=== PATIENT | female | born 1945 | race Caucasian/White ===

== ENCOUNTER 2017-09-23 07:07 | Inpatient (IN) | payer OTHER ==
[2017-09-23 07:35] VITALS: BMI 28.3
--- NOTE | 2017-09-23 07:44 | PDOC ---
Attending Attestation - Resident Resident Name: Kip Manzanares - HPI HPI: 09/25/17 19:36 Pt presents to the ED complaining of a one day history of substernal chest pain that is made worse by movement of her arms or torso. Denies shortness of breath. Extensive cardiac history as described above. - Physicial Exam PE: 09/25/17 19:39 Agree with resident exam. Pain is reproduced with movement of the arms. Lungs are clear. - Medical Decision Making 09/25/17 19:39 Pt presents to the ED complaining of chest pain. Extensive cardiac history. EKG shows no evidence of ischemia. Pain may be muscular, but given her cardaic history, will admit to medicine for observation and serial enzymes.
[2017-09-23] MEDS ORDERED: SODIUM CHLORIDE 1,000 ML IV STA (08:27)
--- NOTE | 2017-09-23 08:32 | PDOC ---
History of Present Illness - General Chief Complaint: Chest Pain Stated Complaint: CHEST & BACK PAIN Time Seen by Provider: 09/23/17 07:44 - History of Present Illness Initial Comments: 09/23/17 08:24 72 yo F with h/o HTN, HLD, CVA, Cardiac pacemaker placement ( 2010), and A-fib ( on Eliquis and Plavix) who presents with chest and back pain. Patient reports onset of worsening, unremitting, retrosternal and left sided chest pressure/ tightness beginning 0900 yesterday AM ( 09/22) while sitting down watching television. Associated with SOB, lightheadedness, fatigue, and nausea w/out vomiting. Pain radiates to intrascapular region, neck, and jaw. Aggravated with deep inhalation. Attempted analgesia with Tylenol, with no relief. Recently recovering from GI type illness/diarrhea with multiple loose watery stools since Wednesday (09/17). Denies palpitation, diaphoresis, fevers/chills, cough, wheezing, LOC, lightheadedness, acute weakness, urinary complaints, blood per rectum, abdominal pain. Allergic to Diclofenac, Penicillin, ASA. No h/o cardiac stent or CABG. PCP Dr. Sony Johnson. Dehydrator Tender Nazario. EKG (08/14/14) Atrial paced rhythm with LBBB. Past History - Past Medical History Allergies/Adverse Reactions: Allergies Allergy/AdvReac Type Severity Reaction Status Date / Time aspirin Allergy Severe Verified 09/23/17 07:32 Penicillins Allergy Severe Verified 09/23/17 07:32 diclofenac Allergy Verified 09/23/17 07:32 shellfish derived Allergy Verified 09/23/17 07:32 iv contrast Allergy Uncoded 09/23/17 07:32 Home Medications: Ambulatory Orders Apixaban [Eliquis] 5 mg PO BID 09/23/17 Carvedilol 25 mg PO DAILY 09/23/17 Clopidogrel Bisulfate [Clopidogrel] 75 mg PO DAILY 09/23/17 Irbesartan [Avapro (Nf) -] 300 mg PO DAILY 09/23/17 Linagliptin/Metformin HCl [Jentadueto 2.5 mg-1000 mg Tab] 1 each PO DAILY Nifedipine [Adalat cc] 60 mg PO DAILY 09/23/17 Cardiac Disorders: Yes (PACEMAKER, AAA 5CM, AFIB) CVA: Yes (RIGHT ARM AND LEG WEAKNESS RESIDUAL) COPD: No Diabetes: Yes 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 No weakness. HEAD, EYES, EARS, NOSE AND THROAT: No change in vision. No ear pain or discharge. No sore throat.- CARDIOVASCULAR: + chest pain and shortness of breath RESPIRATORY: No cough, wheezing, or hemoptysis. GASTROINTESTINAL:+ nausea, and diarrhea. No vomiting, constipation. GENITOURINARY: No dysuria, frequency, or change in urination. MUSCULOSKELETAL: + Chest, neck, and back pain No joint or muscle swelling. SKIN: No rash NEUROLOGIC: + lightheadedness. No headache, vertigo, loss of consciousness, or change in strength/sensation. ENDOCRINE: No increased thirst. No abnormal weight change HEMATOLOGIC/LYMPHATIC: No anemia, easy bleeding, or history of blood clots. ALLERGIC/IMMUNOLOGIC: No hives or skin allergy. *Physical Exam - Vital Signs Last Vital Signs Temp Pulse Resp BP Pulse Ox 98.4 F 64 20 155/60 98 09/23/17 07:32 09/23/17 07:32 09/23/17 07:32 09/23/17 07:32 09/23/17 07:32 - Physical Exam Comments: 09/23/17 08:39 GENERAL: Awake, alert, and fully oriented, in no acute distress HEAD: No signs of trauma, normocephalic, atraumatic EYES: PERRLA, EOMI, sclera anicteric, conjunctiva clear ENT: hearing grossly normal, nares patent, oropharynx clear without exudates. Moist mucosa NECK: Normal ROM, supple, no lymphadenopathy, JVD, or masses LUNGS: No distress, speaks full sentences, clear to auscultation bilaterally HEART: Regular rate and rhythm, normal S1 and S2, no murmurs, rubs or gallops, peripheral pulses normal and equal bilaterally. ABDOMEN: Soft, nontender, normoactive bowel sounds. No guarding, no rebound. No masses EXTREMITIES : Slight 1 + pitting edema BL LE. L sided shoulder pain with active and passive ROM. Normal inspection, Normal range of motion, No clubbing or cyanosis. NEUROLOGICAL: Baseline L UE/LE gross motor weakness. (1/5). Cranial nerves II through XII grossly intact. Normal speech, normal gait. SKIN: Warm, Dry, normal turgor, no rashes or lesions noted. Heart Score/ECG Review - History History: Slightly suspicious - Electrocardiogram EKG: Non specific repolarization disturbance - Age Age: >/= 65 - Risk Factors Risk Factors Heart Score: Yes Hx Hypercholesterolemia, Yes Hx Hypertension, Yes Hx Diabetes, Yes Positive family hx of cardiac disease, Yes Hx Obesity Based on the list above the patient has:: >/=3 risk factors or Hx atherosclerotic disease - Troponin Troponin: </= normal limit - Score Heart Score - Total: 5 - ECG Impressions Normal ECG: No ED Treatment Course - LABORATORY CBC & Chemistry Diagram: 09/23/17 09:00 09/23/17 09:00 - RADIOLOGY Radiology Studies Ordered: Category Date Time Status CXRPORT [CHEST X-RAY PORTABLE*] [RAD] Stat Radiology 09/23/17 08:24 Ordered Medical Decision Making - Medical Decision Making 09/23/17 08:40 72 yo F with h/o HTN, HLD, CVA, Cardiac pacemaker placement ( 2010), and A-fib ( on Eliquis and Plavix) who acute onset of worsening, unremitting, retrosternal and left sided chest pressure/tightness beginning 0900 yesterday AM ( 09/22) while sitting down watching television. Associated with SOB, lightheadedness, fatigue, and nausea w/out vomiting. Pain radiates to intrascapular region, neck, and jaw. Aggravated with deep inhalation. No other asx. complaints. Denies palpitation, diaphoresis, fevers/chills. Physical exam reveals hemodynamic stability and left shoulder pain elicited with active and passive ROM. No h/o cardiac stent or CABG. Will obtain caridac eval to r/o ACS /AL. Pain reproducible with MSK component. ED Course: 09/23/17 08:55 CBC: Unremarkable. Trop Neg BNP: 842 UA: Neg EKG (08/14/14) Atrial paced rhythm with LBBB. CXR: No acute cardiopulmonary pathology. EKG: Atrial paced rhtyhm with no signs of RICARDO, STD, T wave inversion with LBBB. 09/23/17 09:[address] Lange. He believes pain is likely MSK, but will admit for Tele/Obs for 09/23/17 10:[address] Goddard ( admitting for Dr. Sony Johnson). We will admit to Tele/ Obs. 09/23/17 10:06 2 gm IV Morphine, 1 L NS, 4 mg Zofran Heart Score 5 with 13 % Risk MACE. *DC/Admit/Observation/Transfer Diagnosis at time of Disposition: Chest pain at rest - Discharge Dispostion Condition at time of disposition: Stable Admit: Yes - Referrals Referrals: Sony Johnson MD [Primary Care Provider] - - Patient Instructions - Post Discharge Activity
--- NOTE | 2017-09-23 09:10 | CON.CARD ---
Cardiology Consult (text) - Consultation Consultation Note: Cardiology Consult Dictated IMP: Chronic HTN DM Prior CVA PAF , PPM Moderate renal artery stenosis Probable musculoskeletal chest pain REC: Pain is primarily right scapula, worse with positional change and manipulation of the right arm. ?muscle strain vs tendonopathy? Doubt cardiac. -Will cycle cardiac enzymes and check echo -Continue home BP meds. -Work up of likely MSK arm/shoulder pain as per PMD
[2017-09-23] MEDS ORDERED: morphine CARPU-JECT 2 MG/1 ML DISP.SYRIN IVPUSH ONE ×2 (09:14→10:46)
[2017-09-23] MEDS ORDERED: morphine SULFATE 4 MG/ML VIAL ONE ×3 (09:34→22:10)
[2017-09-23 09:40] LABS: ALBUMIN 3.5 g/dl (3.4-5.0); ANION GAP 9 (8-16); CALCIUM 8.7 mg/dL (8.5-10.1); CO2 24 mmol/L (21-32); CREATININE 1.1 mg/dL (0.55-1.02); GLUCOSE,RANDOM 139 mg/dL (74-106)
[2017-09-23 09:43] LABS: BASOPHIL 0.6 % (0-2.0); EOSINOPHIL 0.3 % (0-4.5); MCH 30.3 pg (25.7-33.7); MCHC 33.2 g/dl (32.0-36.0); MEAN CELL VOLUME 91.2 fl (80-96); MEAN PLT VOLUME 8.4 fl (7.5-11.1); NEUTROPHILS 65.5 % (42.8-82.8); PLATELET COUNT 260 K/MM3 (134-434); RDW 13.2 % (11.6-15.6); WHITE BLOOD COUNT 9.8 K/mm3 (4.0-10.0)
[2017-09-23 09:44] LABS: CPK 87 IU/L (26-192); TROPONIN I < 0.02 ng/ml (0.00-0.05)
--- NOTE | 2017-09-23 09:49 | CONS ---
DATE OF CONSULTATION: 09/23/2017 REQUESTING PHYSICIAN: Adry Sosa MD, in the ER. HISTORY OF PRESENT ILLNESS: The patient is a 72-year-old female known to me from the office with a complicated past medical history, including hypertension, moderate renal artery stenosis, diabetes, prior CVA, paroxysmal atrial fibrillation, on Eliquis, with a permanent pacemaker. She comes to the emergency room with several hours of right-sided scapular pain worse with positional movement, lifting the arm, and with deep breathing. It began last night when she woke up feeling her right arm stuck underneath her while asleep. In the emergency department, blood pressure was 155/60, oxygen saturation 98 on room air. She denies nausea, vomiting, or diaphoresis. She denies any recent exertional anginal symptoms. She denies palpitations or syncope. PAST MEDICAL HISTORY: Is as above. ALLERGIES: She is allergic to PENICILLIN, ASPIRIN, and SHELLFISH. HOME MEDICATIONS: Include Prilosec, Procardia, metformin, Jentadueto, irbesartan, Plavix 75 mg daily, carvedilol and Eliquis, Lipitor. FAMILY HISTORY: Noncontributory. SOCIAL HISTORY: Nonsmoker. PHYSICAL EXAMINATION: General: No acute distress. Vital Signs: Afebrile, temperature 98.4, pulse 64, paced rhythm, no acute EKG changes, blood pressure 155/60, O2 saturation 98 on room air, pulses 2+ and symmetric bilaterally. Neck: No carotid bruits. Heart: S1, 2 regular. Chest: Clear. No rales or wheezing. Abdomen: Soft. Extremities: Edema 1+ bilaterally. IMAGING: Chest x-ray showed no infiltrates. LABORATORIES: Currently pending, including troponin. IMPRESSION: 1. Hypertension. 2. Moderate renal artery stenosis. 3. Chronic diabetes. 4. Prior cerebrovascular accident. 5. Paroxysmal atrial fibrillation, on Eliquis, history of pacemaker. 6. Atypical chest pain, shoulder pain - probably musculoskeletal. PLAN: 1. Serial cardiac enzymes and echocardiogram to rule out pericardial effusion. 2. Continue home blood pressure medications. 3. Workup of likely musculoskeletal pain as per PMD. The pain is certainly reproducible on exam with manipulation of the shoulder causing pain in the shoulder and behind the shoulder blade and also radiating anteriorly. This may be a muscle pull or some sort of tendinopathy; trial of NSAIDs and imaging as per PMD. Will follow. Sean DAWSON/[id number]
[2017-09-23 09:51] LABS: ALK PHOS 100 U/L (45-117); BILIRUBIN,TOTAL 0.6 mg/dL (0.2-1.0); SGPT/ALT 22 U/L (12-78); TOT PROT 7.1 g/dl (6.4-8.2)
[2017-09-23 09:52] LABS: SGOT/AST 18 U/L (15-37)
[2017-09-23 09:52] LABS: URINE APPEARANCE CLEAR; URINE BILIRUBIN NEGATIVE (NEGATIVE); URINE BLOOD NEGATIVE (NEGATIVE); URINE COLOR STRAW; URINE GLUCOSE (UA) NEGATIVE (NEGATIVE); URINE KETONE NEGATIVE (NEGATIVE); URINE NITRITE NEGATIVE (NEGATIVE); URINE PROTEIN NEGATIVE (NEGATIVE); URINE UROBILINOGEN NEGATIVE mg/dL (0.2-1.0)
[2017-09-23 10:09] LABS: INR 1.41 (0.82-1.09); PROTHROMBIN TIME (PATIENT) 15.9 SEC (9.98-11.88)
--- NOTE | 2017-09-23 11:05 | EKG ---
Test Reason : Blood Pressure : / mmHG Vent. Rate : 063 BPM Atrial Rate : 063 BPM P-R Int : 188 ms QRS Dur : 134 ms QT Int : 426 ms P-R-T Axes : 005 012 065 degrees QTc Int : 435 ms Atrial-paced rhythm LEFT BUNDLE BRANCH BLOCK ABNORMAL ECG WHEN COMPARED WITH ECG OF 14-AUG-2014 16:34, LEFT BUNDLE BRANCH BLOCK HAS REPLACED INCOMPLETE LEFT BUNDLE BRANCH BLOCK Confirmed by MONET EMERSON, KE ([id number]) on 09/23/2017 11:05:07 AM Referred By: Confirmed By:KE HEALY MD
[2017-09-23 16:37] LABS: URINE LEUK ESTERASE Negative (NEGATIVE)
[2017-09-23] MEDS ORDERED: morphine SULFATE 4 MG/ML VIAL IVPUSH ONE (22:00)
[2017-09-23] MEDS: APIXABAN 5 MG TABLET PO SCH (22:07)
[2017-09-23] MEDS ORDERED: dilTIAZem HCL 50 MG/10 ML - 10 ML VIAL IVPUSH ONE (22:13)
[2017-09-23] MEDS ORDERED: dilTIAZem HCL 60 MG TABLET (FP) PO SCH (22:15)
[2017-09-23] MEDS ORDERED: ACETAMINOPHEN 325 MG TABLET (FP) ONE (22:19)
--- NOTE | 2017-09-23 22:26 | HP ---
Admitting History and Physical - Admission History of Present Illness: Pt is a 72 y/o female w/ PMH significant for HTN, HLD, CVA, pacemaker placement , A-fib and diabetes. Pt presented to the ER with chest and back pain. Patient reports onset of worsening, unremitting, retrosternal and left sided chest pressure/tightness w/ an intensity of 7/10 while at rest. This was accompanied w/ weakness and SOB. Pt denies any fever/chills/cough. The pain is pleuritic and radiates to her rt shoulder. 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 Cardiovascular: Yes: AFIB, HTN, Hyperlipdemia Endocrine: Yes: Diabetes Mellitus - Past Surgical History Past Surgical History: Yes: None - Smoking History Smoking history: Never smoked - Alcohol/Substance Use Hx Alcohol Use: No Home Medications - Allergies Allergies/Adverse Reactions: Allergies Allergy/AdvReac Type Severity Reaction Status Date / Time aspirin Allergy Severe Verified 09/23/17 07:32 Penicillins Allergy Severe Verified 09/23/17 07:32 diclofenac Allergy Verified 09/23/17 07:32 shellfish derived Allergy Verified 09/23/17 07:32 lactose AdvReac Verified 09/24/17 08:53 iv contrast Allergy Uncoded 09/23/17 07:32 - Home Medications Home Medications: Ambulatory Orders Apixaban [Eliquis] 5 mg PO BID 09/23/17 Carvedilol 25 mg PO DAILY 09/23/17 Clopidogrel Bisulfate [Clopidogrel] 75 mg PO DAILY 09/23/17 Irbesartan [Avapro (Nf) -] 300 mg PO DAILY 09/23/17 Linagliptin/Metformin HCl [Jentadueto 2.5 mg-1000 mg Tab] 1 each PO DAILY Nifedipine [Adalat cc] 60 mg PO DAILY 09/23/17 Family Disease History - Family Disease History Family History: Unremarkable Review of Systems - Review of Systems Eyes: reports: No Symptoms HENT: reports: No Symptoms Neck: reports: No Symptoms Cardiovascular: reports: Chest Pain Respiratory: reports: SOB Gastrointestinal: reports: No Symptoms Genitourinary: reports: No Symptoms Physical Examination Vital Signs: Vital Signs Temperature 98.2 F 09/23/17 16:15 Pulse Rate 72 09/23/17 16:15 Respiratory Rate 18 09/23/17 19:35 Blood Pressure 144/68 09/23/17 16:15 O2 Sat by Pulse Oximetry (%) 95 09/23/17 20:16 Constitutional: Yes: No Distress Eyes: Yes: WNL HENT: Yes: WNL Neck: Yes: WNL, Supple Cardiovascular: Yes: WNL, Regular Rate and Rhythm Respiratory: Yes: WNL, Regular, CTA Bilaterally Gastrointestinal: Yes: WNL, Normal Bowel Sounds, Soft Breast(s): Yes: WNL Musculoskeletal: Yes: WNL Extremities: Yes: WNL Edema: No Neurological: Yes: WNL, Alert, Oriented ...Motor Strength: WNL Labs: CBC, BMP 09/23/17 09:00 09/23/17 09:00 Problem List - Problems (1) Chest pain Assessment/Plan: Admitted to tele Serial cpk/troponin to r/o ACS ASA/statin Check echo As per cardio consult Code(s): R07.9 - CHEST PAIN, UNSPECIFIED (2) Afib Assessment/Plan: Heart rate controlled Cont coreg/eliquis Plavix as per cardio Code(s): I48.91 - UNSPECIFIED ATRIAL FIBRILLATION (3) HTN (hypertension) Assessment/Plan: BP stable Cont losartan/coreg/ Code(s): I10 - ESSENTIAL (PRIMARY) HYPERTENSION (4) Diabetes Assessment/Plan: Cont metformin Cont sliding scale w/ coverge Code(s): E11.9 - TYPE 2 DIABETES MELLITUS WITHOUT COMPLICATIONS (5) HLD (hyperlipidemia) Code(s): E78.5 - HYPERLIPIDEMIA, UNSPECIFIED
--- NOTE | 2017-09-23 22:27 | HOSP ---
Subjective - Review of Symptoms Events since last encounter: Called to see 72 yo F with h/o HTN, HLD, CVA, Cardiac pacemaker placement ( 2010 ), and A-fib ( on Eliquis and Plavix) who presented with chest and back pain, now c/o of chest pain. Pt was seen by Product Development Carpenter and thought to have likely musculoskeletal pain. Patient now having non radiating retrosternal pain, with palpitations. While patient was being seen she was noted to have Tmax of 101 Vital Signs Temperature 98.2 F 09/23/17 16:15 Pulse Rate 72 09/23/17 16:15 Respiratory Rate 18 09/23/17 19:35 Blood Pressure 144/68 09/23/17 16:15 O2 Sat by Pulse Oximetry (%) 95 09/23/17 20:16 Gen: Awake, alert, oriented Neck: No JVP Heart: Reproducible chest pain. Tachycardic, S1, S2 Chest: Clear Abd: Soft non tender Extremities: No pedal edema Assessment and plan: EKG- stat-Ordered by Product Development Carpenter- shows afib with RVR in 142, in back ground of old changes Cardizem 60mg PO- ordered by cause analyst Iv cardizem 5mg-stat CXR- stat UA, Urine culture Blood culture, Lactic acid Cardiac enzymes-just drawn Monitor vitals tabs tyenol-given . Physical Examination Vital Signs: Vital Signs Temperature 98.2 F 09/23/17 16:15 Pulse Rate 72 09/23/17 16:15 Respiratory Rate 18 09/23/17 19:35 Blood Pressure 144/68 09/23/17 16:15 O2 Sat by Pulse Oximetry (%) 95 09/23/17 20:16 Labs: CBC, BMP 09/23/17 09:00 09/23/17 09:00 Visit type - Emergency Visit Emergency Visit: Yes ED Registration Date: 09/23/17 Care time: The patient presented to the Emergency Department on the above date and was hospitalized for further evaluation of their emergent condition. - New Patient This patient is new to me today: Yes Date on this admission: 09/23/17 - Critical Care Critical Care patient: No
[2017-09-23 22:29] LABS: CPK 68 IU/L (26-192); TROPONIN I < 0.02 ng/ml (0.00-0.05)
[2017-09-23] MEDS: ACETAMINOPHEN 325 MG TABLET (FP) PO PRN (22:30)
[2017-09-23] MEDS: INSULIN SLIDING SCALE (NOVOLOG) 1 VIAL SQ SCH (23:30)
[2017-09-24] MEDS: dilTIAZem HCL 60 MG TABLET (FP) PO SCH ×5 (00:01→18:31)
[2017-09-24 00:26] LABS: URINE APPEARANCE CLEAR; URINE BILIRUBIN NEGATIVE (NEGATIVE); URINE BLOOD 1+ (NEGATIVE); URINE COLOR STRAW; URINE GLUCOSE (UA) NEGATIVE (NEGATIVE); URINE KETONE NEGATIVE (NEGATIVE); URINE NITRITE NEGATIVE (NEGATIVE); URINE PROTEIN NEGATIVE (NEGATIVE); URINE UROBILINOGEN NEGATIVE mg/dL (0.2-1.0)
[2017-09-24 00:40] LABS: URINE RBC < 1; URINE WBC 3
[2017-09-24] MEDS: INSULIN SLIDING SCALE (NOVOLOG) 1 VIAL SQ SCH ×4 (06:14→21:46)
--- NOTE | 2017-09-24 08:59 | PN ---
Progress Note, Physician Chief Complaint: febrile to 102F last night w/ rapid AF and chest discomfort in that setting - Current Medication List Current Medications: Active Medications Acetaminophen (Tylenol -) 650 mg PO Q6H PRN PRN Reason: FEVER OR PAIN Last Admin: 09/23/17 22:30 Dose: 650 mg Apixaban (Eliquis -) 5 mg PO BID [facility] Last Admin: 09/23/17 22:07 Dose: 5 mg Carvedilol (Coreg -) 25 mg PO DAILY [facility] Diltiazem HCl (Cardizem -) 60 mg PO Q6HPO [facility] Last Admin: 09/24/17 06:14 Dose: Not Given Insulin Aspart (Novolog Vial Sliding Scale -) 1 vial SQ ACHS [facility] PRN Reason: Protocol Last Admin: 09/24/17 06:14 Dose: Not Given Losartan Potassium (Losartan Potassium) 100 mg PO DAILY [facility] Non-Formulary Medication (Linagliptin/Metformin Hcl [Jentadueto 2.5 Mg-1000 Mg Tab]) 1 each PO DAILY [facility] - Objective Vital Signs: Vital Signs Temperature 98.8 F 09/24/17 05:28 Pulse Rate 89 09/24/17 05:28 Respiratory Rate 20 09/24/17 05:28 Blood Pressure 126/62 09/24/17 05:28 O2 Sat by Pulse Oximetry (%) 95 09/24/17 05:28 Constitutional: Yes: Calm Eyes: Yes: Conjunctiva Clear Cardiovascular: Yes: Pulse Irregular Respiratory: Yes: CTA Bilaterally Gastrointestinal: Yes: Soft Edema: No Neurological: Yes: Alert, Oriented Labs: CBC, BMP 09/23/17 09:00 09/23/17 09:00 INR, PTT INR 1.41 (0.82-1.09) H 09/23/17 09:00 - ....Imaging Chest X-ray: Image Reviewed EKG: Image Reviewed (TELE: AF with short periods of RVR, paced) Assessment/Plan IMP: Fever Chronic HTN DM Prior CVA PAF , PPM Moderate renal artery stenosis Chest discomfort in setting of fever, AF w/ RVR REC: -cultures -ID consult -CT chest without contrast to r/o infiltrate not seen on CXR -Continue Eliquis and Cardizem for rate control
[2017-09-24 09:14] LABS: URINE LEUK ESTERASE Negative (NEGATIVE)
[2017-09-24] MEDS ORDERED: PT OWN MED DRAWER 7, Y5N ONE (09:31)
[2017-09-24] MEDS ORDERED: NIFEdipine E.R 60 MG TABLET (UD) PO SCH (10:00)
[2017-09-24] MEDS ORDERED: PATIENT'S OWN MEDICATION (NON-FORMULARY) (Linagliptin/Metformin Hcl [Jentadueto 2.5 Mg-100 PO SCH (10:00)
[2017-09-24] MEDS: CARVEDILOL 25 MG TABLET (FP) PO SCH (10:29)
[2017-09-24] MEDS: LOSARTAN POTASSIUM 100 MG TABLET PO SCH (10:29)
[2017-09-24] MEDS: APIXABAN 5 MG TABLET PO SCH ×2 (10:29→21:42)
[2017-09-24] MEDS ORDERED: CEFTRIAXONE 1 GM in DEXTROSE 5%-WATER - 50 ML IVPB SCH (11:15)
[2017-09-24] MEDS ORDERED: INSULIN (NOVOLOG) ASPART 100 UNITS/ML 10ML VIAL ONE (11:43)
[2017-09-24] MEDS: CLOPIDOGREL BISULFATE 75 MG TABLET (FP) PO SCH (11:46)
[2017-09-24] MEDS: LEVOFLOXACIN 500 MG IVPB 500 MG/100 ML BAG IVPB SCH (11:46)
[2017-09-24 12:10] LABS: BASOPHIL 0.5 % (0-2.0); EOSINOPHIL 1.2 % (0-4.5); MCHC 32.7 g/dl (32.0-36.0); MEAN CELL VOLUME 91.6 fl (80-96); MEAN PLT VOLUME 7.9 fl (7.5-11.1); PLATELET COUNT 221 K/MM3 (134-434); RDW 13.2 % (11.6-15.6); WHITE BLOOD COUNT 7.7 K/mm3 (4.0-10.0)
[2017-09-24 12:44] LABS: ALBUMIN 3.1 g/dl (3.4-5.0); ANION GAP 11 (8-16); BILIRUBIN,TOTAL 0.5 mg/dL (0.2-1.0); CALCIUM 8.7 mg/dL (8.5-10.1); CO2 22 mmol/L (21-32); CREATININE 1.1 mg/dL (0.55-1.02); GLUCOSE,RANDOM 115 mg/dL (74-106); SGOT/AST 12 U/L (15-37); SGPT/ALT 17 U/L (12-78); TOT PROT 6.9 g/dl (6.4-8.2)
[2017-09-24 12:45] LABS: ALK PHOS 90 U/L (45-117)
[2017-09-24] MEDS: PANTOPRAZOLE 40 MG TABLET (FP) PO SCH (13:30)
--- NOTE | 2017-09-24 15:52 | PN ---
Progress Note (short form) - Note Progress Note: ID Consult dictated Chest pain syndrome Fever ? viral syndrome ? Early PNA Major PCN allergy Await c/s Empiric levaquin
--- NOTE | 2017-09-24 18:37 | CONS ---
DATE OF CONSULTATION: HISTORY: The patient is a 72-year-old female evaluated for fever. She was admitted to the hospital on September 22, 2017 with chest pain syndrome. She was seen in consultation by Cardiology. The feeling is that her chest pain is most likely musculoskeletal and not cardiac in origin. Her hospital course has been complicated by high-grade fever and rapid atrial fibrillation. The patient continues to complain of chest discomfort described as retrosternal with radiation to the neck and scapular areas bilaterally. She denied any shortness of breath or cough. No recent febrile illness. No known ill contacts. She is up to date with regard to influenza and pneumococcal vaccines. She has had no recent hospitalizations. She is originally from the [facility] [place] living here for 13 years. She last travelled back to the [place] this past summer. She denies any purulent sputum production of hemoptysis. PAST MEDICAL HISTORY: Positive for stroke with right hemiparesis, hypertension, hypokalemia, paroxysmal atrial fibrillation, renal artery stenosis. PAST SURGICAL HISTORY: Status post permanent pacemaker. ALLERGIES: PENICILLIN. The patient reports developing throat swelling with PENICILLIN. She is also allergic to ASPIRIN and DICLOFENAC. SOCIAL HISTORY: As per HPI. She is a nonsmoker, nondrinker. SYSTEMS REVIEW: Neurologic: Positive for stroke, right hemiparesis. Cardiac: As per HPI. Respiratory: As per HPI. Gastrointestinal: Positive for recent diarrhea, which has resolved and a history of Helicobacter pylori. Genitourinary: Negative for urinary tract infection. LABORATORY DATA: White count 7.7 with 12% monocytes, hematocrit 35.1, platelet count 221, BUN 12, creatinine 1.1. Liver enzymes normal. Urinalysis: 3 white cells. CAT scan reviewed shows some increased markings at the bases bilaterally left greater than right, possible early infiltrate versus atelectasis. Cultures are pending. PHYSICAL EXAMINATION: General: She is awake and alert. She is in no acute distress. Her brought is nonlabored. She is not acutely toxic appearing. Vital Signs: Temperature 97.6, blood pressure 117/55, pulse 61 and regular, respirations 20 per minute, T-max 102 per chart. HEENT: Sclerae anicteric. Heart: Sounds irregular S1, S2. Lungs: Fine crepitations at the bases bilaterally. No rhonchi or wheezing. Abdomen: Soft. No tenderness elicited. No mass, rebound, or rigidity. Extremities: Have 1+ edema. Right hemiparesis. There is an area of hyperpigmentation along the lateral aspect of the left thigh of unclear etiology. IMPRESSION: 1. Chest pain syndrome. 2. Fever, possible viral syndrome versus early pneumonia. 3. History of major PENICILLIN allergy (throat swelling). PLAN: Await cultures. Obtain sputum culture, urine Legionella, and pneumococcal antigens. Empiric antibiotic coverage in this PENICILLIN allergic patient with Levaquin. Case discussed with family members present at the time of the examination. Thank you for the kind referral. INO MCNAMARA M.D. [id number]
[2017-09-24 22:21] LABS: TROPONIN I 1.44 ng/ml (0.00-0.05)
--- NOTE | 2017-09-24 22:55 | PN ---
Progress Note, Physician History of Present Illness: Pt was tachy and spiked a temp to 102 - Current Medication List Current Medications: Active Medications Acetaminophen (Tylenol -) 650 mg PO Q6H PRN PRN Reason: FEVER OR PAIN Last Admin: 09/23/17 22:30 Dose: 650 mg Apixaban (Eliquis -) 5 mg PO BID [facility] Last Admin: 09/24/17 21:42 Dose: 5 mg Carvedilol (Coreg -) 25 mg PO DAILY [facility] Last Admin: 09/24/17 10:29 Dose: 25 mg Clopidogrel Bisulfate (Plavix -) 75 mg PO DAILY [facility] Last Admin: 09/24/17 11:46 Dose: 75 mg Diltiazem HCl (Cardizem -) 60 mg PO Q6HPO [facility] Last Admin: 09/24/17 18:31 Dose: 60 mg Levofloxacin (Levaquin 500 Mg Premixed Ivpb -) 500 mg in 100 mls @ 100 mls/hr IVPB DAILY [facility] Last Admin: 09/24/17 11:46 Dose: 100 mls/hr Insulin Aspart (Novolog Vial Sliding Scale -) 1 vial SQ ACHS [facility] PRN Reason: Protocol Last Admin: 09/24/17 21:46 Dose: Not Given Losartan Potassium (Losartan Potassium) 100 mg PO DAILY [facility] Last Admin: 09/24/17 10:29 Dose: 100 mg Metformin HCl (Glucophage -) 1,000 mg PO DAILY@0700 [facility] Pantoprazole Sodium (Protonix -) 40 mg PO DAILY [facility] Last Admin: 09/24/17 13:30 Dose: 40 mg Sitagliptin Phosphate (Januvia -) 50 mg PO DAILY@0700 [facility] - Objective Vital Signs: Vital Signs Temperature 98.8 F 09/24/17 17:00 Pulse Rate 61 09/24/17 17:00 Respiratory Rate 18 09/24/17 17:00 Blood Pressure 121/72 09/24/17 17:00 O2 Sat by Pulse Oximetry (%) 95 09/24/17 10:00 Constitutional: Yes: No Distress Neck: Yes: WNL Cardiovascular: Yes: Pulse Irregular Respiratory: Yes: WNL, Regular, CTA Bilaterally Gastrointestinal: Yes: WNL, Normal Bowel Sounds, Soft Labs: CBC, BMP 09/24/17 12:06 09/24/17 12:06 INR, PTT INR 1.41 (0.82-1.09) H 09/23/17 09:00 Problem List - Problems (1) Chest pain Assessment/Plan: Troponin was elevated Cont to monitor troponin Cont eliquis As per cardio Code(s): R07.9 - CHEST PAIN, UNSPECIFIED (2) Fever Assessment/Plan: Blood cultures/urine cultures Started IV levaquin empirically WBC has been normal Code(s): R50.9 - FEVER, UNSPECIFIED (3) Afib Assessment/Plan: Heart rate elevated Cardizem was started Cont coreg/eliquis Code(s): I48.91 - UNSPECIFIED ATRIAL FIBRILLATION (4) Diabetes Assessment/Plan: Cont metformin Cont sliding scale w/ coverge Code(s): E11.9 - TYPE 2 DIABETES MELLITUS WITHOUT COMPLICATIONS (5) HTN (hypertension) Assessment/Plan: BP stable Cont losartan/coreg/ Code(s): I10 - ESSENTIAL (PRIMARY) HYPERTENSION (6) HLD (hyperlipidemia) Code(s): E78.5 - HYPERLIPIDEMIA, UNSPECIFIED
[2017-09-25] MEDS: dilTIAZem HCL 60 MG TABLET (FP) PO SCH ×4 (00:56→17:44)
[2017-09-25] MEDS: INSULIN SLIDING SCALE (NOVOLOG) 1 VIAL SQ SCH ×4 (06:05→21:54)
[2017-09-25] MEDS: metFORMIN HCL 500 MG TABLET (FP) PO SCH (06:09)
[2017-09-25] MEDS: sitaGLIPtin PHOSPHATE 25 MG TABLET (FP) PO SCH (06:09)
[2017-09-25 06:35] LABS: MCH 30.7 pg (25.7-33.7); MCHC 33.6 g/dl (32.0-36.0); MEAN CELL VOLUME 91.4 fl (80-96); MEAN PLT VOLUME 8.7 fl (7.5-11.1); PLATELET COUNT 224 K/MM3 (134-434); RDW 13.2 % (11.6-15.6); WHITE BLOOD COUNT 6.8 K/mm3 (4.0-10.0)
[2017-09-25 07:11] LABS: ALBUMIN 2.7 g/dl (3.4-5.0); ANION GAP 9 (8-16); CALCIUM 8.3 mg/dL (8.5-10.1); CO2 23 mmol/L (21-32); CREATININE 1.1 mg/dL (0.55-1.02); GLUCOSE,RANDOM 134 mg/dL (74-106); SGOT/AST 12 U/L (15-37); SGPT/ALT 13 U/L (12-78)
[2017-09-25 07:26] LABS: ALK PHOS 74 U/L (45-117); BILIRUBIN,TOTAL 0.5 mg/dL (0.2-1.0); CPK 125 IU/L (26-192); TOT PROT 5.9 g/dl (6.4-8.2)
[2017-09-25 07:30] LABS: TROPONIN I 1.01 ng/ml (0.00-0.05)
--- NOTE | 2017-09-25 08:53 | PN ---
Progress Note, Physician History of Present Illness: 72 yo F with h/o HTN, HLD, CVA, Cardiac pacemaker placement ( 2010), and A-fib ( on Eliquis and Plavix) who presents with chest and back pain. Patient reports onset of worsening, unremitting, retrosternal and left sided chest pressure/ tightness beginning 0900 yesterday AM ( 09/22) while sitting down watching television. Associated with SOB, lightheadedness, fatigue, and nausea w/out vomiting. Pain radiates to intrascapular region, neck, and jaw. Aggravated with deep inhalation. Attempted analgesia with Tylenol, with no relief. Recently recovering from GI type illness/diarrhea with multiple loose watery stools since Wednesday (09/17). Denies palpitation, diaphoresis, fevers/chills, cough, wheezing, LOC, lightheadedness, acute weakness, urinary complaints, blood per rectum, abdominal pain. Allergic to Diclofenac, Penicillin, ASA. No h/o cardiac stent or CABG. PCP Dr. Sony Johnson. Cosmetician Nazario. EKG (08/14/14) Atrial paced rhythm with LBBB. - Current Medication List Current Medications: Active Medications Acetaminophen (Tylenol -) 650 mg PO Q6H PRN PRN Reason: FEVER OR PAIN Last Admin: 09/23/17 22:30 Dose: 650 mg Apixaban (Eliquis -) 5 mg PO BID [facility] Last Admin: 09/24/17 21:42 Dose: 5 mg Carvedilol (Coreg -) 25 mg PO DAILY [facility] Last Admin: 09/24/17 10:29 Dose: 25 mg Clopidogrel Bisulfate (Plavix -) 75 mg PO DAILY [facility] Last Admin: 09/24/17 11:46 Dose: 75 mg Diltiazem HCl (Cardizem -) 60 mg PO Q6HPO [facility] Last Admin: 09/25/17 06:09 Dose: 60 mg Levofloxacin (Levaquin 500 Mg Premixed Ivpb -) 500 mg in 100 mls @ 100 mls/hr IVPB DAILY [facility] Last Admin: 09/24/17 11:46 Dose: 100 mls/hr Insulin Aspart (Novolog Vial Sliding Scale -) 1 vial SQ ACHS [facility] PRN Reason: Protocol Last Admin: 09/25/17 06:05 Dose: Not Given Losartan Potassium (Losartan Potassium) 100 mg PO DAILY [facility] Last Admin: 09/24/17 10:29 Dose: 100 mg Metformin HCl (Glucophage -) 1,000 mg PO DAILY@0700 [facility] Last Admin: 09/25/17 06:09 Dose: 1,000 mg Pantoprazole Sodium (Protonix -) 40 mg PO DAILY [facility] Last Admin: 09/24/17 13:30 Dose: 40 mg Sitagliptin Phosphate (Januvia -) 50 mg PO DAILY@0700 [facility] Last Admin: 09/25/17 06:09 Dose: 50 mg - Objective Vital Signs: Vital Signs Temperature 98.8 F 09/25/17 05:00 Pulse Rate 60 09/25/17 05:00 Respiratory Rate 20 09/25/17 05:00 Blood Pressure 132/52 09/25/17 05:00 O2 Sat by Pulse Oximetry (%) 95 09/25/17 02:00 Eyes: Yes: WNL, Conjunctiva Clear, EOM Intact HENT: Yes: WNL, Atraumatic, Normocephalic Neck: Yes: WNL, Supple, Trachea Midline Cardiovascular: Yes: WNL, Regular Rate and Rhythm Respiratory: Yes: WNL, Regular, CTA Bilaterally Gastrointestinal: Yes: WNL, Normal Bowel Sounds Genitourinary: Yes: WNL Musculoskeletal: Yes: WNL Extremities: Yes: WNL Edema: No Integumentary: Yes: WNL Neurological: Yes: WNL, Alert, Oriented ...Motor Strength: WNL Psychiatric: Yes: WNL Labs: CBC, BMP 09/25/17 05:00 09/25/17 05:00 INR, PTT INR 1.41 (0.82-1.09) H 09/23/17 09:00 Laboratory Tests 09/23/17 09/23/17 09/23/17 08:44 09:00 09:00 WBC 9.8 D RBC 4.04 Hgb 12.2 Hct 36.9 MCV 91.2 MCH 30.3 MCHC 33.2 RDW 13.2 Plt Count 260 D MPV 8.4 Neutrophils % 65.5 D Lymphocytes % 22.2 D Monocytes % 11.4 H Eosinophils % 0.3 Basophils % 0.6 PT with INR 15.90 H INR 1.41 H Sodium Potassium Chloride Carbon Dioxide Anion Gap BUN Creatinine Creat Clearance w eGFR POC Glucometer Random Glucose Lactic Acid Calcium Total Bilirubin AST ALT Alkaline Phosphatase Creatine Kinase 87 Troponin I < 0.02 B-Natriuretic Peptide 842.95 H Total Protein Albumin Urine Color Urine Appearance Urine pH Ur Specific [place] Urine Protein Urine Glucose (UA) Urine Ketones Urine Blood Urine Nitrite Urine Bilirubin Urine Urobilinogen Ur Leukocyte Esterase Urine WBC (Auto) Urine RBC (Auto) Ur Epithelial Cells 09/23/17 09/23/17 09/23/17 09:00 09:23 17:11 WBC RBC Hgb Hct MCV MCH MCHC RDW Plt Count MPV Neutrophils % Lymphocytes % Monocytes % Eosinophils % Basophils % PT with INR INR Sodium 139 Potassium 4.2 Chloride 106 Carbon Dioxide 24 Anion Gap 9 BUN 10 D Creatinine 1.1 H D Creat Clearance w eGFR 48.69 POC Glucometer Random Glucose 139 H Lactic Acid Calcium 8.7 Total Bilirubin 0.6 D AST 18 D ALT 22 Alkaline Phosphatase 100 Creatine Kinase Troponin I < 0.02 B-Natriuretic Peptide Total Protein 7.1 Albumin 3.5 Urine Color Straw Urine Appearance Clear Urine pH 5.0 D Ur Specific [place] 1.009 Urine Protein Negative Urine Glucose (UA) Negative Urine Ketones Negative Urine Blood Negative Urine Nitrite Negative Urine Bilirubin Negative Urine Urobilinogen Negative Ur Leukocyte Esterase Negative Urine WBC (Auto) Urine RBC (Auto) Ur Epithelial Cells 09/23/17 09/23/17 09/23/17 21:05 22:20 22:31 WBC RBC Hgb Hct MCV MCH MCHC RDW Plt Count MPV Neutrophils % Lymphocytes % Monocytes % Eosinophils % Basophils % PT with INR INR Sodium Potassium Chloride Carbon Dioxide Anion Gap BUN Creatinine Creat Clearance w eGFR POC Glucometer 119 Random Glucose Lactic Acid 1.2 Calcium Total Bilirubin AST ALT Alkaline Phosphatase Creatine Kinase 68 Troponin I < 0.02 B-Natriuretic Peptide Total Protein Albumin Urine Color Urine Appearance Urine pH Ur Specific [place] Urine Protein Urine Glucose (UA) Urine Ketones Urine Blood Urine Nitrite Urine Bilirubin Urine Urobilinogen Ur Leukocyte Esterase Urine WBC (Auto) Urine RBC (Auto) Ur Epithelial Cells 09/24/17 09/24/17 09/24/17 00:02 05:52 11:54 WBC RBC Hgb Hct MCV MCH MCHC RDW Plt Count MPV Neutrophils % Lymphocytes % Monocytes % Eosinophils % Basophils % PT with INR INR Sodium Potassium Chloride Carbon Dioxide Anion Gap BUN Creatinine Creat Clearance w eGFR POC Glucometer 139 103 Random Glucose Lactic Acid Calcium Total Bilirubin AST ALT Alkaline Phosphatase Creatine Kinase Troponin I B-Natriuretic Peptide Total Protein Albumin Urine Color Straw Urine Appearance Clear Urine pH 7.0 D Ur Specific [place] 1.004 Urine Protein Negative Urine Glucose (UA) Negative Urine Ketones Negative Urine Blood 1+ H Urine Nitrite Negative Urine Bilirubin Negative Urine Urobilinogen Negative Ur Leukocyte Esterase Negative Urine WBC (Auto) 3 Urine RBC (Auto) < 1 Ur Epithelial Cells Rare 09/24/17 09/24/17 09/24/17 12:06 12:06 16:54 WBC 7.7 RBC 3.83 Hgb 11.5 Hct 35.1 MCV 91.6 MCH 30.0 MCHC 32.7 RDW 13.2 Plt Count 221 MPV 7.9 Neutrophils % 56.0 Lymphocytes % 29.6 D Monocytes % 12.7 H Eosinophils % 1.2 D Basophils % 0.5 PT with INR INR Sodium 138 Potassium 3.9 Chloride 105 Carbon Dioxide 22 Anion Gap 11 BUN 12 Creatinine 1.1 H Creat Clearance w eGFR 48.69 POC Glucometer 144 Random Glucose 115 H Lactic Acid Calcium 8.7 Total Bilirubin 0.5 AST 12 L D ALT 17 D Alkaline Phosphatase 90 Creatine Kinase Troponin I B-Natriuretic Peptide Total Protein 6.9 Albumin 3.1 L Urine Color Urine Appearance Urine pH Ur Specific [place] Urine Protein Urine Glucose (UA) Urine Ketones Urine Blood Urine Nitrite Urine Bilirubin Urine Urobilinogen Ur Leukocyte Esterase Urine WBC (Auto) Urine RBC (Auto) Ur Epithelial Cells 09/24/17 09/24/17 09/25/17 20:35 21:38 05:00 WBC 6.8 RBC 3.46 L Hgb 10.6 L Hct 31.7 L MCV 91.4 MCH 30.7 MCHC 33.6 RDW 13.2 Plt Count 224 MPV 8.7 D Neutrophils % Lymphocytes % Monocytes % Eosinophils % Basophils % PT with INR INR Sodium Potassium Chloride Carbon Dioxide Anion Gap BUN Creatinine Creat Clearance w eGFR POC Glucometer 153 Random Glucose Lactic Acid Calcium Total Bilirubin AST ALT Alkaline Phosphatase Creatine Kinase 139 Troponin I 1.44 H* B-Natriuretic Peptide Total Protein Albumin Urine Color Urine Appearance Urine pH Ur Specific [place] Urine Protein Urine Glucose (UA) Urine Ketones Urine Blood Urine Nitrite Urine Bilirubin Urine Urobilinogen Ur Leukocyte Esterase Urine WBC (Auto) Urine RBC (Auto) Ur Epithelial Cells 09/25/17 09/25/17 05:00 05:48 WBC RBC Hgb Hct MCV MCH MCHC RDW Plt Count MPV Neutrophils % Lymphocytes % Monocytes % Eosinophils % Basophils % PT with INR INR Sodium 142 Potassium 4.1 Chloride 110 H Carbon Dioxide 23 Anion Gap 9 BUN 13 Creatinine 1.1 H Creat Clearance w eGFR 48.69 POC Glucometer 130 Random Glucose 134 H Lactic Acid Calcium 8.3 L Total Bilirubin 0.5 AST 12 L ALT 13 D Alkaline Phosphatase 74 Creatine Kinase 125 Troponin I 1.01 H* B-Natriuretic Peptide Total Protein 5.9 L Albumin 2.7 L Urine Color Urine Appearance Urine pH Ur Specific [place] Urine Protein Urine Glucose (UA) Urine Ketones Urine Blood Urine Nitrite Urine Bilirubin Urine Urobilinogen Ur Leukocyte Esterase Urine WBC (Auto) Urine RBC (Auto) Ur Epithelial Cells Problem List - Problems (1) Chest pain at rest Code(s): R07.9 - CHEST PAIN, UNSPECIFIED (2) Headache Code(s): R51 - HEADACHE (3) Weakness Code(s): R53.1 - WEAKNESS Assessment/Plan positive TNI's demand ischemia during af RVR ? underling CAD no CP Fever resolved Chronic HTN DM Prior CVA PAF , PPM Moderate renal artery stenosis Chest discomfort in setting of fever, AF w/ RVR - REC: -cont ac cont plavix /coreg abx rx as per ID cultures -ID consult -CT chest without contrast to r/o infiltrate not seen on CXR will jaron duplex to r/o dvt
[2017-09-25] MEDS: CARVEDILOL 25 MG TABLET (FP) PO SCH (11:14)
[2017-09-25] MEDS: APIXABAN 5 MG TABLET PO SCH ×2 (11:14→22:11)
[2017-09-25] MEDS: LEVOFLOXACIN 500 MG IVPB 500 MG/100 ML BAG IVPB SCH (11:14)
[2017-09-25] MEDS: LOSARTAN POTASSIUM 100 MG TABLET PO SCH (11:15)
[2017-09-25] MEDS: CLOPIDOGREL BISULFATE 75 MG TABLET (FP) PO SCH (11:15)
[2017-09-25] MEDS: PANTOPRAZOLE 40 MG TABLET (FP) PO SCH (11:15)
--- NOTE | 2017-09-25 23:46 | PN ---
Progress Note, Physician History of Present Illness: Pt remains afebrile - Current Medication List Current Medications: Active Medications Acetaminophen (Tylenol -) 650 mg PO Q6H PRN PRN Reason: FEVER OR PAIN Last Admin: 09/23/17 22:30 Dose: 650 mg Apixaban (Eliquis -) 5 mg PO BID [facility] Last Admin: 09/25/17 22:11 Dose: 5 mg Carvedilol (Coreg -) 25 mg PO DAILY [facility] Last Admin: 09/25/17 11:14 Dose: 25 mg Clopidogrel Bisulfate (Plavix -) 75 mg PO DAILY [facility] Last Admin: 09/25/17 11:15 Dose: 75 mg Diltiazem HCl (Cardizem -) 60 mg PO Q6HPO [facility] Last Admin: 09/25/17 17:44 Dose: 60 mg Levofloxacin (Levaquin 500 Mg Premixed Ivpb -) 500 mg in 100 mls @ 100 mls/hr IVPB DAILY [facility] Last Admin: 09/25/17 11:14 Dose: 100 mls/hr Insulin Aspart (Novolog Vial Sliding Scale -) 1 vial SQ ACHS [facility] PRN Reason: Protocol Last Admin: 09/25/17 21:54 Dose: Not Given Losartan Potassium (Losartan Potassium) 100 mg PO DAILY [facility] Last Admin: 09/25/17 11:15 Dose: 100 mg Metformin HCl (Glucophage -) 1,000 mg PO DAILY@0700 [facility] Last Admin: 09/25/17 06:09 Dose: 1,000 mg Pantoprazole Sodium (Protonix -) 40 mg PO DAILY [facility] Last Admin: 09/25/17 11:15 Dose: 40 mg Sitagliptin Phosphate (Januvia -) 50 mg PO DAILY@0700 [facility] Last Admin: 09/25/17 06:09 Dose: 50 mg - Objective Vital Signs: Vital Signs Temperature 98.4 F 09/25/17 20:00 Pulse Rate 60 09/25/17 20:00 Respiratory Rate 20 09/25/17 20:00 Blood Pressure 135/50 09/25/17 20:00 O2 Sat by Pulse Oximetry (%) 94 L 09/25/17 17:12 Constitutional: Yes: No Distress HENT: Yes: WNL Neck: Yes: WNL, Supple Cardiovascular: Yes: Pulse Irregular Respiratory: Yes: WNL, Regular, CTA Bilaterally Gastrointestinal: Yes: WNL, Normal Bowel Sounds, Soft Edema: No Labs: CBC, BMP 09/25/17 05:00 09/25/17 05:00 INR, PTT INR 1.41 (0.82-1.09) H 09/23/17 09:00 Problem List - Problems (1) Chest pain Assessment/Plan: Troponin remained elevated but trending down Cont to monitor troponin ?Demand ischemia Cont eliquis/plavix CT scan chest/Dopplers of lower extremities were done wc were negative for PE and no DVT's As per cardio Code(s): R07.9 - CHEST PAIN, UNSPECIFIED (2) Fever Assessment/Plan: Blood cultures/urine cultures remain negative Cont IV levaquin empirically WBC has been normal ID consult Code(s): R50.9 - FEVER, UNSPECIFIED (3) Afib Assessment/Plan: Heart rate controlled Cont coreg/eliquis/cardizem Code(s): I48.91 - UNSPECIFIED ATRIAL FIBRILLATION (4) Diabetes Assessment/Plan: Cont metformin Cont sliding scale w/ coverge Code(s): E11.9 - TYPE 2 DIABETES MELLITUS WITHOUT COMPLICATIONS (5) HLD (hyperlipidemia) Code(s): E78.5 - HYPERLIPIDEMIA, UNSPECIFIED (6) HTN (hypertension) Assessment/Plan: BP stable Cont losartan/coreg/ Code(s): I10 - ESSENTIAL (PRIMARY) HYPERTENSION
[2017-09-26] MEDS: metFORMIN HCL 500 MG TABLET (FP) PO SCH (06:22)
[2017-09-26] MEDS: dilTIAZem HCL 60 MG TABLET (FP) PO SCH ×4 (06:22→17:24)
[2017-09-26] MEDS: sitaGLIPtin PHOSPHATE 25 MG TABLET (FP) PO SCH (06:23)
[2017-09-26] MEDS: INSULIN SLIDING SCALE (NOVOLOG) 1 VIAL SQ SCH ×4 (06:23→22:36)
--- NOTE | 2017-09-26 09:24 | PN ---
Progress Note, Physician History of Present Illness: 72 yo F with h/o HTN, HLD, CVA, Cardiac pacemaker placement ( 2010), and A-fib ( on Eliquis and Plavix) who presents with chest and back pain. Patient reports onset of worsening, unremitting, retrosternal and left sided chest pressure/ tightness beginning 0900 yesterday AM ( 09/22) while sitting down watching television. Associated with SOB, lightheadedness, fatigue, and nausea w/out vomiting. Pain radiates to intrascapular region, neck, and jaw. Aggravated with deep inhalation. Attempted analgesia with Tylenol, with no relief. Recently recovering from GI type illness/diarrhea with multiple loose watery stools since Wednesday (09/17). Denies palpitation, diaphoresis, fevers/chills, cough, wheezing, LOC, lightheadedness, acute weakness, urinary complaints, blood per rectum, abdominal pain. Allergic to Diclofenac, Penicillin, ASA. No h/o cardiac stent or CABG. PCP Dr. Sony Johnson. Cash Management Officer Nazario. EKG (08/14/14) Atrial paced rhythm with LBBB. - Current Medication List Current Medications: Active Medications Acetaminophen (Tylenol -) 650 mg PO Q6H PRN PRN Reason: FEVER OR PAIN Last Admin: 09/23/17 22:30 Dose: 650 mg Apixaban (Eliquis -) 5 mg PO BID [facility] Last Admin: 09/25/17 22:11 Dose: 5 mg Carvedilol (Coreg -) 25 mg PO DAILY [facility] Last Admin: 09/25/17 11:14 Dose: 25 mg Clopidogrel Bisulfate (Plavix -) 75 mg PO DAILY [facility] Last Admin: 09/25/17 11:15 Dose: 75 mg Diltiazem HCl (Cardizem -) 60 mg PO Q6HPO [facility] Last Admin: 09/26/17 06:22 Dose: 60 mg Levofloxacin (Levaquin 500 Mg Premixed Ivpb -) 500 mg in 100 mls @ 100 mls/hr IVPB DAILY [facility] Last Admin: 09/25/17 11:14 Dose: 100 mls/hr Insulin Aspart (Novolog Vial Sliding Scale -) 1 vial SQ ACHS [facility] PRN Reason: Protocol Last Admin: 09/26/17 06:23 Dose: Not Given Losartan Potassium (Losartan Potassium) 100 mg PO DAILY [facility] Last Admin: 09/25/17 11:15 Dose: 100 mg Metformin HCl (Glucophage -) 1,000 mg PO DAILY@0700 [facility] Last Admin: 09/26/17 06:22 Dose: 1,000 mg Pantoprazole Sodium (Protonix -) 40 mg PO DAILY [facility] Last Admin: 09/25/17 11:15 Dose: 40 mg Sitagliptin Phosphate (Januvia -) 50 mg PO DAILY@0700 [facility] Last Admin: 09/26/17 06:23 Dose: 50 mg - Objective Vital Signs: Vital Signs Temperature 98.0 F 09/26/17 05:41 Pulse Rate 60 09/26/17 05:41 Respiratory Rate 20 09/26/17 05:41 Blood Pressure 117/48 09/26/17 05:41 O2 Sat by Pulse Oximetry (%) 95 09/25/17 21:00 Eyes: Yes: WNL, Conjunctiva Clear, EOM Intact HENT: Yes: WNL, Atraumatic, Normocephalic Neck: Yes: WNL, Supple, Trachea Midline Cardiovascular: Yes: WNL, Regular Rate and Rhythm Respiratory: Yes: WNL, Regular, CTA Bilaterally Gastrointestinal: Yes: WNL, Normal Bowel Sounds Genitourinary: Yes: WNL Musculoskeletal: Yes: WNL Extremities: Yes: WNL Edema: No Integumentary: Yes: WNL Neurological: Yes: WNL, Alert, Oriented ...Motor Strength: WNL Psychiatric: Yes: WNL Labs: CBC, BMP 09/25/17 05:00 09/25/17 05:00 INR, PTT INR 1.41 (0.82-1.09) H 09/23/17 09:00 Problem List - Problems (1) Chest pain at rest Code(s): R07.9 - CHEST PAIN, UNSPECIFIED (2) Headache Code(s): R51 - HEADACHE (3) Weakness Code(s): R53.1 - WEAKNESS Assessment/Plan positive TNI's (trending down) demand ischemia during af RVR ? underling CAD no CP Fever resolved Chronic HTN DM Prior CVA PAF , PPM Moderate renal artery stenosis Chest discomfort in setting of fever, AF w/ RVR - REC: -cont ac cont plavix /coreg abx rx as per ID cultures -ID consult -CT chest without contrast to r/o infiltrate not seen on CXR no dvt on jaron duplex to r/o dvt
[2017-09-26] MEDS ORDERED: PT OWN MED DRAWER 7, Y5N ONE (09:44)
[2017-09-26] MEDS: LEVOFLOXACIN 500 MG IVPB 500 MG/100 ML BAG IVPB SCH (09:45)
[2017-09-26] MEDS: APIXABAN 5 MG TABLET PO SCH ×2 (09:46→22:37)
[2017-09-26] MEDS: PANTOPRAZOLE 40 MG TABLET (FP) PO SCH (09:46)
[2017-09-26] MEDS: CARVEDILOL 25 MG TABLET (FP) PO SCH (09:46)
[2017-09-26] MEDS: LOSARTAN POTASSIUM 100 MG TABLET PO SCH (09:46)
[2017-09-26] MEDS: CLOPIDOGREL BISULFATE 75 MG TABLET (FP) PO SCH (09:46)
--- NOTE | 2017-09-26 20:43 | PN ---
Progress Note, Physician History of Present Illness: Pt denies any complaints - Current Medication List Current Medications: Active Medications Acetaminophen (Tylenol -) 650 mg PO Q6H PRN PRN Reason: FEVER OR PAIN Last Admin: 09/23/17 22:30 Dose: 650 mg Apixaban (Eliquis -) 5 mg PO BID [facility] Last Admin: 09/26/17 09:46 Dose: 5 mg Carvedilol (Coreg -) 25 mg PO DAILY [facility] Last Admin: 09/26/17 09:46 Dose: 25 mg Clopidogrel Bisulfate (Plavix -) 75 mg PO DAILY [facility] Last Admin: 09/26/17 09:46 Dose: 75 mg Diltiazem HCl (Cardizem -) 60 mg PO Q6HPO [facility] Last Admin: 09/26/17 17:24 Dose: 60 mg Levofloxacin (Levaquin 500 Mg Premixed Ivpb -) 500 mg in 100 mls @ 100 mls/hr IVPB DAILY [facility] Last Admin: 09/26/17 09:45 Dose: 100 mls/hr Insulin Aspart (Novolog Vial Sliding Scale -) 1 vial SQ ACHS [facility] PRN Reason: Protocol Last Admin: 09/26/17 17:21 Dose: Not Given Losartan Potassium (Losartan Potassium) 100 mg PO DAILY [facility] Last Admin: 09/26/17 09:46 Dose: 100 mg Metformin HCl (Glucophage -) 1,000 mg PO DAILY@0700 [facility] Last Admin: 09/26/17 06:22 Dose: 1,000 mg Pantoprazole Sodium (Protonix -) 40 mg PO DAILY [facility] Last Admin: 09/26/17 09:46 Dose: 40 mg Sitagliptin Phosphate (Januvia -) 50 mg PO DAILY@0700 [facility] Last Admin: 09/26/17 06:23 Dose: 50 mg - Objective Vital Signs: Vital Signs Temperature 98.1 F 09/26/17 18:00 Pulse Rate 5 L 09/26/17 18:00 Respiratory Rate 20 09/26/17 18:00 Blood Pressure 111/44 09/26/17 18:00 O2 Sat by Pulse Oximetry (%) 97 09/26/17 13:00 Constitutional: Yes: No Distress HENT: Yes: WNL Neck: Yes: WNL, Supple Cardiovascular: Yes: Pulse Irregular Respiratory: Yes: WNL, Regular, CTA Bilaterally Gastrointestinal: Yes: WNL, Normal Bowel Sounds, Soft Labs: CBC, BMP 09/25/17 05:00 09/25/17 05:00 INR, PTT INR 1.41 (0.82-1.09) H 09/23/17 09:00 Problem List - Problems (1) Chest pain Assessment/Plan: Troponin trended down ?Demand ischemia Cont eliquis/plavix CT scan chest/Dopplers of lower extremities were done wc were negative for PE and no DVT's As per cardio Code(s): R07.9 - CHEST PAIN, UNSPECIFIED (2) Fever Assessment/Plan: Blood cultures/urine cultures remain negative Cont IV levaquin empirically WBC has been normal ID consult noted Will change to po in am Code(s): R50.9 - FEVER, UNSPECIFIED (3) Afib Assessment/Plan: Heart rate controlled Cont coreg/eliquis/cardizem Code(s): I48.91 - UNSPECIFIED ATRIAL FIBRILLATION (4) Diabetes Assessment/Plan: Cont metformin Cont sliding scale w/ coverge Code(s): E11.9 - TYPE 2 DIABETES MELLITUS WITHOUT COMPLICATIONS (5) HTN (hypertension) Assessment/Plan: BP stable Cont losartan/coreg/ Code(s): I10 - ESSENTIAL (PRIMARY) HYPERTENSION (6) HLD (hyperlipidemia) Code(s): E78.5 - HYPERLIPIDEMIA, UNSPECIFIED
[2017-09-27] MEDS: dilTIAZem HCL 60 MG TABLET (FP) PO SCH ×4 (00:21→17:06)
[2017-09-27] MEDS: metFORMIN HCL 500 MG TABLET (FP) PO SCH (06:25)
[2017-09-27] MEDS: INSULIN SLIDING SCALE (NOVOLOG) 1 VIAL SQ SCH ×3 (06:26→22:11)
[2017-09-27] MEDS: sitaGLIPtin PHOSPHATE 25 MG TABLET (FP) PO SCH (06:26)
[2017-09-27 07:27] LABS: ALBUMIN 2.7 g/dl (3.4-5.0); ALK PHOS 71 U/L (45-117); ANION GAP 10 (8-16); BILIRUBIN,TOTAL 0.4 mg/dL (0.2-1.0); CALCIUM 8.9 mg/dL (8.5-10.1); CO2 23 mmol/L (21-32); CREATININE 1.4 mg/dL (0.55-1.02); GLUCOSE,RANDOM 111 mg/dL (74-106); SGOT/AST 11 U/L (15-37); SGPT/ALT 13 U/L (12-78)
[2017-09-27 07:40] LABS: BASOPHIL 0.3 % (0-2.0); EOSINOPHIL 1.3 % (0-4.5); MCH 30.2 pg (25.7-33.7); MCHC 33.1 g/dl (32.0-36.0); MEAN CELL VOLUME 91.1 fl (80-96); MEAN PLT VOLUME 8.1 fl (7.5-11.1); NEUTROPHILS 58.7 % (42.8-82.8); PLATELET COUNT 281 K/MM3 (134-434); RDW 13.1 % (11.6-15.6); WHITE BLOOD COUNT 6.3 K/mm3 (4.0-10.0)
[2017-09-27] MEDS: LEVOFLOXACIN 500 MG IVPB 500 MG/100 ML BAG IVPB SCH (09:04)
--- NOTE | 2017-09-27 09:55 | EKG ---
Test Reason : Blood Pressure : / mmHG Vent. Rate : 060 BPM Atrial Rate : 060 BPM P-R Int : 238 ms QRS Dur : 150 ms QT Int : 438 ms P-R-T Axes : 057 028 058 degrees QTc Int : 438 ms Atrial-paced rhythm with prolonged AV conduction LEFT BUNDLE BRANCH BLOCK ABNORMAL ECG WHEN COMPARED WITH ECG OF 23-SEP-2017 22:00, ELECTRONIC ATRIAL PACEMAKER HAS REPLACED ATRIAL FIBRILLATION VENT. RATE HAS DECREASED BY 82 BPM LEFT BUNDLE BRANCH BLOCK IS NOW PRESENT CRITERIA FOR ANTERIOR INFARCT ARE NO LONGER PRESENT CRITERIA FOR ANTEROLATERAL INFARCT ARE NO LONGER PRESENT Confirmed by TELLY EMERSON, GEORGINA ([id number]) on 09/27/2017 9:54:29 AM Referred By: Per GAMBINO Confirmed By:GEORGINA VARNER MD
[2017-09-27] MEDS ORDERED: PT OWN MED DRAWER 7, Y5N ONE (10:08)
[2017-09-27] MEDS: CLOPIDOGREL BISULFATE 75 MG TABLET (FP) PO SCH (10:11)
[2017-09-27] MEDS: CARVEDILOL 25 MG TABLET (FP) PO SCH ×2 (10:11→22:10)
[2017-09-27] MEDS: LOSARTAN POTASSIUM 100 MG TABLET PO SCH (10:11)
[2017-09-27] MEDS: APIXABAN 5 MG TABLET PO SCH ×2 (10:11→22:10)
[2017-09-27] MEDS: PANTOPRAZOLE 40 MG TABLET (FP) PO SCH (10:11)
--- NOTE | 2017-09-27 11:01 | PN ---
Progress Note, Physician History of Present Illness: Awake, alert No complaints Denies chest pain/ dyspnea/ cough No c/o dysuria No fever/ chills - Current Medication List Current Medications: Active Medications Acetaminophen (Tylenol -) 650 mg PO Q6H PRN PRN Reason: FEVER OR PAIN Last Admin: 09/23/17 22:30 Dose: 650 mg Apixaban (Eliquis -) 5 mg PO BID [facility] Last Admin: 09/27/17 10:11 Dose: 5 mg Carvedilol (Coreg -) 25 mg PO DAILY [facility] Last Admin: 09/27/17 10:11 Dose: 25 mg Clopidogrel Bisulfate (Plavix -) 75 mg PO DAILY [facility] Last Admin: 09/27/17 10:11 Dose: 75 mg Diltiazem HCl (Cardizem -) 60 mg PO Q6HPO [facility] Last Admin: 09/27/17 06:25 Dose: 60 mg Levofloxacin (Levaquin 500 Mg Premixed Ivpb -) 500 mg in 100 mls @ 100 mls/hr IVPB DAILY [facility] Last Admin: 09/26/17 09:45 Dose: 100 mls/hr Insulin Aspart (Novolog Vial Sliding Scale -) 1 vial SQ ACHS [facility] PRN Reason: Protocol Last Admin: 09/27/17 06:26 Dose: Not Given Losartan Potassium (Losartan Potassium) 100 mg PO DAILY [facility] Last Admin: 09/27/17 10:11 Dose: 100 mg Metformin HCl (Glucophage -) 1,000 mg PO DAILY@0700 [facility] Last Admin: 09/27/17 06:25 Dose: 1,000 mg Pantoprazole Sodium (Protonix -) 40 mg PO DAILY [facility] Last Admin: 09/27/17 10:11 Dose: 40 mg Sitagliptin Phosphate (Januvia -) 50 mg PO DAILY@0700 [facility] Last Admin: 09/27/17 06:26 Dose: 50 mg - Objective Vital Signs: Vital Signs Temperature 98.9 F 09/27/17 06:00 Pulse Rate 64 09/27/17 06:00 Respiratory Rate 20 09/27/17 06:00 Blood Pressure 133/57 09/27/17 06:00 O2 Sat by Pulse Oximetry (%) 95 09/27/17 05:00 Constitutional: Yes: No Distress Cardiovascular: Yes: Regular Rate and Rhythm, S1, S2 Respiratory: Yes: CTA Bilaterally Gastrointestinal: Yes: Normal Bowel Sounds, Soft, Abdomen, Obese. No: Tenderness Edema: No Labs: CBC, BMP 09/27/17 05:10 09/27/17 05:10 INR, PTT INR 1.41 (0.82-1.09) H 09/23/17 09:00 Assessment/Plan Fever- resolved Chest pain syndrome Viral syndrome v. early pneumonia- improved + Urine c/s (contaminant) PCN allergy Substitute po levaquin x 3d
--- NOTE | 2017-09-27 11:45 | EKG ---
Test Reason : Blood Pressure : / mmHG Vent. Rate : 142 BPM Atrial Rate : 156 BPM P-R Int : 000 ms QRS Dur : 116 ms QT Int : 304 ms P-R-T Axes : 000 014 193 degrees QTc Int : 467 ms ATRIAL FIBRILLATION WITH RAPID VENTRICULAR RESPONSE ANTEROLATERAL INFARCT , AGE UNDETERMINED ABNORMAL ECG WHEN COMPARED WITH ECG OF 23-SEP-2017 07:17, ATRIAL FIBRILLATION HAS REPLACED ELECTRONIC ATRIAL PACEMAKER VENT. RATE HAS INCREASED BY 79 BPM LEFT BUNDLE BRANCH BLOCK IS NO LONGER PRESENT ANTERIOR INFARCT IS NOW PRESENT ANTEROLATERAL INFARCT IS NOW PRESENT Confirmed by TELLY EMERSON, GEORGINA ([id number]) on 09/27/2017 11:44:37 AM Referred By: CHAPINCITO Confirmed By:GEORGINA VARNER MD
--- NOTE | 2017-09-27 11:49 | PN ---
Progress Note, Physician History of Present Illness: seen and examined today in [facility]. discussed with family at bedside and over the phone. pt feeling better. no overnight events. no new complaints. - Current Medication List Current Medications: Active Medications Acetaminophen (Tylenol -) 650 mg PO Q6H PRN PRN Reason: FEVER OR PAIN Last Admin: 09/23/17 22:30 Dose: 650 mg Apixaban (Eliquis -) 5 mg PO BID [facility] Last Admin: 09/27/17 10:11 Dose: 5 mg Carvedilol (Coreg -) 25 mg PO DAILY [facility] Last Admin: 09/27/17 10:11 Dose: 25 mg Clopidogrel Bisulfate (Plavix -) 75 mg PO DAILY [facility] Last Admin: 09/27/17 10:11 Dose: 75 mg Diltiazem HCl (Cardizem -) 60 mg PO Q6HPO [facility] Last Admin: 09/27/17 06:25 Dose: 60 mg Insulin Aspart (Novolog Vial Sliding Scale -) 1 vial SQ ACHS [facility] PRN Reason: Protocol Last Admin: 09/27/17 06:26 Dose: Not Given Levofloxacin (Levaquin -) 250 mg PO DAILY@0600 [facility] Losartan Potassium (Losartan Potassium) 100 mg PO DAILY [facility] Last Admin: 09/27/17 10:11 Dose: 100 mg Metformin HCl (Glucophage -) 1,000 mg PO DAILY@0700 [facility] Last Admin: 09/27/17 06:25 Dose: 1,000 mg Pantoprazole Sodium (Protonix -) 40 mg PO DAILY [facility] Last Admin: 09/27/17 10:11 Dose: 40 mg Sitagliptin Phosphate (Januvia -) 50 mg PO DAILY@0700 [facility] Last Admin: 09/27/17 06:26 Dose: 50 mg - Objective Vital Signs: Vital Signs Temperature 98.9 F 09/27/17 06:00 Pulse Rate 64 09/27/17 06:00 Respiratory Rate 20 09/27/17 06:00 Blood Pressure 133/57 09/27/17 06:00 O2 Sat by Pulse Oximetry (%) 95 09/27/17 05:00 Constitutional: Yes: Well Nourished, No Distress, Calm Eyes: Yes: WNL, Conjunctiva Clear, EOM Intact, PERRL HENT: Yes: WNL, Atraumatic, Normocephalic Neck: Yes: WNL, Supple, Trachea Midline Cardiovascular: Yes: Pulse Irregular, S1, S2. No: Bradycardia, Tachycardia, Bruit, JVD, Gallop, Murmur, Rub, S3, S4, Varicosities Respiratory: Yes: Regular, Diminished, Rhonchi. No: On Nasal O2, Rales, SOB, Wheezes Gastrointestinal: Yes: WNL, Normal Bowel Sounds, Soft. No: Distention, Tenderness Musculoskeletal: Yes: WNL Extremities: Yes: WNL Edema: No Peripheral Pulses WNL: Yes Peripheral Pulses: Left Doralis Pedis: 2+, Right Dorsalis Pedis: 2+ Integumentary: Yes: WNL Neurological: Yes: Alert, Oriented Psychiatric: Yes: Alert, Oriented Labs: CBC, BMP 09/27/17 05:10 09/27/17 05:10 INR, PTT INR 1.41 (0.82-1.09) H 09/23/17 09:00 - ....Imaging Chest X-ray: Report Reviewed, Image Reviewed EKG: Report Reviewed, Image Reviewed Other: Report Reviewed, Image Reviewed (tele-AV paced, PVCs) Assessment/Plan 72 year old woman h/o HTN, HLD, CVA, Afib, PPM, a/w chest and back discomfort, sob, lightheadedness, fatigue, nausea, recent GI illness. Elevated troponin -trended down -believed to be likely demand ischemia in the setting of episode of AFib with RVR in the setting of fever -echo showed normal LV/RV size and function -will review office records for recent ischemic work up -Abx as per ID AFib-with RVR in the setting of fever on admission,h/o PPM -HR is now well controlled -cont coreg and cardizem at current doses for now -cont eliquis HTN-adequately controlled -cont current meds for now
[2017-09-27] MEDS ORDERED: INSULIN (NOVOLOG) ASPART 100 UNITS/ML 10ML VIAL ONE (16:36)
--- NOTE | 2017-09-27 22:39 | PN ---
Progress Note, Physician - Current Medication List Current Medications: Active Medications Acetaminophen (Tylenol -) 650 mg PO Q6H PRN PRN Reason: FEVER OR PAIN Last Admin: 09/23/17 22:30 Dose: 650 mg Apixaban (Eliquis -) 5 mg PO BID [facility] Last Admin: 09/27/17 22:10 Dose: 5 mg Carvedilol (Coreg -) 25 mg PO BID [facility] Last Admin: 09/27/17 22:10 Dose: 25 mg Clopidogrel Bisulfate (Plavix -) 75 mg PO DAILY [facility] Last Admin: 09/27/17 10:11 Dose: 75 mg Diltiazem HCl (Cardizem -) 60 mg PO Q6HPO [facility] Last Admin: 09/27/17 17:06 Dose: 60 mg Insulin Aspart (Novolog Vial Sliding Scale -) 1 vial SQ ACHS [facility] PRN Reason: Protocol Last Admin: 09/27/17 22:11 Dose: Not Given Levofloxacin (Levaquin -) 250 mg PO DAILY@0600 [facility] Losartan Potassium (Losartan Potassium) 100 mg PO DAILY [facility] Last Admin: 09/27/17 10:11 Dose: 100 mg Metformin HCl (Glucophage -) 1,000 mg PO DAILY@0700 [facility] Last Admin: 09/27/17 06:25 Dose: 1,000 mg Pantoprazole Sodium (Protonix -) 40 mg PO DAILY [facility] Last Admin: 09/27/17 10:11 Dose: 40 mg Sitagliptin Phosphate (Januvia -) 50 mg PO DAILY@0700 [facility] Last Admin: 09/27/17 06:26 Dose: 50 mg - Objective Vital Signs: Vital Signs Temperature 97.7 F 09/27/17 17:00 Pulse Rate 62 09/27/17 17:00 Respiratory Rate 20 09/27/17 17:00 Blood Pressure 134/51 09/27/17 17:00 O2 Sat by Pulse Oximetry (%) 95 09/27/17 05:00 Labs: CBC, BMP 09/27/17 05:10 09/27/17 05:10 INR, PTT INR 1.41 (0.82-1.09) H 09/23/17 09:00 Problem List - Problems (1) Chest pain Code(s): R07.9 - CHEST PAIN, UNSPECIFIED (2) Fever Code(s): R50.9 - FEVER, UNSPECIFIED (3) Afib Code(s): I48.91 - UNSPECIFIED ATRIAL FIBRILLATION (4) Diabetes Code(s): E11.9 - TYPE 2 DIABETES MELLITUS WITHOUT COMPLICATIONS (5) HTN (hypertension) Code(s): I10 - ESSENTIAL (PRIMARY) HYPERTENSION (6) HLD (hyperlipidemia) Code(s): E78.5 - HYPERLIPIDEMIA, UNSPECIFIED
[2017-09-28] MEDS: dilTIAZem HCL 60 MG TABLET (FP) PO SCH ×4 (00:06→18:00)
[2017-09-28] MEDS: LEVOFLOXACIN 250 MG TABLET (FP) PO SCH (06:37)
[2017-09-28] MEDS: metFORMIN HCL 500 MG TABLET (FP) PO SCH (06:37)
[2017-09-28] MEDS: sitaGLIPtin PHOSPHATE 25 MG TABLET (FP) PO SCH (06:37)
[2017-09-28] MEDS: INSULIN SLIDING SCALE (NOVOLOG) 1 VIAL SQ SCH ×4 (06:37→22:39)
--- NOTE | 2017-09-28 09:23 | PN ---
Progress Note, Physician Chief Complaint: Feeling well, no further chest pain TELE: Paced, no rapid rates - Current Medication List Current Medications: Active Medications Acetaminophen (Tylenol -) 650 mg PO Q6H PRN PRN Reason: FEVER OR PAIN Last Admin: 09/23/17 22:30 Dose: 650 mg Apixaban (Eliquis -) 5 mg PO BID [facility] Last Admin: 09/27/17 22:10 Dose: 5 mg Carvedilol (Coreg -) 25 mg PO BID [facility] Last Admin: 09/27/17 22:10 Dose: 25 mg Clopidogrel Bisulfate (Plavix -) 75 mg PO DAILY [facility] Last Admin: 09/27/17 10:11 Dose: 75 mg Diltiazem HCl (Cardizem -) 60 mg PO Q6HPO [facility] Last Admin: 09/28/17 06:37 Dose: 60 mg Insulin Aspart (Novolog Vial Sliding Scale -) 1 vial SQ ACHS [facility] PRN Reason: Protocol Last Admin: 09/28/17 06:37 Dose: Not Given Levofloxacin (Levaquin -) 250 mg PO DAILY@0600 [facility] Last Admin: 09/28/17 06:37 Dose: 250 mg Losartan Potassium (Losartan Potassium) 100 mg PO DAILY [facility] Last Admin: 09/27/17 10:11 Dose: 100 mg Metformin HCl (Glucophage -) 1,000 mg PO DAILY@0700 [facility] Last Admin: 09/28/17 06:37 Dose: Not Given Pantoprazole Sodium (Protonix -) 40 mg PO DAILY [facility] Last Admin: 09/27/17 10:11 Dose: 40 mg Regadenoson (Lexiscan) 0.4 mg IVPUSH ONCE ONE Stop: 09/28/17 10:01 Sitagliptin Phosphate (Januvia -) 50 mg PO DAILY@0700 [facility] Last Admin: 09/28/17 06:37 Dose: Not Given - Objective Vital Signs: Vital Signs Temperature 99.1 F 09/28/17 07:30 Pulse Rate 60 09/28/17 07:30 Respiratory Rate 16 09/28/17 07:30 Blood Pressure 136/58 09/28/17 07:30 O2 Sat by Pulse Oximetry (%) 95 09/27/17 21:00 Constitutional: Yes: No Distress Cardiovascular: Yes: Pulse Irregular Respiratory: Yes: CTA Bilaterally Gastrointestinal: Yes: Soft Edema: No Neurological: Yes: Alert, Oriented Labs: CBC, BMP 09/27/17 05:10 09/27/17 05:10 INR, PTT INR 1.41 (0.82-1.09) H 09/23/17 09:00 Microbiology 09/24/17 00:02 Urine - Urine Clean Catch Urine Culture - Final Pseudomonas Aeruginosa 09/23/17 22:20 Blood - Peripheral Venous Blood Culture - Preliminary NO GROWTH OBTAINED AFTER 96 HOURS, INCUBATION TO CONTINUE FOR 1 DAYS. 09/23/17 22:20 Blood - Peripheral Venous Blood Culture - Preliminary NO GROWTH OBTAINED AFTER 96 HOURS, INCUBATION TO CONTINUE FOR 1 DAYS. Laboratory Tests 09/27/17 09/27/17 05:10 05:10 WBC 6.3 Hgb 10.4 L Plt Count 281 D Potassium 3.8 Creatinine 1.4 H D - ....Imaging EKG: Image Reviewed Assessment/Plan 72 year old woman h/o HTN, HLD, CVA, Afib, PPM, a/w chest and back discomfort, sob, lightheadedness, fatigue, nausea, recent GI illness. Elevated troponin -trended down -believed to be likely demand ischemia in the setting of episode of AFib with RVR in the setting of fever from UTI -echo showed normal LV/RV size and function -Nuclear stress test planned for today AFib-with RVR in the setting of fever on admission,h/o PPM -HR is now well controlled -cont coreg and cardizem at current doses for now -cont eliquis HTN-adequately controlled -cont current meds for now UTI-pseudomonas -abx per ID and medicine
[2017-09-28] MEDS ORDERED: REGADENOSON 0.4 MG/5 ML PRE-FILLED SYRINGE IVPUSH ONE ×2 (10:00→10:12)
[2017-09-28] MEDS: PANTOPRAZOLE 40 MG TABLET (FP) PO SCH (12:59)
[2017-09-28] MEDS: CLOPIDOGREL BISULFATE 75 MG TABLET (FP) PO SCH (12:59)
[2017-09-28] MEDS: CARVEDILOL 25 MG TABLET (FP) PO SCH ×2 (13:00→22:37)
[2017-09-28] MEDS: APIXABAN 5 MG TABLET PO SCH ×2 (13:00→22:37)
[2017-09-28] MEDS: LOSARTAN POTASSIUM 100 MG TABLET PO SCH (13:07)
--- NOTE | 2017-09-28 21:11 | PN ---
Progress Note, Physician History of Present Illness: No new complaints - Current Medication List Current Medications: Active Medications Acetaminophen (Tylenol -) 650 mg PO Q6H PRN PRN Reason: FEVER OR PAIN Last Admin: 09/23/17 22:30 Dose: 650 mg Apixaban (Eliquis -) 5 mg PO BID [facility] Last Admin: 09/28/17 13:00 Dose: 5 mg Carvedilol (Coreg -) 25 mg PO BID [facility] Last Admin: 09/28/17 13:00 Dose: 25 mg Clopidogrel Bisulfate (Plavix -) 75 mg PO DAILY [facility] Last Admin: 09/28/17 12:59 Dose: 75 mg Diltiazem HCl (Cardizem -) 60 mg PO Q6HPO [facility] Last Admin: 09/28/17 18:00 Dose: 60 mg Insulin Aspart (Novolog Vial Sliding Scale -) 1 vial SQ ACHS [facility] PRN Reason: Protocol Last Admin: 09/28/17 17:56 Dose: Not Given Levofloxacin (Levaquin -) 250 mg PO DAILY@0600 [facility] Last Admin: 09/28/17 06:37 Dose: 250 mg Losartan Potassium (Losartan Potassium) 100 mg PO DAILY [facility] Last Admin: 09/28/17 13:07 Dose: 100 mg Metformin HCl (Glucophage -) 1,000 mg PO DAILY@0700 [facility] Last Admin: 09/28/17 06:37 Dose: Not Given Pantoprazole Sodium (Protonix -) 40 mg PO DAILY [facility] Last Admin: 09/28/17 12:59 Dose: 40 mg Sitagliptin Phosphate (Januvia -) 50 mg PO DAILY@0700 [facility] Last Admin: 09/28/17 06:37 Dose: Not Given - Objective Vital Signs: Vital Signs Temperature 97.8 F 09/28/17 17:00 Pulse Rate 60 09/28/17 17:00 Respiratory Rate 20 09/28/17 17:00 Blood Pressure 134/59 09/28/17 17:00 O2 Sat by Pulse Oximetry (%) 94 L 09/28/17 08:00 Constitutional: Yes: No Distress HENT: Yes: WNL Neck: Yes: WNL, Supple Cardiovascular: Yes: WNL, Regular Rate and Rhythm Respiratory: Yes: WNL, Regular, CTA Bilaterally Gastrointestinal: Yes: WNL, Normal Bowel Sounds, Soft Labs: CBC, BMP 09/27/17 05:10 09/27/17 05:10 INR, PTT INR 1.41 (0.82-1.09) H 09/23/17 09:00 Problem List - Problems (1) Chest pain Assessment/Plan: Troponin trended down ?Demand ischemia Cont eliquis/plavix CT scan chest/Dopplers of lower extremities were done wc were negative for PE and no DVT's Nuclear stress test pending Possible dc planning as per cardio Code(s): R07.9 - CHEST PAIN, UNSPECIFIED (2) Fever Assessment/Plan: Blood cultures Urine culture showed pseudomonas Cont po levaquin Code(s): R50.9 - FEVER, UNSPECIFIED (3) Afib Assessment/Plan: Heart rate controlled Cont coreg/eliquis/cardizem Code(s): I48.91 - UNSPECIFIED ATRIAL FIBRILLATION (4) Diabetes Assessment/Plan: Cont metformin Cont sliding scale w/ coverge Code(s): E11.9 - TYPE 2 DIABETES MELLITUS WITHOUT COMPLICATIONS (5) HTN (hypertension) Code(s): I10 - ESSENTIAL (PRIMARY) HYPERTENSION (6) HLD (hyperlipidemia) Code(s): E78.5 - HYPERLIPIDEMIA, UNSPECIFIED
[2017-09-28] MEDS: ACETAMINOPHEN 325 MG TABLET (FP) PO PRN (22:40)
[2017-09-29] MEDS: dilTIAZem HCL 60 MG TABLET (FP) PO SCH ×3 (00:49→12:17)
[2017-09-29 02:24] VITALS: PULSE 60
[2017-09-29] MEDS: LEVOFLOXACIN 250 MG TABLET (FP) PO SCH (06:41)
[2017-09-29] MEDS: sitaGLIPtin PHOSPHATE 25 MG TABLET (FP) PO SCH (06:42)
[2017-09-29] MEDS: metFORMIN HCL 500 MG TABLET (FP) PO SCH (06:42)
[2017-09-29] MEDS: INSULIN SLIDING SCALE (NOVOLOG) 1 VIAL SQ SCH ×2 (06:42→11:47)
[2017-09-29 08:15] VITALS: TEMP 98.8
[2017-09-29] MEDS: PANTOPRAZOLE 40 MG TABLET (FP) PO SCH (09:09)
[2017-09-29] MEDS: APIXABAN 5 MG TABLET PO SCH (09:09)
[2017-09-29] MEDS: CARVEDILOL 25 MG TABLET (FP) PO SCH (09:09)
[2017-09-29] MEDS: CLOPIDOGREL BISULFATE 75 MG TABLET (FP) PO SCH (09:09)
--- NOTE | 2017-09-29 09:14 | PN ---
Progress Note, Physician Chief Complaint: stress test reviewed personally: Mild to moderate anterior, anteroseptal ischemia; mild apical ischemia: LAD territory - Current Medication List Current Medications: Active Medications Acetaminophen (Tylenol -) 650 mg PO Q6H PRN PRN Reason: FEVER OR PAIN Last Admin: 09/28/17 22:40 Dose: 650 mg Apixaban (Eliquis -) 5 mg PO BID [facility] Last Admin: 09/29/17 09:09 Dose: 5 mg Carvedilol (Coreg -) 25 mg PO BID [facility] Last Admin: 09/29/17 09:09 Dose: 25 mg Clopidogrel Bisulfate (Plavix -) 75 mg PO DAILY [facility] Last Admin: 09/29/17 09:09 Dose: 75 mg Diltiazem HCl (Cardizem -) 60 mg PO Q6HPO [facility] Last Admin: 09/29/17 06:41 Dose: 60 mg Insulin Aspart (Novolog Vial Sliding Scale -) 1 vial SQ ACHS [facility] PRN Reason: Protocol Last Admin: 09/29/17 06:42 Dose: Not Given Levofloxacin (Levaquin -) 250 mg PO DAILY@0600 [facility] Last Admin: 09/29/17 06:41 Dose: 250 mg Losartan Potassium (Losartan Potassium) 100 mg PO DAILY [facility] Last Admin: 09/28/17 13:07 Dose: 100 mg Metformin HCl (Glucophage -) 1,000 mg PO DAILY@0700 [facility] Last Admin: 09/29/17 06:42 Dose: 1,000 mg Pantoprazole Sodium (Protonix -) 40 mg PO DAILY [facility] Last Admin: 09/29/17 09:09 Dose: 40 mg Sitagliptin Phosphate (Januvia -) 50 mg PO DAILY@0700 [facility] Last Admin: 09/29/17 06:42 Dose: 50 mg - Objective Vital Signs: Vital Signs Temperature 98.8 F 09/29/17 08:13 Pulse Rate 60 09/29/17 08:13 Respiratory Rate 16 09/29/17 08:13 Blood Pressure 140/70 09/29/17 08:13 O2 Sat by Pulse Oximetry (%) 97 09/28/17 21:00 Constitutional: Yes: No Distress Cardiovascular: Yes: Regular Rate and Rhythm (paced) Respiratory: Yes: CTA Bilaterally Gastrointestinal: Yes: Soft Edema: No Neurological: Yes: Alert Labs: CBC, BMP 09/27/17 05:10 09/27/17 05:10 INR, PTT INR 1.41 (0.82-1.09) H 09/23/17 09:00 Laboratory Tests 09/27/17 09/27/17 05:10 05:10 WBC 6.3 Hgb 10.4 L Plt Count 281 D Creatinine 1.4 H D - ....Imaging EKG: Image Reviewed Assessment/Plan IMP: AF s/p PPM on AC H/o CVA 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 Explained to patient and daughter in detail. Benefits and risks- including the chance of progressive renal failure requiring HD were explained as was CVA, CT, tamponade rarely . They have agreed to transfer to [facility] for cath. Will need 48-72 hours of hydration and optimization of renal fxn prior to procedure. Transfer when bed is available. Can continue Eliquis until she is transferred.
[2017-09-29] MEDS: LOSARTAN POTASSIUM 100 MG TABLET PO SCH (09:15)
[2017-09-29 10:36] LABS: BASOPHIL 0.6 % (0-2.0); EOSINOPHIL 1.7 % (0-4.5); MCH 30.1 pg (25.7-33.7); MCHC 32.8 g/dl (32.0-36.0); MEAN PLT VOLUME 7.7 fl (7.5-11.1); NEUTROPHILS 68.6 % (42.8-82.8); PLATELET COUNT 330 K/MM3 (134-434); RDW 13.2 % (11.6-15.6); WHITE BLOOD COUNT 7.2 K/mm3 (4.0-10.0)
[2017-09-29 10:59] LABS: ANION GAP 7 (8-16); CO2 27 mmol/L (21-32); CREATININE 1.2 mg/dL (0.55-1.02); GLUCOSE,RANDOM 133 mg/dL (74-106)
[2017-09-29 12:10] VITALS: BP 140/65
== END 2017-09-29 12:59 | disposition short-term general hospital (02) | DRG 311 ==
LOC: JER 07:07 → JERBED 10:04 → J4W 16:15 → OBSVTOIN 09-26 15:59
PROVIDERS: ADMIT Internal Medicine; ATTEND Internal Medicine
DX: I20.9 Angina pectoris, unspecified (principal); N39.0 Urinary tract infection, site not specified; I69.351 Hemiplegia and hemiparesis following cerebral infarction affecting right dominant side; R07.89 Other chest pain; R50.9 Fever, unspecified; E11.9 Type 2 diabetes mellitus without complications; E78.5 Hyperlipidemia, unspecified; Z95.0 Presence of cardiac pacemaker; B96.5 Pseudomonas (aeruginosa) (mallei) (pseudomallei) as the cause of diseases classified elsewhere; R51 Headache; I48.0 Paroxysmal atrial fibrillation; I12.9 Hypertensive chronic kidney disease with stage 1 through stage 4 chronic kidney disease, or unspecified chronic kidney disease; E11.22 Type 2 diabetes mellitus with diabetic chronic kidney disease; N18.9 Chronic kidney disease, unspecified; Z88.0 Allergy status to penicillin
CPT/HCPCS: 36415; 71010-TC; 71250-TC; 73030-TC-RT; 78452-TC; 80048; 80053; 81003; 81015; 82550; 83605; 83880; 84484; 85025; 85027; 85610; 87040; 87086; 87186; 87899; 93005; 93010; 93017; 93306-TC; 93970-TC; 99284-25; A9502; G0378; J2785

== ENCOUNTER 2017-12-11 13:41 | Inpatient (IN) | payer OTHER ==
--- NOTE | 2017-12-11 14:21 | PDOC ---
History of Present Illness - General History Source: Patient Exam Limitations: No Limitations - History of Present Illness Initial Comments: 12/11/17 15:36 The patient is a 72-year-old female with a significant past medical history of HTN, HLD, cardiac pacemaker placement (2010), a-fib (on Eliquis and Plavix), cardiac catheterization (2016), CVA, and pericarditis, who presents to the emergency department with chest pain, congestion, and cough for 2 days. Daughter is the patients tapering machine operator (slovak-speaking). Patient has a history of pericardial effusion and was admitted on 09/23/17. She had a cardiac catheterization, pericardiocentesis, and thoracocentesis before being discharged on 10/23/17. As per daughter, the patient was given prednisone. When the prednisone was discontinued, her effusion began to return. The patient now complains of a productive cough with yellow sputum and mild wheezing that worsened last night. She also complains of midsternal chest discomfort that is different from her previous chest pain. Patient received the flu shot. The patient denies shortness of breath, headache and dizziness. The patient denies fever, chills, nausea, vomit, diarrhea and constipation. The patient denies dysuria, frequency, urgency and hematuria. Allergies: aspirin, penicillin, diclofenac, shellfish, lactose, IV contrast Past Surgical History: cardiac pacemaker Social History: No toxic habits reported PCP: Dr. Sony Johnson Civil Engineer Helper: Dr. 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) HTN: Yes Hypercholesterolemia: Yes - Surgical History Cardiac Surgery: Yes (PACEMAKER; cath 09/24) - Immunization History Immunization Up to Date: Yes - Suicide/Smoking/Psychosocial Hx Smoking History: Never smoked Have you smoked in the past 12 months: No Information on smoking cessation initiated: No Hx Alcohol Use: No Drug/Substance Use Hx: No Substance Use Type: None Hx Substance Use Treatment: No <Roseann Montes De Oca - Last Filed: 12/11/17 18:57> - Past Medical History Allergies/Adverse Reactions: Allergies Allergy/AdvReac Type Severity Reaction Status Date / Time aspirin Allergy Severe Verified 12/11/17 13:57 Penicillins Allergy Severe Verified 12/11/17 13:57 diclofenac Allergy Verified 12/11/17 13:57 shellfish derived Allergy Verified 12/11/17 13:57 lactose AdvReac Verified 12/11/17 13:57 iv contrast Allergy Uncoded 12/11/17 13:57 Home Medications: Ambulatory Orders Acetaminophen [Pain Relief] 650 mg PO PRN 10/09/17 Apixaban [Eliquis] 5 mg PO BID 10/09/17 Atorvastatin Ca [Lipitor] 80 mg PO HS 10/09/17 Carvedilol [Coreg -] 12.5 mg PO BID 10/09/17 Clopidogrel Bisulfate [Plavix -] 75 mg PO DAILY 10/09/17 Colchicine 0.6 mg PO DAILY 10/09/17 Diltiazem HCl [Diltiazem 24Hr Cd] 240 mg PO DAILY 10/09/17 Dorzolamide HCl/Timolol Maleat [Cosopt Eye Drops] 10 ml OU BID 10/09/17 Latanoprost 0.005% Eye Drops [Xalatan 0.005% Eye Drops -] 1 drop OU HS 10/09/17 Metoclopramide HCl [Reglan] 5 mg PO BID 10/09/17 Furosemide [Lasix -] 40 mg PO DAILY 12/11/17 Insulin Aspart [Novolog] 0 unit SQ PRN 12/11/17 Insulin Glargine,Hum.rec.anlog [Lantus] 20 unit SQ AM 12/11/17 Linagliptin/Metformin HCl [Jentadueto 2.5 mg-500 mg Tab] 1 each PO BID 12/11/17 Prednisone [Deltasone -] 20 mg PO DAILY 12/11/17 Warfarin Sodium [Coumadin] 5 mg PO DAILY 12/11/17 Review of Systems - Review of Systems Able to Perform ROS?: Yes Comments:: 12/11/17 15:36 GENERAL/CONSTITUTIONAL: No fever or chills. No weakness. HEAD, EYES, EARS, NOSE AND THROAT: No change in vision. No ear pain or discharge. No sore throat. (+) Congestion. CARDIOVASCULAR: (+) Chest pain. No shortness of breath. RESPIRATORY: (+) Cough. No hemoptysis. GASTROINTESTINAL: No nausea, vomiting, diarrhea or constipation. GENITOURINARY: No dysuria, frequency, or change in urination. MUSCULOSKELETAL: No joint or muscle swelling or pain. No neck or back pain. SKIN: No rash NEUROLOGIC: No headache, vertigo, loss of consciousness, or change in strength/ sensation. ENDOCRINE: No increased thirst. No abnormal weight change. HEMATOLOGIC/LYMPHATIC: No anemia, easy bleeding, or history of blood clots. ALLERGIC/IMMUNOLOGIC: No hives or skin allergy. <Andie Farris - Last Filed: 12/11/17 15:56> *Physical Exam - Vital Signs Last Vital Signs Temp Pulse Resp BP Pulse Ox 97.6 F 66 17 145/63 96 12/11/17 13:58 12/11/17 13:58 12/11/17 13:58 12/11/17 13:58 12/11/17 13:58 - Physical Exam Comments: 12/11/17 15:36 GENERAL: Awake, alert, and fully oriented, in no acute distress HEAD: No signs of trauma EYES: PERRLA, EOMI, sclera anicteric, conjunctiva clear ENT: Auricles normal inspection, hearing grossly normal, nares patent, oropharynx clear without exudates. Moist mucosa NECK: Normal ROM, supple, no lymphadenopathy, JVD, or masses LUNGS: (+) Coarse breath sounds bilaterally. (+) Sounds like rhonchi consistent with pneumonia. No wheezes, and no crackles HEART: Regular rate and rhythm, normal S1 and S2, no murmurs, rubs or gallops ABDOMEN: Soft, nontender, normoactive bowel sounds. No guarding, no rebound. No masses EXTREMITIES: Normal range of motion, no edema. No clubbing or cyanosis. No cords, erythema, or tenderness NEUROLOGICAL: Cranial nerves II through XII grossly intact. Normal speech. SKIN: Warm, Dry, normal turgor, no rashes or lesions noted. <Andie Farris - Last Filed: 12/11/17 15:56> - Vital Signs Last Vital Signs Temp Pulse Resp BP Pulse Ox 97.6 F 66 17 145/63 96 12/11/17 13:58 12/11/17 13:58 12/11/17 13:58 12/11/17 13:58 12/11/17 13:58 <Roseann Montes De Oca - Last Filed: 12/11/17 18:57> ED Treatment Course - LABORATORY CBC & Chemistry Diagram: 12/11/17 14:50 12/11/17 14:50 - ADDITIONAL ORDERS Additional order review: Laboratory Results 12/11/17 12/11/17 14:50 14:50 Sodium 138 Potassium 4.1 Chloride 99 Carbon Dioxide 31 Anion Gap 8 BUN 32 H Creatinine 1.2 H Creat Clearance w eGFR 44.04 Random Glucose 168 H Calcium 8.5 Magnesium 2.2 Total Bilirubin 0.3 D AST 19 ALT 44 B-Natriuretic Peptide 1208.48 H Total Protein 6.8 Albumin 3.2 L Lipase 174 12/11/17 14:50 RBC 4.62 D MCV 88.2 MCHC 32.0 RDW 15.5 MPV 9.0 Neutrophils % 85.6 H D Lymphocytes % 4.0 L D Monocytes % 10.2 Eosinophils % 0.1 D Basophils % 0.1 <Andie Farris - Last Filed: 12/11/17 15:56> - LABORATORY CBC & Chemistry Diagram: 12/11/17 14:50 12/11/17 14:50 <Roseann Montes De Oca - Last Filed: 12/11/17 18:57> Medical Decision Making - Medical Decision Making 12/11/17 15:41 a/p: 72yo female with cough, congestion, weakness and chest discomfort -recently dx with pericarditis, pericardial effusion and pleural effusion. s/p pericardiocentesis, thorocentesis in October cough x 2 days, sob and weak c/o cp when she coughs cough is productive yellow sputum will check labs, ekg, cxr, flu, blood cultures suspect pna - given coarse bs on exam 12/11/17 15:44 pt with influenza b + will start tamiflu given 2 day hx 12/11/17 16:01 family and patient updated on lab results. will admit case discussed with Dr. Goddard who accepts pt to service will place consult to Dr. Storey <Roseann Montes De Oca - Last Filed: 12/11/17 18:57> *DC/Admit/Observation/Transfer - Attestations Scribe Attestion: 12/11/17 15:37 Documentation prepared by Andie Farris, acting as medical claims assistant for Roseann Montes De Oca DO, MD/. <Andie Farris - Last Filed: 12/11/17 15:56> - Discharge Dispostion Admit: Yes - Attestations Physician Attestion: 12/11/17 15:44 I, Dr. Roseann Montes De Oca DO, attest that this document has been prepared under my direction and personally reviewed by me in its entirety. I further attest, that it accurately reflects all work, treatment, procedures and medical decision -making performed by me. <Rosaenn Montes De Oca - Last Filed: 12/11/17 18:57> Diagnosis at time of Disposition: Influenza B, Dehydration, Chest pain, Lactic acid acidosis - Discharge Dispostion Condition at time of disposition: Guarded
[2017-12-11 15:15] LABS: BASO % 0.1 % (0-2.0); EOS % 0.1 % (0-4.5); HEMATOCRIT 40.8 % (32.4-45.2); MCH 28.2 pg (25.7-33.7); MEAN CELL VOLUME 88.2 fl (80-96); MONO % 10.2 % (3.8-10.2); NEUT % 85.6 % (42.8-82.8); PLATELET COUNT 244 K/MM3 (134-434); RBC 4.62 M/mm3 (3.60-5.2); RDW 15.5 % (11.6-15.6); WHITE BLOOD COUNT 13.3 K/mm3 (4.0-10.0)
[2017-12-11 15:33] LABS: ALBUMIN 3.2 g/dl (3.4-5.0); ANION GAP 8 (8-16); BILIRUBIN,TOTAL 0.3 mg/dL (0.2-1.0); BLOOD UREA NITROGEN 32 mg/dL (7-18); CALCIUM 8.5 mg/dL (8.5-10.1); CHLORIDE 99 mmol/L (98-107); CO2 31 mmol/L (21-32); CREATININE 1.2 mg/dL (0.55-1.02); GLUCOSE,RANDOM 168 mg/dL (74-106); LIPASE 174 U/L (73-393); MAGNESIUM 2.2 mg/dL (1.8-2.4); POTASSIUM 4.1 mmol/L (3.5-5.1); SGOT/AST 19 U/L (15-37); SGPT/ALT 44 U/L (12-78); SODIUM 138 mmol/L (136-145); TOT PROT 6.8 g/dl (6.4-8.2)
[2017-12-11 15:36] LABS: ALK PHOS 114 U/L (45-117)
[2017-12-11] MEDS ORDERED: OSELTAMIVIR PHOSPHATE 75 MG CAPSULE PO ONE (15:39)
[2017-12-11] MEDS ORDERED: ACETAMINOPHEN 325 MG TABLET (FP) PO ONE (15:45)
[2017-12-11] MEDS ORDERED: ALBUTEROL SO4 2.5/IPRATROPIUM 0.5 INH SOL 3 ML VIAL.NEB. NEB ONE ×2 (15:45→16:12)
[2017-12-11] MEDS ORDERED: SODIUM CHLORIDE 0.9% 1000 ML INFUS.BAG IV ONE ×3 (15:45→18:56)
[2017-12-11 15:55] LABS: INR 1.33 (0.82-1.09)
[2017-12-11 15:58] LABS: ACTIVATED PTT 24.5 SECONDS (26.9-34.4)
[2017-12-11] MEDS ORDERED: ACETAMINOPHEN 325 MG TABLET (FP) ONE (16:11)
[2017-12-11] MEDS ORDERED: OSELTAMIVIR PHOSPHATE 75 MG CAPSULE ONE (16:12)
[2017-12-12 00:33] VITALS: BMI 31.0
[2017-12-12] MEDS ORDERED: SODIUM CHLORIDE 0.45% 1,000 ML IV SCH (01:15)
[2017-12-12] MEDS ORDERED: ACETAMINOPHEN 325 MG TABLET (FP) PO PRN (01:56)
[2017-12-12] MEDS ORDERED: ALPRAZolam 0.25 MG TABLET PO PRN (01:56)
[2017-12-12] MEDS ORDERED: ACETAMINOPHEN 325 MG TABLET (FP) ONE (01:59)
[2017-12-12] MEDS: OSELTAMIVIR PHOSPHATE 75 MG CAPSULE PO SCH ×3 (02:06→21:15)
[2017-12-12] MEDS: methylPREDNISolone NA SUCC 40 MG/1 ML VIAL IVPUSH SCH ×3 (02:06→17:33)
[2017-12-12] MEDS ORDERED: FUROSEMIDE 40 MG/4 ML INJECTABLE VIAL ONE (06:59)
[2017-12-12] MEDS ORDERED: CARVEDILOL 12.5 MG TABLET (FP) PO SCH ×3 (07:00→10:00)
[2017-12-12] MEDS ORDERED: guaiFENesin/D-M SUGAR-FREE/ACLHOL-FREE 118 ML BOTTLE PO PRN (07:02)
[2017-12-12] MEDS: sitaGLIPtin PHOSPHATE 100 MG TABLET (FP) PO SCH (07:06)
[2017-12-12] MEDS: metFORMIN HCL 500 MG TABLET (FP) PO SCH ×2 (07:06→17:30)
[2017-12-12] MEDS: INSULIN SLIDING SCALE (NOVOLOG) 1 VIAL SQ SCH ×4 (07:16→21:16)
[2017-12-12] MEDS: METOCLOPRAMIDE HCL 10 MG TABLET (FP) PO PRN ×2 (07:16→21:15)
[2017-12-12] MEDS: FUROSEMIDE 40 MG/4 ML INJECTABLE VIAL IVPUSH SCH (07:20)
[2017-12-12 08:07] LABS: INR 1.36 (0.82-1.09); PROTHROMBIN TIME (PATIENT) 15.4 SEC (9.98-11.88)
[2017-12-12 08:43] LABS: ALBUMIN 2.8 g/dl (3.4-5.0); ANION GAP 11 (8-16); BLOOD UREA NITROGEN 31 mg/dL (7-18); CALCIUM 8.2 mg/dL (8.5-10.1); CHLORIDE 105 mmol/L (98-107); CO2 25 mmol/L (21-32); GLUCOSE,RANDOM 199 mg/dL (74-106); POTASSIUM 4.2 mmol/L (3.5-5.1); SODIUM 141 mmol/L (136-145)
[2017-12-12 08:49] LABS: ALK PHOS 96 U/L (45-117); BILIRUBIN,TOTAL 0.3 mg/dL (0.2-1.0); SGOT/AST 22 U/L (15-37); SGPT/ALT 41 U/L (12-78); TOT PROT 5.9 g/dl (6.4-8.2)
--- NOTE | 2017-12-12 09:07 | PN ---
Progress Note, Physician Chief Complaint: Recently admitted here, now returns w/ + INFLUENZA 72F with PAF, PPM, prior CVA, HTN, renal artery stenosis, suspected connective tissue dz (SLE negative) recent acute pericarditis and pleuritis requiring pericardiocentesis. Has been on prednisone and colchicine. She now presents with fever and cough, found to be flu +. Of note, INR is subtherapeutic. She was formerly on NOAC, but as per rheum, switched to coumadin recently due to + Anti-cardiolipin Abs. NOACS not approved for this indication. - Current Medication List Current Medications: Active Medications Acetaminophen (Tylenol -) 650 mg PO Q6H PRN PRN Reason: PAIN Last Admin: 12/12/17 02:06 Dose: 650 mg Albuterol/Ipratropium (Duoneb -) 1 amp NEB Q4H PRN PRN Reason: SHORTNESS OF BREATH Alprazolam (Xanax -) 0.5 mg PO Q12H PRN PRN Reason: ANXIETY Atorvastatin Calcium (Lipitor -) 40 mg PO HS [facility] Carvedilol (Coreg -) 12.5 mg PO BID [facility] Last Admin: 12/12/17 07:20 Dose: 12.5 mg Clopidogrel Bisulfate (Plavix -) 75 mg PO DAILY [facility] Colchicine (Colcrys -) 0.6 mg PO DAILY [facility] Diltiazem HCl (Cardizem Cd -) 240 mg PO DAILY [facility] Last Admin: 12/12/17 07:19 Dose: 240 mg Dorzolamide HCl (Trusopt 2%) 1 drop OU BID [facility] Furosemide (Lasix Injection -) 40 mg IVPUSH DAILY [facility] Last Admin: 12/12/17 07:20 Dose: 40 mg Guaifenesin (Diabetic Tussin Dm -) 5 ml PO Q6H PRN PRN Reason: COUGH Levofloxacin (Levaquin 500 Mg Premixed Ivpb -) 500 mg in 100 mls @ 100 mls/hr IVPB DAILY [facility] Insulin Aspart (Novolog Vial Sliding Scale -) 1 vial SQ ACHS [facility] PRN Reason: Protocol Last Admin: 12/12/17 07:16 Dose: 2 units Latanoprost (Xalatan 0.005% Eye Drops -) 1 drop OU HS [facility] Metformin HCl (Glucophage -) 1,000 mg PO BIDAC [facility] Last Admin: 12/12/17 07:06 Dose: 1,000 mg Methylprednisolone Sodium Succinate (Solu-Medrol -) 40 mg IVPUSH Q8H-IV [facility] Last Admin: 12/12/17 02:06 Dose: 40 mg Metoclopramide HCl (Reglan -) 5 mg PO Q8H PRN PRN Reason: NAUSEA/GI UPSET Last Admin: 12/12/17 07:16 Dose: 5 mg Oseltamivir Phosphate (Tamiflu -) 75 mg PO BID [facility] Stop: 12/16/17 10:01 Last Admin: 12/12/17 02:06 Dose: 75 mg Sitagliptin Phosphate (Januvia -) 100 mg PO DAILY@0700 [facility] Last Admin: 12/12/17 07:06 Dose: 100 mg Timolol Maleate (Timoptic 0.5%) 1 drop OU BID [facility] Warfarin Sodium (Coumadin -) 1 mg PO DAILY@1800 [facility] - Objective Vital Signs: Vital Signs Temperature 97.6 F 12/12/17 06:01 Pulse Rate 60 12/12/17 06:01 Respiratory Rate 22 12/12/17 06:01 Blood Pressure 188/77 12/12/17 06:01 O2 Sat by Pulse Oximetry (%) 100 12/12/17 00:34 Constitutional: Yes: No Distress Eyes: Yes: Conjunctiva Clear Cardiovascular: Yes: Regular Rate and Rhythm (paced) Respiratory: Yes: Rhonchi (scattered wheeze), Other Gastrointestinal: Yes: Soft Edema: No Neurological: Yes: Alert, Oriented Labs: CBC, BMP 12/12/17 06:15 INR, PTT INR 1.36 (0.82-1.09) H 12/12/17 06:15 Laboratory Tests 12/11/17 12/11/17 12/11/17 14:50 18:07 20:44 WBC 13.3 H D Hgb 13.0 D Hct 40.8 D Plt Count 244 D INR Potassium BUN Creatinine Lactic Acid 4.1 H* 2.8 H* Troponin I 12/12/17 12/12/17 12/12/17 02:15 06:15 06:15 WBC Hgb Hct Plt Count INR 1.36 H Potassium 4.2 BUN 31 H Creatinine 1.0 Lactic Acid Troponin I 0.02 - ....Imaging Chest X-ray: Report Reviewed EKG: Report Reviewed, Image Reviewed (TELE: Apaced) Problem List - Problems (1) Hypertension Code(s): I10 - ESSENTIAL (PRIMARY) HYPERTENSION Qualifiers: Hypertension type: essential hypertension Qualified Code(s): I10 - Essential (primary) hypertension (2) Anticardiolipin antibody positive Code(s): R76.8 - OTHER SPECIFIED ABNORMAL IMMUNOLOGICAL FINDINGS IN SERUM (3) Pericarditis Code(s): I31.9 - DISEASE OF PERICARDIUM, UNSPECIFIED Qualifiers: Pericarditis type: idiopathic (4) Pleuritis Code(s): R09.1 - PLEURISY (5) Influenza B Code(s): J10.1 - FLU DUE TO OTH IDENT INFLUENZA VIRUS W OTH RESP MANIFEST (6) Lactic acid acidosis Code(s): E87.2 - ACIDOSIS (7) Afib Code(s): I48.91 - UNSPECIFIED ATRIAL FIBRILLATION Qualifiers: Atrial fibrillation type: paroxysmal Qualified Code(s): I48.0 - Paroxysmal atrial fibrillation (8) Diabetes Code(s): E11.9 - TYPE 2 DIABETES MELLITUS WITHOUT COMPLICATIONS Qualifiers: Diabetes mellitus type: type 2 Assessment/Plan IMP: Influenza B + PAF s/p PPM H/o CVA HTN Renal artery stenosis CAD Suspected connective tissue disease, + anticardiolipin AB (SLE negative, markedly positive MEGHANN) REC: Treatment of flu as per PMD. Adjust coumadin for INR 2-3 (AF, + anticardiolipin AB, prior CVA). BP is above goal, will increase Coreg. Thank you.
[2017-12-12] MEDS: CLOPIDOGREL BISULFATE 75 MG TABLET (FP) PO SCH (09:55)
[2017-12-12] MEDS: COLCHICINE 0.6 MG TABLET (FP) PO SCH (09:55)
[2017-12-12] MEDS: DORZOLAMIDE 2% HCL OPHTHALMIC SOLUTION 10 ML BOTTLE OU SCH ×2 (09:55→21:15)
[2017-12-12] MEDS: TIMOLOL 0.5% OPHTHALMIC SOL 5 ML BOTTLE OU SCH ×2 (09:56→21:15)
[2017-12-12] MEDS ORDERED: FUROSEMIDE 40 MG/4 ML INJECTABLE VIAL IVPUSH SCH (10:00)
[2017-12-12 10:07] LABS: BASO % 0.1 % (0-2.0); EOS % 0.1 % (0-4.5); HEMATOCRIT 38.5 % (32.4-45.2); HEMOGLOBIN 12.1 GM/dL (10.7-15.3); LYMPH % 6.9 % (8-40); MCHC 31.6 g/dl (32.0-36.0); MEAN CELL VOLUME 88.8 fl (80-96); MEAN PLT VOLUME 9.1 fl (7.5-11.1); NEUT % 89.9 % (42.8-82.8); PLATELET COUNT 197 K/MM3 (134-434); RBC 4.34 M/mm3 (3.60-5.2); RDW 15.5 % (11.6-15.6); WHITE BLOOD COUNT 10.9 K/mm3 (4.0-10.0)
[2017-12-12] MEDS ORDERED: CARVEDILOL 12.5 MG TABLET (FP) PO ONE (10:15)
[2017-12-12] MEDS: CARVEDILOL 25 MG TABLET (FP) PO SCH ×2 (10:26→21:15)
--- NOTE | 2017-12-12 10:31 | PN ---
Progress Note, Physician Chief Complaint: ID Appreciate kind referal Dx Influenza Appears comfortable - Current Medication List Current Medications: Active Medications Acetaminophen (Tylenol -) 650 mg PO Q6H PRN PRN Reason: PAIN Last Admin: 12/12/17 02:06 Dose: 650 mg Albuterol/Ipratropium (Duoneb -) 1 amp NEB Q4H PRN PRN Reason: SHORTNESS OF BREATH Alprazolam (Xanax -) 0.5 mg PO Q12H PRN PRN Reason: ANXIETY Atorvastatin Calcium (Lipitor -) 40 mg PO HS [facility] Carvedilol (Coreg -) 25 mg PO BID [facility] Last Admin: 12/12/17 10:26 Dose: Not Given Clopidogrel Bisulfate (Plavix -) 75 mg PO DAILY [facility] Last Admin: 12/12/17 09:55 Dose: 75 mg Colchicine (Colcrys -) 0.6 mg PO DAILY [facility] Last Admin: 12/12/17 09:55 Dose: 0.6 mg Diltiazem HCl (Cardizem Cd -) 240 mg PO DAILY [facility] Last Admin: 12/12/17 07:19 Dose: 240 mg Dorzolamide HCl (Trusopt 2%) 1 drop OU BID [facility] Last Admin: 12/12/17 09:55 Dose: 1 drop Furosemide (Lasix Injection -) 40 mg IVPUSH DAILY [facility] Last Admin: 12/12/17 07:20 Dose: 40 mg Guaifenesin (Diabetic Tussin Dm -) 5 ml PO Q6H PRN PRN Reason: COUGH Last Admin: 12/12/17 09:54 Dose: 5 ml Levofloxacin (Levaquin 500 Mg Premixed Ivpb -) 500 mg in 100 mls @ 100 mls/hr IVPB DAILY [facility] Last Admin: 12/12/17 10:00 Dose: 100 mls/hr Insulin Aspart (Novolog Vial Sliding Scale -) 1 vial SQ ACHS [facility] PRN Reason: Protocol Last Admin: 12/12/17 07:16 Dose: 2 units Latanoprost (Xalatan 0.005% Eye Drops -) 1 drop OU [facility] Metformin HCl (Glucophage -) 1,000 mg PO BIDAC [facility] Last Admin: 12/12/17 07:06 Dose: 1,000 mg Methylprednisolone Sodium Succinate (Solu-Medrol -) 40 mg IVPUSH Q8H-IV [facility] Last Admin: 12/12/17 09:55 Dose: 40 mg Metoclopramide HCl (Reglan -) 5 mg PO Q8H PRN PRN Reason: NAUSEA/GI UPSET Last Admin: 12/12/17 07:16 Dose: 5 mg Oseltamivir Phosphate (Tamiflu -) 75 mg PO BID [facility] Stop: 12/16/17 10:01 Last Admin: 12/12/17 09:55 Dose: 75 mg Sitagliptin Phosphate (Januvia -) 100 mg PO DAILY@0700 [facility] Last Admin: 12/12/17 07:06 Dose: 100 mg Timolol Maleate (Timoptic 0.5%) 1 drop OU BID [facility] Last Admin: 12/12/17 09:56 Dose: 1 drop Warfarin Sodium (Coumadin -) 3 mg PO DAILY@1800 [facility] - Objective Vital Signs: Vital Signs Temperature 97.6 F 12/12/17 06:01 Pulse Rate 60 12/12/17 06:01 Respiratory Rate 22 12/12/17 06:01 Blood Pressure 188/77 12/12/17 06:01 O2 Sat by Pulse Oximetry (%) 100 12/12/17 00:34 Labs: CBC, BMP 12/12/17 06:15 12/12/17 06:15 INR, PTT INR 1.36 (0.82-1.09) H 12/12/17 06:15 Problem List - Problems (1) Anticardiolipin antibody positive Code(s): R76.8 - OTHER SPECIFIED ABNORMAL IMMUNOLOGICAL FINDINGS IN SERUM (2) Influenza B Code(s): J10.1 - FLU DUE TO OTH IDENT INFLUENZA VIRUS W OTH RESP MANIFEST Assessment/Plan Microbiology 12/11/17 15:00 Nasopharyngeal Swab Influenza Types A,B Antigen (ROX) - Final 12/11/17 15:00 Nasopharyngeal Swab - Final Laboratory Tests 12/11/17 12/11/17 12/11/17 14:50 18:07 20:44 WBC 13.3 H D RBC Hct Plt Count Creat Clearance w eGFR Lactic Acid 4.1 H* 2.8 H* 12/12/17 12/12/17 12/12/17 06:15 06:15 06:15 WBC 10.9 H RBC 4.34 Hct 38.5 Plt Count 197 Creat Clearance w eGFR 54.35 Lactic Acid 2.4 H* Assessment History of connective tissue disease as reviewed in chart NOw with Influenza B Plan Tamilflu and isolation Do not see need for antibiotics Stop Levofloxacin Discharge planning Marce EMERSON
[2017-12-12] MEDS ORDERED: INSULIN (NOVOLOG) ASPART 100 UNITS/ML 10ML VIAL ONE (11:35)
--- NOTE | 2017-12-12 12:08 | HP ---
Admitting History and Physical - Admission History of Present Illness: Pt is a 72 y/o female w/ PMH significant for HTN, HLD, paroxysmal Afib, CHF, diabetes, CVA w/ residual rt sided weakness, sp/p pacemaker placement and renal artery stenosis. In 10/24 pt underwent cardiac cath/pericardiocentesis/ thoracentesis and was dx'ed w/ pericarditis/pericardial effusion. Pt now presented to the ER w/ cough wc is productive w/ yellowish sputum a 1 week wc worsened in the last 2 days w/ low grade temp. In the ER pt was found to have WBC of 13.3, lactic acid 4.1 and BNP of >1200. She was also positive for Influenza B. Pt does c/o chest tightness but denies any palpitations/wheezing/ SOB. 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 Cardiovascular: Yes: AFIB, HTN, Hyperlipdemia, Other (pericarditis Pericardial effusion) Renal/: Yes: Other (Renal artery stenosis) ...: No Endocrine: Yes: Diabetes Mellitus - Past Surgical History Past Surgical History: Yes: Permanent Pacemaker - Advance Directives Advance Directives: Yes: Health Care Proxy - Smoking History Smoking history: Former smoker Have you smoked in the past 12 months: No Aproximately how many cigarettes per day: 5 If you are a former smoker, when did you quit?: 1993 - Alcohol/Substance Use Hx Alcohol Use: No Home Medications - Allergies Allergies/Adverse Reactions: Allergies Allergy/AdvReac Type Severity Reaction Status Date / Time aspirin Allergy Severe Verified 12/11/17 13:57 Penicillins Allergy Severe Verified 12/11/17 13:57 diclofenac Allergy Verified 12/11/17 13:57 shellfish derived Allergy Verified 12/11/17 13:57 lactose AdvReac Verified 12/11/17 13:57 iv contrast Allergy Uncoded 12/11/17 13:57 - Home Medications Home Medications: Ambulatory Orders Acetaminophen [Pain Relief] 650 mg PO PRN PRN 10/09/17 Atorvastatin Ca [Lipitor] 40 mg PO HS 10/09/17 Carvedilol [Coreg -] 12.5 mg PO BID 10/09/17 Clopidogrel Bisulfate [Plavix -] 75 mg PO DAILY 10/09/17 Colchicine 0.6 mg PO BID 10/09/17 Diltiazem HCl [Diltiazem 24Hr Cd] 240 mg PO DAILY 10/09/17 Latanoprost 0.005% Eye Drops [Xalatan 0.005% Eye Drops -] 1 drop OU HS 10/09/17 Metoclopramide HCl [Reglan] 5 mg PO DAILY PRN 10/09/17 Furosemide [Lasix -] 40 mg PO DAILY 12/11/17 Insulin Aspart [Novolog] 0 unit SQ PRN 12/11/17 Insulin Glargine,Hum.rec.anlog [Lantus] 20 unit SQ AM 12/11/17 Linagliptin/Metformin HCl [Jentadueto 2.5 mg-500 mg Tab] 1 each PO BIDAC Prednisone [Deltasone -] 20 mg PO BID 12/11/17 Warfarin Sodium [Coumadin] 1 mg PO DAILY 12/11/17 Alprazolam [Xanax] 0.5 mg PO BID PRN 12/12/17 Dorzolamide HCl [Trusopt 2%] 1 drop OU BID 12/12/17 Timolol 0.5% [Timoptic 0.5%] 1 drop OU BID 12/12/17 Ubidecarenone [Coq-10] 200 mg PO DAILY 12/12/17 Family Disease History - Family Disease History Family History: Unremarkable Review of Systems - Review of Systems Constitutional: reports: Lethargy, Loss of Appetite, Weakness Eyes: reports: No Symptoms HENT: reports: No Symptoms Neck: reports: No Symptoms Cardiovascular: reports: Chest Pain Respiratory: reports: Cough Gastrointestinal: reports: No Symptoms Genitourinary: reports: No Symptoms Physical Examination Vital Signs: Vital Signs Temperature 97.6 F 12/12/17 10:00 Pulse Rate 65 12/12/17 10:00 Respiratory Rate 18 12/12/17 10:00 Blood Pressure 138/60 12/12/17 10:00 O2 Sat by Pulse Oximetry (%) 98 12/12/17 09:00 Constitutional: Yes: No Distress HENT: Yes: WNL Neck: Yes: WNL, Supple Cardiovascular: Yes: WNL, Regular Rate and Rhythm Respiratory: Yes: Diminished Gastrointestinal: Yes: WNL, Normal Bowel Sounds, Soft Musculoskeletal: Yes: WNL Extremities: Yes: WNL Edema: No Neurological: Yes: WNL, Alert, Oriented ...Motor Strength: WNL Labs: CBC, BMP 12/12/17 06:15 12/12/17 06:15 Problem List - Problems (1) Elevated lactic acid level Assessment/Plan: Pt unable to be given IVF due to CHF Cont to trend lactic acid Pt given IV levaquin due to leukocytosis and elevated lactic acid Cont to monitor cultures As per ID Code(s): R79.89 - OTHER SPECIFIED ABNORMAL FINDINGS OF BLOOD CHEMISTRY (2) Influenza B Assessment/Plan: Cont tamiflu Code(s): J10.1 - FLU DUE TO OTH IDENT INFLUENZA VIRUS W OTH RESP MANIFEST (3) Chest pain Assessment/Plan: Due to pericarditis Cont colcrys As per cardio Code(s): R07.9 - CHEST PAIN, UNSPECIFIED (4) Pericarditis Assessment/Plan: Cont colcrys Code(s): I31.9 - DISEASE OF PERICARDIUM, UNSPECIFIED Qualifiers: Pericarditis type: idiopathic (5) Afib Assessment/Plan: Heart rate controlled Cont coumadin Coumadin dose increased due to subtherapeutic pt/inr Monitor pt/inr daily Code(s): I48.91 - UNSPECIFIED ATRIAL FIBRILLATION Qualifiers: Atrial fibrillation type: paroxysmal Qualified Code(s): I48.0 - Paroxysmal atrial fibrillation (6) CHF (congestive heart failure) Assessment/Plan: Cont IV lasix Monitor electrolytes Code(s): I50.9 - HEART FAILURE, UNSPECIFIED (7) Diabetes Assessment/Plan: Cont metformin Cont sliding scale w/ covergae Code(s): E11.9 - TYPE 2 DIABETES MELLITUS WITHOUT COMPLICATIONS Qualifiers: Diabetes mellitus type: type 2 (8) HLD (hyperlipidemia) Assessment/Plan: Cont lipitor Code(s): E78.5 - HYPERLIPIDEMIA, UNSPECIFIED (9) HTN (hypertension) Assessment/Plan: BP stable Code(s): I10 - ESSENTIAL (PRIMARY) HYPERTENSION
--- NOTE | 2017-12-12 12:34 | EKG ---
Test Reason : Blood Pressure : / mmHG Vent. Rate : 066 BPM Atrial Rate : 066 BPM P-R Int : 180 ms QRS Dur : 122 ms QT Int : 422 ms P-R-T Axes : 032 004 185 degrees QTc Int : 442 ms Atrial-paced rhythm LEFT BUNDLE BRANCH BLOCK ABNORMAL ECG WHEN COMPARED WITH ECG OF 09-OCT-2017 09:07, ELECTRONIC ATRIAL PACEMAKER HAS REPLACED ATRIAL FIBRILLATION CLINICAL CORRELATION IS RECOMMENDED Confirmed by ABDIEL EMERSON, SANTOSH ([id number]) on 12/12/2017 12:34:33 PM Referred By: Confirmed By:SANTOSH MEADOWS MD
--- NOTE | 2017-12-12 12:39 | CON.PULM ---
Consult Consult Specialty:: PULMONARY Referred by:: Dr. Goddard Reason for Consultation:: cough - History of Present Illness Chief Complaint: cough History of Present Illness: 72yo female with h/o HTN, suspected connective tissue disease with recent pericardiocentesis, paroxysmal atrial fibrillation s/p PPM, h/o CVA, renal artery stenosis who presents with fevers and cough. Cough productive of white sputum. No chest pain or palpitations. Found to have Influenza B on swab. She is a remote smoker, denies any history of asthma or COPD. 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 Cardio/Vascular: Yes: AFIB, HTN, Hyperlipdemia, Other (pericarditis) ...: No Endocrine: Yes: Diabetes Mellitus - Past Surgical History Past Surgical History: Yes: Permanent Pacemaker - Alcohol/Substance Use Hx Alcohol Use: No - Smoking History Smoking history: Former smoker Have you smoked in the past 12 months: No Aproximately how many cigarettes per day: 5 If you are a former smoker, when did you quit?: 1993 Home Medications - Allergies Allergies/Adverse Reactions: Allergies Allergy/AdvReac Type Severity Reaction Status Date / Time aspirin Allergy Severe Verified 12/11/17 13:57 Penicillins Allergy Severe Verified 12/11/17 13:57 diclofenac Allergy Verified 12/11/17 13:57 shellfish derived Allergy Verified 12/11/17 13:57 lactose AdvReac Verified 12/11/17 13:57 iv contrast Allergy Uncoded 12/11/17 13:57 - Home Medications Home Medications: Ambulatory Orders Acetaminophen [Pain Relief] 650 mg PO PRN PRN 10/09/17 Atorvastatin Ca [Lipitor] 40 mg PO HS 10/09/17 Carvedilol [Coreg -] 12.5 mg PO BID 10/09/17 Clopidogrel Bisulfate [Plavix -] 75 mg PO DAILY 10/09/17 Colchicine 0.6 mg PO BID 10/09/17 Diltiazem HCl [Diltiazem 24Hr Cd] 240 mg PO DAILY 10/09/17 Latanoprost 0.005% Eye Drops [Xalatan 0.005% Eye Drops -] 1 drop OU HS 10/09/17 Metoclopramide HCl [Reglan] 5 mg PO DAILY PRN 10/09/17 Furosemide [Lasix -] 40 mg PO DAILY 12/11/17 Insulin Aspart [Novolog] 0 unit SQ PRN 12/11/17 Insulin Glargine,Hum.rec.anlog [Lantus] 20 unit SQ AM 12/11/17 Linagliptin/Metformin HCl [Jentadueto 2.5 mg-500 mg Tab] 1 each PO BIDAC Prednisone [Deltasone -] 20 mg PO BID 12/11/17 Warfarin Sodium [Coumadin] 1 mg PO DAILY 12/11/17 Alprazolam [Xanax] 0.5 mg PO BID PRN 12/12/17 Dorzolamide HCl [Trusopt 2%] 1 drop OU BID 12/12/17 Timolol 0.5% [Timoptic 0.5%] 1 drop OU BID 12/12/17 Ubidecarenone [Coq-10] 200 mg PO DAILY 12/12/17 Review of Systems - Review of Systems Constitutional: reports: Fever, Weakness Eyes: denies: Recent Change in Vision HENT: denies: Nasal Congestion, Throat Pain Neck: denies: Stiffness, Tenderness Cardiovascular: denies: Chest Pain, Palpitations, Shortness of Breath Respiratory: reports: Cough. denies: Hemoptysis, Wheezing Gastrointestinal: denies: Abdominal Pain, Diarrhea, Nausea Genitourinary: denies: Dysuria, Hematuria Neurological: denies: Dizziness, Headache Physical Exam Vital Sings: Vital Signs Temperature 97.6 F 12/12/17 10:00 Pulse Rate 65 12/12/17 10:00 Respiratory Rate 18 12/12/17 10:00 Blood Pressure 138/60 12/12/17 10:00 O2 Sat by Pulse Oximetry (%) 98 12/12/17 09:00 Constitutional: Yes: Calm Eyes: Yes: Conjunctiva Clear, EOM Intact HENT: Yes: Atraumatic, Normocephalic Neck: Yes: Supple, Trachea Midline Cardiovascular: Yes: Regular Rate and Rhythm Respiratory: Yes: Regular, Diminished (decreased breath sounds at the bases) ...Clubbing: No Gastrointestinal: Yes: Normal Bowel Sounds, Soft. No: Tenderness Edema: No Labs: CBC, BMP 12/12/17 06:15 12/12/17 06:15 Imaging - Results Chest X-ray: Report Reviewed, Image Reviewed (no infiltrates) Problem List - Problems (1) Influenza B Code(s): J10.1 - FLU DUE TO OTH IDENT INFLUENZA VIRUS W OTH RESP MANIFEST (2) Lactic acid acidosis Code(s): E87.2 - ACIDOSIS (3) Anticardiolipin antibody positive Code(s): R76.8 - OTHER SPECIFIED ABNORMAL IMMUNOLOGICAL FINDINGS IN SERUM (4) Hypertension Code(s): I10 - ESSENTIAL (PRIMARY) HYPERTENSION Qualifiers: Hypertension type: essential hypertension Qualified Code(s): I10 - Essential (primary) hypertension Assessment/Plan Influenza B Lactic Acidosis HTN +anti-cardiolipin Ab - continue tamiflu - IVF - trend lactate - continue cardiac meds - continue anticoagulation Thank you for this consult Giancarlo Rubio MD
--- NOTE | 2017-12-12 13:16 | CONS ---
DATE OF CONSULTATION: DATE OF DICTATION: 12/12/2017 This is a 72-year-old female, originally from the [place], who I am asked to see for evaluation of influenza B. She has a complicated past medical history including hypertension, hyperlipidemia, status post pacemaker, atrial fibrillation, cardiac catheterization, CVA, and pericarditis with an anticardiolipin syndrome, thought to have unspecified connective tissue disease. She has had, in the past, pericardiocentesis and thoracentesis before being discharged in mid-October 2017. Patient presents now with a productive cough with yellow sputum and some mild wheezing. In the emergency room, she had a rapid antigen test and was found to be influenza B positive. Currently, she appears alert, oriented, and in no acute respiratory distress. PAST MEDICAL HISTORY: As noted above. Medications include Eliquis, Lipitor, carvedilol, Plavix, colchicine, diltiazem, Lasix, insulin, Coumadin. ALLERGIES: To ASPIRIN, PENICILLIN, DICLOFENAC, and IV CONTRAST. SOCIAL HISTORY: [place] immigrant, living in the [place] many years. Lives with her daughter. No recent travel. Nonsmoker. No history of alcohol or substance abuse. FAMILY HISTORY: Reviewed and noncontributory. REVIEW OF SYSTEMS: Respiratory: Positive productive cough, sputum. No shortness of breath. Cardiac: No chest pain, palpitations, pleuritic chest pain. Gastrointestinal: No nausea, vomiting, diarrhea, abdominal pain. Genitourinary: No dysuria, hematuria, urinary frequency. PHYSICAL EXAMINATION: General: She was an alert female in no acute distress. Vital Signs: Temperature was 97.6, pulse 60, blood pressure 187/87, respirations 20. Neck: Supple with no adenopathy. Lungs: Coarse breath sounds bilaterally. Some rhonchi. No wheezing. Heart: S1, S2. Irregular rhythm. No audible murmur, rub, gallop. Abdomen: Soft, nontender. Normoactive bowel sounds. No guarding, no rebound. Extremities: No clubbing, cyanosis or edema. The white count is 13,000, hemoglobin 13, platelets of 244, INR 1.36. BUN 31, creatinine 1.0. Original lactic acid 4.1, today 2.4. Liver enzymes within normal limits. Chest x-ray was reviewed and shows no evidence of acute pulmonary infiltrate. A right pacemaker is seen along with some right shoulder calcifications. Two sets of blood cultures thus far no growth from yesterday. ASSESSMENT: Influenza B, clinically appears stable. PLAN: She is currently on Tamiflu along with droplet precautions. She will continue Tamiflu. I do not see a reason to continue to give the levofloxacin at this point, and hopefully she can be discharged soon, to complete Tamiflu at home. ARIE PEACOCK M.D. TRISTEN/[id number]
[2017-12-12] MEDS: WARFARIN NA 7.5 MG TABLET (FP) PO SCH (17:34)
[2017-12-12] MEDS ORDERED: WARFARIN NA 5 MG, WARFARIN NA 2.5 MG PO SCH (18:00)
[2017-12-12] MEDS ORDERED: WARFARIN NA 1 MG TABLET (FP) PO SCH (18:00)
[2017-12-12] MEDS ORDERED: WARFARIN NA 3 MG TABLET PO SCH ×2 (18:00)
[2017-12-12] MEDS ORDERED: PT OWN MED DRAWER 7, Y5N ONE (21:02)
[2017-12-12] MEDS ORDERED: LATANOPROST 0.005% OPHTH SOLN 2.5ML BOTTLE OU SCH (22:00)
[2017-12-12] MEDS ORDERED: ATORVASTATIN CA 40 MG TABLET (FP) PO SCH (22:00)
[2017-12-13] MEDS: methylPREDNISolone NA SUCC 40 MG/1 ML VIAL IVPUSH SCH ×3 (02:45→17:36)
[2017-12-13] MEDS: ALBUTEROL SO4 2.5/IPRATROPIUM 0.5 INH SOL 3 ML VIAL.NEB. NEB PRN ×2 (05:44→11:10)
[2017-12-13 06:42] LABS: BASO % 0.1 % (0-2.0); HEMATOCRIT 34.6 % (32.4-45.2); HEMOGLOBIN 11.2 GM/dL (10.7-15.3); LYMPH % 5.3 % (8-40); MCH 28.5 pg (25.7-33.7); MCHC 32.4 g/dl (32.0-36.0); MEAN PLT VOLUME 9.4 fl (7.5-11.1); MONO % 2.8 % (3.8-10.2); NEUT % 91.8 % (42.8-82.8); PLATELET COUNT 183 K/MM3 (134-434); RBC 3.93 M/mm3 (3.60-5.2); RDW 15.7 % (11.6-15.6); WHITE BLOOD COUNT 10.5 K/mm3 (4.0-10.0)
[2017-12-13] MEDS: INSULIN SLIDING SCALE (NOVOLOG) 1 VIAL SQ SCH ×3 (06:53→17:30)
[2017-12-13 06:54] LABS: INR 1.67 (0.82-1.09); PROTHROMBIN TIME (PATIENT) 18.9 SEC (9.98-11.88)
[2017-12-13] MEDS: metFORMIN HCL 500 MG TABLET (FP) PO SCH ×2 (06:54→17:30)
[2017-12-13] MEDS: sitaGLIPtin PHOSPHATE 100 MG TABLET (FP) PO SCH (06:54)
[2017-12-13 07:18] LABS: ALBUMIN 2.6 g/dl (3.4-5.0); ANION GAP 11 (8-16); BLOOD UREA NITROGEN 38 mg/dL (7-18); CALCIUM 8.6 mg/dL (8.5-10.1); CHLORIDE 101 mmol/L (98-107); CO2 26 mmol/L (21-32); CREATININE 1.1 mg/dL (0.55-1.02); GLUCOSE,RANDOM 253 mg/dL (74-106); SGOT/AST 20 U/L (15-37); SGPT/ALT 39 U/L (12-78); SODIUM 138 mmol/L (136-145)
[2017-12-13 07:19] LABS: ALK PHOS 85 U/L (45-117); BILIRUBIN,TOTAL 0.3 mg/dL (0.2-1.0); TOT PROT 5.5 g/dl (6.4-8.2)
[2017-12-13] MEDS: COLCHICINE 0.6 MG TABLET (FP) PO SCH (10:18)
[2017-12-13] MEDS: CLOPIDOGREL BISULFATE 75 MG TABLET (FP) PO SCH (10:18)
[2017-12-13] MEDS: CARVEDILOL 25 MG TABLET (FP) PO SCH (10:18)
[2017-12-13] MEDS: FUROSEMIDE 40 MG/4 ML INJECTABLE VIAL IVPUSH SCH (10:18)
[2017-12-13] MEDS: OSELTAMIVIR PHOSPHATE 75 MG CAPSULE PO SCH (10:19)
[2017-12-13] MEDS: TIMOLOL 0.5% OPHTHALMIC SOL 5 ML BOTTLE OU SCH (10:20)
[2017-12-13] MEDS: DORZOLAMIDE 2% HCL OPHTHALMIC SOLUTION 10 ML BOTTLE OU SCH (10:20)
--- NOTE | 2017-12-13 12:29 | PN ---
Progress Note, Physician History of Present Illness: PULMONARY ALERT,FEELING BETTER,-RESP DISTRESS - Current Medication List Current Medications: Active Medications Acetaminophen (Tylenol -) 650 mg PO Q6H PRN PRN Reason: PAIN Last Admin: 12/12/17 02:06 Dose: 650 mg Albuterol/Ipratropium (Duoneb -) 1 amp NEB Q4H PRN PRN Reason: SHORTNESS OF BREATH Last Admin: 12/13/17 11:10 Dose: 1 amp Alprazolam (Xanax -) 0.5 mg PO Q12H PRN PRN Reason: ANXIETY Last Admin: 12/12/17 23:15 Dose: 0.5 mg Atorvastatin Calcium (Lipitor -) 40 mg PO HS [facility] Last Admin: 12/12/17 21:15 Dose: 40 mg Carvedilol (Coreg -) 25 mg PO BID [facility] Last Admin: 12/13/17 10:18 Dose: 25 mg Clopidogrel Bisulfate (Plavix -) 75 mg PO DAILY [facility] Last Admin: 12/13/17 10:18 Dose: 75 mg Colchicine (Colcrys -) 0.6 mg PO DAILY [facility] Last Admin: 12/13/17 10:18 Dose: 0.6 mg Diltiazem HCl (Cardizem Cd -) 240 mg PO DAILY [facility] Last Admin: 12/13/17 10:18 Dose: 240 mg Dorzolamide HCl (Trusopt 2%) 1 drop OU BID [facility] Last Admin: 12/13/17 10:20 Dose: 1 drop Furosemide (Lasix Injection -) 40 mg IVPUSH DAILY [facility] Last Admin: 12/13/17 10:18 Dose: 40 mg Guaifenesin (Diabetic Tussin Dm -) 5 ml PO Q6H PRN PRN Reason: COUGH Last Admin: 12/12/17 09:54 Dose: 5 ml Insulin Aspart (Novolog Vial Sliding Scale -) 1 vial SQ ACHS [facility] PRN Reason: Protocol Last Admin: 12/13/17 11:41 Dose: 6 units Latanoprost (Xalatan 0.005% Eye Drops -) 1 drop OU HS [facility] Last Admin: 12/12/17 21:15 Dose: 1 drop Metformin HCl (Glucophage -) 1,000 mg PO BIDAC [facility] Last Admin: 12/13/17 06:54 Dose: 1,000 mg Methylprednisolone Sodium Succinate (Solu-Medrol -) 40 mg IVPUSH Q8H-IV [facility] Last Admin: 12/13/17 10:18 Dose: 40 mg Metoclopramide HCl (Reglan -) 5 mg PO Q8H PRN PRN Reason: NAUSEA/GI UPSET Last Admin: 12/12/17 21:15 Dose: 5 mg Oseltamivir Phosphate (Tamiflu -) 75 mg PO BID [facility] Stop: 12/16/17 10:01 Last Admin: 12/13/17 10:19 Dose: 75 mg Sitagliptin Phosphate (Januvia -) 100 mg PO DAILY@0700 [facility] Last Admin: 12/13/17 06:54 Dose: 100 mg Timolol Maleate (Timoptic 0.5%) 1 drop OU BID [facility] Last Admin: 12/13/17 10:20 Dose: 1 drop Warfarin Sodium (Coumadin -) 7.5 mg PO DAILY@1800 [facility] Last Admin: 12/12/17 17:34 Dose: 7.5 mg - Objective Vital Signs: Vital Signs Temperature 97.6 F 12/13/17 06:00 Pulse Rate 59 L 12/13/17 06:00 Respiratory Rate 20 12/13/17 06:00 Blood Pressure 162/82 12/13/17 06:00 O2 Sat by Pulse Oximetry (%) 96 12/12/17 21:00 Constitutional: Yes: Well Nourished, Calm Eyes: Yes: WNL HENT: Yes: WNL Neck: Yes: WNL Cardiovascular: Yes: Regular Rate and Rhythm, S1, S2 Respiratory: Yes: CTA Bilaterally Gastrointestinal: Yes: Normal Bowel Sounds, Soft Extremities: Yes: WNL Edema: No Labs: CBC, BMP 12/13/17 05:35 12/13/17 05:35 INR, PTT INR 1.67 (0.82-1.09) H 12/13/17 05:35 Assessment/Plan Problem List - Problems (1) Influenza B Code(s): J10.1 - FLU DUE TO OTH IDENT INFLUENZA VIRUS W OTH RESP MANIFEST (2) Lactic acid acidosis Code(s): E87.2 - ACIDOSIS (3) Anticardiolipin antibody positive Code(s): R76.8 - OTHER SPECIFIED ABNORMAL IMMUNOLOGICAL FINDINGS IN SERUM (4) Hypertension Code(s): I10 - ESSENTIAL (PRIMARY) HYPERTENSION Qualifiers: Hypertension type: essential hypertension Qualified Code(s): I10 - Essential (primary) hypertension Assessment/Plan Influenza B Lactic Acidosis HTN +anti-cardiolipin Ab - tamiflu - IVF - trend lactate - continue cardiac meds - anticoagulation DR BAE
--- NOTE | 2017-12-13 12:42 | PN ---
Progress Note, Physician History of Present Illness: seen and examined today in nad. still has cough, but feeling better. - Current Medication List Current Medications: Active Medications Acetaminophen (Tylenol -) 650 mg PO Q6H PRN PRN Reason: PAIN Last Admin: 12/12/17 02:06 Dose: 650 mg Albuterol/Ipratropium (Duoneb -) 1 amp NEB Q4H PRN PRN Reason: SHORTNESS OF BREATH Last Admin: 12/13/17 11:10 Dose: 1 amp Alprazolam (Xanax -) 0.5 mg PO Q12H PRN PRN Reason: ANXIETY Last Admin: 12/12/17 23:15 Dose: 0.5 mg Atorvastatin Calcium (Lipitor -) 40 mg PO HS [facility] Last Admin: 12/12/17 21:15 Dose: 40 mg Carvedilol (Coreg -) 25 mg PO BID [facility] Last Admin: 12/13/17 10:18 Dose: 25 mg Clopidogrel Bisulfate (Plavix -) 75 mg PO DAILY [facility] Last Admin: 12/13/17 10:18 Dose: 75 mg Colchicine (Colcrys -) 0.6 mg PO DAILY [facility] Last Admin: 12/13/17 10:18 Dose: 0.6 mg Diltiazem HCl (Cardizem Cd -) 240 mg PO DAILY [facility] Last Admin: 12/13/17 10:18 Dose: 240 mg Dorzolamide HCl (Trusopt 2%) 1 drop OU BID [facility] Last Admin: 12/13/17 10:20 Dose: 1 drop Furosemide (Lasix Injection -) 40 mg IVPUSH DAILY [facility] Last Admin: 12/13/17 10:18 Dose: 40 mg Guaifenesin (Diabetic Tussin Dm -) 5 ml PO Q6H PRN PRN Reason: COUGH Last Admin: 12/12/17 09:54 Dose: 5 ml Insulin Aspart (Novolog Vial Sliding Scale -) 1 vial SQ ACHS [facility] PRN Reason: Protocol Last Admin: 12/13/17 11:41 Dose: 6 units Latanoprost (Xalatan 0.005% Eye Drops -) 1 drop OU HS [facility] Last Admin: 12/12/17 21:15 Dose: 1 drop Metformin HCl (Glucophage -) 1,000 mg PO BIDAC [facility] Last Admin: 12/13/17 06:54 Dose: 1,000 mg Methylprednisolone Sodium Succinate (Solu-Medrol -) 40 mg IVPUSH Q8H-IV [facility] Last Admin: 12/13/17 10:18 Dose: 40 mg Metoclopramide HCl (Reglan -) 5 mg PO Q8H PRN PRN Reason: NAUSEA/GI UPSET Last Admin: 12/12/17 21:15 Dose: 5 mg Oseltamivir Phosphate (Tamiflu -) 75 mg PO BID [facility] Stop: 12/16/17 10:01 Last Admin: 12/13/17 10:19 Dose: 75 mg Sitagliptin Phosphate (Januvia -) 100 mg PO DAILY@0700 [facility] Last Admin: 12/13/17 06:54 Dose: 100 mg Timolol Maleate (Timoptic 0.5%) 1 drop OU BID [facility] Last Admin: 12/13/17 10:20 Dose: 1 drop Warfarin Sodium (Coumadin -) 7.5 mg PO DAILY@1800 [facility] Last Admin: 12/12/17 17:34 Dose: 7.5 mg - Objective Vital Signs: Vital Signs Temperature 97.6 F 12/13/17 06:00 Pulse Rate 59 L 12/13/17 06:00 Respiratory Rate 20 12/13/17 06:00 Blood Pressure 162/82 12/13/17 06:00 O2 Sat by Pulse Oximetry (%) 96 12/12/17 21:00 Constitutional: Yes: No Distress, Calm Eyes: Yes: Conjunctiva Clear, EOM Intact HENT: Yes: Atraumatic, Normocephalic Neck: Yes: Supple, Trachea Midline Cardiovascular: Yes: Regular Rate and Rhythm, S1, S2. No: Bradycardia, Tachycardia, Pulse Irregular, Bruit, JVD, Gallop, Murmur, Rub, S3, S4, Varicosities Respiratory: Yes: Regular, Diminished. No: Rales, Rhonchi, Wheezes Gastrointestinal: Yes: Normal Bowel Sounds, Soft. No: Distention, Tenderness Musculoskeletal: Yes: WNL Extremities: Yes: WNL Edema: No Peripheral Pulses WNL: Yes Integumentary: Yes: WNL Neurological: Yes: Alert, Oriented Psychiatric: Yes: Alert, Oriented Labs: CBC, BMP 12/13/17 05:35 12/13/17 05:35 INR, PTT INR 1.67 (0.82-1.09) H 12/13/17 05:35 - ....Imaging Chest X-ray: Report Reviewed, Image Reviewed EKG: Report Reviewed, Image Reviewed Other: Report Reviewed, Image Reviewed (tele-AV paced, PVCs, 4 beats NSVT) Assessment/Plan IMP: Influenza B + PAF s/p PPM H/o CVA HTN Renal artery stenosis CAD Suspected connective tissue disease, + anticardiolipin AB (SLE negative, markedly positive MEGHANN) REC: Treatment of flu as per PMD. Dose coumadin for INR 2-3 (AF, + anticardiolipin AB, prior CVA). Cont Coreg and cardizem Cont IV lasix today and re-evaluate to transition to po tomorrow Echo done today, briefly reviewed images at bedside, small residual pericardial effusion
--- NOTE | 2017-12-13 13:24 | PN ---
Progress Note, Physician Chief Complaint: ID Oseltamavir steroids - Current Medication List Current Medications: Active Medications Acetaminophen (Tylenol -) 650 mg PO Q6H PRN PRN Reason: PAIN Last Admin: 12/12/17 02:06 Dose: 650 mg Albuterol/Ipratropium (Duoneb -) 1 amp NEB Q4H PRN PRN Reason: SHORTNESS OF BREATH Last Admin: 12/13/17 11:10 Dose: 1 amp Alprazolam (Xanax -) 0.5 mg PO Q12H PRN PRN Reason: ANXIETY Last Admin: 12/12/17 23:15 Dose: 0.5 mg Atorvastatin Calcium (Lipitor -) 40 mg PO HS [facility] Last Admin: 12/12/17 21:15 Dose: 40 mg Carvedilol (Coreg -) 25 mg PO BID [facility] Last Admin: 12/13/17 10:18 Dose: 25 mg Clopidogrel Bisulfate (Plavix -) 75 mg PO DAILY [facility] Last Admin: 12/13/17 10:18 Dose: 75 mg Colchicine (Colcrys -) 0.6 mg PO DAILY [facility] Last Admin: 12/13/17 10:18 Dose: 0.6 mg Diltiazem HCl (Cardizem Cd -) 240 mg PO DAILY [facility] Last Admin: 12/13/17 10:18 Dose: 240 mg Dorzolamide HCl (Trusopt 2%) 1 drop OU BID [facility] Last Admin: 12/13/17 10:20 Dose: 1 drop Furosemide (Lasix Injection -) 40 mg IVPUSH DAILY [facility] Last Admin: 12/13/17 10:18 Dose: 40 mg Guaifenesin (Diabetic Tussin Dm -) 5 ml PO Q6H PRN PRN Reason: COUGH Last Admin: 12/12/17 09:54 Dose: 5 ml Insulin Aspart (Novolog Vial Sliding Scale -) 1 vial SQ ACHS [facility] PRN Reason: Protocol Last Admin: 12/13/17 11:41 Dose: 6 units Latanoprost (Xalatan 0.005% Eye Drops -) 1 drop OU HS [facility] Last Admin: 12/12/17 21:15 Dose: 1 drop Metformin HCl (Glucophage -) 1,000 mg PO BIDAC [facility] Last Admin: 12/13/17 06:54 Dose: 1,000 mg Methylprednisolone Sodium Succinate (Solu-Medrol -) 40 mg IVPUSH Q8H-IV [facility] Last Admin: 12/13/17 10:18 Dose: 40 mg Metoclopramide HCl (Reglan -) 5 mg PO Q8H PRN PRN Reason: NAUSEA/GI UPSET Last Admin: 12/12/17 21:15 Dose: 5 mg Oseltamivir Phosphate (Tamiflu -) 75 mg PO BID [facility] Stop: 12/16/17 10:01 Last Admin: 12/13/17 10:19 Dose: 75 mg Sitagliptin Phosphate (Januvia -) 100 mg PO DAILY@0700 [facility] Last Admin: 12/13/17 06:54 Dose: 100 mg Timolol Maleate (Timoptic 0.5%) 1 drop OU BID [facility] Last Admin: 12/13/17 10:20 Dose: 1 drop Warfarin Sodium (Coumadin -) 7.5 mg PO DAILY@1800 [facility] Last Admin: 12/12/17 17:34 Dose: 7.5 mg - Objective Vital Signs: Vital Signs Temperature 97.6 F 12/13/17 06:00 Pulse Rate 59 L 12/13/17 06:00 Respiratory Rate 20 12/13/17 06:00 Blood Pressure 162/82 12/13/17 06:00 O2 Sat by Pulse Oximetry (%) 96 12/12/17 21:00 Constitutional: Yes: Well Nourished, No Distress Cardiovascular: Yes: Pulse Irregular, S1, S2 Respiratory: Yes: WNL, Regular, CTA Bilaterally Gastrointestinal: Yes: WNL, Normal Bowel Sounds, Soft. No: Tenderness, Epigastrium Edema: No Labs: CBC, BMP 12/13/17 05:35 12/13/17 05:35 INR, PTT INR 1.67 (0.82-1.09) H 12/13/17 05:35 Problem List - Problems (1) Anticardiolipin antibody positive Code(s): R76.8 - OTHER SPECIFIED ABNORMAL IMMUNOLOGICAL FINDINGS IN SERUM (2) Influenza B Code(s): J10.1 - FLU DUE TO OT IDENT INFLUENZA VIRUS W OT RESP MANIFEST Assessment/Plan Microbiology 12/11/17 14:50 Blood - Peripheral Venous Blood Culture - Preliminary NO GROWTH OBTAINED AFTER 24 HOURS, INCUBATION TO CONTINUE FOR 4 DAYS. 12/11/17 14:50 Blood - Peripheral Venous Blood Culture - Preliminary NO GROWTH OBTAINED AFTER 24 HOURS, INCUBATION TO CONTINUE FOR 4 DAYS. Laboratory Tests 12/13/17 12/13/17 05:35 05:35 WBC 10.5 H Hgb 11.2 Plt Count 183 BUN 38 H Assessment Influenza B stable Plan As discussed with Dr Garland Discharge planning with anticoagulation Finish Tamiflu 5 days
[2017-12-13] MEDS: WARFARIN NA 7.5 MG TABLET (FP) PO SCH (17:30)
[2017-12-13] MEDS ORDERED: INSULIN (NOVOLOG) ASPART 100 UNITS/ML 10ML VIAL ONE (18:12)
[2017-12-13 20:02] VITALS: BP 150/64; PULSE 64; TEMP 97.9
--- NOTE | 2017-12-13 23:25 | DS ---
Physical Examination Vital Signs: Vital Signs Temperature 97.9 F 12/13/17 19:45 Pulse Rate 64 12/13/17 19:45 Respiratory Rate 18 12/13/17 19:45 Blood Pressure 150/64 12/13/17 19:45 O2 Sat by Pulse Oximetry (%) 96 12/13/17 10:00 Labs: CBC, BMP 12/13/17 05:35 12/13/17 05:35 Discharge Summary Reason For Visit: INFLUENZA TYPEB= B, DEHYDRATION, LACTIC ACIDOSIS Condition: Good - Instructions Diet, Activity, Other Instructions: 2 gram sodium and 2200 ca;lee diabetic diet See Dr Johnson on Wednesday to check bloods for coumadin Referrals: Sony Johnson MD [Primary Care Provider] - Disposition: HOME - Home Medications Comprehensive Discharge Medication List: Ambulatory Orders Acetaminophen [Pain Relief] 650 mg PO PRN PRN 10/09/17 Atorvastatin Ca [Lipitor] 40 mg PO HS 10/09/17 Clopidogrel Bisulfate [Plavix -] 75 mg PO DAILY 10/09/17 Colchicine 0.6 mg PO BID 10/09/17 Diltiazem HCl [Diltiazem 24Hr Cd] 240 mg PO DAILY 10/09/17 Latanoprost 0.005% Eye Drops [Xalatan 0.005% Eye Drops -] 1 drop OU HS 10/09/17 Metoclopramide HCl [Reglan] 5 mg PO DAILY PRN 10/09/17 Furosemide [Lasix -] 40 mg PO DAILY 12/11/17 Insulin Aspart [Novolog Flexpen] 0 unit SQ PRN 12/11/17 Insulin Glargine,Hum.rec.anlog [Lantus] 20 unit SQ AM 12/11/17 Linagliptin/Metformin HCl [Jentadueto 2.5 mg-500 mg Tab] 1 each PO BIDAC Prednisone [Deltasone -] 20 mg PO BID 12/11/17 Alprazolam [Xanax] 0.5 mg PO BID PRN 12/12/17 Dorzolamide HCl [Trusopt 2% -] 1 drop OU BID 12/12/17 Timolol 0.5% [Timoptic 0.5%] 1 drop OU BID 12/12/17 Ubidecarenone [Coq-10] 200 mg PO DAILY 12/12/17 Alprazolam [Xanax] 0.5 mg PO Q12H PRN #1 tablet MDD 2 12/13/17 Atorvastatin Ca [Lipitor] 40 mg PO HS tablet 12/13/17 Carvedilol [Coreg -] 25 mg PO BID tablet 12/13/17 Clopidogrel Bisulfate [Plavix -] 75 mg PO DAILY tablet 12/13/17 Colchicine [Colcrys -] 0.6 mg PO DAILY tablet 12/13/17 Diltiazem Cd [Cardizem Cd -] 240 mg PO DAILY cap.cd.24h 12/13/17 Dorzolamide HCl [Trusopt 2% -] 1 drop OU BID drops 12/13/17 Latanoprost 0.005% Eye Drops [Xalatan 0.005% Eye Drops -] 1 drop OU HS drops Metoclopramide HCl [Reglan -] 5 mg PO Q8H PRN tablet 12/13/17 Oseltamivir Phosphate [Tamiflu -] 75 mg PO BID #6 capsule 12/13/17 Timolol 0.5% [Timoptic 0.5%] 1 drop OU BID drops 12/13/17 Warfarin Na [Coumadin -] 7.5 mg PO DAILY@1800 tablet 12/13/17
== END 2017-12-13 20:18 | disposition home or self-care (01) | DRG 194 ==
LOC: JER 13:41 → JERBED 16:03 → J4S 12-12 01:08
PROVIDERS: ADMIT Internal Medicine; ATTEND Internal Medicine
DX: J10.1 Influenza due to other identified influenza virus with other respiratory manifestations (principal); I69.351 Hemiplegia and hemiparesis following cerebral infarction affecting right dominant side; E87.2 Acidosis; I31.9 Disease of pericardium, unspecified; I11.0 Hypertensive heart disease with heart failure; R07.89 Other chest pain; E11.9 Type 2 diabetes mellitus without complications; E78.00 Pure hypercholesterolemia, unspecified; I71.4 Abdominal aortic aneurysm, without rupture; E86.0 Dehydration; I70.1 Atherosclerosis of renal artery; R09.1 Pleurisy; I48.0 Paroxysmal atrial fibrillation; R76.8 Other specified abnormal immunological findings in serum; R79.89 Other specified abnormal findings of blood chemistry; Z88.0 Allergy status to penicillin; Z95.0 Presence of cardiac pacemaker; Z95.5 Presence of coronary angioplasty implant and graft; Z87.891 Personal history of nicotine dependence
CPT/HCPCS: 36415; 71045-TC; 80053; 82550; 82962; 83605; 83690; 83735; 83880; 84484; 85025; 85610; 85730; 87040; 87804; 93005; 93010; 93306-TC; 94640; 99285-25

== ENCOUNTER 2017-12-21 10:11 | Inpatient (IN) | payer OTHER ==
--- NOTE | 2017-12-21 10:42 | PDOC ---
Attending Attestation - Resident Resident Name: Ivan Bhandari - ED Attending Attestation I have performed the following: I have examined & evaluated the patient, The case was reviewed & discussed with the resident, I agree w/resident's findings & plan, Exceptions are as noted - HPI HPI: 12/21/17 13:42 72-year-old female with a history of HTN, HLD, afib, CHF, CVA with residual right sided weakness, s/p pacemaker placement, possible hypercoagulopathy here today complaining of left leg swelling and pain starting yesterday at 5:30 pm. Denies any trauma to leg. Patient is mostly bed bound. 12/21/17 13:45 - Physicial Exam PE: 12/21/17 10:42 GENERAL: The patient is in no acute distress. HEAD: Normal with no signs of trauma. EYES: PERRLA, EOMI, sclera anicteric, conjunctiva clear. ENT: Ears normal, nares patent, oropharynx clear without exudates. Moist mucous membranes. NECK: Normal range of motion, supple without lymphadenopathy, JVD, or masses. LUNGS: Breath sounds equal, clear to auscultation bilaterally. No wheezes, and no crackles. HEART:Regular rate and rhythm, normal S1 and S2 without murmur, rub or gallop. ABDOMEN: Soft, nontender, normoactive bowel sounds. No guarding, no rebound. No masses palpable. EXTREMITIES: Left lower extremity very swollen, very edematous, tense, tender to palpation NEUROLOGICAL: Cranial nerves II through XII grossly intact. Normal speech. No focal neurological deficits. MUSCULOSKELETAL: Back non-tender to palpation, no CVA tenderness SKIN: Warm, Dry, normal turgor, no rashes or lesions noted. 12/21/17 13:42 - Medical Decision Making 12/21/17 13:43 72-year-old female presented to the emergency department with severe left lower extremity pain which began yesterday at approximately 5:30 Laboratory Tests 12/21/17 12/21/17 12/21/17 11:20 11:20 11:20 WBC 11.0 H Hgb 10.8 Hct 33.6 Plt Count 144 D INR 5.42 H* D BUN 25 H Creatinine 1.0 Troponin I 0.07 H Ultrasound demonstrates left popliteal dvt Pt INR is 5 Will plan to : Admit for ? filter ? Surgical consult Clinical Impression: 12/21/17 13:[address] Goddard. Will admit to her service. 12/21/17 14:00 EKG: Atrial paced, rate of 60 bpm, I've had a long discussion with this patient's daughter. She states her mother has accompanied located history which includes abdominal aortic aneurysm. She requests a consult be placed for Dr. Storey Discharge Disposition - Diagnosis DVT (deep venous thrombosis) Qualifiers: DVT location: lower extremity Affected thrombotic vein of extremity: popliteal Chronicity: acute Laterality: left Qualified Code(s): I82.432 - Acute embolism and thrombosis of left popliteal vein - Discharge Dispostion Condition at time of disposition: Stable Last Admission D/C Date: 12/13/17 Admit: Yes - Referrals Referrals: Sony Johnson MD [Primary Care Provider] - - Patient Instructions - Post Discharge Activity
--- NOTE | 2017-12-21 10:57 | PDOC ---
History of Present Illness - General Chief Complaint: Edema Stated Complaint: LEG PAIN Time Seen by Provider: 12/21/17 10:14 History Source: Patient Exam Limitations: No Limitations - History of Present Illness Initial Comments: 12/21/17 10:47 Patient is a 72F with history of HTN, HLD, afib, CHF, CVA with residual right sided weakness, s/p pacemaker placement, possibly hypercoagulopathy here today complaining of left leg swelling and pain starting yesterday. Patient denies fevers, chills, shortness of breath, chest pain. On 10/24, was admitted for pericarditis and pleural effusion, had pericardiocentesis, thoracocentesis and cath done. Was influenza B+on 12/12. Family states that she has a history of AAA, but does not require surgery at this point. Denies any trauma to leg. Patient is mostly bed bound. Past History - Past Medical History Allergies/Adverse Reactions: Allergies Allergy/AdvReac Type Severity Reaction Status Date / Time aspirin Allergy Severe Verified 12/21/17 10:14 Penicillins Allergy Severe Verified 12/21/17 10:14 diclofenac Allergy Verified 12/21/17 10:14 shellfish derived Allergy Verified 12/21/17 10:14 lactose AdvReac Verified 12/21/17 10:14 iv contrast Allergy Uncoded 12/21/17 10:14 Home Medications: Ambulatory Orders Atorvastatin Ca [Lipitor] 40 mg PO HS 10/09/17 Clopidogrel Bisulfate [Plavix -] 75 mg PO DAILY 10/09/17 Colchicine 0.6 mg PO BID 10/09/17 Diltiazem HCl [Diltiazem 24Hr Cd] 240 mg PO DAILY 10/09/17 Metoclopramide HCl [Reglan] 5 mg PO DAILY PRN 10/09/17 Furosemide [Lasix -] 40 mg PO DAILY 12/11/17 Insulin Aspart [Novolog Flexpen] 0 unit SQ PRN 12/11/17 Insulin Glargine,Hum.rec.anlog [Lantus] 20 unit SQ AM 12/11/17 Linagliptin/Metformin HCl [Jentadueto 2.5 mg-500 mg Tab] 1 each PO BIDAC predniSONE [Deltasone -] 20 mg PO BID 12/11/17 Alprazolam [Xanax] 0.5 mg PO BID PRN 12/12/17 Ubidecarenone [Coq-10] 200 mg PO DAILY 12/12/17 Carvedilol [Coreg -] 25 mg PO BID tablet 12/13/17 Dorzolamide HCl [Trusopt 2% -] 1 drop OU BID drops 12/13/17 Latanoprost 0.005% Eye Drops [Xalatan 0.005% Eye Drops -] 1 drop OU HS drops Timolol 0.5% [Timoptic 0.5%] 1 drop OU BID drops 12/13/17 Warfarin Na [Coumadin -] 1 mg PO Q2D 12/21/17 Warfarin Sodium [Coumadin] 2 mg PO Q2D 12/21/17 Anemia: No Asthma: No Cardiac Disorders: Yes (PACEMAKER, AAA 5CM, AFIB, PERICARDITIS, PERICARDIAL EFFUSION) CVA: Yes (RIGHT ARM AND LEG WEAKNESS RESIDUAL) COPD: No CHF: Yes DVT: No Diabetes: Yes (IDDM) 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) GI Disorders: Yes (constipation, GERD) HTN: Yes Hypercholesterolemia: Yes Thyroid Disease: No - Surgical History Cardiac Surgery: Yes (PACEMAKER (2010) ; cath 09/24) - Immunization History Immunization Up to Date: Yes - Suicide/Smoking/Psychosocial Hx Smoking History: Never smoked Have you smoked in the past 12 months: No Number of Cigarettes Smoked Daily: 5 If you are a former smoker, when did you quit?: 1993 Information on smoking cessation initiated: No Hx Alcohol Use: No Drug/Substance Use Hx: No Substance Use Type: None Hx Substance Use Treatment: No Review of Systems - Review of Systems Comments:: 12/21/17 10:57 GENERAL/CONSTITUTIONAL: No fever or chills. No weakness. HEAD, EYES, EARS, NOSE AND THROAT: No change in vision. No sore throat. CARDIOVASCULAR: No chest pain or shortness of breath RESPIRATORY: No cough, wheezing, or hemoptysis. GASTROINTESTINAL: No nausea, vomiting, diarrhea or constipation. GENITOURINARY: No dysuria, frequency, or change in urination. MUSCULOSKELETAL: Positive for leg pain. No neck or back pain. SKIN: No rash NEUROLOGIC: No headache, vertigo, loss of consciousness, or change in strength/ sensation. ENDOCRINE: No increased thirst. No abnormal weight change HEMATOLOGIC/LYMPHATIC: No anemia, easy bleeding, or history of blood clots. ALLERGIC/IMMUNOLOGIC: No hives or skin allergy. *Physical Exam - Vital Signs Last Vital Signs Temp Pulse Resp BP Pulse Ox 97.9 F 73 18 171/73 100 12/21/17 10:15 12/21/17 10:15 12/21/17 10:15 12/21/17 10:15 12/21/17 10:15 - Physical Exam Comments: 12/21/17 10:59 GENERAL: Awake, alert, and fully oriented, in no acute distress HEAD: No signs of trauma, normocephalic, atraumatic EYES: PERRLA, EOMI, sclera anicteric, conjunctiva clear ENT: Auricles normal inspection, hearing grossly normal, nares patent, oropharynx clear without exudates. Moist mucosa LUNGS: No distress, speaks full sentences, clear to auscultation bilaterally HEART: Regular rate and rhythm, normal S1 and S2, no murmurs, rubs or gallops, peripheral pulses normal and equal bilaterally. LEFT LEG: Tender to palpation along calf. Pain with passive flexion of ankle. Non-pitting edema in knee. 2+ dorsalis pedis pulse, sensory intact, motor intact RIGHT LEG: No edema, non-tender, no erythema. SKIN: Warm, Dry, normal turgor, no rashes or lesions noted. 12/21/17 12:09 Neuro: Right sided motor deficit in face, arm and leg. Miotic pupil, unresponsive on right. Reactive and normal pupil on left. 5/5 strength in left arm and leg. ED Treatment Course - LABORATORY CBC & Chemistry Diagram: 12/21/17 11:20 12/21/17 11:20 - RADIOLOGY Radiology Studies Ordered: Category Date Time Status CHEST X-RAY PORTABLE* [RAD] Stat Radiology 12/21/17 10:45 Ordered DUPLEX VASCUL US-1 LEG [US] Stat Ultrasound 12/21/17 10:33 Ordered Medical Decision Making - Medical Decision Making 12/21/17 11:02 Patient is a 72F with history of HTN, HLD, afib, CHF, CVA with residual right sided weakness, s/p pacemaker placement, possibly hypercoagulopathy here today complaining of left leg swelling and pain. Vital signs stable and normal. Differential diagnosis heavily weighted towards DVT, immediately sent to US after initial evaluation. Will evaluate further with cxr, cbc, cmp, trop, pt/inr , ekg. 12/21/17 17:18 Laboratory Tests 12/21/17 12/21/17 12/21/17 11:20 11:20 11:20 WBC 11.0 H Hgb 10.8 Hct 33.6 Plt Count 144 D INR 5.42 H* D Troponin I 0.07 H CBC shows small leukocytosis. INR elevated supratherapeutically. Trop positive to .07. EKG shows atrial paced rhythm with inverted t waves in i, II, III, and aVF. Sgarbossa negative. Normal axis. Normal rate. US shows DVT. Will hold treatment for now given patient's anticoagulation status. Admitted to medicine. *DC/Admit/Observation/Transfer Diagnosis at time of Disposition: DVT (deep venous thrombosis) Qualifiers: DVT location: lower extremity Affected thrombotic vein of extremity: popliteal Chronicity: acute Laterality: left Qualified Code(s): I82.432 - Acute embolism and thrombosis of left popliteal vein - Discharge Dispostion Condition at time of disposition: Stable Admit: Yes - Referrals - Patient Instructions - Post Discharge Activity
[2017-12-21 11:23] LABS: BASO % 0.4 % (0-2.0); EOS % 0.1 % (0-4.5); HEMATOCRIT 33.6 % (32.4-45.2); HEMOGLOBIN 10.8 GM/dL (10.7-15.3); MCHC 32.1 g/dl (32.0-36.0); MEAN CELL VOLUME 87.2 fl (80-96); MEAN PLT VOLUME 9.1 fl (7.5-11.1); MONO % 5.3 % (3.8-10.2); NEUT % 85.2 % (42.8-82.8); PLATELET COUNT 144 K/MM3 (134-434); RBC 3.85 M/mm3 (3.60-5.2); RDW 16.5 % (11.6-15.6)
[2017-12-21 11:40] LABS: PROTHROMBIN TIME (PATIENT) 61.3 SEC (9.98-11.88)
[2017-12-21] MEDS ORDERED: morphine CARPU-JECT 2 MG/1 ML DISP.SYRIN IVPUSH ONE ×2 (11:45→18:43)
[2017-12-21] MEDS ORDERED: MORPHINE SULFATE 10 MG/1 ML *VIAL ONE ×2 (11:46→18:44)
[2017-12-21 11:51] LABS: INR 5.42 (0.82-1.09)
[2017-12-21 11:57] LABS: ALBUMIN 2.8 g/dl (3.4-5.0); ANION GAP 9 (8-16); BILIRUBIN,TOTAL 0.4 mg/dL (0.2-1.0); BLOOD UREA NITROGEN 25 mg/dL (7-18); CALCIUM 7.9 mg/dL (8.5-10.1); CHLORIDE 101 mmol/L (98-107); CO2 28 mmol/L (21-32); GLUCOSE,RANDOM 176 mg/dL (74-106); SGOT/AST 21 U/L (15-37); SGPT/ALT 61 U/L (12-78); SODIUM 138 mmol/L (136-145); TOT PROT 5.3 g/dl (6.4-8.2)
[2017-12-21 11:59] LABS: ALK PHOS 83 U/L (45-117)
--- NOTE | 2017-12-21 15:20 | PN ---
Progress Note, Physician History of Present Illness: 72 year old woman with h/o PAF on coumadin s/p PPM H/o CVA HTN Renal artery stenosis CAD Suspected connective tissue disease, + anticardiolipin AB (SLE negative, markedly positive MEGHANN), pericardial effusion, recently admitted for Influenza B + came to ER with LLE pain and swelling suspicious for DVT, DVT confirmed LLE popliteal vein. INR was 6.4 in the office yesterday but was Subtherapeutic the week prior thus plan was in place for adjustment but pt noted the pain and swelling in the LLE starting yesterday evening thus came to the ER for evaluation. Pt was seen and examined in the ER in [place]. Daughter notes pt now his mild sob but did not on presentation. No chest pain. c/o LLE mild pain and swelling, tenderness to palpation. - Objective Vital Signs: Vital Signs Temperature 97.9 F 12/21/17 10:15 Pulse Rate 60 12/21/17 13:00 Respiratory Rate 18 12/21/17 13:00 Blood Pressure 141/44 12/21/17 13:00 O2 Sat by Pulse Oximetry (%) 100 12/21/17 14:48 Constitutional: Yes: No Distress, Calm Eyes: Yes: Conjunctiva Clear, EOM Intact, PERRL HENT: Yes: Atraumatic, Normocephalic Neck: Yes: Supple, Trachea Midline Cardiovascular: Yes: Pulse Irregular, S1, S2. No: Regular Rate and Rhythm, Bradycardia, Tachycardia, Bruit, JVD, Gallop, Murmur, Rub, S3, S4, Varicosities Respiratory: Yes: Regular, Diminished, Rales, Rhonchi, SOB (very mildly sob). No: Wheezes Gastrointestinal: Yes: Normal Bowel Sounds, Soft. No: Distention, Tenderness Extremities: Yes: Other (LLE swollen, tender) Edema: LLE: 1+ Peripheral Pulses WNL: Yes Neurological: Yes: Alert, Oriented Psychiatric: Yes: Alert, Oriented Labs: CBC, BMP 12/21/17 11:20 12/21/17 11:20 INR, PTT INR 5.42 (0.82-1.09) H* D 12/21/17 11:20 - ....Imaging Chest X-ray: Report Reviewed, Image Reviewed EKG: Report Reviewed, Image Reviewed Other: Report Reviewed, Image Reviewed Assessment/Plan IMP Acute LLE DVT PAF s/p PPM H/o CVA HTN Renal artery stenosis CAD Suspected connective tissue disease, + anticardiolipin AB (SLE negative, markedly positive MEGHANN) Plan Unclear if coumadin failure as INR was subtherapeutic 1 week ago INR currently supratherapeutic Holding additional AC at this time due to INR [facility] hematology consult Mild sob-mild rales on exam, also recent Influenza and pneumonia Cxray was reported as clear lungs resume home meds including Lasix, can give 1 dose IV Lasix now and re-evaluate [facility] pulm evaluation given recent influenza and pneumonia
--- NOTE | 2017-12-21 16:35 | EKG ---
Test Reason : Blood Pressure : / mmHG Vent. Rate : 060 BPM Atrial Rate : 060 BPM P-R Int : 180 ms QRS Dur : 122 ms QT Int : 450 ms P-R-T Axes : 033 028 190 degrees QTc Int : 450 ms Atrial-paced rhythm LEFT BUNDLE BRANCH BLOCK ABNORMAL ECG Confirmed by MD Chiquis, Clint ([id number]) on 12/21/2017 4:34:58 PM Referred By: Confirmed By:Clint Sim MD
[2017-12-21] MEDS ORDERED: FUROSEMIDE 40 MG/4 ML INJECTABLE VIAL IVPUSH ONE (17:00)
[2017-12-21] MEDS ORDERED: FUROSEMIDE 40 MG/4 ML INJECTABLE VIAL ONE (17:08)
--- NOTE | 2017-12-21 19:21 | HP ---
Admitting History and Physical - Admission History of Present Illness: 72 year old woman with h/o PAF on coumadin s/p PPM H/o CVA HTN Renal artery stenosis CAD Suspected connective tissue disease, + anticardiolipin AB (SLE negative, markedly positive MEGHANN), pericardial effusion, recently admitted for Influenza B + came to ER with LLE pain and swelling suspicious for DVT, DVT confirmed LLE popliteal vein. INR was 6.4 in the office yesterday but was Subtherapeutic the week prior thus plan was in place for adjustment but pt noted the pain and swelling in the LLE starting yesterday evening thus came to the ER for evaluation. 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 Cardiovascular: Yes: AFIB, HTN, Hyperlipdemia, Other (pericarditis Pericardial effusion) Renal/: Yes: Other (Renal artery stenosis) Endocrine: Yes: Diabetes Mellitus - Past Surgical History Past Surgical History: Yes: Permanent Pacemaker - Smoking History Smoking history: Never smoked Have you smoked in the past 12 months: No Aproximately how many cigarettes per day: 5 If you are a former smoker, when did you quit?: 1993 - Alcohol/Substance Use Hx Alcohol Use: No Home Medications - Allergies Allergies/Adverse Reactions: Allergies Allergy/AdvReac Type Severity Reaction Status Date / Time aspirin Allergy Severe Verified 12/21/17 10:14 Penicillins Allergy Severe Verified 12/21/17 10:14 diclofenac Allergy Verified 12/21/17 10:14 shellfish derived Allergy Verified 12/21/17 10:14 lactose AdvReac Verified 12/21/17 10:14 iv contrast Allergy Uncoded 12/21/17 10:14 - Home Medications Home Medications: Ambulatory Orders Atorvastatin Ca [Lipitor] 40 mg PO HS 10/09/17 Clopidogrel Bisulfate [Plavix -] 75 mg PO DAILY 10/09/17 Colchicine 0.6 mg PO BID 10/09/17 Diltiazem HCl [Diltiazem 24Hr Cd] 240 mg PO DAILY 10/09/17 Metoclopramide HCl [Reglan] 5 mg PO DAILY PRN 10/09/17 Furosemide [Lasix -] 40 mg PO DAILY 12/11/17 Insulin Aspart [Novolog Flexpen] 0 unit SQ PRN 12/11/17 Insulin Glargine,Hum.rec.anlog [Lantus] 20 unit SQ AM 12/11/17 Linagliptin/Metformin HCl [Jentadueto 2.5 mg-500 mg Tab] 1 each PO BIDAC predniSONE [Deltasone -] 20 mg PO BID 12/11/17 Alprazolam [Xanax] 0.5 mg PO BID PRN 12/12/17 Ubidecarenone [Coq-10] 200 mg PO DAILY 12/12/17 Carvedilol [Coreg -] 25 mg PO BID tablet 12/13/17 Dorzolamide HCl [Trusopt 2% -] 1 drop OU BID drops 12/13/17 Latanoprost 0.005% Eye Drops [Xalatan 0.005% Eye Drops -] 1 drop OU HS drops Timolol 0.5% [Timoptic 0.5%] 1 drop OU BID drops 12/13/17 Warfarin Na [Coumadin -] 1 mg PO Q2D 12/21/17 Warfarin Sodium [Coumadin] 2 mg PO Q2D 12/21/17 Family Disease History - Family Disease History Family History: Unremarkable Review of Systems - Review of Systems Constitutional: reports: Malaise, Weakness HENT: reports: No Symptoms Neck: reports: No Symptoms Cardiovascular: reports: No Symptoms Respiratory: reports: No Symptoms Gastrointestinal: reports: No Symptoms Physical Examination Vital Signs: Vital Signs Temperature 97.9 F 12/21/17 10:15 Pulse Rate 60 12/21/17 17:11 Respiratory Rate 18 12/21/17 17:11 Blood Pressure 123/58 12/21/17 17:11 O2 Sat by Pulse Oximetry (%) 99 12/21/17 17:11 Eyes: Yes: WNL HENT: Yes: WNL Neck: Yes: WNL, Supple Cardiovascular: Yes: WNL, Regular Rate and Rhythm Respiratory: Yes: WNL, Regular, CTA Bilaterally Gastrointestinal: Yes: WNL, Normal Bowel Sounds, Soft Extremities: Yes: Other (LLE erythema/swelling) Edema: LLE: Trace Labs: CBC, BMP 12/21/17 11:20 12/21/17 11:20 Problem List - Problems (1) DVT (deep venous thrombosis) Assessment/Plan: Pt w/ DVT while on coumadin Heme consult PT/INR supratherapeutic Hold coumadin and monitor daioly pt/inr Code(s): I82.409 - ACUTE EMBOLISM AND THOMBOS UNSP DEEP VN UNSP LOWER EXTREMITY Qualifiers: DVT location: lower extremity Affected thrombotic vein of extremity: popliteal Chronicity: acute Laterality: left Qualified Code(s): I82.432 - Acute embolism and thrombosis of left popliteal vein (2) Diabetes Assessment/Plan: Cont sliding scale w/ coverage Code(s): E11.9 - TYPE 2 DIABETES MELLITUS WITHOUT COMPLICATIONS Qualifiers: Diabetes mellitus type: type 2 (3) HLD (hyperlipidemia) Code(s): E78.5 - HYPERLIPIDEMIA, UNSPECIFIED (4) Hypertension Code(s): I10 - ESSENTIAL (PRIMARY) HYPERTENSION Qualifiers: Hypertension type: essential hypertension Qualified Code(s): I10 - Essential (primary) hypertension
[2017-12-21] MEDS: CARVEDILOL 25 MG TABLET (FP) PO SCH (21:31)
[2017-12-21] MEDS: ATORVASTATIN CA 40 MG TABLET (FP) PO SCH (21:31)
[2017-12-21] MEDS: ALPRAZolam 0.25 MG TABLET PO PRN (21:31)
[2017-12-21] MEDS: LATANOPROST 0.005% OPHTH SOLN 2.5ML BOTTLE OU SCH (21:33)
[2017-12-21] MEDS: DORZOLAMIDE 2% HCL OPHTHALMIC SOLUTION 10 ML BOTTLE OU SCH (21:33)
[2017-12-21] MEDS: TIMOLOL 0.5% OPHTHALMIC SOL 5 ML BOTTLE OU SCH (21:34)
[2017-12-21] MEDS: INSULIN SLIDING SCALE (NOVOLOG) 1 VIAL SQ SCH (21:39)
[2017-12-21] MEDS ORDERED: predniSONE 20 MG TABLET (UD) PO SCH (22:00)
[2017-12-22 03:18] VITALS: BMI 31.7
[2017-12-22] MEDS: INSULIN SLIDING SCALE (NOVOLOG) 1 VIAL SQ SCH ×4 (06:45→21:14)
[2017-12-22] MEDS: metFORMIN HCL 500 MG TABLET (FP) PO SCH ×2 (06:46→16:59)
[2017-12-22] MEDS: sitaGLIPtin PHOSPHATE 50 MG TABLET PO SCH ×2 (06:46→16:59)
[2017-12-22] MEDS: INSULIN DETEMIR 100 UNITS/ML MDV SQ SCH (06:46)
[2017-12-22] MEDS ORDERED: PATIENT'S OWN MEDICATION (NON-FORMULARY) (Linagliptin/Metformin Hcl [Jentadueto 2.5 Mg-500 PO SCH (07:00)
[2017-12-22 07:48] LABS: BASO % 0.2 % (0-2.0); HEMATOCRIT 31.5 % (32.4-45.2); HEMOGLOBIN 10.1 GM/dL (10.7-15.3); LYMPH % 7.7 % (8-40); MCH 28.4 pg (25.7-33.7); MCHC 32.1 g/dl (32.0-36.0); MEAN CELL VOLUME 88.2 fl (80-96); MEAN PLT VOLUME 9.5 fl (7.5-11.1); MONO % 4.2 % (3.8-10.2); NEUT % 87.9 % (42.8-82.8); PLATELET COUNT 137 K/MM3 (134-434); RBC 3.57 M/mm3 (3.60-5.2); RDW 16.6 % (11.6-15.6); WHITE BLOOD COUNT 8.7 K/mm3 (4.0-10.0)
[2017-12-22 07:52] LABS: PROTHROMBIN TIME (PATIENT) 45.4 SEC (9.98-11.88)
[2017-12-22 08:07] LABS: CHLORIDE 101 mmol/L (98-107); POTASSIUM 4.2 mmol/L (3.5-5.1); SODIUM 141 mmol/L (136-145)
[2017-12-22 08:09] LABS: INR 4.02 (0.82-1.09)
[2017-12-22 08:13] LABS: ALBUMIN 2.7 g/dl (3.4-5.0); ALK PHOS 76 U/L (45-117); ANION GAP 7 (8-16); BILIRUBIN,TOTAL 0.6 mg/dL (0.2-1.0); BLOOD UREA NITROGEN 30 mg/dL (7-18); CALCIUM 8.1 mg/dL (8.5-10.1); CO2 33 mmol/L (21-32); CREATININE 1.1 mg/dL (0.55-1.02); GLUCOSE,RANDOM 138 mg/dL (74-106); SGOT/AST 21 U/L (15-37); SGPT/ALT 52 U/L (12-78); TOT PROT 5.1 g/dl (6.4-8.2)
--- NOTE | 2017-12-22 08:57 | PN ---
Progress Note, Physician Chief Complaint: Worsened edema LLE History of Present Illness: alert and oriented - Current Medication List Current Medications: Active Medications Alprazolam (Xanax -) 0.5 mg PO BID PRN PRN Reason: ANXIETY Last Admin: 12/21/17 21:31 Dose: 0.5 mg Atorvastatin Calcium (Lipitor -) 40 mg PO HS [facility] Last Admin: 12/21/17 21:31 Dose: 40 mg Carvedilol (Coreg -) 25 mg PO BID [facility] Last Admin: 12/21/17 21:31 Dose: 25 mg Clopidogrel Bisulfate (Plavix -) 75 mg PO DAILY [facility] Diltiazem HCl (Cardizem Cd -) 240 mg PO DAILY [facility] Dorzolamide HCl (Trusopt 2%) 1 drop OU BID [facility] Last Admin: 12/21/17 21:33 Dose: 1 drop Furosemide (Lasix -) 40 mg PO DAILY [facility] Insulin Aspart (Novolog Vial Sliding Scale -) 1 vial SQ ACHS [facility] PRN Reason: Protocol Last Admin: 12/22/17 06:45 Dose: 2 units Insulin Detemir (Levemir Vial) 20 units SQ AM [facility] Last Admin: 12/22/17 06:46 Dose: 20 units Latanoprost (Xalatan 0.005% Eye Drops -) 1 drop OU HS [facility] Last Admin: 12/21/17 21:33 Dose: 1 drop Metformin HCl (Glucophage -) 500 mg PO BID@0700,1630 [facility] Last Admin: 12/22/17 06:46 Dose: 500 mg Prednisone (Deltasone -) 20 mg PO DAILY [facility] Sitagliptin Phosphate (Januvia -) 50 mg PO BID@0700,1630 [facility] Last Admin: 12/22/17 06:46 Dose: 50 mg Timolol Maleate (Timoptic 0.5%) 1 drop OU BID [facility] Last Admin: 12/21/17 21:34 Dose: 1 drop - Objective Vital Signs: Vital Signs Temperature 98.1 F 12/22/17 06:00 Pulse Rate 60 12/22/17 06:00 Respiratory Rate 18 12/22/17 06:00 Blood Pressure 131/66 12/22/17 06:00 O2 Sat by Pulse Oximetry (%) 99 12/22/17 02:11 Constitutional: Yes: Calm Cardiovascular: Yes: Regular Rate and Rhythm (paced) Respiratory: Yes: CTA Bilaterally Gastrointestinal: Yes: Soft (nontender) Edema: Yes Edema: LLE: 2+, RLE: 1+ Neurological: Yes: Alert, Oriented ...Motor Strength: WNL Labs: CBC, BMP 12/22/17 06:52 12/22/17 06:52 INR, PTT INR 4.02 (0.82-1.09) H* 12/22/17 06:52 Laboratory Tests 12/22/17 12/22/17 12/22/17 06:52 06:52 06:52 WBC 8.7 Hgb 10.1 L Plt Count 137 INR 4.02 H* Sodium 141 Potassium 4.2 Creatinine 1.1 H MEGHANN Screen 12/22/17 06:52 WBC Hgb Plt Count INR Sodium Potassium Creatinine MEGHANN Screen Pending Assessment/Plan IMP: Acute LLE DVT PAF s/p PPM H/o CVA HTN Renal artery stenosis CAD Suspected connective tissue disease, + anticardiolipin AB (SLE negative, markedly positive MEGHANN) REC: I don't think this is a "coumadin failure" because she has recently been subtherapeutic and was recently hospitalized for 2-3 days with flu. She was basically laying in bed for these several days. Would continue coumadin to an INR 2-3. Discussed with Dr. Stroud, Vascular consult appreciated.
--- NOTE | 2017-12-22 09:12 | PN ---
Progress Note (short form) - Note Progress Note: Vascular Surgery Pt seen and examined with family at bedside. US shows left popliteal vein DVT with 2 day history of swelling. Pt has Afib, and recent dx of connective tissue disorder. Pt is on AC, and had a bout last week when she was admitted with the flu, INR was found to be subtherapeutic. Today INR is 4. Coumadin is on hold. Please resume AC once INR falls below two. Left leg wrapped with RADHA for compression. 12 hours on and 12 hours off. Leg elevation. Will need PT for ambulation. Chalo casey DO
[2017-12-22] MEDS ORDERED: PT OWN MED DRAWER 7, Y5N ONE (09:22)
[2017-12-22] MEDS: CARVEDILOL 25 MG TABLET (FP) PO SCH ×2 (09:29→21:09)
[2017-12-22] MEDS: predniSONE 20 MG TABLET (UD) PO SCH (09:29)
[2017-12-22] MEDS: CLOPIDOGREL BISULFATE 75 MG TABLET (FP) PO SCH (09:29)
[2017-12-22] MEDS: TIMOLOL 0.5% OPHTHALMIC SOL 5 ML BOTTLE OU SCH ×2 (09:31→21:08)
[2017-12-22] MEDS: DORZOLAMIDE 2% HCL OPHTHALMIC SOLUTION 10 ML BOTTLE OU SCH ×2 (09:31→21:07)
[2017-12-22] MEDS ORDERED: PATIENT'S OWN MEDICATION (NON-FORMULARY) (Ubidecarenone [Coq-10] 200 MG) PO SCH (10:00)
[2017-12-22] MEDS ORDERED: FUROSEMIDE 40 MG TABLET (FP) PO SCH (10:00)
[2017-12-22] MEDS ORDERED: ACETAMINOPHEN 325 MG TABLET (FP) ONE (10:39)
[2017-12-22] MEDS ORDERED: ACETAMINOPHEN 325 MG TABLET (FP) PO ONE (10:45)
--- NOTE | 2017-12-22 11:29 | CONSULT ---
Consult Consult Specialty:: Hematology - History of Present Illness History of Present Illness: 72 year old woman with h/o PAF on coumadin s/p PPM H/o CVA HTN Renal artery stenosis CAD Suspected connective tissue disease, + anticardiolipin AB (SLE negative, markedly positive MEGHANN), pericardial effusion, recently admitted for Influenza B + came to ER with LLE pain and swelling suspicious for DVT, DVT confirmed LLE popliteal vein. hematology consulted for new DVT , as pt was on coumadin. Pt seen and examined. Chart reviewed in detail. 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 Cardio/Vascular: Yes: AFIB, HTN, Hyperlipdemia, Other (pericarditis Pericardial effusion) Renal/: Yes: Other (Renal artery stenosis) ...: No Endocrine: Yes: Diabetes Mellitus - Past Surgical History Past Surgical History: Yes: Permanent Pacemaker - Alcohol/Substance Use Hx Alcohol Use: No - Smoking History Smoking history: Never smoked Have you smoked in the past 12 months: No Aproximately how many cigarettes per day: 5 If you are a former smoker, when did you quit?: 1993 Home Medications - Allergies Allergies/Adverse Reactions: Allergies Allergy/AdvReac Type Severity Reaction Status Date / Time aspirin Allergy Severe Verified 12/21/17 10:14 Penicillins Allergy Severe Verified 12/21/17 10:14 diclofenac Allergy Verified 12/21/17 10:14 shellfish derived Allergy Verified 12/21/17 10:14 lactose AdvReac Verified 12/21/17 10:14 iv contrast Allergy Uncoded 12/21/17 10:14 - Home Medications Home Medications: Ambulatory Orders Atorvastatin Ca [Lipitor] 40 mg PO HS 10/09/17 Clopidogrel Bisulfate [Plavix -] 75 mg PO DAILY 10/09/17 Colchicine 0.6 mg PO BID 10/09/17 Diltiazem HCl [Diltiazem 24Hr Cd] 240 mg PO DAILY 10/09/17 Metoclopramide HCl [Reglan] 5 mg PO DAILY PRN 10/09/17 Furosemide [Lasix -] 40 mg PO DAILY 12/11/17 Insulin Aspart [Novolog Flexpen] 0 unit SQ PRN 12/11/17 Insulin Glargine,Hum.rec.anlog [Lantus] 20 unit SQ AM 12/11/17 Linagliptin/Metformin HCl [Jentadueto 2.5 mg-500 mg Tab] 1 each PO BIDAC predniSONE [Deltasone -] 20 mg PO BID 12/11/17 Alprazolam [Xanax] 0.5 mg PO BID PRN 12/12/17 Ubidecarenone [Coq-10] 200 mg PO DAILY 12/12/17 Carvedilol [Coreg -] 25 mg PO BID tablet 12/13/17 Dorzolamide HCl [Trusopt 2% -] 1 drop OU BID drops 12/13/17 Latanoprost 0.005% Eye Drops [Xalatan 0.005% Eye Drops -] 1 drop OU HS drops Timolol 0.5% [Timoptic 0.5%] 1 drop OU BID drops 12/13/17 Warfarin Na [Coumadin -] 1 mg PO Q2D 12/21/17 Warfarin Sodium [Coumadin] 2 mg PO Q2D 12/21/17 Review of Systems - Review of Systems Constitutional: denies: Chills, Diaphoresis, Fever, Lethargy, Loss of Appetite, Unintentional Wgt. Loss Eyes: denies: Blind Spots HENT: denies: Difficult Swallowing Neck: denies: Decreased ROM, Lumps Cardiovascular: denies: Chest Pain, Edema, Palpitations, Shortness of Breath Respiratory: denies: Cough Musculoskeletal: reports: Extremity Pain Neurological: reports: No Symptoms Endocrine: reports: No Symptoms Hematology/Lymphatic: reports: No Symptoms Psychiatric: reports: No Symptoms Physical Exam Vital Signs: Vital Signs Temperature 98.2 F 12/22/17 09:55 Pulse Rate 62 12/22/17 09:55 Respiratory Rate 20 12/22/17 09:55 Blood Pressure 123/59 12/22/17 09:55 O2 Sat by Pulse Oximetry (%) 99 12/22/17 02:11 Constitutional: Yes: Well Nourished, No Distress, Calm Eyes: Yes: Conjunctiva Clear HENT: Yes: Atraumatic, Normocephalic Neck: Yes: Supple Cardiovascular: Yes: Regular Rate and Rhythm Respiratory: Yes: Regular, CTA Bilaterally Gastrointestinal: Yes: Normal Bowel Sounds, Soft Edema: Yes Edema: LLE: 2+ Peripheral Pulses WNL: Yes Labs: CBC, BMP 12/22/17 06:52 02/14/18 06:52 Imaging - Results Ultrasound: Report Reviewed Assessment/Plan New onset DVT in a patient with a possible Hypercoag state, agree with , rather than sub-therapeutic range of INR , her conditions like [place] her anti-cardiolipin ab,and others not limited to frequent hospitalizations , infections and a continued inflammatory state placed her at risk for a thrombotic state. reportedly she is uptodate with her age appropriate cancer screening. In her case, continuing coumadin would the ideal with INR aim of 2-3 , along with an anti-platelet agent (ASA allergy, on plavix ) and to be re-started when INR appropriate. NOACs not approved, though data awaited for "Lupus" patients. -monitor INR, dietery counselling they are aware -PT as tolerated -vascular c/s appreciated -monitor CBC. -for screening anemia labs -she has good OP f/u. She will be seen by her Supervisor Respiratory in the city once discharged
[2017-12-22] MEDS ORDERED: ACETAMINOPHEN 325 MG TABLET (FP) PO PRN (14:11)
[2017-12-22] MEDS ORDERED: INSULIN (NOVOLOG) ASPART 100 UNITS/ML 10ML VIAL ONE ×2 (16:56→20:57)
--- NOTE | 2017-12-22 17:03 | CON.PULM ---
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 Cardio/Vascular: Yes: AFIB, HTN, Hyperlipdemia, Other (pericarditis Pericardial effusion) Renal/: Yes: Other (Renal artery stenosis) ...: No Endocrine: Yes: Diabetes Mellitus - Past Surgical History Past Surgical History: Yes: Permanent Pacemaker - Alcohol/Substance Use Hx Alcohol Use: No - Smoking History Smoking history: Never smoked Have you smoked in the past 12 months: No Aproximately how many cigarettes per day: 5 If you are a former smoker, when did you quit?: 1993 - Social History ADL: Family Assistance Place of : Other History of Recent Travel: No Home Medications - Allergies Allergies/Adverse Reactions: Allergies Allergy/AdvReac Type Severity Reaction Status Date / Time aspirin Allergy Severe Verified 12/21/17 10:14 Penicillins Allergy Severe Verified 12/21/17 10:14 diclofenac Allergy Verified 12/21/17 10:14 shellfish derived Allergy Verified 12/21/17 10:14 lactose AdvReac Verified 12/21/17 10:14 iv contrast Allergy Uncoded 12/21/17 10:14 - Home Medications Home Medications: Ambulatory Orders Atorvastatin Ca [Lipitor] 40 mg PO HS 10/09/17 Clopidogrel Bisulfate [Plavix -] 75 mg PO DAILY 10/09/17 Colchicine 0.6 mg PO BID 10/09/17 Diltiazem HCl [Diltiazem 24Hr Cd] 240 mg PO DAILY 10/09/17 Metoclopramide HCl [Reglan] 5 mg PO DAILY PRN 10/09/17 Furosemide [Lasix -] 40 mg PO DAILY 12/11/17 Insulin Aspart [Novolog Flexpen] 0 unit SQ PRN 12/11/17 Insulin Glargine,Hum.rec.anlog [Lantus] 20 unit SQ AM 12/11/17 Linagliptin/Metformin HCl [Jentadueto 2.5 mg-500 mg Tab] 1 each PO BIDAC predniSONE [Deltasone -] 20 mg PO BID 12/11/17 Alprazolam [Xanax] 0.5 mg PO BID PRN 12/12/17 Ubidecarenone [Coq-10] 200 mg PO DAILY 12/12/17 Carvedilol [Coreg -] 25 mg PO BID tablet 12/13/17 Dorzolamide HCl [Trusopt 2% -] 1 drop OU BID drops 12/13/17 Latanoprost 0.005% Eye Drops [Xalatan 0.005% Eye Drops -] 1 drop OU HS drops Timolol 0.5% [Timoptic 0.5%] 1 drop OU BID drops 12/13/17 Warfarin Na [Coumadin -] 1 mg PO Q2D 12/21/17 Warfarin Sodium [Coumadin] 2 mg PO Q2D 12/21/17 Family Disease History - Family Disease History Family History: Unable to Obtain Review of Systems - Review of Systems Constitutional: denies: Fever Eyes: denies: Blurred Vision HENT: denies: Ear Discharge Neck: denies: Lumps Cardiovascular: denies: Chest Pain, Palpitations, Shortness of Breath Respiratory: denies: Cough, Hemoptysis, Orthopnea, Wheezing Gastrointestinal: denies: Abdominal Pain Musculoskeletal: reports: Extremity Pain Neurological: reports: No Symptoms Physical Exam Vital Sings: Vital Signs Temperature 98.7 F 12/22/17 14:27 Pulse Rate 60 12/22/17 14:27 Respiratory Rate 20 12/22/17 14:27 Blood Pressure 124/59 12/22/17 14:27 O2 Sat by Pulse Oximetry (%) 99 12/22/17 09:00 Constitutional: Yes: Calm Eyes: Yes: EOM Intact HENT: Yes: Normocephalic Neck: Yes: Trachea Midline Cardiovascular: Yes: Pulse Irregular, S1, S2 Respiratory: Yes: CTA Bilaterally Gastrointestinal: Yes: Soft, Abdomen, Obese Extremities: Yes: Calf Tenderness Edema: LLE: 3+ Integumentary: Yes: WNL Neurological: Yes: Alert Labs: CBC, BMP 12/22/17 06:52 12/22/17 06:52 REST REVIEWED Imaging - Results Chest X-ray: Report Reviewed, Image Reviewed Problem List - Problems (1) DVT (deep venous thrombosis) Code(s): I82.409 - ACUTE EMBOLISM AND THOMBOS UNSP DEEP VN UNSP LOWER EXTREMITY Qualifiers: DVT location: lower extremity Affected thrombotic vein of extremity: popliteal Chronicity: acute Laterality: left Qualified Code(s): I82.432 - Acute embolism and thrombosis of left popliteal vein (2) Afib Code(s): I48.91 - UNSPECIFIED ATRIAL FIBRILLATION Qualifiers: Atrial fibrillation type: paroxysmal Qualified Code(s): I48.0 - Paroxysmal atrial fibrillation (3) Anticardiolipin antibody positive Code(s): R76.8 - OTHER SPECIFIED ABNORMAL IMMUNOLOGICAL FINDINGS IN SERUM (4) CHF (congestive heart failure) Code(s): I50.9 - HEART FAILURE, UNSPECIFIED (5) Diabetes Code(s): E11.9 - TYPE 2 DIABETES MELLITUS WITHOUT COMPLICATIONS Qualifiers: Diabetes mellitus type: type 2 Assessment/Plan Acute LLE DVT PAF s/p PPM H/o CVA HTN Renal artery stenosis CAD + anticardiolipin AB (SLE negative, markedly positive MEGHANN) INR 4.02 Coumadin on hold until INR reaches 2.0 vivian wrap as per Vascular MD Low index of suspicion for PE at this time will follow thank you Bridgette VALENZUELA MD
--- NOTE | 2017-12-22 17:53 | PN ---
Progress Note, Physician History of Present Illness: Pt w/ pain of LLE - Current Medication List Current Medications: Active Medications Acetaminophen (Tylenol -) 325 mg PO Q6H PRN PRN Reason: PAIN LEVEL 6-10 Last Admin: 12/22/17 15:35 Dose: 325 mg Alprazolam (Xanax -) 0.5 mg PO BID PRN PRN Reason: ANXIETY Last Admin: 12/21/17 21:31 Dose: 0.5 mg Atorvastatin Calcium (Lipitor -) 40 mg PO HS [facility] Last Admin: 12/21/17 21:31 Dose: 40 mg Carvedilol (Coreg -) 25 mg PO BID [facility] Last Admin: 12/22/17 09:29 Dose: 25 mg Clopidogrel Bisulfate (Plavix -) 75 mg PO DAILY [facility] Last Admin: 12/22/17 09:29 Dose: 75 mg Diltiazem HCl (Cardizem Cd -) 240 mg PO DAILY [facility] Last Admin: 12/22/17 09:29 Dose: 240 mg Dorzolamide HCl (Trusopt 2%) 1 drop OU BID [facility] Last Admin: 12/22/17 09:31 Dose: 1 drop Furosemide (Lasix -) 40 mg PO DAILY [facility] Last Admin: 12/22/17 09:30 Dose: 40 mg Insulin Aspart (Novolog Vial Sliding Scale -) 1 vial SQ ACHS [facility] PRN Reason: Protocol Last Admin: 12/22/17 16:59 Dose: 8 units Insulin Detemir (Levemir Vial) 20 units SQ AM [facility] Last Admin: 12/22/17 06:46 Dose: 20 units Latanoprost (Xalatan 0.005% Eye Drops -) 1 drop OU HS [facility] Last Admin: 12/21/17 21:33 Dose: 1 drop Metformin HCl (Glucophage -) 500 mg PO BID@0700,1630 [facility] Last Admin: 12/22/17 16:59 Dose: 500 mg Prednisone (Deltasone -) 20 mg PO DAILY [facility] Last Admin: 12/22/17 09:29 Dose: 20 mg Sitagliptin Phosphate (Januvia -) 50 mg PO BID@0700,1630 [facility] Last Admin: 12/22/17 16:59 Dose: 50 mg Timolol Maleate (Timoptic 0.5%) 1 drop OU BID [facility] Last Admin: 12/22/17 09:31 Dose: 1 drop - Objective Vital Signs: Vital Signs Temperature 98.7 F 12/22/17 14:27 Pulse Rate 60 12/22/17 14:27 Respiratory Rate 20 12/22/17 14:27 Blood Pressure 124/59 12/22/17 14:27 O2 Sat by Pulse Oximetry (%) 99 12/22/17 09:00 Constitutional: Yes: Well Nourished Neck: Yes: WNL, Supple Cardiovascular: Yes: WNL, Regular Rate and Rhythm Respiratory: Yes: WNL, Regular, CTA Bilaterally Gastrointestinal: Yes: WNL, Normal Bowel Sounds, Soft Extremities: Yes: Other ((+) swelling) Labs: CBC, BMP 12/22/17 06:52 12/22/17 06:52 INR, PTT INR 4.02 (0.82-1.09) H* 12/22/17 06:52 Problem List - Problems (1) DVT (deep venous thrombosis) Assessment/Plan: PT/INR supratherapeutic Hold coumadin and monitor daily pt/inr and restart once at 2.5-3 Code(s): I82.409 - ACUTE EMBOLISM AND THOMBOS UNSP DEEP VN UNSP LOWER EXTREMITY Qualifiers: DVT location: lower extremity Affected thrombotic vein of extremity: popliteal Chronicity: acute Laterality: left Qualified Code(s): I82.432 - Acute embolism and thrombosis of left popliteal vein (2) Diabetes Assessment/Plan: Cont sliding scale w/ coverage/levemir/januvia/metformin Code(s): E11.9 - TYPE 2 DIABETES MELLITUS WITHOUT COMPLICATIONS Qualifiers: Diabetes mellitus type: type 2 (3) HLD (hyperlipidemia) Assessment/Plan: Cont lipitor Code(s): E78.5 - HYPERLIPIDEMIA, UNSPECIFIED (4) Hypertension Assessment/Plan: BP stable Cont antihypertensives Code(s): I10 - ESSENTIAL (PRIMARY) HYPERTENSION Qualifiers: Hypertension type: essential hypertension Qualified Code(s): I10 - Essential (primary) hypertension
[2017-12-22] MEDS: LATANOPROST 0.005% OPHTH SOLN 2.5ML BOTTLE OU SCH (21:08)
[2017-12-22] MEDS: ATORVASTATIN CA 40 MG TABLET (FP) PO SCH (21:08)
[2017-12-22] MEDS: ALPRAZolam 0.25 MG TABLET PO PRN (21:09)
[2017-12-23] MEDS: INSULIN SLIDING SCALE (NOVOLOG) 1 VIAL SQ SCH ×4 (06:11→21:40)
[2017-12-23] MEDS: sitaGLIPtin PHOSPHATE 50 MG TABLET PO SCH (06:29)
[2017-12-23] MEDS: metFORMIN HCL 500 MG TABLET (FP) PO SCH (06:29)
[2017-12-23] MEDS: INSULIN DETEMIR 100 UNITS/ML MDV SQ SCH ×2 (06:29→07:31)
[2017-12-23] MEDS ORDERED: INSULIN (NOVOLOG) ASPART 100 UNITS/ML 10ML VIAL ONE ×3 (06:49→17:46)
[2017-12-23] MEDS: ALPRAZolam 0.25 MG TABLET PO PRN (07:19)
[2017-12-23] MEDS ORDERED: ALBUTEROL SO4 0.083% IH SOL 2.5 MG/3 ML VIAL.NEB. NEB ONE (07:22)
[2017-12-23] MEDS ORDERED: ALBUTEROL SO4 0.5 % INH SOLN 2.5 MG/0.5 ML VIAL.NEB. NEB ONE (07:27)
[2017-12-23 07:44] LABS: BASO % 0.1 % (0-2.0); EOS % 0.6 % (0-4.5); HEMATOCRIT 30.5 % (32.4-45.2); HEMOGLOBIN 9.9 GM/dL (10.7-15.3); LYMPH % 21.1 % (8-40); MCH 28.4 pg (25.7-33.7); MCHC 32.3 g/dl (32.0-36.0); MEAN CELL VOLUME 87.9 fl (80-96); MEAN PLT VOLUME 9.2 fl (7.5-11.1); MONO % 7.1 % (3.8-10.2); NEUT % 71.1 % (42.8-82.8); PLATELET COUNT 123 K/MM3 (134-434); RBC 3.47 M/mm3 (3.60-5.2); WHITE BLOOD COUNT 7.7 K/mm3 (4.0-10.0)
[2017-12-23 07:53] LABS: INR 1.99 (0.82-1.09); PROTHROMBIN TIME (PATIENT) 22.5 SEC (9.98-11.88)
[2017-12-23 07:55] LABS: ACTIVATED PTT 24.9 SECONDS (26.9-34.4)
--- NOTE | 2017-12-23 08:13 | PN ---
Progress Note, Physician Chief Complaint: appears dypneic Slightly lethargic, but opens eyes and speaks. Significant clinical change from yesterday morning. She denies chest pain, but does feel short of breath O2 is 97% on 2LNC - Current Medication List Current Medications: Active Medications Acetaminophen (Tylenol -) 325 mg PO Q6H PRN PRN Reason: PAIN LEVEL 6-10 Last Admin: 12/22/17 15:35 Dose: 325 mg Alprazolam (Xanax -) 0.5 mg PO BID PRN PRN Reason: ANXIETY Last Admin: 12/23/17 07:19 Dose: 0.5 mg Atorvastatin Calcium (Lipitor -) 40 mg PO HS [facility] Last Admin: 12/22/17 21:08 Dose: 40 mg Carvedilol (Coreg -) 25 mg PO BID [facility] Last Admin: 12/22/17 21:09 Dose: 25 mg Clopidogrel Bisulfate (Plavix -) 75 mg PO DAILY [facility] Last Admin: 12/22/17 09:29 Dose: 75 mg Diltiazem HCl (Cardizem Cd -) 240 mg PO DAILY [facility] Last Admin: 12/22/17 09:29 Dose: 240 mg Dorzolamide HCl (Trusopt 2%) 1 drop OU BID [facility] Last Admin: 12/22/17 21:07 Dose: 1 drop Furosemide (Lasix -) 40 mg PO DAILY [facility] Last Admin: 12/22/17 09:30 Dose: 40 mg Insulin Aspart (Novolog Vial Sliding Scale -) 1 vial SQ ACHS [facility] PRN Reason: Protocol Last Admin: 12/23/17 06:11 Dose: Not Given Insulin Detemir (Levemir Vial) 20 units SQ AM [facility] Last Admin: 12/23/17 07:31 Dose: Not Given Latanoprost (Xalatan 0.005% Eye Drops -) 1 drop OU HS [facility] Last Admin: 12/22/17 21:08 Dose: 1 drop Metformin HCl (Glucophage -) 500 mg PO BID@0700,1630 [facility] Last Admin: 12/23/17 06:29 Dose: 500 mg Prednisone (Deltasone -) 20 mg PO DAILY [facility] Last Admin: 12/22/17 09:29 Dose: 20 mg Sitagliptin Phosphate (Januvia -) 50 mg PO BID@0700,1630 [facility] Last Admin: 02/15/18 06:29 Dose: 50 mg Timolol Maleate (Timoptic 0.5%) 1 drop OU BID [facility] Last Admin: 12/22/17 21:08 Dose: 1 drop - Objective Vital Signs: Vital Signs Temperature 97.3 F L 12/23/17 06:00 Pulse Rate 60 12/23/17 06:00 Respiratory Rate 18 12/23/17 06:00 Blood Pressure 133/55 12/23/17 06:00 O2 Sat by Pulse Oximetry (%) 99 12/22/17 09:00 Constitutional: Yes: Mild Distress Eyes: Yes: Conjunctiva Clear Neck: Yes: Supple Cardiovascular: Yes: Regular Rate and Rhythm Respiratory: Yes: Other (bilateral rales.) Gastrointestinal: Yes: Soft Edema: Yes Edema: LLE: 1+, RLE: 1+ Neurological: Yes: Alert, Oriented ...Motor Strength: WNL Labs: CBC, BMP 12/23/17 06:55 12/22/17 06:52 INR, PTT INR 4.02 (0.82-1.09) H* 12/22/17 06:52 Laboratory Tests 12/22/17 12/23/17 06:52 06:55 INR 4.02 H* Pending - ....Imaging X-ray: Pending EKG: Pending Assessment/Plan IMP: Acute LLE DVT PAF s/p PPM H/o CVA HTN Renal artery stenosis CAD Suspected connective tissue disease, + anticardiolipin AB (SLE negative, markedly positive MEGHANN) Now with dyspnea and bilateral rales: initial impression is acute on chronic diastolic CHF, PE is also considered as INR is 1.99 today REC: Supplimental O2 Lasix 40mg IV x 1 dose now Stat CXR and ECG Start Lovenox Echo Transfer to telemetry
[2017-12-23] MEDS ORDERED: FUROSEMIDE 40 MG/4 ML INJECTABLE VIAL IVPUSH ONE (08:23)
[2017-12-23] MEDS ORDERED: FUROSEMIDE 40 MG/4 ML INJECTABLE VIAL ONE (08:24)
--- NOTE | 2017-12-23 09:01 | PN ---
Progress Note (short form) - Note Progress Note: Medical coverage for Dr. Goddard Subjective: The patient was seen and examined at the bedside, she appears uncomfortable and short of breath. She denies any chest pain at this time. Current Medications Generic Name Dose Route Start Last Admin Trade Name Freq PRN Reason Stop Dose Admin Acetaminophen 325 mg 12/22/17 14:11 12/22/17 15:35 Tylenol - PO 325 mg Q6H PRN Administration PAIN LEVEL 6-10 Alprazolam 0.5 mg 12/21/17 19:22 12/23/17 07:19 Xanax - PO 0.5 mg BID PRN Administration ANXIETY Atorvastatin Calcium 40 mg 12/21/17 22:00 12/22/17 21:08 Lipitor - PO 40 mg HS [facility] Administration Carvedilol 25 mg 12/21/17 22:00 12/22/17 21:09 Coreg - PO 25 mg BID [facility] Administration Clopidogrel Bisulfate 75 mg 12/22/17 10:00 12/22/17 09:29 Plavix - PO 75 mg DAILY [facility] Administration Diltiazem HCl 240 mg 12/22/17 10:00 12/22/17 09:29 Cardizem Cd - PO 240 mg DAILY [facility] Administration Dorzolamide HCl 1 drop 12/21/17 22:00 12/22/17 21:07 Trusopt 2% OU 1 drop BID [facility] Administration Enoxaparin Sodium 70 mg 12/23/17 10:00 12/23/17 08:39 Lovenox - SQ 70 mg BID [facility] Administration Furosemide 40 mg 12/24/17 10:00 Lasix Injection - IVPUSH DAILY [facility] Insulin Aspart 1 vial 12/21/17 22:00 12/23/17 06:11 Novolog Vial Sliding Scale - SQ Not Given ACHS [facility] Protocol Insulin Detemir 20 units 12/22/17 07:00 12/23/17 07:31 Levemir Vial SQ Not Given AM [facility] Latanoprost 1 drop 12/21/17 22:00 12/22/17 21:08 Xalatan 0.005% Eye Drops - OU 1 drop HS [facility] Administration Metformin HCl 500 mg 12/22/17 07:00 12/23/17 06:29 Glucophage - PO 500 mg BID@0700,1630 [facility] Administration Prednisone 20 mg 12/22/17 10:00 12/22/17 09:29 Deltasone - PO 20 mg DAILY [facility] Administration Sitagliptin Phosphate 50 mg 12/22/17 07:00 12/23/17 06:29 Januvia - PO 50 mg BID@0700,1630 [facility] Administration Timolol Maleate 1 drop 12/21/17 22:00 12/22/17 21:08 Timoptic 0.5% OU 1 drop BID [facility] Administration Warfarin Sodium 3 mg 12/23/17 18:00 Coumadin - PO DAILY@1800 [facility] Objective: Vital Signs Period Temp Pulse Resp BP Sys/[place] Pulse Ox Last 24 Hr 97.3 F-98.9 F 60-62 18-24 123-162/55-85 Physical Exam: General: mild distress Lungs: B/l rales Heart: RRR, S1S2 Abd: Soft, non-tender, non-distended. Normoactive bowel sounds Ext: 1+ RLE, 2+ LLE pitting edema. 2+ DP/PT bilaterally CBCD WBC 7.7 K/mm3 (4.0-10.0) 12/23/17 06:55 RBC 3.47 M/mm3 (3.60-5.2) L 12/23/17 06:55 Hgb 9.9 GM/dL (10.7-15.3) L 12/23/17 06:55 Hct 30.5 % (32.4-45.2) L 12/23/17 06:55 MCV 87.9 fl (80-96) 12/23/17 06:55 MCHC 32.3 g/dl (32.0-36.0) 12/23/17 06:55 RDW 17.0 % (11.6-15.6) H 12/23/17 06:55 Plt Count 123 K/MM3 (134-434) L 12/23/17 06:55 MPV 9.2 fl (7.5-11.1) 12/23/17 06:55 CMP Sodium 141 mmol/L (136-145) 12/22/17 06:52 Potassium 4.2 mmol/L (3.5-5.1) 12/22/17 06:52 Chloride 101 mmol/L (98-107) 12/22/17 06:52 Carbon Dioxide 33 mmol/L (21-32) H 12/22/17 06:52 Anion Gap 7 (8-16) L 12/22/17 06:52 BUN 30 mg/dL (7-18) H 12/22/17 06:52 Creatinine 1.1 mg/dL (0.55-1.02) H 12/22/17 06:52 Creat Clearance w eGFR 48.69 (>60) 12/22/17 06:52 Random Glucose 138 mg/dL (74-106) H 12/22/17 06:52 Calcium 8.1 mg/dL (8.5-10.1) L 12/22/17 06:52 Total Bilirubin 0.6 mg/dL (0.2-1.0) D 12/22/17 06:52 AST 21 U/L (15-37) 12/22/17 06:52 ALT 52 U/L (12-78) 12/22/17 06:52 Alkaline Phosphatase 76 U/L (45-117) 12/22/17 06:52 Total Protein 5.1 g/dl (6.4-8.2) L 12/22/17 06:52 Albumin 2.7 g/dl (3.4-5.0) L 12/22/17 06:52 CARDIAC ENZYMES Creatine Kinase 110 IU/L (26-192) 12/21/17 11:20 Troponin I 0.07 ng/ml (0.00-0.05) H 12/21/17 11:20 Assessment: This is a 72 year old female with PMHx of paroxysmal a.fib (on home coumadin), s/p PPM, CVA, HTN, renal artery stenosis, CAD, +anticardiolipin AB, pericardial effusion, recent treatment for influenza, who presented to the ED with LLE pain and swelling and was found to have a DVT Plan: 1) Mild respiratory distress - PE vs. acute on chronic diastolic heart failure - Stat Lasix 40mg IV - Stat Chest x-ray - Stat ABG - EKG - F/u ECHO - Daily weights, strict I&O - INR 1.99 today, start Lovenox - Cardiac monitoring - Stat chest CTA to r/o PE given hx of subtherapeutic INR and DVT - Appreciate cardiology consult 2) DVT - Continue Lovenox 3) DM - BGM ACHS - Levemir 20u sq am - ISS ACHS - Hold Metformin (for CTA) - Hold Januvia 4) F/E/N: - Diabetic/sodium controlled diet - Monitor electrolytes 5) Prophylaxis: - On full dose Lovenox 6) Dispo: - Requires continued inpatient care CODE STATUS: FULL CODE Visit type - Emergency Visit Emergency Visit: Yes ED Registration Date: 12/21/17 Care time: The patient presented to the Emergency Department on the above date and was hospitalized for further evaluation of their emergent condition. - New Patient This patient is new to me today: Yes Date on this admission: 12/23/17 - Critical Care Critical Care patient: No
[2017-12-23 09:45] LABS: ANION GAP 7 (8-16); BLOOD UREA NITROGEN 31 mg/dL (7-18); CALCIUM 8.3 mg/dL (8.5-10.1); CHLORIDE 103 mmol/L (98-107); CO2 33 mmol/L (21-32); GLUCOSE,RANDOM 66 mg/dL (74-106); POTASSIUM 3.3 mmol/L (3.5-5.1); SODIUM 143 mmol/L (136-145)
[2017-12-23 09:47] LABS: N-TERMINAL BNP 821.92 pg/ml (5-125)
[2017-12-23] MEDS ORDERED: PT OWN MED DRAWER 7, Y5N ONE ×3 (09:55→18:15)
[2017-12-23] MEDS: predniSONE 20 MG TABLET (UD) PO SCH (09:56)
[2017-12-23] MEDS: CLOPIDOGREL BISULFATE 75 MG TABLET (FP) PO SCH (09:56)
[2017-12-23] MEDS: TIMOLOL 0.5% OPHTHALMIC SOL 5 ML BOTTLE OU SCH ×2 (09:57→21:39)
[2017-12-23] MEDS: CARVEDILOL 25 MG TABLET (FP) PO SCH ×2 (09:57→21:37)
[2017-12-23] MEDS: DORZOLAMIDE 2% HCL OPHTHALMIC SOLUTION 10 ML BOTTLE OU SCH ×2 (09:57→21:39)
[2017-12-23] MEDS ORDERED: WARFARIN NA 2.5 MG TABLET (FP) PO SCH (10:00)
[2017-12-23] MEDS ORDERED: ENOXAPARIN NA (PORCINE) 80 MG/0.8 ML DISP.SYRIN SQ SCH ×2 (10:00)
--- NOTE | 2017-12-23 11:47 | EKG ---
Test Reason : Blood Pressure : / mmHG Vent. Rate : 060 BPM Atrial Rate : 060 BPM P-R Int : 184 ms QRS Dur : 132 ms QT Int : 424 ms P-R-T Axes : 016 006 186 degrees QTc Int : 424 ms Atrial-paced rhythm NON-SPECIFIC INTRA-VENTRICULAR CONDUCTION BLOCK CANNOT RULE OUT ANTERIOR INFARCT (CITED ON OR BEFORE 23-DEC-2017) T WAVE ABNORMALITY, CONSIDER INFEROLATERAL ISCHEMIA ABNORMAL ECG WHEN COMPARED WITH ECG OF 21-DEC-2017 12:59, NO SIGNIFICANT CHANGE WAS FOUND Confirmed by KE HEALY MD ([id number]) on 12/23/2017 11:47:00 AM Referred By: Confirmed By:KE EHALY MD
[2017-12-23 12:13] LABS: ARTERIAL BLD GAS O2 SATURATION 97.5 % (90-98.9); ARTERIAL BLOOD GAS PCO2 44.1 mmHg (35-45); ARTERIAL BLOOD GAS PO2 92.3 mmHg (70-100); ARTERIAL BLOOD GAS pH 7.49 (7.35-7.45)
--- NOTE | 2017-12-23 12:21 | PN ---
Progress Note (short form) - Note Progress Note: pt seen and examined daughters at bedside events noted was better until the am but had dyspnea, was lethargic. O/E: General: alert, better than the am reportedly HEENT: NCAT Cor: RRR Lungs: decreased Breath sounds Abd: Soft LE: LLE +swelling, +calf tenderness present Last Vital Signs Temp Pulse Resp BP Pulse Ox 98.0 F 60 24 157/85 99 12/23/17 08:17 12/23/17 08:17 12/23/17 08:17 12/23/17 08:17 12/22/17 09:00 CBC, BMP 12/23/17 06:55 12/23/17 08:50 Current Medications Generic Name Dose Route Start Last Admin Trade Name Freq PRN Reason Stop Dose Admin Acetaminophen 325 mg 12/22/17 14:11 12/22/17 15:35 Tylenol - PO 325 mg Q6H PRN Administration PAIN LEVEL 6-10 Alprazolam 0.5 mg 12/21/17 19:22 12/23/17 07:19 Xanax - PO 0.5 mg BID PRN Administration ANXIETY Atorvastatin Calcium 40 mg 12/21/17 22:00 12/22/17 21:08 Lipitor - PO 40 mg HS [facility] Administration Carvedilol 25 mg 12/21/17 22:00 12/23/17 09:57 Coreg - PO 25 mg BID [facility] Administration Clopidogrel Bisulfate 75 mg 12/22/17 10:00 12/23/17 09:56 Plavix - PO 75 mg DAILY [facility] Administration Diltiazem HCl 240 mg 12/22/17 10:00 12/23/17 09:56 Cardizem Cd - PO 240 mg DAILY [facility] Administration Dorzolamide HCl 1 drop 12/21/17 22:00 12/23/17 09:57 Trusopt 2% OU 1 drop BID [facility] Administration Enoxaparin Sodium 70 mg 12/23/17 10:05 Lovenox - SQ BID [facility] Furosemide 40 mg 12/24/17 10:00 Lasix Injection - IVPUSH DAILY [facility] Insulin Aspart 1 vial 12/21/17 22:00 12/23/17 06:11 Novolog Vial Sliding Scale - SQ Not Given ACHS [facility] Protocol Insulin Detemir 20 units 12/22/17 07:00 12/23/17 07:31 Levemir Vial SQ Not Given AM [facility] Latanoprost 1 drop 12/21/17 22:00 12/22/17 21:08 Xalatan 0.005% Eye Drops - OU 1 drop HS [facility] Administration Prednisone 20 mg 12/22/17 10:00 12/23/17 09:56 Deltasone - PO 20 mg DAILY [facility] Administration Timolol Maleate 1 drop 12/21/17 22:00 12/23/17 09:57 Timoptic 0.5% OU 1 drop BID [facility] Administration Warfarin Sodium 3 mg 12/23/17 18:00 Coumadin - PO DAILY@1800 [facility] Acute Onset SOB/lethargy this am: ruling out PE With platelets on the down trend, and CXR suspicious for an infectious process ( [place] she is s/p Rx for Influenza ),low threshold to start abx. Ordered blood cultures. d/w hospitalist [facility] [employer] Lower extremity DVT Now on Lovenox. with coumadin bridge monitor closely. trell guerrier
[2017-12-23 12:40] LABS: ALLENS TEST POSITIVE
--- NOTE | 2017-12-23 14:42 | PN ---
Progress Note (short form) - Note Progress Note: Events noted. CTA reviewed. No PE but bilateral infiltrates consistent with PNA. ID has been contacted for ABX coverage. Intake & Output 12/20/17 12/21/17 12/22/17 12/23/17 23:59 23:59 23:59 23:59 Intake Total 1700 Balance 1700 Weight 165 lb 168 lb 167 lb 2 oz Last Vital Signs Temp Pulse Resp BP Pulse Ox 98.0 F 60 24 157/85 99 12/23/17 08:17 12/23/17 08:17 12/23/17 08:17 12/23/17 08:17 12/22/17 09:00 Active Medications Acetaminophen (Tylenol -) 325 mg PO Q6H PRN PRN Reason: PAIN LEVEL 6-10 Last Admin: 12/22/17 15:35 Dose: 325 mg Alprazolam (Xanax -) 0.5 mg PO BID PRN PRN Reason: ANXIETY Last Admin: 12/23/17 07:19 Dose: 0.5 mg Atorvastatin Calcium (Lipitor -) 40 mg PO HS [facility] Last Admin: 12/22/17 21:08 Dose: 40 mg Carvedilol (Coreg -) 25 mg PO BID [facility] Last Admin: 12/23/17 09:57 Dose: 25 mg Clopidogrel Bisulfate (Plavix -) 75 mg PO DAILY [facility] Last Admin: 12/23/17 09:56 Dose: 75 mg Diltiazem HCl (Cardizem Cd -) 240 mg PO DAILY [facility] Last Admin: 12/23/17 09:56 Dose: 240 mg Dorzolamide HCl (Trusopt 2%) 1 drop OU BID [facility] Last Admin: 12/23/17 09:57 Dose: 1 drop Enoxaparin Sodium (Lovenox -) 70 mg SQ BID [facility] Furosemide (Lasix Injection -) 40 mg IVPUSH DAILY [facility] Insulin Aspart (Novolog Vial Sliding Scale -) 1 vial SQ ACHS [facility] PRN Reason: Protocol Last Admin: 12/23/17 14:01 Dose: Not Given Insulin Detemir (Levemir Vial) 20 units SQ AM [facility] Last Admin: 12/23/17 07:31 Dose: Not Given Latanoprost (Xalatan 0.005% Eye Drops -) 1 drop OU HS [facility] Last Admin: 12/22/17 21:08 Dose: 1 drop Prednisone (Deltasone -) 20 mg PO DAILY [facility] Last Admin: 12/23/17 09:56 Dose: 20 mg Timolol Maleate (Timoptic 0.5%) 1 drop OU BID [facility] Last Admin: 12/23/17 09:57 Dose: 1 drop Warfarin Sodium (Coumadin -) 3 mg PO DAILY@1800 [facility] Constitutional: Yes: Mildly tachypeic at rest Eyes: Yes: EOM Intact HENT: Yes: Normocephalic Neck: Yes: Trachea Midline Cardiovascular: Yes: Pulse Irregular, S1, S2 Respiratory: Yes: Bilateral rhonchi, no wheezing Gastrointestinal: Yes: Soft, Abdomen, Obese Extremities: Yes: Calf Tenderness Edema: LLE: 3+ Integumentary: Yes: WNL Neurological: Yes: Alert Labs: Laboratory Results - last 24 hr 12/22/17 12/22/17 12/23/17 16:44 21:12 05:30 WBC RBC Hgb Hct MCV MCH MCHC RDW Plt Count MPV Neutrophils % Lymphocytes % Monocytes % Eosinophils % Basophils % PT with INR INR PTT (Actin FS) Anticoagulation Therapy Puncture Site ABG pH ABG pCO2 at Pt Temp ABG pO2 at Pt Temp ABG HCO3 ABG O2 Sat (Measured) ABG O2 Content ABG Base Excess Robert Test O2 Delivery Device Oxygen Flow Rate Vent Mode Vent Rate Mechanical Rate Pressure Support Vent Sodium Potassium Chloride Carbon Dioxide Anion Gap BUN Creatinine POC Glucometer 375 152 89 Random Glucose Calcium Ferritin LD Total Creatine Kinase Creatine Kinase Index CK-MB (CK-2) Troponin I B-Natriuretic Peptide 12/23/17 12/23/17 12/23/17 06:55 06:55 06:55 WBC 7.7 RBC 3.47 L Hgb 9.9 L Hct 30.5 L MCV 87.9 MCH 28.4 MCHC 32.3 RDW 17.0 H Plt Count 123 L MPV 9.2 Neutrophils % 71.1 Lymphocytes % 21.1 D Monocytes % 7.1 Eosinophils % 0.6 D Basophils % 0.1 PT with INR 22.50 H INR 1.99 H D PTT (Actin FS) 24.9 L Anticoagulation Therapy Puncture Site ABG pH ABG pCO2 at Pt Temp ABG pO2 at Pt Temp ABG HCO3 ABG O2 Sat (Measured) ABG O2 Content ABG Base Excess Robert Test O2 Delivery Device Oxygen Flow Rate Vent Mode Vent Rate Mechanical Rate Pressure Support Vent Sodium Potassium Chloride Carbon Dioxide Anion Gap BUN Creatinine POC Glucometer Random Glucose Calcium Ferritin 26.572 LD Total 216 Creatine Kinase Creatine Kinase Index CK-MB (CK-2) Troponin I B-Natriuretic Peptide 12/23/17 12/23/17 12/23/17 07:25 08:50 12:00 WBC RBC Hgb Hct MCV MCH MCHC RDW Plt Count MPV Neutrophils % Lymphocytes % Monocytes % Eosinophils % Basophils % PT with INR INR PTT (Actin FS) Anticoagulation Therapy No Result Required. Puncture Site Left radial ABG pH 7.49 H ABG pCO2 at Pt Temp 44.1 ABG pO2 at Pt Temp 92.3 ABG HCO3 33.1 H ABG O2 Sat (Measured) 97.5 ABG O2 Content 14.4 L ABG Base Excess 9.0 H Robert Test Positive O2 Delivery Device No Result Required. Oxygen Flow Rate Yes Vent Mode No Result Required. Vent Rate No Result Required. Mechanical Rate No Result Required. Pressure Support Vent No Result Required. Sodium 143 Potassium 3.3 L Chloride 103 Carbon Dioxide 33 H Anion Gap 7 L BUN 31 H Creatinine 1.0 POC Glucometer 77 Random Glucose 66 L Calcium 8.3 L Ferritin LD Total Creatine Kinase 204 H Creatine Kinase Index 1.2 CK-MB (CK-2) 2.503 Troponin I 0.06 H B-Natriuretic Peptide 821.92 H 12/23/17 13:02 WBC RBC Hgb Hct MCV MCH MCHC RDW Plt Count MPV Neutrophils % Lymphocytes % Monocytes % Eosinophils % Basophils % PT with INR INR PTT (Actin FS) Anticoagulation Therapy Puncture Site ABG pH ABG pCO2 at Pt Temp ABG pO2 at Pt Temp ABG HCO3 ABG O2 Sat (Measured) ABG O2 Content ABG Base Excess Robert Test O2 Delivery Device Oxygen Flow Rate Vent Mode Vent Rate Mechanical Rate Pressure Support Vent Sodium Potassium Chloride Carbon Dioxide Anion Gap BUN Creatinine POC Glucometer 58 Random Glucose Calcium Ferritin LD Total Creatine Kinase Creatine Kinase Index CK-MB (CK-2) Troponin I B-Natriuretic Peptide Problem List - Problems (1) DVT (deep venous thrombosis) Code(s): I82.409 - ACUTE EMBOLISM AND THOMBOS UNSP DEEP VN UNSP LOWER EXTREMITY Qualifiers: DVT location: lower extremity Affected thrombotic vein of extremity: popliteal Chronicity: acute Laterality: left Qualified Code(s): I82.432 - Acute embolism and thrombosis of left popliteal vein (2) Afib Code(s): I48.91 - UNSPECIFIED ATRIAL FIBRILLATION Qualifiers: Atrial fibrillation type: paroxysmal Qualified Code(s): I48.0 - Paroxysmal atrial fibrillation (3) Anticardiolipin antibody positive Code(s): R76.8 - OTHER SPECIFIED ABNORMAL IMMUNOLOGICAL FINDINGS IN SERUM (4) CHF (congestive heart failure) Code(s): I50.9 - HEART FAILURE, UNSPECIFIED (5) Diabetes Code(s): E11.9 - TYPE 2 DIABETES MELLITUS WITHOUT COMPLICATIONS Qualifiers: Diabetes mellitus type: type 2 (6) Community Acquired PNA Assessment/Plan Acute LLE DVT PAF s/p PPM H/o CVA HTN Renal artery stenosis CAD (+) anticardiolipin AB (SLE negative, markedly positive MEGHANN) ABX to be intiated by ID Yates culture AC for DVT Local wound care per Surgery O2 as needed to maintain saturation Aspiration precautions Dr Hart
--- NOTE | 2017-12-23 15:06 | PN ---
Progress Note, Physician Chief Complaint: ID I saw patient on Dec 11 with positive Influenza B no respiratory distress and a normal appearing chest xray I advised Tamiflu on discharge which she did not take. Day post discharge saw Dr Johnson for couph given 7 days of unknown antibiotics. Now diagnosis of left leg pain with DVT. earlier became diaphoretic after an insulin injection and did not feel well Was wheezing as well Couph persistant - Current Medication List Current Medications: Active Medications Acetaminophen (Tylenol -) 325 mg PO Q6H PRN PRN Reason: PAIN LEVEL 6-10 Last Admin: 12/22/17 15:35 Dose: 325 mg Alprazolam (Xanax -) 0.5 mg PO BID PRN PRN Reason: ANXIETY Last Admin: 12/23/17 07:19 Dose: 0.5 mg Atorvastatin Calcium (Lipitor -) 40 mg PO HS [facility] Last Admin: 12/22/17 21:08 Dose: 40 mg Carvedilol (Coreg -) 25 mg PO BID [facility] Last Admin: 12/23/17 09:57 Dose: 25 mg Clopidogrel Bisulfate (Plavix -) 75 mg PO DAILY [facility] Last Admin: 12/23/17 09:56 Dose: 75 mg Diltiazem HCl (Cardizem Cd -) 240 mg PO DAILY [facility] Last Admin: 12/23/17 09:56 Dose: 240 mg Dorzolamide HCl (Trusopt 2%) 1 drop OU BID [facility] Last Admin: 12/23/17 09:57 Dose: 1 drop Enoxaparin Sodium (Lovenox -) 70 mg SQ BID [facility] Furosemide (Lasix Injection -) 40 mg IVPUSH DAILY [facility] Levofloxacin (Levaquin 500 Mg Premixed Ivpb -) 500 mg in 100 mls @ 100 mls/hr IVPB DAILY [facility] Insulin Aspart (Novolog Vial Sliding Scale -) 1 vial SQ ACHS [facility] PRN Reason: Protocol Last Admin: 12/23/17 14:01 Dose: Not Given Insulin Detemir (Levemir Vial) 20 units SQ AM [facility] Last Admin: 12/23/17 07:31 Dose: Not Given Latanoprost (Xalatan 0.005% Eye Drops -) 1 drop OU HS [facility] Last Admin: 12/22/17 21:08 Dose: 1 drop Prednisone (Deltasone -) 20 mg PO DAILY [facility] Last Admin: 12/23/17 09:56 Dose: 20 mg Timolol Maleate (Timoptic 0.5%) 1 drop OU BID [facility] Last Admin: 12/23/17 09:57 Dose: 1 drop Warfarin Sodium (Coumadin -) 3 mg PO DAILY@1800 [facility] - Objective Vital Signs: Vital Signs Temperature 98.8 F 12/23/17 14:59 Pulse Rate 60 12/23/17 14:59 Respiratory Rate 22 12/23/17 14:59 Blood Pressure 119/59 12/23/17 14:59 O2 Sat by Pulse Oximetry (%) 99 12/22/17 09:00 Constitutional: Yes: Well Nourished, No Distress Eyes: Yes: WNL, Conjunctiva Clear Neck: Yes: WNL, Supple Cardiovascular: Yes: Regular Rate and Rhythm, S1, S2 Respiratory: Yes: WNL, Regular, CTA Bilaterally, Diminished Gastrointestinal: Yes: Soft. No: Tenderness Extremities: Yes: Other (swelling left leg) Labs: CBC, BMP 12/23/17 06:55 12/23/17 08:50 INR, PTT INR 1.99 (0.82-1.09) H D 12/23/17 06:55 Problem List - Problems (1) Bilateral pneumonia Code(s): J18.9 - PNEUMONIA, UNSPECIFIED ORGANISM (2) DVT (deep venous thrombosis) Code(s): I82.409 - ACUTE EMBOLISM AND THOMBOS UNSP DEEP VN UNSP LOWER EXTREMITY Qualifiers: DVT location: lower extremity Affected thrombotic vein of extremity: popliteal Chronicity: acute Laterality: left Qualified Code(s): I82.432 - Acute embolism and thrombosis of left popliteal vein (3) Diabetes Code(s): E11.9 - TYPE 2 DIABETES MELLITUS WITHOUT COMPLICATIONS Qualifiers: Diabetes mellitus type: type 2 Assessment/Plan Laboratory Tests 12/23/17 06:55 WBC 7.7 Hgb 9.9 L Hct 30.5 L Plt Count 123 L Assessment Post influenza pneumonia ? staph aureus Pneumococcus PCN anaphylaxis Recent Influenza B DVT LLE Anitcardiolipin syndrome Plan Blood cultures x 2 Sputum c/s Vancomycin and Aztreonam LGA
[2017-12-23] MEDS ORDERED: ALPRAZolam 0.25 MG TABLET PO PRN (15:56)
--- NOTE | 2017-12-23 16:02 | CONS ---
INFECTIOUS DISEASE CONSULTATION DATE OF CONSULTATION: DATE OF DICTATION: 12/23/2017 REASON FOR CONSULTATION: This is a 72-year-old female who I am asked to see for evaluation of bilateral pulmonary infiltrates seen on a CAT scan earlier today. HISTORY OF PRESENT ILLNESS: Patient is known to me as I had seen her in consultation on December 12. At which time, she presented with a productive cough and mild wheezing and was found to have influenza B. A chest x-ray at that time was completely normal, and I started her on Tamiflu and suggested that her levofloxacin could be discontinued. She spent approximately 2 days in the hospital with a recommendation to complete Tamiflu at home. According to the family, she did not take any further Tamiflu. She did, however, see her primary care doctor the next day, and according to her daughters, may have been still complaining of coughing. At which time, she was prescribed an oral antibiotic for 7 days. They did not know the name of what she took. This week, she developed pain in her left lower extremity. She had a duplex done which documented a DVT. Earlier this morning, she was noted to become diaphoretic with wheezing, congestion, and cough, and a CAT scan of the chest was obtained to rule out a pulmonary embolus. PE was ruled out, but she had bilateral lower lobe infiltrates with air bronchograms noted. The patient denied any hemoptysis. She has an anticardiolipin syndrome and has been anticoagulated recently with Coumadin. Her INR on admission here was 5.4 and today is 1.9. She denies any chills, has been afebrile. PAST MEDICAL HISTORY: Includes anticardiolipin syndrome, a permanent pacemaker, paroxysmal atrial fibrillation, stroke, hypertension, renal artery stenosis, coronary artery disease, and suspected connective tissue disease with markers for lupus with strongly positive MEGHANN. MEDICATIONS AT HOME: Include atorvastatin, Plavix, , Lasix, insulin, carvedilol, Coumadin. ALLERGIES: PENICILLIN with anaphylaxis and throat swelling. SOCIAL HISTORY: Former smoker, quit in 1993. No history of alcohol use. FAMILY HISTORY: Reviewed, noncontributory. REVIEW OF SYSTEMS: Respiratory: Cough, chest congestion, wheezing. No hemoptysis. Cardiac: No chest pain, palpitations, syncope. Gastrointestinal: No nausea, vomiting, abdominal pain. Genitourinary: No dysuria, hematuria, urinary frequency. PHYSICAL EXAMINATION: General: She was a pleasant, alert woman in no acute distress. Vital Signs: The temperature was 98.8, pulse 60, blood pressure 120/59, respirations 22, O2 saturation 99% on room air. Neck: Supple.Lungs: With diminished breath sounds bilaterally. Heart: S1, S2 without audible murmur. Abdomen: Soft, nontender, without hepatosplenomegaly. Extremities: With diffuse swelling of the left lower leg and foot. DIAGNOSTIC DATA: Her INR today 1.9. White count of 7.7, hemoglobin 9.9, platelets of 123. BUN 7, creatinine 1.0. ASSESSMENT: A 72-year-old female with multiple comorbidities status post recent discharge December 11 for documented influenza B, sent home on Tamiflu, returns now with new deep venous thrombosis in the left lower extremity, respiratory complaints of wheezing and cough, with finding on chest CAT scan of bilateral pulmonary infiltrates. Possibility of a post-influenza pneumonia is considered as well as possible hospital-acquired pneumonia. She has anaphylaxis to PENICILLIN. We will get blood cultures, legionella urinary antigen, and sputum and empirically treat her with vancomycin and aztreonam pending cultures. ARIE PEACOCK M.D. [id number]
[2017-12-23] MEDS: POTASSIUM CHLORIDE TABS 20 MEQ TABLET.ER (FP) PO SCH (17:38)
[2017-12-23] MEDS ORDERED: WARFARIN NA 3 MG TABLET PO SCH ×2 (18:00)
[2017-12-23] MEDS: AZTREONAM 2 GM in DEXTROSE 5%-WATER - 100 ML IV SCH (20:46)
[2017-12-23] MEDS: ATORVASTATIN CA 40 MG TABLET (FP) PO SCH (21:37)
[2017-12-23] MEDS: ENOXAPARIN NA (PORCINE) 80 MG/0.8 ML DISP.SYRIN SQ SCH (21:38)
[2017-12-23] MEDS: LATANOPROST 0.005% OPHTH SOLN 2.5ML BOTTLE OU SCH (21:39)
[2017-12-24] MEDS: AZTREONAM 2 GM in DEXTROSE 5%-WATER - 100 ML IV SCH ×3 (01:01→17:00)
[2017-12-24 03:21] LABS: URINE APPEARANCE CLEAR; URINE BILIRUBIN NEGATIVE (NEGATIVE); URINE BLOOD NEGATIVE (NEGATIVE); URINE COLOR STRAW; URINE GLUCOSE (UA) 2+ (NEGATIVE); URINE KETONE NEGATIVE (NEGATIVE); URINE LEUK ESTERASE TRACE (NEGATIVE); URINE NITRITE NEGATIVE (NEGATIVE); URINE PROTEIN NEGATIVE (NEGATIVE); URINE UROBILINOGEN NEGATIVE mg/dL (0.2-1.0)
[2017-12-24] MEDS: metFORMIN HCL 500 MG TABLET (FP) PO SCH (04:27)
[2017-12-24] MEDS: sitaGLIPtin PHOSPHATE 50 MG TABLET PO SCH (04:28)
[2017-12-24 06:07] LABS: SERUM IRON SATURATION 21 % (15-55); TOTAL IRON BINDING CAPACITY 237 ug/dL (250-450); UIBC 188 ug/dL (118-369)
[2017-12-24] MEDS: INSULIN SLIDING SCALE (NOVOLOG) 1 VIAL SQ SCH ×4 (06:37→21:59)
[2017-12-24 07:33] LABS: BASO % 0.1 % (0-2.0); EOS % 1.1 % (0-4.5); HEMATOCRIT 28.7 % (32.4-45.2); HEMOGLOBIN 9.3 GM/dL (10.7-15.3); LYMPH % 24.2 % (8-40); MCH 28.8 pg (25.7-33.7); MCHC 32.4 g/dl (32.0-36.0); MEAN CELL VOLUME 88.8 fl (80-96); MEAN PLT VOLUME 9.9 fl (7.5-11.1); MONO % 5.3 % (3.8-10.2); NEUT % 69.3 % (42.8-82.8); PLATELET COUNT 137 K/MM3 (134-434); RBC 3.24 M/mm3 (3.60-5.2); RDW 17.4 % (11.6-15.6); WHITE BLOOD COUNT 7.9 K/mm3 (4.0-10.0)
[2017-12-24 07:39] LABS: INR 1.71 (0.82-1.09); PROTHROMBIN TIME (PATIENT) 19.3 SEC (9.98-11.88)
[2017-12-24 07:53] LABS: CHLORIDE 102 mmol/L (98-107); POTASSIUM 4.1 mmol/L (3.5-5.1); SODIUM 141 mmol/L (136-145)
[2017-12-24 08:03] LABS: ALBUMIN 2.4 g/dl (3.4-5.0); ALK PHOS 65 U/L (45-117); ANION GAP 7 (8-16); BILIRUBIN,TOTAL 0.6 mg/dL (0.2-1.0); BLOOD UREA NITROGEN 32 mg/dL (7-18); CALCIUM 8.2 mg/dL (8.5-10.1); CO2 32 mmol/L (21-32); CREATININE 1.1 mg/dL (0.55-1.02); GLUCOSE,RANDOM 120 mg/dL (74-106); SGOT/AST 20 U/L (15-37); SGPT/ALT 36 U/L (12-78)
--- NOTE | 2017-12-24 08:31 | PN ---
Progress Note, Physician Chief Complaint: Markedly improved Less dyspnea Appears comfortable. Bilateral PNA noted on CT, seen by ID and started on Vanco and Aztreonam Cultures thus far - TELE: Reviewed. No significant arrhythmias - Current Medication List Current Medications: Active Medications Acetaminophen (Tylenol -) 325 mg PO Q6H PRN PRN Reason: PAIN LEVEL 6-10 Alprazolam (Xanax -) 0.5 mg PO BID PRN PRN Reason: ANXIETY Atorvastatin Calcium (Lipitor -) 40 mg PO HS [facility] Last Admin: 12/23/17 21:37 Dose: 40 mg Carvedilol (Coreg -) 25 mg PO BID JON[facility] Last Admin: 12/23/17 21:37 Dose: 25 mg Clopidogrel Bisulfate (Plavix -) 75 mg PO DAILY [facility] Diltiazem HCl (Cardizem Cd -) 240 mg PO DAILY [facility] Dorzolamide HCl (Trusopt 2%) 1 drop OU BID [facility] Last Admin: 12/23/17 21:39 Dose: 1 drop Enoxaparin Sodium (Lovenox -) 70 mg SQ BID [facility] Last Admin: 12/23/17 21:38 Dose: 70 mg Furosemide (Lasix Injection -) 40 mg IVPUSH DAILY [facility] Vancomycin HCl 1,250 mg/ (Dextrose) 250 mls @ 166.667 mls/hr IVPB DAILY JON[facility] PRN Reason: Protocol Aztreonam 2 gm/ Dextrose 100 mls @ 200 mls/hr IV Q8H-IV [facility]ONAS PRN Reason: Protocol Last Admin: 12/24/17 01:01 Dose: 200 mls/hr Insulin Aspart (Novolog Vial Sliding Scale -) 1 vial SQ ACHS [facility]ON[facility] PRN Reason: Protocol Last Admin: 12/24/17 06:37 Dose: Not Given Insulin Detemir (Levemir Vial) 20 units SQ AM [facility]ON[facility] Latanoprost (Xalatan 0.005% Eye Drops -) 1 drop OU HS [facility] Last Admin: 12/23/17 21:39 Dose: 1 drop Potassium Chloride (K-Dur -) 40 meq PO DAILY [facility] Last Admin: 12/23/17 17:38 Dose: 40 meq Prednisone (Deltasone -) 20 mg PO DAILY [facility] Timolol Maleate (Timoptic 0.5%) 1 drop OU BID [facility] Last Admin: 12/23/17 21:39 Dose: 1 drop Warfarin Sodium (Coumadin -) 3 mg PO DAILY@1800 [facility] Last Admin: 12/23/17 17:38 Dose: 3 mg - Objective Vital Signs: Vital Signs Temperature 98.4 F 12/24/17 05:12 Pulse Rate 60 12/24/17 05:12 Respiratory Rate 20 12/24/17 05:12 Blood Pressure 148/55 12/24/17 05:12 O2 Sat by Pulse Oximetry (%) 98 12/23/17 21:00 Constitutional: Yes: No Distress, Calm Eyes: Yes: EOM Intact Cardiovascular: Yes: Regular Rate and Rhythm Respiratory: Yes: CTA Bilaterally (clear today with no rales or wheezing) Gastrointestinal: Yes: Soft Edema: Yes Edema: LLE: 1+, RLE: 1+ Neurological: Yes: Alert, Oriented Labs: CBC, BMP 12/24/17 06:10 12/24/17 06:10 INR, PTT INR 1.71 (0.82-1.09) H 12/24/17 06:10 Microbiology Laboratory Tests 12/24/17 12/24/17 12/24/17 06:10 06:10 06:10 WBC 7.9 Hct 28.7 L Plt Count 137 INR 1.71 H Sodium 141 Potassium 4.1 BUN 32 H Creatinine 1.1 H - ....Imaging Cat Scan: Report Reviewed, Image Reviewed EKG: Image Reviewed Assessment/Plan IMP: Anticardiolipin Ab + Suspected connective tissue disorder Acute DVT Bilateral PNA (post-influenza) PAF s/p PPM, prior CVA REC: 1. Lovenox to coumadin for INR goal 2-3 2. Abx as per ID, follow blood cultures 3. Tele x 24 hours and if remains clinically stable with no rhythm issue, transfer to medical floor 4. Resume colchicine. (Recent pleuritis, pericarditis requiring pericardiocentesis)
[2017-12-24] MEDS ORDERED: PT OWN MED DRAWER 7, Y5N ONE ×3 (09:37→21:56)
[2017-12-24] MEDS: INSULIN DETEMIR 100 UNITS/ML MDV SQ SCH (09:42)
[2017-12-24] MEDS: POTASSIUM CHLORIDE TABS 20 MEQ TABLET.ER (FP) PO SCH (09:45)
[2017-12-24] MEDS: VANCOMYCIN 1,250 MG in DEXTROSE 5%-WATER - 250 ML IVPB SCH (09:45)
[2017-12-24] MEDS: ENOXAPARIN NA (PORCINE) 80 MG/0.8 ML DISP.SYRIN SQ SCH ×2 (09:45→21:58)
[2017-12-24] MEDS: COLCHICINE 0.6 MG TABLET (FP) PO SCH ×2 (09:45→21:58)
[2017-12-24] MEDS: FUROSEMIDE 40 MG TABLET (FP) PO SCH (09:46)
[2017-12-24] MEDS: CLOPIDOGREL BISULFATE 75 MG TABLET (FP) PO SCH (09:46)
[2017-12-24] MEDS: TIMOLOL 0.5% OPHTHALMIC SOL 5 ML BOTTLE OU SCH ×2 (09:46→21:59)
[2017-12-24] MEDS: CARVEDILOL 25 MG TABLET (FP) PO SCH ×2 (09:46→21:58)
[2017-12-24] MEDS: DORZOLAMIDE 2% HCL OPHTHALMIC SOLUTION 10 ML BOTTLE OU SCH ×2 (09:46→21:59)
[2017-12-24] MEDS: predniSONE 20 MG TABLET (UD) PO SCH (09:46)
[2017-12-24] MEDS ORDERED: FUROSEMIDE 40 MG/4 ML INJECTABLE VIAL IVPUSH SCH ×2 (10:00)
[2017-12-24] MEDS ORDERED: COLCHICINE 0.6 MG TABLET (FP) PO SCH (10:00)
[2017-12-24] MEDS: ACETAMINOPHEN 325 MG TABLET (FP) PO PRN (11:02)
[2017-12-24] MEDS ORDERED: INSULIN (NOVOLOG) ASPART 100 UNITS/ML 10ML VIAL ONE ×2 (11:28→16:53)
--- NOTE | 2017-12-24 12:06 | PN ---
Progress Note, Physician History of Present Illness: PULMONARY ALERT,STILL CONGESTED,+COUGH - Current Medication List Current Medications: Active Medications Acetaminophen (Tylenol -) 325 mg PO Q6H PRN PRN Reason: PAIN LEVEL 6-10 Last Admin: 12/24/17 11:02 Dose: 325 mg Alprazolam (Xanax -) 0.5 mg PO BID PRN PRN Reason: ANXIETY Atorvastatin Calcium (Lipitor -) 40 mg PO HS [facility] Last Admin: 12/23/17 21:37 Dose: 40 mg Carvedilol (Coreg -) 25 mg PO BID [facility] Last Admin: 12/24/17 09:46 Dose: 25 mg Clopidogrel Bisulfate (Plavix -) 75 mg PO DAILY [facility] Last Admin: 12/24/17 09:46 Dose: 75 mg Colchicine (Colcrys -) 0.6 mg PO BID [facility] Last Admin: 12/24/17 09:45 Dose: 0.6 mg Diltiazem HCl (Cardizem Cd -) 240 mg PO DAILY [facility] Last Admin: 12/24/17 09:46 Dose: 240 mg Dorzolamide HCl (Trusopt 2%) 1 drop OU BID [facility] Last Admin: 12/24/17 09:46 Dose: 1 drop Enoxaparin Sodium (Lovenox -) 70 mg SQ BID [facility] Last Admin: 12/24/17 09:45 Dose: 70 mg Furosemide (Lasix -) 40 mg PO DAILY [facility] Last Admin: 12/24/17 09:46 Dose: 40 mg Vancomycin HCl 1,250 mg/ (Dextrose) 250 mls @ 166.667 mls/hr IVPB DAILY [facility] PRN Reason: Protocol Last Admin: 12/24/17 09:45 Dose: 166.667 mls/hr Aztreonam 2 gm/ Dextrose 100 mls @ 200 mls/hr IV Q8H-IV [facility]ON[facility] PRN Reason: Protocol Last Admin: 12/24/17 09:45 Dose: 200 mls/hr Insulin Aspart (Novolog Vial Sliding Scale -) 1 vial SQ ACHS [facility] PRN Reason: Protocol Last Admin: 12/24/17 06:37 Dose: Not Given Insulin Detemir (Levemir Vial) 20 units SQ AM [facility] Last Admin: 12/24/17 09:42 Dose: Not Given Latanoprost (Xalatan 0.005% Eye Drops -) 1 drop OU HS [facility] Last Admin: 12/23/17 21:39 Dose: 1 drop Potassium Chloride (K-Dur -) 40 meq PO DAILY [facility] Last Admin: 12/24/17 09:45 Dose: 40 meq Prednisone (Deltasone -) 20 mg PO DAILY [facility] Last Admin: 12/24/17 09:46 Dose: 20 mg Timolol Maleate (Timoptic 0.5%) 1 drop OU BID [facility] Last Admin: 12/24/17 09:46 Dose: 1 drop Warfarin Sodium (Coumadin -) 3 mg PO DAILY@1800 [facility] Last Admin: 12/23/17 17:38 Dose: 3 mg - Objective Vital Signs: Vital Signs Temperature 98.1 F 12/24/17 10:00 Pulse Rate 62 12/24/17 10:00 Respiratory Rate 20 12/24/17 10:00 Blood Pressure 145/57 12/24/17 10:00 O2 Sat by Pulse Oximetry (%) 95 12/24/17 10:00 Constitutional: Yes: Well Nourished, Calm Eyes: Yes: WNL HENT: Yes: WNL Neck: Yes: WNL Cardiovascular: Yes: Regular Rate and Rhythm, S1, S2 Respiratory: Yes: Rhonchi (TEE RHONCHI) Gastrointestinal: Yes: Normal Bowel Sounds, Soft Extremities: Yes: WNL Edema: No Labs: CBC, BMP 12/24/17 06:10 12/24/17 06:10 INR, PTT INR 1.71 (0.82-1.09) H 12/24/17 06:10 Assessment/Plan Problem List - Problems (1) DVT (deep venous thrombosis) Code(s): I82.409 - ACUTE EMBOLISM AND THOMBOS UNSP DEEP VN UNSP LOWER EXTREMITY Qualifiers: DVT location: lower extremity Affected thrombotic vein of extremity: popliteal Chronicity: acute Laterality: left Qualified Code(s): I82.432 - Acute embolism and thrombosis of left popliteal vein (2) Afib Code(s): I48.91 - UNSPECIFIED ATRIAL FIBRILLATION Qualifiers: Atrial fibrillation type: paroxysmal Qualified Code(s): I48.0 - Paroxysmal atrial fibrillation (3) Anticardiolipin antibody positive Code(s): R76.8 - OTHER SPECIFIED ABNORMAL IMMUNOLOGICAL FINDINGS IN SERUM (4) CHF (congestive heart failure) Code(s): I50.9 - HEART FAILURE, UNSPECIFIED (5) Diabetes Code(s): E11.9 - TYPE 2 DIABETES MELLITUS WITHOUT COMPLICATIONS Qualifiers: Diabetes mellitus type: type 2 (6) Community Acquired PNA Assessment/Plan Acute LLE DVT PAF s/p PPM H/o CVA HTN Renal artery stenosis CAD (+) anticardiolipin AB (SLE negative, markedly positive MEGHANN) ABX as per ID AC for DVT Local wound care per Surgery O2 as needed to maintain saturation Aspiration precautions DR BAE
--- NOTE | 2017-12-24 13:07 | PN ---
Progress Note (short form) - Note Progress Note: pt seen and examined Now being treated for PNA Doing much better than yesterday Now eating lunch. LE pain much better, able to ambulate to the bathroom O/E: General: NAD HEENT: NCAT Cor: RRR Lungs: CTA b/; Abd: Soft LE: LLE in RADHA wrap, less tenderness Last Vital Signs Temp Pulse Resp BP Pulse Ox 98.1 F 62 20 145/57 95 12/24/17 10:00 12/24/17 10:00 12/24/17 10:00 12/24/17 10:00 12/24/17 10:00 CBC, BMP 12/24/17 06:10 12/24/17 06:10 Current Medications Generic Name Dose Route Start Last Admin Trade Name Freq PRN Reason Stop Dose Admin Acetaminophen 325 mg 12/23/17 15:56 12/24/17 11:02 Tylenol - PO 325 mg Q6H PRN Administration PAIN LEVEL 6-10 Alprazolam 0.5 mg 12/23/17 15:56 Xanax - PO BID PRN ANXIETY Atorvastatin Calcium 40 mg 12/23/17 22:00 12/23/17 21:37 Lipitor - PO 40 mg HS JONAS Administration Carvedilol 25 mg 12/23/17 22:00 12/24/17 09:46 Coreg - PO 25 mg BID JONAS Administration Clopidogrel Bisulfate 75 mg 12/24/17 10:00 12/24/17 09:46 Plavix - PO 75 mg DAILY JONAS Administration Colchicine 0.6 mg 12/24/17 10:00 12/24/17 09:45 Colcrys - PO 0.6 mg BID JONAS Administration Diltiazem HCl 240 mg 12/24/17 10:00 12/24/17 09:46 Cardizem Cd - PO 240 mg DAILY JONAS Administration Dorzolamide HCl 1 drop 12/23/17 22:00 12/24/17 09:46 Trusopt 2% OU 1 drop BID JONAS Administration Enoxaparin Sodium 70 mg 12/23/17 10:05 12/24/17 09:45 Lovenox - SQ 70 mg BID JONAS Administration Furosemide 40 mg 12/24/17 10:00 12/24/17 09:46 Lasix - PO 40 mg DAILY JONAS Administration Vancomycin HCl 1,250 mg/ 250 mls @ 166.667 mls/hr 12/24/17 10:00 12/24/17 09: 45 Dextrose IVPB 166.667 mls/hr DAILY JONAS Administration Protocol Aztreonam 2 gm/ Dextrose 100 mls @ 200 mls/hr 12/23/17 18:00 12/24/17 09:45 IV 200 mls/hr Q8H-IV JONAS Administration Protocol Insulin Aspart 1 vial 12/23/17 16:30 12/24/17 11:30 Novolog Vial Sliding Scale - SQ 6 units ACHS JONAS Administration Protocol Insulin Detemir 20 units 12/24/17 07:00 12/24/17 09:42 Levemir Vial SQ Not Given AM [facility] Latanoprost 1 drop 12/23/17 22:00 12/23/17 21:39 Xalatan 0.005% Eye Drops - OU 1 drop HS JONAS Administration Potassium Chloride 40 meq 12/23/17 16:00 12/24/17 09:45 K-Dur - PO 40 meq DAILY [facility] Administration Prednisone 20 mg 12/24/17 10:00 12/24/17 09:46 Deltasone - PO 20 mg DAILY [facility]ON[facility] Administration Timolol Maleate 1 drop 12/23/17 22:00 12/24/17 09:46 Timoptic 0.5% OU 1 drop BID JONAS Administration Warfarin Sodium 3 mg 12/23/17 18:00 12/23/17 17:38 Coumadin - PO 3 mg DAILY@1800 JONAS Administration new PNA ( Post Influenza) Acute LLE DVT PAF s/p PPM H/o CVA HTN Renal artery stenosis CAD (+) anticardiolipin AB ( markedly positive MEGHANN) Abx per ID Now on Lovenox. with coumadin bridge daily INR
[2017-12-24] MEDS: HYDROXYCHLOROQUINE SO4 200 MG TABLET (FP) PO SCH (17:53)
[2017-12-24] MEDS: ATORVASTATIN CA 40 MG TABLET (FP) PO SCH (21:58)
[2017-12-24] MEDS: LATANOPROST 0.005% OPHTH SOLN 2.5ML BOTTLE OU SCH (21:59)
--- NOTE | 2017-12-24 23:22 | PN ---
Progress Note, Physician History of Present Illness: Pt w/ pain of LLE - Current Medication List Current Medications: Active Medications Acetaminophen (Tylenol -) 325 mg PO Q6H PRN PRN Reason: PAIN LEVEL 6-10 Last Admin: 12/24/17 11:02 Dose: 325 mg Alprazolam (Xanax -) 0.5 mg PO BID PRN PRN Reason: ANXIETY Atorvastatin Calcium (Lipitor -) 40 mg PO HS [facility] Last Admin: 12/24/17 21:58 Dose: 40 mg Carvedilol (Coreg -) 25 mg PO BID [facility] Last Admin: 12/24/17 21:58 Dose: 25 mg Clopidogrel Bisulfate (Plavix -) 75 mg PO DAILY [facility] Last Admin: 12/24/17 09:46 Dose: 75 mg Colchicine (Colcrys -) 0.6 mg PO BID [facility] Last Admin: 12/24/17 21:58 Dose: 0.6 mg Diltiazem HCl (Cardizem Cd -) 240 mg PO DAILY [facility] Last Admin: 12/24/17 09:46 Dose: 240 mg Dorzolamide HCl (Trusopt 2%) 1 drop OU BID [facility] Last Admin: 12/24/17 21:59 Dose: 1 drop Enoxaparin Sodium (Lovenox -) 70 mg SQ BID [facility] Last Admin: 12/24/17 21:58 Dose: 70 mg Furosemide (Lasix -) 40 mg PO DAILY [facility] Last Admin: 12/24/17 09:46 Dose: 40 mg Hydroxychloroquine Sulfate (Plaquenil -) 200 mg PO DAILY [facility] Last Admin: 12/24/17 17:53 Dose: 200 mg Vancomycin HCl 1,250 mg/ (Dextrose) 250 mls @ 166.667 mls/hr IVPB DAILY [facility] PRN Reason: Protocol Last Admin: 12/24/17 09:45 Dose: 166.667 mls/hr Aztreonam 2 gm/ Dextrose 100 mls @ 200 mls/hr IV Q8H-IV JONAS PRN Reason: Protocol Last Admin: 12/24/17 17:00 Dose: 200 mls/hr Insulin Aspart (Novolog Vial Sliding Scale -) 1 vial SQ ACHS [facility] PRN Reason: Protocol Last Admin: 12/24/17 21:59 Dose: 8 units Insulin Detemir (Levemir Vial) 20 units SQ AM [facility] Last Admin: 12/24/17 09:42 Dose: Not Given Latanoprost (Xalatan 0.005% Eye Drops -) 1 drop OU HS [facility] Last Admin: 12/24/17 21:59 Dose: 1 drop Potassium Chloride (K-Dur -) 40 meq PO DAILY [facility] Last Admin: 12/24/17 09:45 Dose: 40 meq Prednisone (Deltasone -) 20 mg PO DAILY [facility] Last Admin: 12/24/17 09:46 Dose: 20 mg Timolol Maleate (Timoptic 0.5%) 1 drop OU BID [facility] Last Admin: 12/24/17 21:59 Dose: 1 drop - Objective Vital Signs: Vital Signs Temperature 98.2 F 12/24/17 20:00 Pulse Rate 62 12/24/17 20:00 Respiratory Rate 18 12/24/17 20:00 Blood Pressure 140/62 12/24/17 20:00 O2 Sat by Pulse Oximetry (%) 98 12/24/17 20:16 HENT: Yes: WNL Neck: Yes: WNL, Supple Cardiovascular: Yes: WNL, Regular Rate and Rhythm Respiratory: Yes: Diminished Gastrointestinal: Yes: WNL, Normal Bowel Sounds, Soft Extremities: Yes: Other ((+) swelling LLE) Labs: CBC, BMP 12/24/17 06:10 12/24/17 06:10 INR, PTT INR 1.71 (0.82-1.09) H 12/24/17 06:10 Problem List - Problems (1) DVT (deep venous thrombosis) Code(s): I82.409 - ACUTE EMBOLISM AND THOMBOS UNSP DEEP VN UNSP LOWER EXTREMITY Qualifiers: DVT location: lower extremity Affected thrombotic vein of extremity: popliteal Chronicity: acute Laterality: left Qualified Code(s): I82.432 - Acute embolism and thrombosis of left popliteal vein (2) Diabetes Code(s): E11.9 - TYPE 2 DIABETES MELLITUS WITHOUT COMPLICATIONS Qualifiers: Diabetes mellitus type: type 2 (3) HLD (hyperlipidemia) Code(s): E78.5 - HYPERLIPIDEMIA, UNSPECIFIED (4) Hypertension Code(s): I10 - ESSENTIAL (PRIMARY) HYPERTENSION Qualifiers: Hypertension type: essential hypertension Qualified Code(s): I10 - Essential (primary) hypertension
[2017-12-25] MEDS: AZTREONAM 2 GM in DEXTROSE 5%-WATER - 100 ML IV SCH ×3 (02:00→18:36)
[2017-12-25] MEDS: INSULIN DETEMIR 100 UNITS/ML MDV SQ SCH ×2 (06:27→08:59)
[2017-12-25] MEDS: INSULIN SLIDING SCALE (NOVOLOG) 1 VIAL SQ SCH ×4 (06:27→21:16)
[2017-12-25 07:13] LABS: BASO % 0.1 % (0-2.0); EOS % 1.5 % (0-4.5); HEMATOCRIT 26.4 % (32.4-45.2); HEMOGLOBIN 8.6 GM/dL (10.7-15.3); LYMPH % 28.4 % (8-40); MCH 28.7 pg (25.7-33.7); MCHC 32.6 g/dl (32.0-36.0); MEAN CELL VOLUME 88.2 fl (80-96); MEAN PLT VOLUME 9.1 fl (7.5-11.1); MONO % 6.5 % (3.8-10.2); NEUT % 63.5 % (42.8-82.8); PLATELET COUNT 118 K/MM3 (134-434); RBC 2.99 M/mm3 (3.60-5.2); RDW 17.2 % (11.6-15.6); WHITE BLOOD COUNT 6.5 K/mm3 (4.0-10.0)
[2017-12-25 07:33] LABS: INR 1.72 (0.82-1.09); PROTHROMBIN TIME (PATIENT) 19.4 SEC (9.98-11.88)
[2017-12-25 07:41] LABS: ANION GAP 7 (8-16); BLOOD UREA NITROGEN 26 mg/dL (7-18); CALCIUM 8.1 mg/dL (8.5-10.1); CHLORIDE 105 mmol/L (98-107); CO2 31 mmol/L (21-32); GLUCOSE,RANDOM 117 mg/dL (74-106); MAGNESIUM 2.3 mg/dL (1.8-2.4); POTASSIUM 4.2 mmol/L (3.5-5.1); SODIUM 143 mmol/L (136-145)
[2017-12-25] MEDS ORDERED: PT OWN MED DRAWER 7, Y5N ONE (08:49)
[2017-12-25] MEDS: COLCHICINE 0.6 MG TABLET (FP) PO SCH ×2 (09:00→21:13)
[2017-12-25] MEDS: CLOPIDOGREL BISULFATE 75 MG TABLET (FP) PO SCH (09:00)
[2017-12-25] MEDS: POTASSIUM CHLORIDE TABS 20 MEQ TABLET.ER (FP) PO SCH (09:00)
[2017-12-25] MEDS: CARVEDILOL 25 MG TABLET (FP) PO SCH ×2 (09:00→21:13)
[2017-12-25] MEDS: predniSONE 20 MG TABLET (UD) PO SCH (09:00)
[2017-12-25] MEDS: FUROSEMIDE 40 MG TABLET (FP) PO SCH (09:00)
[2017-12-25] MEDS: ENOXAPARIN NA (PORCINE) 80 MG/0.8 ML DISP.SYRIN SQ SCH ×2 (09:00→21:14)
[2017-12-25] MEDS: HYDROXYCHLOROQUINE SO4 200 MG TABLET (FP) PO SCH (09:00)
[2017-12-25] MEDS: TIMOLOL 0.5% OPHTHALMIC SOL 5 ML BOTTLE OU SCH ×2 (09:01→21:18)
[2017-12-25] MEDS: VANCOMYCIN 1,250 MG in DEXTROSE 5%-WATER - 250 ML IVPB SCH (09:01)
[2017-12-25] MEDS: DORZOLAMIDE 2% HCL OPHTHALMIC SOLUTION 10 ML BOTTLE OU SCH ×2 (09:01→21:19)
--- NOTE | 2017-12-25 10:02 | PN ---
Progress Note, Physician Chief Complaint: ID Vancomycin Aztreonam - Current Medication List Current Medications: Active Medications Acetaminophen (Tylenol -) 325 mg PO Q6H PRN PRN Reason: PAIN LEVEL 6-10 Last Admin: 12/24/17 11:02 Dose: 325 mg Alprazolam (Xanax -) 0.5 mg PO BID PRN PRN Reason: ANXIETY Atorvastatin Calcium (Lipitor -) 40 mg PO HS [facility] Last Admin: 12/24/17 21:58 Dose: 40 mg Carvedilol (Coreg -) 25 mg PO BID [facility] Last Admin: 12/25/17 09:00 Dose: 25 mg Clopidogrel Bisulfate (Plavix -) 75 mg PO DAILY [facility] Last Admin: 12/25/17 09:00 Dose: 75 mg Colchicine (Colcrys -) 0.6 mg PO BID [facility] Last Admin: 12/25/17 09:00 Dose: 0.6 mg Diltiazem HCl (Cardizem Cd -) 240 mg PO DAILY [facility] Last Admin: 12/25/17 09:00 Dose: 240 mg Dorzolamide HCl (Trusopt 2%) 1 drop OU BID [facility] Last Admin: 12/25/17 09:01 Dose: 1 drop Enoxaparin Sodium (Lovenox -) 70 mg SQ BID [facility] Last Admin: 12/25/17 09:00 Dose: 70 mg Furosemide (Lasix -) 40 mg PO DAILY [facility] Last Admin: 12/25/17 09:00 Dose: 40 mg Hydroxychloroquine Sulfate (Plaquenil -) 200 mg PO DAILY [facility] Last Admin: 12/25/17 09:00 Dose: 200 mg Vancomycin HCl 1,250 mg/ (Dextrose) 250 mls @ 166.667 mls/hr IVPB DAILY [facility] PRN Reason: Protocol Last Admin: 12/25/17 09:01 Dose: 166.667 mls/hr Aztreonam 2 gm/ Dextrose 100 mls @ 200 mls/hr IV Q8H-IV [facility] PRN Reason: Protocol Last Admin: 12/25/17 09:01 Dose: 200 mls/hr Insulin Aspart (Novolog Vial Sliding Scale -) 1 vial SQ ACHS [facility] PRN Reason: Protocol Last Admin: 12/25/17 06:27 Dose: Not Given Insulin Detemir (Levemir Vial) 20 units SQ AM [facility] Last Admin: 12/25/17 08:59 Dose: 10 unit Latanoprost (Xalatan 0.005% Eye Drops -) 1 drop OU HS [facility] Last Admin: 12/24/17 21:59 Dose: 1 drop Potassium Chloride (K-Dur -) 40 meq PO DAILY [facility] Last Admin: 12/25/17 09:00 Dose: 40 meq Prednisone (Deltasone -) 20 mg PO DAILY [facility] Last Admin: 12/25/17 09:00 Dose: 20 mg Timolol Maleate (Timoptic 0.5%) 1 drop OU BID [facility] Last Admin: 12/25/17 09:01 Dose: 1 drop - Objective Vital Signs: Vital Signs Temperature 98.8 F 12/25/17 02:44 Pulse Rate 59 L 12/25/17 06:00 Respiratory Rate 18 12/25/17 06:00 Blood Pressure 141/67 12/25/17 06:00 O2 Sat by Pulse Oximetry (%) 98 12/24/17 20:16 Constitutional: Yes: Well Nourished, No Distress HENT: Yes: WNL, Atraumatic Neck: Yes: WNL, Supple Cardiovascular: Yes: S1, S2 Respiratory: Yes: WNL, Regular, CTA Bilaterally, Rhonchi Gastrointestinal: Yes: WNL, Normal Bowel Sounds, Soft. No: Tenderness Edema: Yes (left leg) Labs: CBC, BMP 12/25/17 06:15 12/25/17 06:15 INR, PTT INR 1.72 (0.82-1.09) H 12/25/17 06:15 Problem List - Problems (1) Bilateral pneumonia Code(s): J18.9 - PNEUMONIA, UNSPECIFIED ORGANISM (2) DVT (deep venous thrombosis) Code(s): I82.409 - ACUTE EMBOLISM AND THOMBOS UNSP DEEP VN UNSP LOWER EXTREMITY Qualifiers: DVT location: lower extremity Affected thrombotic vein of extremity: popliteal Chronicity: acute Laterality: left Qualified Code(s): I82.432 - Acute embolism and thrombosis of left popliteal vein (3) Diabetes Code(s): E11.9 - TYPE 2 DIABETES MELLITUS WITHOUT COMPLICATIONS Qualifiers: Diabetes mellitus type: type 2 Assessment/Plan Microbiology 12/23/17 14:50 Blood - Peripheral Venous Blood Culture - Preliminary NO GROWTH OBTAINED AFTER 24 HOURS, INCUBATION TO CONTINUE FOR 4 DAYS. 12/23/17 14:50 Blood - Peripheral Venous Blood Culture - Preliminary NO GROWTH OBTAINED AFTER 24 HOURS, INCUBATION TO CONTINUE FOR 4 DAYS. Laboratory Tests 12/25/17 12/25/17 06:15 06:15 WBC 6.5 Hgb 8.6 L Hct 26.4 L Plt Count 118 L BUN 26 H Creatinine 1.0 Assessment Post influenza pneumonia DVT left leg Anticardiolipin syndrome Plan Continue current antibiotics as ordered but check trough level Marce EMERSON
[2017-12-25] MEDS: ACETAMINOPHEN 325 MG TABLET (FP) PO PRN ×2 (10:20→22:04)
--- NOTE | 2017-12-25 11:54 | PN ---
Progress Note (short form) - Note Progress Note: Hematology/Oncology Follow-up Note S:Patient says she continues to have pain in the left leg and her ankle feels swollen. Daughter is also on the phone and was speaking with me. I spoke with patient in Yoruba. Last Vital Signs Temp Pulse Resp BP Pulse Ox 98.3 F 60 18 125/68 98 12/25/17 10:00 12/25/17 10:00 12/25/17 10:00 12/25/17 10:00 12/25/17 10:00 PE : AOx3, pleasant s1s2 wnl, CTA (BL) Soft abdomen left leg with bandage and left swollen ankle right leg wnl, no swelling nonfocal neuro exam CBC, BMP 12/25/17 06:15 12/25/17 06:15 Current Medications Generic Name Dose Route Start Last Admin Trade Name Freq PRN Reason Stop Dose Admin Acetaminophen 325 mg 12/23/17 15:56 12/25/17 10:20 Tylenol - PO 325 mg Q6H PRN Administration PAIN LEVEL 6-10 Alprazolam 0.5 mg 12/23/17 15:56 Xanax - PO BID PRN ANXIETY Atorvastatin Calcium 40 mg 12/23/17 22:00 12/24/17 21:58 Lipitor - PO 40 mg HS JONAS Administration Carvedilol 25 mg 12/23/17 22:00 12/25/17 09:00 Coreg - PO 25 mg BID JONAS Administration Clopidogrel Bisulfate 75 mg 12/24/17 10:00 12/25/17 09:00 Plavix - PO 75 mg DAILY JONAS Administration Colchicine 0.6 mg 12/24/17 10:00 12/25/17 09:00 Colcrys - PO 0.6 mg BID JONAS Administration Diltiazem HCl 240 mg 12/24/17 10:00 12/25/17 09:00 Cardizem Cd - PO 240 mg DAILY JONAS Administration Dorzolamide HCl 1 drop 12/23/17 22:00 12/25/17 09:01 Trusopt 2% OU 1 drop BID JONAS Administration Enoxaparin Sodium 70 mg 12/23/17 10:05 12/25/17 09:00 Lovenox - SQ 70 mg BID JONAS Administration Furosemide 40 mg 12/24/17 10:00 12/25/17 09:00 Lasix - PO 40 mg DAILY OJNAS Administration Hydroxychloroquine Sulfate 200 mg 12/24/17 14:45 12/25/17 09:00 Plaquenil - PO 200 mg DAILY JONAS Administration Vancomycin HCl 1,250 mg/ 250 mls @ 166.667 mls/hr 12/24/17 10:00 12/25/17 09: 01 Dextrose IVPB 166.667 mls/hr DAILY JONAS Administration Protocol Aztreonam 2 gm/ Dextrose 100 mls @ 200 mls/hr 12/23/17 18:00 12/25/17 09:01 IV 200 mls/hr Q8H-IV JONAS Administration Protocol Insulin Aspart 1 vial 12/23/17 16:30 12/25/17 11:49 Novolog Vial Sliding Scale - SQ 12 units ACHS JONAS Administration Protocol Insulin Detemir 20 units 12/24/17 07:00 12/25/17 08:59 Levemir Vial SQ 10 unit AM JONAS Administration Latanoprost 1 drop 12/23/17 22:00 12/24/17 21:59 Xalatan 0.005% Eye Drops - OU 1 drop HS JONAS Administration Potassium Chloride 40 meq 12/23/17 16:00 12/25/17 09:00 K-Dur - PO 40 meq DAILY JONAS Administration Prednisone 20 mg 12/24/17 10:00 12/25/17 09:00 Deltasone - PO 20 mg DAILY JONAS Administration Timolol Maleate 1 drop 12/23/17 22:00 12/25/17 09:01 Timoptic 0.5% OU 1 drop BID JONAS Administration A/P : 72 y/o female with + anticardiolipin Ab, new PNA ( Post Influenza), Hx of CVA, renal artery stenosis, HTN and acute LLE DVT. -Check daily INR -continue with full dose Lovenox for now along with coumadin bridge -continue prednisone, plaquenil and colchicine per Rheum recs -Abx for pneumonia per ID recs -will continue to follow closely
--- NOTE | 2017-12-25 12:32 | PN ---
Progress Note, Physician History of Present Illness: seen and examined today in nad. still c/o LLE pain. no overnight events. - Current Medication List Current Medications: Active Medications Acetaminophen (Tylenol -) 325 mg PO Q6H PRN PRN Reason: PAIN LEVEL 6-10 Last Admin: 12/25/17 10:20 Dose: 325 mg Alprazolam (Xanax -) 0.5 mg PO BID PRN PRN Reason: ANXIETY Atorvastatin Calcium (Lipitor -) 40 mg PO HS [facility] Last Admin: 12/24/17 21:58 Dose: 40 mg Carvedilol (Coreg -) 25 mg PO BID [facility] Last Admin: 12/25/17 09:00 Dose: 25 mg Clopidogrel Bisulfate (Plavix -) 75 mg PO DAILY [facility] Last Admin: 12/25/17 09:00 Dose: 75 mg Colchicine (Colcrys -) 0.6 mg PO BID [facility] Last Admin: 12/25/17 09:00 Dose: 0.6 mg Diltiazem HCl (Cardizem Cd -) 240 mg PO DAILY [facility] Last Admin: 12/25/17 09:00 Dose: 240 mg Dorzolamide HCl (Trusopt 2%) 1 drop OU BID [facility] Last Admin: 12/25/17 09:01 Dose: 1 drop Enoxaparin Sodium (Lovenox -) 70 mg SQ BID [facility] Last Admin: 12/25/17 09:00 Dose: 70 mg Furosemide (Lasix -) 40 mg PO DAILY [facility] Last Admin: 12/25/17 09:00 Dose: 40 mg Hydroxychloroquine Sulfate (Plaquenil -) 200 mg PO DAILY [facility] Last Admin: 12/25/17 09:00 Dose: 200 mg Vancomycin HCl 1,250 mg/ (Dextrose) 250 mls @ 166.667 mls/hr IVPB DAILY [facility] PRN Reason: Protocol Last Admin: 12/25/17 09:01 Dose: 166.667 mls/hr Aztreonam 2 gm/ Dextrose 100 mls @ 200 mls/hr IV Q8H-IV JONAS PRN Reason: Protocol Last Admin: 12/25/17 09:01 Dose: 200 mls/hr Insulin Aspart (Novolog Vial Sliding Scale -) 1 vial SQ ACHS JONAS PRN Reason: Protocol Last Admin: 12/25/17 11:49 Dose: 12 units Insulin Detemir (Levemir Vial) 20 units SQ AM [facility] Last Admin: 12/25/17 08:59 Dose: 10 unit Latanoprost (Xalatan 0.005% Eye Drops -) 1 drop OU HS [facility] Last Admin: 12/24/17 21:59 Dose: 1 drop Potassium Chloride (K-Dur -) 40 meq PO DAILY [facility] Last Admin: 12/25/17 09:00 Dose: 40 meq Prednisone (Deltasone -) 20 mg PO DAILY [facility] Last Admin: 12/25/17 09:00 Dose: 20 mg Timolol Maleate (Timoptic 0.5%) 1 drop OU BID [facility] Last Admin: 12/25/17 09:01 Dose: 1 drop - Objective Vital Signs: Vital Signs Temperature 98.3 F 12/25/17 10:00 Pulse Rate 60 12/25/17 10:00 Respiratory Rate 18 12/25/17 10:00 Blood Pressure 125/68 12/25/17 10:00 O2 Sat by Pulse Oximetry (%) 98 12/25/17 10:00 Constitutional: Yes: No Distress, Calm Eyes: Yes: Conjunctiva Clear, EOM Intact, PERRL HENT: Yes: Atraumatic, Normocephalic Neck: Yes: Supple, Trachea Midline Cardiovascular: Yes: Regular Rate and Rhythm, S1, S2. No: Bradycardia, Tachycardia, Pulse Irregular, Bruit, JVD, Gallop, Murmur, Rub, S3, S4, Varicosities Respiratory: Yes: Regular. No: Rales, Rhonchi, Wheezes Gastrointestinal: Yes: Normal Bowel Sounds, Soft. No: Distention, Tenderness Edema: Yes Edema: LLE: Trace Peripheral Pulses WNL: Yes Neurological: Yes: Alert, Oriented Psychiatric: Yes: Alert, Oriented Labs: CBC, BMP 12/25/17 06:15 12/25/17 06:15 INR, PTT INR 1.72 (0.82-1.09) H 12/25/17 06:15 - ....Imaging Chest X-ray: Report Reviewed, Image Reviewed EKG: Report Reviewed, Image Reviewed Other: Report Reviewed, Image Reviewed Assessment/Plan IMP: Anticardiolipin Ab + Suspected connective tissue disorder Acute DVT Bilateral PNA (post-influenza) PAF s/p PPM, prior CVA REC: 1. Decision made to cont tx with Lovenox and to stop coumadin to avoid fluctuating INR 2. Abx as per ID, follow blood cultures 3. Ok to dc tele, no sig arrhythmias 4. Resumed colchicine. (Recent pleuritis, pericarditis requiring pericardiocentesis) 5. Cont po lasix
--- NOTE | 2017-12-25 14:44 | PN ---
Progress Note (short form) - Note Progress Note: Still with pain issues in the LLE. Breathing non-labored. Some cough. Intake & Output 12/22/17 12/23/17 12/24/17 12/25/17 23:59 23:59 23:59 23:59 Intake Total 2569 507 5967 550 Balance 8416 957 5193 550 Weight 168 lb 167 lb 2 oz 168 lb 6.4 oz 158 lb Last Vital Signs Temp Pulse Resp BP Pulse Ox 98.3 F 60 18 125/68 98 12/25/17 10:00 12/25/17 10:00 12/25/17 10:00 12/25/17 10:00 12/25/17 10:00 Active Medications Acetaminophen (Tylenol -) 325 mg PO Q6H PRN PRN Reason: PAIN LEVEL 6-10 Last Admin: 12/25/17 10:20 Dose: 325 mg Alprazolam (Xanax -) 0.5 mg PO BID PRN PRN Reason: ANXIETY Atorvastatin Calcium (Lipitor -) 40 mg PO [facility] Last Admin: 12/24/17 21:58 Dose: 40 mg Carvedilol (Coreg -) 25 mg PO BID [facility] Last Admin: 12/25/17 09:00 Dose: 25 mg Clopidogrel Bisulfate (Plavix -) 75 mg PO DAILY [facility] Last Admin: 12/25/17 09:00 Dose: 75 mg Colchicine (Colcrys -) 0.6 mg PO BID [facility] Last Admin: 12/25/17 09:00 Dose: 0.6 mg Diltiazem HCl (Cardizem Cd -) 240 mg PO DAILY [facility] Last Admin: 12/25/17 09:00 Dose: 240 mg Dorzolamide HCl (Trusopt 2%) 1 drop OU BID [facility] Last Admin: 12/25/17 09:01 Dose: 1 drop Enoxaparin Sodium (Lovenox -) 70 mg SQ BID [facility] Last Admin: 12/25/17 09:00 Dose: 70 mg Furosemide (Lasix -) 40 mg PO DAILY [facility] Last Admin: 12/25/17 09:00 Dose: 40 mg Hydroxychloroquine Sulfate (Plaquenil -) 200 mg PO DAILY [facility] Last Admin: 12/25/17 09:00 Dose: 200 mg Vancomycin HCl 1,250 mg/ (Dextrose) 250 mls @ 166.667 mls/hr IVPB DAILY [facility] PRN Reason: Protocol Last Admin: 12/25/17 09:01 Dose: 166.667 mls/hr Aztreonam 2 gm/ Dextrose 100 mls @ 200 mls/hr IV Q8H-IV JONAS PRN Reason: Protocol Last Admin: 12/25/17 09:01 Dose: 200 mls/hr Insulin Aspart (Novolog Vial Sliding Scale -) 1 vial SQ ACHS JONAS PRN Reason: Protocol Last Admin: 12/25/17 11:49 Dose: 12 units Insulin Detemir (Levemir Vial) 20 units SQ AM [facility] Last Admin: 12/25/17 08:59 Dose: 10 unit Latanoprost (Xalatan 0.005% Eye Drops -) 1 drop OU HS [facility] Last Admin: 12/24/17 21:59 Dose: 1 drop Potassium Chloride (K-Dur -) 40 meq PO DAILY [facility] Last Admin: 12/25/17 09:00 Dose: 40 meq Prednisone (Deltasone -) 20 mg PO DAILY [facility] Last Admin: 12/25/17 09:00 Dose: 20 mg Timolol Maleate (Timoptic 0.5%) 1 drop OU BID [facility] Last Admin: 12/25/17 09:01 Dose: 1 drop Constitutional: Yes: NAD Eyes: Yes: EOM Intact HENT: Yes: Normocephalic Neck: Yes: Trachea Midline Cardiovascular: Yes: Pulse Irregular, S1, S2 Respiratory: Yes: Bilateral rhonchi, no wheezing Gastrointestinal: Yes: Soft, Abdomen, Obese Extremities: Yes: Calf Tenderness Edema: LLE: 3+ Integumentary: Yes: WNL Neurological: Yes: Alert Labs: Laboratory Results - last 24 hr 12/23/17 12/24/17 12/24/17 06:55 16:47 20:56 WBC RBC Hgb Hct MCV MCH MCHC RDW Plt Count MPV Neutrophils % Lymphocytes % Monocytes % Eosinophils % Basophils % PT with INR INR Sodium Potassium Chloride Carbon Dioxide Anion Gap BUN Creatinine POC Glucometer 307 328 Random Glucose Calcium Magnesium Beta Globulins 0.8 TANNER & SPEP Interp Total Protein (TANNER) 4.8 L Albumin (TANNER) 2.4 L Albumin/Globulin (TANNER) 1.1 Zecbb-5-Ggjlbikaa TANNER 0.2 Fhfwg-0-Incediybf TNANER 0.7 Gamma Globulins (TANNER) 0.6 TANNER M-Ace Not observed TANNER Comments IEP IgG 517 L IEP IgA 132 IEP IgM 55 12/25/17 12/25/17 12/25/17 05:45 06:15 06:15 WBC 6.5 RBC 2.99 L Hgb 8.6 L Hct 26.4 L MCV 88.2 MCH 28.7 MCHC 32.6 RDW 17.2 H Plt Count 118 L MPV 9.1 Neutrophils % 63.5 Lymphocytes % 28.4 Monocytes % 6.5 Eosinophils % 1.5 Basophils % 0.1 PT with INR 19.40 H INR 1.72 H Sodium Potassium Chloride Carbon Dioxide Anion Gap BUN Creatinine POC Glucometer 127 Random Glucose Calcium Magnesium Beta Globulins TANNER & SPEP Interp Total Protein (TANNER) Albumin (TANNER) Albumin/Globulin (TANNER) Psjmh-0-Etipjpiii TANNER Rkdxa-3-Bdyzgmudo TANNER Gamma Globulins (TANNER) TANNER M-Ace TANNER Comments IEP IgG IEP IgA IEP IgM 12/25/17 06:15 WBC RBC Hgb Hct MCV MCH MCHC RDW Plt Count MPV Neutrophils % Lymphocytes % Monocytes % Eosinophils % Basophils % PT with INR INR Sodium 143 Potassium 4.2 Chloride 105 Carbon Dioxide 31 Anion Gap 7 L BUN 26 H Creatinine 1.0 POC Glucometer Random Glucose 117 H Calcium 8.1 L Magnesium 2.3 Beta Globulins TANNER & SPEP Interp Total Protein (TANNER) Albumin (TANNER) Albumin/Globulin (TANNER) Iuika-8-Yzsfbptvb TANNER Chfpf-7-Bpgnyzhsi TANNER Gamma Globulins (TANNER) TANNER M-Ace TANNER Comments IEP IgG IEP IgA IEP IgM Problem List - Problems (1) DVT (deep venous thrombosis) Code(s): I82.409 - ACUTE EMBOLISM AND THOMBOS UNSP DEEP VN UNSP LOWER EXTREMITY Qualifiers: DVT location: lower extremity Affected thrombotic vein of extremity: popliteal Chronicity: acute Laterality: left Qualified Code(s): I82.432 - Acute embolism and thrombosis of left popliteal vein (2) Afib Code(s): I48.91 - UNSPECIFIED ATRIAL FIBRILLATION Qualifiers: Atrial fibrillation type: paroxysmal Qualified Code(s): I48.0 - Paroxysmal atrial fibrillation (3) Anticardiolipin antibody positive Code(s): R76.8 - OTHER SPECIFIED ABNORMAL IMMUNOLOGICAL FINDINGS IN SERUM (4) CHF (congestive heart failure) Code(s): I50.9 - HEART FAILURE, UNSPECIFIED (5) Diabetes Code(s): E11.9 - TYPE 2 DIABETES MELLITUS WITHOUT COMPLICATIONS Qualifiers: Diabetes mellitus type: type 2 (6) Community Acquired PNA Assessment/Plan Acute LLE DVT PAF s/p PPM H/o CVA HTN Renal artery stenosis CAD (+) anticardiolipin AB (SLE negative, markedly positive MEGHANN) ABX per ID Follow cultures AC for DVT Local wound care per Surgery O2 as needed to maintain saturation Aspiration precautions Dr Hart
[2017-12-25] MEDS ORDERED: INSULIN (NOVOLOG) ASPART 100 UNITS/ML 10ML VIAL ONE (17:54)
[2017-12-25] MEDS ORDERED: WARFARIN NA 5 MG TABLET (UD) PO SCH (18:00)
[2017-12-25 19:09] LABS: HEMATOCRIT 26.1 % (32.4-45.2); HEMOGLOBIN 8.5 GM/dL (10.7-15.3); MCH 28.9 pg (25.7-33.7); MCHC 32.4 g/dl (32.0-36.0); MEAN PLT VOLUME 9.6 fl (7.5-11.1); PLATELET COUNT 121 K/MM3 (134-434); RBC 2.93 M/mm3 (3.60-5.2); WHITE BLOOD COUNT 5.2 K/mm3 (4.0-10.0)
[2017-12-25] MEDS: ATORVASTATIN CA 40 MG TABLET (FP) PO SCH (21:13)
[2017-12-25] MEDS: LATANOPROST 0.005% OPHTH SOLN 2.5ML BOTTLE OU SCH (21:19)
[2017-12-26] MEDS ORDERED: morphine CARPU-JECT 10 MG/1 ML DISP.SYRIN IVPUSH PRN (01:09)
[2017-12-26] MEDS ORDERED: PT OWN MED DRAWER 7, Y5N ONE ×2 (01:12→17:37)
[2017-12-26] MEDS: AZTREONAM 2 GM in DEXTROSE 5%-WATER - 100 ML IV SCH ×3 (01:13→17:50)
--- NOTE | 2017-12-26 02:40 | PN ---
Progress Note, Physician History of Present Illness: Pt w/ pain of LLE - Current Medication List Current Medications: Active Medications Acetaminophen (Tylenol -) 325 mg PO Q6H PRN PRN Reason: PAIN LEVEL 6-10 Last Admin: 12/25/17 22:04 Dose: 325 mg Alprazolam (Xanax -) 0.5 mg PO BID PRN PRN Reason: ANXIETY Last Admin: 12/25/17 21:47 Dose: 0.5 mg Atorvastatin Calcium (Lipitor -) 40 mg PO HS [facility] Last Admin: 12/25/17 21:13 Dose: 40 mg Carvedilol (Coreg -) 25 mg PO BID [facility] Last Admin: 12/25/17 21:13 Dose: 25 mg Clopidogrel Bisulfate (Plavix -) 75 mg PO DAILY [facility] Last Admin: 12/25/17 09:00 Dose: 75 mg Colchicine (Colcrys -) 0.6 mg PO BID [facility] Last Admin: 12/25/17 21:13 Dose: 0.6 mg Diltiazem HCl (Cardizem Cd -) 240 mg PO DAILY [facility] Last Admin: 12/25/17 09:00 Dose: 240 mg Dorzolamide HCl (Trusopt 2%) 1 drop OU BID [facility] Last Admin: 12/25/17 21:19 Dose: Not Given Enoxaparin Sodium (Lovenox -) 70 mg SQ BID [facility] Last Admin: 12/25/17 21:14 Dose: 70 mg Furosemide (Lasix -) 40 mg PO DAILY [facility] Last Admin: 12/25/17 09:00 Dose: 40 mg Hydroxychloroquine Sulfate (Plaquenil -) 200 mg PO DAILY [facility] Last Admin: 12/25/17 09:00 Dose: 200 mg Vancomycin HCl 1,250 mg/ (Dextrose) 250 mls @ 166.667 mls/hr IVPB DAILY [facility] PRN Reason: Protocol Last Admin: 12/25/17 09:01 Dose: 166.667 mls/hr Aztreonam 2 gm/ Dextrose 100 mls @ 200 mls/hr IV Q8H-IV JONAS PRN Reason: Protocol Last Admin: 12/26/17 01:13 Dose: 200 mls/hr Insulin Aspart (Novolog Vial Sliding Scale -) 1 vial SQ ACHS [facility] PRN Reason: Protocol Last Admin: 12/25/17 21:16 Dose: 10 units Insulin Detemir (Levemir Vial) 20 units SQ AM [facility] Last Admin: 12/25/17 08:59 Dose: 10 unit Latanoprost (Xalatan 0.005% Eye Drops -) 1 drop OU HS [facility] Last Admin: 12/25/17 21:19 Dose: Not Given Morphine Sulfate (Morphine Injection -) 4 mg IVPUSH Q6H PRN PRN Reason: PAIN LEVEL 6-10 Last Admin: 12/26/17 01:13 Dose: 4 mg Potassium Chloride (K-Dur -) 40 meq PO DAILY [facility] Last Admin: 12/25/17 09:00 Dose: 40 meq Prednisone (Deltasone -) 20 mg PO DAILY [facility] Last Admin: 12/25/17 09:00 Dose: 20 mg Timolol Maleate (Timoptic 0.5%) 1 drop OU BID [facility] Last Admin: 12/25/17 21:18 Dose: Not Given Warfarin Sodium (Coumadin -) 5 mg PO DAILY@1800 [facility] Last Admin: 12/25/17 18:20 Dose: Not Given - Objective Vital Signs: Vital Signs Temperature 98.1 F 12/25/17 22:00 Pulse Rate 60 12/25/17 22:00 Respiratory Rate 18 12/25/17 22:00 Blood Pressure 154/56 12/25/17 22:00 O2 Sat by Pulse Oximetry (%) 98 12/25/17 22:00 HENT: Yes: WNL Neck: Yes: WNL, Supple Cardiovascular: Yes: WNL, Regular Rate and Rhythm Respiratory: Yes: Diminished Gastrointestinal: Yes: WNL, Normal Bowel Sounds, Soft Extremities: Yes: Other ((+) swelling LLE) Labs: CBC, BMP 12/25/17 18:40 12/25/17 06:15 INR, PTT INR 1.72 (0.82-1.09) H 12/25/17 06:15 Problem List - Problems (1) DVT (deep venous thrombosis) Code(s): I82.409 - ACUTE EMBOLISM AND THOMBOS UNSP DEEP VN UNSP LOWER EXTREMITY Qualifiers: DVT location: lower extremity Affected thrombotic vein of extremity: popliteal Chronicity: acute Laterality: left Qualified Code(s): I82.432 - Acute embolism and thrombosis of left popliteal vein (2) Diabetes Code(s): E11.9 - TYPE 2 DIABETES MELLITUS WITHOUT COMPLICATIONS Qualifiers: Diabetes mellitus type: type 2 (3) HLD (hyperlipidemia) Code(s): E78.5 - HYPERLIPIDEMIA, UNSPECIFIED (4) Hypertension Code(s): I10 - ESSENTIAL (PRIMARY) HYPERTENSION Qualifiers: Hypertension type: essential hypertension Qualified Code(s): I10 - Essential (primary) hypertension
[2017-12-26] MEDS: INSULIN SLIDING SCALE (NOVOLOG) 1 VIAL SQ SCH ×4 (06:16→22:01)
[2017-12-26] MEDS: INSULIN DETEMIR 100 UNITS/ML MDV SQ SCH ×2 (06:16→10:34)
[2017-12-26 08:02] LABS: BASO % 0.1 % (0-2.0); EOS % 1.3 % (0-4.5); HEMATOCRIT 25.5 % (32.4-45.2); HEMOGLOBIN 8.1 GM/dL (10.7-15.3); LYMPH % 28.5 % (8-40); MCH 28.6 pg (25.7-33.7); MCHC 31.9 g/dl (32.0-36.0); MEAN CELL VOLUME 89.8 fl (80-96); MONO % 6.9 % (3.8-10.2); NEUT % 63.2 % (42.8-82.8); PLATELET COUNT 124 K/MM3 (134-434); RBC 2.85 M/mm3 (3.60-5.2); RDW 17.4 % (11.6-15.6); WHITE BLOOD COUNT 6.3 K/mm3 (4.0-10.0)
[2017-12-26 08:08] LABS: ALBUMIN 2.2 g/dl (3.4-5.0); ANION GAP 5 (8-16); BLOOD UREA NITROGEN 19 mg/dL (7-18); CALCIUM 7.8 mg/dL (8.5-10.1); CHLORIDE 105 mmol/L (98-107); CO2 31 mmol/L (21-32); GLUCOSE,RANDOM 85 mg/dL (74-106); POTASSIUM 4.2 mmol/L (3.5-5.1); SGOT/AST 33 U/L (15-37); SGPT/ALT 50 U/L (12-78); SODIUM 141 mmol/L (136-145)
[2017-12-26 08:10] LABS: ALK PHOS 61 U/L (45-117); BILIRUBIN,TOTAL 0.6 mg/dL (0.2-1.0); CREATININE 0.9 mg/dL (0.55-1.02); TOT PROT 4.8 g/dl (6.4-8.2)
[2017-12-26 08:30] LABS: INR 1.58 (0.82-1.09); PROTHROMBIN TIME (PATIENT) 17.8 SEC (9.98-11.88)
[2017-12-26] MEDS: CARVEDILOL 25 MG TABLET (FP) PO SCH ×2 (10:33→21:58)
[2017-12-26] MEDS: CLOPIDOGREL BISULFATE 75 MG TABLET (FP) PO SCH (10:33)
[2017-12-26] MEDS: COLCHICINE 0.6 MG TABLET (FP) PO SCH ×2 (10:33→21:58)
[2017-12-26] MEDS: FUROSEMIDE 40 MG TABLET (FP) PO SCH (10:33)
[2017-12-26] MEDS: POTASSIUM CHLORIDE TABS 20 MEQ TABLET.ER (FP) PO SCH (10:33)
[2017-12-26] MEDS: ENOXAPARIN NA (PORCINE) 80 MG/0.8 ML DISP.SYRIN SQ SCH ×2 (10:33→21:59)
[2017-12-26] MEDS: predniSONE 20 MG TABLET (UD) PO SCH (10:33)
[2017-12-26] MEDS: VANCOMYCIN 1,250 MG in DEXTROSE 5%-WATER - 250 ML IVPB SCH (10:34)
[2017-12-26] MEDS: HYDROXYCHLOROQUINE SO4 200 MG TABLET (FP) PO SCH (10:35)
[2017-12-26] MEDS: TIMOLOL 0.5% OPHTHALMIC SOL 5 ML BOTTLE OU SCH ×2 (10:36→22:02)
[2017-12-26] MEDS: DORZOLAMIDE 2% HCL OPHTHALMIC SOLUTION 10 ML BOTTLE OU SCH ×2 (10:37→22:03)
--- NOTE | 2017-12-26 11:07 | PN ---
Progress Note (short form) - Note Progress Note: Hematology/Oncology Follow-up Note S:Patient says she continues to have pain in the left leg and her ankle feels swollen. She is worried about when she will get her pills. Last Vital Signs Temp Pulse Resp BP Pulse Ox 97.7 F 60 20 147/65 98 12/26/17 10:27 12/26/17 10:27 12/26/17 10:27 12/26/17 10:27 12/25/17 22:00 PE : AOx3, pleasant s1s2 wnl, CTA (BL) Soft abdomen left leg with bandage and left swollen ankle right leg wnl, no swelling nonfocal neuro exam CBC, BMP 12/26/17 06:25 12/26/17 06:25 Current Medications Generic Name Dose Route Start Last Admin Trade Name Freq PRN Reason Stop Dose Admin Acetaminophen 325 mg 12/23/17 15:56 12/25/17 22:04 Tylenol - PO 325 mg Q6H PRN Administration PAIN LEVEL 6-10 Alprazolam 0.5 mg 12/23/17 15:56 12/25/17 21:47 Xanax - PO 0.5 mg BID PRN Administration ANXIETY Atorvastatin Calcium 40 mg 12/23/17 22:00 12/25/17 21:13 Lipitor - PO 40 mg HS JONAS Administration Carvedilol 25 mg 12/23/17 22:00 12/26/17 10:33 Coreg - PO 25 mg BID JONAS Administration Clopidogrel Bisulfate 75 mg 12/24/17 10:00 12/26/17 10:33 Plavix - PO 75 mg DAILY JONAS Administration Colchicine 0.6 mg 12/24/17 10:00 12/26/17 10:33 Colcrys - PO 0.6 mg BID JONAS Administration Diltiazem HCl 240 mg 12/24/17 10:00 12/26/17 10:33 Cardizem Cd - PO 240 mg DAILY JONAS Administration Dorzolamide HCl 1 drop 12/23/17 22:00 12/26/17 10:37 Trusopt 2% OU 1 drop BID JONAS Administration Enoxaparin Sodium 70 mg 12/23/17 10:05 12/26/17 10:33 Lovenox - SQ 70 mg BID JONAS Administration Furosemide 40 mg 12/24/17 10:00 12/26/17 10:33 Lasix - PO 40 mg DAILY [facility] Administration Hydroxychloroquine Sulfate 200 mg 12/24/17 14:45 12/26/17 10:35 Plaquenil - PO 200 mg DAILY [facility] Administration Vancomycin HCl 1,250 mg/ 250 mls @ 166.667 mls/hr 12/24/17 10:00 12/26/17 10: 34 Dextrose IVPB 166.667 mls/hr DAILY [facility] Administration Protocol Aztreonam 2 gm/ Dextrose 100 mls @ 200 mls/hr 12/23/17 18:00 12/26/17 10:28 IV 200 mls/hr Q8H-IV JONAS Administration Protocol Insulin Aspart 1 vial 12/23/17 16:30 12/26/17 06:16 Novolog Vial Sliding Scale - SQ Not Given ACHS [facility] Protocol Insulin Detemir 20 units 12/24/17 07:00 12/26/17 10:34 Levemir Vial SQ 20 unit AM [facility]ON[facility] Administration Latanoprost 1 drop 12/23/17 22:00 12/25/17 21:19 Xalatan 0.005% Eye Drops - OU Not Given HS [facility] Morphine Sulfate 4 mg 12/26/17 01:09 12/26/17 01:13 Morphine Injection - IVPUSH 4 mg Q6H PRN Administration PAIN LEVEL 6-10 Potassium Chloride 40 meq 12/23/17 16:00 12/26/17 10:33 K-Dur - PO 40 meq DAILY [facility] Administration Prednisone 20 mg 12/24/17 10:00 12/26/17 10:33 Deltasone - PO 20 mg DAILY [facility] Administration Timolol Maleate 1 drop 12/23/17 22:00 12/26/17 10:36 Timoptic 0.5% OU 1 drop BID [facility] Administration Warfarin Sodium 5 mg 12/25/17 18:00 12/25/17 18:20 Coumadin - PO Not Given DAILY@1800 JONAS A/P : 72 y/o female with + anticardiolipin Ab, new PNA ( Post Influenza), Hx of CVA, renal artery stenosis, HTN and acute LLE DVT. -Check daily INR -continue with full dose Lovenox for now along with coumadin bridge, INR is still 1.5 today, will increase dose of coumadin to 6 mg PO daily -continue prednisone, plaquenil and colchicine per Rheum recs -Abx for pneumonia per ID recs -will continue to follow closely
--- NOTE | 2017-12-26 11:30 | PN ---
Progress Note (short form) - Note Progress Note: Still with pain issues in the LLE. Breathing non-labored. Some cough. Intake & Output 12/23/17 12/24/17 12/25/17 12/26/17 23:59 23:59 23:59 23:59 Intake Total 625 1000 550 Balance 625 1000 550 Weight 167 lb 2 oz 168 lb 6.4 oz 158 lb 165 lb 9.6 oz Last Vital Signs Temp Pulse Resp BP Pulse Ox 97.7 F 60 20 147/65 98 12/26/17 10:27 12/26/17 10:27 12/26/17 10:27 12/26/17 10:27 12/25/17 22:00 Active Medications Acetaminophen (Tylenol -) 325 mg PO Q6H PRN PRN Reason: PAIN LEVEL 6-10 Last Admin: 12/25/17 22:04 Dose: 325 mg Alprazolam (Xanax -) 0.5 mg PO BID PRN PRN Reason: ANXIETY Last Admin: 12/25/17 21:47 Dose: 0.5 mg Atorvastatin Calcium (Lipitor -) 40 mg PO HS [facility] Last Admin: 12/25/17 21:13 Dose: 40 mg Carvedilol (Coreg -) 25 mg PO BID [facility] Last Admin: 12/26/17 10:33 Dose: 25 mg Clopidogrel Bisulfate (Plavix -) 75 mg PO DAILY [facility] Last Admin: 12/26/17 10:33 Dose: 75 mg Colchicine (Colcrys -) 0.6 mg PO BID [facility] Last Admin: 12/26/17 10:33 Dose: 0.6 mg Diltiazem HCl (Cardizem Cd -) 240 mg PO DAILY [facility] Last Admin: 12/26/17 10:33 Dose: 240 mg Dorzolamide HCl (Trusopt 2%) 1 drop OU BID [facility] Last Admin: 12/26/17 10:37 Dose: 1 drop Enoxaparin Sodium (Lovenox -) 70 mg SQ BID [facility] Last Admin: 12/26/17 10:33 Dose: 70 mg Furosemide (Lasix -) 40 mg PO DAILY [facility] Last Admin: 12/26/17 10:33 Dose: 40 mg Hydroxychloroquine Sulfate (Plaquenil -) 200 mg PO DAILY [facility] Last Admin: 12/26/17 10:35 Dose: 200 mg Vancomycin HCl 1,250 mg/ (Dextrose) 250 mls @ 166.667 mls/hr IVPB DAILY [facility] PRN Reason: Protocol Last Admin: 12/26/17 10:34 Dose: 166.667 mls/hr Aztreonam 2 gm/ Dextrose 100 mls @ 200 mls/hr IV Q8H-IV [facility] PRN Reason: Protocol Last Admin: 12/26/17 10:28 Dose: 200 mls/hr Insulin Aspart (Novolog Vial Sliding Scale -) 1 vial SQ ACHS [facility] PRN Reason: Protocol Last Admin: 12/26/17 06:16 Dose: Not Given Insulin Detemir (Levemir Vial) 20 units SQ AM [facility] Last Admin: 12/26/17 10:34 Dose: 20 unit Latanoprost (Xalatan 0.005% Eye Drops -) 1 drop OU HS [facility] Last Admin: 12/25/17 21:19 Dose: Not Given Morphine Sulfate (Morphine Injection -) 4 mg IVPUSH Q6H PRN PRN Reason: PAIN LEVEL 6-10 Last Admin: 12/26/17 01:13 Dose: 4 mg Potassium Chloride (K-Dur -) 40 meq PO DAILY [facility] Last Admin: 12/26/17 10:33 Dose: 40 meq Prednisone (Deltasone -) 20 mg PO DAILY [facility] Last Admin: 12/26/17 10:33 Dose: 20 mg Timolol Maleate (Timoptic 0.5%) 1 drop OU BID [facility] Last Admin: 12/26/17 10:36 Dose: 1 drop Warfarin Sodium (Coumadin -) 7.5 mg PO DAILY@1800 [facility] Constitutional: Yes: NAD Eyes: Yes: EOM Intact HENT: Yes: Normocephalic Neck: Yes: Trachea Midline Cardiovascular: Yes: Pulse Irregular, S1, S2 Respiratory: Yes: Bilateral rhonchi, no wheezing Gastrointestinal: Yes: Soft, Abdomen, Obese Extremities: Yes: Calf Tenderness Edema: LLE: 3+ Integumentary: Yes: WNL Neurological: Yes: Alert Labs: Laboratory Results - last 24 hr 12/25/17 12/25/17 12/25/17 14:28 17:12 18:13 WBC RBC Hgb Hct MCV MCH MCHC RDW Plt Count MPV Neutrophils % Lymphocytes % Monocytes % Eosinophils % Basophils % PT with INR INR Sodium Potassium Chloride Carbon Dioxide Anion Gap BUN Creatinine Creat Clearance w eGFR POC Glucometer 258 255 347 Random Glucose Calcium Total Bilirubin AST ALT Alkaline Phosphatase Total Protein Albumin Vancomycin Pre-Dose 12/25/17 12/25/17 12/25/17 18:40 21:12 21:30 WBC 5.2 RBC 2.93 L Hgb 8.5 L Hct 26.1 L MCV 89.0 MCH 28.9 MCHC 32.4 RDW 17.0 H Plt Count 121 L MPV 9.6 Neutrophils % Lymphocytes % Monocytes % Eosinophils % Basophils % PT with INR INR Sodium Potassium Chloride Carbon Dioxide Anion Gap BUN Creatinine Creat Clearance w eGFR POC Glucometer 395 Random Glucose Calcium Total Bilirubin AST ALT Alkaline Phosphatase Total Protein Albumin Vancomycin Pre-Dose 14.819 H 12/26/17 12/26/17 12/26/17 06:14 06:25 06:25 WBC 6.3 RBC 2.85 L Hgb 8.1 L Hct 25.5 L MCV 89.8 MCH 28.6 MCHC 31.9 L RDW 17.4 H Plt Count 124 L MPV 9.0 Neutrophils % 63.2 Lymphocytes % 28.5 Monocytes % 6.9 Eosinophils % 1.3 Basophils % 0.1 PT with INR 17.80 H INR 1.58 H Sodium Potassium Chloride Carbon Dioxide Anion Gap BUN Creatinine Creat Clearance w eGFR POC Glucometer 97 Random Glucose Calcium Total Bilirubin AST ALT Alkaline Phosphatase Total Protein Albumin Vancomycin Pre-Dose 12/26/17 06:25 WBC RBC Hgb Hct MCV MCH MCHC RDW Plt Count MPV Neutrophils % Lymphocytes % Monocytes % Eosinophils % Basophils % PT with INR INR Sodium 141 Potassium 4.2 Chloride 105 Carbon Dioxide 31 Anion Gap 5 L BUN 19 H Creatinine 0.9 Creat Clearance w eGFR > 60 POC Glucometer Random Glucose 85 Calcium 7.8 L Total Bilirubin 0.6 AST 33 ALT 50 Alkaline Phosphatase 61 Total Protein 4.8 L Albumin 2.2 L Vancomycin Pre-Dose Problem List - Problems (1) DVT (deep venous thrombosis) Code(s): I82.409 - ACUTE EMBOLISM AND THOMBOS UNSP DEEP VN UNSP LOWER EXTREMITY Qualifiers: DVT location: lower extremity Affected thrombotic vein of extremity: popliteal Chronicity: acute Laterality: left Qualified Code(s): I82.432 - Acute embolism and thrombosis of left popliteal vein (2) Afib Code(s): I48.91 - UNSPECIFIED ATRIAL FIBRILLATION Qualifiers: Atrial fibrillation type: paroxysmal Qualified Code(s): I48.0 - Paroxysmal atrial fibrillation (3) Anticardiolipin antibody positive Code(s): R76.8 - OTHER SPECIFIED ABNORMAL IMMUNOLOGICAL FINDINGS IN SERUM (4) CHF (congestive heart failure) Code(s): I50.9 - HEART FAILURE, UNSPECIFIED (5) Diabetes Code(s): E11.9 - TYPE 2 DIABETES MELLITUS WITHOUT COMPLICATIONS Qualifiers: Diabetes mellitus type: type 2 (6) Community Acquired PNA Assessment/Plan Acute LLE DVT PAF s/p PPM H/o CVA HTN Renal artery stenosis CAD (+) anticardiolipin AB (SLE negative, markedly positive MEGHANN) ABX per ID Pain control Follow cultures AC for DVT Local wound care per Surgery O2 as needed to maintain saturation Aspiration precautions Dr Hart
--- NOTE | 2017-12-26 13:28 | PN ---
Progress Note, Physician History of Present Illness: seen and examined today in nad. continued LLE pain overnight, improved with pain medication. currently mild LLE pain. - Current Medication List Current Medications: Active Medications Acetaminophen (Tylenol -) 325 mg PO Q6H PRN PRN Reason: PAIN LEVEL 6-10 Last Admin: 12/25/17 22:04 Dose: 325 mg Alprazolam (Xanax -) 0.5 mg PO BID PRN PRN Reason: ANXIETY Last Admin: 12/25/17 21:47 Dose: 0.5 mg Atorvastatin Calcium (Lipitor -) 40 mg PO HS [facility] Last Admin: 12/25/17 21:13 Dose: 40 mg Carvedilol (Coreg -) 25 mg PO BID [facility] Last Admin: 12/26/17 10:33 Dose: 25 mg Clopidogrel Bisulfate (Plavix -) 75 mg PO DAILY [facility] Last Admin: 12/26/17 10:33 Dose: 75 mg Colchicine (Colcrys -) 0.6 mg PO BID [facility] Last Admin: 12/26/17 10:33 Dose: 0.6 mg Diltiazem HCl (Cardizem Cd -) 240 mg PO DAILY [facility] Last Admin: 12/26/17 10:33 Dose: 240 mg Dorzolamide HCl (Trusopt 2%) 1 drop OU BID [facility] Last Admin: 12/26/17 10:37 Dose: 1 drop Enoxaparin Sodium (Lovenox -) 70 mg SQ BID [facility] Last Admin: 12/26/17 10:33 Dose: 70 mg Furosemide (Lasix -) 40 mg PO DAILY [facility] Last Admin: 12/26/17 10:33 Dose: 40 mg Hydroxychloroquine Sulfate (Plaquenil -) 200 mg PO DAILY [facility] Last Admin: 12/26/17 10:35 Dose: 200 mg Vancomycin HCl 1,250 mg/ (Dextrose) 250 mls @ 166.667 mls/hr IVPB DAILY [facility] PRN Reason: Protocol Last Admin: 12/26/17 10:34 Dose: 166.667 mls/hr Aztreonam 2 gm/ Dextrose 100 mls @ 200 mls/hr IV Q8H-IV [facility] PRN Reason: Protocol Last Admin: 12/26/17 10:28 Dose: 200 mls/hr Insulin Aspart (Novolog Vial Sliding Scale -) 1 vial SQ ACHS [facility] PRN Reason: Protocol Last Admin: 12/26/17 12:20 Dose: 6 units Insulin Detemir (Levemir Vial) 20 units SQ AM [facility] Last Admin: 12/26/17 10:34 Dose: 20 unit Latanoprost (Xalatan 0.005% Eye Drops -) 1 drop OU HS [facility] Last Admin: 12/25/17 21:19 Dose: Not Given Morphine Sulfate (Morphine Injection -) 4 mg IVPUSH Q6H PRN PRN Reason: PAIN LEVEL 6-10 Last Admin: 12/26/17 01:13 Dose: 4 mg Potassium Chloride (K-Dur -) 40 meq PO DAILY [facility] Last Admin: 12/26/17 10:33 Dose: 40 meq Prednisone (Deltasone -) 20 mg PO DAILY [facility] Last Admin: 12/26/17 10:33 Dose: 20 mg Timolol Maleate (Timoptic 0.5%) 1 drop OU BID [facility] Last Admin: 12/26/17 10:36 Dose: 1 drop Warfarin Sodium (Coumadin -) 7.5 mg PO DAILY@1800 [facility] - Objective Vital Signs: Vital Signs Temperature 97.7 F 12/26/17 10:27 Pulse Rate 60 12/26/17 10:27 Respiratory Rate 20 12/26/17 10:27 Blood Pressure 147/65 12/26/17 10:27 O2 Sat by Pulse Oximetry (%) 98 12/25/17 22:00 Constitutional: Yes: No Distress, Calm Eyes: Yes: Conjunctiva Clear, EOM Intact, PERRL HENT: Yes: Atraumatic, Normocephalic Neck: Yes: Supple, Trachea Midline Cardiovascular: Yes: Regular Rate and Rhythm, S1, S2. No: Bradycardia, Tachycardia, Pulse Irregular, Bruit, JVD, Gallop, Murmur, Rub, S3, S4, Varicosities Respiratory: Yes: Regular, CTA Bilaterally. No: Rales, Rhonchi, Wheezes Gastrointestinal: Yes: Normal Bowel Sounds, Soft. No: Distention, Tenderness Edema: Yes Edema: LLE: 1+ Neurological: Yes: Alert, Oriented Psychiatric: Yes: Alert, Oriented Labs: CBC, BMP 12/26/17 06:25 12/26/17 06:25 INR, PTT INR 1.58 (0.82-1.09) H 12/26/17 06:25 - ....Imaging Chest X-ray: Report Reviewed, Image Reviewed EKG: Report Reviewed, Image Reviewed Other: Report Reviewed, Image Reviewed Assessment/Plan IMP: Anticardiolipin Ab + Suspected connective tissue disorder Acute DVT Bilateral PNA (post-influenza) PAF s/p PPM, prior CVA REC: 1. Need to clarify plan with either Lovenox along or bridging to coumadin, currently on Lovenox bridge to coumadin 2. Abx as per ID, follow blood cultures 3. No longer on tele, no sig arrhythmias when on tele 4. Cont colchicine. (Recent pleuritis, pericarditis requiring pericardiocentesis ) 5. Cont po lasix
--- NOTE | 2017-12-26 17:26 | CONSULT ---
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 HPI. The patient was admitted on 09/23/17 with chest pain, she had a positive stress test with myoview and was transferred to [facility] for cardiac cath - apparently normal. Apparently during that admission she developed fever, pericarditis and pleuritis requiring pericardiocenthesis and pleurocenthesis. She was treated with Prednisone 20 mg/d that was tapered down and DC. After 2 weeks she had relapse of pericardtitis, she was seen by a emergency department clinician at [facility] (Dr. Gorman [phone]). Laboratory work-up apparently reported with positive MEGHANN and anticardiolipin antibody and negative lupus anticoagulant. I do not have information of other serology. She was started on Prednisone 20 mg BID, Colchicine 0.6 mg/d and Hydroxychloroquine. On 12/11/17 the patient was admitted with Influenza B and at the present time she was admitted with pain and swelling of the leg. Recently SOB with exertion. 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 On admission she was diagnosed with acute DVT in the left leg. CAT of the chest reported with patchy infiltrates in lower lobes R>L and RUL. NO PE. Echocardiogram: decreased LV systolic funtion, global hypokinesia of the LV, no pericardital effusion. During this admission she has not have fever, she has mild SOB and continues having pain and swelling in the left leg where she also had a hematoma localized to the right ankle. Labs: Creatinine 0.9, LFT normal, albumin 2.2, UA with glucose 2+ and no blood or protein. MEGHANN 1:640 with homogeneous pattern, No M spike. During this admission she has not have fever. Cultures negative. 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 Cardio/Vascular: Yes: AFIB, HTN, Hyperlipdemia, Other (pericarditis Pericardial effusion) Renal/: Yes: Other (Renal artery stenosis) ...: No Endocrine: Yes: Diabetes Mellitus - Past Surgical History Past Surgical History: Yes: Permanent Pacemaker - Alcohol/Substance Use Hx Alcohol Use: No - Smoking History Smoking history: Never smoked Have you smoked in the past 12 months: No Aproximately how many cigarettes per day: 5 If you are a former smoker, when did you quit?: 1993 - Social History ADL: Family Assistance History of Recent Travel: No Home Medications - Allergies Allergies/Adverse Reactions: Allergies Allergy/AdvReac Type Severity Reaction Status Date / Time aspirin Allergy Severe Verified 12/21/17 10:14 Penicillins Allergy Severe Verified 12/21/17 10:14 diclofenac Allergy Verified 12/21/17 10:14 shellfish derived Allergy Verified 12/21/17 10:14 lactose AdvReac Verified 12/21/17 10:14 iv contrast Allergy Uncoded 12/21/17 10:14 - Home Medications Home Medications: Ambulatory Orders Atorvastatin Ca [Lipitor] 40 mg PO HS 10/09/17 Clopidogrel Bisulfate [Plavix -] 75 mg PO DAILY 10/09/17 Colchicine 0.6 mg PO BID 10/09/17 Diltiazem HCl [Diltiazem 24Hr Cd] 240 mg PO DAILY 10/09/17 Metoclopramide HCl [Reglan] 5 mg PO DAILY PRN 10/09/17 Furosemide [Lasix -] 40 mg PO DAILY 12/11/17 Insulin Aspart [Novolog Flexpen] 0 unit SQ PRN 12/11/17 Insulin Glargine,Hum.rec.anlog [Lantus] 20 unit SQ AM 12/11/17 Linagliptin/Metformin HCl [Jentadueto 2.5 mg-500 mg Tab] 1 each PO BIDAC predniSONE [Deltasone -] 20 mg PO BID 12/11/17 Alprazolam [Xanax] 0.5 mg PO BID PRN 12/12/17 Ubidecarenone [Coq-10] 200 mg PO DAILY 12/12/17 Carvedilol [Coreg -] 25 mg PO BID tablet 12/13/17 Dorzolamide HCl [Trusopt 2% -] 1 drop OU BID drops 12/13/17 Latanoprost 0.005% Eye Drops [Xalatan 0.005% Eye Drops -] 1 drop OU HS drops Timolol 0.5% [Timoptic 0.5%] 1 drop OU BID drops 12/13/17 Warfarin Na [Coumadin -] 1 mg PO Q2D 12/21/17 Warfarin Sodium [Coumadin] 2 mg PO Q2D 12/21/17 Review of Systems - Review of Systems Respiratory: reports: SOB Musculoskeletal: reports: No Symptoms Integumentary: reports: No Symptoms Neurological: reports: Pre-Existing Deficit Physical Exam Vital Signs: Vital Signs Temperature 98.2 F 12/26/17 14:51 Pulse Rate 63 12/26/17 14:51 Respiratory Rate 20 12/26/17 14:51 Blood Pressure 125/57 12/26/17 14:51 O2 Sat by Pulse Oximetry (%) 98 12/25/17 22:00 Constitutional: Yes: Mild Distress Eyes: Yes: WNL HENT: Yes: WNL Neck: Yes: WNL Cardiovascular: Yes: WNL Respiratory: Yes: WNL Gastrointestinal: Yes: WNL Musculoskeletal: Yes: Other (No active joints. Tenderness and swelling of the left leg distal to the knee.) Integumentary: Yes: WNL Labs: CBC, BMP 12/26/17 06:25 12/26/17 06:25 Laboratory Tests 12/22/17 12/22/17 12/23/17 06:52 06:52 06:55 INR 4.02 H* AST Alkaline Phosphatase Total Protein Albumin Urine Color Urine Appearance Urine pH Ur Specific [place] Urine Protein Urine Glucose (UA) Urine Ketones Urine Blood Urine Nitrite Urine Bilirubin Urine Urobilinogen Ur Leukocyte Esterase Urine WBC (Auto) Urine RBC (Auto) TANNER M-Ace Not observed MEGHANN Homogeneous Pattern 1:640 H 12/24/17 12/26/17 12/26/17 02:46 06:25 06:25 INR 1.58 H AST 33 Alkaline Phosphatase 61 Total Protein 4.8 L Albumin 2.2 L Urine Color Straw Urine Appearance Clear Urine pH 6.0 Ur Specific [place] 1.033 Urine Protein Negative Urine Glucose (UA) 2+ H Urine Ketones Negative Urine Blood Negative Urine Nitrite Negative Urine Bilirubin Negative Urine Urobilinogen Negative Ur Leukocyte Esterase Trace Urine WBC (Auto) 3 Urine RBC (Auto) 2 TAN[place] M-Ace MEGHANN Homogeneous Pattern Problem List - Problems (1) Lupus (systemic lupus erythematosus) Assessment/Plan: Possible antiphospholipid syndrome with history of anticadiolipin antibody ( Lupus anticoagulant negative) and admitted with DVT. Two months ago she had an episode of fever, pleuritis and pericarditis, however the patient also has significant CHF and at the present time she does not have serositis. She has positive MEGHANN and I do not have results of other serology. Creatinine and urinary sediment are normal. No evidence of other organ involvement. In summary, It is possible that the patient has lupus with anti-phospholipid syndrome, however the diagnosis is not definitive. I need to obtain previous serology and complement. The patient is on Prednisone 20 mg/d, Colchicine 0.6 mg/d and Hydroxychloroquine 200 mg/d. For the present time continue with the same medications. I will contact her emergency department clinician. Code(s): M32.9 - SYSTEMIC LUPUS ERYTHEMATOSUS, UNSPECIFIED (2) Antiphospholipid antibody syndrome Code(s): D68.61 - ANTIPHOSPHOLIPID SYNDROME
[2017-12-26] MEDS ORDERED: INSULIN (NOVOLOG) ASPART 100 UNITS/ML 10ML VIAL SQ ONE (18:00)
[2017-12-26] MEDS ORDERED: WARFARIN NA 7.5 MG TABLET (FP) PO SCH (18:00)
[2017-12-26] MEDS: ATORVASTATIN CA 40 MG TABLET (FP) PO SCH (21:58)
[2017-12-26] MEDS: LATANOPROST 0.005% OPHTH SOLN 2.5ML BOTTLE OU SCH (22:02)
[2017-12-26] MEDS: ACETAMINOPHEN 325 MG TABLET (FP) PO PRN (22:07)
--- NOTE | 2017-12-26 22:59 | PN ---
Progress Note, Physician History of Present Illness: Pt w/ pain of LLE - Current Medication List Current Medications: Active Medications Acetaminophen (Tylenol -) 325 mg PO Q6H PRN PRN Reason: PAIN LEVEL 6-10 Last Admin: 12/26/17 22:07 Dose: 325 mg Atorvastatin Calcium (Lipitor -) 40 mg PO HS [facility] Last Admin: 12/26/17 21:58 Dose: 40 mg Carvedilol (Coreg -) 25 mg PO BID [facility] Last Admin: 12/26/17 21:58 Dose: 25 mg Clopidogrel Bisulfate (Plavix -) 75 mg PO DAILY [facility] Last Admin: 12/26/17 10:33 Dose: 75 mg Colchicine (Colcrys -) 0.6 mg PO BID [facility] Last Admin: 12/26/17 21:58 Dose: 0.6 mg Diltiazem HCl (Cardizem Cd -) 240 mg PO DAILY [facility] Last Admin: 12/26/17 10:33 Dose: 240 mg Dorzolamide HCl (Trusopt 2%) 1 drop OU BID [facility] Last Admin: 12/26/17 22:03 Dose: 1 drop Enoxaparin Sodium (Lovenox -) 70 mg SQ BID [facility] Last Admin: 12/26/17 21:59 Dose: 70 mg Furosemide (Lasix -) 40 mg PO DAILY [facility] Last Admin: 12/26/17 10:33 Dose: 40 mg Hydroxychloroquine Sulfate (Plaquenil -) 200 mg PO DAILY [facility] Last Admin: 12/26/17 10:35 Dose: 200 mg Vancomycin HCl 1,250 mg/ (Dextrose) 250 mls @ 166.667 mls/hr IVPB DAILY [facility] PRN Reason: Protocol Last Admin: 12/26/17 10:34 Dose: 166.667 mls/hr Aztreonam 2 gm/ Dextrose 100 mls @ 200 mls/hr IV Q8H-IV [facility] PRN Reason: Protocol Last Admin: 12/26/17 17:50 Dose: 200 mls/hr Insulin Aspart (Novolog Vial Sliding Scale -) 1 vial SQ ACHS [facility] PRN Reason: Protocol Last Admin: 12/26/17 22:01 Dose: 6 units Insulin Detemir (Levemir Vial) 20 units SQ AM [facility] Last Admin: 12/26/17 10:34 Dose: 20 unit Latanoprost (Xalatan 0.005% Eye Drops -) 1 drop OU HS [facility] Last Admin: 12/26/17 22:02 Dose: 1 drop Morphine Sulfate (Morphine Injection -) 4 mg IVPUSH Q6H PRN PRN Reason: PAIN LEVEL 6-10 Potassium Chloride (K-Dur -) 40 meq PO DAILY [facility] Last Admin: 12/26/17 10:33 Dose: 40 meq Prednisone (Deltasone -) 20 mg PO DAILY [facility] Last Admin: 12/26/17 10:33 Dose: 20 mg Timolol Maleate (Timoptic 0.5%) 1 drop OU BID [facility] Last Admin: 12/26/17 22:02 Dose: 1 drop Warfarin Sodium (Coumadin -) 7.5 mg PO DAILY@1800 [facility] Last Admin: 12/26/17 17:50 Dose: 7.5 mg - Objective Vital Signs: Vital Signs Temperature 98.2 F 12/26/17 14:51 Pulse Rate 63 12/26/17 14:51 Respiratory Rate 20 12/26/17 20:24 Blood Pressure 125/57 12/26/17 14:51 O2 Sat by Pulse Oximetry (%) 96 12/26/17 20:24 Cardiovascular: Yes: WNL, Regular Rate and Rhythm Respiratory: Yes: WNL, Regular, CTA Bilaterally Gastrointestinal: Yes: WNL, Normal Bowel Sounds, Soft Edema: LLE: 1+ Labs: CBC, BMP 12/26/17 06:25 12/26/17 06:25 INR, PTT INR 1.58 (0.82-1.09) H 12/26/17 06:25 Problem List - Problems (1) DVT (deep venous thrombosis) Assessment/Plan: Pt is on lovenox Code(s): I82.409 - ACUTE EMBOLISM AND THOMBOS UNSP DEEP VN UNSP LOWER EXTREMITY Qualifiers: DVT location: lower extremity Affected thrombotic vein of extremity: popliteal Chronicity: acute Laterality: left Qualified Code(s): I82.432 - Acute embolism and thrombosis of left popliteal vein (2) Pneumonia Assessment/Plan: Cont IV antibxs Code(s): J18.9 - PNEUMONIA, UNSPECIFIED ORGANISM (3) Diabetes Code(s): E11.9 - TYPE 2 DIABETES MELLITUS WITHOUT COMPLICATIONS Qualifiers: Diabetes mellitus type: type 2 (4) HLD (hyperlipidemia) Code(s): E78.5 - HYPERLIPIDEMIA, UNSPECIFIED (5) Hypertension Code(s): I10 - ESSENTIAL (PRIMARY) HYPERTENSION Qualifiers: Hypertension type: essential hypertension Qualified Code(s): I10 - Essential (primary) hypertension
[2017-12-27] MEDS: MORPHINE SULFATE 10 MG/1 ML *VIAL IVPUSH PRN ×3 (01:07→23:01)
[2017-12-27] MEDS: AZTREONAM 2 GM in DEXTROSE 5%-WATER - 100 ML IV SCH ×3 (01:10→19:04)
[2017-12-27] MEDS: INSULIN SLIDING SCALE (NOVOLOG) 1 VIAL SQ SCH ×4 (06:15→21:30)
[2017-12-27] MEDS: INSULIN DETEMIR 100 UNITS/ML MDV SQ SCH (07:07)
[2017-12-27] MEDS ORDERED: INSULIN (NOVOLOG) ASPART 100 UNITS/ML 10ML VIAL ONE (07:46)
[2017-12-27] MEDS ORDERED: INSULIN DETEMIR 100 UNITS/ML MDV SQ ONE (07:46)
[2017-12-27 10:01] LABS: BASO % 0.3 % (0-2.0); EOS % 1.6 % (0-4.5); HEMATOCRIT 23.9 % (32.4-45.2); HEMOGLOBIN 7.6 GM/dL (10.7-15.3); LYMPH % 32.3 % (8-40); MCH 28.8 pg (25.7-33.7); MCHC 31.9 g/dl (32.0-36.0); MEAN CELL VOLUME 90.5 fl (80-96); MEAN PLT VOLUME 8.3 fl (7.5-11.1); MONO % 6.9 % (3.8-10.2); NEUT % 58.9 % (42.8-82.8); PLATELET COUNT 120 K/MM3 (134-434); RBC 2.64 M/mm3 (3.60-5.2); RDW 17.2 % (11.6-15.6); WHITE BLOOD COUNT 5.9 K/mm3 (4.0-10.0)
[2017-12-27 10:31] LABS: ALBUMIN 2.1 g/dl (3.4-5.0); ALK PHOS 68 U/L (45-117); ANION GAP 5 (8-16); BILIRUBIN,TOTAL 0.4 mg/dL (0.2-1.0); BLOOD UREA NITROGEN 20 mg/dL (7-18); CALCIUM 7.7 mg/dL (8.5-10.1); CHLORIDE 109 mmol/L (98-107); CO2 29 mmol/L (21-32); GLUCOSE,RANDOM 60 mg/dL (74-106); POTASSIUM 4.1 mmol/L (3.5-5.1); SGOT/AST 85 U/L (15-37); SGPT/ALT 116 U/L (12-78); SODIUM 143 mmol/L (136-145); TOT PROT 4.8 g/dl (6.4-8.2)
[2017-12-27 10:33] LABS: INR 1.51 (0.82-1.09); PROTHROMBIN TIME (PATIENT) 17.1 SEC (9.98-11.88)
[2017-12-27] MEDS: COLCHICINE 0.6 MG TABLET (FP) PO SCH ×2 (10:52→21:27)
[2017-12-27] MEDS: FUROSEMIDE 40 MG TABLET (FP) PO SCH (10:52)
[2017-12-27] MEDS: CARVEDILOL 25 MG TABLET (FP) PO SCH ×2 (10:52→21:27)
[2017-12-27] MEDS: CLOPIDOGREL BISULFATE 75 MG TABLET (FP) PO SCH (10:52)
[2017-12-27] MEDS: predniSONE 20 MG TABLET (UD) PO SCH (10:52)
[2017-12-27] MEDS: POTASSIUM CHLORIDE TABS 20 MEQ TABLET.ER (FP) PO SCH (10:52)
[2017-12-27] MEDS: ENOXAPARIN NA (PORCINE) 80 MG/0.8 ML DISP.SYRIN SQ SCH ×2 (10:53→21:30)
[2017-12-27] MEDS: TIMOLOL 0.5% OPHTHALMIC SOL 5 ML BOTTLE OU SCH ×2 (10:54→21:26)
[2017-12-27] MEDS: DORZOLAMIDE 2% HCL OPHTHALMIC SOLUTION 10 ML BOTTLE OU SCH ×2 (10:54→21:26)
[2017-12-27] MEDS: HYDROXYCHLOROQUINE SO4 200 MG TABLET (FP) PO SCH (10:54)
[2017-12-27] MEDS: VANCOMYCIN 1,250 MG in DEXTROSE 5%-WATER - 250 ML IVPB SCH (10:56)
--- NOTE | 2017-12-27 14:49 | PN ---
Progress Note (short form) - Note Progress Note: pt seen and examined New events over the last 48hrs; drop in hematocrit Platelets stable Worsening pain and echymmoses in the LLE. Seen by Rheumatology Seen and examined Discussed in detail with the daughters O/E: General: NAD HEENT: NCAT Cor: RRR Lungs: CTA b/; Abd: Soft LE: +tenderness, +echymosses., +swelling Last Vital Signs Temp Pulse Resp BP Pulse Ox 98.2 F 60 18 151/65 96 12/27/17 10:51 12/27/17 10:51 12/27/17 10:51 12/27/17 10:51 12/26/17 20:24 CBC, BMP 12/27/17 09:52 12/27/17 09:52 Current Medications Generic Name Dose Route Start Last Admin Trade Name Freq PRN Reason Stop Dose Admin Acetaminophen 325 mg 12/23/17 15:56 12/26/17 22:07 Tylenol - PO 325 mg Q6H PRN Administration PAIN LEVEL 6-10 Atorvastatin Calcium 40 mg 12/23/17 22:00 12/26/17 21:58 Lipitor - PO 40 mg HS JONAS Administration Carvedilol 25 mg 12/23/17 22:00 12/27/17 10:52 Coreg - PO 25 mg BID JONAS Administration Clopidogrel Bisulfate 75 mg 12/24/17 10:00 12/27/17 10:52 Plavix - PO 75 mg DAILY JONAS Administration Colchicine 0.6 mg 12/24/17 10:00 12/27/17 10:52 Colcrys - PO 0.6 mg BID JONAS Administration Diltiazem HCl 240 mg 12/24/17 10:00 12/27/17 10:52 Cardizem Cd - PO 240 mg DAILY JONAS Administration Dorzolamide HCl 1 drop 12/23/17 22:00 12/27/17 10:54 Trusopt 2% OU 1 drop BID JONAS Administration Enoxaparin Sodium 70 mg 12/23/17 10:05 12/27/17 10:53 Lovenox - SQ 70 mg BID JONAS Administration Furosemide 40 mg 12/24/17 10:00 12/27/17 10:52 Lasix - PO 40 mg DAILY JONAS Administration Hydroxychloroquine Sulfate 200 mg 12/24/17 14:45 12/27/17 10:54 Plaquenil - PO 200 mg DAILY JONAS Administration Vancomycin HCl 1,250 mg/ 250 mls @ 166.667 mls/hr 12/24/17 10:00 12/27/17 10: 56 Dextrose IVPB 166.667 mls/hr DAILY JONAS Administration Protocol Aztreonam 2 gm/ Dextrose 100 mls @ 200 mls/hr 12/23/17 18:00 12/27/17 10:51 IV 200 mls/hr Q8H-IV JONAS Administration Protocol Insulin Aspart 1 vial 12/23/17 16:30 12/27/17 06:15 Novolog Vial Sliding Scale - SQ Not Given ACHS JONAS Protocol Insulin Detemir 20 units 12/24/17 07:00 12/27/17 07:07 Levemir Vial SQ 20 unit AM JONAS Administration Latanoprost 1 drop 12/23/17 22:00 12/26/17 22:02 Xalatan 0.005% Eye Drops - OU 1 drop HS JONAS Administration Morphine Sulfate 4 mg 12/26/17 21:08 12/27/17 08:23 Morphine Injection - IVPUSH 4 mg Q6H PRN Administration PAIN LEVEL 6-10 Potassium Chloride 40 meq 12/23/17 16:00 12/27/17 10:52 K-Dur - PO 40 meq DAILY JONAS Administration Prednisone 20 mg 12/24/17 10:00 12/27/17 10:52 Deltasone - PO 20 mg DAILY JONAS Administration Timolol Maleate 1 drop 12/23/17 22:00 12/27/17 10:54 Timoptic 0.5% OU 1 drop BID JONAS Administration NEW hematoma with worsening LLE pain PNA ( Post Influenza) Acute LLE DVT Mild thrombocytopenia PAF s/p PPM H/o CVA HTN Renal artery stenosis CAD APLS ( as per outside verbal report) A challenging clinical situation in the setting of a very hypercoagulable state and now a new onset hematoma , discussed with both the daughters over the phone , risks and benefits of continuing systemic anti-coagulation was discussed. Given her h/o prior arterial thrombosis and now a venous thrombosis, she remains at risk for a new VTE/PE/CVA.An informed decision was made that with close monitoring of her Hct, LLE will continue systemic ac. Daughters in agreement with the plan. Stopped coumadin will continue LMWH with present doses Give One unit of PRBC for transfusion slowly (over 4-5hrs) repeat US LE to r/o progression of the DVT. ( she is adequately Anti-coagulated but due to her physical exam findings) will order. Vascular follow-up. The mild thrpmbocytopenia , I attribute it to consumption from hematoma, ( infection, abx) could play a role, less convincing for hemolysis and HIT. Will continue to monitor. Also, will send off PTT Mixing studies. Appreciate Rheumatology consult. continues to be on Plaquenil/Prednsione. Will follow closely Close monitoring. Plan was also discussed with ALFREDO
--- NOTE | 2017-12-27 15:40 | PN ---
Progress Note, Physician History of Present Illness: seen and examined today with daughter at bedside. Complaining of continued severe left lower extremity pain and swelling and bruising - Current Medication List Current Medications: Active Medications Acetaminophen (Tylenol -) 325 mg PO Q6H PRN PRN Reason: PAIN LEVEL 6-10 Last Admin: 12/26/17 22:07 Dose: 325 mg Atorvastatin Calcium (Lipitor -) 40 mg PO HS [facility] Last Admin: 12/26/17 21:58 Dose: 40 mg Carvedilol (Coreg -) 25 mg PO BID [facility] Last Admin: 12/27/17 10:52 Dose: 25 mg Clopidogrel Bisulfate (Plavix -) 75 mg PO DAILY [facility] Last Admin: 12/27/17 10:52 Dose: 75 mg Colchicine (Colcrys -) 0.6 mg PO BID [facility] Last Admin: 12/27/17 10:52 Dose: 0.6 mg Diltiazem HCl (Cardizem Cd -) 240 mg PO DAILY [facility] Last Admin: 12/27/17 10:52 Dose: 240 mg Dorzolamide HCl (Trusopt 2%) 1 drop OU BID [facility] Last Admin: 12/27/17 10:54 Dose: 1 drop Enoxaparin Sodium (Lovenox -) 70 mg SQ BID [facility] Last Admin: 12/27/17 10:53 Dose: 70 mg Furosemide (Lasix -) 40 mg PO DAILY [facility] Last Admin: 12/27/17 10:52 Dose: 40 mg Hydroxychloroquine Sulfate (Plaquenil -) 200 mg PO DAILY [facility] Last Admin: 12/27/17 10:54 Dose: 200 mg Vancomycin HCl 1,250 mg/ (Dextrose) 250 mls @ 166.667 mls/hr IVPB DAILY [facility] PRN Reason: Protocol Last Admin: 12/27/17 10:56 Dose: 166.667 mls/hr Aztreonam 2 gm/ Dextrose 100 mls @ 200 mls/hr IV Q8H-IV [facility]ON[facility] PRN Reason: Protocol Last Admin: 12/27/17 10:51 Dose: 200 mls/hr Insulin Aspart (Novolog Vial Sliding Scale -) 1 vial SQ ACHS [facility] PRN Reason: Protocol Last Admin: 12/27/17 15:13 Dose: Not Given Insulin Detemir (Levemir Vial) 20 units SQ AM [facility] Last Admin: 12/27/17 07:07 Dose: 20 unit Latanoprost (Xalatan 0.005% Eye Drops -) 1 drop OU HS [facility] Last Admin: 12/26/17 22:02 Dose: 1 drop Morphine Sulfate (Morphine Injection -) 4 mg IVPUSH Q6H PRN PRN Reason: PAIN LEVEL 6-10 Last Admin: 12/27/17 08:23 Dose: 4 mg Potassium Chloride (K-Dur -) 40 meq PO DAILY [facility] Last Admin: 12/27/17 10:52 Dose: 40 meq Prednisone (Deltasone -) 20 mg PO DAILY [facility] Last Admin: 12/27/17 10:52 Dose: 20 mg Timolol Maleate (Timoptic 0.5%) 1 drop OU BID [facility] Last Admin: 12/27/17 10:54 Dose: 1 drop - Objective Vital Signs: Vital Signs Temperature 97.6 F 12/27/17 15:10 Pulse Rate 63 12/27/17 15:10 Respiratory Rate 20 12/27/17 15:10 Blood Pressure 108/55 12/27/17 15:10 O2 Sat by Pulse Oximetry (%) 96 12/26/17 20:24 Constitutional: Yes: Well Nourished, Calm Eyes: Yes: Conjunctiva Clear, EOM Intact HENT: Yes: Atraumatic, Normocephalic Neck: Yes: Supple, Trachea Midline Cardiovascular: Yes: Murmur, S1, S2. No: Bradycardia, Tachycardia, Pulse Irregular, Bruit, JVD, Gallop, Rub, S3, S4, Varicosities Respiratory: Yes: Regular, Diminished. No: Rales, Rhonchi, SOB, Wheezes Gastrointestinal: Yes: Normal Bowel Sounds, Soft. No: Distention, Tenderness Musculoskeletal: Yes: Muscle Pain Extremities: Yes: Other (eecchymoses) Edema: Yes Edema: LLE: 1+ Peripheral Pulses WNL: Yes Peripheral Pulses: Left Doralis Pedis: 2+, Right Dorsalis Pedis: 2+ Integumentary: Yes: Bruising Neurological: Yes: Alert, Oriented Psychiatric: Yes: Alert, Oriented Labs: CBC, BMP 12/27/17 09:52 12/27/17 09:52 INR, PTT INR 1.51 (0.82-1.09) H 12/27/17 09:52 - ....Imaging Chest X-ray: Report Reviewed, Image Reviewed EKG: Report Reviewed, Image Reviewed Other: Report Reviewed, Image Reviewed Assessment/Plan IMP: Anticardiolipin Ab + Suspected connective tissue disorder Acute DVT Bilateral PNA (post-influenza) PAF s/p PPM, prior CVA hematoma left lower extremity REC: difficult case in light of significant hypercoagulable state including recent DVT and currently with a large hematoma CT of the lower extremities was done today and confirmed a large hematoma Distal LLE pulses 2+ palpable, good cap refill Monitor closely for development of compartment syndrome, will obtain vascular surgery evaluation risk versus benefits favors to continue anticoagulation at this time PRBC transfusions as needed Monitor H/H, Platelets Leg elevation Cont colchicine. (Recent pleuritis, pericarditis requiring pericardiocentesis) Cont po lasix
--- NOTE | 2017-12-27 17:42 | PN ---
Progress Note (short form) - Note Progress Note: Vascular Surgery Pt seen and examined. Recent DVT LLE Now has hematoma in left gastroc muscle. Pt is on lovenox. On exam -- leg is warm. Pt has palpable pulses. Pt has good motor and sensory intact. Has pain in calf on movement. No signs of compartment syndrome. Pt with connective tissue disorder and is hypercoaguble. Would not place IVC filter in pt as there is a risk of vena cava thrombosis from underlying disorder. Cont lovenox. Will need to do PT for ambulation. Will follow.
[2017-12-27] MEDS: LATANOPROST 0.005% OPHTH SOLN 2.5ML BOTTLE OU SCH (21:26)
[2017-12-27] MEDS: ATORVASTATIN CA 40 MG TABLET (FP) PO SCH (21:27)
--- NOTE | 2017-12-27 22:43 | PN ---
Progress Note, Physician History of Present Illness: Pt w/ pain of LLE ?Jaundice of skin - Current Medication List Current Medications: Active Medications Acetaminophen (Tylenol -) 325 mg PO Q6H PRN PRN Reason: PAIN LEVEL 6-10 Last Admin: 12/26/17 22:07 Dose: 325 mg Atorvastatin Calcium (Lipitor -) 40 mg PO HS [facility] Last Admin: 12/27/17 21:27 Dose: 40 mg Carvedilol (Coreg -) 25 mg PO BID [facility] Last Admin: 12/27/17 21:27 Dose: 25 mg Clopidogrel Bisulfate (Plavix -) 75 mg PO DAILY [facility] Last Admin: 12/27/17 10:52 Dose: 75 mg Colchicine (Colcrys -) 0.6 mg PO BID [facility] Last Admin: 12/27/17 21:27 Dose: 0.6 mg Diltiazem HCl (Cardizem Cd -) 240 mg PO DAILY [facility] Last Admin: 12/27/17 10:52 Dose: 240 mg Dorzolamide HCl (Trusopt 2%) 1 drop OU BID [facility] Last Admin: 12/27/17 21:26 Dose: 1 drop Enoxaparin Sodium (Lovenox -) 70 mg SQ BID [facility] Last Admin: 12/27/17 21:30 Dose: 70 mg Furosemide (Lasix -) 40 mg PO DAILY [facility] Last Admin: 12/27/17 10:52 Dose: 40 mg Hydroxychloroquine Sulfate (Plaquenil -) 200 mg PO DAILY [facility] Last Admin: 12/27/17 10:54 Dose: 200 mg Vancomycin HCl 1,250 mg/ (Dextrose) 250 mls @ 166.667 mls/hr IVPB DAILY [facility] PRN Reason: Protocol Last Admin: 12/27/17 10:56 Dose: 166.667 mls/hr Aztreonam 2 gm/ Dextrose 100 mls @ 200 mls/hr IV Q8H-IV [facility] PRN Reason: Protocol Last Admin: 12/27/17 19:04 Dose: Not Given Insulin Aspart (Novolog Vial Sliding Scale -) 1 vial SQ ACHS [facility] PRN Reason: Protocol Last Admin: 12/27/17 21:30 Dose: 10 units Insulin Detemir (Levemir Vial) 20 units SQ AM [facility] Last Admin: 12/27/17 07:07 Dose: 20 unit Latanoprost (Xalatan 0.005% Eye Drops -) 1 drop OU HS [facility] Last Admin: 12/27/17 21:26 Dose: 1 drop Morphine Sulfate (Morphine Injection -) 4 mg IVPUSH Q6H PRN PRN Reason: PAIN LEVEL 6-10 Last Admin: 12/27/17 08:23 Dose: 4 mg Potassium Chloride (K-Dur -) 40 meq PO DAILY [facility] Last Admin: 12/27/17 10:52 Dose: 40 meq Prednisone (Deltasone -) 20 mg PO DAILY [facility] Last Admin: 12/27/17 10:52 Dose: 20 mg Timolol Maleate (Timoptic 0.5%) 1 drop OU BID [facility] Last Admin: 12/27/17 21:26 Dose: 1 drop - Objective Vital Signs: Vital Signs Temperature 98.4 F 12/27/17 18:47 Pulse Rate 60 12/27/17 18:47 Respiratory Rate 20 12/27/17 21:00 Blood Pressure 136/64 12/27/17 18:47 O2 Sat by Pulse Oximetry (%) 96 12/27/17 21:00 Constitutional: Yes: Well Nourished HENT: Yes: WNL Neck: Yes: WNL, Supple Cardiovascular: Yes: WNL, Regular Rate and Rhythm Respiratory: Yes: WNL, Regular, CTA Bilaterally Gastrointestinal: Yes: WNL, Normal Bowel Sounds, Soft Extremities: Yes: Other ((+) eccyhmosis LT ankle) Edema: LLE: Trace Integumentary: Yes: Jaundice, Other ((+) multiple ecchymosis) Labs: CBC, BMP 12/27/17 09:52 12/27/17 09:52 INR, PTT INR 1.51 (0.82-1.09) H 12/27/17 09:52 Problem List - Problems (1) Jaundice Assessment/Plan: Elevated LFT's ?Drug induced Cont to monitor labs Check abdominal US GI consult Code(s): R17 - UNSPECIFIED JAUNDICE (2) DVT (deep venous thrombosis) Assessment/Plan: Pt is on lovenox US of LLE showed improvement of DVT CT scan of extremity showed large hematoma in calf Code(s): I82.409 - ACUTE EMBOLISM AND THOMBOS UNSP DEEP VN UNSP LOWER EXTREMITY Qualifiers: DVT location: lower extremity Affected thrombotic vein of extremity: popliteal Chronicity: acute Laterality: left Qualified Code(s): I82.432 - Acute embolism and thrombosis of left popliteal vein (3) Pneumonia Assessment/Plan: Post influenza penumonia Cont IV antibxs Check vanco trough Reconsult ID Code(s): J18.9 - PNEUMONIA, UNSPECIFIED ORGANISM (4) Diabetes Assessment/Plan: Cont sliding scale w/ coverage/levemir Code(s): E11.9 - TYPE 2 DIABETES MELLITUS WITHOUT COMPLICATIONS Qualifiers: Diabetes mellitus type: type 2 (5) Hypertension Code(s): I10 - ESSENTIAL (PRIMARY) HYPERTENSION Qualifiers: Hypertension type: essential hypertension Qualified Code(s): I10 - Essential (primary) hypertension (6) Afib Assessment/Plan: Parosyxmal AFIB Cont cardizem/coreg Heart rate controlled Code(s): I48.91 - UNSPECIFIED ATRIAL FIBRILLATION Qualifiers: Atrial fibrillation type: paroxysmal Qualified Code(s): I48.0 - Paroxysmal atrial fibrillation (7) Anticardiolipin antibody positive Assessment/Plan: As per rheum Code(s): R76.8 - OTHER SPECIFIED ABNORMAL IMMUNOLOGICAL FINDINGS IN SERUM (8) Pericarditis Assessment/Plan: As per rheum Cont plaquenil/colcyrs Code(s): I31.9 - DISEASE OF PERICARDIUM, UNSPECIFIED (9) HLD (hyperlipidemia) Code(s): E78.5 - HYPERLIPIDEMIA, UNSPECIFIED
[2017-12-28] MEDS: AZTREONAM 2 GM in DEXTROSE 5%-WATER - 100 ML IV SCH ×2 (01:36→11:52)
[2017-12-28] MEDS: INSULIN DETEMIR 100 UNITS/ML MDV SQ SCH (06:21)
[2017-12-28] MEDS: INSULIN SLIDING SCALE (NOVOLOG) 1 VIAL SQ SCH ×4 (06:21→21:50)
[2017-12-28] MEDS ORDERED: INSULIN (NOVOLOG) ASPART 100 UNITS/ML 10ML VIAL ONE ×2 (06:55→21:32)
[2017-12-28 07:30] LABS: BASO % 0.4 % (0-2.0); EOS % 1.5 % (0-4.5); HEMOGLOBIN 8.8 GM/dL (10.7-15.3); LYMPH % 30.9 % (8-40); MCH 28.5 pg (25.7-33.7); MCHC 32.7 g/dl (32.0-36.0); MEAN CELL VOLUME 87.2 fl (80-96); MEAN PLT VOLUME 8.8 fl (7.5-11.1); NEUT % 59.2 % (42.8-82.8); PLATELET COUNT 130 K/MM3 (134-434); RDW 17.3 % (11.6-15.6); WHITE BLOOD COUNT 6.6 K/mm3 (4.0-10.0)
[2017-12-28 07:44] LABS: INR 2.99 (0.82-1.09); PROTHROMBIN TIME (PATIENT) 33.8 SEC (9.98-11.88)
[2017-12-28 07:45] LABS: ACTIVATED PTT 42.3 SECONDS (26.9-34.4)
[2017-12-28 08:32] LABS: ALBUMIN 2.1 g/dl (3.4-5.0); ANION GAP 8 (8-16); BILIRUBIN,TOTAL 0.7 mg/dL (0.2-1.0); BLOOD UREA NITROGEN 19 mg/dL (7-18); CALCIUM 7.7 mg/dL (8.5-10.1); CHLORIDE 105 mmol/L (98-107); CO2 27 mmol/L (21-32); CREATININE 0.9 mg/dL (0.55-1.02); GLUCOSE,RANDOM 138 mg/dL (74-106); LDH 265 U/L (84-246); SGOT/AST 92 U/L (15-37); SGPT/ALT 163 U/L (12-78); SODIUM 140 mmol/L (136-145)
[2017-12-28 08:33] LABS: ALK PHOS 75 U/L (45-117)
--- NOTE | 2017-12-28 09:18 | PN ---
Progress Note, Physician Chief Complaint: alert and oriented No distress - Current Medication List Current Medications: Active Medications Acetaminophen (Tylenol -) 325 mg PO Q6H PRN PRN Reason: PAIN LEVEL 6-10 Last Admin: 12/26/17 22:07 Dose: 325 mg Atorvastatin Calcium (Lipitor -) 40 mg PO HS [facility] Last Admin: 12/27/17 21:27 Dose: 40 mg Carvedilol (Coreg -) 25 mg PO BID [facility] Last Admin: 12/27/17 21:27 Dose: 25 mg Clopidogrel Bisulfate (Plavix -) 75 mg PO DAILY [facility] Last Admin: 12/27/17 10:52 Dose: 75 mg Colchicine (Colcrys -) 0.6 mg PO BID [facility] Last Admin: 12/27/17 21:27 Dose: 0.6 mg Diltiazem HCl (Cardizem Cd -) 240 mg PO DAILY [facility] Last Admin: 12/27/17 10:52 Dose: 240 mg Dorzolamide HCl (Trusopt 2%) 1 drop OU BID [facility] Last Admin: 12/27/17 21:26 Dose: 1 drop Enoxaparin Sodium (Lovenox -) 70 mg SQ BID [facility] Last Admin: 12/27/17 21:30 Dose: 70 mg Furosemide (Lasix -) 40 mg PO DAILY [facility] Last Admin: 12/27/17 10:52 Dose: 40 mg Hydroxychloroquine Sulfate (Plaquenil -) 200 mg PO DAILY [facility] Last Admin: 12/27/17 10:54 Dose: 200 mg Vancomycin HCl 1,250 mg/ (Dextrose) 250 mls @ 166.667 mls/hr IVPB DAILY [facility] PRN Reason: Protocol Last Admin: 12/27/17 10:56 Dose: 166.667 mls/hr Aztreonam 2 gm/ Dextrose 100 mls @ 200 mls/hr IV Q8H-IV [facility] PRN Reason: Protocol Last Admin: 12/28/17 01:36 Dose: 200 mls/hr Insulin Aspart (Novolog Vial Sliding Scale -) 1 vial SQ ACHS [facility] PRN Reason: Protocol Last Admin: 12/28/17 06:21 Dose: Not Given Insulin Detemir (Levemir Vial) 20 units SQ AM [facility] Last Admin: 12/28/17 06:21 Dose: Not Given Latanoprost (Xalatan 0.005% Eye Drops -) 1 drop OU HS [facility] Last Admin: 12/27/17 21:26 Dose: 1 drop Morphine Sulfate (Morphine Injection -) 4 mg IVPUSH Q6H PRN PRN Reason: PAIN LEVEL 6-10 Last Admin: 12/27/17 23:01 Dose: 4 mg Potassium Chloride (K-Dur -) 40 meq PO DAILY [facility] Last Admin: 12/27/17 10:52 Dose: 40 meq Prednisone (Deltasone -) 20 mg PO DAILY [facility] Last Admin: 12/27/17 10:52 Dose: 20 mg Timolol Maleate (Timoptic 0.5%) 1 drop OU BID [facility] Last Admin: 12/27/17 21:26 Dose: 1 drop - Objective Vital Signs: Vital Signs Temperature 98 F 12/28/17 06:00 Pulse Rate 60 12/28/17 06:00 Respiratory Rate 20 12/28/17 06:00 Blood Pressure 166/64 12/28/17 06:00 O2 Sat by Pulse Oximetry (%) 96 12/27/17 21:00 Constitutional: Yes: No Distress, Calm Cardiovascular: Yes: Regular Rate and Rhythm Respiratory: Yes: CTA Bilaterally Gastrointestinal: Yes: Soft Edema: Yes Edema: LLE: 2+, RLE: 2+ Neurological: Yes: Alert, Oriented ...Motor Strength: WNL Labs: CBC, BMP 12/28/17 06:00 12/28/17 06:00 INR, PTT INR 2.99 (0.82-1.09) H D 12/28/17 06:00 Microbiology 12/23/17 14:50 Blood - Peripheral Venous Blood Culture - Preliminary NO GROWTH OBTAINED AFTER 96 HOURS, INCUBATION TO CONTINUE FOR 1 DAYS. 12/23/17 14:50 Blood - Peripheral Venous Blood Culture - Preliminary NO GROWTH OBTAINED AFTER 96 HOURS, INCUBATION TO CONTINUE FOR 1 DAYS. Laboratory Tests 12/27/17 12/28/17 12/28/17 09:52 06:00 06:00 WBC 6.6 Hgb 7.6 L 8.8 L D Plt Count 130 L INR 2.99 H D Sodium Potassium BUN Creatinine 12/28/17 06:00 WBC Hgb Plt Count INR Sodium 140 Potassium 4.0 BUN 19 H Creatinine 0.9 Assessment/Plan IMP: Anticardiolipin Ab + Suspected connective tissue disorder Acute DVT Bilateral PNA (post-influenza) PAF s/p PPM, prior CVA hematoma left lower extremity REC: Given high risk of thrombosis due to underlying hypercoag state, agree with continued AC with careful observation of lower extremity, H/H with transfusion as needed.
[2017-12-28] MEDS: MORPHINE SULFATE 10 MG/1 ML *VIAL IVPUSH PRN ×2 (09:57→14:45)
--- NOTE | 2017-12-28 11:36 | PN ---
Progress Note, Physician History of Present Illness: Occasional cough reported Breathing non-labored Afebrile WBC WNL BC no growth - Current Medication List Current Medications: Active Medications Acetaminophen (Tylenol -) 325 mg PO Q6H PRN PRN Reason: PAIN LEVEL 6-10 Last Admin: 12/26/17 22:07 Dose: 325 mg Atorvastatin Calcium (Lipitor -) 40 mg PO HS [facility] Last Admin: 12/27/17 21:27 Dose: 40 mg Carvedilol (Coreg -) 25 mg PO BID [facility] Last Admin: 12/27/17 21:27 Dose: 25 mg Clopidogrel Bisulfate (Plavix -) 75 mg PO DAILY [facility] Last Admin: 12/27/17 10:52 Dose: 75 mg Colchicine (Colcrys -) 0.6 mg PO BID [facility] Last Admin: 12/27/17 21:27 Dose: 0.6 mg Diltiazem HCl (Cardizem Cd -) 240 mg PO DAILY [facility] Last Admin: 12/27/17 10:52 Dose: 240 mg Dorzolamide HCl (Trusopt 2%) 1 drop OU BID [facility] Last Admin: 12/27/17 21:26 Dose: 1 drop Enoxaparin Sodium (Lovenox -) 70 mg SQ BID [facility] Last Admin: 12/27/17 21:30 Dose: 70 mg Furosemide (Lasix -) 40 mg PO DAILY [facility] Last Admin: 12/27/17 10:52 Dose: 40 mg Hydroxychloroquine Sulfate (Plaquenil -) 200 mg PO DAILY [facility] Last Admin: 12/27/17 10:54 Dose: 200 mg Insulin Aspart (Novolog Vial Sliding Scale -) 1 vial SQ ACHS [facility] PRN Reason: Protocol Last Admin: 12/28/17 06:21 Dose: Not Given Insulin Detemir (Levemir Vial) 20 units SQ AM [facility] Last Admin: 12/28/17 06:21 Dose: Not Given Latanoprost (Xalatan 0.005% Eye Drops -) 1 drop OU HS [facility] Last Admin: 12/27/17 21:26 Dose: 1 drop Morphine Sulfate (Morphine Injection -) 4 mg IVPUSH Q6H PRN PRN Reason: PAIN LEVEL 6-10 Last Admin: 12/28/17 09:57 Dose: 4 mg Potassium Chloride (K-Dur -) 40 meq PO DAILY [facility] Last Admin: 12/27/17 10:52 Dose: 40 meq Prednisone (Deltasone -) 20 mg PO DAILY [facility] Last Admin: 12/27/17 10:52 Dose: 20 mg Timolol Maleate (Timoptic 0.5%) 1 drop OU BID [facility] Last Admin: 12/27/17 21:26 Dose: 1 drop - Objective Vital Signs: Vital Signs Temperature 98 F 12/28/17 06:00 Pulse Rate 60 12/28/17 06:00 Respiratory Rate 20 12/28/17 06:00 Blood Pressure 166/64 12/28/17 06:00 O2 Sat by Pulse Oximetry (%) 96 12/27/17 21:00 Constitutional: Yes: No Distress Eyes: Yes: Conjunctiva Clear Cardiovascular: Yes: Regular Rate and Rhythm, S1, S2 Respiratory: Yes: Diminished Gastrointestinal: Yes: Normal Bowel Sounds, Soft. No: Tenderness Edema: Yes Labs: CBC, BMP 12/28/17 06:00 12/28/17 06:00 INR, PTT INR 2.99 (0.82-1.09) H D 12/28/17 06:00 Fibrinogen 460.0 mg/dL (238-498) 12/28/17 06:00 Assessment/Plan Bibasilar pneumonia L LE DVT/ hematoma S/P influenza CVA PCN allergy Continue empiric vancomycin/ aztreonam
[2017-12-28] MEDS: predniSONE 20 MG TABLET (UD) PO SCH (11:50)
[2017-12-28] MEDS: CARVEDILOL 25 MG TABLET (FP) PO SCH ×2 (11:50→21:49)
[2017-12-28] MEDS: POTASSIUM CHLORIDE TABS 20 MEQ TABLET.ER (FP) PO SCH (11:50)
[2017-12-28] MEDS: COLCHICINE 0.6 MG TABLET (FP) PO SCH ×2 (11:50→21:49)
[2017-12-28] MEDS: ENOXAPARIN NA (PORCINE) 80 MG/0.8 ML DISP.SYRIN SQ SCH ×2 (11:50→21:50)
[2017-12-28] MEDS: CLOPIDOGREL BISULFATE 75 MG TABLET (FP) PO SCH (11:51)
[2017-12-28] MEDS: FUROSEMIDE 40 MG TABLET (FP) PO SCH (11:51)
[2017-12-28] MEDS: HYDROXYCHLOROQUINE SO4 200 MG TABLET (FP) PO SCH (11:52)
[2017-12-28] MEDS: VANCOMYCIN 1,250 MG in DEXTROSE 5%-WATER - 250 ML IVPB SCH ×2 (11:56→12:07)
[2017-12-28] MEDS: DORZOLAMIDE 2% HCL OPHTHALMIC SOLUTION 10 ML BOTTLE OU SCH ×2 (12:06→21:53)
[2017-12-28] MEDS: TIMOLOL 0.5% OPHTHALMIC SOL 5 ML BOTTLE OU SCH ×2 (12:06→21:53)
--- NOTE | 2017-12-28 14:28 | PN ---
Progress Note (short form) - Note Progress Note: PULMONARY Still with LLE pain. Breathing better. Minimal cough. No fevers or chills. Last Vital Signs Temp Pulse Resp BP Pulse Ox 97.9 F 60 18 129/51 96 12/28/17 13:41 12/28/17 13:41 12/28/17 13:41 12/28/17 13:41 12/27/17 21:00 Gen: NAD at rest Heart: RRR Lung: decreased breath sounds at the bases Abd: soft, nontender Ext: no edema CBC, BMP 12/28/17 06:00 12/28/17 06:00 Active Medications Acetaminophen (Tylenol -) 325 mg PO Q6H PRN PRN Reason: PAIN LEVEL 6-10 Last Admin: 12/26/17 22:07 Dose: 325 mg Atorvastatin Calcium (Lipitor -) 40 mg PO HS [facility] Last Admin: 12/27/17 21:27 Dose: 40 mg Carvedilol (Coreg -) 25 mg PO BID [facility] Last Admin: 12/28/17 11:50 Dose: 25 mg Clopidogrel Bisulfate (Plavix -) 75 mg PO DAILY [facility] Last Admin: 12/28/17 11:51 Dose: 75 mg Colchicine (Colcrys -) 0.6 mg PO BID [facility] Last Admin: 12/28/17 11:50 Dose: 0.6 mg Diltiazem HCl (Cardizem Cd -) 240 mg PO DAILY [facility] Last Admin: 12/28/17 11:50 Dose: 240 mg Dorzolamide HCl (Trusopt 2%) 1 drop OU BID [facility] Last Admin: 12/28/17 12:06 Dose: 1 drop Enoxaparin Sodium (Lovenox -) 70 mg SQ BID [facility] Last Admin: 12/28/17 11:50 Dose: 70 mg Furosemide (Lasix -) 40 mg PO DAILY [facility] Last Admin: 12/28/17 11:51 Dose: 40 mg Hydroxychloroquine Sulfate (Plaquenil -) 200 mg PO DAILY [facility] Last Admin: 12/28/17 11:52 Dose: 200 mg Aztreonam 2 gm/ Dextrose 100 mls @ 100 mls/hr IVPB Q8H-IV [facility] PRN Reason: Protocol Vancomycin HCl 1,250 mg/ (Dextrose) 250 mls @ 250 mls/2 hr IVPB Q24H [facility] Last Admin: 12/28/17 12:07 Dose: Not Given Insulin Aspart (Novolog Vial Sliding Scale -) 1 vial SQ ACHS [facility] PRN Reason: Protocol Last Admin: 12/28/17 11:52 Dose: Not Given Insulin Detemir (Levemir Vial) 20 units SQ AM [facility] Last Admin: 12/28/17 06:21 Dose: Not Given Latanoprost (Xalatan 0.005% Eye Drops -) 1 drop OU HS [facility] Last Admin: 12/27/17 21:26 Dose: 1 drop Morphine Sulfate (Morphine Injection -) 4 mg IVPUSH Q6H PRN PRN Reason: PAIN LEVEL 6-10 Last Admin: 12/28/17 09:57 Dose: 4 mg Potassium Chloride (K-Dur -) 40 meq PO DAILY [facility] Last Admin: 12/28/17 11:50 Dose: 40 meq Prednisone (Deltasone -) 20 mg PO DAILY [facility] Last Admin: 12/28/17 11:50 Dose: 20 mg Timolol Maleate (Timoptic 0.5%) 1 drop OU BID [facility] Last Admin: 12/28/17 12:06 Dose: 1 drop A/P Acute LLE DVT Pneumonia Paroxysmal Atrial Fibrillation s/p PPM h/o CVA HTN CAD (+) anticardiolipin AB (SLE negative, markedly positive MEGHANN) - continue antibiotics per ID - continue anticoagulation - O2 to keep SpO2 >90% - incentive spirometry - leg elevation
[2017-12-28] MEDS ORDERED: PHYTONADIONE 10 MG/1 ML AMP SQ ONE ×2 (15:15→18:00)
--- NOTE | 2017-12-28 15:35 | PN ---
Progress Note (short form) - Note Progress Note: pt seen and examined Slightly better in terms of swelling. but continues to have pain. O/E: General: NAD HEENT: NCAT Cor: RRR Lungs: CTA b/l Abd: Soft LE: +in RADHA bandage, LLE slightly better than yesterday. Last Vital Signs Temp Pulse Resp BP Pulse Ox 97.9 F 60 18 129/51 96 12/28/17 13:41 12/28/17 13:41 12/28/17 13:41 12/28/17 13:41 12/27/17 21:00 CBC, BMP 12/28/17 06:00 12/28/17 06:00 Current Medications Generic Name Dose Route Start Last Admin Trade Name Freq PRN Reason Stop Dose Admin Acetaminophen 325 mg 12/23/17 15:56 12/26/17 22:07 Tylenol - PO 325 mg Q6H PRN Administration PAIN LEVEL 6-10 Atorvastatin Calcium 40 mg 12/23/17 22:00 12/27/17 21:27 Lipitor - PO 40 mg HS JONAS Administration Carvedilol 25 mg 12/23/17 22:00 12/28/17 11:50 Coreg - PO 25 mg BID JONAS Administration Clopidogrel Bisulfate 75 mg 12/24/17 10:00 12/28/17 11:51 Plavix - PO 75 mg DAILY JONAS Administration Colchicine 0.6 mg 12/24/17 10:00 12/28/17 11:50 Colcrys - PO 0.6 mg BID JONAS Administration Diltiazem HCl 240 mg 12/24/17 10:00 12/28/17 11:50 Cardizem Cd - PO 240 mg DAILY JONAS Administration Dorzolamide HCl 1 drop 12/23/17 22:00 12/28/17 12:06 Trusopt 2% OU 1 drop BID JONAS Administration Enoxaparin Sodium 70 mg 12/23/17 10:05 12/28/17 11:50 Lovenox - SQ 70 mg BID JONAS Administration Furosemide 40 mg 12/24/17 10:00 12/28/17 11:51 Lasix - PO 40 mg DAILY JONAS Administration Hydroxychloroquine Sulfate 200 mg 12/24/17 14:45 12/28/17 11:52 Plaquenil - PO 200 mg DAILY JONAS Administration Aztreonam 2 gm/ Dextrose 100 mls @ 100 mls/hr 12/28/17 18:00 IVPB Q8H-IV JONAS Protocol Vancomycin HCl 1,250 mg/ 250 mls @ 250 mls/2 hr 12/28/17 12:00 12/28/17 12:07 Dextrose IVPB Not Given Q24H JONAS Insulin Aspart 1 vial 12/23/17 16:30 12/28/17 11:52 Novolog Vial Sliding Scale - SQ Not Given ACHS JONAS Protocol Insulin Detemir 20 units 12/24/17 07:00 12/28/17 06:21 Levemir Vial SQ Not Given AM JONAS Latanoprost 1 drop 12/23/17 22:00 12/27/17 21:26 Xalatan 0.005% Eye Drops - OU 1 drop HS JONAS Administration Morphine Sulfate 4 mg 12/26/17 21:08 12/28/17 14:45 Morphine Injection - IVPUSH 4 mg Q6H PRN Administration PAIN LEVEL 6-10 Potassium Chloride 40 meq 12/23/17 16:00 12/28/17 11:50 K-Dur - PO 40 meq DAILY JONAS Administration Prednisone 20 mg 12/24/17 10:00 12/28/17 11:50 Deltasone - PO 20 mg DAILY JONAS Administration Timolol Maleate 1 drop 12/23/17 22:00 12/28/17 12:06 Timoptic 0.5% OU 1 drop BID JONAS Administration Hematoma PNA ( Post Influenza) Acute LLE DVT Mild thrombocytopenia PAF s/p PPM H/o CVA HTN Renal artery stenosis CAD APLS ( as per outside verbal report) -c/w lovenox -monitor crit -monitor coags -f/u mixing studies -abn LFTs, ?meds ?plaq ?lovenox, bili normal, US reviewed, hold statin? for now -
[2017-12-28] MEDS ORDERED: PT OWN MED DRAWER 7, Y5N ONE (17:59)
[2017-12-28] MEDS: AZTREONAM 2 GM in DEXTROSE 5%-WATER - 100 ML IVPB SCH (18:38)
--- NOTE | 2017-12-28 19:51 | CON.GI ---
Consult Consult Specialty:: GI Referred by:: Dr Goddard - History of Present Illness History of Present Illness: 72 y/o female with PMH of afib was admitted with acute DVT, positive anticardiolipin antibody. She was receiving Lovenox. On routine labs she was noted to have elevated liver enzymes. - Past Medical History [employer]: Yes: CVA Cardio/Vascular: Yes: AFIB, HTN, Hyperlipdemia, Other (pericarditis Pericardial effusion) Renal/: Yes: Other (Renal artery stenosis) ...: No Endocrine: Yes: Diabetes Mellitus - Past Surgical History Past Surgical History: Yes: Permanent Pacemaker - Alcohol/Substance Use Hx Alcohol Use: No - Smoking History Smoking history: Never smoked Have you smoked in the past 12 months: No Aproximately how many cigarettes per day: 5 If you are a former smoker, when did you quit?: 1993 - Social History ADL: Family Assistance History of Recent Travel: No Home Medications - Allergies Allergies/Adverse Reactions: Allergies Allergy/AdvReac Type Severity Reaction Status Date / Time aspirin Allergy Severe Verified 12/21/17 10:14 Penicillins Allergy Severe Verified 12/21/17 10:14 diclofenac Allergy Verified 12/21/17 10:14 shellfish derived Allergy Verified 12/21/17 10:14 lactose AdvReac Verified 12/21/17 10:14 iv contrast Allergy Uncoded 12/21/17 10:14 - Home Medications Home Medications: Ambulatory Orders Atorvastatin Ca [Lipitor] 40 mg PO HS 10/09/17 Clopidogrel Bisulfate [Plavix -] 75 mg PO DAILY 10/09/17 Colchicine 0.6 mg PO BID 10/09/17 Diltiazem HCl [Diltiazem 24Hr Cd] 240 mg PO DAILY 10/09/17 Metoclopramide HCl [Reglan] 5 mg PO DAILY PRN 10/09/17 Furosemide [Lasix -] 40 mg PO DAILY 12/11/17 Insulin Aspart [Novolog Flexpen] 0 unit SQ PRN 12/11/17 Insulin Glargine,Hum.rec.anlog [Lantus] 20 unit SQ AM 12/11/17 Linagliptin/Metformin HCl [Jentadueto 2.5 mg-500 mg Tab] 1 each PO BIDAC predniSONE [Deltasone -] 20 mg PO BID 12/11/17 Alprazolam [Xanax] 0.5 mg PO BID PRN 12/12/17 Ubidecarenone [Coq-10] 200 mg PO DAILY 12/12/17 Carvedilol [Coreg -] 25 mg PO BID tablet 12/13/17 Dorzolamide HCl [Trusopt 2% -] 1 drop OU BID drops 12/13/17 Latanoprost 0.005% Eye Drops [Xalatan 0.005% Eye Drops -] 1 drop OU HS drops Timolol 0.5% [Timoptic 0.5%] 1 drop OU BID drops 12/13/17 Warfarin Na [Coumadin -] 1 mg PO Q2D 12/21/17 Warfarin Sodium [Coumadin] 2 mg PO Q2D 12/21/17 Physical Exam-GI Vital Signs: Vital Signs Temperature 98.5 F 12/28/17 18:00 Pulse Rate 60 12/28/17 18:00 Respiratory Rate 18 12/28/17 18:00 Blood Pressure 140/58 12/28/17 18:00 O2 Sat by Pulse Oximetry (%) 96 12/27/17 21:00 Constitutional: Yes: Well Nourished, Poor Hygeine HENT: Yes: Atraumatic Neck: Yes: Supple, Thyromegaly Respiratory: Yes: CTA Bilaterally ...Palpate: Yes: Soft. No: Firm/Rigid, Guarding, Hepatomegaly, Mass, Pulsatile Mass, Splenomegaly Edema: LLE: 2+, RLE: 2+ Labs: CBC, BMP 12/28/17 06:00 12/28/17 06:00 INR, PTT INR 2.99 (0.82-1.09) H D 12/28/17 06:00 Fibrinogen 460.0 mg/dL (238-498) 12/28/17 06:00 Problem List - Problems (1) Elevated liver enzymes Assessment/Plan: rule out secondary to drug toxicity from Lovenox? and atrovastatin which on hold since 12/23 R> continue to monitor LFTS consider to switch to Coumadin Code(s): R74.8 - ABNORMAL LEVELS OF OTHER SERUM ENZYMES
--- NOTE | 2017-12-28 19:53 | PN ---
Progress Note, Physician History of Present Illness: Pt w/ pain of LLE despite being on morphine - Current Medication List Current Medications: Active Medications Acetaminophen (Tylenol -) 325 mg PO Q6H PRN PRN Reason: PAIN LEVEL 6-10 Last Admin: 12/26/17 22:07 Dose: 325 mg Atorvastatin Calcium (Lipitor -) 40 mg PO HS [facility] Last Admin: 12/27/17 21:27 Dose: 40 mg Carvedilol (Coreg -) 25 mg PO BID [facility] Last Admin: 12/28/17 11:50 Dose: 25 mg Clopidogrel Bisulfate (Plavix -) 75 mg PO DAILY [facility] Last Admin: 12/28/17 11:51 Dose: 75 mg Colchicine (Colcrys -) 0.6 mg PO BID [facility] Last Admin: 12/28/17 11:50 Dose: 0.6 mg Diltiazem HCl (Cardizem Cd -) 240 mg PO DAILY [facility] Last Admin: 12/28/17 11:50 Dose: 240 mg Dorzolamide HCl (Trusopt 2%) 1 drop OU BID [facility] Last Admin: 12/28/17 12:06 Dose: 1 drop Enoxaparin Sodium (Lovenox -) 70 mg SQ BID [facility] Last Admin: 12/28/17 11:50 Dose: 70 mg Furosemide (Lasix -) 40 mg PO DAILY [facility] Last Admin: 12/28/17 11:51 Dose: 40 mg Hydroxychloroquine Sulfate (Plaquenil -) 200 mg PO DAILY [facility] Last Admin: 12/28/17 11:52 Dose: 200 mg Aztreonam 2 gm/ Dextrose 100 mls @ 100 mls/hr IVPB Q8H-IV [facility] PRN Reason: Protocol Last Admin: 12/28/17 18:38 Dose: 100 mls/hr Vancomycin HCl 1,250 mg/ (Dextrose) 250 mls @ 250 mls/2 hr IVPB Q24H [facility] Last Admin: 12/28/17 12:07 Dose: Not Given Insulin Aspart (Novolog Vial Sliding Scale -) 1 vial SQ ACHS [facility] PRN Reason: Protocol Last Admin: 12/28/17 18:34 Dose: 8 units Insulin Detemir (Levemir Vial) 20 units SQ AM [facility] Last Admin: 12/28/17 06:21 Dose: Not Given Latanoprost (Xalatan 0.005% Eye Drops -) 1 drop OU HS [facility] Last Admin: 12/27/17 21:26 Dose: 1 drop Morphine Sulfate (Morphine Injection -) 4 mg IVPUSH Q6H PRN PRN Reason: PAIN LEVEL 6-10 Last Admin: 12/28/17 14:45 Dose: 4 mg Potassium Chloride (K-Dur -) 40 meq PO DAILY [facility] Last Admin: 12/28/17 11:50 Dose: 40 meq Prednisone (Deltasone -) 20 mg PO DAILY [facility] Last Admin: 12/28/17 11:50 Dose: 20 mg Timolol Maleate (Timoptic 0.5%) 1 drop OU BID [facility] Last Admin: 12/28/17 12:06 Dose: 1 drop - Objective Vital Signs: Vital Signs Temperature 98.5 F 12/28/17 18:00 Pulse Rate 60 12/28/17 18:00 Respiratory Rate 18 12/28/17 18:00 Blood Pressure 140/58 12/28/17 18:00 O2 Sat by Pulse Oximetry (%) 96 12/27/17 21:00 HENT: Yes: WNL Neck: Yes: WNL, Supple Cardiovascular: Yes: WNL, Regular Rate and Rhythm Respiratory: Yes: WNL, Regular, CTA Bilaterally Gastrointestinal: Yes: WNL, Normal Bowel Sounds, Soft Extremities: Yes: Other ((+) ecchymosis of extremities [place] LLE) Edema: LLE: Trace Labs: CBC, BMP 12/28/17 06:00 12/28/17 06:00 INR, PTT INR 2.99 (0.82-1.09) H D 12/28/17 06:00 Fibrinogen 460.0 mg/dL (238-498) 12/28/17 06:00 Problem List - Problems (1) Jaundice Assessment/Plan: Elevated LFT's ?Drug induced Cont to monitor labs US abd showed fatty liver and AAA Code(s): R17 - UNSPECIFIED JAUNDICE (2) DVT (deep venous thrombosis) Assessment/Plan: Cont lovenox US of LLE showed improvement of DVT CT scan of extremity showed large hematoma in calf Code(s): I82.409 - ACUTE EMBOLISM AND THOMBOS UNSP DEEP VN UNSP LOWER EXTREMITY Qualifiers: Qualified Code(s): I82.432 - Acute embolism and thrombosis of left popliteal vein (3) Pneumonia Assessment/Plan: Post influenza penumonia/bilateral pneumonia Cont IV antibxs Code(s): J18.9 - PNEUMONIA, UNSPECIFIED ORGANISM (4) Diabetes Assessment/Plan: Cont sliding scale w/ coverage/levemir Code(s): E11.9 - TYPE 2 DIABETES MELLITUS WITHOUT COMPLICATIONS (5) Hypertension Assessment/Plan: BP stable Cont antihypertensives Code(s): I10 - ESSENTIAL (PRIMARY) HYPERTENSION Qualifiers: Qualified Code(s): I10 - Essential (primary) hypertension (6) Afib Assessment/Plan: Parosyxmal AFIB Cont cardizem/coreg Heart rate controlled Code(s): I48.91 - UNSPECIFIED ATRIAL FIBRILLATION Qualifiers: Qualified Code(s): I48.0 - Paroxysmal atrial fibrillation (7) Anticardiolipin antibody positive Code(s): R76.8 - OTHER SPECIFIED ABNORMAL IMMUNOLOGICAL FINDINGS IN SERUM (8) Pericarditis Code(s): I31.9 - DISEASE OF PERICARDIUM, UNSPECIFIED (9) HLD (hyperlipidemia) Code(s): E78.5 - HYPERLIPIDEMIA, UNSPECIFIED
[2017-12-28] MEDS: LATANOPROST 0.005% OPHTH SOLN 2.5ML BOTTLE OU SCH (21:53)
[2017-12-29 00:09] LABS: COMPLEMENT TOTAL(CH50) 59 U/mL (42-60)
[2017-12-29] MEDS: AZTREONAM 2 GM in DEXTROSE 5%-WATER - 100 ML IVPB SCH ×3 (01:09→17:31)
[2017-12-29] MEDS: INSULIN SLIDING SCALE (NOVOLOG) 1 VIAL SQ SCH ×5 (06:04→22:03)
[2017-12-29] MEDS: INSULIN DETEMIR 100 UNITS/ML MDV SQ SCH ×3 (06:05→10:37)
[2017-12-29] MEDS ORDERED: INSULIN DETEMIR 100 UNITS/ML MDV SQ ONE ×2 (06:48→10:18)
[2017-12-29] MEDS ORDERED: INSULIN (NOVOLOG) ASPART 100 UNITS/ML 10ML VIAL ONE ×2 (06:48→21:39)
[2017-12-29 07:41] LABS: BASO % 0.2 % (0-2.0); EOS % 0.8 % (0-4.5); HEMATOCRIT 27.6 % (32.4-45.2); HEMOGLOBIN 8.9 GM/dL (10.7-15.3); LYMPH % 24.3 % (8-40); MCH 28.4 pg (25.7-33.7); MCHC 32.3 g/dl (32.0-36.0); MEAN CELL VOLUME 88.2 fl (80-96); MEAN PLT VOLUME 8.4 fl (7.5-11.1); MONO % 7.3 % (3.8-10.2); NEUT % 67.4 % (42.8-82.8); PLATELET COUNT 137 K/MM3 (134-434); RBC 3.14 M/mm3 (3.60-5.2); RDW 17.3 % (11.6-15.6); WHITE BLOOD COUNT 6.4 K/mm3 (4.0-10.0)
[2017-12-29 08:37] LABS: ANION GAP 11 (8-16); BLOOD UREA NITROGEN 24 mg/dL (7-18); CALCIUM 8.5 mg/dL (8.5-10.1); CHLORIDE 104 mmol/L (98-107); CO2 25 mmol/L (21-32); GLUCOSE,RANDOM 155 mg/dL (74-106); POTASSIUM 4.4 mmol/L (3.5-5.1); SGOT/AST 80 U/L (15-37); SGPT/ALT 167 U/L (12-78); SODIUM 140 mmol/L (136-145)
[2017-12-29 08:40] LABS: ALK PHOS 73 U/L (45-117); BILIRUBIN,TOTAL 0.4 mg/dL (0.2-1.0); TOT PROT 5.1 g/dl (6.4-8.2)
[2017-12-29] MEDS ORDERED: PT OWN MED DRAWER 7, Y5N ONE ×2 (10:20→21:42)
[2017-12-29] MEDS: HYDROXYCHLOROQUINE SO4 200 MG TABLET (FP) PO SCH (10:31)
[2017-12-29] MEDS: ENOXAPARIN NA (PORCINE) 80 MG/0.8 ML DISP.SYRIN SQ SCH ×2 (10:31→22:02)
[2017-12-29] MEDS: predniSONE 20 MG TABLET (UD) PO SCH (10:32)
[2017-12-29] MEDS: COLCHICINE 0.6 MG TABLET (FP) PO SCH ×2 (10:32→22:02)
[2017-12-29] MEDS: FUROSEMIDE 40 MG TABLET (FP) PO SCH (10:32)
[2017-12-29] MEDS: CARVEDILOL 25 MG TABLET (FP) PO SCH ×2 (10:32→22:02)
[2017-12-29] MEDS: POTASSIUM CHLORIDE TABS 20 MEQ TABLET.ER (FP) PO SCH (10:32)
[2017-12-29] MEDS: CLOPIDOGREL BISULFATE 75 MG TABLET (FP) PO SCH (10:33)
[2017-12-29] MEDS: TIMOLOL 0.5% OPHTHALMIC SOL 5 ML BOTTLE OU SCH ×2 (10:35→22:03)
[2017-12-29] MEDS: DORZOLAMIDE 2% HCL OPHTHALMIC SOLUTION 10 ML BOTTLE OU SCH ×2 (10:35→22:03)
--- NOTE | 2017-12-29 10:36 | PN ---
Progress Note, Physician Chief Complaint: no acute distress History of Present Illness: LFTs trending up - Current Medication List Current Medications: Active Medications Acetaminophen (Tylenol -) 325 mg PO Q6H PRN PRN Reason: PAIN LEVEL 6-10 Last Admin: 12/26/17 22:07 Dose: 325 mg Atorvastatin Calcium (Lipitor -) 40 mg PO HS [facility] Last Admin: 12/27/17 21:27 Dose: 40 mg Carvedilol (Coreg -) 25 mg PO BID [facility] Last Admin: 12/28/17 21:49 Dose: 25 mg Clopidogrel Bisulfate (Plavix -) 75 mg PO DAILY [facility] Last Admin: 12/28/17 11:51 Dose: 75 mg Colchicine (Colcrys -) 0.6 mg PO BID [facility] Last Admin: 12/28/17 21:49 Dose: 0.6 mg Diltiazem HCl (Cardizem Cd -) 240 mg PO DAILY [facility] Last Admin: 12/28/17 11:50 Dose: 240 mg Dorzolamide HCl (Trusopt 2%) 1 drop OU BID [facility] Last Admin: 12/28/17 21:53 Dose: 1 drop Enoxaparin Sodium (Lovenox -) 70 mg SQ BID [facility] Last Admin: 12/28/17 21:50 Dose: 70 mg Furosemide (Lasix -) 40 mg PO DAILY [facility] Last Admin: 12/28/17 11:51 Dose: 40 mg Hydroxychloroquine Sulfate (Plaquenil -) 200 mg PO DAILY [facility] Last Admin: 12/28/17 11:52 Dose: 200 mg Aztreonam 2 gm/ Dextrose 100 mls @ 100 mls/hr IVPB Q8H-IV [facility] PRN Reason: Protocol Last Admin: 12/29/17 01:09 Dose: 100 mls/hr Vancomycin HCl 1,250 mg/ (Dextrose) 250 mls @ 250 mls/2 hr IVPB Q24H [facility] Last Admin: 12/28/17 12:07 Dose: Not Given Insulin Aspart (Novolog Vial Sliding Scale -) 1 vial SQ ACHS [facility] PRN Reason: Protocol Last Admin: 12/28/17 21:50 Dose: 6 units Insulin Detemir (Levemir Vial) 20 units SQ AM [facility] Last Admin: 12/29/17 06:08 Dose: Not Given Latanoprost (Xalatan 0.005% Eye Drops -) 1 drop OU HS [facility] Last Admin: 12/28/17 21:53 Dose: 1 drop Morphine Sulfate (Morphine Injection -) 4 mg IVPUSH Q6H PRN PRN Reason: PAIN LEVEL 6-10 Last Admin: 12/28/17 14:45 Dose: 4 mg Potassium Chloride (K-Dur -) 40 meq PO DAILY [facility] Last Admin: 12/28/17 11:50 Dose: 40 meq Prednisone (Deltasone -) 20 mg PO DAILY [facility] Last Admin: 12/28/17 11:50 Dose: 20 mg Timolol Maleate (Timoptic 0.5%) 1 drop OU BID [facility] Last Admin: 12/28/17 21:53 Dose: 1 drop - Objective Vital Signs: Vital Signs Temperature 98.2 F 12/29/17 01:27 Pulse Rate 60 12/29/17 01:27 Respiratory Rate 18 12/29/17 01:27 Blood Pressure 153/64 12/29/17 01:27 O2 Sat by Pulse Oximetry (%) 97 12/28/17 20:32 Constitutional: Yes: No Distress Cardiovascular: Yes: Regular Rate and Rhythm Respiratory: Yes: CTA Bilaterally Gastrointestinal: Yes: Soft Edema: No Neurological: Yes: Alert, Oriented ...Motor Strength: WNL Labs: CBC, BMP 12/29/17 06:00 12/29/17 06:00 INR, PTT INR 2.99 (0.82-1.09) H D 12/28/17 06:00 Fibrinogen 460.0 mg/dL (238-498) 12/28/17 06:00 Laboratory Tests 12/28/17 12/29/17 12/29/17 06:00 06:00 06:00 WBC 6.4 Hgb 8.9 L Plt Count 137 INR 2.99 H D Sodium 140 Potassium 4.4 BUN 24 H Creatinine 1.0 Random Glucose 155 H Assessment/Plan MP: Anticardiolipin Ab + Suspected connective tissue disorder Acute DVT Bilateral PNA (post-influenza) PAF s/p PPM, prior CVA hematoma left lower extremity REC: Given high risk of thrombosis due to underlying hypercoag state, agree with continued AC with careful observation of lower extremity, H/H with transfusion as needed. Hold statin as LFTs are rising.
[2017-12-29] MEDS: ACETAMINOPHEN 325 MG TABLET (FP) PO PRN (11:32)
[2017-12-29] MEDS: VANCOMYCIN 1,250 MG in DEXTROSE 5%-WATER - 250 ML IVPB SCH (11:32)
[2017-12-29 12:27] LABS: INR 1.93 (0.82-1.09); PROTHROMBIN TIME (PATIENT) 21.8 SEC (9.98-11.88)
[2017-12-29 12:30] LABS: ACTIVATED PTT 42.9 SECONDS (26.9-34.4)
--- NOTE | 2017-12-29 14:12 | PN ---
Progress Note, Physician History of Present Illness: pulmonary alert,nad,-cp,-sob,mild cough,+LLE pain - Current Medication List Current Medications: Active Medications Acetaminophen (Tylenol -) 325 mg PO Q6H PRN PRN Reason: PAIN LEVEL 6-10 Last Admin: 12/29/17 11:32 Dose: 325 mg Carvedilol (Coreg -) 25 mg PO BID [facility] Last Admin: 12/29/17 10:32 Dose: 25 mg Clopidogrel Bisulfate (Plavix -) 75 mg PO DAILY [facility] Last Admin: 12/29/17 10:33 Dose: 75 mg Colchicine (Colcrys -) 0.6 mg PO BID [facility] Last Admin: 12/29/17 10:32 Dose: 0.6 mg Diltiazem HCl (Cardizem Cd -) 240 mg PO DAILY [facility] Last Admin: 12/29/17 10:32 Dose: 240 mg Dorzolamide HCl (Trusopt 2%) 1 drop OU BID [facility] Last Admin: 12/29/17 10:35 Dose: 1 drop Enoxaparin Sodium (Lovenox -) 70 mg SQ BID [facility] Last Admin: 12/29/17 10:31 Dose: 70 mg Furosemide (Lasix -) 40 mg PO DAILY [facility] Last Admin: 12/29/17 10:32 Dose: 40 mg Hydroxychloroquine Sulfate (Plaquenil -) 200 mg PO DAILY [facility] Last Admin: 12/29/17 10:31 Dose: 200 mg Aztreonam 2 gm/ Dextrose 100 mls @ 100 mls/hr IVPB Q8H-IV [facility] PRN Reason: Protocol Last Admin: 12/29/17 10:33 Dose: 100 mls/hr Vancomycin HCl 1,250 mg/ (Dextrose) 250 mls @ 250 mls/2 hr IVPB Q24H [facility] Last Admin: 12/29/17 11:32 Dose: 250 mls/2 hr Insulin Aspart (Novolog Vial Sliding Scale -) 1 vial SQ ACHS [facility] PRN Reason: Protocol Last Admin: 12/29/17 11:25 Dose: 6 units Insulin Detemir (Levemir Vial) 20 units SQ AM [facility] Last Admin: 12/29/17 10:37 Dose: 20 unit Latanoprost (Xalatan 0.005% Eye Drops -) 1 drop OU HS [facility] Last Admin: 12/28/17 21:53 Dose: 1 drop Morphine Sulfate (Morphine Injection -) 4 mg IVPUSH Q6H PRN PRN Reason: PAIN LEVEL 6-10 Last Admin: 12/28/17 14:45 Dose: 4 mg Potassium Chloride (K-Dur -) 40 meq PO DAILY [facility] Last Admin: 12/29/17 10:32 Dose: 40 meq Prednisone (Deltasone -) 20 mg PO DAILY [facility] Last Admin: 12/29/17 10:32 Dose: 20 mg Timolol Maleate (Timoptic 0.5%) 1 drop OU BID [facility] Last Admin: 12/29/17 10:35 Dose: 1 drop - Objective Vital Signs: Vital Signs Temperature 97.7 F 12/29/17 13:50 Pulse Rate 60 12/29/17 13:50 Respiratory Rate 20 12/29/17 13:50 Blood Pressure 145/60 12/29/17 13:50 O2 Sat by Pulse Oximetry (%) 97 12/28/17 20:32 Constitutional: Yes: Well Nourished, Calm Eyes: Yes: WNL HENT: Yes: WNL Neck: Yes: WNL Cardiovascular: Yes: Regular Rate and Rhythm, S1, S2 Respiratory: Yes: CTA Bilaterally Gastrointestinal: Yes: Normal Bowel Sounds, Soft Extremities: Yes: Other (LLE SWELLING) Labs: CBC, BMP 12/29/17 06:00 12/29/17 06:00 INR, PTT INR 1.93 (0.82-1.09) H D 12/29/17 11:53 Fibrinogen 460.0 mg/dL (238-498) 12/28/17 06:00 Assessment/Plan Problem List - Problems (1) DVT (deep venous thrombosis) Code(s): I82.409 - ACUTE EMBOLISM AND THOMBOS UNSP DEEP VN UNSP LOWER EXTREMITY Qualifiers: DVT location: lower extremity Affected thrombotic vein of extremity: popliteal Chronicity: acute Laterality: left Qualified Code(s): I82.432 - Acute embolism and thrombosis of left popliteal vein (2) Afib Code(s): I48.91 - UNSPECIFIED ATRIAL FIBRILLATION Qualifiers: Atrial fibrillation type: paroxysmal Qualified Code(s): I48.0 - Paroxysmal atrial fibrillation (3) Anticardiolipin antibody positive Code(s): R76.8 - OTHER SPECIFIED ABNORMAL IMMUNOLOGICAL FINDINGS IN SERUM (4) CHF (congestive heart failure) Code(s): I50.9 - HEART FAILURE, UNSPECIFIED (5) Diabetes Code(s): E11.9 - TYPE 2 DIABETES MELLITUS WITHOUT COMPLICATIONS Qualifiers: Diabetes mellitus type: type 2 (6) Community Acquired PNA Assessment/Plan Acute LLE DVT PAF s/p PPM H/o CVA Pneumonia HTN Renal artery stenosis CAD (+) anticardiolipin AB (SLE negative, markedly positive MEGHANN) ABX as per ID AC for DVT Local wound care per Surgery O2 as needed to maintain saturation Aspiration precautions DR BAE
--- NOTE | 2017-12-29 16:58 | PN ---
Progress Note (short form) - Note Progress Note: pt seen and examined LLE stable, pain controlled. O/E: General: NAD HEENT: NCAT Cor: RRR Lungs: CTA b/l Abd: Soft LE: +in RADHA bandage, LLE stable when compared to yesterday. Last Vital Signs Temp Pulse Resp BP Pulse Ox 97.7 F 60 20 145/60 97 12/29/17 13:50 12/29/17 13:50 12/29/17 13:50 12/29/17 13:50 12/29/17 09:00 CBC, BMP 12/29/17 06:00 12/29/17 06:00 Current Medications Generic Name Dose Route Start Last Admin Trade Name Freq PRN Reason Stop Dose Admin Acetaminophen 325 mg 12/23/17 15:56 12/29/17 11:32 Tylenol - PO 325 mg Q6H PRN Administration PAIN LEVEL 6-10 Carvedilol 25 mg 12/23/17 22:00 12/29/17 10:32 Coreg - PO 25 mg BID [facility] Administration Clopidogrel Bisulfate 75 mg 12/24/17 10:00 12/29/17 10:33 Plavix - PO 75 mg DAILY [facility] Administration Colchicine 0.6 mg 12/24/17 10:00 12/29/17 10:32 Colcrys - PO 0.6 mg BID [facility] Administration Diltiazem HCl 240 mg 12/24/17 10:00 12/29/17 10:32 Cardizem Cd - PO 240 mg DAILY [facility] Administration Dorzolamide HCl 1 drop 12/23/17 22:00 12/29/17 10:35 Trusopt 2% OU 1 drop BID [facility] Administration Enoxaparin Sodium 70 mg 12/23/17 10:05 12/29/17 10:31 Lovenox - SQ 70 mg BID [facility] Administration Furosemide 40 mg 12/24/17 10:00 12/29/17 10:32 Lasix - PO 40 mg DAILY [facility] Administration Hydroxychloroquine Sulfate 200 mg 12/24/17 14:45 12/29/17 10:31 Plaquenil - PO 200 mg DAILY [facility] Administration Aztreonam 2 gm/ Dextrose 100 mls @ 100 mls/hr 12/28/17 18:00 12/29/17 10:33 IVPB 100 mls/hr Q8H-IV [facility] Administration Protocol Vancomycin HCl 1,250 mg/ 250 mls @ 250 mls/2 hr 12/28/17 12:00 12/29/17 11:32 Dextrose IVPB 250 mls/2 hr Q24H [facility] Administration Insulin Aspart 1 vial 12/23/17 16:30 12/29/17 11:25 Novolog Vial Sliding Scale - SQ 6 units ACHS [facility] Administration Protocol Insulin Detemir 20 units 12/24/17 07:00 12/29/17 10:37 Levemir Vial SQ 20 unit AM [facility] Administration Latanoprost 1 drop 12/23/17 22:00 12/28/17 21:53 Xalatan 0.005% Eye Drops - OU 1 drop HS [facility] Administration Morphine Sulfate 4 mg 12/26/17 21:08 12/28/17 14:45 Morphine Injection - IVPUSH 4 mg Q6H PRN Administration PAIN LEVEL 6-10 Potassium Chloride 40 meq 12/23/17 16:00 12/29/17 10:32 K-Dur - PO 40 meq DAILY [facility] Administration Prednisone 20 mg 12/24/17 10:00 12/29/17 10:32 Deltasone - PO 20 mg DAILY [facility] Administration Timolol Maleate 1 drop 12/23/17 22:00 12/29/17 10:35 Timoptic 0.5% OU 1 drop BID [facility] Administration Hematoma PNA ( Post Influenza) Acute LLE DVT PAF s/p PPM H/o CVA HTN Renal artery stenosis CAD APLS ( as per outside verbal report) Prolonged PTT in the setting of APLS -c/w lovenox -monitor crit -monitor coags -f/u mixing studies -abn LFTs, will monitor, off of statin -Mild thrombocytopenia, improved -leg elevation
--- NOTE | 2017-12-29 21:16 | PN ---
Progress Note, Physician History of Present Illness: No new complaints - Current Medication List Current Medications: Active Medications Acetaminophen (Tylenol -) 325 mg PO Q6H PRN PRN Reason: PAIN LEVEL 6-10 Last Admin: 12/29/17 11:32 Dose: 325 mg Carvedilol (Coreg -) 25 mg PO BID [facility] Last Admin: 12/29/17 10:32 Dose: 25 mg Clopidogrel Bisulfate (Plavix -) 75 mg PO DAILY [facility] Last Admin: 12/29/17 10:33 Dose: 75 mg Colchicine (Colcrys -) 0.6 mg PO BID [facility] Last Admin: 12/29/17 10:32 Dose: 0.6 mg Diltiazem HCl (Cardizem Cd -) 240 mg PO DAILY [facility] Last Admin: 12/29/17 10:32 Dose: 240 mg Dorzolamide HCl (Trusopt 2%) 1 drop OU BID [facility] Last Admin: 12/29/17 10:35 Dose: 1 drop Enoxaparin Sodium (Lovenox -) 70 mg SQ BID [facility] Last Admin: 12/29/17 10:31 Dose: 70 mg Furosemide (Lasix -) 40 mg PO DAILY [facility] Last Admin: 12/29/17 10:32 Dose: 40 mg Hydroxychloroquine Sulfate (Plaquenil -) 200 mg PO DAILY [facility] Last Admin: 12/29/17 10:31 Dose: 200 mg Aztreonam 2 gm/ Dextrose 100 mls @ 100 mls/hr IVPB Q8H-IV JONAS PRN Reason: Protocol Last Admin: 12/29/17 17:31 Dose: 100 mls/hr Vancomycin HCl 1,250 mg/ (Dextrose) 250 mls @ 250 mls/2 hr IVPB Q24H [facility] Last Admin: 12/29/17 11:32 Dose: 250 mls/2 hr Insulin Aspart (Novolog Vial Sliding Scale -) 1 vial SQ ACHS JONAS PRN Reason: Protocol Last Admin: 12/29/17 17:32 Dose: 10 units Insulin Detemir (Levemir Vial) 20 units SQ AM [facility] Last Admin: 12/29/17 10:37 Dose: 20 unit Latanoprost (Xalatan 0.005% Eye Drops -) 1 drop OU HS [facility] Last Admin: 12/28/17 21:53 Dose: 1 drop Potassium Chloride (K-Dur -) 40 meq PO DAILY [facility] Last Admin: 12/29/17 10:32 Dose: 40 meq Prednisone (Deltasone -) 20 mg PO DAILY [facility] Last Admin: 12/29/17 10:32 Dose: 20 mg Timolol Maleate (Timoptic 0.5%) 1 drop OU BID [facility] Last Admin: 12/29/17 10:35 Dose: 1 drop - Objective Vital Signs: Vital Signs Temperature 97.2 F L 12/29/17 18:00 Pulse Rate 65 12/29/17 18:00 Respiratory Rate 20 12/29/17 18:00 Blood Pressure 138/78 12/29/17 18:00 O2 Sat by Pulse Oximetry (%) 97 12/29/17 09:00 Neck: Yes: WNL, Supple Cardiovascular: Yes: WNL, Regular Rate and Rhythm Respiratory: Yes: WNL, Regular, CTA Bilaterally Gastrointestinal: Yes: WNL, Normal Bowel Sounds, Soft Labs: CBC, BMP 12/29/17 06:00 12/29/17 06:00 INR, PTT INR 1.93 (0.82-1.09) H D 12/29/17 11:53 Fibrinogen 460.0 mg/dL (238-498) 12/28/17 06:00 Problem List - Problems (1) DVT (deep venous thrombosis) Assessment/Plan: Cont lovenox US of LLE showed improvement of DVT CT scan of extremity showed large hematoma in calf Code(s): I82.409 - ACUTE EMBOLISM AND THOMBOS UNSP DEEP VN UNSP LOWER EXTREMITY Qualifiers: DVT location: lower extremity Affected thrombotic vein of extremity: popliteal Chronicity: acute Laterality: left Qualified Code(s): I82.432 - Acute embolism and thrombosis of left popliteal vein (2) Elevated liver enzymes Assessment/Plan: Cont to monitor LFT's Statin were stopped Code(s): R74.8 - ABNORMAL LEVELS OF OTHER SERUM ENZYMES (3) Diabetes Assessment/Plan: Cont sliding scale w/ coverage/levemir Code(s): E11.9 - TYPE 2 DIABETES MELLITUS WITHOUT COMPLICATIONS Qualifiers: Diabetes mellitus type: type 2 (4) HLD (hyperlipidemia) Code(s): E78.5 - HYPERLIPIDEMIA, UNSPECIFIED (5) Hypertension Code(s): I10 - ESSENTIAL (PRIMARY) HYPERTENSION Qualifiers: Hypertension type: essential hypertension Qualified Code(s): I10 - Essential (primary) hypertension (6) Pneumonia Assessment/Plan: Post influenza penumonia/bilateral pneumonia Cont IV antibxs Code(s): J18.9 - PNEUMONIA, UNSPECIFIED ORGANISM (7) Pericarditis Assessment/Plan: Cont plaquenil/prednisone/colcyrs Code(s): I31.9 - DISEASE OF PERICARDIUM, UNSPECIFIED Qualifiers: Pericarditis type: idiopathic
[2017-12-29] MEDS: LATANOPROST 0.005% OPHTH SOLN 2.5ML BOTTLE OU SCH (22:03)
[2017-12-30] MEDS ORDERED: PT OWN MED DRAWER 7, Y5N ONE ×3 (01:01→17:09)
[2017-12-30] MEDS: AZTREONAM 2 GM in DEXTROSE 5%-WATER - 100 ML IVPB SCH ×3 (01:49→17:12)
[2017-12-30] MEDS: INSULIN DETEMIR 100 UNITS/ML MDV SQ SCH (06:21)
[2017-12-30] MEDS: INSULIN SLIDING SCALE (NOVOLOG) 1 VIAL SQ SCH ×4 (06:21→21:00)
[2017-12-30] MEDS: COLCHICINE 0.6 MG TABLET (FP) PO SCH ×2 (09:30→21:01)
[2017-12-30] MEDS: ENOXAPARIN NA (PORCINE) 80 MG/0.8 ML DISP.SYRIN SQ SCH (09:30)
[2017-12-30] MEDS: CLOPIDOGREL BISULFATE 75 MG TABLET (FP) PO SCH (09:30)
[2017-12-30] MEDS: FUROSEMIDE 40 MG TABLET (FP) PO SCH (09:30)
[2017-12-30] MEDS: HYDROXYCHLOROQUINE SO4 200 MG TABLET (FP) PO SCH (09:30)
[2017-12-30] MEDS: CARVEDILOL 25 MG TABLET (FP) PO SCH ×2 (09:30→21:01)
[2017-12-30] MEDS: predniSONE 20 MG TABLET (UD) PO SCH (09:30)
[2017-12-30] MEDS: POTASSIUM CHLORIDE TABS 20 MEQ TABLET.ER (FP) PO SCH (09:30)
[2017-12-30] MEDS: TIMOLOL 0.5% OPHTHALMIC SOL 5 ML BOTTLE OU SCH ×2 (09:31→21:01)
[2017-12-30] MEDS: DORZOLAMIDE 2% HCL OPHTHALMIC SOLUTION 10 ML BOTTLE OU SCH ×2 (09:31→21:01)
[2017-12-30 09:39] LABS: BASO % 0.3 % (0-2.0); EOS % 2.1 % (0-4.5); HEMATOCRIT 27.3 % (32.4-45.2); HEMOGLOBIN 8.7 GM/dL (10.7-15.3); LYMPH % 33.3 % (8-40); MCH 28.6 pg (25.7-33.7); MEAN CELL VOLUME 89.3 fl (80-96); MEAN PLT VOLUME 7.8 fl (7.5-11.1); MONO % 6.8 % (3.8-10.2); NEUT % 57.5 % (42.8-82.8); PLATELET COUNT 151 K/MM3 (134-434); RBC 3.05 M/mm3 (3.60-5.2); RDW 17.8 % (11.6-15.6); WHITE BLOOD COUNT 5.1 K/mm3 (4.0-10.0)
[2017-12-30 10:12] LABS: INR 1.43 (0.82-1.09); PROTHROMBIN TIME (PATIENT) 16.2 SEC (9.98-11.88)
[2017-12-30 10:14] LABS: ACTIVATED PTT 35.2 SECONDS (26.9-34.4)
[2017-12-30] MEDS ORDERED: INSULIN (NOVOLOG) ASPART 100 UNITS/ML 10ML VIAL ONE ×2 (11:08→19:35)
[2017-12-30] MEDS: VANCOMYCIN 1,250 MG in DEXTROSE 5%-WATER - 250 ML IVPB SCH (12:31)
--- NOTE | 2017-12-30 12:43 | PN ---
Progress Note (short form) - Note Progress Note: pt seen and examined LLE stable , walked to the bathroom with help. O/E: General: NAD HEENT: NCAT Cor: RRR Lungs: CTA b/l Abd: Soft LE: left:stable Last Vital Signs Temp Pulse Resp BP Pulse Ox 97.5 F L 60 18 145/73 97 12/30/17 09:00 12/30/17 09:00 12/30/17 09:00 12/30/17 09:00 12/30/17 09:00 CBC, BMP 12/30/17 09:26 Current Medications Generic Name Dose Route Start Last Admin Trade Name Freq PRN Reason Stop Dose Admin Acetaminophen 325 mg 12/23/17 15:56 12/29/17 11:32 Tylenol - PO 325 mg Q6H PRN Administration PAIN LEVEL 6-10 Carvedilol 25 mg 12/23/17 22:00 12/30/17 09:30 Coreg - PO 25 mg BID JONAS Administration Clopidogrel Bisulfate 75 mg 12/24/17 10:00 12/30/17 09:30 Plavix - PO 75 mg DAILY JONAS Administration Colchicine 0.6 mg 12/24/17 10:00 12/30/17 09:30 Colcrys - PO 0.6 mg BID JONAS Administration Diltiazem HCl 240 mg 12/24/17 10:00 12/30/17 09:30 Cardizem Cd - PO 240 mg DAILY JONAS Administration Dorzolamide HCl 1 drop 12/23/17 22:00 12/30/17 09:31 Trusopt 2% OU 1 drop BID JONAS Administration Furosemide 40 mg 12/24/17 10:00 12/30/17 09:30 Lasix - PO 40 mg DAILY JONAS Administration Hydroxychloroquine Sulfate 200 mg 12/24/17 14:45 12/30/17 09:30 Plaquenil - PO 200 mg DAILY JONAS Administration Aztreonam 2 gm/ Dextrose 100 mls @ 100 mls/hr 12/28/17 18:00 12/30/17 09:29 IVPB 100 mls/hr Q8H-IV JONAS Administration Protocol Vancomycin HCl 1,250 mg/ 250 mls @ 250 mls/2 hr 12/28/17 12:00 12/30/17 12:31 Dextrose IVPB 250 mls/2 hr Q24H JONAS Administration Insulin Aspart 1 vial 12/23/17 16:30 12/30/17 11:54 Novolog Vial Sliding Scale - SQ 2 units ACHS JONAS Administration Protocol Insulin Detemir 20 units 12/24/17 07:00 12/30/17 06:21 Levemir Vial SQ 20 unit AM JONAS Administration Latanoprost 1 drop 12/23/17 22:00 12/29/17 22:03 Xalatan 0.005% Eye Drops - OU 1 drop HS JONAS Administration Potassium Chloride 40 meq 12/23/17 16:00 12/30/17 09:30 K-Dur - PO 40 meq DAILY JONAS Administration Prednisone 20 mg 12/24/17 10:00 12/30/17 09:30 Deltasone - PO 20 mg DAILY JONAS Administration Timolol Maleate 1 drop 12/23/17 22:00 12/30/17 09:31 Timoptic 0.5% OU 1 drop BID JONAS Administration Hematoma, stable,leg improving PNA ( Post Influenza) Acute LLE DVT PAF s/p PPM H/o CVA HTN Renal artery stenosis CAD APLS ( as per outside verbal report) Prolonged PTT in the setting of APLS -c/w lovenox -monitor crit -normal mixing studies -f/u todays comp. -leg elevation -abx per ID -pain control -pt eval.
[2017-12-30 12:51] LABS: BLOOD UREA NITROGEN 23 mg/dL (7-18); CREATININE 0.9 mg/dL (0.55-1.02); GLUCOSE,RANDOM 137 mg/dL (74-106); POTASSIUM 4.4 mmol/L (3.5-5.1); SODIUM 142 mmol/L (136-145)
[2017-12-30 12:52] LABS: ANION GAP 6 (8-16); CALCIUM 7.8 mg/dL (8.5-10.1); CHLORIDE 109 mmol/L (98-107); CO2 27 mmol/L (21-32)
[2017-12-30 12:53] LABS: ALBUMIN 2.1 g/dl (3.4-5.0); ALK PHOS 70 U/L (45-117); BILIRUBIN,TOTAL 0.4 mg/dL (0.2-1.0); SGOT/AST 54 U/L (15-37); SGPT/ALT 152 U/L (12-78)
--- NOTE | 2017-12-30 13:03 | PN ---
Progress Note, Physician History of Present Illness: seen and examined today in nad. states she is feeling better. pain is better, swelling improved. - Current Medication List Current Medications: Active Medications Acetaminophen (Tylenol -) 325 mg PO Q6H PRN PRN Reason: PAIN LEVEL 6-10 Last Admin: 12/29/17 11:32 Dose: 325 mg Carvedilol (Coreg -) 25 mg PO BID [facility] Last Admin: 12/30/17 09:30 Dose: 25 mg Clopidogrel Bisulfate (Plavix -) 75 mg PO DAILY [facility] Last Admin: 12/30/17 09:30 Dose: 75 mg Colchicine (Colcrys -) 0.6 mg PO BID [facility] Last Admin: 12/30/17 09:30 Dose: 0.6 mg Diltiazem HCl (Cardizem Cd -) 240 mg PO DAILY [facility] Last Admin: 12/30/17 09:30 Dose: 240 mg Dorzolamide HCl (Trusopt 2%) 1 drop OU BID [facility] Last Admin: 12/30/17 09:31 Dose: 1 drop Furosemide (Lasix -) 40 mg PO DAILY [facility] Last Admin: 12/30/17 09:30 Dose: 40 mg Hydroxychloroquine Sulfate (Plaquenil -) 200 mg PO DAILY [facility] Last Admin: 12/30/17 09:30 Dose: 200 mg Aztreonam 2 gm/ Dextrose 100 mls @ 100 mls/hr IVPB Q8H-IV JONAS PRN Reason: Protocol Last Admin: 12/30/17 09:29 Dose: 100 mls/hr Vancomycin HCl 1,250 mg/ (Dextrose) 250 mls @ 250 mls/2 hr IVPB Q24H [facility] Last Admin: 12/30/17 12:31 Dose: 250 mls/2 hr Insulin Aspart (Novolog Vial Sliding Scale -) 1 vial SQ ACHS JONAS PRN Reason: Protocol Last Admin: 12/30/17 11:54 Dose: 2 units Insulin Detemir (Levemir Vial) 20 units SQ AM [facility] Last Admin: 12/30/17 06:21 Dose: 20 unit Latanoprost (Xalatan 0.005% Eye Drops -) 1 drop OU HS [facility] Last Admin: 12/29/17 22:03 Dose: 1 drop Potassium Chloride (K-Dur -) 40 meq PO DAILY [facility] Last Admin: 12/30/17 09:30 Dose: 40 meq Prednisone (Deltasone -) 20 mg PO DAILY [facility] Last Admin: 12/30/17 09:30 Dose: 20 mg Timolol Maleate (Timoptic 0.5%) 1 drop OU BID [facility] Last Admin: 12/30/17 09:31 Dose: 1 drop - Objective Vital Signs: Vital Signs Temperature 97.5 F L 12/30/17 09:00 Pulse Rate 60 12/30/17 09:00 Respiratory Rate 18 12/30/17 09:00 Blood Pressure 145/73 12/30/17 09:00 O2 Sat by Pulse Oximetry (%) 97 12/30/17 09:00 Constitutional: Yes: No Distress, Calm Eyes: Yes: Conjunctiva Clear, EOM Intact, PERRL HENT: Yes: Atraumatic, Normocephalic Neck: Yes: Supple, Trachea Midline Cardiovascular: Yes: Regular Rate and Rhythm, S1, S2. No: Bradycardia, Tachycardia, Pulse Irregular, Bruit, JVD, Gallop, Murmur, Rub, S3, S4, Varicosities Respiratory: Yes: Regular, Diminished. No: Rales, Rhonchi, SOB, Wheezes Gastrointestinal: Yes: Normal Bowel Sounds, Soft ...Rectal Exam: Yes: WNL Genitourinary: Yes: WNL Edema: LLE: 1+ Peripheral Pulses WNL: Yes Neurological: Yes: Alert, Oriented Psychiatric: Yes: Alert, Oriented Labs: CBC, BMP 12/30/17 09:26 12/30/17 06:00 INR, PTT INR 1.43 (0.82-1.09) H 12/30/17 09:26 Fibrinogen 460.0 mg/dL (238-498) 12/28/17 06:00 - ....Imaging Chest X-ray: Report Reviewed, Image Reviewed EKG: Report Reviewed, Image Reviewed Other: Report Reviewed, Image Reviewed Assessment/Plan MP: Anticardiolipin Ab + Suspected connective tissue disorder Acute DVT Bilateral PNA (post-influenza) PAF s/p PPM, prior CVA hematoma left lower extremity REC: LLE hematoma seems to be improving H/H stable Given high risk of thrombosis due to underlying hypercoag state, agree with continued AC with careful observation of lower extremity, H/H with transfusion as needed. PT evaluation Holding statin as LFTs are rising.
--- NOTE | 2017-12-30 13:10 | PN ---
Progress Note (short form) - Note Progress Note: PULMONARY Still with LLE pain but denies shortness of breath, cough or chest pain. Last Vital Signs Temp Pulse Resp BP Pulse Ox 97.5 F L 60 18 145/73 97 12/30/17 09:00 12/30/17 09:00 12/30/17 09:00 12/30/17 09:00 12/30/17 09:00 Gen: NAD at rest Heart: RRR Lung: decreased breath sounds at the bases Abd: soft, nontender Ext: no edema CBC, BMP 12/30/17 09:26 12/30/17 06:00 Active Medications Acetaminophen (Tylenol -) 325 mg PO Q6H PRN PRN Reason: PAIN LEVEL 6-10 Last Admin: 12/29/17 11:32 Dose: 325 mg Carvedilol (Coreg -) 25 mg PO BID [facility] Last Admin: 12/30/17 09:30 Dose: 25 mg Clopidogrel Bisulfate (Plavix -) 75 mg PO DAILY [facility] Last Admin: 12/30/17 09:30 Dose: 75 mg Colchicine (Colcrys -) 0.6 mg PO BID [facility] Last Admin: 12/30/17 09:30 Dose: 0.6 mg Diltiazem HCl (Cardizem Cd -) 240 mg PO DAILY [facility] Last Admin: 12/30/17 09:30 Dose: 240 mg Dorzolamide HCl (Trusopt 2%) 1 drop OU BID [facility] Last Admin: 12/30/17 09:31 Dose: 1 drop Furosemide (Lasix -) 40 mg PO DAILY [facility] Last Admin: 12/30/17 09:30 Dose: 40 mg Hydroxychloroquine Sulfate (Plaquenil -) 200 mg PO DAILY [facility] Last Admin: 12/30/17 09:30 Dose: 200 mg Aztreonam 2 gm/ Dextrose 100 mls @ 100 mls/hr IVPB Q8H-IV JONAS PRN Reason: Protocol Last Admin: 12/30/17 09:29 Dose: 100 mls/hr Vancomycin HCl 1,250 mg/ (Dextrose) 250 mls @ 250 mls/2 hr IVPB Q24H [facility] Last Admin: 12/30/17 12:31 Dose: 250 mls/2 hr Insulin Aspart (Novolog Vial Sliding Scale -) 1 vial SQ ACHS [facility] PRN Reason: Protocol Last Admin: 12/30/17 11:54 Dose: 2 units Insulin Detemir (Levemir Vial) 20 units SQ AM [facility] Last Admin: 12/30/17 06:21 Dose: 20 unit Latanoprost (Xalatan 0.005% Eye Drops -) 1 drop OU HS [facility] Last Admin: 12/29/17 22:03 Dose: 1 drop Potassium Chloride (K-Dur -) 40 meq PO DAILY [facility] Last Admin: 12/30/17 09:30 Dose: 40 meq Prednisone (Deltasone -) 20 mg PO DAILY [facility] Last Admin: 12/30/17 09:30 Dose: 20 mg Timolol Maleate (Timoptic 0.5%) 1 drop OU BID [facility] Last Admin: 12/30/17 09:31 Dose: 1 drop A/P Acute LLE DVT Pneumonia Paroxysmal Atrial Fibrillation s/p PPM h/o CVA HTN CAD (+) anticardiolipin AB (SLE negative, markedly positive MEGHANN) - continue antibiotics per ID - continue anticoagulation - O2 to keep SpO2 >90% - incentive spirometry - leg elevation
[2017-12-30] MEDS: LATANOPROST 0.005% OPHTH SOLN 2.5ML BOTTLE OU SCH (21:01)
--- NOTE | 2017-12-30 22:02 | PN ---
Progress Note, Physician History of Present Illness: Pt's glucose has been fluctuating - Current Medication List Current Medications: Active Medications Acetaminophen (Tylenol -) 325 mg PO Q6H PRN PRN Reason: PAIN LEVEL 6-10 Last Admin: 12/29/17 11:32 Dose: 325 mg Carvedilol (Coreg -) 25 mg PO BID [facility] Last Admin: 12/30/17 21:01 Dose: 25 mg Clopidogrel Bisulfate (Plavix -) 75 mg PO DAILY [facility] Last Admin: 12/30/17 09:30 Dose: 75 mg Colchicine (Colcrys -) 0.6 mg PO BID [facility] Last Admin: 12/30/17 21:01 Dose: 0.6 mg Diltiazem HCl (Cardizem Cd -) 240 mg PO DAILY [facility] Last Admin: 12/30/17 09:30 Dose: 240 mg Dorzolamide HCl (Trusopt 2%) 1 drop OU BID [facility] Last Admin: 12/30/17 21:01 Dose: 1 drop Furosemide (Lasix -) 40 mg PO DAILY [facility] Last Admin: 12/30/17 09:30 Dose: 40 mg Hydroxychloroquine Sulfate (Plaquenil -) 200 mg PO DAILY [facility] Last Admin: 12/30/17 09:30 Dose: 200 mg Aztreonam 2 gm/ Dextrose 100 mls @ 100 mls/hr IVPB Q8H-IV JONAS PRN Reason: Protocol Last Admin: 12/30/17 17:12 Dose: 100 mls/hr Vancomycin HCl 1,250 mg/ (Dextrose) 250 mls @ 250 mls/2 hr IVPB Q24H [facility] Last Admin: 12/30/17 12:31 Dose: 250 mls/2 hr Insulin Aspart (Novolog Vial Sliding Scale -) 1 vial SQ ACHS [facility] PRN Reason: Protocol Last Admin: 12/30/17 21:00 Dose: 6 units Insulin Detemir (Levemir Vial) 20 units SQ AM [facility] Last Admin: 12/30/17 06:21 Dose: 20 unit Latanoprost (Xalatan 0.005% Eye Drops -) 1 drop OU HS [facility] Last Admin: 12/30/17 21:01 Dose: 1 drop Potassium Chloride (K-Dur -) 40 meq PO DAILY [facility] Last Admin: 12/30/17 09:30 Dose: 40 meq Prednisone (Deltasone -) 20 mg PO DAILY [facility] Last Admin: 12/30/17 09:30 Dose: 20 mg Timolol Maleate (Timoptic 0.5%) 1 drop OU BID [facility] Last Admin: 12/30/17 21:01 Dose: 1 drop - Objective Vital Signs: Vital Signs Temperature 97.9 F 12/30/17 18:21 Pulse Rate 60 12/30/17 18:21 Respiratory Rate 20 12/30/17 20:46 Blood Pressure 145/60 12/30/17 18:21 O2 Sat by Pulse Oximetry (%) 97 12/30/17 20:46 Constitutional: Yes: Well Nourished Neck: Yes: WNL, Supple Cardiovascular: Yes: WNL, Regular Rate and Rhythm Respiratory: Yes: WNL, Regular, CTA Bilaterally Gastrointestinal: Yes: WNL, Normal Bowel Sounds, Soft Extremities: Yes: Other ((+) ecchymosis LLE) Edema: LLE: Trace Labs: CBC, BMP 12/30/17 09:26 12/30/17 06:00 INR, PTT INR 1.43 (0.82-1.09) H 12/30/17 09:26 Fibrinogen 460.0 mg/dL (238-498) 12/28/17 06:00 Problem List - Problems (1) DVT (deep venous thrombosis) Assessment/Plan: Cont lovenox US of LLE showed improvement of DVT CT scan of extremity showed large hematoma in calf Code(s): I82.409 - ACUTE EMBOLISM AND THOMBOS UNSP DEEP VN UNSP LOWER EXTREMITY Qualifiers: DVT location: lower extremity Affected thrombotic vein of extremity: popliteal Chronicity: acute Laterality: left Qualified Code(s): I82.432 - Acute embolism and thrombosis of left popliteal vein (2) Elevated liver enzymes Assessment/Plan: Cont to monitor LFT's US showed fatty liver Statin were stopped LFT's are trending down Code(s): R74.8 - ABNORMAL LEVELS OF OTHER SERUM ENZYMES (3) Diabetes Assessment/Plan: Cont sliding scale w/ coverage/levemir Will get endo consult Code(s): E11.9 - TYPE 2 DIABETES MELLITUS WITHOUT COMPLICATIONS Qualifiers: Diabetes mellitus type: type 2 (4) HLD (hyperlipidemia) Code(s): E78.5 - HYPERLIPIDEMIA, UNSPECIFIED (5) Hypertension Code(s): I10 - ESSENTIAL (PRIMARY) HYPERTENSION Qualifiers: Hypertension type: essential hypertension Qualified Code(s): I10 - Essential (primary) hypertension (6) Pneumonia Code(s): J18.9 - PNEUMONIA, UNSPECIFIED ORGANISM (7) Pericarditis Code(s): I31.9 - DISEASE OF PERICARDIUM, UNSPECIFIED Qualifiers: Pericarditis type: idiopathic
--- NOTE | 2017-12-30 23:13 | CONSULT ---
Consult Consult Specialty:: ENDOCRINE Referred by:: DR.ELIZABETH PENNINGTON Reason for Consultation:: DIABETES MELLITUS - History of Present Illness Chief Complaint: WEAKNESS AND DYSPNEA History of Present Illness: 72 y femal pmh dm,htn,ashd,afib,admitted with acute dvt left leg.with bilateral lung infiltrates dyspnea cough,recently dx with pericarditis pleuritis,sp pericaridiocenthesis,then treated with prednisone 20mg.d with stapering doses as well as colchicine and hydroxy chloroquine for lupus therapy. has had elevated blood sugars she denies hypoglycemia,nausea or vomiting - History Source History Provided By: Patient - Past Medical History [employer]: Yes: CVA Cardio/Vascular: Yes: AFIB, HTN, Hyperlipdemia, Other (pericarditis Pericardial effusion) Renal/: Yes: Other (Renal artery stenosis) ...: No Endocrine: Yes: Diabetes Mellitus - Past Surgical History Past Surgical History: Yes: Permanent Pacemaker - Alcohol/Substance Use Hx Alcohol Use: No - Smoking History Smoking history: Never smoked Have you smoked in the past 12 months: No Aproximately how many cigarettes per day: 5 If you are a former smoker, when did you quit?: 1993 - Social History ADL: Family Assistance History of Recent Travel: No Home Medications - Allergies Allergies/Adverse Reactions: Allergies Allergy/AdvReac Type Severity Reaction Status Date / Time aspirin Allergy Severe Verified 12/21/17 10:14 Penicillins Allergy Severe Verified 12/21/17 10:14 diclofenac Allergy Verified 12/21/17 10:14 shellfish derived Allergy Verified 12/21/17 10:14 lactose AdvReac Verified 12/21/17 10:14 iv contrast Allergy Uncoded 12/21/17 10:14 - Home Medications Home Medications: Ambulatory Orders Atorvastatin Ca [Lipitor] 40 mg PO HS 10/09/17 Clopidogrel Bisulfate [Plavix -] 75 mg PO DAILY 10/09/17 Colchicine 0.6 mg PO BID 10/09/17 Diltiazem HCl [Diltiazem 24Hr Cd] 240 mg PO DAILY 10/09/17 Metoclopramide HCl [Reglan] 5 mg PO DAILY PRN 10/09/17 Furosemide [Lasix -] 40 mg PO DAILY 12/11/17 Insulin Aspart [Novolog Flexpen] 0 unit SQ PRN 12/11/17 Insulin Glargine,Hum.rec.anlog [Lantus] 20 unit SQ AM 12/11/17 Linagliptin/Metformin HCl [Jentadueto 2.5 mg-500 mg Tab] 1 each PO BIDAC predniSONE [Deltasone -] 20 mg PO BID 12/11/17 Alprazolam [Xanax] 0.5 mg PO BID PRN 12/12/17 Ubidecarenone [Coq-10] 200 mg PO DAILY 12/12/17 Carvedilol [Coreg -] 25 mg PO BID tablet 12/13/17 Dorzolamide HCl [Trusopt 2% -] 1 drop OU BID drops 12/13/17 Latanoprost 0.005% Eye Drops [Xalatan 0.005% Eye Drops -] 1 drop OU HS drops Timolol 0.5% [Timoptic 0.5%] 1 drop OU BID drops 12/13/17 Warfarin Na [Coumadin -] 1 mg PO Q2D 12/21/17 Warfarin Sodium [Coumadin] 2 mg PO Q2D 12/21/17 Review of Systems - Review of Systems Constitutional: reports: Lethargy, Weakness Eyes: reports: No Symptoms HENT: reports: No Symptoms Neck: reports: No Symptoms Cardiovascular: reports: Palpitations, Shortness of Breath Respiratory: reports: Cough, Exercise Intolerance, SOB, SOB on Exertion Gastrointestinal: reports: Bloating Genitourinary: reports: No Symptoms Breasts: reports: No Symptoms Reported Musculoskeletal: reports: No Symptoms, Muscle Cramps Integumentary: reports: No Symptoms Neurological: reports: Numbness, Unsteady Gait, Weakness Endocrine: reports: Unexplained Weight Gain Physical Exam Vital Signs: Vital Signs Temperature 97.9 F 12/30/17 18:21 Pulse Rate 60 12/30/17 18:21 Respiratory Rate 20 12/30/17 20:46 Blood Pressure 145/60 12/30/17 18:21 O2 Sat by Pulse Oximetry (%) 97 12/30/17 20:46 Constitutional: Yes: Anxious Eyes: Yes: EOM Intact HENT: Yes: Normocephalic Neck: Yes: Trachea Midline Cardiovascular: Yes: Regular Rate and Rhythm Respiratory: Yes: Cough, SOB, Tachypnea Gastrointestinal: Yes: Soft ...Rectal Exam: Yes: Deferred Renal/: Yes: WNL Musculoskeletal: Yes: WNL Extremities: Yes: WNL Edema: No Neurological: Yes: Alert, Oriented Psychiatric: Yes: Alert, Oriented Labs: CBC, BMP 12/30/17 09:26 12/30/17 06:00 Problem List - Problems (1) Diabetes 1.5, managed as type 2 Code(s): E10.9 - TYPE 1 DIABETES MELLITUS WITHOUT COMPLICATIONS (2) Antiphospholipid antibody syndrome Code(s): D68.61 - ANTIPHOSPHOLIPID SYNDROME (3) Bilateral pneumonia Code(s): J18.9 - PNEUMONIA, UNSPECIFIED ORGANISM (4) DVT (deep venous thrombosis) Code(s): I82.409 - ACUTE EMBOLISM AND THOMBOS UNSP DEEP VN UNSP LOWER EXTREMITY Qualifiers: DVT location: lower extremity Affected thrombotic vein of extremity: popliteal Chronicity: acute Laterality: left Qualified Code(s): I82.432 - Acute embolism and thrombosis of left popliteal vein (5) Elevated liver enzymes Code(s): R74.8 - ABNORMAL LEVELS OF OTHER SERUM ENZYMES (6) Lupus (systemic lupus erythematosus) Code(s): M32.9 - SYSTEMIC LUPUS ERYTHEMATOSUS, UNSPECIFIED Assessment/Plan Current Active Problems diabetes mellitus hyperglycemia; diabetic neuropathy Antiphospholipid antibody syndrome (Acute) Bilateral pneumonia (Acute) DVT (deep venous thrombosis) (Acute) Elevated liver enzymes (Acute) Jaundice (Acute) Lupus (systemic lupus erythematosus) (Acute) Pneumonia (Acute) Abnormal Lab Results 12/27/17 12/27/17 12/30/17 11:40 15:30 06:00 RBC Hgb Hct RDW PT with INR INR PTT (Actin FS) PTT Patient/Cntrl Mix 30.4 H Chloride 109 H Anion Gap 6 L BUN 23 H Random Glucose 137 H Calcium 7.8 L AST 54 H ALT 152 H Total Protein 5.0 L Albumin 2.1 L Vancomycin Pre-Dose Crossmatch See Detail 12/30/17 12/30/17 12/30/17 09:26 09:26 10:58 RBC 3.05 L Hgb 8.7 L Hct 27.3 L RDW 17.8 H PT with INR 16.20 H INR 1.43 H PTT (Actin FS) 35.2 H PTT Patient/Cntrl Mix Chloride Anion Gap BUN Random Glucose Calcium AST ALT Total Protein Albumin Vancomycin Pre-Dose 12.985 H Crossmatch plan: bgm qid novolog insulin doses levemir 35 units am levemir 20 units hs Laboratory Tests 12/30/17 12/30/17 12/30/17 06:00 06:18 11:06 Sodium 142 Potassium 4.4 Chloride 109 H Carbon Dioxide 27 Anion Gap 6 L BUN 23 H Creatinine 0.9 Creat Clearance w eGFR > 60 POC Glucometer 156 168 12/30/17 12/30/17 16:18 20:56 Sodium Potassium Chloride Carbon Dioxide Anion Gap BUN Creatinine Creat Clearance w eGFR POC Glucometer 417 283 [id number]
[2017-12-31] MEDS: AZTREONAM 2 GM in DEXTROSE 5%-WATER - 100 ML IVPB SCH ×3 (01:01→17:08)
[2017-12-31] MEDS: INSULIN SLIDING SCALE (NOVOLOG) 1 VIAL SQ SCH ×4 (06:04→21:02)
[2017-12-31] MEDS: INSULIN DETEMIR 100 UNITS/ML MDV SQ SCH ×3 (06:53→21:03)
[2017-12-31] MEDS ORDERED: INSULIN DETEMIR 100 UNITS/ML MDV SQ ONE ×2 (06:56→19:23)
[2017-12-31 07:51] LABS: HEMATOCRIT 26.3 % (32.4-45.2); HEMOGLOBIN 8.6 GM/dL (10.7-15.3); MCHC 32.6 g/dl (32.0-36.0); MEAN PLT VOLUME 8.4 fl (7.5-11.1); PLATELET COUNT 166 K/MM3 (134-434); RBC 2.95 M/mm3 (3.60-5.2); RDW 17.4 % (11.6-15.6); WHITE BLOOD COUNT 5.4 K/mm3 (4.0-10.0)
[2017-12-31 08:06] LABS: INR 1.22 (0.82-1.09); PROTHROMBIN TIME (PATIENT) 13.8 SEC (9.98-11.88)
[2017-12-31 08:09] LABS: ACTIVATED PTT 28.4 SECONDS (26.9-34.4)
--- NOTE | 2017-12-31 09:00 | PN ---
Progress Note, Physician Chief Complaint: denies chest pain or SOB - Current Medication List Current Medications: Active Medications Acetaminophen (Tylenol -) 325 mg PO Q6H PRN PRN Reason: PAIN LEVEL 6-10 Last Admin: 12/29/17 11:32 Dose: 325 mg Carvedilol (Coreg -) 25 mg PO BID [facility] Last Admin: 12/30/17 21:01 Dose: 25 mg Clopidogrel Bisulfate (Plavix -) 75 mg PO DAILY [facility] Last Admin: 12/30/17 09:30 Dose: 75 mg Colchicine (Colcrys -) 0.6 mg PO BID [facility] Last Admin: 12/30/17 21:01 Dose: 0.6 mg Diltiazem HCl (Cardizem Cd -) 240 mg PO DAILY [facility] Last Admin: 12/30/17 09:30 Dose: 240 mg Dorzolamide HCl (Trusopt 2%) 1 drop OU BID [facility] Last Admin: 12/30/17 21:01 Dose: 1 drop Furosemide (Lasix -) 40 mg PO DAILY [facility] Last Admin: 12/30/17 09:30 Dose: 40 mg Hydroxychloroquine Sulfate (Plaquenil -) 200 mg PO DAILY [facility] Last Admin: 12/30/17 09:30 Dose: 200 mg Aztreonam 2 gm/ Dextrose 100 mls @ 100 mls/hr IVPB Q8H-IV [facility] PRN Reason: Protocol Last Admin: 12/31/17 01:01 Dose: 100 mls/hr Vancomycin HCl 1,250 mg/ (Dextrose) 250 mls @ 250 mls/2 hr IVPB Q24H [facility] Last Admin: 12/30/17 12:31 Dose: 250 mls/2 hr Insulin Aspart (Novolog Vial Sliding Scale -) 1 vial SQ ACHS [facility] PRN Reason: Protocol Last Admin: 12/31/17 06:04 Dose: Not Given Insulin Detemir (Levemir Vial) 35 units SQ AM [facility] Last Admin: 12/31/17 06:56 Dose: Not Given Insulin Detemir (Levemir Vial) 20 units SQ HS [facility] Latanoprost (Xalatan 0.005% Eye Drops -) 1 drop OU HS [facility] Last Admin: 12/30/17 21:01 Dose: 1 drop Potassium Chloride (K-Dur -) 40 meq PO DAILY [facility] Last Admin: 12/30/17 09:30 Dose: 40 meq Prednisone (Deltasone -) 20 mg PO DAILY [facility] Last Admin: 12/30/17 09:30 Dose: 20 mg Timolol Maleate (Timoptic 0.5%) 1 drop OU BID [facility] Last Admin: 12/30/17 21:01 Dose: 1 drop - Objective Vital Signs: Vital Signs Temperature 97.5 F L 12/31/17 05:25 Pulse Rate 63 12/31/17 05:25 Respiratory Rate 20 12/31/17 05:25 Blood Pressure 165/72 12/31/17 05:25 O2 Sat by Pulse Oximetry (%) 97 12/30/17 20:46 Constitutional: Yes: Calm Cardiovascular: Yes: Regular Rate and Rhythm Respiratory: Yes: CTA Bilaterally Gastrointestinal: Yes: Soft Edema: No Neurological: Yes: Alert Labs: CBC, BMP 12/31/17 06:10 12/30/17 06:00 INR, PTT INR 1.22 (0.82-1.09) H 12/31/17 06:10 Fibrinogen 460.0 mg/dL (238-498) 12/28/17 06:00 Laboratory Tests 12/30/17 12/31/17 12/31/17 06:00 06:10 06:10 WBC 5.4 Hgb 8.6 L Plt Count 166 INR 1.22 H Creatinine 0.9 Assessment/Plan Assessment/Plan IMP: Anticardiolipin Ab + Suspected connective tissue disorder Acute DVT Bilateral PNA (post-influenza) PAF s/p PPM, prior CVA hematoma left lower extremity REC: LLE hematoma improving H/H stable Given high risk of thrombosis due to underlying hypercoag state, agree with continued AC with careful observation of lower extremity, H/H with transfusion as needed. PT evaluation Holding statin as LFTs are rising.
[2017-12-31] MEDS ORDERED: PT OWN MED DRAWER 7, Y5N ONE ×2 (09:46→17:06)
[2017-12-31] MEDS: CLOPIDOGREL BISULFATE 75 MG TABLET (FP) PO SCH (09:47)
[2017-12-31] MEDS: COLCHICINE 0.6 MG TABLET (FP) PO SCH ×2 (09:47→21:02)
[2017-12-31] MEDS: TIMOLOL 0.5% OPHTHALMIC SOL 5 ML BOTTLE OU SCH ×2 (09:48→21:01)
[2017-12-31] MEDS: DORZOLAMIDE 2% HCL OPHTHALMIC SOLUTION 10 ML BOTTLE OU SCH ×2 (09:48→21:01)
[2017-12-31] MEDS: CARVEDILOL 25 MG TABLET (FP) PO SCH ×2 (09:48→21:02)
[2017-12-31] MEDS: HYDROXYCHLOROQUINE SO4 200 MG TABLET (FP) PO SCH (09:48)
[2017-12-31] MEDS: FUROSEMIDE 40 MG TABLET (FP) PO SCH (09:48)
[2017-12-31] MEDS: POTASSIUM CHLORIDE TABS 20 MEQ TABLET.ER (FP) PO SCH (09:48)
[2017-12-31] MEDS: predniSONE 20 MG TABLET (UD) PO SCH (09:48)
--- NOTE | 2017-12-31 10:31 | PN ---
Progress Note (short form) - Note Progress Note: pt seen and examined able to do some bed side exercises taught by PT. Walked to the bathroom. She feels better by the day. O/E: General: NAD HEENT: NCAT Cor: RRR Lungs: CTA b/l Abd: Soft LE: left:stable, mild swelling present Last Vital Signs Temp Pulse Resp BP Pulse Ox 97.5 F L 63 20 165/72 97 12/31/17 05:25 12/31/17 05:25 12/31/17 05:25 12/31/17 05:25 12/30/17 20:46 CBC, BMP 12/31/17 06:10 12/30/17 06:00 Current Medications Generic Name Dose Route Start Last Admin Trade Name Freq PRN Reason Stop Dose Admin Acetaminophen 325 mg 12/23/17 15:56 12/29/17 11:32 Tylenol - PO 325 mg Q6H PRN Administration PAIN LEVEL 6-10 Carvedilol 25 mg 12/23/17 22:00 12/31/17 09:48 Coreg - PO 25 mg BID [facility]ON[facility] Administration Clopidogrel Bisulfate 75 mg 12/24/17 10:00 12/31/17 09:47 Plavix - PO 75 mg DAILY [facility] Administration Colchicine 0.6 mg 12/24/17 10:00 12/31/17 09:47 Colcrys - PO 0.6 mg BID [facility] Administration Diltiazem HCl 240 mg 12/24/17 10:00 12/31/17 09:48 Cardizem Cd - PO 240 mg DAILY [facility] Administration Dorzolamide HCl 1 drop 12/23/17 22:00 12/31/17 09:48 Trusopt 2% OU 1 drop BID [facility] Administration Enoxaparin Sodium 70 mg 12/31/17 11:00 Lovenox - SQ BID [facility] Furosemide 40 mg 12/24/17 10:00 12/31/17 09:48 Lasix - PO 40 mg DAILY [facility] Administration Hydroxychloroquine Sulfate 200 mg 12/24/17 14:45 12/31/17 09:48 Plaquenil - PO 200 mg DAILY [facility] Administration Aztreonam 2 gm/ Dextrose 100 mls @ 100 mls/hr 12/28/17 18:00 12/31/17 09:47 IVPB 100 mls/hr Q8H-IV [facility] Administration Protocol Vancomycin HCl 1,250 mg/ 250 mls @ 250 mls/2 hr 12/28/17 12:00 12/30/17 12:31 Dextrose IVPB 250 mls/2 hr Q24H [facility] Administration Insulin Aspart 1 vial 12/23/17 16:30 12/31/17 06:04 Novolog Vial Sliding Scale - SQ Not Given ACHS [facility] Protocol Insulin Detemir 35 units 12/30/17 23:17 12/31/17 06:56 Levemir Vial SQ Not Given AM [facility]ON[facility] Insulin Detemir 20 units 12/31/17 22:00 Levemir Vial SQ HS [facility] Latanoprost 1 drop 12/23/17 22:00 12/30/17 21:01 Xalatan 0.005% Eye Drops - OU 1 drop HS [facility] Administration Potassium Chloride 40 meq 12/23/17 16:00 12/31/17 09:48 K-Dur - PO 40 meq DAILY [facility] Administration Prednisone 20 mg 12/24/17 10:00 12/31/17 09:48 Deltasone - PO 20 mg DAILY [facility] Administration Timolol Maleate 1 drop 12/23/17 22:00 12/31/17 09:48 Timoptic 0.5% OU 1 drop BID [facility] Administration Hematoma, stable,leg improving PNA ( Post Influenza) Acute LLE DVT PAF s/p PPM H/o CVA HTN Renal artery stenosis CAD APLS (as per outside verbal report) Prolonged PTT in the setting of APLS -c/w lovenox -monitor crit -normal mixing studies -leg elevation -abx per ID -pain control -LFT monitoring, will f/u, stable now -pt eval/leg elevation. doing bed side exercises.
[2017-12-31] MEDS: ENOXAPARIN NA (PORCINE) 80 MG/0.8 ML DISP.SYRIN SQ SCH ×2 (11:04→21:02)
[2017-12-31] MEDS: VANCOMYCIN 1,250 MG in DEXTROSE 5%-WATER - 250 ML IVPB SCH (11:05)
[2017-12-31 12:31] LABS: ANISOCYTOSIS 1+; MACROCYTOSIS 1+; OVALOCYTE 1+; PLATELET ESTIMATE NORMAL
--- NOTE | 2017-12-31 17:19 | PN ---
Progress Note (short form) - Note Progress Note: PULMONARY OOB TO CHAIR NOT ON O2 APPEARS COMFORTABLE VSS/AFEBRILE ANICTERIC CLEAR LUNGS S1S2 BS+ SOFT LEFT LOWER EXT WITH RADHA WRAP LABS/MEDS/NOTES/IMAGES REVIEWED Acute LLE DVT Pneumonia resolved Paroxysmal Atrial Fibrillation s/p PPM h/o CVA HTN CAD (+) anticardiolipin AB (SLE negative, markedly positive MEGHANN) - continue antibiotics per ID - continue anticoagulation - O2 to keep SpO2 >90% - incentive spirometry - leg elevation Bridgette VALENZUELA MD Problem List - Problems (1) DVT (deep venous thrombosis) Code(s): I82.409 - ACUTE EMBOLISM AND THOMBOS UNSP DEEP VN UNSP LOWER EXTREMITY Qualifiers: DVT location: lower extremity Affected thrombotic vein of extremity: popliteal Chronicity: acute Laterality: left Qualified Code(s): I82.432 - Acute embolism and thrombosis of left popliteal vein (2) Afib Code(s): I48.91 - UNSPECIFIED ATRIAL FIBRILLATION Qualifiers: Atrial fibrillation type: paroxysmal Qualified Code(s): I48.0 - Paroxysmal atrial fibrillation (3) Anticardiolipin antibody positive Code(s): R76.8 - OTHER SPECIFIED ABNORMAL IMMUNOLOGICAL FINDINGS IN SERUM (4) CHF (congestive heart failure) Code(s): I50.9 - HEART FAILURE, UNSPECIFIED (5) Diabetes Code(s): E11.9 - TYPE 2 DIABETES MELLITUS WITHOUT COMPLICATIONS Qualifiers: Diabetes mellitus type: type 2
[2017-12-31] MEDS ORDERED: INSULIN (NOVOLOG) ASPART 100 UNITS/ML 10ML VIAL ONE (19:23)
--- NOTE | 2017-12-31 20:08 | PN ---
Progress Note, Physician Chief Complaint: less dyspneac,yet sugars elevated likely steroids History of Present Illness: dm, insulin requiring,with insulin resistant comorbid risk,htn,afib,pneumonia improving clinically - Current Medication List Current Medications: Active Medications Acetaminophen (Tylenol -) 325 mg PO Q6H PRN PRN Reason: PAIN LEVEL 6-10 Last Admin: 12/29/17 11:32 Dose: 325 mg Carvedilol (Coreg -) 25 mg PO BID [facility] Last Admin: 12/31/17 09:48 Dose: 25 mg Clopidogrel Bisulfate (Plavix -) 75 mg PO DAILY [facility] Last Admin: 12/31/17 09:47 Dose: 75 mg Colchicine (Colcrys -) 0.6 mg PO BID [facility] Last Admin: 12/31/17 09:47 Dose: 0.6 mg Diltiazem HCl (Cardizem Cd -) 240 mg PO DAILY [facility] Last Admin: 12/31/17 09:48 Dose: 240 mg Dorzolamide HCl (Trusopt 2%) 1 drop OU BID [facility] Last Admin: 12/31/17 09:48 Dose: 1 drop Enoxaparin Sodium (Lovenox -) 70 mg SQ BID [facility] Last Admin: 12/31/17 11:04 Dose: 70 mg Furosemide (Lasix -) 40 mg PO DAILY [facility] Last Admin: 12/31/17 09:48 Dose: 40 mg Hydroxychloroquine Sulfate (Plaquenil -) 200 mg PO DAILY [facility] Last Admin: 12/31/17 09:48 Dose: 200 mg Aztreonam 2 gm/ Dextrose 100 mls @ 100 mls/hr IVPB Q8H-IV [facility] PRN Reason: Protocol Last Admin: 12/31/17 17:08 Dose: 100 mls/hr Vancomycin HCl 1,250 mg/ (Dextrose) 250 mls @ 250 mls/2 hr IVPB Q24H [facility] Last Admin: 12/31/17 11:05 Dose: 250 mls/2 hr Insulin Aspart (Novolog Vial Sliding Scale -) 1 vial SQ ACHS [facility] PRN Reason: Protocol Last Admin: 12/31/17 17:05 Dose: 12 units Insulin Detemir (Levemir Vial) 45 units SQ AM [facility] Insulin Detemir (Levemir Vial) 15 units SQ HS [facility] Latanoprost (Xalatan 0.005% Eye Drops -) 1 drop OU HS [facility] Last Admin: 12/30/17 21:01 Dose: 1 drop Potassium Chloride (K-Dur -) 40 meq PO DAILY [facility] Last Admin: 12/31/17 09:48 Dose: 40 meq Prednisone (Deltasone -) 20 mg PO DAILY [facility] Last Admin: 12/31/17 09:48 Dose: 20 mg Timolol Maleate (Timoptic 0.5%) 1 drop OU BID [facility] Last Admin: 12/31/17 09:48 Dose: 1 drop - Objective Vital Signs: Vital Signs Temperature 97.7 F 12/31/17 15:02 Pulse Rate 60 12/31/17 15:02 Respiratory Rate 20 12/31/17 19:43 Blood Pressure 133/59 12/31/17 15:02 O2 Sat by Pulse Oximetry (%) 97 12/31/17 19:43 Constitutional: Yes: Well Nourished Eyes: Yes: EOM Intact HENT: Yes: Normocephalic Neck: Yes: Trachea Midline Cardiovascular: Yes: Regular Rate and Rhythm Respiratory: Yes: CTA Bilaterally Gastrointestinal: Yes: Normal Bowel Sounds ...Rectal Exam: Yes: Deferred Genitourinary: Yes: WNL Breast(s): Yes: WNL Musculoskeletal: Yes: WNL Edema: No Neurological: Yes: Alert, Oriented Labs: CBC, BMP 12/31/17 06:10 12/30/17 06:00 INR, PTT INR 1.22 (0.82-1.09) H 12/31/17 06:10 Fibrinogen 460.0 mg/dL (238-498) 12/28/17 06:00 Problem List - Problems (1) Diabetes 1.5, managed as type 2 Code(s): E10.9 - TYPE 1 DIABETES MELLITUS WITHOUT COMPLICATIONS (2) Antiphospholipid antibody syndrome Code(s): D68.61 - ANTIPHOSPHOLIPID SYNDROME (3) Bilateral pneumonia Code(s): J18.9 - PNEUMONIA, UNSPECIFIED ORGANISM (4) DVT (deep venous thrombosis) Code(s): I82.409 - ACUTE EMBOLISM AND THOMBOS UNSP DEEP VN UNSP LOWER EXTREMITY Qualifiers: DVT location: lower extremity Affected thrombotic vein of extremity: popliteal Chronicity: acute Laterality: left Qualified Code(s): I82.432 - Acute embolism and thrombosis of left popliteal vein (5) Elevated liver enzymes Code(s): R74.8 - ABNORMAL LEVELS OF OTHER SERUM ENZYMES (6) Lupus (systemic lupus erythematosus) Code(s): M32.9 - SYSTEMIC LUPUS ERYTHEMATOSUS, UNSPECIFIED Assessment/Plan Current Active Problems Antiphospholipid antibody syndrome (Acute) Bilateral pneumonia (Acute) DVT (deep venous thrombosis) (Acute) Diabetes 1.5, managed as type 2 (Acute) Elevated liver enzymes (Acute) Jaundice (Acute) Lupus (systemic lupus erythematosus) (Acute) Pneumonia (Acute) Abnormal Lab Results 12/31/17 12/31/17 12/31/17 06:10 06:10 06:10 RBC 2.95 L Hgb 8.6 L Hct 26.3 L RDW 17.4 H Monocytes % (Manual) 3 L Nucleated RBC % 1 H PT with INR 13.80 H INR 1.22 H Hemoglobin A1c % 7.0 H Abnormal Lab Results 12/31/17 12/31/17 12/31/17 06:10 06:10 06:10 RBC 2.95 L Hgb 8.6 L Hct 26.3 L RDW 17.4 H Monocytes % (Manual) 3 L Nucleated RBC % 1 H PT with INR 13.80 H INR 1.22 H Hemoglobin A1c % 7.0 H plan: levemir 45 units am as titration needed when resistance highest continue with bgm achs novolog doses
[2017-12-31] MEDS: LATANOPROST 0.005% OPHTH SOLN 2.5ML BOTTLE OU SCH (21:01)
--- NOTE | 2017-12-31 21:52 | PN ---
Progress Note, Physician History of Present Illness: No new complaints - Current Medication List Current Medications: Active Medications Acetaminophen (Tylenol -) 325 mg PO Q6H PRN PRN Reason: PAIN LEVEL 6-10 Last Admin: 12/29/17 11:32 Dose: 325 mg Carvedilol (Coreg -) 25 mg PO BID [facility] Last Admin: 12/31/17 21:02 Dose: 25 mg Clopidogrel Bisulfate (Plavix -) 75 mg PO DAILY [facility] Last Admin: 12/31/17 09:47 Dose: 75 mg Colchicine (Colcrys -) 0.6 mg PO BID [facility] Last Admin: 12/31/17 21:02 Dose: 0.6 mg Diltiazem HCl (Cardizem Cd -) 240 mg PO DAILY [facility] Last Admin: 12/31/17 09:48 Dose: 240 mg Dorzolamide HCl (Trusopt 2%) 1 drop OU BID [facility] Last Admin: 12/31/17 21:01 Dose: 1 drop Enoxaparin Sodium (Lovenox -) 70 mg SQ BID [facility] Last Admin: 12/31/17 21:02 Dose: 70 mg Furosemide (Lasix -) 40 mg PO DAILY [facility] Last Admin: 12/31/17 09:48 Dose: 40 mg Hydroxychloroquine Sulfate (Plaquenil -) 200 mg PO DAILY [facility] Last Admin: 12/31/17 09:48 Dose: 200 mg Aztreonam 2 gm/ Dextrose 100 mls @ 100 mls/hr IVPB Q8H-IV [facility] PRN Reason: Protocol Last Admin: 12/31/17 17:08 Dose: 100 mls/hr Vancomycin HCl 1,250 mg/ (Dextrose) 250 mls @ 250 mls/2 hr IVPB Q24H [facility] Last Admin: 12/31/17 11:05 Dose: 250 mls/2 hr Insulin Aspart (Novolog Vial Sliding Scale -) 1 vial SQ ACHS [facility] PRN Reason: Protocol Last Admin: 12/31/17 21:02 Dose: 8 units Insulin Detemir (Levemir Vial) 45 units SQ AM [facility] Insulin Detemir (Levemir Vial) 15 units SQ HS [facility] Last Admin: 12/31/17 21:03 Dose: 15 unit Latanoprost (Xalatan 0.005% Eye Drops -) 1 drop OU HS [facility] Last Admin: 12/31/17 21:01 Dose: 1 drop Potassium Chloride (K-Dur -) 40 meq PO DAILY [facility] Last Admin: 12/31/17 09:48 Dose: 40 meq Prednisone (Deltasone -) 20 mg PO DAILY [facility] Last Admin: 12/31/17 09:48 Dose: 20 mg Timolol Maleate (Timoptic 0.5%) 1 drop OU BID [facility] Last Admin: 12/31/17 21:01 Dose: 1 drop - Objective Vital Signs: Vital Signs Temperature 97.9 F 12/31/17 18:00 Pulse Rate 60 12/31/17 18:00 Respiratory Rate 20 12/31/17 19:43 Blood Pressure 132/58 12/31/17 18:00 O2 Sat by Pulse Oximetry (%) 97 12/31/17 19:43 Constitutional: Yes: Well Nourished HENT: Yes: WNL Neck: Yes: WNL, Supple Cardiovascular: Yes: WNL, Regular Rate and Rhythm Respiratory: Yes: WNL, Regular, CTA Bilaterally Gastrointestinal: Yes: WNL, Normal Bowel Sounds, Soft Extremities: Yes: Other ((+) ecchymosis LLE) Edema: LLE: 1+ Labs: CBC, BMP 12/31/17 06:10 12/30/17 06:00 INR, PTT INR 1.22 (0.82-1.09) H 12/31/17 06:10 Fibrinogen 460.0 mg/dL (238-498) 12/28/17 06:00 Problem List - Problems (1) DVT (deep venous thrombosis) Code(s): I82.409 - ACUTE EMBOLISM AND THOMBOS UNSP DEEP VN UNSP LOWER EXTREMITY Qualifiers: DVT location: lower extremity Affected thrombotic vein of extremity: popliteal Chronicity: acute Laterality: left Qualified Code(s): I82.432 - Acute embolism and thrombosis of left popliteal vein (2) Elevated liver enzymes Code(s): R74.8 - ABNORMAL LEVELS OF OTHER SERUM ENZYMES (3) Diabetes Code(s): E11.9 - TYPE 2 DIABETES MELLITUS WITHOUT COMPLICATIONS Qualifiers: Diabetes mellitus type: type 2 (4) HLD (hyperlipidemia) Code(s): E78.5 - HYPERLIPIDEMIA, UNSPECIFIED (5) Hypertension Code(s): I10 - ESSENTIAL (PRIMARY) HYPERTENSION Qualifiers: Hypertension type: essential hypertension Qualified Code(s): I10 - Essential (primary) hypertension (6) Pneumonia Code(s): J18.9 - PNEUMONIA, UNSPECIFIED ORGANISM (7) Pericarditis Code(s): I31.9 - DISEASE OF PERICARDIUM, UNSPECIFIED Qualifiers: Pericarditis type: idiopathic
[2017-12-31] MEDS ORDERED: INSULIN DETEMIR 100 UNITS/ML MDV SQ SCH ×2 (22:00)
[2018-01-01] MEDS: AZTREONAM 2 GM in DEXTROSE 5%-WATER - 100 ML IVPB SCH ×3 (01:02→17:11)
[2018-01-01] MEDS: INSULIN DETEMIR 100 UNITS/ML MDV SQ SCH ×2 (06:06→21:33)
[2018-01-01] MEDS: INSULIN SLIDING SCALE (NOVOLOG) 1 VIAL SQ SCH ×4 (06:07→21:34)
[2018-01-01] MEDS ORDERED: INSULIN DETEMIR 100 UNITS/ML MDV SQ ONE (06:12)
[2018-01-01] MEDS ORDERED: INSULIN (NOVOLOG) ASPART 100 UNITS/ML 10ML VIAL ONE ×2 (06:12→20:20)
[2018-01-01 07:52] LABS: BASO % 0.2 % (0-2.0); EOS % 1.8 % (0-4.5); HEMATOCRIT 27.7 % (32.4-45.2); HEMOGLOBIN 8.8 GM/dL (10.7-15.3); LYMPH % 32.2 % (8-40); MCH 28.4 pg (25.7-33.7); MCHC 31.8 g/dl (32.0-36.0); MEAN CELL VOLUME 89.2 fl (80-96); MEAN PLT VOLUME 8.2 fl (7.5-11.1); MONO % 7.3 % (3.8-10.2); NEUT % 58.5 % (42.8-82.8); PLATELET COUNT 209 K/MM3 (134-434); RBC 3.11 M/mm3 (3.60-5.2); RDW 17.7 % (11.6-15.6); WHITE BLOOD COUNT 5.8 K/mm3 (4.0-10.0)
[2018-01-01 08:10] LABS: INR 1.27 (0.82-1.09); PROTHROMBIN TIME (PATIENT) 14.3 SEC (9.98-11.88)
[2018-01-01 08:21] LABS: ALBUMIN 2.1 g/dl (3.4-5.0); ANION GAP 12 (8-16); BLOOD UREA NITROGEN 19 mg/dL (7-18); CALCIUM 8.8 mg/dL (8.5-10.1); CHLORIDE 108 mmol/L (98-107); CO2 23 mmol/L (21-32); CREATININE 0.8 mg/dL (0.55-1.02); GLUCOSE,RANDOM 85 mg/dL (74-106); SGOT/AST 34 U/L (15-37); SGPT/ALT 112 U/L (12-78); SODIUM 143 mmol/L (136-145)
[2018-01-01 08:23] LABS: ALK PHOS 68 U/L (45-117); BILIRUBIN,TOTAL 0.5 mg/dL (0.2-1.0); TOT PROT 5.4 g/dl (6.4-8.2)
[2018-01-01] MEDS ORDERED: PT OWN MED DRAWER 7, Y5N ONE ×2 (09:45→16:55)
[2018-01-01] MEDS: ENOXAPARIN NA (PORCINE) 80 MG/0.8 ML DISP.SYRIN SQ SCH ×2 (10:04→21:26)
[2018-01-01] MEDS: POTASSIUM CHLORIDE TABS 20 MEQ TABLET.ER (FP) PO SCH (10:04)
[2018-01-01] MEDS: COLCHICINE 0.6 MG TABLET (FP) PO SCH ×2 (10:04→21:25)
[2018-01-01] MEDS: CARVEDILOL 25 MG TABLET (FP) PO SCH ×2 (10:05→21:25)
[2018-01-01] MEDS: predniSONE 20 MG TABLET (UD) PO SCH (10:05)
[2018-01-01] MEDS: FUROSEMIDE 40 MG TABLET (FP) PO SCH (10:05)
[2018-01-01] MEDS: HYDROXYCHLOROQUINE SO4 200 MG TABLET (FP) PO SCH (10:05)
[2018-01-01] MEDS: CLOPIDOGREL BISULFATE 75 MG TABLET (FP) PO SCH (10:05)
[2018-01-01] MEDS: TIMOLOL 0.5% OPHTHALMIC SOL 5 ML BOTTLE OU SCH ×2 (10:19→21:26)
[2018-01-01] MEDS: DORZOLAMIDE 2% HCL OPHTHALMIC SOLUTION 10 ML BOTTLE OU SCH ×2 (10:20→21:27)
--- NOTE | 2018-01-01 11:07 | PN ---
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, markedly positive MEGHANN) - continue antibiotics per ID - continue anticoagulation - O2 to keep SpO2 >90% - incentive spirometry - leg elevation Bridgette VALENZUELA MD Problem List - Problems (1) DVT (deep venous thrombosis) Code(s): I82.409 - ACUTE EMBOLISM AND THOMBOS UNSP DEEP VN UNSP LOWER EXTREMITY Qualifiers: DVT location: lower extremity Affected thrombotic vein of extremity: popliteal Chronicity: acute Laterality: left Qualified Code(s): I82.432 - Acute embolism and thrombosis of left popliteal vein (2) Afib Code(s): I48.91 - UNSPECIFIED ATRIAL FIBRILLATION Qualifiers: Atrial fibrillation type: paroxysmal Qualified Code(s): I48.0 - Paroxysmal atrial fibrillation (3) Anticardiolipin antibody positive Code(s): R76.8 - OTHER SPECIFIED ABNORMAL IMMUNOLOGICAL FINDINGS IN SERUM (4) CHF (congestive heart failure) Code(s): I50.9 - HEART FAILURE, UNSPECIFIED (5) Diabetes Code(s): E11.9 - TYPE 2 DIABETES MELLITUS WITHOUT COMPLICATIONS Qualifiers: Diabetes mellitus type: type 2
--- NOTE | 2018-01-01 13:14 | PN ---
Progress Note (short form) - Note Progress Note: pt seen and examined OOB to chair having lunch O/E: General: NAD HEENT: NCAT Cor: RRR Lungs: CTA b/l Abd: Soft LE: left:stable, mild swelling present at the calf, + echymosses at the ankle, Pulses felt , skin better at the toes Last Vital Signs Temp Pulse Resp BP Pulse Ox 97.9 F 60 20 141/67 97 01/01/18 06:19 01/01/18 06:19 01/01/18 06:19 01/01/18 06:19 12/31/17 19:43 CBC, BMP 01/01/18 07:00 01/01/18 07:00 Current Medications Generic Name Dose Route Start Last Admin Trade Name Freq PRN Reason Stop Dose Admin Acetaminophen 325 mg 12/23/17 15:56 12/29/17 11:32 Tylenol - PO 325 mg Q6H PRN Administration PAIN LEVEL 6-10 Carvedilol 25 mg 12/23/17 22:00 01/01/18 10:05 Coreg - PO 25 mg BID [facility]ONAS Administration Clopidogrel Bisulfate 75 mg 12/24/17 10:00 01/01/18 10:05 Plavix - PO 75 mg DAILY [facility] Administration Colchicine 0.6 mg 12/24/17 10:00 01/01/18 10:04 Colcrys - PO 0.6 mg BID JONAS Administration Diltiazem HCl 240 mg 12/24/17 10:00 01/01/18 10:05 Cardizem Cd - PO 240 mg DAILY [facility] Administration Dorzolamide HCl 1 drop 12/23/17 22:00 01/01/18 10:20 Trusopt 2% OU 1 drop BID [facility] Administration Enoxaparin Sodium 70 mg 12/31/17 11:00 01/01/18 10:04 Lovenox - SQ 70 mg BID [facility] Administration Furosemide 40 mg 12/24/17 10:00 01/01/18 10:05 Lasix - PO 40 mg DAILY [facility] Administration Hydroxychloroquine Sulfate 200 mg 12/24/17 14:45 01/01/18 10:05 Plaquenil - PO 200 mg DAILY [facility] Administration Aztreonam 2 gm/ Dextrose 100 mls @ 100 mls/hr 12/28/17 18:00 01/01/18 10:02 IVPB 100 mls/hr Q8H-IV [facility] Administration Protocol Vancomycin HCl 1,250 mg/ 250 mls @ 250 mls/2 hr 12/28/17 12:00 12/31/17 11:05 Dextrose IVPB 250 mls/2 hr Q24H [facility] Administration Insulin Aspart 1 vial 12/23/17 16:30 01/01/18 12:42 Novolog Vial Sliding Scale - SQ Not Given ACHS [facility] Protocol Insulin Detemir 45 units 01/01/18 07:00 01/01/18 06:06 Levemir Vial SQ Not Given AM [facility]ONAS Insulin Detemir 15 units 12/31/17 22:00 12/31/17 21:03 Levemir Vial SQ 15 unit HS [facility] Administration Latanoprost 1 drop 12/23/17 22:00 12/31/17 21:01 Xalatan 0.005% Eye Drops - OU 1 drop HS [facility] Administration Potassium Chloride 40 meq 12/23/17 16:00 01/01/18 10:04 K-Dur - PO 40 meq DAILY [facility] Administration Prednisone 20 mg 12/24/17 10:00 01/01/18 10:05 Deltasone - PO 20 mg DAILY [facility] Administration Timolol Maleate 1 drop 12/23/17 22:00 01/01/18 10:19 Timoptic 0.5% OU 1 drop BID [facility] Administration Hematoma, stable,leg improving PNA ( Post Influenza) Acute LLE DVT PAF s/p PPM H/o CVA HTN Renal artery stenosis CAD APLS (as per outside verbal report) on prednisone and plaquenil per rheum steroid induced hyperglycemia Prolonged PTT in the setting of APLS -c/w lovenox -crit stable -normal mixing studies -leg elevation -abx per ID -pain control -LFT normalized -pt eval/leg elevation. doing bed side exercises.
[2018-01-01] MEDS: VANCOMYCIN 1,250 MG in DEXTROSE 5%-WATER - 250 ML IVPB SCH (17:11)
--- NOTE | 2018-01-01 19:18 | PN ---
Progress Note, Physician Chief Complaint: PT A&Ox3; no chest pain, dyspnea, or palpitations. + Body aches. History of Present Illness: 72-year-old female (b. [place]) with a history of HTN, HLD, PAF, CHF , CVA with residual right sided weakness, s/p pacemaker placement, s/p left renal artery stent; possible hypercoagulopathy, SLE, who came to ER complaining of left leg swelling and pain starting 12/20/17 at 5:30 pm. Denies any trauma to leg. Patient is mostly bed bound. She was found to have an acute DVT. Pt reports having had coronary angiogram at [facility] within the past two years that showed "25% blockage of one artery"; no PCIs performed. - Current Medication List Current Medications: Active Medications Acetaminophen (Tylenol -) 325 mg PO Q6H PRN PRN Reason: PAIN LEVEL 6-10 Last Admin: 12/29/17 11:32 Dose: 325 mg Carvedilol (Coreg -) 25 mg PO BID [facility] Last Admin: 01/01/18 10:05 Dose: 25 mg Clopidogrel Bisulfate (Plavix -) 75 mg PO DAILY [facility] Last Admin: 01/01/18 10:05 Dose: 75 mg Colchicine (Colcrys -) 0.6 mg PO BID [facility] Last Admin: 01/01/18 10:04 Dose: 0.6 mg Diltiazem HCl (Cardizem Cd -) 240 mg PO DAILY [facility] Last Admin: 01/01/18 10:05 Dose: 240 mg Dorzolamide HCl (Trusopt 2%) 1 drop OU BID [facility] Last Admin: 01/01/18 10:20 Dose: 1 drop Enoxaparin Sodium (Lovenox -) 70 mg SQ BID [facility] Last Admin: 01/01/18 10:04 Dose: 70 mg Furosemide (Lasix -) 40 mg PO DAILY [facility] Last Admin: 01/01/18 10:05 Dose: 40 mg Hydroxychloroquine Sulfate (Plaquenil -) 200 mg PO DAILY [facility] Last Admin: 01/01/18 10:05 Dose: 200 mg Insulin Aspart (Novolog Vial Sliding Scale -) 1 vial SQ ACHS [facility] PRN Reason: Protocol Last Admin: 01/01/18 18:07 Dose: 8 units Insulin Detemir (Levemir Vial) 45 units SQ AM [facility] Last Admin: 01/01/18 06:06 Dose: Not Given Insulin Detemir (Levemir Vial) 15 units SQ HS [facility] Last Admin: 12/31/17 21:03 Dose: 15 unit Latanoprost (Xalatan 0.005% Eye Drops -) 1 drop OU HS [facility] Last Admin: 12/31/17 21:01 Dose: 1 drop Potassium Chloride (K-Dur -) 40 meq PO DAILY [facility] Last Admin: 01/01/18 10:04 Dose: 40 meq Prednisone (Deltasone -) 20 mg PO DAILY [facility] Last Admin: 01/01/18 10:05 Dose: 20 mg Timolol Maleate (Timoptic 0.5%) 1 drop OU BID [facility] Last Admin: 01/01/18 10:19 Dose: 1 drop - Objective Vital Signs: Vital Signs Temperature 97.9 F 01/01/18 18:50 Pulse Rate 60 01/01/18 18:50 Respiratory Rate 18 01/01/18 18:50 Blood Pressure 131/55 01/01/18 18:50 O2 Sat by Pulse Oximetry (%) 97 12/31/17 19:43 Constitutional: Yes: Calm Eyes: Yes: WNL HENT: Yes: WNL Neck: Yes: WNL Cardiovascular: Yes: S2 (split) Respiratory: Yes: Regular Gastrointestinal: Yes: Soft ...Rectal Exam: Yes: Deferred Genitourinary: No: Anuria Breast(s): Yes: WNL Musculoskeletal: Yes: Muscle Weakness Extremities: Yes: Cool Edema: No Peripheral Pulses WNL: No Peripheral Pulses: Left Doralis Pedis: 1+, Right Dorsalis Pedis: 1+ Integumentary: Yes: WNL Neurological: Yes: WNL Psychiatric: Yes: WNL Labs: CBC, BMP 01/01/18 07:00 01/01/18 07:00 INR, PTT INR 1.27 (0.82-1.09) H 01/01/18 07:00 Fibrinogen 460.0 mg/dL (238-498) 12/28/17 06:00 Abnormal Lab Results 01/01/18 01/01/18 01/01/18 07:00 07:00 07:00 RBC 3.11 L Hgb 8.8 L Hct 27.7 L MCHC 31.8 L RDW 17.7 H PT with INR 14.30 H INR 1.27 H Chloride 108 H BUN 19 H ALT 112 H Total Protein 5.4 L Albumin 2.1 L Problem List - Problems (1) Acute on chronic systolic (congestive) heart failure Assessment/Plan: ?Nonischemic dilated cardiomyopathy; severe LV dysfunction, with normal LV size and mild AR on recent ECHO. On carvedilol, diltiazem (the latter may be necessary for AF HR control, though problematic, given severely reduced LVEF). Will consider ACEI or ARB (systolic CHF, DM, HTN), unless contraindications exist. BNP 821.9. F/u BUN/Cr, electrolytes, Is and Os, daily weight. Code(s): I50.23 - ACUTE ON CHRONIC SYSTOLIC (CONGESTIVE) HEART FAILURE (2) Antiphospholipid antibody syndrome Code(s): D68.61 - ANTIPHOSPHOLIPID SYNDROME (3) DVT (deep venous thrombosis) Assessment/Plan: admitted with subtherapeutic INR while on warfarin; new DVT. Code(s): I82.409 - ACUTE EMBOLISM AND THOMBOS UNSP DEEP VN UNSP LOWER EXTREMITY Qualifiers: DVT location: lower extremity Affected thrombotic vein of extremity: popliteal Chronicity: acute Laterality: left Qualified Code(s): I82.432 - Acute embolism and thrombosis of left popliteal vein (4) Lupus (systemic lupus erythematosus) Code(s): M32.9 - SYSTEMIC LUPUS ERYTHEMATOSUS, UNSPECIFIED (5) Afib Code(s): I48.91 - UNSPECIFIED ATRIAL FIBRILLATION Qualifiers: Atrial fibrillation type: paroxysmal Qualified Code(s): I48.0 - Paroxysmal atrial fibrillation (6) Diabetes Assessment/Plan: On Levemir and Novolog. Code(s): E11.9 - TYPE 2 DIABETES MELLITUS WITHOUT COMPLICATIONS Qualifiers: Diabetes mellitus type: type 2 (7) Fever Code(s): R50.9 - FEVER, UNSPECIFIED (8) HLD (hyperlipidemia) Code(s): E78.5 - HYPERLIPIDEMIA, UNSPECIFIED (9) HTN (hypertension) Code(s): I10 - ESSENTIAL (PRIMARY) HYPERTENSION (10) History of stent insertion of renal artery Code(s): Z98.890 - OTHER SPECIFIED POSTPROCEDURAL STATES
--- NOTE | 2018-01-01 21:05 | PN ---
Progress Note, Physician History of Present Illness: No new complaints - Current Medication List Current Medications: Active Medications Acetaminophen (Tylenol -) 325 mg PO Q6H PRN PRN Reason: PAIN LEVEL 6-10 Last Admin: 12/29/17 11:32 Dose: 325 mg Carvedilol (Coreg -) 25 mg PO BID [facility] Last Admin: 01/01/18 10:05 Dose: 25 mg Clopidogrel Bisulfate (Plavix -) 75 mg PO DAILY [facility] Last Admin: 01/01/18 10:05 Dose: 75 mg Colchicine (Colcrys -) 0.6 mg PO BID [facility] Last Admin: 01/01/18 10:04 Dose: 0.6 mg Diltiazem HCl (Cardizem Cd -) 240 mg PO DAILY [facility] Last Admin: 01/01/18 10:05 Dose: 240 mg Dorzolamide HCl (Trusopt 2%) 1 drop OU BID [facility] Last Admin: 01/01/18 10:20 Dose: 1 drop Enoxaparin Sodium (Lovenox -) 70 mg SQ BID [facility] Last Admin: 01/01/18 10:04 Dose: 70 mg Furosemide (Lasix -) 40 mg PO DAILY [facility] Last Admin: 01/01/18 10:05 Dose: 40 mg Hydroxychloroquine Sulfate (Plaquenil -) 200 mg PO DAILY [facility] Last Admin: 01/01/18 10:05 Dose: 200 mg Insulin Aspart (Novolog Vial Sliding Scale -) 1 vial SQ ACHS [facility] PRN Reason: Protocol Last Admin: 01/01/18 18:07 Dose: 8 units Insulin Detemir (Levemir Vial) 45 units SQ AM [facility] Last Admin: 01/01/18 06:06 Dose: Not Given Insulin Detemir (Levemir Vial) 15 units SQ HS [facility] Last Admin: 12/31/17 21:03 Dose: 15 unit Latanoprost (Xalatan 0.005% Eye Drops -) 1 drop OU HS [facility] Last Admin: 12/31/17 21:01 Dose: 1 drop Potassium Chloride (K-Dur -) 40 meq PO DAILY [facility] Last Admin: 01/01/18 10:04 Dose: 40 meq Prednisone (Deltasone -) 20 mg PO DAILY [facility] Last Admin: 01/01/18 10:05 Dose: 20 mg Timolol Maleate (Timoptic 0.5%) 1 drop OU BID [facility] Last Admin: 01/01/18 10:19 Dose: 1 drop - Objective Vital Signs: Vital Signs Temperature 97.9 F 01/01/18 18:50 Pulse Rate 60 01/01/18 18:50 Respiratory Rate 18 01/01/18 18:50 Blood Pressure 131/55 01/01/18 18:50 O2 Sat by Pulse Oximetry (%) 97 12/31/17 19:43 Constitutional: Yes: Well Nourished HENT: Yes: WNL Neck: Yes: WNL, Supple Cardiovascular: Yes: WNL, Regular Rate and Rhythm Respiratory: Yes: WNL, Regular, CTA Bilaterally Gastrointestinal: Yes: WNL, Normal Bowel Sounds, Soft Extremities: Yes: Other ((+) ecchymosis) Edema: LLE: 1+ Labs: CBC, BMP 01/01/18 07:00 01/01/18 07:00 INR, PTT INR 1.27 (0.82-1.09) H 01/01/18 07:00 Fibrinogen 460.0 mg/dL (238-498) 12/28/17 06:00 Problem List - Problems (1) DVT (deep venous thrombosis) Assessment/Plan: Cont lovenox US of LLE showed improvement of DVT CT scan of extremity showed large hematoma in calf Code(s): I82.409 - ACUTE EMBOLISM AND THOMBOS UNSP DEEP VN UNSP LOWER EXTREMITY Qualifiers: DVT location: lower extremity Affected thrombotic vein of extremity: popliteal Chronicity: acute Laterality: left Qualified Code(s): I82.432 - Acute embolism and thrombosis of left popliteal vein (2) Diabetes Assessment/Plan: Cont sliding scale w/ coverage/levemir Code(s): E11.9 - TYPE 2 DIABETES MELLITUS WITHOUT COMPLICATIONS Qualifiers: Diabetes mellitus type: type 2 (3) HLD (hyperlipidemia) Assessment/Plan: Cont lipitor Code(s): E78.5 - HYPERLIPIDEMIA, UNSPECIFIED (4) Hypertension Assessment/Plan: BP stable Cont antihypertensives Code(s): I10 - ESSENTIAL (PRIMARY) HYPERTENSION Qualifiers: Hypertension type: essential hypertension Qualified Code(s): I10 - Essential (primary) hypertension (5) Pneumonia Code(s): J18.9 - PNEUMONIA, UNSPECIFIED ORGANISM (6) Pericarditis Code(s): I31.9 - DISEASE OF PERICARDIUM, UNSPECIFIED Qualifiers: Pericarditis type: idiopathic
[2018-01-01] MEDS: LATANOPROST 0.005% OPHTH SOLN 2.5ML BOTTLE OU SCH (21:27)
[2018-01-02] MEDS: INSULIN DETEMIR 100 UNITS/ML MDV SQ SCH ×2 (08:16→21:00)
[2018-01-02] MEDS: INSULIN SLIDING SCALE (NOVOLOG) 1 VIAL SQ SCH ×4 (08:17→21:01)
[2018-01-02] MEDS ORDERED: PT OWN MED DRAWER 7, Y5N ONE (11:20)
[2018-01-02] MEDS: FUROSEMIDE 40 MG TABLET (FP) PO SCH (11:22)
[2018-01-02] MEDS: POTASSIUM CHLORIDE TABS 20 MEQ TABLET.ER (FP) PO SCH (11:22)
[2018-01-02] MEDS: CLOPIDOGREL BISULFATE 75 MG TABLET (FP) PO SCH (11:22)
[2018-01-02] MEDS: COLCHICINE 0.6 MG TABLET (FP) PO SCH ×2 (11:22→21:00)
[2018-01-02] MEDS: predniSONE 20 MG TABLET (UD) PO SCH (11:23)
[2018-01-02] MEDS: HYDROXYCHLOROQUINE SO4 200 MG TABLET (FP) PO SCH (11:23)
[2018-01-02] MEDS: CARVEDILOL 25 MG TABLET (FP) PO SCH ×2 (11:23→21:00)
[2018-01-02] MEDS: TIMOLOL 0.5% OPHTHALMIC SOL 5 ML BOTTLE OU SCH ×2 (11:23→21:03)
[2018-01-02] MEDS: DORZOLAMIDE 2% HCL OPHTHALMIC SOLUTION 10 ML BOTTLE OU SCH ×2 (11:24→21:03)
[2018-01-02] MEDS: ENOXAPARIN NA (PORCINE) 80 MG/0.8 ML DISP.SYRIN SQ SCH ×2 (11:24→21:01)
--- NOTE | 2018-01-02 11:27 | PN ---
Progress Note (short form) - Note Progress Note: PULMONARY OOB TO CHAIR NOT ON O2 APPEARS COMFORTABLE VSS/AFEBRILE ANICTERIC CLEAR LUNGS S1S2 BS+ SOFT LEFT LOWER EXT WITH RADHA WRAP LABS/MEDS/NOTES/IMAGES REVIEWED Acute LLE DVT Pneumonia resolved Paroxysmal Atrial Fibrillation s/p PPM h/o CVA HTN CAD (+) anticardiolipin AB (SLE negative, markedly positive MEGHANN) - continue anticoagulation - O2 to keep SpO2 >90% - incentive spirometry - leg elevation Bridgette VALENZUELA MD Problem List - Problems (1) DVT (deep venous thrombosis) Code(s): I82.409 - ACUTE EMBOLISM AND THOMBOS UNSP DEEP VN UNSP LOWER EXTREMITY Qualifiers: DVT location: lower extremity Affected thrombotic vein of extremity: popliteal Chronicity: acute Laterality: left Qualified Code(s): I82.432 - Acute embolism and thrombosis of left popliteal vein (2) Afib Code(s): I48.91 - UNSPECIFIED ATRIAL FIBRILLATION Qualifiers: Atrial fibrillation type: paroxysmal Qualified Code(s): I48.0 - Paroxysmal atrial fibrillation (3) Anticardiolipin antibody positive Code(s): R76.8 - OTHER SPECIFIED ABNORMAL IMMUNOLOGICAL FINDINGS IN SERUM (4) CHF (congestive heart failure) Code(s): I50.9 - HEART FAILURE, UNSPECIFIED (5) Diabetes Code(s): E11.9 - TYPE 2 DIABETES MELLITUS WITHOUT COMPLICATIONS Qualifiers: Diabetes mellitus type: type 2
--- NOTE | 2018-01-02 14:51 | PN ---
Progress Note, Physician History of Present Illness: No new complaints - Current Medication List Current Medications: Active Medications Acetaminophen (Tylenol -) 325 mg PO Q6H PRN PRN Reason: PAIN LEVEL 6-10 Last Admin: 12/29/17 11:32 Dose: 325 mg Carvedilol (Coreg -) 25 mg PO BID [facility] Last Admin: 01/02/18 11:23 Dose: 25 mg Clopidogrel Bisulfate (Plavix -) 75 mg PO DAILY [facility] Last Admin: 01/02/18 11:22 Dose: 75 mg Colchicine (Colcrys -) 0.6 mg PO BID [facility] Last Admin: 01/02/18 11:22 Dose: 0.6 mg Diltiazem HCl (Cardizem Cd -) 240 mg PO DAILY [facility] Last Admin: 01/02/18 11:22 Dose: 240 mg Dorzolamide HCl (Trusopt 2%) 1 drop OU BID [facility] Last Admin: 01/02/18 11:24 Dose: 1 drop Enoxaparin Sodium (Lovenox -) 70 mg SQ BID [facility] Last Admin: 01/02/18 11:24 Dose: 70 mg Furosemide (Lasix -) 40 mg PO DAILY [facility] Last Admin: 01/02/18 11:22 Dose: 40 mg Hydroxychloroquine Sulfate (Plaquenil -) 200 mg PO DAILY [facility] Last Admin: 01/02/18 11:23 Dose: 200 mg Insulin Aspart (Novolog Vial Sliding Scale -) 1 vial SQ ACHS [facility] PRN Reason: Protocol Last Admin: 01/02/18 11:38 Dose: Not Given Insulin Detemir (Levemir Vial) 45 units SQ AM [facility] Last Admin: 01/02/18 08:16 Dose: Not Given Insulin Detemir (Levemir Vial) 15 units SQ HS [facility] Last Admin: 01/01/18 21:33 Dose: 15 unit Latanoprost (Xalatan 0.005% Eye Drops -) 1 drop OU HS [facility] Last Admin: 01/01/18 21:27 Dose: 1 drop Potassium Chloride (K-Dur -) 40 meq PO DAILY [facility] Last Admin: 01/02/18 11:22 Dose: 40 meq Prednisone (Deltasone -) 20 mg PO DAILY [facility] Last Admin: 01/02/18 11:23 Dose: 20 mg Timolol Maleate (Timoptic 0.5%) 1 drop OU BID [facility] Last Admin: 01/02/18 11:23 Dose: 1 drop - Objective Vital Signs: Vital Signs Temperature 98 F 01/02/18 13:55 Pulse Rate 60 01/02/18 13:55 Respiratory Rate 20 01/02/18 13:55 Blood Pressure 143/65 01/02/18 13:55 O2 Sat by Pulse Oximetry (%) 97 01/01/18 21:00 Constitutional: Yes: Well Nourished Neck: Yes: WNL, Supple Cardiovascular: Yes: WNL, Regular Rate and Rhythm Respiratory: Yes: WNL, Regular, CTA Bilaterally Gastrointestinal: Yes: WNL, Normal Bowel Sounds, Soft Extremities: Yes: Other ((+) ecchymosis LLE) Edema: LLE: Trace Labs: CBC, BMP 01/01/18 07:00 01/01/18 07:00 INR, PTT INR 1.27 (0.82-1.09) H 01/01/18 07:00 Fibrinogen 460.0 mg/dL (238-498) 12/28/17 06:00 Problem List - Problems (1) DVT (deep venous thrombosis) Assessment/Plan: DC planning in am to STR Cont lovenox US of LLE showed improvement of DVT CT scan of extremity showed large hematoma in calf Code(s): I82.409 - ACUTE EMBOLISM AND THOMBOS UNSP DEEP VN UNSP LOWER EXTREMITY Qualifiers: DVT location: lower extremity Affected thrombotic vein of extremity: popliteal Chronicity: acute Laterality: left Qualified Code(s): I82.432 - Acute embolism and thrombosis of left popliteal vein (2) Diabetes Assessment/Plan: Cont sliding scale w/ coverage/levemir Code(s): E11.9 - TYPE 2 DIABETES MELLITUS WITHOUT COMPLICATIONS Qualifiers: Diabetes mellitus type: type 2 (3) HLD (hyperlipidemia) Assessment/Plan: Cont lipitor Code(s): E78.5 - HYPERLIPIDEMIA, UNSPECIFIED (4) Hypertension Assessment/Plan: BP stable Cont antihypertensives Code(s): I10 - ESSENTIAL (PRIMARY) HYPERTENSION Qualifiers: Hypertension type: essential hypertension Qualified Code(s): I10 - Essential (primary) hypertension (5) Pneumonia Assessment/Plan: Post influenza penumonia/bilateral pneumonia Cont meds Code(s): J18.9 - PNEUMONIA, UNSPECIFIED ORGANISM (6) Pericarditis Code(s): I31.9 - DISEASE OF PERICARDIUM, UNSPECIFIED Qualifiers: Pericarditis type: idiopathic
--- NOTE | 2018-01-02 15:43 | PN ---
Progress Note (short form) - Note Progress Note: pt seen and examined OOB to chair feeling better. O/E: General: NAD HEENT: NCAT Cor: RRR Lungs: CTA b/l Abd: Soft LE: left:stable,improved Last Vital Signs Temp Pulse Resp BP Pulse Ox 98 F 60 20 143/65 97 01/02/18 13:55 01/02/18 13:55 01/02/18 13:55 01/02/18 13:55 01/01/18 21:00 CBC, BMP 01/01/18 07:00 01/01/18 07:00 Current Medications Generic Name Dose Route Start Last Admin Trade Name Freq PRN Reason Stop Dose Admin Acetaminophen 325 mg 12/23/17 15:56 12/29/17 11:32 Tylenol - PO 325 mg Q6H PRN Administration PAIN LEVEL 6-10 Carvedilol 25 mg 12/23/17 22:00 01/02/18 11:23 Coreg - PO 25 mg BID [facility] Administration Clopidogrel Bisulfate 75 mg 12/24/17 10:00 01/02/18 11:22 Plavix - PO 75 mg DAILY [facility] Administration Colchicine 0.6 mg 12/24/17 10:00 01/02/18 11:22 Colcrys - PO 0.6 mg BID [facility] Administration Diltiazem HCl 240 mg 12/24/17 10:00 01/02/18 11:22 Cardizem Cd - PO 240 mg DAILY [facility] Administration Dorzolamide HCl 1 drop 12/23/17 22:00 01/02/18 11:24 Trusopt 2% OU 1 drop BID [facility] Administration Enoxaparin Sodium 70 mg 12/31/17 11:00 01/02/18 11:24 Lovenox - SQ 70 mg BID [facility] Administration Furosemide 40 mg 12/24/17 10:00 01/02/18 11:22 Lasix - PO 40 mg DAILY [facility] Administration Hydroxychloroquine Sulfate 200 mg 12/24/17 14:45 01/02/18 11:23 Plaquenil - PO 200 mg DAILY [facility] Administration Insulin Aspart 1 vial 12/23/17 16:30 01/02/18 11:38 Novolog Vial Sliding Scale - SQ Not Given ACHS [facility] Protocol Insulin Detemir 45 units 01/01/18 07:00 01/02/18 08:16 Levemir Vial SQ Not Given AM [facility] Insulin Detemir 15 units 12/31/17 22:00 01/01/18 21:33 Levemir Vial SQ 15 unit HS [facility] Administration Latanoprost 1 drop 12/23/17 22:00 01/01/18 21:27 Xalatan 0.005% Eye Drops - OU 1 drop HS [facility] Administration Potassium Chloride 40 meq 12/23/17 16:00 01/02/18 11:22 K-Dur - PO 40 meq DAILY [facility] Administration Prednisone 20 mg 12/24/17 10:00 01/02/18 11:23 Deltasone - PO 20 mg DAILY [facility] Administration Timolol Maleate 1 drop 12/23/17 22:00 01/02/18 11:23 Timoptic 0.5% OU 1 drop BID [facility] Administration Hematoma, stable,leg improving PNA ( Post Influenza) Acute LLE DVT PAF s/p PPM H/o CVA HTN Renal artery stenosis CAD APLS (as per outside verbal report) on prednisone and plaquenil per rheum steroid induced hyperglycemia Prolonged PTT in the setting of APLS -c/w lovenox -crit stable -normal mixing studies -leg elevation -abx per ID -pain control -LFT normalized -pt eval/leg elevation. doing bed side exercises. 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 Would be D/c on Lovenox 70mg bid. Family aware. Also recommend CBC check at SNF in 2-3d post discharge
--- NOTE | 2018-01-02 16:52 | PN ---
Progress Note, Physician Chief Complaint: PT A&Ox3; sitting up at bedside; no chest pain or dyspnea; left LE painful if moved quickly or palpated. Daughter and son are at bedside. History of Present Illness: 72-year-old female (b. [place]) with a history of HTN, HLD, PAF, CHF (reportedly diastolic, though severe systolic LV dysfunction on ECHO this admission), CVA with residual right sided weakness, s/p pacemaker placement, s/ p left renal artery stent; possible hypercoagulopathy, SLE, who came to ER complaining of left leg swelling and pain starting 12/20/17 at 5:30 pm. Denies any trauma to leg. Patient is mostly bed bound. She was found to have an acute DVT. Pt reports having had coronary angiogram at [facility] within the past two years that showed "25% blockage of one artery"; no PCIs performed. - Current Medication List Current Medications: Active Medications Acetaminophen (Tylenol -) 325 mg PO Q6H PRN PRN Reason: PAIN LEVEL 6-10 Last Admin: 12/29/17 11:32 Dose: 325 mg Carvedilol (Coreg -) 25 mg PO BID [facility] Last Admin: 01/02/18 11:23 Dose: 25 mg Clopidogrel Bisulfate (Plavix -) 75 mg PO DAILY [facility] Last Admin: 01/02/18 11:22 Dose: 75 mg Colchicine (Colcrys -) 0.6 mg PO BID [facility] Last Admin: 01/02/18 11:22 Dose: 0.6 mg Diltiazem HCl (Cardizem Cd -) 240 mg PO DAILY [facility] Last Admin: 01/02/18 11:22 Dose: 240 mg Dorzolamide HCl (Trusopt 2%) 1 drop OU BID [facility] Last Admin: 01/02/18 11:24 Dose: 1 drop Enoxaparin Sodium (Lovenox -) 70 mg SQ BID [facility] Last Admin: 01/02/18 11:24 Dose: 70 mg Furosemide (Lasix -) 40 mg PO DAILY [facility] Last Admin: 01/02/18 11:22 Dose: 40 mg Hydroxychloroquine Sulfate (Plaquenil -) 200 mg PO DAILY [facility] Last Admin: 01/02/18 11:23 Dose: 200 mg Insulin Aspart (Novolog Vial Sliding Scale -) 1 vial SQ ACHS [facility] PRN Reason: Protocol Last Admin: 01/02/18 11:38 Dose: Not Given Insulin Detemir (Levemir Vial) 45 units SQ AM [facility] Last Admin: 01/02/18 08:16 Dose: Not Given Insulin Detemir (Levemir Vial) 15 units SQ HS [facility] Last Admin: 01/01/18 21:33 Dose: 15 unit Latanoprost (Xalatan 0.005% Eye Drops -) 1 drop OU HS [facility] Last Admin: 01/01/18 21:27 Dose: 1 drop Potassium Chloride (K-Dur -) 40 meq PO DAILY [facility] Last Admin: 01/02/18 11:22 Dose: 40 meq Prednisone (Deltasone -) 20 mg PO DAILY [facility] Last Admin: 01/02/18 11:23 Dose: 20 mg Timolol Maleate (Timoptic 0.5%) 1 drop OU BID [facility] Last Admin: 01/02/18 11:23 Dose: 1 drop - Objective Vital Signs: Vital Signs Temperature 98 F 01/02/18 13:55 Pulse Rate 60 01/02/18 13:55 Respiratory Rate 20 01/02/18 13:55 Blood Pressure 143/65 01/02/18 13:55 O2 Sat by Pulse Oximetry (%) 97 01/01/18 21:00 Constitutional: Yes: Calm Eyes: Yes: WNL HENT: Yes: WNL Neck: Yes: WNL Cardiovascular: Yes: S1 (varies in intensity), S2 (split) Respiratory: Yes: Diminished Gastrointestinal: Yes: Soft ...Rectal Exam: Yes: Deferred Genitourinary: No: Anuria Breast(s): Yes: WNL Musculoskeletal: Yes: Muscle Weakness Extremities: Yes: Cool Edema: Yes Edema: LLE: 1+ Peripheral Pulses WNL: No Peripheral Pulses: Left Doralis Pedis: 1+, Right Dorsalis Pedis: 1+ Integumentary: Yes: Other (purpuric inner left ankle) Neurological: Yes: Alert, Oriented, Weakness Psychiatric: Yes: WNL Labs: CBC, BMP 01/01/18 07:00 01/01/18 07:00 INR, PTT INR 1.27 (0.82-1.09) H 01/01/18 07:00 Fibrinogen 460.0 mg/dL (238-498) 12/28/17 06:00 Problem List - Problems (1) Acute on chronic systolic (congestive) heart failure Assessment/Plan: ?Nonischemic dilated cardiomyopathy; severe LV dysfunction, with normal LV size and mild AR on recent ECHO. On carvedilol, diltiazem (the latter may be necessary for AF HR control, though problematic, given severely reduced LVEF). Renal dysfunction, s/p nephrectomy precludes use of ACEI, ARB, or RAAS presently. BNP 821.9. F/u BUN/Cr, electrolytes, Is and Os, daily weight. Code(s): I50.23 - ACUTE ON CHRONIC SYSTOLIC (CONGESTIVE) HEART FAILURE (2) Antiphospholipid antibody syndrome Code(s): D68.61 - ANTIPHOSPHOLIPID SYNDROME (3) DVT (deep venous thrombosis) Assessment/Plan: admitted with subtherapeutic INR while on warfarin; new DVT. Code(s): I82.409 - ACUTE EMBOLISM AND THOMBOS UNSP DEEP VN UNSP LOWER EXTREMITY Qualifiers: DVT location: lower extremity Affected thrombotic vein of extremity: popliteal Chronicity: acute Laterality: left Qualified Code(s): I82.432 - Acute embolism and thrombosis of left popliteal vein (4) Lupus (systemic lupus erythematosus) Code(s): M32.9 - SYSTEMIC LUPUS ERYTHEMATOSUS, UNSPECIFIED (5) Afib Code(s): I48.91 - UNSPECIFIED ATRIAL FIBRILLATION Qualifiers: Atrial fibrillation type: paroxysmal Qualified Code(s): I48.0 - Paroxysmal atrial fibrillation (6) Diabetes Assessment/Plan: On Levemir and Novolog. Code(s): E11.9 - TYPE 2 DIABETES MELLITUS WITHOUT COMPLICATIONS Qualifiers: Diabetes mellitus type: type 2 (7) Fever Code(s): R50.9 - FEVER, UNSPECIFIED (8) HLD (hyperlipidemia) Code(s): E78.5 - HYPERLIPIDEMIA, UNSPECIFIED (9) HTN (hypertension) Code(s): I10 - ESSENTIAL (PRIMARY) HYPERTENSION (10) History of stent insertion of renal artery Code(s): Z98.890 - OTHER SPECIFIED POSTPROCEDURAL STATES
[2018-01-02] MEDS: LATANOPROST 0.005% OPHTH SOLN 2.5ML BOTTLE OU SCH (21:03)
[2018-01-03] MEDS: INSULIN SLIDING SCALE (NOVOLOG) 1 VIAL SQ SCH ×4 (06:20→21:16)
[2018-01-03] MEDS ORDERED: PT OWN MED DRAWER 7, Y5N ONE ×2 (07:00→10:25)
[2018-01-03] MEDS ORDERED: INSULIN (NOVOLOG) ASPART 100 UNITS/ML 10ML VIAL ONE (08:07)
[2018-01-03] MEDS: INSULIN DETEMIR 100 UNITS/ML MDV SQ SCH (08:17)
[2018-01-03] MEDS: POTASSIUM CHLORIDE TABS 20 MEQ TABLET.ER (FP) PO SCH (10:12)
[2018-01-03] MEDS: CARVEDILOL 25 MG TABLET (FP) PO SCH ×2 (10:12→21:12)
[2018-01-03] MEDS: CLOPIDOGREL BISULFATE 75 MG TABLET (FP) PO SCH (10:12)
[2018-01-03] MEDS: COLCHICINE 0.6 MG TABLET (FP) PO SCH ×2 (10:13→21:12)
[2018-01-03] MEDS: ENOXAPARIN NA (PORCINE) 80 MG/0.8 ML DISP.SYRIN SQ SCH ×2 (10:13→21:12)
[2018-01-03] MEDS: predniSONE 20 MG TABLET (UD) PO SCH (10:13)
[2018-01-03] MEDS: FUROSEMIDE 40 MG TABLET (FP) PO SCH (10:13)
[2018-01-03] MEDS: HYDROXYCHLOROQUINE SO4 200 MG TABLET (FP) PO SCH (10:14)
[2018-01-03] MEDS: TIMOLOL 0.5% OPHTHALMIC SOL 5 ML BOTTLE OU SCH ×2 (10:16→21:10)
[2018-01-03] MEDS: DORZOLAMIDE 2% HCL OPHTHALMIC SOLUTION 10 ML BOTTLE OU SCH ×2 (10:16→21:12)
--- NOTE | 2018-01-03 11:00 | PN ---
Progress Note, Physician History of Present Illness: seen and examined today in nad. son and daughter at bedside. pt overall feeling better, has been out of bed standing with assistance. still having difficulty bearing weight. - Current Medication List Current Medications: Active Medications Acetaminophen (Tylenol -) 325 mg PO Q6H PRN PRN Reason: PAIN LEVEL 6-10 Last Admin: 12/29/17 11:32 Dose: 325 mg Carvedilol (Coreg -) 25 mg PO BID [facility] Last Admin: 01/03/18 10:12 Dose: 25 mg Clopidogrel Bisulfate (Plavix -) 75 mg PO DAILY [facility] Last Admin: 01/03/18 10:12 Dose: 75 mg Colchicine (Colcrys -) 0.6 mg PO BID [facility] Last Admin: 01/03/18 10:13 Dose: 0.6 mg Diltiazem HCl (Cardizem Cd -) 240 mg PO DAILY [facility] Last Admin: 01/03/18 10:13 Dose: 240 mg Dorzolamide HCl (Trusopt 2%) 1 drop OU BID [facility] Last Admin: 01/03/18 10:16 Dose: 1 drop Enoxaparin Sodium (Lovenox -) 70 mg SQ BID [facility] Last Admin: 01/03/18 10:13 Dose: 70 mg Furosemide (Lasix -) 40 mg PO DAILY [facility] Last Admin: 01/03/18 10:13 Dose: 40 mg Hydroxychloroquine Sulfate (Plaquenil -) 200 mg PO DAILY [facility] Last Admin: 01/03/18 10:14 Dose: 200 mg Insulin Aspart (Novolog Vial Sliding Scale -) 1 vial SQ ACHS [facility] PRN Reason: Protocol Last Admin: 01/03/18 06:20 Dose: Not Given Insulin Detemir (Levemir Vial) 45 units SQ AM [facility] Last Admin: 01/03/18 08:17 Dose: 45 units Insulin Detemir (Levemir Vial) 15 units SQ HS [facility] Last Admin: 01/02/18 21:00 Dose: 15 unit Latanoprost (Xalatan 0.005% Eye Drops -) 1 drop OU HS [facility] Last Admin: 01/02/18 21:03 Dose: 1 drop Potassium Chloride (K-Dur -) 40 meq PO DAILY [facility] Last Admin: 01/03/18 10:12 Dose: 40 meq Prednisone (Deltasone -) 20 mg PO DAILY [facility] Last Admin: 01/03/18 10:13 Dose: 20 mg Timolol Maleate (Timoptic 0.5%) 1 drop OU BID [facility] Last Admin: 01/03/18 10:16 Dose: 1 drop - Objective Vital Signs: Vital Signs Temperature 97.2 F L 01/03/18 09:41 Pulse Rate 60 01/03/18 09:41 Respiratory Rate 20 01/03/18 09:41 Blood Pressure 150/58 01/03/18 09:41 O2 Sat by Pulse Oximetry (%) 97 01/02/18 21:00 Constitutional: Yes: No Distress, Calm Eyes: Yes: Conjunctiva Clear, EOM Intact, PERRL HENT: Yes: Atraumatic, Normocephalic Neck: Yes: Supple, Trachea Midline Cardiovascular: Yes: Regular Rate and Rhythm, S1, S2. No: Bradycardia, Tachycardia, Pulse Irregular, Bruit, JVD, Gallop, Murmur, Rub, S3, S4, Varicosities Respiratory: Yes: Regular. No: Rales, Rhonchi, SOB, Wheezes Gastrointestinal: Yes: Normal Bowel Sounds, Soft. No: Distention, Tenderness Musculoskeletal: Yes: Muscle Weakness Extremities: Yes: Other (ecchymosis) Edema: Yes Peripheral Pulses WNL: Yes Integumentary: Yes: Bruising Neurological: Yes: Alert, Oriented Psychiatric: Yes: Alert, Oriented Labs: CBC, BMP 01/01/18 07:00 01/01/18 07:00 INR, PTT INR 1.27 (0.82-1.09) H 01/01/18 07:00 Fibrinogen 460.0 mg/dL (238-498) 12/28/17 06:00 - ....Imaging Chest X-ray: Report Reviewed, Image Reviewed EKG: Report Reviewed, Image Reviewed Other: Report Reviewed, Image Reviewed Assessment/Plan IMP: Anticardiolipin Ab + Suspected connective tissue disorder Acute DVT Bilateral PNA (post-influenza) PAF s/p PPM, prior CVA hematoma left lower extremity REC: LLE hematoma and other ecchymoses improving H/H stable Plan is for continued Lovenox on discharge given high risk of thrombosis due to underlying hypercoag state, with careful observation of lower extremity and H/H PT evaluation and planning for rehab statin held as LFTs were elevated, safety of statin can be re-evaluated as outpatient
[2018-01-03 13:10] LABS: HEMATOCRIT 29.7 % (32.4-45.2); HEMOGLOBIN 9.3 GM/dL (10.7-15.3); MCH 28.3 pg (25.7-33.7); MCHC 31.4 g/dl (32.0-36.0); MEAN CELL VOLUME 90.2 fl (80-96); PLATELET COUNT 270 K/MM3 (134-434); RBC 3.29 M/mm3 (3.60-5.2); RDW 17.6 % (11.6-15.6); WHITE BLOOD COUNT 5.9 K/mm3 (4.0-10.0)
[2018-01-03 14:00] LABS: ALBUMIN 2.4 g/dl (3.4-5.0); ALK PHOS 72 U/L (45-117); ANION GAP 11 (8-16); BILIRUBIN,TOTAL 0.5 mg/dL (0.2-1.0); BLOOD UREA NITROGEN 19 mg/dL (7-18); CALCIUM 8.5 mg/dL (8.5-10.1); CHLORIDE 106 mmol/L (98-107); CO2 23 mmol/L (21-32); GLUCOSE,RANDOM 153 mg/dL (74-106); POTASSIUM 4.2 mmol/L (3.5-5.1); SGOT/AST 30 U/L (15-37); SGPT/ALT 96 U/L (12-78); SODIUM 140 mmol/L (136-145); TOT PROT 5.7 g/dl (6.4-8.2)
[2018-01-03] MEDS ORDERED: INSULIN DETEMIR 100 UNITS/ML MDV SQ SCH ×2 (17:48)
[2018-01-03] MEDS: LATANOPROST 0.005% OPHTH SOLN 2.5ML BOTTLE OU SCH (21:11)
--- NOTE | 2018-01-04 01:18 | PN ---
Progress Note, Physician History of Present Illness: Pt seen and examined on 01/03/18 - Current Medication List Current Medications: Active Medications Acetaminophen (Tylenol -) 325 mg PO Q6H PRN PRN Reason: PAIN LEVEL 6-10 Last Admin: 12/29/17 11:32 Dose: 325 mg Carvedilol (Coreg -) 25 mg PO BID [facility] Last Admin: 01/03/18 21:12 Dose: 25 mg Clopidogrel Bisulfate (Plavix -) 75 mg PO DAILY [facility] Last Admin: 01/03/18 10:12 Dose: 75 mg Colchicine (Colcrys -) 0.6 mg PO BID [facility] Last Admin: 01/03/18 21:12 Dose: 0.6 mg Diltiazem HCl (Cardizem Cd -) 240 mg PO DAILY [facility] Last Admin: 01/03/18 10:13 Dose: 240 mg Dorzolamide HCl (Trusopt 2%) 1 drop OU BID [facility] Last Admin: 01/03/18 21:12 Dose: 1 drop Enoxaparin Sodium (Lovenox -) 70 mg SQ BID [facility] Last Admin: 01/03/18 21:12 Dose: 70 mg Furosemide (Lasix -) 40 mg PO DAILY [facility] Last Admin: 01/03/18 10:13 Dose: 40 mg Hydroxychloroquine Sulfate (Plaquenil -) 200 mg PO DAILY [facility] Last Admin: 01/03/18 10:14 Dose: 200 mg Insulin Aspart (Novolog Vial Sliding Scale -) 1 vial SQ ACHS [facility] PRN Reason: Protocol Last Admin: 01/03/18 21:16 Dose: 8 units Insulin Detemir (Levemir Vial) 20 units SQ AM [facility] Latanoprost (Xalatan 0.005% Eye Drops -) 1 drop OU HS [facility] Last Admin: 01/03/18 21:11 Dose: 1 drop Potassium Chloride (K-Dur -) 40 meq PO DAILY [facility] Last Admin: 01/03/18 10:12 Dose: 40 meq Prednisone (Deltasone -) 20 mg PO DAILY [facility] Last Admin: 01/03/18 10:13 Dose: 20 mg Timolol Maleate (Timoptic 0.5%) 1 drop OU BID [facility] Last Admin: 01/03/18 21:10 Dose: 1 drop - Objective Vital Signs: Vital Signs Temperature 98 F 01/03/18 23:28 Pulse Rate 60 01/03/18 23:28 Respiratory Rate 20 01/03/18 23:28 Blood Pressure 142/61 01/03/18 23:28 O2 Sat by Pulse Oximetry (%) 97 01/03/18 20:21 Constitutional: Yes: No Distress Neck: Yes: WNL, Supple Cardiovascular: Yes: WNL, Regular Rate and Rhythm Respiratory: Yes: WNL, Regular, CTA Bilaterally Gastrointestinal: Yes: WNL, Normal Bowel Sounds, Soft Labs: CBC, BMP 01/03/18 12:52 01/03/18 12:52 INR, PTT INR 1.27 (0.82-1.09) H 01/01/18 07:00 Fibrinogen 460.0 mg/dL (238-498) 12/28/17 06:00 Problem List - Problems (1) DVT (deep venous thrombosis) Assessment/Plan: DC planning to STR Cont lovenox US of LLE showed improvement of DVT CT scan of extremity showed large hematoma in calf Code(s): I82.409 - ACUTE EMBOLISM AND THOMBOS UNSP DEEP VN UNSP LOWER EXTREMITY Qualifiers: DVT location: lower extremity Affected thrombotic vein of extremity: popliteal Chronicity: acute Laterality: left Qualified Code(s): I82.432 - Acute embolism and thrombosis of left popliteal vein (2) Elevated liver enzymes Assessment/Plan: Cont to monitor LFT's US showed fatty liver LFT's improved Code(s): R74.8 - ABNORMAL LEVELS OF OTHER SERUM ENZYMES (3) Diabetes Assessment/Plan: Cont sliding scale w/ coverage/levemir Code(s): E11.9 - TYPE 2 DIABETES MELLITUS WITHOUT COMPLICATIONS Qualifiers: Diabetes mellitus type: type 2 (4) HLD (hyperlipidemia) Code(s): E78.5 - HYPERLIPIDEMIA, UNSPECIFIED (5) Hypertension Code(s): I10 - ESSENTIAL (PRIMARY) HYPERTENSION Qualifiers: Hypertension type: essential hypertension Qualified Code(s): I10 - Essential (primary) hypertension (6) Pneumonia Code(s): J18.9 - PNEUMONIA, UNSPECIFIED ORGANISM (7) Pericarditis Code(s): I31.9 - DISEASE OF PERICARDIUM, UNSPECIFIED Qualifiers: Pericarditis type: idiopathic
[2018-01-04] MEDS: INSULIN SLIDING SCALE (NOVOLOG) 1 VIAL SQ SCH ×4 (06:00→21:33)
[2018-01-04] MEDS ORDERED: INSULIN (NOVOLOG) ASPART 100 UNITS/ML 10ML VIAL ONE (06:14)
[2018-01-04] MEDS ORDERED: INSULIN DETEMIR 100 UNITS/ML MDV SQ ONE (06:14)
[2018-01-04] MEDS: INSULIN DETEMIR 100 UNITS/ML MDV SQ SCH (08:59)
--- NOTE | 2018-01-04 09:14 | PN ---
Progress Note, Physician Chief Complaint: Repeat echo NORMAL LV FXN History of Present Illness: seen and examined, no acute distress - Current Medication List Current Medications: Active Medications Acetaminophen (Tylenol -) 325 mg PO Q6H PRN PRN Reason: PAIN LEVEL 6-10 Last Admin: 12/29/17 11:32 Dose: 325 mg Carvedilol (Coreg -) 25 mg PO BID [facility] Last Admin: 01/03/18 21:12 Dose: 25 mg Clopidogrel Bisulfate (Plavix -) 75 mg PO DAILY [facility] Last Admin: 01/03/18 10:12 Dose: 75 mg Colchicine (Colcrys -) 0.6 mg PO BID [facility] Last Admin: 01/03/18 21:12 Dose: 0.6 mg Diltiazem HCl (Cardizem Cd -) 240 mg PO DAILY [facility] Last Admin: 01/03/18 10:13 Dose: 240 mg Dorzolamide HCl (Trusopt 2%) 1 drop OU BID [facility] Last Admin: 01/03/18 21:12 Dose: 1 drop Enoxaparin Sodium (Lovenox -) 70 mg SQ BID [facility] Last Admin: 01/03/18 21:12 Dose: 70 mg Furosemide (Lasix -) 40 mg PO DAILY [facility] Last Admin: 01/03/18 10:13 Dose: 40 mg Hydroxychloroquine Sulfate (Plaquenil -) 200 mg PO DAILY [facility] Last Admin: 01/03/18 10:14 Dose: 200 mg Insulin Aspart (Novolog Vial Sliding Scale -) 1 vial SQ ACHS [facility] PRN Reason: Protocol Last Admin: 01/04/18 06:00 Dose: Not Given Insulin Detemir (Levemir Vial) 20 units SQ DAILY@0800 [facility] Last Admin: 01/04/18 08:59 Dose: 20 units Latanoprost (Xalatan 0.005% Eye Drops -) 1 drop OU HS [facility] Last Admin: 01/03/18 21:11 Dose: 1 drop Potassium Chloride (K-Dur -) 40 meq PO DAILY [facility] Last Admin: 01/03/18 10:12 Dose: 40 meq Prednisone (Deltasone -) 20 mg PO DAILY [facility] Last Admin: 01/03/18 10:13 Dose: 20 mg Timolol Maleate (Timoptic 0.5%) 1 drop OU BID [facility] Last Admin: 01/03/18 21:10 Dose: 1 drop - Objective Vital Signs: Vital Signs Temperature 97.3 F L 01/04/18 05:34 Pulse Rate 60 01/04/18 05:34 Respiratory Rate 20 01/04/18 05:34 Blood Pressure 147/67 01/04/18 05:34 O2 Sat by Pulse Oximetry (%) 97 01/03/18 20:21 Constitutional: Yes: No Distress, Calm Eyes: Yes: Conjunctiva Clear Cardiovascular: Yes: Regular Rate and Rhythm (paced) Respiratory: Yes: CTA Bilaterally Gastrointestinal: Yes: Soft Edema: No Neurological: Yes: Alert, Oriented ...Motor Strength: WNL Labs: CBC, BMP 01/03/18 12:52 01/03/18 12:52 INR, PTT INR 1.27 (0.82-1.09) H 01/01/18 07:00 Fibrinogen 460.0 mg/dL (238-498) 12/28/17 06:00 Assessment/Plan Assessment/Plan IMP: Anticardiolipin Ab + Suspected connective tissue disorder Acute DVT Bilateral PNA (post-influenza) PAF s/p PPM, prior CVA hematoma left lower extremity REC: LLE hematoma and other ecchymoses improved H/H stable Plan is for continued Lovenox on discharge given high risk of thrombosis due to underlying hypercoag state, with careful observation of lower extremity and H/H PT evaluation and planning for rehab statin held as LFTs were elevated, safety of statin can be re-evaluated as outpatient Echo repeated yesterday, LV fxn NORMAL. Echo earlier in admission with depressed LVEF likely due to acute infection/sepsis/SIRS picture. recent cath done within last 2 months non-obstructive disease with patent stents.
--- NOTE | 2018-01-04 09:53 | PN ---
Progress Note (short form) - Note Progress Note: Feels OK. No CP or SOB. Minimal dry cough. No acute events overnight. Intake & Output 01/01/18 01/02/18 01/03/18 01/04/18 23:59 23:59 23:59 23:59 Intake Total 850 500 240 Balance 850 500 240 Weight 157 lb 156 lb 3 oz 154 lb Last Vital Signs Temp Pulse Resp BP Pulse Ox 97.3 F L 60 20 147/67 97 01/04/18 05:34 01/04/18 05:34 01/04/18 05:34 01/04/18 05:34 01/03/18 20:21 Active Medications Acetaminophen (Tylenol -) 325 mg PO Q6H PRN PRN Reason: PAIN LEVEL 6-10 Last Admin: 12/29/17 11:32 Dose: 325 mg Carvedilol (Coreg -) 25 mg PO BID [facility] Last Admin: 01/03/18 21:12 Dose: 25 mg Clopidogrel Bisulfate (Plavix -) 75 mg PO DAILY [facility] Last Admin: 01/03/18 10:12 Dose: 75 mg Colchicine (Colcrys -) 0.6 mg PO BID [facility] Last Admin: 01/03/18 21:12 Dose: 0.6 mg Diltiazem HCl (Cardizem Cd -) 240 mg PO DAILY [facility] Last Admin: 01/03/18 10:13 Dose: 240 mg Dorzolamide HCl (Trusopt 2%) 1 drop OU BID [facility] Last Admin: 01/03/18 21:12 Dose: 1 drop Enoxaparin Sodium (Lovenox -) 70 mg SQ BID [facility] Last Admin: 01/03/18 21:12 Dose: 70 mg Furosemide (Lasix -) 40 mg PO DAILY [facility] Last Admin: 01/03/18 10:13 Dose: 40 mg Hydroxychloroquine Sulfate (Plaquenil -) 200 mg PO DAILY [facility] Last Admin: 01/03/18 10:14 Dose: 200 mg Insulin Aspart (Novolog Vial Sliding Scale -) 1 vial SQ ACHS [facility] PRN Reason: Protocol Last Admin: 01/04/18 06:00 Dose: Not Given Insulin Detemir (Levemir Vial) 20 units SQ DAILY@0800 [facility] Last Admin: 01/04/18 08:59 Dose: 20 units Latanoprost (Xalatan 0.005% Eye Drops -) 1 drop OU HS [facility] Last Admin: 01/03/18 21:11 Dose: 1 drop Potassium Chloride (K-Dur -) 40 meq PO DAILY [facility] Last Admin: 01/03/18 10:12 Dose: 40 meq Prednisone (Deltasone -) 20 mg PO DAILY [facility] Last Admin: 01/03/18 10:13 Dose: 20 mg Timolol Maleate (Timoptic 0.5%) 1 drop OU BID [facility] Last Admin: 01/03/18 21:10 Dose: 1 drop Constitutional: Yes: NAD Eyes: Yes: EOM Intact HENT: Yes: Normocephalic Neck: Yes: Trachea Midline Cardiovascular: Yes: Pulse Irregular, S1, S2 Respiratory: Yes: Bilateral rhonchi, no wheezing Gastrointestinal: Yes: Soft, Abdomen, Obese Extremities: Yes: Less calf Tenderness Edema: LLE: 3+ Integumentary: Yes: WNL Neurological: Yes: Alert Labs: Laboratory Results - last 24 hr 01/03/18 01/03/18 01/03/18 11:44 12:52 12:52 WBC 5.9 RBC 3.29 L Hgb 9.3 L Hct 29.7 L MCV 90.2 MCH 28.3 MCHC 31.4 L RDW 17.6 H Plt Count 270 D MPV 8.0 Sodium 140 Potassium 4.2 Chloride 106 Carbon Dioxide 23 Anion Gap 11 BUN 19 H Creatinine 1.0 Creat Clearance w eGFR 54.35 POC Glucometer 123 Random Glucose 153 H Calcium 8.5 Total Bilirubin 0.5 AST 30 ALT 96 H Alkaline Phosphatase 72 Total Protein 5.7 L Albumin 2.4 L 01/03/18 01/03/18 01/04/18 16:21 21:15 05:47 WBC RBC Hgb Hct MCV MCH MCHC RDW Plt Count MPV Sodium Potassium Chloride Carbon Dioxide Anion Gap BUN Creatinine Creat Clearance w eGFR POC Glucometer 227 331 66 Random Glucose Calcium Total Bilirubin AST ALT Alkaline Phosphatase Total Protein Albumin 01/04/18 08:57 WBC RBC Hgb Hct MCV MCH MCHC RDW Plt Count MPV Sodium Potassium Chloride Carbon Dioxide Anion Gap BUN Creatinine Creat Clearance w eGFR POC Glucometer 199 Random Glucose Calcium Total Bilirubin AST ALT Alkaline Phosphatase Total Protein Albumin Problem List - Problems (1) DVT (deep venous thrombosis) Code(s): I82.409 - ACUTE EMBOLISM AND THOMBOS UNSP DEEP VN UNSP LOWER EXTREMITY Qualifiers: DVT location: lower extremity Affected thrombotic vein of extremity: popliteal Chronicity: acute Laterality: left Qualified Code(s): I82.432 - Acute embolism and thrombosis of left popliteal vein (2) Afib Code(s): I48.91 - UNSPECIFIED ATRIAL FIBRILLATION Qualifiers: Atrial fibrillation type: paroxysmal Qualified Code(s): I48.0 - Paroxysmal atrial fibrillation (3) Anticardiolipin antibody positive Code(s): R76.8 - OTHER SPECIFIED ABNORMAL IMMUNOLOGICAL FINDINGS IN SERUM (4) CHF (congestive heart failure) Code(s): I50.9 - HEART FAILURE, UNSPECIFIED (5) Diabetes Code(s): E11.9 - TYPE 2 DIABETES MELLITUS WITHOUT COMPLICATIONS Qualifiers: Diabetes mellitus type: type 2 (6) Community Acquired PNA Assessment/Plan Acute LLE DVT PAF s/p PPM H/o CVA HTN Renal artery stenosis CAD (+) anticardiolipin AB (SLE negative, markedly positive MEGHANN) Prednisone Lovenox Off ABX Pain control Local wound care O2 as needed to maintain saturation Aspiration precautions Dr Hart
[2018-01-04] MEDS ORDERED: PT OWN MED DRAWER 7, Y5N ONE (10:15)
[2018-01-04] MEDS: POTASSIUM CHLORIDE TABS 20 MEQ TABLET.ER (FP) PO SCH (10:17)
[2018-01-04] MEDS: CARVEDILOL 25 MG TABLET (FP) PO SCH ×2 (10:17→21:32)
[2018-01-04] MEDS: ENOXAPARIN NA (PORCINE) 80 MG/0.8 ML DISP.SYRIN SQ SCH ×2 (10:17→21:32)
[2018-01-04] MEDS: FUROSEMIDE 40 MG TABLET (FP) PO SCH (10:18)
[2018-01-04] MEDS: predniSONE 20 MG TABLET (UD) PO SCH (10:18)
[2018-01-04] MEDS: CLOPIDOGREL BISULFATE 75 MG TABLET (FP) PO SCH (10:18)
[2018-01-04] MEDS: COLCHICINE 0.6 MG TABLET (FP) PO SCH ×2 (10:18→21:31)
[2018-01-04] MEDS: HYDROXYCHLOROQUINE SO4 200 MG TABLET (FP) PO SCH (10:18)
[2018-01-04] MEDS: TIMOLOL 0.5% OPHTHALMIC SOL 5 ML BOTTLE OU SCH ×2 (10:18→21:27)
[2018-01-04] MEDS: DORZOLAMIDE 2% HCL OPHTHALMIC SOLUTION 10 ML BOTTLE OU SCH ×2 (10:19→21:27)
--- NOTE | 2018-01-04 16:28 | PN ---
Progress Note (short form) - Note Progress Note: pt seen and examined family at bedside. feels much better repeat TTE is noted. O/E: General: NAD HEENT: NCAT Cor: RRR Lungs: CTA b/l Abd: Soft LE: left:stable,improved Last Vital Signs Temp Pulse Resp BP Pulse Ox 97.5 F L 60 20 112/60 97 01/04/18 14:02 01/04/18 14:02 01/04/18 14:02 01/04/18 14:02 01/03/18 20:21 CBC, BMP 01/03/18 12:52 01/03/18 12:52 Current Medications Generic Name Dose Route Start Last Admin Trade Name Freq PRN Reason Stop Dose Admin Acetaminophen 325 mg 12/23/17 15:56 12/29/17 11:32 Tylenol - PO 325 mg Q6H PRN Administration PAIN LEVEL 6-10 Carvedilol 25 mg 12/23/17 22:00 01/04/18 10:17 Coreg - PO 25 mg BID [facility] Administration Clopidogrel Bisulfate 75 mg 12/24/17 10:00 01/04/18 10:18 Plavix - PO 75 mg DAILY [facility] Administration Colchicine 0.6 mg 12/24/17 10:00 01/04/18 10:18 Colcrys - PO 0.6 mg BID [facility] Administration Diltiazem HCl 240 mg 12/24/17 10:00 01/04/18 10:17 Cardizem Cd - PO 240 mg DAILY [facility] Administration Dorzolamide HCl 1 drop 12/23/17 22:00 01/04/18 10:19 Trusopt 2% OU 1 drop BID [facility] Administration Enoxaparin Sodium 70 mg 12/31/17 11:00 01/04/18 10:17 Lovenox - SQ 70 mg BID [facility] Administration Furosemide 40 mg 12/24/17 10:00 01/04/18 10:18 Lasix - PO 40 mg DAILY [facility] Administration Hydroxychloroquine Sulfate 200 mg 12/24/17 14:45 01/04/18 10:18 Plaquenil - PO 200 mg DAILY [facility] Administration Insulin Aspart 1 vial 12/23/17 16:30 01/04/18 12:16 Novolog Vial Sliding Scale - SQ Not Given ACHS [facility] Protocol Insulin Detemir 20 units 01/04/18 08:00 01/04/18 08:59 Levemir Vial SQ 20 units DAILY@0800 [facility] Administration Latanoprost 1 drop 12/23/17 22:00 01/03/18 21:11 Xalatan 0.005% Eye Drops - OU 1 drop HS [facility] Administration Potassium Chloride 40 meq 12/23/17 16:00 01/04/18 10:17 K-Dur - PO 40 meq DAILY [facility] Administration Prednisone 20 mg 12/24/17 10:00 01/04/18 10:18 Deltasone - PO 20 mg DAILY [facility] Administration Timolol Maleate 1 drop 12/23/17 22:00 01/04/18 10:18 Timoptic 0.5% OU 1 drop BID [facility] Administration Hematoma, stable,leg improving PNA ( Post Influenza) Acute LLE DVT PAF s/p PPM H/o CVA HTN Renal artery stenosis CAD APLS (as per outside verbal report) on prednisone and plaquenil per rheum steroid induced hyperglycemia Prolonged PTT in the setting of APLS -c/w lovenox -echymosses to resolve within a period of time -NEEDs follow-up with her Control Electrician ( at [facility] ) upon d/c . Would be D/c on Lovenox 70mg bid. Family aware. Also recommend CBC check at SNF in 2-3d post discharge, again discussed with the pt.
--- NOTE | 2018-01-04 19:42 | PN ---
Progress Note, Physician History of Present Illness: No new complaints - Current Medication List Current Medications: Active Medications Acetaminophen (Tylenol -) 325 mg PO Q6H PRN PRN Reason: PAIN LEVEL 6-10 Last Admin: 12/29/17 11:32 Dose: 325 mg Carvedilol (Coreg -) 25 mg PO BID [facility] Last Admin: 01/04/18 10:17 Dose: 25 mg Clopidogrel Bisulfate (Plavix -) 75 mg PO DAILY [facility] Last Admin: 01/04/18 10:18 Dose: 75 mg Colchicine (Colcrys -) 0.6 mg PO BID [facility] Last Admin: 01/04/18 10:18 Dose: 0.6 mg Diltiazem HCl (Cardizem Cd -) 240 mg PO DAILY [facility] Last Admin: 01/04/18 10:17 Dose: 240 mg Dorzolamide HCl (Trusopt 2%) 1 drop OU BID [facility] Last Admin: 01/04/18 10:19 Dose: 1 drop Enoxaparin Sodium (Lovenox -) 70 mg SQ BID [facility] Last Admin: 01/04/18 10:17 Dose: 70 mg Furosemide (Lasix -) 40 mg PO DAILY [facility] Last Admin: 01/04/18 10:18 Dose: 40 mg Hydroxychloroquine Sulfate (Plaquenil -) 200 mg PO DAILY [facility] Last Admin: 01/04/18 10:18 Dose: 200 mg Insulin Aspart (Novolog Vial Sliding Scale -) 1 vial SQ ACHS [facility] PRN Reason: Protocol Last Admin: 01/04/18 17:24 Dose: 8 units Insulin Detemir (Levemir Vial) 20 units SQ DAILY@0800 [facility] Last Admin: 01/04/18 08:59 Dose: 20 units Latanoprost (Xalatan 0.005% Eye Drops -) 1 drop OU HS [facility] Last Admin: 01/03/18 21:11 Dose: 1 drop Potassium Chloride (K-Dur -) 40 meq PO DAILY [facility] Last Admin: 01/04/18 10:17 Dose: 40 meq Prednisone (Deltasone -) 20 mg PO DAILY [facility] Last Admin: 01/04/18 10:18 Dose: 20 mg Timolol Maleate (Timoptic 0.5%) 1 drop OU BID [facility] Last Admin: 01/04/18 10:18 Dose: 1 drop - Objective Vital Signs: Vital Signs Temperature 98.1 F 01/04/18 18:00 Pulse Rate 61 01/04/18 18:00 Respiratory Rate 20 01/04/18 18:00 Blood Pressure 134/65 01/04/18 18:00 O2 Sat by Pulse Oximetry (%) 97 01/04/18 09:00 HENT: Yes: WNL Neck: Yes: WNL, Supple Cardiovascular: Yes: WNL, Regular Rate and Rhythm Respiratory: Yes: WNL, Regular, CTA Bilaterally Gastrointestinal: Yes: WNL, Normal Bowel Sounds, Soft Labs: CBC, BMP 01/03/18 12:52 01/03/18 12:52 INR, PTT INR 1.27 (0.82-1.09) H 01/01/18 07:00 Fibrinogen 460.0 mg/dL (238-498) 12/28/17 06:00 Problem List - Problems (1) DVT (deep venous thrombosis) Assessment/Plan: DC planning to STR Cont lovenox US of LLE showed improvement of DVT CT scan of extremity showed large hematoma in calf Code(s): I82.409 - ACUTE EMBOLISM AND THOMBOS UNSP DEEP VN UNSP LOWER EXTREMITY Qualifiers: DVT location: lower extremity Affected thrombotic vein of extremity: popliteal Chronicity: acute Laterality: left Qualified Code(s): I82.432 - Acute embolism and thrombosis of left popliteal vein (2) Elevated liver enzymes Assessment/Plan: Cont to monitor LFT's US showed fatty liver LFT's improved Code(s): R74.8 - ABNORMAL LEVELS OF OTHER SERUM ENZYMES (3) Diabetes Assessment/Plan: Cont sliding scale w/ coverage/levemir Code(s): E11.9 - TYPE 2 DIABETES MELLITUS WITHOUT COMPLICATIONS Qualifiers: Diabetes mellitus type: type 2 (4) HLD (hyperlipidemia) Assessment/Plan: Cont lipitor Code(s): E78.5 - HYPERLIPIDEMIA, UNSPECIFIED (5) Hypertension Assessment/Plan: BP stable Cont antihypertensives Code(s): I10 - ESSENTIAL (PRIMARY) HYPERTENSION Qualifiers: Hypertension type: essential hypertension Qualified Code(s): I10 - Essential (primary) hypertension (6) Pneumonia Assessment/Plan: Post influenza penumonia/bilateral pneumonia Code(s): J18.9 - PNEUMONIA, UNSPECIFIED ORGANISM (7) Pericarditis Code(s): I31.9 - DISEASE OF PERICARDIUM, UNSPECIFIED Qualifiers: Pericarditis type: idiopathic
[2018-01-04] MEDS: LATANOPROST 0.005% OPHTH SOLN 2.5ML BOTTLE OU SCH (21:27)
[2018-01-05] MEDS: INSULIN SLIDING SCALE (NOVOLOG) 1 VIAL SQ SCH ×2 (06:11→11:59)
[2018-01-05] MEDS: INSULIN DETEMIR 100 UNITS/ML MDV SQ SCH (08:30)
--- NOTE | 2018-01-05 09:05 | PN ---
Progress Note, Physician Chief Complaint: feels well, no acute distress - Current Medication List Current Medications: Active Medications Acetaminophen (Tylenol -) 325 mg PO Q6H PRN PRN Reason: PAIN LEVEL 6-10 Last Admin: 12/29/17 11:32 Dose: 325 mg Carvedilol (Coreg -) 25 mg PO BID [facility] Last Admin: 01/04/18 21:32 Dose: 25 mg Clopidogrel Bisulfate (Plavix -) 75 mg PO DAILY [facility] Last Admin: 01/04/18 10:18 Dose: 75 mg Colchicine (Colcrys -) 0.6 mg PO BID [facility] Last Admin: 01/04/18 21:31 Dose: 0.6 mg Diltiazem HCl (Cardizem Cd -) 240 mg PO DAILY [facility] Last Admin: 01/04/18 10:17 Dose: 240 mg Dorzolamide HCl (Trusopt 2%) 1 drop OU BID [facility] Last Admin: 01/04/18 21:27 Dose: 1 drop Enoxaparin Sodium (Lovenox -) 70 mg SQ BID [facility] Last Admin: 01/04/18 21:32 Dose: 70 mg Furosemide (Lasix -) 40 mg PO DAILY [facility] Last Admin: 01/04/18 10:18 Dose: 40 mg Hydroxychloroquine Sulfate (Plaquenil -) 200 mg PO DAILY [facility] Last Admin: 01/04/18 10:18 Dose: 200 mg Insulin Aspart (Novolog Vial Sliding Scale -) 1 vial SQ ACHS [facility] PRN Reason: Protocol Last Admin: 01/05/18 06:11 Dose: Not Given Insulin Detemir (Levemir Vial) 20 units SQ DAILY@0800 [facility] Last Admin: 01/04/18 08:59 Dose: 20 units Latanoprost (Xalatan 0.005% Eye Drops -) 1 drop OU HS [facility] Last Admin: 01/04/18 21:27 Dose: 1 drop Potassium Chloride (K-Dur -) 40 meq PO DAILY [facility] Last Admin: 01/04/18 10:17 Dose: 40 meq Prednisone (Deltasone -) 20 mg PO DAILY [facility] Last Admin: 01/04/18 10:18 Dose: 20 mg Timolol Maleate (Timoptic 0.5%) 1 drop OU BID [facility] Last Admin: 01/04/18 21:27 Dose: 1 drop - Objective Vital Signs: Vital Signs Temperature 98.1 F 01/05/18 06:00 Pulse Rate 63 01/05/18 06:00 Respiratory Rate 20 01/05/18 06:00 Blood Pressure 143/56 01/05/18 06:00 O2 Sat by Pulse Oximetry (%) 97 01/04/18 20:08 Constitutional: Yes: No Distress, Calm Eyes: Yes: Conjunctiva Clear Cardiovascular: Yes: Regular Rate and Rhythm (PACED RHYTHM) Respiratory: Yes: CTA Bilaterally Gastrointestinal: Yes: Soft (Non-tender) Edema: Yes Edema: LLE: 1+, RLE: 1+ Neurological: Yes: Alert, Oriented Labs: CBC, BMP 01/03/18 12:52 01/03/18 12:52 INR, PTT INR 1.27 (0.82-1.09) H 01/01/18 07:00 Fibrinogen 460.0 mg/dL (238-498) 12/28/17 06:00 Laboratory Tests 12/22/17 01/01/18 01/03/18 06:52 07:00 12:52 WBC 5.9 Hgb 9.3 L Hct 29.7 L Plt Count 270 D INR 1.27 H Potassium Creatinine MEGHANN Homogeneous Pattern 1:640 H 01/03/18 12:52 WBC Hgb Hct Plt Count INR Potassium 4.2 Creatinine 1.0 MEGHANN Homogeneous Pattern Assessment/Plan IMP: Anticardiolipin Ab + Suspected connective tissue disorder with markedly + MEGHANN Acute DVT while on Coumadin with fluctuating INRs Bilateral PNA (post-influenza), resolved PAF s/p PPM, prior CVA hematoma left lower extremity, resolved REC: LLE hematoma and other ecchymoses resolved H/H stable Plan is for continued Lovenox on discharge given high risk of thrombosis due to underlying hypercoag state, with careful observation of lower extremity and H/H statin held as LFTs were elevated, safety of statin can be re-evaluated as outpatient She awaits placement in SNF for rehab.
[2018-01-05] MEDS: FUROSEMIDE 40 MG TABLET (FP) PO SCH (09:51)
[2018-01-05] MEDS: POTASSIUM CHLORIDE TABS 20 MEQ TABLET.ER (FP) PO SCH (09:51)
[2018-01-05] MEDS: CLOPIDOGREL BISULFATE 75 MG TABLET (FP) PO SCH (09:51)
[2018-01-05] MEDS: predniSONE 20 MG TABLET (UD) PO SCH (09:51)
[2018-01-05] MEDS: ENOXAPARIN NA (PORCINE) 80 MG/0.8 ML DISP.SYRIN SQ SCH (09:51)
[2018-01-05] MEDS: COLCHICINE 0.6 MG TABLET (FP) PO SCH (09:51)
[2018-01-05] MEDS: CARVEDILOL 25 MG TABLET (FP) PO SCH (09:51)
[2018-01-05] MEDS: DORZOLAMIDE 2% HCL OPHTHALMIC SOLUTION 10 ML BOTTLE OU SCH (09:54)
[2018-01-05] MEDS: TIMOLOL 0.5% OPHTHALMIC SOL 5 ML BOTTLE OU SCH (09:54)
[2018-01-05] MEDS: HYDROXYCHLOROQUINE SO4 200 MG TABLET (FP) PO SCH (10:05)
[2018-01-05 13:37] VITALS: BP 144/63; PULSE 60; TEMP 97.8
--- NOTE | 2018-01-05 19:53 | DS ---
Physical Examination Vital Signs: Vital Signs Temperature 97.8 F 01/05/18 13:36 Pulse Rate 60 01/05/18 13:36 Respiratory Rate 20 01/05/18 13:36 Blood Pressure 144/63 01/05/18 13:36 O2 Sat by Pulse Oximetry (%) 97 01/05/18 09:00 Labs: CBC, BMP 01/03/18 12:52 01/03/18 12:52 Discharge Summary Reason For Visit: DVT Condition: Good - Instructions Diet, Activity, Other Instructions: 2 gram sodium and 2200 calorie diabetic diet Referrals: Sony Johnson MD [Primary Care Provider] - Disposition: CARE HOME FACILITY - Home Medications Comprehensive Discharge Medication List: Ambulatory Orders Clopidogrel Bisulfate [Plavix -] 75 mg PO DAILY 10/09/17 Colchicine 0.6 mg PO BID 10/09/17 Diltiazem HCl [Diltiazem 24Hr Cd] 240 mg PO DAILY 10/09/17 Metoclopramide HCl [Reglan] 5 mg PO DAILY PRN 10/09/17 Furosemide [Lasix -] 40 mg PO DAILY 12/11/17 Carvedilol [Coreg -] 25 mg PO BID tablet 12/13/17 Dorzolamide HCl [Trusopt 2% -] 1 drop OU BID drops 12/13/17 Latanoprost 0.005% Eye Drops [Xalatan 0.005% Eye Drops -] 1 drop OU HS drops Timolol 0.5% [Timoptic 0.5%] 1 drop OU BID drops 12/13/17 Warfarin Na [Coumadin -] 1 mg PO Q2D 12/21/17 Acetaminophen [Tylenol .Regular Strength -] 325 mg PO Q6H PRN tablet 01/05/18 Colchicine [Colcrys -] 0.6 mg PO BID tablet 01/05/18 Enoxaparin [Lovenox -] 70 mg SQ BID disp.syrin 01/05/18 Furosemide [Lasix -] 40 mg PO DAILY tablet 01/05/18 Hydroxychloroquine So4 [Plaquenil -] 200 mg PO DAILY tablet 01/05/18 Insulin (Levemir) [Levemir Vial] 20 units SQ AM ml 01/05/18 Insulin (Levemir) [Levemir Vial] 20 units SQ DAILY@0800 ml 01/05/18 Insulin Sliding Scale [Novolog Vial Sliding Scale -] 1 vial SQ ACHS units 01/05 Potassium Chloride [K-Dur -] 40 meq PO DAILY tablet.er 01/05/18 predniSONE [Deltasone -] 20 mg PO DAILY tablet 01/05/18
== END 2018-01-05 18:56 | DRG 299 ==
LOC: JER 10:11 → JERBED 13:55 → J5S 19:07 → OBSVTOIN 19:22 → J4W 12-23 15:24 → J7W 12-25 16:01
PROVIDERS: ADMIT Internal Medicine; ATTEND Internal Medicine
PROC: 30233N1 Transfusion of Nonautologous Red Blood Cells into Peripheral Vein, Percutaneous Approach (ICD-10-PCS; principal; 2017-12-27)
DX: I82.432 Acute embolism and thrombosis of left popliteal vein (principal); J18.9 Pneumonia, unspecified organism; I50.32 Chronic diastolic (congestive) heart failure; D68.61 Antiphospholipid syndrome; D68.69 Other thrombophilia; R71.0 Precipitous drop in hematocrit; I69.351 Hemiplegia and hemiparesis following cerebral infarction affecting right dominant side; I31.9 Disease of pericardium, unspecified; M79.81 Nontraumatic hematoma of soft tissue; E11.9 Type 2 diabetes mellitus without complications; E78.5 Hyperlipidemia, unspecified; I48.0 Paroxysmal atrial fibrillation; I25.10 Atherosclerotic heart disease of native coronary artery without angina pectoris; R74.8 Abnormal levels of other serum enzymes; I11.0 Hypertensive heart disease with heart failure; M32.9 Systemic lupus erythematosus, unspecified; Z95.0 Presence of cardiac pacemaker; Z88.0 Allergy status to penicillin
CPT/HCPCS: 36415; 36430; 36600; 71045-TC-FY; 71275-TC; 73700-TC-RT; 76700-TC; 80048; 80053; 81003; 81015; 82550; 82553; 82728; 82784; 82803; 82962; 83036; 83540; 83550; 83615; 83735; 83880; 84155; 84165; 84484; 85025; 85027; 85044; 85384; 85610; 85730; 86022; 86038; 86162; 86225; 86334; 86850; 86900; 86901; 86922; 87040; 93005; 93010; 93306-TC; 93971-TC; 94640; 97116-GP; 97161-GP; 99285-25; G0378; G0480; P9058

== ENCOUNTER 2018-01-11 04:16 | Inpatient (IN) | payer OTHER ==
--- NOTE | 2018-01-11 04:38 | PDOC ---
History of Present Illness - General Chief Complaint: Pain, Acute Stated Complaint: L LEG PAIN Time Seen by Provider: 01/11/18 04:20 History Source: Patient - History of Present Illness Initial Comments: 01/11/18 0 72-year-old with left lower extremity DVT complaining and hematoma complaining of worsening swelling and pain to the left lower extremity. Patient with extensive admission in the hospital at [facility] and has been inpatient at [facility]. Patient was discharged to home on 01/10/2018. As per daughter patient did extensive walking with the walker at home and seemed thing this is has worsened hematoma to the left lower extremity. Patient has a past medical history of PAF on Coumadin CVA, hypertension, renal artery stenosis, coronary artery disease, anticardiolipin AB+, pericardial effusion, diabetes 01/11/18 06:31 Occurred: reports: this evening Lower Ext. Injury Location - Specific Injury Location Ankle: left ecchymosis (extensive hematona swelling and warmth. + ), left limited range of motion, left pain (lower extremity from hip to left ankle), left swelling Past History - Travel Traveled outside of the country in the last 30 days: Yes Close contact w/someone who was outside of country & ill: No - Past Medical History Allergies/Adverse Reactions: Allergies Allergy/AdvReac Type Severity Reaction Status Date / Time aspirin Allergy Severe Verified 01/11/18 04:26 Penicillins Allergy Severe Verified 01/11/18 04:26 diclofenac Allergy Verified 01/11/18 04:26 shellfish derived Allergy Verified 01/11/18 04:26 lactose AdvReac Verified 01/11/18 04:26 iv contrast Allergy Uncoded 01/11/18 04:26 Home Medications: Ambulatory Orders Clopidogrel Bisulfate [Plavix -] 75 mg PO DAILY 10/09/17 Diltiazem HCl [Diltiazem 24Hr Cd] 240 mg PO DAILY 10/09/17 Carvedilol [Coreg -] 25 mg PO BID tablet 12/13/17 Dorzolamide HCl [Trusopt 2% -] 1 drop OU BID drops 12/13/17 Latanoprost 0.005% Eye Drops [Xalatan 0.005% Eye Drops -] 1 drop OU HS drops Timolol 0.5% [Timoptic 0.5%] 1 drop OU BID drops 12/13/17 Acetaminophen [Tylenol .Regular Strength -] 325 mg PO Q6H PRN tablet 01/05/18 Colchicine [Colcrys -] 0.6 mg PO BID tablet 01/05/18 Enoxaparin [Lovenox -] 70 mg SQ BID disp.syrin 01/05/18 Furosemide [Lasix -] 40 mg PO DAILY tablet 01/05/18 Hydroxychloroquine So4 [Plaquenil -] 200 mg PO DAILY tablet 01/05/18 Insulin (Levemir) [Levemir Vial] 20 units SQ AM ml 01/05/18 Potassium Chloride [K-Dur -] 40 meq PO DAILY tablet.er 01/05/18 predniSONE [Deltasone -] 20 mg PO DAILY tablet 01/05/18 Alprazolam [Xanax] 0.5 mg PO HS PRN MDD 2 TABS 01/11/18 Insulin Sliding Scale [Novolog Vial Sliding Scale -] 0 units SQ ACHS PRN Anemia: No Asthma: No Cardiac Disorders: Yes (PACEMAKER, AAA 5CM, AFIB, PERICARDITIS, PERICARDIAL EFFUSION) CVA: Yes (RIGHT ARM AND LEG WEAKNESS RESIDUAL) COPD: No CHF: Yes DVT: No Diabetes: Yes (IDDM) 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) GI Disorders: Yes (constipation, GERD) HTN: Yes Hypercholesterolemia: Yes Thyroid Disease: No - Surgical History Cardiac Surgery: Yes (PACEMAKER (2010) ; cath 09/24) - Immunization History Immunization Up to Date: Yes - Suicide/Smoking/Psychosocial Hx Smoking History: Unknown if ever smoked Have you smoked in the past 12 months: No Number of Cigarettes Smoked Daily: 5 If you are a former smoker, when did you quit?: 1993 Information on smoking cessation initiated: No Hx Alcohol Use: No Drug/Substance Use Hx: No Substance Use Type: None Hx Substance Use Treatment: No Review of Systems - Review of Systems Able to Perform ROS?: Yes Is the patient limited Niuean proficient: No Constitutional: No: Symptoms Reported, See HPI, Chills, Diaphoresis, Fever, Loss of Appetite, Malaise, Night Sweats, Weakness, Weight Stable, Unintentional Wgt. Loss, Unexplained wgt Loss, Other Respiratory: No: Symptoms reported, See HPI, Cough, Orthopnea, Shortness of Breath, SOB with Exertion, SOB at Rest, Stridor, Wheezing, Productive cough, Hemoptysis, Other Integumentary: Yes: Other (hematoma with left lower extremity swelling and pain) *Physical Exam - Vital Signs Last Vital Signs Temp Pulse Resp BP Pulse Ox 98.7 F 68 14 186/77 100 01/11/18 04:26 01/11/18 04:26 01/11/18 04:26 01/11/18 04:26 01/11/18 04:26 - Physical Exam General Appearance: Yes: Appropriately Dressed Respiratory/Chest: positive: Lungs Clear, Normal Breath Sounds Musculoskeletal: positive: Normal Inspection Extremity: positive: Normal Capillary Refill, Pedal Edema, Calf Tenderness ( left lower extremity) Integumentary: positive: Ecchymosis (left lower extremity proximal to left ankle ) Neurologic: positive: Fully Oriented, Alert ED Treatment Course - LABORATORY CBC & Chemistry Diagram: 01/12/18 06:55 01/12/18 06:55 Progress Note - Progress Note Progress Note: A:Left lower extremity edema and pain; History of anticoagulation P: CBC CMP INR CT scan lower extremity: There is no fracture. A 12 x 7.5 x 6.2 cm complex mass or fluid collection within the soleus muscle may represent hematoma abscess or neoplasm and is suboptimally evaluated without contrast. No collections identified no joint effusion with significant arthritic changes. Medical Decision Making - Medical Decision Making 01/11/18 Patient signed out to Ying ESPINO/. pending disposition. patient to be admitted under Dr. boyd service. PMD Dr. Johnson/ Pending call back from Dr. Goddard *DC/Admit/Observation/Transfer Diagnosis at time of Disposition: HX: anticoagulation Hematoma of leg Qualifiers: Encounter type: initial encounter Laterality: left Qualified Code(s): S80.12XA - Contusion of left lower leg, initial encounter - Discharge Dispostion Admit: Yes - Referrals - Patient Instructions - Post Discharge Activity
[2018-01-11] MEDS ORDERED: morphine CARPU-JECT 4 MG/1 ML DISP.SYRIN IVPUSH ONE (04:49)
[2018-01-11 04:51] LABS: BASO % 0.6 % (0-2.0); EOS % 0.5 % (0-4.5); HEMATOCRIT 28.8 % (32.4-45.2); HEMOGLOBIN 9.5 GM/dL (10.7-15.3); LYMPH % 19.2 % (8-40); MCH 29.9 pg (25.7-33.7); MEAN CELL VOLUME 90.4 fl (80-96); MEAN PLT VOLUME 8.2 fl (7.5-11.1); MONO % 10.8 % (3.8-10.2); NEUT % 68.9 % (42.8-82.8); PLATELET COUNT 410 K/MM3 (134-434); RBC 3.18 M/mm3 (3.60-5.2); RDW 18.2 % (11.6-15.6); WHITE BLOOD COUNT 8.2 K/mm3 (4.0-10.0)
[2018-01-11] MEDS ORDERED: MORPHINE SULFATE 10 MG/1 ML *VIAL ONE ×2 (04:58→06:17)
[2018-01-11 05:05] LABS: INR 1.19 (0.82-1.09); PROTHROMBIN TIME (PATIENT) 13.5 SEC (9.98-11.88)
[2018-01-11 05:13] LABS: ALBUMIN 3.1 g/dl (3.4-5.0); ANION GAP 9 (8-16); BILIRUBIN,TOTAL 0.7 mg/dL (0.2-1.0); BLOOD UREA NITROGEN 19 mg/dL (7-18); CALCIUM 8.9 mg/dL (8.5-10.1); CHLORIDE 105 mmol/L (98-107); CO2 25 mmol/L (21-32); CREATININE 1.1 mg/dL (0.55-1.02); GLUCOSE,RANDOM 115 mg/dL (74-106); SGPT/ALT 51 U/L (12-78); SODIUM 139 mmol/L (136-145); TOT PROT 6.4 g/dl (6.4-8.2)
[2018-01-11 05:14] LABS: ALK PHOS 77 U/L (45-117)
[2018-01-11 05:17] LABS: POTASSIUM 4.7 mmol/L (3.5-5.1); SGOT/AST 43 U/L (15-37)
[2018-01-11] MEDS ORDERED: morphine SULFATE 4 MG/ML VIAL IVPUSH ONE (05:40)
--- NOTE | 2018-01-11 07:48 | PDOC ---
*Physical Exam - Vital Signs Last Vital Signs Temp Pulse Resp BP Pulse Ox 98.6 F 63 15 144/92 99 01/11/18 07:36 01/11/18 07:36 01/11/18 07:36 01/11/18 07:36 01/11/18 07:36 <Nathalia Joseph - Last Filed: 01/11/18 08:05> - Vital Signs Last Vital Signs Temp Pulse Resp BP Pulse Ox 98.6 F 63 15 144/92 99 01/11/18 07:36 01/11/18 07:36 01/11/18 07:36 01/11/18 07:36 01/11/18 07:36 <Cande Castaneda - Last Filed: 01/13/18 07:29> Heart Score/ECG Review - ECG Intrepretation Rhythm: Regular Rhythm (atrial paced rhythm with PACs with a rate of 63. Left bundle branch block noted. Unchanged from previous noted December 2017.) <Cande Castaneda - Last Filed: 01/13/18 07:29> ED Treatment Course - LABORATORY CBC & Chemistry Diagram: 01/11/18 04:45 01/11/18 04:45 - ADDITIONAL ORDERS Additional order review: Laboratory Results 01/11/18 01/11/18 04:45 04:45 PT with INR 13.50 H INR 1.19 H PTT (Actin FS) 35.0 H Sodium 139 Potassium 4.7 Chloride 105 Carbon Dioxide 25 Anion Gap 9 BUN 19 H Creatinine 1.1 H Creat Clearance w eGFR 48.69 Random Glucose 115 H Calcium 8.9 Total Bilirubin 0.7 D AST 43 H ALT 51 Alkaline Phosphatase 77 Total Protein 6.4 Albumin 3.1 L 01/11/18 04:45 RBC 3.18 L MCV 90.4 MCHC 33.0 RDW 18.2 H MPV 8.2 Neutrophils % 68.9 Lymphocytes % 19.2 D Monocytes % 10.8 H Eosinophils % 0.5 Basophils % 0.6 - Medications Given in the ED: ED Medications Discontinued Medications Generic Name Dose Route Start Last Admin Trade Name Freq PRN Reason Stop Dose Admin Morphine Sulfate 4 mg 01/11/18 04:49 01/11/18 05:03 Morphine Injection - IVPUSH 01/11/18 04:50 4 mg ONCE ONE Administration Morphine Sulfate 4 mg 01/11/18 05:40 01/11/18 06:33 Morphine Sulfate IVPUSH 01/11/18 05:41 4 mg ONCE ONE Administration <Nathalia Joseph - Last Filed: 01/11/18 08:05> - LABORATORY CBC & Chemistry Diagram: 01/12/18 06:55 01/12/18 06:55 - ADDITIONAL ORDERS Additional order review: Laboratory Results 01/11/18 01/11/18 04:45 04:45 PT with INR 13.50 H INR 1.19 H PTT (Actin FS) 35.0 H Sodium 139 Potassium 4.7 Chloride 105 Carbon Dioxide 25 Anion Gap 9 BUN 19 H Creatinine 1.1 H Creat Clearance w eGFR 48.69 Random Glucose 115 H Calcium 8.9 Total Bilirubin 0.7 D AST 43 H ALT 51 Alkaline Phosphatase 77 Total Protein 6.4 Albumin 3.1 L 01/11/18 04:45 RBC 3.18 L MCV 90.4 MCHC 33.0 RDW 18.2 H MPV 8.2 Neutrophils % 68.9 Lymphocytes % 19.2 D Monocytes % 10.8 H Eosinophils % 0.5 Basophils % 0.6 - Medications Given in the ED: ED Medications Discontinued Medications Generic Name Dose Route Start Last Admin Trade Name Freq PRN Reason Stop Dose Admin Morphine Sulfate 4 mg 01/11/18 04:49 01/11/18 05:03 Morphine Injection - IVPUSH 01/11/18 04:50 4 mg ONCE ONE Administration Morphine Sulfate 4 mg 01/11/18 05:40 01/11/18 06:33 Morphine Sulfate IVPUSH 01/11/18 05:41 4 mg ONCE ONE Administration <Cande Castaneda - Last Filed: 01/13/18 07:29> Medical Decision Making - Medical Decision Making 01/11/18 08:05 Dr. Goddard was paged and notified via phone service. <Nathalia Joseph - Last Filed: 01/11/18 08:05> - Medical Decision Making 01/11/18 07:47 Patient received in sign out from SRINIVAS Loev. Patient with large hematoma to the left lower extremity concerning for compartment syndrome secondary to increase in size and location. Patient will be admitted to Dr. Goddard. Call has been placed. Awaiting callback. Patient otherwise comfortable daughter at bedside. 01/11/18 09:[address] Goddard and stated to admit pt to hospitalist. Patient remains with 2+ pedal pulses bilateral and no change in temperature when compared bilaterally. 01/11/18 10:04 Vascular duplex shows a large complex collection in the left calf that may represent hematoma. The measurement is 8 x 5 x 25 cm starting from the lower aspect of the popliteal fossa . There is no evidence of DVT in the left common femoral superficial as well as the proximal and mid popliteal vein. No flow was seen in the distal left popliteal vein and in the posterior tibial vein. It is unclear whether this is due to persistent residual thrombosis versus extrinsic mass effect. Case discussed with hospitalist and will admit to [facility]. Ortho consult also placed for Dr. Horn. <Cande Castaneda - Last Filed: 01/13/18 07:29> *DC/Admit/Observation/Transfer <Nathalia Joseph - Last Filed: 01/11/18 08:05> - Discharge Dispostion Admit: Yes <Cande Castaneda - Last Filed: 01/13/18 07:29> Diagnosis at time of Disposition: HX: anticoagulation Hematoma of leg Qualifiers: Encounter type: initial encounter Laterality: left Qualified Code(s): S80.12XA - Contusion of left lower leg, initial encounter
[2018-01-11 11:18] VITALS: BMI 30.9
--- NOTE | 2018-01-11 11:54 | HP ---
Admitting History and Physical - Primary Care Physician PCP: Sugar Goddard - Admission Chief Complaint: LLE pain, swelling History of Present Illness: HPI This 72 year old female with pmhx of PAF failed coumadin, now on lovenox, s/p PPM H/o CVA HTN Renal artery stenosis, CAD, suspected connective tissue disease , + anticardiolipin AB (SLE negative, markedly positive MEGHANN), pericardial effusion s/p meron cardiocenthesis, recently discharged from [facility] for bilateral pna treatment and acute DVT on coumadin, now on lovenox has presented to the ED after one day discharge from rehab ([facility]) with increased pain and swelling to her LLE. Patient states at the retirement she would have 45mins of PT/day and most sit. When she was home yesterday she got up on and off throughout the day put pressure on her leg and walked with her walker. By the end of the night her leg was very painful and she could no longer place pressure on it. Of note she was started on colchicine and hydroxy chloroquine for lupus therapy. She reports taking her lovenox injections regularly every day, she denies trauma or falling. 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 Cardiovascular: Yes: AFIB, HTN, Hyperlipdemia, Other (pericarditis Pericardial effusion) Renal/: Yes: Other (Renal artery stenosis) Endocrine: Yes: Diabetes Mellitus - Past Surgical History Past Surgical History: Yes: Permanent Pacemaker - Smoking History Smoking history: Unknown if ever smoked Have you smoked in the past 12 months: No Aproximately how many cigarettes per day: 5 If you are a former smoker, when did you quit?: 1993 - Alcohol/Substance Use Hx Alcohol Use: No - Social History ADL: Family Assistance History of Recent Travel: No Home Medications - Allergies Allergies/Adverse Reactions: Allergies Allergy/AdvReac Type Severity Reaction Status Date / Time aspirin Allergy Severe Verified 01/11/18 04:26 Penicillins Allergy Severe Verified 01/11/18 04:26 diclofenac Allergy Verified 01/11/18 04:26 shellfish derived Allergy Verified 01/11/18 04:26 lactose AdvReac Verified 01/11/18 04:26 iv contrast Allergy Uncoded 01/11/18 04:26 - Home Medications Home Medications: Ambulatory Orders Clopidogrel Bisulfate [Plavix -] 75 mg PO DAILY 10/09/17 Diltiazem HCl [Diltiazem 24Hr Cd] 240 mg PO DAILY 10/09/17 Carvedilol [Coreg -] 25 mg PO BID tablet 12/13/17 Dorzolamide HCl [Trusopt 2% -] 1 drop OU BID drops 12/13/17 Latanoprost 0.005% Eye Drops [Xalatan 0.005% Eye Drops -] 1 drop OU HS drops Timolol 0.5% [Timoptic 0.5%] 1 drop OU BID drops 12/13/17 Acetaminophen [Tylenol .Regular Strength -] 325 mg PO Q6H PRN tablet 01/05/18 Colchicine [Colcrys -] 0.6 mg PO BID tablet 01/05/18 Enoxaparin [Lovenox -] 70 mg SQ BID disp.syrin 01/05/18 Furosemide [Lasix -] 40 mg PO DAILY tablet 01/05/18 Hydroxychloroquine So4 [Plaquenil -] 200 mg PO DAILY tablet 01/05/18 Insulin (Levemir) [Levemir Vial] 20 units SQ AM ml 01/05/18 Potassium Chloride [K-Dur -] 40 meq PO DAILY tablet.er 01/05/18 predniSONE [Deltasone -] 20 mg PO DAILY tablet 01/05/18 Alprazolam [Xanax] 0.5 mg PO HS PRN MDD 2 TABS 01/11/18 Insulin Sliding Scale [Novolog Vial Sliding Scale -] 0 units SQ ACHS PRN Review of Systems - Review of Systems Constitutional: reports: No Symptoms Eyes: reports: No Symptoms HENT: reports: No Symptoms Neck: reports: No Symptoms Cardiovascular: reports: No Symptoms Respiratory: reports: No Symptoms Gastrointestinal: reports: No Symptoms Genitourinary: reports: No Symptoms Musculoskeletal: reports: Extremity Pain (left lower) Integumentary: reports: Other (hemtoma LLE ankle to chua, behind knee) Neurological: reports: No Symptoms Endocrine: reports: No Symptoms Hematology/Lymphatic: reports: No Symptoms Psychiatric: reports: No Symptoms Physical Examination Vital Signs: Vital Signs Temperature 98.6 F 01/11/18 07:36 Pulse Rate 61 01/11/18 10:55 Respiratory Rate 18 01/11/18 10:55 Blood Pressure 149/78 01/11/18 10:55 O2 Sat by Pulse Oximetry (%) 100 01/11/18 10:55 Constitutional: Yes: Well Nourished Eyes: Yes: Conjunctiva Clear HENT: Yes: Atraumatic Neck: Yes: Supple Cardiovascular: Yes: Regular Rate and Rhythm, S1, S2 Respiratory: Yes: Regular, CTA Bilaterally Gastrointestinal: Yes: Normal Bowel Sounds, Soft Extremities: Yes: Other (LLE swelling, ecchymosis around ankle, posterior knee, + tenderness) Edema: Yes Edema: LLE: 2+ Peripheral Pulses WNL: Yes Neurological: Yes: Alert, Oriented, Cran Nerves II-XII Intact Labs: CBC, BMP 01/11/18 04:45 01/11/18 04:45 Imaging - Results X-ray: Report Reviewed Cat Scan: Report Reviewed Problem List - Problems (1) HX: anticoagulation Code(s): Z92.29 - PERSONAL HISTORY OF OTHER DRUG THERAPY (2) Hematoma of leg Code(s): S80.10XA - CONTUSION OF UNSPECIFIED LOWER LEG, INITIAL ENCOUNTER (3) Anticardiolipin antibody positive Code(s): R76.8 - OTHER SPECIFIED ABNORMAL IMMUNOLOGICAL FINDINGS IN SERUM (4) Diabetes Code(s): E11.9 - TYPE 2 DIABETES MELLITUS WITHOUT COMPLICATIONS Qualifiers: Diabetes mellitus type: type 2 (5) HLD (hyperlipidemia) Code(s): E78.5 - HYPERLIPIDEMIA, UNSPECIFIED (6) Hypertension Code(s): I10 - ESSENTIAL (PRIMARY) HYPERTENSION Qualifiers: Hypertension type: essential hypertension Qualified Code(s): I10 - Essential (primary) hypertension (7) Lupus (systemic lupus erythematosus) Code(s): M32.9 - SYSTEMIC LUPUS ERYTHEMATOSUS, UNSPECIFIED (8) Weakness Code(s): R53.1 - WEAKNESS Assessment/Plan Assessment: 72 year old female admitted with increased LLE pain and swelling Plan: 1. LLE DVT with increase LLE pain/swelling, connective tissue disorder - Lovenox 70mg BID - + anticardiolipin AB, + MEGHANN, has been started on lupus meds - Plavix 75mg daily - Heme onc/cardiology/vascular/ortho/rhuem consulted 2. CAD - Coreg 25mg BID - Cardizem 240mg daily 3. HTN - Lasix 40mg daily 4. Lupus - Colchicine 0.6mg BID - Prednisone 20mg daily - Plaquenil 200mg daily 5. DM II - ISS, BGM ACHS - Levemir 20units AM Visit type - Emergency Visit Emergency Visit: Yes ED Registration Date: 01/11/18 Care time: The patient presented to the Emergency Department on the above date and was hospitalized for further evaluation of their emergent condition. - New Patient This patient is new to me today: Yes Date on this admission: 01/11/18 - Critical Care Critical Care patient: No Hospitalist Screening - Colonoscopy Questionnaire Colonoscopy Questionnaire: Colonoscopy Questionnaire - Patient: 50 - 75 years old and never had a screening colonoscopy: Unknown History of colon or rectal polyps, or CA: Unknown History of IBD, Crohn's disease or UC: Unknown History of abdominal radiation therapy as a child: Unknown - Relative: 1 with colon or rectal CA, or polyps at age 60 or younger: Unknown Colon or rectal CA diagnosed at age 45 or younger: Unknown Multiple relatives with colon or rectal CA: Unknown - Outcome: Screening Result: Negative Screen
[2018-01-11] MEDS: oxyCODONE HCL 5 MG TABLET PO PRN (14:44)
[2018-01-11] MEDS: ACETAMINOPHEN 325 MG TABLET (FP) PO PRN (14:45)
--- NOTE | 2018-01-11 15:20 | PN ---
Progress Note, Physician History of Present Illness: seen and examined today. readmitted with c/o LLE pain, swelling. - Current Medication List Current Medications: Active Medications Acetaminophen (Tylenol -) 325 mg PO Q6H PRN PRN Reason: PAIN LEVEL 4 - 6 Last Admin: 01/11/18 14:45 Dose: 325 mg Carvedilol (Coreg -) 25 mg PO BID [facility] Clopidogrel Bisulfate (Plavix -) 75 mg PO DAILY JONAS Colchicine (Colcrys -) 0.6 mg PO BID JONAS Diltiazem HCl (Cardizem Cd -) 240 mg PO DAILY JONAS Enoxaparin Sodium (Lovenox -) 70 mg SQ BID JONAS Furosemide (Lasix -) 40 mg PO DAILY JONAS Hydroxychloroquine Sulfate (Plaquenil -) 200 mg PO DAILY JONAS Insulin Aspart (Novolog Vial Sliding Scale -) 1 vial SQ ACHS JONAS PRN Reason: Protocol Insulin Detemir (Levemir Vial) 20 units SQ AM JONAS Oxycodone HCl (Roxicodone -) 5 mg PO Q6H PRN PRN Reason: PAIN LEVEL 4 - 6 Last Admin: 01/11/18 14:44 Dose: 5 mg Potassium Chloride (K-Dur -) 40 meq PO DAILY JONAS Prednisone (Deltasone -) 20 mg PO DAILY JONAS - Objective Vital Signs: Vital Signs Temperature 98.6 F 01/11/18 07:36 Pulse Rate 61 01/11/18 10:55 Respiratory Rate 18 01/11/18 10:55 Blood Pressure 149/78 01/11/18 10:55 O2 Sat by Pulse Oximetry (%) 100 01/11/18 10:55 Constitutional: Yes: No Distress, Calm Eyes: Yes: Conjunctiva Clear, EOM Intact, PERRL HENT: Yes: Atraumatic, Normocephalic Neck: Yes: Supple, Trachea Midline Cardiovascular: Yes: Regular Rate and Rhythm, S1, S2. No: Bradycardia, Tachycardia, Pulse Irregular, Bruit, JVD, Gallop, Murmur, Rub, S3, S4, Varicosities Respiratory: Yes: Regular, CTA Bilaterally. No: Rales, Rhonchi, Wheezes Gastrointestinal: Yes: Normal Bowel Sounds, Soft, Distention, Tenderness Musculoskeletal: Yes: Muscle Pain, Muscle Weakness Extremities: Yes: Other (ecchymoses) Edema: Yes Peripheral Pulses: Left Doralis Pedis: 2+, Right Dorsalis Pedis: 2+ Integumentary: Yes: Bruising, Petechiae Wound/Incision: Yes: Unapproximated Neurological: Yes: Alert, Oriented Psychiatric: Yes: Alert, Oriented Labs: CBC, BMP 01/11/18 04:45 01/11/18 04:45 INR, PTT INR 1.19 (0.82-1.09) H 01/11/18 04:45 - ....Imaging Chest X-ray: Report Reviewed, Image Reviewed EKG: Report Reviewed, Image Reviewed Other: Report Reviewed, Image Reviewed Assessment/Plan IMP: Anticardiolipin Ab + Suspected connective tissue disorder with markedly + MEGHANN Acute DVT while on Coumadin with fluctuating INRs Bilateral PNA (post-influenza), resolved PAF s/p PPM, prior CVA hematoma left lower extremity, resolved now worsened REC: Recent LLE DVT with hospital course complicated by LLE hematoma, anemia Was doing well until got home from rehab yesterday, spent more time walking developed LLE swelling and pain LLE edema concerning for recurrent hematoma monitor H/H and transfuse as needed DP/PT pulses 2+ and cap refill intake, would still monitor closely for compartment syndrome Leg elevation Cont Lovenox for now
--- NOTE | 2018-01-11 16:56 | PN ---
Progress Note (short form) - Note Progress Note: Pt seen and examined. Her multiple medical problems noted. As per her daughter she was doing well, ambulating, weight bearing, at home after a recent discharge. She reports no known trauma. Her left calf area experienced spontaneous swelling, and now ecchymosis, and pain. She is on Lovenox. She had a recent DVT in the LLE. She c/o pain and swelling in the left calf and ankle area. PE LLE - calf is acutely swollen and ecchymotic - + tender over the entire calf, non specific - no signs of compartment syndrome - intact PF, DF, inversion, eversion at the left foot and ankle, but with pain - achilles tendon not ruptured - grossly NVI - knee and ankle look fine A recent ultrasound confirms no recurrent DVT. Current H/H 9.5/28.8 CT scan LLE - shows only a left calf muscle hematoma Imp Likely a spontaneous hematoma from the Lovenox. Rec No surgery needed Warm soaks to the left calf TID ROM, stretching exercises P.T. for ambulation if cleared by PMD
[2018-01-11] MEDS: INSULIN SLIDING SCALE (NOVOLOG) 1 VIAL SQ SCH ×2 (17:43→21:09)
[2018-01-11] MEDS ORDERED: INSULIN (NOVOLOG) ASPART 100 UNITS/ML 10ML VIAL ONE (21:02)
[2018-01-11] MEDS: CARVEDILOL 25 MG TABLET (FP) PO SCH (21:08)
[2018-01-11] MEDS: ENOXAPARIN NA (PORCINE) 80 MG/0.8 ML DISP.SYRIN SQ SCH (21:08)
[2018-01-11] MEDS: COLCHICINE 0.6 MG TABLET (FP) PO SCH (21:08)
--- NOTE | 2018-01-11 22:24 | PN ---
Progress Note (short form) - Note Progress Note: Known from the previous admission. daughter at bedside. was doing well until a day ago, when she saw her mom's leg with more bruise, pain and swelling. Labs/Imaging/Notes reviewed in detail. d/w daughter O/E: General: NAD HEENT: NCAT Cor: RRR Lungs: CTA b/l Abd: Soft LE: left: worsened than last week, echymosses+, Hard to palpate. DP+ Last Vital Signs Temp Pulse Resp BP Pulse Ox 98.0 F 62 20 156/67 100 01/11/18 17:15 01/11/18 17:15 01/11/18 17:15 01/11/18 17:15 01/11/18 10:55 CBC, BMP 01/11/18 04:45 01/11/18 04:45 Current Medications Generic Name Dose Route Start Last Admin Trade Name Freq PRN Reason Stop Dose Admin Acetaminophen 325 mg 01/11/18 14:11 01/11/18 14:45 Tylenol - PO 325 mg Q6H PRN Administration PAIN LEVEL 4 - 6 Carvedilol 25 mg 01/11/18 22:00 01/11/18 21:08 Coreg - PO 25 mg BID JONAS Administration Clopidogrel Bisulfate 75 mg 01/12/18 10:00 Plavix - PO DAILY [facility] Colchicine 0.6 mg 01/11/18 22:00 01/11/18 21:08 Colcrys - PO 0.6 mg BID JONAS Administration Diltiazem HCl 240 mg 01/12/18 10:00 Cardizem Cd - PO DAILY JONAS Enoxaparin Sodium 70 mg 01/11/18 22:00 01/11/18 21:08 Lovenox - SQ 70 mg BID JONAS Administration Furosemide 40 mg 01/12/18 10:00 Lasix - PO DAILY JONAS Hydroxychloroquine Sulfate 200 mg 01/12/18 10:00 Plaquenil - PO DAILY JONAS Insulin Aspart 1 vial 01/11/18 16:30 01/11/18 21:09 Novolog Vial Sliding Scale - SQ 4 units ACHS JONAS Administration Protocol Insulin Detemir 20 units 01/12/18 07:00 Levemir Vial SQ AM JONAS Oxycodone HCl 5 mg 01/11/18 14:11 01/11/18 14:44 Roxicodone - PO 5 mg Q6H PRN Administration PAIN LEVEL 4 - 6 Potassium Chloride 40 meq 01/12/18 10:00 K-Dur - PO DAILY JONAS Prednisone 10 mg 01/12/18 10:00 Deltasone - PO DAILY JONAS H/o Recent DVT ( d/c on Lovenox ) with an underlying hypercoag disorder ( Anticardiolipin Ab +, APLS) hematoma left lower extremity in the past admission, was better but now with acute worsening. ?recurrent bleed ?etiology vascular c/s CK monitoring frequent DP check (presently palpable) Close hct monitoring c.w lovenox careful monitroing of CBC. d/w daughter in detail
[2018-01-12] MEDS: ACETAMINOPHEN 325 MG TABLET (FP) PO PRN ×3 (01:05→22:07)
[2018-01-12] MEDS: oxyCODONE HCL 5 MG TABLET PO PRN ×3 (01:06→22:07)
[2018-01-12] MEDS: INSULIN SLIDING SCALE (NOVOLOG) 1 VIAL SQ SCH ×4 (06:38→22:09)
[2018-01-12] MEDS: INSULIN DETEMIR 100 UNITS/ML MDV SQ SCH (06:39)
[2018-01-12 08:07] LABS: BASO % 0.5 % (0-2.0); EOS % 0.7 % (0-4.5); HEMATOCRIT 26.9 % (32.4-45.2); HEMOGLOBIN 8.9 GM/dL (10.7-15.3); LYMPH % 18.5 % (8-40); MCH 29.9 pg (25.7-33.7); MCHC 33.1 g/dl (32.0-36.0); MEAN CELL VOLUME 90.4 fl (80-96); MEAN PLT VOLUME 7.5 fl (7.5-11.1); MONO % 9.6 % (3.8-10.2); NEUT % 70.7 % (42.8-82.8); PLATELET COUNT 332 K/MM3 (134-434); RBC 2.97 M/mm3 (3.60-5.2); RDW 18.5 % (11.6-15.6)
[2018-01-12 08:20] LABS: INR 1.21 (0.82-1.09); PROTHROMBIN TIME (PATIENT) 13.7 SEC (9.98-11.88)
[2018-01-12 08:38] LABS: CHLORIDE 104 mmol/L (98-107); POTASSIUM 4.3 mmol/L (3.5-5.1); SODIUM 140 mmol/L (136-145)
[2018-01-12 08:49] LABS: ALBUMIN 2.5 g/dl (3.4-5.0); ALK PHOS 80 U/L (45-117); ANION GAP 11 (8-16); BILIRUBIN,TOTAL 0.6 mg/dL (0.2-1.0); BLOOD UREA NITROGEN 14 mg/dL (7-18); CALCIUM 9.3 mg/dL (8.5-10.1); CO2 25 mmol/L (21-32); GLUCOSE,RANDOM 128 mg/dL (74-106); SGOT/AST 62 U/L (15-37); SGPT/ALT 40 U/L (12-78); TOT PROT 5.9 g/dl (6.4-8.2)
[2018-01-12] MEDS ORDERED: PT OWN MED DRAWER 7, Y5N ONE (09:52)
[2018-01-12] MEDS: CARVEDILOL 25 MG TABLET (FP) PO SCH ×2 (09:59→22:08)
[2018-01-12] MEDS: predniSONE 10 MG TABLET (UD) PO SCH (09:59)
[2018-01-12] MEDS: ENOXAPARIN NA (PORCINE) 80 MG/0.8 ML DISP.SYRIN SQ SCH ×2 (09:59→22:08)
[2018-01-12] MEDS: HYDROXYCHLOROQUINE SO4 200 MG TABLET (FP) PO SCH (09:59)
[2018-01-12] MEDS: FUROSEMIDE 40 MG TABLET (FP) PO SCH (09:59)
[2018-01-12] MEDS: CLOPIDOGREL BISULFATE 75 MG TABLET (FP) PO SCH (09:59)
[2018-01-12] MEDS: POTASSIUM CHLORIDE TABS 20 MEQ TABLET.ER (FP) PO SCH (09:59)
[2018-01-12] MEDS: COLCHICINE 0.6 MG TABLET (FP) PO SCH ×2 (09:59→22:09)
[2018-01-12] MEDS ORDERED: predniSONE 20 MG TABLET (UD) PO SCH (10:00)
--- NOTE | 2018-01-12 10:50 | EKG ---
Test Reason : Blood Pressure : / mmHG Vent. Rate : 063 BPM Atrial Rate : 063 BPM P-R Int : 188 ms QRS Dur : 124 ms QT Int : 430 ms P-R-T Axes : 015 009 150 degrees QTc Int : 440 ms Atrial-paced rhythm WITH PREMATURE ATRIAL COMPLEXES LEFT BUNDLE BRANCH BLOCK ABNORMAL ECG WHEN COMPARED WITH ECG OF 23-DEC-2017 08:44, PREMATURE ATRIAL COMPLEXES ARE NOW PRESENT Confirmed by TELLY EMERSON, GEORGINA ([id number]) on 01/12/2018 10:49:36 AM Referred By: Confirmed By:GEORGINA VARNER MD
[2018-01-12] MEDS ORDERED: INSULIN (NOVOLOG) ASPART 100 UNITS/ML 10ML VIAL ONE (12:43)
--- NOTE | 2018-01-12 15:27 | PN ---
Physical Exam: SUBJECTIVE: Patient seen and examined. Pain decreased, swelling less. OBJECTIVE: Vital Signs Period Temp Pulse Resp BP Sys/[place] Pulse Ox Last 24 Hr 97.9 F-98.8 F 62-90 18-20 137-156/58-74 100 PE Neuro: alert, awake, cn 2-12intact Pulm: CTAB CV: S1 s2 rrr Abd: s nt nd +bs Ext: LLE swelling +2 edema, tenderness, ecchymosis improved Laboratory Results - last 24 hr 01/11/18 01/11/18 01/11/18 14:45 17:35 20:50 WBC RBC Hgb Hct MCV MCH MCHC RDW Plt Count MPV Neutrophils % Lymphocytes % Monocytes % Eosinophils % Basophils % PT with INR INR Sodium Potassium Chloride Carbon Dioxide Anion Gap BUN Creatinine Creat Clearance w eGFR POC Glucometer 124 207 Random Glucose Calcium Total Bilirubin AST ALT Alkaline Phosphatase Creatine Kinase 373 H Creatine Kinase Index 1.6 CK-MB (CK-2) 6.077 H Total Protein Albumin 01/12/18 01/12/18 01/12/18 05:53 06:55 06:55 WBC 6.0 RBC 2.97 L Hgb 8.9 L Hct 26.9 L MCV 90.4 MCH 29.9 MCHC 33.1 RDW 18.5 H Plt Count 332 MPV 7.5 Neutrophils % 70.7 Lymphocytes % 18.5 Monocytes % 9.6 Eosinophils % 0.7 Basophils % 0.5 PT with INR 13.70 H INR 1.21 H Sodium Potassium Chloride Carbon Dioxide Anion Gap BUN Creatinine Creat Clearance w eGFR POC Glucometer 156 Random Glucose Calcium Total Bilirubin AST ALT Alkaline Phosphatase Creatine Kinase Creatine Kinase Index CK-MB (CK-2) Total Protein Albumin 01/12/18 01/12/18 01/12/18 06:55 06:55 12:41 WBC RBC Hgb Hct MCV MCH MCHC RDW Plt Count MPV Neutrophils % Lymphocytes % Monocytes % Eosinophils % Basophils % PT with INR INR Sodium 140 Potassium 4.3 Chloride 104 Carbon Dioxide 25 Anion Gap 11 BUN 14 Creatinine 1.0 Creat Clearance w eGFR 54.35 POC Glucometer 223 Random Glucose 128 H Calcium 9.3 Total Bilirubin 0.6 AST 62 H ALT 40 Alkaline Phosphatase 80 Creatine Kinase 1316 H Creatine Kinase Index 0.5 CK-MB (CK-2) 6.890 H Total Protein 5.9 L Albumin 2.5 L Active Medications Generic Name Dose Route Start Last Admin Trade Name Freq PRN Reason Stop Dose Admin Acetaminophen 325 mg 01/11/18 14:11 01/12/18 08:36 Tylenol - PO 325 mg Q6H PRN Administration PAIN LEVEL 4 - 6 Carvedilol 25 mg 01/11/18 22:00 01/12/18 09:59 Coreg - PO 25 mg BID JONAS Administration Clopidogrel Bisulfate 75 mg 01/12/18 10:00 01/12/18 09:59 Plavix - PO 75 mg DAILY JONAS Administration Colchicine 0.6 mg 01/11/18 22:00 01/12/18 09:59 Colcrys - PO 0.6 mg BID JONAS Administration Diltiazem HCl 240 mg 01/12/18 10:00 01/12/18 09:59 Cardizem Cd - PO 240 mg DAILY JONAS Administration Enoxaparin Sodium 70 mg 01/11/18 22:00 01/12/18 09:59 Lovenox - SQ 70 mg BID JONAS Administration Furosemide 40 mg 01/12/18 10:00 01/12/18 09:59 Lasix - PO 40 mg DAILY JONAS Administration Hydroxychloroquine Sulfate 200 mg 01/12/18 10:00 01/12/18 09:59 Plaquenil - PO 200 mg DAILY JONAS Administration Insulin Aspart 1 vial 01/11/18 16:30 01/12/18 12:49 Novolog Vial Sliding Scale - SQ 4 units ACHS JONAS Administration Protocol Insulin Detemir 20 units 01/12/18 07:00 01/12/18 06:39 Levemir Vial SQ 20 units AM JONAS Administration Oxycodone HCl 5 mg 01/11/18 14:11 01/12/18 08:36 Roxicodone - PO 5 mg Q6H PRN Administration PAIN LEVEL 4 - 6 Potassium Chloride 40 meq 01/12/18 10:00 01/12/18 09:59 K-Dur - PO 40 meq DAILY JONAS Administration Prednisone 10 mg 01/12/18 10:00 01/12/18 09:59 Deltasone - PO 10 mg DAILY JONAS Administration Assessment: 72 year old female admitted with increased LLE pain and swelling Plan: 1. LLE DVT with increase LLE pain/swelling, connective tissue disorder - Lovenox 70mg BID - + anticardiolipin AB, + MEGHANN, has been started on lupus meds - Plavix 75mg daily - No compartment syndrome per ortho - Pt can ambulate with PT - Warm soaks TID 2. CAD - Coreg 25mg BID - Cardizem 240mg daily 3. HTN - Lasix 40mg daily 4. Lupus - Colchicine 0.6mg BID - Decreased Prednisone 10mg daily - Plaquenil 200mg daily 5. DM II - ISS, BGM ACHS - Levemir 20units AM 6. Rhabdomylosis - Start gentle hydration ns 50cc/hr x1 L - Trend CPK Problem List - Problems (1) HX: anticoagulation Code(s): Z92.29 - PERSONAL HISTORY OF OTHER DRUG THERAPY (2) Hematoma of leg Code(s): S80.10XA - CONTUSION OF UNSPECIFIED LOWER LEG, INITIAL ENCOUNTER (3) Anticardiolipin antibody positive Code(s): R76.8 - OTHER SPECIFIED ABNORMAL IMMUNOLOGICAL FINDINGS IN SERUM (4) Diabetes Code(s): E11.9 - TYPE 2 DIABETES MELLITUS WITHOUT COMPLICATIONS Qualifiers: Diabetes mellitus type: type 2 (5) HLD (hyperlipidemia) Code(s): E78.5 - HYPERLIPIDEMIA, UNSPECIFIED (6) Hypertension Code(s): I10 - ESSENTIAL (PRIMARY) HYPERTENSION Qualifiers: Hypertension type: essential hypertension Qualified Code(s): I10 - Essential (primary) hypertension (7) Lupus (systemic lupus erythematosus) Code(s): M32.9 - SYSTEMIC LUPUS ERYTHEMATOSUS, UNSPECIFIED (8) Weakness Code(s): R53.1 - WEAKNESS Visit type - Emergency Visit Emergency Visit: Yes ED Registration Date: 01/11/18 Care time: The patient presented to the Emergency Department on the above date and was hospitalized for further evaluation of their emergent condition. - New Patient This patient is new to me today: No - Critical Care Critical Care patient: No
[2018-01-12] MEDS ORDERED: SODIUM CHLORIDE 1,000 ML IV SCH (16:45)
--- NOTE | 2018-01-12 20:59 | PN ---
Progress Note, Physician Chief Complaint: Pt A&Ox3; left leg pain is still present, but more tolerable. No chest pain or dyspnea. History of Present Illness: 72-year-old woman with left lower extremity DVT complaining and hematoma complaining of worsening swelling and pain to the left lower extremity. Patient with extensive admission in the hospital at [facility] and has been inpatient at [facility]. Patient was discharged to home on 01/10/2018. As per daughter patient did extensive walking with the walker at home and seemed has worsened hematoma to the left lower extremity. Patient has a past medical history of PAF on Coumadin; CVA, hypertension, renal artery stenosis, coronary artery disease, anticardiolipin AB+, pericardial effusion, diabetes - Current Medication List Current Medications: Active Medications Acetaminophen (Tylenol -) 325 mg PO Q6H PRN PRN Reason: PAIN LEVEL 4 - 6 Last Admin: 01/12/18 08:36 Dose: 325 mg Carvedilol (Coreg -) 25 mg PO BID [facility] Last Admin: 01/12/18 09:59 Dose: 25 mg Clopidogrel Bisulfate (Plavix -) 75 mg PO DAILY [facility] Last Admin: 01/12/18 09:59 Dose: 75 mg Colchicine (Colcrys -) 0.6 mg PO BID [facility] Last Admin: 01/12/18 09:59 Dose: 0.6 mg Diltiazem HCl (Cardizem Cd -) 240 mg PO DAILY [facility] Last Admin: 01/12/18 09:59 Dose: 240 mg Enoxaparin Sodium (Lovenox -) 70 mg SQ BID [facility] Last Admin: 01/12/18 09:59 Dose: 70 mg Furosemide (Lasix -) 40 mg PO DAILY [facility] Last Admin: 01/12/18 09:59 Dose: 40 mg Hydroxychloroquine Sulfate (Plaquenil -) 200 mg PO DAILY [facility] Last Admin: 01/12/18 09:59 Dose: 200 mg Sodium Chloride (Normal Saline -) 1,000 mls @ 50 mls/hr IV ASDIR [facility] Stop: 01/13/18 16:39 Last Admin: 01/12/18 16:48 Dose: 50 mls/hr Insulin Aspart (Novolog Vial Sliding Scale -) 1 vial SQ ACHS [facility] PRN Reason: Protocol Last Admin: 01/12/18 16:57 Dose: 6 units Insulin Detemir (Levemir Vial) 20 units SQ AM [facility] Last Admin: 01/12/18 06:39 Dose: 20 units Oxycodone HCl (Roxicodone -) 5 mg PO Q6H PRN PRN Reason: PAIN LEVEL 4 - 6 Last Admin: 01/12/18 08:36 Dose: 5 mg Potassium Chloride (K-Dur -) 40 meq PO DAILY [facility] Last Admin: 01/12/18 09:59 Dose: 40 meq Prednisone (Deltasone -) 10 mg PO DAILY [facility] Last Admin: 01/12/18 09:59 Dose: 10 mg - Objective Vital Signs: Vital Signs Temperature 97.9 F 01/12/18 14:32 Pulse Rate 65 01/12/18 14:32 Respiratory Rate 20 01/12/18 14:32 Blood Pressure 137/58 01/12/18 14:32 O2 Sat by Pulse Oximetry (%) 100 01/12/18 10:00 Constitutional: Yes: Calm Eyes: Yes: WNL HENT: Yes: WNL Neck: Yes: WNL Cardiovascular: Yes: Pulse Irregular, Murmur (2/4 diastolic murmur, RSB-->base) , S2 (split). No: JVD Respiratory: Yes: Regular. No: Rales, Wheezes Gastrointestinal: Yes: Soft ...Rectal Exam: Yes: Deferred Genitourinary: No: Anuria Breast(s): Yes: WNL Musculoskeletal: Yes: Muscle Pain Extremities: Yes: Cool Edema: Yes Edema: LLE: 2+ Peripheral Pulses WNL: Yes Integumentary: Yes: Bruising (LLE poplteal region) Neurological: Yes: WNL Psychiatric: Yes: WNL Labs: CBC, BMP 01/12/18 06:55 01/12/18 06:55 INR, PTT INR 1.21 (0.82-1.09) H 01/12/18 06:55 Abnormal Lab Results 01/12/18 01/12/18 01/12/18 06:55 06:55 06:55 RBC 2.97 L Hgb 8.9 L Hct 26.9 L RDW 18.5 H PT with INR 13.70 H INR 1.21 H Random Glucose 128 H AST 62 H Creatine Kinase CK-MB (CK-2) Total Protein 5.9 L Albumin 2.5 L 01/12/18 06:55 RBC Hgb Hct RDW PT with INR INR Random Glucose AST Creatine Kinase 1316 H CK-MB (CK-2) 6.890 H Total Protein Albumin Problem List - Problems (1) Hematoma of leg Code(s): S80.10XA - CONTUSION OF UNSPECIFIED LOWER LEG, INITIAL ENCOUNTER Qualifiers: Encounter type: initial encounter Laterality: left Qualified Code(s): S80.12XA - Contusion of left lower leg, initial encounter (2) Afib Assessment/Plan: On carvedilol and diltiazem. On Lovenox (DVT; AF). Code(s): I48.91 - UNSPECIFIED ATRIAL FIBRILLATION Qualifiers: Atrial fibrillation type: paroxysmal Qualified Code(s): I48.0 - Paroxysmal atrial fibrillation (3) Anticardiolipin antibody positive Code(s): R76.8 - OTHER SPECIFIED ABNORMAL IMMUNOLOGICAL FINDINGS IN SERUM (4) Diabetes Code(s): E11.9 - TYPE 2 DIABETES MELLITUS WITHOUT COMPLICATIONS Qualifiers: Diabetes mellitus type: type 2 (5) HLD (hyperlipidemia) Code(s): E78.5 - HYPERLIPIDEMIA, UNSPECIFIED (6) HTN (hypertension) Code(s): I10 - ESSENTIAL (PRIMARY) HYPERTENSION (7) Antiphospholipid antibody syndrome Code(s): D68.61 - ANTIPHOSPHOLIPID SYNDROME (8) DVT (deep venous thrombosis) Assessment/Plan: Recent DVT; now with LLE hematoma after felt her leg "twist" while using walker at home. On Lovenox 1 mg/Kg BW bid pending decision on PO agent. Code(s): I82.409 - ACUTE EMBOLISM AND THOMBOS UNSP DEEP VN UNSP LOWER EXTREMITY Qualifiers: DVT location: lower extremity Affected thrombotic vein of extremity: popliteal Chronicity: acute Laterality: left Qualified Code(s): I82.432 - Acute embolism and thrombosis of left popliteal vein
[2018-01-13] MEDS: INSULIN DETEMIR 100 UNITS/ML MDV SQ SCH (06:46)
[2018-01-13] MEDS: INSULIN SLIDING SCALE (NOVOLOG) 1 VIAL SQ SCH ×4 (06:47→22:07)
[2018-01-13 07:42] LABS: BASO % 0.3 % (0-2.0); EOS % 0.7 % (0-4.5); HEMATOCRIT 22.1 % (32.4-45.2); HEMOGLOBIN 7.4 GM/dL (10.7-15.3); LYMPH % 22.8 % (8-40); MCH 30.1 pg (25.7-33.7); MCHC 33.3 g/dl (32.0-36.0); MEAN CELL VOLUME 90.4 fl (80-96); MONO % 10.3 % (3.8-10.2); NEUT % 65.9 % (42.8-82.8); PLATELET COUNT 265 K/MM3 (134-434); RBC 2.44 M/mm3 (3.60-5.2); RDW 18.4 % (11.6-15.6); WHITE BLOOD COUNT 7.1 K/mm3 (4.0-10.0)
--- NOTE | 2018-01-13 09:22 | PN ---
Progress Note (short form) - Note Progress Note: Ortho Pt seen and examined feeling slightly better today PE- + ttp, + ecchymosis, + swelling, able to DF and PF nvi a/p PT eval wbat elevation warm soaks tid will follow d/w Dr. Horn
[2018-01-13] MEDS ORDERED: PT OWN MED DRAWER 7, Y5N ONE ×3 (09:48→21:41)
[2018-01-13] MEDS ORDERED: HEPARIN NA (PORCINE) 5,000 UNITS/ML 1ML VIAL IVPUSH PRN ×2 (09:53)
[2018-01-13] MEDS: CLOPIDOGREL BISULFATE 75 MG TABLET (FP) PO SCH ×2 (09:58→10:32)
[2018-01-13] MEDS ORDERED: HEPARIN - 25,000 UNIT in SODIUM CHLORIDE 495 ML IV SCH (10:00)
[2018-01-13] MEDS ORDERED: SODIUM CHLORIDE 1,000 ML IV SCH (10:00)
[2018-01-13] MEDS: CARVEDILOL 25 MG TABLET (FP) PO SCH ×2 (10:32→22:03)
[2018-01-13] MEDS: POTASSIUM CHLORIDE TABS 20 MEQ TABLET.ER (FP) PO SCH (10:32)
[2018-01-13] MEDS: predniSONE 10 MG TABLET (UD) PO SCH (10:33)
[2018-01-13] MEDS: oxyCODONE HCL 5 MG TABLET PO PRN (10:33)
[2018-01-13] MEDS: FUROSEMIDE 40 MG TABLET (FP) PO SCH (10:33)
[2018-01-13] MEDS: COLCHICINE 0.6 MG TABLET (FP) PO SCH ×2 (10:33→22:02)
[2018-01-13] MEDS: HYDROXYCHLOROQUINE SO4 200 MG TABLET (FP) PO SCH (10:33)
[2018-01-13] MEDS: ENOXAPARIN NA (PORCINE) 80 MG/0.8 ML DISP.SYRIN SQ SCH ×2 (11:01→22:04)
--- NOTE | 2018-01-13 11:26 | PN ---
Progress Note (short form) - Note Progress Note: VAscular surgery Pt with DVT in left leg in a couple of weeks ago. Then was converted to coumadin and went to rehab. There after DC, pt reported left lower ext swelling. On admission to the hospital , Left lower ext CT shows hematoma in left calf, intramuscular. On exam -- Left leg - left calf swelling. Palpable DP pulse. Motor and sensory are intact. According to the medical team , pt's leg is getting better. Will watch closely. Ortho evalauted the pt, no signs of compartment syndrome. Cont AC with lovenox. Ambulate with PT Chalo casey DO
--- NOTE | 2018-01-13 11:35 | PN ---
Progress Note, Physician History of Present Illness: seen and examined today. continued LLE pain, swelling slightly improved. difficulty bearing weight due to pain. - Current Medication List Current Medications: Active Medications Acetaminophen (Tylenol -) 325 mg PO Q6H PRN PRN Reason: PAIN LEVEL 4 - 6 Last Admin: 01/12/18 22:07 Dose: 325 mg Carvedilol (Coreg -) 25 mg PO BID [facility] Last Admin: 01/13/18 10:32 Dose: 25 mg Clopidogrel Bisulfate (Plavix -) 75 mg PO DAILY [facility] Last Admin: 01/13/18 10:32 Dose: 75 mg Colchicine (Colcrys -) 0.6 mg PO BID [facility] Last Admin: 01/13/18 10:33 Dose: 0.6 mg Diltiazem HCl (Cardizem Cd -) 240 mg PO DAILY [facility] Last Admin: 01/13/18 10:33 Dose: 240 mg Dorzolamide HCl (Trusopt 2%) 1 drop OU BID [facility] Enoxaparin Sodium (Lovenox -) 70 mg SQ BID [facility] Last Admin: 01/13/18 11:01 Dose: 70 mg Furosemide (Lasix -) 40 mg PO DAILY [facility] Last Admin: 01/13/18 10:33 Dose: 40 mg Hydroxychloroquine Sulfate (Plaquenil -) 200 mg PO DAILY [facility] Last Admin: 01/13/18 10:33 Dose: 200 mg Sodium Chloride (Normal Saline -) 1,000 mls @ 50 mls/hr IV ASDIR [facility] Stop: 01/13/18 16:39 Last Admin: 01/12/18 16:48 Dose: 50 mls/hr Sodium Chloride (Normal Saline -) 1,000 mls @ 125 mls/hr IV ASDIR [facility] Stop: 01/13/18 17:59 Last Admin: 01/13/18 11:01 Dose: 125 mls/hr Insulin Aspart (Novolog Vial Sliding Scale -) 1 vial SQ ACHS [facility] PRN Reason: Protocol Last Admin: 01/13/18 06:47 Dose: Not Given Insulin Detemir (Levemir Vial) 20 units SQ AM [facility] Last Admin: 01/13/18 06:46 Dose: 20 units Latanoprost (Xalatan 0.005% Eye Drops -) 1 drop OU HS [facility] Oxycodone HCl (Roxicodone -) 5 mg PO Q6H PRN PRN Reason: PAIN LEVEL 4 - 6 Last Admin: 01/13/18 10:33 Dose: 5 mg Potassium Chloride (K-Dur -) 40 meq PO DAILY [facility] Last Admin: 01/13/18 10:32 Dose: 40 meq Prednisone (Deltasone -) 10 mg PO DAILY [facility] Last Admin: 01/13/18 10:33 Dose: 10 mg Timolol Maleate (Timoptic 0.5%) 1 drop OU BID [facility] - Objective Vital Signs: Vital Signs Temperature 98.6 F 01/13/18 06:00 Pulse Rate 60 01/13/18 06:00 Respiratory Rate 20 01/13/18 06:00 Blood Pressure 132/53 01/13/18 06:00 O2 Sat by Pulse Oximetry (%) 100 01/12/18 22:00 Constitutional: Yes: No Distress, Calm Eyes: Yes: Conjunctiva Clear, EOM Intact, PERRL HENT: Yes: Atraumatic, Normocephalic Neck: Yes: Supple, Trachea Midline Cardiovascular: Yes: Regular Rate and Rhythm, S1, S2. No: Bradycardia, Tachycardia, Pulse Irregular, Bruit, JVD, Gallop, Murmur, Rub, S3, S4, Varicosities Respiratory: Yes: Regular, CTA Bilaterally. No: Rales, Rhonchi, Wheezes Gastrointestinal: Yes: Normal Bowel Sounds, Soft. No: Distention, Tenderness Musculoskeletal: Yes: Muscle Pain Extremities: Yes: Calf Tenderness Edema: Yes Edema: LLE: 1+ Peripheral Pulses WNL: Yes Peripheral Pulses: Left Doralis Pedis: 2+, Right Dorsalis Pedis: 2+ Integumentary: Yes: Bruising Neurological: Yes: Alert, Oriented Psychiatric: Yes: Alert, Oriented Labs: CBC, BMP 01/13/18 06:00 01/12/18 06:55 INR, PTT INR 1.21 (0.82-1.09) H 01/12/18 06:55 - ....Imaging Chest X-ray: Report Reviewed, Image Reviewed EKG: Report Reviewed, Image Reviewed Other: Report Reviewed, Image Reviewed Assessment/Plan IMP: Anticardiolipin Ab + Suspected connective tissue disorder with markedly + MEGHANN Acute DVT while on Coumadin with fluctuating INRs Bilateral PNA (post-influenza), resolved PAF s/p PPM, prior CVA hematoma left lower extremity, resolved now worsened REC: Recent LLE DVT Recurrent hematoma LLE Hypercoagulable thus high risk to stop AC monitor H/H and transfuse as needed DP/PT pulses 2+ able to flex/extend foot except limited by pain, sensation intact, CK level noted some evidence of muscle breakdown Monitor closely for development of compartment syndrome Leg elevation Cont Lovenox for now
--- NOTE | 2018-01-13 11:36 | PN ---
Progress Note (short form) - Note Progress Note: Events noted Patients seen and examined. +pain in the LLE. mildly improved echymosses. O/E: General: NAD HEENT: NCAT Cor: RRR Lungs: CTA b/l Abd: Soft LE: left: +tense, movement possible at the ankle, improvement in echymosses seen. Last Vital Signs Temp Pulse Resp BP Pulse Ox 98.6 F 60 20 132/53 100 01/13/18 06:00 01/13/18 06:00 01/13/18 06:00 01/13/18 06:00 01/12/18 22:00 CBC, BMP 01/13/18 06:00 01/12/18 06:55 Current Medications Generic Name Dose Route Start Last Admin Trade Name Freq PRN Reason Stop Dose Admin Acetaminophen 325 mg 01/11/18 14:11 01/12/18 22:07 Tylenol - PO 325 mg Q6H PRN Administration PAIN LEVEL 4 - 6 Carvedilol 25 mg 01/11/18 22:00 01/13/18 10:32 Coreg - PO 25 mg BID JONAS Administration Clopidogrel Bisulfate 75 mg 01/12/18 10:00 01/13/18 10:32 Plavix - PO 75 mg DAILY JONAS Administration Colchicine 0.6 mg 01/11/18 22:00 01/13/18 10:33 Colcrys - PO 0.6 mg BID JONAS Administration Diltiazem HCl 240 mg 01/12/18 10:00 01/13/18 10:33 Cardizem Cd - PO 240 mg DAILY JONAS Administration Dorzolamide HCl 1 drop 01/13/18 10:00 Trusopt 2% OU BID JONAS Enoxaparin Sodium 70 mg 01/13/18 10:30 01/13/18 11:01 Lovenox - SQ 70 mg BID JONAS Administration Furosemide 40 mg 01/12/18 10:00 01/13/18 10:33 Lasix - PO 40 mg DAILY JONAS Administration Hydroxychloroquine Sulfate 200 mg 01/12/18 10:00 01/13/18 10:33 Plaquenil - PO 200 mg DAILY JONAS Administration Sodium Chloride 1,000 mls @ 50 mls/hr 01/12/18 16:45 01/12/18 16:48 Normal Saline - IV 01/13/18 16:39 50 mls/hr ASDIR JONAS Administration Sodium Chloride 1,000 mls @ 125 mls/hr 01/13/18 10:00 01/13/18 11:01 Normal Saline - IV 01/13/18 17:59 125 mls/hr ASDIR JONAS Administration Insulin Aspart 1 vial 01/11/18 16:30 01/13/18 06:47 Novolog Vial Sliding Scale - SQ Not Given ACHS [facility] Protocol Insulin Detemir 20 units 01/12/18 07:00 01/13/18 06:46 Levemir Vial SQ 20 units AM JONAS Administration Latanoprost 1 drop 01/13/18 22:00 Xalatan 0.005% Eye Drops - OU HS JONAS Oxycodone HCl 5 mg 01/11/18 14:11 01/13/18 10:33 Roxicodone - PO 5 mg Q6H PRN Administration PAIN LEVEL 4 - 6 Potassium Chloride 40 meq 01/12/18 10:00 01/13/18 10:32 K-Dur - PO 40 meq DAILY JONAS Administration Prednisone 10 mg 01/12/18 10:00 01/13/18 10:33 Deltasone - PO 10 mg DAILY JONAS Administration Timolol Maleate 1 drop 01/13/18 10:00 Timoptic 0.5% OU BID JONAS H/o Recent DVT ( d/c on Lovenox ) with an underlying hypercoag disorder ( Anticardiolipin Ab +, APLS) hematoma left lower extremity in the past admission, was better but now with acute worsening. drop in Hct. +pain in the LLE increase CPK. appreciate vascular c/s close monitoring for compartment syndrome. DP + one unit of PRBC now c/w systemic AC, Lovenox vs UFH. close monitoring. d/wHospitalist JUNIOR PROGRAMMER, daughter over the phone
[2018-01-13] MEDS: DORZOLAMIDE 2% HCL OPHTHALMIC SOLUTION 10 ML BOTTLE OU SCH ×2 (11:52→22:09)
[2018-01-13] MEDS: TIMOLOL 0.5% OPHTHALMIC SOL 5 ML BOTTLE OU SCH ×2 (11:52→22:09)
--- NOTE | 2018-01-13 12:15 | PN ---
Physical Exam: SUBJECTIVE: Patient seen and examined. She has pain with left ankle flexing, however attempting to ambulate. Overall LLE clinically improved OBJECTIVE: Vital Signs Period Temp Pulse Resp BP Sys/Nowak Pulse Ox Last 24 Hr 97.9 F-98.6 F 60-68 18-20 132-150/53-60 100 PE Neuro: alert, awake, cn 2-12intact Pulm: CTAB CV: S1 s2 rrr Abd: s nt nd +bs Ext: LLE calf swelling, tenderness, edema - improved, ecchymosis improved , + DP pulses, + sensory, able to flex ankle with assistance, flex ankle alone 20- 30degrees Laboratory Results - last 24 hr 01/13/18 01/13/18 01/13/18 05:58 06:00 06:00 WBC 7.1 RBC 2.44 L Hgb 7.4 L D Hct 22.1 L D MCV 90.4 MCH 30.1 MCHC 33.3 RDW 18.4 H Plt Count 265 D MPV 8.0 Neutrophils % 65.9 Lymphocytes % 22.8 D Monocytes % 10.3 H Eosinophils % 0.7 Basophils % 0.3 POC Glucometer 105 Creatine Kinase 1569 H Creatine Kinase Index 0.2 CK-MB (CK-2) 3.603 H Blood Type Antibody Screen Crossmatch 01/13/18 01/13/18 10:45 11:51 WBC RBC Hgb Hct MCV MCH MCHC RDW Plt Count MPV Neutrophils % Lymphocytes % Monocytes % Eosinophils % Basophils % POC Glucometer 189 Creatine Kinase Creatine Kinase Index CK-MB (CK-2) Blood Type O POSITIVE Antibody Screen Negative Crossmatch See Detail Active Medications Generic Name Dose Route Start Last Admin Trade Name Freq PRN Reason Stop Dose Admin Acetaminophen 325 mg 01/11/18 14:11 01/12/18 22:07 Tylenol - PO 325 mg Q6H PRN Administration PAIN LEVEL 4 - 6 Carvedilol 25 mg 01/11/18 22:00 01/13/18 10:32 Coreg - PO 25 mg BID JONAS Administration Clopidogrel Bisulfate 75 mg 01/12/18 10:00 01/13/18 10:32 Plavix - PO 75 mg DAILY JONAS Administration Colchicine 0.6 mg 01/11/18 22:00 01/13/18 10:33 Colcrys - PO 0.6 mg BID JONAS Administration Diltiazem HCl 240 mg 01/12/18 10:00 01/13/18 10:33 Cardizem Cd - PO 240 mg DAILY JONAS Administration Dorzolamide HCl 1 drop 01/13/18 10:00 01/13/18 11:52 Trusopt 2% OU 1 drop BID JONAS Administration Enoxaparin Sodium 70 mg 01/13/18 10:30 01/13/18 11:01 Lovenox - SQ 70 mg BID JONAS Administration Furosemide 40 mg 01/12/18 10:00 01/13/18 10:33 Lasix - PO 40 mg DAILY JONAS Administration Hydroxychloroquine Sulfate 200 mg 01/12/18 10:00 01/13/18 10:33 Plaquenil - PO 200 mg DAILY JONAS Administration Sodium Chloride 1,000 mls @ 50 mls/hr 01/12/18 16:45 01/12/18 16:48 Normal Saline - IV 01/13/18 16:39 50 mls/hr ASDIR JONAS Administration Sodium Chloride 1,000 mls @ 125 mls/hr 01/13/18 10:00 01/13/18 11:01 Normal Saline - IV 01/13/18 17:59 125 mls/hr ASDIR JONAS Administration Insulin Aspart 1 vial 01/11/18 16:30 01/13/18 11:52 Novolog Vial Sliding Scale - SQ 2 units ACHS JONAS Administration Protocol Insulin Detemir 20 units 01/12/18 07:00 01/13/18 06:46 Levemir Vial SQ 20 units AM JONAS Administration Latanoprost 1 drop 01/13/18 22:00 Xalatan 0.005% Eye Drops - OU HS [facility] Oxycodone HCl 5 mg 01/11/18 14:11 01/13/18 10:33 Roxicodone - PO 5 mg Q6H PRN Administration PAIN LEVEL 4 - 6 Potassium Chloride 40 meq 01/12/18 10:00 01/13/18 10:32 K-Dur - PO 40 meq DAILY JONAS Administration Prednisone 10 mg 01/12/18 10:00 01/13/18 10:33 Deltasone - PO 10 mg DAILY JONAS Administration Timolol Maleate 1 drop 01/13/18 10:00 01/13/18 11:52 Timoptic 0.5% OU 1 drop BID JONAS Administration Assessment: 72 year old female admitted with increased LLE pain and swelling Plan: 1. 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 Acute blood loss anemia - Transfuse 1 units pack cells now - Trend CBC 3. LLE hematoma vs Rhabdomylosis - CPK rising, likely due to hematoma - Give 1L NS @125cc/hr, then resume NS 50cc/hr - Trend CPK 4. CAD - Coreg 25mg BID - Cardizem 240mg daily 5. HTN - Lasix 40mg daily 6. Lupus - Colchicine 0.6mg BID - Decreased Prednisone 10mg daily - Plaquenil 200mg daily 7. DM II - ISS, BGM ACHS - Levemir 20units AM Problem List - Problems (1) HX: anticoagulation Code(s): Z92.29 - PERSONAL HISTORY OF OTHER DRUG THERAPY (2) Hematoma of leg Code(s): S80.10XA - CONTUSION OF UNSPECIFIED LOWER LEG, INITIAL ENCOUNTER Qualifiers: Encounter type: initial encounter Laterality: left Qualified Code(s): S80.12XA - Contusion of left lower leg, initial encounter (3) Anticardiolipin antibody positive Code(s): R76.8 - OTHER SPECIFIED ABNORMAL IMMUNOLOGICAL FINDINGS IN SERUM (4) Diabetes Code(s): E11.9 - TYPE 2 DIABETES MELLITUS WITHOUT COMPLICATIONS Qualifiers: Diabetes mellitus type: type 2 (5) HLD (hyperlipidemia) Code(s): E78.5 - HYPERLIPIDEMIA, UNSPECIFIED (6) Hypertension Code(s): I10 - ESSENTIAL (PRIMARY) HYPERTENSION Qualifiers: Hypertension type: essential hypertension Qualified Code(s): I10 - Essential (primary) hypertension (7) Lupus (systemic lupus erythematosus) Code(s): M32.9 - SYSTEMIC LUPUS ERYTHEMATOSUS, UNSPECIFIED (8) Weakness Code(s): R53.1 - WEAKNESS Visit type - Emergency Visit Emergency Visit: Yes ED Registration Date: 01/11/18 Care time: The patient presented to the Emergency Department on the above date and was hospitalized for further evaluation of their emergent condition. - New Patient This patient is new to me today: No - Critical Care Critical Care patient: No
[2018-01-13] MEDS ORDERED: INSULIN (NOVOLOG) ASPART 100 UNITS/ML 10ML VIAL ONE (17:10)
[2018-01-13] MEDS: LATANOPROST 0.005% OPHTH SOLN 2.5ML BOTTLE OU SCH (22:10)
--- NOTE | 2018-01-13 22:31 | PN ---
Progress Note, Physician History of Present Illness: Pt states that the swelling has improved - Current Medication List Current Medications: Active Medications Acetaminophen (Tylenol -) 325 mg PO Q6H PRN PRN Reason: PAIN LEVEL 4 - 6 Last Admin: 01/12/18 22:07 Dose: 325 mg Carvedilol (Coreg -) 25 mg PO BID [facility] Last Admin: 01/13/18 22:03 Dose: 25 mg Clopidogrel Bisulfate (Plavix -) 75 mg PO DAILY [facility] Last Admin: 01/13/18 10:32 Dose: 75 mg Colchicine (Colcrys -) 0.6 mg PO BID [facility] Last Admin: 01/13/18 22:02 Dose: 0.6 mg Diltiazem HCl (Cardizem Cd -) 240 mg PO DAILY [facility] Last Admin: 01/13/18 10:33 Dose: 240 mg Dorzolamide HCl (Trusopt 2%) 1 drop OU BID [facility] Last Admin: 01/13/18 22:09 Dose: 1 drop Enoxaparin Sodium (Lovenox -) 70 mg SQ BID [facility] Last Admin: 01/13/18 22:04 Dose: 70 mg Furosemide (Lasix -) 40 mg PO DAILY [facility] Last Admin: 01/13/18 10:33 Dose: 40 mg Hydroxychloroquine Sulfate (Plaquenil -) 200 mg PO DAILY [facility] Last Admin: 01/13/18 10:33 Dose: 200 mg Insulin Aspart (Novolog Vial Sliding Scale -) 1 vial SQ ACHS [facility] PRN Reason: Protocol Last Admin: 01/13/18 22:07 Dose: 2 units Insulin Detemir (Levemir Vial) 20 units SQ AM [facility] Last Admin: 01/13/18 06:46 Dose: 20 units Latanoprost (Xalatan 0.005% Eye Drops -) 1 drop OU HS [facility] Last Admin: 01/13/18 22:10 Dose: 1 drop Oxycodone HCl (Roxicodone -) 5 mg PO Q6H PRN PRN Reason: PAIN LEVEL 4 - 6 Last Admin: 01/13/18 10:33 Dose: 5 mg Potassium Chloride (K-Dur -) 40 meq PO DAILY [facility] Last Admin: 01/13/18 10:32 Dose: 40 meq Prednisone (Deltasone -) 10 mg PO DAILY [facility] Last Admin: 01/13/18 10:33 Dose: 10 mg Timolol Maleate (Timoptic 0.5%) 1 drop OU BID JONAS Last Admin: 01/13/18 22:09 Dose: 1 drop - Objective Vital Signs: Vital Signs Temperature 98.9 F 01/13/18 14:23 Pulse Rate 58 L 01/13/18 14:23 Respiratory Rate 20 01/13/18 14:23 Blood Pressure 128/49 01/13/18 14:23 O2 Sat by Pulse Oximetry (%) 96 01/13/18 10:00 Neck: Yes: WNL, Supple Cardiovascular: Yes: WNL, Regular Rate and Rhythm Respiratory: Yes: WNL, Regular, CTA Bilaterally Gastrointestinal: Yes: WNL, Normal Bowel Sounds, Soft Extremities: Yes: Other ((+) swelling/ecchymosis LLE) Labs: CBC, BMP 01/13/18 06:00 01/12/18 06:55 INR, PTT INR 1.21 (0.82-1.09) H 01/12/18 06:55
[2018-01-14] MEDS: INSULIN SLIDING SCALE (NOVOLOG) 1 VIAL SQ SCH ×4 (06:20→21:12)
[2018-01-14] MEDS: INSULIN DETEMIR 100 UNITS/ML MDV SQ SCH (06:55)
[2018-01-14 08:19] LABS: BASO % 0.4 % (0-2.0); EOS % 0.6 % (0-4.5); HEMOGLOBIN 8.2 GM/dL (10.7-15.3); LYMPH % 23.4 % (8-40); MCH 30.1 pg (25.7-33.7); MCHC 34.1 g/dl (32.0-36.0); MEAN CELL VOLUME 88.3 fl (80-96); MONO % 9.9 % (3.8-10.2); NEUT % 65.7 % (42.8-82.8); PLATELET COUNT 244 K/MM3 (134-434); RBC 2.71 M/mm3 (3.60-5.2); RDW 18.2 % (11.6-15.6); WHITE BLOOD COUNT 6.7 K/mm3 (4.0-10.0)
[2018-01-14 08:43] LABS: ALBUMIN 2.1 g/dl (3.4-5.0); ANION GAP 9 (8-16); BLOOD UREA NITROGEN 10 mg/dL (7-18); CALCIUM 8.2 mg/dL (8.5-10.1); CHLORIDE 106 mmol/L (98-107); CO2 25 mmol/L (21-32); CREATININE 0.8 mg/dL (0.55-1.02); GLUCOSE,RANDOM 67 mg/dL (74-106); POTASSIUM 4.2 mmol/L (3.5-5.1); SGOT/AST 76 U/L (15-37); SGPT/ALT 39 U/L (12-78); SODIUM 140 mmol/L (136-145)
[2018-01-14 08:57] LABS: ALK PHOS 73 U/L (45-117); BILIRUBIN,TOTAL 0.7 mg/dL (0.2-1.0); TOT PROT 5.2 g/dl (6.4-8.2)
[2018-01-14] MEDS ORDERED: PT OWN MED DRAWER 7, Y5N ONE (09:06)
[2018-01-14] MEDS: DORZOLAMIDE 2% HCL OPHTHALMIC SOLUTION 10 ML BOTTLE OU SCH ×2 (09:13→21:13)
[2018-01-14] MEDS: COLCHICINE 0.6 MG TABLET (FP) PO SCH ×2 (09:13→21:10)
[2018-01-14] MEDS: HYDROXYCHLOROQUINE SO4 200 MG TABLET (FP) PO SCH (09:13)
[2018-01-14] MEDS: ACETAMINOPHEN 325 MG TABLET (FP) PO PRN (09:14)
[2018-01-14] MEDS: POTASSIUM CHLORIDE TABS 20 MEQ TABLET.ER (FP) PO SCH (09:14)
[2018-01-14] MEDS: TIMOLOL 0.5% OPHTHALMIC SOL 5 ML BOTTLE OU SCH ×2 (09:14→21:13)
[2018-01-14] MEDS: CLOPIDOGREL BISULFATE 75 MG TABLET (FP) PO SCH (09:14)
[2018-01-14] MEDS: ENOXAPARIN NA (PORCINE) 80 MG/0.8 ML DISP.SYRIN SQ SCH ×2 (09:14→21:10)
[2018-01-14] MEDS: CARVEDILOL 25 MG TABLET (FP) PO SCH ×2 (09:15→21:10)
[2018-01-14] MEDS: oxyCODONE HCL 5 MG TABLET PO PRN (09:15)
[2018-01-14] MEDS: predniSONE 10 MG TABLET (UD) PO SCH (09:15)
[2018-01-14] MEDS: FUROSEMIDE 40 MG TABLET (FP) PO SCH (09:16)
--- NOTE | 2018-01-14 10:32 | PN ---
Progress Note (short form) - Note Progress Note: Ortho Pt seen and examined- improving decr pain, decr swelling, incr rom, nvi no evidence of compartment syndrome a/p PT eval wbat elevation warm soaks tid will follow d/w Dr. Horn
--- NOTE | 2018-01-14 10:34 | PN ---
Progress Note, Physician History of Present Illness: seen and examined today with daughter at bedside. notes slight numbness on lateral aspect of L foot. pain slightly better. - Current Medication List Current Medications: Active Medications Acetaminophen (Tylenol -) 325 mg PO Q6H PRN PRN Reason: PAIN LEVEL 4 - 6 Last Admin: 01/14/18 09:14 Dose: 325 mg Carvedilol (Coreg -) 25 mg PO BID [facility] Last Admin: 01/14/18 09:15 Dose: 25 mg Clopidogrel Bisulfate (Plavix -) 75 mg PO DAILY [facility] Last Admin: 01/14/18 09:14 Dose: 75 mg Colchicine (Colcrys -) 0.6 mg PO BID [facility] Last Admin: 01/14/18 09:13 Dose: 0.6 mg Diltiazem HCl (Cardizem Cd -) 240 mg PO DAILY [facility] Last Admin: 01/14/18 09:14 Dose: 240 mg Dorzolamide HCl (Trusopt 2%) 1 drop OU BID [facility] Last Admin: 01/14/18 09:13 Dose: 1 drop Enoxaparin Sodium (Lovenox -) 70 mg SQ BID [facility] Last Admin: 01/14/18 09:14 Dose: 70 mg Furosemide (Lasix -) 40 mg PO DAILY [facility] Last Admin: 01/14/18 09:16 Dose: 40 mg Hydroxychloroquine Sulfate (Plaquenil -) 200 mg PO DAILY [facility] Last Admin: 01/14/18 09:13 Dose: 200 mg Insulin Aspart (Novolog Vial Sliding Scale -) 1 vial SQ ACHS [facility] PRN Reason: Protocol Last Admin: 01/14/18 06:20 Dose: Not Given Insulin Detemir (Levemir Vial) 20 units SQ AM [facility] Last Admin: 01/14/18 06:55 Dose: 20 units Latanoprost (Xalatan 0.005% Eye Drops -) 1 drop OU HS [facility] Last Admin: 01/13/18 22:10 Dose: 1 drop Oxycodone HCl (Roxicodone -) 5 mg PO Q6H PRN PRN Reason: PAIN LEVEL 4 - 6 Last Admin: 01/14/18 09:15 Dose: 5 mg Potassium Chloride (K-Dur -) 40 meq PO DAILY [facility] Last Admin: 01/14/18 09:14 Dose: 40 meq Prednisone (Deltasone -) 10 mg PO DAILY [facility] Last Admin: 01/14/18 09:15 Dose: 10 mg Timolol Maleate (Timoptic 0.5%) 1 drop OU BID [facility] Last Admin: 01/14/18 09:14 Dose: 1 drop - Objective Vital Signs: Vital Signs Temperature 98.9 F 01/14/18 07:10 Pulse Rate 61 01/14/18 07:10 Respiratory Rate 18 01/14/18 07:10 Blood Pressure 153/68 01/14/18 07:10 O2 Sat by Pulse Oximetry (%) 97 01/13/18 22:00 Constitutional: Yes: No Distress, Calm Eyes: Yes: Conjunctiva Clear, EOM Intact HENT: Yes: Atraumatic, Normocephalic Neck: Yes: Supple, Trachea Midline Cardiovascular: Yes: Regular Rate and Rhythm, Murmur, S1, S2. No: Bradycardia, Tachycardia, Pulse Irregular, Bruit, JVD, Gallop, Rub, S3, S4, Varicosities Respiratory: Yes: Regular, CTA Bilaterally. No: Rales, Rhonchi, Wheezes Gastrointestinal: Yes: Normal Bowel Sounds, Soft. No: Distention, Tenderness Extremities: Yes: Calf Tenderness, Other (ecchymosis) Edema: Yes Edema: LLE: 1+ Peripheral Pulses WNL: Yes Peripheral Pulses: Left Doralis Pedis: 2+, Right Dorsalis Pedis: 2+ Integumentary: Yes: Bruising Neurological: Yes: Alert, Oriented Psychiatric: Yes: Alert, Oriented Labs: CBC, BMP 01/14/18 07:00 01/14/18 07:00 INR, PTT INR 1.21 (0.82-1.09) H 01/12/18 06:55 - ....Imaging Chest X-ray: Report Reviewed, Image Reviewed EKG: Report Reviewed, Image Reviewed Other: Report Reviewed, Image Reviewed Assessment/Plan IMP: Anticardiolipin Ab + Suspected connective tissue disorder with markedly + MEGHANN Acute DVT while on Coumadin with fluctuating INRs Bilateral PNA (post-influenza), resolved PAF s/p PPM, prior CVA hematoma left lower extremity, resolved now worsened REC: Recent LLE DVT Recurrent hematoma LLE Hypercoagulable thus high risk to stop AC monitor H/H and transfuse as needed DP/PT pulses intact able to flex/extend foot except limited by pain, sensation intact, CK level noted some evidence of muscle breakdown, did not trend up today Now reporting mild numbness lateral aspect of L foot, unclear if new Monitor closely for development of compartment syndrome, ortho consult appreciated felt no evidence of compartment syndrome Vascular f/up Leg elevation Cont Lovenox for now
[2018-01-14] MEDS ORDERED: SODIUM CHLORIDE 1,000 ML IV SCH (11:45)
--- NOTE | 2018-01-14 14:21 | PN ---
Progress Note (short form) - Note Progress Note: Pt seen and examined. Feels better in terms of pain in the LLE ?new numbness in the LLE Otherwise denies any complains O/E: General: NAD HEENT: NCAT Cor: RRR Lungs: CTA b/l Abd: Soft LE: left: slight improvement in the LLE. Last Vital Signs Temp Pulse Resp BP Pulse Ox 98.1 F 62 18 120/45 99 01/14/18 14:18 01/14/18 14:18 01/14/18 14:18 01/14/18 14:18 01/14/18 10:00 CBC, BMP 01/14/18 07:00 01/14/18 07:00 Current Medications Generic Name Dose Route Start Last Admin Trade Name Freq PRN Reason Stop Dose Admin Acetaminophen 325 mg 01/11/18 14:11 01/14/18 09:14 Tylenol - PO 325 mg Q6H PRN Administration PAIN LEVEL 4 - 6 Carvedilol 25 mg 01/11/18 22:00 01/14/18 09:15 Coreg - PO 25 mg BID JONAS Administration Clopidogrel Bisulfate 75 mg 01/12/18 10:00 01/14/18 09:14 Plavix - PO 75 mg DAILY JONAS Administration Colchicine 0.6 mg 01/11/18 22:00 01/14/18 09:13 Colcrys - PO 0.6 mg BID JONAS Administration Diltiazem HCl 240 mg 01/12/18 10:00 01/14/18 09:14 Cardizem Cd - PO 240 mg DAILY JONAS Administration Dorzolamide HCl 1 drop 01/13/18 10:00 01/14/18 09:13 Trusopt 2% OU 1 drop BID JONAS Administration Enoxaparin Sodium 70 mg 01/13/18 10:30 01/14/18 09:14 Lovenox - SQ 70 mg BID JONAS Administration Furosemide 40 mg 01/12/18 10:00 01/14/18 09:16 Lasix - PO 40 mg DAILY JON[facility] Administration Hydroxychloroquine Sulfate 200 mg 01/12/18 10:00 01/14/18 09:13 Plaquenil - PO 200 mg DAILY [facility] Administration Sodium Chloride 1,000 mls @ 125 mls/hr 01/14/18 11:45 01/14/18 11:51 Normal Saline - IV 01/14/18 19:44 125 mls/hr ASDIR JONAS Administration Insulin Aspart 1 vial 01/11/18 16:30 01/14/18 11:25 Novolog Vial Sliding Scale - SQ 2 units ACHS JONAS Administration Protocol Insulin Detemir 20 units 01/12/18 07:00 01/14/18 06:55 Levemir Vial SQ 20 units AM [facility] Administration Latanoprost 1 drop 01/13/18 22:00 01/13/18 22:10 Xalatan 0.005% Eye Drops - OU 1 drop HS JONAS Administration Potassium Chloride 40 meq 01/12/18 10:00 01/14/18 09:14 K-Dur - PO 40 meq DAILY [facility]ON[facility] Administration Prednisone 10 mg 01/12/18 10:00 01/14/18 09:15 Deltasone - PO 10 mg DAILY [facility]ONAS Administration Timolol Maleate 1 drop 01/13/18 10:00 01/14/18 09:14 Timoptic 0.5% OU 1 drop BID JONAS Administration H/o Recent DVT ( d/c on Lovenox ) with an underlying hypercoag disorder ( Anticardiolipin Ab +, APLS) hematoma left lower extremity in the past admission, was better but now with acute worsening. close monitoring for compartment syndrome continues. CK slight improvement. ? numbness only in the small toe ?new seen by Ortho s/p one unit PRBC c/w systemic AC, Lovenox. On plaquenil and prednisone for Lupus. supportive measures for the LLE as mentioned by Surgeons. close monitoring.
--- NOTE | 2018-01-14 14:41 | PN ---
Physical Exam: Medicine coverage for Dr. Goddard SUBJECTIVE: Patient seen and examined. She states her pain is less. PT states numbness to left 4 and 5th toe, unclear if new or not. Daughter at bedside OBJECTIVE: Vital Signs Period Temp Pulse Resp BP Sys/[place]ak Pulse Ox Last 24 Hr 98.1 F-98.9 F 61-64 18-18 120-153/45-68 97-99 PE Neuro: alert, awake, cn 2-12intact Pulm: CTAB CV: S1 s2 rrr Abd: s nt nd +bs Ext: LLE calf swelling and tenderness, applied flexion ROM improved, less tender ecchymosis improved , + DP pulses, L foot digit 4, 5 new numbness Laboratory Results - last 24 hr 01/14/18 01/14/18 01/14/18 07:00 07:00 11:24 WBC 6.7 RBC 2.71 L Hgb 8.2 L D Hct 24.0 L MCV 88.3 MCH 30.1 MCHC 34.1 RDW 18.2 H Plt Count 244 MPV 8.0 Neutrophils % 65.7 Lymphocytes % 23.4 Monocytes % 9.9 Eosinophils % 0.6 Basophils % 0.4 Sodium 140 Potassium 4.2 Chloride 106 Carbon Dioxide 25 Anion Gap 9 BUN 10 Creatinine 0.8 Creat Clearance w eGFR > 60 POC Glucometer 159 Random Glucose 67 L Calcium 8.2 L Total Bilirubin 0.7 AST 76 H ALT 39 Alkaline Phosphatase 73 Creatine Kinase 1312 H Creatine Kinase Index 0.1 CK-MB (CK-2) 2.114 Total Protein 5.2 L Albumin 2.1 L Active Medications Generic Name Dose Route Start Last Admin Trade Name Barbara PRN Reason Stop Dose Admin Acetaminophen 325 mg 01/11/18 14:11 01/14/18 09:14 Tylenol - PO 325 mg Q6H PRN Administration PAIN LEVEL 4 - 6 Carvedilol 25 mg 01/11/18 22:00 01/14/18 09:15 Coreg - PO 25 mg BID JONAS Administration Clopidogrel Bisulfate 75 mg 01/12/18 10:00 01/14/18 09:14 Plavix - PO 75 mg DAILY [facility]ON[facility] Administration Colchicine 0.6 mg 01/11/18 22:00 01/14/18 09:13 Colcrys - PO 0.6 mg BID JONAS Administration Diltiazem HCl 240 mg 01/12/18 10:00 01/14/18 09:14 Cardizem Cd - PO 240 mg DAILY [facility]ON[facility] Administration Dorzolamide HCl 1 drop 01/13/18 10:00 01/14/18 09:13 Trusopt 2% OU 1 drop BID JONAS Administration Enoxaparin Sodium 70 mg 01/13/18 10:30 01/14/18 09:14 Lovenox - SQ 70 mg BID JONAS Administration Furosemide 40 mg 01/12/18 10:00 01/14/18 09:16 Lasix - PO 40 mg DAILY [facility] Administration Hydroxychloroquine Sulfate 200 mg 01/12/18 10:00 01/14/18 09:13 Plaquenil - PO 200 mg DAILY [facility] Administration Sodium Chloride 1,000 mls @ 125 mls/hr 01/14/18 11:45 01/14/18 11:51 Normal Saline - IV 01/14/18 19:44 125 mls/hr ASDIR JONAS Administration Insulin Aspart 1 vial 01/11/18 16:30 01/14/18 11:25 Novolog Vial Sliding Scale - SQ 2 units ACHS JONAS Administration Protocol Insulin Detemir 20 units 01/12/18 07:00 01/14/18 06:55 Levemir Vial SQ 20 units AM [facility] Administration Latanoprost 1 drop 01/13/18 22:00 01/13/18 22:10 Xalatan 0.005% Eye Drops - OU 1 drop HS [facility]ON[facility] Administration Potassium Chloride 40 meq 01/12/18 10:00 01/14/18 09:14 K-Dur - PO 40 meq DAILY [facility] Administration Prednisone 10 mg 01/12/18 10:00 01/14/18 09:15 Deltasone - PO 10 mg DAILY [facility] Administration Timolol Maleate 1 drop 01/13/18 10:00 01/14/18 09:14 Timoptic 0.5% OU 1 drop BID [facility]ON[facility] Administration Assessment: 72 year old female admitted with increased LLE pain and swelling Plan: 1. 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 Acute blood loss anemia - Transfused 1uprbc 01/14 appropriate rise 3. LLE hematoma vs Rhabdomylosis - CPK down, likely due to hematoma - Give additional 1L NS @125cc/hr, then resume NS 50cc/hr - Trend CPK 4. CAD - Coreg 25mg BID - Cardizem 240mg daily 5. HTN - Lasix 40mg daily 6. Lupus - Colchicine 0.6mg BID - Decreased Prednisone 10mg daily - Plaquenil 200mg daily 7. DM II - ISS, BGM ACHS - Levemir 20units AM Problem List - Problems (1) HX: anticoagulation Code(s): Z92.29 - PERSONAL HISTORY OF OTHER DRUG THERAPY (2) Hematoma of leg Code(s): S80.10XA - CONTUSION OF UNSPECIFIED LOWER LEG, INITIAL ENCOUNTER Qualifiers: Encounter type: initial encounter Laterality: left Qualified Code(s): S80.12XA - Contusion of left lower leg, initial encounter (3) Anticardiolipin antibody positive Code(s): R76.8 - OTHER SPECIFIED ABNORMAL IMMUNOLOGICAL FINDINGS IN SERUM (4) Diabetes Code(s): E11.9 - TYPE 2 DIABETES MELLITUS WITHOUT COMPLICATIONS Qualifiers: Diabetes mellitus type: type 2 (5) HLD (hyperlipidemia) Code(s): E78.5 - HYPERLIPIDEMIA, UNSPECIFIED (6) Hypertension Code(s): I10 - ESSENTIAL (PRIMARY) HYPERTENSION Qualifiers: Hypertension type: essential hypertension Qualified Code(s): I10 - Essential (primary) hypertension (7) Lupus (systemic lupus erythematosus) Code(s): M32.9 - SYSTEMIC LUPUS ERYTHEMATOSUS, UNSPECIFIED (8) Weakness Code(s): R53.1 - WEAKNESS Visit type - Emergency Visit Emergency Visit: Yes ED Registration Date: 01/11/18 Care time: The patient presented to the Emergency Department on the above date and was hospitalized for further evaluation of their emergent condition. - New Patient This patient is new to me today: No - Critical Care Critical Care patient: No
[2018-01-14] MEDS ORDERED: INSULIN (NOVOLOG) ASPART 100 UNITS/ML 10ML VIAL ONE (17:07)
[2018-01-14] MEDS: LATANOPROST 0.005% OPHTH SOLN 2.5ML BOTTLE OU SCH (21:13)
[2018-01-15] MEDS: INSULIN SLIDING SCALE (NOVOLOG) 1 VIAL SQ SCH ×4 (06:15→22:30)
[2018-01-15] MEDS: INSULIN DETEMIR 100 UNITS/ML MDV SQ SCH (06:25)
[2018-01-15 08:02] LABS: HEMATOCRIT 22.6 % (32.4-45.2); HEMOGLOBIN 7.6 GM/dL (10.7-15.3); MCH 30.2 pg (25.7-33.7); MCHC 33.7 g/dl (32.0-36.0); MEAN CELL VOLUME 89.5 fl (80-96); PLATELET COUNT 234 K/MM3 (134-434); RBC 2.53 M/mm3 (3.60-5.2); RDW 17.8 % (11.6-15.6); WHITE BLOOD COUNT 5.2 K/mm3 (4.0-10.0)
--- NOTE | 2018-01-15 10:09 | PN ---
Progress Note, Physician - Current Medication List Current Medications: Active Medications Acetaminophen (Tylenol -) 325 mg PO Q6H PRN PRN Reason: PAIN LEVEL 4 - 6 Last Admin: 01/14/18 09:14 Dose: 325 mg Carvedilol (Coreg -) 25 mg PO BID [facility] Last Admin: 01/14/18 21:10 Dose: 25 mg Clopidogrel Bisulfate (Plavix -) 75 mg PO DAILY [facility] Last Admin: 01/14/18 09:14 Dose: 75 mg Colchicine (Colcrys -) 0.6 mg PO BID [facility] Last Admin: 01/14/18 21:10 Dose: 0.6 mg Diltiazem HCl (Cardizem Cd -) 240 mg PO DAILY [facility] Last Admin: 01/14/18 09:14 Dose: 240 mg Dorzolamide HCl (Trusopt 2%) 1 drop OU BID [facility] Last Admin: 01/14/18 21:13 Dose: 1 drop Enoxaparin Sodium (Lovenox -) 70 mg SQ BID [facility] Last Admin: 01/14/18 21:10 Dose: 70 mg Furosemide (Lasix -) 40 mg PO DAILY [facility] Last Admin: 01/14/18 09:16 Dose: 40 mg Hydroxychloroquine Sulfate (Plaquenil -) 200 mg PO DAILY [facility] Last Admin: 01/14/18 09:13 Dose: 200 mg Insulin Aspart (Novolog Vial Sliding Scale -) 1 vial SQ ACHS [facility] PRN Reason: Protocol Last Admin: 01/15/18 06:15 Dose: Not Given Insulin Detemir (Levemir Vial) 20 units SQ AM [facility] Last Admin: 01/15/18 06:25 Dose: 20 units Latanoprost (Xalatan 0.005% Eye Drops -) 1 drop OU HS [facility] Last Admin: 01/14/18 21:13 Dose: 1 drop Potassium Chloride (K-Dur -) 40 meq PO DAILY [facility] Last Admin: 01/14/18 09:14 Dose: 40 meq Prednisone (Deltasone -) 10 mg PO DAILY [facility] Last Admin: 01/14/18 09:15 Dose: 10 mg Timolol Maleate (Timoptic 0.5%) 1 drop OU BID [facility] Last Admin: 01/14/18 21:13 Dose: 1 drop - Objective Vital Signs: Vital Signs Temperature 98.6 F 01/15/18 06:00 Pulse Rate 60 01/15/18 06:00 Respiratory Rate 18 01/15/18 06:00 Blood Pressure 151/60 01/15/18 06:00 O2 Sat by Pulse Oximetry (%) 99 01/14/18 10:00 Eyes: Yes: WNL, Conjunctiva Clear, EOM Intact HENT: Yes: WNL, Atraumatic, Normocephalic Neck: Yes: WNL, Supple, Trachea Midline Cardiovascular: Yes: WNL, Regular Rate and Rhythm Respiratory: Yes: WNL, Regular, CTA Bilaterally Gastrointestinal: Yes: WNL, Normal Bowel Sounds Genitourinary: Yes: WNL Musculoskeletal: Yes: WNL Extremities: Yes: WNL Edema: Yes Integumentary: Yes: WNL Neurological: Yes: WNL, Alert, Oriented ...Motor Strength: WNL Psychiatric: Yes: WNL Labs: CBC, BMP 01/15/18 06:00 01/14/18 07:00 INR, PTT INR 1.21 (0.82-1.09) H 01/12/18 06:55 Assessment/Plan IMP: Anticardiolipin Ab + Suspected connective tissue disorder with markedly + MEGHANN Acute DVT while on Coumadin with fluctuating INRs Bilateral PNA (post-influenza), resolved PAF s/p PPM, prior CVA hematoma left lower extremity, resolved now worsened REC: Recent LLE DVT Recurrent hematoma LLE Hypercoagulable thus high risk to stop AC monitor H/H and transfuse as needed DP/PT pulses intact able to flex/extend foot except limited by pain, sensation intact, CK level noted some evidence of muscle breakdown, did not trend up today Now reporting mild numbness lateral aspect of L foot, unclear if new Monitor closely for development of compartment syndrome, ortho consult appreciated felt no evidence of compartment syndrome Vascular f/up Leg elevation Cont Lovenox for now
[2018-01-15] MEDS ORDERED: PT OWN MED DRAWER 7, Y5N ONE (10:10)
[2018-01-15] MEDS: ENOXAPARIN NA (PORCINE) 80 MG/0.8 ML DISP.SYRIN SQ SCH ×2 (10:12→22:34)
[2018-01-15] MEDS: COLCHICINE 0.6 MG TABLET (FP) PO SCH ×2 (10:13→22:33)
[2018-01-15] MEDS: POTASSIUM CHLORIDE TABS 20 MEQ TABLET.ER (FP) PO SCH (10:13)
[2018-01-15] MEDS: FUROSEMIDE 40 MG TABLET (FP) PO SCH (10:13)
[2018-01-15] MEDS: HYDROXYCHLOROQUINE SO4 200 MG TABLET (FP) PO SCH (10:14)
[2018-01-15] MEDS: CLOPIDOGREL BISULFATE 75 MG TABLET (FP) PO SCH (10:14)
[2018-01-15] MEDS: DORZOLAMIDE 2% HCL OPHTHALMIC SOLUTION 10 ML BOTTLE OU SCH ×2 (10:14→22:35)
[2018-01-15] MEDS: CARVEDILOL 25 MG TABLET (FP) PO SCH ×2 (10:14→22:33)
[2018-01-15] MEDS: predniSONE 10 MG TABLET (UD) PO SCH (10:14)
[2018-01-15] MEDS: TIMOLOL 0.5% OPHTHALMIC SOL 5 ML BOTTLE OU SCH ×2 (10:15→22:35)
[2018-01-15] MEDS ORDERED: INSULIN (NOVOLOG) ASPART 100 UNITS/ML 10ML VIAL ONE (11:18)
[2018-01-15] MEDS: ACETAMINOPHEN 325 MG TABLET (FP) PO PRN (12:09)
--- NOTE | 2018-01-15 12:47 | PN ---
Progress Note (short form) - Note Progress Note: Progress Note (short form) - Note Progress Note: Pt seen and examined. Still has pain in LLE but has not worsened Otherwise denies any complains O/E: General: NAD HEENT: NCAT Cor: RRR Lungs: CTA b/l Abd: Soft LE: left: unable to comment on the size in the LLE. Vital Signs Period Temp Pulse Resp BP Sys/[place] Pulse Ox Last 24 Hr 98.1 F-98.9 F 60-66 18-20 120-153/45-60 99 CBC, BMP 01/15/18 06:00 01/14/18 07:00 Active Medications Generic Name Dose Route Start Last Admin Trade Name Freq PRN Reason Stop Dose Admin Acetaminophen 325 mg 01/11/18 14:11 01/15/18 12:09 Tylenol - PO 325 mg Q6H PRN Administration PAIN LEVEL 4 - 6 Carvedilol 25 mg 01/11/18 22:00 01/15/18 10:14 Coreg - PO 25 mg BID JONAS Administration Clopidogrel Bisulfate 75 mg 01/12/18 10:00 01/15/18 10:14 Plavix - PO 75 mg DAILY JONAS Administration Colchicine 0.6 mg 01/11/18 22:00 01/15/18 10:13 Colcrys - PO 0.6 mg BID JONAS Administration Diltiazem HCl 240 mg 01/12/18 10:00 01/15/18 10:14 Cardizem Cd - PO 240 mg DAILY JONAS Administration Dorzolamide HCl 1 drop 01/13/18 10:00 01/15/18 10:14 Trusopt 2% OU 1 drop BID JONAS Administration Enoxaparin Sodium 70 mg 01/13/18 10:30 01/15/18 10:12 Lovenox - SQ 70 mg BID JONAS Administration Furosemide 40 mg 01/12/18 10:00 01/15/18 10:13 Lasix - PO 40 mg DAILY JONAS Administration Hydroxychloroquine Sulfate 200 mg 01/12/18 10:00 01/15/18 10:14 Plaquenil - PO 200 mg DAILY JONAS Administration Insulin Aspart 1 vial 01/11/18 16:30 01/15/18 11:54 Novolog Vial Sliding Scale - SQ 2 units ACHS JONAS Administration Protocol Insulin Detemir 20 units 01/12/18 07:00 01/15/18 06:25 Levemir Vial SQ 20 units AM JONAS Administration Latanoprost 1 drop 01/13/18 22:00 01/14/18 21:13 Xalatan 0.005% Eye Drops - OU 1 drop HS JONAS Administration Potassium Chloride 40 meq 01/12/18 10:00 01/15/18 10:13 K-Dur - PO 40 meq DAILY JONAS Administration Prednisone 10 mg 01/12/18 10:00 01/15/18 10:14 Deltasone - PO 10 mg DAILY JONAS Administration Timolol Maleate 1 drop 01/13/18 10:00 01/15/18 10:15 Timoptic 0.5% OU 1 drop BID JONAS Administration H/o Recent DVT ( d/c on Lovenox ) with an underlying hypercoag disorder ( Anticardiolipin Ab +, APLS) hematoma left lower extremity in the past admission, was better but now with acute worsening. close monitoring for compartment syndrome continues. CK slight improvement. seen by Ortho s/p one unit PRBC c/w systemic AC, Lovenox. On plaquenil and prednisone for Lupus. supportive measures for the LLE as mentioned by Surgeons. close monitoring.
[2018-01-15] MEDS ORDERED: oxyCODONE HCL 5 MG TABLET PO PRN (13:26)
[2018-01-15 18:54] LABS: URINE APPEARANCE CLEAR; URINE BILIRUBIN NEGATIVE (NEGATIVE); URINE BLOOD NEGATIVE (NEGATIVE); URINE COLOR STRAW; URINE GLUCOSE (UA) 2+ (NEGATIVE); URINE KETONE NEGATIVE (NEGATIVE); URINE NITRITE NEGATIVE (NEGATIVE); URINE PROTEIN NEGATIVE (NEGATIVE); URINE UROBILINOGEN NEGATIVE mg/dL (0.2-1.0)
[2018-01-15 19:00] LABS: URINE LEUK ESTERASE 3+ (NEGATIVE)
[2018-01-15 19:01] LABS: EPI CELLS RARE /HPF (FEW); URINE BACTERIA FEW /hpf (NONE SEEN)
--- NOTE | 2018-01-15 20:16 | PN ---
Progress Note, Physician History of Present Illness: No new complaints - Current Medication List Current Medications: Active Medications Acetaminophen (Tylenol -) 325 mg PO Q6H PRN PRN Reason: PAIN LEVEL 4 - 6 Last Admin: 01/15/18 12:09 Dose: 325 mg Carvedilol (Coreg -) 25 mg PO BID [facility] Last Admin: 01/15/18 10:14 Dose: 25 mg Clopidogrel Bisulfate (Plavix -) 75 mg PO DAILY [facility] Last Admin: 01/15/18 10:14 Dose: 75 mg Colchicine (Colcrys -) 0.6 mg PO BID [facility] Last Admin: 01/15/18 10:13 Dose: 0.6 mg Diltiazem HCl (Cardizem Cd -) 240 mg PO DAILY [facility] Last Admin: 01/15/18 10:14 Dose: 240 mg Dorzolamide HCl (Trusopt 2%) 1 drop OU BID [facility] Last Admin: 01/15/18 10:14 Dose: 1 drop Enoxaparin Sodium (Lovenox -) 70 mg SQ BID [facility] Last Admin: 01/15/18 10:12 Dose: 70 mg Furosemide (Lasix -) 40 mg PO DAILY [facility] Last Admin: 01/15/18 10:13 Dose: 40 mg Hydroxychloroquine Sulfate (Plaquenil -) 200 mg PO DAILY [facility] Last Admin: 01/15/18 10:14 Dose: 200 mg Insulin Aspart (Novolog Vial Sliding Scale -) 1 vial SQ ACHS [facility] PRN Reason: Protocol Last Admin: 01/15/18 16:41 Dose: 8 units Insulin Detemir (Levemir Vial) 20 units SQ AM [facility] Last Admin: 01/15/18 06:25 Dose: 20 units Latanoprost (Xalatan 0.005% Eye Drops -) 1 drop OU HS [facility] Last Admin: 01/14/18 21:13 Dose: 1 drop Oxycodone HCl (Roxicodone -) 5 mg PO Q6H PRN PRN Reason: PAIN LEVEL 4-6 Potassium Chloride (K-Dur -) 40 meq PO DAILY [facility] Last Admin: 01/15/18 10:13 Dose: 40 meq Prednisone (Deltasone -) 10 mg PO DAILY [facility] Last Admin: 01/15/18 10:14 Dose: 10 mg Timolol Maleate (Timoptic 0.5%) 1 drop OU BID [facility] Last Admin: 01/15/18 10:15 Dose: 1 drop - Objective Vital Signs: Vital Signs Temperature 98 F 01/15/18 16:10 Pulse Rate 60 01/15/18 16:10 Respiratory Rate 20 01/15/18 16:10 Blood Pressure 143/64 01/15/18 16:10 O2 Sat by Pulse Oximetry (%) 99 01/15/18 10:00 Neck: Yes: WNL, Supple Cardiovascular: Yes: WNL, Regular Rate and Rhythm Respiratory: Yes: WNL, Regular, CTA Bilaterally Gastrointestinal: Yes: WNL, Normal Bowel Sounds, Soft Extremities: Yes: Other ((+) swelling LLE w/ ecchymosis) Labs: CBC, BMP 01/15/18 06:00 01/14/18 07:00 INR, PTT INR 1.21 (0.82-1.09) H 01/12/18 06:55 Problem List - Problems (1) Anemia Assessment/Plan: Decreased H/H probably dilutional Check H/H in am Code(s): D64.9 - ANEMIA, UNSPECIFIED (2) DVT (deep venous thrombosis) Assessment/Plan: Cont lovenox Code(s): I82.409 - ACUTE EMBOLISM AND THOMBOS UNSP DEEP VN UNSP LOWER EXTREMITY Qualifiers: DVT location: lower extremity Affected thrombotic vein of extremity: popliteal Chronicity: acute Laterality: left Qualified Code(s): I82.432 - Acute embolism and thrombosis of left popliteal vein (3) Hematoma of leg Assessment/Plan: Cont to monitor Pt was ruled out for compartment syndrome by vasc/surgeon Leg elevation Code(s): S80.10XA - CONTUSION OF UNSPECIFIED LOWER LEG, INITIAL ENCOUNTER Qualifiers: Encounter type: initial encounter Laterality: left Qualified Code(s): S80.12XA - Contusion of left lower leg, initial encounter (4) Anticardiolipin antibody positive Assessment/Plan: Cont plavix Code(s): R76.8 - OTHER SPECIFIED ABNORMAL IMMUNOLOGICAL FINDINGS IN SERUM (5) CHF (congestive heart failure) Assessment/Plan: Cont lasix Code(s): I50.9 - HEART FAILURE, UNSPECIFIED (6) Diabetes Assessment/Plan: Cont levemir and sliding scale w/ novolog Code(s): E11.9 - TYPE 2 DIABETES MELLITUS WITHOUT COMPLICATIONS Qualifiers: Diabetes mellitus type: type 2 (7) HLD (hyperlipidemia) Code(s): E78.5 - HYPERLIPIDEMIA, UNSPECIFIED (8) HTN (hypertension) Code(s): I10 - ESSENTIAL (PRIMARY) HYPERTENSION
[2018-01-15] MEDS: LATANOPROST 0.005% OPHTH SOLN 2.5ML BOTTLE OU SCH (22:35)
[2018-01-16] MEDS: INSULIN SLIDING SCALE (NOVOLOG) 1 VIAL SQ SCH ×4 (06:21→21:55)
[2018-01-16] MEDS: INSULIN DETEMIR 100 UNITS/ML MDV SQ SCH (06:22)
[2018-01-16 08:26] LABS: BASO % 0.4 % (0-2.0); HEMATOCRIT 24.4 % (32.4-45.2); HEMOGLOBIN 8.1 GM/dL (10.7-15.3); LYMPH % 23.2 % (8-40); MCHC 33.3 g/dl (32.0-36.0); MEAN CELL VOLUME 90.2 fl (80-96); MEAN PLT VOLUME 8.2 fl (7.5-11.1); MONO % 12.2 % (3.8-10.2); NEUT % 63.2 % (42.8-82.8); PLATELET COUNT 252 K/MM3 (134-434); RBC 2.71 M/mm3 (3.60-5.2); RDW 18.3 % (11.6-15.6); WHITE BLOOD COUNT 5.5 K/mm3 (4.0-10.0)
[2018-01-16 08:29] LABS: ALBUMIN 2.2 g/dl (3.4-5.0); ALK PHOS 74 U/L (45-117); ANION GAP 11 (8-16); BILIRUBIN,TOTAL 0.7 mg/dL (0.2-1.0); BLOOD UREA NITROGEN 12 mg/dL (7-18); CALCIUM 8.4 mg/dL (8.5-10.1); CHLORIDE 108 mmol/L (98-107); CO2 25 mmol/L (21-32); CREATININE 0.9 mg/dL (0.55-1.02); GLUCOSE,RANDOM 99 mg/dL (74-106); SGOT/AST 42 U/L (15-37); SGPT/ALT 37 U/L (12-78); SODIUM 144 mmol/L (136-145); TOT PROT 5.3 g/dl (6.4-8.2)
--- NOTE | 2018-01-16 09:29 | PN ---
Progress Note, Physician - Current Medication List Current Medications: Active Medications Acetaminophen (Tylenol -) 325 mg PO Q6H PRN PRN Reason: PAIN LEVEL 4 - 6 Last Admin: 01/15/18 12:09 Dose: 325 mg Carvedilol (Coreg -) 25 mg PO BID [facility] Last Admin: 01/15/18 22:33 Dose: 25 mg Clopidogrel Bisulfate (Plavix -) 75 mg PO DAILY [facility] Last Admin: 01/15/18 10:14 Dose: 75 mg Colchicine (Colcrys -) 0.6 mg PO BID [facility] Last Admin: 01/15/18 22:33 Dose: 0.6 mg Diltiazem HCl (Cardizem Cd -) 240 mg PO DAILY [facility] Last Admin: 01/15/18 10:14 Dose: 240 mg Dorzolamide HCl (Trusopt 2%) 1 drop OU BID [facility] Last Admin: 01/15/18 22:35 Dose: 1 drop Enoxaparin Sodium (Lovenox -) 70 mg SQ BID [facility] Last Admin: 01/15/18 22:34 Dose: 70 mg Furosemide (Lasix -) 40 mg PO DAILY [facility] Last Admin: 01/15/18 10:13 Dose: 40 mg Hydroxychloroquine Sulfate (Plaquenil -) 200 mg PO DAILY [facility] Last Admin: 01/15/18 10:14 Dose: 200 mg Insulin Aspart (Novolog Vial Sliding Scale -) 1 vial SQ ACHS [facility] PRN Reason: Protocol Last Admin: 01/16/18 06:21 Dose: Not Given Insulin Detemir (Levemir Vial) 20 units SQ AM [facility] Last Admin: 01/16/18 06:22 Dose: 20 units Latanoprost (Xalatan 0.005% Eye Drops -) 1 drop OU HS [facility] Last Admin: 01/15/18 22:35 Dose: 1 drop Oxycodone HCl (Roxicodone -) 5 mg PO Q6H PRN PRN Reason: PAIN LEVEL 4-6 Potassium Chloride (K-Dur -) 40 meq PO DAILY [facility] Last Admin: 01/15/18 10:13 Dose: 40 meq Prednisone (Deltasone -) 10 mg PO DAILY [facility] Last Admin: 01/15/18 10:14 Dose: 10 mg Timolol Maleate (Timoptic 0.5%) 1 drop OU BID [facility] Last Admin: 01/15/18 22:35 Dose: 1 drop - Objective Vital Signs: Vital Signs Temperature 98.8 F 01/16/18 06:00 Pulse Rate 60 01/16/18 06:00 Respiratory Rate 20 01/16/18 06:00 Blood Pressure 172/65 01/16/18 06:00 O2 Sat by Pulse Oximetry (%) 99 01/15/18 22:00 Eyes: Yes: WNL, Conjunctiva Clear, EOM Intact HENT: Yes: WNL, Atraumatic, Normocephalic Neck: Yes: WNL, Supple, Trachea Midline Cardiovascular: Yes: WNL, Regular Rate and Rhythm Respiratory: Yes: WNL, Regular, CTA Bilaterally Gastrointestinal: Yes: WNL, Normal Bowel Sounds Genitourinary: Yes: WNL Musculoskeletal: Yes: WNL Extremities: Yes: WNL Edema: No Integumentary: Yes: WNL Neurological: Yes: WNL, Alert, Oriented ...Motor Strength: WNL Psychiatric: Yes: WNL Labs: CBC, BMP 01/16/18 06:48 01/16/18 06:48 INR, PTT INR 1.21 (0.82-1.09) H 01/12/18 06:55 Assessment/Plan IMP: Anticardiolipin Ab + Suspected connective tissue disorder with markedly + MEGHANN Acute DVT while on Coumadin with fluctuating INRs Bilateral PNA (post-influenza), resolved PAF s/p PPM, prior CVA hematoma left lower extremity, resolved now worsened REC: Recent LLE DVT Recurrent hematoma LLE Hypercoagulable thus high risk to stop AC monitor H/H and transfuse as needed DP/PT pulses intact able to flex/extend foot except limited by pain, sensation intact, CK level noted some evidence of muscle breakdown, did not trend up today Now reporting mild numbness lateral aspect of L foot, unclear if new Monitor closely for development of compartment syndrome, ortho consult appreciated felt no evidence of compartment syndrome Vascular f/up Leg elevation Cont Lovenox for now
[2018-01-16] MEDS ORDERED: PT OWN MED DRAWER 7, Y5N ONE (09:30)
[2018-01-16] MEDS: ENOXAPARIN NA (PORCINE) 80 MG/0.8 ML DISP.SYRIN SQ SCH ×2 (09:33→21:55)
[2018-01-16] MEDS: TIMOLOL 0.5% OPHTHALMIC SOL 5 ML BOTTLE OU SCH ×2 (09:34→21:57)
[2018-01-16] MEDS: POTASSIUM CHLORIDE TABS 20 MEQ TABLET.ER (FP) PO SCH (09:34)
[2018-01-16] MEDS: DORZOLAMIDE 2% HCL OPHTHALMIC SOLUTION 10 ML BOTTLE OU SCH ×2 (09:34→21:57)
[2018-01-16] MEDS: FUROSEMIDE 40 MG TABLET (FP) PO SCH (09:34)
[2018-01-16] MEDS: CARVEDILOL 25 MG TABLET (FP) PO SCH ×2 (09:34→21:56)
[2018-01-16] MEDS: predniSONE 10 MG TABLET (UD) PO SCH (09:34)
[2018-01-16] MEDS: CLOPIDOGREL BISULFATE 75 MG TABLET (FP) PO SCH (09:34)
[2018-01-16] MEDS: COLCHICINE 0.6 MG TABLET (FP) PO SCH ×2 (09:34→21:56)
[2018-01-16] MEDS: HYDROXYCHLOROQUINE SO4 200 MG TABLET (FP) PO SCH (09:34)
[2018-01-16] MEDS ORDERED: INSULIN (NOVOLOG) ASPART 100 UNITS/ML 10ML VIAL ONE (12:10)
[2018-01-16] MEDS: ACETAMINOPHEN 325 MG TABLET (FP) PO PRN (12:16)
--- NOTE | 2018-01-16 13:12 | PN ---
Progress Note (short form) - Note Progress Note: Progress Note (short form) - Note Progress Note: Pt seen and examined. Still has pain in LLE but has not worsened Otherwise denies any complains O/E: General: NAD HEENT: NCAT Cor: RRR Lungs: CTA b/l Abd: Soft LE: left: unable to comment on the size in the LLE. Vital Signs Period Temp Pulse Resp BP Sys/[place] Pulse Ox Last 24 Hr 96.4 F-98.8 F 60-63 18-20 113-172/46-88 99 CBC, BMP 01/16/18 06:48 01/16/18 06:48 Current Medications Generic Name Dose Route Start Last Admin Trade Name Freq PRN Reason Stop Dose Admin Acetaminophen 325 mg 01/11/18 14:11 01/16/18 12:16 Tylenol - PO 325 mg Q6H PRN Administration PAIN LEVEL 4 - 6 Carvedilol 25 mg 01/11/18 22:00 01/16/18 09:34 Coreg - PO 25 mg BID JONAS Administration Clopidogrel Bisulfate 75 mg 01/12/18 10:00 01/16/18 09:34 Plavix - PO 75 mg DAILY JONAS Administration Colchicine 0.6 mg 01/11/18 22:00 01/16/18 09:34 Colcrys - PO 0.6 mg BID JONAS Administration Diltiazem HCl 240 mg 01/12/18 10:00 01/16/18 09:34 Cardizem Cd - PO 240 mg DAILY JONAS Administration Dorzolamide HCl 1 drop 01/13/18 10:00 01/16/18 09:34 Trusopt 2% OU 1 drop BID JONAS Administration Enoxaparin Sodium 70 mg 01/13/18 10:30 01/16/18 09:33 Lovenox - SQ 70 mg BID JONAS Administration Furosemide 40 mg 01/12/18 10:00 01/16/18 09:34 Lasix - PO 40 mg DAILY JONAS Administration Hydroxychloroquine Sulfate 200 mg 01/12/18 10:00 01/16/18 09:34 Plaquenil - PO 200 mg DAILY JONAS Administration Insulin Aspart 1 vial 01/11/18 16:30 01/16/18 12:16 Novolog Vial Sliding Scale - SQ 2 units ACHS JONAS Administration Protocol Insulin Detemir 20 units 01/12/18 07:00 01/16/18 06:22 Levemir Vial SQ 20 units AM JONAS Administration Latanoprost 1 drop 01/13/18 22:00 01/15/18 22:35 Xalatan 0.005% Eye Drops - OU 1 drop HS JONAS Administration Oxycodone HCl 5 mg 01/15/18 13:26 Roxicodone - PO Q6H PRN PAIN LEVEL 4-6 Potassium Chloride 40 meq 01/12/18 10:00 01/16/18 09:34 K-Dur - PO 40 meq DAILY JONAS Administration Prednisone 10 mg 01/12/18 10:00 01/16/18 09:34 Deltasone - PO 10 mg DAILY JONAS Administration Timolol Maleate 1 drop 01/13/18 10:00 01/16/18 09:34 Timoptic 0.5% OU 1 drop BID JONAS Administration H/o Recent DVT ( d/c on Lovenox ) with an underlying hypercoag disorder ( Anticardiolipin Ab +, APLS) hematoma left lower extremity in the past admission, was better but now with acute worsening. close monitoring for compartment syndrome continues. CK slight improvement. seen by Ortho c/w systemic AC, Lovenox. On plaquenil and prednisone for Lupus. supportive measures for the LLE as mentioned by Surgeons. close monitoring.
[2018-01-16] MEDS: LATANOPROST 0.005% OPHTH SOLN 2.5ML BOTTLE OU SCH (21:57)
--- NOTE | 2018-01-16 23:08 | PN ---
Progress Note, Physician - Current Medication List Current Medications: Active Medications Acetaminophen (Tylenol -) 325 mg PO Q6H PRN PRN Reason: PAIN LEVEL 4 - 6 Last Admin: 01/16/18 12:16 Dose: 325 mg Acetaminophen (Tylenol -) 650 mg PO Q6H PRN PRN Reason: PAIN LEVEL 6-10 Carvedilol (Coreg -) 25 mg PO BID [facility] Last Admin: 01/16/18 21:56 Dose: 25 mg Clopidogrel Bisulfate (Plavix -) 75 mg PO DAILY [facility] Last Admin: 01/16/18 09:34 Dose: 75 mg Colchicine (Colcrys -) 0.6 mg PO BID [facility] Last Admin: 01/16/18 21:56 Dose: 0.6 mg Diltiazem HCl (Cardizem Cd -) 240 mg PO DAILY [facility] Last Admin: 01/16/18 09:34 Dose: 240 mg Dorzolamide HCl (Trusopt 2%) 1 drop OU BID [facility] Last Admin: 01/16/18 21:57 Dose: 1 drop Enoxaparin Sodium (Lovenox -) 70 mg SQ BID [facility] Last Admin: 01/16/18 21:55 Dose: 70 mg Furosemide (Lasix -) 40 mg PO DAILY [facility] Last Admin: 01/16/18 09:34 Dose: 40 mg Hydroxychloroquine Sulfate (Plaquenil -) 200 mg PO DAILY [facility] Last Admin: 01/16/18 09:34 Dose: 200 mg Levofloxacin (Levaquin 500 Mg Premixed Ivpb -) 500 mg in 100 mls @ 100 mls/hr IVPB DAILY [facility] Last Admin: 01/16/18 18:29 Dose: 100 mls/hr Insulin Aspart (Novolog Vial Sliding Scale -) 1 vial SQ ACHS [facility] PRN Reason: Protocol Last Admin: 01/16/18 21:55 Dose: 2 units Insulin Detemir (Levemir Vial) 20 units SQ AM [facility] Last Admin: 01/16/18 06:22 Dose: 20 units Latanoprost (Xalatan 0.005% Eye Drops -) 1 drop OU HS [facility] Last Admin: 01/16/18 21:57 Dose: 1 drop Oxycodone HCl (Roxicodone -) 5 mg PO Q6H PRN PRN Reason: PAIN LEVEL 4-6 Potassium Chloride (K-Dur -) 40 meq PO DAILY [facility] Last Admin: 01/16/18 09:34 Dose: 40 meq Prednisone (Deltasone -) 10 mg PO DAILY [facility] Last Admin: 01/16/18 09:34 Dose: 10 mg Timolol Maleate (Timoptic 0.5%) 1 drop OU BID [facility] Last Admin: 01/16/18 21:57 Dose: 1 drop - Objective Vital Signs: Vital Signs Temperature 98.6 F 01/16/18 16:15 Pulse Rate 60 01/16/18 16:15 Respiratory Rate 18 01/16/18 16:15 Blood Pressure 152/61 01/16/18 16:15 O2 Sat by Pulse Oximetry (%) 99 01/16/18 10:00 Labs: CBC, BMP 01/16/18 06:48 01/16/18 06:48 INR, PTT INR 1.21 (0.82-1.09) H 01/12/18 06:55 Problem List - Problems (1) Anemia Code(s): D64.9 - ANEMIA, UNSPECIFIED (2) DVT (deep venous thrombosis) Code(s): I82.409 - ACUTE EMBOLISM AND THOMBOS UNSP DEEP VN UNSP LOWER EXTREMITY Qualifiers: DVT location: lower extremity Affected thrombotic vein of extremity: popliteal Chronicity: acute Laterality: left Qualified Code(s): I82.432 - Acute embolism and thrombosis of left popliteal vein (3) Hematoma of leg Code(s): S80.10XA - CONTUSION OF UNSPECIFIED LOWER LEG, INITIAL ENCOUNTER Qualifiers: Encounter type: initial encounter Laterality: left Qualified Code(s): S80.12XA - Contusion of left lower leg, initial encounter (4) Anticardiolipin antibody positive Code(s): R76.8 - OTHER SPECIFIED ABNORMAL IMMUNOLOGICAL FINDINGS IN SERUM (5) CHF (congestive heart failure) Code(s): I50.9 - HEART FAILURE, UNSPECIFIED (6) Diabetes Code(s): E11.9 - TYPE 2 DIABETES MELLITUS WITHOUT COMPLICATIONS Qualifiers: Diabetes mellitus type: type 2 (7) HLD (hyperlipidemia) Code(s): E78.5 - HYPERLIPIDEMIA, UNSPECIFIED (8) HTN (hypertension) Code(s): I10 - ESSENTIAL (PRIMARY) HYPERTENSION
[2018-01-17] MEDS: INSULIN DETEMIR 100 UNITS/ML MDV SQ SCH (06:16)
[2018-01-17] MEDS: INSULIN SLIDING SCALE (NOVOLOG) 1 VIAL SQ SCH ×4 (06:17→21:44)
[2018-01-17 08:23] LABS: HEMATOCRIT 24.9 % (32.4-45.2); HEMOGLOBIN 8.2 GM/dL (10.7-15.3); MCH 29.9 pg (25.7-33.7); MCHC 32.9 g/dl (32.0-36.0); MEAN CELL VOLUME 91.1 fl (80-96); MEAN PLT VOLUME 8.2 fl (7.5-11.1); PLATELET COUNT 247 K/MM3 (134-434); RBC 2.73 M/mm3 (3.60-5.2); RDW 17.7 % (11.6-15.6); WHITE BLOOD COUNT 5.4 K/mm3 (4.0-10.0)
[2018-01-17] MEDS ORDERED: PT OWN MED DRAWER 7, Y5N ONE ×2 (11:14→11:40)
[2018-01-17] MEDS: CLOPIDOGREL BISULFATE 75 MG TABLET (FP) PO SCH (11:16)
[2018-01-17] MEDS: predniSONE 10 MG TABLET (UD) PO SCH ×2 (11:16→17:47)
[2018-01-17] MEDS: FUROSEMIDE 40 MG TABLET (FP) PO SCH (11:16)
[2018-01-17] MEDS: CARVEDILOL 25 MG TABLET (FP) PO SCH ×2 (11:16→22:00)
[2018-01-17] MEDS: COLCHICINE 0.6 MG TABLET (FP) PO SCH ×2 (11:16→22:00)
[2018-01-17] MEDS: POTASSIUM CHLORIDE TABS 20 MEQ TABLET.ER (FP) PO SCH (11:16)
[2018-01-17] MEDS: DORZOLAMIDE 2% HCL OPHTHALMIC SOLUTION 10 ML BOTTLE OU SCH ×2 (11:17→21:46)
[2018-01-17] MEDS: TIMOLOL 0.5% OPHTHALMIC SOL 5 ML BOTTLE OU SCH ×2 (11:17→21:46)
[2018-01-17] MEDS: ENOXAPARIN NA (PORCINE) 80 MG/0.8 ML DISP.SYRIN SQ SCH ×2 (11:17→22:00)
[2018-01-17] MEDS: HYDROXYCHLOROQUINE SO4 200 MG TABLET (FP) PO SCH (11:27)
[2018-01-17] MEDS ORDERED: INSULIN (NOVOLOG) ASPART 100 UNITS/ML 10ML VIAL ONE (12:38)
--- NOTE | 2018-01-17 13:23 | PN ---
Progress Note, Physician History of Present Illness: seen and examined today in nad. continued pain LLE, better able to move toes of l foot and dorsiflex foot today. - Current Medication List Current Medications: Active Medications Acetaminophen (Tylenol -) 325 mg PO Q6H PRN PRN Reason: PAIN LEVEL 4 - 6 Last Admin: 01/16/18 12:16 Dose: 325 mg Acetaminophen (Tylenol -) 650 mg PO Q6H PRN PRN Reason: PAIN LEVEL 6-10 Carvedilol (Coreg -) 25 mg PO BID [facility] Last Admin: 01/17/18 11:16 Dose: 25 mg Clopidogrel Bisulfate (Plavix -) 75 mg PO DAILY [facility] Last Admin: 01/17/18 11:16 Dose: 75 mg Colchicine (Colcrys -) 0.6 mg PO BID [facility] Last Admin: 01/17/18 11:16 Dose: 0.6 mg Diltiazem HCl (Cardizem Cd -) 240 mg PO DAILY [facility] Last Admin: 01/17/18 11:16 Dose: 240 mg Dorzolamide HCl (Trusopt 2%) 1 drop OU BID [facility] Last Admin: 01/17/18 11:17 Dose: 1 drop Enoxaparin Sodium (Lovenox -) 70 mg SQ BID [facility] Last Admin: 01/17/18 11:17 Dose: 70 mg Furosemide (Lasix -) 40 mg PO DAILY [facility] Last Admin: 01/17/18 11:16 Dose: 40 mg Hydroxychloroquine Sulfate (Plaquenil -) 200 mg PO DAILY [facility] Last Admin: 01/17/18 11:27 Dose: 200 mg Levofloxacin (Levaquin 500 Mg Premixed Ivpb -) 500 mg in 100 mls @ 100 mls/hr IVPB DAILY [facility] Last Admin: 01/17/18 11:15 Dose: 100 mls/hr Insulin Aspart (Novolog Vial Sliding Scale -) 1 vial SQ ACHS [facility] PRN Reason: Protocol Last Admin: 01/17/18 06:17 Dose: Not Given Insulin Detemir (Levemir Vial) 20 units SQ AM [facility] Last Admin: 01/17/18 06:16 Dose: 20 units Latanoprost (Xalatan 0.005% Eye Drops -) 1 drop OU HS [facility] Last Admin: 01/16/18 21:57 Dose: 1 drop Oxycodone HCl (Roxicodone -) 5 mg PO Q6H PRN PRN Reason: PAIN LEVEL 4-6 Potassium Chloride (K-Dur -) 40 meq PO DAILY [facility] Last Admin: 01/17/18 11:16 Dose: 40 meq Prednisone (Deltasone -) 10 mg PO DAILY [facility] Last Admin: 01/17/18 11:16 Dose: 10 mg Timolol Maleate (Timoptic 0.5%) 1 drop OU BID [facility] Last Admin: 01/17/18 11:17 Dose: 1 drop - Objective Vital Signs: Vital Signs Temperature 97.7 F 01/17/18 06:50 Pulse Rate 62 01/17/18 06:50 Respiratory Rate 20 01/17/18 06:50 Blood Pressure 152/58 01/17/18 06:50 O2 Sat by Pulse Oximetry (%) 99 01/16/18 22:00 Constitutional: Yes: No Distress, Calm Eyes: Yes: Conjunctiva Clear, EOM Intact HENT: Yes: Atraumatic, Normocephalic Neck: Yes: Supple, Trachea Midline Cardiovascular: Yes: Regular Rate and Rhythm, S1, S2. No: Bradycardia, Tachycardia, Pulse Irregular, Bruit, JVD, Gallop, Murmur, Rub, S3, S4, Varicosities Respiratory: Yes: Regular, CTA Bilaterally. No: Rales, Rhonchi, Wheezes Gastrointestinal: Yes: Normal Bowel Sounds, Soft. No: Distention, Tenderness Extremities: Yes: Other (brusing) Edema: Yes Edema: LLE: 1+ Peripheral Pulses WNL: Yes Neurological: Yes: Alert, Oriented Psychiatric: Yes: Alert, Oriented Labs: CBC, BMP 01/17/18 07:35 01/16/18 06:48 INR, PTT INR 1.21 (0.82-1.09) H 01/12/18 06:55 - ....Imaging Chest X-ray: Report Reviewed, Image Reviewed EKG: Report Reviewed, Image Reviewed Other: Report Reviewed, Image Reviewed Assessment/Plan IMP: Anticardiolipin Ab + Suspected connective tissue disorder with markedly + MEGHANN Acute DVT while on Coumadin with fluctuating INRs Bilateral PNA (post-influenza), resolved PAF s/p PPM, prior CVA hematoma left lower extremity, resolved now worsened REC: Recent LLE DVT Recurrent hematoma LLE Hypercoagulable thus high risk to stop AC monitor H/H and transfuse as needed, H/H stable today Monitor closely for development of compartment syndrome, ortho consult appreciated felt no evidence of compartment syndrome Vascular f/up Leg elevation Cont Lovenox for now
--- NOTE | 2018-01-17 17:05 | CONSULT ---
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 Patient was discharged to home on 01/10/2018. After the patient walked extensively at home with the walker, she developed pain and swelling in the left leg. She denies shortness of breath or chest pain. On 09/23/17 developed chest paiun, she was transferred to [facility] where she had a cardiac cath - apparently normal. Apparently during that admission she developed fever, pericarditis and pleuritis requiring pericardiocenthesis and pleurocenthesis. She was treated with Prednisone 20 mg/d that was tapered down and DC. After 2 weeks she had relapse of pericardtitis, she was seen by a professor of communication and writing at [facility] (Dr. Gorman [phone]). Laboratory work-up apparently reported with positive MEGHANN and anticardiolipin antibody and negative lupus anticoagulant. She was started on Prednisone 20 mg BID, Colchicine 0.6 mg/d and Hydroxychloroquine. Work-up from 11/30/17 revealed a normal urinalysis and [id number] negative. On her last admission (12/21/17) CAT of the chest reported with patchy infiltrates in lower lobes R>L and RUL. NO PE. Echocardiogram: decreased LV systolic function, global hypokinesia of the LV, no pericardial effusion The patient has a [place] [facility] history of dry eyes and she denies skin rash, oral ulcers, dry mouth or Raynaud's phenomenon. Laboratory work-up on 12/22/17 revealed MEGHANN 1:640, anti-DNAds negative and CH50 normal. On this admission I started tapering down Prednisone. 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 Cardio/Vascular: Yes: AFIB, HTN, Hyperlipdemia, Other (pericarditis Pericardial effusion) Renal/: Yes: Other (Renal artery stenosis) Endocrine: Yes: Diabetes Mellitus - Past Surgical History Past Surgical History: Yes: Permanent Pacemaker - Alcohol/Substance Use Hx Alcohol Use: No - Smoking History Smoking history: Unknown if ever smoked Have you smoked in the past 12 months: No Aproximately how many cigarettes per day: 5 If you are a former smoker, when did you quit?: 1993 - Social History ADL: Family Assistance History of Recent Travel: No Home Medications - Allergies Allergies/Adverse Reactions: Allergies Allergy/AdvReac Type Severity Reaction Status Date / Time aspirin Allergy Severe Verified 01/11/18 04:26 Penicillins Allergy Severe Verified 01/11/18 04:26 diclofenac Allergy Verified 01/11/18 04:26 shellfish derived Allergy Verified 01/11/18 04:26 lactose AdvReac Verified 01/11/18 04:26 iv contrast Allergy Uncoded 01/11/18 04:26 - Home Medications Home Medications: Ambulatory Orders Clopidogrel Bisulfate [Plavix -] 75 mg PO DAILY 10/09/17 Diltiazem HCl [Diltiazem 24Hr Cd] 240 mg PO DAILY 10/09/17 Carvedilol [Coreg -] 25 mg PO BID tablet 12/13/17 Dorzolamide HCl [Trusopt 2% -] 1 drop OU BID drops 12/13/17 Latanoprost 0.005% Eye Drops [Xalatan 0.005% Eye Drops -] 1 drop OU HS drops Timolol 0.5% [Timoptic 0.5%] 1 drop OU BID drops 12/13/17 Acetaminophen [Tylenol .Regular Strength -] 325 mg PO Q6H PRN tablet 01/05/18 Colchicine [Colcrys -] 0.6 mg PO BID tablet 01/05/18 Enoxaparin [Lovenox -] 70 mg SQ BID disp.syrin 01/05/18 Furosemide [Lasix -] 40 mg PO DAILY tablet 01/05/18 Hydroxychloroquine So4 [Plaquenil -] 200 mg PO DAILY tablet 01/05/18 Insulin (Levemir) [Levemir Vial] 20 units SQ AM ml 01/05/18 Potassium Chloride [K-Dur -] 40 meq PO DAILY tablet.er 01/05/18 predniSONE [Deltasone -] 20 mg PO DAILY tablet 01/05/18 Alprazolam [Xanax] 0.5 mg PO HS PRN MDD 2 TABS 01/11/18 Insulin Sliding Scale [Novolog Vial Sliding Scale -] 0 units SQ ACHS PRN Review of Systems - Review of Systems Constitutional: reports: Malaise Eyes: reports: No Symptoms HENT: reports: No Symptoms Neck: reports: No Symptoms Cardiovascular: reports: No Symptoms Respiratory: reports: No Symptoms Gastrointestinal: reports: No Symptoms Genitourinary: reports: No Symptoms Musculoskeletal: reports: Other (Pain and swelling of the left leg (calf)) Integumentary: reports: No Symptoms Neurological: reports: No Symptoms Physical Exam Vital Signs: Vital Signs Temperature 98.0 F 01/17/18 15:16 Pulse Rate 66 01/17/18 15:16 Respiratory Rate 18 01/17/18 15:16 Blood Pressure 139/52 01/17/18 15:16 O2 Sat by Pulse Oximetry (%) 99 01/16/18 22:00 Constitutional: Yes: Mild Distress Eyes: Yes: WNL HENT: Yes: WNL Neck: Yes: WNL Cardiovascular: Yes: WNL Respiratory: Yes: WNL Gastrointestinal: Yes: WNL Musculoskeletal: Yes: Other (No active joints) Extremities: Yes: Other (Tenderness and swelling of the left calf.) Labs: CBC, BMP 01/17/18 07:35 01/16/18 06:48 Laboratory Tests 01/15/18 17:54 Urine Color Straw Urine Appearance Clear Urine pH 7.0 Ur Specific [place] 1.010 Urine Protein Negative Urine Glucose (UA) 2+ H Urine Ketones Negative Urine Blood Negative Urine Nitrite Negative Urine Bilirubin Negative Ur Leukocyte Esterase 3+ H Urine WBC (Auto) 18 Urine RBC (Auto) None Ur Epithelial Cells Rare Urine Bacteria Few Problem List - Problems (1) Lupus (systemic lupus erythematosus) Assessment/Plan: The patient has a positive MEGHANN and anti-cardiolipin antibodies with negative anti-DNAds, beta2 glycoprotein-I and lupus anticoagulant. CH50 was normal. Based on this changes I cannot conclude that she has lupus or anti-phospholipid syndrome. She had pericardial and pleural effusions, however she has CHF. There is no kidney involvement or evidence of other organ involvement. Plan: I started tapering down steroids, I will decrease to 5 mg/d and should be DC> She should have further work-up as outpatient. Code(s): M32.9 - SYSTEMIC LUPUS ERYTHEMATOSUS, UNSPECIFIED
--- NOTE | 2018-01-17 21:19 | PN ---
Progress Note, Physician - Current Medication List Current Medications: Active Medications Acetaminophen (Tylenol -) 325 mg PO Q6H PRN PRN Reason: PAIN LEVEL 4 - 6 Last Admin: 01/16/18 12:16 Dose: 325 mg Acetaminophen (Tylenol -) 650 mg PO Q6H PRN PRN Reason: PAIN LEVEL 6-10 Carvedilol (Coreg -) 25 mg PO BID [facility] Last Admin: 01/17/18 11:16 Dose: 25 mg Clopidogrel Bisulfate (Plavix -) 75 mg PO DAILY [facility] Last Admin: 01/17/18 11:16 Dose: 75 mg Colchicine (Colcrys -) 0.6 mg PO BID [facility] Last Admin: 01/17/18 11:16 Dose: 0.6 mg Diltiazem HCl (Cardizem Cd -) 240 mg PO DAILY [facility] Last Admin: 01/17/18 11:16 Dose: 240 mg Dorzolamide HCl (Trusopt 2%) 1 drop OU BID [facility] Last Admin: 01/17/18 11:17 Dose: 1 drop Enoxaparin Sodium (Lovenox -) 70 mg SQ BID [facility] Last Admin: 01/17/18 11:17 Dose: 70 mg Furosemide (Lasix -) 40 mg PO DAILY [facility] Last Admin: 01/17/18 11:16 Dose: 40 mg Hydroxychloroquine Sulfate (Plaquenil -) 200 mg PO DAILY [facility] Last Admin: 01/17/18 11:27 Dose: 200 mg Levofloxacin (Levaquin 500 Mg Premixed Ivpb -) 500 mg in 100 mls @ 100 mls/hr IVPB DAILY [facility] Last Admin: 01/17/18 11:15 Dose: 100 mls/hr Insulin Aspart (Novolog Vial Sliding Scale -) 1 vial SQ ACHS [facility] PRN Reason: Protocol Last Admin: 01/17/18 17:47 Dose: 4 units Insulin Detemir (Levemir Vial) 20 units SQ AM [facility] Last Admin: 01/17/18 06:16 Dose: 20 units Latanoprost (Xalatan 0.005% Eye Drops -) 1 drop OU HS [facility] Last Admin: 01/16/18 21:57 Dose: 1 drop Oxycodone HCl (Roxicodone -) 5 mg PO Q6H PRN PRN Reason: PAIN LEVEL 4-6 Potassium Chloride (K-Dur -) 40 meq PO DAILY [facility] Last Admin: 01/17/18 11:16 Dose: 40 meq Prednisone (Deltasone -) 5 mg PO DAILY [facility] Last Admin: 01/17/18 17:47 Dose: Not Given Timolol Maleate (Timoptic 0.5%) 1 drop OU BID [facility] Last Admin: 01/17/18 11:17 Dose: 1 drop - Objective Vital Signs: Vital Signs Temperature 98.2 F 01/17/18 17:08 Pulse Rate 60 01/17/18 17:08 Respiratory Rate 20 01/17/18 17:08 Blood Pressure 133/63 01/17/18 17:08 O2 Sat by Pulse Oximetry (%) 98 01/17/18 10:00 Labs: CBC, BMP 01/17/18 07:35 01/16/18 06:48 INR, PTT INR 1.21 (0.82-1.09) H 01/12/18 06:55 Problem List - Problems (1) Anemia Code(s): D64.9 - ANEMIA, UNSPECIFIED (2) DVT (deep venous thrombosis) Code(s): I82.409 - ACUTE EMBOLISM AND THOMBOS UNSP DEEP VN UNSP LOWER EXTREMITY Qualifiers: DVT location: lower extremity Affected thrombotic vein of extremity: popliteal Chronicity: acute Laterality: left Qualified Code(s): I82.432 - Acute embolism and thrombosis of left popliteal vein (3) Hematoma of leg Code(s): S80.10XA - CONTUSION OF UNSPECIFIED LOWER LEG, INITIAL ENCOUNTER Qualifiers: Encounter type: initial encounter Laterality: left Qualified Code(s): S80.12XA - Contusion of left lower leg, initial encounter (4) Anticardiolipin antibody positive Code(s): R76.8 - OTHER SPECIFIED ABNORMAL IMMUNOLOGICAL FINDINGS IN SERUM (5) CHF (congestive heart failure) Code(s): I50.9 - HEART FAILURE, UNSPECIFIED (6) Diabetes Code(s): E11.9 - TYPE 2 DIABETES MELLITUS WITHOUT COMPLICATIONS Qualifiers: Diabetes mellitus type: type 2 (7) HLD (hyperlipidemia) Code(s): E78.5 - HYPERLIPIDEMIA, UNSPECIFIED (8) HTN (hypertension) Code(s): I10 - ESSENTIAL (PRIMARY) HYPERTENSION
[2018-01-17] MEDS: ACETAMINOPHEN 325 MG TABLET (FP) PO PRN (21:45)
[2018-01-17] MEDS: LATANOPROST 0.005% OPHTH SOLN 2.5ML BOTTLE OU SCH (21:46)
--- NOTE | 2018-01-17 22:52 | PN ---
Progress Note (short form) - Note Progress Note: Patient seen and examined LLE swelling/pain improved Last Vital Signs Temp Pulse Resp BP Pulse Ox 98.2 F 60 20 133/63 98 01/17/18 17:08 01/17/18 17:08 01/17/18 22:00 01/17/18 17:08 01/17/18 22:00 Cor: RSR, No murmurs, No gallops Lungs: Clear to P&A Abd: Soft, Normal bowel sounds, No organomegaly Ext:No significant edema// LLE ecchymosis, good pulses Abnormal Lab Results 01/17/18 07:35 RBC 2.73 L Hgb 8.2 L Hct 24.9 L RDW 17.7 H Active Medications Generic Name Dose Route Start Last Admin Trade Name Freq PRN Reason Stop Dose Admin Acetaminophen 325 mg 01/11/18 14:11 01/16/18 12:16 Tylenol - PO 325 mg Q6H PRN Administration PAIN LEVEL 4 - 6 Acetaminophen 650 mg 01/16/18 13:46 01/17/18 21:45 Tylenol - PO 650 mg Q6H PRN Administration PAIN LEVEL 6-10 Carvedilol 25 mg 01/11/18 22:00 01/17/18 11:16 Coreg - PO 25 mg BID JONAS Administration Clopidogrel Bisulfate 75 mg 01/12/18 10:00 01/17/18 11:16 Plavix - PO 75 mg DAILY JONAS Administration Colchicine 0.6 mg 01/11/18 22:00 01/17/18 11:16 Colcrys - PO 0.6 mg BID JONAS Administration Diltiazem HCl 240 mg 01/12/18 10:00 01/17/18 11:16 Cardizem Cd - PO 240 mg DAILY JONAS Administration Dorzolamide HCl 1 drop 01/13/18 10:00 01/17/18 21:46 Trusopt 2% OU 1 drop BID JONAS Administration Enoxaparin Sodium 70 mg 01/13/18 10:30 01/17/18 11:17 Lovenox - SQ 70 mg BID JONAS Administration Furosemide 40 mg 01/12/18 10:00 01/17/18 11:16 Lasix - PO 40 mg DAILY JONAS Administration Hydroxychloroquine Sulfate 200 mg 01/12/18 10:00 01/17/18 11:27 Plaquenil - PO 200 mg DAILY JONAS Administration Levofloxacin 500 mg in 100 mls @ 100 mls/hr 01/16/18 18:30 01/17/18 11:15 Levaquin 500 Mg Premixed Ivpb - IVPB 100 mls/hr DAILY JONAS Administration Insulin Aspart 1 vial 01/11/18 16:30 01/17/18 21:44 Novolog Vial Sliding Scale - SQ 4 units ACHS JONAS Administration Protocol Insulin Detemir 20 units 01/12/18 07:00 01/17/18 06:16 Levemir Vial SQ 20 units AM JONAS Administration Latanoprost 1 drop 01/13/18 22:00 01/17/18 21:46 Xalatan 0.005% Eye Drops - OU 1 drop HS JONAS Administration Oxycodone HCl 5 mg 01/15/18 13:26 Roxicodone - PO Q6H PRN PAIN LEVEL 4-6 Potassium Chloride 40 meq 01/12/18 10:00 01/17/18 11:16 K-Dur - PO 40 meq DAILY JONAS Administration Prednisone 5 mg 01/17/18 17:30 01/17/18 17:47 Deltasone - PO Not Given DAILY JONAS Timolol Maleate 1 drop 01/13/18 10:00 01/17/18 21:46 Timoptic 0.5% OU 1 drop BID JONAS Administration A/P 72 y/o patient with H/o Recent DVT ( d/c on Lovenox ) with an underlying hypercoag disorder (Anticardiolipin Ab +, APLS) hematoma left lower extremity in the past admission, was better but now with worsening. close monitoring for compartment syndrome continues. . seen by Ortho c/w systemic AC, Oma. On plaquenil rheum note noted--on prdenisone taper
[2018-01-18] MEDS: INSULIN DETEMIR 100 UNITS/ML MDV SQ SCH (06:56)
[2018-01-18 08:27] LABS: HEMATOCRIT 26.7 % (32.4-45.2); HEMOGLOBIN 8.7 GM/dL (10.7-15.3); MCH 29.7 pg (25.7-33.7); MCHC 32.7 g/dl (32.0-36.0); MEAN CELL VOLUME 90.8 fl (80-96); MEAN PLT VOLUME 8.3 fl (7.5-11.1); PLATELET COUNT 286 K/MM3 (134-434); RBC 2.94 M/mm3 (3.60-5.2); RDW 18.2 % (11.6-15.6); WHITE BLOOD COUNT 5.5 K/mm3 (4.0-10.0)
--- NOTE | 2018-01-18 09:17 | PN ---
Progress Note, Physician Chief Complaint: no acute distress Feels well. - Current Medication List Current Medications: Active Medications Acetaminophen (Tylenol -) 325 mg PO Q6H PRN PRN Reason: PAIN LEVEL 4 - 6 Last Admin: 01/16/18 12:16 Dose: 325 mg Acetaminophen (Tylenol -) 650 mg PO Q6H PRN PRN Reason: PAIN LEVEL 6-10 Last Admin: 01/17/18 21:45 Dose: 650 mg Carvedilol (Coreg -) 25 mg PO BID [facility] Last Admin: 01/17/18 22:00 Dose: 25 mg Clopidogrel Bisulfate (Plavix -) 75 mg PO DAILY [facility] Last Admin: 01/17/18 11:16 Dose: 75 mg Colchicine (Colcrys -) 0.6 mg PO BID [facility] Last Admin: 01/17/18 22:00 Dose: 0.6 mg Diltiazem HCl (Cardizem Cd -) 240 mg PO DAILY [facility] Last Admin: 01/17/18 11:16 Dose: 240 mg Dorzolamide HCl (Trusopt 2%) 1 drop OU BID [facility] Last Admin: 01/17/18 21:46 Dose: 1 drop Enoxaparin Sodium (Lovenox -) 70 mg SQ BID [facility] Last Admin: 01/17/18 22:00 Dose: 70 mg Furosemide (Lasix -) 40 mg PO DAILY [facility] Last Admin: 01/17/18 11:16 Dose: 40 mg Hydroxychloroquine Sulfate (Plaquenil -) 200 mg PO DAILY [facility] Last Admin: 01/17/18 11:27 Dose: 200 mg Levofloxacin (Levaquin 500 Mg Premixed Ivpb -) 500 mg in 100 mls @ 100 mls/hr IVPB DAILY [facility] Last Admin: 01/17/18 11:15 Dose: 100 mls/hr Insulin Aspart (Novolog Vial Sliding Scale -) 1 vial SQ ACHS [facility] PRN Reason: Protocol Last Admin: 01/17/18 21:44 Dose: 4 units Insulin Detemir (Levemir Vial) 20 units SQ AM [facility] Last Admin: 01/18/18 06:56 Dose: 20 units Latanoprost (Xalatan 0.005% Eye Drops -) 1 drop OU HS [facility] Last Admin: 01/17/18 21:46 Dose: 1 drop Oxycodone HCl (Roxicodone -) 5 mg PO Q6H PRN PRN Reason: PAIN LEVEL 4-6 Potassium Chloride (K-Dur -) 40 meq PO DAILY [facility] Last Admin: 01/17/18 11:16 Dose: 40 meq Prednisone (Deltasone -) 5 mg PO DAILY [facility] Last Admin: 01/17/18 17:47 Dose: Not Given Timolol Maleate (Timoptic 0.5%) 1 drop OU BID [facility] Last Admin: 01/17/18 21:46 Dose: 1 drop - Objective Vital Signs: Vital Signs Temperature 98.1 F 01/18/18 06:51 Pulse Rate 62 01/18/18 06:51 Respiratory Rate 20 01/18/18 06:51 Blood Pressure 144/58 01/18/18 06:51 O2 Sat by Pulse Oximetry (%) 98 01/17/18 22:00 Constitutional: Yes: No Distress Eyes: Yes: Conjunctiva Clear Cardiovascular: Yes: Regular Rate and Rhythm Respiratory: Yes: CTA Bilaterally Gastrointestinal: Yes: Soft (non-tender) Edema: Yes Edema: LLE: 1+, RLE: 2+ Neurological: Yes: Alert ...Motor Strength: WNL Labs: CBC, BMP 01/18/18 06:30 01/16/18 06:48 INR, PTT INR 1.21 (0.82-1.09) H 01/12/18 06:55 Laboratory Tests 01/16/18 01/18/18 15:19 06:30 WBC 5.5 Hct 26.7 L Plt Count 286 Stool Occult Blood Negative Assessment/Plan IMP: Anticardiolipin Ab + Suspected connective tissue disorder with markedly + MEGHANN Acute DVT while on Coumadin with fluctuating INRs Bilateral PNA (post-influenza), resolved PAF s/p PPM, prior CVA hematoma left lower extremity, resolved now worsened REC: Recent LLE DVT Recurrent hematoma LLE Hypercoagulable thus high risk to stop AC monitor H/H and transfuse as needed, H/H stable today Monitor closely for development of compartment syndrome, ortho consult appreciated felt no evidence of compartment syndrome Vascular f/up Leg elevation Cont Lovenox for now Physical therapy, mobilization.
[2018-01-18] MEDS ORDERED: PT OWN MED DRAWER 7, Y5N ONE ×3 (10:11→11:23)
[2018-01-18] MEDS: predniSONE 10 MG TABLET (UD) PO SCH (10:33)
[2018-01-18] MEDS: FUROSEMIDE 40 MG TABLET (FP) PO SCH (10:33)
[2018-01-18] MEDS: CARVEDILOL 25 MG TABLET (FP) PO SCH ×2 (10:34→22:06)
[2018-01-18] MEDS: CLOPIDOGREL BISULFATE 75 MG TABLET (FP) PO SCH (10:34)
[2018-01-18] MEDS: COLCHICINE 0.6 MG TABLET (FP) PO SCH ×2 (10:34→22:06)
[2018-01-18] MEDS: POTASSIUM CHLORIDE TABS 20 MEQ TABLET.ER (FP) PO SCH (10:35)
[2018-01-18] MEDS: HYDROXYCHLOROQUINE SO4 200 MG TABLET (FP) PO SCH (10:36)
[2018-01-18] MEDS: ENOXAPARIN NA (PORCINE) 80 MG/0.8 ML DISP.SYRIN SQ SCH ×2 (10:36→22:06)
[2018-01-18] MEDS: DORZOLAMIDE 2% HCL OPHTHALMIC SOLUTION 10 ML BOTTLE OU SCH ×2 (10:39→22:07)
[2018-01-18] MEDS: TIMOLOL 0.5% OPHTHALMIC SOL 5 ML BOTTLE OU SCH ×2 (10:39→22:07)
[2018-01-18] MEDS: INSULIN SLIDING SCALE (NOVOLOG) 1 VIAL SQ SCH ×4 (11:00→21:28)
--- NOTE | 2018-01-18 11:53 | PN ---
Progress Note (short form) - Note Progress Note: Pt seen and examined. Leg is improved O/E: General: NAD HEENT: NCAT Cor: RRR Lungs: CTA b/l Abd: Soft LE: left: good improvement in the LLE.+DP. Last Vital Signs Temp Pulse Resp BP Pulse Ox 98.1 F 62 20 144/58 98 01/18/18 06:51 01/18/18 06:51 01/18/18 06:51 01/18/18 06:51 01/17/18 22:00 CBC, BMP 01/18/18 06:30 01/16/18 06:48 Current Medications Generic Name Dose Route Start Last Admin Trade Name Freq PRN Reason Stop Dose Admin Acetaminophen 325 mg 01/11/18 14:11 01/16/18 12:16 Tylenol - PO 325 mg Q6H PRN Administration PAIN LEVEL 4 - 6 Acetaminophen 650 mg 01/16/18 13:46 01/17/18 21:45 Tylenol - PO 650 mg Q6H PRN Administration PAIN LEVEL 6-10 Carvedilol 25 mg 01/11/18 22:00 01/18/18 10:34 Coreg - PO 25 mg BID JONAS Administration Clopidogrel Bisulfate 75 mg 01/12/18 10:00 01/18/18 10:34 Plavix - PO 75 mg DAILY JONAS Administration Colchicine 0.6 mg 01/11/18 22:00 01/18/18 10:34 Colcrys - PO 0.6 mg BID JONAS Administration Diltiazem HCl 240 mg 01/12/18 10:00 01/18/18 10:33 Cardizem Cd - PO 240 mg DAILY JONAS Administration Dorzolamide HCl 1 drop 01/13/18 10:00 01/18/18 10:39 Trusopt 2% OU 1 drop BID JONAS Administration Enoxaparin Sodium 70 mg 01/13/18 10:30 01/18/18 10:36 Lovenox - SQ 70 mg BID JONAS Administration Furosemide 40 mg 01/12/18 10:00 01/18/18 10:33 Lasix - PO 40 mg DAILY JONAS Administration Hydroxychloroquine Sulfate 200 mg 01/12/18 10:00 01/18/18 10:36 Plaquenil - PO 200 mg DAILY JONAS Administration Levofloxacin 500 mg in 100 mls @ 100 mls/hr 01/16/18 18:30 01/18/18 10:39 Levaquin 500 Mg Premixed Ivpb - IVPB 100 mls/hr DAILY JONAS Administration Insulin Aspart 1 vial 01/11/18 16:30 01/17/18 21:44 Novolog Vial Sliding Scale - SQ 4 units ACHS JONAS Administration Protocol Insulin Detemir 20 units 01/12/18 07:00 01/18/18 06:56 Levemir Vial SQ 20 units AM JONAS Administration Latanoprost 1 drop 01/13/18 22:00 01/17/18 21:46 Xalatan 0.005% Eye Drops - OU 1 drop HS JONAS Administration Oxycodone HCl 5 mg 01/15/18 13:26 Roxicodone - PO Q6H PRN PAIN LEVEL 4-6 Potassium Chloride 40 meq 01/12/18 10:00 01/18/18 10:35 K-Dur - PO 40 meq DAILY JONAS Administration Prednisone 5 mg 01/17/18 17:30 01/18/18 10:33 Deltasone - PO 5 mg DAILY JONAS Administration Timolol Maleate 1 drop 01/13/18 10:00 01/18/18 10:39 Timoptic 0.5% OU 1 drop BID JONAS Administration H/o Recent DVT ( d/c on Lovenox ) with an underlying hypercoag disorder ( Anticardiolipin Ab +, APLS) hematoma left lower extremity in the past admission, was better but now with acute worsening. c/w systemic AC, Lovenox. Hct stable , leg improving On plaquenil and prednisone for Lupus. Seen by , recs noted. supportive measures for the LLE continued, participating in PT well. PT eval. continued daughters to f.u in re: to SNF/Rehab Problem List - Problems (1) Anemia Code(s): D64.9 - ANEMIA, UNSPECIFIED (2) Hematoma of leg Code(s): S80.10XA - CONTUSION OF UNSPECIFIED LOWER LEG, INITIAL ENCOUNTER Qualifiers: Encounter type: initial encounter Laterality: left Qualified Code(s): S80.12XA - Contusion of left lower leg, initial encounter (3) Anticardiolipin antibody positive Code(s): R76.8 - OTHER SPECIFIED ABNORMAL IMMUNOLOGICAL FINDINGS IN SERUM (4) DVT (deep venous thrombosis) Code(s): I82.409 - ACUTE EMBOLISM AND THOMBOS UNSP DEEP VN UNSP LOWER EXTREMITY Qualifiers: DVT location: lower extremity Affected thrombotic vein of extremity: popliteal Chronicity: acute Laterality: left Qualified Code(s): I82.432 - Acute embolism and thrombosis of left popliteal vein (5) HX: anticoagulation Code(s): Z92.29 - PERSONAL HISTORY OF OTHER DRUG THERAPY
[2018-01-18] MEDS ORDERED: INSULIN (NOVOLOG) ASPART 100 UNITS/ML 10ML VIAL ONE ×2 (13:07→18:14)
--- NOTE | 2018-01-18 16:23 | PN ---
Progress Note (short form) - Note Progress Note: ID Consult dictated ESBL UTI Hx YAQUELIN Ertapenem Contact precautions
[2018-01-18] MEDS: ERTAPENEM SODIUM 0.5 GM in SODIUM CHLORIDE 100 ML IVPB SCH (17:42)
--- NOTE | 2018-01-18 21:29 | PN ---
Progress Note, Physician - Current Medication List Current Medications: Active Medications Acetaminophen (Tylenol -) 325 mg PO Q6H PRN PRN Reason: PAIN LEVEL 4 - 6 Last Admin: 01/16/18 12:16 Dose: 325 mg Acetaminophen (Tylenol -) 650 mg PO Q6H PRN PRN Reason: PAIN LEVEL 6-10 Last Admin: 01/17/18 21:45 Dose: 650 mg Carvedilol (Coreg -) 25 mg PO BID [facility] Last Admin: 01/18/18 10:34 Dose: 25 mg Clopidogrel Bisulfate (Plavix -) 75 mg PO DAILY [facility] Last Admin: 01/18/18 10:34 Dose: 75 mg Colchicine (Colcrys -) 0.6 mg PO BID [facility] Last Admin: 01/18/18 10:34 Dose: 0.6 mg Diltiazem HCl (Cardizem Cd -) 240 mg PO DAILY [facility] Last Admin: 01/18/18 10:33 Dose: 240 mg Dorzolamide HCl (Trusopt 2%) 1 drop OU BID [facility] Last Admin: 01/18/18 10:39 Dose: 1 drop Enoxaparin Sodium (Lovenox -) 70 mg SQ BID [facility] Last Admin: 01/18/18 10:36 Dose: 70 mg Furosemide (Lasix -) 40 mg PO DAILY [facility] Last Admin: 01/18/18 10:33 Dose: 40 mg Hydroxychloroquine Sulfate (Plaquenil -) 200 mg PO DAILY [facility] Last Admin: 01/18/18 10:36 Dose: 200 mg Ertapenem 0.5 gm/ Sodium (Chloride) 100 mls @ 200 mls/hr IVPB DAILY [facility] PRN Reason: Protocol Last Admin: 01/18/18 17:42 Dose: 200 mls/hr Insulin Aspart (Novolog Vial Sliding Scale -) 1 vial SQ ACHS [facility] PRN Reason: Protocol Last Admin: 01/18/18 21:28 Dose: Not Given Insulin Detemir (Levemir Vial) 20 units SQ AM [facility] Last Admin: 01/18/18 06:56 Dose: 20 units Latanoprost (Xalatan 0.005% Eye Drops -) 1 drop OU HS [facility] Last Admin: 01/17/18 21:46 Dose: 1 drop Potassium Chloride (K-Dur -) 40 meq PO DAILY [facility] Last Admin: 01/18/18 10:35 Dose: 40 meq Prednisone (Deltasone -) 5 mg PO DAILY [facility] Last Admin: 01/18/18 10:33 Dose: 5 mg Timolol Maleate (Timoptic 0.5%) 1 drop OU BID [facility] Last Admin: 01/18/18 10:39 Dose: 1 drop - Objective Vital Signs: Vital Signs Temperature 97.5 F L 01/18/18 16:30 Pulse Rate 60 01/18/18 16:30 Respiratory Rate 20 01/18/18 16:30 Blood Pressure 134/58 01/18/18 16:30 O2 Sat by Pulse Oximetry (%) 98 01/18/18 10:00 Labs: CBC, BMP 01/18/18 06:30 01/16/18 06:48 INR, PTT INR 1.21 (0.82-1.09) H 01/12/18 06:55 Problem List - Problems (1) Anemia Code(s): D64.9 - ANEMIA, UNSPECIFIED (2) DVT (deep venous thrombosis) Code(s): I82.409 - ACUTE EMBOLISM AND THOMBOS UNSP DEEP VN UNSP LOWER EXTREMITY Qualifiers: DVT location: lower extremity Affected thrombotic vein of extremity: popliteal Chronicity: acute Laterality: left Qualified Code(s): I82.432 - Acute embolism and thrombosis of left popliteal vein (3) Hematoma of leg Code(s): S80.10XA - CONTUSION OF UNSPECIFIED LOWER LEG, INITIAL ENCOUNTER Qualifiers: Encounter type: initial encounter Laterality: left Qualified Code(s): S80.12XA - Contusion of left lower leg, initial encounter (4) Anticardiolipin antibody positive Code(s): R76.8 - OTHER SPECIFIED ABNORMAL IMMUNOLOGICAL FINDINGS IN SERUM (5) CHF (congestive heart failure) Code(s): I50.9 - HEART FAILURE, UNSPECIFIED (6) Diabetes Code(s): E11.9 - TYPE 2 DIABETES MELLITUS WITHOUT COMPLICATIONS Qualifiers: Diabetes mellitus type: type 2 (7) HLD (hyperlipidemia) Code(s): E78.5 - HYPERLIPIDEMIA, UNSPECIFIED (8) HTN (hypertension) Code(s): I10 - ESSENTIAL (PRIMARY) HYPERTENSION
[2018-01-18] MEDS: LATANOPROST 0.005% OPHTH SOLN 2.5ML BOTTLE OU SCH (22:07)
[2018-01-19] MEDS: INSULIN SLIDING SCALE (NOVOLOG) 1 VIAL SQ SCH ×4 (06:01→21:56)
[2018-01-19] MEDS: INSULIN DETEMIR 100 UNITS/ML MDV SQ SCH (06:31)
[2018-01-19 08:52] LABS: HEMATOCRIT 27.1 % (32.4-45.2); HEMOGLOBIN 8.8 GM/dL (10.7-15.3); MCH 29.7 pg (25.7-33.7); MCHC 32.3 g/dl (32.0-36.0); MEAN CELL VOLUME 91.8 fl (80-96); MEAN PLT VOLUME 8.3 fl (7.5-11.1); PLATELET COUNT 302 K/MM3 (134-434); RBC 2.95 M/mm3 (3.60-5.2); RDW 18.5 % (11.6-15.6); WHITE BLOOD COUNT 4.5 K/mm3 (4.0-10.0)
--- NOTE | 2018-01-19 09:00 | PN ---
Progress Note, Physician Chief Complaint: now on isolation for ESBL urine No chest pain or SOB - Current Medication List Current Medications: Active Medications Acetaminophen (Tylenol -) 325 mg PO Q6H PRN PRN Reason: PAIN LEVEL 4 - 6 Last Admin: 01/16/18 12:16 Dose: 325 mg Acetaminophen (Tylenol -) 650 mg PO Q6H PRN PRN Reason: PAIN LEVEL 6-10 Last Admin: 01/17/18 21:45 Dose: 650 mg Carvedilol (Coreg -) 25 mg PO BID [facility] Last Admin: 01/18/18 22:06 Dose: 25 mg Clopidogrel Bisulfate (Plavix -) 75 mg PO DAILY [facility] Last Admin: 01/18/18 10:34 Dose: 75 mg Colchicine (Colcrys -) 0.6 mg PO BID [facility] Last Admin: 01/18/18 22:06 Dose: 0.6 mg Diltiazem HCl (Cardizem Cd -) 240 mg PO DAILY [facility] Last Admin: 01/18/18 10:33 Dose: 240 mg Dorzolamide HCl (Trusopt 2%) 1 drop OU BID [facility] Last Admin: 01/18/18 22:07 Dose: 1 drop Enoxaparin Sodium (Lovenox -) 70 mg SQ BID [facility] Last Admin: 01/18/18 22:06 Dose: 70 mg Furosemide (Lasix -) 40 mg PO DAILY [facility] Last Admin: 01/18/18 10:33 Dose: 40 mg Hydroxychloroquine Sulfate (Plaquenil -) 200 mg PO DAILY [facility] Last Admin: 01/18/18 10:36 Dose: 200 mg Ertapenem 0.5 gm/ Sodium (Chloride) 100 mls @ 200 mls/hr IVPB DAILY [facility] PRN Reason: Protocol Last Admin: 01/18/18 17:42 Dose: 200 mls/hr Insulin Aspart (Novolog Vial Sliding Scale -) 1 vial SQ ACHS [facility] PRN Reason: Protocol Last Admin: 01/19/18 06:01 Dose: Not Given Insulin Detemir (Levemir Vial) 20 units SQ AM [facility] Last Admin: 01/19/18 06:31 Dose: 20 units Latanoprost (Xalatan 0.005% Eye Drops -) 1 drop OU HS [facility] Last Admin: 01/18/18 22:07 Dose: 1 drop Potassium Chloride (K-Dur -) 40 meq PO DAILY [facility] Last Admin: 01/18/18 10:35 Dose: 40 meq Prednisone (Deltasone -) 5 mg PO DAILY [facility] Last Admin: 01/18/18 10:33 Dose: 5 mg Timolol Maleate (Timoptic 0.5%) 1 drop OU BID [facility] Last Admin: 01/18/18 22:07 Dose: 1 drop - Objective Vital Signs: Vital Signs Temperature 98.3 F 01/19/18 06:13 Pulse Rate 66 01/19/18 06:13 Respiratory Rate 20 01/19/18 06:13 Blood Pressure 160/70 01/19/18 06:13 O2 Sat by Pulse Oximetry (%) 97 01/18/18 22:00 Constitutional: Yes: No Distress Cardiovascular: Yes: Regular Rate and Rhythm Respiratory: Yes: CTA Bilaterally Gastrointestinal: Yes: Soft (non-tender) Edema: No Neurological: Yes: Alert, Oriented ...Motor Strength: WNL Labs: CBC, BMP 01/19/18 06:20 01/16/18 06:48 INR, PTT INR 1.21 (0.82-1.09) H 01/12/18 06:55 Microbiology 01/15/18 17:52 Urine - Urine Clean Catch Urine Culture - Final Escherichia Coli Esbl 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[employer] Laboratory Tests 01/16/18 01/19/18 15:19 06:20 WBC 4.5 Hgb 8.8 L Plt Count 302 Stool Occult Blood Negative Assessment/Plan IMP: Anticardiolipin Ab + Suspected connective tissue disorder with markedly + MEGHANN Acute DVT while on Coumadin with fluctuating INRs Bilateral PNA (post-influenza), resolved PAF s/p PPM, prior CVA hematoma left lower extremity, resolved now worsened REC: Recent LLE DVT Recurrent hematoma LLE Hypercoagulable thus high risk to stop AC monitor H/H and transfuse as needed, H/H has been stable Monitor closely for development of compartment syndrome, ortho consult appreciated felt no evidence of compartment syndrome Vascular f/up Leg elevation Cont Lovenox for now Physical therapy, mobilization. ID/PMD input for UTI
[2018-01-19] MEDS ORDERED: PT OWN MED DRAWER 7, Y5N ONE ×2 (09:55→10:22)
[2018-01-19] MEDS: COLCHICINE 0.6 MG TABLET (FP) PO SCH ×2 (10:00→21:59)
[2018-01-19] MEDS: POTASSIUM CHLORIDE TABS 20 MEQ TABLET.ER (FP) PO SCH (10:00)
[2018-01-19] MEDS: predniSONE 10 MG TABLET (UD) PO SCH (10:00)
[2018-01-19] MEDS: CARVEDILOL 25 MG TABLET (FP) PO SCH ×2 (10:01→21:59)
[2018-01-19] MEDS: CLOPIDOGREL BISULFATE 75 MG TABLET (FP) PO SCH (10:01)
[2018-01-19] MEDS: FUROSEMIDE 40 MG TABLET (FP) PO SCH (10:01)
[2018-01-19] MEDS: HYDROXYCHLOROQUINE SO4 200 MG TABLET (FP) PO SCH (10:02)
[2018-01-19] MEDS: ENOXAPARIN NA (PORCINE) 80 MG/0.8 ML DISP.SYRIN SQ SCH ×2 (10:02→21:59)
[2018-01-19] MEDS: ERTAPENEM SODIUM 0.5 GM in SODIUM CHLORIDE 100 ML IVPB SCH (10:02)
[2018-01-19] MEDS: DORZOLAMIDE 2% HCL OPHTHALMIC SOLUTION 10 ML BOTTLE OU SCH ×2 (10:03→22:00)
[2018-01-19] MEDS: TIMOLOL 0.5% OPHTHALMIC SOL 5 ML BOTTLE OU SCH ×2 (10:03→22:00)
--- NOTE | 2018-01-19 12:14 | PN ---
Progress Note, Physician History of Present Illness: C/O dysuria/ frequency No c/o suprapubic or flank pain No fever/ chills - Current Medication List Current Medications: Active Medications Acetaminophen (Tylenol -) 325 mg PO Q6H PRN PRN Reason: PAIN LEVEL 4 - 6 Last Admin: 01/16/18 12:16 Dose: 325 mg Acetaminophen (Tylenol -) 650 mg PO Q6H PRN PRN Reason: PAIN LEVEL 6-10 Last Admin: 01/17/18 21:45 Dose: 650 mg Carvedilol (Coreg -) 25 mg PO BID [facility] Last Admin: 01/19/18 10:01 Dose: 25 mg Clopidogrel Bisulfate (Plavix -) 75 mg PO DAILY [facility] Last Admin: 01/19/18 10:01 Dose: 75 mg Colchicine (Colcrys -) 0.6 mg PO BID [facility] Last Admin: 01/19/18 10:00 Dose: 0.6 mg Diltiazem HCl (Cardizem Cd -) 240 mg PO DAILY [facility] Last Admin: 01/19/18 10:01 Dose: 240 mg Dorzolamide HCl (Trusopt 2%) 1 drop OU BID [facility] Last Admin: 01/19/18 10:03 Dose: 1 drop Enoxaparin Sodium (Lovenox -) 70 mg SQ BID [facility] Last Admin: 01/19/18 10:02 Dose: 70 mg Furosemide (Lasix -) 40 mg PO DAILY [facility] Last Admin: 01/19/18 10:01 Dose: 40 mg Hydroxychloroquine Sulfate (Plaquenil -) 200 mg PO DAILY [facility] Last Admin: 01/19/18 10:02 Dose: 200 mg Ertapenem 0.5 gm/ Sodium (Chloride) 100 mls @ 200 mls/hr IVPB DAILY [facility] PRN Reason: Protocol Last Admin: 01/19/18 10:02 Dose: 200 mls/hr Insulin Aspart (Novolog Vial Sliding Scale -) 1 vial SQ ACHS [facility] PRN Reason: Protocol Last Admin: 01/19/18 06:01 Dose: Not Given Insulin Detemir (Levemir Vial) 20 units SQ AM [facility] Last Admin: 01/19/18 06:31 Dose: 20 units Latanoprost (Xalatan 0.005% Eye Drops -) 1 drop OU HS [facility] Last Admin: 01/18/18 22:07 Dose: 1 drop Potassium Chloride (K-Dur -) 40 meq PO DAILY [facility] Last Admin: 01/19/18 10:00 Dose: 40 meq Prednisone (Deltasone -) 5 mg PO DAILY [facility] Last Admin: 01/19/18 10:00 Dose: 5 mg Timolol Maleate (Timoptic 0.5%) 1 drop OU BID [facility] Last Admin: 01/19/18 10:03 Dose: 1 drop - Objective Vital Signs: Vital Signs Temperature 98.3 F 01/19/18 06:13 Pulse Rate 66 01/19/18 06:13 Respiratory Rate 20 01/19/18 10:00 Blood Pressure 160/70 01/19/18 06:13 O2 Sat by Pulse Oximetry (%) 97 01/19/18 10:00 Constitutional: Yes: No Distress Eyes: Yes: Conjunctiva Clear Cardiovascular: Yes: Regular Rate and Rhythm, S1, S2 Respiratory: Yes: CTA Bilaterally Gastrointestinal: Yes: Normal Bowel Sounds, Soft. No: Tenderness Extremities: Yes: Other (+ L LE swelling, ecchymosis) Edema: Yes Labs: CBC, BMP 01/19/18 06:20 01/16/18 06:48 INR, PTT INR 1.21 (0.82-1.09) H 01/12/18 06:55 Assessment/Plan UTI ESL HX YAQUELIN Hx PCN allergy Continue ertapenem Contact precautions
[2018-01-19] MEDS ORDERED: INSULIN (NOVOLOG) ASPART 100 UNITS/ML 10ML VIAL ONE (21:34)
[2018-01-19] MEDS: LATANOPROST 0.005% OPHTH SOLN 2.5ML BOTTLE OU SCH (22:00)
--- NOTE | 2018-01-19 22:25 | PN ---
Progress Note, Physician - Current Medication List Current Medications: Active Medications Acetaminophen (Tylenol -) 325 mg PO Q6H PRN PRN Reason: PAIN LEVEL 4 - 6 Last Admin: 01/16/18 12:16 Dose: 325 mg Acetaminophen (Tylenol -) 650 mg PO Q6H PRN PRN Reason: PAIN LEVEL 6-10 Last Admin: 01/17/18 21:45 Dose: 650 mg Carvedilol (Coreg -) 25 mg PO BID [facility] Last Admin: 01/19/18 21:59 Dose: 25 mg Clopidogrel Bisulfate (Plavix -) 75 mg PO DAILY [facility] Last Admin: 01/19/18 10:01 Dose: 75 mg Colchicine (Colcrys -) 0.6 mg PO BID [facility] Last Admin: 01/19/18 21:59 Dose: 0.6 mg Diltiazem HCl (Cardizem Cd -) 240 mg PO DAILY [facility] Last Admin: 01/19/18 10:01 Dose: 240 mg Dorzolamide HCl (Trusopt 2%) 1 drop OU BID [facility] Last Admin: 01/19/18 22:00 Dose: 1 drop Enoxaparin Sodium (Lovenox -) 70 mg SQ BID [facility] Last Admin: 01/19/18 21:59 Dose: 70 mg Furosemide (Lasix -) 40 mg PO DAILY [facility] Last Admin: 01/19/18 10:01 Dose: 40 mg Hydroxychloroquine Sulfate (Plaquenil -) 200 mg PO DAILY [facility] Last Admin: 01/19/18 10:02 Dose: 200 mg Ertapenem 0.5 gm/ Sodium (Chloride) 100 mls @ 200 mls/hr IVPB DAILY [facility] PRN Reason: Protocol Last Admin: 01/19/18 10:02 Dose: 200 mls/hr Insulin Aspart (Novolog Vial Sliding Scale -) 1 vial SQ ACHS [facility] PRN Reason: Protocol Last Admin: 01/19/18 21:56 Dose: Not Given Insulin Detemir (Levemir Vial) 20 units SQ AM [facility] Last Admin: 01/19/18 06:31 Dose: 20 units Latanoprost (Xalatan 0.005% Eye Drops -) 1 drop OU HS [facility] Last Admin: 01/19/18 22:00 Dose: 1 drop Potassium Chloride (K-Dur -) 40 meq PO DAILY [facility] Last Admin: 01/19/18 10:00 Dose: 40 meq Prednisone (Deltasone -) 5 mg PO DAILY [facility] Last Admin: 01/19/18 10:00 Dose: 5 mg Timolol Maleate (Timoptic 0.5%) 1 drop OU BID [facility] Last Admin: 01/19/18 22:00 Dose: 1 drop - Objective Vital Signs: Vital Signs Temperature 97.2 F L 01/19/18 17:37 Pulse Rate 60 01/19/18 17:37 Respiratory Rate 20 01/19/18 17:37 Blood Pressure 136/63 01/19/18 17:37 O2 Sat by Pulse Oximetry (%) 97 01/19/18 10:00 Labs: CBC, BMP 01/19/18 06:20 01/16/18 06:48 INR, PTT INR 1.21 (0.82-1.09) H 01/12/18 06:55 Problem List - Problems (1) Anemia Code(s): D64.9 - ANEMIA, UNSPECIFIED (2) DVT (deep venous thrombosis) Code(s): I82.409 - ACUTE EMBOLISM AND THOMBOS UNSP DEEP VN UNSP LOWER EXTREMITY Qualifiers: DVT location: lower extremity Affected thrombotic vein of extremity: popliteal Chronicity: acute Laterality: left Qualified Code(s): I82.432 - Acute embolism and thrombosis of left popliteal vein (3) Hematoma of leg Code(s): S80.10XA - CONTUSION OF UNSPECIFIED LOWER LEG, INITIAL ENCOUNTER Qualifiers: Encounter type: initial encounter Laterality: left Qualified Code(s): S80.12XA - Contusion of left lower leg, initial encounter (4) Anticardiolipin antibody positive Code(s): R76.8 - OTHER SPECIFIED ABNORMAL IMMUNOLOGICAL FINDINGS IN SERUM (5) CHF (congestive heart failure) Code(s): I50.9 - HEART FAILURE, UNSPECIFIED (6) Diabetes Code(s): E11.9 - TYPE 2 DIABETES MELLITUS WITHOUT COMPLICATIONS Qualifiers: Diabetes mellitus type: type 2 (7) HLD (hyperlipidemia) Code(s): E78.5 - HYPERLIPIDEMIA, UNSPECIFIED (8) HTN (hypertension) Code(s): I10 - ESSENTIAL (PRIMARY) HYPERTENSION
[2018-01-20] MEDS: INSULIN SLIDING SCALE (NOVOLOG) 1 VIAL SQ SCH ×4 (06:33→22:07)
[2018-01-20] MEDS: INSULIN DETEMIR 100 UNITS/ML MDV SQ SCH (06:33)
[2018-01-20] MEDS ORDERED: PT OWN MED DRAWER 7, Y5N ONE (10:15)
[2018-01-20] MEDS: POTASSIUM CHLORIDE TABS 20 MEQ TABLET.ER (FP) PO SCH (10:23)
[2018-01-20] MEDS: FUROSEMIDE 40 MG TABLET (FP) PO SCH (10:23)
[2018-01-20] MEDS: HYDROXYCHLOROQUINE SO4 200 MG TABLET (FP) PO SCH (10:23)
[2018-01-20] MEDS: ENOXAPARIN NA (PORCINE) 80 MG/0.8 ML DISP.SYRIN SQ SCH ×2 (10:23→23:33)
[2018-01-20] MEDS: predniSONE 10 MG TABLET (UD) PO SCH (10:23)
[2018-01-20] MEDS: COLCHICINE 0.6 MG TABLET (FP) PO SCH ×2 (10:24→22:06)
[2018-01-20] MEDS: CARVEDILOL 25 MG TABLET (FP) PO SCH ×2 (10:24→22:06)
[2018-01-20] MEDS: TIMOLOL 0.5% OPHTHALMIC SOL 5 ML BOTTLE OU SCH ×2 (10:24→22:06)
[2018-01-20] MEDS: ERTAPENEM SODIUM 0.5 GM in SODIUM CHLORIDE 100 ML IVPB SCH (10:24)
[2018-01-20] MEDS: DORZOLAMIDE 2% HCL OPHTHALMIC SOLUTION 10 ML BOTTLE OU SCH ×2 (10:24→22:06)
[2018-01-20] MEDS: CLOPIDOGREL BISULFATE 75 MG TABLET (FP) PO SCH (10:24)
--- NOTE | 2018-01-20 13:31 | PN ---
Progress Note, Physician History of Present Illness: seen and examined today in nad. sitting in chair. pts daughter at bedside. pt feeling much better still has some pain LLE but significantly improved. LLE edema improving. walked with PT yesterday. no new complaints. - Current Medication List Current Medications: Active Medications Acetaminophen (Tylenol -) 325 mg PO Q6H PRN PRN Reason: PAIN LEVEL 4 - 6 Last Admin: 01/16/18 12:16 Dose: 325 mg Acetaminophen (Tylenol -) 650 mg PO Q6H PRN PRN Reason: PAIN LEVEL 6-10 Last Admin: 01/17/18 21:45 Dose: 650 mg Carvedilol (Coreg -) 25 mg PO BID [facility] Last Admin: 01/20/18 10:24 Dose: 25 mg Clopidogrel Bisulfate (Plavix -) 75 mg PO DAILY [facility] Last Admin: 01/20/18 10:24 Dose: 75 mg Colchicine (Colcrys -) 0.6 mg PO BID [facility] Last Admin: 01/20/18 10:24 Dose: 0.6 mg Diltiazem HCl (Cardizem Cd -) 240 mg PO DAILY [facility] Last Admin: 01/20/18 10:24 Dose: 240 mg Dorzolamide HCl (Trusopt 2%) 1 drop OU BID [facility] Last Admin: 01/20/18 10:24 Dose: 1 drop Furosemide (Lasix -) 40 mg PO DAILY [facility] Last Admin: 01/20/18 10:23 Dose: 40 mg Hydroxychloroquine Sulfate (Plaquenil -) 200 mg PO DAILY [facility] Last Admin: 01/20/18 10:23 Dose: 200 mg Ertapenem 0.5 gm/ Sodium (Chloride) 100 mls @ 200 mls/hr IVPB DAILY [facility] PRN Reason: Protocol Last Admin: 01/20/18 10:24 Dose: 200 mls/hr Insulin Aspart (Novolog Vial Sliding Scale -) 1 vial SQ ACHS [facility] PRN Reason: Protocol Last Admin: 01/20/18 11:54 Dose: 2 units Insulin Detemir (Levemir Vial) 20 units SQ AM [facility] Last Admin: 01/20/18 06:33 Dose: 20 units Latanoprost (Xalatan 0.005% Eye Drops -) 1 drop OU HS [facility] Last Admin: 01/19/18 22:00 Dose: 1 drop Potassium Chloride (K-Dur -) 40 meq PO DAILY [facility] Last Admin: 01/20/18 10:23 Dose: 40 meq Prednisone (Deltasone -) 5 mg PO DAILY [facility] Last Admin: 01/20/18 10:23 Dose: 5 mg Timolol Maleate (Timoptic 0.5%) 1 drop OU BID [facility] Last Admin: 01/20/18 10:24 Dose: 1 drop - Objective Vital Signs: Vital Signs Temperature 98.2 F 01/20/18 10:00 Pulse Rate 72 01/20/18 10:00 Respiratory Rate 18 01/20/18 10:00 Blood Pressure 122/73 01/20/18 10:00 O2 Sat by Pulse Oximetry (%) 97 01/19/18 22:00 Constitutional: Yes: No Distress, Calm Eyes: Yes: Conjunctiva Clear, EOM Intact, PERRL HENT: Yes: Atraumatic, Normocephalic Neck: Yes: Supple, Trachea Midline Cardiovascular: Yes: Regular Rate and Rhythm, S1, S2. No: Bradycardia, Tachycardia, Pulse Irregular, Bruit, JVD, Gallop, Murmur, Rub, S3, S4, Varicosities Respiratory: Yes: Regular. No: Rales, Rhonchi, Wheezes Gastrointestinal: Yes: Normal Bowel Sounds, Soft. No: Distention, Tenderness Musculoskeletal: Yes: Muscle Pain Extremities: Yes: Other (bruising) Edema: Yes Edema: LLE: Trace Peripheral Pulses WNL: Yes Peripheral Pulses: Left Doralis Pedis: 2+, Right Dorsalis Pedis: 2+ Neurological: Yes: Alert, Oriented Psychiatric: Yes: Alert, Oriented Labs: CBC, BMP 01/19/18 06:20 01/16/18 06:48 INR, PTT INR 1.21 (0.82-1.09) H 01/12/18 06:55 - ....Imaging Chest X-ray: Report Reviewed, Image Reviewed EKG: Report Reviewed, Image Reviewed Other: Report Reviewed, Image Reviewed Assessment/Plan IMP: Anticardiolipin Ab + Suspected connective tissue disorder with markedly + MEGHANN Acute DVT while on Coumadin with fluctuating INRs Bilateral PNA (post-influenza), resolved PAF s/p PPM, prior CVA hematoma left lower extremity, resolved now worsened REC: Recent LLE DVT Recurrent hematoma LLE Hypercoagulable thus high risk to stop AC monitor H/H and transfuse as needed, H/H has been stable LLE edema and pain significantly improved yesterday and today cont eg elevation Cont Lovenox Physical therapy, mobilization. On ABx for UTI Discharge planning to rehab in progress
--- NOTE | 2018-01-20 21:25 | PN ---
Progress Note, Physician - Current Medication List Current Medications: Active Medications Acetaminophen (Tylenol -) 325 mg PO Q6H PRN PRN Reason: PAIN LEVEL 4 - 6 Last Admin: 01/16/18 12:16 Dose: 325 mg Acetaminophen (Tylenol -) 650 mg PO Q6H PRN PRN Reason: PAIN LEVEL 6-10 Last Admin: 01/17/18 21:45 Dose: 650 mg Carvedilol (Coreg -) 25 mg PO BID [facility] Last Admin: 01/20/18 10:24 Dose: 25 mg Clopidogrel Bisulfate (Plavix -) 75 mg PO DAILY [facility] Last Admin: 01/20/18 10:24 Dose: 75 mg Colchicine (Colcrys -) 0.6 mg PO BID [facility] Last Admin: 01/20/18 10:24 Dose: 0.6 mg Diltiazem HCl (Cardizem Cd -) 240 mg PO DAILY [facility] Last Admin: 01/20/18 10:24 Dose: 240 mg Dorzolamide HCl (Trusopt 2%) 1 drop OU BID [facility] Last Admin: 01/20/18 10:24 Dose: 1 drop Furosemide (Lasix -) 40 mg PO DAILY [facility] Last Admin: 01/20/18 10:23 Dose: 40 mg Hydroxychloroquine Sulfate (Plaquenil -) 200 mg PO DAILY [facility] Last Admin: 01/20/18 10:23 Dose: 200 mg Ertapenem 0.5 gm/ Sodium (Chloride) 100 mls @ 200 mls/hr IVPB DAILY [facility] PRN Reason: Protocol Last Admin: 01/20/18 10:24 Dose: 200 mls/hr Insulin Aspart (Novolog Vial Sliding Scale -) 1 vial SQ ACHS [facility] PRN Reason: Protocol Last Admin: 01/20/18 17:11 Dose: 6 units Insulin Detemir (Levemir Vial) 20 units SQ AM [facility] Last Admin: 01/20/18 06:33 Dose: 20 units Latanoprost (Xalatan 0.005% Eye Drops -) 1 drop OU HS [facility] Last Admin: 01/19/18 22:00 Dose: 1 drop Potassium Chloride (K-Dur -) 40 meq PO DAILY [facility] Last Admin: 01/20/18 10:23 Dose: 40 meq Prednisone (Deltasone -) 5 mg PO DAILY [facility] Last Admin: 01/20/18 10:23 Dose: 5 mg Timolol Maleate (Timoptic 0.5%) 1 drop OU BID [facility] Last Admin: 01/20/18 10:24 Dose: 1 drop - Objective Vital Signs: Vital Signs Temperature 98.4 F 01/20/18 18:59 Pulse Rate 61 01/20/18 18:59 Respiratory Rate 18 01/20/18 18:59 Blood Pressure 144/71 01/20/18 18:59 O2 Sat by Pulse Oximetry (%) 97 01/20/18 10:00 Labs: CBC, BMP 01/19/18 06:20 01/16/18 06:48 INR, PTT INR 1.21 (0.82-1.09) H 01/12/18 06:55 Problem List - Problems (1) Anemia Code(s): D64.9 - ANEMIA, UNSPECIFIED (2) DVT (deep venous thrombosis) Code(s): I82.409 - ACUTE EMBOLISM AND THOMBOS UNSP DEEP VN UNSP LOWER EXTREMITY Qualifiers: DVT location: lower extremity Affected thrombotic vein of extremity: popliteal Chronicity: acute Laterality: left Qualified Code(s): I82.432 - Acute embolism and thrombosis of left popliteal vein (3) Hematoma of leg Code(s): S80.10XA - CONTUSION OF UNSPECIFIED LOWER LEG, INITIAL ENCOUNTER Qualifiers: Encounter type: initial encounter Laterality: left Qualified Code(s): S80.12XA - Contusion of left lower leg, initial encounter (4) Anticardiolipin antibody positive Code(s): R76.8 - OTHER SPECIFIED ABNORMAL IMMUNOLOGICAL FINDINGS IN SERUM (5) CHF (congestive heart failure) Code(s): I50.9 - HEART FAILURE, UNSPECIFIED (6) Diabetes Code(s): E11.9 - TYPE 2 DIABETES MELLITUS WITHOUT COMPLICATIONS Qualifiers: Diabetes mellitus type: type 2 (7) HLD (hyperlipidemia) Code(s): E78.5 - HYPERLIPIDEMIA, UNSPECIFIED (8) HTN (hypertension) Code(s): I10 - ESSENTIAL (PRIMARY) HYPERTENSION
[2018-01-20] MEDS: LATANOPROST 0.005% OPHTH SOLN 2.5ML BOTTLE OU SCH (22:06)
[2018-01-21] MEDS: INSULIN SLIDING SCALE (NOVOLOG) 1 VIAL SQ SCH ×4 (06:15→23:58)
[2018-01-21] MEDS: INSULIN DETEMIR 100 UNITS/ML MDV SQ SCH (06:16)
--- NOTE | 2018-01-21 10:06 | PN ---
Progress Note, Physician Chief Complaint: no distress Discussed with daughters over the phone-- they are in process exploring rehab places History of Present Illness: patient denies CP, SOB, palps - Current Medication List Current Medications: Active Medications Acetaminophen (Tylenol -) 325 mg PO Q6H PRN PRN Reason: PAIN LEVEL 4 - 6 Last Admin: 01/16/18 12:16 Dose: 325 mg Acetaminophen (Tylenol -) 650 mg PO Q6H PRN PRN Reason: PAIN LEVEL 6-10 Last Admin: 01/17/18 21:45 Dose: 650 mg Carvedilol (Coreg -) 25 mg PO BID [facility] Last Admin: 01/20/18 22:06 Dose: 25 mg Clopidogrel Bisulfate (Plavix -) 75 mg PO DAILY [facility] Last Admin: 01/20/18 10:24 Dose: 75 mg Colchicine (Colcrys -) 0.6 mg PO BID [facility] Last Admin: 01/20/18 22:06 Dose: 0.6 mg Diltiazem HCl (Cardizem Cd -) 240 mg PO DAILY [facility] Last Admin: 01/20/18 10:24 Dose: 240 mg Dorzolamide HCl (Trusopt 2%) 1 drop OU BID [facility] Last Admin: 01/20/18 22:06 Dose: 1 drop Enoxaparin Sodium (Lovenox -) 70 mg SQ BID [facility] Last Admin: 01/20/18 23:33 Dose: 70 mg Furosemide (Lasix -) 40 mg PO DAILY [facility] Last Admin: 01/20/18 10:23 Dose: 40 mg Hydroxychloroquine Sulfate (Plaquenil -) 200 mg PO DAILY [facility] Last Admin: 01/20/18 10:23 Dose: 200 mg Ertapenem 0.5 gm/ Sodium (Chloride) 100 mls @ 200 mls/hr IVPB DAILY [facility] PRN Reason: Protocol Last Admin: 01/20/18 10:24 Dose: 200 mls/hr Insulin Aspart (Novolog Vial Sliding Scale -) 1 vial SQ ACHS [facility] PRN Reason: Protocol Last Admin: 01/21/18 06:15 Dose: Not Given Insulin Detemir (Levemir Vial) 20 units SQ AM [facility] Last Admin: 01/21/18 06:16 Dose: 20 units Latanoprost (Xalatan 0.005% Eye Drops -) 1 drop OU HS [facility] Last Admin: 01/20/18 22:06 Dose: 1 drop Potassium Chloride (K-Dur -) 40 meq PO DAILY [facility] Last Admin: 01/20/18 10:23 Dose: 40 meq Prednisone (Deltasone -) 5 mg PO DAILY [facility] Last Admin: 01/20/18 10:23 Dose: 5 mg Timolol Maleate (Timoptic 0.5%) 1 drop OU BID [facility] Last Admin: 01/20/18 22:06 Dose: 1 drop - Objective Vital Signs: Vital Signs Temperature 98.1 F 01/21/18 06:00 Pulse Rate 63 01/21/18 06:00 Respiratory Rate 20 01/21/18 06:00 Blood Pressure 141/62 01/21/18 06:00 O2 Sat by Pulse Oximetry (%) 96 01/20/18 22:00 Constitutional: Yes: Calm Cardiovascular: Yes: Regular Rate and Rhythm Respiratory: Yes: CTA Bilaterally Gastrointestinal: Yes: Soft (nontender) Edema: Yes Edema: LLE: 1+, RLE: 1+ Neurological: Yes: Alert Labs: CBC, BMP 01/19/18 06:20 01/16/18 06:48 INR, PTT INR 1.21 (0.82-1.09) H 01/12/18 06:55 Assessment/Plan Assessment/Plan IMP: Anticardiolipin Ab + Suspected connective tissue disorder with markedly + MEGHANN Acute DVT while on Coumadin with fluctuating INRs Bilateral PNA (post-influenza), resolved PAF s/p PPM, prior CVA hematoma left lower extremity, overall improved from admission REC: Recent LLE DVT Recurrent hematoma LLE Hypercoagulable thus high risk to stop AC monitor H/H and transfuse as needed, H/H has been stable LLE edema and pain significantly improved since admission Cont Lovenox Physical therapy, mobilization. On ABx for UTI Discharge planning to rehab in progress
[2018-01-21] MEDS: POTASSIUM CHLORIDE TABS 20 MEQ TABLET.ER (FP) PO SCH (10:44)
[2018-01-21] MEDS: COLCHICINE 0.6 MG TABLET (FP) PO SCH ×2 (10:44→23:57)
[2018-01-21] MEDS: predniSONE 10 MG TABLET (UD) PO SCH (10:44)
[2018-01-21] MEDS: CARVEDILOL 25 MG TABLET (FP) PO SCH ×2 (10:45→23:57)
[2018-01-21] MEDS: FUROSEMIDE 40 MG TABLET (FP) PO SCH (10:45)
[2018-01-21] MEDS: DORZOLAMIDE 2% HCL OPHTHALMIC SOLUTION 10 ML BOTTLE OU SCH ×2 (10:45→23:58)
[2018-01-21] MEDS: ERTAPENEM SODIUM 0.5 GM in SODIUM CHLORIDE 100 ML IVPB SCH (10:45)
[2018-01-21] MEDS: CLOPIDOGREL BISULFATE 75 MG TABLET (FP) PO SCH (10:45)
[2018-01-21] MEDS: ENOXAPARIN NA (PORCINE) 80 MG/0.8 ML DISP.SYRIN SQ SCH ×2 (10:45→23:58)
[2018-01-21] MEDS: TIMOLOL 0.5% OPHTHALMIC SOL 5 ML BOTTLE OU SCH ×2 (10:45→23:58)
[2018-01-21] MEDS ORDERED: PT OWN MED DRAWER 7, Y5N ONE (10:59)
[2018-01-21] MEDS: HYDROXYCHLOROQUINE SO4 200 MG TABLET (FP) PO SCH (11:01)
--- NOTE | 2018-01-21 11:51 | PN ---
Progress Note (short form) - Note Progress Note: Pt seen and examined. spoke to daughters over the phome Pt feeling well. On ertepenam for ESBL Leg much improved. Tolerating PT Last Vital Signs Temp Pulse Resp BP Pulse Ox 98.1 F 63 20 141/62 96 01/21/18 06:00 01/21/18 06:00 01/21/18 06:00 01/21/18 06:00 01/20/18 22:00 CBC, BMP 01/19/18 06:20 01/16/18 06:48 Current Medications Generic Name Dose Route Start Last Admin Trade Name Freq PRN Reason Stop Dose Admin Acetaminophen 325 mg 01/11/18 14:11 01/16/18 12:16 Tylenol - PO 325 mg Q6H PRN Administration PAIN LEVEL 4 - 6 Acetaminophen 650 mg 01/16/18 13:46 01/17/18 21:45 Tylenol - PO 650 mg Q6H PRN Administration PAIN LEVEL 6-10 Carvedilol 25 mg 01/11/18 22:00 01/21/18 10:45 Coreg - PO 25 mg BID JONAS Administration Clopidogrel Bisulfate 75 mg 01/12/18 10:00 01/21/18 10:45 Plavix - PO 75 mg DAILY JONAS Administration Colchicine 0.6 mg 01/11/18 22:00 01/21/18 10:44 Colcrys - PO 0.6 mg BID JONAS Administration Diltiazem HCl 240 mg 01/12/18 10:00 01/21/18 10:44 Cardizem Cd - PO 240 mg DAILY JONAS Administration Dorzolamide HCl 1 drop 01/13/18 10:00 01/21/18 10:45 Trusopt 2% OU 1 drop BID JONAS Administration Enoxaparin Sodium 70 mg 01/20/18 23:15 01/21/18 10:45 Lovenox - SQ 70 mg BID JONAS Administration Furosemide 40 mg 01/12/18 10:00 01/21/18 10:45 Lasix - PO 40 mg DAILY JONAS Administration Hydroxychloroquine Sulfate 200 mg 01/12/18 10:00 01/21/18 11:01 Plaquenil - PO 200 mg DAILY JONAS Administration Ertapenem 0.5 gm/ Sodium 100 mls @ 200 mls/hr 01/18/18 17:00 01/21/18 10:45 Chloride IVPB 200 mls/hr DAILY JONAS Administration Protocol Insulin Aspart 1 vial 01/11/18 16:30 01/21/18 11:21 Novolog Vial Sliding Scale - SQ 2 units ACHS JONAS Administration Protocol Insulin Detemir 20 units 01/12/18 07:00 01/21/18 06:16 Levemir Vial SQ 20 units AM JONAS Administration Latanoprost 1 drop 01/13/18 22:00 01/20/18 22:06 Xalatan 0.005% Eye Drops - OU 1 drop HS JONAS Administration Potassium Chloride 40 meq 01/12/18 10:00 01/21/18 10:44 K-Dur - PO 40 meq DAILY JONAS Administration Prednisone 5 mg 01/17/18 17:30 01/21/18 10:44 Deltasone - PO 5 mg DAILY JONAS Administration Timolol Maleate 1 drop 01/13/18 10:00 01/21/18 10:45 Timoptic 0.5% OU 1 drop BID JONAS Administration O/E: General: NAD HEENT: NCAT Cor: RRR Lungs: CTA b/l Abd: Soft LE: left: much improvement in the LLE.+DP. A/P: H/o Recent DVT ( d/c on Lovenox ) with an underlying hypercoag disorder ( Anticardiolipin Ab +, APLS) hematoma left lower extremity in the past admission, was better but now with acute worsening. ESBL on abx c/w systemic AC, Lovenox. Hct stable , leg improving overall well. On plaquenil and prednisone for Lupus. On prednisone taper. supportive measures for the LLE continued, participating in PT well. ESBL : On Ertapenam PT eval. continued daughters to f.u in re: to SNF/Rehab. f.u closely with all her physicians upon d/c, daughters aware Problem List - Problems (1) Anemia Code(s): D64.9 - ANEMIA, UNSPECIFIED (2) Hematoma of leg Code(s): S80.10XA - CONTUSION OF UNSPECIFIED LOWER LEG, INITIAL ENCOUNTER Qualifiers: Encounter type: initial encounter Laterality: left Qualified Code(s): S80.12XA - Contusion of left lower leg, initial encounter (3) Anticardiolipin antibody positive Code(s): R76.8 - OTHER SPECIFIED ABNORMAL IMMUNOLOGICAL FINDINGS IN SERUM (4) DVT (deep venous thrombosis) Code(s): I82.409 - ACUTE EMBOLISM AND THOMBOS UNSP DEEP VN UNSP LOWER EXTREMITY Qualifiers: DVT location: lower extremity Affected thrombotic vein of extremity: popliteal Chronicity: acute Laterality: left Qualified Code(s): I82.432 - Acute embolism and thrombosis of left popliteal vein (5) HX: anticoagulation Code(s): Z92.29 - PERSONAL HISTORY OF OTHER DRUG THERAPY
--- NOTE | 2018-01-21 12:03 | PN ---
Progress Note, Physician History of Present Illness: Awake, alert OOB in chair Denies dysuria/ frequency No c/o suprapubic or flank pain No fever/ chills Tolerating antibiotic - Current Medication List Current Medications: Active Medications Acetaminophen (Tylenol -) 325 mg PO Q6H PRN PRN Reason: PAIN LEVEL 4 - 6 Last Admin: 01/16/18 12:16 Dose: 325 mg Acetaminophen (Tylenol -) 650 mg PO Q6H PRN PRN Reason: PAIN LEVEL 6-10 Last Admin: 01/17/18 21:45 Dose: 650 mg Carvedilol (Coreg -) 25 mg PO BID [facility] Last Admin: 01/21/18 10:45 Dose: 25 mg Clopidogrel Bisulfate (Plavix -) 75 mg PO DAILY [facility] Last Admin: 01/21/18 10:45 Dose: 75 mg Colchicine (Colcrys -) 0.6 mg PO BID [facility] Last Admin: 01/21/18 10:44 Dose: 0.6 mg Diltiazem HCl (Cardizem Cd -) 240 mg PO DAILY [facility] Last Admin: 01/21/18 10:44 Dose: 240 mg Dorzolamide HCl (Trusopt 2%) 1 drop OU BID [facility] Last Admin: 01/21/18 10:45 Dose: 1 drop Enoxaparin Sodium (Lovenox -) 70 mg SQ BID [facility] Last Admin: 01/21/18 10:45 Dose: 70 mg Furosemide (Lasix -) 40 mg PO DAILY [facility] Last Admin: 01/21/18 10:45 Dose: 40 mg Hydroxychloroquine Sulfate (Plaquenil -) 200 mg PO DAILY [facility] Last Admin: 01/21/18 11:01 Dose: 200 mg Ertapenem 0.5 gm/ Sodium (Chloride) 100 mls @ 200 mls/hr IVPB DAILY [facility] PRN Reason: Protocol Last Admin: 01/21/18 10:45 Dose: 200 mls/hr Insulin Aspart (Novolog Vial Sliding Scale -) 1 vial SQ ACHS [facility] PRN Reason: Protocol Last Admin: 01/21/18 11:21 Dose: 2 units Insulin Detemir (Levemir Vial) 20 units SQ AM [facility] Last Admin: 01/21/18 06:16 Dose: 20 units Latanoprost (Xalatan 0.005% Eye Drops -) 1 drop OU HS [facility] Last Admin: 01/20/18 22:06 Dose: 1 drop Potassium Chloride (K-Dur -) 40 meq PO DAILY [facility] Last Admin: 01/21/18 10:44 Dose: 40 meq Prednisone (Deltasone -) 5 mg PO DAILY [facility] Last Admin: 01/21/18 10:44 Dose: 5 mg Timolol Maleate (Timoptic 0.5%) 1 drop OU BID [facility] Last Admin: 01/21/18 10:45 Dose: 1 drop - Objective Vital Signs: Vital Signs Temperature 98.1 F 01/21/18 06:00 Pulse Rate 63 01/21/18 06:00 Respiratory Rate 20 01/21/18 06:00 Blood Pressure 141/62 01/21/18 06:00 O2 Sat by Pulse Oximetry (%) 96 01/20/18 22:00 Constitutional: Yes: No Distress Eyes: Yes: Conjunctiva Clear Cardiovascular: Yes: Regular Rate and Rhythm, S1, S2 Respiratory: Yes: CTA Bilaterally Gastrointestinal: Yes: Normal Bowel Sounds, Soft, Other (no suprapubic tenderness). No: Tenderness Genitourinary: No: CVA Tenderness - Left, CVA Tenderness - Right Edema: Yes Edema: LLE: 1+, RLE: 1+ Labs: CBC, BMP 01/19/18 06:20 01/16/18 06:48 INR, PTT INR 1.21 (0.82-1.09) H 01/12/18 06:55 Assessment/Plan UTI ESBL HX YAQUELIN Hx PCN allergy Continue ertapenem additional 24hr, then D/C Contact precautions
--- NOTE | 2018-01-21 21:33 | PN ---
Progress Note, Physician History of Present Illness: No new complaints - Current Medication List Current Medications: Active Medications Acetaminophen (Tylenol -) 325 mg PO Q6H PRN PRN Reason: PAIN LEVEL 4 - 6 Last Admin: 01/16/18 12:16 Dose: 325 mg Acetaminophen (Tylenol -) 650 mg PO Q6H PRN PRN Reason: PAIN LEVEL 6-10 Last Admin: 01/17/18 21:45 Dose: 650 mg Carvedilol (Coreg -) 25 mg PO BID [facility] Last Admin: 01/21/18 10:45 Dose: 25 mg Clopidogrel Bisulfate (Plavix -) 75 mg PO DAILY [facility] Last Admin: 01/21/18 10:45 Dose: 75 mg Colchicine (Colcrys -) 0.6 mg PO BID [facility] Last Admin: 01/21/18 10:44 Dose: 0.6 mg Diltiazem HCl (Cardizem Cd -) 240 mg PO DAILY [facility] Last Admin: 01/21/18 10:44 Dose: 240 mg Dorzolamide HCl (Trusopt 2%) 1 drop OU BID [facility] Last Admin: 01/21/18 10:45 Dose: 1 drop Enoxaparin Sodium (Lovenox -) 70 mg SQ BID [facility] Last Admin: 01/21/18 10:45 Dose: 70 mg Furosemide (Lasix -) 40 mg PO DAILY [facility] Last Admin: 01/21/18 10:45 Dose: 40 mg Hydroxychloroquine Sulfate (Plaquenil -) 200 mg PO DAILY [facility] Last Admin: 01/21/18 11:01 Dose: 200 mg Ertapenem 0.5 gm/ Sodium (Chloride) 100 mls @ 200 mls/hr IVPB DAILY [facility] PRN Reason: Protocol Last Admin: 01/21/18 10:45 Dose: 200 mls/hr Insulin Aspart (Novolog Vial Sliding Scale -) 1 vial SQ ACHS [facility] PRN Reason: Protocol Last Admin: 01/21/18 17:14 Dose: 8 units Insulin Detemir (Levemir Vial) 20 units SQ AM [facility] Last Admin: 01/21/18 06:16 Dose: 20 units Latanoprost (Xalatan 0.005% Eye Drops -) 1 drop OU HS [facility] Last Admin: 01/20/18 22:06 Dose: 1 drop Potassium Chloride (K-Dur -) 40 meq PO DAILY [facility] Last Admin: 01/21/18 10:44 Dose: 40 meq Prednisone (Deltasone -) 5 mg PO DAILY [facility] Last Admin: 01/21/18 10:44 Dose: 5 mg Timolol Maleate (Timoptic 0.5%) 1 drop OU BID [facility] Last Admin: 01/21/18 10:45 Dose: 1 drop - Objective Vital Signs: Vital Signs Temperature 98.3 F 01/21/18 16:55 Pulse Rate 63 01/21/18 16:55 Respiratory Rate 20 01/21/18 16:55 Blood Pressure 143/63 01/21/18 16:55 O2 Sat by Pulse Oximetry (%) 98 01/21/18 10:00 Constitutional: Yes: Well Nourished Neck: Yes: WNL, Supple Cardiovascular: Yes: WNL, Regular Rate and Rhythm, Murmur Respiratory: Yes: WNL, Regular, CTA Bilaterally Gastrointestinal: Yes: WNL, Normal Bowel Sounds, Soft Extremities: Yes: Other ((+) LLE eccyhmosis) Labs: CBC, BMP 01/19/18 06:20 01/16/18 06:48 INR, PTT INR 1.21 (0.82-1.09) H 01/12/18 06:55 Problem List - Problems (1) Anemia Code(s): D64.9 - ANEMIA, UNSPECIFIED (2) DVT (deep venous thrombosis) Assessment/Plan: Cont lovenox Code(s): I82.409 - ACUTE EMBOLISM AND THOMBOS UNSP DEEP VN UNSP LOWER EXTREMITY Qualifiers: DVT location: lower extremity Affected thrombotic vein of extremity: popliteal Chronicity: acute Laterality: left Qualified Code(s): I82.432 - Acute embolism and thrombosis of left popliteal vein (3) Hematoma of leg Assessment/Plan: Cont to monitor Pt was ruled out for compartment syndrome by vasc/surgeon Leg elevation Code(s): S80.10XA - CONTUSION OF UNSPECIFIED LOWER LEG, INITIAL ENCOUNTER Qualifiers: Encounter type: initial encounter Laterality: left Qualified Code(s): S80.12XA - Contusion of left lower leg, initial encounter (4) Anticardiolipin antibody positive Assessment/Plan: Cont plavix Code(s): R76.8 - OTHER SPECIFIED ABNORMAL IMMUNOLOGICAL FINDINGS IN SERUM (5) CHF (congestive heart failure) Assessment/Plan: Cont lasix Code(s): I50.9 - HEART FAILURE, UNSPECIFIED (6) Diabetes Assessment/Plan: Cont levemir and sliding scale w/ novolog Code(s): E11.9 - TYPE 2 DIABETES MELLITUS WITHOUT COMPLICATIONS Qualifiers: Diabetes mellitus type: type 2 (7) HLD (hyperlipidemia) Code(s): E78.5 - HYPERLIPIDEMIA, UNSPECIFIED (8) HTN (hypertension) Code(s): I10 - ESSENTIAL (PRIMARY) HYPERTENSION
[2018-01-21] MEDS: LATANOPROST 0.005% OPHTH SOLN 2.5ML BOTTLE OU SCH (23:58)
[2018-01-22] MEDS: INSULIN SLIDING SCALE (NOVOLOG) 1 VIAL SQ SCH ×4 (06:56→21:40)
[2018-01-22] MEDS: INSULIN DETEMIR 100 UNITS/ML MDV SQ SCH (06:56)
[2018-01-22] MEDS ORDERED: INSULIN (NOVOLOG) ASPART 100 UNITS/ML 10ML VIAL ONE ×2 (07:03→12:08)
[2018-01-22 08:19] LABS: BASO % 0.7 % (0-2.0); EOS % 3.1 % (0-4.5); HEMATOCRIT 28.4 % (32.4-45.2); HEMOGLOBIN 9.2 GM/dL (10.7-15.3); LYMPH % 27.5 % (8-40); MCH 29.4 pg (25.7-33.7); MCHC 32.4 g/dl (32.0-36.0); MEAN CELL VOLUME 90.9 fl (80-96); MEAN PLT VOLUME 8.1 fl (7.5-11.1); MONO % 10.5 % (3.8-10.2); NEUT % 58.2 % (42.8-82.8); PLATELET COUNT 304 K/MM3 (134-434); RBC 3.12 M/mm3 (3.60-5.2); RDW 18.2 % (11.6-15.6); WHITE BLOOD COUNT 5.1 K/mm3 (4.0-10.0)
[2018-01-22] MEDS ORDERED: PT OWN MED DRAWER 7, Y5N ONE ×2 (09:08→13:46)
[2018-01-22] MEDS: ENOXAPARIN NA (PORCINE) 80 MG/0.8 ML DISP.SYRIN SQ SCH ×2 (09:12→21:39)
[2018-01-22] MEDS: CARVEDILOL 25 MG TABLET (FP) PO SCH ×2 (09:13→21:38)
[2018-01-22] MEDS: predniSONE 10 MG TABLET (UD) PO SCH (09:13)
[2018-01-22] MEDS: TIMOLOL 0.5% OPHTHALMIC SOL 5 ML BOTTLE OU SCH ×2 (09:13→21:44)
[2018-01-22] MEDS: ACETAMINOPHEN 325 MG TABLET (FP) PO PRN ×2 (09:14→17:09)
[2018-01-22] MEDS: CLOPIDOGREL BISULFATE 75 MG TABLET (FP) PO SCH (09:14)
[2018-01-22] MEDS: POTASSIUM CHLORIDE TABS 20 MEQ TABLET.ER (FP) PO SCH (09:17)
[2018-01-22] MEDS: DORZOLAMIDE 2% HCL OPHTHALMIC SOLUTION 10 ML BOTTLE OU SCH ×2 (09:18→21:44)
[2018-01-22] MEDS: FUROSEMIDE 40 MG TABLET (FP) PO SCH (09:18)
[2018-01-22] MEDS: COLCHICINE 0.6 MG TABLET (FP) PO SCH ×2 (09:18→21:39)
[2018-01-22] MEDS: HYDROXYCHLOROQUINE SO4 200 MG TABLET (FP) PO SCH (09:19)
[2018-01-22] MEDS: ERTAPENEM SODIUM 0.5 GM in SODIUM CHLORIDE 100 ML IVPB SCH (14:38)
--- NOTE | 2018-01-22 20:44 | PN ---
Progress Note, Physician Chief Complaint: Pt A&Ox3; "everything is fine except my left foot" (tender, purpuric foot, ankle , and posterior Achilles-->calf, though improving. History of Present Illness: 72-year-old woman with left lower extremity DVT complaining and hematoma complaining of worsening swelling and pain to the left lower extremity. Patient with extensive admission in the hospital at [facility] and has been inpatient at [facility]. Patient was discharged to home on 01/10/2018. As per daughter patient did extensive walking with the walker at home and seemed has worsened hematoma to the left lower extremity. Patient has a past medical history of PAF on Coumadin; CVA, hypertension, renal artery stenosis-->left renal artery stent; coronary artery disease, anticardiolipin AB+, pericardial effusion, diabetes - Current Medication List Current Medications: Active Medications Acetaminophen (Tylenol -) 325 mg PO Q6H PRN PRN Reason: PAIN LEVEL 4 - 6 Last Admin: 01/16/18 12:16 Dose: 325 mg Acetaminophen (Tylenol -) 650 mg PO Q6H PRN PRN Reason: PAIN LEVEL 6-10 Last Admin: 01/22/18 17:09 Dose: 650 mg Carvedilol (Coreg -) 25 mg PO BID [facility] Last Admin: 01/22/18 09:13 Dose: 25 mg Clopidogrel Bisulfate (Plavix -) 75 mg PO DAILY [facility] Last Admin: 01/22/18 09:14 Dose: 75 mg Colchicine (Colcrys -) 0.6 mg PO BID [facility] Last Admin: 01/22/18 09:18 Dose: 0.6 mg Diltiazem HCl (Cardizem Cd -) 240 mg PO DAILY [facility] Last Admin: 01/22/18 09:17 Dose: 240 mg Dorzolamide HCl (Trusopt 2%) 1 drop OU BID [facility] Last Admin: 01/22/18 09:18 Dose: 1 drop Enoxaparin Sodium (Lovenox -) 70 mg SQ BID [facility] Last Admin: 01/22/18 09:12 Dose: 70 mg Furosemide (Lasix -) 40 mg PO DAILY [facility] Last Admin: 01/22/18 09:18 Dose: 40 mg Hydroxychloroquine Sulfate (Plaquenil -) 200 mg PO DAILY [facility] Last Admin: 01/22/18 09:19 Dose: 200 mg Ertapenem 0.5 gm/ Sodium (Chloride) 100 mls @ 200 mls/hr IVPB DAILY [facility] PRN Reason: Protocol Last Admin: 01/22/18 14:38 Dose: 200 mls/hr Insulin Aspart (Novolog Vial Sliding Scale -) 1 vial SQ ACHS [facility] PRN Reason: Protocol Last Admin: 01/22/18 16:44 Dose: 4 units Insulin Detemir (Levemir Vial) 20 units SQ AM [facility] Last Admin: 01/22/18 06:56 Dose: 20 units Latanoprost (Xalatan 0.005% Eye Drops -) 1 drop OU HS [facility] Last Admin: 01/21/18 23:58 Dose: 1 drop Potassium Chloride (K-Dur -) 40 meq PO DAILY [facility] Last Admin: 01/22/18 09:17 Dose: 40 meq Prednisone (Deltasone -) 5 mg PO DAILY [facility] Last Admin: 01/22/18 09:13 Dose: 5 mg Timolol Maleate (Timoptic 0.5%) 1 drop OU BID [facility] Last Admin: 01/22/18 09:13 Dose: 1 drop - Objective Vital Signs: Vital Signs Temperature 98 F 01/22/18 16:30 Pulse Rate 96 H 01/22/18 16:30 Respiratory Rate 18 01/22/18 16:30 Blood Pressure 134/61 01/22/18 16:30 O2 Sat by Pulse Oximetry (%) 100 01/22/18 10:00 Constitutional: Yes: No Distress Eyes: Yes: WNL HENT: Yes: WNL Neck: Yes: WNL Labs: CBC, BMP 01/22/18 07:00 01/16/18 06:48 INR, PTT INR 1.21 (0.82-1.09) H 01/12/18 06:55 Problem List - Problems (1) Hematoma of leg Code(s): S80.10XA - CONTUSION OF UNSPECIFIED LOWER LEG, INITIAL ENCOUNTER Qualifiers: Encounter type: initial encounter Laterality: left Qualified Code(s): S80.12XA - Contusion of left lower leg, initial encounter (2) Afib Assessment/Plan: On carvedilol and diltiazem. On Lovenox (DVT; AF). Code(s): I48.91 - UNSPECIFIED ATRIAL FIBRILLATION Qualifiers: Atrial fibrillation type: paroxysmal Qualified Code(s): I48.0 - Paroxysmal atrial fibrillation (3) Anticardiolipin antibody positive Code(s): R76.8 - OTHER SPECIFIED ABNORMAL IMMUNOLOGICAL FINDINGS IN SERUM (4) Diabetes Code(s): E11.9 - TYPE 2 DIABETES MELLITUS WITHOUT COMPLICATIONS Qualifiers: Diabetes mellitus type: type 2 (5) HLD (hyperlipidemia) Assessment/Plan: LDL 106 mg/dL in 2011; repeat lipid panel (given risk factors, would start statin). Code(s): E78.5 - HYPERLIPIDEMIA, UNSPECIFIED (6) HTN (hypertension) Code(s): I10 - ESSENTIAL (PRIMARY) HYPERTENSION (7) Antiphospholipid antibody syndrome Code(s): D68.61 - ANTIPHOSPHOLIPID SYNDROME (8) DVT (deep venous thrombosis) Assessment/Plan: Recent DVT; now with LLE hematoma after felt her leg "twist" while using walker at home. On Lovenox 1 mg/Kg BW bid pending decision on PO agent. Code(s): I82.409 - ACUTE EMBOLISM AND THOMBOS UNSP DEEP VN UNSP LOWER EXTREMITY Qualifiers: DVT location: lower extremity Affected thrombotic vein of extremity: popliteal Chronicity: acute Laterality: left Qualified Code(s): I82.432 - Acute embolism and thrombosis of left popliteal vein (9) Pericardial effusion Assessment/Plan: by hx; none noted in late December ECHO. Code(s): I31.3 - PERICARDIAL EFFUSION (NONINFLAMMATORY)
[2018-01-22] MEDS: LATANOPROST 0.005% OPHTH SOLN 2.5ML BOTTLE OU SCH (21:44)
--- NOTE | 2018-01-22 21:55 | PN ---
Progress Note, Physician - Current Medication List Current Medications: Active Medications Acetaminophen (Tylenol -) 325 mg PO Q6H PRN PRN Reason: PAIN LEVEL 4 - 6 Last Admin: 01/16/18 12:16 Dose: 325 mg Acetaminophen (Tylenol -) 650 mg PO Q6H PRN PRN Reason: PAIN LEVEL 6-10 Last Admin: 01/22/18 17:09 Dose: 650 mg Carvedilol (Coreg -) 25 mg PO BID [facility] Last Admin: 01/22/18 21:38 Dose: 25 mg Clopidogrel Bisulfate (Plavix -) 75 mg PO DAILY [facility] Last Admin: 01/22/18 09:14 Dose: 75 mg Colchicine (Colcrys -) 0.6 mg PO BID [facility] Last Admin: 01/22/18 21:39 Dose: 0.6 mg Diltiazem HCl (Cardizem Cd -) 240 mg PO DAILY [facility] Last Admin: 01/22/18 09:17 Dose: 240 mg Dorzolamide HCl (Trusopt 2%) 1 drop OU BID [facility] Last Admin: 01/22/18 21:44 Dose: 1 drop Enoxaparin Sodium (Lovenox -) 70 mg SQ BID [facility] Last Admin: 01/22/18 21:39 Dose: 70 mg Furosemide (Lasix -) 40 mg PO DAILY [facility] Last Admin: 01/22/18 09:18 Dose: 40 mg Hydroxychloroquine Sulfate (Plaquenil -) 200 mg PO DAILY [facility] Last Admin: 01/22/18 09:19 Dose: 200 mg Ertapenem 0.5 gm/ Sodium (Chloride) 100 mls @ 200 mls/hr IVPB DAILY [facility] PRN Reason: Protocol Last Admin: 01/22/18 14:38 Dose: 200 mls/hr Insulin Aspart (Novolog Vial Sliding Scale -) 1 vial SQ ACHS [facility] PRN Reason: Protocol Last Admin: 01/22/18 21:40 Dose: Not Given Insulin Detemir (Levemir Vial) 20 units SQ AM [facility] Last Admin: 01/22/18 06:56 Dose: 20 units Latanoprost (Xalatan 0.005% Eye Drops -) 1 drop OU HS [facility] Last Admin: 01/22/18 21:44 Dose: 1 drop Potassium Chloride (K-Dur -) 40 meq PO DAILY [facility] Last Admin: 01/22/18 09:17 Dose: 40 meq Prednisone (Deltasone -) 5 mg PO DAILY [facility] Last Admin: 01/22/18 09:13 Dose: 5 mg Timolol Maleate (Timoptic 0.5%) 1 drop OU BID [facility] Last Admin: 01/22/18 21:44 Dose: 1 drop - Objective Vital Signs: Vital Signs Temperature 98 F 01/22/18 16:30 Pulse Rate 96 H 01/22/18 16:30 Respiratory Rate 18 01/22/18 16:30 Blood Pressure 134/61 01/22/18 16:30 O2 Sat by Pulse Oximetry (%) 100 01/22/18 10:00 Labs: CBC, BMP 01/22/18 07:00 01/16/18 06:48 INR, PTT INR 1.21 (0.82-1.09) H 01/12/18 06:55 Problem List - Problems (1) Anemia Code(s): D64.9 - ANEMIA, UNSPECIFIED (2) DVT (deep venous thrombosis) Code(s): I82.409 - ACUTE EMBOLISM AND THOMBOS UNSP DEEP VN UNSP LOWER EXTREMITY Qualifiers: DVT location: lower extremity Affected thrombotic vein of extremity: popliteal Chronicity: acute Laterality: left Qualified Code(s): I82.432 - Acute embolism and thrombosis of left popliteal vein (3) Hematoma of leg Code(s): S80.10XA - CONTUSION OF UNSPECIFIED LOWER LEG, INITIAL ENCOUNTER Qualifiers: Encounter type: initial encounter Laterality: left Qualified Code(s): S80.12XA - Contusion of left lower leg, initial encounter (4) Anticardiolipin antibody positive Code(s): R76.8 - OTHER SPECIFIED ABNORMAL IMMUNOLOGICAL FINDINGS IN SERUM (5) CHF (congestive heart failure) Code(s): I50.9 - HEART FAILURE, UNSPECIFIED (6) Diabetes Code(s): E11.9 - TYPE 2 DIABETES MELLITUS WITHOUT COMPLICATIONS Qualifiers: Diabetes mellitus type: type 2 (7) HLD (hyperlipidemia) Code(s): E78.5 - HYPERLIPIDEMIA, UNSPECIFIED (8) HTN (hypertension) Code(s): I10 - ESSENTIAL (PRIMARY) HYPERTENSION
[2018-01-23] MEDS: INSULIN SLIDING SCALE (NOVOLOG) 1 VIAL SQ SCH ×4 (06:35→22:43)
[2018-01-23 07:29] LABS: BASO % 0.8 % (0-2.0); EOS % 4.2 % (0-4.5); HEMATOCRIT 28.9 % (32.4-45.2); HEMOGLOBIN 9.4 GM/dL (10.7-15.3); LYMPH % 28.5 % (8-40); MCH 29.7 pg (25.7-33.7); MCHC 32.6 g/dl (32.0-36.0); MEAN CELL VOLUME 90.9 fl (80-96); MEAN PLT VOLUME 7.8 fl (7.5-11.1); MONO % 10.1 % (3.8-10.2); NEUT % 56.4 % (42.8-82.8); PLATELET COUNT 314 K/MM3 (134-434); RBC 3.18 M/mm3 (3.60-5.2); RDW 17.9 % (11.6-15.6); WHITE BLOOD COUNT 5.1 K/mm3 (4.0-10.0)
[2018-01-23] MEDS: INSULIN DETEMIR 100 UNITS/ML MDV SQ SCH (07:35)
[2018-01-23 08:03] LABS: CHLORIDE 106 mmol/L (98-107); POTASSIUM 4.5 mmol/L (3.5-5.1); SODIUM 143 mmol/L (136-145)
[2018-01-23 08:22] LABS: ALBUMIN 2.5 g/dl (3.4-5.0); ALK PHOS 85 U/L (45-117); ANION GAP 11 (8-16); BILIRUBIN,TOTAL 0.4 mg/dL (0.2-1.0); BLOOD UREA NITROGEN 14 mg/dL (7-18); CALCIUM 9.3 mg/dL (8.5-10.1); CO2 26 mmol/L (21-32); GLUCOSE,RANDOM 104 mg/dL (74-106); SGOT/AST 22 U/L (15-37); SGPT/ALT 23 U/L (12-78)
[2018-01-23] MEDS ORDERED: PT OWN MED DRAWER 7, Y5N ONE (10:01)
[2018-01-23] MEDS: CARVEDILOL 25 MG TABLET (FP) PO SCH ×2 (10:05→22:38)
[2018-01-23] MEDS: predniSONE 10 MG TABLET (UD) PO SCH (10:05)
[2018-01-23] MEDS: COLCHICINE 0.6 MG TABLET (FP) PO SCH ×2 (10:05→22:40)
[2018-01-23] MEDS: POTASSIUM CHLORIDE TABS 20 MEQ TABLET.ER (FP) PO SCH (10:06)
[2018-01-23] MEDS: FUROSEMIDE 40 MG TABLET (FP) PO SCH (10:06)
[2018-01-23] MEDS: HYDROXYCHLOROQUINE SO4 200 MG TABLET (FP) PO SCH (10:07)
[2018-01-23] MEDS: ERTAPENEM SODIUM 0.5 GM in SODIUM CHLORIDE 100 ML IVPB SCH (10:07)
[2018-01-23] MEDS: CLOPIDOGREL BISULFATE 75 MG TABLET (FP) PO SCH (10:07)
[2018-01-23] MEDS: DORZOLAMIDE 2% HCL OPHTHALMIC SOLUTION 10 ML BOTTLE OU SCH ×2 (10:08→22:42)
[2018-01-23] MEDS: TIMOLOL 0.5% OPHTHALMIC SOL 5 ML BOTTLE OU SCH ×2 (10:08→22:42)
[2018-01-23] MEDS: ENOXAPARIN NA (PORCINE) 80 MG/0.8 ML DISP.SYRIN SQ SCH ×2 (10:09→22:40)
[2018-01-23] MEDS: LATANOPROST 0.005% OPHTH SOLN 2.5ML BOTTLE OU SCH (22:42)
--- NOTE | 2018-01-23 23:40 | PN ---
Progress Note, Physician History of Present Illness: No new complaints - Current Medication List Current Medications: Active Medications Acetaminophen (Tylenol -) 325 mg PO Q6H PRN PRN Reason: PAIN LEVEL 4 - 6 Last Admin: 01/16/18 12:16 Dose: 325 mg Acetaminophen (Tylenol -) 650 mg PO Q6H PRN PRN Reason: PAIN LEVEL 6-10 Last Admin: 01/22/18 17:09 Dose: 650 mg Carvedilol (Coreg -) 25 mg PO BID [facility] Last Admin: 01/23/18 22:38 Dose: 25 mg Clopidogrel Bisulfate (Plavix -) 75 mg PO DAILY [facility] Last Admin: 01/23/18 10:07 Dose: 75 mg Colchicine (Colcrys -) 0.6 mg PO BID [facility] Last Admin: 01/23/18 22:40 Dose: 0.6 mg Diltiazem HCl (Cardizem Cd -) 240 mg PO DAILY [facility] Last Admin: 01/23/18 10:05 Dose: 240 mg Dorzolamide HCl (Trusopt 2%) 1 drop OU BID [facility] Last Admin: 01/23/18 22:42 Dose: 1 drop Enoxaparin Sodium (Lovenox -) 70 mg SQ BID [facility] Last Admin: 01/23/18 22:40 Dose: 70 mg Furosemide (Lasix -) 40 mg PO DAILY [facility] Last Admin: 01/23/18 10:06 Dose: 40 mg Hydroxychloroquine Sulfate (Plaquenil -) 200 mg PO DAILY [facility] Last Admin: 01/23/18 10:07 Dose: 200 mg Ertapenem 0.5 gm/ Sodium (Chloride) 100 mls @ 200 mls/hr IVPB DAILY [facility] PRN Reason: Protocol Last Admin: 01/23/18 10:07 Dose: 200 mls/hr Insulin Aspart (Novolog Vial Sliding Scale -) 1 vial SQ ACHS [facility] PRN Reason: Protocol Last Admin: 01/23/18 22:43 Dose: Not Given Insulin Detemir (Levemir Vial) 20 units SQ AM [facility] Last Admin: 01/23/18 07:35 Dose: 20 units Latanoprost (Xalatan 0.005% Eye Drops -) 1 drop OU HS [facility] Last Admin: 01/23/18 22:42 Dose: 1 drop Potassium Chloride (K-Dur -) 40 meq PO DAILY [facility] Last Admin: 01/23/18 10:06 Dose: 40 meq Prednisone (Deltasone -) 5 mg PO DAILY [facility] Last Admin: 01/23/18 10:05 Dose: 5 mg Timolol Maleate (Timoptic 0.5%) 1 drop OU BID [facility] Last Admin: 01/23/18 22:42 Dose: 1 drop - Objective Vital Signs: Vital Signs Temperature 98.3 F 01/23/18 16:30 Pulse Rate 60 01/23/18 16:30 Respiratory Rate 20 01/23/18 16:30 Blood Pressure 151/61 01/23/18 16:30 O2 Sat by Pulse Oximetry (%) 100 01/22/18 22:00 Cardiovascular: Yes: WNL Respiratory: Yes: WNL, Regular, CTA Bilaterally Gastrointestinal: Yes: WNL, Normal Bowel Sounds, Soft Labs: CBC, BMP 01/23/18 06:08 01/23/18 06:08 INR, PTT INR 1.21 (0.82-1.09) H 01/12/18 06:55 Problem List - Problems (1) UTI (urinary tract infection) Assessment/Plan: Cont IV antibx Urine culture (+) ESBL Code(s): N39.0 - URINARY TRACT INFECTION, SITE NOT SPECIFIED (2) Hematoma of leg Assessment/Plan: Cont to monitor Improving Pt was ruled out for compartment syndrome by vasc/surgeon Leg elevation Code(s): S80.10XA - CONTUSION OF UNSPECIFIED LOWER LEG, INITIAL ENCOUNTER Qualifiers: Encounter type: initial encounter Laterality: left Qualified Code(s): S80.12XA - Contusion of left lower leg, initial encounter (3) Anemia Assessment/Plan: H/H stable Code(s): D64.9 - ANEMIA, UNSPECIFIED (4) DVT (deep venous thrombosis) Code(s): I82.409 - ACUTE EMBOLISM AND THOMBOS UNSP DEEP VN UNSP LOWER EXTREMITY Qualifiers: DVT location: lower extremity Affected thrombotic vein of extremity: popliteal Chronicity: acute Laterality: left Qualified Code(s): I82.432 - Acute embolism and thrombosis of left popliteal vein (5) Anticardiolipin antibody positive Code(s): R76.8 - OTHER SPECIFIED ABNORMAL IMMUNOLOGICAL FINDINGS IN SERUM (6) CHF (congestive heart failure) Code(s): I50.9 - HEART FAILURE, UNSPECIFIED (7) Diabetes Code(s): E11.9 - TYPE 2 DIABETES MELLITUS WITHOUT COMPLICATIONS Qualifiers: Diabetes mellitus type: type 2 (8) HLD (hyperlipidemia) Code(s): E78.5 - HYPERLIPIDEMIA, UNSPECIFIED (9) HTN (hypertension) Code(s): I10 - ESSENTIAL (PRIMARY) HYPERTENSION
--- NOTE | 2018-01-24 04:30 | PN ---
Progress Note, Physician Chief Complaint: Pt A&Ox3; lying in bed; no pain or numbness of left LE; no chest pain or dyspnea. History of Present Illness: 72-year-old woman with left lower extremity DVT complaining and hematoma complaining of worsening swelling and pain to the left lower extremity. Patient with extensive admission in the hospital at [facility] and has been inpatient at [facility]. Patient was discharged to home on 01/10/2018. As per daughter patient did extensive walking with the walker at home and seemed has worsened hematoma to the left lower extremity. Patient has a past medical history of PAF on Coumadin; CVA, hypertension, renal artery stenosis-->left renal artery stent; coronary artery disease, anticardiolipin AB+, pericardial effusion, diabetes - Current Medication List Current Medications: Active Medications Acetaminophen (Tylenol -) 325 mg PO Q6H PRN PRN Reason: PAIN LEVEL 4 - 6 Last Admin: 01/16/18 12:16 Dose: 325 mg Acetaminophen (Tylenol -) 650 mg PO Q6H PRN PRN Reason: PAIN LEVEL 6-10 Last Admin: 01/22/18 17:09 Dose: 650 mg Carvedilol (Coreg -) 25 mg PO BID [facility] Last Admin: 01/23/18 22:38 Dose: 25 mg Clopidogrel Bisulfate (Plavix -) 75 mg PO DAILY [facility] Last Admin: 01/23/18 10:07 Dose: 75 mg Colchicine (Colcrys -) 0.6 mg PO BID [facility] Last Admin: 01/23/18 22:40 Dose: 0.6 mg Diltiazem HCl (Cardizem Cd -) 240 mg PO DAILY [facility] Last Admin: 01/23/18 10:05 Dose: 240 mg Dorzolamide HCl (Trusopt 2%) 1 drop OU BID [facility] Last Admin: 01/23/18 22:42 Dose: 1 drop Enoxaparin Sodium (Lovenox -) 70 mg SQ BID [facility] Last Admin: 01/23/18 22:40 Dose: 70 mg Furosemide (Lasix -) 40 mg PO DAILY [facility] Last Admin: 01/23/18 10:06 Dose: 40 mg Hydroxychloroquine Sulfate (Plaquenil -) 200 mg PO DAILY [facility] Last Admin: 01/23/18 10:07 Dose: 200 mg Ertapenem 0.5 gm/ Sodium (Chloride) 100 mls @ 200 mls/hr IVPB DAILY [facility] PRN Reason: Protocol Last Admin: 01/23/18 10:07 Dose: 200 mls/hr Insulin Aspart (Novolog Vial Sliding Scale -) 1 vial SQ ACHS [facility] PRN Reason: Protocol Last Admin: 01/23/18 22:43 Dose: Not Given Insulin Detemir (Levemir Vial) 20 units SQ AM [facility] Last Admin: 01/23/18 07:35 Dose: 20 units Latanoprost (Xalatan 0.005% Eye Drops -) 1 drop OU HS [facility] Last Admin: 01/23/18 22:42 Dose: 1 drop Potassium Chloride (K-Dur -) 40 meq PO DAILY [facility] Last Admin: 01/23/18 10:06 Dose: 40 meq Prednisone (Deltasone -) 5 mg PO DAILY [facility] Last Admin: 01/23/18 10:05 Dose: 5 mg Timolol Maleate (Timoptic 0.5%) 1 drop OU BID [facility] Last Admin: 01/23/18 22:42 Dose: 1 drop - Objective Vital Signs: Vital Signs Temperature 98.3 F 01/23/18 22:00 Pulse Rate 64 01/23/18 22:00 Respiratory Rate 20 01/23/18 22:00 Blood Pressure 148/62 01/23/18 22:00 O2 Sat by Pulse Oximetry (%) 100 01/23/18 22:00 Constitutional: Yes: Calm Eyes: Yes: WNL HENT: Yes: WNL Neck: Yes: WNL Cardiovascular: Yes: WNL Respiratory: Yes: WNL Gastrointestinal: Yes: Soft ...Rectal Exam: Yes: Deferred Genitourinary: No: Anuria Breast(s): Yes: WNL Musculoskeletal: Yes: Muscle Weakness Extremities: Yes: Cool Edema: No Peripheral Pulses WNL: No Peripheral Pulses: Left Doralis Pedis: 1+ Integumentary: Yes: Other Neurological: Yes: Alert, Oriented, Weakness Psychiatric: Yes: WNL Labs: CBC, BMP 01/23/18 06:08 01/23/18 06:08 INR, PTT INR 1.21 (0.82-1.09) H 01/12/18 06:55 Problem List - Problems (1) Hematoma of leg Code(s): S80.10XA - CONTUSION OF UNSPECIFIED LOWER LEG, INITIAL ENCOUNTER Qualifiers: Encounter type: initial encounter Laterality: left Qualified Code(s): S80.12XA - Contusion of left lower leg, initial encounter (2) Afib Assessment/Plan: On carvedilol and diltiazem. On Lovenox (DVT; AF). Code(s): I48.91 - UNSPECIFIED ATRIAL FIBRILLATION Qualifiers: Atrial fibrillation type: paroxysmal Qualified Code(s): I48.0 - Paroxysmal atrial fibrillation (3) Anticardiolipin antibody positive Code(s): R76.8 - OTHER SPECIFIED ABNORMAL IMMUNOLOGICAL FINDINGS IN SERUM (4) Diabetes Code(s): E11.9 - TYPE 2 DIABETES MELLITUS WITHOUT COMPLICATIONS Qualifiers: Diabetes mellitus type: type 2 (5) HLD (hyperlipidemia) Assessment/Plan: LDL 106 mg/dL in 2010; repeat lipid panel (given risk factors, would start statin). Code(s): E78.5 - HYPERLIPIDEMIA, UNSPECIFIED (6) HTN (hypertension) Assessment/Plan: on carvedilol and diltiazem. Start ACEI (HTN; DM). Code(s): I10 - ESSENTIAL (PRIMARY) HYPERTENSION (7) Antiphospholipid antibody syndrome Code(s): D68.61 - ANTIPHOSPHOLIPID SYNDROME (8) DVT (deep venous thrombosis) Assessment/Plan: Recent DVT; now with LLE hematoma after felt her leg "twist" while using walker at home. On Lovenox 1 mg/Kg BW bid pending decision on PO agent. Code(s): I82.409 - ACUTE EMBOLISM AND THOMBOS UNSP DEEP VN UNSP LOWER EXTREMITY Qualifiers: DVT location: lower extremity Affected thrombotic vein of extremity: popliteal Chronicity: acute Laterality: left Qualified Code(s): I82.432 - Acute embolism and thrombosis of left popliteal vein (9) Pericardial effusion Assessment/Plan: by hx; none noted in late December ECHO. Code(s): I31.3 - PERICARDIAL EFFUSION (NONINFLAMMATORY)
[2018-01-24] MEDS: INSULIN SLIDING SCALE (NOVOLOG) 1 VIAL SQ SCH ×3 (06:06→18:37)
[2018-01-24] MEDS: INSULIN DETEMIR 100 UNITS/ML MDV SQ SCH (06:22)
[2018-01-24] MEDS: CLOPIDOGREL BISULFATE 75 MG TABLET (FP) PO SCH (10:38)
[2018-01-24] MEDS: FUROSEMIDE 40 MG TABLET (FP) PO SCH (10:38)
[2018-01-24] MEDS: ENOXAPARIN NA (PORCINE) 80 MG/0.8 ML DISP.SYRIN SQ SCH (10:38)
[2018-01-24] MEDS: ACETAMINOPHEN 325 MG TABLET (FP) PO PRN (10:38)
[2018-01-24] MEDS: COLCHICINE 0.6 MG TABLET (FP) PO SCH (10:39)
[2018-01-24] MEDS: CARVEDILOL 25 MG TABLET (FP) PO SCH (10:39)
[2018-01-24] MEDS: predniSONE 10 MG TABLET (UD) PO SCH (10:40)
[2018-01-24] MEDS: POTASSIUM CHLORIDE TABS 20 MEQ TABLET.ER (FP) PO SCH (10:40)
[2018-01-24] MEDS: HYDROXYCHLOROQUINE SO4 200 MG TABLET (FP) PO SCH (10:45)
[2018-01-24] MEDS: DORZOLAMIDE 2% HCL OPHTHALMIC SOLUTION 10 ML BOTTLE OU SCH (10:46)
[2018-01-24] MEDS: TIMOLOL 0.5% OPHTHALMIC SOL 5 ML BOTTLE OU SCH (10:47)
[2018-01-24] MEDS: ERTAPENEM SODIUM 0.5 GM in SODIUM CHLORIDE 100 ML IVPB SCH (10:55)
[2018-01-24 13:21] VITALS: TEMP 97.8
--- NOTE | 2018-01-24 15:40 | PN ---
Progress Note, Physician History of Present Illness: seen and examined. ambulating with PT in the room, able to bear weight on LLE. feeling better. no new complaints. - Current Medication List Current Medications: Active Medications Acetaminophen (Tylenol -) 325 mg PO Q6H PRN PRN Reason: PAIN LEVEL 4 - 6 Last Admin: 01/24/18 10:38 Dose: 325 mg Acetaminophen (Tylenol -) 650 mg PO Q6H PRN PRN Reason: PAIN LEVEL 6-10 Last Admin: 01/22/18 17:09 Dose: 650 mg Carvedilol (Coreg -) 25 mg PO BID [facility] Last Admin: 01/24/18 10:39 Dose: 25 mg Clopidogrel Bisulfate (Plavix -) 75 mg PO DAILY [facility] Last Admin: 01/24/18 10:38 Dose: 75 mg Colchicine (Colcrys -) 0.6 mg PO BID [facility] Last Admin: 01/24/18 10:39 Dose: 0.6 mg Diltiazem HCl (Cardizem Cd -) 240 mg PO DAILY [facility] Last Admin: 01/24/18 10:38 Dose: 240 mg Dorzolamide HCl (Trusopt 2%) 1 drop OU BID [facility] Last Admin: 01/24/18 10:46 Dose: 1 drop Enoxaparin Sodium (Lovenox -) 70 mg SQ BID [facility] Last Admin: 01/24/18 10:38 Dose: 70 mg Furosemide (Lasix -) 40 mg PO DAILY [facility] Last Admin: 01/24/18 10:38 Dose: 40 mg Hydroxychloroquine Sulfate (Plaquenil -) 200 mg PO DAILY [facility] Last Admin: 01/24/18 10:45 Dose: 200 mg Insulin Aspart (Novolog Vial Sliding Scale -) 1 vial SQ ACHS [facility] PRN Reason: Protocol Last Admin: 01/24/18 12:32 Dose: 2 units Insulin Detemir (Levemir Vial) 20 units SQ AM [facility] Last Admin: 01/24/18 06:22 Dose: 20 units Latanoprost (Xalatan 0.005% Eye Drops -) 1 drop OU HS [facility] Last Admin: 01/23/18 22:42 Dose: 1 drop Potassium Chloride (K-Dur -) 40 meq PO DAILY [facility] Last Admin: 01/24/18 10:40 Dose: 40 meq Prednisone (Deltasone -) 5 mg PO DAILY [facility] Last Admin: 01/24/18 10:40 Dose: 5 mg Timolol Maleate (Timoptic 0.5%) 1 drop OU BID [facility] Last Admin: 01/24/18 10:47 Dose: 1 drop - Objective Vital Signs: Vital Signs Temperature 97.8 F 01/24/18 14:53 Pulse Rate 66 01/24/18 14:53 Respiratory Rate 20 01/24/18 14:53 Blood Pressure 135/58 01/24/18 14:53 O2 Sat by Pulse Oximetry (%) 100 01/23/18 22:00 Constitutional: Yes: No Distress, Calm Eyes: Yes: Conjunctiva Clear, EOM Intact HENT: Yes: Atraumatic, Normocephalic Neck: Yes: Supple, Trachea Midline Cardiovascular: Yes: Regular Rate and Rhythm, Murmur, S1, S2. No: Bradycardia, Tachycardia, Pulse Irregular, Bruit, JVD, Gallop, Rub, S3, S4, Varicosities Respiratory: Yes: Regular, CTA Bilaterally. No: Rales, Rhonchi, Wheezes Gastrointestinal: Yes: Normal Bowel Sounds, Soft. No: Distention, Tenderness Musculoskeletal: Yes: WNL Edema: LLE: Trace Peripheral Pulses WNL: Yes Integumentary: Yes: Bruising Neurological: Yes: Alert, Oriented Psychiatric: Yes: Alert, Oriented Labs: CBC, BMP 01/23/18 06:08 01/23/18 06:08 INR, PTT INR 1.21 (0.82-1.09) H 01/12/18 06:55 - ....Imaging Chest X-ray: Report Reviewed, Image Reviewed EKG: Report Reviewed, Image Reviewed Other: Report Reviewed, Image Reviewed Assessment/Plan IMP: Anticardiolipin Ab + Suspected connective tissue disorder with markedly + MEGHANN Acute DVT while on Coumadin with fluctuating INRs Bilateral PNA (post-influenza), resolved PAF s/p PPM, prior CVA hematoma left lower extremity, overall improved from admission REC: Recent LLE DVT Recurrent hematoma LLE Hypercoagulable thus high risk to stop AC H/H has been stable LLE edema and pain significantly improved since admission Cont Lovenox Physical therapy, mobilization. tx with ABx for UTI Discharge planning to rehab in progress
[2018-01-24 18:08] VITALS: BP 120/61; PULSE 60
--- NOTE | 2018-01-27 12:14 | DS ---
Physical Examination Vital Signs: Vital Signs Temperature 97.8 F 01/24/18 16:30 Pulse Rate 60 01/24/18 16:30 Respiratory Rate 20 01/24/18 16:30 Blood Pressure 120/61 01/24/18 16:30 O2 Sat by Pulse Oximetry (%) 100 01/24/18 10:00 Labs: CBC, BMP 01/23/18 06:08 01/23/18 06:08 Discharge Summary Reason For Visit: HEMATOMA OF LOWER EXTREMETIES Condition: Good - Instructions Diet, Activity, Other Instructions: 2 gram sodium and 2200 calorie ADA diet Activity as tolerated May take shower Keep the legs elevated Lovenox as prescribed Isolation precautions ECOLI/ESBL Referrals: Demar Storey MD [Staff Physician] - Amy Nuñez MD [Staff Physician] - Sony Johnson MD [Primary Care Provider] - Disposition: SNF FACILITY - Home Medications Comprehensive Discharge Medication List: Ambulatory Orders Clopidogrel Bisulfate [Plavix -] 75 mg PO DAILY 10/09/17 Diltiazem HCl [Diltiazem 24Hr Cd] 240 mg PO DAILY 10/09/17 Carvedilol [Coreg -] 25 mg PO BID tablet 12/13/17 Dorzolamide HCl [Trusopt 2% -] 1 drop OU BID drops 12/13/17 Latanoprost 0.005% Eye Drops [Xalatan 0.005% Eye Drops -] 1 drop OU HS drops Timolol 0.5% [Timoptic 0.5%] 1 drop OU BID drops 12/13/17 Colchicine [Colcrys -] 0.6 mg PO BID tablet 01/05/18 Enoxaparin [Lovenox -] 70 mg SQ BID disp.syrin 01/05/18 Furosemide [Lasix -] 40 mg PO DAILY tablet 01/05/18 Hydroxychloroquine So4 [Plaquenil -] 200 mg PO DAILY tablet 01/05/18 Insulin (Levemir) [Levemir Vial] 20 units SQ AM ml 01/05/18 Potassium Chloride [K-Dur -] 40 meq PO DAILY tablet.er 01/05/18 predniSONE [Deltasone -] 20 mg PO DAILY tablet 01/05/18 Alprazolam [Xanax] 0.5 mg PO HS PRN MDD 2 TABS 01/11/18 Insulin Sliding Scale [Novolog Vial Sliding Scale -] 0 units SQ ACHS PRN Enoxaparin [Lovenox -] 70 mg SQ BID disp.syrin 01/24/18 Insulin Sliding Scale [Novolog Vial Sliding Scale -] 1 vial SQ ACHS units 01/24
== END 2018-01-24 18:49 | DRG 546 ==
LOC: JER 04:16 → JERBED 10:05 → J8W 11:39
PROVIDERS: ADMIT Internal Medicine; ATTEND Internal Medicine
PROC: 30233N1 Transfusion of Nonautologous Red Blood Cells into Peripheral Vein, Percutaneous Approach (ICD-10-PCS; principal; 2018-01-13)
DX: M32.9 Systemic lupus erythematosus, unspecified (principal); D68.61 Antiphospholipid syndrome; M62.82 Rhabdomyolysis; I69.351 Hemiplegia and hemiparesis following cerebral infarction affecting right dominant side; N39.0 Urinary tract infection, site not specified; R71.0 Precipitous drop in hematocrit; D68.9 Coagulation defect, unspecified; D62 Acute posthemorrhagic anemia; I82.532 Chronic embolism and thrombosis of left popliteal vein; L94.9 Localized connective tissue disorder, unspecified; R53.1 Weakness; E78.5 Hyperlipidemia, unspecified; E11.9 Type 2 diabetes mellitus without complications; R76.8 Other specified abnormal immunological findings in serum; I48.91 Unspecified atrial fibrillation; I25.10 Atherosclerotic heart disease of native coronary artery without angina pectoris; I44.7 Left bundle-branch block, unspecified; S80.12XA Contusion of left lower leg, initial encounter; I70.1 Atherosclerosis of renal artery; I11.0 Hypertensive heart disease with heart failure; B96.20 Unspecified Escherichia coli [E. coli] as the cause of diseases classified elsewhere; Z92.89 Personal history of other medical treatment; Z86.73 Personal history of transient ischemic attack (TIA), and cerebral infarction without residual deficits; Z86.718 Personal history of other venous thrombosis and embolism; Z95.0 Presence of cardiac pacemaker; Z88.0 Allergy status to penicillin; X58.XXXA Exposure to other specified factors, initial encounter; Y93.89 Activity, other specified; Y92.89 Other specified places as the place of occurrence of the external cause
CPT/HCPCS: 36415; 36430; 73700-TC-RT; 80053; 81003; 81015; 82180; 82272; 82550; 82553; 82962; 85025; 85027; 85610; 85730; 86850; 86900; 86901; 86922; 87086; 87186; 93005; 93010; 93971-TC; 97116-GP; 97162-GP; 99285-25; J7030; P9038; P9058

== ENCOUNTER 2018-01-29 09:11 | Inpatient (IN) | payer OTHER ==
--- NOTE | 2018-01-29 09:20 | PDOC ---
History of Present Illness <Camila Daley - Last Filed: 01/29/18 12:18> - General History Source: Patient, EMS, Family - History of Present Illness Initial Comments: 01/29/18 10:24 72 y/o female who is currently in a group home around 7:20am she needed to go to the bathroom. PT was worried about urinating on her self and went to the bathroom unassisted. Pt says she turned and fell. She used her left hand to try and brace her fall, and now has left hand and wrist pain. She twisted fell backwards and hit the rt side of her head. PT denies chest pain, palpitations or dizziness, no lOC, staff at group home responded immediately as per patient. Pt now c/o left wrist and hand pain, lower abdominal discomfort and lower back pain. Timing/Duration: 1 hour, 1-3 hours Severity: moderate Associated Symptoms: denies: chest pain, nausea/vomiting, shortness of breath Asa Contraindications(Core Measure): Yes: Plavix (pt on lovenox and plaxvix as per family) <Summer Rosales - Last Filed: 01/29/18 15:43> - General Chief Complaint: Injury Stated Complaint: FALL Time Seen by Provider: 01/29/18 09:19 Past History <Camila Daley - Last Filed: 01/29/18 12:18> - Past Medical History Anemia: No Cardiac Disorders: Yes (PACEMAKER, AAA 5CM, AFIB, PERICARDITIS, PERICARDIAL EFFUSION) CVA: Yes (RIGHT ARM AND LEG WEAKNESS RESIDUAL) CHF: Yes DVT: No Diabetes: Yes (IDDM) 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) GI Disorders: Yes (constipation, GERD) HTN: Yes Hypercholesterolemia: Yes - Surgical History Cardiac Surgery: Yes (PACEMAKER (2010) ; cath 09/24) - Immunization History Immunization Up to Date: Yes - Suicide/Smoking/Psychosocial Hx Smoking History: Unknown if ever smoked Have you smoked in the past 12 months: No Number of Cigarettes Smoked Daily: 5 If you are a former smoker, when did you quit?: 1993 Hx Alcohol Use: No Drug/Substance Use Hx: No Substance Use Type: None Hx Substance Use Treatment: No <Summer Rosales - Last Filed: 01/29/18 15:43> - Past Medical History Allergies/Adverse Reactions: Allergies Allergy/AdvReac Type Severity Reaction Status Date / Time aspirin Allergy Severe Verified 01/11/18 04:26 Penicillins Allergy Severe Verified 01/11/18 04:26 peanut Allergy Unknown Verified 01/19/18 12:17 diclofenac Allergy Verified 01/11/18 04:26 shellfish derived Allergy Verified 01/11/18 04:26 lactose AdvReac Verified 01/11/18 04:26 peanut Allergy Unknown Rash Uncoded 01/19/18 12:57 iv contrast Allergy Uncoded 01/11/18 04:26 Home Medications: Ambulatory Orders Clopidogrel Bisulfate [Plavix -] 75 mg PO DAILY 10/09/17 Diltiazem HCl [Diltiazem 24Hr Cd] 240 mg PO DAILY 10/09/17 Carvedilol [Coreg -] 25 mg PO BID tablet 12/13/17 Dorzolamide HCl [Trusopt 2% -] 1 drop OU BID drops 12/13/17 Latanoprost 0.005% Eye Drops [Xalatan 0.005% Eye Drops -] 1 drop OU HS drops Timolol 0.5% [Timoptic 0.5%] 1 drop OU BID drops 12/13/17 Colchicine [Colcrys -] 0.6 mg PO BID tablet 01/05/18 Furosemide [Lasix -] 40 mg PO DAILY tablet 01/05/18 Hydroxychloroquine So4 [Plaquenil -] 200 mg PO DAILY tablet 01/05/18 Insulin (Levemir) [Levemir Vial] 20 units SQ AM ml 01/05/18 Potassium Chloride [K-Dur -] 40 meq PO DAILY tablet.er 01/05/18 predniSONE [Deltasone -] 20 mg PO DAILY tablet 01/05/18 Alprazolam [Xanax] 0.5 mg PO HS PRN MDD 2 TABS 01/11/18 Insulin Sliding Scale [Novolog Vial Sliding Scale -] 0 units SQ ACHS PRN Enoxaparin [Lovenox -] 70 mg SQ BID disp.syrin 01/24/18 Insulin Sliding Scale [Novolog Vial Sliding Scale -] 1 vial SQ ACHS units 01/24 *Physical Exam - Vital Signs Last Vital Signs Temp Pulse Resp BP Pulse Ox 97.8 F 63 16 171/58 97 01/29/18 09:34 01/29/18 09:34 01/29/18 09:34 01/29/18 09:34 01/29/18 09:34 <Camila Daley - Last Filed: 01/29/18 12:18> - Vital Signs 01/29/18 10:32 Pt is non toxic appearing received lying in bed, pt c/o cervical discomfort upon palpitation of cervical spine so cervical collar placed - Physical Exam General Appearance: Yes: Nourished, Mild Distress HEENT: positive: JACKELYN, Normal Voice, TMs Normal, Pharynx Normal Neck: positive: Tender (cervical collar placed) Respiratory/Chest: positive: Lungs Clear, Normal Breath Sounds. negative: Respiratory Distress Cardiovascular: positive: Regular Rhythm, Regular Rate Vascular Pulses: Dorsalis-Pedis (R): 2+, Doralis-Pedis (L): 2+ Gastrointestinal/Abdominal: positive: Normal Bowel Sounds, Soft, Tenderness. negative: Guarding, Rebound Musculoskeletal: positive: Normal Inspection Extremity: positive: Normal Capillary Refill, Normal Range of Motion (left wrist discomfort, nl pulses no deformity but has pain with rom), Other (left wrist deformity but with nl pulses) Neurologic: positive: Fully Oriented, Alert, Normal Mood/Affect, Normal Response , Motor Strength 5/5. negative: Numbness <Summer Rosales - Last Filed: 01/29/18 15:43> Heart Score/ECG Review - History History: Slightly suspicious - Electrocardiogram EKG: Non specific repolarization disturbance - Age Age: >/= 65 - Risk Factors Risk Factors Heart Score: Yes Hx Hypercholesterolemia, Yes Hx Hypertension, Yes Hx Diabetes Based on the list above the patient has:: >/=3 risk factors or Hx atherosclerotic disease - ECG Intrepretation Rhythm: Regular Rhythm (nsr at 63 poor r wave progression no significant change from -04-25) <Summer Rosales - Last Filed: 01/29/18 15:43> ED Treatment Course - LABORATORY CBC & Chemistry Diagram: 01/29/18 09:50 01/29/18 09:50 - ADDITIONAL ORDERS Additional order review: Laboratory Results 01/29/18 01/29/18 01/29/18 09:50 09:50 09:50 PT with INR 12.80 H INR 1.13 Sodium 143 Potassium 5.1 Chloride 108 H Carbon Dioxide 24 Anion Gap 11 BUN 19 H Creatinine 1.1 H Creat Clearance w eGFR 48.69 Random Glucose 107 H Calcium 9.2 Total Bilirubin 0.7 D AST 81 H ALT 60 Alkaline Phosphatase 86 Troponin I < 0.02 Total Protein 6.5 Albumin 2.7 L Urine Color Ltyellow Urine Appearance Cloudy Urine pH 6.0 Ur Specific [place] 1.010 Urine Protein 1+ H Urine Glucose (UA) Negative Urine Ketones Negative Urine Blood 2+ H Urine Nitrite Negative Urine Bilirubin Negative Urine Urobilinogen Negative Ur Leukocyte Esterase 3+ H Urine WBC (Auto) 319 Urine RBC (Auto) 39 Ur Epithelial Cells Rare Urine Bacteria Rare Urine Mucus Rare 01/29/18 09:50 RBC 3.41 L MCV 90.1 MCHC 32.5 RDW 17.5 H MPV 7.9 Neutrophils % 68.7 D Lymphocytes % 20.1 D Monocytes % 7.9 Eosinophils % 2.8 Basophils % 0.5 - Medications Given in the ED: ED Medications Discontinued Medications Generic Name Dose Route Start Last Admin Trade Name Freq PRN Reason Stop Dose Admin Acetaminophen 1,000 mg 01/29/18 10:38 01/29/18 10:57 Ofirmev Injection - IVPB 01/29/18 10:39 1,000 mg ONCE ONE Administration Levofloxacin 500 mg in 100 mls @ 100 mls/hr 01/29/18 10:47 01/29/18 11:17 Levaquin 500 Mg Premixed Ivpb - IVPB 01/29/18 11:46 100 mls/hr ONCE ONE Administration <Camila Daley - Last Filed: 01/29/18 12:18> - LABORATORY CBC & Chemistry Diagram: 01/29/18 09:50 01/29/18 09:50 <Summer Rosales - Last Filed: 01/29/18 15:43> Medical Decision Making - Medical Decision Making 01/29/18 11:[address] Goddard via phone answering service. 01/29/18 12:[address] Goddard via phone answering service. Discussed patient's case. Will admit 01/29/18 12:[address] Trent via phone answering service. <Camila Daley - Last Filed: 01/29/18 12:18> - Medical Decision Making 01/29/18 10:35 72 y/o female s/p fall no loc, no nausea and vomiting, no headache but has slight rt parietal occipital hematoma on physical exam will obtain ct of head and cervical spine, cxr, left wrist deformity will obtain xray of hand and wrist , l/s spine xray, and reevaluate. Will order IV tylenol for pain at present Pt's labs and xray noted, pt with distal radial fracture wrist splint applied, pt with uti ,previous ua cx noted and ecoli esbl resistant to many antibiotics sensitive tp eropenem, will start, case diascussed with Dr. Oglesby will admit and obtain ID consult with Dr Trent, case discussed with Dr Moon will come and evaluate pt, pt feeling better after mso4 given for pain, PT agrees to admisison , pt stable at this time. 01/29/18 10:38 01/29/18 15:37 <Summer Rosales - Last Filed: 01/29/18 15:43> *DC/Admit/Observation/Transfer <Camila Daley - Last Filed: 01/29/18 12:18> - Discharge Dispostion Admit: Yes <Summer Rosales - Last Filed: 01/29/18 15:43> Diagnosis at time of Disposition: UTI (urinary tract infection), Distal radial fracture, Head injury - Discharge Dispostion Condition at time of disposition: Stable
[2018-01-29 10:12] LABS: BASO % 0.5 % (0-2.0); EOS % 2.8 % (0-4.5); HEMATOCRIT 30.7 % (32.4-45.2); LYMPH % 20.1 % (8-40); MCH 29.3 pg (25.7-33.7); MCHC 32.5 g/dl (32.0-36.0); MEAN CELL VOLUME 90.1 fl (80-96); MEAN PLT VOLUME 7.9 fl (7.5-11.1); MONO % 7.9 % (3.8-10.2); NEUT % 68.7 % (42.8-82.8); PLATELET COUNT 325 K/MM3 (134-434); RBC 3.41 M/mm3 (3.60-5.2); RDW 17.5 % (11.6-15.6); WHITE BLOOD COUNT 5.7 K/mm3 (4.0-10.0)
[2018-01-29 10:14] LABS: URINE APPEARANCE CLOUDY; URINE BILIRUBIN NEGATIVE (<2.0 mg/dL); URINE BLOOD 2+ (NEGATIVE); URINE COLOR LTYELLOW; URINE GLUCOSE (UA) NEGATIVE (NEGATIVE); URINE KETONE NEGATIVE (NEGATIVE); URINE NITRITE NEGATIVE (NEGATIVE); URINE UROBILINOGEN NEGATIVE mg/dL (0.2-1.0)
[2018-01-29 10:15] LABS: URINE LEUK ESTERASE 3+ (NEGATIVE); URINE PROTEIN 1+ (NEGATIVE)
[2018-01-29 10:19] LABS: EPI CELLS RARE /HPF (FEW); URINE BACTERIA RARE /hpf (NONE SEEN); URINE MUCUS RARE
[2018-01-29 10:29] LABS: INR 1.13 (0.82-1.09); PROTHROMBIN TIME (PATIENT) 12.8 SEC (9.98-11.88)
[2018-01-29] MEDS ORDERED: ACETAMINOPHEN 1000 MG/100 ML VIAL (NON FORMULARY) IVPB ONE (10:38)
[2018-01-29 10:44] LABS: ALBUMIN 2.7 g/dl (3.4-5.0); ANION GAP 11 (8-16); BILIRUBIN,TOTAL 0.7 mg/dL (0.2-1.0); BLOOD UREA NITROGEN 19 mg/dL (7-18); CALCIUM 9.2 mg/dL (8.5-10.1); CHLORIDE 108 mmol/L (98-107); CO2 24 mmol/L (21-32); CREATININE 1.1 mg/dL (0.55-1.02); GLUCOSE,RANDOM 107 mg/dL (74-106); SGPT/ALT 60 U/L (12-78); SODIUM 143 mmol/L (136-145); TOT PROT 6.5 g/dl (6.4-8.2)
[2018-01-29 10:46] LABS: ALK PHOS 86 U/L (45-117)
[2018-01-29 10:48] LABS: POTASSIUM 5.1 mmol/L (3.5-5.1)
[2018-01-29 10:49] LABS: SGOT/AST 81 U/L (15-37)
[2018-01-29] MEDS ORDERED: ACETAMINOPHEN INJECTION 100 ML IVPB ONE (11:05)
[2018-01-29] MEDS ORDERED: ERTAPENEM SODIUM 1 GM in SODIUM CHLORIDE 50 ML IVPB ONE (12:25)
[2018-01-29] MEDS ORDERED: morphine CARPU-JECT 4 MG/1 ML DISP.SYRIN IVPUSH ONE (12:27)
[2018-01-29] MEDS ORDERED: LORazepam 0.5 MG TABLET PO ONE (12:30)
[2018-01-29] MEDS ORDERED: LORazepam 0.5 MG TABLET ONE (12:37)
[2018-01-29] MEDS ORDERED: morphine SULFATE 4 MG/ML VIAL ONE (12:37)
--- NOTE | 2018-01-29 13:42 | CON.ID ---
Consult Consult Specialty:: infectious diseases Referred by:: Reason for Consultation:: fall,uti complicated - History of Present Illness Chief Complaint: fall weakness History of Present Illness: 72 y/o female w/ PMH significant for HTN, paroxsymal afib, CHF, pericardial effusion/pericarditis, diabetes, CVA, YAQUELIN, DVT(s/p hematoma LLE). Pt also was recently treated for ESBL w/ IV antibxs and was dc'ed to a SNF. Pt now sent from SNF due to a fall after trying to go to the bathroom. Pt says she turned and fell. She used her left hand to try and brace her fall and now has left hand and wrist pain. She twisted fell backwards and hit the rt side of her head. P. XRAY of her lt upper extremity showed lt distal radial fx. 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: CVA Cardio/Vascular: Yes: AFIB, HTN, Hyperlipdemia, Other (pericarditis Pericardial effusion) Renal/: Yes: Other (Renal artery stenosis) Endocrine: Yes: Diabetes Mellitus - Past Surgical History Past Surgical History: Yes: Permanent Pacemaker - Alcohol/Substance Use Hx Alcohol Use: No - Smoking History Smoking history: Unknown if ever smoked Have you smoked in the past 12 months: No Aproximately how many cigarettes per day: 5 If you are a former smoker, when did you quit?: 1993 - Social History ADL: Family Assistance History of Recent Travel: No Home Medications - Allergies Allergies/Adverse Reactions: Allergies Allergy/AdvReac Type Severity Reaction Status Date / Time aspirin Allergy Severe Verified 01/11/18 04:26 Penicillins Allergy Severe Verified 01/11/18 04:26 peanut Allergy Unknown Verified 01/19/18 12:17 diclofenac Allergy Verified 01/11/18 04:26 shellfish derived Allergy Verified 01/11/18 04:26 lactose AdvReac Verified 01/11/18 04:26 peanut Allergy Unknown Rash Uncoded 01/19/18 12:57 iv contrast Allergy Uncoded 01/11/18 04:26 - Home Medications Home Medications: Ambulatory Orders Clopidogrel Bisulfate [Plavix -] 75 mg PO DAILY 10/09/17 Diltiazem HCl [Diltiazem 24Hr Cd] 240 mg PO DAILY 10/09/17 Carvedilol [Coreg -] 25 mg PO BID tablet 12/13/17 Dorzolamide HCl [Trusopt 2% -] 1 drop OU BID drops 12/13/17 Latanoprost 0.005% Eye Drops [Xalatan 0.005% Eye Drops -] 1 drop OU HS drops Timolol 0.5% [Timoptic 0.5%] 1 drop OU BID drops 12/13/17 Colchicine [Colcrys -] 0.6 mg PO BID tablet 01/05/18 Furosemide [Lasix -] 40 mg PO DAILY tablet 01/05/18 Hydroxychloroquine So4 [Plaquenil -] 200 mg PO DAILY tablet 01/05/18 Insulin (Levemir) [Levemir Vial] 20 units SQ AM ml 01/05/18 Potassium Chloride [K-Dur -] 40 meq PO DAILY tablet.er 01/05/18 Alprazolam [Xanax] 0.5 mg PO HS PRN MDD 2 TABS 01/11/18 Insulin Sliding Scale [Novolog Vial Sliding Scale -] 0 units SQ ACHS PRN Enoxaparin [Lovenox -] 70 mg SQ BID disp.syrin 01/24/18 Insulin Sliding Scale [Novolog Vial Sliding Scale -] 1 vial SQ ACHS units 01/24 predniSONE [Deltasone -] 1 mg PO DAILY 01/29/18 Review of Systems - Review of Systems Constitutional: reports: Weakness Eyes: reports: No Symptoms HENT: reports: No Symptoms Neck: reports: No Symptoms Cardiovascular: reports: No Symptoms Respiratory: reports: No Symptoms Gastrointestinal: reports: No Symptoms Genitourinary: reports: Burning, Dysuria, Frequency. denies: Flank Pain Musculoskeletal: reports: No Symptoms Integumentary: reports: No Symptoms Neurological: reports: No Symptoms Endocrine: reports: No Symptoms Hematology/Lymphatic: reports: No Symptoms Psychiatric: reports: No Symptoms Physical Exam Vital Signs: Vital Signs Temperature 98.1 F 01/29/18 12:47 Pulse Rate 78 01/29/18 12:47 Respiratory Rate 16 01/29/18 12:47 Blood Pressure 153/73 01/29/18 12:47 O2 Sat by Pulse Oximetry (%) 98 01/29/18 12:47 Constitutional: Yes: No Distress, Calm HENT: Yes: Other (bump on the head due to fall) Cardiovascular: Yes: Pulse Irregular, S1, S2 Respiratory: Yes: Regular, CTA Bilaterally Gastrointestinal: Yes: Normal Bowel Sounds, Soft Musculoskeletal: Yes: WNL Extremities: Yes: WNL Neurological: Yes: Alert, Oriented Psychiatric: Yes: Alert, Oriented Labs: CBC, BMP 01/29/18 09:50 01/29/18 09:50 Imaging - Results Chest X-ray: Report Reviewed, Image Reviewed Cat Scan: Report Reviewed, Image Reviewed Assessment/Plan Problem List - Problems (1) Distal radial fracture Code(s): S52.509A - UNSP FRACTURE OF THE LOWER END OF UNSP RADIUS, INIT Qualifiers: Encounter type: initial encounter (2) UTI (urinary tract infection) Code(s): N39.0 - URINARY TRACT INFECTION, SITE NOT SPECIFIED Qualifiers: Urinary tract infection type: acute cystitis (3) DVT (deep venous thrombosis) Code(s): I82.409 - ACUTE EMBOLISM AND THOMBOS UNSP DEEP VN UNSP LOWER EXTREMITY Qualifiers: DVT location: lower extremity Affected thrombotic vein of extremity: popliteal Chronicity: acute Laterality: left Qualified Code(s): I82.432 - Acute embolism and thrombosis of left popliteal vein (4) Pericarditis Code(s): I31.9 - DISEASE OF PERICARDIUM, UNSPECIFIED Qualifiers: Pericarditis type: unspecified type (5) Afib Code(s): I48.91 - UNSPECIFIED ATRIAL FIBRILLATION Qualifiers: Atrial fibrillation type: paroxysmal Qualified Code(s): I48.0 - Paroxysmal atrial fibrillation (6) Anemia Code(s): D64.9 - ANEMIA, UNSPECIFIED (7) Diabetes Code(s): E11.9 - TYPE 2 DIABETES MELLITUS WITHOUT COMPLICATIONS Qualifiers: Diabetes mellitus type: type 2 (8) HLD (hyperlipidemia) Code(s): E78.5 - HYPERLIPIDEMIA, UNSPECIFIED (9) HTN (hypertension) Code(s): I10 - ESSENTIAL (PRIMARY) HYPERTENSION Qualifiers: Hypertension type: essential hypertension Qualified Code(s): I10 - Essential (primary) hypertension (10) CHF (congestive heart failure) Code(s): I50.9 - HEART FAILURE, UNSPECIFIED i am suspecting patient has uti symptoms again.past history of esbl plan will start patient on ertapenam will await for cx results cardio on case rest as per primary team
[2018-01-29 16:32] VITALS: BMI 26.4
[2018-01-29] MEDS ORDERED: ACETAMINOPHEN 325 MG TABLET (FP) PO ONE (18:30)
--- NOTE | 2018-01-29 22:12 | HP ---
Admitting History and Physical - Admission History of Present Illness: Pt is a 72 y/o female w/ PMH significant for HTN, paroxsymal afib, CHF, pericardial effusion/pericarditis, diabetes, CVA, YAQUELIN, DVT(s/p hematoma LLE). Pt also was recently treated for ESBL w/ IV antibxs and was dc'ed to a SNF. Pt now sent from SNF due to a fall after trying to go to the bathroom. Pt says she turned and fell. She used her left hand to try and brace her fall and now has left hand and wrist pain. She twisted fell backwards and hit the rt side of her head. Pt had ct scan head in the ER wc did not show any acute pathology. XRAY of her lt upper extremity showed lt distal radial fx. 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: CVA Cardiovascular: Yes: AFIB, CHF, HTN, Hyperlipdemia, Other (pericarditis Pericardial effusion) Gastrointestinal: Yes: GERD Renal/: Yes: Other (Renal artery stenosis) ...: No Heme/Onc: Yes: Other (DVT) Endocrine: Yes: Diabetes Mellitus - Past Surgical History Past Surgical History: Yes: Permanent Pacemaker - Advance Directives Advance Directives: Yes: Health Care Proxy - Smoking History Smoking history: Former smoker Have you smoked in the past 12 months: No Aproximately how many cigarettes per day: 5 If you are a former smoker, when did you quit?: 1993 - Alcohol/Substance Use Hx Alcohol Use: No - Social History ADL: Family Assistance History of Recent Travel: No Home Medications - Allergies Allergies/Adverse Reactions: Allergies Allergy/AdvReac Type Severity Reaction Status Date / Time aspirin Allergy Severe Verified 01/11/18 04:26 Penicillins Allergy Severe Verified 01/11/18 04:26 peanut Allergy Unknown Verified 01/19/18 12:17 diclofenac Allergy Verified 01/11/18 04:26 shellfish derived Allergy Verified 01/11/18 04:26 lactose AdvReac Verified 01/11/18 04:26 peanut Allergy Unknown Rash Uncoded 01/19/18 12:57 iv contrast Allergy Uncoded 01/11/18 04:26 - Home Medications Home Medications: Ambulatory Orders Clopidogrel Bisulfate [Plavix -] 75 mg PO DAILY 10/09/17 Diltiazem HCl [Diltiazem 24Hr Cd] 240 mg PO DAILY 10/09/17 Carvedilol [Coreg -] 25 mg PO BID tablet 12/13/17 Dorzolamide HCl [Trusopt 2% -] 1 drop OU BID drops 12/13/17 Latanoprost 0.005% Eye Drops [Xalatan 0.005% Eye Drops -] 1 drop OU HS drops Timolol 0.5% [Timoptic 0.5%] 1 drop OU BID drops 12/13/17 Colchicine [Colcrys -] 0.6 mg PO BID tablet 01/05/18 Furosemide [Lasix -] 40 mg PO DAILY tablet 01/05/18 Hydroxychloroquine So4 [Plaquenil -] 200 mg PO DAILY tablet 01/05/18 Insulin (Levemir) [Levemir Vial] 20 units SQ AM ml 01/05/18 Potassium Chloride [K-Dur -] 40 meq PO DAILY tablet.er 01/05/18 Alprazolam [Xanax] 0.5 mg PO HS PRN MDD 2 TABS 01/11/18 Insulin Sliding Scale [Novolog Vial Sliding Scale -] 0 units SQ ACHS PRN Enoxaparin [Lovenox -] 70 mg SQ BID disp.syrin 01/24/18 Insulin Sliding Scale [Novolog Vial Sliding Scale -] 1 vial SQ ACHS units 01/24 predniSONE [Deltasone -] 1 mg PO DAILY 01/29/18 Family Disease History - Family Disease History Family History: Unremarkable Review of Systems - Review of Systems Constitutional: reports: No Symptoms Eyes: reports: No Symptoms HENT: reports: No Symptoms Neck: reports: No Symptoms Cardiovascular: reports: No Symptoms Respiratory: reports: No Symptoms Gastrointestinal: reports: No Symptoms Physical Examination Vital Signs: Vital Signs Temperature 98.2 F 01/29/18 18:30 Pulse Rate 68 01/29/18 18:30 Respiratory Rate 18 01/29/18 18:30 Blood Pressure 176/67 01/29/18 18:30 O2 Sat by Pulse Oximetry (%) 95 01/29/18 16:15 Constitutional: Yes: No Distress HENT: Yes: WNL Neck: Yes: WNL, Supple Cardiovascular: Yes: WNL, Regular Rate and Rhythm Respiratory: Yes: WNL, Regular, CTA Bilaterally Gastrointestinal: Yes: WNL, Normal Bowel Sounds, Soft Extremities: Yes: Other (LUE in a brace) Labs: CBC, BMP 01/29/18 09:50 01/29/18 09:50 Problem List - Problems (1) Distal radial fracture Assessment/Plan: Fx lt distal radius As per ortho Code(s): S52.509A - UNSP FRACTURE OF THE LOWER END OF UNSP RADIUS, INIT Qualifiers: Encounter type: initial encounter (2) UTI (urinary tract infection) Assessment/Plan: Cont IV antibxs ID consult Follow urine cultures Code(s): N39.0 - URINARY TRACT INFECTION, SITE NOT SPECIFIED Qualifiers: Urinary tract infection type: acute cystitis (3) DVT (deep venous thrombosis) Assessment/Plan: Cont lovenox Code(s): I82.409 - ACUTE EMBOLISM AND THOMBOS UNSP DEEP VN UNSP LOWER EXTREMITY Qualifiers: DVT location: lower extremity Affected thrombotic vein of extremity: popliteal Chronicity: acute Laterality: left Qualified Code(s): I82.432 - Acute embolism and thrombosis of left popliteal vein (4) Pericarditis Assessment/Plan: Cont prednisone Code(s): I31.9 - DISEASE OF PERICARDIUM, UNSPECIFIED Qualifiers: Pericarditis type: unspecified type (5) Afib Assessment/Plan: Heart rate controlled Code(s): I48.91 - UNSPECIFIED ATRIAL FIBRILLATION Qualifiers: Atrial fibrillation type: paroxysmal Qualified Code(s): I48.0 - Paroxysmal atrial fibrillation (6) Anemia Assessment/Plan: Multifactorial Monitor H/H Code(s): D64.9 - ANEMIA, UNSPECIFIED (7) Diabetes Code(s): E11.9 - TYPE 2 DIABETES MELLITUS WITHOUT COMPLICATIONS Qualifiers: Diabetes mellitus type: type 2 (8) HLD (hyperlipidemia) Code(s): E78.5 - HYPERLIPIDEMIA, UNSPECIFIED (9) HTN (hypertension) Code(s): I10 - ESSENTIAL (PRIMARY) HYPERTENSION Qualifiers: Hypertension type: essential hypertension Qualified Code(s): I10 - Essential (primary) hypertension (10) CHF (congestive heart failure) Code(s): I50.9 - HEART FAILURE, UNSPECIFIED
[2018-01-29] MEDS: COLCHICINE 0.6 MG TABLET (FP) PO SCH (23:36)
[2018-01-29] MEDS: LATANOPROST 0.005% OPHTH SOLN 2.5ML BOTTLE OU SCH (23:36)
[2018-01-29] MEDS: CARVEDILOL 25 MG TABLET (FP) PO SCH (23:36)
[2018-01-29] MEDS: ENOXAPARIN NA (PORCINE) 80 MG/0.8 ML DISP.SYRIN SQ SCH (23:36)
[2018-01-29] MEDS: TIMOLOL 0.5% OPHTHALMIC SOL 5 ML BOTTLE OU SCH (23:36)
[2018-01-29] MEDS: DORZOLAMIDE 2% HCL OPHTHALMIC SOLUTION 10 ML BOTTLE OU SCH (23:37)
[2018-01-30] MEDS ORDERED: ACETAMINOPHEN 325 MG TABLET (FP) PO ONE (00:18)
[2018-01-30] MEDS: morphine SULFATE 4 MG/ML VIAL IVPUSH PRN ×3 (04:34→21:21)
[2018-01-30] MEDS ORDERED: INSULIN (LEVEMIR) 100 UNITS/ML UNITS SQ ONE (04:57)
[2018-01-30] MEDS: INSULIN SLIDING SCALE (NOVOLOG) 1 VIAL SQ SCH ×4 (06:04→21:31)
[2018-01-30] MEDS: INSULIN (LEVEMIR) 100 UNITS/ML UNITS SQ SCH (06:12)
[2018-01-30 08:34] LABS: BASO % 0.6 % (0-2.0); EOS % 2.8 % (0-4.5); HEMATOCRIT 31.7 % (32.4-45.2); HEMOGLOBIN 10.4 GM/dL (10.7-15.3); LYMPH % 25.8 % (8-40); MCH 28.9 pg (25.7-33.7); MCHC 32.7 g/dl (32.0-36.0); MEAN CELL VOLUME 88.4 fl (80-96); MEAN PLT VOLUME 7.9 fl (7.5-11.1); MONO % 9.6 % (3.8-10.2); NEUT % 61.2 % (42.8-82.8); PLATELET COUNT 305 K/MM3 (134-434); RBC 3.58 M/mm3 (3.60-5.2); WHITE BLOOD COUNT 5.5 K/mm3 (4.0-10.0)
--- NOTE | 2018-01-30 09:57 | PN ---
Progress Note, Physician Chief Complaint: Fall distal radial fracture Well known to me from office and multiple previous hospitalizations. History of Present Illness: 72F with: Anticardiolipin Ab + Suspected connective tissue disorder with markedly + MEGHANN Acute DVT while on Coumadin with fluctuating INRs now on chronic BID Lovenox Bilateral PNA (post-influenza), resolved PAF s/p PPM, prior CVA History of pericarditis hematoma left lower extremity hematoma and DVT, overall improved from admission HTN Moderate unilateral renal artery stenosis Now admitted again with ER H & P as follows: " 72 y/o female who is currently in a halfway around 7:20am she needed to go to the bathroom. PT was worried about urinating on her self and went to the bathroom unassisted. Pt says she turned and fell. She used her left hand to try and brace her fall, and now has left hand and wrist pain. She twisted fell backwards and hit the rt side of her head. PT denies chest pain, palpitations or dizziness, no lOC, staff at halfway responded immediately as per patient. Pt now c/o left wrist and hand pain, lower abdominal discomfort and lower back pain. " She was found to have a distal radial fracture. Awaits ortho eval. She denies chest pain, palps, SOB, LOC. - Current Medication List Current Medications: Active Medications Carvedilol (Coreg -) 25 mg PO BID [facility] Last Admin: 01/29/18 23:36 Dose: 25 mg Clopidogrel Bisulfate (Plavix -) 75 mg PO DAILY [facility] Colchicine (Colcrys -) 0.6 mg PO BID [facility] Last Admin: 01/29/18 23:36 Dose: 0.6 mg Diltiazem HCl (Cardizem Cd -) 240 mg PO DAILY [facility] Dorzolamide HCl (Trusopt 2%) 1 drop OU BID [facility] Last Admin: 01/29/18 23:37 Dose: 1 drop Enoxaparin Sodium (Lovenox -) 70 mg SQ BID [facility] Last Admin: 01/29/18 23:36 Dose: 70 mg Furosemide (Lasix -) 40 mg PO DAILY [facility] Hydroxychloroquine Sulfate (Plaquenil -) 200 mg PO DAILY [facility] Ertapenem 1 gm/ Sodium (Chloride) 100 mls @ 200 mls/hr IVPB DAILY [facility] PRN Reason: Protocol Insulin Aspart (Novolog Vial Sliding Scale -) 1 vial SQ ACHS [facility] PRN Reason: Protocol Last Admin: 01/30/18 06:04 Dose: Not Given Insulin Detemir (Levemir Vial) 20 units SQ AM [facility] Last Admin: 01/30/18 06:12 Dose: 20 units Latanoprost (Xalatan 0.005% Eye Drops -) 1 drop OU HS [facility] Last Admin: 01/29/18 23:36 Dose: 1 drop Morphine Sulfate (Morphine Sulfate) 2 mg IVPUSH Q6H PRN PRN Reason: PAIN LEVEL 1-5 Last Admin: 01/30/18 04:34 Dose: 2 mg Prednisone (Deltasone -) 1 mg PO DAILY [facility] Timolol Maleate (Timoptic 0.5%) 1 drop OU BID [facility] Last Admin: 01/29/18 23:36 Dose: 1 drop - Objective Vital Signs: Vital Signs Temperature 98.7 F 01/30/18 06:00 Pulse Rate 75 01/30/18 06:00 Respiratory Rate 20 01/30/18 06:00 Blood Pressure 157/76 01/30/18 06:00 O2 Sat by Pulse Oximetry (%) 95 01/29/18 21:00 Constitutional: Yes: No Distress, Calm Eyes: Yes: Conjunctiva Clear Cardiovascular: Yes: Regular Rate and Rhythm Respiratory: Yes: CTA Bilaterally (no rales or wheezing) Gastrointestinal: Yes: Soft (mild suprapubic tenderness) Edema: Yes Edema: LLE: 1+ (hematoma resolving), RLE: 1+ Labs: CBC, BMP 01/30/18 06:30 INR, PTT INR 1.13 (0.82-1.09) 01/29/18 09:50 Laboratory Tests 01/29/18 01/29/18 01/30/18 09:50 09:50 06:30 WBC 5.5 Hgb 10.4 L Plt Count 305 Sodium 143 Potassium 5.1 BUN 19 H Creatinine 1.1 H AST 81 H ALT 60 Creatine Kinase 82 Troponin I < 0.02 Urine Protein 1+ H Urine Blood 2+ H Ur Leukocyte Esterase 3+ H Urine WBC (Auto) 319 01/30/18 06:30 WBC Hgb Plt Count Sodium Pending Potassium Pending BUN Pending Creatinine Pending AST Pending ALT Pending Creatine Kinase Troponin I Urine Protein Urine Blood Ur Leukocyte Esterase Urine WBC (Auto) - ....Imaging Chest X-ray: Report Reviewed X-ray: Report Reviewed EKG: Image Reviewed (NSR with intermittent A pacing. IVCD. Poor R wave progression) Problem List - Problems (1) Distal radial fracture Code(s): S52.509A - UNSP FRACTURE OF THE LOWER END OF UNSP RADIUS, INIT Qualifiers: Encounter type: initial encounter (2) UTI (urinary tract infection) Code(s): N39.0 - URINARY TRACT INFECTION, SITE NOT SPECIFIED Qualifiers: Urinary tract infection type: acute cystitis (3) Afib Code(s): I48.91 - UNSPECIFIED ATRIAL FIBRILLATION Qualifiers: Atrial fibrillation type: paroxysmal Qualified Code(s): I48.0 - Paroxysmal atrial fibrillation (4) Anticardiolipin antibody positive Code(s): R76.8 - OTHER SPECIFIED ABNORMAL IMMUNOLOGICAL FINDINGS IN SERUM (5) DVT (deep venous thrombosis) Code(s): I82.409 - ACUTE EMBOLISM AND THOMBOS UNSP DEEP VN UNSP LOWER EXTREMITY Qualifiers: DVT location: lower extremity Affected thrombotic vein of extremity: popliteal Chronicity: acute Laterality: left Qualified Code(s): I82.432 - Acute embolism and thrombosis of left popliteal vein (6) Diabetes 1.5, managed as type 2 Code(s): E10.9 - TYPE 1 DIABETES MELLITUS WITHOUT COMPLICATIONS (7) HLD (hyperlipidemia) Code(s): E78.5 - HYPERLIPIDEMIA, UNSPECIFIED (8) HTN (hypertension) Code(s): I10 - ESSENTIAL (PRIMARY) HYPERTENSION Qualifiers: Hypertension type: essential hypertension Qualified Code(s): I10 - Essential (primary) hypertension (9) Hematoma of leg Code(s): S80.10XA - CONTUSION OF UNSPECIFIED LOWER LEG, INITIAL ENCOUNTER Qualifiers: Encounter type: initial encounter Laterality: left Qualified Code(s): S80.12XA - Contusion of left lower leg, initial encounter (10) History of stent insertion of renal artery Code(s): Z98.890 - OTHER SPECIFIED POSTPROCEDURAL STATES (11) Pericardial effusion Code(s): I31.3 - PERICARDIAL EFFUSION (NONINFLAMMATORY) (12) Pericarditis Code(s): I31.9 - DISEASE OF PERICARDIUM, UNSPECIFIED Qualifiers: Pericarditis type: unspecified type Assessment/Plan IMP: 1. Mechanical fall with distal radial fracture 2. Anticardiolipin Ab + 3. Suspected connective tissue disorder with markedly + MEGHANN 4. Acute DVT while on Coumadin with fluctuating INRs now on chronic BID Lovenox 5. Bilateral PNA (post-influenza), resolved 6. PAF s/p PPM, prior CVA, Pacemaker ([employer]) 7. History of pericarditis due to suspected underying connective tissue disease 8. Hematoma left lower extremityoverall improved from pior admission 9. HTN 10. Moderate unilateral renal artery stenosis REC: If surgery is required, the following cardiac recommendations are provided- Periop cardiac assessment: 1. Would repeat head CT as patient fell on AC and has scalp hematoma 2. Recent cardiac cath at [facility] several months ago showed non-obstructive CAD, patent stent (placed > 1 year ago). There is no history of aortic stenosis. No further diagnostic testing is planned. 3. Anesthesia should be aware she has a [employer] PPM and PAF. She does not appear to be PPM dependant on ECG. 4. Given her hx of anticardiolipin Ab +, prior DVT while on coumadin, AFib with CVA, she is considered high risk for recurrent VTE if AC is suspended for a significant period of time. However, if surgery is required can hold Lovenox evening prior and resume post op as soon as feasible. 5. Blood pressure is overall fairly well controlled, would give usual BP meds morning of surgery with a sip of water. Pain control to minimize periodic mild elevations from baseline. 6. She is on Plavix for PAD, CAD. It may be held for surgery temporarily (if needed) 3-5 days with overall low cardiac risk. Please call again as/ if needed ([phone] cell) I will plan to check in on her progress Wednesday if she remains hospitalized.
[2018-01-30] MEDS ORDERED: POTASSIUM CHLORIDE TABS 20 MEQ TABLET.ER (FP) PO SCH (10:00)
[2018-01-30] MEDS ORDERED: PT OWN MED DRAWER 7, Y5N ONE ×2 (10:29→12:38)
[2018-01-30] MEDS: CARVEDILOL 25 MG TABLET (FP) PO SCH ×2 (10:39→21:34)
[2018-01-30] MEDS: COLCHICINE 0.6 MG TABLET (FP) PO SCH ×2 (10:39→21:34)
[2018-01-30] MEDS: ENOXAPARIN NA (PORCINE) 80 MG/0.8 ML DISP.SYRIN SQ SCH ×2 (10:39→21:32)
[2018-01-30] MEDS: HYDROXYCHLOROQUINE SO4 200 MG TABLET (FP) PO SCH (10:39)
[2018-01-30] MEDS: predniSONE 1 MG TABLET (FP) PO SCH (10:39)
[2018-01-30] MEDS: CLOPIDOGREL BISULFATE 75 MG TABLET (FP) PO SCH (10:39)
[2018-01-30] MEDS: FUROSEMIDE 40 MG TABLET (FP) PO SCH (10:39)
[2018-01-30] MEDS: TIMOLOL 0.5% OPHTHALMIC SOL 5 ML BOTTLE OU SCH ×2 (10:40→21:34)
[2018-01-30] MEDS: DORZOLAMIDE 2% HCL OPHTHALMIC SOLUTION 10 ML BOTTLE OU SCH ×2 (10:43→21:34)
[2018-01-30 11:02] LABS: CHLORIDE 104 mmol/L (98-107); POTASSIUM 3.9 mmol/L (3.5-5.1); SODIUM 140 mmol/L (136-145)
[2018-01-30 11:13] LABS: ALBUMIN 2.8 g/dl (3.4-5.0); ALK PHOS 91 U/L (45-117); ANION GAP 9 (8-16); BILIRUBIN,TOTAL 0.3 mg/dL (0.2-1.0); BLOOD UREA NITROGEN 12 mg/dL (7-18); CALCIUM 9.2 mg/dL (8.5-10.1); CO2 27 mmol/L (21-32); CREATININE 0.9 mg/dL (0.55-1.02); GLUCOSE,RANDOM 115 mg/dL (74-106); SGOT/AST 37 U/L (15-37); SGPT/ALT 43 U/L (12-78); TOT PROT 6.2 g/dl (6.4-8.2)
[2018-01-30] MEDS ORDERED: INSULIN (NOVOLOG) ASPART 100 UNITS/ML 10ML VIAL ONE (11:42)
[2018-01-30] MEDS: ERTAPENEM SODIUM 1 GM in SODIUM CHLORIDE 100 ML IVPB SCH (11:52)
--- NOTE | 2018-01-30 12:17 | PN ---
Progress Note, Physician History of Present Illness: stable no issues cx result noted - Current Medication List Current Medications: Active Medications Carvedilol (Coreg -) 25 mg PO BID [facility] Last Admin: 01/30/18 10:39 Dose: 25 mg Clopidogrel Bisulfate (Plavix -) 75 mg PO DAILY [facility] Last Admin: 01/30/18 10:39 Dose: 75 mg Colchicine (Colcrys -) 0.6 mg PO BID [facility] Last Admin: 01/30/18 10:39 Dose: 0.6 mg Diltiazem HCl (Cardizem Cd -) 240 mg PO DAILY [facility] Last Admin: 01/30/18 10:39 Dose: 240 mg Dorzolamide HCl (Trusopt 2%) 1 drop OU BID [facility] Last Admin: 01/30/18 10:43 Dose: 1 drop Enoxaparin Sodium (Lovenox -) 70 mg SQ BID [facility] Last Admin: 01/30/18 10:39 Dose: 70 mg Furosemide (Lasix -) 40 mg PO DAILY [facility] Last Admin: 01/30/18 10:39 Dose: 40 mg Hydroxychloroquine Sulfate (Plaquenil -) 200 mg PO DAILY [facility] Last Admin: 01/30/18 10:39 Dose: 200 mg Ertapenem 1 gm/ Sodium (Chloride) 100 mls @ 200 mls/hr IVPB DAILY [facility] PRN Reason: Protocol Last Admin: 01/30/18 11:52 Dose: 200 mls/hr Insulin Aspart (Novolog Vial Sliding Scale -) 1 vial SQ ACHS [facility] PRN Reason: Protocol Last Admin: 01/30/18 11:53 Dose: Not Given Insulin Detemir (Levemir Vial) 20 units SQ AM [facility] Last Admin: 01/30/18 06:12 Dose: 20 units Latanoprost (Xalatan 0.005% Eye Drops -) 1 drop OU HS [facility] Last Admin: 01/29/18 23:36 Dose: 1 drop Morphine Sulfate (Morphine Sulfate) 2 mg IVPUSH Q6H PRN PRN Reason: PAIN LEVEL 1-5 Last Admin: 01/30/18 10:39 Dose: 2 mg Prednisone (Deltasone -) 1 mg PO DAILY [facility] Last Admin: 01/30/18 10:39 Dose: 1 mg Timolol Maleate (Timoptic 0.5%) 1 drop OU BID [facility] Last Admin: 01/30/18 10:40 Dose: 1 drop - Objective Vital Signs: Vital Signs Temperature 98.7 F 01/30/18 06:00 Pulse Rate 75 01/30/18 06:00 Respiratory Rate 20 01/30/18 06:00 Blood Pressure 157/76 01/30/18 06:00 O2 Sat by Pulse Oximetry (%) 95 01/29/18 21:00 Constitutional: Yes: No Distress, Calm Cardiovascular: Yes: Pulse Irregular, S1, S2 Respiratory: Yes: Regular, CTA Bilaterally Gastrointestinal: Yes: Normal Bowel Sounds, Soft Musculoskeletal: Yes: WNL Extremities: Yes: WNL Neurological: Yes: Alert, Oriented Psychiatric: Yes: Alert, Oriented Labs: CBC, BMP 01/30/18 06:30 01/30/18 06:30 INR, PTT INR 1.13 (0.82-1.09) 01/29/18 09:50 - ....Imaging X-ray: Report Reviewed, Image Reviewed Cat Scan: Report Reviewed, Image Reviewed Assessment/Plan Problem List - Problems (1) Distal radial fracture Code(s): S52.509A - UNSP FRACTURE OF THE LOWER END OF UNSP RADIUS, INIT Qualifiers: Encounter type: initial encounter (2) UTI (urinary tract infection) Code(s): N39.0 - URINARY TRACT INFECTION, SITE NOT SPECIFIED Qualifiers: Urinary tract infection type: acute cystitis (3) DVT (deep venous thrombosis) Code(s): I82.409 - ACUTE EMBOLISM AND THOMBOS UNSP DEEP VN UNSP LOWER EXTREMITY Qualifiers: DVT location: lower extremity Affected thrombotic vein of extremity: popliteal Chronicity: acute Laterality: left Qualified Code(s): I82.432 - Acute embolism and thrombosis of left popliteal vein (4) Pericarditis Code(s): I31.9 - DISEASE OF PERICARDIUM, UNSPECIFIED Qualifiers: Pericarditis type: unspecified type (5) Afib Code(s): I48.91 - UNSPECIFIED ATRIAL FIBRILLATION Qualifiers: Atrial fibrillation type: paroxysmal Qualified Code(s): I48.0 - Paroxysmal atrial fibrillation (6) Anemia Code(s): D64.9 - ANEMIA, UNSPECIFIED (7) Diabetes Code(s): E11.9 - TYPE 2 DIABETES MELLITUS WITHOUT COMPLICATIONS Qualifiers: Diabetes mellitus type: type 2 (8) HLD (hyperlipidemia) Code(s): E78.5 - HYPERLIPIDEMIA, UNSPECIFIED (9) HTN (hypertension) Code(s): I10 - ESSENTIAL (PRIMARY) HYPERTENSION Qualifiers: Hypertension type: essential hypertension Qualified Code(s): I10 - Essential (primary) hypertension (10) CHF (congestive heart failure) Code(s): I50.9 - HEART FAILURE, UNSPECIFIED i am suspecting patient has uti symptoms again.past history of esbl plan continue abx await for identification of the bacteria rest as per ortho cardio on case
--- NOTE | 2018-01-30 14:08 | CON.ORTH ---
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: Yes: CVA Cardio/Vascular: Yes: AFIB, HTN, Hyperlipdemia, Other (pericarditis Pericardial effusion) Renal/: Yes: Other (Renal artery stenosis) ...: No Endocrine: Yes: Diabetes Mellitus - Past Surgical History Past Surgical History: Yes: Permanent Pacemaker - Alcohol/Substance Use Hx Alcohol Use: No - Smoking History Smoking history: Former smoker Have you smoked in the past 12 months: No Aproximately how many cigarettes per day: 5 If you are a former smoker, when did you quit?: 1993 - Social History ADL: Family Assistance History of Recent Travel: No Home Medications - Allergies Allergies/Adverse Reactions: Allergies Allergy/AdvReac Type Severity Reaction Status Date / Time aspirin Allergy Severe Verified 01/11/18 04:26 Penicillins Allergy Severe Verified 01/11/18 04:26 peanut Allergy Unknown Verified 01/19/18 12:17 diclofenac Allergy Verified 01/11/18 04:26 shellfish derived Allergy Verified 01/11/18 04:26 lactose AdvReac Verified 01/11/18 04:26 peanut Allergy Unknown Rash Uncoded 01/19/18 12:57 iv contrast Allergy Uncoded 01/11/18 04:26 - Home Medications Home Medications: Ambulatory Orders Clopidogrel Bisulfate [Plavix -] 75 mg PO DAILY 10/09/17 Diltiazem HCl [Diltiazem 24Hr Cd] 240 mg PO DAILY 10/09/17 Carvedilol [Coreg -] 25 mg PO BID tablet 12/13/17 Dorzolamide HCl [Trusopt 2% -] 1 drop OU BID drops 12/13/17 Latanoprost 0.005% Eye Drops [Xalatan 0.005% Eye Drops -] 1 drop OU HS drops Timolol 0.5% [Timoptic 0.5%] 1 drop OU BID drops 12/13/17 Colchicine [Colcrys -] 0.6 mg PO BID tablet 01/05/18 Furosemide [Lasix -] 40 mg PO DAILY tablet 01/05/18 Hydroxychloroquine So4 [Plaquenil -] 200 mg PO DAILY tablet 01/05/18 Insulin (Levemir) [Levemir Vial] 20 units SQ AM ml 01/05/18 Potassium Chloride [K-Dur -] 40 meq PO DAILY tablet.er 01/05/18 Alprazolam [Xanax] 0.5 mg PO HS PRN MDD 2 TABS 01/11/18 Insulin Sliding Scale [Novolog Vial Sliding Scale -] 0 units SQ ACHS PRN Enoxaparin [Lovenox -] 70 mg SQ BID disp.syrin 01/24/18 Insulin Sliding Scale [Novolog Vial Sliding Scale -] 1 vial SQ ACHS units 01/24 predniSONE [Deltasone -] 1 mg PO DAILY 01/29/18 Physical Exam for Ortho Vital Signs: Vital Signs Temperature 98.7 F 01/30/18 06:00 Pulse Rate 75 01/30/18 06:00 Respiratory Rate 20 01/30/18 09:00 Blood Pressure 157/76 01/30/18 06:00 O2 Sat by Pulse Oximetry (%) 97 01/30/18 09:00 Labs: CBC, BMP 01/30/18 06:30 01/30/18 06:30 INR, PTT INR 1.13 (0.82-1.09) 01/29/18 09:50 - Upper Extremity Wrist: Yes: Left, Limited ROM, Pain, Swelling, Tenderness, Other (nvi) Imaging - Results X-ray: Report Reviewed, Image Reviewed Assessment/Plan 72 y/o female who is currently in a detention around 7:20am she needed to go to the bathroom. PT was worried about urinating on her self and went to the bathroom unassisted. Pt says she turned and fell. She used her left hand to try and brace her fall, and now has left hand and wrist pain. She twisted fell backwards and hit the rt side of her head. PT denies chest pain, palpitations or dizziness, no lOC, staff at detention responded immediately as per patient. Pt now c/o left wrist and hand pain, lower abdominal discomfort and lower back pain. a/p left distal radius fx, nondisplaced, Lumbar DDD, chronic partial compression fx No surgical intervention for left wrist wrist will place cast tomorrow am strict elevation PT eval for LS spine pain control will follow d/w Dr. Horn
[2018-01-30] MEDS: LATANOPROST 0.005% OPHTH SOLN 2.5ML BOTTLE OU SCH (21:33)
--- NOTE | 2018-01-30 21:42 | EKG ---
Test Reason : Blood Pressure : / mmHG Vent. Rate : 063 BPM Atrial Rate : 063 BPM P-R Int : 146 ms QRS Dur : 128 ms QT Int : 422 ms P-R-T Axes : 028 030 182 degrees QTc Int : 431 ms NORMAL SINUS RHYTHM LEFT BUNDLE BRANCH BLOCK ABNORMAL ECG WHEN COMPARED WITH ECG OF 11-JAN-2018 07:37, SINUS RHYTHM HAS REPLACED ELECTRONIC ATRIAL PACEMAKER Confirmed by NY GARZON MD ([id number]) on 01/30/2018 9:42:16 PM Referred By: Confirmed By:NY GARZON MD
--- NOTE | 2018-01-30 21:57 | PN ---
Progress Note, Physician History of Present Illness: Pt complains of LUE pain and JEREZ - Current Medication List Current Medications: Active Medications Carvedilol (Coreg -) 25 mg PO BID [facility] Last Admin: 01/30/18 21:34 Dose: 25 mg Clopidogrel Bisulfate (Plavix -) 75 mg PO DAILY [facility] Last Admin: 01/30/18 10:39 Dose: 75 mg Colchicine (Colcrys -) 0.6 mg PO BID [facility] Last Admin: 01/30/18 21:34 Dose: 0.6 mg Diltiazem HCl (Cardizem Cd -) 240 mg PO DAILY [facility] Last Admin: 01/30/18 10:39 Dose: 240 mg Dorzolamide HCl (Trusopt 2%) 1 drop OU BID [facility] Last Admin: 01/30/18 21:34 Dose: 1 drop Enoxaparin Sodium (Lovenox -) 70 mg SQ BID [facility] Last Admin: 01/30/18 21:32 Dose: 70 mg Furosemide (Lasix -) 40 mg PO DAILY [facility] Last Admin: 01/30/18 10:39 Dose: 40 mg Hydroxychloroquine Sulfate (Plaquenil -) 200 mg PO DAILY [facility] Last Admin: 01/30/18 10:39 Dose: 200 mg Ertapenem 1 gm/ Sodium (Chloride) 100 mls @ 200 mls/hr IVPB DAILY [facility] PRN Reason: Protocol Last Admin: 01/30/18 11:52 Dose: 200 mls/hr Insulin Aspart (Novolog Vial Sliding Scale -) 1 vial SQ ACHS [facility] PRN Reason: Protocol Last Admin: 01/30/18 21:31 Dose: Not Given Insulin Detemir (Levemir Vial) 20 units SQ AM [facility] Last Admin: 01/30/18 06:12 Dose: 20 units Latanoprost (Xalatan 0.005% Eye Drops -) 1 drop OU HS [facility] Last Admin: 01/30/18 21:33 Dose: 1 drop Morphine Sulfate (Morphine Sulfate) 2 mg IVPUSH Q6H PRN PRN Reason: PAIN LEVEL 1-5 Last Admin: 01/30/18 21:21 Dose: 2 mg Prednisone (Deltasone -) 1 mg PO DAILY [facility] Last Admin: 01/30/18 10:39 Dose: 1 mg Timolol Maleate (Timoptic 0.5%) 1 drop OU BID [facility] Last Admin: 01/30/18 21:34 Dose: 1 drop - Objective Vital Signs: Vital Signs Temperature 99.3 F 01/30/18 16:30 Pulse Rate 63 01/30/18 16:30 Respiratory Rate 18 01/30/18 16:30 Blood Pressure 144/63 01/30/18 16:30 O2 Sat by Pulse Oximetry (%) 97 01/30/18 09:00 Constitutional: Yes: Well Nourished HENT: Yes: WNL Neck: Yes: WNL, Supple Cardiovascular: Yes: WNL, Regular Rate and Rhythm Respiratory: Yes: WNL, Regular, CTA Bilaterally Gastrointestinal: Yes: WNL, Normal Bowel Sounds, Soft, Abdomen, Obese Extremities: Yes: Other (LUE in a brace) Labs: CBC, BMP 01/30/18 06:30 01/30/18 06:30 INR, PTT INR 1.13 (0.82-1.09) 01/29/18 09:50 Problem List - Problems (1) Distal radial fracture Assessment/Plan: Fx lt distal radius No surgical intervention at this time as per ortho Cont brace Code(s): S52.509A - UNSP FRACTURE OF THE LOWER END OF UNSP RADIUS, INIT Qualifiers: Encounter type: initial encounter (2) UTI (urinary tract infection) Assessment/Plan: Cont IV antibxs Urine culture (+) for lactose fermenting bacilli Follow final urine culture Code(s): N39.0 - URINARY TRACT INFECTION, SITE NOT SPECIFIED Qualifiers: Urinary tract infection type: acute cystitis (3) DVT (deep venous thrombosis) Assessment/Plan: Cont lovenox Code(s): I82.409 - ACUTE EMBOLISM AND THOMBOS UNSP DEEP VN UNSP LOWER EXTREMITY Qualifiers: DVT location: lower extremity Affected thrombotic vein of extremity: popliteal Chronicity: acute Laterality: left Qualified Code(s): I82.432 - Acute embolism and thrombosis of left popliteal vein (4) Afib Assessment/Plan: Heart rate controlled Code(s): I48.91 - UNSPECIFIED ATRIAL FIBRILLATION Qualifiers: Atrial fibrillation type: paroxysmal Qualified Code(s): I48.0 - Paroxysmal atrial fibrillation (5) Anemia Assessment/Plan: Multifactorial Monitor H/H Code(s): D64.9 - ANEMIA, UNSPECIFIED (6) CHF (congestive heart failure) Code(s): I50.9 - HEART FAILURE, UNSPECIFIED (7) Diabetes Code(s): E11.9 - TYPE 2 DIABETES MELLITUS WITHOUT COMPLICATIONS Qualifiers: Diabetes mellitus type: type 2 (8) HLD (hyperlipidemia) Code(s): E78.5 - HYPERLIPIDEMIA, UNSPECIFIED (9) HTN (hypertension) Code(s): I10 - ESSENTIAL (PRIMARY) HYPERTENSION Qualifiers: Hypertension type: essential hypertension Qualified Code(s): I10 - Essential (primary) hypertension (10) Pericarditis Code(s): I31.9 - DISEASE OF PERICARDIUM, UNSPECIFIED Qualifiers: Pericarditis type: unspecified type
[2018-01-31] MEDS ORDERED: PT OWN MED DRAWER 7, Y5N ONE ×2 (05:59→10:16)
[2018-01-31] MEDS: INSULIN SLIDING SCALE (NOVOLOG) 1 VIAL SQ SCH ×4 (06:48→22:37)
[2018-01-31] MEDS: INSULIN (LEVEMIR) 100 UNITS/ML UNITS SQ SCH (06:48)
[2018-01-31] MEDS: morphine SULFATE 4 MG/ML VIAL IVPUSH PRN ×2 (06:53→19:04)
--- NOTE | 2018-01-31 09:51 | PN ---
Progress Note (short form) - Note Progress Note: Ortho Pt seen and examined Left wrist- + swelling, + ttp, dcr rom, nvi a/p Cast applied today May move and use fingers as tolerated elevation pain control will follow d/w Dr. Horn
[2018-01-31] MEDS: ERTAPENEM SODIUM 1 GM in SODIUM CHLORIDE 100 ML IVPB SCH (10:23)
[2018-01-31] MEDS: TIMOLOL 0.5% OPHTHALMIC SOL 5 ML BOTTLE OU SCH ×2 (10:23→22:34)
[2018-01-31] MEDS: COLCHICINE 0.6 MG TABLET (FP) PO SCH ×2 (10:23→22:36)
[2018-01-31] MEDS: DORZOLAMIDE 2% HCL OPHTHALMIC SOLUTION 10 ML BOTTLE OU SCH ×2 (10:23→22:34)
[2018-01-31] MEDS: predniSONE 1 MG TABLET (FP) PO SCH (10:23)
[2018-01-31] MEDS: CLOPIDOGREL BISULFATE 75 MG TABLET (FP) PO SCH (10:23)
[2018-01-31] MEDS: CARVEDILOL 25 MG TABLET (FP) PO SCH ×2 (10:23→22:36)
[2018-01-31] MEDS: FUROSEMIDE 40 MG TABLET (FP) PO SCH (10:23)
[2018-01-31] MEDS: HYDROXYCHLOROQUINE SO4 200 MG TABLET (FP) PO SCH (10:23)
[2018-01-31] MEDS: ENOXAPARIN NA (PORCINE) 80 MG/0.8 ML DISP.SYRIN SQ SCH ×2 (10:32→22:35)
--- NOTE | 2018-01-31 11:09 | PN ---
Progress Note, Physician History of Present Illness: patient stable daughter in the room cast on the left hand - Current Medication List Current Medications: Active Medications Carvedilol (Coreg -) 25 mg PO BID [facility] Last Admin: 01/31/18 10:23 Dose: 25 mg Clopidogrel Bisulfate (Plavix -) 75 mg PO DAILY [facility] Last Admin: 01/31/18 10:23 Dose: 75 mg Colchicine (Colcrys -) 0.6 mg PO BID [facility] Last Admin: 01/31/18 10:23 Dose: 0.6 mg Diltiazem HCl (Cardizem Cd -) 240 mg PO DAILY [facility] Last Admin: 01/31/18 10:23 Dose: 240 mg Dorzolamide HCl (Trusopt 2%) 1 drop OU BID [facility] Last Admin: 01/31/18 10:23 Dose: 1 drop Enoxaparin Sodium (Lovenox -) 70 mg SQ BID [facility] Last Admin: 01/31/18 10:32 Dose: 70 mg Furosemide (Lasix -) 40 mg PO DAILY [facility] Last Admin: 01/31/18 10:23 Dose: 40 mg Hydroxychloroquine Sulfate (Plaquenil -) 200 mg PO DAILY [facility] Last Admin: 01/31/18 10:23 Dose: 200 mg Ertapenem 1 gm/ Sodium (Chloride) 100 mls @ 200 mls/hr IVPB DAILY [facility] PRN Reason: Protocol Last Admin: 01/31/18 10:23 Dose: 200 mls/hr Insulin Aspart (Novolog Vial Sliding Scale -) 1 vial SQ ACHS [facility] PRN Reason: Protocol Last Admin: 01/31/18 06:48 Dose: Not Given Insulin Detemir (Levemir Vial) 20 units SQ AM [facility] Last Admin: 01/31/18 06:48 Dose: 20 units Latanoprost (Xalatan 0.005% Eye Drops -) 1 drop OU HS [facility] Last Admin: 01/30/18 21:33 Dose: 1 drop Morphine Sulfate (Morphine Sulfate) 2 mg IVPUSH Q6H PRN PRN Reason: PAIN LEVEL 1-5 Last Admin: 01/31/18 06:53 Dose: 2 mg Prednisone (Deltasone -) 1 mg PO DAILY [facility] Last Admin: 01/31/18 10:23 Dose: 1 mg Timolol Maleate (Timoptic 0.5%) 1 drop OU BID [facility] Last Admin: 01/31/18 10:23 Dose: 1 drop - Objective Vital Signs: Vital Signs Temperature 99.3 F 01/30/18 16:30 Pulse Rate 63 01/30/18 16:30 Respiratory Rate 18 01/30/18 21:00 Blood Pressure 144/63 01/30/18 16:30 O2 Sat by Pulse Oximetry (%) 97 01/30/18 21:00 Constitutional: Yes: No Distress, Calm Cardiovascular: Yes: S1, S2 Respiratory: Yes: Regular, CTA Bilaterally Gastrointestinal: Yes: Normal Bowel Sounds, Soft Musculoskeletal: Yes: WNL Extremities: Yes: Other (cast on left hand) Neurological: Yes: Alert, Oriented Psychiatric: Yes: Alert, Oriented Labs: CBC, BMP 01/30/18 06:30 01/30/18 06:30 INR, PTT INR 1.13 (0.82-1.09) 01/29/18 09:50 Assessment/Plan Problem List - Problems (1) Distal radial fracture Code(s): S52.509A - UNSP FRACTURE OF THE LOWER END OF UNSP RADIUS, INIT Qualifiers: Encounter type: initial encounter (2) UTI (urinary tract infection) Code(s): N39.0 - URINARY TRACT INFECTION, SITE NOT SPECIFIED Qualifiers: Urinary tract infection type: acute cystitis (3) DVT (deep venous thrombosis) Code(s): I82.409 - ACUTE EMBOLISM AND THOMBOS UNSP DEEP VN UNSP LOWER EXTREMITY Qualifiers: DVT location: lower extremity Affected thrombotic vein of extremity: popliteal Chronicity: acute Laterality: left Qualified Code(s): I82.432 - Acute embolism and thrombosis of left popliteal vein (4) Pericarditis Code(s): I31.9 - DISEASE OF PERICARDIUM, UNSPECIFIED Qualifiers: Pericarditis type: unspecified type (5) Afib Code(s): I48.91 - UNSPECIFIED ATRIAL FIBRILLATION Qualifiers: Atrial fibrillation type: paroxysmal Qualified Code(s): I48.0 - Paroxysmal atrial fibrillation (6) Anemia Code(s): D64.9 - ANEMIA, UNSPECIFIED (7) Diabetes Code(s): E11.9 - TYPE 2 DIABETES MELLITUS WITHOUT COMPLICATIONS Qualifiers: Diabetes mellitus type: type 2 (8) HLD (hyperlipidemia) Code(s): E78.5 - HYPERLIPIDEMIA, UNSPECIFIED (9) HTN (hypertension) Code(s): I10 - ESSENTIAL (PRIMARY) HYPERTENSION Qualifiers: Hypertension type: essential hypertension Qualified Code(s): I10 - Essential (primary) hypertension (10) CHF (congestive heart failure) Code(s): I50.9 - HEART FAILURE, UNSPECIFIED i am suspecting patient has uti symptoms again.past history of esbl plan continue abx await for identification of the bacteria rest as per ortho cardio on case rest as per primary team
[2018-01-31] MEDS ORDERED: INSULIN (NOVOLOG) ASPART 100 UNITS/ML 10ML VIAL ONE (11:37)
[2018-01-31] MEDS: ACETAMINOPHEN 325 MG TABLET (FP) PO PRN ×2 (15:13→22:36)
--- NOTE | 2018-01-31 19:41 | PN ---
Progress Note, Physician History of Present Illness: No new complaints - Current Medication List Current Medications: Active Medications Acetaminophen (Tylenol -) 650 mg PO Q6H PRN PRN Reason: PAIN LEVEL 1-7 Last Admin: 01/31/18 15:13 Dose: 650 mg Carvedilol (Coreg -) 25 mg PO BID [facility] Last Admin: 01/31/18 10:23 Dose: 25 mg Clopidogrel Bisulfate (Plavix -) 75 mg PO DAILY [facility] Last Admin: 01/31/18 10:23 Dose: 75 mg Colchicine (Colcrys -) 0.6 mg PO BID [facility] Last Admin: 01/31/18 10:23 Dose: 0.6 mg Diltiazem HCl (Cardizem Cd -) 240 mg PO DAILY [facility] Last Admin: 01/31/18 10:23 Dose: 240 mg Docusate Sodium (Colace -) 100 mg PO TID [facility] Dorzolamide HCl (Trusopt 2%) 1 drop OU BID [facility] Last Admin: 01/31/18 10:23 Dose: 1 drop Enoxaparin Sodium (Lovenox -) 70 mg SQ BID [facility] Last Admin: 01/31/18 10:32 Dose: 70 mg Furosemide (Lasix -) 40 mg PO DAILY [facility] Last Admin: 01/31/18 10:23 Dose: 40 mg Hydroxychloroquine Sulfate (Plaquenil -) 200 mg PO DAILY [facility] Last Admin: 01/31/18 10:23 Dose: 200 mg Ertapenem 1 gm/ Sodium (Chloride) 100 mls @ 200 mls/hr IVPB DAILY [facility] PRN Reason: Protocol Last Admin: 01/31/18 10:23 Dose: 200 mls/hr Insulin Aspart (Novolog Vial Sliding Scale -) 1 vial SQ ACHS [facility] PRN Reason: Protocol Last Admin: 01/31/18 18:10 Dose: 2 units Insulin Detemir (Levemir Vial) 20 units SQ AM [facility] Last Admin: 01/31/18 06:48 Dose: 20 units Latanoprost (Xalatan 0.005% Eye Drops -) 1 drop OU HS [facility] Last Admin: 01/30/18 21:33 Dose: 1 drop Morphine Sulfate (Morphine Sulfate) 2 mg IVPUSH Q6H PRN PRN Reason: PAIN LEVEL 1-5 Last Admin: 01/31/18 19:04 Dose: 2 mg Prednisone (Deltasone -) 1 mg PO DAILY [facility] Last Admin: 01/31/18 10:23 Dose: 1 mg Timolol Maleate (Timoptic 0.5%) 1 drop OU BID [facility] Last Admin: 01/31/18 10:23 Dose: 1 drop - Objective Vital Signs: Vital Signs Temperature 98.5 F 01/31/18 15:54 Pulse Rate 62 01/31/18 15:54 Respiratory Rate 20 01/31/18 15:54 Blood Pressure 132/60 01/31/18 15:54 O2 Sat by Pulse Oximetry (%) 93 L 01/31/18 09:00 Constitutional: Yes: Well Nourished Neck: Yes: WNL, Supple Cardiovascular: Yes: WNL, Regular Rate and Rhythm Respiratory: Yes: WNL, Regular, CTA Bilaterally Gastrointestinal: Yes: WNL, Normal Bowel Sounds, Soft Extremities: Yes: Other (LUE in a brace) Labs: CBC, BMP 01/30/18 06:30 01/30/18 06:30 INR, PTT INR 1.13 (0.82-1.09) 01/29/18 09:50 Problem List - Problems (1) Distal radial fracture Assessment/Plan: Fx lt distal radius No surgical intervention at this time as per ortho Cast applied to LUE PT eval Code(s): S52.509A - UNSP FRACTURE OF THE LOWER END OF UNSP RADIUS, INIT Qualifiers: Encounter type: initial encounter (2) UTI (urinary tract infection) Assessment/Plan: Cont IV antibxs Urine culture (+) for lactose fermenting bacilli Follow final urine culture Code(s): N39.0 - URINARY TRACT INFECTION, SITE NOT SPECIFIED Qualifiers: Urinary tract infection type: acute cystitis (3) DVT (deep venous thrombosis) Assessment/Plan: Cont lovenox Code(s): I82.409 - ACUTE EMBOLISM AND THOMBOS UNSP DEEP VN UNSP LOWER EXTREMITY Qualifiers: DVT location: lower extremity Affected thrombotic vein of extremity: popliteal Chronicity: acute Laterality: left Qualified Code(s): I82.432 - Acute embolism and thrombosis of left popliteal vein (4) Afib Assessment/Plan: Heart rate controlled Code(s): I48.91 - UNSPECIFIED ATRIAL FIBRILLATION Qualifiers: Atrial fibrillation type: paroxysmal Qualified Code(s): I48.0 - Paroxysmal atrial fibrillation (5) Anemia Code(s): D64.9 - ANEMIA, UNSPECIFIED (6) CHF (congestive heart failure) Code(s): I50.9 - HEART FAILURE, UNSPECIFIED (7) Diabetes Code(s): E11.9 - TYPE 2 DIABETES MELLITUS WITHOUT COMPLICATIONS Qualifiers: Diabetes mellitus type: type 2 (8) HLD (hyperlipidemia) Code(s): E78.5 - HYPERLIPIDEMIA, UNSPECIFIED (9) HTN (hypertension) Code(s): I10 - ESSENTIAL (PRIMARY) HYPERTENSION Qualifiers: Hypertension type: essential hypertension Qualified Code(s): I10 - Essential (primary) hypertension (10) Pericarditis Assessment/Plan: Cont prednisone for another 4 days Code(s): I31.9 - DISEASE OF PERICARDIUM, UNSPECIFIED Qualifiers: Pericarditis type: unspecified type
[2018-01-31] MEDS: LATANOPROST 0.005% OPHTH SOLN 2.5ML BOTTLE OU SCH (22:35)
[2018-01-31] MEDS: DOCUSATE SODIUM 100 MG CAPSULE (FP) PO SCH (22:36)
[2018-01-31] MEDS ORDERED: ACETAMINOPHEN 325 MG TABLET (FP) PO PRN (23:07)
[2018-02-01] MEDS: INSULIN SLIDING SCALE (NOVOLOG) 1 VIAL SQ SCH ×3 (06:57→18:11)
[2018-02-01] MEDS: INSULIN (LEVEMIR) 100 UNITS/ML UNITS SQ SCH (06:59)
[2018-02-01] MEDS: DOCUSATE SODIUM 100 MG CAPSULE (FP) PO SCH ×3 (07:01→21:42)
[2018-02-01 08:28] LABS: HEMATOCRIT 31.9 % (32.4-45.2); HEMOGLOBIN 10.3 GM/dL (10.7-15.3); MCH 28.8 pg (25.7-33.7); MCHC 32.3 g/dl (32.0-36.0); MEAN CELL VOLUME 89.3 fl (80-96); PLATELET COUNT 287 K/MM3 (134-434); RBC 3.58 M/mm3 (3.60-5.2); RDW 17.9 % (11.6-15.6); WHITE BLOOD COUNT 5.3 K/mm3 (4.0-10.0)
[2018-02-01 08:55] LABS: ALBUMIN 2.7 g/dl (3.4-5.0); ANION GAP 12 (8-16); BLOOD UREA NITROGEN 29 mg/dL (7-18); CALCIUM 9.1 mg/dL (8.5-10.1); CHLORIDE 102 mmol/L (98-107); CO2 28 mmol/L (21-32); GLUCOSE,RANDOM 99 mg/dL (74-106); POTASSIUM 3.7 mmol/L (3.5-5.1); SGOT/AST 41 U/L (15-37); SGPT/ALT 44 U/L (12-78); SODIUM 142 mmol/L (136-145)
[2018-02-01 08:56] LABS: ALK PHOS 93 U/L (45-117); BILIRUBIN,TOTAL 0.5 mg/dL (0.2-1.0); CREATININE 1.3 mg/dL (0.55-1.02); TOT PROT 6.2 g/dl (6.4-8.2)
[2018-02-01] MEDS ORDERED: PT OWN MED DRAWER 7, Y5N ONE ×2 (09:54→21:34)
[2018-02-01] MEDS: ERTAPENEM SODIUM 1 GM in SODIUM CHLORIDE 100 ML IVPB SCH (09:57)
[2018-02-01] MEDS: COLCHICINE 0.6 MG TABLET (FP) PO SCH ×2 (09:58→21:42)
[2018-02-01] MEDS: CARVEDILOL 25 MG TABLET (FP) PO SCH ×2 (09:58→21:42)
[2018-02-01] MEDS: CLOPIDOGREL BISULFATE 75 MG TABLET (FP) PO SCH (09:58)
[2018-02-01] MEDS: FUROSEMIDE 40 MG TABLET (FP) PO SCH (09:58)
[2018-02-01] MEDS: HYDROXYCHLOROQUINE SO4 200 MG TABLET (FP) PO SCH (09:59)
[2018-02-01] MEDS: ENOXAPARIN NA (PORCINE) 80 MG/0.8 ML DISP.SYRIN SQ SCH ×2 (09:59→22:00)
[2018-02-01] MEDS: TIMOLOL 0.5% OPHTHALMIC SOL 5 ML BOTTLE OU SCH ×2 (10:00→21:56)
[2018-02-01] MEDS: DORZOLAMIDE 2% HCL OPHTHALMIC SOLUTION 10 ML BOTTLE OU SCH ×2 (10:00→21:54)
[2018-02-01] MEDS: predniSONE 1 MG TABLET (FP) PO SCH (10:01)
[2018-02-01] MEDS: ACETAMINOPHEN 325 MG TABLET (FP) PO PRN ×3 (10:54→21:41)
--- NOTE | 2018-02-01 12:14 | PN ---
Progress Note, Physician History of Present Illness: patient stable no new issues cx result noted comfortable - Current Medication List Current Medications: Active Medications Acetaminophen (Tylenol -) 650 mg PO Q6H PRN PRN Reason: PAIN LEVEL 1-7 Last Admin: 02/01/18 10:54 Dose: 650 mg Carvedilol (Coreg -) 25 mg PO BID [facility] Last Admin: 02/01/18 09:58 Dose: 25 mg Clopidogrel Bisulfate (Plavix -) 75 mg PO DAILY [facility] Last Admin: 02/01/18 09:58 Dose: 75 mg Colchicine (Colcrys -) 0.6 mg PO BID [facility] Last Admin: 02/01/18 09:58 Dose: 0.6 mg Diltiazem HCl (Cardizem Cd -) 240 mg PO DAILY [facility] Last Admin: 02/01/18 09:58 Dose: 240 mg Docusate Sodium (Colace -) 100 mg PO TID [facility] Last Admin: 02/01/18 07:01 Dose: 100 mg Dorzolamide HCl (Trusopt 2%) 1 drop OU BID [facility] Last Admin: 02/01/18 10:00 Dose: 1 drop Enoxaparin Sodium (Lovenox -) 70 mg SQ BID [facility] Last Admin: 02/01/18 09:59 Dose: 70 mg Furosemide (Lasix -) 40 mg PO DAILY [facility] Last Admin: 02/01/18 09:58 Dose: 40 mg Hydroxychloroquine Sulfate (Plaquenil -) 200 mg PO DAILY [facility] Last Admin: 02/01/18 09:59 Dose: 200 mg Ertapenem 1 gm/ Sodium (Chloride) 100 mls @ 200 mls/hr IVPB DAILY [facility] PRN Reason: Protocol Last Admin: 02/01/18 09:57 Dose: 200 mls/hr Insulin Aspart (Novolog Vial Sliding Scale -) 1 vial SQ ACHS [facility] PRN Reason: Protocol Last Admin: 02/01/18 06:57 Dose: Not Given Insulin Detemir (Levemir Vial) 20 units SQ AM [facility] Last Admin: 02/01/18 06:59 Dose: 20 units Latanoprost (Xalatan 0.005% Eye Drops -) 1 drop OU HS [facility] Last Admin: 01/31/18 22:35 Dose: 1 drop Prednisone (Deltasone -) 1 mg PO DAILY [facility] Last Admin: 03/27/18 10:01 Dose: 1 mg Timolol Maleate (Timoptic 0.5%) 1 drop OU BID [facility] Last Admin: 02/01/18 10:00 Dose: 1 drop - Objective Vital Signs: Vital Signs Temperature 98.8 F 02/01/18 12:05 Pulse Rate 68 02/01/18 12:05 Respiratory Rate 17 02/01/18 12:05 Blood Pressure 138/70 02/01/18 12:05 O2 Sat by Pulse Oximetry (%) 93 L 01/31/18 21:00 Constitutional: Yes: No Distress, Calm Neck: Yes: Supple Cardiovascular: Yes: S1, S2 Respiratory: Yes: CTA Bilaterally Gastrointestinal: Yes: Normal Bowel Sounds, Soft Musculoskeletal: Yes: WNL Extremities: Yes: WNL Neurological: Yes: Alert, Oriented Psychiatric: Yes: Alert, Oriented Labs: CBC, BMP 02/01/18 07:00 02/01/18 07:00 INR, PTT INR 1.13 (0.82-1.09) 01/29/18 09:50 Assessment/Plan Problem List - Problems (1) Distal radial fracture Code(s): S52.509A - UNSP FRACTURE OF THE LOWER END OF UNSP RADIUS, INIT Qualifiers: Encounter type: initial encounter (2) UTI (urinary tract infection) Code(s): N39.0 - URINARY TRACT INFECTION, SITE NOT SPECIFIED Qualifiers: Urinary tract infection type: acute cystitis (3) DVT (deep venous thrombosis) Code(s): I82.409 - ACUTE EMBOLISM AND THOMBOS UNSP DEEP VN UNSP LOWER EXTREMITY Qualifiers: DVT location: lower extremity Affected thrombotic vein of extremity: popliteal Chronicity: acute Laterality: left Qualified Code(s): I82.432 - Acute embolism and thrombosis of left popliteal vein (4) Pericarditis Code(s): I31.9 - DISEASE OF PERICARDIUM, UNSPECIFIED Qualifiers: Pericarditis type: unspecified type (5) Afib Code(s): I48.91 - UNSPECIFIED ATRIAL FIBRILLATION Qualifiers: Atrial fibrillation type: paroxysmal Qualified Code(s): I48.0 - Paroxysmal atrial fibrillation (6) Anemia Code(s): D64.9 - ANEMIA, UNSPECIFIED (7) Diabetes Code(s): E11.9 - TYPE 2 DIABETES MELLITUS WITHOUT COMPLICATIONS Qualifiers: Diabetes mellitus type: type 2 (8) HLD (hyperlipidemia) Code(s): E78.5 - HYPERLIPIDEMIA, UNSPECIFIED (9) HTN (hypertension) Code(s): I10 - ESSENTIAL (PRIMARY) HYPERTENSION Qualifiers: Hypertension type: essential hypertension Qualified Code(s): I10 - Essential (primary) hypertension (10) CHF (congestive heart failure) Code(s): I50.9 - HEART FAILURE, UNSPECIFIED i am suspecting patient has uti symptoms again.past history of esbl patient has esbl will need 2 weeks of total abx rest continue current mgmt patient stable
[2018-02-01] MEDS ORDERED: INSULIN (NOVOLOG) ASPART 100 UNITS/ML 10ML VIAL ONE (13:13)
--- NOTE | 2018-02-01 18:31 | CONSULT ---
Consult - text type - Consultation Consultation Note: NEUROLOGY CONSULTATION is greatly appreciated: Events and CT scans reviewed. Patient examined with her daughter at the bedside. 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 Seen by me 10/10/17 with SOB, increasing weakness and failure to thrive. 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 Coumadin caused readmission with left calf DVT. Now on Plavix, lovonox and prednisone. Recently in [place] developed urinary incontinence, dizziness and fell ambulating to the bathroom with left wrist fracture and right occipital trauma without LOC Now on antibiotics for UTI. CT of head x 2 (reviewed): Old left Internal capsule lacunar infarct, moderate atrophy. No traumatic changes. ANGELES: Right occipital swelling. Full neck ROM. No bruits. Cor Irreg. s/p PPM. Left calf sl swelling and discoloration. - Yolanda's NEURO: MS normal according to her daughter. - frontal release speech sl hesitant. Full franz. Min right facial droop. Decreased tongue BRANDI's. Gag OK Right drift. Decreased grasp and BRANDI's on right. Left finger movt's are normal. Leg strength normal. brisk reflexes. Right Babinski. Normal touch in feet. IMP: Stable left cerebral dysfunction due to old left internal capsule CVA...unchanged from 10/10/17. Toxic-metabolic encephalopathy due to UTI. SUGGEST: Cont. plavix and lovonox. Hematology consultation. Begin bedside PT and ambulate as soon as possible. Continue antibiotics and hydration. Thank you very much, Kurtis Stanley MD
[2018-02-01] MEDS: LATANOPROST 0.005% OPHTH SOLN 2.5ML BOTTLE OU SCH (21:55)
[2018-02-01] MEDS ORDERED: morphine SULFATE 4 MG/ML VIAL IVPUSH ONE (22:15)
[2018-02-02] MEDS: INSULIN SLIDING SCALE (NOVOLOG) 1 VIAL SQ SCH ×5 (00:44→22:55)
--- NOTE | 2018-02-02 01:05 | PN ---
Progress Note, Physician History of Present Illness: no new complaints - Current Medication List Current Medications: Active Medications Acetaminophen (Tylenol -) 650 mg PO Q6H PRN PRN Reason: PAIN LEVEL 1-7 Last Admin: 02/01/18 21:41 Dose: 650 mg Carvedilol (Coreg -) 25 mg PO BID [facility] Last Admin: 02/01/18 21:42 Dose: 25 mg Clopidogrel Bisulfate (Plavix -) 75 mg PO DAILY [facility] Last Admin: 02/01/18 09:58 Dose: 75 mg Colchicine (Colcrys -) 0.6 mg PO BID [facility] Last Admin: 02/01/18 21:42 Dose: 0.6 mg Diltiazem HCl (Cardizem Cd -) 240 mg PO DAILY [facility] Last Admin: 02/01/18 09:58 Dose: 240 mg Docusate Sodium (Colace -) 100 mg PO TID [facility] Last Admin: 02/01/18 21:42 Dose: 100 mg Dorzolamide HCl (Trusopt 2%) 1 drop OU BID [facility] Last Admin: 02/01/18 21:54 Dose: 1 drop Enoxaparin Sodium (Lovenox -) 70 mg SQ BID [facility] Last Admin: 02/01/18 22:00 Dose: 70 mg Furosemide (Lasix -) 40 mg PO DAILY [facility] Last Admin: 02/01/18 09:58 Dose: 40 mg Hydroxychloroquine Sulfate (Plaquenil -) 200 mg PO DAILY [facility] Last Admin: 02/01/18 09:59 Dose: 200 mg Ertapenem 1 gm/ Sodium (Chloride) 100 mls @ 200 mls/hr IVPB DAILY [facility] PRN Reason: Protocol Last Admin: 02/01/18 09:57 Dose: 200 mls/hr Insulin Aspart (Novolog Vial Sliding Scale -) 1 vial SQ ACHS [facility] PRN Reason: Protocol Last Admin: 02/02/18 00:44 Dose: Not Given Insulin Detemir (Levemir Vial) 20 units SQ AM [facility] Last Admin: 02/01/18 06:59 Dose: 20 units Latanoprost (Xalatan 0.005% Eye Drops -) 1 drop OU HS [facility] Last Admin: 02/01/18 21:55 Dose: 1 drop Prednisone (Deltasone -) 1 mg PO DAILY [facility] Last Admin: 02/01/18 10:01 Dose: 1 mg Timolol Maleate (Timoptic 0.5%) 1 drop OU BID [facility] Last Admin: 02/01/18 21:56 Dose: 1 drop - Objective Vital Signs: Vital Signs Temperature 97.8 F 02/01/18 20:45 Pulse Rate 62 02/01/18 20:45 Respiratory Rate 18 02/01/18 20:45 Blood Pressure 130/60 02/01/18 20:45 O2 Sat by Pulse Oximetry (%) 93 L 02/01/18 12:00 Labs: CBC, BMP 02/01/18 07:00 02/01/18 07:00 INR, PTT INR 1.13 (0.82-1.09) 01/29/18 09:50 Problem List - Problems (1) Distal radial fracture Code(s): S52.509A - UNSP FRACTURE OF THE LOWER END OF UNSP RADIUS, INIT Qualifiers: Encounter type: initial encounter (2) UTI (urinary tract infection) Code(s): N39.0 - URINARY TRACT INFECTION, SITE NOT SPECIFIED Qualifiers: Urinary tract infection type: acute cystitis (3) DVT (deep venous thrombosis) Code(s): I82.409 - ACUTE EMBOLISM AND THOMBOS UNSP DEEP VN UNSP LOWER EXTREMITY Qualifiers: DVT location: lower extremity Affected thrombotic vein of extremity: popliteal Chronicity: acute Laterality: left Qualified Code(s): I82.432 - Acute embolism and thrombosis of left popliteal vein (4) Afib Code(s): I48.91 - UNSPECIFIED ATRIAL FIBRILLATION Qualifiers: Atrial fibrillation type: paroxysmal Qualified Code(s): I48.0 - Paroxysmal atrial fibrillation (5) Anemia Code(s): D64.9 - ANEMIA, UNSPECIFIED (6) CHF (congestive heart failure) Code(s): I50.9 - HEART FAILURE, UNSPECIFIED (7) Diabetes Code(s): E11.9 - TYPE 2 DIABETES MELLITUS WITHOUT COMPLICATIONS Qualifiers: Diabetes mellitus type: type 2 (8) HLD (hyperlipidemia) Code(s): E78.5 - HYPERLIPIDEMIA, UNSPECIFIED (9) HTN (hypertension) Code(s): I10 - ESSENTIAL (PRIMARY) HYPERTENSION Qualifiers: Hypertension type: essential hypertension Qualified Code(s): I10 - Essential (primary) hypertension (10) Pericarditis Code(s): I31.9 - DISEASE OF PERICARDIUM, UNSPECIFIED Qualifiers: Pericarditis type: unspecified type Assessment/Plan (1) Distal radial fracture Assessment/Plan: Fx lt distal radius No surgical intervention at this time as per ortho Cast applied to LUE PT eval Code(s): S52.509A - UNSP FRACTURE OF THE LOWER END OF UNSP RADIUS, INIT Qualifiers: Encounter type: initial encounter (2) UTI (urinary tract infection) Assessment/Plan: Cont IV antibxs Urine culture (+) for lactose fermenting bacilli Follow final urine culture Code(s): N39.0 - URINARY TRACT INFECTION, SITE NOT SPECIFIED Qualifiers: Urinary tract infection type: acute cystitis (3) DVT (deep venous thrombosis) Assessment/Plan: Cont lovenox Code(s): I82.409 - ACUTE EMBOLISM AND THOMBOS UNSP DEEP VN UNSP LOWER EXTREMITY Qualifiers: DVT location: lower extremity Affected thrombotic vein of extremity: popliteal Chronicity: acute Laterality: left Qualified Code(s): I82.432 - Acute embolism and thrombosis of left popliteal vein (4) Afib Assessment/Plan: Heart rate controlled Code(s): I48.91 - UNSPECIFIED ATRIAL FIBRILLATION Qualifiers: Atrial fibrillation type: paroxysmal Qualified Code(s): I48.0 - Paroxysmal atrial fibrillation (5) Anemia Code(s): D64.9 - ANEMIA, UNSPECIFIED (6) CHF (congestive heart failure) Code(s): I50.9 - HEART FAILURE, UNSPECIFIED (7) Diabetes Code(s): E11.9 - TYPE 2 DIABETES MELLITUS WITHOUT COMPLICATIONS Qualifiers: Diabetes mellitus type: type 2 (8) HLD (hyperlipidemia) Code(s): E78.5 - HYPERLIPIDEMIA, UNSPECIFIED (9) HTN (hypertension) Code(s): I10 - ESSENTIAL (PRIMARY) HYPERTENSION Qualifiers: Hypertension type: essential hypertension Qualified Code(s): I10 - Essential (primary) hypertension (10) Pericarditis Assessment/Plan: Cont prednisone for another 4 days Code(s): I31.9 - DISEASE OF PERICARDIUM, UNSPECIFIED Qualifiers: Pericarditis type: unspecified type
[2018-02-02] MEDS: DOCUSATE SODIUM 100 MG CAPSULE (FP) PO SCH ×3 (05:48→21:50)
[2018-02-02] MEDS: INSULIN (LEVEMIR) 100 UNITS/ML UNITS SQ SCH (05:59)
[2018-02-02] MEDS: ACETAMINOPHEN 325 MG TABLET (FP) PO PRN ×3 (06:43→20:46)
[2018-02-02] MEDS ORDERED: PT OWN MED DRAWER 7, Y5N ONE ×2 (10:27→21:44)
[2018-02-02] MEDS: FUROSEMIDE 40 MG TABLET (FP) PO SCH (10:39)
[2018-02-02] MEDS: CARVEDILOL 25 MG TABLET (FP) PO SCH ×2 (10:39→21:50)
[2018-02-02] MEDS: predniSONE 1 MG TABLET (FP) PO SCH (10:39)
[2018-02-02] MEDS: COLCHICINE 0.6 MG TABLET (FP) PO SCH ×2 (10:40→21:50)
[2018-02-02] MEDS: CLOPIDOGREL BISULFATE 75 MG TABLET (FP) PO SCH (10:40)
[2018-02-02] MEDS: ENOXAPARIN NA (PORCINE) 80 MG/0.8 ML DISP.SYRIN SQ SCH ×2 (10:40→21:49)
[2018-02-02] MEDS: HYDROXYCHLOROQUINE SO4 200 MG TABLET (FP) PO SCH (10:43)
[2018-02-02] MEDS: TIMOLOL 0.5% OPHTHALMIC SOL 5 ML BOTTLE OU SCH ×2 (10:43→21:51)
[2018-02-02] MEDS: DORZOLAMIDE 2% HCL OPHTHALMIC SOLUTION 10 ML BOTTLE OU SCH ×2 (10:44→21:51)
[2018-02-02] MEDS ORDERED: PICC LINE 8 ML FLUSH PROTOCOL IVPUSH PRN (10:50)
--- NOTE | 2018-02-02 11:05 | PN ---
Progress Note, Physician History of Present Illness: doing well no issues daughter in room again discussed with daughter in detail the plan - Current Medication List Current Medications: Active Medications Acetaminophen (Tylenol -) 650 mg PO Q6H PRN PRN Reason: PAIN LEVEL 1-7 Last Admin: 02/02/18 06:43 Dose: 650 mg Carvedilol (Coreg -) 25 mg PO BID [facility] Last Admin: 02/01/18 21:42 Dose: 25 mg Clopidogrel Bisulfate (Plavix -) 75 mg PO DAILY [facility] Last Admin: 02/01/18 09:58 Dose: 75 mg Colchicine (Colcrys -) 0.6 mg PO BID [facility] Last Admin: 02/01/18 21:42 Dose: 0.6 mg Diltiazem HCl (Cardizem Cd -) 240 mg PO DAILY [facility] Last Admin: 02/01/18 09:58 Dose: 240 mg Docusate Sodium (Colace -) 100 mg PO TID [facility] Last Admin: 02/02/18 05:48 Dose: 100 mg Dorzolamide HCl (Trusopt 2%) 1 drop OU BID [facility] Last Admin: 02/01/18 21:54 Dose: 1 drop Enoxaparin Sodium (Lovenox -) 70 mg SQ BID [facility] Last Admin: 02/01/18 22:00 Dose: 70 mg Furosemide (Lasix -) 40 mg PO DAILY [facility] Last Admin: 02/01/18 09:58 Dose: 40 mg Hydroxychloroquine Sulfate (Plaquenil -) 200 mg PO DAILY [facility] Last Admin: 02/01/18 09:59 Dose: 200 mg IV Flush (Picc Line Flush) 8 ml IVPUSH PRN PRN PRN Reason: Protocol Ertapenem 1 gm/ Sodium (Chloride) 100 mls @ 200 mls/hr IVPB DAILY [facility] PRN Reason: Protocol Last Admin: 02/01/18 09:57 Dose: 200 mls/hr Insulin Aspart (Novolog Vial Sliding Scale -) 1 vial SQ ACHS [facility] PRN Reason: Protocol Last Admin: 02/02/18 05:59 Dose: Not Given Insulin Detemir (Levemir Vial) 20 units SQ AM [facility] Last Admin: 02/02/18 05:59 Dose: 20 units Latanoprost (Xalatan 0.005% Eye Drops -) 1 drop OU HS [facility] Last Admin: 02/01/18 21:55 Dose: 1 drop Prednisone (Deltasone -) 1 mg PO DAILY [facility] Last Admin: 02/01/18 10:01 Dose: 1 mg Timolol Maleate (Timoptic 0.5%) 1 drop OU BID [facility] Last Admin: 02/01/18 21:56 Dose: 1 drop - Objective Vital Signs: Vital Signs Temperature 98.4 F 02/02/18 06:00 Pulse Rate 61 02/02/18 06:00 Respiratory Rate 20 02/02/18 06:00 Blood Pressure 142/70 02/02/18 06:00 O2 Sat by Pulse Oximetry (%) 93 L 02/01/18 21:00 Constitutional: Yes: No Distress, Calm Cardiovascular: Yes: Regular Rate and Rhythm Respiratory: Yes: Regular, CTA Bilaterally Gastrointestinal: Yes: Normal Bowel Sounds, Soft Musculoskeletal: Yes: WNL Extremities: Yes: WNL Neurological: Yes: Alert, Oriented Psychiatric: Yes: Alert, Oriented Labs: CBC, BMP 02/01/18 07:00 02/01/18 07:00 INR, PTT INR 1.13 (0.82-1.09) 01/29/18 09:50 Assessment/Plan Problem List - Problems (1) Distal radial fracture Code(s): S52.509A - UNSP FRACTURE OF THE LOWER END OF UNSP RADIUS, INIT Qualifiers: Encounter type: initial encounter (2) UTI (urinary tract infection) Code(s): N39.0 - URINARY TRACT INFECTION, SITE NOT SPECIFIED Qualifiers: Urinary tract infection type: acute cystitis (3) DVT (deep venous thrombosis) Code(s): I82.409 - ACUTE EMBOLISM AND THOMBOS UNSP DEEP VN UNSP LOWER EXTREMITY Qualifiers: DVT location: lower extremity Affected thrombotic vein of extremity: popliteal Chronicity: acute Laterality: left Qualified Code(s): I82.432 - Acute embolism and thrombosis of left popliteal vein (4) Pericarditis Code(s): I31.9 - DISEASE OF PERICARDIUM, UNSPECIFIED Qualifiers: Pericarditis type: unspecified type (5) Afib Code(s): I48.91 - UNSPECIFIED ATRIAL FIBRILLATION Qualifiers: Atrial fibrillation type: paroxysmal Qualified Code(s): I48.0 - Paroxysmal atrial fibrillation (6) Anemia Code(s): D64.9 - ANEMIA, UNSPECIFIED (7) Diabetes Code(s): E11.9 - TYPE 2 DIABETES MELLITUS WITHOUT COMPLICATIONS Qualifiers: Diabetes mellitus type: type 2 (8) HLD (hyperlipidemia) Code(s): E78.5 - HYPERLIPIDEMIA, UNSPECIFIED (9) HTN (hypertension) Code(s): I10 - ESSENTIAL (PRIMARY) HYPERTENSION Qualifiers: Hypertension type: essential hypertension Qualified Code(s): I10 - Essential (primary) hypertension (10) CHF (congestive heart failure) Code(s): I50.9 - HEART FAILURE, UNSPECIFIED continue abx as planned 2 weeks of abx total rest as per the team
[2018-02-02] MEDS: ERTAPENEM SODIUM 1 GM in SODIUM CHLORIDE 100 ML IVPB SCH (11:09)
[2018-02-02] MEDS ORDERED: INSULIN (NOVOLOG) ASPART 100 UNITS/ML 10ML VIAL ONE (12:27)
[2018-02-02] MEDS: LATANOPROST 0.005% OPHTH SOLN 2.5ML BOTTLE OU SCH (21:51)
--- NOTE | 2018-02-02 22:38 | PN ---
Progress Note, Physician History of Present Illness: Pt had PIC line placement today - Current Medication List Current Medications: Active Medications Acetaminophen (Tylenol -) 650 mg PO Q6H PRN PRN Reason: PAIN LEVEL 1-7 Last Admin: 02/02/18 20:46 Dose: 650 mg Carvedilol (Coreg -) 25 mg PO BID [facility] Last Admin: 02/02/18 21:50 Dose: 25 mg Clopidogrel Bisulfate (Plavix -) 75 mg PO DAILY [facility] Last Admin: 02/02/18 10:40 Dose: 75 mg Colchicine (Colcrys -) 0.6 mg PO BID [facility] Last Admin: 02/02/18 21:50 Dose: 0.6 mg Diltiazem HCl (Cardizem Cd -) 240 mg PO DAILY [facility] Last Admin: 02/02/18 10:39 Dose: 240 mg Docusate Sodium (Colace -) 100 mg PO TID [facility] Last Admin: 02/02/18 21:50 Dose: 100 mg Dorzolamide HCl (Trusopt 2%) 1 drop OU BID [facility] Last Admin: 02/02/18 21:51 Dose: 1 drop Enoxaparin Sodium (Lovenox -) 70 mg SQ BID [facility] Last Admin: 02/02/18 21:49 Dose: 70 mg Furosemide (Lasix -) 40 mg PO DAILY [facility] Last Admin: 02/02/18 10:39 Dose: 40 mg Hydroxychloroquine Sulfate (Plaquenil -) 200 mg PO DAILY [facility] Last Admin: 02/02/18 10:43 Dose: 200 mg IV Flush (Picc Line Flush) 8 ml IVPUSH PRN PRN PRN Reason: Protocol Ertapenem 1 gm/ Sodium (Chloride) 100 mls @ 200 mls/hr IVPB DAILY [facility] PRN Reason: Protocol Last Admin: 02/02/18 11:09 Dose: 200 mls/hr Insulin Aspart (Novolog Vial Sliding Scale -) 1 vial SQ ACHS [facility] PRN Reason: Protocol Last Admin: 02/02/18 18:27 Dose: Not Given Insulin Detemir (Levemir Vial) 20 units SQ AM [facility] Last Admin: 02/02/18 05:59 Dose: 20 units Latanoprost (Xalatan 0.005% Eye Drops -) 1 drop OU HS [facility] Last Admin: 02/02/18 21:51 Dose: 1 drop Prednisone (Deltasone -) 1 mg PO DAILY [facility] Last Admin: 02/02/18 10:39 Dose: 1 mg Timolol Maleate (Timoptic 0.5%) 1 drop OU BID [facility] Last Admin: 02/02/18 21:51 Dose: 1 drop - Objective Vital Signs: Vital Signs Temperature 98.6 F 02/02/18 21:57 Pulse Rate 62 02/02/18 21:57 Respiratory Rate 18 02/02/18 21:57 Blood Pressure 130/62 02/02/18 21:57 O2 Sat by Pulse Oximetry (%) 93 L 02/02/18 12:39 Neck: Yes: WNL, Supple Cardiovascular: Yes: WNL, Regular Rate and Rhythm Respiratory: Yes: WNL, Regular, CTA Bilaterally Gastrointestinal: Yes: WNL, Normal Bowel Sounds, Soft Extremities: Yes: Other (LUE in a cast) Labs: CBC, BMP 02/01/18 07:00 02/01/18 07:00 INR, PTT INR 1.13 (0.82-1.09) 01/29/18 09:50 Problem List - Problems (1) Distal radial fracture Assessment/Plan: Fx lt distal radius No surgical intervention at this time as per ortho Cast applied to LUE Cont PT Code(s): S52.509A - UNSP FRACTURE OF THE LOWER END OF UNSP RADIUS, INIT Qualifiers: Encounter type: initial encounter (2) UTI (urinary tract infection) Assessment/Plan: Cont IV antibx for another 14 days Urine culture (+) for lactose fermenting bacilli Code(s): N39.0 - URINARY TRACT INFECTION, SITE NOT SPECIFIED Qualifiers: Urinary tract infection type: acute cystitis (3) DVT (deep venous thrombosis) Assessment/Plan: Cont lovenox Code(s): I82.409 - ACUTE EMBOLISM AND THOMBOS UNSP DEEP VN UNSP LOWER EXTREMITY Qualifiers: DVT location: lower extremity Affected thrombotic vein of extremity: popliteal Chronicity: acute Laterality: left Qualified Code(s): I82.432 - Acute embolism and thrombosis of left popliteal vein (4) Afib Assessment/Plan: Heart rate controlled Code(s): I48.91 - UNSPECIFIED ATRIAL FIBRILLATION Qualifiers: Atrial fibrillation type: paroxysmal Qualified Code(s): I48.0 - Paroxysmal atrial fibrillation (5) Anemia Code(s): D64.9 - ANEMIA, UNSPECIFIED (6) CHF (congestive heart failure) Code(s): I50.9 - HEART FAILURE, UNSPECIFIED (7) Diabetes Code(s): E11.9 - TYPE 2 DIABETES MELLITUS WITHOUT COMPLICATIONS Qualifiers: Diabetes mellitus type: type 2 (8) HLD (hyperlipidemia) Code(s): E78.5 - HYPERLIPIDEMIA, UNSPECIFIED (9) HTN (hypertension) Code(s): I10 - ESSENTIAL (PRIMARY) HYPERTENSION Qualifiers: Hypertension type: essential hypertension Qualified Code(s): I10 - Essential (primary) hypertension (10) Pericarditis Code(s): I31.9 - DISEASE OF PERICARDIUM, UNSPECIFIED Qualifiers: Pericarditis type: unspecified type
[2018-02-03] MEDS: ACETAMINOPHEN 325 MG TABLET (FP) PO PRN (06:38)
[2018-02-03] MEDS: DOCUSATE SODIUM 100 MG CAPSULE (FP) PO SCH (06:40)
[2018-02-03] MEDS: INSULIN (LEVEMIR) 100 UNITS/ML UNITS SQ SCH (06:40)
[2018-02-03] MEDS: INSULIN SLIDING SCALE (NOVOLOG) 1 VIAL SQ SCH ×2 (06:41→12:39)
[2018-02-03 10:04] VITALS: BP 182/84; PULSE 62; TEMP 97.8
[2018-02-03] MEDS: CARVEDILOL 25 MG TABLET (FP) PO SCH (10:11)
[2018-02-03] MEDS: COLCHICINE 0.6 MG TABLET (FP) PO SCH (10:11)
[2018-02-03] MEDS: ERTAPENEM SODIUM 1 GM in SODIUM CHLORIDE 100 ML IVPB SCH (10:12)
[2018-02-03] MEDS: ENOXAPARIN NA (PORCINE) 80 MG/0.8 ML DISP.SYRIN SQ SCH (10:12)
[2018-02-03] MEDS: FUROSEMIDE 40 MG TABLET (FP) PO SCH (10:12)
[2018-02-03] MEDS: predniSONE 1 MG TABLET (FP) PO SCH (10:12)
[2018-02-03] MEDS: HYDROXYCHLOROQUINE SO4 200 MG TABLET (FP) PO SCH (10:13)
[2018-02-03] MEDS: CLOPIDOGREL BISULFATE 75 MG TABLET (FP) PO SCH (10:13)
[2018-02-03] MEDS: TIMOLOL 0.5% OPHTHALMIC SOL 5 ML BOTTLE OU SCH (10:14)
[2018-02-03] MEDS: DORZOLAMIDE 2% HCL OPHTHALMIC SOLUTION 10 ML BOTTLE OU SCH (10:14)
--- NOTE | 2018-02-04 14:49 | DS ---
Physical Examination Vital Signs: Vital Signs Temperature 97.8 F 02/03/18 10:00 Pulse Rate 62 02/03/18 10:00 Respiratory Rate 18 02/03/18 10:00 Blood Pressure 182/84 02/03/18 10:00 O2 Sat by Pulse Oximetry (%) 93 L 02/02/18 21:00 Constitutional: Yes: No Distress Cardiovascular: Yes: Regular Rate and Rhythm Respiratory: Yes: Regular, CTA Bilaterally Gastrointestinal: Yes: Normal Bowel Sounds Labs: CBC, BMP 02/01/18 07:00 02/01/18 07:00 Discharge Summary Reason For Visit: UTI,FX OF DISTAL END OF RADIOUS, INJURY (1) Distal radial fracture (2) UTI (urinary tract infection) (3) DVT (deep venous thrombosis) (4) Afib (5) Anemia (6) CHF (congestive heart failure) (7) Diabetes (8) HLD (hyperlipidemia) (9) HTN (hypertension) (10) Pericarditis Hospital Course: Pt is a 72 y/o female w/ PMH significant for HTN, paroxsymal afib, CHF, pericardial effusion/pericarditis, diabetes, CVA, YAQUELIN, DVT(s/p hematoma LLE). Pt also was recently treated for ESBL w/ IV antibxs and was dc'ed to a SNF. Pt now sent from SNF due to a fall after trying to go to the bathroom. Pt says she turned and fell. She used her left hand to try and brace her fall and now has left hand and wrist pain. She twisted fell backwards and hit the rt side of her head. Pt had ct scan head in the ER wc did not show any acute pathology. XRAY of her lt upper extremity showed lt distal radial fx. Over the course of stay she improved significantly and was d/c'd to nursing facility. Condition: Stable - Instructions Diet, Activity, Other Instructions: 2 gram sodium and 2200 calorie ADA diet IV antibiotics to be stopped on 02/14/18 should be the last dose Prednisone should be stopped on 02/05/18 Patient should see orthopedist Dr Horn in 1 week Referrals: Sony Johnson MD [Staff Physician] - Disposition: [facility] - Home Medications Comprehensive Discharge Medication List: Ambulatory Orders Clopidogrel Bisulfate [Plavix -] 75 mg PO DAILY 10/09/17 Diltiazem HCl [Diltiazem 24Hr Cd] 240 mg PO DAILY 10/09/17 Carvedilol [Coreg -] 25 mg PO BID tablet 12/13/17 Dorzolamide HCl [Trusopt 2% -] 1 drop OU BID drops 12/13/17 Latanoprost 0.005% Eye Drops [Xalatan 0.005% Eye Drops -] 1 drop OU HS drops Timolol 0.5% [Timoptic 0.5%] 1 drop OU BID drops 12/13/17 Colchicine [Colcrys -] 0.6 mg PO BID tablet 01/05/18 Furosemide [Lasix -] 40 mg PO DAILY tablet 01/05/18 Hydroxychloroquine So4 [Plaquenil -] 200 mg PO DAILY tablet 01/05/18 Insulin (Levemir) [Levemir Vial] 20 units SQ AM ml 01/05/18 Potassium Chloride [K-Dur -] 40 meq PO DAILY tablet.er 01/05/18 Alprazolam [Xanax] 0.5 mg PO HS PRN MDD 2 TABS 01/11/18 Insulin Sliding Scale [Novolog Vial Sliding Scale -] 0 units SQ ACHS PRN Enoxaparin [Lovenox -] 70 mg SQ BID disp.syrin 01/24/18 Insulin Sliding Scale [Novolog Vial Sliding Scale -] 1 vial SQ ACHS units 01/24 predniSONE [Deltasone -] 1 mg PO DAILY 01/29/18 Acetaminophen [Tylenol .Regular Strength -] 650 mg PO Q4H PRN tablet 02/02/18 Docusate Sodium [Colace -] 100 mg PO TID capsule 02/02/18 Ertapenem Sodium [Invanz -] 1 gm IVPB DAILY vial 02/02/18 Insulin Sliding Scale [Novolog Vial Sliding Scale -] 1 vial SQ ACHS units 02/02 Picc Line Flush [Picc Line Flush -] 8 ml IVPUSH PRN PRN ml 02/02/18
== END 2018-02-03 12:39 | DRG 562 ==
LOC: JER 09:11 → JERBED 12:33 → J8W 17:25
PROVIDERS: ADMIT Internal Medicine; ATTEND Internal Medicine
PROC: 02HV33Z Insertion of Infusion Device into Superior Vena Cava, Percutaneous Approach (ICD-10-PCS; principal; 2018-02-02)
PROC: B548ZZA Ultrasonography of Superior Vena Cava, Guidance (ICD-10-PCS; 2018-02-02)
DX: S52.502A Unspecified fracture of the lower end of left radius, initial encounter for closed fracture (principal); G92 Toxic encephalopathy; N39.0 Urinary tract infection, site not specified; I31.3 Pericardial effusion (noninflammatory); I31.9 Disease of pericardium, unspecified; I69.351 Hemiplegia and hemiparesis following cerebral infarction affecting right dominant side; Z79.4 Long term (current) use of insulin; I48.0 Paroxysmal atrial fibrillation; E11.9 Type 2 diabetes mellitus without complications; Z86.718 Personal history of other venous thrombosis and embolism; Z91.010 Allergy to peanuts; Z88.0 Allergy status to penicillin; Z91.013 Allergy to seafood; D64.9 Anemia, unspecified; I11.0 Hypertensive heart disease with heart failure; I50.9 Heart failure, unspecified; I25.10 Atherosclerotic heart disease of native coronary artery without angina pectoris; M10.9 Gout, unspecified; W19.XXXA Unspecified fall, initial encounter; Y93.89 Activity, other specified; Y92.128 Other place in nursing home as the place of occurrence of the external cause; Y99.8 Other external cause status; Z95.0 Presence of cardiac pacemaker; Z87.891 Personal history of nicotine dependence
CPT/HCPCS: 36415; 36569; 70450-TC; 71045-TC-FY; 72100-TC-FY; 72125-TC; 72170-TC-FY; 73110-TC-LR-FY; 73130-TC-LR-FY; 77001-TC-FY; 80053; 81003; 81015; 82550; 82962; 84484; 85025; 85027; 85610; 87086; 87186; 93005; 93010; 94010; 97116-GP; 97161-GP; 99284-25; C1751; J0131

== ENCOUNTER 2018-04-27 10:37 | Inpatient (IN) | payer OTHER ==
[2018-04-27] MEDS ORDERED: SODIUM CHLORIDE 0.9% 1000 ML INFUS.BAG IV ONE ×2 (11:03→16:39)
[2018-04-27] MEDS ORDERED: ONDANSETRON 4 MG/2 ML VIAL IVPUSH ONE (11:04)
[2018-04-27] MEDS ORDERED: FAMOTIDINE 20 MG/50 ML IVPB 20 MG/50 ML MG IVPB ONE ×2 (11:04→11:51)
--- NOTE | 2018-04-27 11:29 | PDOC ---
History of Present Illness - General History Source: Patient, Family Exam Limitations: No Limitations - History of Present Illness Initial Comments: 04/27/18 11:30 The patient is a 72 year old female, with a significant past medical history of hypertension, hyperlipidemia, diabetes, IBS, GERD, CHF, AFib, pericarditis, pericardial effusion, AAA(5 cm), s/p pacemaker, and CVA( residual right arm/leg weakness), who presents to the emergency department from [facility] with abdominal pain and diarrhea for 3 days. Per daughter, patient has had episodes of watery diarrhea (nonbloody) for the past 3 days. Since last night, daughter reports the patient has had 9 episodes of diarrhea. Patient endorses episodes of nausea and nonbloody/nonbilious vomiting yesterday. Daughter reports patient was febrile today, with TMax of 102F. Patient was given Tylenol with minimal relief of fever. Per daughter patient has reported LUQ/epigastric abdominal pain and decreased appetite. Patient reports intermittent diarrhea with her IBS , but states todays symptoms are different from those episodes. Patient denies any chills, headache, or dizziness. She denies any dysuria, hematuria, frequency , or urgency. She denies any chest pain, shortness of breath, diaphoresis, or palpitations. She denies any recent travel or sick contacts. Allergies: Aspirin, Penicillins, Diclofenac, iv contrast Past Surgical History: AAA repair, pacemaker Social History: Non smoker. No ETOH or recreational drug use. 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) GI Disorders: Yes (constipation, GERD,IBS) HTN: Yes Hypercholesterolemia: Yes - Surgical History Cardiac Surgery: Yes (PACEMAKER (2010) ; cath 09/24) - Immunization History Immunization Up to Date: Yes - Suicide/Smoking/Psychosocial Hx Smoking History: Former smoker Have you smoked in the past 12 months: No Number of Cigarettes Smoked Daily: 5 If you are a former smoker, when did you quit?: 1993 Information on smoking cessation initiated: No Hx Alcohol Use: No Drug/Substance Use Hx: No Substance Use Type: None Hx Substance Use Treatment: No <Renee Whyte - Last Filed: 04/27/18 17:41> - Past Medical History Allergies/Adverse Reactions: Allergies Allergy/AdvReac Type Severity Reaction Status Date / Time aspirin Allergy Severe Verified 04/27/18 10:40 Penicillins Allergy Severe Verified 04/27/18 10:40 peanut Allergy Unknown Verified 04/27/18 10:40 diclofenac Allergy Verified 04/27/18 10:40 shellfish derived Allergy Verified 04/27/18 10:40 lactose AdvReac Verified 04/27/18 10:40 peanut Allergy Unknown Rash Uncoded 04/27/18 10:40 iv contrast Allergy Uncoded 04/27/18 10:40 Home Medications: Ambulatory Orders Clopidogrel Bisulfate [Plavix -] 75 mg PO DAILY 10/09/17 Diltiazem HCl [Diltiazem 24Hr Cd] 240 mg PO DAILY 10/09/17 Carvedilol [Coreg -] 25 mg PO BID tablet 12/13/17 Dorzolamide HCl [Trusopt 2% -] 1 drop OU BID drops 12/13/17 Latanoprost 0.005% Eye Drops [Xalatan 0.005% Eye Drops -] 1 drop OU HS drops Timolol 0.5% [Timoptic 0.5%] 1 drop OU BID drops 12/13/17 Colchicine [Colcrys -] 0.6 mg PO BID tablet 01/05/18 Furosemide [Lasix -] 40 mg PO DAILY tablet 01/05/18 Hydroxychloroquine So4 [Plaquenil -] 200 mg PO DAILY tablet 01/05/18 Insulin (Levemir) [Levemir Vial] 20 units SQ AM ml 01/05/18 Potassium Chloride [K-Dur -] 40 meq PO DAILY tablet.er 01/05/18 Acetaminophen [Extra Strength Non-Aspirin] 500 mg PO Q12H 04/27/18 Acetaminophen [Tylenol .Regular Strength -] 325 mg PO Q8H PRN 04/27/18 Albuterol 2.5/Ipratropium 0.5 [Duoneb -] 1 amp NEB QID 04/27/18 Ascorbic Acid [Vitamin C] 500 mg PO DAILY 04/27/18 Enoxaparin Sodium [Lovenox] 120 mg SQ DAILY 04/27/18 Enoxaparin [Lovenox -] 70 mg SQ DAILY 04/27/18 Ferrous Sulfate 325 mg PO DAILY 04/27/18 Insulin Detemir [Levemir Flextouch] 10 unit SQ DAILY 04/27/18 Insulin Sliding Scale [Novolog Vial Sliding Scale -] 0 ml SQ ACHS 04/27/18 Lactobacillus Acidophilus [Bacid -] 1 each PO BID 04/27/18 Loperamide HCl [Imodium A-D] 1 tab PO ASDIR 04/27/18 Meclizine HCl 25 mg PO TID 04/27/18 Metoclopramide HCl [Reglan] 5 mg PO TID 04/27/18 Polyethylene Glycol 3350 [Miralax (For Daily Use) -] 17 gm PO DAILY PRN Simethicone 80 mg PO TID 04/27/18 Tramadol HCl 50 mg PO Q8H PRN 04/27/18 Review of Systems - Review of Systems Able to Perform ROS?: Yes Comments:: 04/27/18 11:30 GENERAL/CONSTITUTIONAL: +Fever, decreased appetite. No chills. No weakness. HEAD, EYES, EARS, NOSE AND THROAT: No change in vision. No ear pain or discharge. No sore throat. CARDIOVASCULAR: No chest pain or shortness of breath. RESPIRATORY: No cough, wheezing, or hemoptysis. GASTROINTESTINAL: +LUQ/Epigastric abdominal pain, nausea, vomiting, diarrhea. No constipation, melena, or hematochezia GENITOURINARY: No dysuria, frequency, or change in urination. MUSCULOSKELETAL: No joint or muscle swelling or pain. No neck or back pain. SKIN: No rash NEUROLOGIC: No headache, vertigo, loss of consciousness, or change in strength/ sensation. ENDOCRINE: No increased thirst. No abnormal weight change. HEMATOLOGIC/LYMPHATIC: No anemia, easy bleeding, or history of blood clots. ALLERGIC/IMMUNOLOGIC: No hives or skin allergy. <Mary Keller - Last Filed: 04/27/18 17:39> *Physical Exam - Vital Signs Last Vital Signs Temp Pulse Resp BP Pulse Ox 99.2 F 70 20 157/63 100 04/27/18 10:41 04/27/18 10:41 04/27/18 10:41 04/27/18 10:41 04/27/18 10:41 - Physical Exam Comments: 04/27/18 11:30 GENERAL: Awake, alert, and fully oriented, in no acute distress HEAD: No signs of trauma EYES: PERRLA, EOMI, sclera anicteric, conjunctiva clear ENT: Auricles normal inspection, hearing grossly normal, nares patent. Moist mucosa NECK: Normal ROM, supple, no lymphadenopathy, JVD, or masses LUNGS: Breath sounds equal, clear to auscultation bilaterally. No wheezes, and no crackles HEART: Regular rate and rhythm, normal S1 and S2, no murmurs, rubs or gallops ABDOMEN: +LUQ/Epigastric tenderness to palpation. Soft, normoactive bowel sounds. No guarding, no rebound. No masses EXTREMITIES: Normal range of motion, no edema. No clubbing or cyanosis. No cords, erythema, or tenderness. DP/PT pulses 2+ and symmetric. Warm and well perfused. NEUROLOGICAL: Moves all extremities. Normal speech. SKIN: Warm, Dry, normal turgor, no rashes or lesions noted. <Mary Keller - Last Filed: 04/27/18 17:39> - Vital Signs Last Vital Signs Temp Pulse Resp BP Pulse Ox 99.2 F 70 20 157/63 100 04/27/18 10:41 04/27/18 10:41 04/27/18 10:41 04/27/18 10:41 04/27/18 10:41 <Renee Whyte - Last Filed: 04/27/18 17:41> Heart Score/ECG Review #1 General ECG Interpretation: Sinus Rhythm, Normal Rate, Normal Intervals, No acute ischemic changes (TWI I, AvL A) Compared to previous ECG there are: No significant change (compare 01/29/18) <Renee Whyte - Last Filed: 04/27/18 17:41> ED Treatment Course - LABORATORY CBC & Chemistry Diagram: 04/27/18 11:50 04/27/18 11:50 - RADIOLOGY Radiograph Interpretation: 04/27/18 16:14 EXAM: CT Abdomen and Pelvis INTERPRETED BY: Dr. Khanna REVIEWED BY: Dr. Whyte IMPRESSION: Diffuse and moderately severe pancolitis without evidence of perforation or obstruction seen. 4.6 cm distal abdominal aortic aneurysm without evidence of dissection, collateral leak. Markedly small globally atrophic right kidney. Rule out renal artery stenosis. Pericardial effusion. Other findings as above. Clinical correlation advised. <Mary Keller - Last Filed: 04/27/18 17:39> - LABORATORY CBC & Chemistry Diagram: 04/27/18 11:50 04/27/18 11:50 - RADIOLOGY Radiology Studies Ordered: Category Date Time Status ABDOMEN & PELVIS CT WITH CONTR [CT] Stat CT Scan 04/27/18 11:03 Ordered <Renee Whyte - Last Filed: 04/27/18 17:41> Medical Decision Making - Medical Decision Making 04/27/18 17:01 First call placed to Dr. Goddard at 17:00. Awaiting call back. Second call placed to Dr. Goddard at 17:39. Case discussed at this time. <Mary Keller - Last Filed: 04/27/18 17:39> - Medical Decision Making 04/27/18 11:27 72-year-old female history of hypertension, diabetes, hyperlipidemia, A. fib, CHF, irritable bowel syndrome currently in a nursing facility here today complaining of 3 days of loose watery stool greater than 10 times per day all nonbloody. She is also complaining of some upper abdominal pain. Patient did have a fever of 102 on the day prior describes nausea and small emesis in the day previous. Does have a history of positional vertigo denies recent vertigo as a cause of her symptoms. No urinary complaints no previous abdominal surgeries On exam patient is awake alert cardiac and lung exam is unremarkable abdomen is soft there is left upper quadrant and epigastric tenderness no rebound no guarding. Differential diagnosis includes infectious colitis, electrolyte abnormality, dehydration, pancreatitis diverticulitis. Plan CT abdomen and pelvis labs cleaning CBC, CMP, lipase, IV hydration antiemetics and an acid and reassess we will send C. difficile due to the fact the patient is institutionalized <Renee Whyte - Last Filed: 04/27/18 17:41> *DC/Admit/Observation/Transfer - Attestations Scribe Attestion: 04/27/18 11:31 Documentation prepared by Mary Keller, acting as medical associate for Renee Whyte MD. <Mary Keller - Last Filed: 04/27/18 17:39> - Discharge Dispostion Decision to Admit order: Yes <Renee Whyte - Last Filed: 04/27/18 17:41> Diagnosis at time of Disposition: Colitis - Referrals Referrals: Espinoza Clark MD [Primary Care Provider] - - Patient Instructions - Post Discharge Activity
[2018-04-27] MEDS ORDERED: ONDANSETRON 4 MG/2 ML VIAL ONE (11:50)
[2018-04-27 12:06] LABS: BASO % 0.7 % (0-2.0); EOS % 1.2 % (0-4.5); HEMATOCRIT 34.7 % (32.4-45.2); HEMOGLOBIN 11.7 GM/dL (10.7-15.3); LYMPH % 20.4 % (8-40); MCH 30.5 pg (25.7-33.7); MCHC 33.7 g/dl (32.0-36.0); MEAN CELL VOLUME 90.5 fl (80-96); MEAN PLT VOLUME 8.9 fl (7.5-11.1); MONO % 12.2 % (3.8-10.2); NEUT % 65.5 % (42.8-82.8); PLATELET COUNT 230 K/MM3 (134-434); RBC 3.84 M/mm3 (3.60-5.2); WHITE BLOOD COUNT 10.8 K/mm3 (4.0-10.0)
[2018-04-27 13:40] LABS: ALBUMIN 2.8 g/dl (3.4-5.0); ALK PHOS 111 U/L (45-117); ANION GAP 9 (8-16); BILIRUBIN,TOTAL 0.6 mg/dL (0.2-1.0); BLOOD UREA NITROGEN 14 mg/dL (7-18); CALCIUM 9.5 mg/dL (8.5-10.1); CHLORIDE 101 mmol/L (98-107); CO2 28 mmol/L (21-32); CREATININE 1.2 mg/dL (0.55-1.02); GLUCOSE,RANDOM 146 mg/dL (74-106); LIPASE 77 U/L (73-393); SGPT/ALT 34 U/L (12-78); SODIUM 138 mmol/L (136-145); TOT PROT 6.5 g/dl (6.4-8.2)
[2018-04-27 13:42] LABS: POTASSIUM 3.4 mmol/L (3.5-5.1); SGOT/AST 35 U/L (15-37)
--- NOTE | 2018-04-27 16:32 | HP ---
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 Cardiovascular: Yes: AFIB, HTN, Hyperlipdemia, Other (pericarditis Pericardial effusion) Gastrointestinal: Yes: GERD Renal/: Yes: Other (Renal artery stenosis) Heme/Onc: Yes: Other (DVT) Endocrine: Yes: Diabetes Mellitus - Past Surgical History Past Surgical History: Yes: Permanent Pacemaker - Smoking History Smoking history: Former smoker Have you smoked in the past 12 months: No Aproximately how many cigarettes per day: 5 If you are a former smoker, when did you quit?: 1993 - Alcohol/Substance Use Hx Alcohol Use: No - Social History Usual Living Arrangement: Yes: Senior Living ADL: Family Assistance History of Recent Travel: No Home Medications - Allergies Allergies/Adverse Reactions: Allergies Allergy/AdvReac Type Severity Reaction Status Date / Time aspirin Allergy Severe Verified 04/27/18 10:40 Penicillins Allergy Severe Verified 04/27/18 10:40 peanut Allergy Unknown Verified 04/27/18 10:40 diclofenac Allergy Verified 04/27/18 10:40 shellfish derived Allergy Verified 04/27/18 10:40 lactose AdvReac Verified 04/27/18 10:40 peanut Allergy Unknown Rash Uncoded 04/27/18 10:40 iv contrast Allergy Uncoded 04/27/18 10:40 - Home Medications Home Medications: Ambulatory Orders Clopidogrel Bisulfate [Plavix -] 75 mg PO DAILY 10/09/17 Diltiazem HCl [Diltiazem 24Hr Cd] 240 mg PO DAILY 10/09/17 Carvedilol [Coreg -] 25 mg PO BID tablet 12/13/17 Dorzolamide HCl [Trusopt 2% -] 1 drop OU BID drops 12/13/17 Latanoprost 0.005% Eye Drops [Xalatan 0.005% Eye Drops -] 1 drop OU HS drops Timolol 0.5% [Timoptic 0.5%] 1 drop OU BID drops 12/13/17 Colchicine [Colcrys -] 0.6 mg PO BID tablet 01/05/18 Furosemide [Lasix -] 40 mg PO DAILY tablet 01/05/18 Hydroxychloroquine So4 [Plaquenil -] 200 mg PO DAILY tablet 01/05/18 Insulin (Levemir) [Levemir Vial] 20 units SQ AM ml 01/05/18 Potassium Chloride [K-Dur -] 40 meq PO DAILY tablet.er 01/05/18 Acetaminophen [Extra Strength Non-Aspirin] 500 mg PO Q12H 04/27/18 Acetaminophen [Tylenol .Regular Strength -] 325 mg PO Q8H PRN 04/27/18 Albuterol 2.5/Ipratropium 0.5 [Duoneb -] 1 amp NEB QID 04/27/18 Ascorbic Acid [Vitamin C] 500 mg PO DAILY 04/27/18 Enoxaparin Sodium [Lovenox] 120 mg SQ DAILY 04/27/18 Enoxaparin [Lovenox -] 70 mg SQ DAILY 04/27/18 Ferrous Sulfate 325 mg PO DAILY 04/27/18 Insulin Detemir [Levemir Flextouch] 10 unit SQ DAILY 04/27/18 Insulin Sliding Scale [Novolog Vial Sliding Scale -] 0 ml SQ ACHS 04/27/18 Lactobacillus Acidophilus [Bacid -] 1 each PO BID 04/27/18 Loperamide HCl [Imodium A-D] 1 tab PO ASDIR 04/27/18 Meclizine HCl 25 mg PO TID 04/27/18 Metoclopramide HCl [Reglan] 5 mg PO TID 04/27/18 Polyethylene Glycol 3350 [Miralax (For Daily Use) -] 17 gm PO DAILY PRN Simethicone 80 mg PO TID 04/27/18 Tramadol HCl 50 mg PO Q8H PRN 04/27/18 Physical Examination Vital Signs: Vital Signs Temperature 99.2 F 04/27/18 10:41 Pulse Rate 60 04/27/18 13:44 Respiratory Rate 18 04/27/18 13:44 Blood Pressure 139/57 04/27/18 13:44 O2 Sat by Pulse Oximetry (%) 96 04/27/18 13:44 Labs: CBC, BMP 04/27/18 11:50 04/27/18 11:50 Imaging - Results Cat Scan: Report Reviewed (Diffuse and moderately severe pancolitis without evidence of perforation or obstruction seen. 4.6 cm distal abdominal aortic aneurysm without evidence of dissection, collateral leak. Markedly small globally atrophic right kidney. Rule out renal artery stenosis. Pericardial effusion. Other findings as above. Clinical correlation advised.) Problem List - Problems (1) Pancolitis Code(s): K51.00 - ULCERATIVE (CHRONIC) PANCOLITIS WITHOUT COMPLICATIONS (2) Hypertension Code(s): I10 - ESSENTIAL (PRIMARY) HYPERTENSION Qualifiers: Hypertension type: essential hypertension Qualified Code(s): I10 - Essential (primary) hypertension
[2018-04-27] MEDS ORDERED: CIPROFLOXACIN 400 MG/D5W 400 MG/200 ML IVPB IVPB ONE (16:38)
[2018-04-27 16:58] LABS: URINE APPEARANCE CLEAR; URINE BILIRUBIN NEGATIVE (<2.0 mg/dL); URINE COLOR STRAW; URINE GLUCOSE (UA) NEGATIVE (NEGATIVE); URINE KETONE NEGATIVE (NEGATIVE); URINE NITRITE NEGATIVE (NEGATIVE); URINE PROTEIN NEGATIVE (NEGATIVE); URINE UROBILINOGEN NEGATIVE mg/dL (0.2-1.0)
[2018-04-27 17:01] LABS: URINE LEUK ESTERASE 2+ (NEGATIVE)
[2018-04-27 17:03] LABS: EPI CELLS RARE /HPF (FEW); URINE BACTERIA RARE /hpf (NONE SEEN)
[2018-04-28] MEDS ORDERED: POLYETHYLENE GLYCOL 3350 119 GM BTL PO PRN (10:48)
[2018-04-28] MEDS ORDERED: ENOXAPARIN NA (PORCINE) 80 MG/0.8 ML DISP.SYRIN SQ SCH (11:00)
[2018-04-28] MEDS: CLOPIDOGREL BISULFATE 75 MG TABLET (FP) PO SCH (11:43)
[2018-04-28] MEDS: FERROUS SO4 325 MG TABLET (FP) PO SCH (11:43)
[2018-04-28] MEDS: CARVEDILOL 25 MG TABLET (FP) PO SCH ×2 (11:43→21:44)
[2018-04-28] MEDS: ASCORBIC ACID 500 MG TABLET (FP) PO SCH (11:43)
[2018-04-28] MEDS: FUROSEMIDE 40 MG TABLET (FP) PO SCH (11:43)
[2018-04-28] MEDS: POTASSIUM CHLORIDE TABS 20 MEQ TABLET.ER (FP) PO SCH (11:43)
[2018-04-28] MEDS: LACTOBACILLUS ACIDOPHILUS 1 TABLET PO SCH ×2 (11:43→21:44)
--- NOTE | 2018-04-28 11:53 | EKG ---
Test Reason : Blood Pressure : / mmHG Vent. Rate : 060 BPM Atrial Rate : 060 BPM P-R Int : 232 ms QRS Dur : 150 ms QT Int : 454 ms P-R-T Axes : 020 -03 168 degrees QTc Int : 454 ms Atrial-paced rhythm with prolonged AV conduction LEFT BUNDLE BRANCH BLOCK ABNORMAL ECG WHEN COMPARED WITH ECG OF 27-APR-2018 10:54, NONSPECIFIC T WAVE ABNORMALITY HAS REPLACED INVERTED T WAVES IN LATERAL LEADS Confirmed by MONET EMERSON, KE ([id number]) on 04/28/2018 11:52:39 AM Referred By: Confirmed By:KE HEALY MD
[2018-04-28] MEDS: DEXTROSE 5%-0.45% SALINE 1,000 ML IV SCH (11:54)
--- NOTE | 2018-04-28 12:24 | CON.ID ---
Consult Consult Specialty:: infectious diseases Referred by:: Reason for Consultation:: colitis - History of Present Illness Chief Complaint: dirrhoea,fever History of Present Illness: 72 year old female, with a significant past medical history of hypertension, hyperlipidemia, diabetes, IBS, GERD, CHF, AFib, pericarditis, pericardial effusion, AAA(5 cm), s/p pacemaker, and CVA( residual right arm/leg weakness), [facility] was having dirrhoea which has been ongoing for last 4 days with abd cramps Since last night, daughter reports the patient has had 9 episodes of diarrhea. Patient endorses episodes of nausea and nonbloody/nonbilious vomiting yesterday. Daughter reports patient was febrile today, with TMax of 102F. also she continues to c/o of llq pain she currently feels a little better and has not had any bowel moment since she has been admitted according to the daughter she had 2 in the emergency room. 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 Cardio/Vascular: Yes: AFIB, HTN, Hyperlipdemia, Other (pericarditis Pericardial effusion) Gastrointestinal: Yes: GERD Renal/: Yes: Other (Renal artery stenosis) ...: No Endocrine: Yes: Diabetes Mellitus - Past Surgical History Past Surgical History: Yes: Permanent Pacemaker - Alcohol/Substance Use Hx Alcohol Use: No - Smoking History Smoking history: Former smoker Have you smoked in the past 12 months: No Aproximately how many cigarettes per day: 5 If you are a former smoker, when did you quit?: 1993 - Social History ADL: Family Assistance History of Recent Travel: No Home Medications - Allergies Allergies/Adverse Reactions: Allergies Allergy/AdvReac Type Severity Reaction Status Date / Time aspirin Allergy Severe Verified 04/27/18 10:40 Penicillins Allergy Severe Verified 04/27/18 10:40 peanut Allergy Unknown Verified 04/27/18 10:40 diclofenac Allergy Verified 04/27/18 10:40 shellfish derived Allergy Verified 04/27/18 10:40 lactose AdvReac Verified 04/27/18 10:40 peanut Allergy Unknown Rash Uncoded 04/27/18 10:40 iv contrast Allergy Uncoded 04/27/18 10:40 - Home Medications Home Medications: Ambulatory Orders Clopidogrel Bisulfate [Plavix -] 75 mg PO DAILY 10/09/17 Diltiazem HCl [Diltiazem 24Hr Cd] 240 mg PO DAILY 10/09/17 Carvedilol [Coreg -] 25 mg PO BID tablet 12/13/17 Dorzolamide HCl [Trusopt 2% -] 1 drop OU BID drops 12/13/17 Latanoprost 0.005% Eye Drops [Xalatan 0.005% Eye Drops -] 1 drop OU HS drops Timolol 0.5% [Timoptic 0.5%] 1 drop OU BID drops 12/13/17 Colchicine [Colcrys -] 0.6 mg PO BID tablet 01/05/18 Furosemide [Lasix -] 40 mg PO DAILY tablet 01/05/18 Hydroxychloroquine So4 [Plaquenil -] 200 mg PO DAILY tablet 01/05/18 Insulin (Levemir) [Levemir Vial] 20 units SQ AM ml 01/05/18 Potassium Chloride [K-Dur -] 40 meq PO DAILY tablet.er 01/05/18 Acetaminophen [Extra Strength Non-Aspirin] 500 mg PO Q12H 04/27/18 Acetaminophen [Tylenol .Regular Strength -] 325 mg PO Q8H PRN 04/27/18 Albuterol 2.5/Ipratropium 0.5 [Duoneb -] 1 amp NEB QID 04/27/18 Ascorbic Acid [Vitamin C] 500 mg PO DAILY 04/27/18 Enoxaparin Sodium [Lovenox] 120 mg SQ DAILY 04/27/18 Enoxaparin [Lovenox -] 70 mg SQ DAILY 04/27/18 Ferrous Sulfate 325 mg PO DAILY 04/27/18 Insulin Detemir [Levemir Flextouch] 10 unit SQ DAILY 04/27/18 Insulin Sliding Scale [Novolog Vial Sliding Scale -] 0 ml SQ ACHS 04/27/18 Lactobacillus Acidophilus [Bacid -] 1 each PO BID 04/27/18 Loperamide HCl [Imodium A-D] 1 tab PO ASDIR 04/27/18 Meclizine HCl 25 mg PO TID 04/27/18 Metoclopramide HCl [Reglan] 5 mg PO TID 04/27/18 Polyethylene Glycol 3350 [Miralax (For Daily Use) -] 17 gm PO DAILY PRN Simethicone 80 mg PO TID 04/27/18 Tramadol HCl 50 mg PO Q8H PRN 04/27/18 Review of Systems - Review of Systems Constitutional: reports: Fever Eyes: reports: No Symptoms HENT: reports: No Symptoms Neck: reports: No Symptoms Cardiovascular: reports: No Symptoms Respiratory: reports: No Symptoms Gastrointestinal: reports: Abdominal Pain, Diarrhea, Nausea Genitourinary: reports: No Symptoms Musculoskeletal: reports: No Symptoms Integumentary: reports: No Symptoms Neurological: reports: No Symptoms Endocrine: reports: No Symptoms Hematology/Lymphatic: reports: No Symptoms Psychiatric: reports: No Symptoms Physical Exam Vital Signs: Vital Signs Temperature 98.7 F 04/28/18 06:00 Pulse Rate 72 04/28/18 06:00 Respiratory Rate 20 04/28/18 06:00 Blood Pressure 161/69 04/28/18 06:00 O2 Sat by Pulse Oximetry (%) 95 04/28/18 05:00 Constitutional: Yes: Well Nourished, No Distress, Calm Eyes: Yes: Conjunctiva Clear HENT: Yes: Atraumatic, Normocephalic Neck: Yes: Supple, Trachea Midline Cardiovascular: Yes: Regular Rate and Rhythm Respiratory: Yes: Regular, CTA Bilaterally Gastrointestinal: Yes: Soft, Hypoactive Bowel Sounds, Tenderness. No: Tenderness, Rebound Musculoskeletal: Yes: WNL Extremities: Yes: WNL Neurological: Yes: Alert, Oriented Psychiatric: Yes: Alert, Oriented Labs: CBC, BMP 04/27/18 11:50 04/27/18 11:50 Imaging - Results Cat Scan: Report Reviewed, Image Reviewed Assessment/Plan this lady coming in with dirrhoea and fever and ct scan done shows colitis dirrhoea colitis fever abd pain plan will continue flagyl and levaquin hydration close watch on the patient stool for cdiff and ova and parasite once we have the results will decide the final plan
--- NOTE | 2018-04-28 13:04 | CON.GI ---
Consult Consult Specialty:: GI: Covering for Dr. De Los Santos Referred by:: Dr. Goddard Reason for Consultation:: Diarrhea and colitis - History of Present Illness Chief Complaint: Diarrhea History of Present Illness: 72F [place] with diarrhea for 2-3 days. Was on Abx 5 weeks ago for UTI. Is followed by Dr. Delacruz and has outpatient follow-up with him 05/06. he performed EGD and colonoscopy on her 09/03/15 that were both unrevealing. She is on lovenox for hypercoagulable state. CT scan reveals a diffuse colitis. - History Source History Provided By: Patient, Family Member (daughter at bedside), Medical Record - Past Medical History [employer]: Yes: CVA Cardio/Vascular: Yes: AFIB, HTN, Hyperlipdemia, Other (pericarditis Pericardial effusion) Gastrointestinal: Yes: GERD Renal/: Yes: Other (Renal artery stenosis) ...: No Endocrine: Yes: Diabetes Mellitus - Past Surgical History Past Surgical History: Yes: , Permanent Pacemaker - Alcohol/Substance Use Hx Alcohol Use: No - Smoking History Smoking history: Former smoker Have you smoked in the past 12 months: No Aproximately how many cigarettes per day: 5 If you are a former smoker, when did you quit?: 1993 - Social History Usual Living Arrangement: [facility] ADL: Family Assistance Place of : Other History of Recent Travel: No Home Medications - Allergies Allergies/Adverse Reactions: Allergies Allergy/AdvReac Type Severity Reaction Status Date / Time aspirin Allergy Severe Verified 04/27/18 10:40 Penicillins Allergy Severe Verified 04/27/18 10:40 peanut Allergy Unknown Verified 04/27/18 10:40 diclofenac Allergy Verified 04/27/18 10:40 shellfish derived Allergy Verified 04/27/18 10:40 lactose AdvReac Verified 04/27/18 10:40 peanut Allergy Unknown Rash Uncoded 04/27/18 10:40 iv contrast Allergy Uncoded 04/27/18 10:40 - Home Medications Home Medications: Ambulatory Orders Clopidogrel Bisulfate [Plavix -] 75 mg PO DAILY 10/09/17 Diltiazem HCl [Diltiazem 24Hr Cd] 240 mg PO DAILY 10/09/17 Carvedilol [Coreg -] 25 mg PO BID tablet 12/13/17 Dorzolamide HCl [Trusopt 2% -] 1 drop OU BID drops 12/13/17 Latanoprost 0.005% Eye Drops [Xalatan 0.005% Eye Drops -] 1 drop OU HS drops Timolol 0.5% [Timoptic 0.5%] 1 drop OU BID drops 12/13/17 Colchicine [Colcrys -] 0.6 mg PO BID tablet 01/05/18 Furosemide [Lasix -] 40 mg PO DAILY tablet 01/05/18 Hydroxychloroquine So4 [Plaquenil -] 200 mg PO DAILY tablet 01/05/18 Insulin (Levemir) [Levemir Vial] 20 units SQ AM ml 01/05/18 Potassium Chloride [K-Dur -] 40 meq PO DAILY tablet.er 01/05/18 Acetaminophen [Extra Strength Non-Aspirin] 500 mg PO Q12H 04/27/18 Acetaminophen [Tylenol .Regular Strength -] 325 mg PO Q8H PRN 04/27/18 Albuterol 2.5/Ipratropium 0.5 [Duoneb -] 1 amp NEB QID 04/27/18 Ascorbic Acid [Vitamin C] 500 mg PO DAILY 04/27/18 Enoxaparin Sodium [Lovenox] 120 mg SQ DAILY 04/27/18 Enoxaparin [Lovenox -] 70 mg SQ DAILY 04/27/18 Ferrous Sulfate 325 mg PO DAILY 04/27/18 Insulin Detemir [Levemir Flextouch] 10 unit SQ DAILY 04/27/18 Insulin Sliding Scale [Novolog Vial Sliding Scale -] 0 ml SQ ACHS 04/27/18 Lactobacillus Acidophilus [Bacid -] 1 each PO BID 04/27/18 Loperamide HCl [Imodium A-D] 1 tab PO ASDIR 04/27/18 Meclizine HCl 25 mg PO TID 04/27/18 Metoclopramide HCl [Reglan] 5 mg PO TID 04/27/18 Polyethylene Glycol 3350 [Miralax (For Daily Use) -] 17 gm PO DAILY PRN Simethicone 80 mg PO TID 04/27/18 Tramadol HCl 50 mg PO Q8H PRN 04/27/18 Family Disease History - Family Disease History Other Family History: No family h/o colorectal cancer Review of Systems - Review of Systems Constitutional: denies: Fever Cardiovascular: denies: Chest Pain Respiratory: denies: Cough Gastrointestinal: reports: Abdominal Pain, Diarrhea. denies: Melena, Rectal Bleeding, Vomiting Physical Exam-GI Vital Signs: Vital Signs Temperature 98.7 F 04/28/18 06:00 Pulse Rate 72 04/28/18 06:00 Respiratory Rate 20 04/28/18 06:00 Blood Pressure 161/69 04/28/18 06:00 O2 Sat by Pulse Oximetry (%) 95 04/28/18 05:00 Constitutional: Yes: Calm Eyes: No: Sclera Icterus Cardiovascular: Yes: Regular Rate and Rhythm. No: Murmur Respiratory: Yes: CTA Bilaterally Gastrointestinal Inspection: Yes: Scars (pelvic) ...Auscultate: Yes: Normoactive Bowel Sounds ...Palpate: Yes: Tenderness (TTP throughout abdomen) ...Percussion: No: Tympanitic Edema: No (No LE edema) Neurological: Yes: Alert Labs: CBC, BMP 04/27/18 11:50 04/27/18 11:50 Hepatic Panel Total Bilirubin 0.6 mg/dL (0.2-1.0) 04/27/18 11:50 AST 35 U/L (15-37) 04/27/18 11:50 ALT 34 U/L (12-78) 04/27/18 11:50 Alkaline Phosphatase 111 U/L (45-117) 04/27/18 11:50 Albumin 2.8 g/dl (3.4-5.0) L 04/27/18 11:50 Imaging - Results Cat Scan: Report Reviewed, Image Reviewed Problem List - Problems (1) Colitis Assessment/Plan: Given that Ms. Burnette resides at a [place] and had recent Abx exposure, along with acuity of symptoms, CDAD higher in differential and needs to be excluded Would start empiric PO Vanco 125mg PO q 6 hrs Stool for C. Diff toxin / Antigen Stool for culture / O&P Management of electrolyte abnormalities per PMD Avoid Acid suppression Code(s): K52.9 - NONINFECTIVE GASTROENTERITIS AND COLITIS, UNSPECIFIED
[2018-04-28] MEDS: INSULIN SLIDING SCALE (NOVOLOG) 1 VIAL SQ SCH ×3 (13:36→23:05)
[2018-04-28] MEDS: ENOXAPARIN NA (PORCINE) 120 MG/0.8 ML DISP.SYRIN SQ SCH (13:41)
[2018-04-28] MEDS: TIMOLOL 0.5% OPHTHALMIC SOL 5 ML BOTTLE OU SCH ×2 (13:44→21:45)
[2018-04-28] MEDS: DORZOLAMIDE 2% HCL OPHTHALMIC SOLUTION 10 ML BOTTLE OU SCH ×2 (13:46→21:45)
[2018-04-28] MEDS: SIMETHICONE 80 MG TAB.CHEW (FP) PO SCH ×2 (15:13→21:44)
[2018-04-28] MEDS: MECLIZINE HCL 25 MG TABLET (FP) PO SCH ×2 (15:20→21:44)
--- NOTE | 2018-04-28 15:37 | HP ---
Admitting History and Physical - Admission History of Present Illness: Pt is a 72 y/o female, with PMH significant for HTN, HLD, diabetes, IBS, GERD, CHF, AFib, pericarditis, pericardial effusion, AAA(5 cm), YAQUELIN, PPM, and CVA( residual right arm/leg weakness). Pt was sent from [facility] due to multiple episodes of foul smelling diarrhea for the past 4 days. This has been accompanied w/ abdominal pain wc is intermittent. Patient also complains of nausea and nonbloody/nonbilious vomiting yesterday. Daughter reports patient was febrile with temp of 102F. Pt has not had any further diarrhea at this point. CT scan abd/pelvis showed collitis - Past Medical History OVERCASTER: Yes: CVA Cardiovascular: Yes: AFIB, HTN, Hyperlipdemia, Other (pericarditis Pericardial effusion) Gastrointestinal: Yes: GERD Renal/: Yes: Other (Renal artery stenosis) ...: No Heme/Onc: Yes: Other (DVT) Endocrine: Yes: Diabetes Mellitus - Past Surgical History Past Surgical History: Yes: , Permanent Pacemaker - Smoking History Smoking history: Former smoker Have you smoked in the past 12 months: No Aproximately how many cigarettes per day: 5 If you are a former smoker, when did you quit?: 1993 - Alcohol/Substance Use Hx Alcohol Use: No - Social History ADL: Family Assistance History of Recent Travel: No Home Medications - Allergies Allergies/Adverse Reactions: Allergies Allergy/AdvReac Type Severity Reaction Status Date / Time aspirin Allergy Severe Verified 04/27/18 10:40 Penicillins Allergy Severe Verified 04/27/18 10:40 peanut Allergy Unknown Verified 04/27/18 10:40 diclofenac Allergy Verified 04/27/18 10:40 shellfish derived Allergy Verified 04/27/18 10:40 lactose AdvReac Verified 04/27/18 10:40 peanut Allergy Unknown Rash Uncoded 04/27/18 10:40 iv contrast Allergy Uncoded 04/27/18 10:40 - Home Medications Home Medications: Ambulatory Orders Clopidogrel Bisulfate [Plavix -] 75 mg PO DAILY 10/09/17 Diltiazem HCl [Diltiazem 24Hr Cd] 240 mg PO DAILY 10/09/17 Carvedilol [Coreg -] 25 mg PO BID tablet 12/13/17 Dorzolamide HCl [Trusopt 2% -] 1 drop OU BID drops 12/13/17 Latanoprost 0.005% Eye Drops [Xalatan 0.005% Eye Drops -] 1 drop OU HS drops Timolol 0.5% [Timoptic 0.5%] 1 drop OU BID drops 12/13/17 Colchicine [Colcrys -] 0.6 mg PO BID tablet 01/05/18 Furosemide [Lasix -] 40 mg PO DAILY tablet 01/05/18 Hydroxychloroquine So4 [Plaquenil -] 200 mg PO DAILY tablet 01/05/18 Insulin (Levemir) [Levemir Vial] 20 units SQ AM ml 01/05/18 Potassium Chloride [K-Dur -] 40 meq PO DAILY tablet.er 01/05/18 Acetaminophen [Extra Strength Non-Aspirin] 500 mg PO Q12H 04/27/18 Acetaminophen [Tylenol .Regular Strength -] 325 mg PO Q8H PRN 04/27/18 Albuterol 2.5/Ipratropium 0.5 [Duoneb -] 1 amp NEB QID 04/27/18 Ascorbic Acid [Vitamin C] 500 mg PO DAILY 04/27/18 Enoxaparin Sodium [Lovenox] 120 mg SQ DAILY 04/27/18 Enoxaparin [Lovenox -] 70 mg SQ DAILY 04/27/18 Ferrous Sulfate 325 mg PO DAILY 04/27/18 Insulin Detemir [Levemir Flextouch] 10 unit SQ DAILY 04/27/18 Insulin Sliding Scale [Novolog Vial Sliding Scale -] 0 ml SQ ACHS 04/27/18 Lactobacillus Acidophilus [Bacid -] 1 each PO BID 04/27/18 Loperamide HCl [Imodium A-D] 1 tab PO ASDIR 04/27/18 Meclizine HCl 25 mg PO TID 04/27/18 Metoclopramide HCl [Reglan] 5 mg PO TID 04/27/18 Polyethylene Glycol 3350 [Miralax (For Daily Use) -] 17 gm PO DAILY PRN Simethicone 80 mg PO TID 04/27/18 Tramadol HCl 50 mg PO Q8H PRN 04/27/18 Family Disease History - Family Disease History Other Family History: No family h/o colorectal cancer Physical Examination Vital Signs: Vital Signs Temperature 98.7 F 04/28/18 06:00 Pulse Rate 72 04/28/18 06:00 Respiratory Rate 20 04/28/18 06:00 Blood Pressure 161/69 04/28/18 06:00 O2 Sat by Pulse Oximetry (%) 95 04/28/18 05:00 Labs: CBC, BMP 04/27/18 11:50 04/27/18 11:50
[2018-04-28] MEDS: ALBUTEROL SO4 2.5/IPRATROPIUM 0.5 INH SOL 3 ML VIAL.NEB. NEB SCH ×3 (15:44→21:42)
[2018-04-28] MEDS: VANCOMYCIN 250 MG/5 ML ORAL SOLUTION PO SCH (17:35)
[2018-04-28] MEDS ORDERED: PT OWN MED DRAWER 7, Y5N ONE (21:23)
[2018-04-28] MEDS: LATANOPROST 0.005% OPHTH SOLN 2.5ML BOTTLE OU SCH (21:44)
[2018-04-29] MEDS: VANCOMYCIN 250 MG/5 ML ORAL SOLUTION PO SCH ×4 (00:07→17:22)
[2018-04-29] MEDS: DEXTROSE 5%-0.45% SALINE 1,000 ML IV SCH ×2 (03:18→17:41)
[2018-04-29] MEDS: SIMETHICONE 80 MG TAB.CHEW (FP) PO SCH ×3 (06:45→22:40)
[2018-04-29] MEDS: INSULIN SLIDING SCALE (NOVOLOG) 1 VIAL SQ SCH ×4 (06:45→22:41)
[2018-04-29] MEDS: MECLIZINE HCL 25 MG TABLET (FP) PO SCH ×3 (06:45→22:40)
[2018-04-29] MEDS: ALBUTEROL SO4 2.5/IPRATROPIUM 0.5 INH SOL 3 ML VIAL.NEB. NEB SCH ×5 (07:34→21:19)
[2018-04-29] MEDS ORDERED: PT OWN MED DRAWER 7, Y5N ONE ×2 (09:15→14:31)
[2018-04-29] MEDS: FERROUS SO4 325 MG TABLET (FP) PO SCH (09:28)
[2018-04-29] MEDS: CARVEDILOL 25 MG TABLET (FP) PO SCH ×2 (09:28→22:40)
[2018-04-29] MEDS: LACTOBACILLUS ACIDOPHILUS 1 TABLET PO SCH ×2 (09:28→22:40)
[2018-04-29] MEDS: POTASSIUM CHLORIDE TABS 20 MEQ TABLET.ER (FP) PO SCH (09:29)
[2018-04-29] MEDS: ASCORBIC ACID 500 MG TABLET (FP) PO SCH (09:29)
[2018-04-29] MEDS: FUROSEMIDE 40 MG TABLET (FP) PO SCH (09:29)
[2018-04-29] MEDS: ENOXAPARIN NA (PORCINE) 120 MG/0.8 ML DISP.SYRIN SQ SCH (09:29)
[2018-04-29] MEDS: CLOPIDOGREL BISULFATE 75 MG TABLET (FP) PO SCH (09:29)
[2018-04-29] MEDS: TIMOLOL 0.5% OPHTHALMIC SOL 5 ML BOTTLE OU SCH ×2 (09:30→22:40)
[2018-04-29] MEDS: DORZOLAMIDE 2% HCL OPHTHALMIC SOLUTION 10 ML BOTTLE OU SCH ×2 (09:31→22:40)
[2018-04-29 10:55] LABS: BASO % 0.1 % (0-2.0); EOS % 2.6 % (0-4.5); HEMATOCRIT 34.6 % (32.4-45.2); HEMOGLOBIN 11.5 GM/dL (10.7-15.3); MCH 30.5 pg (25.7-33.7); MCHC 33.2 g/dl (32.0-36.0); MEAN CELL VOLUME 91.8 fl (80-96); MEAN PLT VOLUME 8.5 fl (7.5-11.1); MONO % 12.5 % (3.8-10.2); NEUT % 61.8 % (42.8-82.8); PLATELET COUNT 248 K/MM3 (134-434); RBC 3.77 M/mm3 (3.60-5.2); RDW 14.8 % (11.6-15.6); WHITE BLOOD COUNT 6.3 K/mm3 (4.0-10.0)
[2018-04-29 11:34] LABS: ANION GAP 8 (8-16); BLOOD UREA NITROGEN 6 mg/dL (7-18); CALCIUM 8.9 mg/dL (8.5-10.1); CHLORIDE 108 mmol/L (98-107); CO2 25 mmol/L (21-32); GLUCOSE,RANDOM 140 mg/dL (74-106); POTASSIUM 3.5 mmol/L (3.5-5.1); SODIUM 141 mmol/L (136-145)
--- NOTE | 2018-04-29 12:50 | PN ---
GI Progress Note Subjective: No acute events Her daughters at bedside state that she is complaining of more abdominal pain. They also state that their mother is complaining that she is hungry No stool collected as of yet. Had a BM overnight however unable to be collected for evaluation No rectal bleeding and no fevers reportes - Objective Vital Signs: Vital Signs Temperature 98.6 F 04/29/18 09:00 Pulse Rate 64 04/29/18 09:00 Respiratory Rate 20 04/29/18 09:00 Blood Pressure 157/77 04/29/18 09:00 O2 Sat by Pulse Oximetry (%) 95 04/29/18 09:00 Constitutional: Calm Eyes: No: Sclera Icterus Cardiovascular: Yes: Regular Rate and Rhythm. No: Murmur Respiratory: Yes: CTA Bilaterally Gastrointestinal Inspection: No: Distention ...Auscultate: Yes: Hyperactive Bowel Sounds ...Palpate: Yes: Soft, Tenderness (TTP diffusely L>R). No: Firm/Rigid, Guarding , Tenderness, Rebound ...Percussion: No: Tympanitic ...Rectal Exam: Yes: Other (No stool in rectal vault, rectal exam taken as she felt warm: T: 98.6) Edema: No (No LE edema) Neurological: Yes: Alert Labs: CBC, BMP 04/29/18 10:17 04/29/18 10:17 - ....Imaging Cat Scan: Report Reviewed, Image Reviewed Problem List - Problems (1) Colitis Assessment/Plan: Appears to be a pancolitis on CT scan L>R Leukocytosis improved however with worsened abdominal pain Continuing PO Vancocin emperically for now On IV Abx per ID Continue clears until abdominal pain improved IV hydration Ordered CBC/BMP and CRP for AM Awaiting stool studies when able to collect Code(s): K52.9 - NONINFECTIVE GASTROENTERITIS AND COLITIS, UNSPECIFIED
--- NOTE | 2018-04-29 13:07 | PN ---
Progress Note, Physician History of Present Illness: still with abd pain no other issues no bowel moment yet today wbc trending down - Current Medication List Current Medications: Active Medications Albuterol/Ipratropium (Duoneb -) 1 amp NEB RQID [facility] Last Admin: 04/29/18 11:44 Dose: 1 amp Ascorbic Acid (Vitamin C -) 500 mg PO DAILY [facility] Last Admin: 04/29/18 09:29 Dose: 500 mg Carvedilol (Coreg -) 25 mg PO BID [facility] Last Admin: 04/29/18 09:28 Dose: 25 mg Clopidogrel Bisulfate (Plavix -) 75 mg PO DAILY [facility] Last Admin: 04/29/18 09:29 Dose: 75 mg Diltiazem HCl (Cardizem Cd -) 240 mg PO DAILY [facility] Last Admin: 04/29/18 09:29 Dose: 240 mg Dorzolamide HCl (Trusopt 2%) 1 drop OU BID [facility] Last Admin: 04/29/18 09:31 Dose: 1 drop Enoxaparin Sodium (Lovenox -) 105 mg SQ DAILY [facility] Last Admin: 04/29/18 09:29 Dose: 105 mg Ferrous Sulfate (Feosol -) 325 mg PO DAILY [facility] Last Admin: 04/29/18 09:28 Dose: 325 mg Furosemide (Lasix -) 40 mg PO DAILY [facility] Last Admin: 04/29/18 09:29 Dose: 40 mg Dextrose/Sodium Chloride (D5-1/2ns -) 1,000 mls @ 75 mls/hr IV ASDIR [facility] Last Admin: 04/29/18 03:18 Dose: 75 mls/hr Levofloxacin (Levaquin 250 Mg Premixed Ivpb -) 250 mg in 50 mls @ 50 mls/hr IVPB DAILY [facility] Last Admin: 04/29/18 09:29 Dose: 50 mls/hr Insulin Aspart (Novolog Vial Sliding Scale -) 1 vial SQ ACHS [facility]; Protocol Last Admin: 04/29/18 06:45 Dose: Not Given Lactobacillus Acidophilus (Bacid -) 1 tab PO BID [facility] Last Admin: 04/29/18 09:28 Dose: 1 tab Latanoprost (Xalatan 0.005% Eye Drops -) 1 drop OU HS [facility] Last Admin: 04/28/18 21:44 Dose: 1 drop Meclizine HCl (Antivert -) 25 mg PO TID [facility] Last Admin: 04/29/18 06:45 Dose: 25 mg Potassium Chloride (K-Dur -) 40 meq PO DAILY [facility] Last Admin: 04/29/18 09:29 Dose: 40 meq Simethicone (Mylicon -) 80 mg PO TID [facility] Last Admin: 04/29/18 06:45 Dose: 80 mg Timolol Maleate (Timoptic 0.5%) 1 drop OU BID [facility] Last Admin: 04/29/18 09:30 Dose: 1 drop Vancomycin HCl (Vancomycin Oral Solution) 125 mg PO Q6HPO [facility] Last Admin: 04/29/18 06:45 Dose: 125 mg - Objective Vital Signs: Vital Signs Temperature 98.6 F 04/29/18 09:00 Pulse Rate 64 04/29/18 09:00 Respiratory Rate 20 04/29/18 09:00 Blood Pressure 157/77 04/29/18 09:00 O2 Sat by Pulse Oximetry (%) 95 04/29/18 09:00 Constitutional: Yes: No Distress, Calm Cardiovascular: Yes: Regular Rate and Rhythm Respiratory: Yes: Regular, CTA Bilaterally Gastrointestinal: Yes: Normal Bowel Sounds, Soft Musculoskeletal: Yes: WNL Extremities: Yes: WNL Neurological: Yes: Alert, Oriented Psychiatric: Yes: Alert, Oriented Labs: CBC, BMP 04/29/18 10:17 04/29/18 10:17 Assessment/Plan this lady coming in with dirrhoea and fever and ct scan done shows colitis dirrhoea colitis fever abd pain plan continue current mgmt hydration close watch on the patient await for all stool results
[2018-04-29] MEDS ORDERED: MORPHINE SULFATE 2 MG/ML VIAL IVPUSH PRN (14:45)
[2018-04-29] MEDS: HYDROXYCHLOROQUINE SO4 200 MG TABLET (FP) PO SCH (18:36)
--- NOTE | 2018-04-29 19:54 | PN ---
Progress Note, Physician - Current Medication List Current Medications: Active Medications Albuterol/Ipratropium (Duoneb -) 1 amp NEB RQID [facility] Last Admin: 04/29/18 16:17 Dose: 1 amp Ascorbic Acid (Vitamin C -) 500 mg PO DAILY [facility] Last Admin: 04/29/18 09:29 Dose: 500 mg Carvedilol (Coreg -) 25 mg PO BID [facility] Last Admin: 04/29/18 09:28 Dose: 25 mg Clopidogrel Bisulfate (Plavix -) 75 mg PO DAILY [facility] Last Admin: 04/29/18 09:29 Dose: 75 mg Diltiazem HCl (Cardizem Cd -) 240 mg PO DAILY [facility] Last Admin: 04/29/18 09:29 Dose: 240 mg Dorzolamide HCl (Trusopt 2%) 1 drop OU BID [facility] Last Admin: 04/29/18 09:31 Dose: 1 drop Enoxaparin Sodium (Lovenox -) 105 mg SQ DAILY [facility] Last Admin: 04/29/18 09:29 Dose: 105 mg Ferrous Sulfate (Feosol -) 325 mg PO DAILY [facility] Last Admin: 04/29/18 09:28 Dose: 325 mg Furosemide (Lasix -) 40 mg PO DAILY [facility] Last Admin: 04/29/18 09:29 Dose: 40 mg Hydroxychloroquine Sulfate (Plaquenil -) 200 mg PO DAILY [facility] Last Admin: 04/29/18 18:36 Dose: 200 mg Dextrose/Sodium Chloride (D5-1/2ns -) 1,000 mls @ 75 mls/hr IV ASDIR [facility] Last Admin: 04/29/18 17:41 Dose: 75 mls/hr Levofloxacin (Levaquin 250 Mg Premixed Ivpb -) 250 mg in 50 mls @ 50 mls/hr IVPB DAILY [facility] Last Admin: 04/29/18 09:29 Dose: 50 mls/hr Insulin Aspart (Novolog Vial Sliding Scale -) 1 vial SQ ACHS [facility]; Protocol Last Admin: 04/29/18 17:19 Dose: Not Given Lactobacillus Acidophilus (Bacid -) 1 tab PO BID [facility] Last Admin: 04/29/18 09:28 Dose: 1 tab Latanoprost (Xalatan 0.005% Eye Drops -) 1 drop OU HS [facility] Last Admin: 04/28/18 21:44 Dose: 1 drop Meclizine HCl (Antivert -) 25 mg PO TID [facility] Last Admin: 04/29/18 14:33 Dose: Not Given Morphine Sulfate (Morphine Sulfate) 2 mg IVPUSH Q6H PRN PRN Reason: pain Potassium Chloride (K-Dur -) 40 meq PO DAILY [facility] Last Admin: 04/29/18 09:29 Dose: 40 meq Simethicone (Mylicon -) 80 mg PO TID [facility] Last Admin: 04/29/18 14:33 Dose: 80 mg Timolol Maleate (Timoptic 0.5%) 1 drop OU BID [facility] Last Admin: 04/29/18 09:30 Dose: 1 drop Vancomycin HCl (Vancomycin Oral Solution) 125 mg PO Q6HPO [facility] Last Admin: 04/29/18 17:22 Dose: 125 mg - Objective Vital Signs: Vital Signs Temperature 97.9 F 04/29/18 18:54 Pulse Rate 96 H 04/29/18 18:54 Respiratory Rate 18 04/29/18 18:54 Blood Pressure 139/58 04/29/18 18:54 O2 Sat by Pulse Oximetry (%) 95 04/29/18 09:00 Labs: CBC, BMP 04/29/18 10:17 04/29/18 10:17
[2018-04-29] MEDS: LATANOPROST 0.005% OPHTH SOLN 2.5ML BOTTLE OU SCH (22:39)
[2018-04-30] MEDS: VANCOMYCIN 250 MG/5 ML ORAL SOLUTION PO SCH ×4 (01:00→17:38)
[2018-04-30] MEDS: MECLIZINE HCL 25 MG TABLET (FP) PO SCH ×3 (06:13→21:28)
[2018-04-30] MEDS: SIMETHICONE 80 MG TAB.CHEW (FP) PO SCH ×3 (06:13→21:27)
[2018-04-30] MEDS: DEXTROSE 5%-0.45% SALINE 1,000 ML IV SCH ×2 (06:14→11:37)
[2018-04-30] MEDS: INSULIN SLIDING SCALE (NOVOLOG) 1 VIAL SQ SCH ×4 (06:54→21:26)
[2018-04-30] MEDS: ALBUTEROL SO4 2.5/IPRATROPIUM 0.5 INH SOL 3 ML VIAL.NEB. NEB SCH ×4 (07:43→20:50)
[2018-04-30 08:25] LABS: BASO % 0.2 % (0-2.0); EOS % 2.1 % (0-4.5); HEMATOCRIT 33.6 % (32.4-45.2); HEMOGLOBIN 11.2 GM/dL (10.7-15.3); LYMPH % 31.2 % (8-40); MCH 30.6 pg (25.7-33.7); MCHC 33.4 g/dl (32.0-36.0); MEAN CELL VOLUME 91.5 fl (80-96); MEAN PLT VOLUME 8.3 fl (7.5-11.1); MONO % 14.7 % (3.8-10.2); NEUT % 51.8 % (42.8-82.8); PLATELET COUNT 255 K/MM3 (134-434); RBC 3.67 M/mm3 (3.60-5.2); RDW 14.9 % (11.6-15.6); WHITE BLOOD COUNT 6.9 K/mm3 (4.0-10.0)
[2018-04-30 09:08] LABS: ANION GAP 9 (8-16); BLOOD UREA NITROGEN 5 mg/dL (7-18); CHLORIDE 106 mmol/L (98-107); CO2 25 mmol/L (21-32); GLUCOSE,RANDOM 106 mg/dL (74-106); POTASSIUM 3.5 mmol/L (3.5-5.1); SODIUM 140 mmol/L (136-145)
--- NOTE | 2018-04-30 09:37 | PN ---
Physical Exam: SUBJECTIVE: Patient seen and examined. Abdominal pain and diarrhea are improving. OBJECTIVE: Vital Signs Period Temp Pulse Resp BP Sys/[place] Pulse Ox Last 24 Hr 97.6 F-98.9 F 60-96 18-20 139-149/58-73 95-95 GENERAL: The patient is awake, alert, and fully oriented, in no acute distress. LUNGS: Breath sounds equal, clear to auscultation bilaterally, no wheezes, no crackles, no accessory muscle use. HEART: Regular rate and rhythm, S1, S2 without murmur, rub or gallop. ABDOMEN: Soft, nondistended, mild epigastric tenderness, normoactive bowel sounds, no guarding, no rebound, no hepatosplenomegaly, no masses. EXTREMITIES: 2+ pulses, warm, well-perfused, no edema. Laboratory Results - last 24 hr 04/29/18 04/29/18 04/29/18 10:17 10:17 12:21 WBC 6.3 D RBC 3.77 Hgb 11.5 Hct 34.6 MCV 91.8 MCH 30.5 MCHC 33.2 RDW 14.8 Plt Count 248 MPV 8.5 Absolute Neuts (auto) 3.9 Neutrophils % 61.8 Lymphocytes % 23.0 Monocytes % 12.5 H Eosinophils % 2.6 D Basophils % 0.1 Nucleated RBC % 0 Sodium 141 Potassium 3.5 Chloride 108 H Carbon Dioxide 25 Anion Gap 8 BUN 6 L Creatinine 1.0 Creat Clearance w eGFR 54.35 POC Glucometer 173 Random Glucose 140 H Calcium 8.9 04/29/18 04/29/18 04/29/18 17:17 18:25 21:04 WBC RBC Hgb Hct MCV MCH MCHC RDW Plt Count MPV Absolute Neuts (auto) Neutrophils % Lymphocytes % Monocytes % Eosinophils % Basophils % Nucleated RBC % Sodium Potassium Chloride Carbon Dioxide Anion Gap BUN Creatinine Creat Clearance w eGFR POC Glucometer 53 97 134 Random Glucose Calcium 04/30/18 04/30/18 05:50 06:30 WBC 6.9 RBC 3.67 Hgb 11.2 Hct 33.6 MCV 91.5 MCH 30.6 MCHC 33.4 RDW 14.9 Plt Count 255 MPV 8.3 Absolute Neuts (auto) 3.6 Neutrophils % 51.8 Lymphocytes % 31.2 D Monocytes % 14.7 H Eosinophils % 2.1 Basophils % 0.2 Nucleated RBC % 0 Sodium Potassium Chloride Carbon Dioxide Anion Gap BUN Creatinine Creat Clearance w eGFR POC Glucometer 117 Random Glucose Calcium Active Medications Generic Name Dose Route Start Last Admin Trade Name Barbara PRN Reason Stop Dose Admin Albuterol/Ipratropium 1 amp 04/28/18 12:00 04/30/18 07:43 Duoneb - NEB 1 amp RQID JONAS Administration Ascorbic Acid 500 mg 04/28/18 11:00 04/29/18 09:29 Vitamin C - PO 500 mg DAILY JONAS Administration Carvedilol 25 mg 04/28/18 11:00 04/29/18 22:40 Coreg - PO 25 mg BID [facility]ONAS Administration Clopidogrel Bisulfate 75 mg 04/28/18 11:00 04/29/18 09:29 Plavix - PO 75 mg DAILY [facility]ONAS Administration Diltiazem HCl 240 mg 04/28/18 11:00 04/29/18 09:29 Cardizem Cd - PO 240 mg DAILY JONAS Administration Dorzolamide HCl 1 drop 04/28/18 11:00 04/29/18 22:40 Trusopt 2% OU 1 drop BID [facility]ONAS Administration Enoxaparin Sodium 105 mg 04/28/18 13:00 04/29/18 09:29 Lovenox - SQ 105 mg DAILY [facility]ON[facility] Administration Ferrous Sulfate 325 mg 04/28/18 11:00 04/29/18 09:28 Feosol - PO 325 mg DAILY [facility] Administration Furosemide 40 mg 04/28/18 11:00 04/29/18 09:29 Lasix - PO 40 mg DAILY [facility] Administration Hydroxychloroquine Sulfate 200 mg 04/29/18 14:45 04/29/18 18:36 Plaquenil - PO 200 mg DAILY [facility] Administration Dextrose/Sodium Chloride 1,000 mls @ 75 mls/hr 04/28/18 11:00 04/30/18 06:14 D5-1/2ns - IV 75 mls/hr ASDIR JONAS Administration Levofloxacin 250 mg in 50 mls @ 50 mls/hr 04/29/18 10:00 04/29/18 09:29 Levaquin 250 Mg Premixed Ivpb - IVPB 50 mls/hr DAILY [facility] Administration Insulin Aspart 1 vial 04/28/18 11:00 04/30/18 06:54 Novolog Vial Sliding Scale - SQ Not Given ACHS [facility] Protocol Lactobacillus Acidophilus 1 tab 04/28/18 11:00 04/29/18 22:40 Bacid - PO 1 tab BID [facility] Administration Latanoprost 1 drop 04/28/18 22:00 04/29/18 22:39 Xalatan 0.005% Eye Drops - OU 1 drop HS [facility] Administration Meclizine HCl 25 mg 04/28/18 14:00 04/30/18 06:13 Antivert - PO 25 mg TID [facility] Administration Morphine Sulfate 2 mg 04/29/18 14:45 Morphine Sulfate IVPUSH Q6H PRN pain Potassium Chloride 40 meq 04/28/18 11:00 04/29/18 09:29 K-Dur - PO 40 meq DAILY [facility] Administration Simethicone 80 mg 04/28/18 14:00 04/30/18 06:13 Mylicon - PO 80 mg TID [facility] Administration Timolol Maleate 1 drop 04/28/18 11:00 04/29/18 22:40 Timoptic 0.5% OU 1 drop BID [facility] Administration Vancomycin HCl 125 mg 04/28/18 18:00 04/30/18 06:13 Vancomycin Oral Solution PO 125 mg Q6HPO [facility] Administration ASSESSMENT/PLAN: 1. Acute colitis, presumed infectious - Afebrile, WBC improved - On empiric Levaquin IV and Vancomycin PO - Continue IV fluid - Stool culture pending 2. Hypokalemia - Improved 3. HTN - Continue Coreg, Cardizem, Lasix 4. Hyperlipidemia 5. Paroxysmal atrial fibrillation - Continue Coreg, Cardizem, Lovenox 6. Type 2 diabetes mellitus - Continue Novolog sliding scale 7. History of DVT, hypercoagulable state - Patient is on Lovenox because she developed DVT while on Coumadin 8. Renal artery stenosis 9. History of CVA - Continue Plavix, Lovenox 10. History of pacemaker 11. Possible connective tissue disorder - Continue Plaquenil Visit type - Emergency Visit Emergency Visit: Yes ED Registration Date: 04/27/18 Care time: The patient presented to the Emergency Department on the above date and was hospitalized for further evaluation of their emergent condition. - New Patient This patient is new to me today: Yes Date on this admission: 04/30/18 - Critical Care Critical Care patient: No - Discharge Referral Referred to [facility] Med P.C.: No
[2018-04-30] MEDS ORDERED: PT OWN MED DRAWER 7, Y5N ONE ×2 (11:02→15:13)
[2018-04-30] MEDS: ASCORBIC ACID 500 MG TABLET (FP) PO SCH (11:27)
[2018-04-30] MEDS: CLOPIDOGREL BISULFATE 75 MG TABLET (FP) PO SCH (11:27)
[2018-04-30] MEDS: ENOXAPARIN NA (PORCINE) 120 MG/0.8 ML DISP.SYRIN SQ SCH (11:27)
[2018-04-30] MEDS: CARVEDILOL 25 MG TABLET (FP) PO SCH ×2 (11:27→21:27)
[2018-04-30] MEDS: POTASSIUM CHLORIDE TABS 20 MEQ TABLET.ER (FP) PO SCH (11:27)
[2018-04-30] MEDS: LACTOBACILLUS ACIDOPHILUS 1 TABLET PO SCH ×2 (11:28→21:27)
[2018-04-30] MEDS: FUROSEMIDE 40 MG TABLET (FP) PO SCH (11:29)
[2018-04-30] MEDS: FERROUS SO4 325 MG TABLET (FP) PO SCH (11:30)
[2018-04-30] MEDS: HYDROXYCHLOROQUINE SO4 200 MG TABLET (FP) PO SCH (11:30)
[2018-04-30] MEDS: DORZOLAMIDE 2% HCL OPHTHALMIC SOLUTION 10 ML BOTTLE OU SCH ×2 (11:31→21:31)
[2018-04-30] MEDS: TIMOLOL 0.5% OPHTHALMIC SOL 5 ML BOTTLE OU SCH ×2 (11:33→21:31)
--- NOTE | 2018-04-30 12:41 | PN ---
GI Progress Note Subjective: No acute events Abdominal pain improved. now complains of some abdominal bloating C. Diff not collected as of yet. Was cancelled prior to collection Daughter present at bedside - Objective Vital Signs: Vital Signs Temperature 98.6 F 04/30/18 09:02 Pulse Rate 82 04/30/18 09:02 Respiratory Rate 18 04/30/18 09:02 Blood Pressure 144/72 04/30/18 09:02 O2 Sat by Pulse Oximetry (%) 95 04/30/18 05:00 Constitutional: Calm Eyes: No: Sclera Icterus Cardiovascular: Yes: Regular Rate and Rhythm. No: Murmur Respiratory: Yes: CTA Bilaterally Gastrointestinal Inspection: No: Distention ...Auscultate: Yes: Normoactive Bowel Sounds ...Palpate: Yes: Soft. No: Tenderness ...Percussion: No: Tympanitic Edema: No (No LE edema) Labs: CBC, BMP 04/30/18 06:30 04/30/18 06:30 Hepatic Panel Total Bilirubin 0.6 mg/dL (0.2-1.0) 04/27/18 11:50 AST 35 U/L (15-37) 04/27/18 11:50 ALT 34 U/L (12-78) 04/27/18 11:50 Alkaline Phosphatase 111 U/L (45-117) 04/27/18 11:50 Albumin 2.8 g/dl (3.4-5.0) L 04/27/18 11:50 Problem List - Problems (1) Colitis Assessment/Plan: Clinically improved Continue PO vanco for now Reordered stool for c. diff as it was cancelled prior to collection Lactose free diabetic diet Code(s): K52.9 - NONINFECTIVE GASTROENTERITIS AND COLITIS, UNSPECIFIED
[2018-04-30] MEDS ORDERED: INSULIN (NOVOLOG) ASPART 100 UNITS/ML 10ML VIAL ONE (12:48)
--- NOTE | 2018-04-30 14:03 | PN ---
Progress Note, Physician History of Present Illness: Pt seen and examined. Events noted, chart reviewed. Daughter at bedside. Pt without abd pain today. Reports 1 soft BM today. Yesterday had chills. Currently feels weak. - Current Medication List Current Medications: Active Medications Albuterol/Ipratropium (Duoneb -) 1 amp NEB RQID [facility] Last Admin: 04/30/18 07:43 Dose: 1 amp Ascorbic Acid (Vitamin C -) 500 mg PO DAILY [facility] Last Admin: 04/30/18 11:27 Dose: 500 mg Carvedilol (Coreg -) 25 mg PO BID [facility] Last Admin: 04/30/18 11:27 Dose: 25 mg Clopidogrel Bisulfate (Plavix -) 75 mg PO DAILY [facility] Last Admin: 04/30/18 11:27 Dose: 75 mg Diltiazem HCl (Cardizem Cd -) 240 mg PO DAILY [facility] Last Admin: 04/30/18 11:26 Dose: 240 mg Dorzolamide HCl (Trusopt 2%) 1 drop OU BID [facility] Last Admin: 04/30/18 11:31 Dose: 1 drop Enoxaparin Sodium (Lovenox -) 105 mg SQ DAILY [facility] Last Admin: 04/30/18 11:27 Dose: 105 mg Ferrous Sulfate (Feosol -) 325 mg PO DAILY [facility] Last Admin: 04/30/18 11:30 Dose: 325 mg Furosemide (Lasix -) 40 mg PO DAILY [facility] Last Admin: 04/30/18 11:29 Dose: 40 mg Hydroxychloroquine Sulfate (Plaquenil -) 200 mg PO DAILY [facility] Last Admin: 04/30/18 11:30 Dose: 200 mg Levofloxacin (Levaquin 250 Mg Premixed Ivpb -) 250 mg in 50 mls @ 50 mls/hr IVPB DAILY [facility] Last Admin: 04/30/18 11:28 Dose: 50 mls/hr Insulin Aspart (Novolog Vial Sliding Scale -) 1 vial SQ ACHS [facility]; Protocol Last Admin: 04/30/18 11:37 Dose: 6 units Lactobacillus Acidophilus (Bacid -) 1 tab PO BID [facility] Last Admin: 04/30/18 11:28 Dose: 1 tab Latanoprost (Xalatan 0.005% Eye Drops -) 1 drop OU HS [facility] Last Admin: 04/29/18 22:39 Dose: 1 drop Meclizine HCl (Antivert -) 25 mg PO TID [facility] Last Admin: 04/30/18 06:13 Dose: 25 mg Morphine Sulfate (Morphine Sulfate) 2 mg IVPUSH Q6H PRN PRN Reason: pain Potassium Chloride (K-Dur -) 40 meq PO DAILY [facility] Last Admin: 04/30/18 11:27 Dose: 40 meq Simethicone (Mylicon -) 80 mg PO TID [facility] Last Admin: 04/30/18 06:13 Dose: 80 mg Timolol Maleate (Timoptic 0.5%) 1 drop OU BID [facility] Last Admin: 04/30/18 11:33 Dose: 1 drop Vancomycin HCl (Vancomycin Oral Solution) 125 mg PO Q6HPO [facility] Last Admin: 04/30/18 13:15 Dose: 125 mg - Objective Vital Signs: Vital Signs Temperature 98.6 F 04/30/18 09:02 Pulse Rate 82 04/30/18 09:02 Respiratory Rate 18 04/30/18 09:02 Blood Pressure 144/72 04/30/18 09:02 O2 Sat by Pulse Oximetry (%) 95 04/30/18 05:00 Constitutional: Yes: No Distress, Other (weak) Cardiovascular: Yes: Regular Rate and Rhythm Respiratory: Yes: Regular Gastrointestinal: Yes: Normal Bowel Sounds, Soft, Tenderness (mild Lt sided abd pain with palpation) Genitourinary: Yes: WNL Extremities: Yes: WNL Neurological: Yes: Alert Labs: CBC, BMP 04/30/18 06:30 04/30/18 06:30 Microbiology 04/29/18 07:23 Urine - Urine Clean Catch Urine Culture - Preliminary Presumptive Mrsa (Pbp2a Pos) Microbiology Problem List - Problems (1) Colitis Code(s): K52.9 - NONINFECTIVE GASTROENTERITIS AND COLITIS, UNSPECIFIED (2) Afib Code(s): I48.91 - UNSPECIFIED ATRIAL FIBRILLATION Qualifiers: Atrial fibrillation type: paroxysmal Qualified Code(s): I48.0 - Paroxysmal atrial fibrillation (3) Antiphospholipid antibody syndrome Code(s): D68.61 - ANTIPHOSPHOLIPID SYNDROME (4) UTI (urinary tract infection) Code(s): N39.0 - URINARY TRACT INFECTION, SITE NOT SPECIFIED Qualifiers: Urinary tract infection type: acute cystitis Assessment/Plan Pt treated with antibiotics 2 months ago for UTI in the retirement presenting with diarrhea, abd pain. Symptoms appear to be improving. Colitis, possibly C. difficile MRSA UTI -- continue current antibiotics -- f/u stool studies, Stool for CDT re-ordered -- will add Vancomycin IV -- maintain precautions -- monitor vitals, currently afebrile
[2018-04-30] MEDS: VANCOMYCIN 750 MG in DEXTROSE 5%-WATER - 250 ML IVPB SCH (15:16)
[2018-04-30] MEDS: LATANOPROST 0.005% OPHTH SOLN 2.5ML BOTTLE OU SCH (21:31)
[2018-05-01] MEDS: VANCOMYCIN 250 MG/5 ML ORAL SOLUTION PO SCH ×4 (00:55→17:25)
[2018-05-01] MEDS ORDERED: PT OWN MED DRAWER 7, Y5N ONE ×2 (01:02→14:46)
[2018-05-01] MEDS: VANCOMYCIN 750 MG in DEXTROSE 5%-WATER - 250 ML IVPB SCH ×2 (01:29→14:53)
[2018-05-01] MEDS: SIMETHICONE 80 MG TAB.CHEW (FP) PO SCH ×3 (06:12→21:37)
[2018-05-01] MEDS: MECLIZINE HCL 25 MG TABLET (FP) PO SCH ×3 (06:13→21:37)
[2018-05-01] MEDS: ALBUTEROL SO4 2.5/IPRATROPIUM 0.5 INH SOL 3 ML VIAL.NEB. NEB SCH ×2 (07:44→11:30)
[2018-05-01] MEDS: INSULIN SLIDING SCALE (NOVOLOG) 1 VIAL SQ SCH ×4 (09:32→21:37)
[2018-05-01] MEDS: ENOXAPARIN NA (PORCINE) 120 MG/0.8 ML DISP.SYRIN SQ SCH (09:41)
[2018-05-01] MEDS: DORZOLAMIDE 2% HCL OPHTHALMIC SOLUTION 10 ML BOTTLE OU SCH ×2 (09:42→21:47)
[2018-05-01] MEDS: TIMOLOL 0.5% OPHTHALMIC SOL 5 ML BOTTLE OU SCH ×2 (09:43→21:46)
[2018-05-01] MEDS: LACTOBACILLUS ACIDOPHILUS 1 TABLET PO SCH ×2 (09:43→21:36)
[2018-05-01] MEDS: POTASSIUM CHLORIDE TABS 20 MEQ TABLET.ER (FP) PO SCH (09:44)
[2018-05-01] MEDS: FERROUS SO4 325 MG TABLET (FP) PO SCH (09:44)
[2018-05-01] MEDS: CARVEDILOL 25 MG TABLET (FP) PO SCH ×2 (09:44→21:37)
[2018-05-01] MEDS: FUROSEMIDE 40 MG TABLET (FP) PO SCH (09:45)
[2018-05-01] MEDS: ASCORBIC ACID 500 MG TABLET (FP) PO SCH (09:45)
[2018-05-01] MEDS: CLOPIDOGREL BISULFATE 75 MG TABLET (FP) PO SCH (09:45)
[2018-05-01] MEDS: HYDROXYCHLOROQUINE SO4 200 MG TABLET (FP) PO SCH (09:46)
--- NOTE | 2018-05-01 14:28 | PN ---
Physical Exam: SUBJECTIVE: Patient seen and examined. Diarrhea is improving. She is tolerating diet. OBJECTIVE: Vital Signs Period Temp Pulse Resp BP Sys/[place]ak Pulse Ox Last 24 Hr 97.8 F-98.0 F 60-62 20-20 144-165/57-64 95 GENERAL: The patient is awake, alert, and fully oriented, in no acute distress. LUNGS: Breath sounds equal, clear to auscultation bilaterally, no wheezes, no crackles, no accessory muscle use. HEART: Regular rate and rhythm, S1, S2 without murmur, rub or gallop. ABDOMEN: Soft, nondistended, mild epigastric tenderness, normoactive bowel sounds, no guarding, no rebound, no hepatosplenomegaly, no masses. EXTREMITIES: 2+ pulses, warm, well-perfused, no edema. Laboratory Results - last 24 hr 04/30/18 04/30/18 05/01/18 17:36 21:19 06:09 POC Glucometer 158 191 103 05/01/18 12:14 POC Glucometer 120 Active Medications Generic Name Dose Route Start Last Admin Trade Name Barbara PRN Reason Stop Dose Admin Albuterol/Ipratropium 1 amp 04/28/18 12:00 05/01/18 11:30 Duoneb - NEB 1 amp RQID JONAS Administration Ascorbic Acid 500 mg 04/28/18 11:00 05/01/18 09:45 Vitamin C - PO 500 mg DAILY [facility] Administration Carvedilol 25 mg 04/28/18 11:00 05/01/18 09:44 Coreg - PO 25 mg BID JONAS Administration Clopidogrel Bisulfate 75 mg 04/28/18 11:00 05/01/18 09:45 Plavix - PO 75 mg DAILY [facility] Administration Diltiazem HCl 240 mg 04/28/18 11:00 05/01/18 09:44 Cardizem Cd - PO 240 mg DAILY [facility] Administration Dorzolamide HCl 1 drop 04/28/18 11:00 05/01/18 09:42 Trusopt 2% OU 1 drop BID [facility] Administration Enoxaparin Sodium 105 mg 04/28/18 13:00 05/01/18 09:41 Lovenox - SQ 105 mg DAILY [facility] Administration Ferrous Sulfate 325 mg 04/28/18 11:00 05/01/18 09:44 Feosol - PO 325 mg DAILY [facility] Administration Furosemide 40 mg 04/28/18 11:00 05/01/18 09:45 Lasix - PO 40 mg DAILY [facility] Administration Hydroxychloroquine Sulfate 200 mg 04/29/18 14:45 05/01/18 09:46 Plaquenil - PO 200 mg DAILY [facility] Administration Levofloxacin 250 mg in 50 mls @ 50 mls/hr 04/29/18 10:00 05/01/18 09:40 Levaquin 250 Mg Premixed Ivpb - IVPB 50 mls/hr DAILY [facility] Administration Vancomycin HCl 750 mg/ 250 mls @ 166.667 mls/hr 04/30/18 14:15 05/01/18 01:29 Dextrose IVPB 166.667 mls/hr Q12H [facility] Administration Protocol Insulin Aspart 1 vial 04/28/18 11:00 05/01/18 12:16 Novolog Vial Sliding Scale - SQ Not Given ACHS [facility] Protocol Lactobacillus Acidophilus 1 tab 04/28/18 11:00 05/01/18 09:43 Bacid - PO 1 tab BID [facility] Administration Latanoprost 1 drop 04/28/18 22:00 04/30/18 21:31 Xalatan 0.005% Eye Drops - OU 1 drop HS [facility] Administration Meclizine HCl 25 mg 04/28/18 14:00 05/01/18 06:13 Antivert - PO 25 mg TID [facility] Administration Morphine Sulfate 2 mg 04/29/18 14:45 Morphine Sulfate IVPUSH Q6H PRN pain Potassium Chloride 40 meq 04/28/18 11:00 05/01/18 09:44 K-Dur - PO 40 meq DAILY [facility] Administration Simethicone 80 mg 04/28/18 14:00 05/01/18 06:12 Mylicon - PO 80 mg TID [facility] Administration Timolol Maleate 1 drop 04/28/18 11:00 05/01/18 09:43 Timoptic 0.5% OU 1 drop BID [facility] Administration Vancomycin HCl 125 mg 04/28/18 18:00 05/01/18 12:15 Vancomycin Oral Solution PO 125 mg Q6HPO [facility] Administration ASSESSMENT/PLAN: 1. Acute colitis, presumed infectious - Afebrile, WBC improved - Stool culture negative - C. difficile pending - On empiric Levaquin IV and Vancomycin PO 2. MRSA UTI - Vancomycin IV started 3. Hypokalemia - Improved - Continue potassium supplementation 4. HTN - Continue Coreg, Cardizem, Lasix 5. Hyperlipidemia 6. Paroxysmal atrial fibrillation - Continue Coreg, Cardizem, Lovenox 7. Type 2 diabetes mellitus - Continue Novolog sliding scale 8. History of DVT, hypercoagulable state - Patient is on Lovenox because she developed DVT while on Coumadin 9. Renal artery stenosis 10. History of CVA - Continue Plavix, Lovenox 11. History of pacemaker 12. Possible connective tissue disorder - Continue Plaquenil Visit type - Emergency Visit Emergency Visit: Yes ED Registration Date: 04/27/18 Care time: The patient presented to the Emergency Department on the above date and was hospitalized for further evaluation of their emergent condition. - New Patient This patient is new to me today: No - Critical Care Critical Care patient: No - Discharge Referral Referred to [facility] No
[2018-05-01] MEDS ORDERED: ALBUTEROL SO4 2.5/IPRATROPIUM 0.5 INH SOL 3 ML VIAL.NEB. NEB PRN (14:30)
--- NOTE | 2018-05-01 17:23 | PN ---
Progress Note, Physician History of Present Illness: Pt with family at bedside. She feels weak but has been able to sit in chair today. Had 1 soft BM without abd pain. Remains afebrile. Denies dysuria/ suprapubic pain or chills. - Current Medication List Current Medications: Active Medications Albuterol/Ipratropium (Duoneb -) 1 amp NEB Q4H PRN PRN Reason: SHORT OF BREATH/WHEEZING Ascorbic Acid (Vitamin C -) 500 mg PO DAILY [facility] Last Admin: 05/01/18 09:45 Dose: 500 mg Carvedilol (Coreg -) 25 mg PO BID [facility] Last Admin: 05/01/18 09:44 Dose: 25 mg Clopidogrel Bisulfate (Plavix -) 75 mg PO DAILY [facility] Last Admin: 05/01/18 09:45 Dose: 75 mg Diltiazem HCl (Cardizem Cd -) 240 mg PO DAILY [facility] Last Admin: 05/01/18 09:44 Dose: 240 mg Dorzolamide HCl (Trusopt 2%) 1 drop OU BID [facility] Last Admin: 05/01/18 09:42 Dose: 1 drop Enoxaparin Sodium (Lovenox -) 105 mg SQ DAILY [facility] Last Admin: 05/01/18 09:41 Dose: 105 mg Ferrous Sulfate (Feosol -) 325 mg PO DAILY [facility] Last Admin: 05/01/18 09:44 Dose: 325 mg Furosemide (Lasix -) 40 mg PO DAILY [facility] Last Admin: 05/01/18 09:45 Dose: 40 mg Hydroxychloroquine Sulfate (Plaquenil -) 200 mg PO DAILY [facility] Last Admin: 05/01/18 09:46 Dose: 200 mg Levofloxacin (Levaquin 250 Mg Premixed Ivpb -) 250 mg in 50 mls @ 50 mls/hr IVPB DAILY [facility] Last Admin: 05/01/18 09:40 Dose: 50 mls/hr Vancomycin HCl 750 mg/ (Dextrose) 250 mls @ 166.667 mls/hr IVPB Q12H [facility]; Protocol Last Admin: 05/01/18 14:53 Dose: 166.667 mls/hr Insulin Aspart (Novolog Vial Sliding Scale -) 1 vial SQ ACHS [facility]; Protocol Last Admin: 05/01/18 12:16 Dose: Not Given Lactobacillus Acidophilus (Bacid -) 1 tab PO BID [facility] Last Admin: 05/01/18 09:43 Dose: 1 tab Latanoprost (Xalatan 0.005% Eye Drops -) 1 drop OU HS [facility] Last Admin: 04/30/18 21:31 Dose: 1 drop Meclizine HCl (Antivert -) 25 mg PO TID [facility] Last Admin: 05/01/18 14:56 Dose: Not Given Morphine Sulfate (Morphine Sulfate) 2 mg IVPUSH Q6H PRN PRN Reason: pain Potassium Chloride (K-Dur -) 40 meq PO DAILY [facility] Last Admin: 05/01/18 09:44 Dose: 40 meq Simethicone (Mylicon -) 80 mg PO TID [facility] Last Admin: 05/01/18 14:55 Dose: 80 mg Timolol Maleate (Timoptic 0.5%) 1 drop OU BID [facility] Last Admin: 05/01/18 09:43 Dose: 1 drop Vancomycin HCl (Vancomycin Oral Solution) 125 mg PO Q6HPO [facility] Last Admin: 05/01/18 12:15 Dose: 125 mg - Objective Vital Signs: Vital Signs Temperature 98.0 F 04/30/18 17:30 Pulse Rate 60 04/30/18 17:30 Respiratory Rate 20 04/30/18 21:00 Blood Pressure 165/64 04/30/18 17:30 O2 Sat by Pulse Oximetry (%) 95 04/30/18 21:00 Constitutional: Yes: No Distress, Calm Cardiovascular: Yes: Regular Rate and Rhythm Respiratory: Yes: Regular Gastrointestinal: Yes: Normal Bowel Sounds, Soft Genitourinary: Yes: WNL Musculoskeletal: Yes: WNL Extremities: Yes: WNL Integumentary: Yes: WNL Neurological: Yes: Alert Psychiatric: Yes: Alert Labs: CBC, BMP 04/30/18 06:30 04/30/18 06:30 Microbiology 04/30/18 16:30 Stool Clostridium difficile Antigen (ROX) - Final 04/30/18 16:30 Stool Clostridium difficile Toxin Assay - Final 04/29/18 07:23 Urine - Urine Clean Catch Urine Culture - Final S Aureus 04/29/18 17:00 Stool Salmonella/Shigella Culture - Preliminary NO ENTERIC PATHOGENS, 24 HOURS, ON PRIMARY PLATES 04/29/18 17:00 Stool Yersinia Culture - Preliminary NO ENTERIC PATHOGENS, 24 HOURS, ON PRIMARY PLATES 04/29/18 17:00 Stool Vibrio Culture - Final NO GROWTH OF VIBRIO SPECIES OBTAINED 04/29/18 17:00 Stool Escherichia coli 0157 Culture - Final NO GROWTH OF E COLI 0157 OBTAINED Problem List - Problems (1) Colitis Code(s): K52.9 - NONINFECTIVE GASTROENTERITIS AND COLITIS, UNSPECIFIED (2) Afib Code(s): I48.91 - UNSPECIFIED ATRIAL FIBRILLATION Qualifiers: Atrial fibrillation type: paroxysmal Qualified Code(s): I48.0 - Paroxysmal atrial fibrillation (3) Antiphospholipid antibody syndrome Code(s): D68.61 - ANTIPHOSPHOLIPID SYNDROME (4) UTI (urinary tract infection) Code(s): N39.0 - URINARY TRACT INFECTION, SITE NOT SPECIFIED Qualifiers: Urinary tract infection type: acute cystitis Assessment/Plan Pt treated with antibiotics 2 months ago for UTI in the long term presenting with diarrhea, abd pain, mildly elevated wbc. Colitis - symptoms improving MRSA UTI -- stool CDT neg but collected after started on vancomycin po -- stool studies neg for other enteric pathogens -- continue Vancomycin IV, Vancomycin trough ordered for tomorrow -- monitor renal function -- maintain precautions -- monitor vitals, currently afebrile
[2018-05-01] MEDS: LATANOPROST 0.005% OPHTH SOLN 2.5ML BOTTLE OU SCH (21:47)
[2018-05-02] MEDS: VANCOMYCIN 250 MG/5 ML ORAL SOLUTION PO SCH ×4 (00:51→18:07)
[2018-05-02] MEDS: VANCOMYCIN 750 MG in DEXTROSE 5%-WATER - 250 ML IVPB SCH (01:50)
[2018-05-02] MEDS: MECLIZINE HCL 25 MG TABLET (FP) PO SCH ×3 (06:02→23:14)
[2018-05-02] MEDS: SIMETHICONE 80 MG TAB.CHEW (FP) PO SCH ×3 (06:03→23:15)
[2018-05-02] MEDS: INSULIN SLIDING SCALE (NOVOLOG) 1 VIAL SQ SCH ×4 (06:03→23:18)
[2018-05-02 08:14] LABS: HEMATOCRIT 33.4 % (32.4-45.2); HEMOGLOBIN 11.4 GM/dL (10.7-15.3); MCH 30.9 pg (25.7-33.7); MCHC 34.1 g/dl (32.0-36.0); MEAN CELL VOLUME 90.7 fl (80-96); MEAN PLT VOLUME 7.9 fl (7.5-11.1); PLATELET COUNT 278 K/MM3 (134-434); RBC 3.69 M/mm3 (3.60-5.2); RDW 14.6 % (11.6-15.6); WHITE BLOOD COUNT 7.5 K/mm3 (4.0-10.0)
[2018-05-02 08:43] LABS: CHLORIDE 105 mmol/L (98-107); POTASSIUM 3.8 mmol/L (3.5-5.1); SODIUM 138 mmol/L (136-145)
[2018-05-02 08:48] LABS: ANION GAP 8 (8-16); BLOOD UREA NITROGEN 8 mg/dL (7-18); CALCIUM 9.1 mg/dL (8.5-10.1); CO2 25 mmol/L (21-32); GLUCOSE,RANDOM 114 mg/dL (74-106)
--- NOTE | 2018-05-02 10:02 | PN ---
Progress Note, Physician History of Present Illness: still c/o of pain in the left lower quadrant all results noted patient clinically looks stable - Current Medication List Current Medications: Active Medications Albuterol/Ipratropium (Duoneb -) 1 amp NEB Q4H PRN PRN Reason: SHORT OF BREATH/WHEEZING Ascorbic Acid (Vitamin C -) 500 mg PO DAILY [facility] Last Admin: 05/01/18 09:45 Dose: 500 mg Carvedilol (Coreg -) 25 mg PO BID [facility] Last Admin: 05/01/18 21:37 Dose: 25 mg Clopidogrel Bisulfate (Plavix -) 75 mg PO DAILY [facility] Last Admin: 05/01/18 09:45 Dose: 75 mg Diltiazem HCl (Cardizem Cd -) 240 mg PO DAILY [facility] Last Admin: 05/01/18 09:44 Dose: 240 mg Dorzolamide HCl (Trusopt 2%) 1 drop OU BID [facility] Last Admin: 05/01/18 21:47 Dose: 1 drop Doxycycline Hyclate (Vibramycin -) 100 mg PO BID@1000,1800 [facility] Enoxaparin Sodium (Lovenox -) 105 mg SQ DAILY [facility] Last Admin: 05/01/18 09:41 Dose: 105 mg Ferrous Sulfate (Feosol -) 325 mg PO DAILY [facility] Last Admin: 05/01/18 09:44 Dose: 325 mg Furosemide (Lasix -) 40 mg PO DAILY [facility] Last Admin: 05/01/18 09:45 Dose: 40 mg Hydroxychloroquine Sulfate (Plaquenil -) 200 mg PO DAILY [facility] Last Admin: 05/01/18 09:46 Dose: 200 mg Levofloxacin (Levaquin 250 Mg Premixed Ivpb -) 250 mg in 50 mls @ 50 mls/hr IVPB DAILY [facility] Last Admin: 05/01/18 09:40 Dose: 50 mls/hr Insulin Aspart (Novolog Vial Sliding Scale -) 1 vial SQ ACHS [facility]; Protocol Last Admin: 05/02/18 06:03 Dose: Not Given Lactobacillus Acidophilus (Bacid -) 1 tab PO BID [facility] Last Admin: 05/01/18 21:36 Dose: 1 tab Latanoprost (Xalatan 0.005% Eye Drops -) 1 drop OU HS [facility] Last Admin: 05/01/18 21:47 Dose: 1 drop Meclizine HCl (Antivert -) 25 mg PO TID [facility] Last Admin: 05/02/18 06:02 Dose: 25 mg Morphine Sulfate (Morphine Sulfate) 2 mg IVPUSH Q6H PRN PRN Reason: pain Potassium Chloride (K-Dur -) 40 meq PO DAILY [facility] Last Admin: 05/01/18 09:44 Dose: 40 meq Simethicone (Mylicon -) 80 mg PO TID [facility] Last Admin: 05/02/18 06:03 Dose: 80 mg Timolol Maleate (Timoptic 0.5%) 1 drop OU BID [facility] Last Admin: 05/01/18 21:46 Dose: 1 drop Vancomycin HCl (Vancomycin Oral Solution) 125 mg PO Q6HPO [facility] Last Admin: 05/02/18 06:02 Dose: 125 mg - Objective Vital Signs: Vital Signs Temperature 99.6 F 05/02/18 06:00 Pulse Rate 60 05/02/18 06:00 Respiratory Rate 20 05/02/18 06:00 Blood Pressure 153/64 05/02/18 06:00 O2 Sat by Pulse Oximetry (%) 100 05/01/18 21:00 Constitutional: Yes: Calm, Mild Distress Cardiovascular: Yes: Regular Rate and Rhythm Respiratory: Yes: Regular, CTA Bilaterally Gastrointestinal: Yes: Soft, Other (left lower quadrant pain) Musculoskeletal: Yes: WNL Extremities: Yes: WNL Neurological: Yes: Alert, Oriented Psychiatric: Yes: Alert, Oriented Labs: CBC, BMP 05/02/18 07:01 05/02/18 07:01 Assessment/Plan dirrhoea colitis fever abd pain uti plan will stop iv vanco will switch to doxy continue po vanco and levaquin for now rest as per the team
[2018-05-02] MEDS ORDERED: PT OWN MED DRAWER 7, Y5N ONE ×2 (10:54→15:02)
[2018-05-02] MEDS: CARVEDILOL 25 MG TABLET (FP) PO SCH ×2 (11:12→23:15)
[2018-05-02] MEDS: ENOXAPARIN NA (PORCINE) 120 MG/0.8 ML DISP.SYRIN SQ SCH (11:12)
[2018-05-02] MEDS: DOXYCYCLINE HYCLATE 100 MG CAPSULE PO SCH ×2 (11:12→18:07)
[2018-05-02] MEDS: LACTOBACILLUS ACIDOPHILUS 1 TABLET PO SCH ×2 (11:12→23:15)
[2018-05-02] MEDS: FUROSEMIDE 40 MG TABLET (FP) PO SCH (11:12)
[2018-05-02] MEDS: POTASSIUM CHLORIDE TABS 20 MEQ TABLET.ER (FP) PO SCH (11:12)
[2018-05-02] MEDS: CLOPIDOGREL BISULFATE 75 MG TABLET (FP) PO SCH (11:13)
[2018-05-02] MEDS: HYDROXYCHLOROQUINE SO4 200 MG TABLET (FP) PO SCH (11:13)
[2018-05-02] MEDS: DORZOLAMIDE 2% HCL OPHTHALMIC SOLUTION 10 ML BOTTLE OU SCH ×2 (11:15→23:15)
[2018-05-02] MEDS: TIMOLOL 0.5% OPHTHALMIC SOL 5 ML BOTTLE OU SCH ×2 (11:15→23:15)
[2018-05-02] MEDS: ASCORBIC ACID 500 MG TABLET (FP) PO SCH (11:17)
[2018-05-02] MEDS: FERROUS SO4 325 MG TABLET (FP) PO SCH (11:51)
--- NOTE | 2018-05-02 12:27 | PN ---
Physical Exam: SUBJECTIVE: Patient seen and examined. She is to oob to chair, eating a home cooked meal with daughter. Has nausea, however fever, chills. OBJECTIVE: Vital Signs Period Temp Pulse Resp BP Sys/[place]ak Pulse Ox Last 24 Hr 98.2 F-99.6 F 60-60 20-20 142-153/57-64 100 PE Neuro: alert, awake, cn 2-12intact Pulm: CTAB CV: s1 s2 rrr Abd: LUE tenderness and soft, +bs Ext: warm, no le edema Laboratory Results - last 24 hr 05/01/18 05/02/18 05/02/18 21:33 05:56 07:01 WBC 7.5 RBC 3.69 Hgb 11.4 Hct 33.4 MCV 90.7 MCH 30.9 MCHC 34.1 RDW 14.6 Plt Count 278 MPV 7.9 Sodium Potassium Chloride Carbon Dioxide Anion Gap BUN Creatinine Creat Clearance w eGFR POC Glucometer 176 101 Random Glucose Calcium Stool O & P Wet [place] Permanent Slide 05/02/18 07:01 WBC RBC Hgb Hct MCV MCH MCHC RDW Plt Count MPV Sodium 138 Potassium 3.8 Chloride 105 Carbon Dioxide 25 Anion Gap 8 BUN 8 Creatinine 1.0 Creat Clearance w eGFR 54.35 POC Glucometer Random Glucose 114 H Calcium 9.1 Stool O & P Wet [place] Permanent Slide Active Medications Generic Name Dose Route Start Last Admin Trade Name Freq PRN Reason Stop Dose Admin Albuterol/Ipratropium 1 amp 05/01/18 14:30 Duoneb - NEB Q4H PRN SHORT OF BREATH/WHEEZING Ascorbic Acid 500 mg 04/28/18 11:00 05/02/18 11:17 Vitamin C - PO 500 mg DAILY [facility]ON[facility] Administration Carvedilol 25 mg 04/28/18 11:00 05/02/18 11:12 Coreg - PO 25 mg BID [facility]ONAS Administration Clopidogrel Bisulfate 75 mg 04/28/18 11:00 05/02/18 11:13 Plavix - PO 75 mg DAILY [facility]ON[facility] Administration Diltiazem HCl 240 mg 04/28/18 11:00 05/02/18 11:12 Cardizem Cd - PO 240 mg DAILY [facility]ON[facility] Administration Dorzolamide HCl 1 drop 04/28/18 11:00 05/02/18 11:15 Trusopt 2% OU 1 drop BID JONAS Administration Doxycycline Hyclate 100 mg 05/02/18 10:00 05/02/18 11:12 Vibramycin - PO 100 mg BID@1000,1800 [facility]ON[facility] Administration Enoxaparin Sodium 105 mg 04/28/18 13:00 05/02/18 11:12 Lovenox - SQ 105 mg DAILY [facility] Administration Ferrous Sulfate 325 mg 05/02/18 10:48 Feosol - PO DAILY@0800 JONAS Furosemide 40 mg 04/28/18 11:00 05/02/18 11:12 Lasix - PO 40 mg DAILY [facility] Administration Hydroxychloroquine Sulfate 200 mg 04/29/18 14:45 05/02/18 11:13 Plaquenil - PO 200 mg DAILY [facility] Administration Levofloxacin 250 mg in 50 mls @ 50 mls/hr 04/29/18 10:00 05/02/18 11:13 Levaquin 250 Mg Premixed Ivpb - IVPB 50 mls/hr DAILY [facility] Administration Insulin Aspart 1 vial 04/28/18 11:00 05/02/18 06:03 Novolog Vial Sliding Scale - SQ Not Given ACHS [facility] Protocol Lactobacillus Acidophilus 1 tab 04/28/18 11:00 05/02/18 11:12 Bacid - PO 1 tab BID [facility]ON[facility] Administration Latanoprost 1 drop 04/28/18 22:00 05/01/18 21:47 Xalatan 0.005% Eye Drops - OU 1 drop HS [facility]ONAS Administration Meclizine HCl 25 mg 04/28/18 14:00 05/02/18 06:02 Antivert - PO 25 mg TID [facility]ONAS Administration Morphine Sulfate 2 mg 04/29/18 14:45 Morphine Sulfate IVPUSH Q6H PRN pain Potassium Chloride 40 meq 04/28/18 11:00 05/02/18 11:12 K-Dur - PO 40 meq DAILY [facility] Administration Simethicone 80 mg 04/28/18 14:00 05/02/18 06:03 Mylicon - PO 80 mg TID JONAS Administration Timolol Maleate 1 drop 04/28/18 11:00 05/02/18 11:15 Timoptic 0.5% OU 1 drop BID JONAS Administration Vancomycin HCl 125 mg 04/28/18 18:00 05/02/18 06:02 Vancomycin Oral Solution PO 125 mg Q6HPO JONAS Administration Assessment: 72 year old female, with PMH significant for HTN, HLD, diabetes, IBS , GERD, CHF, AFib, pericarditis, pericardial effusion, AAA(5 cm), YAQUELIN, PPM, and CVA( residual right arm/leg weakness). Pt was sent from SN[facility] due to multiple episodes of foul smelling diarrhea for the past 4 days. 1. Acute colitis, presumed infectious - Started Po Doxy - Continue Levaquin IV (day 4) and Vancomycin PO (day 4) - C diff negative 2. MRSA UTI - On levaquin - IV vanco stopped yesterday 05/01 3. Hypokalemia - Resolved 4. HTN - Continue Coreg, Cardizem, Lasix 5. Hyperlipidemia 6. Paroxysmal atrial fibrillation - Continue Coreg, Cardizem, Lovenox 7. Type 2 diabetes mellitus - Continue Novolog sliding scale 8. History of DVT, hypercoagulable state - Patient is on Lovenox because she developed DVT while on Coumadin 9. Renal artery stenosis 10. History of CVA - Continue Plavix, Lovenox 11. History of pacemaker 12. Possible connective tissue disorder - Continue Plaquenil Visit type - Emergency Visit Emergency Visit: Yes ED Registration Date: 04/27/18 Care time: The patient presented to the Emergency Department on the above date and was hospitalized for further evaluation of their emergent condition. - New Patient This patient is new to me today: Yes Date on this admission: 05/02/18 - Critical Care Critical Care patient: No
[2018-05-02] MEDS ORDERED: ONDANSETRON 4 MG TABLET PO ONE (12:33)
[2018-05-02] MEDS ORDERED: INSULIN (NOVOLOG) ASPART 100 UNITS/ML 10ML VIAL ONE (17:59)
[2018-05-02] MEDS: LATANOPROST 0.005% OPHTH SOLN 2.5ML BOTTLE OU SCH (23:16)
[2018-05-03] MEDS: VANCOMYCIN 250 MG/5 ML ORAL SOLUTION PO SCH ×4 (00:13→18:19)
[2018-05-03] MEDS: MECLIZINE HCL 25 MG TABLET (FP) PO SCH ×3 (06:55→21:40)
[2018-05-03] MEDS: SIMETHICONE 80 MG TAB.CHEW (FP) PO SCH ×3 (06:55→21:41)
[2018-05-03] MEDS: INSULIN SLIDING SCALE (NOVOLOG) 1 VIAL SQ SCH ×4 (08:04→21:46)
[2018-05-03] MEDS: CARVEDILOL 25 MG TABLET (FP) PO SCH ×2 (10:40→21:41)
[2018-05-03] MEDS: CLOPIDOGREL BISULFATE 75 MG TABLET (FP) PO SCH (10:40)
[2018-05-03] MEDS: FUROSEMIDE 40 MG TABLET (FP) PO SCH (10:40)
[2018-05-03] MEDS: FERROUS SO4 325 MG TABLET (FP) PO SCH (10:40)
[2018-05-03] MEDS: POTASSIUM CHLORIDE TABS 20 MEQ TABLET.ER (FP) PO SCH (10:41)
[2018-05-03] MEDS: DOXYCYCLINE HYCLATE 100 MG CAPSULE PO SCH ×2 (10:41→18:18)
[2018-05-03] MEDS: LACTOBACILLUS ACIDOPHILUS 1 TABLET PO SCH ×2 (10:41→21:41)
[2018-05-03] MEDS: ENOXAPARIN NA (PORCINE) 120 MG/0.8 ML DISP.SYRIN SQ SCH (10:41)
[2018-05-03] MEDS ORDERED: PT OWN MED DRAWER 7, Y5N ONE ×2 (10:43→21:05)
[2018-05-03] MEDS: HYDROXYCHLOROQUINE SO4 200 MG TABLET (FP) PO SCH (10:44)
[2018-05-03] MEDS: TIMOLOL 0.5% OPHTHALMIC SOL 5 ML BOTTLE OU SCH ×2 (10:46→21:40)
[2018-05-03] MEDS: DORZOLAMIDE 2% HCL OPHTHALMIC SOLUTION 10 ML BOTTLE OU SCH ×2 (10:46→21:47)
[2018-05-03] MEDS: ASCORBIC ACID 500 MG TABLET (FP) PO SCH (12:51)
--- NOTE | 2018-05-03 14:25 | PN ---
Progress Note, Physician History of Present Illness: patient doing well no issues - Current Medication List Current Medications: Active Medications Albuterol/Ipratropium (Duoneb -) 1 amp NEB Q4H PRN PRN Reason: SHORT OF BREATH/WHEEZING Ascorbic Acid (Vitamin C -) 500 mg PO DAILY [facility] Last Admin: 05/03/18 12:51 Dose: 500 mg Carvedilol (Coreg -) 25 mg PO BID [facility] Last Admin: 05/03/18 10:40 Dose: 25 mg Clopidogrel Bisulfate (Plavix -) 75 mg PO DAILY [facility] Last Admin: 05/03/18 10:40 Dose: 75 mg Diltiazem HCl (Cardizem Cd -) 240 mg PO DAILY [facility] Last Admin: 05/03/18 10:41 Dose: 240 mg Dorzolamide HCl (Trusopt 2%) 1 drop OU BID [facility] Last Admin: 05/03/18 10:46 Dose: 1 drop Doxycycline Hyclate (Vibramycin -) 100 mg PO BID@1000,1800 [facility] Last Admin: 05/03/18 10:41 Dose: 100 mg Enoxaparin Sodium (Lovenox -) 105 mg SQ DAILY [facility] Last Admin: 05/03/18 10:41 Dose: 105 mg Ferrous Sulfate (Feosol -) 325 mg PO DAILY@0800 [facility] Last Admin: 05/03/18 10:40 Dose: 325 mg Furosemide (Lasix -) 40 mg PO DAILY [facility] Last Admin: 05/03/18 10:40 Dose: 40 mg Hydroxychloroquine Sulfate (Plaquenil -) 200 mg PO DAILY [facility] Last Admin: 05/03/18 10:44 Dose: 200 mg Insulin Aspart (Novolog Vial Sliding Scale -) 1 vial SQ [facility]; Protocol Last Admin: 05/03/18 13:07 Dose: 2 units Lactobacillus Acidophilus (Bacid -) 1 tab PO BID [facility] Last Admin: 05/03/18 10:41 Dose: 1 tab Latanoprost (Xalatan 0.005% Eye Drops -) 1 drop OU HS [facility] Last Admin: 05/02/18 23:16 Dose: 1 drop Levofloxacin (Levaquin -) 250 mg PO DAILY [facility] Last Admin: 05/03/18 10:40 Dose: 250 mg Meclizine HCl (Antivert -) 25 mg PO TID [facility] Last Admin: 06/26/18 06:55 Dose: 25 mg Morphine Sulfate (Morphine Sulfate) 2 mg IVPUSH Q6H PRN PRN Reason: pain Potassium Chloride (K-Dur -) 40 meq PO DAILY [facility] Last Admin: 05/03/18 10:41 Dose: 40 meq Simethicone (Mylicon -) 80 mg PO TID [facility] Last Admin: 05/03/18 06:55 Dose: 80 mg Timolol Maleate (Timoptic 0.5%) 1 drop OU BID [facility] Last Admin: 05/03/18 10:46 Dose: 1 drop Vancomycin HCl (Vancomycin Oral Solution) 125 mg PO Q6HPO [facility] Last Admin: 05/03/18 12:52 Dose: 125 mg - Objective Vital Signs: Vital Signs Temperature 99 F 05/03/18 06:57 Pulse Rate 61 05/03/18 06:57 Respiratory Rate 20 05/03/18 06:57 Blood Pressure 143/56 05/03/18 06:57 O2 Sat by Pulse Oximetry (%) 100 05/02/18 21:00 Constitutional: Yes: No Distress, Calm Cardiovascular: Yes: Regular Rate and Rhythm Respiratory: Yes: Regular, CTA Bilaterally Gastrointestinal: Yes: Normal Bowel Sounds, Soft Musculoskeletal: Yes: WNL Extremities: Yes: WNL Neurological: Yes: Alert, Oriented Psychiatric: Yes: Alert, Oriented Labs: CBC, BMP 05/02/18 07:01 05/02/18 07:01 Assessment/Plan dirrhoea colitis fever abd pain uti plan continue doxy stop all other abx doxy for 7 more days
[2018-05-03] MEDS: LATANOPROST 0.005% OPHTH SOLN 2.5ML BOTTLE OU SCH (21:47)
[2018-05-04] MEDS: VANCOMYCIN 250 MG/5 ML ORAL SOLUTION PO SCH ×4 (01:38→17:25)
[2018-05-04] MEDS: MECLIZINE HCL 25 MG TABLET (FP) PO SCH ×3 (07:21→21:45)
[2018-05-04] MEDS: SIMETHICONE 80 MG TAB.CHEW (FP) PO SCH ×3 (07:22→21:53)
[2018-05-04] MEDS: INSULIN SLIDING SCALE (NOVOLOG) 1 VIAL SQ SCH ×4 (07:22→21:54)
[2018-05-04] MEDS: FERROUS SO4 325 MG TABLET (FP) PO SCH (08:29)
[2018-05-04 10:35] VITALS: BMI 28.9
[2018-05-04] MEDS: LACTOBACILLUS ACIDOPHILUS 1 TABLET PO SCH ×2 (10:48→21:45)
[2018-05-04] MEDS: POTASSIUM CHLORIDE TABS 20 MEQ TABLET.ER (FP) PO SCH (10:48)
[2018-05-04] MEDS: CARVEDILOL 25 MG TABLET (FP) PO SCH ×2 (10:48→21:45)
[2018-05-04] MEDS: FUROSEMIDE 40 MG TABLET (FP) PO SCH (10:49)
[2018-05-04] MEDS: CLOPIDOGREL BISULFATE 75 MG TABLET (FP) PO SCH (10:49)
[2018-05-04] MEDS: HYDROXYCHLOROQUINE SO4 200 MG TABLET (FP) PO SCH (10:49)
[2018-05-04] MEDS: ASCORBIC ACID 500 MG TABLET (FP) PO SCH (10:51)
[2018-05-04] MEDS: DOXYCYCLINE HYCLATE 100 MG CAPSULE PO SCH ×2 (10:51→17:25)
[2018-05-04] MEDS: DORZOLAMIDE 2% HCL OPHTHALMIC SOLUTION 10 ML BOTTLE OU SCH ×2 (10:51→21:43)
[2018-05-04] MEDS: TIMOLOL 0.5% OPHTHALMIC SOL 5 ML BOTTLE OU SCH ×2 (10:51→21:43)
[2018-05-04] MEDS: ENOXAPARIN NA (PORCINE) 120 MG/0.8 ML DISP.SYRIN SQ SCH (10:52)
--- NOTE | 2018-05-04 13:07 | EKG ---
Test Reason : Blood Pressure : / mmHG Vent. Rate : 061 BPM Atrial Rate : 061 BPM P-R Int : 212 ms QRS Dur : 144 ms QT Int : 464 ms P-R-T Axes : 019 006 152 degrees QTc Int : 467 ms Atrial-paced rhythm with prolonged AV conduction LEFT BUNDLE BRANCH BLOCK ABNORMAL ECG WHEN COMPARED WITH ECG OF 29-JAN-2018 09:30, ELECTRONIC ATRIAL PACEMAKER HAS REPLACED SINUS RHYTHM NONSPECIFIC T WAVE ABNORMALITY HAS REPLACED INVERTED T WAVES IN INFERIOR LEADS T WAVE INVERSION LESS EVIDENT IN LATERAL LEADS Confirmed by TELLY EMERSON, GEORGINA ([id number]) on 05/04/2018 1:07:38 PM Referred By: Confirmed By:GEORGINA VARNER MD
--- NOTE | 2018-05-04 13:25 | PN ---
Progress Note, Physician History of Present Illness: stable doing well no issues - Current Medication List Current Medications: Active Medications Albuterol/Ipratropium (Duoneb -) 1 amp NEB Q4H PRN PRN Reason: SHORT OF BREATH/WHEEZING Ascorbic Acid (Vitamin C -) 500 mg PO DAILY [facility] Last Admin: 05/04/18 10:51 Dose: 500 mg Carvedilol (Coreg -) 25 mg PO BID [facility] Last Admin: 05/04/18 10:48 Dose: 25 mg Clopidogrel Bisulfate (Plavix -) 75 mg PO DAILY [facility] Last Admin: 05/04/18 10:49 Dose: 75 mg Diltiazem HCl (Cardizem Cd -) 240 mg PO DAILY [facility] Last Admin: 05/04/18 10:48 Dose: 240 mg Dorzolamide HCl (Trusopt 2%) 1 drop OU BID [facility] Last Admin: 05/04/18 10:51 Dose: 1 drop Doxycycline Hyclate (Vibramycin -) 100 mg PO BID@1000,1800 [facility] Last Admin: 05/04/18 10:51 Dose: 100 mg Enoxaparin Sodium (Lovenox -) 105 mg SQ DAILY [facility] Last Admin: 05/04/18 10:52 Dose: 105 mg Ferrous Sulfate (Feosol -) 325 mg PO DAILY@0800 [facility] Last Admin: 05/04/18 08:29 Dose: 325 mg Furosemide (Lasix -) 40 mg PO DAILY [facility] Last Admin: 05/04/18 10:49 Dose: 40 mg Hydroxychloroquine Sulfate (Plaquenil -) 200 mg PO DAILY [facility] Last Admin: 05/04/18 10:49 Dose: 200 mg Insulin Aspart (Novolog Vial Sliding Scale -) 1 vial SQ [facility]; Protocol Last Admin: 05/04/18 12:13 Dose: Not Given Lactobacillus Acidophilus (Bacid -) 1 tab PO BID [facility] Last Admin: 05/04/18 10:48 Dose: 1 tab Latanoprost (Xalatan 0.005% Eye Drops -) 1 drop OU HS [facility] Last Admin: 05/03/18 21:47 Dose: 1 drop Levofloxacin (Levaquin -) 250 mg PO DAILY [facility] Last Admin: 05/04/18 10:49 Dose: 250 mg Meclizine HCl (Antivert -) 25 mg PO TID [facility] Last Admin: 06/27/18 07:21 Dose: 25 mg Morphine Sulfate (Morphine Sulfate) 2 mg IVPUSH Q6H PRN PRN Reason: pain Potassium Chloride (K-Dur -) 40 meq PO DAILY [facility] Last Admin: 05/04/18 10:48 Dose: 40 meq Simethicone (Mylicon -) 80 mg PO TID [facility] Last Admin: 05/04/18 07:22 Dose: 80 mg Timolol Maleate (Timoptic 0.5%) 1 drop OU BID [facility] Last Admin: 05/04/18 10:51 Dose: 1 drop Vancomycin HCl (Vancomycin Oral Solution) 125 mg PO Q6HPO [facility] Last Admin: 05/04/18 12:22 Dose: 125 mg - Objective Vital Signs: Vital Signs Temperature 99.5 F 05/04/18 06:00 Pulse Rate 109 H 05/04/18 06:00 Respiratory Rate 20 05/04/18 06:00 Blood Pressure 151/68 05/04/18 06:00 O2 Sat by Pulse Oximetry (%) 100 05/02/18 21:00 Constitutional: Yes: No Distress, Calm Cardiovascular: Yes: Regular Rate and Rhythm Respiratory: Yes: Regular, CTA Bilaterally Gastrointestinal: Yes: Normal Bowel Sounds, Soft Musculoskeletal: Yes: WNL Extremities: Yes: WNL Neurological: Yes: Alert, Oriented Psychiatric: Yes: Alert, Oriented Labs: CBC, BMP 05/02/18 07:01 05/02/18 07:01 Assessment/Plan dirrhoea colitis fever abd pain uti plan continue doxy for another 6 days
[2018-05-04] MEDS ORDERED: PT OWN MED DRAWER 7, Y5N ONE ×2 (13:52→17:19)
[2018-05-04] MEDS: LATANOPROST 0.005% OPHTH SOLN 2.5ML BOTTLE OU SCH (21:44)
[2018-05-05] MEDS: VANCOMYCIN 250 MG/5 ML ORAL SOLUTION PO SCH ×3 (01:34→11:35)
[2018-05-05] MEDS: SIMETHICONE 80 MG TAB.CHEW (FP) PO SCH ×2 (06:36→13:58)
[2018-05-05] MEDS: MECLIZINE HCL 25 MG TABLET (FP) PO SCH ×2 (06:37→13:58)
[2018-05-05] MEDS: INSULIN SLIDING SCALE (NOVOLOG) 1 VIAL SQ SCH ×3 (06:40→16:29)
[2018-05-05] MEDS: FERROUS SO4 325 MG TABLET (FP) PO SCH (08:51)
[2018-05-05] MEDS ORDERED: PT OWN MED DRAWER 7, Y5N ONE ×2 (10:17→13:53)
[2018-05-05] MEDS: LACTOBACILLUS ACIDOPHILUS 1 TABLET PO SCH (10:20)
[2018-05-05] MEDS: POTASSIUM CHLORIDE TABS 20 MEQ TABLET.ER (FP) PO SCH (10:21)
[2018-05-05] MEDS: CARVEDILOL 25 MG TABLET (FP) PO SCH (10:21)
[2018-05-05] MEDS: FUROSEMIDE 40 MG TABLET (FP) PO SCH (10:21)
[2018-05-05] MEDS: HYDROXYCHLOROQUINE SO4 200 MG TABLET (FP) PO SCH (10:21)
[2018-05-05] MEDS: ASCORBIC ACID 500 MG TABLET (FP) PO SCH (10:22)
[2018-05-05] MEDS: DORZOLAMIDE 2% HCL OPHTHALMIC SOLUTION 10 ML BOTTLE OU SCH (10:22)
[2018-05-05] MEDS: DOXYCYCLINE HYCLATE 100 MG CAPSULE PO SCH (10:22)
[2018-05-05] MEDS: ENOXAPARIN NA (PORCINE) 120 MG/0.8 ML DISP.SYRIN SQ SCH (10:22)
[2018-05-05] MEDS: CLOPIDOGREL BISULFATE 75 MG TABLET (FP) PO SCH (10:22)
[2018-05-05] MEDS: TIMOLOL 0.5% OPHTHALMIC SOL 5 ML BOTTLE OU SCH (10:22)
--- NOTE | 2018-05-05 12:37 | PN ---
Progress Note, Physician History of Present Illness: Pt seen and examined on 05/04/18 however note is being entered now due to computer issues - Current Medication List Current Medications: Active Medications Albuterol/Ipratropium (Duoneb -) 1 amp NEB Q4H PRN PRN Reason: SHORT OF BREATH/WHEEZING Ascorbic Acid (Vitamin C -) 500 mg PO DAILY [facility] Last Admin: 05/05/18 10:22 Dose: 500 mg Carvedilol (Coreg -) 25 mg PO BID [facility] Last Admin: 05/05/18 10:21 Dose: 25 mg Clopidogrel Bisulfate (Plavix -) 75 mg PO DAILY [facility] Last Admin: 05/05/18 10:22 Dose: 75 mg Diltiazem HCl (Cardizem Cd -) 240 mg PO DAILY [facility] Last Admin: 05/05/18 10:20 Dose: 240 mg Dorzolamide HCl (Trusopt 2%) 1 drop OU BID [facility] Last Admin: 05/05/18 10:22 Dose: 1 drop Doxycycline Hyclate (Vibramycin -) 100 mg PO BID@1000,1800 [facility] Last Admin: 05/05/18 10:22 Dose: 100 mg Enoxaparin Sodium (Lovenox -) 105 mg SQ DAILY [facility] Last Admin: 05/05/18 10:22 Dose: 105 mg Ferrous Sulfate (Feosol -) 325 mg PO DAILY@0800 [facility] Last Admin: 05/05/18 08:51 Dose: 325 mg Furosemide (Lasix -) 40 mg PO DAILY [facility] Last Admin: 05/05/18 10:21 Dose: 40 mg Hydroxychloroquine Sulfate (Plaquenil -) 200 mg PO DAILY [facility] Last Admin: 05/05/18 10:21 Dose: 200 mg Insulin Aspart (Novolog Vial Sliding Scale -) 1 vial SQ [facility]; Protocol Last Admin: 05/05/18 11:35 Dose: 2 units Lactobacillus Acidophilus (Bacid -) 1 tab PO BID [facility] Last Admin: 05/05/18 10:20 Dose: 1 tab Latanoprost (Xalatan 0.005% Eye Drops -) 1 drop OU HS [facility] Last Admin: 05/04/18 21:44 Dose: 1 drop Levofloxacin (Levaquin -) 250 mg PO DAILY [facility] Last Admin: 05/05/18 10:21 Dose: 250 mg Meclizine HCl (Antivert -) 25 mg PO TID [facility] Last Admin: 05/05/18 06:37 Dose: 25 mg Potassium Chloride (K-Dur -) 40 meq PO DAILY [facility] Last Admin: 05/05/18 10:21 Dose: 40 meq Simethicone (Mylicon -) 80 mg PO TID [facility] Last Admin: 05/05/18 06:36 Dose: 80 mg Timolol Maleate (Timoptic 0.5%) 1 drop OU BID [facility] Last Admin: 05/05/18 10:22 Dose: 1 drop Vancomycin HCl (Vancomycin Oral Solution) 125 mg PO Q6HPO [facility] Last Admin: 05/05/18 11:35 Dose: 125 mg - Objective Vital Signs: Vital Signs Temperature 99.5 F 05/05/18 06:00 Pulse Rate 61 05/05/18 06:00 Respiratory Rate 20 05/05/18 06:00 Blood Pressure 127/52 05/05/18 06:00 O2 Sat by Pulse Oximetry (%) 100 05/02/18 21:00 Labs: CBC, BMP 05/02/18 07:01 05/02/18 07:01
--- NOTE | 2018-05-05 15:12 | PN ---
Progress Note, Physician History of Present Illness: patient stable no new issues abd pain normalized - Current Medication List Current Medications: Active Medications Albuterol/Ipratropium (Duoneb -) 1 amp NEB Q4H PRN PRN Reason: SHORT OF BREATH/WHEEZING Ascorbic Acid (Vitamin C -) 500 mg PO DAILY [facility] Last Admin: 05/05/18 10:22 Dose: 500 mg Carvedilol (Coreg -) 25 mg PO BID [facility] Last Admin: 05/05/18 10:21 Dose: 25 mg Clopidogrel Bisulfate (Plavix -) 75 mg PO DAILY [facility] Last Admin: 05/05/18 10:22 Dose: 75 mg Diltiazem HCl (Cardizem Cd -) 240 mg PO DAILY [facility] Last Admin: 05/05/18 10:20 Dose: 240 mg Dorzolamide HCl (Trusopt 2%) 1 drop OU BID [facility] Last Admin: 05/05/18 10:22 Dose: 1 drop Doxycycline Hyclate (Vibramycin -) 100 mg PO BID@1000,1800 [facility] Last Admin: 05/05/18 10:22 Dose: 100 mg Enoxaparin Sodium (Lovenox -) 105 mg SQ DAILY [facility] Last Admin: 05/05/18 10:22 Dose: 105 mg Ferrous Sulfate (Feosol -) 325 mg PO DAILY@0800 [facility] Last Admin: 05/05/18 08:51 Dose: 325 mg Furosemide (Lasix -) 40 mg PO DAILY [facility] Last Admin: 05/05/18 10:21 Dose: 40 mg Hydroxychloroquine Sulfate (Plaquenil -) 200 mg PO DAILY [facility] Last Admin: 05/05/18 10:21 Dose: 200 mg Insulin Aspart (Novolog Vial Sliding Scale -) 1 vial SQ [facility]; Protocol Last Admin: 05/05/18 11:35 Dose: 2 units Lactobacillus Acidophilus (Bacid -) 1 tab PO BID [facility] Last Admin: 05/05/18 10:20 Dose: 1 tab Latanoprost (Xalatan 0.005% Eye Drops -) 1 drop OU HS [facility] Last Admin: 05/04/18 21:44 Dose: 1 drop Levofloxacin (Levaquin -) 250 mg PO DAILY [facility] Last Admin: 05/05/18 10:21 Dose: 250 mg Meclizine HCl (Antivert -) 25 mg PO TID [facility] Last Admin: 05/05/18 13:58 Dose: 25 mg Potassium Chloride (K-Dur -) 40 meq PO DAILY [facility] Last Admin: 05/05/18 10:21 Dose: 40 meq Simethicone (Mylicon -) 80 mg PO TID [facility] Last Admin: 05/05/18 13:58 Dose: 80 mg Timolol Maleate (Timoptic 0.5%) 1 drop OU BID [facility] Last Admin: 05/05/18 10:22 Dose: 1 drop Vancomycin HCl (Vancomycin Oral Solution) 125 mg PO Q6HPO [facility] Last Admin: 05/05/18 11:35 Dose: 125 mg - Objective Vital Signs: Vital Signs Temperature 98.5 F 05/05/18 15:00 Pulse Rate 61 05/05/18 15:00 Respiratory Rate 18 05/05/18 15:00 Blood Pressure 132/59 05/05/18 15:00 O2 Sat by Pulse Oximetry (%) 100 05/02/18 21:00 Constitutional: Yes: No Distress, Calm Cardiovascular: Yes: Regular Rate and Rhythm Respiratory: Yes: Regular, CTA Bilaterally Gastrointestinal: Yes: Normal Bowel Sounds, Soft Musculoskeletal: Yes: WNL Extremities: Yes: WNL Neurological: Yes: Alert, Oriented Psychiatric: Yes: Alert, Oriented Labs: CBC, BMP 05/02/18 07:01 05/02/18 07:01 Assessment/Plan dirrhoea colitis fever abd pain uti plan continue doxy for another 5 days
[2018-05-05 17:07] VITALS: BP 127/50; PULSE 60; TEMP 98
--- NOTE | 2018-05-08 15:29 | DS ---
Physical Examination Vital Signs: Vital Signs Temperature 98 F 05/05/18 17:06 Pulse Rate 60 05/05/18 17:06 Respiratory Rate 20 05/05/18 17:06 Blood Pressure 127/50 05/05/18 17:06 O2 Sat by Pulse Oximetry (%) 100 05/02/18 21:00 Labs: CBC, BMP 05/02/18 07:01 05/02/18 07:01 Discharge Summary Reason For Visit: COLITIS Condition: Good - Instructions Diet, Activity, Other Instructions: 2 gram sodium and 2200 calorie diabetic diet Referrals: Espinoza Clark MD [Primary Care Provider] - Vinod Delacruz MD [Staff Physician] - Disposition: LONGTERM FACILITY - Home Medications Comprehensive Discharge Medication List: Ambulatory Orders Clopidogrel Bisulfate [Plavix -] 75 mg PO DAILY 10/09/17 Diltiazem HCl [Diltiazem 24Hr Cd] 240 mg PO DAILY 10/09/17 Carvedilol [Coreg -] 25 mg PO BID tablet 12/13/17 Dorzolamide HCl [Trusopt 2% -] 1 drop OU BID drops 12/13/17 Latanoprost 0.005% Eye Drops [Xalatan 0.005% Eye Drops -] 1 drop OU HS drops Timolol 0.5% [Timoptic 0.5%] 1 drop OU BID drops 12/13/17 Colchicine [Colcrys -] 0.6 mg PO BID tablet 01/05/18 Furosemide [Lasix -] 40 mg PO DAILY tablet 01/05/18 Hydroxychloroquine So4 [Plaquenil -] 200 mg PO DAILY tablet 01/05/18 Insulin (Levemir) [Levemir Vial] 20 units SQ AM ml 01/05/18 Potassium Chloride [K-Dur -] 40 meq PO DAILY tablet.er 01/05/18 Acetaminophen [Extra Strength Non-Aspirin] 500 mg PO Q12H 04/27/18 Acetaminophen [Tylenol .Regular Strength -] 325 mg PO Q8H PRN 04/27/18 Albuterol 2.5/Ipratropium 0.5 [Duoneb -] 1 amp NEB QID 04/27/18 Ascorbic Acid [Vitamin C] 500 mg PO DAILY 04/27/18 Enoxaparin Sodium [Lovenox] 120 mg SQ DAILY 04/27/18 Enoxaparin [Lovenox -] 70 mg SQ DAILY 04/27/18 Ferrous Sulfate 325 mg PO DAILY 04/27/18 Insulin Detemir [Levemir Flextouch] 10 unit SQ DAILY 04/27/18 Insulin Sliding Scale [Novolog Vial Sliding Scale -] 0 ml SQ ACHS 04/27/18 Lactobacillus Acidophilus [Bacid -] 1 each PO BID 04/27/18 Loperamide HCl [Imodium A-D] 1 tab PO ASDIR 04/27/18 Meclizine HCl 25 mg PO TID 04/27/18 Metoclopramide HCl [Reglan] 5 mg PO TID 04/27/18 Polyethylene Glycol 3350 [Miralax 119 gm Btl -] 17 gm PO DAILY PRN 04/27/18 Simethicone 80 mg PO TID 04/27/18 Tramadol HCl 50 mg PO Q8H PRN 04/27/18 Doxycycline Hyclate [Vibramycin -] 100 mg PO BID@1000,1800 #14 capsule 05/03/18
== END 2018-05-05 17:42 | DRG 392 ==
LOC: JER 10:37 → JERBED 16:40 → J8W 21:44
PROVIDERS: ADMIT Internal Medicine; ATTEND Internal Medicine
DX: A09 Infectious gastroenteritis and colitis, unspecified (principal); I69.351 Hemiplegia and hemiparesis following cerebral infarction affecting right dominant side; D68.61 Antiphospholipid syndrome; N39.0 Urinary tract infection, site not specified; D68.59 Other primary thrombophilia; B95.62 Methicillin resistant Staphylococcus aureus infection as the cause of diseases classified elsewhere; E78.5 Hyperlipidemia, unspecified; E11.9 Type 2 diabetes mellitus without complications; K21.9 Gastro-esophageal reflux disease without esophagitis; K58.9 Irritable bowel syndrome, unspecified; I71.4 Abdominal aortic aneurysm, without rupture; E86.0 Dehydration; I70.1 Atherosclerosis of renal artery; E87.6 Hypokalemia; I48.0 Paroxysmal atrial fibrillation; L94.9 Localized connective tissue disorder, unspecified; Z86.718 Personal history of other venous thrombosis and embolism; Z87.891 Personal history of nicotine dependence; Z88.0 Allergy status to penicillin; Z95.0 Presence of cardiac pacemaker
CPT/HCPCS: 36415; 74176-TC; 76775-TC; 80048; 80053; 81003; 81015; 82962; 83690; 85025; 85027; 86140; 87045; 87046; 87086; 87177; 87186; 87209; 87324; 87449; 93005; 93010; 94640; 97116-GP; 97162-GP; 99283-25; G0480; J7030; J7620

== ENCOUNTER 2018-09-23 16:36 | Emergency (ER) | payer OTHER ==
--- NOTE | 2018-09-23 17:11 | PDOC ---
Rapid Medical Evaluation Chief Complaint: Weakness Time Seen by Provider: 09/23/18 17:10 Medical Evaluation: Allergies Allergy/AdvReac Type Severity Reaction Status Date / Time aspirin Allergy Severe Verified 04/27/18 10:40 Penicillins Allergy Severe Verified 04/27/18 10:40 peanut Allergy Unknown Verified 04/27/18 10:40 diclofenac Allergy Verified 04/27/18 10:40 shellfish derived Allergy Verified 04/27/18 10:40 lactose AdvReac Verified 04/27/18 10:40 peanut Allergy Unknown Rash Uncoded 04/27/18 10:40 iv contrast Allergy Uncoded 04/27/18 10:40 09/23/18 17:12 73 year old with multiple medical problems with most recent AAA repair one month ago in [facility], bib daughter for weakness more than usual and left arm hematoma. denies trauma/ injury/ patient is currently lovenox. Pe: patient alert ox3 left upper lasrge hematoma A: hematoma; weakness P: labs patient to the ER for further management of care. Discharge Disposition - Diagnosis Hematoma and contusion, Weakness - Referrals Referrals: Sony Johnson MD [Primary Care Provider] - - Patient Instructions - Post Discharge Activity
[2018-09-23 17:17] VITALS: BP 153/60; PULSE 80; TEMP 97.9; BMI 28.9
[2018-09-23 17:40] LABS: BASO % 0.6 % (0-2.0); EOS % 1.4 % (0-4.5); HEMATOCRIT 37.9 % (32.4-45.2); HEMOGLOBIN 12.5 GM/dL (10.7-15.3); LYMPH % 38.4 % (8-40); MCH 30.7 pg (25.7-33.7); MEAN CELL VOLUME 92.8 fl (80-96); MEAN PLT VOLUME 8.7 fl (7.5-11.1); MONO % 10.8 % (3.8-10.2); NEUT % 48.8 % (42.8-82.8); PLATELET COUNT 219 K/MM3 (134-434); RBC 4.08 M/mm3 (3.60-5.2); RDW 13.9 % (11.6-15.6); WHITE BLOOD COUNT 4.6 K/mm3 (4.0-10.0)
[2018-09-23 18:11] LABS: INR 1.04 (0.83-1.09); PROTHROMBIN TIME (PATIENT) 12.3 SEC (9.7-13.0)
[2018-09-23 18:14] LABS: ACTIVATED PTT 42.7 SECONDS (25.2-36.5)
[2018-09-23 18:25] LABS: ALBUMIN 3.5 g/dl (3.4-5.0); ALK PHOS 109 U/L (45-117); ANION GAP 11 MMOL/L (8-16); BILIRUBIN,TOTAL 0.4 mg/dL (0.2-1); BLOOD UREA NITROGEN 23 mg/dL (7-18); CALCIUM 8.9 mg/dL (8.5-10.1); CHLORIDE 102 mmol/L (98-107); CO2 26 mmol/L (21-32); CREATININE 1.7 mg/dL (0.55-1.3); GLUCOSE,RANDOM 168 mg/dL (74-106); POTASSIUM 3.8 mmol/L (3.5-5.1); SGOT/AST 27 U/L (15-37); SGPT/ALT 39 U/L (13-61); SODIUM 140 mmol/L (136-145); TOT PROT 7.1 g/dl (6.4-8.2)
[2018-09-23] MEDS ORDERED: SODIUM CHLORIDE 500 ML IV STA (21:08)
[2018-09-23] MEDS ORDERED: SODIUM CHLORIDE 250 ML IV STA (21:13)
--- NOTE | 2018-09-23 21:42 | PDOC ---
History of Present Illness - General Chief Complaint: Redness To Affected Area Stated Complaint: LEFT ARM BRUSING Time Seen by Provider: 09/23/18 17:10 History Source: Patient Exam Limitations: Language Barrier ([employer] used) - History of Present Illness Initial Comments: 73 y/o F hx of PAF (on Lovenox) s/p PPM, LLE DVT, CVA with residual R sided weakness, HTN, HLD, IBS, GERD, DM, renal artery stenosis, AAA s/p repair 1 month ago at [facility], pericarditis, pericardial effusion s/p pericardiocentesis, +anticardiolipin AB presents with noted bruising of LUE from today. Denies fall or other possible injury. States she has never injected the Lovenox in the arm either. Denies any pain, numbness, weakness, fever, sob, cp, abd pain, n/v. States she otherwise feels completely fine other than this bruise to LUE. 09/23/18 21:35 Past History - Past Medical History Allergies/Adverse Reactions: Allergies Allergy/AdvReac Type Severity Reaction Status Date / Time aspirin Allergy Severe Verified 09/23/18 20:49 Penicillins Allergy Severe Verified 09/23/18 20:49 diclofenac Allergy Verified 09/23/18 20:49 shellfish derived Allergy Verified 09/23/18 20:49 lactose AdvReac Verified 09/23/18 20:49 peanut Allergy Unknown Rash Uncoded 09/23/18 20:49 iv contrast Allergy Uncoded 09/23/18 20:49 Home Medications: Ambulatory Orders Clopidogrel Bisulfate [Plavix -] 75 mg PO DAILY 10/09/17 Diltiazem HCl [Diltiazem 24Hr Cd] 240 mg PO DAILY 10/09/17 Carvedilol [Coreg -] 25 mg PO BID tablet 12/13/17 Dorzolamide HCl [Trusopt 2% -] 1 drop OU BID drops 12/13/17 Latanoprost 0.005% Eye Drops [Xalatan 0.005% Eye Drops -] 1 drop OU HS drops Timolol 0.5% [Timoptic 0.5%] 1 drop OU BID drops 12/13/17 Colchicine [Colcrys -] 0.6 mg PO BID tablet 01/05/18 Furosemide [Lasix -] 40 mg PO DAILY tablet 01/05/18 Hydroxychloroquine So4 [Plaquenil -] 200 mg PO DAILY tablet 01/05/18 Insulin (Levemir) [Levemir Vial] 20 units SQ AM ml 01/05/18 Potassium Chloride [K-Dur -] 40 meq PO DAILY tablet.er 01/05/18 Acetaminophen [Extra Strength Non-Aspirin] 500 mg PO Q12H 04/27/18 Acetaminophen [Tylenol .Regular Strength -] 325 mg PO Q8H PRN 04/27/18 Albuterol 2.5/Ipratropium 0.5 [Duoneb -] 1 amp NEB QID 04/27/18 Ascorbic Acid [Vitamin C] 500 mg PO DAILY 04/27/18 Enoxaparin Sodium [Lovenox] 120 mg SQ DAILY 04/27/18 Enoxaparin [Lovenox -] 70 mg SQ DAILY 04/27/18 Ferrous Sulfate 325 mg PO DAILY 04/27/18 Insulin Detemir [Levemir Flextouch] 10 unit SQ DAILY 04/27/18 Insulin Sliding Scale [Novolog Vial Sliding Scale -] 0 ml SQ ACHS 04/27/18 Lactobacillus Acidophilus [Bacid -] 1 each PO BID 04/27/18 Loperamide HCl [Imodium A-D] 1 tab PO ASDIR 04/27/18 Meclizine HCl 25 mg PO TID 04/27/18 Metoclopramide HCl [Reglan] 5 mg PO TID 04/27/18 Polyethylene Glycol 3350 [Miralax 119 gm Btl -] 17 gm PO DAILY PRN 04/27/18 Simethicone 80 mg PO TID 04/27/18 Tramadol HCl 50 mg PO Q8H PRN 04/27/18 Doxycycline Hyclate [Vibramycin -] 100 mg PO BID@1000,1800 #14 capsule 05/03/18 Anemia: No Cardiac Disorders: Yes (PACEMAKER, AAA 5CM, AFIB, PERICARDITIS, PERICARDIAL EFFUSION) CVA: Yes (RIGHT ARM AND LEG WEAKNESS RESIDUAL) COPD: No CHF: Yes DVT: No Diabetes: Yes 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) GI Disorders: Yes (constipation, GERD,IBS) HTN: Yes Hypercholesterolemia: Yes - Surgical History Cardiac Surgery: Yes (PACEMAKER (2010) ; cath 09/24) - Immunization History Immunization Up to Date: Yes - Suicide/Smoking/Psychosocial Hx Smoking History: Former smoker Have you smoked in the past 12 months: No Number of Cigarettes Smoked Daily: 5 If you are a former smoker, when did you quit?: 1993 Information on smoking cessation initiated: No Hx Alcohol Use: No Drug/Substance Use Hx: No Substance Use Type: None Hx Substance Use Treatment: No Review of Systems - Review of Systems Comments:: See HPI 09/23/18 21:42 *Physical Exam - Vital Signs Last Vital Signs Temp Pulse Resp BP Pulse Ox 97.9 F 80 17 153/60 96 09/23/18 17:13 09/23/18 17:13 09/23/18 17:13 09/23/18 17:13 09/23/18 17:13 - Physical Exam General Appearance: No: Apparent Distress Respiratory/Chest: positive: Lungs Clear, Normal Breath Sounds. negative: Respiratory Distress Cardiovascular: positive: Regular Rhythm, Regular Rate, S1, S2. negative: Murmur Gastrointestinal/Abdominal: positive: Normal Bowel Sounds, Soft. negative: Tender, Distended, Guarding, Rebound Extremity: positive: Pedal Edema, Calf Tenderness, Other (+Bruise to LUE, no TTP , bruise is not circumferential, pulses intact of LUE) Integumentary: positive: Other (No other changes to skin color noted of LUE) Neurologic: positive: Fully Oriented, Alert, Normal Mood/Affect, Other ( sensation intact along LUE) ED Treatment Course - LABORATORY CBC & Chemistry Diagram: 09/23/18 17:31 09/23/18 17:31 - ADDITIONAL ORDERS Additional order review: Laboratory Results 09/23/18 09/23/18 09/23/18 17:31 17:31 17:31 PT with INR INR PTT (Actin FS) Sodium 140 Potassium 3.8 Chloride 102 Carbon Dioxide 26 Anion Gap 11 BUN 23 H Creatinine 1.7 H Creat Clearance w eGFR 29.38 Random Glucose 168 H Calcium 8.9 Total Bilirubin 0.4 AST 27 ALT 39 Alkaline Phosphatase 109 Troponin I < 0.02 Total Protein 7.1 Albumin 3.5 Blood Type O POSITIVE Antibody Screen Negative 09/23/18 17:31 PT with INR 12.30 INR 1.04 PTT (Actin FS) 42.7 H Sodium Potassium Chloride Carbon Dioxide Anion Gap BUN Creatinine Creat Clearance w eGFR Random Glucose Calcium Total Bilirubin AST ALT Alkaline Phosphatase Troponin I Total Protein Albumin Blood Type Antibody Screen 09/23/18 17:31 RBC 4.08 MCV 92.8 MCHC 33.0 RDW 13.9 MPV 8.7 D Neutrophils % 48.8 Lymphocytes % 38.4 D Monocytes % 10.8 H Eosinophils % 1.4 Basophils % 0.6 Medical Decision Making - Medical Decision Making 73 y/o F with multiple medical problems, currently on Lovenox for pAF presents with atraumatic bruise to LUE. Site is not tender to palpation and no concern for compartment syndrome given she does not have pain out of proportion to exam , pulses are intact, no parasthesia noted. Per patient, the bruise has also not changed in size since it first appeared. Coags show PTT of 42.7. Labs also concerning for mild VILLA; was planned to give small bolus of IVF, but patient's family not comfortable given patient's hx of pericardial effusion and CHF; stated they will give her fluids at home and will follow-up with PCP on 09/26. Return precautions discussed with patient. Stable for discharge Abnormal Lab Results 09/23/18 09/23/18 09/23/18 17:31 17:31 17:31 Monocytes % 10.8 H PTT (Actin FS) 42.7 H BUN 23 H Creatinine 1.7 H Random Glucose 168 H 09/23/18 21:44 *DC/Admit/Observation/Transfer Diagnosis at time of Disposition: Hematoma and contusion - Discharge Dispostion Disposition: HOME Condition at time of disposition: Good Decision to Admit order: No - Referrals Referrals: Sony Johnson MD [Primary Care Provider] - 3 days - Patient Instructions Printed Discharge Instructions: DI for Hematoma (Bruise) Additional Instructions: Thank you for choosing [facility]. It was a pleasure taking care of you. You were seen here for bruise to left arm. Recommend cool compresses for the first 24-48 hours and afterward, you may use warm compresses. Please be sure to follow-up with primary care doctor in 3 days Encourage hydration given results of kidney function from today's labs. Return to the Emergency Department if your symptoms worsen or persist, you have fever, shortness of breath, chest pain, severe pain of extremity, unable to feel extremity, change in color of arm, bruise starts getting larger or have other concerning symptoms. - Post Discharge Activity
== END 2018-09-23 22:06 | disposition home or self-care (01) ==
LOC: JER 16:36
DX: S40.022A Contusion of left upper arm, initial encounter (principal); Z79.01 Long term (current) use of anticoagulants; Z86.73 Personal history of transient ischemic attack (TIA), and cerebral infarction without residual deficits; I10 Essential (primary) hypertension; K58.9 Irritable bowel syndrome, unspecified; E11.9 Type 2 diabetes mellitus without complications; I71.4 Abdominal aortic aneurysm, without rupture; K21.9 Gastro-esophageal reflux disease without esophagitis; I70.1 Atherosclerosis of renal artery; Z87.891 Personal history of nicotine dependence; E78.00 Pure hypercholesterolemia, unspecified
CPT/HCPCS: 36415; 80053; 84484; 85025; 85610; 85730; 86850; 86900; 86901; 99283-25

== ENCOUNTER 2018-11-09 11:36 | Inpatient (IN) | payer OTHER ==
--- NOTE | 2018-11-09 12:03 | PDOC ---
History of Present Illness - General Chief Complaint: Vomiting/Diarrhea Stated Complaint: DIARRHEA, VOMITING Time Seen by Provider: 11/09/18 12:03 Past History - Past Medical History Allergies/Adverse Reactions: Allergies Allergy/AdvReac Type Severity Reaction Status Date / Time aspirin Allergy Severe Verified 11/09/18 11:56 Penicillins Allergy Severe Verified 11/09/18 11:56 diclofenac Allergy Verified 11/09/18 11:56 shellfish derived Allergy Verified 11/09/18 11:56 lactose AdvReac Verified 11/09/18 11:56 peanut Allergy Unknown Rash Uncoded 11/09/18 11:56 iv contrast Allergy Uncoded 11/09/18 11:56 Home Medications: Ambulatory Orders Clopidogrel Bisulfate [Plavix -] 75 mg PO DAILY 10/09/17 Diltiazem HCl [Diltiazem 24Hr Cd] 240 mg PO DAILY 10/09/17 Carvedilol [Coreg -] 25 mg PO BID tablet 12/13/17 Dorzolamide HCl [Trusopt 2% -] 1 drop OU BID drops 12/13/17 Latanoprost 0.005% Eye Drops [Xalatan 0.005% Eye Drops -] 1 drop OU HS drops Timolol 0.5% [Timoptic 0.5%] 1 drop OU BID drops 12/13/17 Colchicine [Colcrys -] 0.6 mg PO BID tablet 01/05/18 Furosemide [Lasix -] 40 mg PO DAILY tablet 01/05/18 Hydroxychloroquine So4 [Plaquenil -] 200 mg PO DAILY tablet 01/05/18 Insulin (Levemir) [Levemir Vial] 20 units SQ AM ml 01/05/18 Albuterol 2.5/Ipratropium 0.5 [Duoneb -] 1 amp NEB QID 04/27/18 Ascorbic Acid [Vitamin C] 500 mg PO DAILY 04/27/18 Ferrous Sulfate 325 mg PO DAILY 04/27/18 Insulin Detemir [Levemir Flextouch] 10 unit SQ DAILY 04/27/18 Insulin Sliding Scale [Novolog Vial Sliding Scale -] 0 ml SQ ACHS 04/27/18 Alprazolam [Xanax] 0.5 mg PO BID 09/24/18 Cyanocobalamin (Vitamin B-12) [Vitamin B-12] 500 mcg PO DAILY 09/24/18 Enoxaparin Sodium [Lovenox] 105 mg SQ DAILY 09/24/18 Linagliptin/Metformin HCl [Jentadueto 2.5 mg-500 mg Tab] 1 each PO DAILY Metoclopramide HCl [Reglan] 5 mg PO TID 09/24/18 Anemia: No Cardiac Disorders: Yes (PACEMAKER, AAA 5CM, AFIB, PERICARDITIS, PERICARDIAL EFFUSION) CVA: Yes (RIGHT ARM AND LEG WEAKNESS RESIDUAL) COPD: No CHF: Yes DVT: No Diabetes: Yes 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) GI Disorders: Yes (constipation, GERD,IBS) HTN: Yes Hypercholesterolemia: Yes - Surgical History Cardiac Surgery: Yes (PACEMAKER (2010) ; cath 09/24) - Immunization History Immunization Up to Date: Yes - Suicide/Smoking/Psychosocial Hx Smoking History: Never smoked Have you smoked in the past 12 months: No Number of Cigarettes Smoked Daily: 5 If you are a former smoker, when did you quit?: 1993 Hx Alcohol Use: No Drug/Substance Use Hx: No Substance Use Type: None Hx Substance Use Treatment: No *Physical Exam - Vital Signs Last Vital Signs Temp Pulse Resp BP Pulse Ox 97.9 F 73 16 121/67 93 L 11/09/18 11:56 11/09/18 11:56 11/09/18 11:56 11/09/18 11:56 11/09/18 11:56 Moderate Sedation - Procedure Monitoring Vital Signs: Procedure Monitoring Vital Signs Temperature 97.9 F 11/09/18 11:56 Pulse Rate 73 11/09/18 11:56 Respiratory Rate 16 11/09/18 11:56 Blood Pressure 121/67 11/09/18 11:56 O2 Sat by Pulse Oximetry (%) 93 L 11/09/18 11:56
--- NOTE | 2018-11-09 12:35 | PDOC ---
History of Present Illness - General Chief Complaint: Vomiting/Diarrhea Stated Complaint: DIARRHEA, VOMITING Time Seen by Provider: 11/09/18 12:03 History Source: Patient, Family - History of Present Illness Timing/Duration: reports: constant Quality: reports: moderate Past History - Past Medical History Allergies/Adverse Reactions: Allergies Allergy/AdvReac Type Severity Reaction Status Date / Time aspirin Allergy Severe Verified 11/09/18 11:56 Penicillins Allergy Severe Verified 11/09/18 11:56 diclofenac Allergy Verified 11/09/18 11:56 shellfish derived Allergy Verified 11/09/18 11:56 lactose AdvReac Verified 11/09/18 11:56 peanut Allergy Unknown Rash Uncoded 11/09/18 11:56 iv contrast Allergy Uncoded 11/09/18 11:56 Home Medications: Ambulatory Orders Alprazolam 1.5 mg PO HS 11/09/18 Apixaban [Eliquis] 2.5 mg PO BID 11/09/18 Carvedilol [Coreg -] 25 mg PO BID 11/09/18 Clopidogrel Bisulfate [Plavix] 75 mg PO DAILY 11/09/18 Colchicine [Colcrys -] 0.6 mg PO BID 11/09/18 Diltiazem HCl [Diltiazem 24Hr Cd] 240 mg PO DAILY 11/09/18 Donepezil HCl [Aricept] 5 mg PO DAILY 11/09/18 Dorzolamide HCl [Trusopt 2%] 1 drop OU BID 11/09/18 Ferrous Sulfate 325 mg PO DAILY 11/09/18 Furosemide [Lasix -] 40 mg PO DAILY 11/09/18 Hydroxychloroquine Sulfate [Plaquenil] 200 mg PO DAILY 11/09/18 Latanoprost 1 drop OU HS 11/09/18 Linagliptin/Metformin HCl [Jentadueto 2.5 mg-500 mg Tab] 1 each PO BID 11/09/18 Multivitamin [Multiple Vitamins] 1 each PO DAILY 11/09/18 Ondansetron [Zofran -] 4 mg PO DAILY 11/09/18 Pantoprazole Sodium 40 mg PO DAILY 11/09/18 Rosuvastatin [Crestor -] 5 mg PO HS 11/09/18 Timolol [Betimol] 1 drop OU BID 11/09/18 Ubidecarenone [Co Q-10] 0 mg PO DAILY 11/09/18 Anemia: No Cardiac Disorders: Yes (PACEMAKER, AAA 5CM, AFIB, PERICARDITIS, PERICARDIAL EFFUSION) CVA: Yes (RIGHT ARM AND LEG WEAKNESS RESIDUAL) COPD: No CHF: Yes DVT: No Diabetes: Yes 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) GI Disorders: Yes (constipation, GERD,IBS) HTN: Yes Hypercholesterolemia: Yes - Surgical History Cardiac Surgery: Yes (PACEMAKER (2010) ; cath 09/24) - Immunization History Immunization Up to Date: Yes - Suicide/Smoking/Psychosocial Hx Smoking History: Never smoked Have you smoked in the past 12 months: No Number of Cigarettes Smoked Daily: 5 If you are a former smoker, when did you quit?: 1993 Hx Alcohol Use: No Drug/Substance Use Hx: No Substance Use Type: None Hx Substance Use Treatment: No Review of Systems - Review of Systems Constitutional: No: Fever, Weakness Respiratory: No: Shortness of Breath Cardiac (ROS): No: Chest Pain ABD/GI: Yes: Diarrhea, Nausea, Vomiting, Abdominal cramping. No: Blood Streaked Bowels, Constipated, Rectal Bleeding, Tarry Stools : No: Dysuria *Physical Exam - Vital Signs Last Vital Signs Temp Pulse Resp BP Pulse Ox 97.9 F 73 16 121/67 93 L 11/09/18 11:56 11/09/18 11:56 11/09/18 11:56 11/09/18 11:56 11/09/18 11:56 - Physical Exam General Appearance: Yes: Appropriately Dressed. No: Apparent Distress HEENT: positive: Normal Voice Neck: positive: Supple Respiratory/Chest: positive: Chest Tender, Lungs Clear. negative: Normal Breath Sounds Cardiovascular: positive: Regular Rate, S1, S2 Gastrointestinal/Abdominal: positive: Normal Bowel Sounds, Tender (to epigastrium and LLQ), Soft. negative: Distended, Guarding, Rebound Musculoskeletal: negative: CVA Tenderness Integumentary: positive: Dry, Warm Neurologic: positive: Fully Oriented, Alert, Normal Mood/Affect Moderate Sedation - Procedure Monitoring Vital Signs: Procedure Monitoring Vital Signs Temperature 97.9 F 11/09/18 11:56 Pulse Rate 73 11/09/18 11:56 Respiratory Rate 16 11/09/18 11:56 Blood Pressure 121/67 11/09/18 11:56 O2 Sat by Pulse Oximetry (%) 93 L 11/09/18 11:56 ED Treatment Course - LABORATORY CBC & Chemistry Diagram: 11/09/18 12:55 11/09/18 12:55 Medical Decision Making - Medical Decision Making 11/09/18 13:00 73 yo F, h/o HTN, HLD, CHF, afib on eliquis, pericarditis, AAA, PPM, CVA w/ R sided deficits, uti, colitis, here w/ NB, watery diarrhea w/ n/v and abd pain that started several days ago. No BRBPR, melena, f/c. Of note, pt s/p admission for similar sxs > 6 months ago w/ pancolitis on CT. Cdif and other stool studies neg per records. Was tx w/ vanco/levaquin inhouse and dc to [place] w/ doxy. Was also tx for MRSA UTI while admitted. Pt ahs since returned home, not currently on abx. See exam R/o recurrent colitis Pancolitis on CT 04/25, neg cdif and stool studies Last abx was in 04/25 Stable w/ +ttp to L lower abd -pain control -zofran -IVF -labs -CT (allergic to IV dye) -anticipate admission 11/09/18 15:[address] Labs unremarkable. Will start on vanco/levaquin (similar regimen during prior admission for colitis). Will admit at this time. Case d/w Dr Goddard who rec c/w Dr Beckford who saw pt last time. *DC/Admit/Observation/Transfer Diagnosis at time of Disposition: Colitis - Discharge Dispostion Condition at time of disposition: Fair Decision to Admit order: Yes - Referrals - Patient Instructions - Post Discharge Activity
[2018-11-09] MEDS ORDERED: SODIUM CHLORIDE 500 ML IV STA ×2 (12:36→15:16)
[2018-11-09] MEDS ORDERED: ONDANSETRON 4 MG/2 ML VIAL IVPUSH ONE (12:46)
[2018-11-09] MEDS ORDERED: ACETAMINOPHEN 1000 MG/100 ML VIAL (NON FORMULARY) IVPB ONE (12:47)
--- NOTE | 2018-11-09 12:51 | PDOC ---
*Physical Exam - Vital Signs Last Vital Signs Temp Pulse Resp BP Pulse Ox 97.9 F 73 16 121/67 93 L 11/09/18 11:56 11/09/18 11:56 11/09/18 11:56 11/09/18 11:56 11/09/18 11:56 ED Treatment Course - LABORATORY CBC & Chemistry Diagram: 11/10/18 06:30 11/11/18 06:30 Medical Decision Making - Medical Decision Making 11/09/18 12:51 Pt seen by Midlevel Provider under my direct supervision Pt interviewed and examined Ancillary studies reviewed I agree with plan as outlined by Midlevel Provider *DC/Admit/Observation/Transfer Diagnosis at time of Disposition: Colitis - Discharge Dispostion Condition at time of disposition: Fair - Referrals - Patient Instructions - Post Discharge Activity
[2018-11-09] MEDS ORDERED: ACETAMINOPHEN INJECTION 100 ML IVPB ONE (12:59)
[2018-11-09] MEDS ORDERED: ONDANSETRON 4 MG/2 ML VIAL ONE (12:59)
[2018-11-09 13:26] LABS: BASO % 0.7 % (0-2.0); EOS % 1.1 % (0-4.5); HEMATOCRIT 44.8 % (32.4-45.2); HEMOGLOBIN 14.8 GM/dL (10.7-15.3); LYMPH % 34.6 % (8-40); MCH 30.3 pg (25.7-33.7); MCHC 33.1 g/dl (32.0-36.0); MEAN CELL VOLUME 91.8 fl (80-96); MONO % 10.3 % (3.8-10.2); NEUT % 53.3 % (42.8-82.8); PLATELET COUNT 255 K/MM3 (134-434); RBC 4.89 M/mm3 (3.60-5.2); RDW 13.9 % (11.6-15.6); WHITE BLOOD COUNT 6.8 K/mm3 (4.0-10.0)
[2018-11-09 13:28] LABS: URINE APPEARANCE CLEAR; URINE BILIRUBIN NEGATIVE (<2.0 mg/dL); URINE COLOR LTYELLOW; URINE GLUCOSE (UA) NEGATIVE (NEGATIVE); URINE KETONE NEGATIVE (NEGATIVE); URINE LEUK ESTERASE 3+ (NEGATIVE); URINE NITRITE NEGATIVE (NEGATIVE); URINE PROTEIN NEGATIVE (NEGATIVE); URINE UROBILINOGEN NEGATIVE mg/dL (0.2-1.0)
[2018-11-09 13:31] LABS: EPI CELLS RARE /HPF (FEW); URINE BACTERIA MANY /hpf (NONE SEEN); URINE HYALINE CAST 3 /lpf; URINE MUCUS RARE; YEAST RARE
[2018-11-09 14:49] LABS: ALBUMIN 3.7 g/dl (3.4-5.0); ALK PHOS 192 U/L (45-117); ANION GAP 8 MMOL/L (8-16); BILIRUBIN,TOTAL 0.4 mg/dL (0.2-1); BLOOD UREA NITROGEN 14 mg/dL (7-18); CALCIUM 9.5 mg/dL (8.5-10.1); CHLORIDE 102 mmol/L (98-107); CO2 27 mmol/L (21-32); CREATININE 1.7 mg/dL (0.55-1.3); GLUCOSE,RANDOM 137 mg/dL (74-106); LIPASE 145 U/L (73-393); POTASSIUM 4.2 mmol/L (3.5-5.1); SGOT/AST 48 U/L (15-37); SGPT/ALT 29 U/L (13-61); SODIUM 136 mmol/L (136-145); TOT PROT 7.5 g/dl (6.4-8.2)
[2018-11-09] MEDS ORDERED: VANCOMYCIN 1,000 MG in DEXTROSE 5%-WATER - 250 ML IVPB ONE (15:12)
[2018-11-09] MEDS ORDERED: VANCOMYCIN 1 GRAM (PRE-DOCKED) 1,000 MG/250 ML BAG IVPB ONE (16:12)
--- NOTE | 2018-11-09 18:00 | EKG ---
Test Reason : Blood Pressure : / mmHG Vent. Rate : 060 BPM Atrial Rate : 060 BPM P-R Int : 236 ms QRS Dur : 140 ms QT Int : 482 ms P-R-T Axes : 033 -04 182 degrees QTc Int : 482 ms Atrial-paced rhythm with prolonged AV conduction LEFT BUNDLE BRANCH BLOCK ABNORMAL ECG WHEN COMPARED WITH ECG OF 27-APR-2018 20:47, INVERTED T WAVES HAVE REPLACED NONSPECIFIC T WAVE ABNORMALITY IN LATERAL LEADS Confirmed by KENAN HURD MD ([id number]) on 11/09/2018 6:00:07 PM Referred By: Confirmed By:KENAN HURD MD
--- NOTE | 2018-11-09 18:09 | PN ---
Progress Note (short form) - Note Progress Note: called for consult. Spoke with NAIF Pinedo. Patient is patient of Dr. Delacruz. Asked they call Dr. Delacruz for further evaluation
--- NOTE | 2018-11-09 19:43 | HP ---
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 Cardiovascular: Yes: AFIB, HTN, Hyperlipdemia, Other (pericarditis Pericardial effusion) Gastrointestinal: Yes: GERD Renal/: Yes: Other (Renal artery stenosis) Heme/Onc: Yes: Other (DVT) Endocrine: Yes: Diabetes Mellitus - Past Surgical History Past Surgical History: Yes: , Permanent Pacemaker - Smoking History Smoking history: Never smoked Have you smoked in the past 12 months: No Aproximately how many cigarettes per day: 5 If you are a former smoker, when did you quit?: 1993 - Alcohol/Substance Use Hx Alcohol Use: No - Social History ADL: Family Assistance History of Recent Travel: No Home Medications - Allergies Allergies/Adverse Reactions: Allergies Allergy/AdvReac Type Severity Reaction Status Date / Time aspirin Allergy Severe Verified 11/09/18 11:56 Penicillins Allergy Severe Verified 11/09/18 11:56 diclofenac Allergy Verified 11/09/18 11:56 shellfish derived Allergy Verified 11/09/18 11:56 lactose AdvReac Verified 11/09/18 11:56 peanut Allergy Unknown Rash Uncoded 11/09/18 11:56 iv contrast Allergy Uncoded 11/09/18 11:56 - Home Medications Home Medications: Ambulatory Orders Alprazolam 1.5 mg PO HS 11/09/18 Apixaban [Eliquis] 2.5 mg PO BID 11/09/18 Carvedilol [Coreg -] 25 mg PO BID 11/09/18 Clopidogrel Bisulfate [Plavix] 75 mg PO DAILY 11/09/18 Colchicine [Colcrys -] 0.6 mg PO BID 11/09/18 Diltiazem HCl [Diltiazem 24Hr Cd] 240 mg PO DAILY 11/09/18 Donepezil HCl [Aricept] 5 mg PO DAILY 11/09/18 Dorzolamide HCl [Trusopt 2%] 1 drop OU BID 11/09/18 Ferrous Sulfate 325 mg PO DAILY 11/09/18 Furosemide [Lasix -] 40 mg PO DAILY 11/09/18 Hydroxychloroquine Sulfate [Plaquenil] 200 mg PO DAILY 11/09/18 Latanoprost 1 drop OU HS 11/09/18 Linagliptin/Metformin HCl [Jentadueto 2.5 mg-500 mg Tab] 1 each PO BID 11/09/18 Multivitamin [Multiple Vitamins] 1 each PO DAILY 11/09/18 Ondansetron [Zofran -] 4 mg PO DAILY 11/09/18 Pantoprazole Sodium 40 mg PO DAILY 11/09/18 Rosuvastatin [Crestor -] 5 mg PO HS 11/09/18 Timolol [Betimol] 1 drop OU BID 11/09/18 Ubidecarenone [Co Q-10] 0 mg PO DAILY 11/09/18 Physical Examination Vital Signs: Vital Signs Temperature 97.9 F 11/09/18 11:56 Pulse Rate 73 11/09/18 11:56 Respiratory Rate 16 11/09/18 11:56 Blood Pressure 121/67 11/09/18 11:56 O2 Sat by Pulse Oximetry (%) 93 L 11/09/18 11:56 Labs: CBC, BMP 11/09/18 12:55 11/09/18 12:55
[2018-11-09] MEDS: CARVEDILOL 25 MG TABLET (FP) PO SCH (21:38)
[2018-11-09] MEDS: metFORMIN HCL 500 MG TABLET (FP) PO SCH (21:38)
[2018-11-09] MEDS: COLCHICINE 0.6 MG TABLET (FP) PO SCH (21:39)
[2018-11-09] MEDS: ROSUVASTATIN CA 5 MG TABLET (FP) PO SCH (21:39)
[2018-11-09] MEDS: ALPRAZolam 0.25 MG TABLET PO SCH (21:39)
[2018-11-09] MEDS: APIXABAN 2.5 MG TABLET PO SCH (21:39)
[2018-11-09] MEDS: INSULIN SLIDING SCALE (NOVOLOG) 1 VIAL SQ SCH (21:39)
[2018-11-09] MEDS ORDERED: PATIENT'S OWN MEDICATION (NON-FORMULARY) (Linagliptin/Metformin Hcl [Jentadueto 2.5 Mg-500 PO SCH (22:00)
[2018-11-09] MEDS ORDERED: PT OWN MED DRAWER 7, Y5N ONE (22:19)
[2018-11-09] MEDS: TIMOLOL 0.5% OPHTHALMIC SOL 5 ML BOTTLE OU SCH (23:14)
[2018-11-09] MEDS: DORZOLAMIDE 2% HCL OPHTHALMIC SOLUTION 10 ML BOTTLE OU SCH (23:14)
[2018-11-09] MEDS: LATANOPROST 0.005% OPHTH SOLN 2.5ML BOTTLE OU SCH (23:15)
[2018-11-10] MEDS ORDERED: PT OWN MED DRAWER 7, Y5N ONE ×4 (04:14→21:55)
[2018-11-10] MEDS: INSULIN SLIDING SCALE (NOVOLOG) 1 VIAL SQ SCH ×4 (06:19→21:46)
[2018-11-10 07:28] LABS: BASO % 0.6 % (0-2.0); EOS % 1.3 % (0-4.5); HEMATOCRIT 38.3 % (32.4-45.2); HEMOGLOBIN 13.5 GM/dL (10.7-15.3); LYMPH % 38.2 % (8-40); MCH 32.1 pg (25.7-33.7); MCHC 35.1 g/dl (32.0-36.0); MEAN CELL VOLUME 91.5 fl (80-96); MEAN PLT VOLUME 9.3 fl (7.5-11.1); MONO % 11.2 % (3.8-10.2); NEUT % 48.7 % (42.8-82.8); PLATELET COUNT 217 K/MM3 (134-434); RBC 4.19 M/mm3 (3.60-5.2); RDW 13.2 % (11.6-15.6); WHITE BLOOD COUNT 4.9 K/mm3 (4.0-10.0)
[2018-11-10 08:27] LABS: ALBUMIN 3.2 g/dl (3.4-5.0); ALK PHOS 160 U/L (45-117); ANION GAP 8 MMOL/L (8-16); BILIRUBIN,TOTAL 0.4 mg/dL (0.2-1); BLOOD UREA NITROGEN 13 mg/dL (7-18); CALCIUM 9.4 mg/dL (8.5-10.1); CHLORIDE 105 mmol/L (98-107); CO2 27 mmol/L (21-32); CREATININE 1.6 mg/dL (0.55-1.3); GLUCOSE,RANDOM 88 mg/dL (74-106); POTASSIUM 3.8 mmol/L (3.5-5.1); SGOT/AST 33 U/L (15-37); SGPT/ALT 24 U/L (13-61); SODIUM 140 mmol/L (136-145); TOT PROT 6.4 g/dl (6.4-8.2)
[2018-11-10] MEDS: CARVEDILOL 25 MG TABLET (FP) PO SCH ×2 (09:18→21:44)
[2018-11-10] MEDS: COLCHICINE 0.6 MG TABLET (FP) PO SCH ×2 (09:18→21:44)
[2018-11-10] MEDS: sitaGLIPtin PHOSPHATE 25 MG TABLET (FP) PO SCH (09:18)
[2018-11-10] MEDS: APIXABAN 2.5 MG TABLET PO SCH ×2 (09:18→21:44)
[2018-11-10] MEDS: FERROUS SO4 325 MG TABLET (FP) PO SCH (09:18)
[2018-11-10] MEDS: CLOPIDOGREL BISULFATE 75 MG TABLET (FP) PO SCH (09:18)
[2018-11-10] MEDS: FUROSEMIDE 40 MG TABLET (FP) PO SCH (09:18)
[2018-11-10] MEDS: PANTOPRAZOLE 40 MG TABLET (FP) PO SCH (09:18)
[2018-11-10] MEDS: ONDANSETRON 4 MG TABLET PO SCH (09:18)
[2018-11-10] MEDS: metFORMIN HCL 500 MG TABLET (FP) PO SCH ×3 (09:19→18:24)
[2018-11-10] MEDS: DORZOLAMIDE 2% HCL OPHTHALMIC SOLUTION 10 ML BOTTLE OU SCH ×2 (09:28→21:45)
[2018-11-10] MEDS: TIMOLOL 0.5% OPHTHALMIC SOL 5 ML BOTTLE OU SCH ×2 (09:29→21:35)
[2018-11-10] MEDS: HYDROXYCHLOROQUINE SO4 200 MG TABLET (FP) PO SCH (11:34)
--- NOTE | 2018-11-10 11:56 | CON.GI ---
Consult Consult Specialty:: Gastroenterology Referred by:: Dr. Sugar Goddard Reason for Consultation:: Recurrent Colitis - History of Present Illness Chief Complaint: Abdominal pain and diarrhea History of Present Illness: Patient is a 73 year old female patient with past medical history of DM, antiphospholipid syndrome, s/p colonoscopy on 08/2016 (redundant sigmoid colon, rectal polyp),HTN, HLD, CHF, Afib (on eliquis), Pericarditis, AAA 4.6 cm s/p repair. Patient was admitted on 11/09/18 for abdominal pain and non-bloody diarrhea. Patient presented to ED with complaints of non-bloody diarrhea since 11/07/18 with vomiting x 2 episodes at home. Patient states diarrhea is worse at night and awakens her from sleep. Denies recent travel, denies sick contacts , denies fever or recent ABT. Patient states experiencing paint to LLQ and epigastric area. States having episode black colored stool this morning. CT scan showed diffuse colitis, most marked involving the transverse colon. 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 Cardio/Vascular: Yes: AFIB, HTN, Hyperlipdemia, Other (pericarditis Pericardial effusion) Gastrointestinal: Yes: GERD Renal/: Yes: Other (Renal artery stenosis) ...: No Endocrine: Yes: Diabetes Mellitus - Past Surgical History Past Surgical History: Yes: , Permanent Pacemaker - Alcohol/Substance Use Hx Alcohol Use: No - Smoking History Smoking history: Former smoker Have you smoked in the past 12 months: No Aproximately how many cigarettes per day: 5 If you are a former smoker, when did you quit?: 1993 - Social History Usual Living Arrangement: Custodial ADL: Family Assistance History of Recent Travel: No Home Medications - Allergies Allergies/Adverse Reactions: Allergies Allergy/AdvReac Type Severity Reaction Status Date / Time aspirin Allergy Severe Verified 11/09/18 11:56 Penicillins Allergy Severe Verified 11/09/18 11:56 diclofenac Allergy Verified 11/09/18 11:56 shellfish derived Allergy Verified 11/09/18 11:56 lactose AdvReac Verified 11/09/18 11:56 peanut Allergy Unknown Rash Uncoded 11/09/18 11:56 iv contrast Allergy Uncoded 11/09/18 11:56 - Home Medications Home Medications: Ambulatory Orders Alprazolam 1.5 mg PO HS 11/09/18 Apixaban [Eliquis] 2.5 mg PO BID 11/09/18 Carvedilol [Coreg -] 25 mg PO BID 11/09/18 Clopidogrel Bisulfate [Plavix] 75 mg PO DAILY 11/09/18 Colchicine [Colcrys -] 0.6 mg PO BID 11/09/18 Diltiazem HCl [Diltiazem 24Hr Cd] 240 mg PO DAILY 11/09/18 Donepezil HCl [Aricept] 5 mg PO DAILY 11/09/18 Dorzolamide HCl [Trusopt 2%] 1 drop OU BID 11/09/18 Ferrous Sulfate 325 mg PO DAILY 11/09/18 Furosemide [Lasix -] 40 mg PO DAILY 11/09/18 Hydroxychloroquine Sulfate [Plaquenil] 200 mg PO DAILY 11/09/18 Latanoprost 1 drop OU HS 11/09/18 Linagliptin/Metformin HCl [Jentadueto 2.5 mg-500 mg Tab] 1 each PO BID 11/09/18 Multivitamin [Multiple Vitamins] 1 each PO DAILY 11/09/18 Ondansetron [Zofran -] 4 mg PO DAILY 11/09/18 Pantoprazole Sodium 40 mg PO DAILY 11/09/18 Rosuvastatin [Crestor -] 5 mg PO HS 11/09/18 Timolol [Betimol] 1 drop OU BID 11/09/18 Ubidecarenone [Co Q-10] 0 mg PO DAILY 11/09/18 Review of Systems - Review of Systems Constitutional: reports: No Symptoms Eyes: reports: Floaters HENT: reports: No Symptoms Neck: reports: No Symptoms Gastrointestinal: reports: Abdominal Pain (LLQ and epigastric), Diarrhea, Melena Genitourinary: reports: Incontinence Musculoskeletal: reports: Muscle Weakness Integumentary: reports: No Symptoms Neurological: reports: No Symptoms Endocrine: reports: No Symptoms Hematology/Lymphatic: reports: No Symptoms Psychiatric: reports: No Symptoms Physical Exam-GI Vital Signs: Vital Signs Temperature 97.9 F 11/10/18 09:28 Pulse Rate 62 11/10/18 09:28 Respiratory Rate 18 11/10/18 09:28 Blood Pressure 168/65 11/10/18 09:28 O2 Sat by Pulse Oximetry (%) 98 11/10/18 10:00 Constitutional: Yes: Mild Distress, Obese Eyes: Yes: Conjunctiva Clear Cardiovascular: Yes: Regular Rate and Rhythm Respiratory: Yes: Regular, CTA Bilaterally Gastrointestinal Inspection: Yes: WNL ...Auscultate: Yes: Normoactive Bowel Sounds ...Palpate: Yes: Soft, Tenderness (generalized tenderness). No: Firm/Rigid, Guarding, Hepatomegaly, Mass, Splenomegaly ...Percussion: Yes: Tympanitic Musculoskeletal: Yes: Muscle Weakness Extremities: Yes: WNL Edema: No Integumentary: Yes: WNL Neurological: Yes: Alert, Oriented Psychiatric: Yes: Alert, Oriented Labs: CBC, BMP 11/10/18 06:30 11/10/18 06:30 Hepatic Panel Total Bilirubin 0.4 mg/dL (0.2-1) 11/10/18 06:30 AST 33 U/L (15-37) 11/10/18 06:30 ALT 24 U/L (13-61) 11/10/18 06:30 Alkaline Phosphatase 160 U/L (45-117) H 11/10/18 06:30 Albumin 3.2 g/dl (3.4-5.0) L 11/10/18 06:30 Home Medications Medication Instructions Recorded Alprazolam 1.5 mg PO HS 11/09/18 Apixaban [Eliquis] 2.5 mg PO BID 11/09/18 Carvedilol [Coreg -] 25 mg PO BID 11/09/18 Clopidogrel Bisulfate [Plavix] 75 mg PO DAILY 11/09/18 Colchicine [Colcrys -] 0.6 mg PO BID 11/09/18 Diltiazem HCl [Diltiazem 24Hr Cd] 240 mg PO DAILY 11/09/18 Donepezil HCl [Aricept] 5 mg PO DAILY 11/09/18 Dorzolamide HCl [Trusopt 2%] 1 drop OU BID 11/09/18 Ferrous Sulfate 325 mg PO DAILY 11/09/18 Furosemide [Lasix -] 40 mg PO DAILY 11/09/18 Hydroxychloroquine Sulfate 200 mg PO DAILY 11/09/18 [Plaquenil] Latanoprost 1 drop OU HS 11/09/18 Linagliptin/Metformin HCl 1 each PO BID 11/09/18 [Jentadueto 2.5 mg-500 mg Tab] Multivitamin [Multiple Vitamins] 1 each PO DAILY 11/09/18 Ondansetron [Zofran -] 4 mg PO DAILY 11/09/18 Pantoprazole Sodium 40 mg PO DAILY 11/09/18 Rosuvastatin [Crestor -] 5 mg PO HS 11/09/18 Timolol [Betimol] 1 drop OU BID 11/09/18 Ubidecarenone [Co Q-10] 0 mg PO DAILY 11/09/18 Imaging - Results Cat Scan: Report Reviewed Problem List - Problems (1) Colitis Assessment/Plan: R>start on Levaquin 500mg IVPB daily and Flagyl 500mg IVPB q8h daily IV hydration with NS 100cc/hr order stool caloprectin, stool culture, stool WBC abdominal pain secondary to ischemic colitis with underlying intestinal angina Vascular consult Code(s): K52.9 - NONINFECTIVE GASTROENTERITIS AND COLITIS, UNSPECIFIED (2) Ischemic colitis Code(s): K55.9 - VASCULAR DISORDER OF INTESTINE, UNSPECIFIED (3) Intestinal angina Assessment/Plan: vs chronic mesenteric ischemia R> CTA once creatinine is normal keep well hydrated Dr Beckford covering Code(s): K55.1 - CHRONIC VASCULAR DISORDERS OF INTESTINE
[2018-11-10] MEDS: SODIUM CHLORIDE 1,000 ML IV SCH (14:31)
[2018-11-10] MEDS ORDERED: oxyCODONE HCL 5 MG TABLET PO PRN (15:28)
--- NOTE | 2018-11-10 15:33 | PN ---
Physical Exam: SUBJECTIVE: Patient seen and examined. She is having lower abdominal cramping and diarrhea. OBJECTIVE: Vital Signs Period Temp Pulse Resp BP Sys/[place] Pulse Ox Last 24 Hr 97.3 F-98.4 F 60-70 16-18 144-168/62-72 98-99 GENERAL: The patient is awake, alert, and fully oriented, in no acute distress. LUNGS: Breath sounds equal, clear to auscultation bilaterally, no wheezes, no crackles, no accessory muscle use. HEART: Regular rate and rhythm, S1, S2 without murmur, rub or gallop. ABDOMEN: Soft, (+) LLQ/RLQ tenderness, nondistended, normoactive bowel sounds, no guarding, no rebound, no hepatosplenomegaly, no masses. EXTREMITIES: 2+ pulses, warm, well-perfused, no edema. Laboratory Results - last 24 hr 11/09/18 11/10/18 11/10/18 21:35 05:49 06:30 WBC 4.9 RBC 4.19 Hgb 13.5 Hct 38.3 MCV 91.5 MCH 32.1 MCHC 35.1 RDW 13.2 Plt Count 217 MPV 9.3 Absolute Neuts (auto) 2.4 Neutrophils % 48.7 Lymphocytes % 38.2 Monocytes % 11.2 H Eosinophils % 1.3 Basophils % 0.6 Nucleated RBC % 0 Sodium Potassium Chloride Carbon Dioxide Anion Gap BUN Creatinine Creat Clearance w eGFR POC Glucometer 108 109 Random Glucose Calcium Total Bilirubin AST ALT Alkaline Phosphatase Total Protein Albumin 11/10/18 11/10/18 06:30 11:32 WBC RBC Hgb Hct MCV MCH MCHC RDW Plt Count MPV Absolute Neuts (auto) Neutrophils % Lymphocytes % Monocytes % Eosinophils % Basophils % Nucleated RBC % Sodium 140 Potassium 3.8 Chloride 105 Carbon Dioxide 27 Anion Gap 8 BUN 13 Creatinine 1.6 H Creat Clearance w eGFR 31.51 POC Glucometer 112 Random Glucose 88 Calcium 9.4 Total Bilirubin 0.4 AST 33 ALT 24 Alkaline Phosphatase 160 H Total Protein 6.4 Albumin 3.2 L Active Medications Generic Name Dose Route Start Last Admin Trade Name Freq PRN Reason Stop Dose Admin Acetaminophen 650 mg 11/10/18 15:29 Tylenol - PO Q4H PRN PAIN LEVEL 1 - 3 Alprazolam 1.5 mg 11/09/18 22:00 11/09/18 21:39 Xanax - PO 1.5 mg HS JONAS Administration Apixaban 2.5 mg 11/09/18 22:00 11/10/18 09:18 Eliquis - PO 2.5 mg BID JONAS Administration Carvedilol 25 mg 11/09/18 22:00 11/10/18 09:18 Coreg - PO 25 mg BID JONAS Administration Clopidogrel Bisulfate 75 mg 11/10/18 10:00 11/10/18 09:18 Plavix - PO 75 mg DAILY JONAS Administration Colchicine 0.6 mg 11/09/18 22:00 11/10/18 09:18 Colcrys - PO 0.6 mg BID OJNAS Administration Diltiazem HCl 240 mg 11/10/18 10:00 11/10/18 09:18 Cardizem Cd - PO 240 mg DAILY JONAS Administration Donepezil HCl 5 mg 11/10/18 22:00 Aricept - PO HS JONAS Dorzolamide HCl 1 drop 11/09/18 22:00 11/10/18 09:28 Trusopt 2% OU 1 drop BID JONAS Administration Ferrous Sulfate 325 mg 11/10/18 10:00 11/10/18 09:18 Feosol - PO 325 mg DAILY JONAS Administration Furosemide 40 mg 11/10/18 10:00 11/10/18 09:18 Lasix - PO 40 mg DAILY JONAS Administration Hydroxychloroquine Sulfate 200 mg 11/10/18 10:00 11/10/18 11:34 Plaquenil - PO 200 mg DAILY JONAS Administration Levofloxacin 500 mg in 100 mls @ 100 mls/hr 11/11/18 10:00 Levaquin 500 Mg Premixed Ivpb - IVPB 11/17/18 09:59 DAILY JONAS Metronidazole 500 mg in 100 mls @ 100 mls/hr 11/10/18 12:30 11/10/18 14:31 Flagyl 500mg Premixed Ivpb - IVPB 100 mls/hr Q8H-IV JONAS Administration Sodium Chloride 1,000 mls @ 100 mls/hr 11/10/18 12:30 11/10/18 14:31 Normal Saline - IV 11/12/18 22:29 100 mls/hr ASDIR JONAS Administration Insulin Aspart 1 vial 11/09/18 22:00 11/10/18 11:34 Novolog Vial Sliding Scale - SQ Not Given ACHS JONAS Protocol Latanoprost 1 drop 11/09/18 22:00 11/09/18 23:15 Xalatan 0.005% Eye Drops - OU Not Given HS JONAS Metformin HCl 500 mg 11/09/18 20:00 11/10/18 09:19 Glucophage - PO Not Given BIDAC JONAS Morphine Sulfate 1 mg 11/10/18 15:29 Morphine Injection - IVPUSH Q4H PRN PAIN LEVEL 7 - 10 Ondansetron HCl 4 mg 11/10/18 10:00 11/10/18 09:18 Zofran - PO 4 mg DAILY JONAS Administration Oxycodone HCl 5 mg 11/10/18 15:28 Roxicodone - PO Q6H PRN PAIN LEVEL 4 - 6 Pantoprazole Sodium 40 mg 11/10/18 10:00 11/10/18 09:18 Protonix - PO 40 mg DAILY JONAS Administration Rosuvastatin Calcium 5 mg 11/09/18 22:00 11/09/18 21:39 Crestor - PO 5 mg HS JONAS Administration Sitagliptin Phosphate 25 mg 11/10/18 07:00 11/10/18 09:18 Januvia - PO Not Given DAILY@0700 JONAS Timolol Maleate 1 drop 11/09/18 22:00 11/10/18 09:29 Timoptic 0.5% OU 1 drop BID JONAS Administration ASSESSMENT/PLAN: This is a 73 year old woman with a history of CVA with right hemiparesis, PAF, HTN, hyperlipdemia, CAD, GERD, colitis, PAD, renal artery stenosis, DVT, type 2 DM, AAA, pacemaker 1. Acute colitis, recurrent - Afebrile, normal WBC - Continue Levaquin, Flagyl, IV fluid - Stool (+) C. diff Ag, (-) C. diff toxin - ID consult - Vascular evaluation for possible ischemic colitis 2. Acute kidney injury on stage 3 CKD - Secondary to dehydration from diarrhea, diuretics - Hold metformin - Continue IV fluid - Monitor creatinine 3. CAD, history of stent - Continue Coreg, Plavix, Crestor 4. HTN - Continue Coreg, Cardizem CD, Lasix 5. Hyperlipidemia - Continue Crestor 6. Paroxysmal atrial fibrillation - Continue Coreg, Cardizem CD, Eliquis 7. Type 2 diabetes mellitus - Continue Januvia, Novolog sliding scale - Hold metformin - has creatinine 1.[address] with IV contrast 8. History of DVT, hypercoagulable state - Developed DVT while on Coumadin, so was changed to Lovenox which caused hematomas, now on Eliquis 9. PAD - Continue Plavix 10. Renal artery stenosis 11. AAA, history of repair 12. Right hemiparesis secondary to old CVA - Continue Plavix, Crestor 13 History of pacemaker 14. Possible connective tissue disorder - Continue Plaquenil Visit type - Emergency Visit Emergency Visit: Yes ED Registration Date: 11/09/18 Care time: The patient presented to the Emergency Department on the above date and was hospitalized for further evaluation of their emergent condition. - New Patient This patient is new to me today: Yes Date on this admission: 11/10/18 - Critical Care Critical Care patient: No - Discharge Referral Referred to [facility] No
--- NOTE | 2018-11-10 15:50 | CON.ID ---
Consult Consult Specialty:: infectious diseases Referred by:: Reason for Consultation:: colitis,cdiff - History of Present Illness Chief Complaint: abd pain,dirrhoea,constipation History of Present Illness: 73 yo F, h/o HTN, HLD, CHF, afib on eliquis, pericarditis, AAA, PPM, CVA w/ R sided deficits, uti, colitis, here w/ NB, watery diarrhea w/ n/v and abd pain that started several days ago. No BRBPR, melena, f/c. Of note, pt s/p admission for similar sxs > 6 months ago w/ pancolitis on CT. Cdif and other stool studies neg per records. Was tx w/ vanco/levaquin inhouse and dc to [place] w/ doxy. Was also tx for MRSA UTI while admitted. Pt ahs since returned home, not currently on abx. 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 Cardio/Vascular: Yes: AFIB, HTN, Hyperlipdemia, Other (pericarditis Pericardial effusion) Gastrointestinal: Yes: GERD Renal/: Yes: Other (Renal artery stenosis) ...: No Endocrine: Yes: Diabetes Mellitus - Past Surgical History Past Surgical History: Yes: , Permanent Pacemaker - Alcohol/Substance Use Hx Alcohol Use: No - Smoking History Smoking history: Former smoker Have you smoked in the past 12 months: No Aproximately how many cigarettes per day: 5 If you are a former smoker, when did you quit?: 1993 - Social History Usual Living Arrangement: Senior Living ADL: Family Assistance History of Recent Travel: No Home Medications - Allergies Allergies/Adverse Reactions: Allergies Allergy/AdvReac Type Severity Reaction Status Date / Time aspirin Allergy Severe Verified 11/09/18 11:56 Penicillins Allergy Severe Verified 11/09/18 11:56 diclofenac Allergy Verified 11/09/18 11:56 shellfish derived Allergy Verified 11/09/18 11:56 lactose AdvReac Verified 11/09/18 11:56 peanut Allergy Unknown Rash Uncoded 11/09/18 11:56 iv contrast Allergy Uncoded 11/09/18 11:56 - Home Medications Home Medications: Ambulatory Orders Apixaban [Eliquis] 2.5 mg PO BID 11/09/18 Carvedilol [Coreg -] 25 mg PO BID 11/09/18 Clopidogrel Bisulfate [Plavix] 75 mg PO DAILY 11/09/18 Colchicine [Colcrys -] 0.6 mg PO BID 11/09/18 Diltiazem HCl [Diltiazem 24Hr Cd] 240 mg PO DAILY 11/09/18 Donepezil HCl [Aricept] 5 mg PO DAILY 11/09/18 Dorzolamide HCl [Trusopt 2%] 1 drop OU BID 11/09/18 Furosemide [Lasix -] 40 mg PO DAILY 11/09/18 Hydroxychloroquine Sulfate [Plaquenil] 200 mg PO DAILY 11/09/18 Linagliptin/Metformin HCl [Jentadueto 2.5 mg-500 mg Tab] 1 each PO BID 11/09/18 Multivitamin [Multiple Vitamins] 1 each PO DAILY 11/09/18 Ondansetron [Zofran -] 4 mg PO DAILY 11/09/18 RX: Alprazolam 1.5 mg PO HS 11/09/18 RX: Ferrous Sulfate 325 mg PO DAILY 11/09/18 RX: Latanoprost 1 drop OU HS 11/09/18 RX: Pantoprazole Sodium 40 mg PO DAILY 11/09/18 Rosuvastatin [Crestor -] 5 mg PO HS 11/09/18 Timolol [Betimol] 1 drop OU BID 11/09/18 Ubidecarenone [Co Q-10] 0 mg PO DAILY 11/09/18 Review of Systems - Review of Systems Constitutional: reports: Loss of Appetite Eyes: reports: No Symptoms HENT: reports: No Symptoms Neck: reports: No Symptoms Cardiovascular: reports: No Symptoms Gastrointestinal: reports: Abdominal Pain, Diarrhea Genitourinary: reports: No Symptoms Musculoskeletal: reports: No Symptoms Integumentary: reports: No Symptoms Neurological: reports: No Symptoms Endocrine: reports: No Symptoms Hematology/Lymphatic: reports: No Symptoms Psychiatric: reports: No Symptoms Physical Exam Vital Signs: Vital Signs Temperature 97.6 F 11/10/18 14:35 Pulse Rate 60 11/10/18 14:35 Respiratory Rate 18 11/10/18 14:35 Blood Pressure 157/68 11/10/18 14:35 O2 Sat by Pulse Oximetry (%) 98 11/10/18 10:00 Constitutional: Yes: Well Nourished, Calm, Mild Distress Eyes: Yes: Conjunctiva Clear HENT: Yes: Atraumatic, Normocephalic Neck: Yes: Supple, Trachea Midline Cardiovascular: Yes: Pulse Irregular Respiratory: Yes: Regular, CTA Bilaterally Gastrointestinal: Yes: Normal Bowel Sounds, Soft, Tenderness Integumentary: Yes: WNL Neurological: Yes: Alert, Oriented Psychiatric: Yes: Alert, Oriented Labs: CBC, BMP 11/10/18 06:30 11/10/18 06:30 Imaging - Results Chest X-ray: Report Reviewed, Image Reviewed Cat Scan: Report Reviewed, Image Reviewed Assessment/Plan This is a 73 year old woman with a history of CVA with right hemiparesis, PAF, HTN, hyperlipdemia, CAD, GERD, colitis, PAD, renal artery stenosis, DVT, type 2 DM, AAA, pacemaker 1. Acute colitis, recurrent 2. Acute kidney injury on stage 3 CKD 3. CAD, history of stent 4. HTN 5. Hyperlipidemia 6. Paroxysmal atrial fibrillation 7. Type 2 diabetes mellitus 8. History of DVT, hypercoagulable state 9. PAD 10. Renal artery stenosis 11. AAA, history of repair 12. Right hemiparesis secondary to old CVA plan will start patient on aztreonam continue oral vanco and iv flagyl rest as per the team gi to see the patient
--- NOTE | 2018-11-10 16:23 | CONSULT ---
Consult Reason for Consultation:: Abdominal pain, rule out ischemic colits. 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 Cardio/Vascular: Yes: AFIB, HTN, Hyperlipdemia, Other (pericarditis Pericardial effusion) Gastrointestinal: Yes: GERD Renal/: Yes: Other (Renal artery stenosis) ...: No Endocrine: Yes: Diabetes Mellitus - Past Surgical History Past Surgical History: Yes: , Permanent Pacemaker - Alcohol/Substance Use Hx Alcohol Use: No - Smoking History Smoking history: Former smoker Have you smoked in the past 12 months: No Aproximately how many cigarettes per day: 5 If you are a former smoker, when did you quit?: 1993 - Social History Usual Living Arrangement: Senior Care ADL: Family Assistance History of Recent Travel: No Home Medications - Allergies Allergies/Adverse Reactions: Allergies Allergy/AdvReac Type Severity Reaction Status Date / Time aspirin Allergy Severe Verified 11/09/18 11:56 Penicillins Allergy Severe Verified 11/09/18 11:56 diclofenac Allergy Verified 11/09/18 11:56 shellfish derived Allergy Verified 11/09/18 11:56 lactose AdvReac Verified 11/09/18 11:56 peanut Allergy Unknown Rash Uncoded 11/09/18 11:56 iv contrast Allergy Uncoded 11/09/18 11:56 - Home Medications Home Medications: Ambulatory Orders Alprazolam 1.5 mg PO HS 11/09/18 Apixaban [Eliquis] 2.5 mg PO BID 11/09/18 Carvedilol [Coreg -] 25 mg PO BID 11/09/18 Clopidogrel Bisulfate [Plavix] 75 mg PO DAILY 11/09/18 Colchicine [Colcrys -] 0.6 mg PO BID 11/09/18 Diltiazem HCl [Diltiazem 24Hr Cd] 240 mg PO DAILY 11/09/18 Donepezil HCl [Aricept] 5 mg PO DAILY 11/09/18 Dorzolamide HCl [Trusopt 2%] 1 drop OU BID 11/09/18 Ferrous Sulfate 325 mg PO DAILY 11/09/18 Furosemide [Lasix -] 40 mg PO DAILY 11/09/18 Hydroxychloroquine Sulfate [Plaquenil] 200 mg PO DAILY 11/09/18 Latanoprost 1 drop OU HS 11/09/18 Linagliptin/Metformin HCl [Jentadueto 2.5 mg-500 mg Tab] 1 each PO BID 11/09/18 Multivitamin [Multiple Vitamins] 1 each PO DAILY 11/09/18 Ondansetron [Zofran -] 4 mg PO DAILY 11/09/18 Pantoprazole Sodium 40 mg PO DAILY 11/09/18 Rosuvastatin [Crestor -] 5 mg PO HS 11/09/18 Timolol [Betimol] 1 drop OU BID 11/09/18 Ubidecarenone [Co Q-10] 0 mg PO DAILY 11/09/18 Review of Systems - Review of Systems Constitutional: reports: No Symptoms Eyes: reports: No Symptoms HENT: reports: No Symptoms Neck: reports: No Symptoms Cardiovascular: reports: No Symptoms Respiratory: reports: No Symptoms Gastrointestinal: reports: Abdominal Pain, Diarrhea, Nausea, Vomiting Genitourinary: reports: No Symptoms Musculoskeletal: reports: No Symptoms Integumentary: reports: No Symptoms Neurological: reports: No Symptoms Endocrine: reports: No Symptoms Hematology/Lymphatic: reports: No Symptoms Psychiatric: reports: No Symptoms Physical Exam Vital Signs: Vital Signs Temperature 97.6 F 11/10/18 14:35 Pulse Rate 60 11/10/18 14:35 Respiratory Rate 18 11/10/18 14:35 Blood Pressure 157/68 11/10/18 14:35 O2 Sat by Pulse Oximetry (%) 98 11/10/18 10:00 Constitutional: Yes: Well Nourished, No Distress, Calm Eyes: Yes: WNL, Conjunctiva Clear, EOM Intact HENT: Yes: WNL, Atraumatic, Normocephalic Neck: Yes: WNL, Supple, Trachea Midline Cardiovascular: Yes: WNL, Regular Rate and Rhythm Respiratory: Yes: WNL, Regular, CTA Bilaterally Gastrointestinal: Yes: WNL, Normal Bowel Sounds ...Rectal Exam: Yes: WNL Renal/: Yes: WNL Breast(s): Yes: WNL Musculoskeletal: Yes: WNL Extremities: Yes: WNL Peripheral Pulses WNL: Yes Integumentary: Yes: WNL Neurological: Yes: WNL, Alert, Oriented ...Motor Strength: WNL Psychiatric: Yes: WNL Labs: CBC, BMP 11/10/18 06:30 11/10/18 06:30 Problem List - Problems (1) Colitis Assessment/Plan: Pt seen and examined with associate agent insurance sales. Pt has been having abdominal pain for the last 4 days with chip. Pt has had past episodes of abdominal pain that were treated in [facility]. Pt recently had AAA repair performed at [facility] in sep 2018. Up until 4 days ago, pt was doing fine. Pt was eating well. Pt does not report any food fear, or any weight loss. On exam - pt has diffuse abdominal pain. Mainly in LLQ. CT abdomen -- shows diffuse colitis. Mainly in transverse colon. The CT was not done with contrast. So we can not see the mesenteric vessels. Very unlikely this is mesenteric ischemia. She does not have any food fear or weight loss. She was eating a healthy diet prior to this episode. Pt would need a mesenteric CTA to look at the mesenteric vessels once Creatinine comes down. Continue IV antibiotics Chalo Stroud DO Code(s): K52.9 - NONINFECTIVE GASTROENTERITIS AND COLITIS, UNSPECIFIED
[2018-11-10] MEDS: AZTREONAM 1 GM in DEXTROSE 5%-WATER - 50 ML IVPB SCH ×2 (16:30→21:54)
[2018-11-10] MEDS: MORPHINE SULFATE 2 MG/ML VIAL IVPUSH PRN (16:30)
[2018-11-10] MEDS: VANCOMYCIN 250 MG/5 ML ORAL SOLUTION PO SCH ×2 (17:43→23:55)
[2018-11-10] MEDS: ALPRAZolam 0.25 MG TABLET PO SCH (21:44)
[2018-11-10] MEDS: DONEPEZIL HCL 5 MG TABLET (FP) PO SCH (21:45)
[2018-11-10] MEDS: ROSUVASTATIN CA 5 MG TABLET (FP) PO SCH (21:45)
[2018-11-10] MEDS: LATANOPROST 0.005% OPHTH SOLN 2.5ML BOTTLE OU SCH (21:46)
[2018-11-11] MEDS ORDERED: PT OWN MED DRAWER 7, Y5N ONE ×2 (01:15→17:30)
[2018-11-11] MEDS: AZTREONAM 1 GM in DEXTROSE 5%-WATER - 50 ML IVPB SCH ×3 (02:27→17:33)
[2018-11-11] MEDS: SODIUM CHLORIDE 1,000 ML IV SCH ×2 (04:30→11:48)
[2018-11-11] MEDS: sitaGLIPtin PHOSPHATE 25 MG TABLET (FP) PO SCH (06:25)
[2018-11-11] MEDS: INSULIN SLIDING SCALE (NOVOLOG) 1 VIAL SQ SCH ×4 (06:25→22:27)
[2018-11-11] MEDS: VANCOMYCIN 250 MG/5 ML ORAL SOLUTION PO SCH ×3 (06:25→18:08)
[2018-11-11] MEDS: metFORMIN HCL 500 MG TABLET (FP) PO SCH (06:25)
[2018-11-11 07:33] LABS: BASO % 0.5 % (0-2.0); EOS % 2.1 % (0-4.5); HEMATOCRIT 38.5 % (32.4-45.2); HEMOGLOBIN 12.6 GM/dL (10.7-15.3); LYMPH % 43.1 % (8-40); MCH 30.1 pg (25.7-33.7); MCHC 32.8 g/dl (32.0-36.0); MEAN CELL VOLUME 91.6 fl (80-96); MEAN PLT VOLUME 9.1 fl (7.5-11.1); MONO % 12.9 % (3.8-10.2); NEUT % 41.4 % (42.8-82.8); PLATELET COUNT 194 K/MM3 (134-434); RDW 13.8 % (11.6-15.6); WHITE BLOOD COUNT 4.1 K/mm3 (4.0-10.0)
[2018-11-11 07:35] LABS: ANION GAP 6 MMOL/L (8-16); BLOOD UREA NITROGEN 10 mg/dL (7-18); CALCIUM 8.5 mg/dL (8.5-10.1); CHLORIDE 109 mmol/L (98-107); CO2 27 mmol/L (21-32); CREATININE 1.4 mg/dL (0.55-1.3); GLUCOSE,RANDOM 105 mg/dL (74-106); MAGNESIUM 1.9 mg/dL (1.8-2.4); POTASSIUM 3.1 mmol/L (3.5-5.1); SODIUM 142 mmol/L (136-145)
[2018-11-11] MEDS: TIMOLOL 0.5% OPHTHALMIC SOL 5 ML BOTTLE OU SCH ×2 (09:15→22:27)
[2018-11-11] MEDS: HYDROXYCHLOROQUINE SO4 200 MG TABLET (FP) PO SCH (09:27)
[2018-11-11] MEDS: APIXABAN 2.5 MG TABLET PO SCH ×2 (09:27→21:00)
[2018-11-11] MEDS: CLOPIDOGREL BISULFATE 75 MG TABLET (FP) PO SCH (09:27)
[2018-11-11] MEDS: COLCHICINE 0.6 MG TABLET (FP) PO SCH ×2 (09:27→21:00)
[2018-11-11] MEDS: PANTOPRAZOLE 40 MG TABLET (FP) PO SCH (09:27)
[2018-11-11] MEDS: DORZOLAMIDE 2% HCL OPHTHALMIC SOLUTION 10 ML BOTTLE OU SCH ×2 (09:27→22:26)
[2018-11-11] MEDS: FUROSEMIDE 40 MG TABLET (FP) PO SCH (09:27)
[2018-11-11] MEDS: FERROUS SO4 325 MG TABLET (FP) PO SCH (09:27)
[2018-11-11] MEDS: CARVEDILOL 25 MG TABLET (FP) PO SCH ×2 (09:27→21:00)
[2018-11-11] MEDS: ONDANSETRON 4 MG TABLET PO SCH (09:29)
[2018-11-11] MEDS ORDERED: POTASSIUM CHLORIDE 10 MEQ PREMIX IVPB (POTASSIUM RIDER) IVPB SCH ×2 (10:21→11:30)
[2018-11-11] MEDS: KCL 10 MEQ IVPB 10 MEQ/100 ML INFUS.BAG IVPB SCH ×2 (11:47→15:31)
[2018-11-11] MEDS: ACETAMINOPHEN 325 MG TABLET (FP) PO PRN (12:10)
--- NOTE | 2018-11-11 12:46 | PN ---
Progress Note, Physician History of Present Illness: c/o of pain in the hand where k was given still with dirrhoea vascular note noted - Current Medication List Current Medications: Active Medications Acetaminophen (Tylenol -) 650 mg PO Q4H PRN PRN Reason: PAIN LEVEL 1 - 3 Last Admin: 11/11/18 12:10 Dose: 650 mg Alprazolam (Xanax -) 1.5 mg PO HS [facility] Last Admin: 11/10/18 21:44 Dose: 1.5 mg Apixaban (Eliquis -) 2.5 mg PO BID [facility] Last Admin: 11/11/18 09:27 Dose: 2.5 mg Carvedilol (Coreg -) 25 mg PO BID [facility] Last Admin: 11/11/18 09:27 Dose: 25 mg Clopidogrel Bisulfate (Plavix -) 75 mg PO DAILY [facility] Last Admin: 11/11/18 09:27 Dose: 75 mg Colchicine (Colcrys -) 0.6 mg PO BID [facility] Last Admin: 11/11/18 09:27 Dose: 0.6 mg Diltiazem HCl (Cardizem Cd -) 240 mg PO DAILY [facility] Last Admin: 11/11/18 09:27 Dose: 240 mg Donepezil HCl (Aricept -) 5 mg PO HS [facility] Last Admin: 11/10/18 21:45 Dose: 5 mg Dorzolamide HCl (Trusopt 2%) 1 drop OU BID [facility] Last Admin: 11/11/18 09:27 Dose: 1 drop Ferrous Sulfate (Feosol -) 325 mg PO DAILY [facility] Last Admin: 11/11/18 09:27 Dose: 325 mg Furosemide (Lasix -) 40 mg PO DAILY [facility] Last Admin: 11/11/18 09:27 Dose: 40 mg Hydroxychloroquine Sulfate (Plaquenil -) 200 mg PO DAILY [facility] Last Admin: 11/11/18 09:27 Dose: 200 mg Metronidazole (Flagyl 500mg Premixed Ivpb -) 500 mg in 100 mls @ 100 mls/hr IVPB Q8H-IV [facility] Last Admin: 11/11/18 10:14 Dose: 100 mls/hr Sodium Chloride (Normal Saline -) 1,000 mls @ 100 mls/hr IV ASDIR [facility] Stop: 11/12/18 22:29 Last Admin: 11/11/18 11:48 Dose: 100 mls/hr Aztreonam 1 gm/ Dextrose 50 mls @ 100 mls/hr IVPB Q8H-IV [facility]; Protocol Last Admin: 11/11/18 09:27 Dose: 100 mls/hr Potassium Chloride (Potassium Chloride 10 Meq Premix Ivpb -) 10 meq in 100 mls @ 100 mls/hr IVPB Q1H [facility] Stop: 11/11/18 13:44 Last Admin: 11/11/18 11:47 Dose: 100 mls/hr Insulin Aspart (Novolog Vial Sliding Scale -) 1 vial SQ ACHS [facility]; Protocol Last Admin: 11/11/18 11:33 Dose: Not Given Latanoprost (Xalatan 0.005% Eye Drops -) 1 drop OU [facility] Last Admin: 11/10/18 21:46 Dose: Not Given Morphine Sulfate (Morphine Sulfate) 1 mg IVPUSH Q4H PRN PRN Reason: PAIN LEVEL 7 - 10 Last Admin: 11/10/18 16:30 Dose: 1 mg Ondansetron HCl (Zofran -) 4 mg PO DAILY [facility] Last Admin: 11/11/18 09:29 Dose: 4 mg Oxycodone HCl (Roxicodone -) 5 mg PO Q6H PRN PRN Reason: PAIN LEVEL 4 - 6 Pantoprazole Sodium (Protonix -) 40 mg PO DAILY [facility] Last Admin: 11/11/18 09:27 Dose: 40 mg Rosuvastatin Calcium (Crestor -) 5 mg PO HS [facility] Last Admin: 11/10/18 21:45 Dose: 5 mg Sitagliptin Phosphate (Januvia -) 25 mg PO DAILY@0700 [facility] Last Admin: 11/11/18 06:25 Dose: Not Given Timolol Maleate (Timoptic 0.5%) 1 drop OU BID [facility] Last Admin: 11/11/18 09:15 Dose: 1 drop Vancomycin HCl (Vancomycin Oral Solution) 125 mg PO Q6HPO [facility] Last Admin: 11/11/18 11:49 Dose: 125 mg - Objective Vital Signs: Vital Signs Temperature 97.6 F 11/11/18 06:29 Pulse Rate 60 11/11/18 06:29 Respiratory Rate 18 11/11/18 06:29 Blood Pressure 141/76 11/11/18 06:29 O2 Sat by Pulse Oximetry (%) 94 L 11/10/18 21:00 Constitutional: Yes: Calm, Mild Distress Cardiovascular: Yes: Regular Rate and Rhythm Respiratory: Yes: Regular, CTA Bilaterally Gastrointestinal: Yes: Normal Bowel Sounds, Soft, Other (dirrhoea) Musculoskeletal: Yes: WNL Extremities: Yes: Other Neurological: Yes: Alert, Oriented Psychiatric: Yes: Alert, Oriented Labs: CBC, BMP 11/11/18 06:30 11/11/18 06:30 Assessment/Plan This is a 73 year old woman with a history of CVA with right hemiparesis, PAF, HTN, hyperlipdemia, CAD, GERD, colitis, PAD, renal artery stenosis, DVT, type 2 DM, AAA, pacemaker 1. Acute colitis, recurrent 2. Acute kidney injury on stage 3 CKD 3. CAD, history of stent 4. HTN 5. Hyperlipidemia 6. Paroxysmal atrial fibrillation 7. Type 2 diabetes mellitus 8. History of DVT, hypercoagulable state 9. PAD 10. Renal artery stenosis 11. AAA, history of repair 12. Right hemiparesis secondary to old CVA plan continue current abx vascular on case rest as per the team replace electrolytes
--- NOTE | 2018-11-11 13:17 | PN ---
Physical Exam: SUBJECTIVE: Patient seen and examined, she had on BM last night and one in the morning. She still has abdominal pain which has also improved, and she states that it gets better with having BM. she denies any fever, chills. States that [pain medication helps OBJECTIVE: Vital Signs Period Temp Pulse Resp BP Sys/[place] Pulse Ox Last 24 Hr 97.5 F-98.4 F 59-61 18-20 139-157/66-76 94 In mild distress at this time, she moves in bed with no distress MMM No ocular discharge No nasal discharge CVS:S1S2, Regular CTAB Abd: BS+, soft, has mild tenderness over the LLq , No peritoneal signs. no rebound. Daughter concern about the color of the skin on the hand with IV line for DVT but it has no edema, not tender and no sign of VT. EXT; no edema, has 2+ DP pulses B/L Laboratory Results - last 24 hr CBCD WBC 4.1 K/mm3 (4.0-10.0) 11/11/18 06:30 RBC 4.20 M/mm3 (3.60-5.2) 11/11/18 06:30 Hgb 12.6 GM/dL (10.7-15.3) 11/11/18 06:30 Hct 38.5 % (32.4-45.2) 11/11/18 06:30 MCV 91.6 fl (80-96) 11/11/18 06:30 MCHC 32.8 g/dl (32.0-36.0) 11/11/18 06:30 RDW 13.8 % (11.6-15.6) 11/11/18 06:30 Plt Count 194 K/MM3 (134-434) 11/11/18 06:30 MPV 9.1 fl (7.5-11.1) 11/11/18 06:30 CMP Sodium 142 mmol/L (136-145) 11/11/18 06:30 Potassium 3.1 mmol/L (3.5-5.1) L 11/11/18 06:30 Chloride 109 mmol/L (98-107) H 11/11/18 06:30 Carbon Dioxide 27 mmol/L (21-32) 11/11/18 06:30 Anion Gap 6 MMOL/L (8-16) L 11/11/18 06:30 BUN 10 mg/dL (7-18) 11/11/18 06:30 Creatinine 1.4 mg/dL (0.55-1.3) H 11/11/18 06:30 Creat Clearance w eGFR 36.76 (>60) 11/11/18 06:30 Calcium 8.5 mg/dL (8.5-10.1) 11/11/18 06:30 Total Bilirubin 0.4 mg/dL (0.2-1) 11/10/18 06:30 AST 33 U/L (15-37) 11/10/18 06:30 ALT 24 U/L (13-61) 11/10/18 06:30 Alkaline Phosphatase 160 U/L (45-117) H 11/10/18 06:30 Total Protein 6.4 g/dl (6.4-8.2) 11/10/18 06:30 Albumin 3.2 g/dl (3.4-5.0) L 11/10/18 06:30 Active Medications Generic Name Dose Route Start Last Admin Trade Name Freq PRN Reason Stop Dose Admin Acetaminophen 650 mg 11/10/18 15:29 11/11/18 12:10 Tylenol - PO 650 mg Q4H PRN Administration PAIN LEVEL 1 - 3 Alprazolam 1.5 mg 11/09/18 22:00 11/10/18 21:44 Xanax - PO 1.5 mg HS [facility] Administration Apixaban 2.5 mg 11/09/18 22:00 11/11/18 09:27 Eliquis - PO 2.5 mg BID [facility] Administration Carvedilol 25 mg 11/09/18 22:00 11/11/18 09:27 Coreg - PO 25 mg BID [facility] Administration Clopidogrel Bisulfate 75 mg 11/10/18 10:00 11/11/18 09:27 Plavix - PO 75 mg DAILY [facility] Administration Colchicine 0.6 mg 11/09/18 22:00 11/11/18 09:27 Colcrys - PO 0.6 mg BID [facility] Administration Diltiazem HCl 240 mg 11/10/18 10:00 11/11/18 09:27 Cardizem Cd - PO 240 mg DAILY [facility] Administration Donepezil HCl 5 mg 11/10/18 22:00 11/10/18 21:45 Aricept - PO 5 mg HS [facility] Administration Dorzolamide HCl 1 drop 11/09/18 22:00 11/11/18 09:27 Trusopt 2% OU 1 drop BID [facility] Administration Ferrous Sulfate 325 mg 11/10/18 10:00 11/11/18 09:27 Feosol - PO 325 mg DAILY [facility] Administration Furosemide 40 mg 11/10/18 10:00 11/11/18 09:27 Lasix - PO 40 mg DAILY [facility] Administration Hydroxychloroquine Sulfate 200 mg 11/10/18 10:00 11/11/18 09:27 Plaquenil - PO 200 mg DAILY [facility] Administration Metronidazole 500 mg in 100 mls @ 100 mls/hr 11/10/18 12:30 11/11/18 10:14 Flagyl 500mg Premixed Ivpb - IVPB 100 mls/hr Q8H-IV [facility] Administration Sodium Chloride 1,000 mls @ 100 mls/hr 11/10/18 12:30 11/11/18 11:48 Normal Saline - IV 11/12/18 22:29 100 mls/hr ASDIR [facility] Administration Aztreonam 1 gm/ Dextrose 50 mls @ 100 mls/hr 11/10/18 16:00 11/11/18 09:27 IVPB 100 mls/hr Q8H-IV [facility] Administration Protocol Potassium Chloride 10 meq in 100 mls @ 100 mls/hr 11/11/18 11:45 11/11/18 11: 47 Potassium Chloride 10 Meq Premix Ivpb - IVPB 11/11/18 13:44 100 mls/hr Q1H [facility] Administration Insulin Aspart 1 vial 11/09/18 22:00 11/11/18 11:33 Novolog Vial Sliding Scale - SQ Not Given ACHS [facility] Protocol Latanoprost 1 drop 11/09/18 22:00 11/10/18 21:46 Xalatan 0.005% Eye Drops - OU Not Given HS [facility] Morphine Sulfate 1 mg 11/10/18 15:29 11/10/18 16:30 Morphine Sulfate IVPUSH 1 mg Q4H PRN Administration PAIN LEVEL 7 - 10 Ondansetron HCl 4 mg 11/10/18 10:00 11/11/18 09:29 Zofran - PO 4 mg DAILY [facility] Administration Oxycodone HCl 5 mg 11/10/18 15:28 Roxicodone - PO Q6H PRN PAIN LEVEL 4 - 6 Pantoprazole Sodium 40 mg 11/10/18 10:00 11/11/18 09:27 Protonix - PO 40 mg DAILY [facility] Administration Rosuvastatin Calcium 5 mg 11/09/18 22:00 11/10/18 21:45 Crestor - PO 5 mg HS [facility] Administration Sitagliptin Phosphate 25 mg 11/10/18 07:00 11/11/18 06:25 Januvia - PO Not Given DAILY@0700 [facility] Timolol Maleate 1 drop 11/09/18 22:00 11/11/18 09:15 Timoptic 0.5% OU 1 drop BID [facility] Administration Vancomycin HCl 125 mg 11/10/18 18:00 11/11/18 11:49 Vancomycin Oral Solution PO 125 mg Q6HPO [facility] Administration ASSESSMENT/PLAN: 73 Y/O F W history of CVA with right hemiparesis, PAF, HTN, hyperlipdemia, CAD , GERD, colitis, PAD, renal artery stenosis, DVT, type 2 DM, AAA, pacemaker, p/ W abdominal pain, diarrhea and was found to have colitis on the imaging and there was minimal concern for ischemic colitis and plan for CTA which has been withheld as for VILLA over CKD and today her daughter refused CTA despite of Cr improvement and hydration. 1. Acute colitis, recurrent: is improving, she has been afebrile, normal WBC. has been on Levaquin, Flagyl and being started on vanc by ID from today. - Stool (+) C. diff Ag, (-) C. diff toxin - ID consult - Vascular evaluation for possible ischemic colitis 2. Acute kidney injury on stage 3 CKD - Secondary to dehydration from diarrhea, diuretics, is improving and is Cr 1.4 at this time. - Hold metformin - Continue IV fluid for today and will likely DC the fluid tomorrow if she is not willing to get CTA. pending improvement of her appetite, as she is only drinking and eating clear fluid at this time and is not willing to eat at this time. 3. CAD, history of stent - Continue Coreg, Plavix, Crestor 4. HTN - Continue Coreg, Cardizem CD, Lasix 5. Hyperlipidemia - Continue Crestor 6. Paroxysmal atrial fibrillation - Continue Coreg, Cardizem CD, Eliquis 7. Type 2 diabetes mellitus - Continue Januvia, Novolog sliding scale - Hold metformin - has creatinine 1.[address] with IV contrast 8. History of DVT, hypercoagulable state - Developed DVT while on Coumadin, so was changed to Lovenox which caused hematomas, now on Eliquis 9. PAD - Continue Plavix 10. Renal artery stenosis 11. AAA, history of repair 12. Right hemiparesis secondary to old CVA - Continue Plavix, Crestor 13 History of pacemaker 14. Possible connective tissue disorder - Continue Plaquenil Visit type - Emergency Visit Emergency Visit: No - New Patient This patient is new to me today: Yes Date on this admission: 11/11/18 - Critical Care Critical Care patient: No - Discharge Referral Referred to [facility] Med P.C.: No
[2018-11-11] MEDS ORDERED: POTASSIUM CHLORIDE ORAL LIQUID 20 MEQ/15 ML PO ONE (15:25)
--- NOTE | 2018-11-11 17:26 | PN ---
GI Progress Note Subjective: GI: For Dr. Delacruz Continue watery diarrhea per nurse Still with abdominal pain per patient and her daughter Diffuse colitis, particularly in transverse colon, noted on limited non- contrast CT scan C. Diff Antigen + toxin neg and treated for C. Diff previously. - Objective Vital Signs: Vital Signs Temperature 97.4 F L 11/11/18 14:39 Pulse Rate 60 11/11/18 14:39 Respiratory Rate 18 11/11/18 14:39 Blood Pressure 170/62 11/11/18 14:39 O2 Sat by Pulse Oximetry (%) 94 L 11/10/18 21:00 Constitutional: Calm Eyes: No: Sclera Icterus Cardiovascular: Yes: Regular Rate and Rhythm Gastrointestinal Inspection: No: Distention ...Auscultate: Yes: Normoactive Bowel Sounds ...Palpate: Yes: Tenderness (TTP prediminantly mid/upper abdomen) ...Percussion: No: Tympanitic Neurological: Yes: Alert Labs: CBC, BMP 11/11/18 06:30 11/11/18 06:30 Problem List - Problems (1) Colitis Assessment/Plan: Reviewed CT scan. the thickneing and stranding about the colon seems ot oinclude the transverse, ascending and left colon. This would be an atypical distribution for ischemic colitis, with a large portion of the colon being involved all at once. Ischemic colitis is also usually more of a pain and bleeding event as oppoed to watery diarrhea. Ms. Burnette was treated for C. Diff previously and is antigen + now. I have ordered a C. Diff toxin PCR and hshe is currently on treatment with PO vancomycin and IV flagyl per ID. She is on both plavix and eliquis at this time. If symptoms persist despite c. diff therapy and C. diff study unrevealing, then colonoscopy or flex sig off at least eliquis (bridging if necessary, per primary team/heme given prior h/o hypercoagulable state ) could be considered. Continue clear liquids for now Surgical consultation if worsening abdominal pain F/U C. Diff PCR Evaluation of the need for ? continued plavix therapy Dr. Guajardo covering through the weekend Dr. Delacruz returns 11/16 Code(s): K52.9 - NONINFECTIVE GASTROENTERITIS AND COLITIS, UNSPECIFIED
[2018-11-11 18:33] LABS: ANION GAP 7 MMOL/L (8-16); BLOOD UREA NITROGEN 9 mg/dL (7-18); CALCIUM 8.7 mg/dL (8.5-10.1); CHLORIDE 110 mmol/L (98-107); CO2 26 mmol/L (21-32); CREATININE 1.4 mg/dL (0.55-1.3); GLUCOSE,RANDOM 108 mg/dL (74-106); SODIUM 143 mmol/L (136-145)
[2018-11-11 18:35] LABS: POTASSIUM 2.8 mmol/L (3.5-5.1)
[2018-11-11] MEDS: POTASSIUM CHLORIDE TABS 20 MEQ TABLET.ER (FP) PO ONE ×2 (19:03→20:41)
[2018-11-11] MEDS: ROSUVASTATIN CA 5 MG TABLET (FP) PO SCH (21:00)
[2018-11-11] MEDS: DONEPEZIL HCL 5 MG TABLET (FP) PO SCH (21:01)
[2018-11-11 21:57] LABS: ANION GAP 7 MMOL/L (8-16); BLOOD UREA NITROGEN 8 mg/dL (7-18); CALCIUM 8.5 mg/dL (8.5-10.1); CHLORIDE 111 mmol/L (98-107); CO2 25 mmol/L (21-32); CREATININE 1.5 mg/dL (0.55-1.3); GLUCOSE,RANDOM 149 mg/dL (74-106); POTASSIUM 3.5 mmol/L (3.5-5.1); SODIUM 143 mmol/L (136-145)
[2018-11-11] MEDS: ALPRAZolam 0.25 MG TABLET PO SCH (22:27)
[2018-11-11] MEDS: LATANOPROST 0.005% OPHTH SOLN 2.5ML BOTTLE OU SCH (22:27)
[2018-11-12] MEDS ORDERED: PT OWN MED DRAWER 7, Y5N ONE ×5 (01:18→21:52)
[2018-11-12] MEDS: AZTREONAM 1 GM in DEXTROSE 5%-WATER - 50 ML IVPB SCH ×3 (01:19→17:36)
[2018-11-12] MEDS: ACETAMINOPHEN 325 MG TABLET (FP) PO PRN ×3 (01:24→22:13)
[2018-11-12] MEDS: sitaGLIPtin PHOSPHATE 25 MG TABLET (FP) PO SCH (06:09)
[2018-11-12] MEDS: VANCOMYCIN 250 MG/5 ML ORAL SOLUTION PO SCH ×5 (06:09→23:46)
[2018-11-12] MEDS: INSULIN SLIDING SCALE (NOVOLOG) 1 VIAL SQ SCH ×4 (06:09→21:59)
--- NOTE | 2018-11-12 08:29 | PN ---
Progress Note, Physician History of Present Illness: patient had several episodes of diarrhea, she is complaining of abdominal pain, and nausea but besides that she is doing ok. - Current Medication List Current Medications: Active Medications Acetaminophen (Tylenol -) 650 mg PO Q4H PRN PRN Reason: PAIN LEVEL 1 - 3 Last Admin: 11/12/18 01:24 Dose: 650 mg Alprazolam (Xanax -) 1.5 mg PO HS [facility] Last Admin: 11/11/18 22:27 Dose: 1.5 mg Apixaban (Eliquis -) 2.5 mg PO BID [facility] Last Admin: 11/11/18 21:00 Dose: 2.5 mg Carvedilol (Coreg -) 25 mg PO BID [facility] Last Admin: 11/11/18 21:00 Dose: 25 mg Clopidogrel Bisulfate (Plavix -) 75 mg PO DAILY [facility] Last Admin: 11/11/18 09:27 Dose: 75 mg Colchicine (Colcrys -) 0.6 mg PO BID [facility] Last Admin: 11/11/18 21:00 Dose: 0.6 mg Diltiazem HCl (Cardizem Cd -) 240 mg PO DAILY [facility] Last Admin: 11/11/18 09:27 Dose: 240 mg Donepezil HCl (Aricept -) 5 mg PO HS [facility] Last Admin: 11/11/18 21:01 Dose: 5 mg Dorzolamide HCl (Trusopt 2%) 1 drop OU BID [facility] Last Admin: 11/11/18 22:26 Dose: 1 drop Ferrous Sulfate (Feosol -) 325 mg PO DAILY [facility] Last Admin: 11/11/18 09:27 Dose: 325 mg Furosemide (Lasix -) 40 mg PO DAILY [facility] Last Admin: 11/11/18 09:27 Dose: 40 mg Hydroxychloroquine Sulfate (Plaquenil -) 200 mg PO DAILY [facility] Last Admin: 11/11/18 09:27 Dose: 200 mg Metronidazole (Flagyl 500mg Premixed Ivpb -) 500 mg in 100 mls @ 100 mls/hr IVPB Q8H-IV [facility] Last Admin: 11/12/18 02:07 Dose: 100 mls/hr Sodium Chloride (Normal Saline -) 1,000 mls @ 100 mls/hr IV ASDIR [facility] Stop: 11/12/18 22:29 Last Admin: 11/11/18 11:48 Dose: 100 mls/hr Aztreonam 1 gm/ Dextrose 50 mls @ 100 mls/hr IVPB Q8H-IV [facility]; Protocol Last Admin: 11/12/18 01:19 Dose: 100 mls/hr Insulin Aspart (Novolog Vial Sliding Scale -) 1 vial SQ ACHS [facility]; Protocol Last Admin: 11/12/18 06:09 Dose: Not Given Latanoprost (Xalatan 0.005% Eye Drops -) 1 drop OU HS [facility] Last Admin: 11/11/18 22:27 Dose: Not Given Morphine Sulfate (Morphine Sulfate) 1 mg IVPUSH Q4H PRN PRN Reason: PAIN LEVEL 7 - 10 Last Admin: 11/10/18 16:30 Dose: 1 mg Ondansetron HCl (Zofran -) 4 mg PO DAILY [facility] Last Admin: 11/11/18 09:29 Dose: 4 mg Oxycodone HCl (Roxicodone -) 5 mg PO Q6H PRN PRN Reason: PAIN LEVEL 4 - 6 Pantoprazole Sodium (Protonix -) 40 mg PO DAILY [facility] Last Admin: 11/11/18 09:27 Dose: 40 mg Rosuvastatin Calcium (Crestor -) 5 mg PO HS [facility] Last Admin: 11/11/18 21:00 Dose: 5 mg Sitagliptin Phosphate (Januvia -) 25 mg PO DAILY@0700 [facility] Last Admin: 11/12/18 06:09 Dose: Not Given Timolol Maleate (Timoptic 0.5%) 1 drop OU BID [facility] Last Admin: 11/11/18 22:27 Dose: 1 drop Vancomycin HCl (Vancomycin Oral Solution) 125 mg PO Q6HPO [facility] Last Admin: 11/12/18 06:09 Dose: 125 mg - Objective Vital Signs: Vital Signs Temperature 97.9 F 11/12/18 06:11 Pulse Rate 62 11/12/18 06:11 Respiratory Rate 20 11/12/18 06:11 Blood Pressure 182/75 H 11/12/18 06:11 O2 Sat by Pulse Oximetry (%) 93 L 11/11/18 21:00 Constitutional: Yes: Well Nourished, No Distress, Calm Eyes: Yes: WNL, Conjunctiva Clear, EOM Intact HENT: Yes: WNL, Atraumatic, Normocephalic Neck: Yes: WNL, Supple, Trachea Midline Cardiovascular: Yes: WNL, Regular Rate and Rhythm Respiratory: Yes: WNL, Regular, CTA Bilaterally Gastrointestinal: Yes: WNL, Normal Bowel Sounds, Soft, Abdomen, Obese, Distention, Hyperactive Bowel Sounds, Tenderness, Tenderness, Epigastrium ...Rectal Exam: Yes: Deferred Musculoskeletal: Yes: WNL Extremities: Yes: WNL Integumentary: Yes: WNL Neurological: Yes: WNL, Alert, Oriented ...Motor Strength: WNL Psychiatric: Yes: WNL, Alert, Oriented Labs: CBC, BMP 11/11/18 06:30 11/11/18 21:00 Problem List - Problems (1) Colitis Code(s): K52.9 - NONINFECTIVE GASTROENTERITIS AND COLITIS, UNSPECIFIED (2) Afib Code(s): I48.91 - UNSPECIFIED ATRIAL FIBRILLATION Qualifiers: Atrial fibrillation type: paroxysmal Qualified Code(s): I48.0 - Paroxysmal atrial fibrillation (3) Anemia Code(s): D64.9 - ANEMIA, UNSPECIFIED (4) Anticardiolipin antibody positive Code(s): R76.8 - OTHER SPECIFIED ABNORMAL IMMUNOLOGICAL FINDINGS IN SERUM (5) Antiphospholipid antibody syndrome Code(s): D68.61 - ANTIPHOSPHOLIPID SYNDROME (6) CHF (congestive heart failure) Code(s): I50.9 - HEART FAILURE, UNSPECIFIED (7) Diabetes 1.5, managed as type 2 Code(s): E10.9 - TYPE 1 DIABETES MELLITUS WITHOUT COMPLICATIONS Assessment/Plan This is a 73 year old woman with a history of CVA with right hemiparesis, PAF, HTN, hyperlipdemia, CAD, GERD, colitis, PAD, renal artery stenosis, DVT, type 2 DM, AAA, pacemaker 2/2 Sick Sinus Syndrome 1. Acute colitis, recurrent - Afebrile, normal WBC - Continue Levaquin, Flagyl, IV fluid - Stool (+) C. diff Ag, (-) C. diff toxin - ID consult - Vascular evaluation for possible ischemic colitis 2. Acute kidney injury on stage 3 CKD - Secondary to dehydration from diarrhea, diuretics - Hold metformin - Continue IV fluid - Monitor creatinine 3. CAD, history of stent - Continue carvidilol - c/w clopidogrel - c/w rosuvastatin 4. HTN - Continue carvidilol, - c/w diltiazem - c/w furosemide 5. Hyperlipidemia - Continue rosuvastatin 6. Paroxysmal atrial fibrillation - Continue carvidilol, - c/w diltiazem - c/w apixiban 7. Type 2 diabetes mellitus - Continue Januvia, - Novolog sliding scale - Hold metformin - has creatinine 1.[address] with IV contrast 8. History of DVT, hypercoagulable state - Developed DVT while on Coumadin, so was changed to Lovenox which caused hematomas, now on apixiban 9. PAD - Continue clopidogrel 10. Renal artery stenosis 11. AAA, history of repair 12. Right hemiparesis secondary to old CVA - c/w aspirin - c/w rosuvastatin 13 History of pacemaker 14. Possible connective tissue disorder - Continue Plaquenil
[2018-11-12] MEDS: FERROUS SO4 325 MG TABLET (FP) PO SCH (10:13)
[2018-11-12] MEDS: ONDANSETRON 4 MG TABLET PO SCH (10:13)
[2018-11-12] MEDS: PANTOPRAZOLE 40 MG TABLET (FP) PO SCH (10:13)
[2018-11-12] MEDS: FUROSEMIDE 40 MG TABLET (FP) PO SCH (10:13)
[2018-11-12] MEDS: CARVEDILOL 25 MG TABLET (FP) PO SCH ×2 (10:13→21:59)
[2018-11-12] MEDS: COLCHICINE 0.6 MG TABLET (FP) PO SCH ×2 (10:13→21:59)
[2018-11-12] MEDS: DORZOLAMIDE 2% HCL OPHTHALMIC SOLUTION 10 ML BOTTLE OU SCH ×2 (10:14→21:59)
[2018-11-12] MEDS: CLOPIDOGREL BISULFATE 75 MG TABLET (FP) PO SCH (10:15)
[2018-11-12] MEDS: APIXABAN 2.5 MG TABLET PO SCH (10:15)
[2018-11-12] MEDS: TIMOLOL 0.5% OPHTHALMIC SOL 5 ML BOTTLE OU SCH ×2 (10:16→21:59)
[2018-11-12] MEDS: HYDROXYCHLOROQUINE SO4 200 MG TABLET (FP) PO SCH (11:28)
[2018-11-12] MEDS: SODIUM CHLORIDE 1,000 ML IV SCH (12:59)
--- NOTE | 2018-11-12 15:38 | PN ---
Progress Note, Physician History of Present Illness: Pt seen and examined. Events reviewed. Pt is alert and afebrile. Had 3 loose BMs today and still with some abdominal pain. - Current Medication List Current Medications: Active Medications Acetaminophen (Tylenol -) 650 mg PO Q4H PRN PRN Reason: PAIN LEVEL 1 - 3 Last Admin: 11/12/18 01:24 Dose: 650 mg Alprazolam (Xanax -) 1.5 mg PO HS [facility] Last Admin: 11/11/18 22:27 Dose: 1.5 mg Apixaban (Eliquis -) 2.5 mg PO BID [facility] Last Admin: 11/12/18 10:15 Dose: 2.5 mg Carvedilol (Coreg -) 25 mg PO BID [facility] Last Admin: 11/12/18 10:13 Dose: 25 mg Clopidogrel Bisulfate (Plavix -) 75 mg PO DAILY [facility] Last Admin: 11/12/18 10:15 Dose: 75 mg Colchicine (Colcrys -) 0.6 mg PO BID [facility] Last Admin: 11/12/18 10:13 Dose: 0.6 mg Diltiazem HCl (Cardizem Cd -) 240 mg PO DAILY [facility] Last Admin: 11/12/18 10:13 Dose: 240 mg Donepezil HCl (Aricept -) 5 mg PO HS [facility] Last Admin: 11/11/18 21:01 Dose: 5 mg Dorzolamide HCl (Trusopt 2%) 1 drop OU BID [facility] Last Admin: 11/12/18 10:14 Dose: 1 drop Ferrous Sulfate (Feosol -) 325 mg PO DAILY [facility] Last Admin: 11/12/18 10:13 Dose: 325 mg Furosemide (Lasix -) 40 mg PO DAILY [facility] Last Admin: 11/12/18 10:13 Dose: 40 mg Hydroxychloroquine Sulfate (Plaquenil -) 200 mg PO DAILY [facility] Last Admin: 11/12/18 11:28 Dose: 200 mg Metronidazole (Flagyl 500mg Premixed Ivpb -) 500 mg in 100 mls @ 100 mls/hr IVPB Q8H-IV [facility] Last Admin: 11/12/18 10:14 Dose: 100 mls/hr Sodium Chloride (Normal Saline -) 1,000 mls @ 100 mls/hr IV ASDIR [facility] Stop: 11/12/18 22:29 Last Admin: 11/12/18 12:59 Dose: Not Given Aztreonam 1 gm/ Dextrose 50 mls @ 100 mls/hr IVPB Q8H-IV [facility]; Protocol Last Admin: 11/12/18 10:12 Dose: 100 mls/hr Insulin Aspart (Novolog Vial Sliding Scale -) 1 vial SQ ACHS [facility]; Protocol Last Admin: 11/12/18 11:28 Dose: Not Given Latanoprost (Xalatan 0.005% Eye Drops -) 1 drop OU [facility] Last Admin: 11/11/18 22:27 Dose: Not Given Morphine Sulfate (Morphine Sulfate) 1 mg IVPUSH Q4H PRN PRN Reason: PAIN LEVEL 7 - 10 Last Admin: 11/10/18 16:30 Dose: 1 mg Ondansetron HCl (Zofran -) 4 mg PO DAILY [facility] Last Admin: 11/12/18 10:13 Dose: 4 mg Oxycodone HCl (Roxicodone -) 5 mg PO Q6H PRN PRN Reason: PAIN LEVEL 4 - 6 Pantoprazole Sodium (Protonix -) 40 mg PO DAILY [facility] Last Admin: 11/12/18 10:13 Dose: 40 mg Rosuvastatin Calcium (Crestor -) 5 mg PO [facility] Last Admin: 11/11/18 21:00 Dose: 5 mg Sitagliptin Phosphate (Januvia -) 25 mg PO DAILY@0700 [facility] Last Admin: 11/12/18 06:09 Dose: Not Given Timolol Maleate (Timoptic 0.5%) 1 drop OU BID [facility] Last Admin: 11/12/18 10:16 Dose: 1 drop Vancomycin HCl (Vancomycin Oral Solution) 125 mg PO Q6HPO [facility] Last Admin: 11/12/18 11:28 Dose: 125 mg - Objective Vital Signs: Vital Signs Temperature 98.2 F 11/12/18 14:07 Pulse Rate 63 11/12/18 14:07 Respiratory Rate 16 11/12/18 14:07 Blood Pressure 183/73 H 11/12/18 14:07 O2 Sat by Pulse Oximetry (%) 93 L 11/12/18 09:00 Constitutional: Yes: No Distress, Calm Cardiovascular: Yes: Regular Rate and Rhythm Respiratory: Yes: Regular Gastrointestinal: Yes: Normal Bowel Sounds, Soft, Tenderness Genitourinary: Yes: WNL Extremities: Yes: WNL Integumentary: Yes: WNL Neurological: Yes: Alert Labs: CBC, BMP 11/11/18 06:30 11/11/18 21:00 Microbiology 11/12/18 01:53 Stool Clostridium difficile (PCR) - Preliminary 11/10/18 14:00 Stool Gram Stain - Final 11/10/18 14:00 Stool Salmonella/Shigella Culture - Preliminary Beta Hemolytic Strep 11/10/18 14:00 Stool Yersinia Culture - Preliminary NO ENTERIC PATHOGENS, 24 HOURS, ON PRIMARY PLATES 11/10/18 14:00 Stool Vibrio Culture - Final NO GROWTH OF VIBRIO SPECIES OBTAINED 11/10/18 14:00 Stool Escherichia coli 0157 Culture - Final NO GROWTH OF E COLI 0157 OBTAINED 11/10/18 18:27 Stool Clostridium difficile Antigen (ROX) - Final 11/10/18 18:27 Stool Clostridium difficile Toxin Assay - Final 11/10/18 03:00 Urine - Urine Clean Catch Urine Culture - Final 11/10/18 10:50 Stool Clostridium difficile Antigen (ROX) - Final 11/10/18 10:50 Stool Clostridium difficile Toxin Assay - Final - ....Imaging Cat Scan: Report Reviewed Problem List - Problems (1) Colitis Code(s): K52.9 - NONINFECTIVE GASTROENTERITIS AND COLITIS, UNSPECIFIED (2) Acute on chronic systolic (congestive) heart failure Code(s): I50.23 - ACUTE ON CHRONIC SYSTOLIC (CONGESTIVE) HEART FAILURE (3) Afib Code(s): I48.91 - UNSPECIFIED ATRIAL FIBRILLATION Qualifiers: Atrial fibrillation type: paroxysmal Qualified Code(s): I48.0 - Paroxysmal atrial fibrillation (4) Anemia Code(s): D64.9 - ANEMIA, UNSPECIFIED (5) Diabetes Code(s): E11.9 - TYPE 2 DIABETES MELLITUS WITHOUT COMPLICATIONS Qualifiers: Diabetes mellitus type: type 2 (6) HLD (hyperlipidemia) Code(s): E78.5 - HYPERLIPIDEMIA, UNSPECIFIED (7) HTN (hypertension) Code(s): I10 - ESSENTIAL (PRIMARY) HYPERTENSION Qualifiers: Hypertension type: essential hypertension Qualified Code(s): I10 - Essential (primary) hypertension Assessment/Plan Colitis VILLA on CKD DM s/p CVA Renal artery stenosis s/p AAA repair -- pt still with diarrhea, abd pain -- cont. current antibiotics -- CDT neg, Ag+, PCR sent -- Vascular/GI evaluations noted
[2018-11-12] MEDS ORDERED: POTASSIUM CHLORIDE TABS 20 MEQ TABLET.ER (FP) PO ONE (17:15)
[2018-11-12] MEDS: MORPHINE SULFATE 2 MG/ML VIAL IVPUSH PRN (17:36)
[2018-11-12] MEDS: VALSARTAN 80 MG TABLET (UD) PO SCH ×2 (17:43→21:59)
[2018-11-12] MEDS: APIXABAN 5 MG TABLET PO SCH (21:58)
[2018-11-12] MEDS: ALPRAZolam 0.25 MG TABLET PO SCH ×2 (21:58→22:07)
[2018-11-12] MEDS: DONEPEZIL HCL 5 MG TABLET (FP) PO SCH (21:59)
[2018-11-12] MEDS: ROSUVASTATIN CA 5 MG TABLET (FP) PO SCH (21:59)
[2018-11-12] MEDS: LATANOPROST 0.005% OPHTH SOLN 2.5ML BOTTLE OU SCH (22:04)
[2018-11-13] MEDS ORDERED: PT OWN MED DRAWER 7, Y5N ONE ×4 (01:51→21:42)
[2018-11-13] MEDS: AZTREONAM 1 GM in DEXTROSE 5%-WATER - 50 ML IVPB SCH ×3 (01:54→17:12)
[2018-11-13] MEDS: VANCOMYCIN 250 MG/5 ML ORAL SOLUTION PO SCH ×4 (05:12→23:30)
[2018-11-13] MEDS: sitaGLIPtin PHOSPHATE 25 MG TABLET (FP) PO SCH (06:13)
[2018-11-13] MEDS: INSULIN SLIDING SCALE (NOVOLOG) 1 VIAL SQ SCH ×4 (06:13→22:15)
[2018-11-13 06:53] LABS: BASO % 0.8 % (0-2.0); EOS % 2.2 % (0-4.5); HEMATOCRIT 42.7 % (32.4-45.2); HEMOGLOBIN 13.9 GM/dL (10.7-15.3); LYMPH % 42.4 % (8-40); MCH 29.8 pg (25.7-33.7); MCHC 32.5 g/dl (32.0-36.0); MEAN CELL VOLUME 91.7 fl (80-96); MEAN PLT VOLUME 9.3 fl (7.5-11.1); MONO % 10.2 % (3.8-10.2); NEUT % 44.4 % (42.8-82.8); PLATELET COUNT 184 K/MM3 (134-434); RBC 4.66 M/mm3 (3.60-5.2); RDW 13.6 % (11.6-15.6); WHITE BLOOD COUNT 4.4 K/mm3 (4.0-10.0)
--- NOTE | 2018-11-13 07:43 | PN ---
Progress Note, Physician History of Present Illness: patient had several episodes of vomiting last night, she is still complaining of abdominal pain, and nausea but besides that she is doing ok. - Current Medication List Current Medications: Active Medications Acetaminophen (Tylenol -) 650 mg PO Q4H PRN PRN Reason: PAIN LEVEL 1 - 3 Last Admin: 11/12/18 22:13 Dose: 650 mg Alprazolam (Xanax -) 1.5 mg PO HS [facility] Last Admin: 11/12/18 22:07 Dose: Not Given Apixaban (Eliquis -) 5 mg PO BID [facility] Last Admin: 11/12/18 21:58 Dose: 5 mg Carvedilol (Coreg -) 25 mg PO BID [facility] Last Admin: 11/12/18 21:59 Dose: 25 mg Clopidogrel Bisulfate (Plavix -) 75 mg PO DAILY [facility] Last Admin: 11/12/18 10:15 Dose: 75 mg Colchicine (Colcrys -) 0.6 mg PO BID [facility] Last Admin: 11/12/18 21:59 Dose: 0.6 mg Diltiazem HCl (Cardizem Cd -) 240 mg PO DAILY [facility] Last Admin: 11/12/18 10:13 Dose: 240 mg Donepezil HCl (Aricept -) 5 mg PO HS [facility] Last Admin: 11/12/18 21:59 Dose: 5 mg Dorzolamide HCl (Trusopt 2%) 1 drop OU BID [facility] Last Admin: 11/12/18 21:59 Dose: Not Given Ferrous Sulfate (Feosol -) 325 mg PO DAILY [facility] Last Admin: 11/12/18 10:13 Dose: 325 mg Furosemide (Lasix -) 40 mg PO DAILY [facility] Last Admin: 11/12/18 10:13 Dose: 40 mg Hydroxychloroquine Sulfate (Plaquenil -) 200 mg PO DAILY [facility] Last Admin: 11/12/18 11:28 Dose: 200 mg Metronidazole (Flagyl 500mg Premixed Ivpb -) 500 mg in 100 mls @ 100 mls/hr IVPB Q8H-IV [facility] Last Admin: 11/13/18 02:15 Dose: 100 mls/hr Aztreonam 1 gm/ Dextrose 50 mls @ 100 mls/hr IVPB Q8H-IV [facility]; Protocol Last Admin: 11/13/18 01:54 Dose: 100 mls/hr Insulin Aspart (Novolog Vial Sliding Scale -) 1 vial SQ ACHS [facility]; Protocol Last Admin: 11/13/18 06:13 Dose: Not Given Latanoprost (Xalatan 0.005% Eye Drops -) 1 drop OU HS [facility] Last Admin: 11/12/18 22:04 Dose: 1 drop Morphine Sulfate (Morphine Sulfate) 1 mg IVPUSH Q4H PRN PRN Reason: PAIN LEVEL 7 - 10 Last Admin: 11/12/18 17:36 Dose: 1 mg Ondansetron HCl (Zofran -) 4 mg PO DAILY [facility] Last Admin: 11/12/18 10:13 Dose: 4 mg Oxycodone HCl (Roxicodone -) 5 mg PO Q6H PRN PRN Reason: PAIN LEVEL 4 - 6 Pantoprazole Sodium (Protonix -) 40 mg PO DAILY [facility] Last Admin: 11/12/18 10:13 Dose: 40 mg Rosuvastatin Calcium (Crestor -) 5 mg PO [facility] Last Admin: 11/12/18 21:59 Dose: 5 mg Sitagliptin Phosphate (Januvia -) 25 mg PO DAILY@0700 [facility] Last Admin: 11/13/18 06:13 Dose: Not Given Timolol Maleate (Timoptic 0.5%) 1 drop OU BID [facility] Last Admin: 11/12/18 21:59 Dose: 1 drop Valsartan (Diovan -) 80 mg PO BID [facility] Last Admin: 11/12/18 21:59 Dose: 80 mg Vancomycin HCl (Vancomycin Oral Solution) 125 mg PO Q6HPO [facility] Last Admin: 11/13/18 05:12 Dose: 125 mg - Objective Vital Signs: Vital Signs Temperature 98.2 F 11/13/18 06:00 Pulse Rate 64 11/13/18 06:00 Respiratory Rate 18 11/13/18 06:00 Blood Pressure 158/79 11/13/18 06:00 O2 Sat by Pulse Oximetry (%) 97 11/12/18 20:41 Constitutional: Yes: Well Nourished, No Distress, Calm Eyes: Yes: WNL, Conjunctiva Clear, EOM Intact HENT: Yes: WNL, Atraumatic, Normocephalic Neck: Yes: WNL, Supple, Trachea Midline Cardiovascular: Yes: WNL, Regular Rate and Rhythm, S1, S2 Respiratory: Yes: WNL, Regular, CTA Bilaterally Gastrointestinal: Yes: WNL, Abdomen, Obese, Hyperactive Bowel Sounds, Tenderness , Epigastrium Edema: No Peripheral Pulses WNL: Yes Labs: CBC, BMP 11/13/18 05:55 Problem List - Problems (1) Colitis Code(s): K52.9 - NONINFECTIVE GASTROENTERITIS AND COLITIS, UNSPECIFIED (2) Afib Code(s): I48.91 - UNSPECIFIED ATRIAL FIBRILLATION Qualifiers: Atrial fibrillation type: paroxysmal Qualified Code(s): I48.0 - Paroxysmal atrial fibrillation (3) Anemia Code(s): D64.9 - ANEMIA, UNSPECIFIED (4) Anticardiolipin antibody positive Code(s): R76.8 - OTHER SPECIFIED ABNORMAL IMMUNOLOGICAL FINDINGS IN SERUM (5) Antiphospholipid antibody syndrome Code(s): D68.61 - ANTIPHOSPHOLIPID SYNDROME (6) CHF (congestive heart failure) Code(s): I50.9 - HEART FAILURE, UNSPECIFIED (7) Diabetes 1.5, managed as type 2 Code(s): E10.9 - TYPE 1 DIABETES MELLITUS WITHOUT COMPLICATIONS Assessment/Plan This is a 73 year old woman with a history of CVA with right hemiparesis, PAF, HTN, hyperlipdemia, CAD, GERD, colitis, PAD, renal artery stenosis, DVT, type 2 DM, AAA, pacemaker 2/2 Sick Sinus Syndrome 1. Acute colitis, recurrent - Afebrile, normal WBC - Continue Levaquin, Flagyl, IV fluid - Stool (+) C. diff Ag, (-) C. diff toxin - ID consult - Vascular evaluation for possible ischemic colitis 2. Acute kidney injury on stage 3 CKD - Secondary to dehydration from diarrhea, diuretics - Hold metformin - Continue IV fluid - Monitor creatinine 3. CAD, history of stent - Continue carvidilol - c/w clopidogrel - c/w rosuvastatin 4. HTN - Continue carvidilol, - c/w diltiazem - c/w furosemide 5. Hyperlipidemia - Continue rosuvastatin 6. Paroxysmal atrial fibrillation - Continue carvidilol, - c/w diltiazem - c/w apixiban 7. Type 2 diabetes mellitus - Continue Januvia, - Novolog sliding scale - Hold metformin - has creatinine 1.[address] with IV contrast 8. History of DVT, hypercoagulable state - Developed DVT while on Coumadin, so was changed to Lovenox which caused hematomas, now on apixiban 9. PAD - Continue clopidogrel 10. Renal artery stenosis 11. AAA, history of repair 12. Right hemiparesis secondary to old CVA - c/w aspirin - c/w rosuvastatin 13 History of pacemaker 14. Possible connective tissue disorder - Continue Plaquenil
[2018-11-13] MEDS: FERROUS SO4 325 MG TABLET (FP) PO SCH (09:43)
[2018-11-13] MEDS: PANTOPRAZOLE 40 MG TABLET (FP) PO SCH (09:43)
[2018-11-13] MEDS: APIXABAN 5 MG TABLET PO SCH ×2 (09:43→21:53)
[2018-11-13] MEDS: CARVEDILOL 25 MG TABLET (FP) PO SCH ×2 (09:43→21:53)
[2018-11-13] MEDS: FUROSEMIDE 40 MG TABLET (FP) PO SCH (09:43)
[2018-11-13] MEDS: DORZOLAMIDE 2% HCL OPHTHALMIC SOLUTION 10 ML BOTTLE OU SCH ×2 (09:43→21:43)
[2018-11-13] MEDS: COLCHICINE 0.6 MG TABLET (FP) PO SCH ×2 (09:43→21:53)
[2018-11-13] MEDS: VALSARTAN 80 MG TABLET (UD) PO SCH ×2 (09:43→21:53)
[2018-11-13] MEDS: CLOPIDOGREL BISULFATE 75 MG TABLET (FP) PO SCH (09:43)
[2018-11-13] MEDS: ONDANSETRON 4 MG TABLET PO SCH (09:43)
[2018-11-13] MEDS: HYDROXYCHLOROQUINE SO4 200 MG TABLET (FP) PO SCH (09:44)
[2018-11-13] MEDS: TIMOLOL 0.5% OPHTHALMIC SOL 5 ML BOTTLE OU SCH ×2 (09:44→21:53)
[2018-11-13 12:32] LABS: ALBUMIN 3.2 g/dl (3.4-5.0); ALK PHOS 154 U/L (45-117); ANION GAP 8 MMOL/L (8-16); BILIRUBIN,TOTAL 0.4 mg/dL (0.2-1); BLOOD UREA NITROGEN 10 mg/dL (7-18); CHLORIDE 107 mmol/L (98-107); CO2 25 mmol/L (21-32); CREATININE 1.4 mg/dL (0.55-1.3); GLUCOSE,RANDOM 142 mg/dL (74-106); MAGNESIUM 1.7 mg/dL (1.8-2.4); PHOSPHOROUS 2.8 mg/dL (2.5-4.9); POTASSIUM 3.3 mmol/L (3.5-5.1); SGOT/AST 39 U/L (15-37); SGPT/ALT 32 U/L (13-61); SODIUM 140 mmol/L (136-145); TOT PROT 6.2 g/dl (6.4-8.2)
[2018-11-13 12:49] LABS: INR 2.07 (0.83-1.09); PROTHROMBIN TIME (PATIENT) 24.6 SEC (9.7-13.0)
[2018-11-13] MEDS ORDERED: ONDANSETRON 4 MG/2 ML VIAL IVPB ONE (13:53)
--- NOTE | 2018-11-13 14:36 | PN ---
Progress Note, Physician History of Present Illness: Pt remains afebrile, without acute distress at this time. Had episodes of vomiting last night. Reports 2 loose BMs recently and c/o abd discomfort. Daughter at bedside. - Current Medication List Current Medications: Active Medications Acetaminophen (Tylenol -) 650 mg PO Q4H PRN PRN Reason: PAIN LEVEL 1 - 3 Last Admin: 11/12/18 22:13 Dose: 650 mg Alprazolam (Xanax -) 1.5 mg PO HS [facility] Last Admin: 11/12/18 22:07 Dose: Not Given Apixaban (Eliquis -) 5 mg PO BID [facility] Last Admin: 11/13/18 09:43 Dose: 5 mg Carvedilol (Coreg -) 25 mg PO BID [facility] Last Admin: 11/13/18 09:43 Dose: 25 mg Clopidogrel Bisulfate (Plavix -) 75 mg PO DAILY [facility] Last Admin: 11/13/18 09:43 Dose: 75 mg Colchicine (Colcrys -) 0.6 mg PO BID [facility] Last Admin: 11/13/18 09:43 Dose: 0.6 mg Diltiazem HCl (Cardizem Cd -) 240 mg PO DAILY [facility] Last Admin: 11/13/18 09:43 Dose: 240 mg Donepezil HCl (Aricept -) 5 mg PO HS [facility] Last Admin: 11/12/18 21:59 Dose: 5 mg Dorzolamide HCl (Trusopt 2%) 1 drop OU BID [facility] Last Admin: 11/13/18 09:43 Dose: 1 drop Ferrous Sulfate (Feosol -) 325 mg PO DAILY [facility] Last Admin: 11/13/18 09:43 Dose: 325 mg Furosemide (Lasix -) 40 mg PO DAILY [facility] Last Admin: 11/13/18 09:43 Dose: 40 mg Hydroxychloroquine Sulfate (Plaquenil -) 200 mg PO DAILY [facility] Last Admin: 11/13/18 09:44 Dose: 200 mg Metronidazole (Flagyl 500mg Premixed Ivpb -) 500 mg in 100 mls @ 100 mls/hr IVPB Q8H-IV [facility] Last Admin: 11/13/18 09:39 Dose: 100 mls/hr Aztreonam 1 gm/ Dextrose 50 mls @ 100 mls/hr IVPB Q8H-IV [facility]; Protocol Last Admin: 11/13/18 09:40 Dose: 100 mls/hr Potassium Chloride (Potassium Chloride 10 Meq Premix Ivpb -) 10 meq in 100 mls @ 100 mls/hr IVPB Q60M [facility] Stop: 11/13/18 15:59 Insulin Aspart (Novolog Vial Sliding Scale -) 1 vial SQ ACHS [facility]; Protocol Last Admin: 11/13/18 11:44 Dose: Not Given Latanoprost (Xalatan 0.005% Eye Drops -) 1 drop OU [facility] Last Admin: 11/12/18 22:04 Dose: 1 drop Morphine Sulfate (Morphine Sulfate) 1 mg IVPUSH Q4H PRN PRN Reason: PAIN LEVEL 7 - 10 Last Admin: 11/12/18 17:36 Dose: 1 mg Oxycodone HCl (Roxicodone -) 5 mg PO Q6H PRN PRN Reason: PAIN LEVEL 4 - 6 Pantoprazole Sodium (Protonix Iv) 40 mg IVPUSH DAILY [facility] Rosuvastatin Calcium (Crestor -) 5 mg PO [facility] Last Admin: 11/12/18 21:59 Dose: 5 mg Sitagliptin Phosphate (Januvia -) 25 mg PO DAILY@0700 [facility] Last Admin: 11/13/18 06:13 Dose: Not Given Timolol Maleate (Timoptic 0.5%) 1 drop OU BID [facility] Last Admin: 11/13/18 09:44 Dose: 1 drop Valsartan (Diovan -) 80 mg PO BID [facility] Last Admin: 11/13/18 09:43 Dose: 80 mg Vancomycin HCl (Vancomycin Oral Solution) 125 mg PO Q6HPO [facility] Last Admin: 11/13/18 11:44 Dose: 125 mg - Objective Vital Signs: Vital Signs Temperature 98.3 F 11/13/18 09:55 Pulse Rate 65 11/13/18 09:55 Respiratory Rate 18 11/13/18 09:55 Blood Pressure 156/80 11/13/18 09:55 O2 Sat by Pulse Oximetry (%) 95 11/13/18 09:00 Constitutional: Yes: No Distress, Calm Cardiovascular: Yes: Regular Rate and Rhythm Respiratory: Yes: Regular Gastrointestinal: Yes: Normal Bowel Sounds, Soft, Tenderness (no guarding, no distension) Genitourinary: Yes: WNL Neurological: Yes: Alert, Oriented Labs: CBC, BMP 11/13/18 05:55 11/13/18 05:55 INR, PTT INR 2.07 (0.83-1.09) H 11/13/18 05:55 Problem List - Problems (1) Colitis Code(s): K52.9 - NONINFECTIVE GASTROENTERITIS AND COLITIS, UNSPECIFIED (2) Acute on chronic systolic (congestive) heart failure Code(s): I50.23 - ACUTE ON CHRONIC SYSTOLIC (CONGESTIVE) HEART FAILURE (3) Afib Code(s): I48.91 - UNSPECIFIED ATRIAL FIBRILLATION Qualifiers: Atrial fibrillation type: paroxysmal Qualified Code(s): I48.0 - Paroxysmal atrial fibrillation (4) Anemia Code(s): D64.9 - ANEMIA, UNSPECIFIED (5) Diabetes Code(s): E11.9 - TYPE 2 DIABETES MELLITUS WITHOUT COMPLICATIONS Qualifiers: Diabetes mellitus type: type 2 (6) HLD (hyperlipidemia) Code(s): E78.5 - HYPERLIPIDEMIA, UNSPECIFIED (7) HTN (hypertension) Code(s): I10 - ESSENTIAL (PRIMARY) HYPERTENSION Qualifiers: Hypertension type: essential hypertension Qualified Code(s): I10 - Essential (primary) hypertension Assessment/Plan Colitis VILLA on CKD DM s/p CVA Renal artery stenosis s/p AAA repair -- f/u C.diff PCR -- monitor for continue vomiting pt currently afebrile, without distress but still with diarrhea/abd discomfort d/w PMD
[2018-11-13] MEDS: KCL 10 MEQ IVPB 10 MEQ/100 ML INFUS.BAG IVPB SCH ×2 (15:25→20:01)
[2018-11-13] MEDS: PANTOPRAZOLE SODIUM 40 MG VIAL IVPUSH SCH (15:25)
[2018-11-13] MEDS ORDERED: morphine CARPU-JECT 2 MG/1 ML DISP.SYRIN IVPUSH PRN (18:00)
[2018-11-13] MEDS ORDERED: morphine CARPU-JECT 4 MG/1 ML DISP.SYRIN IVPUSH SCH (18:00)
[2018-11-13] MEDS: MORPHINE SULFATE 2 MG/ML VIAL IVPUSH PRN (18:52)
[2018-11-13] MEDS: ALPRAZolam 0.25 MG TABLET PO SCH (21:43)
[2018-11-13] MEDS: LATANOPROST 0.005% OPHTH SOLN 2.5ML BOTTLE OU SCH (21:53)
[2018-11-13] MEDS: ROSUVASTATIN CA 5 MG TABLET (FP) PO SCH (21:54)
[2018-11-13] MEDS: DONEPEZIL HCL 5 MG TABLET (FP) PO SCH (21:54)
[2018-11-14] MEDS ORDERED: PT OWN MED DRAWER 7, Y5N ONE ×2 (01:51→22:03)
[2018-11-14] MEDS: AZTREONAM 1 GM in DEXTROSE 5%-WATER - 50 ML IVPB SCH ×3 (01:52→17:30)
[2018-11-14] MEDS: VANCOMYCIN 250 MG/5 ML ORAL SOLUTION PO SCH ×3 (05:09→17:29)
[2018-11-14] MEDS: sitaGLIPtin PHOSPHATE 25 MG TABLET (FP) PO SCH (06:04)
[2018-11-14] MEDS: INSULIN SLIDING SCALE (NOVOLOG) 1 VIAL SQ SCH ×4 (06:04→22:18)
[2018-11-14 06:40] LABS: BASO % 0.4 % (0-2.0); EOS % 2.4 % (0-4.5); HEMATOCRIT 38.1 % (32.4-45.2); HEMOGLOBIN 13.7 GM/dL (10.7-15.3); LYMPH % 45.1 % (8-40); MCH 32.2 pg (25.7-33.7); MCHC 35.8 g/dl (32.0-36.0); MEAN CELL VOLUME 89.9 fl (80-96); MEAN PLT VOLUME 9.3 fl (7.5-11.1); MONO % 10.7 % (3.8-10.2); NEUT % 41.4 % (42.8-82.8); PLATELET COUNT 198 K/MM3 (134-434); RBC 4.24 M/mm3 (3.60-5.2); RDW 13.9 % (11.6-15.6); WHITE BLOOD COUNT 4.9 K/mm3 (4.0-10.0)
[2018-11-14 07:11] LABS: INR 2.37 (0.83-1.09); PROTHROMBIN TIME (PATIENT) 28.2 SEC (9.7-13.0)
[2018-11-14 07:18] LABS: ALBUMIN 3.1 g/dl (3.4-5.0); ALK PHOS 144 U/L (45-117); ANION GAP 7 MMOL/L (8-16); BILIRUBIN,TOTAL 0.5 mg/dL (0.2-1); BLOOD UREA NITROGEN 12 mg/dL (7-18); CALCIUM 8.7 mg/dL (8.5-10.1); CHLORIDE 106 mmol/L (98-107); CO2 26 mmol/L (21-32); CREATININE 1.5 mg/dL (0.55-1.3); GLUCOSE,RANDOM 110 mg/dL (74-106); MAGNESIUM 1.5 mg/dL (1.8-2.4); POTASSIUM 3.1 mmol/L (3.5-5.1); SGOT/AST 46 U/L (15-37); SGPT/ALT 33 U/L (13-61); SODIUM 140 mmol/L (136-145)
[2018-11-14] MEDS: FUROSEMIDE 40 MG TABLET (FP) PO SCH (09:37)
[2018-11-14] MEDS: APIXABAN 5 MG TABLET PO SCH (09:37)
[2018-11-14] MEDS: FERROUS SO4 325 MG TABLET (FP) PO SCH (09:37)
[2018-11-14] MEDS: COLCHICINE 0.6 MG TABLET (FP) PO SCH ×2 (09:37→22:10)
[2018-11-14] MEDS: PANTOPRAZOLE SODIUM 40 MG VIAL IVPUSH SCH (09:37)
[2018-11-14] MEDS: CLOPIDOGREL BISULFATE 75 MG TABLET (FP) PO SCH (09:37)
[2018-11-14] MEDS: CARVEDILOL 25 MG TABLET (FP) PO SCH ×2 (09:37→22:10)
[2018-11-14] MEDS: VALSARTAN 80 MG TABLET (UD) PO SCH ×2 (09:37→22:11)
[2018-11-14] MEDS: DORZOLAMIDE 2% HCL OPHTHALMIC SOLUTION 10 ML BOTTLE OU SCH ×2 (09:38→22:12)
[2018-11-14] MEDS: TIMOLOL 0.5% OPHTHALMIC SOL 5 ML BOTTLE OU SCH ×2 (09:38→22:12)
[2018-11-14] MEDS: HYDROXYCHLOROQUINE SO4 200 MG TABLET (FP) PO SCH (09:38)
--- NOTE | 2018-11-14 11:39 | PN ---
Physical Exam: SUBJECTIVE: Patient seen and examined OBJECTIVE: Vital Signs Period Temp Pulse Resp BP Sys/[place] Pulse Ox Last 24 Hr 97.8 F-98.0 F 60-61 16-20 129-190/59-78 95-95 GENERAL: The patient is awake, alert, and fully oriented, in no acute distress. HEAD: Normal with no signs of trauma. EYES: PERRL, extraocular movements intact, sclera anicteric, conjunctiva clear. No ptosis. ENT: Ears normal, nares patent, oropharynx clear without exudates, moist mucous membranes. NECK: Trachea midline, full range of motion, supple. LUNGS: Breath sounds equal, clear to auscultation bilaterally, no wheezes, no crackles, no accessory muscle use. HEART: Regular rate and rhythm, S1, S2 without murmur, rub or gallop. ABDOMEN: Soft, nontender, nondistended, normoactive bowel sounds, no guarding, no rebound, no hepatosplenomegaly, no masses. EXTREMITIES: 2+ pulses, warm, well-perfused, no edema. NEUROLOGICAL: Cranial nerves II through XII grossly intact. Normal speech, gait not observed. PSYCH: Normal mood, normal affect. SKIN: Warm, dry, normal turgor, no rashes or lesions noted Laboratory Results - last 24 hr 11/13/18 11/13/18 11/13/18 05:55 05:55 11:42 WBC RBC Hgb Hct MCV MCH MCHC RDW Plt Count MPV Absolute Neuts (auto) Neutrophils % Lymphocytes % Monocytes % Eosinophils % Basophils % Nucleated RBC % PT with INR 24.60 H INR 2.07 H Sodium 140 Potassium 3.3 L Chloride 107 Carbon Dioxide 25 Anion Gap 8 BUN 10 Creatinine 1.4 H Creat Clearance w eGFR 36.76 POC Glucometer 134 Random Glucose 142 H Calcium 9.0 Phosphorus 2.8 Magnesium 1.7 L Total Bilirubin 0.4 AST 39 H ALT 32 Alkaline Phosphatase 154 H Total Protein 6.2 L Albumin 3.2 L 11/13/18 11/13/18 11/14/18 16:39 21:56 04:59 WBC RBC Hgb Hct MCV MCH MCHC RDW Plt Count MPV Absolute Neuts (auto) Neutrophils % Lymphocytes % Monocytes % Eosinophils % Basophils % Nucleated RBC % PT with INR INR Sodium Potassium Chloride Carbon Dioxide Anion Gap BUN Creatinine Creat Clearance w eGFR POC Glucometer 129 95 102 Random Glucose Calcium Phosphorus Magnesium Total Bilirubin AST ALT Alkaline Phosphatase Total Protein Albumin 11/14/18 11/14/18 11/14/18 06:00 06:00 06:00 WBC 4.9 RBC 4.24 Hgb 13.7 Hct 38.1 MCV 89.9 MCH 32.2 MCHC 35.8 RDW 13.9 Plt Count 198 MPV 9.3 Absolute Neuts (auto) 2.0 Neutrophils % 41.4 L Lymphocytes % 45.1 H Monocytes % 10.7 H Eosinophils % 2.4 Basophils % 0.4 Nucleated RBC % 0 PT with INR 28.20 H INR 2.37 H Sodium 140 Potassium 3.1 L Chloride 106 Carbon Dioxide 26 Anion Gap 7 L BUN 12 Creatinine 1.5 H Creat Clearance w eGFR 33.94 POC Glucometer Random Glucose 110 H Calcium 8.7 Phosphorus 3.0 Magnesium 1.5 L Total Bilirubin 0.5 AST 46 H ALT 33 Alkaline Phosphatase 144 H Total Protein 6.0 Ltyh Albumin 3.1 L Active Medications Generic Name Dose Route Start Last Admin Trade Name Freq PRN Reason Stop Dose Admin Acetaminophen 650 mg 11/10/18 15:29 11/12/18 22:13 Tylenol - PO 650 mg Q4H PRN Administration PAIN LEVEL 1 - 3 Alprazolam 1.5 mg 11/09/18 22:00 11/13/18 21:43 Xanax - PO Not Given HS [facility] Apixaban 5 mg 11/12/18 22:00 11/14/18 09:37 Eliquis - PO 5 mg BID [facility] Administration Carvedilol 25 mg 11/09/18 22:00 11/14/18 09:37 Coreg - PO 25 mg BID [facility] Administration Clopidogrel Bisulfate 75 mg 11/10/18 10:00 11/14/18 09:37 Plavix - PO 75 mg DAILY [facility] Administration Colchicine 0.6 mg 11/09/18 22:00 11/14/18 09:37 Colcrys - PO 0.6 mg BID [facility] Administration Diltiazem HCl 240 mg 11/10/18 10:00 11/14/18 09:37 Cardizem Cd - PO 240 mg DAILY [facility] Administration Donepezil HCl 5 mg 11/10/18 22:00 11/13/18 21:54 Aricept - PO 5 mg HS [facility] Administration Dorzolamide HCl 1 drop 11/09/18 22:00 11/14/18 09:38 Trusopt 2% OU 1 drop BID [facility] Administration Ferrous Sulfate 325 mg 11/10/18 10:00 11/14/18 09:37 Feosol - PO 325 mg DAILY [facility] Administration Furosemide 40 mg 11/10/18 10:00 11/14/18 09:37 Lasix - PO 40 mg DAILY [facility] Administration Hydroxychloroquine Sulfate 200 mg 11/10/18 10:00 11/14/18 09:38 Plaquenil - PO 200 mg DAILY [facility] Administration Metronidazole 500 mg in 100 mls @ 100 mls/hr 11/10/18 12:30 11/14/18 01:53 Flagyl 500mg Premixed Ivpb - IVPB 100 mls/hr Q8H-IV [facility] Administration Aztreonam 1 gm/ Dextrose 50 mls @ 100 mls/hr 11/10/18 16:00 11/14/18 09:37 IVPB 100 mls/hr Q8H-IV [facility] Administration Protocol Insulin Aspart 1 vial 11/09/18 22:00 11/14/18 06:04 Novolog Vial Sliding Scale - SQ Not Given ACHS [facility] Protocol Latanoprost 1 drop 11/09/18 22:00 11/13/18 21:53 Xalatan 0.005% Eye Drops - OU 1 drop HS [facility] Administration Morphine Sulfate 2 mg 11/13/18 18:38 11/13/18 18:52 Morphine Sulfate IVPUSH 2 mg Q4H PRN Administration PAIN LEVEL 7 - 10 Pantoprazole Sodium 40 mg 11/13/18 14:00 11/14/18 09:37 Protonix Iv IVPUSH 40 mg DAILY [facility] Administration Rosuvastatin Calcium 5 mg 11/09/18 22:00 11/13/18 21:54 Crestor - PO 5 mg HS [facility] Administration Sitagliptin Phosphate 25 mg 11/10/18 07:00 11/14/18 06:04 Januvia - PO Not Given DAILY@0700 [facility] Timolol Maleate 1 drop 11/09/18 22:00 11/14/18 09:38 Timoptic 0.5% OU 1 drop BID [facility] Administration Valsartan 80 mg 11/12/18 17:45 11/14/18 09:37 Diovan - PO 80 mg BID [facility] Administration Vancomycin HCl 125 mg 11/10/18 18:00 11/14/18 05:09 Vancomycin Oral Solution PO 125 mg Q6HPO [facility] Administration ASSESSMENT/PLAN: The patient was seen and examined at bedside. Feels no N/V in last 24 hours. No diarrhea either. Remains afebrile. # Acute Colitis : IMproving slowly. Would advance diet to full liquid. c/w IV Abx. Please De-escalate as per ID. # ? VILLA on CKD stage 4 with Hypokalemia and Hypomagnessemia Will replete but be cautious. Consider holding valsartan if S. Cr keeps goinf up. Trend BMP. # CDI : On PO vanco. Diarrhea slowed down. Please c/w other medical mgmt. Plan d/w the patient and the nurse at bedside. Visit type - Emergency Visit Emergency Visit: Yes ED Registration Date: 11/09/18 Care time: The patient presented to the Emergency Department on the above date and was hospitalized for further evaluation of their emergent condition. - New Patient This patient is new to me today: Yes Date on this admission: 11/14/18 - Critical Care Critical Care patient: No - Discharge Referral Referred to [facility] Med [facility].C[facility] No
[2018-11-14] MEDS ORDERED: POTASSIUM CHLORIDE 20 MEQ PREMIX IVPB 100 ML IVPB ONE (11:41)
[2018-11-14] MEDS ORDERED: MAGNESIUM SULF 50% (8.12 MEQ/2 ML-1 GM VIAL) IVPB ONE (13:00)
[2018-11-14] MEDS: KCL 10 MEQ IVPB 10 MEQ/100 ML INFUS.BAG IVPB SCH (14:59)
--- NOTE | 2018-11-14 15:03 | PN ---
Progress Note, Physician History of Present Illness: still having dirrhoea and abd pain and back pain family in room - Current Medication List Current Medications: Active Medications Acetaminophen (Tylenol -) 650 mg PO Q4H PRN PRN Reason: PAIN LEVEL 1 - 3 Last Admin: 11/12/18 22:13 Dose: 650 mg Alprazolam (Xanax -) 1.5 mg PO HS [facility] Last Admin: 11/13/18 21:43 Dose: Not Given Apixaban (Eliquis -) 5 mg PO BID [facility] Last Admin: 11/14/18 09:37 Dose: 5 mg Carvedilol (Coreg -) 25 mg PO BID [facility] Last Admin: 11/14/18 09:37 Dose: 25 mg Clopidogrel Bisulfate (Plavix -) 75 mg PO DAILY [facility] Last Admin: 11/14/18 09:37 Dose: 75 mg Colchicine (Colcrys -) 0.6 mg PO BID [facility] Last Admin: 11/14/18 09:37 Dose: 0.6 mg Diltiazem HCl (Cardizem Cd -) 240 mg PO DAILY [facility] Last Admin: 11/14/18 09:37 Dose: 240 mg Donepezil HCl (Aricept -) 5 mg PO [facility] Last Admin: 11/13/18 21:54 Dose: 5 mg Dorzolamide HCl (Trusopt 2%) 1 drop OU BID [facility] Last Admin: 11/14/18 09:38 Dose: 1 drop Ferrous Sulfate (Feosol -) 325 mg PO DAILY [facility] Last Admin: 11/14/18 09:37 Dose: 325 mg Furosemide (Lasix -) 40 mg PO DAILY [facility] Last Admin: 11/14/18 09:37 Dose: 40 mg Hydroxychloroquine Sulfate (Plaquenil -) 200 mg PO DAILY [facility] Last Admin: 11/14/18 09:38 Dose: 200 mg Metronidazole (Flagyl 500mg Premixed Ivpb -) 500 mg in 100 mls @ 100 mls/hr IVPB Q8H-IV [facility] Last Admin: 11/14/18 10:35 Dose: 100 mls/hr Aztreonam 1 gm/ Dextrose 50 mls @ 100 mls/hr IVPB Q8H-IV [facility]; Protocol Last Admin: 11/14/18 09:37 Dose: 100 mls/hr Insulin Aspart (Novolog Vial Sliding Scale -) 1 vial SQ ACHS [facility]; Protocol Last Admin: 11/14/18 12:29 Dose: Not Given Latanoprost (Xalatan 0.005% Eye Drops -) 1 drop OU HS [facility] Last Admin: 11/13/18 21:53 Dose: 1 drop Morphine Sulfate (Morphine Sulfate) 2 mg IVPUSH Q4H PRN PRN Reason: PAIN LEVEL 7 - 10 Last Admin: 11/13/18 18:52 Dose: 2 mg Pantoprazole Sodium (Protonix Iv) 40 mg IVPUSH DAILY [facility] Last Admin: 11/14/18 09:37 Dose: 40 mg Rosuvastatin Calcium (Crestor -) 5 mg PO HS [facility] Last Admin: 11/13/18 21:54 Dose: 5 mg Sitagliptin Phosphate (Januvia -) 25 mg PO DAILY@0700 [facility] Last Admin: 11/14/18 06:04 Dose: Not Given Timolol Maleate (Timoptic 0.5%) 1 drop OU BID [facility] Last Admin: 11/14/18 09:38 Dose: 1 drop Valsartan (Diovan -) 80 mg PO BID [facility] Last Admin: 11/14/18 09:37 Dose: 80 mg Vancomycin HCl (Vancomycin Oral Solution) 125 mg PO Q6HPO [facility] Last Admin: 11/14/18 12:02 Dose: 125 mg - Objective Vital Signs: Vital Signs Temperature 98.0 F 11/14/18 10:00 Pulse Rate 60 11/14/18 10:00 Respiratory Rate 18 11/14/18 10:00 Blood Pressure 150/68 11/14/18 10:00 O2 Sat by Pulse Oximetry (%) 95 11/14/18 09:00 Constitutional: Yes: Calm, Mild Distress Cardiovascular: Yes: S1, S2 Respiratory: Yes: Regular, CTA Bilaterally Gastrointestinal: Yes: Normal Bowel Sounds, Soft, Tenderness Musculoskeletal: Yes: Back Pain Extremities: Yes: WNL Neurological: Yes: Alert, Oriented Psychiatric: Yes: Alert, Oriented Labs: CBC, BMP 11/14/18 06:00 11/14/18 06:00 INR, PTT INR 2.37 (0.83-1.09) H 11/14/18 06:00 Assessment/Plan This is a 73 year old woman with a history of CVA with right hemiparesis, PAF, HTN, hyperlipdemia, CAD, GERD, colitis, PAD, renal artery stenosis, DVT, type 2 DM, AAA, pacemaker 1. Acute colitis, recurrent 2. Acute kidney injury on stage 3 CKD 3. CAD, history of stent 4. HTN 5. Hyperlipidemia 6. Paroxysmal atrial fibrillation 7. Type 2 diabetes mellitus 8. History of DVT, hypercoagulable state 9. PAD 10. Renal artery stenosis 11. AAA, history of repair 12. Right hemiparesis secondary to old CVA plan continue abx 'oral vanco monitor dirrhoea rest as per the team
--- NOTE | 2018-11-14 15:29 | PN ---
Progress Note (short form) - Note Progress Note: Patient seen in follow up for Dr. Delacruz Patient reports 8-9 episodes of nonbloody diarrhea yesterday, 1 episode of watery stool today +abdominal pain Vital Signs - 24 hr 11/14/18 11/14/18 11/14/18 06:00 09:00 10:00 Temperature 98.0 F 98.0 F Pulse Rate 60 60 Respiratory 18 18 Rate Blood Pressure 140/59 L 150/68 O2 Sat by Pulse 95 Oximetry (%) Chronically ill appearing Soft, ttp predominantly in LLQ and epigastrium Labs reviewed CBC, BMP 11/14/18 06:00 11/14/18 06:00 C. diff PCR negative Impression: Diarrhea, which does not seem to be improving despite treatment for infectious colitis and for C. diff. Yates-colonic thickening on non-contrast CT. Unlikely to be ischemic in etiology given distribution. Would suggest colonoscopic evaluation later in the week -- Dr. Delacruz returns 11/16. In preparation for possible procedure, would begin holding Eliquis -- if bridging is desired, then would favor lovenox or unfractionated heparin until timing of colonoscopy is confirmed.
[2018-11-14] MEDS ORDERED: POTASSIUM CHLORIDE ORAL LIQUID 20 MEQ/15 ML PO ONE (16:00)
[2018-11-14] MEDS ORDERED: ONDANSETRON 4 MG/2 ML VIAL IVPUSH ONE (21:38)
[2018-11-14] MEDS: ROSUVASTATIN CA 5 MG TABLET (FP) PO SCH (22:10)
[2018-11-14] MEDS: ALPRAZolam 0.25 MG TABLET PO SCH (22:10)
[2018-11-14] MEDS: DONEPEZIL HCL 5 MG TABLET (FP) PO SCH (22:11)
[2018-11-14] MEDS: LATANOPROST 0.005% OPHTH SOLN 2.5ML BOTTLE OU SCH (22:11)
[2018-11-15] MEDS: VANCOMYCIN 250 MG/5 ML ORAL SOLUTION PO SCH ×5 (00:15→23:43)
[2018-11-15] MEDS ORDERED: PT OWN MED DRAWER 7, Y5N ONE ×3 (03:09→22:10)
[2018-11-15] MEDS: AZTREONAM 1 GM in DEXTROSE 5%-WATER - 50 ML IVPB SCH ×3 (03:12→17:13)
[2018-11-15] MEDS: sitaGLIPtin PHOSPHATE 25 MG TABLET (FP) PO SCH (06:26)
[2018-11-15] MEDS: INSULIN SLIDING SCALE (NOVOLOG) 1 VIAL SQ SCH ×4 (06:27→22:16)
[2018-11-15 06:40] LABS: ANION GAP 6 MMOL/L (8-16); BLOOD UREA NITROGEN 12 mg/dL (7-18); CHLORIDE 112 mmol/L (98-107); CO2 26 mmol/L (21-32); CREATININE 1.4 mg/dL (0.55-1.3); GLUCOSE,RANDOM 109 mg/dL (74-106); MAGNESIUM 2.3 mg/dL (1.8-2.4); POTASSIUM 3.5 mmol/L (3.5-5.1); SODIUM 145 mmol/L (136-145)
[2018-11-15] MEDS: MORPHINE SULFATE 2 MG/ML VIAL IVPUSH PRN (08:56)
[2018-11-15] MEDS ORDERED: ONDANSETRON 4 MG/2 ML VIAL IVPUSH ONE (09:01)
--- NOTE | 2018-11-15 09:11 | PN ---
Progress Note, Physician Chief Complaint: Well known to me from office and prior hospitalizations. Complicated medical history: Equivocal Lupus Anticoagulant AB, followed by Rheum and Heme at [facility] Prior CVA AF s/p PPM DVT HTN Renal artery stenosis CKD Hx of pericardial effusion Chronic diastolic CHF AAA s/p EVAR T. O CHELSY Dementia She is now admitted with diarrhea and diffuse abdominal pain. Seen by GI. CT scan shows diffuse colonic thickening. CDiff is negative. Based on review of GI notes, ischemia seems to be unlikely. She denies CP, SOB, palpitations, edema, syncope. - Current Medication List Current Medications: Active Medications Acetaminophen (Tylenol -) 650 mg PO Q4H PRN PRN Reason: PAIN LEVEL 1 - 3 Last Admin: 11/12/18 22:13 Dose: 650 mg Alprazolam (Xanax -) 1.5 mg PO HS [facility] Last Admin: 11/14/18 22:10 Dose: 1.5 mg Carvedilol (Coreg -) 25 mg PO BID [facility] Last Admin: 11/14/18 22:10 Dose: 25 mg Clopidogrel Bisulfate (Plavix -) 75 mg PO DAILY [facility] Last Admin: 11/14/18 09:37 Dose: 75 mg Colchicine (Colcrys -) 0.6 mg PO BID [facility] Last Admin: 11/14/18 22:10 Dose: 0.6 mg Diltiazem HCl (Cardizem Cd -) 240 mg PO DAILY [facility] Last Admin: 11/14/18 09:37 Dose: 240 mg Donepezil HCl (Aricept -) 5 mg PO HS [facility] Last Admin: 11/14/18 22:11 Dose: 5 mg Dorzolamide HCl (Trusopt 2%) 1 drop OU BID [facility] Last Admin: 11/14/18 22:12 Dose: 1 drop Ferrous Sulfate (Feosol -) 325 mg PO DAILY [facility] Last Admin: 11/14/18 09:37 Dose: 325 mg Furosemide (Lasix -) 40 mg PO DAILY [facility] Last Admin: 11/14/18 09:37 Dose: 40 mg Hydroxychloroquine Sulfate (Plaquenil -) 200 mg PO DAILY [facility] Last Admin: 11/14/18 09:38 Dose: 200 mg Metronidazole (Flagyl 500mg Premixed Ivpb -) 500 mg in 100 mls @ 100 mls/hr IVPB Q8H-IV [facility] Last Admin: 11/15/18 01:26 Dose: 100 mls/hr Aztreonam 1 gm/ Dextrose 50 mls @ 100 mls/hr IVPB Q8H-IV [facility]; Protocol Last Admin: 11/15/18 03:12 Dose: 100 mls/hr Insulin Aspart (Novolog Vial Sliding Scale -) 1 vial SQ ACHS [facility]; Protocol Last Admin: 11/15/18 06:27 Dose: Not Given Latanoprost (Xalatan 0.005% Eye Drops -) 1 drop OU HS [facility] Last Admin: 11/14/18 22:11 Dose: 1 drop Morphine Sulfate (Morphine Sulfate) 2 mg IVPUSH Q4H PRN PRN Reason: PAIN LEVEL 7 - 10 Last Admin: 11/15/18 08:56 Dose: 2 mg Ondansetron HCl (Zofran Injection) 4 mg IVPUSH ONCE ONE Stop: 11/15/18 09:02 Pantoprazole Sodium (Protonix Iv) 40 mg IVPUSH DAILY [facility] Last Admin: 11/14/18 09:37 Dose: 40 mg Rosuvastatin Calcium (Crestor -) 5 mg PO HS [facility] Last Admin: 11/14/18 22:10 Dose: 5 mg Sitagliptin Phosphate (Januvia -) 25 mg PO DAILY@0700 [facility] Last Admin: 11/15/18 06:26 Dose: Not Given Timolol Maleate (Timoptic 0.5%) 1 drop OU BID [facility] Last Admin: 11/14/18 22:12 Dose: 1 drop Valsartan (Diovan -) 80 mg PO BID [facility] Last Admin: 11/14/18 22:11 Dose: 80 mg Vancomycin HCl (Vancomycin Oral Solution) 125 mg PO Q6HPO [facility] Last Admin: 11/15/18 06:25 Dose: 125 mg - Objective Vital Signs: Vital Signs Temperature 98.2 F 11/15/18 07:17 Pulse Rate 72 11/15/18 07:17 Respiratory Rate 19 11/15/18 07:17 Blood Pressure 150/63 11/15/18 07:17 O2 Sat by Pulse Oximetry (%) 96 11/14/18 21:00 Constitutional: Yes: No Distress Eyes: Yes: Conjunctiva Clear Cardiovascular: Yes: Regular Rate and Rhythm (paced rhythm) Respiratory: Yes: CTA Bilaterally Gastrointestinal: Yes: Soft (generally soft. No rebound or guarding. Mild diffuse tenderness) Edema: Yes Edema: LLE: 1+, RLE: 1+ Neurological: Yes: Alert Labs: CBC, BMP 11/14/18 06:00 11/15/18 06:00 INR, PTT INR 2.37 (0.83-1.09) H 11/14/18 06:00 - ....Imaging Cat Scan: Report Reviewed EKG: Image Reviewed (TELE: A-paced.) Assessment/Plan IMP: Nonspecific Colitis Equivocal Lupus Anticoagulant AB, followed by Rheum and Heme at [facility] Prior CVA AF s/p PPM maintained on Eliquis Prior DVT HTN Renal artery stenosis CKD Hx of pericardial effusion- treated Chronic diastolic CHF AAA s/p EVAR T. O CHELSY, moderate LICA stenosis. Vascular Dementia REC: Case d/w Vascular Surgery- while EVAR repair can lead to colitis due to compromise of mesenteric arteries, this usually occurs soon after procedure. In addition, the current impression is that this does not represent an ischemic colitis based on distribution. 1. Resume Eliquis when safe to do so from GI standpoint-colonscopy is planned. 2. Continue home BP/CHF regimen: Carvedilol, ARB, Lasix. 3. Follow renal fxn closely while PO intake may be reduced, 4. Continue Plavix (if OK w/ GI)- remote hx PCI and prior CVA; Crestor. Will follow.
[2018-11-15 09:32] LABS: BASO % 0.5 % (0-2.0); EOS % 1.9 % (0-4.5); HEMATOCRIT 39.9 % (32.4-45.2); HEMOGLOBIN 13.7 GM/dL (10.7-15.3); LYMPH % 38.5 % (8-40); MCH 31.3 pg (25.7-33.7); MCHC 34.3 g/dl (32.0-36.0); MEAN CELL VOLUME 91.2 fl (80-96); NEUT % 49.1 % (42.8-82.8); PLATELET COUNT 194 K/MM3 (134-434); RBC 4.37 M/mm3 (3.60-5.2); RDW 13.8 % (11.6-15.6); WHITE BLOOD COUNT 5.4 K/mm3 (4.0-10.0)
[2018-11-15 09:52] LABS: ALK PHOS 139 U/L (45-117); SGOT/AST 39 U/L (15-37); SGPT/ALT 33 U/L (13-61); TOT PROT 5.8 g/dl (6.4-8.2)
[2018-11-15] MEDS: FUROSEMIDE 40 MG TABLET (FP) PO SCH (10:19)
[2018-11-15] MEDS: PANTOPRAZOLE SODIUM 40 MG VIAL IVPUSH SCH (10:19)
[2018-11-15] MEDS: HYDROXYCHLOROQUINE SO4 200 MG TABLET (FP) PO SCH (10:19)
[2018-11-15] MEDS: CLOPIDOGREL BISULFATE 75 MG TABLET (FP) PO SCH (10:19)
[2018-11-15] MEDS: FERROUS SO4 325 MG TABLET (FP) PO SCH (10:20)
[2018-11-15] MEDS: VALSARTAN 80 MG TABLET (UD) PO SCH ×2 (10:20→22:16)
[2018-11-15] MEDS: COLCHICINE 0.6 MG TABLET (FP) PO SCH ×2 (10:20→22:15)
[2018-11-15] MEDS: CARVEDILOL 25 MG TABLET (FP) PO SCH ×2 (10:20→22:15)
[2018-11-15] MEDS: TIMOLOL 0.5% OPHTHALMIC SOL 5 ML BOTTLE OU SCH ×2 (10:21→22:17)
[2018-11-15] MEDS: DORZOLAMIDE 2% HCL OPHTHALMIC SOLUTION 10 ML BOTTLE OU SCH ×2 (10:21→22:17)
[2018-11-15] MEDS ORDERED: HEPARIN NA (PORCINE) 5,000 UNITS/ML 1ML VIAL IVPUSH PRN ×2 (13:11)
--- NOTE | 2018-11-15 13:15 | PN ---
Physical Exam: SUBJECTIVE: Patient seen and examined at the bedside. OBJECTIVE: start on heparin gtt, off eliquis no signs of bleeding, monitor Vital Signs Period Temp Pulse Resp BP Sys/[place] Pulse Ox Last 24 Hr 97.2 F-98.6 F 60-72 18-20 149-180/63-84 96-96 GENERAL: The patient is awake, alert, and fully oriented, in no acute distress. HEAD: Normal with no signs of trauma. EYES: PERRL, extraocular movements intact, sclera anicteric, conjunctiva clear. No ptosis. ENT: Ears normal, nares patent, oropharynx clear without exudates, moist mucous membranes. NECK: Trachea midline, full range of motion, supple. LUNGS: Breath sounds equal, clear to auscultation bilaterally HEART: Regular rate and rhythm ABDOMEN: Soft, nontender, nondistended, normoactive bowel sounds, bruising on lower abdomen EXTREMITIES: 2+ pulses, warm, well-perfused, no edema. NEUROLOGICAL: Normal speech, gait not observed. PSYCH: Normal mood, normal affect. SKIN: Warm, dry, normal turgor, no rashes or lesions noted Laboratory Results - last 24 hr 11/14/18 11/14/18 11/14/18 06:00 16:10 22:09 WBC RBC Hgb Hct MCV MCH MCHC RDW Plt Count MPV Absolute Neuts (auto) Neutrophils % Lymphocytes % Monocytes % Eosinophils % Basophils % Nucleated RBC % Sodium Potassium Chloride Carbon Dioxide Anion Gap BUN Creatinine Creat Clearance w eGFR POC Glucometer 125 114 Random Glucose Calcium Magnesium Iron 100 Total Bilirubin AST ALT Alkaline Phosphatase Total Protein Albumin 11/15/18 11/15/18 11/15/18 06:00 06:00 06:21 WBC 5.4 RBC 4.37 Hgb 13.7 Hct 39.9 MCV 91.2 MCH 31.3 MCHC 34.3 RDW 13.8 Plt Count 194 MPV 10.0 Absolute Neuts (auto) 2.6 Neutrophils % 49.1 Lymphocytes % 38.5 Monocytes % 10.0 Eosinophils % 1.9 Basophils % 0.5 Nucleated RBC % 0 Sodium 145 Potassium 3.5 Chloride 112 H Carbon Dioxide 26 Anion Gap 6 L BUN 12 Creatinine 1.4 H Creat Clearance w eGFR 36.76 POC Glucometer 104 Random Glucose 109 H Calcium 9.0 Magnesium 2.3 Iron Total Bilirubin 1.0 AST 39 H ALT 33 Alkaline Phosphatase 139 H Total Protein 5.8 L Albumin 3.0 L 11/15/18 11:20 WBC RBC Hgb Hct MCV MCH MCHC RDW Plt Count MPV Absolute Neuts (auto) Neutrophils % Lymphocytes % Monocytes % Eosinophils % Basophils % Nucleated RBC % Sodium Potassium Chloride Carbon Dioxide Anion Gap BUN Creatinine Creat Clearance w eGFR POC Glucometer 123 Random Glucose Calcium Magnesium Iron Total Bilirubin AST ALT Alkaline Phosphatase Total Protein Albumin Active Medications Generic Name Dose Route Start Last Admin Trade Name Freq PRN Reason Stop Dose Admin Acetaminophen 650 mg 11/10/18 15:29 11/12/18 22:13 Tylenol - PO 650 mg Q4H PRN Administration PAIN LEVEL 1 - 3 Alprazolam 1.5 mg 11/09/18 22:00 11/14/18 22:10 Xanax - PO 1.5 mg HS [facility] Administration Carvedilol 25 mg 11/09/18 22:00 11/15/18 10:20 Coreg - PO 25 mg BID [facility] Administration Clopidogrel Bisulfate 75 mg 11/10/18 10:00 11/15/18 10:19 Plavix - PO 75 mg DAILY [facility] Administration Colchicine 0.6 mg 11/09/18 22:00 11/15/18 10:20 Colcrys - PO 0.6 mg BID [facility] Administration Diltiazem HCl 240 mg 11/10/18 10:00 11/15/18 10:20 Cardizem Cd - PO 240 mg DAILY [facility] Administration Donepezil HCl 5 mg 11/10/18 22:00 11/14/18 22:11 Aricept - PO 5 mg HS [facility] Administration Dorzolamide HCl 1 drop 11/09/18 22:00 11/15/18 10:21 Trusopt 2% OU 1 drop BID [facility] Administration Ferrous Sulfate 325 mg 11/10/18 10:00 11/15/18 10:20 Feosol - PO 325 mg DAILY [facility] Administration Furosemide 40 mg 11/10/18 10:00 11/15/18 10:19 Lasix - PO 40 mg DAILY [facility] Administration Heparin Sodium (Porcine) 1,000 unit 11/15/18 13:11 Heparin - IVPUSH PRN PRN Heparin Heparin Sodium (Porcine) 5,000 unit 11/15/18 13:11 Heparin - IVPUSH PRN PRN Heparin Hydroxychloroquine Sulfate 200 mg 11/10/18 10:00 11/15/18 10:19 Plaquenil - PO 200 mg DAILY [facility] Administration Metronidazole 500 mg in 100 mls @ 100 mls/hr 11/10/18 12:30 11/15/18 11:15 Flagyl 500mg Premixed Ivpb - IVPB 100 mls/hr Q8H-IV [facility] Administration Aztreonam 1 gm/ Dextrose 50 mls @ 100 mls/hr 11/10/18 16:00 11/15/18 10:19 IVPB 100 mls/hr Q8H-IV [facility] Administration Protocol Heparin Sodium (Porcine) 25, 500 mls @ 20 mls/hr 11/15/18 13:15 000 unit/ Sodium Chloride IV TITR [facility] Protocol 1,000 UNIT/HR Insulin Aspart 1 vial 11/09/18 22:00 11/15/18 11:22 Novolog Vial Sliding Scale - SQ Not Given ACHS [facility] Protocol Latanoprost 1 drop 11/09/18 22:00 11/14/18 22:11 Xalatan 0.005% Eye Drops - OU 1 drop HS [facility] Administration Morphine Sulfate 2 mg 11/13/18 18:38 11/15/18 08:56 Morphine Sulfate IVPUSH 2 mg Q4H PRN Administration PAIN LEVEL 7 - 10 Pantoprazole Sodium 40 mg 11/13/18 14:00 11/15/18 10:19 Protonix Iv IVPUSH 40 mg DAILY [facility] Administration Rosuvastatin Calcium 5 mg 11/09/18 22:00 11/14/18 22:10 Crestor - PO 5 mg HS [facility] Administration Sitagliptin Phosphate 25 mg 11/10/18 07:00 11/15/18 06:26 Januvia - PO Not Given DAILY@0700 [facility] Timolol Maleate 1 drop 11/09/18 22:00 11/15/18 10:21 Timoptic 0.5% OU 1 drop BID [facility] Administration Valsartan 80 mg 11/12/18 17:45 11/15/18 10:20 Diovan - PO 80 mg BID [facility] Administration Vancomycin HCl 125 mg 11/10/18 18:00 11/15/18 06:25 Vancomycin Oral Solution PO 125 mg Q6HPO [facility] Administration ASSESSMENT/PLAN: Patient is a 73 year old female with a significant past medical history of HTN, HLD, CHF, afib on eliquis, pericarditis, AAA, PPM, CVA w/ R sided deficits, uti and colitis. She was admitted on 11/09/18 for NB, watery diarrhea w/ n/v and abd pain. Patient also has hx of MRSA UTI. GI: Acute colitis Improving slowly, full liquids diet being tolerated mild nausea/no vomiting On Azactam per ID for possible colonoscopy, eliquis discontinued. Cdiff: on vanco po q6 ID following Contact precautions Renal: VILLA on CKD stage 4, chronic Hypokalemia, resolved Hypomagnessemia, resolved Cardiology Paroxysmal Atrial fibrillation On Eliquis bid, being held for possible colonoscopy. start heparin gtt and monitor. On coreq, dilitazem, furosemide Hypertension, chronic On coreq, dilitazem, furosemide Endocrine: Type 2 diabetes mellitus. chronic on Novolog SS, metformin on hold Heme: History of DVT, hypercoagulable state Developed dvt while on coumadin, was on lovenox which caused hematomas is now on eliquis. hold eliquis 2/2 to planned colonoscopy. on heparin drip. Vascular: PAD On clopidogrel fen tolerating full liquids monitor electrolytes full code Visit type - Emergency Visit Emergency Visit: Yes ED Registration Date: 11/09/18 Care time: The patient presented to the Emergency Department on the above date and was hospitalized for further evaluation of their emergent condition. - New Patient This patient is new to me today: Yes Date on this admission: 11/15/18 - Critical Care Critical Care patient: No - Discharge Referral Referred to [facility] Med [facility] No
[2018-11-15] MEDS: HEPARIN - 25,000 UNIT in SODIUM CHLORIDE 495 ML IV SCH ×2 (14:35→23:44)
--- NOTE | 2018-11-15 14:58 | PN ---
Progress Note, Physician History of Present Illness: stable dirrhoea improving back pain bothering - Current Medication List Current Medications: Active Medications Acetaminophen (Tylenol -) 650 mg PO Q4H PRN PRN Reason: PAIN LEVEL 1 - 3 Last Admin: 11/12/18 22:13 Dose: 650 mg Alprazolam (Xanax -) 1.5 mg PO HS [facility] Last Admin: 11/14/18 22:10 Dose: 1.5 mg Carvedilol (Coreg -) 25 mg PO BID [facility] Last Admin: 11/15/18 10:20 Dose: 25 mg Clopidogrel Bisulfate (Plavix -) 75 mg PO DAILY [facility] Last Admin: 11/15/18 10:19 Dose: 75 mg Colchicine (Colcrys -) 0.6 mg PO BID [facility] Last Admin: 11/15/18 10:20 Dose: 0.6 mg Diltiazem HCl (Cardizem Cd -) 240 mg PO DAILY [facility] Last Admin: 11/15/18 10:20 Dose: 240 mg Donepezil HCl (Aricept -) 5 mg PO [facility] Last Admin: 11/14/18 22:11 Dose: 5 mg Dorzolamide HCl (Trusopt 2%) 1 drop OU BID [facility] Last Admin: 11/15/18 10:21 Dose: 1 drop Ferrous Sulfate (Feosol -) 325 mg PO DAILY [facility] Last Admin: 11/15/18 10:20 Dose: 325 mg Furosemide (Lasix -) 40 mg PO DAILY [facility] Last Admin: 11/15/18 10:19 Dose: 40 mg Heparin Sodium (Porcine) (Heparin -) 1,000 unit IVPUSH PRN PRN PRN Reason: Heparin Heparin Sodium (Porcine) (Heparin -) 5,000 unit IVPUSH PRN PRN PRN Reason: Heparin Hydroxychloroquine Sulfate (Plaquenil -) 200 mg PO DAILY [facility] Last Admin: 11/15/18 10:19 Dose: 200 mg Metronidazole (Flagyl 500mg Premixed Ivpb -) 500 mg in 100 mls @ 100 mls/hr IVPB Q8H-IV [facility] Last Admin: 11/15/18 11:15 Dose: 100 mls/hr Aztreonam 1 gm/ Dextrose 50 mls @ 100 mls/hr IVPB Q8H-IV [facility]; Protocol Last Admin: 11/15/18 10:19 Dose: 100 mls/hr Heparin Sodium (Porcine) 25, (000 unit/ Sodium Chloride) 500 mls @ 20 mls/hr IV TITR [facility]; Protocol Last Admin: 11/15/18 14:35 Dose: 1,000 unit/hr, 20 mls/hr Insulin Aspart (Novolog Vial Sliding Scale -) 1 vial SQ ACHS [facility]; Protocol Last Admin: 11/15/18 11:22 Dose: Not Given Latanoprost (Xalatan 0.005% Eye Drops -) 1 drop OU HS [facility] Last Admin: 11/14/18 22:11 Dose: 1 drop Morphine Sulfate (Morphine Sulfate) 2 mg IVPUSH Q4H PRN PRN Reason: PAIN LEVEL 7 - 10 Last Admin: 11/15/18 08:56 Dose: 2 mg Pantoprazole Sodium (Protonix Iv) 40 mg IVPUSH DAILY [facility] Last Admin: 11/15/18 10:19 Dose: 40 mg Rosuvastatin Calcium (Crestor -) 5 mg PO [facility] Last Admin: 11/14/18 22:10 Dose: 5 mg Sitagliptin Phosphate (Januvia -) 25 mg PO DAILY@0700 [facility] Last Admin: 11/15/18 06:26 Dose: Not Given Timolol Maleate (Timoptic 0.5%) 1 drop OU BID [facility] Last Admin: 11/15/18 10:21 Dose: 1 drop Valsartan (Diovan -) 80 mg PO BID [facility] Last Admin: 11/15/18 10:20 Dose: 80 mg Vancomycin HCl (Vancomycin Oral Solution) 125 mg PO Q6HPO [facility] Last Admin: 11/15/18 13:34 Dose: 125 mg - Objective Vital Signs: Vital Signs Temperature 98.3 F 11/15/18 10:00 Pulse Rate 62 11/15/18 10:00 Respiratory Rate 18 11/15/18 10:00 Blood Pressure 162/63 11/15/18 10:00 O2 Sat by Pulse Oximetry (%) 96 11/15/18 09:00 Constitutional: Yes: Calm, Mild Distress Cardiovascular: Yes: Regular Rate and Rhythm Respiratory: Yes: Regular, CTA Bilaterally Gastrointestinal: Yes: Normal Bowel Sounds, Soft Musculoskeletal: Yes: Back Pain Extremities: Yes: WNL Neurological: Yes: Alert, Oriented Psychiatric: Yes: Alert, Oriented Labs: CBC, BMP 11/15/18 06:00 11/15/18 06:00 INR, PTT INR 2.37 (0.83-1.09) H 11/14/18 06:00 Assessment/Plan This is a 73 year old woman with a history of CVA with right hemiparesis, PAF, HTN, hyperlipdemia, CAD, GERD, colitis, PAD, renal artery stenosis, DVT, type 2 DM, AAA, pacemaker 1. Acute colitis, recurrent 2. Acute kidney injury on stage 3 CKD 3. CAD, history of stent 4. HTN 5. Hyperlipidemia 6. Paroxysmal atrial fibrillation 7. Type 2 diabetes mellitus 8. History of DVT, hypercoagulable state 9. PAD 10. Renal artery stenosis 11. AAA, history of repair 12. Right hemiparesis secondary to old CVA plan continue abx 'oral vanco monitor dirrhoea rest as per the team will deesclate in a day or so
--- NOTE | 2018-11-15 16:32 | PN ---
GI Progress Note Subjective: 1 diarrhea bowel movement today patient states still having abdominal pain. received opiate analgesia today - Objective Vital Signs: Vital Signs Temperature 97.9 F 11/15/18 15:52 Pulse Rate 60 11/15/18 15:52 Respiratory Rate 18 11/15/18 15:52 Blood Pressure 155/63 11/15/18 15:52 O2 Sat by Pulse Oximetry (%) 96 11/15/18 09:00 Constitutional: Calm Eyes: Yes: Sclera Icterus Cardiovascular: Yes: Regular Rate and Rhythm Respiratory: Yes: Diminished (at bases b/l with poor insp. effort) Gastrointestinal Inspection: No: Distention ...Auscultate: Yes: Normoactive Bowel Sounds ...Palpate: Yes: Tenderness (TTP mid/upper abdomen and left abdomen) ...Percussion: No: Tympanitic Edema: No (No LE edema) Neurological: Yes: Alert Labs: CBC, BMP 11/15/18 06:00 11/15/18 06:00 INR, PTT INR 2.37 (0.83-1.09) H 11/14/18 06:00 Problem List - Problems (1) Colitis Assessment/Plan: Diarrhea improved somewhat, still with persistent pain Eliquis held and she is being bridged with heparin for potential procedures later in week. Possible flex sig / colonoscopy to exclude alternate pathology such as IBD. Dr. Delacruz Resumes Coverage 11/16/17 Code(s): K52.9 - NONINFECTIVE GASTROENTERITIS AND COLITIS, UNSPECIFIED
[2018-11-15] MEDS: DONEPEZIL HCL 5 MG TABLET (FP) PO SCH (22:15)
[2018-11-15] MEDS: ROSUVASTATIN CA 5 MG TABLET (FP) PO SCH (22:16)
[2018-11-15] MEDS: ALPRAZolam 0.25 MG TABLET PO SCH (22:17)
[2018-11-15] MEDS: LATANOPROST 0.005% OPHTH SOLN 2.5ML BOTTLE OU SCH (22:17)
[2018-11-16] MEDS ORDERED: PT OWN MED DRAWER 7, Y5N ONE ×4 (01:11→21:56)
[2018-11-16] MEDS: AZTREONAM 1 GM in DEXTROSE 5%-WATER - 50 ML IVPB SCH ×3 (01:20→17:13)
[2018-11-16] MEDS: VANCOMYCIN 250 MG/5 ML ORAL SOLUTION PO SCH ×4 (06:13→23:23)
[2018-11-16] MEDS: sitaGLIPtin PHOSPHATE 25 MG TABLET (FP) PO SCH (06:15)
[2018-11-16] MEDS: INSULIN SLIDING SCALE (NOVOLOG) 1 VIAL SQ SCH ×4 (06:15→21:33)
[2018-11-16] MEDS: VALSARTAN 80 MG TABLET (UD) PO SCH ×2 (09:19→21:32)
[2018-11-16] MEDS: COLCHICINE 0.6 MG TABLET (FP) PO SCH ×2 (09:19→21:32)
[2018-11-16] MEDS: CLOPIDOGREL BISULFATE 75 MG TABLET (FP) PO SCH (09:19)
[2018-11-16] MEDS: FUROSEMIDE 40 MG TABLET (FP) PO SCH (09:19)
[2018-11-16] MEDS: FERROUS SO4 325 MG TABLET (FP) PO SCH (09:20)
[2018-11-16] MEDS: PANTOPRAZOLE SODIUM 40 MG VIAL IVPUSH SCH (09:20)
[2018-11-16] MEDS: CARVEDILOL 25 MG TABLET (FP) PO SCH ×2 (09:20→21:33)
[2018-11-16] MEDS: HYDROXYCHLOROQUINE SO4 200 MG TABLET (FP) PO SCH (09:21)
[2018-11-16] MEDS: TIMOLOL 0.5% OPHTHALMIC SOL 5 ML BOTTLE OU SCH ×2 (09:21→21:42)
[2018-11-16] MEDS: DORZOLAMIDE 2% HCL OPHTHALMIC SOLUTION 10 ML BOTTLE OU SCH ×2 (09:21→21:42)
--- NOTE | 2018-11-16 09:29 | PN ---
Progress Note, Physician Chief Complaint: no acute distress TELE: no sustained arrhythmias - Current Medication List Current Medications: Active Medications Acetaminophen (Tylenol -) 650 mg PO Q4H PRN PRN Reason: PAIN LEVEL 1 - 3 Last Admin: 11/12/18 22:13 Dose: 650 mg Alprazolam (Xanax -) 1.5 mg PO HS [facility] Last Admin: 11/15/18 22:17 Dose: Not Given Carvedilol (Coreg -) 25 mg PO BID [facility] Last Admin: 11/16/18 09:20 Dose: 25 mg Clopidogrel Bisulfate (Plavix -) 75 mg PO DAILY [facility] Last Admin: 11/16/18 09:19 Dose: 75 mg Colchicine (Colcrys -) 0.6 mg PO BID [facility] Last Admin: 11/16/18 09:19 Dose: 0.6 mg Diltiazem HCl (Cardizem Cd -) 240 mg PO DAILY [facility] Last Admin: 11/16/18 09:19 Dose: 240 mg Donepezil HCl (Aricept -) 5 mg PO HS [facility] Last Admin: 11/15/18 22:15 Dose: 5 mg Dorzolamide HCl (Trusopt 2%) 1 drop OU BID [facility] Last Admin: 11/16/18 09:21 Dose: 1 drop Ferrous Sulfate (Feosol -) 325 mg PO DAILY [facility] Last Admin: 11/16/18 09:20 Dose: 325 mg Furosemide (Lasix -) 40 mg PO DAILY [facility] Last Admin: 11/16/18 09:19 Dose: 40 mg Heparin Sodium (Porcine) (Heparin -) 1,000 unit IVPUSH PRN PRN PRN Reason: Heparin Heparin Sodium (Porcine) (Heparin -) 5,000 unit IVPUSH PRN PRN PRN Reason: Heparin Hydroxychloroquine Sulfate (Plaquenil -) 200 mg PO DAILY [facility] Last Admin: 11/16/18 09:21 Dose: 200 mg Metronidazole (Flagyl 500mg Premixed Ivpb -) 500 mg in 100 mls @ 100 mls/hr IVPB Q8H-IV [facility] Last Admin: 11/16/18 09:18 Dose: 100 mls/hr Aztreonam 1 gm/ Dextrose 50 mls @ 100 mls/hr IVPB Q8H-IV [facility]; Protocol Last Admin: 11/16/18 09:20 Dose: 100 mls/hr Heparin Sodium (Porcine) 25, (000 unit/ Sodium Chloride) 500 mls @ 20 mls/hr IV TITR [facility]; Protocol Last Titration: 11/16/18 08:41 Dose: 700 unit/hr, 14 mls/hr Insulin Aspart (Novolog Vial Sliding Scale -) 1 vial SQ ACHS [facility]; Protocol Last Admin: 11/16/18 06:15 Dose: Not Given Latanoprost (Xalatan 0.005% Eye Drops -) 1 drop OU HS [facility] Last Admin: 11/15/18 22:17 Dose: 1 drop Morphine Sulfate (Morphine Sulfate) 2 mg IVPUSH Q4H PRN PRN Reason: PAIN LEVEL 7 - 10 Last Admin: 11/15/18 08:56 Dose: 2 mg Pantoprazole Sodium (Protonix Iv) 40 mg IVPUSH DAILY [facility] Last Admin: 11/16/18 09:20 Dose: 40 mg Rosuvastatin Calcium (Crestor -) 5 mg PO HS [facility] Last Admin: 11/15/18 22:16 Dose: 5 mg Sitagliptin Phosphate (Januvia -) 25 mg PO DAILY@0700 [facility] Last Admin: 11/16/18 06:15 Dose: Not Given Timolol Maleate (Timoptic 0.5%) 1 drop OU BID [facility] Last Admin: 11/16/18 09:21 Dose: 1 drop Valsartan (Diovan -) 80 mg PO BID [facility] Last Admin: 11/16/18 09:19 Dose: 80 mg Vancomycin HCl (Vancomycin Oral Solution) 125 mg PO Q6HPO [facility] Last Admin: 11/16/18 06:13 Dose: 125 mg - Objective Vital Signs: Vital Signs Temperature 97.2 F L 11/16/18 06:00 Pulse Rate 60 11/16/18 06:00 Respiratory Rate 18 11/16/18 06:00 Blood Pressure 141/61 11/16/18 06:00 O2 Sat by Pulse Oximetry (%) 97 11/15/18 21:00 Constitutional: Yes: No Distress, Calm Cardiovascular: Yes: Regular Rate and Rhythm (paced) Respiratory: Yes: CTA Bilaterally Gastrointestinal: Yes: Soft (mild diffuse tenderness, no rebound or guarding.) Edema: No Neurological: Yes: Alert, Oriented Labs: CBC, BMP 11/15/18 06:00 11/15/18 06:00 INR, PTT INR 2.37 (0.83-1.09) H 11/14/18 06:00 - ....Imaging EKG: Image Reviewed Assessment/Plan IMP: Nonspecific Colitis Equivocal Lupus Anticoagulant AB, followed by Talat and Brianna at [facility] Prior CVA AF s/p PPM maintained on Eliquis Prior DVT HTN Renal artery stenosis CKD Hx of pericardial effusion- treated Chronic diastolic CHF AAA s/p EVAR T. O CHELSY, moderate LICA stenosis. Vascular Dementia REC: Case d/w Vascular Surgery- while EVAR repair can lead to colitis due to compromise of mesenteric arteries, this usually occurs soon after procedure. In addition, the current impression is that this does not represent an ischemic colitis based on distribution. 1. Eliquis held for colonoscopy planned. Currently on UFH gtts 2. Continue home BP/CHF regimen: Carvedilol, ARB, Lasix. 3. Follow renal fxn closely while PO intake may be reduced, 4. Continue Plavix (if OK w/ GI)- remote hx PCI and prior CVA; Crestor.
--- NOTE | 2018-11-16 09:50 | PN ---
GI Progress Note Subjective: diarrhea twice yesterday, stool guaiac is negative - Objective Vital Signs: Vital Signs Temperature 97.2 F L 11/16/18 06:00 Pulse Rate 60 11/16/18 06:00 Respiratory Rate 18 11/16/18 06:00 Blood Pressure 141/61 11/16/18 06:00 O2 Sat by Pulse Oximetry (%) 97 11/15/18 21:00 Constitutional: Well Nourished Eyes: Yes: Conjunctiva Clear HENT: Yes: Atraumatic Neck: Yes: Supple Cardiovascular: Yes: Regular Rate and Rhythm Respiratory: Yes: CTA Bilaterally ...Auscultate: Yes: Normoactive Bowel Sounds ...Palpate: Yes: Soft, Tenderness, Epigastium. No: Firm/Rigid, Guarding, Hepatomegaly, Mass, Pulsatile Mass, Splenomegaly ...Percussion: Yes: Tympanitic Neurological: Yes: Alert, Oriented Labs: CBC, BMP 11/15/18 06:00 11/15/18 06:00 INR, PTT INR 2.37 (0.83-1.09) H 11/14/18 06:00 Problem List - Problems (1) Colitis Code(s): K52.9 - NONINFECTIVE GASTROENTERITIS AND COLITIS, UNSPECIFIED (2) Ischemic colitis Code(s): K55.9 - VASCULAR DISORDER OF INTESTINE, UNSPECIFIED (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
[2018-11-16] MEDS: ACETAMINOPHEN 325 MG TABLET (FP) PO PRN (10:03)
[2018-11-16] MEDS: MORPHINE SULFATE 2 MG/ML VIAL IVPUSH PRN ×3 (10:53→20:10)
[2018-11-16] MEDS: HEPARIN - 25,000 UNIT in SODIUM CHLORIDE 495 ML IV SCH (13:35)
--- NOTE | 2018-11-16 13:40 | PN ---
Progress Note, Physician History of Present Illness: dirrhoea definately improving back pain still continues - Current Medication List Current Medications: Active Medications Acetaminophen (Tylenol -) 650 mg PO Q4H PRN PRN Reason: PAIN LEVEL 1 - 3 Last Admin: 11/16/18 10:03 Dose: 650 mg Alprazolam (Xanax -) 1.5 mg PO HS [facility] Last Admin: 11/15/18 22:17 Dose: Not Given Carvedilol (Coreg -) 25 mg PO BID [facility] Last Admin: 11/16/18 09:20 Dose: 25 mg Clopidogrel Bisulfate (Plavix -) 75 mg PO DAILY [facility] Last Admin: 11/16/18 09:19 Dose: 75 mg Colchicine (Colcrys -) 0.6 mg PO BID [facility] Last Admin: 11/16/18 09:19 Dose: 0.6 mg Diltiazem HCl (Cardizem Cd -) 240 mg PO DAILY [facility] Last Admin: 11/16/18 09:19 Dose: 240 mg Donepezil HCl (Aricept -) 5 mg PO [facility] Last Admin: 11/15/18 22:15 Dose: 5 mg Dorzolamide HCl (Trusopt 2%) 1 drop OU BID [facility] Last Admin: 11/16/18 09:21 Dose: 1 drop Ferrous Sulfate (Feosol -) 325 mg PO DAILY [facility] Last Admin: 11/16/18 09:20 Dose: 325 mg Furosemide (Lasix -) 40 mg PO DAILY [facility] Last Admin: 11/16/18 09:19 Dose: 40 mg Heparin Sodium (Porcine) (Heparin -) 1,000 unit IVPUSH PRN PRN PRN Reason: Heparin Heparin Sodium (Porcine) (Heparin -) 5,000 unit IVPUSH PRN PRN PRN Reason: Heparin Hydroxychloroquine Sulfate (Plaquenil -) 200 mg PO DAILY [facility] Last Admin: 11/16/18 09:21 Dose: 200 mg Metronidazole (Flagyl 500mg Premixed Ivpb -) 500 mg in 100 mls @ 100 mls/hr IVPB Q8H-IV [facility] Last Admin: 11/16/18 09:18 Dose: 100 mls/hr Aztreonam 1 gm/ Dextrose 50 mls @ 100 mls/hr IVPB Q8H-IV [facility]; Protocol Last Admin: 11/16/18 09:20 Dose: 100 mls/hr Heparin Sodium (Porcine) 25, (000 unit/ Sodium Chloride) 500 mls @ 20 mls/hr IV TITR [facility]; Protocol Last Titration: 11/16/18 08:41 Dose: 700 unit/hr, 14 mls/hr Insulin Aspart (Novolog Vial Sliding Scale -) 1 vial SQ ACHS [facility]; Protocol Last Admin: 11/16/18 11:13 Dose: Not Given Latanoprost (Xalatan 0.005% Eye Drops -) 1 drop OU HS [facility] Last Admin: 11/15/18 22:17 Dose: 1 drop Morphine Sulfate (Morphine Sulfate) 2 mg IVPUSH Q4H PRN PRN Reason: PAIN LEVEL 7 - 10 Last Admin: 11/16/18 10:53 Dose: 2 mg Pantoprazole Sodium (Protonix Iv) 40 mg IVPUSH DAILY [facility] Last Admin: 11/16/18 09:20 Dose: 40 mg Rosuvastatin Calcium (Crestor -) 5 mg PO [facility] Last Admin: 11/15/18 22:16 Dose: 5 mg Sitagliptin Phosphate (Januvia -) 25 mg PO DAILY@0700 [facility] Last Admin: 11/16/18 06:15 Dose: Not Given Timolol Maleate (Timoptic 0.5%) 1 drop OU BID [facility] Last Admin: 11/16/18 09:21 Dose: 1 drop Valsartan (Diovan -) 80 mg PO BID [facility] Last Admin: 11/16/18 09:19 Dose: 80 mg Vancomycin HCl (Vancomycin Oral Solution) 125 mg PO Q6HPO [facility] Last Admin: 11/16/18 12:03 Dose: 125 mg - Objective Vital Signs: Vital Signs Temperature 98.2 F 11/16/18 09:00 Pulse Rate 66 11/16/18 09:00 Respiratory Rate 18 11/16/18 09:00 Blood Pressure 175/78 H 11/16/18 09:00 O2 Sat by Pulse Oximetry (%) 97 11/16/18 09:00 Constitutional: Yes: Calm, Mild Distress Cardiovascular: Yes: Regular Rate and Rhythm Respiratory: Yes: Regular, CTA Bilaterally Gastrointestinal: Yes: Normal Bowel Sounds, Soft Musculoskeletal: Yes: Back Pain Neurological: Yes: Alert, Oriented Psychiatric: Yes: Alert, Oriented Labs: CBC, BMP 11/15/18 06:00 11/15/18 06:00 INR, PTT INR 2.37 (0.83-1.09) H 11/14/18 06:00 Assessment/Plan This is a 73 year old woman with a history of CVA with right hemiparesis, PAF, HTN, hyperlipdemia, CAD, GERD, colitis, PAD, renal artery stenosis, DVT, type 2 DM, AAA, pacemaker 1. Acute colitis, recurrent 2. Acute kidney injury on stage 3 CKD 3. CAD, history of stent 4. HTN 5. Hyperlipidemia 6. Paroxysmal atrial fibrillation 7. Type 2 diabetes mellitus 8. History of DVT, hypercoagulable state 9. PAD 10. Renal artery stenosis 11. AAA, history of repair 12. Right hemiparesis secondary to old CVA plan continue abx 'oral vanco monitor dirrhoea rest as per the team will deesclate in a day or so
[2018-11-16 16:24] VITALS: BMI 27.8
--- NOTE | 2018-11-16 17:24 | PN ---
Physical Exam: SUBJECTIVE: Patient seen and examined at the bedside. Patient reported some abdominal pain this morning, then subsided with morphine Later in day she had some discomfort of her lower back, lidoderm ordered daughter at bedside. OBJECTIVE: Vital Signs Period Temp Pulse Resp BP Sys/[place] Pulse Ox Last 24 Hr 97.2 F-98.2 F 60-66 16-18 134-175/56-78 97-97 GENERAL: The patient is awake, alert, and fully oriented, in no acute distress. HEAD: Normal with no signs of trauma. EYES: PERRL, extraocular movements intact, sclera anicteric, conjunctiva clear. No ptosis. ENT: Ears normal, nares patent, oropharynx clear without exudates, moist mucous membranes. NECK: Trachea midline, full range of motion, supple. LUNGS: Breath sounds equal, clear to auscultation bilaterally HEART: Regular rate and rhythm ABDOMEN: Soft, nontender, nondistended, normoactive bowel sounds, bruising on lower abdomen EXTREMITIES: 2+ pulses, warm, well-perfused, no edema. NEUROLOGICAL: Normal speech, gait not observed. PSYCH: Normal mood, normal affect. SKIN: Warm, dry, normal turgor, no rashes or lesions noted Laboratory Results - last 24 hr 11/12/18 11/15/18 11/15/18 05:00 16:59 20:00 PTT (Actin FS) 116.3 H POC Glucometer 96 Stool Calprotectin 11/15/18 11/16/18 11/16/18 22:13 06:00 06:12 PTT (Actin FS) 105.4 H POC Glucometer 101 96 Stool Calprotectin 11/16/18 11/16/18 11:11 16:12 PTT (Actin FS) POC Glucometer 131 92 Stool Calprotectin Active Medications Generic Name Dose Route Start Last Admin Trade Name Freq PRN Reason Stop Dose Admin Acetaminophen 650 mg 11/10/18 15:29 11/16/18 10:03 Tylenol - PO 650 mg Q4H PRN Administration PAIN LEVEL 1 - 3 Alprazolam 1.5 mg 11/09/18 22:00 11/15/18 22:17 Xanax - PO Not Given HS [facility] Carvedilol 25 mg 11/09/18 22:00 11/16/18 09:20 Coreg - PO 25 mg BID [facility] Administration Clopidogrel Bisulfate 75 mg 11/10/18 10:00 11/16/18 09:19 Plavix - PO 75 mg DAILY [facility] Administration Colchicine 0.6 mg 11/09/18 22:00 11/16/18 09:19 Colcrys - PO 0.6 mg BID [facility] Administration Diltiazem HCl 240 mg 11/10/18 10:00 11/16/18 09:19 Cardizem Cd - PO 240 mg DAILY [facility] Administration Donepezil HCl 5 mg 11/10/18 22:00 11/15/18 22:15 Aricept - PO 5 mg HS [facility] Administration Dorzolamide HCl 1 drop 11/09/18 22:00 11/16/18 09:21 Trusopt 2% OU 1 drop BID [facility] Administration Ferrous Sulfate 325 mg 11/10/18 10:00 11/16/18 09:20 Feosol - PO 325 mg DAILY [facility] Administration Furosemide 40 mg 11/10/18 10:00 11/16/18 09:19 Lasix - PO 40 mg DAILY [facility] Administration Heparin Sodium (Porcine) 1,000 unit 11/15/18 13:11 Heparin - IVPUSH PRN PRN Heparin Heparin Sodium (Porcine) 5,000 unit 11/15/18 13:11 Heparin - IVPUSH PRN PRN Heparin Hydroxychloroquine Sulfate 200 mg 11/10/18 10:00 11/16/18 09:21 Plaquenil - PO 200 mg DAILY [facility] Administration Metronidazole 500 mg in 100 mls @ 100 mls/hr 11/10/18 12:30 11/16/18 17:12 Flagyl 500mg Premixed Ivpb - IVPB 100 mls/hr Q8H-IV [facility] Administration Aztreonam 1 gm/ Dextrose 50 mls @ 100 mls/hr 11/10/18 16:00 11/16/18 17:13 IVPB 100 mls/hr Q8H-IV [facility] Administration Protocol Heparin Sodium (Porcine) 25, 500 mls @ 20 mls/hr 11/15/18 13:15 11/16/18 13: 35 000 unit/ Sodium Chloride IV Not Given TITR [facility] Protocol 1,000 UNIT/HR Insulin Aspart 1 vial 11/09/18 22:00 11/16/18 16:47 Novolog Vial Sliding Scale - SQ Not Given ACHS [facility] Protocol Latanoprost 1 drop 11/09/18 22:00 11/15/18 22:17 Xalatan 0.005% Eye Drops - OU 1 drop HS [facility] Administration Morphine Sulfate 2 mg 11/13/18 18:38 11/16/18 14:48 Morphine Sulfate IVPUSH 2 mg Q4H PRN Administration PAIN LEVEL 7 - 10 Pantoprazole Sodium 40 mg 11/13/18 14:00 11/16/18 09:20 Protonix Iv IVPUSH 40 mg DAILY [facility] Administration Rosuvastatin Calcium 5 mg 11/09/18 22:00 11/15/18 22:16 Crestor - PO 5 mg HS [facility] Administration Sitagliptin Phosphate 25 mg 11/10/18 07:00 11/16/18 06:15 Januvia - PO Not Given DAILY@0700 [facility] Timolol Maleate 1 drop 11/09/18 22:00 11/16/18 09:21 Timoptic 0.5% OU 1 drop BID [facility] Administration Valsartan 80 mg 11/12/18 17:45 11/16/18 09:19 Diovan - PO 80 mg BID [facility] Administration Vancomycin HCl 125 mg 11/10/18 18:00 11/16/18 17:14 Vancomycin Oral Solution PO 125 mg Q6HPO [facility] Administration ASSESSMENT/PLAN: Patient is a 73 year old female with a significant past medical history of HTN, HLD, CHF, afib on eliquis, pericarditis, AAA, PPM, CVA w/ R sided deficits, uti and colitis. She was admitted on 11/09/18 for NB, watery diarrhea w/ n/v and abd pain. Patient also has hx of MRSA UTI. GI: Acute colitis. improving. Being followed by GI. On full liquid diet, which she is tolerating Still having episodes of of diarrhea overnight. mild nausea/no vomiting Morphine prn for abdominal pain On Azactam and Flagyl for possible colonoscopy per GI. Eliquis discontinued, now on heparin drip. Cdiff: on vanco po q6 ID following Contact precautions Renal: VILLA on CKD stage 4, chronic Hypokalemia, resolved Hypomagnessemia, resolved Cardiology Paroxysmal Atrial fibrillation On Eliquis bid, being held for possible colonoscopy. start heparin gtt and monitor. On coreq, dilitazem, furosemide Hypertension, chronic On coreq Endocrine: Type 2 diabetes mellitus. chronic on Novolog SS, metformin on hold Heme: History of DVT, hypercoagulable state Developed dvt while on coumadin, was on lovenox which caused hematomas and is now on eliquis. hold eliquis 2/ to planned colonoscopy. Vascular: PAD On clopidogrel fen tolerating full liquids monitor electrolytes prophy heparin gtt full code Visit type - Emergency Visit Emergency Visit: Yes ED Registration Date: 11/09/18 Care time: The patient presented to the Emergency Department on the above date and was hospitalized for further evaluation of their emergent condition. - New Patient This patient is new to me today: No - Critical Care Critical Care patient: No - Discharge Referral Referred to [facility] No
[2018-11-16] MEDS: LIDOCAINE 5% TOPICAL PATCH TP SCH (18:24)
[2018-11-16] MEDS ORDERED: DIPHENOXYLATE 2.5/ATROPINE.025 1 COMBO TABLET PO PRN (19:53)
--- NOTE | 2018-11-16 19:55 | PN ---
GI Progress Note Subjective: patient continue to have diarrhea, on clear liquids, recent colonoscopy revealed no evidence of IBD - Objective Vital Signs: Vital Signs Temperature 97.9 F 11/16/18 18:00 Pulse Rate 60 11/16/18 18:00 Respiratory Rate 18 11/16/18 18:00 Blood Pressure 142/58 L 11/16/18 18:00 O2 Sat by Pulse Oximetry (%) 97 11/16/18 09:00 Constitutional: Well Nourished Eyes: Yes: Conjunctiva Clear HENT: Yes: Atraumatic Neck: Yes: Supple Cardiovascular: Yes: Regular Rate and Rhythm Respiratory: Yes: CTA Bilaterally ...Palpate: Yes: Soft. No: Firm/Rigid, Guarding, Hepatomegaly, Mass, Pulsatile Mass, Splenomegaly, Tenderness Labs: CBC, BMP 11/15/18 06:00 11/15/18 06:00 INR, PTT INR 2.37 (0.83-1.09) H 11/14/18 06:00 Problem List - Problems (1) Colitis Assessment/Plan: --resolved R> advance diet--low fiber lactose free doubt a structural problem as patients guaic is negative and recent colonoscopy is negative for IBD diarrhea most likely secondary to a functional etiology--trial of lomotil Code(s): K52.9 - NONINFECTIVE GASTROENTERITIS AND COLITIS, UNSPECIFIED (2) Ischemic colitis Assessment/Plan: --resolving Code(s): K55.9 - VASCULAR DISORDER OF INTESTINE, UNSPECIFIED (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
[2018-11-16] MEDS: DONEPEZIL HCL 5 MG TABLET (FP) PO SCH (21:32)
[2018-11-16] MEDS: ROSUVASTATIN CA 5 MG TABLET (FP) PO SCH (21:32)
[2018-11-16] MEDS: ALPRAZolam 0.25 MG TABLET PO SCH (21:33)
[2018-11-16] MEDS: LIDOCAINE PATCH REMOVAL MC SCH (21:34)
[2018-11-16] MEDS: LATANOPROST 0.005% OPHTH SOLN 2.5ML BOTTLE OU SCH (21:42)
[2018-11-17] MEDS ORDERED: PT OWN MED DRAWER 7, Y5N ONE ×5 (01:24→21:42)
[2018-11-17] MEDS: AZTREONAM 1 GM in DEXTROSE 5%-WATER - 50 ML IVPB SCH ×3 (01:26→17:39)
[2018-11-17 06:17] LABS: BASO % 0.8 % (0-2.0); EOS % 3.7 % (0-4.5); HEMATOCRIT 39.2 % (32.4-45.2); HEMOGLOBIN 12.8 GM/dL (10.7-15.3); MCHC 32.6 g/dl (32.0-36.0); MEAN CELL VOLUME 91.9 fl (80-96); MEAN PLT VOLUME 9.3 fl (7.5-11.1); MONO % 9.4 % (3.8-10.2); NEUT % 46.1 % (42.8-82.8); PLATELET COUNT 165 K/MM3 (134-434); RBC 4.26 M/mm3 (3.60-5.2); RDW 14.1 % (11.6-15.6); WHITE BLOOD COUNT 5.2 K/mm3 (4.0-10.0)
[2018-11-17] MEDS: INSULIN SLIDING SCALE (NOVOLOG) 1 VIAL SQ SCH ×4 (06:21→21:32)
[2018-11-17] MEDS: VANCOMYCIN 250 MG/5 ML ORAL SOLUTION PO SCH ×4 (06:28→23:20)
[2018-11-17] MEDS: sitaGLIPtin PHOSPHATE 25 MG TABLET (FP) PO SCH (06:28)
[2018-11-17 06:49] LABS: ALBUMIN 2.7 g/dl (3.4-5.0); ALK PHOS 131 U/L (45-117); ANION GAP 5 MMOL/L (8-16); BILIRUBIN,TOTAL 0.3 mg/dL (0.2-1); BLOOD UREA NITROGEN 8 mg/dL (7-18); CALCIUM 8.8 mg/dL (8.5-10.1); CHLORIDE 112 mmol/L (98-107); CO2 26 mmol/L (21-32); CREATININE 1.1 mg/dL (0.55-1.3); GLUCOSE,RANDOM 96 mg/dL (74-106); MAGNESIUM 1.8 mg/dL (1.8-2.4); POTASSIUM 3.1 mmol/L (3.5-5.1); SGOT/AST 23 U/L (15-37); SGPT/ALT 24 U/L (13-61); SODIUM 143 mmol/L (136-145); TOT PROT 5.5 g/dl (6.4-8.2)
--- NOTE | 2018-11-17 08:26 | PN ---
GI Progress Note Subjective: Patient states feeling better. Denies abdominal pain or diarrhea during the night. - Objective Vital Signs: Vital Signs Temperature 98.5 F 11/17/18 06:00 Pulse Rate 60 11/17/18 06:00 Respiratory Rate 18 11/17/18 06:00 Blood Pressure 161/59 L 11/17/18 06:00 O2 Sat by Pulse Oximetry (%) 96 11/16/18 21:00 Constitutional: Well Nourished, No Distress, Calm Eyes: Yes: Conjunctiva Clear Neck: Yes: Supple Cardiovascular: Yes: Regular Rate and Rhythm Respiratory: Yes: Regular, CTA Bilaterally Gastrointestinal Inspection: Yes: WNL ...Auscultate: Yes: Normoactive Bowel Sounds ...Palpate: Yes: Soft ...Percussion: Yes: Tympanitic Labs: CBC, BMP 11/17/18 05:55 11/17/18 05:55 INR, PTT INR 2.37 (0.83-1.09) H 11/14/18 06:00 Problem List - Problems (1) Colitis Code(s): K52.9 - NONINFECTIVE GASTROENTERITIS AND COLITIS, UNSPECIFIED (2) Ischemic colitis Assessment/Plan: --resolving R> continue Imdur daily Code(s): K55.9 - VASCULAR DISORDER OF INTESTINE, UNSPECIFIED (3) Intestinal angina Assessment/Plan: continue Imdur Code(s): K55.1 - CHRONIC VASCULAR DISORDERS OF INTESTINE
--- NOTE | 2018-11-17 08:57 | PN ---
Progress Note, Physician Chief Complaint: no acute distress TELE: Paced, no sig. arrhythmias - Current Medication List Current Medications: Active Medications Acetaminophen (Tylenol -) 650 mg PO Q4H PRN PRN Reason: PAIN LEVEL 1 - 3 Last Admin: 11/16/18 10:03 Dose: 650 mg Alprazolam (Xanax -) 1.5 mg PO HS [facility] Last Admin: 11/16/18 21:33 Dose: 1.5 mg Carvedilol (Coreg -) 25 mg PO BID [facility] Last Admin: 11/16/18 21:33 Dose: 25 mg Clopidogrel Bisulfate (Plavix -) 75 mg PO DAILY [facility] Last Admin: 11/16/18 09:19 Dose: 75 mg Colchicine (Colcrys -) 0.6 mg PO BID [facility] Last Admin: 11/16/18 21:32 Dose: 0.6 mg Diltiazem HCl (Cardizem Cd -) 240 mg PO DAILY [facility] Last Admin: 11/16/18 09:19 Dose: 240 mg Diphenoxylate HCl/Atropine (Lomotil -) 1 combo PO Q8H PRN PRN Reason: DIARRHEA Donepezil HCl (Aricept -) 5 mg PO HS [facility] Last Admin: 11/16/18 21:32 Dose: 5 mg Dorzolamide HCl (Trusopt 2%) 1 drop OU BID [facility] Last Admin: 11/16/18 21:42 Dose: 1 drop Ferrous Sulfate (Feosol -) 325 mg PO DAILY [facility] Last Admin: 11/16/18 09:20 Dose: 325 mg Furosemide (Lasix -) 40 mg PO DAILY [facility] Last Admin: 11/16/18 09:19 Dose: 40 mg Heparin Sodium (Porcine) (Heparin -) 1,000 unit IVPUSH PRN PRN PRN Reason: Heparin Heparin Sodium (Porcine) (Heparin -) 5,000 unit IVPUSH PRN PRN PRN Reason: Heparin Hydroxychloroquine Sulfate (Plaquenil -) 200 mg PO DAILY [facility] Last Admin: 11/16/18 09:21 Dose: 200 mg Metronidazole (Flagyl 500mg Premixed Ivpb -) 500 mg in 100 mls @ 100 mls/hr IVPB Q8H-IV [facility] Last Admin: 11/17/18 01:26 Dose: 100 mls/hr Aztreonam 1 gm/ Dextrose 50 mls @ 100 mls/hr IVPB Q8H-IV [facility]; Protocol Last Admin: 11/17/18 01:26 Dose: 100 mls/hr Heparin Sodium (Porcine) 25, (000 unit/ Sodium Chloride) 500 mls @ 20 mls/hr IV TITR [facility]; Protocol Last Titration: 11/16/18 18:18 Dose: 600 unit/hr, 12 mls/hr Potassium Chloride (Potassium Chloride 10 Meq Premix Ivpb -) 10 meq in 100 mls @ 100 mls/hr IVPB Q60M [facility] Stop: 11/17/18 10:44 Insulin Aspart (Novolog Vial Sliding Scale -) 1 vial SQ ACHS [facility]; Protocol Last Admin: 11/17/18 06:21 Dose: Not Given Isosorbide Mononitrate (Imdur -) 30 mg PO DAILY [facility] Latanoprost (Xalatan 0.005% Eye Drops -) 1 drop OU [facility] Last Admin: 11/16/18 21:42 Dose: 1 drop Lidocaine (Lidoderm Patch -) 1 patch TP DAILY [facility] Last Admin: 11/16/18 18:24 Dose: 1 patch Miscellaneous (Lidoderm Patch Removal) 1 each MC DAILY@2200 [facility] Last Admin: 11/16/18 21:34 Dose: Not Given Morphine Sulfate (Morphine Sulfate) 2 mg IVPUSH Q4H PRN PRN Reason: PAIN LEVEL 7 - 10 Last Admin: 11/16/18 20:10 Dose: 2 mg Pantoprazole Sodium (Protonix Iv) 40 mg IVPUSH DAILY [facility] Last Admin: 11/16/18 09:20 Dose: 40 mg Rosuvastatin Calcium (Crestor -) 5 mg PO HS [facility] Last Admin: 11/16/18 21:32 Dose: 5 mg Sitagliptin Phosphate (Januvia -) 25 mg PO DAILY@0700 [facility] Last Admin: 11/17/18 06:28 Dose: Not Given Timolol Maleate (Timoptic 0.5%) 1 drop OU BID [facility] Last Admin: 11/16/18 21:42 Dose: 1 drop Valsartan (Diovan -) 80 mg PO BID [facility] Last Admin: 11/16/18 21:32 Dose: 80 mg Vancomycin HCl (Vancomycin Oral Solution) 125 mg PO Q6HPO [facility] Last Admin: 11/17/18 06:28 Dose: 125 mg - Objective Vital Signs: Vital Signs Temperature 98.5 F 11/17/18 06:00 Pulse Rate 60 11/17/18 06:00 Respiratory Rate 18 11/17/18 06:00 Blood Pressure 161/59 L 11/17/18 06:00 O2 Sat by Pulse Oximetry (%) 96 11/16/18 21:00 Constitutional: Yes: No Distress Cardiovascular: Yes: Pulse Irregular Respiratory: Yes: CTA Bilaterally Gastrointestinal: Yes: Soft Edema: Yes Edema: LLE: 1+, RLE: 1+ Neurological: Yes: Alert, Oriented ...Motor Strength: WNL Labs: CBC, BMP 11/17/18 05:55 11/17/18 05:55 INR, PTT INR 2.37 (0.83-1.09) H 11/14/18 06:00 - ....Imaging EKG: Image Reviewed Assessment/Plan IMP: Nonspecific Colitis Equivocal Lupus Anticoagulant AB, followed by Rheum and Brianna at [facility] Prior CVA AF s/p PPM maintained on Eliquis Prior DVT HTN Renal artery stenosis CKD Hx of pericardial effusion- treated Chronic diastolic CHF AAA s/p EVAR T. O CHELSY, moderate LICA stenosis. Vascular Dementia REC: Case d/w Vascular Surgery- while EVAR repair can lead to colitis due to compromise of mesenteric arteries, this usually occurs soon after procedure. In addition, the current impression is that this does not represent an ischemic colitis based on distribution. 1. Eliquis held for colonoscopy planned. Currently on UFH gtts. If C-scope not performed, resume Eliquis 2. Continue home BP/CHF regimen: Carvedilol, ARB, Lasix. 3. Follow renal fxn closely while PO intake may be reduced, replete lytes 4. Continue Plavix (if OK w/ GI)- remote hx PCI and prior CVA; Crestor.
[2018-11-17] MEDS: CLOPIDOGREL BISULFATE 75 MG TABLET (FP) PO SCH (09:10)
[2018-11-17] MEDS: CARVEDILOL 25 MG TABLET (FP) PO SCH ×2 (09:10→21:31)
[2018-11-17] MEDS: FUROSEMIDE 40 MG TABLET (FP) PO SCH (09:10)
[2018-11-17] MEDS: COLCHICINE 0.6 MG TABLET (FP) PO SCH ×2 (09:10→21:31)
[2018-11-17] MEDS: PANTOPRAZOLE SODIUM 40 MG VIAL IVPUSH SCH (09:10)
[2018-11-17] MEDS: ISOSORBIDE MONONITRATE 30 MG TAB.SR.24H (FP) PO SCH (09:11)
[2018-11-17] MEDS: FERROUS SO4 325 MG TABLET (FP) PO SCH (09:11)
[2018-11-17] MEDS: HYDROXYCHLOROQUINE SO4 200 MG TABLET (FP) PO SCH (09:11)
[2018-11-17] MEDS: KCL 10 MEQ IVPB 10 MEQ/100 ML INFUS.BAG IVPB SCH ×2 (09:11→11:26)
[2018-11-17] MEDS: VALSARTAN 80 MG TABLET (UD) PO SCH ×2 (09:11→21:31)
[2018-11-17] MEDS: TIMOLOL 0.5% OPHTHALMIC SOL 5 ML BOTTLE OU SCH ×2 (09:12→21:32)
[2018-11-17] MEDS: LIDOCAINE 5% TOPICAL PATCH TP SCH (09:12)
[2018-11-17] MEDS: DORZOLAMIDE 2% HCL OPHTHALMIC SOLUTION 10 ML BOTTLE OU SCH ×2 (09:12→21:31)
[2018-11-17] MEDS: MORPHINE SULFATE 2 MG/ML VIAL IVPUSH PRN ×3 (10:38→21:44)
[2018-11-17] MEDS: HEPARIN - 25,000 UNIT in SODIUM CHLORIDE 495 ML IV SCH (13:22)
--- NOTE | 2018-11-17 14:31 | PN ---
Physical Exam: SUBJECTIVE: Patient seen and examined at the bedside. She is c/o of back pain that is getting in the way of her getting out of bed. Lidoderm patch not helping. OBJECTIVE: K 3.1, ordered 2 K riders but only was able to tolerate 1 2/2 burning in iv site will repeat K levels later back pain: pt has lumbar spine xray that showed: partial L1 comp fx, since she continues to have back pain, will repeat xray Vital Signs Period Temp Pulse Resp BP Sys/[place] Pulse Ox Last 24 Hr 97.3 F-98.5 F 60-66 18-20 132-165/52-79 96-99 GENERAL: The patient is awake, alert, and fully oriented, having back pain today HEAD: Normal with no signs of trauma. EYES: PERRL, extraocular movements intact, sclera anicteric, conjunctiva clear. No ptosis. ENT: Ears normal, nares patent, oropharynx clear without exudates, moist mucous membranes. NECK: Trachea midline, full range of motion, supple. LUNGS: Breath sounds equal, clear to auscultation bilaterally HEART: Regular rate and rhythm ABDOMEN: Soft, nontender, nondistended, normoactive bowel sounds, bruising on lower abdomen - tolerating diet EXTREMITIES: 2+ pulses, warm, well-perfused, no edema. NEUROLOGICAL: Normal speech, gait not observed. PSYCH: Normal mood, normal affect. SKIN: Warm, dry, normal turgor, no rashes or lesions noted Laboratory Results - last 24 hr 11/12/18 11/16/18 11/16/18 05:00 16:12 17:00 WBC RBC Hgb Hct MCV MCH MCHC RDW Plt Count MPV Absolute Neuts (auto) Neutrophils % Lymphocytes % Monocytes % Eosinophils % Basophils % Nucleated RBC % PTT (Actin FS) 87.7 H Sodium Potassium Chloride Carbon Dioxide Anion Gap BUN Creatinine Creat Clearance w eGFR POC Glucometer 92 Random Glucose Calcium Magnesium Total Bilirubin AST ALT Alkaline Phosphatase Total Protein Albumin Stool Calprotectin 11/16/18 11/16/18 11/17/18 21:29 23:00 05:55 WBC RBC Hgb Hct MCV MCH MCHC RDW Plt Count MPV Absolute Neuts (auto) Neutrophils % Lymphocytes % Monocytes % Eosinophils % Basophils % Nucleated RBC % PTT (Actin FS) 72.8 H 71.5 H Sodium Potassium Chloride Carbon Dioxide Anion Gap BUN Creatinine Creat Clearance w eGFR POC Glucometer 92 Random Glucose Calcium Magnesium Total Bilirubin AST ALT Alkaline Phosphatase Total Protein Albumin Stool Calprotectin 11/17/18 11/17/18 11/17/18 05:55 05:55 05:55 WBC 5.2 RBC 4.26 Hgb 12.8 Hct 39.2 MCV 91.9 MCH 30.0 MCHC 32.6 RDW 14.1 Plt Count 165 MPV 9.3 Absolute Neuts (auto) 2.4 Neutrophils % 46.1 Lymphocytes % 40.0 Monocytes % 9.4 Eosinophils % 3.7 D Basophils % 0.8 Nucleated RBC % 0 PTT (Actin FS) Sodium 143 Potassium 3.1 L Chloride 112 H Carbon Dioxide 26 Anion Gap 5 L BUN 8 Creatinine 1.1 Creat Clearance w eGFR 48.55 POC Glucometer 104 Random Glucose 96 Calcium 8.8 Magnesium 1.8 Total Bilirubin 0.3 AST 23 ALT 24 Alkaline Phosphatase 131 H Total Protein 5.5 L Albumin 2.7 L Stool Calprotectin 11/17/18 11:11 WBC RBC Hgb Hct MCV MCH MCHC RDW Plt Count MPV Absolute Neuts (auto) Neutrophils % Lymphocytes % Monocytes % Eosinophils % Basophils % Nucleated RBC % PTT (Actin FS) Sodium Potassium Chloride Carbon Dioxide Anion Gap BUN Creatinine Creat Clearance w eGFR POC Glucometer 105 Random Glucose Calcium Magnesium Total Bilirubin AST ALT Alkaline Phosphatase Total Protein Albumin Stool Calprotectin Active Medications Generic Name Dose Route Start Last Admin Trade Name Freq PRN Reason Stop Dose Admin Acetaminophen 650 mg 11/10/18 15:29 11/16/18 10:03 Tylenol - PO 650 mg Q4H PRN Administration PAIN LEVEL 1 - 3 Alprazolam 1.5 mg 11/09/18 22:00 11/16/18 21:33 Xanax - PO 1.5 mg HS [facility] Administration Carvedilol 25 mg 11/09/18 22:00 11/17/18 09:10 Coreg - PO 25 mg BID [facility] Administration Clopidogrel Bisulfate 75 mg 11/10/18 10:00 11/17/18 09:10 Plavix - PO 75 mg DAILY [facility] Administration Colchicine 0.6 mg 11/09/18 22:00 11/17/18 09:10 Colcrys - PO 0.6 mg BID [facility] Administration Diltiazem HCl 240 mg 11/10/18 10:00 11/17/18 09:10 Cardizem Cd - PO 240 mg DAILY [facility] Administration Diphenoxylate HCl/Atropine 1 combo 11/16/18 19:53 Lomotil - PO Q8H PRN DIARRHEA Donepezil HCl 5 mg 11/10/18 22:00 11/16/18 21:32 Aricept - PO 5 mg HS [facility] Administration Dorzolamide HCl 1 drop 11/09/18 22:00 11/17/18 09:12 Trusopt 2% OU 1 drop BID [facility] Administration Ferrous Sulfate 325 mg 11/10/18 10:00 11/17/18 09:11 Feosol - PO 325 mg DAILY [facility] Administration Furosemide 40 mg 11/10/18 10:00 11/17/18 09:10 Lasix - PO 40 mg DAILY [facility] Administration Heparin Sodium (Porcine) 1,000 unit 11/15/18 13:11 Heparin - IVPUSH PRN PRN Heparin Heparin Sodium (Porcine) 5,000 unit 11/15/18 13:11 Heparin - IVPUSH PRN PRN Heparin Hydroxychloroquine Sulfate 200 mg 11/10/18 10:00 11/17/18 09:11 Plaquenil - PO 200 mg DAILY [facility] Administration Metronidazole 500 mg in 100 mls @ 100 mls/hr 11/10/18 12:30 11/17/18 09:11 Flagyl 500mg Premixed Ivpb - IVPB 100 mls/hr Q8H-IV [facility] Administration Aztreonam 1 gm/ Dextrose 50 mls @ 100 mls/hr 11/10/18 16:00 11/17/18 09:11 IVPB 100 mls/hr Q8H-IV [facility] Administration Protocol Heparin Sodium (Porcine) 25, 500 mls @ 20 mls/hr 11/15/18 13:15 11/17/18 13: 22 000 unit/ Sodium Chloride IV Not Given TITR [facility] Protocol 1,000 UNIT/HR Insulin Aspart 1 vial 11/09/18 22:00 11/17/18 11:27 Novolog Vial Sliding Scale - SQ Not Given ACHS [facility] Protocol Isosorbide Mononitrate 30 mg 11/17/18 10:00 11/17/18 09:11 Imdur - PO 30 mg DAILY [facility] Administration Latanoprost 1 drop 11/09/18 22:00 11/16/18 21:42 Xalatan 0.005% Eye Drops - OU 1 drop HS [facility] Administration Lidocaine 1 patch 11/16/18 17:45 11/17/18 09:12 Lidoderm Patch - TP 1 patch DAILY [facility] Administration Miscellaneous 1 each 11/16/18 22:00 11/16/18 21:34 Lidoderm Patch Removal MC Not Given DAILY@2200 [facility] Morphine Sulfate 2 mg 11/13/18 18:38 11/17/18 10:38 Morphine Sulfate IVPUSH 2 mg Q4H PRN Administration PAIN LEVEL 7 - 10 Pantoprazole Sodium 40 mg 11/13/18 14:00 11/17/18 09:10 Protonix Iv IVPUSH 40 mg DAILY [facility] Administration Rosuvastatin Calcium 5 mg 11/09/18 22:00 11/16/18 21:32 Crestor - PO 5 mg HS [facility] Administration Sitagliptin Phosphate 25 mg 11/10/18 07:00 11/17/18 06:28 Januvia - PO Not Given DAILY@0700 [facility] Timolol Maleate 1 drop 11/09/18 22:00 11/17/18 09:12 Timoptic 0.5% OU 1 drop BID [facility] Administration Valsartan 80 mg 11/12/18 17:45 11/17/18 09:11 Diovan - PO 80 mg BID [facility] Administration Vancomycin HCl 125 mg 11/10/18 18:00 11/17/18 12:46 Vancomycin Oral Solution PO 125 mg Q6HPO [facility] Administration ASSESSMENT/PLAN: Patient is a 73 year old female with a significant past medical history of HTN, HLD, CHF, afib on eliquis, pericarditis, AAA, PPM, CVA w/ R sided deficits, uti and colitis. She was admitted on 11/09/18 for NB, watery diarrhea w/ n/v and abd pain. Patient also has hx of MRSA UTI. GI: Acute colitis. improving. Being followed by GI. On low fiber diet, which she is tolerating denies n/v/d Morphine prn for abdominal pain On Azactam and Flagyl for possible colonoscopy per GI. Eliquis discontinued, now on heparin drip. Cdiff: on vanco po q6 ID following Contact precautions Renal: VILLA on CKD stage 4, chronic Hypokalemia, resolved Hypomagnessemia, resolved Cardiology Paroxysmal Atrial fibrillation On Eliquis bid, being held for possible colonoscopy. start heparin gtt and monitor. On coreq, dilitazem, furosemide Hypertension, chronic On coreq Endocrine: Type 2 diabetes mellitus. chronic on Novolog SS, metformin on hold Muscular skeletal Back pain, acute Lumbar spine xray 01/2018 showed vertebral bodies with scoliosis, degenerative changes and minimal wedging. increase in the partial compression of L2. segmental note is made of a questionable metallic density/calcification near the right ischial spine. She is now having acute back pain, will re image. Heme: History of DVT, hypercoagulable state Developed dvt while on coumadin, was on lovenox which caused hematomas and is now on eliquis. hold eliquis / to planned colonoscopy, continue heparin gtt. Vascular: PAD On clopidogrel fen tolerating full liquids monitor electrolytes prophy heparin gtt full code Visit type - Emergency Visit Emergency Visit: Yes ED Registration Date: 11/09/18 Care time: The patient presented to the Emergency Department on the above date and was hospitalized for further evaluation of their emergent condition. - New Patient This patient is new to me today: No - Critical Care Critical Care patient: No - Discharge Referral Referred to [facility] No
[2018-11-17] MEDS ORDERED: POTASSIUM CHLORIDE TABS 20 MEQ TABLET.ER (FP) PO ONE (16:12)
--- NOTE | 2018-11-17 16:45 | PN ---
Progress Note, Physician History of Present Illness: stable no issues except back pain - Current Medication List Current Medications: Active Medications Acetaminophen (Tylenol -) 650 mg PO Q4H PRN PRN Reason: PAIN LEVEL 1 - 3 Last Admin: 11/16/18 10:03 Dose: 650 mg Alprazolam (Xanax -) 1.5 mg PO [facility] Last Admin: 11/16/18 21:33 Dose: 1.5 mg Carvedilol (Coreg -) 25 mg PO BID [facility] Last Admin: 11/17/18 09:10 Dose: 25 mg Clopidogrel Bisulfate (Plavix -) 75 mg PO DAILY [facility] Last Admin: 11/17/18 09:10 Dose: 75 mg Colchicine (Colcrys -) 0.6 mg PO BID [facility] Last Admin: 11/17/18 09:10 Dose: 0.6 mg Diltiazem HCl (Cardizem Cd -) 240 mg PO DAILY [facility] Last Admin: 11/17/18 09:10 Dose: 240 mg Diphenoxylate HCl/Atropine (Lomotil -) 1 combo PO Q8H PRN PRN Reason: DIARRHEA Donepezil HCl (Aricept -) 5 mg PO [facility] Last Admin: 11/16/18 21:32 Dose: 5 mg Dorzolamide HCl (Trusopt 2%) 1 drop OU BID [facility] Last Admin: 11/17/18 09:12 Dose: 1 drop Ferrous Sulfate (Feosol -) 325 mg PO DAILY [facility] Last Admin: 11/17/18 09:11 Dose: 325 mg Furosemide (Lasix -) 40 mg PO DAILY [facility] Last Admin: 11/17/18 09:10 Dose: 40 mg Heparin Sodium (Porcine) (Heparin -) 1,000 unit IVPUSH PRN PRN PRN Reason: Heparin Heparin Sodium (Porcine) (Heparin -) 5,000 unit IVPUSH PRN PRN PRN Reason: Heparin Hydroxychloroquine Sulfate (Plaquenil -) 200 mg PO DAILY [facility] Last Admin: 11/17/18 09:11 Dose: 200 mg Metronidazole (Flagyl 500mg Premixed Ivpb -) 500 mg in 100 mls @ 100 mls/hr IVPB Q8H-IV [facility] Last Admin: 11/17/18 09:11 Dose: 100 mls/hr Aztreonam 1 gm/ Dextrose 50 mls @ 100 mls/hr IVPB Q8H-IV [facility]; Protocol Last Admin: 11/17/18 09:11 Dose: 100 mls/hr Heparin Sodium (Porcine) 25, (000 unit/ Sodium Chloride) 500 mls @ 20 mls/hr IV TITR [facility]; Protocol Last Admin: 11/17/18 13:22 Dose: Not Given Insulin Aspart (Novolog Vial Sliding Scale -) 1 vial SQ ACHS [facility]; Protocol Last Admin: 11/17/18 11:27 Dose: Not Given Isosorbide Mononitrate (Imdur -) 30 mg PO DAILY [facility] Last Admin: 11/17/18 09:11 Dose: 30 mg Latanoprost (Xalatan 0.005% Eye Drops -) 1 drop OU HS [facility] Last Admin: 11/16/18 21:42 Dose: 1 drop Lidocaine (Lidoderm Patch -) 1 patch TP DAILY [facility] Last Admin: 11/17/18 09:12 Dose: 1 patch Miscellaneous (Lidoderm Patch Removal) 1 each MC DAILY@2200 [facility] Last Admin: 11/16/18 21:34 Dose: Not Given Morphine Sulfate (Morphine Sulfate) 2 mg IVPUSH Q4H PRN PRN Reason: PAIN LEVEL 7 - 10 Last Admin: 11/17/18 16:14 Dose: 2 mg Pantoprazole Sodium (Protonix Iv) 40 mg IVPUSH DAILY [facility] Last Admin: 11/17/18 09:10 Dose: 40 mg Rosuvastatin Calcium (Crestor -) 5 mg PO HS [facility] Last Admin: 11/16/18 21:32 Dose: 5 mg Sitagliptin Phosphate (Januvia -) 25 mg PO DAILY@0700 [facility] Last Admin: 11/17/18 06:28 Dose: Not Given Timolol Maleate (Timoptic 0.5%) 1 drop OU BID [facility] Last Admin: 11/17/18 09:12 Dose: 1 drop Valsartan (Diovan -) 80 mg PO BID [facility] Last Admin: 11/17/18 09:11 Dose: 80 mg Vancomycin HCl (Vancomycin Oral Solution) 125 mg PO Q6HPO [facility] Last Admin: 11/17/18 12:46 Dose: 125 mg - Objective Vital Signs: Vital Signs Temperature 98.3 F 11/17/18 14:26 Pulse Rate 60 11/17/18 14:26 Respiratory Rate 18 11/17/18 14:26 Blood Pressure 132/52 L 01/10/19 14:26 O2 Sat by Pulse Oximetry (%) 99 11/17/18 10:00 Constitutional: Yes: Calm, Mild Distress Cardiovascular: Yes: Regular Rate and Rhythm Respiratory: Yes: Regular, CTA Bilaterally Gastrointestinal: Yes: Normal Bowel Sounds, Soft Musculoskeletal: Yes: Back Pain Neurological: Yes: Alert, Oriented Psychiatric: Yes: Alert, Oriented Labs: CBC, BMP 11/17/18 05:55 11/17/18 15:00 INR, PTT INR 2.37 (0.83-1.09) H 11/14/18 06:00 Assessment/Plan This is a 73 year old woman with a history of CVA with right hemiparesis, PAF, HTN, hyperlipdemia, CAD, GERD, colitis, PAD, renal artery stenosis, DVT, type 2 DM, AAA, pacemaker 1. Acute colitis, recurrent 2. Acute kidney injury on stage 3 CKD 3. CAD, history of stent 4. HTN 5. Hyperlipidemia 6. Paroxysmal atrial fibrillation 7. Type 2 diabetes mellitus 8. History of DVT, hypercoagulable state 9. PAD 10. Renal artery stenosis 11. AAA, history of repair 12. Right hemiparesis secondary to old CVA plan 'oral vanco monitor dirrhoea rest as per the team will stop abx except oral vanco
[2018-11-17] MEDS: APIXABAN 5 MG TABLET PO SCH (21:19)
[2018-11-17] MEDS: DONEPEZIL HCL 5 MG TABLET (FP) PO SCH (21:31)
[2018-11-17] MEDS: ROSUVASTATIN CA 5 MG TABLET (FP) PO SCH (21:31)
[2018-11-17] MEDS: LATANOPROST 0.005% OPHTH SOLN 2.5ML BOTTLE OU SCH (21:31)
[2018-11-17] MEDS: ALPRAZolam 0.25 MG TABLET PO SCH (21:31)
[2018-11-17] MEDS: LIDOCAINE PATCH REMOVAL MC SCH (21:32)
[2018-11-18] MEDS ORDERED: PT OWN MED DRAWER 7, Y5N ONE ×4 (01:20→22:31)
[2018-11-18] MEDS: AZTREONAM 1 GM in DEXTROSE 5%-WATER - 50 ML IVPB SCH ×2 (01:23→09:20)
[2018-11-18] MEDS: VANCOMYCIN 250 MG/5 ML ORAL SOLUTION PO SCH ×3 (05:51→18:29)
[2018-11-18] MEDS: MORPHINE SULFATE 2 MG/ML VIAL IVPUSH PRN ×3 (05:52→18:29)
[2018-11-18] MEDS: INSULIN SLIDING SCALE (NOVOLOG) 1 VIAL SQ SCH ×4 (06:07→22:41)
[2018-11-18] MEDS: sitaGLIPtin PHOSPHATE 25 MG TABLET (FP) PO SCH (06:07)
[2018-11-18 06:26] LABS: HEMATOCRIT 38.6 % (32.4-45.2); HEMOGLOBIN 12.5 GM/dL (10.7-15.3); MCH 30.1 pg (25.7-33.7); MCHC 32.4 g/dl (32.0-36.0); MEAN CELL VOLUME 92.6 fl (80-96); MEAN PLT VOLUME 9.1 fl (7.5-11.1); PLATELET COUNT 156 K/MM3 (134-434); RBC 4.16 M/mm3 (3.60-5.2); RDW 14.4 % (11.6-15.6); WHITE BLOOD COUNT 5.7 K/mm3 (4.0-10.0)
--- NOTE | 2018-11-18 08:26 | PN ---
GI Progress Note Subjective: Patient states feeling better. Denies diarrhea during the night. Denies abdominal pain, nausea, vomiting. - Objective Vital Signs: Vital Signs Temperature 98.1 F 11/18/18 06:00 Pulse Rate 61 11/18/18 06:00 Respiratory Rate 18 11/18/18 06:00 Blood Pressure 157/63 11/18/18 06:00 O2 Sat by Pulse Oximetry (%) 96 11/17/18 21:00 Constitutional: Well Nourished, No Distress, Calm Eyes: Yes: Conjunctiva Clear Neck: Yes: Supple Cardiovascular: Yes: Regular Rate and Rhythm Respiratory: Yes: Regular, CTA Bilaterally Gastrointestinal Inspection: Yes: WNL ...Auscultate: Yes: Normoactive Bowel Sounds ...Palpate: Yes: Soft ...Percussion: Yes: Tympanitic Neurological: Yes: Alert Labs: CBC, BMP 11/18/18 06:00 11/17/18 15:00 INR, PTT INR 2.37 (0.83-1.09) H 11/14/18 06:00 Problem List - Problems (1) Colitis Code(s): K52.9 - NONINFECTIVE GASTROENTERITIS AND COLITIS, UNSPECIFIED (2) Ischemic colitis Code(s): K55.9 - VASCULAR DISORDER OF INTESTINE, UNSPECIFIED (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
[2018-11-18] MEDS: COLCHICINE 0.6 MG TABLET (FP) PO SCH ×2 (09:19→22:40)
[2018-11-18] MEDS: HYDROXYCHLOROQUINE SO4 200 MG TABLET (FP) PO SCH (09:19)
[2018-11-18] MEDS: PANTOPRAZOLE SODIUM 40 MG VIAL IVPUSH SCH (09:19)
[2018-11-18] MEDS: VALSARTAN 80 MG TABLET (UD) PO SCH ×2 (09:20→22:39)
[2018-11-18] MEDS: APIXABAN 5 MG TABLET PO SCH ×2 (09:20→22:40)
[2018-11-18] MEDS: CARVEDILOL 25 MG TABLET (FP) PO SCH ×2 (09:20→22:39)
[2018-11-18] MEDS: DORZOLAMIDE 2% HCL OPHTHALMIC SOLUTION 10 ML BOTTLE OU SCH ×2 (09:20→22:41)
[2018-11-18] MEDS: FUROSEMIDE 40 MG TABLET (FP) PO SCH (09:20)
[2018-11-18] MEDS: TIMOLOL 0.5% OPHTHALMIC SOL 5 ML BOTTLE OU SCH ×2 (09:20→22:41)
[2018-11-18] MEDS: CLOPIDOGREL BISULFATE 75 MG TABLET (FP) PO SCH (09:20)
[2018-11-18] MEDS: LIDOCAINE 5% TOPICAL PATCH TP SCH (09:20)
[2018-11-18 09:34] LABS: ALBUMIN 2.6 g/dl (3.4-5.0); ALK PHOS 122 U/L (45-117); ANION GAP 5 MMOL/L (8-16); BILIRUBIN,TOTAL 0.2 mg/dL (0.2-1); BLOOD UREA NITROGEN 8 mg/dL (7-18); CALCIUM 8.7 mg/dL (8.5-10.1); CHLORIDE 113 mmol/L (98-107); CO2 26 mmol/L (21-32); CREATININE 1.2 mg/dL (0.55-1.3); GLUCOSE,RANDOM 95 mg/dL (74-106); MAGNESIUM 1.8 mg/dL (1.8-2.4); POTASSIUM 3.6 mmol/L (3.5-5.1); SGOT/AST 23 U/L (15-37); SGPT/ALT 20 U/L (13-61); SODIUM 144 mmol/L (136-145); TOT PROT 5.2 g/dl (6.4-8.2)
--- NOTE | 2018-11-18 09:36 | PN ---
Progress Note, Physician Chief Complaint: no acute distress TELE: controlled AF, paced - Current Medication List Current Medications: Active Medications Acetaminophen (Tylenol -) 650 mg PO Q4H PRN PRN Reason: PAIN LEVEL 1 - 3 Last Admin: 11/16/18 10:03 Dose: 650 mg Alprazolam (Xanax -) 1.5 mg PO HS [facility] Last Admin: 11/17/18 21:31 Dose: 1.5 mg Apixaban (Eliquis -) 5 mg PO BID [facility] Last Admin: 11/18/18 09:20 Dose: 5 mg Carvedilol (Coreg -) 25 mg PO BID [facility] Last Admin: 11/18/18 09:20 Dose: 25 mg Clopidogrel Bisulfate (Plavix -) 75 mg PO DAILY [facility] Last Admin: 11/18/18 09:20 Dose: 75 mg Colchicine (Colcrys -) 0.6 mg PO BID [facility] Last Admin: 11/18/18 09:19 Dose: 0.6 mg Diltiazem HCl (Cardizem Cd -) 240 mg PO DAILY [facility] Last Admin: 11/18/18 09:19 Dose: 240 mg Diphenoxylate HCl/Atropine (Lomotil -) 1 combo PO Q8H PRN PRN Reason: DIARRHEA Donepezil HCl (Aricept -) 5 mg PO HS [facility] Last Admin: 11/17/18 21:31 Dose: 5 mg Dorzolamide HCl (Trusopt 2%) 1 drop OU BID [facility] Last Admin: 11/18/18 09:20 Dose: 1 drop Ferrous Sulfate (Feosol -) 325 mg PO DAILY [facility] Last Admin: 11/17/18 09:11 Dose: 325 mg Furosemide (Lasix -) 40 mg PO DAILY [facility] Last Admin: 11/18/18 09:20 Dose: 40 mg Hydroxychloroquine Sulfate (Plaquenil -) 200 mg PO DAILY [facility] Last Admin: 11/18/18 09:19 Dose: 200 mg Metronidazole (Flagyl 500mg Premixed Ivpb -) 500 mg in 100 mls @ 100 mls/hr IVPB Q8H-IV [facility] Last Admin: 11/18/18 09:20 Dose: 100 mls/hr Aztreonam 1 gm/ Dextrose 50 mls @ 100 mls/hr IVPB Q8H-IV [facility]; Protocol Last Admin: 11/18/18 09:20 Dose: 100 mls/hr Insulin Aspart (Novolog Vial Sliding Scale -) 1 vial SQ ACHS [facility]; Protocol Last Admin: 11/18/18 06:07 Dose: Not Given Isosorbide Mononitrate (Imdur -) 30 mg PO DAILY [facility] Last Admin: 11/17/18 09:11 Dose: 30 mg Latanoprost (Xalatan 0.005% Eye Drops -) 1 drop OU HS [facility] Last Admin: 11/17/18 21:31 Dose: 1 drop Lidocaine (Lidoderm Patch -) 1 patch TP DAILY [facility] Last Admin: 11/18/18 09:20 Dose: 1 patch Miscellaneous (Lidoderm Patch Removal) 1 each MC DAILY@2200 [facility] Last Admin: 11/17/18 21:32 Dose: 1 each Morphine Sulfate (Morphine Sulfate) 2 mg IVPUSH Q4H PRN PRN Reason: PAIN LEVEL 7 - 10 Last Admin: 11/18/18 05:52 Dose: 2 mg Pantoprazole Sodium (Protonix Iv) 40 mg IVPUSH DAILY [facility] Last Admin: 11/18/18 09:19 Dose: 40 mg Rosuvastatin Calcium (Crestor -) 5 mg PO HS [facility] Last Admin: 11/17/18 21:31 Dose: 5 mg Sitagliptin Phosphate (Januvia -) 25 mg PO DAILY@0700 [facility] Last Admin: 11/18/18 06:07 Dose: Not Given Timolol Maleate (Timoptic 0.5%) 1 drop OU BID [facility] Last Admin: 11/18/18 09:20 Dose: 1 drop Valsartan (Diovan -) 80 mg PO BID [facility] Last Admin: 11/18/18 09:20 Dose: 80 mg Vancomycin HCl (Vancomycin Oral Solution) 125 mg PO Q6HPO [facility] Last Admin: 11/18/18 05:51 Dose: 125 mg - Objective Vital Signs: Vital Signs Temperature 98.1 F 11/18/18 06:00 Pulse Rate 61 11/18/18 06:00 Respiratory Rate 18 11/18/18 06:00 Blood Pressure 157/63 11/18/18 06:00 O2 Sat by Pulse Oximetry (%) 96 11/17/18 21:00 Constitutional: Yes: Calm Cardiovascular: Yes: Pulse Irregular Respiratory: Yes: CTA Bilaterally (no rales or wheezing) Gastrointestinal: Yes: Soft Edema: No Neurological: Yes: Alert Labs: CBC, BMP 11/18/18 06:00 11/18/18 06:00 INR, PTT INR 2.37 (0.83-1.09) H 11/14/18 06:00 Microbiology 11/12/18 01:53 Stool Clostridium difficile (PCR) - Final 11/10/18 18:27 Stool Clostridium difficile Antigen (ROX) - Final 11/10/18 18:27 Stool Clostridium difficile Toxin Assay - Final Laboratory Tests 11/10/18 11/12/18 11/14/18 15:30 05:00 06:00 WBC 4.9 Hgb 13.7 Plt Count 198 INR PTT (Actin FS) Sodium Potassium Creatinine Magnesium Stool Occult Blood Negative Stool Calprotectin Pending 11/14/18 11/15/18 11/15/18 06:00 06:00 06:00 WBC 5.4 Hgb 13.7 Plt Count 194 INR 2.37 H PTT (Actin FS) Sodium 145 Potassium 3.5 Creatinine 1.4 H Magnesium 2.3 Stool Occult Blood Stool Calprotectin 11/16/18 11/17/18 11/17/18 06:00 05:55 05:55 WBC 5.2 Hgb 12.8 Plt Count 165 INR PTT (Actin FS) 105.4 H 71.5 H Sodium Potassium Creatinine Magnesium Stool Occult Blood Stool Calprotectin 11/17/18 11/18/18 11/18/18 05:55 06:00 06:00 WBC 5.7 Hgb 12.5 Plt Count 156 INR PTT (Actin FS) 31.6 Sodium 143 Potassium 3.1 L Creatinine 1.1 Magnesium Stool Occult Blood Stool Calprotectin 11/18/18 06:00 WBC Hgb Plt Count INR PTT (Actin FS) Sodium 144 Potassium 3.6 Creatinine 1.2 Magnesium Stool Occult Blood Stool Calprotectin Assessment/Plan IMP: Nonspecific Colitis Equivocal Lupus Anticoagulant AB, followed by Rheum and Heme at [facility] Prior CVA AF s/p PPM maintained on Eliquis Prior DVT HTN Renal artery stenosis CKD Hx of pericardial effusion- treated Chronic diastolic CHF AAA s/p EVAR T. O CHELSY, moderate LICA stenosis. Vascular Dementia REC: Case d/w Vascular Surgery- while EVAR repair can lead to colitis due to compromise of mesenteric arteries, this usually occurs soon after procedure. In addition, the current impression is that this does not represent an ischemic colitis based on distribution. 1. Eliquis resumed as colonoscopy not planned this admission. See GI notes. 2. Continue home BP/CHF regimen: Carvedilol, ARB, Lasix. 3. Follow renal fxn closely while PO intake may be reduced, replete lytes 4. Continue Plavix (if OK w/ GI)- remote hx PCI and prior CVA; Crestor.
[2018-11-18] MEDS: ISOSORBIDE MONONITRATE 30 MG TAB.SR.24H (FP) PO SCH (10:54)
[2018-11-18] MEDS: FERROUS SO4 325 MG TABLET (FP) PO SCH (10:54)
[2018-11-18 12:25] LABS: ACANTHOCYTES 1+; ANISOCYTOSIS 0; MACROCYTOSIS 0; OVALOCYTE 1+; PLATELET ESTIMATE DECREASED; TEAR DROP CELLS 1+
--- NOTE | 2018-11-18 14:06 | PN ---
Progress Note, Physician History of Present Illness: stable no issues - Current Medication List Current Medications: Active Medications Acetaminophen (Tylenol -) 650 mg PO Q4H PRN PRN Reason: PAIN LEVEL 1 - 3 Last Admin: 11/16/18 10:03 Dose: 650 mg Alprazolam (Xanax -) 1.5 mg PO HS [facility] Last Admin: 11/17/18 21:31 Dose: 1.5 mg Apixaban (Eliquis -) 5 mg PO BID [facility] Last Admin: 11/18/18 09:20 Dose: 5 mg Carvedilol (Coreg -) 25 mg PO BID [facility] Last Admin: 11/18/18 09:20 Dose: 25 mg Clopidogrel Bisulfate (Plavix -) 75 mg PO DAILY [facility] Last Admin: 11/18/18 09:20 Dose: 75 mg Colchicine (Colcrys -) 0.6 mg PO BID [facility] Last Admin: 11/18/18 09:19 Dose: 0.6 mg Diltiazem HCl (Cardizem Cd -) 240 mg PO DAILY [facility] Last Admin: 11/18/18 09:19 Dose: 240 mg Diphenoxylate HCl/Atropine (Lomotil -) 1 combo PO Q8H PRN PRN Reason: DIARRHEA Donepezil HCl (Aricept -) 5 mg PO [facility] Last Admin: 11/17/18 21:31 Dose: 5 mg Dorzolamide HCl (Trusopt 2%) 1 drop OU BID [facility] Last Admin: 11/18/18 09:20 Dose: 1 drop Ferrous Sulfate (Feosol -) 325 mg PO DAILY [facility] Last Admin: 11/18/18 10:54 Dose: 325 mg Furosemide (Lasix -) 40 mg PO DAILY [facility] Last Admin: 11/18/18 09:20 Dose: 40 mg Hydroxychloroquine Sulfate (Plaquenil -) 200 mg PO DAILY [facility] Last Admin: 11/18/18 09:19 Dose: 200 mg Metronidazole (Flagyl 500mg Premixed Ivpb -) 500 mg in 100 mls @ 100 mls/hr IVPB Q8H-IV [facility] Last Admin: 11/18/18 09:20 Dose: 100 mls/hr Insulin Aspart (Novolog Vial Sliding Scale -) 1 vial SQ ACHS [facility]; Protocol Last Admin: 11/18/18 12:58 Dose: 4 units Isosorbide Mononitrate (Imdur -) 30 mg PO DAILY [facility] Last Admin: 11/18/18 10:54 Dose: 30 mg Latanoprost (Xalatan 0.005% Eye Drops -) 1 drop OU HS [facility] Last Admin: 11/17/18 21:31 Dose: 1 drop Lidocaine (Lidoderm Patch -) 1 patch TP DAILY [facility] Last Admin: 11/18/18 09:20 Dose: 1 patch Miscellaneous (Lidoderm Patch Removal) 1 each MC DAILY@2200 [facility] Last Admin: 11/17/18 21:32 Dose: 1 each Morphine Sulfate (Morphine Sulfate) 2 mg IVPUSH Q4H PRN PRN Reason: PAIN LEVEL 7 - 10 Last Admin: 11/18/18 11:46 Dose: 2 mg Pantoprazole Sodium (Protonix Iv) 40 mg IVPUSH DAILY [facility] Last Admin: 11/18/18 09:19 Dose: 40 mg Rosuvastatin Calcium (Crestor -) 5 mg PO HS [facility] Last Admin: 11/17/18 21:31 Dose: 5 mg Sitagliptin Phosphate (Januvia -) 25 mg PO DAILY@0700 [facility] Last Admin: 11/18/18 06:07 Dose: Not Given Timolol Maleate (Timoptic 0.5%) 1 drop OU BID [facility] Last Admin: 11/18/18 09:20 Dose: 1 drop Valsartan (Diovan -) 80 mg PO BID [facility] Last Admin: 11/18/18 09:20 Dose: 80 mg Vancomycin HCl (Vancomycin Oral Solution) 125 mg PO Q6HPO [facility] Last Admin: 11/18/18 12:58 Dose: 125 mg - Objective Vital Signs: Vital Signs Temperature 98.1 F 11/18/18 06:00 Pulse Rate 61 11/18/18 06:00 Respiratory Rate 18 11/18/18 06:00 Blood Pressure 157/63 11/18/18 06:00 O2 Sat by Pulse Oximetry (%) 96 11/17/18 21:00 Constitutional: Yes: No Distress, Calm Cardiovascular: Yes: Pulse Irregular (controlled) Respiratory: Yes: Regular, CTA Bilaterally Gastrointestinal: Yes: Normal Bowel Sounds, Soft Musculoskeletal: Yes: Back Pain Extremities: Yes: WNL Neurological: Yes: Alert, Oriented Psychiatric: Yes: Alert, Oriented Labs: CBC, BMP 11/18/18 06:00 11/18/18 06:00 INR, PTT INR 2.37 (0.83-1.09) H 11/14/18 06:00 Assessment/Plan This is a 73 year old woman with a history of CVA with right hemiparesis, PAF, HTN, hyperlipdemia, CAD, GERD, colitis, PAD, renal artery stenosis, DVT, type 2 DM, AAA, pacemaker 1. Acute colitis, recurrent 2. Acute kidney injury on stage 3 CKD 3. CAD, history of stent 4. HTN 5. Hyperlipidemia 6. Paroxysmal atrial fibrillation 7. Type 2 diabetes mellitus 8. History of DVT, hypercoagulable state 9. PAD 10. Renal artery stenosis 11. AAA, history of repair 12. Right hemiparesis secondary to old CVA plan 'oral vanco for a total of 14 days monitor dirrhoea rest as per the team off of all abx now
--- NOTE | 2018-11-18 15:47 | PN ---
Physical Exam: SUBJECTIVE: Patient seen and examined at the bedside. patient continues to have lower back pain. daughter wants to take her home and refusing rehab. patient also refusing rehab. Family wants rehab at home. SW aware. OBJECTIVE: worsening L2 compression fx per lumbar xray, neuro consulted. Vital Signs Period Temp Pulse Resp BP Sys/[place] Pulse Ox Last 24 Hr 97.8 F-99.3 F 60-61 18-18 131-157/57-63 96-96 GENERAL: The patient is awake, alert, and fully oriented, still having back pain today HEAD: Normal with no signs of trauma. EYES: PERRL, extraocular movements intact, sclera anicteric, conjunctiva clear. No ptosis. ENT: Ears normal, nares patent, oropharynx clear without exudates, moist mucous membranes. NECK: Trachea midline, full range of motion, supple. LUNGS: Breath sounds equal, clear to auscultation bilaterally HEART: Regular rate and rhythm ABDOMEN: Soft, nontender, nondistended, normoactive bowel sounds, bruising on lower abdomen - tolerating diet EXTREMITIES: 2+ pulses, warm, well-perfused, no edema. NEUROLOGICAL: Normal speech, gait not observed. PSYCH: Normal mood, normal affect. SKIN: Warm, dry, normal turgor, no rashes or lesions noted Laboratory Results - last 24 hr 11/17/18 11/17/18 11/17/18 15:00 16:00 21:29 WBC RBC Hgb Hct MCV MCH MCHC RDW Plt Count MPV Neutrophils % (Manual) Band Neutrophils % Lymphocytes % (Manual) Monocytes % (Manual) Eosinophils % (Manual) Basophils % (Manual) Myelocytes % (Man) Promyelocytes % (Man) Blast Cells % (Manual) Nucleated RBC % Metamyelocytes Hypochromia Platelet Estimate Platelet Comment Polychromasia Poikilocytosis Anisocytosis Microcytosis Macrocytosis Spherocytes Tear Drop Cells Ovalocytes [place] Cells Acanthocytes (Spur) PTT (Actin FS) Sodium Potassium 3.1 L Chloride Carbon Dioxide Anion Gap BUN Creatinine Creat Clearance w eGFR POC Glucometer 169 139 Random Glucose Calcium Magnesium Total Bilirubin AST ALT Alkaline Phosphatase Total Protein Albumin 11/18/18 11/18/18 11/18/18 05:57 06:00 06:00 WBC 5.7 RBC 4.16 Hgb 12.5 Hct 38.6 MCV 92.6 MCH 30.1 MCHC 32.4 RDW 14.4 Plt Count 156 MPV 9.1 Neutrophils % (Manual) 44.8 Band Neutrophils % 0.0 Lymphocytes % (Manual) 21.9 D Monocytes % (Manual) 7 D Eosinophils % (Manual) 2.1 D Basophils % (Manual) 1.0 Myelocytes % (Man) 0 D Promyelocytes % (Man) 0 Blast Cells % (Manual) 0 Nucleated RBC % 0 Metamyelocytes 0 Hypochromia 0 Platelet Estimate Decreased Platelet Comment Present Polychromasia 0 Poikilocytosis 1+ Anisocytosis 0 Microcytosis 0 Macrocytosis 0 Spherocytes 1+ Tear Drop Cells 1+ Ovalocytes 1+ [place] Cells 1+ Acanthocytes (Spur) 1+ PTT (Actin FS) 31.6 Sodium Potassium Chloride Carbon Dioxide Anion Gap BUN Creatinine Creat Clearance w eGFR POC Glucometer 99 Random Glucose Calcium Magnesium Total Bilirubin AST ALT Alkaline Phosphatase Total Protein Albumin 11/18/18 11/18/18 06:00 10:46 WBC RBC Hgb Hct MCV MCH MCHC RDW Plt Count MPV Neutrophils % (Manual) Band Neutrophils % Lymphocytes % (Manual) Monocytes % (Manual) Eosinophils % (Manual) Basophils % (Manual) Myelocytes % (Man) Promyelocytes % (Man) Blast Cells % (Manual) Nucleated RBC % Metamyelocytes Hypochromia Platelet Estimate Platelet Comment Polychromasia Poikilocytosis Anisocytosis Microcytosis Macrocytosis Spherocytes Tear Drop Cells Ovalocytes [place] Cells Acanthocytes (Spur) PTT (Actin FS) Sodium 144 Potassium 3.6 Chloride 113 H Carbon Dioxide 26 Anion Gap 5 L BUN 8 Creatinine 1.2 Creat Clearance w eGFR 43.91 POC Glucometer 232 Random Glucose 95 Calcium 8.7 Magnesium 1.8 Total Bilirubin 0.2 AST 23 ALT 20 Alkaline Phosphatase 122 H Total Protein 5.2 L Albumin 2.6 L Active Medications Generic Name Dose Route Start Last Admin Trade Name Freq PRN Reason Stop Dose Admin Acetaminophen 650 mg 11/10/18 15:29 11/16/18 10:03 Tylenol - PO 650 mg Q4H PRN Administration PAIN LEVEL 1 - 3 Alprazolam 1.5 mg 11/09/18 22:00 11/17/18 21:31 Xanax - PO 1.5 mg HS [facility]ON[facility] Administration Apixaban 5 mg 11/17/18 22:00 11/18/18 09:20 Eliquis - PO 5 mg BID [facility] Administration Carvedilol 25 mg 11/09/18 22:00 11/18/18 09:20 Coreg - PO 25 mg BID [facility] Administration Clopidogrel Bisulfate 75 mg 11/10/18 10:00 11/18/18 09:20 Plavix - PO 75 mg DAILY [facility] Administration Colchicine 0.6 mg 11/09/18 22:00 11/18/18 09:19 Colcrys - PO 0.6 mg BID [facility] Administration Diltiazem HCl 240 mg 11/10/18 10:00 11/18/18 09:19 Cardizem Cd - PO 240 mg DAILY [facility] Administration Diphenoxylate HCl/Atropine 1 combo 11/16/18 19:53 Lomotil - PO Q8H PRN DIARRHEA Donepezil HCl 5 mg 11/10/18 22:00 11/17/18 21:31 Aricept - PO 5 mg HS [facility] Administration Dorzolamide HCl 1 drop 11/09/18 22:00 11/18/18 09:20 Trusopt 2% OU 1 drop BID [facility] Administration Ferrous Sulfate 325 mg 11/10/18 10:00 11/18/18 10:54 Feosol - PO 325 mg DAILY [facility] Administration Furosemide 40 mg 11/10/18 10:00 11/18/18 09:20 Lasix - PO 40 mg DAILY [facility] Administration Hydroxychloroquine Sulfate 200 mg 11/10/18 10:00 11/18/18 09:19 Plaquenil - PO 200 mg DAILY [facility] Administration Insulin Aspart 1 vial 11/09/18 22:00 11/18/18 12:58 Novolog Vial Sliding Scale - SQ 4 units ACHS [facility] Administration Protocol Isosorbide Mononitrate 30 mg 11/17/18 10:00 11/18/18 10:54 Imdur - PO 30 mg DAILY [facility] Administration Latanoprost 1 drop 11/09/18 22:00 11/17/18 21:31 Xalatan 0.005% Eye Drops - OU 1 drop HS [facility] Administration Lidocaine 1 patch 11/16/18 17:45 11/18/18 09:20 Lidoderm Patch - TP 1 patch DAILY [facility] Administration Miscellaneous 1 each 11/16/18 22:00 11/17/18 21:32 Lidoderm Patch Removal MC 1 each DAILY@2200 [facility] Administration Morphine Sulfate 2 mg 11/13/18 18:38 11/18/18 11:46 Morphine Sulfate IVPUSH 2 mg Q4H PRN Administration PAIN LEVEL 7 - 10 Pantoprazole Sodium 40 mg 11/13/18 14:00 11/18/18 09:19 Protonix Iv IVPUSH 40 mg DAILY [facility] Administration Rosuvastatin Calcium 5 mg 11/09/18 22:00 11/17/18 21:31 Crestor - PO 5 mg HS [facility] Administration Sitagliptin Phosphate 25 mg 11/10/18 07:00 11/18/18 06:07 Januvia - PO Not Given DAILY@0700 [facility] Timolol Maleate 1 drop 11/09/18 22:00 11/18/18 09:20 Timoptic 0.5% OU 1 drop BID [facility] Administration Valsartan 80 mg 11/12/18 17:45 11/18/18 09:20 Diovan - PO 80 mg BID [facility] Administration Vancomycin HCl 125 mg 11/10/18 18:00 11/18/18 12:58 Vancomycin Oral Solution PO 125 mg Q6HPO [facility] Administration ASSESSMENT/PLAN: ASSESSMENT/PLAN: Patient is a 73 year old female with a significant past medical history of HTN, HLD, CHF, afib on eliquis, pericarditis, AAA, PPM, CVA w/ R sided deficits, uti and colitis. She was admitted on 11/09/18 for NB, watery diarrhea w/ n/v and abd pain. Patient also has hx of MRSA UTI. GI: Acute colitis. resolved Being followed by GI. On low fiber diet, which she is tolerating denies n/v/d. Eliquis restarted as no procedures are currently planned. Cdiff: on vanco po q6 (will need vanco x a total of 14 days-started on 11/10/18) ID following. Contact precautions Renal: VILLA on CKD stage 4, chronic Hypokalemia, resolved Hypomagnessemia, resolved Cardiology Paroxysmal Atrial fibrillation On Eliquis bid, coreq, dilitazem, furosemide Hypertension, chronic On coreq Endocrine: Type 2 diabetes mellitus. chronic on Novolog SS, metformin on hold Muscular skeletal Back pain, acute Lumbar spine xray 01/2018 showed vertebral bodies with scoliosis, degenerative changes and minimal wedging. increase in the partial compression of L2. segmental note is made of a questionable metallic density/calcification near the right ischial spine. Lumbar spine xray 11/18/18 shows worsening of L2 compression fx. neuro/neurosurgery consulted for further recommendations For now, will manage her pain Heme: History of DVT, hypercoagulable state Developed dvt while on coumadin, was on lovenox which caused hematomas and is now on eliquis. no planned colonoscopy, re start eliquis Vascular: PAD On clopidogrel fen tolerating full liquids monitor electrolytes prophy eliquis full code Visit type - Emergency Visit Emergency Visit: Yes ED Registration Date: 11/09/18 Care time: The patient presented to the Emergency Department on the above date and was hospitalized for further evaluation of their emergent condition. - New Patient This patient is new to me today: No - Critical Care Critical Care patient: No - Discharge Referral Referred to [facility] No
--- NOTE | 2018-11-18 18:03 | PN ---
Progress Note (short form) - Note Progress Note: NEUROSURGERY CONSULT DICTATED Chart reviewed Pt examined CT abd and Ls spine x-rays reviewed H/o HTN, HLD, CHF, afib on eliquis, pericarditis, AAA s/p aorto bifem graft, PPM , CVA w/ R UE deficits, uti, colitis admitted for watery diarrhea w/ n/v and abd pain 1 week. tx w/ vanco/levaquin. Was also tx for MRSA UTI while admitted. c/o increased LBP since admission PE: AF, VSS General- unremarkable, lying down in bed; Back- pointing to low back area of pain in center near L5-S1 CN- intact; Motor- R UE 1-2, B LE and L UE 4+; Sensation- grossly intact; DTR- hyporeflexia CT Abd (focus on lumbar spine): L2 compression fx with reduction of vertebral body height, mild L5 sup endplate depression; no apparent canal compromise Ls spine x-rays- osteopenia, L2 compression deformity, mild L5 superior depression Chronic L2 compression fx (10 months) Possible L5 sup endplate compression fx Lumbar corsette for support Ls spine x-rays in 2 weeks to assess L5 stature and alignment Presumptive tx for osteopenia/osteoporosis If persistent pain could consider vertebroplasty, though hardening L5 could possibly risk weakening adjacent segment D/w pt and daughter
[2018-11-18] MEDS: DONEPEZIL HCL 5 MG TABLET (FP) PO SCH (22:40)
[2018-11-18] MEDS: LIDOCAINE PATCH REMOVAL MC SCH (22:40)
[2018-11-18] MEDS: ROSUVASTATIN CA 5 MG TABLET (FP) PO SCH (22:41)
[2018-11-18] MEDS: LATANOPROST 0.005% OPHTH SOLN 2.5ML BOTTLE OU SCH (22:42)
[2018-11-18] MEDS: ALPRAZolam 0.25 MG TABLET PO SCH (22:44)
[2018-11-19] MEDS: VANCOMYCIN 250 MG/5 ML ORAL SOLUTION PO SCH ×5 (00:40→23:04)
[2018-11-19] MEDS: sitaGLIPtin PHOSPHATE 25 MG TABLET (FP) PO SCH (06:03)
[2018-11-19] MEDS: INSULIN SLIDING SCALE (NOVOLOG) 1 VIAL SQ SCH ×5 (06:03→23:03)
[2018-11-19 08:00] LABS: HEMATOCRIT 37.8 % (32.4-45.2); HEMOGLOBIN 12.1 GM/dL (10.7-15.3); MCH 29.6 pg (25.7-33.7); MCHC 31.9 g/dl (32.0-36.0); MEAN CELL VOLUME 92.7 fl (80-96); PLATELET COUNT 167 K/MM3 (134-434); RBC 4.08 M/mm3 (3.60-5.2); RDW 14.3 % (11.6-15.6); WHITE BLOOD COUNT 5.5 K/mm3 (4.0-10.0)
--- NOTE | 2018-11-19 08:18 | CONS ---
DATE OF CONSULTATION: DATE OF DICTATION: 11/18/2018 REQUESTING PROVIDER: Anitha Solano NP TREE PRUNER: Kirt Maria MD, Neurosurgery. CHIEF COMPLAINT: Increasing lower back pain. HISTORY OF PRESENT ILLNESS: The patient is a 73-year-old right-handed female with history of hypertension, coronary artery disease, congestive heart failure, atrial fibrillation on Eliquis, pericarditis, AAA status post aortobifemoral bypass endovascular graft, peripheral pacemaker, stroke with right upper extremity paresis, urinary tract infection and colitis, who was admitted for watery diarrhea, nausea, vomiting, and abdominal pain of 1 weeks duration. She has previously been treated for similar symptoms with IV antibiotics. She had sustained a fall at [facility] about 10 months ago while landing on her lower back and fracturing the L2 vertebrae. She was informed at the time that no intervention was needed. She did not sustain any further falls since admission by report. Her lower back pain has been worse since, however. She denies any current fevers or chills. She has no sciatica. She denies any leg weakness or numbness. Her daughter was at bedside during the examination. PAST MEDICAL HISTORY: Is significant for hypertension, coronary artery disease, atrial fibrillation, anticoagulation, congestive heart failure, pericarditis, abdominal aortic aneurysm status post endovascular repair, peripheral cardiac pacemaker, CVA with right upper extremity deficit, there was residual right upper extremity deficit, urinary tract infection, and colitis. MEDICATIONS: Current medications include Lidoderm patch, Tylenol, Diovan, vancomycin, Eliquis, Lomotil, colchicine, Plaquenil, Lidoderm, Xanax, Coreg, Timoptic, Cardizem CD, Januvia, Crestor, insulin, ferrous sulfate, Lasix, isosorbide mononitrate, morphine, Aricept, Plavix, Protonix, and Xalatan eye drops. ALLERGIES: IV IODINE, TORADOL, ASPIRIN, PENICILLIN, DICLOFENAC, SHELLFISH, and she is LACTOSE INTOLERANT. SOCIAL HISTORY: She does not smoke or drink. She lives at home, but had been in and out of alf for the past few months. REVIEW OF SYSTEMS: Otherwise negative for major constitutional, head and neck, cardiovascular, pulmonary, gastrointestinal, genitourinary, endocrinologic, neurologic, or psychologic problems except for the above. PHYSICAL EXAMINATION: Vital signs: Temperature is 98, blood pressure is 146/62 with a pulse rate of 60, O2 saturation 96% on room air. HEENT: Examination shows her to be normocephalic, atraumatic, anicteric. Neck: Supple with no carotid bruits. Coronary: Examination demonstrates irregular rhythm. Lungs: Clear. Abdomen: Benign. She is mildly obese. Extremities: Examination shows no signs of DVT. She has trace ankle edema and knee edema. Neurologic: She is Italian-speaking. She is conversant. She understands and follows commands. Cranial nerve examination is intact 2 through 12. Motor examination shows at least 4+/5 strength in upper and lower extremities except right upper extremity which shows 1-2/5 strength. She is fairly limb in upper extremities. Sensory examination intact to light touch. Deep tendon reflexes are hyporeflexive throughout. Right big toe is upgoing. Gait was not tested for safety reasons. Examination of the lower back shows tenderness in the lumbosacral junction near the midline bilaterally. She has a negative straight leg raise at 45 degrees bilaterally. LABORATORY EXAMINATION: Shows the white blood cell count to be 5.7, hemoglobin 12.5. platelet count 156,000. PTT previously was 116, but is now 31.6. Serum sodium 144, potassium is 3.6, BUN is 8, creatinine is 1.2, albumin is 2.6, and calcium is 8.7. CT scan of the lumbar spine performed on November 09 of this year with focus on the lumbar spine showed an L2 compression fracture with approximately 35% reduction in vertebral column height. There is also slight superior L5 end-plate depression. There is also diffuse colitis noted, mostly significantly around the transverse colon. An x- ray of the lumbar spine from yesterday demonstrated L2 vertebral compression fracture and mild L5 superior end-plate fracture. There is osteopenia throughout. IMPRESSION: 1. Chronic L2 compression fracture and possible mild acute L5 superior end- plate fracture. 2. Rule out osteoporosis. 3. Transverse colitis. 4. Coronary artery disease/congestive heart failure/atrial fibrillation/ peripheral pacemaker. 5. Hypoglycemia. 6. History of left hemispheric cerebrovascular accident with residual right hemiparesis. RECOMMENDATIONS: The patient presents with increasing back pain since this admission. She had a previous L2 compression fracture from a mechanical fall 10 months earlier. She has some mild lower back pain since. However, since this hospitalization and possibly because of straining and blind mechanical movement , she is experiencing increasing lower back pain. She also appears to have a small L5 superior end-plate fracture, which could be exacerbating her pain. She likely has osteoporosis and should be treated medically for such. I will leave that for professional discretion of medical team. She is already on Lidoderm patches for topical pain control. Lumbar corset could be considered for lumbar partial support. A followup x-ray of the lumbar spine should be done in 2 weeks via L5 vertebral stature. If she has persistent intractable pain, consultation with interventional radiology could be obtained for possible vertebroplasty at the L5 vertebral segment. Unfortunately, doing so could potentially weaken the adjacent segments causing adjacent level fracture subsequently. The pros and cons of treatment approach was discussed with patient and her daughter at bedside. All questions were answered. The patient will be following up with her primary care physician, Dr. Sony Johnson. KIRT MARIA M.D. [id number] MTDD
--- NOTE | 2018-11-19 09:00 | PN ---
Progress Note, Physician - Current Medication List Current Medications: Active Medications Acetaminophen (Tylenol -) 650 mg PO Q4H PRN PRN Reason: PAIN LEVEL 1 - 3 Last Admin: 11/16/18 10:03 Dose: 650 mg Alprazolam (Xanax -) 1.5 mg PO HS [facility] Last Admin: 11/18/18 22:44 Dose: Not Given Apixaban (Eliquis -) 5 mg PO BID [facility] Last Admin: 11/18/18 22:40 Dose: 5 mg Carvedilol (Coreg -) 25 mg PO BID [facility] Last Admin: 11/18/18 22:39 Dose: 25 mg Clopidogrel Bisulfate (Plavix -) 75 mg PO DAILY [facility] Last Admin: 11/18/18 09:20 Dose: 75 mg Colchicine (Colcrys -) 0.6 mg PO BID [facility] Last Admin: 11/18/18 22:40 Dose: 0.6 mg Diltiazem HCl (Cardizem Cd -) 240 mg PO DAILY [facility] Last Admin: 11/18/18 09:19 Dose: 240 mg Diphenoxylate HCl/Atropine (Lomotil -) 1 combo PO Q8H PRN PRN Reason: DIARRHEA Donepezil HCl (Aricept -) 5 mg PO [facility] Last Admin: 11/18/18 22:40 Dose: 5 mg Dorzolamide HCl (Trusopt 2%) 1 drop OU BID [facility] Last Admin: 11/18/18 22:41 Dose: 1 drop Ferrous Sulfate (Feosol -) 325 mg PO DAILY [facility] Last Admin: 11/18/18 10:54 Dose: 325 mg Furosemide (Lasix -) 40 mg PO DAILY [facility] Last Admin: 11/18/18 09:20 Dose: 40 mg Hydroxychloroquine Sulfate (Plaquenil -) 200 mg PO DAILY [facility] Last Admin: 11/18/18 09:19 Dose: 200 mg Insulin Aspart (Novolog Vial Sliding Scale -) 1 vial SQ [facility]; Protocol Last Admin: 11/19/18 06:03 Dose: Not Given Isosorbide Mononitrate (Imdur -) 30 mg PO DAILY [facility] Last Admin: 11/18/18 10:54 Dose: 30 mg Latanoprost (Xalatan 0.005% Eye Drops -) 1 drop OU [facility] Last Admin: 11/18/18 22:42 Dose: 1 drop Lidocaine (Lidoderm Patch -) 1 patch TP DAILY [facility] Last Admin: 11/18/18 09:20 Dose: 1 patch Miscellaneous (Lidoderm Patch Removal) 1 each MC DAILY@2200 [facility] Last Admin: 11/18/18 22:40 Dose: 1 each Morphine Sulfate (Morphine Sulfate) 2 mg IVPUSH Q4H PRN PRN Reason: PAIN LEVEL 7 - 10 Last Admin: 11/18/18 18:29 Dose: 2 mg Pantoprazole Sodium (Protonix Iv) 40 mg IVPUSH DAILY [facility] Last Admin: 11/18/18 09:19 Dose: 40 mg Rosuvastatin Calcium (Crestor -) 5 mg PO HS [facility] Last Admin: 11/18/18 22:41 Dose: 5 mg Sitagliptin Phosphate (Januvia -) 25 mg PO DAILY@0700 [facility] Last Admin: 11/19/18 06:03 Dose: Not Given Timolol Maleate (Timoptic 0.5%) 1 drop OU BID [facility] Last Admin: 11/18/18 22:41 Dose: 1 drop Valsartan (Diovan -) 80 mg PO BID [facility] Last Admin: 11/18/18 22:39 Dose: 80 mg Vancomycin HCl (Vancomycin Oral Solution) 125 mg PO Q6HPO [facility] Last Admin: 11/19/18 05:45 Dose: 125 mg - Objective Vital Signs: Vital Signs Temperature 98.5 F 11/19/18 05:33 Pulse Rate 60 11/19/18 05:33 Respiratory Rate 20 11/19/18 05:33 Blood Pressure 160/78 11/19/18 05:33 O2 Sat by Pulse Oximetry (%) 95 11/18/18 21:00 Eyes: Yes: WNL, Conjunctiva Clear, EOM Intact HENT: Yes: WNL, Atraumatic, Normocephalic Neck: Yes: WNL, Supple, Trachea Midline Cardiovascular: Yes: WNL, Regular Rate and Rhythm Respiratory: Yes: WNL, Regular, CTA Bilaterally Gastrointestinal: Yes: WNL, Normal Bowel Sounds Genitourinary: Yes: WNL Musculoskeletal: Yes: WNL Extremities: Yes: WNL Edema: No Integumentary: Yes: WNL Neurological: Yes: WNL, Alert, Oriented ...Motor Strength: WNL Psychiatric: Yes: WNL Labs: CBC, BMP 11/19/18 06:30 11/18/18 06:00 INR, PTT INR 2.37 (0.83-1.09) H 11/14/18 06:00 Assessment/Plan IMP: Nonspecific Colitis Equivocal Lupus Anticoagulant AB, followed by Rheum and Brianna at [facility] Prior CVA AF s/p PPM maintained on Eliquis Prior DVT HTN Renal artery stenosis CKD Hx of pericardial effusion- treated Chronic diastolic CHF AAA s/p EVAR T. O CHELSY, moderate LICA stenosis. Vascular Dementia REC: Case d/w Vascular Surgery- while EVAR repair can lead to colitis due to compromise of mesenteric arteries, this usually occurs soon after procedure. In addition, the current impression is that this does not represent an ischemic colitis based on distribution. 1. Eliquis resumed as colonoscopy not planned this admission. See GI notes. 2. Continue home BP/CHF regimen: Carvedilol, ARB, Lasix. 3. Follow renal fxn closely while PO intake may be reduced, replete lytes 4. Continue Plavix (if OK w/ GI)- remote hx PCI and prior CVA; Crestor.
[2018-11-19 09:28] LABS: ALBUMIN 2.6 g/dl (3.4-5.0); ALK PHOS 125 U/L (45-117); ANION GAP 7 MMOL/L (8-16); BILIRUBIN,TOTAL 0.3 mg/dL (0.2-1); BLOOD UREA NITROGEN 8 mg/dL (7-18); CALCIUM 8.9 mg/dL (8.5-10.1); CHLORIDE 113 mmol/L (98-107); CO2 25 mmol/L (21-32); CREATININE 1.1 mg/dL (0.55-1.3); GLUCOSE,RANDOM 113 mg/dL (74-106); MAGNESIUM 1.8 mg/dL (1.8-2.4); POTASSIUM 3.4 mmol/L (3.5-5.1); SGOT/AST 39 U/L (15-37); SGPT/ALT 25 U/L (13-61); SODIUM 146 mmol/L (136-145); TOT PROT 5.4 g/dl (6.4-8.2)
[2018-11-19] MEDS ORDERED: PT OWN MED DRAWER 7, Y5N ONE ×3 (09:29→23:07)
[2018-11-19] MEDS: LIDOCAINE 5% TOPICAL PATCH TP SCH (09:38)
[2018-11-19] MEDS: FERROUS SO4 325 MG TABLET (FP) PO SCH (09:39)
[2018-11-19] MEDS: CLOPIDOGREL BISULFATE 75 MG TABLET (FP) PO SCH (09:39)
[2018-11-19] MEDS: APIXABAN 5 MG TABLET PO SCH ×2 (09:39→23:02)
[2018-11-19] MEDS: HYDROXYCHLOROQUINE SO4 200 MG TABLET (FP) PO SCH (09:39)
[2018-11-19] MEDS: PANTOPRAZOLE SODIUM 40 MG VIAL IVPUSH SCH (09:39)
[2018-11-19] MEDS: FUROSEMIDE 40 MG TABLET (FP) PO SCH (09:39)
[2018-11-19] MEDS: VALSARTAN 80 MG TABLET (UD) PO SCH ×2 (09:39→23:07)
[2018-11-19] MEDS: ISOSORBIDE MONONITRATE 30 MG TAB.SR.24H (FP) PO SCH (09:39)
[2018-11-19] MEDS: CARVEDILOL 25 MG TABLET (FP) PO SCH ×2 (09:39→23:02)
[2018-11-19] MEDS: COLCHICINE 0.6 MG TABLET (FP) PO SCH ×2 (09:39→23:01)
[2018-11-19] MEDS: MORPHINE SULFATE 2 MG/ML VIAL IVPUSH PRN (09:40)
[2018-11-19] MEDS ORDERED: ONDANSETRON 4 MG/2 ML VIAL IVPUSH ONE ×2 (10:23→13:15)
[2018-11-19] MEDS: TIMOLOL 0.5% OPHTHALMIC SOL 5 ML BOTTLE OU SCH ×2 (10:36→23:02)
[2018-11-19] MEDS: DORZOLAMIDE 2% HCL OPHTHALMIC SOLUTION 10 ML BOTTLE OU SCH ×2 (10:36→23:08)
--- NOTE | 2018-11-19 10:44 | CONSULT ---
Consult - text type - Consultation Consultation Note: Neurology History of Present Illness 73 yo F, h/o HTN, HLD, CHF, afib on eliquis, pericarditis, AAA, PPM, CVA w/ R sided deficits, uti, colitis. Presented to ER with complaints of watery diarrhea , nausea vomiting and abdominal pain that started several days prior to admission.. No BRBPR, melena, f/c. Pt s/p admission for similar symptoms > 6 months ago w/ pancolitis on CT. Cdiff and other stool studies negative per records. Pt had received vanco/levaquin in ER and discharged to [place] with doxycycline 6 months ago. Consulted for lumbar spine fracture as noted. NSGY note reviewed and chronic L2 compression fracture, also consider involvement of L5. Mentions possible vertebroplasty, family at bedside and discussed, for now conservative care may be best. Though defer to NSGY regarding intervention, family is considering all options. Past History - Past Medical History Allergies/Adverse Reactions: Allergies Allergy/AdvReac Type Severity Reaction Status Date / Time aspirin Allergy Severe Verified 11/09/18 11:56 Penicillins Allergy Severe Verified 11/09/18 11:56 diclofenac Allergy Verified 11/09/18 11:56 shellfish derived Allergy Verified 11/09/18 11:56 lactose AdvReac Verified 11/09/18 11:56 peanut Allergy Unknown Rash Uncoded 11/09/18 11:56 iv contrast Allergy Uncoded 11/09/18 11:56 Home Medications: Ambulatory Orders Alprazolam 1.5 mg PO HS 11/09/18 Apixaban [Eliquis] 2.5 mg PO BID 11/09/18 Carvedilol [Coreg -] 25 mg PO BID 11/09/18 Clopidogrel Bisulfate [Plavix] 75 mg PO DAILY 11/09/18 Colchicine [Colcrys -] 0.6 mg PO BID 11/09/18 Diltiazem HCl [Diltiazem 24Hr Cd] 240 mg PO DAILY 11/09/18 Donepezil HCl [Aricept] 5 mg PO DAILY 11/09/18 Dorzolamide HCl [Trusopt 2%] 1 drop OU BID 11/09/18 Ferrous Sulfate 325 mg PO DAILY 11/09/18 Furosemide [Lasix -] 40 mg PO DAILY 11/09/18 Hydroxychloroquine Sulfate [Plaquenil] 200 mg PO DAILY 11/09/18 Latanoprost 1 drop OU HS 11/09/18 Linagliptin/Metformin HCl [Jentadueto 2.5 mg-500 mg Tab] 1 each PO BID 11/09/18 Multivitamin [Multiple Vitamins] 1 each PO DAILY 11/09/18 Ondansetron [Zofran -] 4 mg PO DAILY 11/09/18 Pantoprazole Sodium 40 mg PO DAILY 11/09/18 Rosuvastatin [Crestor -] 5 mg PO HS 11/09/18 Timolol [Betimol] 1 drop OU BID 11/09/18 Ubidecarenone [Co Q-10] 0 mg PO DAILY 11/09/18 Anemia: No Cardiac Disorders: Yes (PACEMAKER, AAA 5CM, AFIB, PERICARDITIS, PERICARDIAL EFFUSION) CVA: Yes (RIGHT ARM AND LEG WEAKNESS RESIDUAL) COPD: No CHF: Yes DVT: No Diabetes: Yes 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 No: Blood Streaked Bowels, Constipated, Rectal Bleeding, Tarry Stools : No: Dysuria *Physical Exam Vital Signs Temperature 98.5 F 11/19/18 05:33 Pulse Rate 60 11/19/18 05:33 Respiratory Rate 20 11/19/18 09:00 Blood Pressure 160/78 11/19/18 05:33 O2 Sat by Pulse Oximetry (%) 95 11/19/18 09:00 CBCD WBC 5.5 K/mm3 (4.0-10.0) 11/19/18 06:30 RBC 4.08 M/mm3 (3.60-5.2) 11/19/18 06:30 Hgb 12.1 GM/dL (10.7-15.3) 11/19/18 06:30 Hct 37.8 % (32.4-45.2) 11/19/18 06:30 MCV 92.7 fl (80-96) 11/19/18 06:30 MCHC 31.9 g/dl (32.0-36.0) L 11/19/18 06:30 RDW 14.3 % (11.6-15.6) 11/19/18 06:30 Plt Count 167 K/MM3 (134-434) 11/19/18 06:30 MPV 9.0 fl (7.5-11.1) 11/19/18 06:30 CMP Sodium 146 mmol/L (136-145) H 11/19/18 06:30 Potassium 3.4 mmol/L (3.5-5.1) L 11/19/18 06:30 Chloride 113 mmol/L (98-107) H 11/19/18 06:30 Carbon Dioxide 25 mmol/L (21-32) 11/19/18 06:30 Anion Gap 7 MMOL/L (8-16) L 11/19/18 06:30 BUN 8 mg/dL (7-18) 11/19/18 06:30 Creatinine 1.1 mg/dL (0.55-1.3) 11/19/18 06:30 Creat Clearance w eGFR 48.55 (>60) 11/19/18 06:30 Random Glucose 113 mg/dL (74-106) H 11/19/18 06:30 Calcium 8.9 mg/dL (8.5-10.1) 11/19/18 06:30 Total Bilirubin 0.3 mg/dL (0.2-1) 11/19/18 06:30 AST 39 U/L (15-37) H 11/19/18 06:30 ALT 25 U/L (13-61) 11/19/18 06:30 Alkaline Phosphatase 125 U/L (45-117) H 11/19/18 06:30 Total Protein 5.4 g/dl (6.4-8.2) L 11/19/18 06:30 Albumin 2.6 g/dl (3.4-5.0) L 11/19/18 06:30 CT L spine reviewed 11/09/18 13:00 73 yo F, h/o HTN, HLD, CHF, afib on eliquis, pericarditis, AAA, PPM, CVA w/ R sided deficits, uti, colitis. Presented to ER with complaints of watery diarrhea , nausea vomiting and abdominal pain that started several days prior to admission.. No BRBPR, melena, f/c. Pt s/p admission for similar symptoms > 6 months ago w/ pancolitis on CT. Cdiff and other stool studies negative per records. Pt had received vanco/levaquin in ER and discharged to [place] with doxycycline 6 months ago. Pt had also treated for MRSA UTI while admitted. Consulted for lumbar spine fracture as noted. NSGY note reviewed and chronic L2 compression fracture, also consider involvement of L5. Mentions possible vertebroplasty, family at bedside and discussed, for now conservative care may be best. Though defer to NSGY regarding intervention, family is considering all options. Agree with brace, physical therapy as tolerated. Fall precautions, avoid any further aggrevation of lower back. Pain control as able.
[2018-11-19 10:47] LABS: ANISOCYTOSIS 0; MACROCYTOSIS 0; PLATELET ESTIMATE DECREASED
[2018-11-19] MEDS: CALCIUM (OYSTER SHELL) 500 MG TABLET (FP) PO SCH (11:28)
--- NOTE | 2018-11-19 14:40 | PN ---
Progress Note, Physician History of Present Illness: stable no issues back pain dirrhoea improving - Current Medication List Current Medications: Active Medications Acetaminophen (Tylenol -) 650 mg PO Q4H PRN PRN Reason: PAIN LEVEL 1 - 3 Last Admin: 11/16/18 10:03 Dose: 650 mg Alprazolam (Xanax -) 1.5 mg PO HS [facility] Last Admin: 11/18/18 22:44 Dose: Not Given Apixaban (Eliquis -) 5 mg PO BID [facility] Last Admin: 11/19/18 09:39 Dose: 5 mg Calcium Carbonate (Os-Gino 500mg -) 500 mg PO DAILY [facility] Last Admin: 11/19/18 11:28 Dose: 500 mg Carvedilol (Coreg -) 25 mg PO BID [facility] Last Admin: 11/19/18 09:39 Dose: 25 mg Clopidogrel Bisulfate (Plavix -) 75 mg PO DAILY [facility] Last Admin: 11/19/18 09:39 Dose: 75 mg Colchicine (Colcrys -) 0.6 mg PO BID [facility] Last Admin: 11/19/18 09:39 Dose: 0.6 mg Diltiazem HCl (Cardizem Cd -) 240 mg PO DAILY [facility] Last Admin: 11/19/18 09:39 Dose: 240 mg Diphenoxylate HCl/Atropine (Lomotil -) 1 combo PO Q8H PRN PRN Reason: DIARRHEA Donepezil HCl (Aricept -) 5 mg PO HS [facility] Last Admin: 11/18/18 22:40 Dose: 5 mg Dorzolamide HCl (Trusopt 2%) 1 drop OU BID [facility] Last Admin: 11/19/18 10:36 Dose: 1 drop Ergocalciferol (Drisdol -) 50,000 unit PO Q7D@1000 [facility] Ferrous Sulfate (Feosol -) 325 mg PO DAILY [facility] Last Admin: 11/19/18 09:39 Dose: 325 mg Furosemide (Lasix -) 40 mg PO DAILY [facility] Last Admin: 11/19/18 09:39 Dose: 40 mg Hydroxychloroquine Sulfate (Plaquenil -) 200 mg PO DAILY [facility] Last Admin: 11/19/18 09:39 Dose: 200 mg Insulin Aspart (Novolog Vial Sliding Scale -) 1 vial SQ [facility]; Protocol Last Admin: 11/19/18 13:28 Dose: 4 units Isosorbide Mononitrate (Imdur -) 30 mg PO DAILY [facility] Last Admin: 11/19/18 09:39 Dose: 30 mg Latanoprost (Xalatan 0.005% Eye Drops -) 1 drop OU HS [facility] Last Admin: 11/18/18 22:42 Dose: 1 drop Lidocaine (Lidoderm Patch -) 1 patch TP DAILY [facility] Last Admin: 11/19/18 09:38 Dose: 1 patch Oxycodone HCl (Roxicodone -) 5 mg PO Q4H PRN PRN Reason: PAIN LEVEL 4 - 6 Oxycodone HCl (Roxicodone -) 10 mg PO Q6H PRN PRN Reason: PAIN LEVEL 7 - 10 Pantoprazole Sodium (Protonix Iv) 40 mg IVPUSH DAILY [facility] Last Admin: 11/19/18 09:39 Dose: 40 mg Rosuvastatin Calcium (Crestor -) 5 mg PO HS [facility] Last Admin: 11/18/18 22:41 Dose: 5 mg Sitagliptin Phosphate (Januvia -) 25 mg PO DAILY@0700 [facility] Last Admin: 11/19/18 06:03 Dose: Not Given Timolol Maleate (Timoptic 0.5%) 1 drop OU BID [facility] Last Admin: 11/19/18 10:36 Dose: 1 drop Valsartan (Diovan -) 80 mg PO BID [facility] Last Admin: 11/19/18 09:39 Dose: 80 mg Vancomycin HCl (Vancomycin Oral Solution) 125 mg PO Q6HPO [facility] Last Admin: 11/19/18 11:28 Dose: 125 mg - Objective Vital Signs: Vital Signs Temperature 98.5 F 11/19/18 05:33 Pulse Rate 60 11/19/18 05:33 Respiratory Rate 20 11/19/18 09:00 Blood Pressure 160/78 11/19/18 05:33 O2 Sat by Pulse Oximetry (%) 95 11/19/18 09:00 Constitutional: Yes: Calm, Mild Distress Cardiovascular: Yes: Regular Rate and Rhythm Gastrointestinal: Yes: Normal Bowel Sounds, Soft Musculoskeletal: Yes: WNL Extremities: Yes: Other Neurological: Yes: Alert, Oriented Psychiatric: Yes: Alert, Oriented Labs: CBC, BMP 11/19/18 06:30 11/19/18 06:30 INR, PTT INR 2.37 (0.83-1.09) H 11/14/18 06:00 Assessment/Plan This is a 73 year old woman with a history of CVA with right hemiparesis, PAF, HTN, hyperlipdemia, CAD, GERD, colitis, PAD, renal artery stenosis, DVT, type 2 DM, AAA, pacemaker 1. Acute colitis, recurrent 2. Acute kidney injury on stage 3 CKD 3. CAD, history of stent 4. HTN 5. Hyperlipidemia 6. Paroxysmal atrial fibrillation 7. Type 2 diabetes mellitus 8. History of DVT, hypercoagulable state 9. PAD 10. Renal artery stenosis 11. AAA, history of repair 12. Right hemiparesis secondary to old CVA plan 'oral vanco for a total of 14 days monitor dirrhoea rest as per the team off of all abx now
--- NOTE | 2018-11-19 15:05 | PN ---
Physical Exam: SUBJECTIVE: Patient seen and examined at the bedside. OBJECTIVE: pt reports one loose bm today, none overnight seen by neuro and neuro surgery Vital Signs Period Temp Pulse Resp BP Sys/[place]ak Pulse Ox Last 24 Hr 97.8 F-98.5 F 60-66 18-20 138-160/53-78 95-95 GENERAL: The patient is awake, alert, and fully oriented HEAD: Normal with no signs of trauma. EYES: PERRL, extraocular movements intact, sclera anicteric, conjunctiva clear. No ptosis. ENT: Ears normal, nares patent, oropharynx clear without exudates, moist mucous membranes. NECK: Trachea midline, full range of motion, supple. LUNGS: Breath sounds equal, clear to auscultation bilaterally HEART: Regular rate and rhythm ABDOMEN: Soft, nontender, nondistended, normoactive bowel sounds, bruising on lower abdomen - tolerating diet EXTREMITIES: 2+ pulses, warm, well-perfused, no edema. NEUROLOGICAL: Normal speech, gait not observed. PSYCH: Normal mood, normal affect. SKIN: Warm, dry, normal turgor, no rashes or lesions noted Laboratory Results - last 24 hr 11/18/18 11/18/18 11/19/18 17:07 22:37 05:43 WBC Corrected WBC (auto) RBC Hgb Hct MCV MCH MCHC RDW Plt Count MPV Absolute Neuts (auto) Neutrophils % Neutrophils % (Manual) Band Neutrophils % Lymphocytes % Lymphocytes % (Manual) Monocytes % Monocytes % (Manual) Eosinophils % Eosinophils % (Manual) Basophils % Basophils % (Manual) Myelocytes % (Man) Promyelocytes % (Man) Blast Cells % (Manual) Nucleated RBC % Metamyelocytes Hypochromia Platelet Estimate Platelet Comment Polychromasia Poikilocytosis Anisocytosis Microcytosis Macrocytosis PTT (Actin FS) Sodium Potassium Chloride Carbon Dioxide Anion Gap BUN Creatinine Creat Clearance w eGFR POC Glucometer 183 162 98 Random Glucose Calcium Magnesium Total Bilirubin AST ALT Alkaline Phosphatase Total Protein Albumin 11/19/18 11/19/18 11/19/18 06:30 06:30 06:30 WBC 5.5 Cancelled Corrected WBC (auto) Cancelled RBC 4.08 Cancelled Hgb 12.1 Cancelled Hct 37.8 Cancelled MCV 92.7 Cancelled MCH 29.6 Cancelled MCHC 31.9 L Cancelled RDW 14.3 Cancelled Plt Count 167 Cancelled MPV 9.0 Cancelled Absolute Neuts (auto) Cancelled Neutrophils % Cancelled Neutrophils % (Manual) 62.6 Band Neutrophils % 0.0 Lymphocytes % Cancelled Lymphocytes % (Manual) 18.2 Monocytes % Cancelled Monocytes % (Manual) 4 Eosinophils % Cancelled Eosinophils % (Manual) 2.0 Basophils % Cancelled Basophils % (Manual) 0.0 Myelocytes % (Man) 0 Promyelocytes % (Man) 0 Blast Cells % (Manual) 0 Nucleated RBC % 0 Cancelled Metamyelocytes 0 Hypochromia 0 Platelet Estimate Decreased Cancelled Platelet Comment Cancelled Polychromasia 0 Poikilocytosis 0 Anisocytosis 0 Microcytosis 0 Macrocytosis 0 PTT (Actin FS) 33.1 Sodium Potassium Chloride Carbon Dioxide Anion Gap BUN Creatinine Creat Clearance w eGFR POC Glucometer Random Glucose Calcium Magnesium Total Bilirubin AST ALT Alkaline Phosphatase Total Protein Albumin 11/19/18 11/19/18 06:30 11:26 WBC Corrected WBC (auto) RBC Hgb Hct MCV MCH MCHC RDW Plt Count MPV Absolute Neuts (auto) Neutrophils % Neutrophils % (Manual) Band Neutrophils % Lymphocytes % Lymphocytes % (Manual) Monocytes % Monocytes % (Manual) Eosinophils % Eosinophils % (Manual) Basophils % Basophils % (Manual) Myelocytes % (Man) Promyelocytes % (Man) Blast Cells % (Manual) Nucleated RBC % Metamyelocytes Hypochromia Platelet Estimate Platelet Comment Polychromasia Poikilocytosis Anisocytosis Microcytosis Macrocytosis PTT (Actin FS) Sodium 146 H Potassium 3.4 L Chloride 113 H Carbon Dioxide 25 Anion Gap 7 L BUN 8 Creatinine 1.1 Creat Clearance w eGFR 48.55 POC Glucometer 223 Random Glucose 113 H Calcium 8.9 Magnesium 1.8 Total Bilirubin 0.3 AST 39 H ALT 25 Alkaline Phosphatase 125 H Total Protein 5.4 L Albumin 2.6 L Active Medications Generic Name Dose Route Start Last Admin Trade Name Freq PRN Reason Stop Dose Admin Acetaminophen 650 mg 11/10/18 15:29 11/16/18 10:03 Tylenol - PO 650 mg Q4H PRN Administration PAIN LEVEL 1 - 3 Alprazolam 1.5 mg 11/09/18 22:00 11/18/18 22:44 Xanax - PO Not Given HS JONAS Apixaban 5 mg 11/17/18 22:00 11/19/18 09:39 Eliquis - PO 5 mg BID JONAS Administration Calcium Carbonate 500 mg 11/19/18 11:15 11/19/18 11:28 Os-Gino 500mg - PO 500 mg DAILY JONAS Administration Carvedilol 25 mg 11/09/18 22:00 11/19/18 09:39 Coreg - PO 25 mg BID JONAS Administration Clopidogrel Bisulfate 75 mg 11/10/18 10:00 11/19/18 09:39 Plavix - PO 75 mg DAILY JONAS Administration Colchicine 0.6 mg 11/09/18 22:00 11/19/18 09:39 Colcrys - PO 0.6 mg BID JONAS Administration Diltiazem HCl 240 mg 11/10/18 10:00 11/19/18 09:39 Cardizem Cd - PO 240 mg DAILY JONAS Administration Diphenoxylate HCl/Atropine 1 combo 11/16/18 19:53 Lomotil - PO Q8H PRN DIARRHEA Donepezil HCl 5 mg 11/10/18 22:00 11/18/18 22:40 Aricept - PO 5 mg HS JONAS Administration Dorzolamide HCl 1 drop 11/09/18 22:00 11/19/18 10:36 Trusopt 2% OU 1 drop BID JONAS Administration Ergocalciferol 50,000 unit 11/26/18 10:00 Drisdol - PO Q7D@1000 JONAS Ferrous Sulfate 325 mg 11/10/18 10:00 11/19/18 09:39 Feosol - PO 325 mg DAILY JONAS Administration Furosemide 40 mg 11/10/18 10:00 11/19/18 09:39 Lasix - PO 40 mg DAILY JONAS Administration Hydroxychloroquine Sulfate 200 mg 11/10/18 10:00 11/19/18 09:39 Plaquenil - PO 200 mg DAILY JONAS Administration Insulin Aspart 1 vial 11/09/18 22:00 11/19/18 13:28 Novolog Vial Sliding Scale - SQ 4 units ACHS JONAS Administration Protocol Isosorbide Mononitrate 30 mg 11/17/18 10:00 11/19/18 09:39 Imdur - PO 30 mg DAILY JON[facility] Administration Latanoprost 1 drop 11/09/18 22:00 11/18/18 22:42 Xalatan 0.005% Eye Drops - OU 1 drop HS JONAS Administration Lidocaine 1 patch 11/16/18 17:45 11/19/18 09:38 Lidoderm Patch - TP 1 patch DAILY JONAS Administration Oxycodone HCl 5 mg 11/19/18 11:13 Roxicodone - PO Q4H PRN PAIN LEVEL 4 - 6 Oxycodone HCl 10 mg 11/19/18 11:14 Roxicodone - PO Q6H PRN PAIN LEVEL 7 - 10 Pantoprazole Sodium 40 mg 11/13/18 14:00 11/19/18 09:39 Protonix Iv IVPUSH 40 mg DAILY JONAS Administration Rosuvastatin Calcium 5 mg 11/09/18 22:00 11/18/18 22:41 Crestor - PO 5 mg HS JONAS Administration Sitagliptin Phosphate 25 mg 11/10/18 07:00 11/19/18 06:03 Januvia - PO Not Given DAILY@0700 JONAS Timolol Maleate 1 drop 11/09/18 22:00 11/19/18 10:36 Timoptic 0.5% OU 1 drop BID JONAS Administration Valsartan 80 mg 11/12/18 17:45 11/19/18 09:39 Diovan - PO 80 mg BID JONAS Administration Vancomycin HCl 125 mg 11/10/18 18:00 11/19/18 11:28 Vancomycin Oral Solution PO 125 mg Q6HPO JONAS Administration ASSESSMENT/PLAN: Patient is a 73 year old female with a significant past medical history of HTN, HLD, CHF, afib on eliquis, pericarditis, AAA, PPM, CVA w/ R sided deficits, uti and colitis. She was admitted on 11/09/18 for NB, watery diarrhea w/ n/v and abd pain. Patient also has hx of MRSA UTI. GI: Acute colitis. resolved Being followed by GI. On low fiber diet, which she is tolerating. no colonoscopy planned per GI. Cdiff: On vanco po q6 (will need vanco x a total of 14 days-started on 11/10/18). Renal: VILLA on CKD stage 4, chronic Hypokalemia, resolved Hypomagnessemia, resolved Cardiology. Paroxysmal Atrial fibrillation. On Eliquis bid, coreq, dilitazem, furosemide Hypertension, chronic On coreq Endocrine: Type 2 diabetes mellitus. chronic on Novolog SS, metformin on hold Muscular skeletal Back pain, acute. seen by neuro and neurosurgery and options given to patient and family. may need a brace for mobility to help ease pain. surgical options to be explored outpatient. repeat back xray in 3 weeks. Pain management with oxycodone 5 and oxycodone 10 Heme: History of DVT, hypercoagulable state. on eliquis. fen tolerating full liquids monitor electrolytes prophy eliquis full code Visit type - Emergency Visit Emergency Visit: Yes ED Registration Date: 11/09/18 Care time: The patient presented to the Emergency Department on the above date and was hospitalized for further evaluation of their emergent condition. - New Patient This patient is new to me today: No - Critical Care Critical Care patient: No - Discharge Referral Referred to [facility] Med P.C.: No
[2018-11-19] MEDS ORDERED: POTASSIUM CHLORIDE TABS 20 MEQ TABLET.ER (FP) PO ONE (15:14)
[2018-11-19] MEDS: oxyCODONE HCL 5 MG TABLET PO PRN (18:31)
[2018-11-19] MEDS: ALPRAZolam 0.25 MG TABLET PO SCH (23:00)
[2018-11-19] MEDS: DONEPEZIL HCL 5 MG TABLET (FP) PO SCH (23:01)
[2018-11-19] MEDS: LATANOPROST 0.005% OPHTH SOLN 2.5ML BOTTLE OU SCH (23:03)
[2018-11-19] MEDS: ROSUVASTATIN CA 5 MG TABLET (FP) PO SCH (23:08)
[2018-11-20] MEDS ORDERED: PT OWN MED DRAWER 7, Y5N ONE ×3 (02:22→23:35)
[2018-11-20] MEDS: INSULIN SLIDING SCALE (NOVOLOG) 1 VIAL SQ SCH ×4 (06:37→23:20)
[2018-11-20] MEDS: sitaGLIPtin PHOSPHATE 25 MG TABLET (FP) PO SCH (06:37)
[2018-11-20] MEDS: VANCOMYCIN 250 MG/5 ML ORAL SOLUTION PO SCH ×4 (06:37→23:17)
[2018-11-20 07:55] LABS: BASO % 0.9 % (0-2.0); EOS % 3.2 % (0-4.5); HEMATOCRIT 37.3 % (32.4-45.2); HEMOGLOBIN 12.1 GM/dL (10.7-15.3); LYMPH % 38.9 % (8-40); MCH 30.2 pg (25.7-33.7); MCHC 32.5 g/dl (32.0-36.0); MEAN CELL VOLUME 92.8 fl (80-96); MONO % 10.7 % (3.8-10.2); NEUT % 46.3 % (42.8-82.8); PLATELET COUNT 169 K/MM3 (134-434); RBC 4.02 M/mm3 (3.60-5.2); RDW 14.5 % (11.6-15.6); WHITE BLOOD COUNT 4.7 K/mm3 (4.0-10.0)
[2018-11-20 08:28] LABS: ALBUMIN 2.6 g/dl (3.4-5.0); ALK PHOS 124 U/L (45-117); ANION GAP 6 MMOL/L (8-16); BILIRUBIN,TOTAL 0.4 mg/dL (0.2-1); BLOOD UREA NITROGEN 8 mg/dL (7-18); CALCIUM 9.1 mg/dL (8.5-10.1); CHLORIDE 111 mmol/L (98-107); CO2 27 mmol/L (21-32); CREATININE 1.2 mg/dL (0.55-1.3); GLUCOSE,RANDOM 104 mg/dL (74-106); POTASSIUM 3.4 mmol/L (3.5-5.1); SGOT/AST 44 U/L (15-37); SGPT/ALT 31 U/L (13-61); SODIUM 143 mmol/L (136-145); TOT PROT 5.4 g/dl (6.4-8.2)
--- NOTE | 2018-11-20 08:54 | PN ---
Progress Note, Physician - Current Medication List Current Medications: Active Medications Acetaminophen (Tylenol -) 650 mg PO Q4H PRN PRN Reason: PAIN LEVEL 1 - 3 Last Admin: 11/16/18 10:03 Dose: 650 mg Alprazolam (Xanax -) 1.5 mg PO HS [facility] Last Admin: 11/19/18 23:00 Dose: 0.5 mg Apixaban (Eliquis -) 5 mg PO BID [facility] Last Admin: 11/19/18 23:02 Dose: 5 mg Calcium Carbonate (Os-Gino 500mg -) 500 mg PO DAILY [facility] Last Admin: 11/19/18 11:28 Dose: 500 mg Carvedilol (Coreg -) 25 mg PO BID [facility] Last Admin: 11/19/18 23:02 Dose: 25 mg Clopidogrel Bisulfate (Plavix -) 75 mg PO DAILY [facility] Last Admin: 11/19/18 09:39 Dose: 75 mg Colchicine (Colcrys -) 0.6 mg PO BID [facility] Last Admin: 11/19/18 23:01 Dose: 0.6 mg Diltiazem HCl (Cardizem Cd -) 240 mg PO DAILY [facility] Last Admin: 11/19/18 09:39 Dose: 240 mg Diphenoxylate HCl/Atropine (Lomotil -) 1 combo PO Q8H PRN PRN Reason: DIARRHEA Donepezil HCl (Aricept -) 5 mg PO [facility] Last Admin: 11/19/18 23:01 Dose: 5 mg Dorzolamide HCl (Trusopt 2%) 1 drop OU BID [facility] Last Admin: 11/19/18 23:08 Dose: 1 drop Ergocalciferol (Drisdol -) 50,000 unit PO Q7D@1000 [facility] Ferrous Sulfate (Feosol -) 325 mg PO DAILY [facility] Last Admin: 11/19/18 09:39 Dose: 325 mg Furosemide (Lasix -) 40 mg PO DAILY [facility] Last Admin: 11/19/18 09:39 Dose: 40 mg Hydroxychloroquine Sulfate (Plaquenil -) 200 mg PO DAILY [facility] Last Admin: 11/19/18 09:39 Dose: 200 mg Insulin Aspart (Novolog Vial Sliding Scale -) 1 vial SQ [facility]; Protocol Last Admin: 11/20/18 06:37 Dose: Not Given Isosorbide Mononitrate (Imdur -) 30 mg PO DAILY [facility] Last Admin: 11/19/18 09:39 Dose: 30 mg Latanoprost (Xalatan 0.005% Eye Drops -) 1 drop OU HS [facility] Last Admin: 11/19/18 23:03 Dose: 1 drop Lidocaine (Lidoderm Patch -) 1 patch TP DAILY [facility] Last Admin: 11/19/18 09:38 Dose: 1 patch Oxycodone HCl (Roxicodone -) 5 mg PO Q4H PRN PRN Reason: PAIN LEVEL 4 - 6 Oxycodone HCl (Roxicodone -) 10 mg PO Q6H PRN PRN Reason: PAIN LEVEL 7 - 10 Last Admin: 11/19/18 18:31 Dose: 10 mg Pantoprazole Sodium (Protonix -) 40 mg PO DAILY [facility] Rosuvastatin Calcium (Crestor -) 5 mg PO HS [facility] Last Admin: 11/19/18 23:08 Dose: 5 mg Sitagliptin Phosphate (Januvia -) 25 mg PO DAILY@0700 [facility] Last Admin: 11/20/18 06:37 Dose: Not Given Timolol Maleate (Timoptic 0.5%) 1 drop OU BID [facility] Last Admin: 11/19/18 23:02 Dose: 1 drop Valsartan (Diovan -) 80 mg PO BID [facility] Last Admin: 11/19/18 23:07 Dose: 80 mg Vancomycin HCl (Vancomycin Oral Solution) 125 mg PO Q6HPO [facility] Last Admin: 11/20/18 06:37 Dose: 125 mg - Objective Vital Signs: Vital Signs Temperature 98.7 F 11/20/18 06:34 Pulse Rate 60 11/20/18 06:34 Respiratory Rate 20 11/20/18 06:34 Blood Pressure 155/66 11/20/18 06:34 O2 Sat by Pulse Oximetry (%) 95 11/19/18 21:00 Eyes: Yes: WNL, Conjunctiva Clear, EOM Intact HENT: Yes: WNL, Atraumatic, Normocephalic Neck: Yes: WNL, Supple, Trachea Midline Cardiovascular: Yes: WNL, Regular Rate and Rhythm Respiratory: Yes: WNL, Regular, CTA Bilaterally Gastrointestinal: Yes: WNL, Normal Bowel Sounds Genitourinary: Yes: WNL Musculoskeletal: Yes: WNL Extremities: Yes: WNL Edema: No Integumentary: Yes: WNL Neurological: Yes: WNL, Alert, Oriented ...Motor Strength: WNL Psychiatric: Yes: WNL Labs: CBC, BMP 11/20/18 06:30 11/20/18 06:30 INR, PTT INR 2.37 (0.83-1.09) H 11/14/18 06:00 Assessment/Plan IMP: Nonspecific Colitis Equivocal Lupus Anticoagulant AB, followed by Rheum and Heme at [facility] Prior CVA AF s/p PPM maintained on Eliquis Prior DVT HTN Renal artery stenosis CKD Hx of pericardial effusion- treated Chronic diastolic CHF AAA s/p EVAR T. O CHELSY, moderate LICA stenosis. Vascular Dementia REC: Case d/w Vascular Surgery- while EVAR repair can lead to colitis due to compromise of mesenteric arteries, this usually occurs soon after procedure. In addition, the current impression is that this does not represent an ischemic colitis based on distribution. 1. Eliquis resumed as colonoscopy not planned this admission. See GI notes. 2. Continue home BP/CHF regimen: Carvedilol, ARB, Lasix. 3. Follow renal fxn closely while PO intake may be reduced, replete lytes 4. Continue Plavix (if OK w/ GI)- remote hx PCI and prior CVA; Crestor. coverage for dr. Storey
[2018-11-20] MEDS: CLOPIDOGREL BISULFATE 75 MG TABLET (FP) PO SCH (09:53)
[2018-11-20] MEDS: CARVEDILOL 25 MG TABLET (FP) PO SCH ×2 (09:53→23:18)
[2018-11-20] MEDS: LIDOCAINE 5% TOPICAL PATCH TP SCH (09:53)
[2018-11-20] MEDS: CALCIUM (OYSTER SHELL) 500 MG TABLET (FP) PO SCH (09:53)
[2018-11-20] MEDS: VALSARTAN 80 MG TABLET (UD) PO SCH ×2 (09:53→23:18)
[2018-11-20] MEDS: FUROSEMIDE 40 MG TABLET (FP) PO SCH (09:53)
[2018-11-20] MEDS: PANTOPRAZOLE 40 MG TABLET (FP) PO SCH (09:53)
[2018-11-20] MEDS: APIXABAN 5 MG TABLET PO SCH ×2 (09:53→23:18)
[2018-11-20] MEDS: ISOSORBIDE MONONITRATE 30 MG TAB.SR.24H (FP) PO SCH (09:53)
[2018-11-20] MEDS: COLCHICINE 0.6 MG TABLET (FP) PO SCH ×2 (09:53→23:18)
[2018-11-20] MEDS: FERROUS SO4 325 MG TABLET (FP) PO SCH (09:53)
[2018-11-20] MEDS: TIMOLOL 0.5% OPHTHALMIC SOL 5 ML BOTTLE OU SCH ×2 (09:54→23:20)
[2018-11-20] MEDS: DORZOLAMIDE 2% HCL OPHTHALMIC SOLUTION 10 ML BOTTLE OU SCH ×2 (09:54→23:20)
[2018-11-20] MEDS: HYDROXYCHLOROQUINE SO4 200 MG TABLET (FP) PO SCH (09:54)
--- NOTE | 2018-11-20 09:59 | PN ---
Physical Exam: SUBJECTIVE: Patient seen and examined at the bedside. feels better, still with back pain OBJECTIVE: discharge planning, likely tomorrow. patient needs major assistance with all ADLs. has a L5 fracture and will need a brace. she will have a repeat xray in 3 weeks and follow up with neurosurgery. Vital Signs Period Temp Pulse Resp BP Sys/[place] Pulse Ox Last 24 Hr 98.1 F-98.7 F 60-60 16-20 130-155/55-66 95 GENERAL: The patient is awake, alert, and fully oriented HEAD: Normal with no signs of trauma. EYES: PERRL, extraocular movements intact, sclera anicteric, conjunctiva clear. No ptosis. ENT: Ears normal, nares patent, oropharynx clear without exudates, moist mucous membranes. NECK: Trachea midline, full range of motion, supple. LUNGS: Breath sounds equal, clear to auscultation bilaterally HEART: Regular rate and rhythm ABDOMEN: Soft, nontender, nondistended, normoactive bowel sounds, bruising on lower abdomen - tolerating diet EXTREMITIES: 2+ pulses, warm, well-perfused, no edema. NEUROLOGICAL: Normal speech, gait not observed. PSYCH: Normal mood, normal affect. SKIN: Warm, dry, normal turgor, no rashes or lesions noted Laboratory Results - last 24 hr 11/19/18 11/19/18 11/19/18 06:30 11:26 16:44 WBC RBC Hgb Hct MCV MCH MCHC RDW Plt Count MPV Absolute Neuts (auto) Neutrophils % Neutrophils % (Manual) 62.6 Band Neutrophils % 0.0 Lymphocytes % Lymphocytes % (Manual) 18.2 Monocytes % Monocytes % (Manual) 4 Eosinophils % Eosinophils % (Manual) 2.0 Basophils % Basophils % (Manual) 0.0 Myelocytes % (Man) 0 Promyelocytes % (Man) 0 Blast Cells % (Manual) 0 Nucleated RBC % 0 Metamyelocytes 0 Hypochromia 0 Platelet Estimate Decreased Polychromasia 0 Poikilocytosis 0 Anisocytosis 0 Microcytosis 0 Macrocytosis 0 PTT (Actin FS) Sodium Potassium Chloride Carbon Dioxide Anion Gap BUN Creatinine Creat Clearance w eGFR POC Glucometer 223 123 Random Glucose Calcium Total Bilirubin AST ALT Alkaline Phosphatase Total Protein Albumin 11/19/18 11/20/18 11/20/18 22:57 05:49 06:30 WBC RBC Hgb Hct MCV MCH MCHC RDW Plt Count MPV Absolute Neuts (auto) Neutrophils % Neutrophils % (Manual) Band Neutrophils % Lymphocytes % Lymphocytes % (Manual) Monocytes % Monocytes % (Manual) Eosinophils % Eosinophils % (Manual) Basophils % Basophils % (Manual) Myelocytes % (Man) Promyelocytes % (Man) Blast Cells % (Manual) Nucleated RBC % Metamyelocytes Hypochromia Platelet Estimate Polychromasia Poikilocytosis Anisocytosis Microcytosis Macrocytosis PTT (Actin FS) 35.8 Sodium Potassium Chloride Carbon Dioxide Anion Gap BUN Creatinine Creat Clearance w eGFR POC Glucometer 157 91 Random Glucose Calcium Total Bilirubin AST ALT Alkaline Phosphatase Total Protein Albumin 11/20/18 11/20/18 06:30 06:30 WBC 4.7 RBC 4.02 Hgb 12.1 Hct 37.3 MCV 92.8 MCH 30.2 MCHC 32.5 RDW 14.5 Plt Count 169 MPV 9.0 Absolute Neuts (auto) 2.2 Neutrophils % 46.3 Neutrophils % (Manual) Band Neutrophils % Lymphocytes % 38.9 Lymphocytes % (Manual) Monocytes % 10.7 H Monocytes % (Manual) Eosinophils % 3.2 Eosinophils % (Manual) Basophils % 0.9 Basophils % (Manual) Myelocytes % (Man) Promyelocytes % (Man) Blast Cells % (Manual) Nucleated RBC % 0 Metamyelocytes Hypochromia Platelet Estimate Polychromasia Poikilocytosis Anisocytosis Microcytosis Macrocytosis PTT (Actin FS) Sodium 143 Potassium 3.4 L Chloride 111 H Carbon Dioxide 27 Anion Gap 6 L BUN 8 Creatinine 1.2 Creat Clearance w eGFR 43.91 POC Glucometer Random Glucose 104 Calcium 9.1 Total Bilirubin 0.4 AST 44 H ALT 31 Alkaline Phosphatase 124 H Total Protein 5.4 L Albumin 2.6 L Active Medications Generic Name Dose Route Start Last Admin Trade Name Freq PRN Reason Stop Dose Admin Acetaminophen 650 mg 11/10/18 15:29 11/16/18 10:03 Tylenol - PO 650 mg Q4H PRN Administration PAIN LEVEL 1 - 3 Alprazolam 1.5 mg 11/09/18 22:00 11/19/18 23:00 Xanax - PO 0.5 mg HS JONAS Administration Apixaban 5 mg 11/17/18 22:00 11/20/18 09:53 Eliquis - PO 5 mg BID JONAS Administration Calcium Carbonate 500 mg 11/19/18 11:15 11/20/18 09:53 Os-Gino 500mg - PO 500 mg DAILY JONAS Administration Carvedilol 25 mg 11/09/18 22:00 11/20/18 09:53 Coreg - PO 25 mg BID JONAS Administration Clopidogrel Bisulfate 75 mg 11/10/18 10:00 11/20/18 09:53 Plavix - PO 75 mg DAILY JONAS Administration Colchicine 0.6 mg 11/09/18 22:00 11/20/18 09:53 Colcrys - PO 0.6 mg BID JONAS Administration Diltiazem HCl 240 mg 11/10/18 10:00 11/20/18 09:53 Cardizem Cd - PO 240 mg DAILY [facility] Administration Diphenoxylate HCl/Atropine 1 combo 11/16/18 19:53 Lomotil - PO Q8H PRN DIARRHEA Donepezil HCl 5 mg 11/10/18 22:00 11/19/18 23:01 Aricept - PO 5 mg HS [facility] Administration Dorzolamide HCl 1 drop 11/09/18 22:00 11/20/18 09:54 Trusopt 2% OU 1 drop BID JONAS Administration Ergocalciferol 50,000 unit 11/26/18 10:00 Drisdol - PO Q7D@1000 [facility] Ferrous Sulfate 325 mg 11/10/18 10:00 11/20/18 09:53 Feosol - PO 325 mg DAILY JONAS Administration Furosemide 40 mg 11/10/18 10:00 11/20/18 09:53 Lasix - PO 40 mg DAILY JONAS Administration Hydroxychloroquine Sulfate 200 mg 11/10/18 10:00 11/20/18 09:54 Plaquenil - PO 200 mg DAILY [facility] Administration Insulin Aspart 1 vial 11/09/18 22:00 11/20/18 06:37 Novolog Vial Sliding Scale - SQ Not Given ACHS [facility] Protocol Isosorbide Mononitrate 30 mg 11/17/18 10:00 11/20/18 09:53 Imdur - PO 30 mg DAILY JONAS Administration Latanoprost 1 drop 11/09/18 22:00 11/19/18 23:03 Xalatan 0.005% Eye Drops - OU 1 drop HS [facility] Administration Lidocaine 1 patch 11/16/18 17:45 11/20/18 09:53 Lidoderm Patch - TP Not Given DAILY [facility] Oxycodone HCl 5 mg 11/19/18 11:13 Roxicodone - PO Q4H PRN PAIN LEVEL 4 - 6 Oxycodone HCl 10 mg 11/19/18 11:14 11/19/18 18:31 Roxicodone - PO 10 mg Q6H PRN Administration PAIN LEVEL 7 - 10 Pantoprazole Sodium 40 mg 11/20/18 10:00 11/20/18 09:53 Protonix - PO 40 mg DAILY JONAS Administration Rosuvastatin Calcium 5 mg 11/09/18 22:00 11/19/18 23:08 Crestor - PO 5 mg HS JONAS Administration Sitagliptin Phosphate 25 mg 11/10/18 07:00 11/20/18 06:37 Januvia - PO Not Given DAILY@0700 JONAS Timolol Maleate 1 drop 11/09/18 22:00 11/20/18 09:54 Timoptic 0.5% OU 1 drop BID JONAS Administration Valsartan 80 mg 11/12/18 17:45 11/20/18 09:53 Diovan - PO 80 mg BID JONAS Administration Vancomycin HCl 125 mg 11/10/18 18:00 11/20/18 06:37 Vancomycin Oral Solution PO 125 mg Q6HPO JONAS Administration ASSESSMENT/PLAN: Patient is a 73 year old female with a significant past medical history of HTN, HLD, CHF, afib on eliquis, pericarditis, AAA, PPM, CVA w/ R sided deficits, uti and colitis. She was admitted on 11/09/18 for NB, watery diarrhea w/ n/v and abd pain. Patient also has hx of MRSA UTI. GI: Acute colitis. resolved Being followed by GI. On low fiber diet, which she is tolerating. no colonoscopy planned per GI. Cdiff: On vanco po q6 (will need vanco x a total of 14 days-started on 11/10/18). Renal: VILLA on CKD stage 4, chronic Hypokalemia, resolved Hypomagnessemia, resolved Cardiology. Paroxysmal Atrial fibrillation. On Eliquis bid, coreq, dilitazem, furosemide Hypertension, chronic On coreq Endocrine: Type 2 diabetes mellitus. chronic on Novolog SS, metformin on hold Muscular skeletal Back pain, acute. seen by neuro and neurosurgery and options given to patient and family. may need a brace for mobility to help ease pain. surgical options to be explored outpatient. repeat back xray in 3 weeks. Pain management with oxycodone 5 and oxycodone 10 Heme: History of DVT, hypercoagulable state. on eliquis. fen tolerating full liquids monitor electrolytes prophy eliquis discharge planning. Visit type - Emergency Visit Emergency Visit: Yes ED Registration Date: 11/09/18 Care time: The patient presented to the Emergency Department on the above date and was hospitalized for further evaluation of their emergent condition. - New Patient This patient is new to me today: No - Critical Care Critical Care patient: No - Discharge Referral Referred to [facility] Med P.C.: No
[2018-11-20] MEDS: oxyCODONE HCL 5 MG TABLET PO PRN ×2 (10:00→17:44)
[2018-11-20] MEDS ORDERED: POTASSIUM CHLORIDE TABS 20 MEQ TABLET.ER (FP) PO ONE (10:01)
--- NOTE | 2018-11-20 11:41 | PN ---
Progress Note (short form) - Note Progress Note: Neurology History of Present Illness 73 yo F, h/o HTN, HLD, CHF, afib on eliquis, pericarditis, AAA, PPM, CVA w/ R sided deficits, uti, colitis. Presented to ER with complaints of watery diarrhea , nausea vomiting and abdominal pain that started several days prior to admission.. No BRBPR, melena, f/c. Pt s/p admission for similar symptoms > 6 months ago w/ pancolitis on CT. Cdiff and other stool studies negative per records. Pt had received vanco/levaquin in ER and discharged to OR with doxycycline 6 months ago. Consulted for lumbar spine fracture as noted. NSGY note reviewed and chronic L2 compression fracture, also consider involvement of L5. Mentions possible vertebroplasty, family at bedside yesterday and discussed , for now conservative care may be best. Though defer to NSGY regarding intervention, family is considering all options. Discussed again with family this AM, plan is for possible discharge tomorrow and outpatient follow up with surgeon with possibly xray evaluation. Patient pain improving with oxycodone, she is comfortable appearing. Allergies Allergy/AdvReac Type Severity Reaction Status Date / Time aspirin Allergy Severe Verified 11/09/18 11:56 Penicillins Allergy Severe Verified 11/09/18 11:56 diclofenac Allergy Verified 11/09/18 11:56 shellfish derived Allergy Verified 11/09/18 11:56 lactose AdvReac Verified 11/09/18 11:56 peanut Allergy Unknown Rash Uncoded 11/09/18 11:56 iv contrast Allergy Uncoded 11/09/18 11:56 Active Medications Acetaminophen (Tylenol -) 650 mg PO Q4H PRN PRN Reason: PAIN LEVEL 1 - 3 Last Admin: 11/16/18 10:03 Dose: 650 mg Alprazolam (Xanax -) 1.5 mg PO HS [facility] Last Admin: 11/19/18 23:00 Dose: 0.5 mg Apixaban (Eliquis -) 5 mg PO BID [facility] Last Admin: 11/20/18 09:53 Dose: 5 mg Calcium Carbonate (Os-Gino 500mg -) 500 mg PO DAILY [facility] Last Admin: 11/20/18 09:53 Dose: 500 mg Carvedilol (Coreg -) 25 mg PO BID [facility] Last Admin: 11/20/18 09:53 Dose: 25 mg Clopidogrel Bisulfate (Plavix -) 75 mg PO DAILY [facility] Last Admin: 11/20/18 09:53 Dose: 75 mg Colchicine (Colcrys -) 0.6 mg PO BID [facility] Last Admin: 11/20/18 09:53 Dose: 0.6 mg Diltiazem HCl (Cardizem Cd -) 240 mg PO DAILY [facility] Last Admin: 11/20/18 09:53 Dose: 240 mg Diphenoxylate HCl/Atropine (Lomotil -) 1 combo PO Q8H PRN PRN Reason: DIARRHEA Donepezil HCl (Aricept -) 5 mg PO HS [facility] Last Admin: 11/19/18 23:01 Dose: 5 mg Dorzolamide HCl (Trusopt 2%) 1 drop OU BID [facility] Last Admin: 11/20/18 09:54 Dose: 1 drop Ergocalciferol (Drisdol -) 50,000 unit PO Q7D@1000 [facility] Ferrous Sulfate (Feosol -) 325 mg PO DAILY [facility] Last Admin: 11/20/18 09:53 Dose: 325 mg Furosemide (Lasix -) 40 mg PO DAILY [facility] Last Admin: 11/20/18 09:53 Dose: 40 mg Hydroxychloroquine Sulfate (Plaquenil -) 200 mg PO DAILY [facility] Last Admin: 11/20/18 09:54 Dose: 200 mg Insulin Aspart (Novolog Vial Sliding Scale -) [address] [facility]; Protocol Last Admin: 11/20/18 06:37 Dose: Not Given Isosorbide Mononitrate (Imdur -) 30 mg PO DAILY [facility] Last Admin: 11/20/18 09:53 Dose: 30 mg Latanoprost (Xalatan 0.005% Eye Drops -) 1 drop OU [facility] Last Admin: 11/19/18 23:03 Dose: 1 drop Oxycodone HCl (Roxicodone -) 5 mg PO Q4H PRN PRN Reason: PAIN LEVEL 4 - 6 Last Admin: 11/20/18 10:00 Dose: 5 mg Oxycodone HCl (Roxicodone -) 10 mg PO Q6H PRN PRN Reason: PAIN LEVEL 7 - 10 Last Admin: 11/19/18 18:31 Dose: 10 mg Pantoprazole Sodium (Protonix -) 40 mg PO DAILY [facility] Last Admin: 11/20/18 09:53 Dose: 40 mg Rosuvastatin Calcium (Crestor -) 5 mg PO HS [facility] Last Admin: 11/19/18 23:08 Dose: 5 mg Sitagliptin Phosphate (Januvia -) 25 mg PO DAILY@0700 [facility] Last Admin: 11/20/18 06:37 Dose: Not Given Timolol Maleate (Timoptic 0.5%) 1 drop OU BID [facility] Last Admin: 11/20/18 09:54 Dose: 1 drop Valsartan (Diovan -) 80 mg PO BID [facility] Last Admin: 11/20/18 09:53 Dose: 80 mg Vancomycin HCl (Vancomycin Oral Solution) 125 mg PO Q6HPO [facility] Last Admin: 11/20/18 06:37 Dose: 125 mg *Physical Exam Vital Signs Temperature 98.7 F 11/20/18 06:34 Pulse Rate 60 11/20/18 06:34 Respiratory Rate 18 11/20/18 09:00 Blood Pressure 155/66 11/20/18 06:34 O2 Sat by Pulse Oximetry (%) 95 11/20/18 09:00 GENERAL: The patient is awake, alert, and fully oriented HEAD: Normal with no signs of trauma. EYES: PERRL, extraocular movements intact, sclera anicteric, conjunctiva clear. No ptosis. ENT: Ears normal, nares patent, oropharynx clear without exudates, moist mucous membranes. NECK: Trachea midline, full range of motion, supple. LUNGS: Breath sounds equal, clear to auscultation bilaterally HEART: Regular rate and rhythm ABDOMEN: Soft, nontender, nondistended, normoactive bowel sounds, bruising on lower abdomen - tolerating diet EXTREMITIES: 2+ pulses, warm, well-perfused, no edema. NEUROLOGICAL: Normal speech, Cn intact, moves extremities grossly, limited on confrontation testing, sensory slightly reduced to PP PSYCH: Normal mood, normal affect. SKIN: Warm, dry, normal turgor, no rashes or lesions noted Laboratory Value CBCD WBC 4.7 K/mm3 (4.0-10.0) 11/20/18 06:30 RBC 4.02 M/mm3 (3.60-5.2) 11/20/18 06:30 Hgb 12.1 GM/dL (10.7-15.3) 11/20/18 06:30 Hct 37.3 % (32.4-45.2) 11/20/18 06:30 MCV 92.8 fl (80-96) 11/20/18 06:30 MCHC 32.5 g/dl (32.0-36.0) 11/20/18 06:30 RDW 14.5 % (11.6-15.6) 11/20/18 06:30 Plt Count 169 K/MM3 (134-434) 11/20/18 06:30 MPV 9.0 fl (7.5-11.1) 11/20/18 06:30 CMP Sodium 143 mmol/L (136-145) 11/20/18 06:30 Potassium 3.4 mmol/L (3.5-5.1) L 11/20/18 06:30 Chloride 111 mmol/L (98-107) H 11/20/18 06:30 Carbon Dioxide 27 mmol/L (21-32) 11/20/18 06:30 Anion Gap 6 MMOL/L (8-16) L 11/20/18 06:30 BUN 8 mg/dL (7-18) 11/20/18 06:30 Creatinine 1.2 mg/dL (0.55-1.3) 11/20/18 06:30 Creat Clearance w eGFR 43.91 (>60) 11/20/18 06:30 Random Glucose 104 mg/dL (74-106) 11/20/18 06:30 Calcium 9.1 mg/dL (8.5-10.1) 11/20/18 06:30 Total Bilirubin 0.4 mg/dL (0.2-1) 11/20/18 06:30 AST 44 U/L (15-37) H 11/20/18 06:30 ALT 31 U/L (13-61) 11/20/18 06:30 Alkaline Phosphatase 124 U/L (45-117) H 11/20/18 06:30 Total Protein 5.4 g/dl (6.4-8.2) L 11/20/18 06:30 Albumin 2.6 g/dl (3.4-5.0) L 11/20/18 06:30 CT L spine reviewed 11/09/18 13:00 73 yo F, h/o HTN, HLD, CHF, afib on eliquis, pericarditis, AAA, PPM, CVA w/ R sided deficits, uti, colitis. Presented to ER with complaints of watery diarrhea , nausea vomiting and abdominal pain that started several days prior to admission.. No BRBPR, melena, f/c. Pt s/p admission for similar symptoms > 6 months ago w/ pancolitis on CT. Cdiff and other stool studies negative per records. Pt had received vanco/levaquin in ER and discharged to OR with doxycycline 6 months ago. Consulted for lumbar spine fracture as noted. NSGY note reviewed and chronic L2 compression fracture, also consider involvement of L5. Mentions possible vertebroplasty, family at bedside during examination yesterday and discussed, for now conservative care may be best. Though defer to NSGY regarding intervention, family is considering all options. Discussed again with family this AM, plan is for possible discharge tomorrow and outpatient follow up with surgeon with possibly xray evaluation. Patient pain improving with oxycodone, she is comfortable appearing. Agree with brace, physical therapy as tolerated. Fall precautions, avoid any further aggrevation of lower back. Stable at this time.
--- NOTE | 2018-11-20 13:20 | PN ---
Progress Note, Physician History of Present Illness: stable doing well neurosurg seen the patient advised corset - Current Medication List Current Medications: Active Medications Acetaminophen (Tylenol -) 650 mg PO Q4H PRN PRN Reason: PAIN LEVEL 1 - 3 Last Admin: 11/16/18 10:03 Dose: 650 mg Alprazolam (Xanax -) 1.5 mg PO HS [facility] Last Admin: 11/19/18 23:00 Dose: 0.5 mg Apixaban (Eliquis -) 5 mg PO BID [facility] Last Admin: 11/20/18 09:53 Dose: 5 mg Calcium Carbonate (Os-Gino 500mg -) 500 mg PO DAILY [facility] Last Admin: 11/20/18 09:53 Dose: 500 mg Carvedilol (Coreg -) 25 mg PO BID [facility] Last Admin: 11/20/18 09:53 Dose: 25 mg Clopidogrel Bisulfate (Plavix -) 75 mg PO DAILY [facility] Last Admin: 11/20/18 09:53 Dose: 75 mg Colchicine (Colcrys -) 0.6 mg PO BID [facility] Last Admin: 11/20/18 09:53 Dose: 0.6 mg Diltiazem HCl (Cardizem Cd -) 240 mg PO DAILY [facility] Last Admin: 11/20/18 09:53 Dose: 240 mg Diphenoxylate HCl/Atropine (Lomotil -) 1 combo PO Q8H PRN PRN Reason: DIARRHEA Donepezil HCl (Aricept -) 5 mg PO HS [facility] Last Admin: 11/19/18 23:01 Dose: 5 mg Dorzolamide HCl (Trusopt 2%) 1 drop OU BID [facility] Last Admin: 11/20/18 09:54 Dose: 1 drop Ergocalciferol (Drisdol -) 50,000 unit PO Q7D@1000 [facility] Ferrous Sulfate (Feosol -) 325 mg PO DAILY [facility] Last Admin: 11/20/18 09:53 Dose: 325 mg Furosemide (Lasix -) 40 mg PO DAILY [facility] Last Admin: 11/20/18 09:53 Dose: 40 mg Hydroxychloroquine Sulfate (Plaquenil -) 200 mg PO DAILY [facility] Last Admin: 11/20/18 09:54 Dose: 200 mg Insulin Aspart (Novolog Vial Sliding Scale -) 1 vial SQ [facility]; Protocol Last Admin: 11/20/18 12:20 Dose: Not Given Isosorbide Mononitrate (Imdur -) 30 mg PO DAILY [facility] Last Admin: 11/20/18 09:53 Dose: 30 mg Latanoprost (Xalatan 0.005% Eye Drops -) 1 drop OU HS [facility] Last Admin: 11/19/18 23:03 Dose: 1 drop Oxycodone HCl (Roxicodone -) 5 mg PO Q4H PRN PRN Reason: PAIN LEVEL 4 - 6 Last Admin: 11/20/18 10:00 Dose: 5 mg Oxycodone HCl (Roxicodone -) 10 mg PO Q6H PRN PRN Reason: PAIN LEVEL 7 - 10 Last Admin: 11/19/18 18:31 Dose: 10 mg Pantoprazole Sodium (Protonix -) 40 mg PO DAILY [facility] Last Admin: 11/20/18 09:53 Dose: 40 mg Rosuvastatin Calcium (Crestor -) 5 mg PO [facility] Last Admin: 11/19/18 23:08 Dose: 5 mg Sitagliptin Phosphate (Januvia -) 25 mg PO DAILY@0700 [facility] Last Admin: 11/20/18 06:37 Dose: Not Given Timolol Maleate (Timoptic 0.5%) 1 drop OU BID [facility] Last Admin: 11/20/18 09:54 Dose: 1 drop Valsartan (Diovan -) 80 mg PO BID [facility] Last Admin: 11/20/18 09:53 Dose: 80 mg Vancomycin HCl (Vancomycin Oral Solution) 125 mg PO Q6HPO [facility] Last Admin: 11/20/18 12:28 Dose: 125 mg - Objective Vital Signs: Vital Signs Temperature 98.7 F 11/20/18 06:34 Pulse Rate 60 11/20/18 06:34 Respiratory Rate 18 11/20/18 09:00 Blood Pressure 155/66 11/20/18 06:34 O2 Sat by Pulse Oximetry (%) 95 11/20/18 09:00 Constitutional: Yes: No Distress, Calm Cardiovascular: Yes: S1, S2 Respiratory: Yes: Regular, CTA Bilaterally Gastrointestinal: Yes: Normal Bowel Sounds, Soft Musculoskeletal: Yes: WNL Extremities: Yes: Other Neurological: Yes: Alert, Oriented Psychiatric: Yes: Alert, Oriented Labs: CBC, BMP 11/20/18 06:30 11/20/18 06:30 INR, PTT INR 2.37 (0.83-1.09) H 11/14/18 06:00 Assessment/Plan This is a 73 year old woman with a history of CVA with right hemiparesis, PAF, HTN, hyperlipdemia, CAD, GERD, colitis, PAD, renal artery stenosis, DVT, type 2 DM, AAA, pacemaker 1. Acute colitis, recurrent 2. Acute kidney injury on stage 3 CKD 3. CAD, history of stent 4. HTN 5. Hyperlipidemia 6. Paroxysmal atrial fibrillation 7. Type 2 diabetes mellitus 8. History of DVT, hypercoagulable state 9. PAD 10. Renal artery stenosis 11. AAA, history of repair 12. Right hemiparesis secondary to old CVA plan 'oral vanco for a total of 14 days monitor dirrhoea rest as per the team off of all abx now corset
[2018-11-20] MEDS: DONEPEZIL HCL 5 MG TABLET (FP) PO SCH (23:19)
[2018-11-20] MEDS: ROSUVASTATIN CA 5 MG TABLET (FP) PO SCH (23:19)
[2018-11-20] MEDS: LATANOPROST 0.005% OPHTH SOLN 2.5ML BOTTLE OU SCH (23:20)
[2018-11-20] MEDS: ALPRAZolam 0.25 MG TABLET PO SCH (23:21)
[2018-11-20 23:30] VITALS: PULSE 60
[2018-11-21 06:28] LABS: HEMATOCRIT 36.7 % (32.4-45.2); HEMOGLOBIN 11.9 GM/dL (10.7-15.3); MCH 30.3 pg (25.7-33.7); MCHC 32.5 g/dl (32.0-36.0); MEAN CELL VOLUME 93.2 fl (80-96); MEAN PLT VOLUME 9.1 fl (7.5-11.1); PLATELET COUNT 180 K/MM3 (134-434); RBC 3.94 M/mm3 (3.60-5.2); RDW 14.7 % (11.6-15.6); WHITE BLOOD COUNT 5.3 K/mm3 (4.0-10.0)
[2018-11-21] MEDS: INSULIN SLIDING SCALE (NOVOLOG) 1 VIAL SQ SCH ×2 (06:43→12:48)
[2018-11-21] MEDS: sitaGLIPtin PHOSPHATE 25 MG TABLET (FP) PO SCH (06:43)
[2018-11-21] MEDS: VANCOMYCIN 250 MG/5 ML ORAL SOLUTION PO SCH ×2 (06:45→12:51)
--- NOTE | 2018-11-21 08:28 | PN ---
GI Progress Note Subjective: Patient states feeling better. Denies abdominal pain or diarrhea. - Objective Vital Signs: Vital Signs Temperature 98.5 F 11/21/18 07:23 Pulse Rate 60 11/21/18 07:23 Respiratory Rate 17 11/21/18 07:23 Blood Pressure 152/76 11/21/18 07:23 O2 Sat by Pulse Oximetry (%) 95 11/20/18 21:00 Constitutional: Well Nourished, No Distress, Calm Eyes: Yes: Conjunctiva Clear Cardiovascular: Yes: Regular Rate and Rhythm Respiratory: Yes: Regular, CTA Bilaterally Gastrointestinal Inspection: Yes: WNL ...Auscultate: Yes: Normoactive Bowel Sounds ...Palpate: Yes: Soft Labs: CBC, BMP 11/21/18 05:00 11/20/18 06:30 INR, PTT INR 2.37 (0.83-1.09) H 11/14/18 06:00 Problem List - Problems (1) Colitis Code(s): K52.9 - NONINFECTIVE GASTROENTERITIS AND COLITIS, UNSPECIFIED (2) Ischemic colitis Code(s): K55.9 - VASCULAR DISORDER OF INTESTINE, UNSPECIFIED (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
--- NOTE | 2018-11-21 08:59 | PN ---
Progress Note, Physician Chief Complaint: no acute distress - Current Medication List Current Medications: Active Medications Acetaminophen (Tylenol -) 650 mg PO Q4H PRN PRN Reason: PAIN LEVEL 1 - 3 Last Admin: 11/16/18 10:03 Dose: 650 mg Alprazolam (Xanax -) 1.5 mg PO HS [facility] Last Admin: 11/20/18 23:21 Dose: 0.5 mg Apixaban (Eliquis -) 5 mg PO BID [facility] Last Admin: 11/20/18 23:18 Dose: 5 mg Calcium Carbonate (Os-Gino 500mg -) 500 mg PO DAILY [facility] Last Admin: 11/20/18 09:53 Dose: 500 mg Carvedilol (Coreg -) 25 mg PO BID [facility] Last Admin: 11/20/18 23:18 Dose: 25 mg Clopidogrel Bisulfate (Plavix -) 75 mg PO DAILY [facility] Last Admin: 11/20/18 09:53 Dose: 75 mg Colchicine (Colcrys -) 0.6 mg PO BID [facility] Last Admin: 11/20/18 23:18 Dose: 0.6 mg Diltiazem HCl (Cardizem Cd -) 240 mg PO DAILY [facility] Last Admin: 11/20/18 09:53 Dose: 240 mg Diphenoxylate HCl/Atropine (Lomotil -) 1 combo PO Q8H PRN PRN Reason: DIARRHEA Donepezil HCl (Aricept -) 5 mg PO HS [facility] Last Admin: 11/20/18 23:19 Dose: 5 mg Dorzolamide HCl (Trusopt 2%) 1 drop OU BID [facility] Last Admin: 11/20/18 23:20 Dose: 1 drop Ergocalciferol (Drisdol -) 50,000 unit PO Q7D@1000 [facility] Ferrous Sulfate (Feosol -) 325 mg PO DAILY [facility] Last Admin: 11/20/18 09:53 Dose: 325 mg Furosemide (Lasix -) 40 mg PO DAILY [facility] Last Admin: 11/20/18 09:53 Dose: 40 mg Hydroxychloroquine Sulfate (Plaquenil -) 200 mg PO DAILY [facility] Last Admin: 11/20/18 09:54 Dose: 200 mg Insulin Aspart (Novolog Vial Sliding Scale -) 1 vial SQ ACHS [facility]; Protocol Last Admin: 11/21/18 06:43 Dose: Not Given Isosorbide Mononitrate (Imdur -) 30 mg PO DAILY [facility] Last Admin: 11/20/18 09:53 Dose: 30 mg Latanoprost (Xalatan 0.005% Eye Drops -) 1 drop OU HS [facility] Last Admin: 11/20/18 23:20 Dose: 1 drop Oxycodone HCl (Roxicodone -) 5 mg PO Q4H PRN PRN Reason: PAIN LEVEL 4 - 6 Last Admin: 11/20/18 10:00 Dose: 5 mg Oxycodone HCl (Roxicodone -) 10 mg PO Q6H PRN PRN Reason: PAIN LEVEL 7 - 10 Last Admin: 11/20/18 17:44 Dose: 10 mg Pantoprazole Sodium (Protonix -) 40 mg PO DAILY [facility] Last Admin: 11/20/18 09:53 Dose: 40 mg Rosuvastatin Calcium (Crestor -) 5 mg PO HS [facility] Last Admin: 11/20/18 23:19 Dose: 5 mg Sitagliptin Phosphate (Januvia -) 25 mg PO DAILY@0700 [facility] Last Admin: 11/21/18 06:43 Dose: Not Given Timolol Maleate (Timoptic 0.5%) 1 drop OU BID [facility] Last Admin: 11/20/18 23:20 Dose: 1 drop Valsartan (Diovan -) 80 mg PO BID [facility] Last Admin: 11/20/18 23:18 Dose: 80 mg Vancomycin HCl (Vancomycin Oral Solution) 125 mg PO Q6HPO [facility] Last Admin: 11/21/18 06:45 Dose: 125 mg - Objective Vital Signs: Vital Signs Temperature 98.5 F 11/21/18 07:23 Pulse Rate 60 11/21/18 07:23 Respiratory Rate 17 11/21/18 07:23 Blood Pressure 152/76 11/21/18 07:23 O2 Sat by Pulse Oximetry (%) 95 11/20/18 21:00 Constitutional: Yes: No Distress, Calm Cardiovascular: Yes: Pulse Irregular (paced) Respiratory: Yes: CTA Bilaterally Gastrointestinal: Yes: Soft (NT) Edema: Yes Edema: LLE: 1+, RLE: 1+ Neurological: Yes: Alert Labs: CBC, BMP 11/21/18 05:00 11/20/18 06:30 INR, PTT INR 2.37 (0.83-1.09) H 11/14/18 06:00 Laboratory Tests 11/20/18 11/21/18 06:30 05:00 WBC 5.3 Hgb 11.9 Plt Count 180 Sodium 143 Potassium 3.4 L Creatinine 1.2 - ....Imaging EKG: Image Reviewed Assessment/Plan IMP: Nonspecific Colitis Equivocal Lupus Anticoagulant AB, followed by Rheum and Brianna at [facility] Prior CVA AF s/p PPM maintained on Eliquis Prior DVT HTN Renal artery stenosis CKD Hx of pericardial effusion- treated Chronic diastolic CHF AAA s/p EVAR T. O CHELSY, moderate LICA stenosis. Vascular Dementia REC: Case d/w Vascular Surgery- while EVAR repair can lead to colitis due to compromise of mesenteric arteries, this usually occurs soon after procedure. In addition, the current impression is that this does not represent an ischemic colitis based on distribution. 1. Eliquis resumed as colonoscopy not planned this admission. See GI notes. 2. Continue home BP/CHF regimen: Carvedilol, ARB, Lasix. 3. Follow renal fxn closely while PO intake may be reduced, replete lytes 4. Continue Plavix (if OK w/ GI)- remote hx PCI and prior CVA; Crestor.
[2018-11-21] MEDS: VALSARTAN 80 MG TABLET (UD) PO SCH (09:19)
[2018-11-21] MEDS: FERROUS SO4 325 MG TABLET (FP) PO SCH (09:20)
[2018-11-21] MEDS: CARVEDILOL 25 MG TABLET (FP) PO SCH (09:20)
[2018-11-21] MEDS: COLCHICINE 0.6 MG TABLET (FP) PO SCH (09:20)
[2018-11-21] MEDS: ISOSORBIDE MONONITRATE 30 MG TAB.SR.24H (FP) PO SCH (09:20)
[2018-11-21] MEDS: CLOPIDOGREL BISULFATE 75 MG TABLET (FP) PO SCH (09:20)
[2018-11-21] MEDS: APIXABAN 5 MG TABLET PO SCH (09:20)
[2018-11-21] MEDS: CALCIUM (OYSTER SHELL) 500 MG TABLET (FP) PO SCH (09:20)
[2018-11-21] MEDS: PANTOPRAZOLE 40 MG TABLET (FP) PO SCH (09:20)
[2018-11-21] MEDS: FUROSEMIDE 40 MG TABLET (FP) PO SCH (09:20)
[2018-11-21] MEDS: HYDROXYCHLOROQUINE SO4 200 MG TABLET (FP) PO SCH (09:21)
[2018-11-21] MEDS: TIMOLOL 0.5% OPHTHALMIC SOL 5 ML BOTTLE OU SCH (09:21)
[2018-11-21] MEDS: DORZOLAMIDE 2% HCL OPHTHALMIC SOLUTION 10 ML BOTTLE OU SCH (09:21)
--- NOTE | 2018-11-21 09:21 | PN ---
Progress Note (short form) - Note Progress Note: Neurology History of Present Illness 73 yo F, h/o HTN, HLD, CHF, afib on eliquis, pericarditis, AAA, PPM, CVA w/ R sided deficits, uti, colitis. Presented to ER with complaints of watery diarrhea , nausea vomiting and abdominal pain that started several days prior to admission.. No BRBPR, melena, f/c. Pt s/p admission for similar symptoms > 6 months ago w/ pancolitis on CT. Cdiff and other stool studies negative per records. Pt had received vanco/levaquin in ER and discharged to [place] with doxycycline 6 months ago. Consulted for lumbar spine fracture as noted. NSGY note reviewed and chronic L2 compression fracture, also consider involvement of L5. Mentions possible vertebroplasty, family at bedside yesterday and discussed , for now conservative care may be best. Though defer to NSGY regarding intervention, family is considering all options. Discussed with family 11/19 and 11/20, plan is for possible discharge today and outpatient follow up with surgeon with possibly xray evaluation. Patient pain improving with oxycodone, she is comfortable appearing. Neurologically no new deficits or events. Allergies Allergy/AdvReac Type Severity Reaction Status Date / Time aspirin Allergy Severe Verified 11/09/18 11:56 Penicillins Allergy Severe Verified 11/09/18 11:56 diclofenac Allergy Verified 11/09/18 11:56 shellfish derived Allergy Verified 11/09/18 11:56 lactose AdvReac Verified 11/09/18 11:56 peanut Allergy Unknown Rash Uncoded 11/09/18 11:56 iv contrast Allergy Uncoded 11/09/18 11:56 Active Medications Acetaminophen (Tylenol -) 650 mg PO Q4H PRN PRN Reason: PAIN LEVEL 1 - 3 Last Admin: 11/16/18 10:03 Dose: 650 mg Alprazolam (Xanax -) 1.5 mg PO HS [facility] Last Admin: 11/20/18 23:21 Dose: 0.5 mg Apixaban (Eliquis -) 5 mg PO BID [facility] Last Admin: 11/20/18 23:18 Dose: 5 mg Calcium Carbonate (Os-Gino 500mg -) 500 mg PO DAILY [facility] Last Admin: 11/20/18 09:53 Dose: 500 mg Carvedilol (Coreg -) 25 mg PO BID [facility] Last Admin: 11/20/18 23:18 Dose: 25 mg Clopidogrel Bisulfate (Plavix -) 75 mg PO DAILY [facility] Last Admin: 11/20/18 09:53 Dose: 75 mg Colchicine (Colcrys -) 0.6 mg PO BID [facility] Last Admin: 11/20/18 23:18 Dose: 0.6 mg Diltiazem HCl (Cardizem Cd -) 240 mg PO DAILY [facility] Last Admin: 11/20/18 09:53 Dose: 240 mg Diphenoxylate HCl/Atropine (Lomotil -) 1 combo PO Q8H PRN PRN Reason: DIARRHEA Donepezil HCl (Aricept -) 5 mg PO HS [facility] Last Admin: 11/20/18 23:19 Dose: 5 mg Dorzolamide HCl (Trusopt 2%) 1 drop OU BID [facility] Last Admin: 11/20/18 23:20 Dose: 1 drop Ergocalciferol (Drisdol -) 50,000 unit PO Q7D@1000 [facility] Ferrous Sulfate (Feosol -) 325 mg PO DAILY [facility] Last Admin: 11/20/18 09:53 Dose: 325 mg Furosemide (Lasix -) 40 mg PO DAILY [facility] Last Admin: 11/20/18 09:53 Dose: 40 mg Hydroxychloroquine Sulfate (Plaquenil -) 200 mg PO DAILY [facility] Last Admin: 11/20/18 09:54 Dose: 200 mg Insulin Aspart (Novolog Vial Sliding Scale -) 1 vial SQ [facility]; Protocol Last Admin: 11/21/18 06:43 Dose: Not Given Isosorbide Mononitrate (Imdur -) 30 mg PO DAILY [facility] Last Admin: 11/20/18 09:53 Dose: 30 mg Latanoprost (Xalatan 0.005% Eye Drops -) 1 drop OU HS [facility] Last Admin: 11/20/18 23:20 Dose: 1 drop Oxycodone HCl (Roxicodone -) 5 mg PO Q4H PRN PRN Reason: PAIN LEVEL 4 - 6 Last Admin: 11/20/18 10:00 Dose: 5 mg Oxycodone HCl (Roxicodone -) 10 mg PO Q6H PRN PRN Reason: PAIN LEVEL 7 - 10 Last Admin: 11/20/18 17:44 Dose: 10 mg Pantoprazole Sodium (Protonix -) 40 mg PO DAILY [facility] Last Admin: 11/20/18 09:53 Dose: 40 mg Rosuvastatin Calcium (Crestor -) 5 mg PO HS [facility] Last Admin: 11/20/18 23:19 Dose: 5 mg Sitagliptin Phosphate (Januvia -) 25 mg PO DAILY@0700 [facility] Last Admin: 11/21/18 06:43 Dose: Not Given Timolol Maleate (Timoptic 0.5%) 1 drop OU BID [facility] Last Admin: 11/20/18 23:20 Dose: 1 drop Valsartan (Diovan -) 80 mg PO BID [facility] Last Admin: 11/20/18 23:18 Dose: 80 mg Vancomycin HCl (Vancomycin Oral Solution) 125 mg PO Q6HPO [facility] Last Admin: 11/21/18 06:45 Dose: 125 mg *Physical Exam Vital Signs Period Temp Pulse Resp BP Sys/Nowak Pulse Ox Last 24 Hr 97.8 F-98.5 F 60-62 16-18 131-153/54-76 95 GENERAL: The patient is awake, alert, and fully oriented HEAD: Normal with no signs of trauma. EYES: PERRL, extraocular movements intact, sclera anicteric, conjunctiva clear. No ptosis. ENT: Ears normal, nares patent, oropharynx clear without exudates, moist mucous membranes. NECK: Trachea midline, full range of motion, supple. LUNGS: Breath sounds equal, clear to auscultation bilaterally HEART: Regular rate and rhythm ABDOMEN: Soft, nontender, nondistended, normoactive bowel sounds, bruising on lower abdomen - tolerating diet EXTREMITIES: 2+ pulses, warm, well-perfused, no edema. NEUROLOGICAL: Normal speech, Cn intact, moves extremities grossly, limited on confrontation testing, sensory slightly reduced to PP PSYCH: Normal mood, normal affect. SKIN: Warm, dry, normal turgor, no rashes or lesions noted Laboratory Value CBCD WBC 5.3 K/mm3 (4.0-10.0) 11/21/18 05:00 RBC 3.94 M/mm3 (3.60-5.2) 11/21/18 05:00 Hgb 11.9 GM/dL (10.7-15.3) 11/21/18 05:00 Hct 36.7 % (32.4-45.2) 11/21/18 05:00 MCV 93.2 fl (80-96) 11/21/18 05:00 MCHC 32.5 g/dl (32.0-36.0) 11/21/18 05:00 RDW 14.7 % (11.6-15.6) 11/21/18 05:00 Plt Count 180 K/MM3 (134-434) 11/21/18 05:00 MPV 9.1 fl (7.5-11.1) 11/21/18 05:00 CMP Sodium 143 mmol/L (136-145) 11/20/18 06:30 Potassium 3.4 mmol/L (3.5-5.1) L 11/20/18 06:30 Chloride 111 mmol/L (98-107) H 11/20/18 06:30 Carbon Dioxide 27 mmol/L (21-32) 11/20/18 06:30 Anion Gap 6 MMOL/L (8-16) L 11/20/18 06:30 BUN 8 mg/dL (7-18) 11/20/18 06:30 Creatinine 1.2 mg/dL (0.55-1.3) 11/20/18 06:30 Creat Clearance w eGFR 43.91 (>60) 11/20/18 06:30 Random Glucose 104 mg/dL (74-106) 11/20/18 06:30 Calcium 9.1 mg/dL (8.5-10.1) 11/20/18 06:30 Total Bilirubin 0.4 mg/dL (0.2-1) 11/20/18 06:30 AST 44 U/L (15-37) H 11/20/18 06:30 ALT 31 U/L (13-61) 11/20/18 06:30 Alkaline Phosphatase 124 U/L (45-117) H 11/20/18 06:30 Total Protein 5.4 g/dl (6.4-8.2) L 11/20/18 06:30 Albumin 2.6 g/dl (3.4-5.0) L 11/20/18 06:30 CT L spine reviewed 11/09/18 13:00 73 yo F, h/o HTN, HLD, CHF, afib on eliquis, pericarditis, AAA, PPM, CVA w/ R sided deficits, uti, colitis. Presented to ER with complaints of watery diarrhea , nausea vomiting and abdominal pain that started several days prior to admission.. No BRBPR, melena, f/c. Pt s/p admission for similar symptoms > 6 months ago w/ pancolitis on CT. Cdiff and other stool studies negative per records. Pt had received vanco/levaquin in ER and discharged to [place] with doxycycline 6 months ago. Consulted for lumbar spine fracture as noted. NSGY note reviewed and chronic L2 compression fracture, also consider involvement of L5. Mentions possible vertebroplasty, family at bedside during examination yesterday and discussed, for now conservative care may be best. Though defer to NSGY regarding intervention, family is considering all options. Discussed again with family, plan is for possible discharge today and outpatient follow up with surgeon with possibly xray evaluation. Patient pain improving with oxycodone, she is comfortable appearing. Agree with brace, physical therapy as tolerated. Fall precautions, avoid any further aggrevation of lower back. Stable at this time. Discussed with hospitalist this AM and in agreement with plan.
[2018-11-21 09:29] VITALS: BP 155/66; TEMP 98.2
[2018-11-21] MEDS: oxyCODONE HCL 5 MG TABLET PO PRN (10:32)
--- NOTE | 2018-11-21 14:55 | DS ---
Physical Exam: SUBJECTIVE: Patient seen and examined at the bedside. Both her daughters are in room and discharge instructions discussed with them. Asked them to call me with questions. phone number provided. Patient tells me she feels well, wants to go home and get rehab at home. Does not want to go to rehab facility because she felt it did not help her in the past and instead she fell twice during rehab. She will follow up outpatient with her PCP and with Dr. Delacruz. She will also follow up with Dr. Stuart for possible surgical option of her L spine pain/ fracture. OBJECTIVE: discharge home. Vital Signs Period Temp Pulse Resp BP Sys/[place]ak Pulse Ox Last 24 Hr 97.8 F-98.5 F 60-62 16-18 131-155/54-76 95-95 PHYSICAL EXAM GENERAL: The patient is awake, alert, and fully oriented HEAD: Normal with no signs of trauma. EYES: PERRL, extraocular movements intact, sclera anicteric, conjunctiva clear. No ptosis. ENT: Ears normal, nares patent, oropharynx clear without exudates, moist mucous membranes. NECK: Trachea midline, full range of motion, supple. LUNGS: Breath sounds equal, clear to auscultation bilaterally HEART: Regular rate and rhythm ABDOMEN: Soft, nontender, nondistended, normoactive bowel sounds, bruising on lower abdomen - tolerating diet EXTREMITIES: 2+ pulses, warm, well-perfused, no edema. NEUROLOGICAL: Normal speech, gait not observed. PSYCH: Normal mood, normal affect. SKIN: Warm, dry, normal turgor, no rashes or lesions noted LABS Laboratory Results - last 24 hr 11/20/18 11/20/18 11/21/18 16:37 23:15 05:00 WBC 5.3 RBC 3.94 Hgb 11.9 Hct 36.7 MCV 93.2 MCH 30.3 MCHC 32.5 RDW 14.7 Plt Count 180 MPV 9.1 PTT (Actin FS) POC Glucometer 198 75 11/21/18 11/21/18 11/21/18 05:00 05:47 10:57 WBC RBC Hgb Hct MCV MCH MCHC RDW Plt Count MPV PTT (Actin FS) 34.1 POC Glucometer 96 228 HOSPITAL COURSE: Date of Admission:11/09/18 Date of Discharge: 11/21/18 Patient is a 73 year old female with a significant past medical history of HTN, HLD, CHF, afib on eliquis, pericarditis, AAA, PPM, CVA w/ R sided deficits, uti and colitis. She was admitted on 11/09/18 for NB, watery diarrhea w/ n/v and abd pain. Patient also has hx of MRSA UTI. Hospital course by problem list: GI: Acute colitis. resolved Being followed by GI. On low fiber diet, which she is tolerating. no colonoscopy planned per GI. She will follow up outpatient with Dr. Delacruz. Started on Imdur. Cdiff: On vanco po q6 (will need vanco x a total of 14 days-started on 11/10/18). - vanco 125mg qid called into her pharmacy. Renal: VILLA on CKD stage 4, chronic Hypokalemia, resolved Hypomagnessemia, resolved Cardiology. Paroxysmal Atrial fibrillation. On Eliquis bid, coreq, dilitazem, furosemide. Her eliquis dose has been increased to Eliquis 5mg twice daily from Eliquis 2.5mg BID. Medication called into her pharmacy. She will need cardiology follow up outpatient. Hypertension, chronic/stable. On coreq Endocrine: Type 2 diabetes mellitus. chronic. restart home medications. Daughter checks glucose levels twice per day. Muscular skeletal Back pain, acute. seen by neuro and neurosurgery and options given to patient and family. Prescriptions given for lumbar spine brace. surgical options to be explored outpatient with Dr. Stuart. repeat back xray in 3 weeks (lumbar spine xray). Pain management with oxycodone 5 and oxycodone 10. Heme: History of DVT, hypercoagulable state. on eliquis. discharge home. Minutes to complete discharge: 60 Discharge Summary Reason For Visit: COLITIS Current Active Problems Colitis (Acute) Intestinal angina (Acute) Ischemic colitis (Acute) Condition: Fair - Instructions Diet, Activity, Other Instructions: Mrs Burnette. You were admitted to [facility] for abdominal pain. We also did an xray that showed that you have an L5 fracture. Here are our recommendations: Abdominal pain. Your abdominal pain has improved. You are now on a low fiber diet. Please follow up with Dr. Delacruz. Please call his office for an appointment. Clostridium Difficile You have C diff and we started you on Vancomycin every 6 hours (4 times per day ) You need this medication for a total of 14 days. We started giving you this medication on 11/10/2018. Your last dose will be on 11/24/2018 to complete a 14 day course. Take every 6 hours. Irregular heart rate. You are on Eliquis 5mg twice per day. continue the Coreq, Cardizem and Furosemide. Type 2 diabetes mellitus. continue your home medications. Back pain. You may need a brace for mobility to help ease pain. surgical options to be explored outpatient with Dr. Stuart. repeat back xray in 3 weeks with your primary care doctor.. Pain management with oxycodone 5mg as needed. Thank you for allowing us to care for you. Please call me with any questions that you may have. Linh Bosch Nitin, SENIOR ENVIRONMENTAL ENGINEER [phone] [facility] @ [facility] Referrals: Demar Storey MD [Staff Physician] - 2 Weeks (chute operator) Vinod Delacruz MD [Staff Physician] - Ivan Stuart MD [Staff Physician] - 3 Weeks Sony Johnson MD [Staff Physician] - 1 Week Disposition: HOME - Home Medications Comprehensive Discharge Medication List: Ambulatory Orders Alprazolam 1.5 mg PO HS 11/09/18 Carvedilol [Coreg -] 25 mg PO BID 11/09/18 Clopidogrel Bisulfate [Plavix] 75 mg PO DAILY 11/09/18 Colchicine [Colcrys -] 0.6 mg PO BID 11/09/18 Diltiazem HCl [Diltiazem 24Hr Cd] 240 mg PO DAILY 11/09/18 Donepezil HCl [Aricept] 5 mg PO DAILY 11/09/18 Dorzolamide HCl [Trusopt 2% -] 1 drop OU BID 11/09/18 Ferrous Sulfate 325 mg PO DAILY 11/09/18 Furosemide [Lasix -] 40 mg PO DAILY 11/09/18 Hydroxychloroquine Sulfate [Plaquenil] 200 mg PO DAILY 11/09/18 Latanoprost 1 drop OU HS 11/09/18 Linagliptin/Metformin HCl [Jentadueto 2.5 mg-500 mg Tab] 1 each PO BID 11/09/18 Multivitamin [Multiple Vitamins] 1 each PO DAILY 11/09/18 Ondansetron [Zofran -] 4 mg PO DAILY 11/09/18 Pantoprazole Sodium 40 mg PO DAILY 11/09/18 Rosuvastatin [Crestor -] 5 mg PO HS 11/09/18 Timolol [Betimol] 1 drop OU BID 11/09/18 Ubidecarenone [Co Q-10] 0 mg PO DAILY 11/09/18 Apixaban [Eliquis -] 5 mg PO BID #60 tablet 11/21/18 Calcium (Oyster Shell) [Os-Gino 500MG -] 500 mg PO DAILY #60 tablet 11/21/18 Ergocalciferol [Vitamin D2] 50,000 unit PO Q7D@1000 #30 capsule 11/21/18 Isosorbide Mononitrate [Imdur -] 30 mg PO DAILY #60 tab.sr.24h 11/21/18 Oxycodone HCl 5 mg PO BID #20 tablet MDD 2 11/21/18 Valsartan [Diovan] 80 mg PO BID #60 tablet 11/21/18 Vancomycin HCl 125 mg PO QID #16 capsule 11/21/18 oxyCODONE HCL [Roxicodone -] 5 mg PO Q4H PRN #20 tablet MDD 3 11/21/18 This patient is new to me today: No Emergency Visit: Yes ED Registration Date: 11/09/18 Care time: The patient presented to the Emergency Department on the above date and was hospitalized for further evaluation of their emergent condition. Critical Care patient: No - Discharge Referral Referred to [facility] No
--- NOTE | 2018-11-21 15:18 | PN ---
Progress Note, Physician History of Present Illness: stable doing well neurosurg seen the patient advised corset - Current Medication List Current Medications: Active Medications Acetaminophen (Tylenol -) 650 mg PO Q4H PRN PRN Reason: PAIN LEVEL 1 - 3 Last Admin: 11/16/18 10:03 Dose: 650 mg Alprazolam (Xanax -) 1.5 mg PO HS [facility] Last Admin: 11/20/18 23:21 Dose: 0.5 mg Apixaban (Eliquis -) 5 mg PO BID [facility] Last Admin: 11/21/18 09:20 Dose: 5 mg Calcium Carbonate (Os-Gino 500mg -) 500 mg PO DAILY [facility] Last Admin: 11/21/18 09:20 Dose: 500 mg Carvedilol (Coreg -) 25 mg PO BID [facility] Last Admin: 11/21/18 09:20 Dose: 25 mg Clopidogrel Bisulfate (Plavix -) 75 mg PO DAILY [facility] Last Admin: 11/21/18 09:20 Dose: 75 mg Colchicine (Colcrys -) 0.6 mg PO BID [facility] Last Admin: 11/21/18 09:20 Dose: 0.6 mg Diltiazem HCl (Cardizem Cd -) 240 mg PO DAILY [facility] Last Admin: 11/21/18 09:20 Dose: 240 mg Diphenoxylate HCl/Atropine (Lomotil -) 1 combo PO Q8H PRN PRN Reason: DIARRHEA Donepezil HCl (Aricept -) 5 mg PO HS [facility] Last Admin: 11/20/18 23:19 Dose: 5 mg Dorzolamide HCl (Trusopt 2%) 1 drop OU BID [facility] Last Admin: 11/21/18 09:21 Dose: 1 drop Ergocalciferol (Drisdol -) 50,000 unit PO Q7D@1000 [facility] Ferrous Sulfate (Feosol -) 325 mg PO DAILY [facility] Last Admin: 11/21/18 09:20 Dose: 325 mg Furosemide (Lasix -) 40 mg PO DAILY [facility] Last Admin: 11/21/18 09:20 Dose: 40 mg Hydroxychloroquine Sulfate (Plaquenil -) 200 mg PO DAILY [facility] Last Admin: 11/21/18 09:21 Dose: 200 mg Insulin Aspart (Novolog Vial Sliding Scale -) 1 vial SQ [facility]; Protocol Last Admin: 11/21/18 12:48 Dose: 4 units Isosorbide Mononitrate (Imdur -) 30 mg PO DAILY [facility] Last Admin: 11/21/18 09:20 Dose: 30 mg Latanoprost (Xalatan 0.005% Eye Drops -) 1 drop OU HS [facility] Last Admin: 11/20/18 23:20 Dose: 1 drop Oxycodone HCl (Roxicodone -) 5 mg PO Q4H PRN PRN Reason: PAIN LEVEL 4 - 6 Last Admin: 11/21/18 10:32 Dose: 5 mg Oxycodone HCl (Roxicodone -) 10 mg PO Q6H PRN PRN Reason: PAIN LEVEL 7 - 10 Last Admin: 11/20/18 17:44 Dose: 10 mg Pantoprazole Sodium (Protonix -) 40 mg PO DAILY [facility] Last Admin: 11/21/18 09:20 Dose: 40 mg Rosuvastatin Calcium (Crestor -) 5 mg PO [facility] Last Admin: 11/20/18 23:19 Dose: 5 mg Sitagliptin Phosphate (Januvia -) 25 mg PO DAILY@0700 [facility] Last Admin: 11/21/18 06:43 Dose: Not Given Timolol Maleate (Timoptic 0.5%) 1 drop OU BID [facility] Last Admin: 11/21/18 09:21 Dose: 1 drop Valsartan (Diovan -) 80 mg PO BID [facility] Last Admin: 11/21/18 09:19 Dose: 80 mg Vancomycin HCl (Vancomycin Oral Solution) 125 mg PO Q6HPO [facility] Last Admin: 11/21/18 12:51 Dose: 125 mg - Objective Vital Signs: Vital Signs Temperature 98.2 F 11/21/18 09:00 Pulse Rate 60 11/21/18 09:00 Respiratory Rate 17 11/21/18 09:00 Blood Pressure 155/66 11/21/18 09:00 O2 Sat by Pulse Oximetry (%) 95 11/21/18 09:00 Constitutional: Yes: No Distress, Calm Cardiovascular: Yes: Regular Rate and Rhythm Respiratory: Yes: Regular, CTA Bilaterally Gastrointestinal: Yes: Normal Bowel Sounds, Soft Musculoskeletal: Yes: WNL Extremities: Yes: Other Neurological: Yes: Alert, Oriented Psychiatric: Yes: Alert, Oriented Labs: CBC, BMP 11/21/18 05:00 11/20/18 06:30 INR, PTT INR 2.37 (0.83-1.09) H 11/14/18 06:00 Assessment/Plan This is a 73 year old woman with a history of CVA with right hemiparesis, PAF, HTN, hyperlipdemia, CAD, GERD, colitis, PAD, renal artery stenosis, DVT, type 2 DM, AAA, pacemaker 1. Acute colitis, recurrent 2. Acute kidney injury on stage 3 CKD 3. CAD, history of stent 4. HTN 5. Hyperlipidemia 6. Paroxysmal atrial fibrillation 7. Type 2 diabetes mellitus 8. History of DVT, hypercoagulable state 9. PAD 10. Renal artery stenosis 11. AAA, history of repair 12. Right hemiparesis secondary to old CVA plan 'oral vanco for a total of 14 days monitor dirrhoea rest as per the team off of all abx now corset finish abx course
[2018-11-26] MEDS ORDERED: ERGOCALCIFEROL (VITAMIN D2) 50,000 UNIT CAPSULE (FP) PO SCH (10:00)
== END 2018-11-21 16:59 | disposition home health service (06) | DRG 372 ==
LOC: JER 11:36 → JERBED 15:15 → J4S 20:31
PROVIDERS: ADMIT Internal Medicine; ATTEND Nurse Practitioner Family
DX: A04.72 Enterocolitis due to Clostridium difficile, not specified as recurrent (principal); I69.351 Hemiplegia and hemiparesis following cerebral infarction affecting right dominant side; D68.61 Antiphospholipid syndrome; N17.9 Acute kidney failure, unspecified; I13.0 Hypertensive heart and chronic kidney disease with heart failure and stage 1 through stage 4 chronic kidney disease, or unspecified chronic kidney disease; I50.32 Chronic diastolic (congestive) heart failure; M48.56XA Collapsed vertebra, not elsewhere classified, lumbar region, initial encounter for fracture; N18.4 Chronic kidney disease, stage 4 (severe); K55.1 Chronic vascular disorders of intestine; Z79.01 Long term (current) use of anticoagulants; E78.5 Hyperlipidemia, unspecified; K21.9 Gastro-esophageal reflux disease without esophagitis; Z88.0 Allergy status to penicillin; I48.0 Paroxysmal atrial fibrillation; E11.22 Type 2 diabetes mellitus with diabetic chronic kidney disease; Z95.0 Presence of cardiac pacemaker; E11.51 Type 2 diabetes mellitus with diabetic peripheral angiopathy without gangrene; Z79.84 Long term (current) use of oral hypoglycemic drugs; E86.0 Dehydration; D64.9 Anemia, unspecified; I70.1 Atherosclerosis of renal artery; E87.6 Hypokalemia; E83.42 Hypomagnesemia; F01.50 Vascular dementia, unspecified severity, without behavioral disturbance, psychotic disturbance, mood disturbance, and anxiety; M81.0 Age-related osteoporosis without current pathological fracture; M85.80 Other specified disorders of bone density and structure, unspecified site
CPT/HCPCS: 36415; 71045-TC-FY; 72100-TC-FY; 74176-TC; 80048; 80053; 81003; 81015; 82272; 82962; 83540; 83690; 83735; 83993; 84100; 84132; 85025; 85027; 85610; 85730; 87045; 87046; 87086; 87205; 87324; 87449; 87493; 93005; 93010; 97116-GP; 97161-GP; 99281-25; J0131; J1644; J7030

== ENCOUNTER 2019-08-14 20:13 | Inpatient (IN) | payer OTHER ==
--- NOTE | 2019-08-14 21:07 | PDOC ---
Attending Attestation - Resident Resident Name: Juan DiegoIvan moreno - ED Attending Attestation I have performed the following: I have examined & evaluated the patient, The case was reviewed & discussed with the resident, I agree w/resident's findings & plan - HPI HPI: 08/15/19 00:12 agree with resident hpi - Physicial Exam PE: 08/15/19 00:13 agree with resident exam - Medical Decision Making 08/15/19 00:13 74-year-old female with fever and altered mental status Plan for sepsis evaluation Meropenem and vancomycin initiated based on previous urine cultures and clinical presentation plan for US RUQ/CT scan brain, CAP admit
[2019-08-14] MEDS ORDERED: VANCOMYCIN 1 GM in D5W (PRE-DOCKED) 1,000 MG/250 ML IVPB ONE (21:47)
[2019-08-14] MEDS ORDERED: MEROPENEM 1 GM in DEXTROSE 5%-WATER 100 ML IVPB ONE (21:47)
[2019-08-14] MEDS ORDERED: ACETAMINOPHEN 1000 MG/100 ML VIAL (NON FORMULARY) IVPB ONE (21:50)
[2019-08-14] MEDS ORDERED: SODIUM CHLORIDE 1,000 ML IV STA (21:50)
[2019-08-14 21:58] LABS: BASO % 0.3 % (0-2.0); EOS % 0.3 % (0-4.5); HEMATOCRIT 38.1 % (32.4-45.2); HEMOGLOBIN 12.5 GM/dL (10.7-15.3); LYMPH % 8.4 % (8-40); MCH 30.8 pg (25.7-33.7); MCHC 32.9 g/dl (32.0-36.0); MEAN CELL VOLUME 93.7 fl (80-96); MEAN PLT VOLUME 8.8 fl (7.5-11.1); MONO % 7.9 % (3.8-10.2); NEUT % 83.1 % (42.8-82.8); PLATELET COUNT 182 K/MM3 (134-434); RBC 4.07 M/mm3 (3.60-5.2); RDW 12.7 % (11.6-15.6); WHITE BLOOD COUNT 6.5 K/mm3 (4.0-10.0)
[2019-08-14] MEDS ORDERED: MEROPENEM 1 GM VIAL (RESTRICTED TO ID) IVPB ONE (22:00)
[2019-08-14] MEDS ORDERED: VANCOMYCIN 1 GRAM (PRE-DOCKED) 1,000 MG/250 ML BAG IVPB ONE (22:00)
[2019-08-14] MEDS ORDERED: ACETAMINOPHEN INJECTION 100 ML IVPB ONE (22:00)
[2019-08-14 22:02] LABS: VENOUS PH 7.38 (7.31-7.41)
[2019-08-14 22:04] LABS: VENOUS PO2 < 49 mmHg (28-48)
[2019-08-14 22:15] LABS: EPI CELLS 0.7 /HPF (0-5/HPF); HYALINE CASTS 12 /lpf (0-8); PH,URINE 6.5 (5.0-8.0); URINE APPEARANCE CLOUDY; URINE BACTERIA >9000 /hpf (NEGATIVE); URINE BILIRUBIN NEGATIVE (NEGATIVE); URINE COLOR YELLOW; URINE GLUCOSE (UA) NEGATIVE (NEGATIVE); URINE KETONE NEGATIVE (NEGATIVE); URINE LEUK ESTERASE 3+ (NEGATIVE); URINE NITRITE NEGATIVE (NEGATIVE); URINE PROTEIN TRACE (NEGATIVE); URINE RBC 7 /hpf (0-4); URINE WBC 95 /hpf (0-5)
[2019-08-14 22:18] LABS: INR 1.78 (0.83-1.09); PROTHROMBIN TIME (PATIENT) 21.1 SEC (9.7-13.0)
[2019-08-14 22:21] LABS: ACTIVATED PTT 33.8 SECONDS (25.2-36.5)
[2019-08-14 22:29] LABS: ALBUMIN 3.5 g/dl (3.4-5.0); BILIRUBIN,TOTAL 1.5 mg/dL (0.2-1); BLOOD UREA NITROGEN 18.5 mg/dL (7-18); CALCIUM 9.5 mg/dL (8.5-10.1); CREATININE 1.7 mg/dL (0.55-1.3); POTASSIUM 4.2 mmol/L (3.5-5.1)
--- NOTE | 2019-08-14 22:33 | PDOC ---
History of Present Illness - General Stated Complaint: DIFF. BREATHING Time Seen by Provider: 08/14/19 21:06 History Source: Patient Exam Limitations: Clinical Condition - History of Present Illness Initial Comments: 08/14/19 21:51 Patient is a 74F with extensive medical history including ischemic colitis, AAA s/p repair at [facility], Lupus, pericarditis, DVT here today with LUQ abdominal pain and altered mental status. Patient is unable to give reliable history as she is altered. Family reports that patient had been doing well and was seen by Dr Delacruz, her GI physician today, where she was prescribed medications for gas and metronidazole for possible diarrhea. Unsure of exact reason for antibiotic prescription. Starting three hours before arrival to the ED, the patient became altered with the family reporting that she can't smile. Chart review shows history of MRSA and ESBL, previously treated with carbapenems. Past History - Past Medical History Allergies/Adverse Reactions: Allergies Allergy/AdvReac Type Severity Reaction Status Date / Time aspirin Allergy Severe Verified 11/09/18 11:56 Penicillins Allergy Severe Verified 11/09/18 11:56 diclofenac Allergy Verified 11/09/18 11:56 shellfish derived Allergy Verified 11/09/18 11:56 lactose AdvReac Verified 11/09/18 11:56 peanut Allergy Unknown Rash Uncoded 11/09/18 11:56 iv contrast Allergy Uncoded 11/09/18 11:56 Home Medications: Ambulatory Orders Alprazolam 1.5 mg PO HS 11/09/18 Carvedilol [Coreg -] 25 mg PO BID 11/09/18 Clopidogrel Bisulfate [Plavix] 75 mg PO DAILY 11/09/18 Colchicine [Colcrys] 0.6 mg PO BID 11/09/18 Diltiazem HCl [Diltiazem 24Hr Cd] 240 mg PO DAILY 11/09/18 Donepezil HCl [Aricept] 5 mg PO DAILY 11/09/18 Dorzolamide HCl [Trusopt 2% -] 1 drop OU BID 11/09/18 Ferrous Sulfate 325 mg PO DAILY 11/09/18 Furosemide [Lasix -] 40 mg PO DAILY 11/09/18 Hydroxychloroquine Sulfate [Plaquenil] 200 mg PO DAILY 11/09/18 Latanoprost 1 drop OU HS 11/09/18 Linagliptin/Metformin HCl [Jentadueto 2.5 mg-500 mg Tab] 1 each PO BID 11/09/18 Multivitamin [Multiple Vitamins] 1 each PO DAILY 11/09/18 Ondansetron [Zofran -] 4 mg PO DAILY 11/09/18 Pantoprazole Sodium 40 mg PO DAILY 11/09/18 Rosuvastatin [Crestor -] 5 mg PO HS 11/09/18 Timolol [Betimol] 1 drop OU BID 11/09/18 Ubidecarenone [Co Q-10] 0 mg PO DAILY 11/09/18 Apixaban [Eliquis -] 5 mg PO BID #60 tablet 11/21/18 Calcium (Oyster Shell) [Os-Gino 500MG -] 500 mg PO DAILY #60 tablet 11/21/18 Ergocalciferol [Vitamin D2] 50,000 unit PO Q7D@1000 #30 capsule 11/21/18 Isosorbide Mononitrate [Imdur -] 30 mg PO DAILY #60 tab.sr.24h 11/21/18 Oxycodone HCl 5 mg PO BID #20 tablet MDD 2 11/21/18 Valsartan [Diovan] 80 mg PO BID #60 tablet 11/21/18 Vancomycin HCl 125 mg PO QID #16 capsule 11/21/18 oxyCODONE HCL [Roxicodone -] 5 mg PO Q4H PRN #20 tablet MDD 3 11/21/18 Anemia: No Asthma: No Cardiac Disorders: Yes (PACEMAKER, AAA 5CM, AFIB, PERICARDITIS, PERICARDIAL EFFUSION) CVA: Yes (RIGHT ARM AND LEG WEAKNESS RESIDUAL) COPD: No CHF: Yes DVT: No Diabetes: Yes 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) GI Disorders: Yes (constipation, GERD,IBS) HTN: Yes Hypercholesterolemia: Yes Thyroid Disease: No - Surgical History Cardiac Surgery: Yes (PACEMAKER (2010) ; cath 09/24, AAA repair) - Immunization History Immunization Up to Date: Yes - Psycho Social/Smoking Cessation Hx Smoking History: Never smoked Have you smoked in the past 12 months: No Number of Cigarettes Smoked Daily: 5 If you are a former smoker, when did you quit?: 1993 Hx Alcohol Use: No Drug/Substance Use Hx: No Substance Use Type: None Hx Substance Use Treatment: No Review of Systems - Review of Systems Able to Perform ROS?: No (2/2 AMS) *Physical Exam - Physical Exam Comments: 08/14/19 22:59 GENERAL: Awake, alert, and oriented to self/place, reports year as 1977, warm to the touch HEAD: No signs of trauma, normocephalic, atraumatic EYES: PERRLA, EOMI, sclera anicteric, conjunctiva clear ENT: Auricles normal inspection, hearing grossly normal, nares patent, oropharynx clear without exudates. Moist mucosa NECK: Normal ROM, supple, no lymphadenopathy, JVD, or masses LUNGS: No distress, tachypneic, clear to auscultation bilaterally HEART: Regular rate and rhythm, normal S1 and S2, no murmurs, rubs or gallops, peripheral pulses normal and equal bilaterally. ABDOMEN: Soft, no focal tenderness, no grimacing on exam, no pain reported EXTREMITIES: Normal inspection, Normal range of motion, no edema. No clubbing or cyanosis. NEUROLOGICAL: Cranial nerves II through XII grossly intact. Normal speech, no focal sensorimotor deficits SKIN: Warm, Dry, normal turgor, no rashes or lesions noted. ED Treatment Course - LABORATORY CBC & Chemistry Diagram: 08/14/19 21:32 08/14/19 21:32 - RADIOLOGY Radiology Studies Ordered: Category Date Time Status ABDOMEN CTA W/WO CONTRAST [CT] Stat CT Scan 08/14/19 21:08 Ordered CHEST CTA [CT] Stat CT Scan 08/14/19 21:08 Ordered CHEST X-RAY PORTABLE* [RAD] Stat Radiology 08/14/19 21:08 Ordered Medical Decision Making - Medical Decision Making 08/14/19 23:00 Patient is 74F with extensive medical history including AAA s/p repair, DVT, pericarditis, ischemic colitis, lupus here today with AMS. Vitals notable for fever, bp and HR stable. Source unclear at this time, ddx includes but is not limited to: colitis, uti, cholangitis, pneumonia. Will evaluate with septic workup. PCN allergy, tolerated carbapenems in the past. Started on vanc, mary, 1L NS and 1g tylenol. Will CT head, abd/pelvis CTA. Labs notable for increased LFTs. UA positive for UTI. Cr <30, will change CTs to dry films. Will do US of RUQ. CXR shows no acute process. 08/15/19 00:49 CT and US show possibility of cholecystitis, Dr Gorman window air conditioner installer. 08/15/19 01:04 Case d/w Dr Gorman, NPO and abx for now. AC held. Case d/w Dr Goddard, accepted. Discharge - Discharge Information Problems reviewed: Yes Clinical Impression/Diagnosis: Cholecystitis Condition: Stable - Admission Yes - Follow up/Referral Referrals: Chris Johnson MD [Primary Care Provider] - - Patient Discharge Instructions - Post Discharge Activity
[2019-08-15] MEDS ORDERED: ONDANSETRON 4 MG/2 ML VIAL IVPUSH PRN (07:27)
[2019-08-15] MEDS: DEXTROSE 5%-0.45% SALINE 1,000 ML IV SCH ×2 (08:08→20:01)
[2019-08-15] MEDS ORDERED: MEROPENEM 1 GM in DEXTROSE 5%-WATER 100 ML IVPB SCH ×2 (09:00→10:00)
[2019-08-15] MEDS ORDERED: FERROUS SO4 325 MG TABLET (FP) PO SCH (10:00)
--- NOTE | 2019-08-15 10:39 | CONSULT ---
- Consultation REQUESTING PROVIDER: CONSULT REQUEST: We have been asked to surgically evaluate this patient for nausea/emesis. PCP:Sugar Goddard HISTORY OF PRESENT ILLNESS: The patient is a 74 yo female who presented to the ER for evaluation of her elevated LFTS possible acute cholecystitis. She was seen in the office of Dr Delacruz yesterday because the patient was having chronic issues with nausea, vomiting and diarrhea. Yesterday she had 2 episodes of non-bloody diarrhea. She then became very weak later in the day with difficulty standing and her family brought her to the ER for evaluation. 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 Right sided hemiplegia(able to move right foot but is weak, no function of her hand) from stroke 2000, afib, Left leg DVT PSHx: c section, endovascular AAA 2018, pacemaker Home Medications Medication Instructions Recorded Alprazolam 1.5 mg PO HS 11/09/18 Carvedilol [Coreg -] 25 mg PO BID 11/09/18 Clopidogrel Bisulfate [Plavix] 75 mg PO DAILY 11/09/18 Colchicine [Colcrys] 0.6 mg PO BID 11/09/18 Diltiazem HCl [Diltiazem 24Hr Cd] 240 mg PO DAILY 11/09/18 Donepezil HCl [Aricept] 5 mg PO DAILY 11/09/18 Dorzolamide HCl [Trusopt 2% -] 1 drop OU BID 11/09/18 Ferrous Sulfate 325 mg PO DAILY 11/09/18 Furosemide [Lasix -] 40 mg PO DAILY 11/09/18 Hydroxychloroquine Sulfate 200 mg PO DAILY 11/09/18 [Plaquenil] Latanoprost 1 drop OU HS 11/09/18 Linagliptin/Metformin HCl 1 each PO BID 11/09/18 [Jentadueto 2.5 mg-500 mg Tab] Multivitamin [Multiple Vitamins] 1 each PO DAILY 11/09/18 Ondansetron [Zofran -] 4 mg PO DAILY 11/09/18 Pantoprazole Sodium 40 mg PO DAILY 11/09/18 Rosuvastatin [Crestor -] 5 mg PO HS 11/09/18 Timolol [Betimol] 1 drop OU BID 11/09/18 Ubidecarenone [Co Q-10] 0 mg PO DAILY 11/09/18 Apixaban [Eliquis -] 5 mg PO BID #60 tablet 11/21/18 Calcium (Oyster Shell) [Os-Gino 500 mg PO DAILY #60 tablet 11/21/18 500MG -] Ergocalciferol [Vitamin D2] 50,000 unit PO Q7D@1000 #30 capsule 11/21/18 Isosorbide Mononitrate [Imdur -] 30 mg PO DAILY #60 tab.sr.24h 11/21/18 Oxycodone HCl 5 mg PO BID #20 tablet MDD 2 11/21/18 Valsartan [Diovan] 80 mg PO BID #60 tablet 11/21/18 Vancomycin HCl 125 mg PO QID #16 capsule 11/21/18 oxyCODONE HCL [Roxicodone -] 5 mg PO Q4H PRN #20 tablet MDD 3 11/21/18 Allergies Allergy/AdvReac Type Severity Reaction Status Date / Time aspirin Allergy Severe Verified 11/09/18 11:56 Penicillins Allergy Severe Verified 11/09/18 11:56 diclofenac Allergy Verified 11/09/18 11:56 shellfish derived Allergy Verified 11/09/18 11:56 lactose AdvReac Verified 11/09/18 11:56 peanut Allergy Unknown Rash Uncoded 11/09/18 11:56 iv contrast Allergy Uncoded 11/09/18 11:56 REVIEW OF SYSTEMS: CONSTITUTIONAL: Present: chills, generalized weakness CARDIOVASCULAR: Absent: chest pain, palpitations RESPIRATORY: Absent: cough, shortness of breath GASTROINTESTINAL: present: abdominal pain, nausea, diarrhea NEUROLOGIC: Present: focal weakness(right hand/nonmobile) right leg limited movement PHYSICAL EXAM: GENERAL: Awake, alert, and fully oriented, in no acute distress. LUNGS: Clear to auscultation bilat anteriorly. HEART: Regular rate and rhythm. ABDOMEN: Soft, mild epigatric tenderness. No guarding, no rebound, no masses. MUSCULOSKELETAL: Normal ROM at all joints. No bony deformities or tenderness. LOWER EXTREMITIES: 2+ DP/PT pulses, warm, well-perfused. PSYCH: Cooperative. Good eye contact. Vital Signs Temperature 102.5 F H 08/14/19 20:20 Pulse Rate 61 08/15/19 01:56 Respiratory Rate 24 H 08/15/19 01:56 Blood Pressure 139/54 L 08/15/19 01:56 O2 Sat by Pulse Oximetry (%) 99 08/15/19 01:56 Lab Results WBC 6.5 K/mm3 (4.0-10.0) 08/14/19 21:32 RBC 4.07 M/mm3 (3.60-5.2) 08/14/19 21:32 Hgb 12.5 GM/dL (10.7-15.3) 08/14/19 21:32 Hct 38.1 % (32.4-45.2) 08/14/19 21:32 MCV 93.7 fl (80-96) 08/14/19 21:32 MCHC 32.9 g/dl (32.0-36.0) 08/14/19 21:32 RDW 12.7 % (11.6-15.6) D 08/14/19 21:32 Plt Count 182 K/MM3 (134-434) 08/14/19 21:32 Sodium 138 mmol/L (136-145) 08/14/19 21:32 Potassium 4.2 mmol/L (3.5-5.1) 08/14/19 21:32 Chloride 102 mmol/L (98-107) 08/14/19 21:32 Carbon Dioxide 29 mmol/L (21-32) 08/14/19 21:32 Anion Gap 7 MMOL/L (8-16) L 08/14/19 21:32 BUN 18.5 mg/dL (7-18) H 08/14/19 21:32 Creatinine 1.7 mg/dL (0.55-1.3) H 08/14/19 21:32 Random Glucose 192 mg/dL (74-106) H 08/14/19 21:32 Calcium 9.5 mg/dL (8.5-10.1) 08/14/19 21:32 INR 1.78 (0.83-1.09) H 08/14/19 21:32 Laboratory Tests 08/14/19 08/14/19 08/14/19 21:32 21:32 21:37 Lactic Acid 2.2 H* Total Bilirubin 1.5 H AST 648 H ALT 347 H Alkaline Phosphatase 215 H Urine Color Yellow Urine Appearance Cloudy Urine pH 6.5 Ur Specific [place] 1.012 Urine Protein Trace Urine Glucose (UA) Negative Urine Ketones Negative Urine Blood 1+ H Urine Nitrite Negative Urine Bilirubin Negative Urine Urobilinogen 1.0 Ur Leukocyte Esterase 3+ H US: no evidence of cholelithiasis, no dilated biliary ducts CT scan: Dilated stomach, no bowel obstruction, no fluid collection Problem List - Problems (1) Abnormal liver function test Assessment/Plan: Pt admitted with nausea, emesis, diarrhea. Now with elevaed LFTS and without evidence of Gallbladder disease on US. No acute surgcial issues, recommend GI consult and trend LFTs Npo/IV hydration. BUN creat elevted today incomparsion with previous labs drawn 07/18. Cret at 1.4. Also noted where elevated LFTS. T bili 0.3, Alk phos 111, AST 26 and ALT 28 on labs drawn 07/18. Wyatt Gorman Code(s): R94.5 - ABNORMAL RESULTS OF LIVER FUNCTION STUDIES
[2019-08-15] MEDS: CARVEDILOL 25 MG TABLET (FP) PO SCH ×2 (11:10→21:45)
[2019-08-15] MEDS: DONEPEZIL HCL 5 MG TABLET (FP) PO SCH (11:10)
[2019-08-15] MEDS: VALSARTAN 80 MG TABLET (UD) PO SCH ×2 (11:10→21:45)
[2019-08-15] MEDS: FUROSEMIDE 40 MG TABLET (FP) PO SCH (11:10)
[2019-08-15] MEDS: INSULIN SLIDING SCALE (NOVOLOG) 1 VIAL SQ SCH ×3 (11:22→21:49)
--- NOTE | 2019-08-15 11:49 | CON.CARD ---
Consult Consult Specialty:: Cardiology Referred by:: Medicine Reason for Consultation:: history of CAD, afib, ppm, preop - History of Present Illness Chief Complaint: abd pain History of Present Illness: 74F h/o afib s/p PPM ([facility]tr[employer]), CVA, Equivocal Lupus Anticoagulant AB ( followed by Rheum and Heme at [facility]), DVT, HTN, renal artery stenosis, CKD , hx pericardial effusion, chronic diastolic HF, AAA s/p EVAR, dementia p/w abd pain. History of colitis, with evidence of cholecystitis on imaging, also elevated LFTs. Saw Dr. Delacruz yesterday in office for nausea, vomiting, diarrhea. Feels week and tired. no chest pain, palps, dizziness, dyspnea. Sees Dr. 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: CVA Cardio/Vascular: Yes: AFIB, HTN, Hyperlipdemia, Other (pericarditis Pericardial effusion) Gastrointestinal: Yes: GERD Renal/: Yes: Other (Renal artery stenosis) Endocrine: Yes: Diabetes Mellitus - Past Surgical History Past Surgical History: Yes: , Permanent Pacemaker - Alcohol/Substance Use Hx Alcohol Use: No - Smoking History Smoking history: Never smoked Have you smoked in the past 12 months: No Aproximately how many cigarettes per day: 5 If you are a former smoker, when did you quit?: 1993 - Social History Usual Living Arrangement: Longterm ADL: Family Assistance History of Recent Travel: No Home Medications - Allergies Allergies/Adverse Reactions: Allergies Allergy/AdvReac Type Severity Reaction Status Date / Time aspirin Allergy Severe Verified 11/09/18 11:56 Penicillins Allergy Severe Verified 11/09/18 11:56 diclofenac Allergy Verified 11/09/18 11:56 shellfish derived Allergy Verified 11/09/18 11:56 lactose AdvReac Verified 11/09/18 11:56 peanut Allergy Unknown Rash Uncoded 11/09/18 11:56 iv contrast Allergy Uncoded 11/09/18 11:56 - Home Medications Home Medications: Ambulatory Orders Alprazolam 1.5 mg PO HS 11/09/18 Carvedilol [Coreg -] 25 mg PO BID 11/09/18 Clopidogrel Bisulfate [Plavix] 75 mg PO DAILY 11/09/18 Colchicine [Colcrys] 0.6 mg PO BID 11/09/18 Diltiazem HCl [Diltiazem 24Hr Cd] 240 mg PO DAILY 11/09/18 Donepezil HCl [Aricept] 5 mg PO DAILY 11/09/18 Dorzolamide HCl [Trusopt 2% -] 1 drop OU BID 11/09/18 Ferrous Sulfate 325 mg PO DAILY 11/09/18 Furosemide [Lasix -] 40 mg PO DAILY 11/09/18 Hydroxychloroquine Sulfate [Plaquenil] 200 mg PO DAILY 11/09/18 Latanoprost 1 drop OU HS 11/09/18 Linagliptin/Metformin HCl [Jentadueto 2.5 mg-500 mg Tab] 1 each PO BID 11/09/18 Multivitamin [Multiple Vitamins] 1 each PO DAILY 11/09/18 Ondansetron [Zofran -] 4 mg PO DAILY 11/09/18 Pantoprazole Sodium 40 mg PO DAILY 11/09/18 Rosuvastatin [Crestor -] 5 mg PO HS 11/09/18 Timolol [Betimol] 1 drop OU BID 11/09/18 Ubidecarenone [Co Q-10] 0 mg PO DAILY 11/09/18 Apixaban [Eliquis -] 5 mg PO BID #60 tablet 11/21/18 Calcium (Oyster Shell) [Os-Gino 500MG -] 500 mg PO DAILY #60 tablet 11/21/18 Ergocalciferol [Vitamin D2] 50,000 unit PO Q7D@1000 #30 capsule 11/21/18 Isosorbide Mononitrate [Imdur -] 30 mg PO DAILY #60 tab.sr.24h 11/21/18 Oxycodone HCl 5 mg PO BID #20 tablet MDD 2 11/21/18 Valsartan [Diovan] 80 mg PO BID #60 tablet 11/21/18 Vancomycin HCl 125 mg PO QID #16 capsule 11/21/18 oxyCODONE HCL [Roxicodone -] 5 mg PO Q4H PRN #20 tablet MDD 3 11/21/18 Family Medical History Family History: Unremarkable Review of Systems - Review of Systems Constitutional: reports: No Symptoms Eyes: reports: No Symptoms HENT: reports: No Symptoms Neck: reports: No Symptoms Cardiovascular: reports: No Symptoms Respiratory: reports: No Symptoms Gastrointestinal: reports: Abdominal Pain, Diarrhea, Nausea Genitourinary: reports: No Symptoms Musculoskeletal: reports: No Symptoms Integumentary: reports: No Symptoms Neurological: reports: No Symptoms Endocrine: reports: No Symptoms Hematology/Lymphatic: reports: No Symptoms Psychiatric: reports: No Symptoms Vital Signs: Vital Signs Temperature 102.5 F H 08/14/19 20:20 Pulse Rate 61 08/15/19 01:56 Respiratory Rate 24 H 08/15/19 01:56 Blood Pressure 139/54 L 08/15/19 01:56 O2 Sat by Pulse Oximetry (%) 99 08/15/19 01:56 Constitutional: Yes: No Distress, Calm Eyes: Yes: Conjunctiva Clear, EOM Intact HENT: Yes: Atraumatic, Normocephalic Neck: Yes: Supple, Trachea Midline Respiratory: Yes: Regular, CTA Bilaterally Gastrointestinal: Yes: Normal Bowel Sounds, Soft Cardiovascular: Yes: Regular Rate and Rhythm PMI: Non-Displaced Extremities: No: Cold Edema: No Integumentary: No: Jaundice Neurological: Yes: Alert, Oriented Psychiatric: No: Agitated - Other Data Labs, Other Data: CBC, BMP 08/14/19 21:32 08/14/19 21:32 INR, PTT INR 1.78 (0.83-1.09) H 08/14/19 21:32 Troponin, BNP 08/14/19 21:32 Troponin I < 0.02 Troponin, BNP 08/14/19 21:32 Troponin I < 0.02 Assessment/Plan echo in office 05/2019 tds, borderline conc LVH, overall LV function grossly borderline to mildly reduced, septal wall motion c/w V pacing, LA mildly dilated , mild to mod AR, mild MR, mild TR EKG: AP, LBBB simlar to prior tele: ap abdominal pain - surgery evaluated - no acute indication for surgery - NPO, GI evaluation pending afib s/p PPM - holding eliquis while NPO, will start heparin gtt while NPO resume eliquis when able per BI - outpatient ppm monitoring HTN - holding home meds while NPO, monitor BP CAD - remote PCI, holding plavix, statin while NPO AAA s/p EVAR - resume bb when taking PO - outpatient follow up chronic diastolic HF - appears euvolemic - holding lasix, ARB, carvedilol while NPO, monitor volume status
[2019-08-15] MEDS ORDERED: HEPARIN NA (PORCINE) 5,000 UNITS/ML 1ML VIAL IVPUSH PRN ×2 (11:51)
[2019-08-15] MEDS: TIMOLOL 0.5% OPHTHALMIC SOL 5 ML BOTTLE OU SCH ×2 (11:55→22:05)
[2019-08-15] MEDS: DORZOLAMIDE 2% HCL OPHTHALMIC SOLUTION 10 ML BOTTLE OU SCH ×2 (11:55→22:05)
--- NOTE | 2019-08-15 12:05 | EKG ---
Test Reason : Blood Pressure : / mmHG Vent. Rate : 060 BPM Atrial Rate : 129 BPM P-R Int : 000 ms QRS Dur : 144 ms QT Int : 464 ms P-R-T Axes : 029 -01 201 degrees QTc Int : 464 ms Atrial-paced rhythm LEFT BUNDLE BRANCH BLOCK ABNORMAL ECG WHEN COMPARED WITH ECG OF 09-NOV-2018 15:53, NO SIGNIFICANT CHANGE WAS FOUND Confirmed by King Sierra ([id number]) on 08/15/2019 12:05:13 PM Referred By: Confirmed By:King Sierra
[2019-08-15] MEDS: VANCOMYCIN 1 GRAM (PRE-DOCKED) 1,000 MG/250 ML BAG IVPB SCH ×2 (13:15→21:45)
--- NOTE | 2019-08-15 13:51 | CON.ID ---
Consult Consult Specialty:: infectious diseases Referred by:: Reason for Consultation:: sepsis,gm negative bactermia,ams - History of Present Illness Chief Complaint: ams History of Present Illness: 74F with extensive medical history including ischemic colitis, AAA s/p repair at [facility], Lupus, pericarditis, DVT here today with LUQ abdominal pain and altered mental status. history obtained from the patient as she is unable to give any history Family reports that patient had been doing well and was seen by Dr Delacruz, her GI physician today, where she was prescribed medications for gas and metronidazole for possible diarrhea. Unsure of exact reason for antibiotic prescription. 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: CVA Cardio/Vascular: Yes: AFIB, HTN, Hyperlipdemia, Other (pericarditis Pericardial effusion) Gastrointestinal: Yes: GERD Renal/: Yes: Other (Renal artery stenosis) Endocrine: Yes: Diabetes Mellitus - Past Surgical History Past Surgical History: Yes: , Permanent Pacemaker - Alcohol/Substance Use Hx Alcohol Use: No - Smoking History Smoking history: Never smoked Have you smoked in the past 12 months: No Aproximately how many cigarettes per day: 5 If you are a former smoker, when did you quit?: 1993 - Social History Usual Living Arrangement: Shelter ADL: Family Assistance History of Recent Travel: No Home Medications - Allergies Allergies/Adverse Reactions: Allergies Allergy/AdvReac Type Severity Reaction Status Date / Time aspirin Allergy Severe Verified 11/09/18 11:56 Penicillins Allergy Severe Verified 11/09/18 11:56 diclofenac Allergy Verified 11/09/18 11:56 shellfish derived Allergy Verified 11/09/18 11:56 lactose AdvReac Verified 11/09/18 11:56 peanut Allergy Unknown Rash Uncoded 11/09/18 11:56 iv contrast Allergy Uncoded 11/09/18 11:56 - Home Medications Home Medications: Ambulatory Orders RX: Alprazolam 1.5 mg PO HS 11/09/18 RX: Carvedilol [Coreg -] 25 mg PO BID 11/09/18 RX: Clopidogrel Bisulfate [Plavix] 75 mg PO DAILY 11/09/18 RX: Colchicine [Colcrys] 0.6 mg PO BID 11/09/18 RX: Diltiazem HCl [Diltiazem 24Hr Cd] 240 mg PO DAILY 11/09/18 RX: Donepezil HCl [Aricept] 5 mg PO DAILY 11/09/18 RX: Dorzolamide HCl [Trusopt 2% -] 1 drop OU BID 11/09/18 RX: Ferrous Sulfate 325 mg PO DAILY 11/09/18 RX: Furosemide [Lasix -] 40 mg PO DAILY 11/09/18 RX: Hydroxychloroquine Sulfate [Plaquenil] 200 mg PO DAILY 11/09/18 RX: Latanoprost 1 drop OU HS 11/09/18 RX: Linagliptin/Metformin HCl [Jentadueto 2.5 mg-500 mg Tab] 1 each PO BID 11/09 RX: Multivitamin [Multiple Vitamins] 1 each PO DAILY 11/09/18 RX: Ondansetron [Zofran -] 4 mg PO DAILY 11/09/18 RX: Pantoprazole Sodium 40 mg PO DAILY 11/09/18 RX: Rosuvastatin [Crestor -] 5 mg PO HS 11/09/18 RX: Timolol [Betimol] 1 drop OU BID 11/09/18 RX: Ubidecarenone [Co Q-10] 0 mg PO DAILY 11/09/18 RX: Apixaban [Eliquis -] 5 mg PO BID #60 tablet 11/21/18 RX: Calcium (Oyster Shell) [Os-Gino 500MG -] 500 mg PO DAILY #60 tablet 11/21/18 RX: Ergocalciferol [Vitamin D2] 50,000 unit PO Q7D@1000 #30 capsule 11/21/18 RX: Isosorbide Mononitrate [Imdur -] 30 mg PO DAILY #60 tab.sr.24h 11/21/18 RX: Oxycodone HCl 5 mg PO BID #20 tablet MDD 2 11/21/18 RX: Valsartan [Diovan] 80 mg PO BID #60 tablet 11/21/18 RX: Vancomycin HCl 125 mg PO QID #16 capsule 11/21/18 RX: oxyCODONE HCL [Roxicodone -] 5 mg PO Q4H PRN #20 tablet MDD 3 11/21/18 Review of Systems Unable to obtain ROS, reason: unable to obtain Physical Exam Vital Signs: Vital Signs Temperature 102.5 F H 08/14/19 20:20 Pulse Rate 61 08/15/19 01:56 Respiratory Rate 24 H 08/15/19 01:56 Blood Pressure 139/54 L 08/15/19 01:56 O2 Sat by Pulse Oximetry (%) 99 08/15/19 01:56 Constitutional: Yes: Well Nourished, No Distress Neck: Yes: Supple, Trachea Midline Cardiovascular: Yes: Pulse Irregular, S1, S2 Respiratory: Yes: Regular, CTA Bilaterally Gastrointestinal: Yes: Normal Bowel Sounds, Soft Musculoskeletal: Yes: WNL Extremities: Yes: WNL Neurological: Yes: Lethargy, Other (altered mental status) Labs: CBC, BMP 08/14/19 21:32 08/14/19 21:32 Imaging - Results Chest X-ray: Report Reviewed, Image Reviewed Cat Scan: Report Reviewed, Image Reviewed Assessment/Plan abdominal pain afib s/p PPM HTN CAD AAA s/p EVAR chronic diastolic HF gm negative bacteremia uti i think her blood stream infection is coming from her urine will start patient on meropenam hydration await for identification of all organism monitor mental status discussed with the family
[2019-08-15] MEDS ORDERED: HEPARIN NA (PORCINE) 5,000 UNITS/ML 1ML VIAL ONE (14:09)
[2019-08-15 14:40] LABS: BILIRUBIN,TOTAL 2.8 mg/dL (0.2-1); BLOOD UREA NITROGEN 15.4 mg/dL (7-18); CREATININE 1.6 mg/dL (0.55-1.3); POTASSIUM 3.7 mmol/L (3.5-5.1)
[2019-08-15 15:02] LABS: BASO % 0.2 % (0-2.0); EOS % 0.8 % (0-4.5); HEMATOCRIT 33.2 % (32.4-45.2); HEMOGLOBIN 11.2 GM/dL (10.7-15.3); MCH 31.5 pg (25.7-33.7); MCHC 33.7 g/dl (32.0-36.0); MEAN CELL VOLUME 93.6 fl (80-96); MEAN PLT VOLUME 9.2 fl (7.5-11.1); MONO % 9.3 % (3.8-10.2); NEUT % 75.7 % (42.8-82.8); PLATELET COUNT 162 K/MM3 (134-434); RBC 3.54 M/mm3 (3.60-5.2); RDW 12.8 % (11.6-15.6); WHITE BLOOD COUNT 6.8 K/mm3 (4.0-10.0)
[2019-08-15] MEDS ORDERED: HEPARIN INFUSION - 25,000 UNITS/500 ML INFUS.BAG IVPB ONE (15:13)
[2019-08-15] MEDS: HEPARIN - 25,000 UNIT in SODIUM CHLORIDE 495 ML IV SCH ×2 (15:21→22:38)
[2019-08-15 16:50] VITALS: BMI 31.6
[2019-08-15] MEDS ORDERED: PT OWN MED DRAWER 7, Y5N ONE ×2 (17:23→22:03)
[2019-08-15] MEDS ORDERED: INSULIN (NOVOLOG) ASPART 100 UNITS/ML 10ML VIAL ONE ×2 (18:08→21:20)
--- NOTE | 2019-08-15 19:52 | HP ---
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 Cardiovascular: Yes: AFIB, HTN, Hyperlipdemia, Other (pericarditis Pericardial effusion) Gastrointestinal: Yes: GERD Renal/: Yes: Other (Renal artery stenosis) ...: No Heme/Onc: Yes: Other (DVT) Endocrine: Yes: Diabetes Mellitus - Past Surgical History Past Surgical History: Yes: , Permanent Pacemaker - Smoking History Smoking history: Former smoker Have you smoked in the past 12 months: No Aproximately how many cigarettes per day: 5 If you are a former smoker, when did you quit?: 1993 - Alcohol/Substance Use Hx Alcohol Use: No - Social History ADL: Family Assistance History of Recent Travel: No Home Medications - Allergies Allergies/Adverse Reactions: Allergies Allergy/AdvReac Type Severity Reaction Status Date / Time aspirin Allergy Severe Verified 11/09/18 11:56 Penicillins Allergy Severe Verified 11/09/18 11:56 diclofenac Allergy Verified 11/09/18 11:56 shellfish derived Allergy Verified 11/09/18 11:56 lactose AdvReac Verified 11/09/18 11:56 peanut Allergy Unknown Rash Uncoded 11/09/18 11:56 iv contrast Allergy Uncoded 11/09/18 11:56 - Home Medications Home Medications: Ambulatory Orders Alprazolam 1.5 mg PO HS 11/09/18 Carvedilol [Coreg -] 25 mg PO BID 11/09/18 Clopidogrel Bisulfate [Plavix] 75 mg PO DAILY 11/09/18 Colchicine [Colcrys] 0.6 mg PO BID 11/09/18 Diltiazem HCl [Diltiazem 24Hr Cd] 240 mg PO DAILY 11/09/18 Donepezil HCl [Aricept] 5 mg PO DAILY 11/09/18 Dorzolamide HCl [Trusopt 2% -] 1 drop OU BID 11/09/18 Ferrous Sulfate 325 mg PO DAILY 11/09/18 Furosemide [Lasix -] 40 mg PO DAILY 11/09/18 Hydroxychloroquine Sulfate [Plaquenil] 200 mg PO DAILY 11/09/18 Latanoprost 1 drop OU HS 11/09/18 Linagliptin/Metformin HCl [Jentadueto 2.5 mg-500 mg Tab] 1 each PO BID 11/09/18 Multivitamin [Multiple Vitamins] 1 each PO DAILY 11/09/18 Ondansetron [Zofran -] 4 mg PO DAILY 11/09/18 Pantoprazole Sodium 40 mg PO DAILY 11/09/18 Rosuvastatin [Crestor -] 5 mg PO HS 11/09/18 Timolol [Betimol] 1 drop OU BID 11/09/18 Ubidecarenone [Co Q-10] 0 mg PO DAILY 11/09/18 Apixaban [Eliquis -] 5 mg PO BID #60 tablet 11/21/18 Calcium (Oyster Shell) [Os-Gino 500MG -] 500 mg PO DAILY #60 tablet 11/21/18 Ergocalciferol [Vitamin D2] 50,000 unit PO Q7D@1000 #30 capsule 11/21/18 Isosorbide Mononitrate [Imdur -] 30 mg PO DAILY #60 tab.sr.24h 11/21/18 Oxycodone HCl 5 mg PO BID #20 tablet MDD 2 11/21/18 Valsartan [Diovan] 80 mg PO BID #60 tablet 11/21/18 Vancomycin HCl 125 mg PO QID #16 capsule 11/21/18 oxyCODONE HCL [Roxicodone -] 5 mg PO Q4H PRN #20 tablet MDD 3 11/21/18 Physical Examination Vital Signs: Vital Signs Temperature 98.2 F 08/15/19 16:32 Pulse Rate 62 08/15/19 16:32 Respiratory Rate 18 08/15/19 16:32 Blood Pressure 146/55 L 08/15/19 16:32 O2 Sat by Pulse Oximetry (%) 98 08/15/19 16:57 Labs: CBC, BMP 08/15/19 14:30 08/15/19 13:45
[2019-08-15] MEDS ORDERED: MEROPENEM 1 GM VIAL (RESTRICTED TO ID) IVPB ONE (20:38)
[2019-08-15] MEDS ORDERED: DEXTROSE 5%-WATER 100 ML IVPB ONE (20:39)
[2019-08-15] MEDS: MEROPENEM 1 GM in DEXTROSE 5%-WATER 100 ML IVPB SCH (20:53)
[2019-08-15] MEDS: ROSUVASTATIN CA 5 MG TABLET (FP) PO SCH (21:45)
[2019-08-15] MEDS ORDERED: ALPRAZolam 0.25 MG TABLET ONE (22:04)
[2019-08-15] MEDS: LATANOPROST 0.005% OPHTH SOLN 2.5ML BOTTLE OU SCH (22:04)
[2019-08-15] MEDS ORDERED: APIXABAN 5 MG TABLET PO SCH (23:30)
[2019-08-15] MEDS ORDERED: ALPRAZolam 0.25 MG TABLET PO ONE (23:45)
[2019-08-16] MEDS: INSULIN SLIDING SCALE (NOVOLOG) 1 VIAL SQ SCH ×4 (06:16→22:34)
--- NOTE | 2019-08-16 08:30 | CON.GI ---
Consult Consult Specialty:: GI Referred by:: Dr Sugar Goddard Reason for Consultation:: vomiting, diarrhea - History of Present Illness Chief Complaint: LUQ pain History of Present Illness: Patient is a 74 y/o female with past medical history Ischemic Colitis, AAA s/p repair at [facility], Lupus, Pericarditis, and DVT. Consult was placed to assess patient for diarrhea and vomiting. Patient states that for 3 days she has been experiencing non-radiating LUQ pain associated with nausea and vomiting after eating, poor appetite, and fever and chills which developed yesterday. Patient states that reglan would relieve the pain but there were no significant exacerbating factors. Abd/Pelvic CT scan shows fusiform aneurysmal dilatation of the infrarenal abdominal aorta measuring 5.3 x 5.1 cm which has grown in size since 12/2017 from 3.8cm. Abdominal US shows diffuse fatty infiltration of liver. She denies dysphagia, heartburn, diarrhea, rectal bleeding, melena. 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 Cardio/Vascular: Yes: AFIB, Aneurysm (AAA), HTN, Hyperlipdemia, Other ( pericarditis Pericardial effusion) Gastrointestinal: Yes: GERD Renal/: Yes: Other (Renal artery stenosis) ...: No Endocrine: Yes: Diabetes Mellitus - Past Surgical History Past Surgical History: Yes: , Permanent Pacemaker - Alcohol/Substance Use Hx Alcohol Use: No - Smoking History Smoking history: Former smoker Have you smoked in the past 12 months: No Aproximately how many cigarettes per day: 5 If you are a former smoker, when did you quit?: 1993 - Social History Usual Living Arrangement: Alf ADL: Family Assistance History of Recent Travel: No Home Medications - Allergies Allergies/Adverse Reactions: Allergies Allergy/AdvReac Type Severity Reaction Status Date / Time aspirin Allergy Severe Verified 11/09/18 11:56 Penicillins Allergy Severe Verified 11/09/18 11:56 diclofenac Allergy Verified 11/09/18 11:56 shellfish derived Allergy Verified 11/09/18 11:56 lactose AdvReac Verified 11/09/18 11:56 peanut Allergy Unknown Rash Uncoded 11/09/18 11:56 iv contrast Allergy Uncoded 11/09/18 11:56 - Home Medications Home Medications: Ambulatory Orders Alprazolam 1.5 mg PO HS 11/09/18 Carvedilol [Coreg -] 25 mg PO BID 11/09/18 Clopidogrel Bisulfate [Plavix] 75 mg PO DAILY 11/09/18 Colchicine [Colcrys] 0.6 mg PO BID 11/09/18 Diltiazem HCl [Diltiazem 24Hr Cd] 240 mg PO DAILY 11/09/18 Donepezil HCl [Aricept] 5 mg PO DAILY 11/09/18 Dorzolamide HCl [Trusopt 2% -] 1 drop OU BID 11/09/18 Ferrous Sulfate 325 mg PO DAILY 11/09/18 Furosemide [Lasix -] 40 mg PO DAILY 11/09/18 Hydroxychloroquine Sulfate [Plaquenil] 200 mg PO DAILY 11/09/18 Latanoprost 1 drop OU HS 11/09/18 Linagliptin/Metformin HCl [Jentadueto 2.5 mg-500 mg Tab] 1 each PO BID 11/09/18 Multivitamin [Multiple Vitamins] 1 each PO DAILY 11/09/18 Ondansetron [Zofran -] 4 mg PO DAILY 11/09/18 Pantoprazole Sodium 40 mg PO DAILY 11/09/18 Rosuvastatin [Crestor -] 5 mg PO HS 11/09/18 Timolol [Betimol] 1 drop OU BID 11/09/18 Ubidecarenone [Co Q-10] 0 mg PO DAILY 11/09/18 Apixaban [Eliquis -] 5 mg PO BID #60 tablet 11/21/18 Calcium (Oyster Shell) [Os-Gino 500MG -] 500 mg PO DAILY #60 tablet 11/21/18 Ergocalciferol [Vitamin D2] 50,000 unit PO Q7D@1000 #30 capsule 11/21/18 Isosorbide Mononitrate [Imdur -] 30 mg PO DAILY #60 tab.sr.24h 11/21/18 Oxycodone HCl 5 mg PO BID #20 tablet MDD 2 11/21/18 Valsartan [Diovan] 80 mg PO BID #60 tablet 11/21/18 Vancomycin HCl 125 mg PO QID #16 capsule 11/21/18 oxyCODONE HCL [Roxicodone -] 5 mg PO Q4H PRN #20 tablet MDD 3 11/21/18 Review of Systems - Review of Systems Constitutional: reports: Loss of Appetite Eyes: reports: No Symptoms HENT: reports: No Symptoms Neck: reports: No Symptoms Cardiovascular: reports: No Symptoms Respiratory: reports: No Symptoms Gastrointestinal: reports: Abdominal Pain Genitourinary: reports: No Symptoms Breasts: reports: No Symptoms Reported Musculoskeletal: reports: No Symptoms Integumentary: reports: No Symptoms Neurological: reports: No Symptoms Endocrine: reports: No Symptoms Hematology/Lymphatic: reports: No Symptoms Psychiatric: reports: No Symptoms Physical Exam-GI Vital Signs: Vital Signs Temperature 99.7 F H 08/16/19 06:00 Pulse Rate 60 08/16/19 06:00 Respiratory Rate 20 08/16/19 06:00 Blood Pressure 165/68 08/16/19 06:00 O2 Sat by Pulse Oximetry (%) 98 08/15/19 21:00 Constitutional: Yes: No Distress, Calm Eyes: Yes: Conjunctiva Clear HENT: Yes: Atraumatic Cardiovascular: Yes: Regular Rate and Rhythm Respiratory: Yes: Regular, CTA Bilaterally Gastrointestinal Inspection: Yes: WNL. No: Ascites, Distention, Hernia, Scars, Other ...Auscultate: Yes: Normoactive Bowel Sounds. No: Hyperactive Bowel Sounds, Hypoactive Bowel Sounds, No Bowel Sounds, Other ...Palpate: Yes: Soft, Tenderness (ruq, luq, rlq), Tenderness, Epigastium ...Percussion: Yes: Other (high tympany). No: Dullness, Fluid Wave, Tympanitic Neurological: Yes: Alert, Pre-Existing Deficit Psychiatric: Yes: Alert Labs: CBC, BMP 08/15/19 14:30 INR, PTT INR 1.78 (0.83-1.09) H 08/14/19 21:32 Active Medications Generic Name Dose Route Start Last Admin Trade Name Freq PRN Reason Stop Dose Admin Carvedilol 25 mg 08/15/19 10:00 08/15/19 21:45 Coreg - PO 25 mg BID JONAS Administration Clopidogrel Bisulfate 75 mg 08/16/19 10:00 Plavix - PO DAILY JONAS Diltiazem HCl 240 mg 08/15/19 10:00 08/15/19 11:10 Cardizem Cd - PO 240 mg DAILY JONAS Administration Donepezil HCl 5 mg 08/15/19 10:00 08/15/19 11:10 Aricept - PO 5 mg DAILY JONAS Administration Dorzolamide HCl 1 drop 08/15/19 10:00 08/15/19 22:05 Trusopt 2% OU 1 drop BID JONAS Administration Furosemide 40 mg 08/15/19 10:00 08/15/19 11:10 Lasix - PO 40 mg DAILY JONAS Administration Heparin Sodium (Porcine) 1,000 unit 08/15/19 11:51 Heparin - IVPUSH PRN PRN Heparin Heparin Sodium (Porcine) 5,000 unit 08/15/19 11:51 08/15/19 14:16 Heparin - IVPUSH 5,000 unit PRN PRN Administration Heparin Hydroxychloroquine Sulfate 200 mg 08/16/19 10:00 Plaquenil - PO DAILY JONAS Dextrose/Sodium Chloride 1,000 mls @ 75 mls/hr 08/15/19 07:30 08/15/19 20:01 D5-1/2ns - IV 75 mls/hr ASDIR JONAS Administration Vancomycin HCl 1 gm in 200 mls @ 200 mls/hr 08/15/19 07:30 Vancomycin 1 Gm Premix - IVPB Q12H JONAS Heparin Sodium (Porcine) 25, 500 mls @ 20 mls/hr 08/15/19 12:00 08/15/19 22: 38 000 unit/ Sodium Chloride IV 950 unit/hr TITR JONAS 19 mls/hr Administration Protocol 1,000 UNIT/HR Meropenem 1 gm/ Dextrose 100 mls @ 200 mls/hr 08/15/19 21:00 08/15/19 20:53 IVPB 200 mls/hr Q12H JONAS Administration Insulin Aspart 1 vial 08/15/19 11:00 08/16/19 06:16 Novolog Vial Sliding Scale - SQ 2 units ACHS JONAS Administration Protocol Isosorbide Mononitrate 30 mg 08/16/19 10:00 Imdur - PO DAILY JONAS Latanoprost 1 drop 08/15/19 22:00 08/15/19 22:04 Xalatan 0.005% Eye Drops - OU 1 drop HS JONAS Administration Ondansetron HCl 4 mg 08/15/19 07:27 Zofran Injection IVPUSH Q6H PRN NAUSEA Pantoprazole Sodium 40 mg 08/16/19 10:00 Protonix - PO DAILY JONAS Rosuvastatin Calcium 5 mg 08/15/19 22:00 10/08/19 21:45 Crestor - PO 5 mg HS JONAS Administration Timolol Maleate 1 drop 08/15/19 10:00 08/15/19 22:05 Timoptic 0.5% OU 1 drop BID JONAS Administration Valsartan 80 mg 08/15/19 10:00 08/15/19 21:45 Diovan - PO 80 mg BID JONAS Administration Problem List - Problems (1) Abdominal pain Assessment/Plan: -Intestinal Angina secondary AAA -Vascular consult -control BP Code(s): R10.9 - UNSPECIFIED ABDOMINAL PAIN (2) Abnormal liver function test Assessment/Plan: -LFTs elevated but showing downtrend -MRCP ordered to R/O CBD stone -Abd US shows fatty infiltration of liver Code(s): R94.5 - ABNORMAL RESULTS OF LIVER FUNCTION STUDIES
[2019-08-16] MEDS ORDERED: MEROPENEM 1 GM VIAL (RESTRICTED TO ID) IVPB ONE ×2 (09:55→22:02)
[2019-08-16] MEDS ORDERED: PT OWN MED DRAWER 7, Y5N ONE ×3 (09:56→22:39)
[2019-08-16] MEDS ORDERED: DEXTROSE 5%-WATER 100 ML IVPB ONE ×2 (09:56→22:02)
[2019-08-16 09:57] LABS: ALBUMIN 2.9 g/dl (3.4-5.0); BILIRUBIN,TOTAL 1.6 mg/dL (0.2-1); BLOOD UREA NITROGEN 10.5 mg/dL (7-18); CALCIUM 8.6 mg/dL (8.5-10.1); CREATININE 1.6 mg/dL (0.55-1.3)
[2019-08-16] MEDS: CARVEDILOL 25 MG TABLET (FP) PO SCH ×2 (10:06→22:32)
[2019-08-16] MEDS: DONEPEZIL HCL 5 MG TABLET (FP) PO SCH (10:06)
[2019-08-16] MEDS: HYDROXYCHLOROQUINE SO4 200 MG TABLET (FP) PO SCH (10:07)
[2019-08-16] MEDS: CLOPIDOGREL BISULFATE 75 MG TABLET (FP) PO SCH (10:07)
[2019-08-16] MEDS: VALSARTAN 80 MG TABLET (UD) PO SCH ×2 (10:07→22:33)
[2019-08-16] MEDS: FUROSEMIDE 40 MG TABLET (FP) PO SCH (10:07)
[2019-08-16] MEDS: PANTOPRAZOLE 40 MG TABLET (FP) PO SCH (10:07)
[2019-08-16] MEDS: MEROPENEM 1 GM in DEXTROSE 5%-WATER 100 ML IVPB SCH ×2 (10:08→22:32)
[2019-08-16] MEDS: TIMOLOL 0.5% OPHTHALMIC SOL 5 ML BOTTLE OU SCH ×2 (10:10→22:48)
[2019-08-16] MEDS: DORZOLAMIDE 2% HCL OPHTHALMIC SOLUTION 10 ML BOTTLE OU SCH ×2 (10:10→22:47)
--- NOTE | 2019-08-16 10:16 | PN ---
<Flavio Rodrigues - Last Filed: 08/16/19 20:33> Physical Exam: SUBJECTIVE: Patient seen and examined with daughter at bedside. Pt reports ongoing abdominal tenderness, but feels overall better. Pt is more awake compared to previously described. OBJECTIVE: Vital Signs Period Temp Pulse Resp BP Sys/[place]ak Pulse Ox Last 24 Hr 98.1 F-99.7 F 60-68 18-20 114-165/55-68 96-100 GENERAL: The patient is awake, alert, and fully oriented, in no acute distress. HEENT: NC/AT, JONAS, sclera anicteric, slightly dry mucosa, dentures + NECK: No JVD LUNGS: CTA bilaterally, no wheezes, no crackles, no accessory muscle use. HEART: RRR, S1, S2 without murmur ABDOMEN: Soft, NT/ND, normoactive bowel sounds, no guarding EXTREMITIES: 2+ DP pulses, warm, well-perfused, no edema. PSYCH: Normal mood, normal affect. SKIN: Warm, dry, no rashes or lesions noted Laboratory Results - last 24 hr 08/15/19 08/15/19 08/15/19 13:45 14:30 14:30 WBC 6.8 RBC 3.54 L Hgb 11.2 Hct 33.2 MCV 93.6 MCH 31.5 MCHC 33.7 RDW 12.8 Plt Count 162 MPV 9.2 Absolute Neuts (auto) 5.1 Neutrophils % 75.7 Lymphocytes % 14.0 D Monocytes % 9.3 Eosinophils % 0.8 D Basophils % 0.2 Nucleated RBC % 0 PTT (Actin FS) Sodium 140 Potassium 3.7 Chloride 106 Carbon Dioxide 29 Anion Gap 6 L BUN 15.4 Creatinine 1.6 H Est GFR (CKD-EPI)AfAm 36.16 Est GFR (CKD-EPI)NonAf 31.20 POC Glucometer Random Glucose 187 H Lactic Acid 0.9 Calcium 9.0 Total Bilirubin 2.8 H AST 205 H ALT 224 H Alkaline Phosphatase 181 H Total Protein 6.0 L Albumin 3.0 L 08/15/19 08/15/19 08/15/19 17:34 21:10 21:49 WBC RBC Hgb Hct MCV MCH MCHC RDW Plt Count MPV Absolute Neuts (auto) Neutrophils % Lymphocytes % Monocytes % Eosinophils % Basophils % Nucleated RBC % PTT (Actin FS) 79.2 H Sodium Potassium Chloride Carbon Dioxide Anion Gap BUN Creatinine Est GFR (CKD-EPI)AfAm Est GFR (CKD-EPI)NonAf POC Glucometer 247 170 Random Glucose Lactic Acid Calcium Total Bilirubin AST ALT Alkaline Phosphatase Total Protein Albumin 08/16/19 08/16/19 05:44 06:55 WBC RBC Hgb Hct MCV MCH MCHC RDW Plt Count MPV Absolute Neuts (auto) Neutrophils % Lymphocytes % Monocytes % Eosinophils % Basophils % Nucleated RBC % PTT (Actin FS) Sodium 140 Potassium Chloride 104 Carbon Dioxide 27 Anion Gap 9 BUN 10.5 Creatinine 1.6 H Est GFR (CKD-EPI)AfAm 36.16 Est GFR (CKD-EPI)NonAf 31.20 POC Glucometer 178 Random Glucose 182 H Lactic Acid Calcium 8.6 Total Bilirubin 1.6 H AST 106 H ALT 161 H Alkaline Phosphatase 182 H Total Protein 6.0 L Albumin 2.9 L Active Medications Generic Name Dose Route Start Last Admin Trade Name Freq PRN Reason Stop Dose Admin Carvedilol 25 mg 08/15/19 10:00 08/16/19 10:06 Coreg - PO 25 mg BID JONAS Administration Clopidogrel Bisulfate 75 mg 08/16/19 10:00 08/16/19 10:07 Plavix - PO 75 mg DAILY JONAS Administration Diltiazem HCl 240 mg 08/15/19 10:00 08/16/19 10:06 Cardizem Cd - PO 240 mg DAILY JONAS Administration Donepezil HCl 5 mg 08/15/19 10:00 08/16/19 10:06 Aricept - PO 5 mg DAILY JONAS Administration Dorzolamide HCl 1 drop 08/15/19 10:00 08/16/19 10:10 Trusopt 2% OU 1 drop BID JONAS Administration Furosemide 40 mg 08/15/19 10:00 08/16/19 10:07 Lasix - PO 40 mg DAILY JONAS Administration Heparin Sodium (Porcine) 1,000 unit 08/15/19 11:51 Heparin - IVPUSH PRN PRN Heparin Heparin Sodium (Porcine) 5,000 unit 08/15/19 11:51 08/15/19 14:16 Heparin - IVPUSH 5,000 unit PRN PRN Administration Heparin Hydroxychloroquine Sulfate 200 mg 08/16/19 10:00 08/16/19 10:07 Plaquenil - PO 200 mg DAILY JONAS Administration Dextrose/Sodium Chloride 1,000 mls @ 75 mls/hr 08/15/19 07:30 08/15/19 20:01 D5-1/2ns - IV 75 mls/hr ASDIR JONAS Administration Vancomycin HCl 1 gm in 200 mls @ 200 mls/hr 08/15/19 07:30 Vancomycin 1 Gm Premix - IVPB Q12H JONAS Heparin Sodium (Porcine) 25, 500 mls @ 20 mls/hr 08/15/19 12:00 08/15/19 22: 38 000 unit/ Sodium Chloride IV 950 unit/hr TITR JONAS 19 mls/hr Administration Protocol 1,000 UNIT/HR Meropenem 1 gm/ Dextrose 100 mls @ 200 mls/hr 08/15/19 21:00 08/16/19 10:08 IVPB 200 mls/hr Q12H JONAS Administration Insulin Aspart 1 vial 08/15/19 11:00 08/16/19 06:16 Novolog Vial Sliding Scale - SQ 2 units ACHS JONAS Administration Protocol Isosorbide Mononitrate 30 mg 08/16/19 10:00 Imdur - PO DAILY JONAS Latanoprost 1 drop 08/15/19 22:00 08/15/19 22:04 Xalatan 0.005% Eye Drops - OU 1 drop HS JONAS Administration Ondansetron HCl 4 mg 08/15/19 07:27 Zofran Injection IVPUSH Q6H PRN NAUSEA Pantoprazole Sodium 40 mg 08/16/19 10:00 08/16/19 10:07 Protonix - PO 40 mg DAILY JONAS Administration Rosuvastatin Calcium 5 mg 08/15/19 22:00 08/15/19 21:45 Crestor - PO 5 mg HS JONAS Administration Timolol Maleate 1 drop 08/15/19 10:00 08/16/19 10:10 Timoptic 0.5% OU 1 drop BID JONAS Administration Valsartan 80 mg 08/15/19 10:00 08/16/19 10:07 Diovan - PO 80 mg BID JONAS Administration ASSESSMENT/PLAN: Urinary tract infection with gram negative Bacteremia Abdominal aortic aneurysm Transaminitis and r/o gallstone cholecystitis Hypokalemia Lupus with lupus anticoagulant Atrophic R 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 prior) --Appeciate all consultation recommendations --Vascular surgery consult placed for seemingly increasing AAA --Will contact outpatient physician Dr. Zamarripa for outpatient records regarding size (last appointment 1 week) --Maintain strict BP and HR goals; pt home medications due to this AM --Will give home medications and recheck BP; if elevated can add additional agents --Continue Meropenem due to gram negative bacteremia with history of MDR bacterium --Isolation precautions --Awaiting sensitivities of cultures and will repeat blood culture today for clearance --Dr. Delacruz on board; ordered MRCP for r/o CBD dilation --Monitor LFTs and avoid hepatotoxic agents --Continue home lupus medications --Continue home medications as below: Cardizem 240mg qdaily Coreg 25mg BID Diovan 80mg BID Imdur 30mg qdaily Plavix 75mg qdaily FEN: Fluids: D5-1/2NS@75cc/hr Electrolyte abnormalities: Hypokalemia; replete KCl 10mEq IV x3 bags and Kdur liquid 40mEq; repeat in PM Nutrition: NPO for now PPX: DVT - On heparin gtt Dispo: Awaiting cultures Case discussed with Dr. Thien Rodrigues, DO - IM PGY-3 Visit type - Emergency Visit Emergency Visit: Yes ED Registration Date: 08/15/19 Care time: The patient presented to the Emergency Department on the above date and was hospitalized for further evaluation of their emergent condition. - New Patient This patient is new to me today: Yes Date on this admission: 08/16/19 - Critical Care Critical Care patient: No ATTENDING PHYSICIAN STATEMENT I saw and evaluated the patient. I reviewed the resident's note and discussed the case with the resident. I agree with the resident's findings and plan as documented. SUBJECTIVE: OBJECTIVE: ASSESSMENT AND PLAN: <Kenny Neumann - Last Filed: 08/17/19 07:14> Physical Exam: Attending Addendum I have seen and examined the indicated patient independently/along with the resident team. I have personally verified all jimenez exam findings and historical components. I have personally interpreted all diagnostics indicated per todays orders and reviewed interpretation of indicated subspecialty services. This patient meets a high level of medical complexity and warrants inpatient admission to avoid decompensation and worsening of the indicated illness. 60 minutes have been spent in the completion of this admission. S: Agree with historical findings as outlined in resident documentation regarding history of present illness. Reviewed all imaging and diagnostics. Patient has multiple consultants. Appreciate expert evaluation. Reviewed their notes. Patient has documentation of echocardiogram in their office on May 27 with borderline concentric left ventricular hypertrophy and normal LV function to mildly reduced with septal wall motion abnormality consistent with ventricular pacing along with left atrial dilation mild to moderate AR, mild MR , and mild TR. They are being managed for abdominal pain likely secondary to the gram-negative bacteremia. Surgery is following them. They are n.p.o. Gastroenterology is following them further ongoing issue with potential complications with gallstones, they are getting MRCP today. They have a AAA status post Ivar, she remains him beta-blockers and we will continue to work to control her blood pressure. The patient appears euvolemic in terms of the chronic diastolic to mildly reduced LVEF heart failure with NYHA I symptoms at maximum. We will continue the current cardiac medications as per cardiology. They remain on the heparin drip as opposed to Eliquis 10 system ROS completed and is negative aside from indicated issues in the resident/attending history of present illness and full documentation. O: All vital signs reviewed per ER records and are as per EMR NAD, AAO, Resting in bed; mentating at baseline per prior encounters NC AT EOMI PERRLA Neck supple, trachea midline, no kleber LN RRR s1/2 Lungs CTAB, w/ sym expansion NT ND +BS No skin breakdown or rashes noted CN2-12 wnl, no new focal deficits noted Muscle tone normal, no deficits in motor function or strength noted Normal mood, appropriate behavior, average insight A/P: Patient seen, examined, and discussed in depth with resident team. Problem list reviewed per resident note and agree with their discussion aside from as supplemented by myself ATTENDING PHYSICIAN STATEMENT I saw and evaluated the patient. I reviewed the resident's note and discussed the case with the resident. I agree with the resident's findings and plan as documented. SUBJECTIVE: OBJECTIVE: ASSESSMENT AND PLAN:
[2019-08-16 10:17] LABS: POTASSIUM 2.9 mmol/L (3.5-5.1)
[2019-08-16] MEDS ORDERED: POTASSIUM CHLORIDE ORAL LIQUID 20 MEQ/15 ML PO ONE (11:00)
[2019-08-16] MEDS: KCL 10 MEQ IVPB 10 MEQ/100 ML INFUS.BAG IVPB SCH ×3 (11:36→14:59)
--- NOTE | 2019-08-16 11:47 | PN ---
Progress Note, Physician History of Present Illness: patient looks much better awake alert and oriented - Current Medication List Current Medications: Active Medications Carvedilol (Coreg -) 25 mg PO BID [facility] Last Admin: 08/16/19 10:06 Dose: 25 mg Clopidogrel Bisulfate (Plavix -) 75 mg PO DAILY [facility] Last Admin: 08/16/19 10:07 Dose: 75 mg Diltiazem HCl (Cardizem Cd -) 240 mg PO DAILY [facility] Last Admin: 08/16/19 10:06 Dose: 240 mg Donepezil HCl (Aricept -) 5 mg PO DAILY [facility] Last Admin: 08/16/19 10:06 Dose: 5 mg Dorzolamide HCl (Trusopt 2%) 1 drop OU BID [facility] Last Admin: 08/16/19 10:10 Dose: 1 drop Furosemide (Lasix -) 40 mg PO DAILY [facility] Last Admin: 08/16/19 10:07 Dose: 40 mg Heparin Sodium (Porcine) (Heparin -) 1,000 unit IVPUSH PRN PRN PRN Reason: Heparin Heparin Sodium (Porcine) (Heparin -) 5,000 unit IVPUSH PRN PRN PRN Reason: Heparin Last Admin: 08/15/19 14:16 Dose: 5,000 unit Hydroxychloroquine Sulfate (Plaquenil -) 200 mg PO DAILY [facility] Last Admin: 08/16/19 10:07 Dose: 200 mg Dextrose/Sodium Chloride (D5-1/2ns -) 1,000 mls @ 75 mls/hr IV ASDIR [facility] Last Admin: 08/15/19 20:01 Dose: 75 mls/hr Vancomycin HCl (Vancomycin 1 Gm Premix -) 1 gm in 200 mls @ 200 mls/hr IVPB Q12H [facility] Heparin Sodium (Porcine) 25, (000 unit/ Sodium Chloride) 500 mls @ 20 mls/hr IV TITR JONAS; Protocol Last Admin: 08/15/19 22:38 Dose: 950 unit/hr, 19 mls/hr Meropenem 1 gm/ Dextrose 100 mls @ 200 mls/hr IVPB Q12H [facility] Last Admin: 08/16/19 10:08 Dose: 200 mls/hr Potassium Chloride (Potassium Chloride 10 Meq Premix Ivpb -) 10 meq in 100 mls @ 100 mls/hr IVPB Q60M [facility] Stop: 08/16/19 13:29 Last Admin: 08/16/19 11:36 Dose: 100 mls/hr Insulin Aspart (Novolog Vial Sliding Scale -) 1 vial SQ ACHS [facility]; Protocol Last Admin: 08/16/19 06:16 Dose: 2 units Isosorbide Mononitrate (Imdur -) 30 mg PO DAILY [facility] Latanoprost (Xalatan 0.005% Eye Drops -) 1 drop OU HS [facility] Last Admin: 08/15/19 22:04 Dose: 1 drop Ondansetron HCl (Zofran Injection) 4 mg IVPUSH Q6H PRN PRN Reason: NAUSEA Pantoprazole Sodium (Protonix -) 40 mg PO DAILY [facility] Last Admin: 08/16/19 10:07 Dose: 40 mg Rosuvastatin Calcium (Crestor -) 5 mg PO HS [facility] Last Admin: 08/15/19 21:45 Dose: 5 mg Timolol Maleate (Timoptic 0.5%) 1 drop OU BID [facility] Last Admin: 08/16/19 10:10 Dose: 1 drop Valsartan (Diovan -) 80 mg PO BID [facility] Last Admin: 08/16/19 10:07 Dose: 80 mg - Objective Vital Signs: Vital Signs Temperature 99.7 F H 08/16/19 06:00 Pulse Rate 60 08/16/19 06:00 Respiratory Rate 20 08/16/19 06:00 Blood Pressure 165/68 08/16/19 06:00 O2 Sat by Pulse Oximetry (%) 98 08/15/19 21:00 Constitutional: Yes: No Distress, Calm Cardiovascular: Yes: S1, S2 Respiratory: Yes: Regular, CTA Bilaterally Gastrointestinal: Yes: Normal Bowel Sounds, Soft Musculoskeletal: Yes: WNL Extremities: Yes: WNL Neurological: Yes: Alert, Oriented Psychiatric: Yes: Alert, Oriented Labs: CBC, BMP 08/15/19 14:30 08/16/19 06:55 INR, PTT INR 1.78 (0.83-1.09) H 08/14/19 21:32 Assessment/Plan abdominal pain afib s/p PPM HTN CAD AAA s/p EVAR chronic diastolic HF gm negative bacteremia uti plan continue abx repeat blood cx rest as per the team
[2019-08-16] MEDS ORDERED: INSULIN (NOVOLOG) ASPART 100 UNITS/ML 10ML VIAL ONE (11:59)
[2019-08-16] MEDS ORDERED: LIDOCAINE 5% TOPICAL PATCH TP ONE (12:14)
[2019-08-16] MEDS: ISOSORBIDE MONONITRATE 30 MG TAB.SR.24H (FP) PO SCH (12:22)
[2019-08-16 13:42] LABS: MAGNESIUM 1.7 mg/dL (1.8-2.4)
[2019-08-16] MEDS: DEXTROSE 5%-0.45% SALINE 1,000 ML IV SCH ×2 (14:58→20:06)
--- NOTE | 2019-08-16 15:49 | PN ---
Progress Note (short form) - Note Progress Note: s: no cp sob palps dizzy Current Medications Generic Name Dose Route Start Last Admin Trade Name Freq PRN Reason Stop Dose Admin Carvedilol 25 mg 08/15/19 10:00 08/16/19 10:06 Coreg - PO 25 mg BID JONAS Administration Clopidogrel Bisulfate 75 mg 08/16/19 10:00 08/16/19 10:07 Plavix - PO 75 mg DAILY JONAS Administration Diltiazem HCl 240 mg 08/15/19 10:00 08/16/19 10:06 Cardizem Cd - PO 240 mg DAILY JONAS Administration Donepezil HCl 5 mg 08/15/19 10:00 08/16/19 10:06 Aricept - PO 5 mg DAILY JONAS Administration Dorzolamide HCl 1 drop 08/15/19 10:00 08/16/19 10:10 Trusopt 2% OU 1 drop BID JONAS Administration Furosemide 40 mg 08/15/19 10:00 08/16/19 10:07 Lasix - PO 40 mg DAILY JONAS Administration Heparin Sodium (Porcine) 1,000 unit 08/15/19 11:51 Heparin - IVPUSH PRN PRN Heparin Heparin Sodium (Porcine) 5,000 unit 08/15/19 11:51 08/15/19 14:16 Heparin - IVPUSH 5,000 unit PRN PRN Administration Heparin Hydroxychloroquine Sulfate 200 mg 08/16/19 10:00 08/16/19 10:07 Plaquenil - PO 200 mg DAILY JONAS Administration Dextrose/Sodium Chloride 1,000 mls @ 75 mls/hr 08/15/19 07:30 08/16/19 14:58 D5-1/2ns - IV 75 mls/hr ASDIR JONAS Administration Vancomycin HCl 1 gm in 200 mls @ 200 mls/hr 08/15/19 07:30 Vancomycin 1 Gm Premix - IVPB Q12H JONAS Heparin Sodium (Porcine) 25, 500 mls @ 20 mls/hr 08/15/19 12:00 08/15/19 22: 38 000 unit/ Sodium Chloride IV 950 unit/hr TITR JONAS 19 mls/hr Administration Protocol 1,000 UNIT/HR Meropenem 1 gm/ Dextrose 100 mls @ 200 mls/hr 08/15/19 21:00 08/16/19 10:08 IVPB 200 mls/hr Q12H JONAS Administration Insulin Aspart 1 vial 08/15/19 11:00 08/16/19 12:21 Novolog Vial Sliding Scale - SQ 4 units ACHS JNOAS Administration Protocol Isosorbide Mononitrate 30 mg 08/16/19 10:00 08/16/19 12:22 Imdur - PO 30 mg DAILY JONAS Administration Latanoprost 1 drop 08/15/19 22:00 08/15/19 22:04 Xalatan 0.005% Eye Drops - OU 1 drop HS JONAS Administration Miscellaneous 1 each 08/16/19 22:00 Lidoderm Patch Removal MC 08/16/19 22:01 ONCE ONE Ondansetron HCl 4 mg 08/15/19 07:27 Zofran Injection IVPUSH Q6H PRN NAUSEA Pantoprazole Sodium 40 mg 08/16/19 10:00 08/16/19 10:07 Protonix - PO 40 mg DAILY JONAS Administration Rosuvastatin Calcium 5 mg 08/15/19 22:00 08/15/19 21:45 Crestor - PO 5 mg HS JONAS Administration Timolol Maleate 1 drop 08/15/19 10:00 08/16/19 10:10 Timoptic 0.5% OU 1 drop BID JONAS Administration Valsartan 80 mg 08/15/19 10:00 08/16/19 10:07 Diovan - PO 80 mg BID JONAS Administration Vital Signs Period Temp Pulse Resp BP Sys/Nowak Pulse Ox Last 24 Hr 98.2 F-99.7 F 60-62 18-20 114-165/55-68 98-98 Constitutional: Yes: No Distress, Calm Eyes: Yes: Conjunctiva Clear Neck: Yes: Supple, Trachea Midline Respiratory: Yes: Regular, CTA Bilaterally nl eff Gastrointestinal: Yes: Normal Bowel Sounds, Soft Cardiovascular: Yes: Regular Rate and Rhythm PMI: Non-Displaced Extremities: No: Cold Edema: No Integumentary: No: Jaundice Neurological: Yes: Alert, Oriented Psychiatric: No: Agitated - Other Data Labs, Other Data: CBC, BMP 08/15/19 14:30 08/16/19 06:55 Assessment/Plan echo in office 05/2019 tds, borderline conc LVH, overall LV function grossly borderline to mildly reduced, septal wall motion c/w V pacing, LA mildly dilated , mild to mod AR, mild MR, mild TR EKG: AP, LBBB simlar to prior tele: ap abdominal pain - surgery evaluated - no acute indication for surgery - NPO, GI, ID following, on abx afib s/p PPM - holding eliquis for now, cont heparin gtt. Resume eliquis when able - outpatient ppm monitoring HTN - cont current meds CAD - remote PCI, cont plavix, statin AAA s/p EVAR - cont bb, bp control - vascular eval chronic diastolic HF - appears euvolemic, cont current cardiac meds
[2019-08-16] MEDS: HEPARIN - 25,000 UNIT in SODIUM CHLORIDE 495 ML IV SCH (20:06)
[2019-08-16] MEDS ORDERED: LIDOCAINE PATCH REMOVAL MC ONE (22:00)
[2019-08-16] MEDS: ROSUVASTATIN CA 5 MG TABLET (FP) PO SCH (22:33)
[2019-08-16] MEDS: LATANOPROST 0.005% OPHTH SOLN 2.5ML BOTTLE OU SCH (22:47)
[2019-08-17] MEDS: INSULIN SLIDING SCALE (NOVOLOG) 1 VIAL SQ SCH ×4 (06:35→22:49)
[2019-08-17] MEDS: VANCOMYCIN 1 GM PREMIX - 1 GM/200 ML BAG IVPB SCH (07:28)
[2019-08-17 07:49] LABS: HEMATOCRIT 32.8 % (32.4-45.2); HEMOGLOBIN 11.2 GM/dL (10.7-15.3); MCH 31.8 pg (25.7-33.7); MCHC 34.1 g/dl (32.0-36.0); MEAN CELL VOLUME 93.3 fl (80-96); MEAN PLT VOLUME 8.8 fl (7.5-11.1); PLATELET COUNT 155 K/MM3 (134-434); RBC 3.51 M/mm3 (3.60-5.2); RDW 12.8 % (11.6-15.6); WHITE BLOOD COUNT 3.8 K/mm3 (4.0-10.0)
--- NOTE | 2019-08-17 08:03 | PN ---
Progress Note, Physician History of Present Illness: GI FOLLOW UP NOTE Patient examined and case discussed with Dr Delacruz Patient states abdominal pain is slightly better, pain is located to L side of abdomen. Patient denies nausea, vomiting, diarrhea, rectal bleeding or melena. This morning lab results pending. However, recent labs showing downtrend in LFTs. - Current Medication List Current Medications: Active Medications Carvedilol (Coreg -) 25 mg PO BID [facility] Last Admin: 08/16/19 22:32 Dose: 25 mg Clopidogrel Bisulfate (Plavix -) 75 mg PO DAILY [facility] Last Admin: 08/16/19 10:07 Dose: 75 mg Diltiazem HCl (Cardizem Cd -) 240 mg PO DAILY [facility] Last Admin: 08/16/19 10:06 Dose: 240 mg Donepezil HCl (Aricept -) 5 mg PO DAILY [facility] Last Admin: 08/16/19 10:06 Dose: 5 mg Dorzolamide HCl (Trusopt 2%) 1 drop OU BID [facility] Last Admin: 08/16/19 22:47 Dose: 1 drop Furosemide (Lasix -) 40 mg PO DAILY [facility] Last Admin: 08/16/19 10:07 Dose: 40 mg Heparin Sodium (Porcine) (Heparin -) 1,000 unit IVPUSH PRN PRN PRN Reason: Heparin Heparin Sodium (Porcine) (Heparin -) 5,000 unit IVPUSH PRN PRN PRN Reason: Heparin Last Admin: 08/15/19 14:16 Dose: 5,000 unit Hydroxychloroquine Sulfate (Plaquenil -) 200 mg PO DAILY [facility] Last Admin: 08/16/19 10:07 Dose: 200 mg Dextrose/Sodium Chloride (D5-1/2ns -) 1,000 mls @ 75 mls/hr IV ASDIR [facility] Last Admin: 08/16/19 20:06 Dose: Not Given Heparin Sodium (Porcine) 25, (000 unit/ Sodium Chloride) 500 mls @ 20 mls/hr IV TITR [facility]; Protocol Last Admin: 08/16/19 20:06 Dose: Not Given Meropenem 1 gm/ Dextrose 100 mls @ 200 mls/hr IVPB Q12H [facility] Last Admin: 08/16/19 22:32 Dose: 200 mls/hr Insulin Aspart (Novolog Vial Sliding Scale -) 1 vial SQ ACHS [facility]; Protocol Last Admin: 08/17/19 06:35 Dose: 2 units Isosorbide Mononitrate (Imdur -) 30 mg PO DAILY [facility] Last Admin: 08/16/19 12:22 Dose: 30 mg Latanoprost (Xalatan 0.005% Eye Drops -) 1 drop OU HS [facility] Last Admin: 08/16/19 22:47 Dose: 1 drop Ondansetron HCl (Zofran Injection) 4 mg IVPUSH Q6H PRN PRN Reason: NAUSEA Pantoprazole Sodium (Protonix -) 40 mg PO DAILY [facility] Last Admin: 08/16/19 10:07 Dose: 40 mg Rosuvastatin Calcium (Crestor -) 5 mg PO HS [facility] Last Admin: 08/16/19 22:33 Dose: 5 mg Timolol Maleate (Timoptic 0.5%) 1 drop OU BID [facility] Last Admin: 08/16/19 22:48 Dose: 1 drop Valsartan (Diovan -) 80 mg PO BID [facility] Last Admin: 08/16/19 22:33 Dose: 80 mg - Objective Vital Signs: Vital Signs Temperature 98.3 F 08/17/19 06:00 Pulse Rate 60 08/17/19 06:00 Respiratory Rate 20 08/17/19 06:00 Blood Pressure 150/97 08/17/19 06:00 O2 Sat by Pulse Oximetry (%) 98 08/16/19 20:48 Constitutional: Yes: No Distress, Calm Eyes: Yes: Conjunctiva Clear HENT: Yes: Atraumatic Cardiovascular: Yes: Regular Rate and Rhythm Respiratory: Yes: Regular, CTA Bilaterally Gastrointestinal: Yes: Normal Bowel Sounds, Soft, Tenderness (LUQ, L abdominal) , Tenderness, Epigastrium Neurological: Yes: Alert, Pre-Existing Deficit Psychiatric: Yes: Alert Labs: INR, PTT INR 1.78 (0.83-1.09) H 08/14/19 21:32 <Shannon Mendoza - Last Filed: 08/17/19 07:58> - Current Medication List Current Medications: Active Medications Carvedilol (Coreg -) 25 mg PO BID [facility] Last Admin: 08/17/19 12:27 Dose: 25 mg Clopidogrel Bisulfate (Plavix -) 75 mg PO DAILY [facility] Last Admin: 08/17/19 12:27 Dose: 75 mg Diltiazem HCl (Cardizem Cd -) 240 mg PO DAILY [facility] Last Admin: 08/17/19 12:27 Dose: 240 mg Donepezil HCl (Aricept -) 5 mg PO DAILY [facility] Last Admin: 08/17/19 12:27 Dose: 5 mg Dorzolamide HCl (Trusopt 2%) 1 drop OU BID [facility] Last Admin: 08/17/19 12:28 Dose: 1 drop Furosemide (Lasix -) 40 mg PO DAILY [facility] Last Admin: 08/17/19 12:27 Dose: 40 mg Heparin Sodium (Porcine) (Heparin -) 1,000 unit IVPUSH PRN PRN PRN Reason: Heparin Heparin Sodium (Porcine) (Heparin -) 5,000 unit IVPUSH PRN PRN PRN Reason: Heparin Last Admin: 08/15/19 14:16 Dose: 5,000 unit Hydroxychloroquine Sulfate (Plaquenil -) 200 mg PO DAILY [facility] Last Admin: 08/17/19 12:27 Dose: 200 mg Dextrose/Sodium Chloride (D5-1/2ns -) 1,000 mls @ 75 mls/hr IV ASDIR JONAS Last Admin: 08/17/19 08:43 Dose: 75 mls/hr Heparin Sodium (Porcine) 25, (000 unit/ Sodium Chloride) 500 mls @ 20 mls/hr IV TITR JONAS; Protocol Last Admin: 08/17/19 12:31 Dose: 950 unit/hr, 19 mls/hr Meropenem 1 gm/ Dextrose 100 mls @ 200 mls/hr IVPB Q12H [facility] Last Admin: 08/17/19 08:43 Dose: 200 mls/hr Insulin Aspart (Novolog Vial Sliding Scale -) 1 vial SQ ACHS [facility]; Protocol Last Admin: 08/17/19 16:45 Dose: 4 units Isosorbide Mononitrate (Imdur -) 30 mg PO DAILY [facility] Last Admin: 08/17/19 12:27 Dose: 30 mg Latanoprost (Xalatan 0.005% Eye Drops -) 1 drop OU HS [facility] Last Admin: 08/16/19 22:47 Dose: 1 drop Ondansetron HCl (Zofran Injection) 4 mg IVPUSH Q6H PRN PRN Reason: NAUSEA Pantoprazole Sodium (Protonix -) 40 mg PO DAILY [facility] Last Admin: 08/17/19 12:27 Dose: 40 mg Potassium Chloride (Potassium Chloride Oral Liquid) 40 meq PO BID [facility] Stop: 08/17/19 22:01 Last Admin: 08/17/19 14:05 Dose: 40 meq Rosuvastatin Calcium (Crestor -) 5 mg PO HS [facility] Last Admin: 08/16/19 22:33 Dose: 5 mg Timolol Maleate (Timoptic 0.5%) 1 drop OU BID [facility] Last Admin: 08/17/19 12:28 Dose: 1 drop Valsartan (Diovan -) 80 mg PO BID [facility] Last Admin: 08/17/19 12:27 Dose: 80 mg - Objective Vital Signs: Vital Signs Temperature 98.2 F 08/17/19 14:00 Pulse Rate 63 08/17/19 14:00 Respiratory Rate 20 08/17/19 14:00 Blood Pressure 154/60 08/17/19 14:00 O2 Sat by Pulse Oximetry (%) 98 08/16/19 20:48 Labs: CBC, BMP 08/17/19 06:30 08/17/19 06:30 INR, PTT INR 1.78 (0.83-1.09) H 08/14/19 21:32 <Vinod Delacruz - Last Filed: 08/17/19 20:22> Problem List - Problems (1) Abdominal pain Assessment/Plan: -Abdominal CT scan reviewed and noted with AAA measuring 5.3 x 5.1cm -Vascular consult -monitor BP Code(s): R10.9 - UNSPECIFIED ABDOMINAL PAIN (2) Abnormal liver function test Assessment/Plan: -monitor LFTs daily -unable to have MRCP due to pacemaker -LFTs showing downtrend AST 648~106, ALT 347~161, Alk Phos 215~182 -Abd US shows diffuse fatty infiltration of liver Code(s): R94.5 - ABNORMAL RESULTS OF LIVER FUNCTION STUDIES (3) Cholecystitis Assessment/Plan: -Surgery consult Code(s): K81.9 - CHOLECYSTITIS, UNSPECIFIED <Shannon Mendoza - Last Filed: 08/17/19 07:58> - Problems (1) Abdominal pain Code(s): R10.9 - UNSPECIFIED ABDOMINAL PAIN (2) Abnormal liver function test Assessment/Plan: unlikely patient has cholecystitis, elevated liver enzymes may be secondary to Eliquis and Aricept. Aricept can also induce nausea and vomiting Code(s): R94.5 - ABNORMAL RESULTS OF LIVER FUNCTION STUDIES <Vinod Delacruz - Last Filed: 08/17/19 20:22>
[2019-08-17] MEDS ORDERED: MEROPENEM 1 GM VIAL (RESTRICTED TO ID) IVPB ONE ×2 (08:39→20:04)
[2019-08-17] MEDS ORDERED: DEXTROSE 5%-WATER 100 ML IVPB ONE ×2 (08:39→20:04)
[2019-08-17] MEDS: DEXTROSE 5%-0.45% SALINE 1,000 ML IV SCH ×2 (08:43→22:52)
[2019-08-17] MEDS: MEROPENEM 1 GM in DEXTROSE 5%-WATER 100 ML IVPB SCH ×2 (08:43→20:24)
[2019-08-17 08:50] LABS: ALBUMIN 2.9 g/dl (3.4-5.0); BILIRUBIN,TOTAL 0.8 mg/dL (0.2-1); BLOOD UREA NITROGEN 7.4 mg/dL (7-18); CALCIUM 8.7 mg/dL (8.5-10.1); CREATININE 1.3 mg/dL (0.55-1.3); POTASSIUM 3.3 mmol/L (3.5-5.1); TOT PROT 5.8 g/dl (6.4-8.2)
--- NOTE | 2019-08-17 11:45 | PN ---
Progress Note (short form) - Note Progress Note: s: no cp sob palps dizzy Current Medications Generic Name Dose Route Start Last Admin Trade Name Freq PRN Reason Stop Dose Admin Carvedilol 25 mg 08/15/19 10:00 08/16/19 22:32 Coreg - PO 25 mg BID JONAS Administration Clopidogrel Bisulfate 75 mg 08/16/19 10:00 08/16/19 10:07 Plavix - PO 75 mg DAILY JONAS Administration Diltiazem HCl 240 mg 08/15/19 10:00 08/16/19 10:06 Cardizem Cd - PO 240 mg DAILY JONAS Administration Donepezil HCl 5 mg 08/15/19 10:00 08/16/19 10:06 Aricept - PO 5 mg DAILY JONAS Administration Dorzolamide HCl 1 drop 08/15/19 10:00 08/16/19 22:47 Trusopt 2% OU 1 drop BID JONAS Administration Furosemide 40 mg 08/15/19 10:00 08/16/19 10:07 Lasix - PO 40 mg DAILY JONAS Administration Heparin Sodium (Porcine) 1,000 unit 08/15/19 11:51 Heparin - IVPUSH PRN PRN Heparin Heparin Sodium (Porcine) 5,000 unit 08/15/19 11:51 08/15/19 14:16 Heparin - IVPUSH 5,000 unit PRN PRN Administration Heparin Hydroxychloroquine Sulfate 200 mg 08/16/19 10:00 08/16/19 10:07 Plaquenil - PO 200 mg DAILY JONAS Administration Dextrose/Sodium Chloride 1,000 mls @ 75 mls/hr 08/15/19 07:30 08/17/19 08:43 D5-1/2ns - IV 75 mls/hr ASDIR JONAS Administration Heparin Sodium (Porcine) 25, 500 mls @ 20 mls/hr 08/15/19 12:00 08/16/19 20: 06 000 unit/ Sodium Chloride IV Not Given TITR JONAS Protocol 1,000 UNIT/HR Meropenem 1 gm/ Dextrose 100 mls @ 200 mls/hr 08/15/19 21:00 08/17/19 08:43 IVPB 200 mls/hr Q12H JONAS Administration Insulin Aspart 1 vial 08/15/19 11:00 08/17/19 06:35 Novolog Vial Sliding Scale - SQ 2 units ACHS JONAS Administration Protocol Isosorbide Mononitrate 30 mg 08/16/19 10:00 08/16/19 12:22 Imdur - PO 30 mg DAILY JONAS Administration Latanoprost 1 drop 08/15/19 22:00 08/16/19 22:47 Xalatan 0.005% Eye Drops - OU 1 drop HS JONAS Administration Ondansetron HCl 4 mg 08/15/19 07:27 Zofran Injection IVPUSH Q6H PRN NAUSEA Pantoprazole Sodium 40 mg 08/16/19 10:00 08/16/19 10:07 Protonix - PO 40 mg DAILY JONAS Administration Rosuvastatin Calcium 5 mg 08/15/19 22:00 08/16/19 22:33 Crestor - PO 5 mg HS JONAS Administration Timolol Maleate 1 drop 08/15/19 10:00 08/16/19 22:48 Timoptic 0.5% OU 1 drop BID JONAS Administration Valsartan 80 mg 08/15/19 10:00 08/16/19 22:33 Diovan - PO 80 mg BID JONAS Administration Vital Signs Period Temp Pulse Resp BP Sys/[place]ak Pulse Ox Last 24 Hr 97.7 F-99.4 F 60-62 18-20 129-154/63-97 98 Constitutional: Yes: No Distress, Calm Eyes: Yes: Conjunctiva Clear Neck: Yes: Supple, Trachea Midline Respiratory: Yes: Regular, CTA Bilaterally nl eff Gastrointestinal: Yes: Normal Bowel Sounds, Soft Cardiovascular: Yes: Regular Rate and Rhythm PMI: Non-Displaced Extremities: No: Cold Edema: No Integumentary: No: Jaundice Neurological: Yes: Alert, Oriented Psychiatric: No: Agitated - Other Data Labs, Other Data: CBC, BMP 08/17/19 06:30 08/17/19 06:30 Assessment/Plan echo in office 05/2019 tds, borderline conc LVH, overall LV function grossly borderline to mildly reduced, septal wall motion c/w V pacing, LA mildly dilated , mild to mod AR, mild MR, mild TR EKG: AP, LBBB simlar to prior abdominal pain - surgery evaluated - no acute indication for surgery - GI, ID following, on abx afib s/p PPM - holding eliquis for now, cont heparin gtt. Resume eliquis when able - outpatient ppm monitoring HTN - cont current meds CAD - remote PCI, cont plavix, statin AAA s/p EVAR - cont bb, bp control - vascular eval chronic diastolic HF - appears euvolemic, cont current cardiac meds
--- NOTE | 2019-08-17 12:09 | PN ---
Progress Note (short form) - Note Progress Note: Pt seen and examined, Reports she continues to have some diffuse abdominal pain , though slightly improved from yesterday. Has been oob to restroom. Tolerating clears, denies n/v. Reports normal Bm yesterday. Denies cp/sob. Vital Signs Temp 98.3 F 08/17/19 06:00 Pulse 60 08/17/19 06:00 Resp 20 08/17/19 06:00 BP 150/97 08/17/19 06:00 Pulse Ox 98 08/16/19 20:48 Intake & Output 08/16/19 08/17/19 08/17/19 23:59 11:59 23:59 Intake Total 1274.6 1318 Balance 1274.6 1318 Intake: IV 774.6 1118 D5-1/2Ns - 1,000 ml @ 75 558 900 mls/hr IV ASDIR JONAS Rx#: [id number] Heparin - 25,000 Unit In 216.6 218 Normal Saline - 495 ml @ 1,000 UNIT/HR 20 mls/hr IV TITR JONAS Rx#: [id number] IVPB 400 100 Oral 100 100 Other: Voiding Method Bedpan # Unmeasured Voids Void 2 1 Bowel Movement Yes # Bowel Movements 1 Weight Measurement Method Standing Scale CBC, BMP 08/17/19 06:30 08/17/19 06:30 Gen:awake, alert, nad Resp: Unlabored on RA Abdo: mildly ttp diffusely, no distention, no guarding or rebound. +bowel sounds A/P: 74 y/o F w/ PMHx afib s/p PPM (medtronic) on AC, CVA, Equivocal Lupus Anticoagulant AB (followed by Rheum and Heme at [facility]), DVT, HTN, renal artery stenosis, CKD, hx pericardial effusion, chronic diastolic HF, AAA s/p EVAR, dementia a/w abd pain, currently being worked up for GB pathology. Awaiting HIDA scan results (cannot get MRCP due to Pacemaker) Abdominal exam stable LFTS trending down Tolerating clears Of note pt with h/o AAA s/p repair in [place]. Has been seen by her Vascular surgeon this month and was told aneurysm is stable. Of note there is partial imaging of the aneurysm from 2018 in EMR which was assessed by the radiologist and reported to be stable per current imaging done this admission.-d/w attend Dr Stroud -reconsult surgery prn
[2019-08-17] MEDS ORDERED: INSULIN (NOVOLOG) ASPART 100 UNITS/ML 10ML VIAL ONE (12:21)
[2019-08-17] MEDS ORDERED: PT OWN MED DRAWER 7, Y5N ONE ×2 (12:23→12:30)
[2019-08-17] MEDS: DONEPEZIL HCL 5 MG TABLET (FP) PO SCH (12:27)
[2019-08-17] MEDS: ISOSORBIDE MONONITRATE 30 MG TAB.SR.24H (FP) PO SCH (12:27)
[2019-08-17] MEDS: CARVEDILOL 25 MG TABLET (FP) PO SCH ×2 (12:27→22:52)
[2019-08-17] MEDS: HYDROXYCHLOROQUINE SO4 200 MG TABLET (FP) PO SCH (12:27)
[2019-08-17] MEDS: CLOPIDOGREL BISULFATE 75 MG TABLET (FP) PO SCH (12:27)
[2019-08-17] MEDS: FUROSEMIDE 40 MG TABLET (FP) PO SCH (12:27)
[2019-08-17] MEDS: VALSARTAN 80 MG TABLET (UD) PO SCH ×2 (12:27→22:52)
[2019-08-17] MEDS: PANTOPRAZOLE 40 MG TABLET (FP) PO SCH (12:27)
[2019-08-17] MEDS: TIMOLOL 0.5% OPHTHALMIC SOL 5 ML BOTTLE OU SCH ×2 (12:28→22:51)
[2019-08-17] MEDS: DORZOLAMIDE 2% HCL OPHTHALMIC SOLUTION 10 ML BOTTLE OU SCH ×2 (12:28→22:51)
[2019-08-17] MEDS: HEPARIN - 25,000 UNIT in SODIUM CHLORIDE 495 ML IV SCH (12:31)
--- NOTE | 2019-08-17 12:39 | PN ---
Addendum entered and electronically signed by Flavio Rodrigues, RESIDENT 08/17/19 12:54: Ordered HIDA to r/o biliary ductal obstruction. HIDA shows normal GB and biliary flow Original Note: <Flavio Rodrigues - Last Filed: 08/17/19 12:53> Physical Exam: SUBJECTIVE: Pt much more awake today. Pt denies any compliants and no acute events overnight today. OBJECTIVE: Vital Signs Period Temp Pulse Resp BP Sys/[place] Pulse Ox Last 24 Hr 97.7 F-99.4 F 60-62 18-20 129-154/63-97 98 GENERAL: The patient is awake, alert, and fully oriented, in no acute distress. HEENT: NC/AT, JONAS, sclera anicteric, MMM, dentures + NECK: No JVD LUNGS: CTA bilaterally, no wheezes, no crackles, no accessory muscle use. HEART: RRR, S1, S2 without murmur ABDOMEN: Soft, NT/ND, normoactive bowel sounds, no guarding EXTREMITIES: 2+ DP pulses, warm, well-perfused, no edema. PSYCH: Normal mood, normal affect. SKIN: Warm, dry, no rashes or lesions noted Laboratory Results - last 24 hr 08/16/19 08/16/19 08/16/19 06:55 17:12 21:43 WBC RBC Hgb Hct MCV MCH MCHC RDW Plt Count MPV PTT (Actin FS) Sodium 140 Potassium 2.9 L* Chloride 104 Carbon Dioxide 27 Anion Gap 9 BUN 10.5 Creatinine 1.6 H Est GFR (CKD-EPI)AfAm 36.16 Est GFR (CKD-EPI)NonAf 31.20 POC Glucometer 177 162 Random Glucose 182 H Calcium 8.6 Magnesium 1.7 L Total Bilirubin 1.6 H AST 106 H ALT 161 H Alkaline Phosphatase 182 H Total Protein 6.0 L Albumin 2.9 L 08/17/19 08/17/19 08/17/19 05:38 06:30 06:30 WBC 3.8 L RBC 3.51 L Hgb 11.2 Hct 32.8 MCV 93.3 MCH 31.8 MCHC 34.1 RDW 12.8 Plt Count 155 MPV 8.8 PTT (Actin FS) 61.2 H Sodium Potassium Chloride Carbon Dioxide Anion Gap BUN Creatinine Est GFR (CKD-EPI)AfAm Est GFR (CKD-EPI)NonAf POC Glucometer 158 Random Glucose Calcium Magnesium Total Bilirubin AST ALT Alkaline Phosphatase Total Protein Albumin 08/17/19 08/17/19 06:30 12:26 WBC RBC Hgb Hct MCV MCH MCHC RDW Plt Count MPV PTT (Actin FS) Sodium 142 Potassium 3.3 L Chloride 107 Carbon Dioxide 28 Anion Gap 7 L BUN 7.4 Creatinine 1.3 Est GFR (CKD-EPI)AfAm 46.47 Est GFR (CKD-EPI)NonAf 40.10 POC Glucometer 181 Random Glucose 165 H Calcium 8.7 Magnesium Total Bilirubin 0.8 AST 50 H ALT 112 H Alkaline Phosphatase 158 H Total Protein 5.8 L Albumin 2.9 L Active Medications Generic Name Dose Route Start Last Admin Trade Name Freq PRN Reason Stop Dose Admin Carvedilol 25 mg 08/15/19 10:00 08/17/19 12:27 Coreg - PO 25 mg BID JONAS Administration Clopidogrel Bisulfate 75 mg 08/16/19 10:00 08/17/19 12:27 Plavix - PO 75 mg DAILY JONAS Administration Diltiazem HCl 240 mg 08/15/19 10:00 08/17/19 12:27 Cardizem Cd - PO 240 mg DAILY JONAS Administration Donepezil HCl 5 mg 08/15/19 10:00 08/17/19 12:27 Aricept - PO 5 mg DAILY JONAS Administration Dorzolamide HCl 1 drop 08/15/19 10:00 08/17/19 12:28 Trusopt 2% OU 1 drop BID JONAS Administration Furosemide 40 mg 08/15/19 10:00 08/17/19 12:27 Lasix - PO 40 mg DAILY JONAS Administration Heparin Sodium (Porcine) 1,000 unit 08/15/19 11:51 Heparin - IVPUSH PRN PRN Heparin Heparin Sodium (Porcine) 5,000 unit 08/15/19 11:51 08/15/19 14:16 Heparin - IVPUSH 5,000 unit PRN PRN Administration Heparin Hydroxychloroquine Sulfate 200 mg 08/16/19 10:00 08/17/19 12:27 Plaquenil - PO 200 mg DAILY JONAS Administration Dextrose/Sodium Chloride 1,000 mls @ 75 mls/hr 08/15/19 07:30 08/17/19 08:43 D5-1/2ns - IV 75 mls/hr ASDIR JONAS Administration Heparin Sodium (Porcine) 25, 500 mls @ 20 mls/hr 08/15/19 12:00 08/17/19 12: 31 000 unit/ Sodium Chloride IV 950 unit/hr TITR JONAS 19 mls/hr Administration Protocol 1,000 UNIT/HR Meropenem 1 gm/ Dextrose 100 mls @ 200 mls/hr 08/15/19 21:00 08/17/19 08:43 IVPB 200 mls/hr Q12H JONAS Administration Insulin Aspart 1 vial 08/15/19 11:00 08/17/19 12:27 Novolog Vial Sliding Scale - SQ 2 units ACHS JONAS Administration Protocol Isosorbide Mononitrate 30 mg 08/16/19 10:00 08/17/19 12:27 Imdur - PO 30 mg DAILY JONAS Administration Latanoprost 1 drop 08/15/19 22:00 08/16/19 22:47 Xalatan 0.005% Eye Drops - OU 1 drop HS JONAS Administration Ondansetron HCl 4 mg 08/15/19 07:27 Zofran Injection IVPUSH Q6H PRN NAUSEA Pantoprazole Sodium 40 mg 08/16/19 10:00 08/17/19 12:27 Protonix - PO 40 mg DAILY JONAS Administration Rosuvastatin Calcium 5 mg 08/15/19 22:00 08/16/19 22:33 Crestor - PO 5 mg HS JONAS Administration Timolol Maleate 1 drop 08/15/19 10:00 08/17/19 12:28 Timoptic 0.5% OU 1 drop BID JONAS Administration Valsartan 80 mg 08/15/19 10:00 08/17/19 12:27 Diovan - PO 80 mg BID JONAS Administration ASSESSMENT/PLAN: Urinary tract infection with ESBL Bacteremia Abdominal aortic aneurysm Transaminitis Hypokalemia Lupus with lupus anticoagulant Atrophic R 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 prior) --Appeciate all consultation recommendations --Vascular surgery consult placed for seemingly increasing AAA --Will contact outpatient physician Dr. Zamarripa for outpatient records regarding size (last appointment 1 week) --Maintain strict BP and HR goals; pt home medications due to this AM --Continue Meropenem due to ESBL bacteremia --Isolation precautions --Reviewed cultures and sensitivies; awaiting clearance of most recent --Dr. Delacruz on board --Cannot perform MRCP due to PPM --LFTs trending down --Possibility of medication interactions? --Monitor LFTs and avoid hepatotoxic agents --Continue home lupus medications --Continue home medications as below: Cardizem 240mg qdaily Coreg 25mg BID Diovan 80mg BID Imdur 30mg qdaily Plavix 75mg qdaily FEN: Fluids: Can discontinue it pt tolerates new diet Electrolyte abnormalities: Hypokalemia; Kdur liquid 40mEq 2 doses only Nutrition: Advanced to clear liquid per GI PPX: DVT - On heparin gtt Dispo: Awaiting culture clearance Case discussed with Dr. Thien Rodrigues, DO - IM PGY-3 Visit type - Emergency Visit Emergency Visit: Yes ED Registration Date: 08/15/19 Care time: The patient presented to the Emergency Department on the above date and was hospitalized for further evaluation of their emergent condition. - New Patient This patient is new to me today: No - Critical Care Critical Care patient: No - Discharge Referral Referred to [facility] Med [facility].C[facility] No ATTENDING PHYSICIAN STATEMENT I saw and evaluated the patient. I reviewed the resident's note and discussed the case with the resident. I agree with the resident's findings and plan as documented. SUBJECTIVE: OBJECTIVE: ASSESSMENT AND PLAN: <Kenny Neuamnn - Last Filed: 08/20/19 10:39> Physical Exam: Seen and examined; personally verified all jimenez historical and PE information. Agree with resident problem list as indicated. Assessment and plan as described above is accurate except from as I have chosen to supplement. S: No new complaints; no events overnight 10 sys ROS done and negative aside from HPI O: All VS, labs, imaging, and other diagnostics independently reviewed and interpreted GENERAL: The patient is awake, alert, and fully oriented, in no acute distress. HEAD: Normal with no signs of trauma. EYES: PERRL, extraocular movements intact, sclera anicteric, conjunctiva clear ENT: Ears normal, nares patent, oropharynx clear without exudates NECK: Trachea midline, full range of motion, supple. LUNGS: Breath sounds equal, clear to auscultation bilaterally, no wheezes, no crackles, no accessory muscle use. HEART: Regular rate and rhythm, S1, S2 no new mgr ABDOMEN: Soft, nontender, nondistended, normoactive bowel sounds, no guarding EXTREMITIES: 2+ pulses, warm, well-perfused, no edema. NEUROLOGICAL: Cranial nerves II through XII grossly intact. Normal speech PSYCH: Normal mood, normal affect, limited insight. SKIN: Warm, dry, normal turgor, no rashes or lesions noted ASSESSMENT/PLAN: Patient presents with a multitude of problems as discussed in previous notes; no new issues noted today. Plan to place CVC tomorrow with plans to DC later in day. Problems include: -ESBL Bacteremia (2 weeks IV merrem per ID, needs CVC in AM prior to DC due to AC issues with rheum out of town) -History of Lupus -Lupus AC -Hx CVA on antiplt (full records not availbale) -Hx CAD with remote [employer] (technically could hold plavix but would also be indicated for CVA, no OP neuro records indicated, no indication why it was continued, would like more info before making final recommendation given length of time must be off antiplts for PICC) -Hx Afib with elevated CV2 score, on eliquis -S/P PPM -Hx likely mild systolic CHF per 05/2019 echo -Obesity -Hx HTN -Hx Glaucoma -Valvular Heart Disease (Mild to mod AR, mild MR, mild TR-none indicated as hemodynamically significant with no change in exam) -Transaminitis (HIDA pending) -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 Discussed at length with ID. ATTENDING PHYSICIAN STATEMENT I saw and evaluated the patient. I reviewed the resident's note and discussed the case with the resident. I agree with the resident's findings and plan as documented. SUBJECTIVE: OBJECTIVE: ASSESSMENT AND PLAN:
--- NOTE | 2019-08-17 12:49 | PN ---
Progress Note, Physician History of Present Illness: stable awake and alert nuclear scan shows normal gallbldder family in the room - Current Medication List Current Medications: Active Medications Carvedilol (Coreg -) 25 mg PO BID [facility] Last Admin: 08/17/19 12:27 Dose: 25 mg Clopidogrel Bisulfate (Plavix -) 75 mg PO DAILY [facility] Last Admin: 08/17/19 12:27 Dose: 75 mg Diltiazem HCl (Cardizem Cd -) 240 mg PO DAILY [facility] Last Admin: 08/17/19 12:27 Dose: 240 mg Donepezil HCl (Aricept -) 5 mg PO DAILY [facility] Last Admin: 08/17/19 12:27 Dose: 5 mg Dorzolamide HCl (Trusopt 2%) 1 drop OU BID [facility] Last Admin: 08/17/19 12:28 Dose: 1 drop Furosemide (Lasix -) 40 mg PO DAILY [facility] Last Admin: 08/17/19 12:27 Dose: 40 mg Heparin Sodium (Porcine) (Heparin -) 1,000 unit IVPUSH PRN PRN PRN Reason: Heparin Heparin Sodium (Porcine) (Heparin -) 5,000 unit IVPUSH PRN PRN PRN Reason: Heparin Last Admin: 08/15/19 14:16 Dose: 5,000 unit Hydroxychloroquine Sulfate (Plaquenil -) 200 mg PO DAILY [facility] Last Admin: 08/17/19 12:27 Dose: 200 mg Dextrose/Sodium Chloride (D5-1/2ns -) 1,000 mls @ 75 mls/hr IV ASDIR [facility] Last Admin: 08/17/19 08:43 Dose: 75 mls/hr Heparin Sodium (Porcine) 25, (000 unit/ Sodium Chloride) 500 mls @ 20 mls/hr IV TITR [facility]; Protocol Last Admin: 08/17/19 12:31 Dose: 950 unit/hr, 19 mls/hr Meropenem 1 gm/ Dextrose 100 mls @ 200 mls/hr IVPB Q12H [facility] Last Admin: 08/17/19 08:43 Dose: 200 mls/hr Insulin Aspart (Novolog Vial Sliding Scale -) 1 vial SQ ACHS [facility]; Protocol Last Admin: 08/17/19 12:27 Dose: 2 units Isosorbide Mononitrate (Imdur -) 30 mg PO DAILY [facility] Last Admin: 08/17/19 12:27 Dose: 30 mg Latanoprost (Xalatan 0.005% Eye Drops -) 1 drop OU HS [facility] Last Admin: 08/16/19 22:47 Dose: 1 drop Ondansetron HCl (Zofran Injection) 4 mg IVPUSH Q6H PRN PRN Reason: NAUSEA Pantoprazole Sodium (Protonix -) 40 mg PO DAILY [facility] Last Admin: 08/17/19 12:27 Dose: 40 mg Rosuvastatin Calcium (Crestor -) 5 mg PO HS [facility] Last Admin: 08/16/19 22:33 Dose: 5 mg Timolol Maleate (Timoptic 0.5%) 1 drop OU BID [facility] Last Admin: 08/17/19 12:28 Dose: 1 drop Valsartan (Diovan -) 80 mg PO BID [facility] Last Admin: 08/17/19 12:27 Dose: 80 mg - Objective Vital Signs: Vital Signs Temperature 98.3 F 08/17/19 06:00 Pulse Rate 60 08/17/19 06:00 Respiratory Rate 20 08/17/19 06:00 Blood Pressure 150/97 08/17/19 06:00 O2 Sat by Pulse Oximetry (%) 98 08/16/19 20:48 Constitutional: Yes: No Distress, Calm Cardiovascular: Yes: S1, S2 Respiratory: Yes: Regular, CTA Bilaterally Gastrointestinal: Yes: Normal Bowel Sounds, Soft Musculoskeletal: Yes: WNL Extremities: Yes: WNL Neurological: Yes: Alert, Oriented Psychiatric: Yes: Alert, Oriented Labs: CBC, BMP 08/17/19 06:30 08/17/19 06:30 INR, PTT INR 1.78 (0.83-1.09) H 08/14/19 21:32 Assessment/Plan abdominal pain afib s/p PPM HTN CAD AAA s/p EVAR chronic diastolic HF gm negative bacteremia uti plan continue abx will need it for at least 2 weeks awaiting repeat blood cx reports rest as per the team
[2019-08-17] MEDS: POTASSIUM CHLORIDE ORAL LIQUID 20 MEQ/15 ML PO SCH ×2 (14:05→22:50)
[2019-08-17] MEDS: LATANOPROST 0.005% OPHTH SOLN 2.5ML BOTTLE OU SCH (22:51)
[2019-08-17] MEDS: ROSUVASTATIN CA 5 MG TABLET (FP) PO SCH (22:52)
[2019-08-17] MEDS ORDERED: MELATONIN 5 MG TABLETS PO ONE (23:45)
[2019-08-18] MEDS: INSULIN SLIDING SCALE (NOVOLOG) 1 VIAL SQ SCH ×4 (06:59→22:30)
[2019-08-18 08:11] LABS: HEMATOCRIT 33.1 % (32.4-45.2); MCH 31.1 pg (25.7-33.7); MCHC 33.1 g/dl (32.0-36.0); MEAN CELL VOLUME 94.1 fl (80-96); MEAN PLT VOLUME 8.7 fl (7.5-11.1); PLATELET COUNT 178 K/MM3 (134-434); RBC 3.52 M/mm3 (3.60-5.2); RDW 12.8 % (11.6-15.6); WHITE BLOOD COUNT 3.8 K/mm3 (4.0-10.0)
--- NOTE | 2019-08-18 08:33 | PN ---
Progress Note, Physician History of Present Illness: GI FOLLOW UP NOTE Patient examined and case discussed with Dr Delacruz Patient denies abdominal pain, nausea, vomiting, rectal bleeding or melena. She states having 3 episodes of non-bloody diarrhea yesterday, not accompanied with night awakening or fevers. This morning lab results pending. However, recent labs showing downtrend in LFTs. - Current Medication List Current Medications: Active Medications Carvedilol (Coreg -) 25 mg PO BID [facility] Last Admin: 08/17/19 22:52 Dose: 25 mg Clopidogrel Bisulfate (Plavix -) 75 mg PO DAILY [facility] Last Admin: 08/17/19 12:27 Dose: 75 mg Diltiazem HCl (Cardizem Cd -) 240 mg PO DAILY [facility] Last Admin: 08/17/19 12:27 Dose: 240 mg Donepezil HCl (Aricept -) 5 mg PO DAILY [facility] Last Admin: 08/17/19 12:27 Dose: 5 mg Dorzolamide HCl (Trusopt 2%) 1 drop OU BID [facility] Last Admin: 08/17/19 22:51 Dose: 1 drop Furosemide (Lasix -) 40 mg PO DAILY [facility] Last Admin: 08/17/19 12:27 Dose: 40 mg Heparin Sodium (Porcine) (Heparin -) 1,000 unit IVPUSH PRN PRN PRN Reason: Heparin Heparin Sodium (Porcine) (Heparin -) 5,000 unit IVPUSH PRN PRN PRN Reason: Heparin Last Admin: 08/15/19 14:16 Dose: 5,000 unit Hydroxychloroquine Sulfate (Plaquenil -) 200 mg PO DAILY [facility] Last Admin: 08/17/19 12:27 Dose: 200 mg Dextrose/Sodium Chloride (D5-1/2ns -) 1,000 mls @ 75 mls/hr IV ASDIR [facility] Last Admin: 08/17/19 22:52 Dose: 75 mls/hr Heparin Sodium (Porcine) 25, (000 unit/ Sodium Chloride) 500 mls @ 20 mls/hr IV TITR JONAS; Protocol Last Admin: 08/17/19 12:31 Dose: 950 unit/hr, 19 mls/hr Meropenem 1 gm/ Dextrose 100 mls @ 200 mls/hr IVPB Q12H [facility] Last Admin: 08/17/19 20:24 Dose: 200 mls/hr Insulin Aspart (Novolog Vial Sliding Scale -) 1 vial SQ [facility]; Protocol Last Admin: 08/18/19 06:59 Dose: Not Given Isosorbide Mononitrate (Imdur -) 30 mg PO DAILY [facility] Last Admin: 08/17/19 12:27 Dose: 30 mg Latanoprost (Xalatan 0.005% Eye Drops -) 1 drop OU HS [facility] Last Admin: 08/17/19 22:51 Dose: 1 drop Ondansetron HCl (Zofran Injection) 4 mg IVPUSH Q6H PRN PRN Reason: NAUSEA Pantoprazole Sodium (Protonix -) 40 mg PO DAILY [facility] Last Admin: 08/17/19 12:27 Dose: 40 mg Rosuvastatin Calcium (Crestor -) 5 mg PO HS [facility] Last Admin: 08/17/19 22:52 Dose: 5 mg Timolol Maleate (Timoptic 0.5%) 1 drop OU BID [facility] Last Admin: 08/17/19 22:51 Dose: 1 drop Valsartan (Diovan -) 80 mg PO BID [facility] Last Admin: 08/17/19 22:52 Dose: 80 mg - Objective Vital Signs: Vital Signs Temperature 98.1 F 08/18/19 06:00 Pulse Rate 61 08/18/19 06:00 Respiratory Rate 20 08/18/19 06:00 Blood Pressure 148/71 08/18/19 06:00 O2 Sat by Pulse Oximetry (%) 98 08/16/19 20:48 Constitutional: Yes: No Distress, Calm Eyes: Yes: Conjunctiva Clear HENT: Yes: Atraumatic Cardiovascular: Yes: Regular Rate and Rhythm Respiratory: Yes: Regular, CTA Bilaterally Gastrointestinal: Yes: Normal Bowel Sounds, Soft, Other (high tympany) Neurological: Yes: Alert, Pre-Existing Deficit Psychiatric: Yes: Alert Labs: CBC, BMP 08/18/19 06:50 INR, PTT INR 1.78 (0.83-1.09) H 08/14/19 21:32 Problem List - Problems (1) Abdominal pain Assessment/Plan: -Abdominal CT scan reviewed and noted with AAA measuring 5.3 x 5.1cm -Vascular consult -monitor BP Code(s): R10.9 - UNSPECIFIED ABDOMINAL PAIN (2) Abnormal liver function test Assessment/Plan: -monitor LFTs daily -unable to have MRCP due to pacemaker -LFTs showing downtrend AST 50, ALT 112, Alk Phos 158 -Abd US shows diffuse fatty infiltration of liver Code(s): R94.5 - ABNORMAL RESULTS OF LIVER FUNCTION STUDIES (3) Cholecystitis Assessment/Plan: -Surgery consult Code(s): K81.9 - CHOLECYSTITIS, UNSPECIFIED
[2019-08-18] MEDS ORDERED: MEROPENEM 1 GM VIAL (RESTRICTED TO ID) IVPB ONE ×2 (08:38→20:59)
[2019-08-18] MEDS ORDERED: DEXTROSE 5%-WATER 100 ML IVPB ONE ×2 (08:38→20:59)
[2019-08-18 08:40] LABS: ALBUMIN 2.8 g/dl (3.4-5.0); BILIRUBIN,TOTAL 0.5 mg/dL (0.2-1); BLOOD UREA NITROGEN 5.8 mg/dL (7-18); CALCIUM 8.8 mg/dL (8.5-10.1); CREATININE 1.3 mg/dL (0.55-1.3); MAGNESIUM 1.9 mg/dL (1.8-2.4); POTASSIUM 3.6 mmol/L (3.5-5.1); TOT PROT 5.8 g/dl (6.4-8.2)
[2019-08-18] MEDS: MEROPENEM 1 GM in DEXTROSE 5%-WATER 100 ML IVPB SCH ×2 (08:41→22:29)
[2019-08-18] MEDS ORDERED: PT OWN MED DRAWER 7, Y5N ONE (10:42)
[2019-08-18] MEDS: DEXTROSE 5%-0.45% SALINE 1,000 ML IV SCH ×2 (10:43→13:32)
[2019-08-18] MEDS: DONEPEZIL HCL 5 MG TABLET (FP) PO SCH (10:44)
[2019-08-18] MEDS: CLOPIDOGREL BISULFATE 75 MG TABLET (FP) PO SCH (10:44)
[2019-08-18] MEDS: CARVEDILOL 25 MG TABLET (FP) PO SCH ×2 (10:45→22:29)
[2019-08-18] MEDS: VALSARTAN 80 MG TABLET (UD) PO SCH ×2 (10:45→22:29)
[2019-08-18] MEDS: ISOSORBIDE MONONITRATE 30 MG TAB.SR.24H (FP) PO SCH (10:45)
[2019-08-18] MEDS: PANTOPRAZOLE 40 MG TABLET (FP) PO SCH (10:45)
[2019-08-18] MEDS: DORZOLAMIDE 2% HCL OPHTHALMIC SOLUTION 10 ML BOTTLE OU SCH ×2 (10:45→22:27)
[2019-08-18] MEDS: FUROSEMIDE 40 MG TABLET (FP) PO SCH (10:45)
[2019-08-18] MEDS: TIMOLOL 0.5% OPHTHALMIC SOL 5 ML BOTTLE OU SCH ×2 (10:45→22:30)
[2019-08-18] MEDS: HYDROXYCHLOROQUINE SO4 200 MG TABLET (FP) PO SCH (10:45)
--- NOTE | 2019-08-18 11:44 | PN ---
Progress Note, Physician History of Present Illness: stable no new issues repeat blood cx noted - Current Medication List Current Medications: Active Medications Carvedilol (Coreg -) 25 mg PO BID [facility] Last Admin: 08/18/19 10:45 Dose: 25 mg Clopidogrel Bisulfate (Plavix -) 75 mg PO DAILY [facility] Last Admin: 08/18/19 10:44 Dose: 75 mg Diltiazem HCl (Cardizem Cd -) 240 mg PO DAILY [facility] Last Admin: 08/18/19 10:44 Dose: 240 mg Donepezil HCl (Aricept -) 5 mg PO DAILY [facility] Last Admin: 08/18/19 10:44 Dose: 5 mg Dorzolamide HCl (Trusopt 2%) 1 drop OU BID [facility] Last Admin: 08/18/19 10:45 Dose: 1 drop Furosemide (Lasix -) 40 mg PO DAILY [facility] Last Admin: 08/18/19 10:45 Dose: 40 mg Heparin Sodium (Porcine) (Heparin -) 1,000 unit IVPUSH PRN PRN PRN Reason: Heparin Heparin Sodium (Porcine) (Heparin -) 5,000 unit IVPUSH PRN PRN PRN Reason: Heparin Last Admin: 08/15/19 14:16 Dose: 5,000 unit Hydroxychloroquine Sulfate (Plaquenil -) 200 mg PO DAILY [facility] Last Admin: 08/18/19 10:45 Dose: 200 mg Dextrose/Sodium Chloride (D5-1/2ns -) 1,000 mls @ 75 mls/hr IV ASDIR [facility] Last Admin: 08/18/19 10:43 Dose: Not Given Heparin Sodium (Porcine) 25, (000 unit/ Sodium Chloride) 500 mls @ 20 mls/hr IV TITR [facility]; Protocol Last Admin: 08/17/19 12:31 Dose: 950 unit/hr, 19 mls/hr Meropenem 1 gm/ Dextrose 100 mls @ 200 mls/hr IVPB Q12H [facility] Last Admin: 08/18/19 08:41 Dose: 200 mls/hr Insulin Aspart (Novolog Vial Sliding Scale -) 1 vial SQ ACHS [facility]; Protocol Last Admin: 08/18/19 06:59 Dose: Not Given Isosorbide Mononitrate (Imdur -) 30 mg PO DAILY [facility] Last Admin: 08/18/19 10:45 Dose: 30 mg Latanoprost (Xalatan 0.005% Eye Drops -) 1 drop OU HS [facility] Last Admin: 08/17/19 22:51 Dose: 1 drop Ondansetron HCl (Zofran Injection) 4 mg IVPUSH Q6H PRN PRN Reason: NAUSEA Pantoprazole Sodium (Protonix -) 40 mg PO DAILY [facility] Last Admin: 08/18/19 10:45 Dose: 40 mg Rosuvastatin Calcium (Crestor -) 5 mg PO HS [facility] Last Admin: 08/17/19 22:52 Dose: 5 mg Timolol Maleate (Timoptic 0.5%) 1 drop OU BID [facility] Last Admin: 08/18/19 10:45 Dose: 1 drop Valsartan (Diovan -) 80 mg PO BID [facility] Last Admin: 08/18/19 10:45 Dose: 80 mg - Objective Vital Signs: Vital Signs Temperature 98.1 F 08/18/19 10:00 Pulse Rate 60 08/18/19 10:00 Respiratory Rate 18 08/18/19 10:00 Blood Pressure 150/70 08/18/19 10:00 O2 Sat by Pulse Oximetry (%) 98 08/16/19 20:48 Constitutional: Yes: No Distress, Calm Cardiovascular: Yes: S1, S2 Respiratory: Yes: Regular, CTA Bilaterally Gastrointestinal: Yes: Normal Bowel Sounds, Soft Musculoskeletal: Yes: WNL Extremities: Yes: WNL Neurological: Yes: Alert, Oriented Psychiatric: Yes: Alert, Oriented Labs: CBC, BMP 08/18/19 06:50 08/18/19 06:50 INR, PTT INR 1.78 (0.83-1.09) H 08/14/19 21:32 Assessment/Plan abdominal pain afib s/p PPM HTN CAD AAA s/p EVAR chronic diastolic HF gm negative bacteremia uti plan continue abx will need it for at least 2 weeks nutrition rest as per the team monitor liver functions
--- NOTE | 2019-08-18 12:02 | PN ---
Progress Note, Physician Chief Complaint: Denies CP or SOB - Current Medication List Current Medications: Active Medications Carvedilol (Coreg -) 25 mg PO BID [facility] Last Admin: 08/18/19 10:45 Dose: 25 mg Clopidogrel Bisulfate (Plavix -) 75 mg PO DAILY [facility] Last Admin: 08/18/19 10:44 Dose: 75 mg Diltiazem HCl (Cardizem Cd -) 240 mg PO DAILY [facility] Last Admin: 08/18/19 10:44 Dose: 240 mg Donepezil HCl (Aricept -) 5 mg PO DAILY [facility] Last Admin: 08/18/19 10:44 Dose: 5 mg Dorzolamide HCl (Trusopt 2%) 1 drop OU BID [facility] Last Admin: 08/18/19 10:45 Dose: 1 drop Furosemide (Lasix -) 40 mg PO DAILY [facility] Last Admin: 08/18/19 10:45 Dose: 40 mg Heparin Sodium (Porcine) (Heparin -) 1,000 unit IVPUSH PRN PRN PRN Reason: Heparin Heparin Sodium (Porcine) (Heparin -) 5,000 unit IVPUSH PRN PRN PRN Reason: Heparin Last Admin: 08/15/19 14:16 Dose: 5,000 unit Hydroxychloroquine Sulfate (Plaquenil -) 200 mg PO DAILY [facility] Last Admin: 08/18/19 10:45 Dose: 200 mg Dextrose/Sodium Chloride (D5-1/2ns -) 1,000 mls @ 75 mls/hr IV ASDIR [facility] Last Admin: 08/18/19 10:43 Dose: Not Given Heparin Sodium (Porcine) 25, (000 unit/ Sodium Chloride) 500 mls @ 20 mls/hr IV TITR [facility]; Protocol Last Admin: 08/17/19 12:31 Dose: 950 unit/hr, 19 mls/hr Meropenem 1 gm/ Dextrose 100 mls @ 200 mls/hr IVPB Q12H [facility] Last Admin: 08/18/19 08:41 Dose: 200 mls/hr Insulin Aspart (Novolog Vial Sliding Scale -) 1 vial SQ ACHS [facility]; Protocol Last Admin: 08/18/19 06:59 Dose: Not Given Isosorbide Mononitrate (Imdur -) 30 mg PO DAILY [facility] Last Admin: 08/18/19 10:45 Dose: 30 mg Latanoprost (Xalatan 0.005% Eye Drops -) 1 drop OU HS [facility] Last Admin: 08/17/19 22:51 Dose: 1 drop Ondansetron HCl (Zofran Injection) 4 mg IVPUSH Q6H PRN PRN Reason: NAUSEA Pantoprazole Sodium (Protonix -) 40 mg PO DAILY [facility] Last Admin: 08/18/19 10:45 Dose: 40 mg Rosuvastatin Calcium (Crestor -) 5 mg PO HS [facility] Last Admin: 08/17/19 22:52 Dose: 5 mg Timolol Maleate (Timoptic 0.5%) 1 drop OU BID [facility] Last Admin: 08/18/19 10:45 Dose: 1 drop Valsartan (Diovan -) 80 mg PO BID [facility] Last Admin: 08/18/19 10:45 Dose: 80 mg - Objective Vital Signs: Vital Signs Temperature 98.1 F 08/18/19 10:00 Pulse Rate 60 08/18/19 10:00 Respiratory Rate 18 08/18/19 10:00 Blood Pressure 150/70 08/18/19 10:00 O2 Sat by Pulse Oximetry (%) 98 08/16/19 20:48 Constitutional: Yes: No Distress, Calm Cardiovascular: Yes: Regular Rate and Rhythm Respiratory: Yes: CTA Bilaterally Gastrointestinal: Yes: Soft (NT) Edema: No Neurological: Yes: Alert Labs: CBC, BMP 08/18/19 06:50 08/18/19 06:50 INR, PTT INR 1.78 (0.83-1.09) H 08/14/19 21:32 Microbiology 08/14/19 21:37 Urine - Urine Clean Catch Urine Culture - Final Citrobacter Koseri 08/14/19 21:32 Blood - Peripheral Venous Blood Culture - Final Lactose Fermenting Neg Bacilli 08/14/19 21:32 Blood - Peripheral Venous Blood Culture - Final Escherichia Coli Esbl Scallop Binder 08/16/19 14:30 Blood - Peripheral Venous Blood Culture - Preliminary NO GROWTH OBTAINED AFTER 24 HOURS, INCUBATION TO CONTINUE FOR 4 DAYS. 08/16/19 12:36 Blood - Peripheral Venous Blood Culture - Preliminary NO GROWTH OBTAINED AFTER 24 HOURS, INCUBATION TO CONTINUE FOR 4 DAYS. Assessment/Plan Assessment/Plan echo in office 05/2019 tds, borderline conc LVH, overall LV function grossly borderline to mildly reduced, septal wall motion c/w V pacing, LA mildly dilated , mild to mod AR, mild MR, mild TR EKG: AP, LBBB simlar to prior abdominal pain - surgery evaluated - no acute indication for surgery - GI, ID following, on abx -UTI afib s/p PPM - Eliquis held initially due to concern for cholecystitis, HIDA scan neg. Resume Eliquis; d/c hep gtts - outpatient ppm monitoring HTN - cont current meds CAD - remote PCI, cont plavix, statin AAA s/p EVAR - cont bb, bp control - vascular eval chronic diastolic HF - appears euvolemic, cont current cardiac meds
[2019-08-18] MEDS ORDERED: INSULIN (NOVOLOG) ASPART 100 UNITS/ML 10ML VIAL ONE (12:26)
--- NOTE | 2019-08-18 21:05 | PN ---
Progress Note (short form) - Note Progress Note: HPI: No events overnight. No new complaints today. PE GENERAL: The patient is awake, alert, and fully oriented, in no acute distress. HEENT: NC/AT, JONAS, sclera anicteric, MMM, dentures + NECK: No JVD LUNGS: CTA bilaterally, no wheezes, no crackles, no accessory muscle use. HEART: RRR, S1, S2 without murmur ABDOMEN: Soft, NT/ND, normoactive bowel sounds, no guarding EXTREMITIES: 2+ DP pulses, warm, well-perfused, no edema. PSYCH: Normal mood, normal affect. SKIN: Warm, dry, no rashes or lesions noted CBC, BMP 08/18/19 06:50 08/18/19 06:50 Active Medications Apixaban (Eliquis -) 5 mg PO BID [facility] Carvedilol (Coreg -) 25 mg PO BID [facility] Last Admin: 08/18/19 10:45 Dose: 25 mg Clopidogrel Bisulfate (Plavix -) 75 mg PO DAILY [facility] Last Admin: 08/18/19 10:44 Dose: 75 mg Diltiazem HCl (Cardizem Cd -) 240 mg PO DAILY [facility] Last Admin: 08/18/19 10:44 Dose: 240 mg Donepezil HCl (Aricept -) 5 mg PO DAILY [facility] Last Admin: 08/18/19 10:44 Dose: 5 mg Dorzolamide HCl (Trusopt 2%) 1 drop OU BID [facility] Last Admin: 08/18/19 10:45 Dose: 1 drop Furosemide (Lasix -) 40 mg PO DAILY [facility] Last Admin: 08/18/19 10:45 Dose: 40 mg Hydroxychloroquine Sulfate (Plaquenil -) 200 mg PO DAILY [facility] Last Admin: 08/18/19 10:45 Dose: 200 mg Dextrose/Sodium Chloride (D5-1/2ns -) 1,000 mls @ 75 mls/hr IV ASDIR [facility] Last Admin: 08/18/19 13:32 Dose: 75 mls/hr Meropenem 1 gm/ Dextrose 100 mls @ 200 mls/hr IVPB Q12H [facility] Last Admin: 08/18/19 08:41 Dose: 200 mls/hr Insulin Aspart (Novolog Vial Sliding Scale -) 1 vial SQ ACHS [facility]; Protocol Last Admin: 08/18/19 18:03 Dose: 2 units Isosorbide Mononitrate (Imdur -) 30 mg PO DAILY [facility] Last Admin: 08/18/19 10:45 Dose: 30 mg Latanoprost (Xalatan 0.005% Eye Drops -) 1 drop OU HS [facility] Last Admin: 08/17/19 22:51 Dose: 1 drop Ondansetron HCl (Zofran Injection) 4 mg IVPUSH Q6H PRN PRN Reason: NAUSEA Pantoprazole Sodium (Protonix -) 40 mg PO DAILY [facility] Last Admin: 08/18/19 10:45 Dose: 40 mg Rosuvastatin Calcium (Crestor -) 5 mg PO HS [facility] Last Admin: 08/17/19 22:52 Dose: 5 mg Timolol Maleate (Timoptic 0.5%) 1 drop OU BID [facility] Last Admin: 08/18/19 10:45 Dose: 1 drop Valsartan (Diovan -) 80 mg PO BID [facility] Last Admin: 08/18/19 10:45 Dose: 80 mg Microbiology 08/16/19 14:30 Blood - Peripheral Venous Blood Culture - Preliminary NO GROWTH OBTAINED AFTER 48 HOURS, INCUBATION TO CONTINUE FOR 3 DAYS. 08/16/19 12:36 Blood - Peripheral Venous Blood Culture - Preliminary NO GROWTH OBTAINED AFTER 48 HOURS, INCUBATION TO CONTINUE FOR 3 DAYS. 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 prior) --Appeciate all consultation recommendations --Continue Meropenem due to ESBL bacteremia; projected 14 day total of Meropenem 1gm daily per ID --Will need PICC line and outpatient dispo plan for IV ABX --Isolation precautions --Reviewed cultures and sensitivies; most recent cleared --Cannot perform MRCP due to PPM --Monitor LFTs and avoid hepatotoxic agents --Continue home lupus medications --Continue home medications as below: Cardizem 240mg qdaily Coreg 25mg BID Diovan 80mg BID Imdur 30mg qdaily Plavix 75mg qdaily FEN: Fluids: D/C Electrolyte abnormalities: Hypokalemia; Kdur liquid 40mEq 2 doses only Nutrition: Advanced PPX: DVT - Switched back to eliquis Dispo: PICC and IV ABX plan Case discussed with Dr. Thien Rodrigues, DO - IM PGY-3 <Flavio Rodrigues - Last Filed: 08/18/19 21:08> - Note Progress Note: Agree with above plan; reviewed resident history and PE and verified all jimenez historical information and exam findings independently. 10 sys ROS done and negative aside from HPI All vital signs reviewed per ER records and are as per EMR NAD, AAO, Resting in bed; mentating at baseline per prior encounters NC AT EOMI PERRLA Neck supple, trachea midline, no kleber LN RRR s1/2 Lungs CTAB, w/ sym expansion NT ND +BS No skin breakdown or rashes noted CN2-12 wnl, no new focal deficits noted Muscle tone normal, no deficits in motor function or strength noted Normal mood, appropriate behavior, average insight All diagnostics reviewed A/P: Agree with problem list as documented in resident note. Will specifically state that Dr. Iqbal out of town. She has recurring issues with DVT and has been on eliquis for some time with this alongside elevated CV2 score with afib. She is also on plavix. Given Lupus AC history and concurring cardio indication, as well as difficulties with heparin drip on WE as well as IR policy, we will elect to continue eliquis and plavix, hold dose AM of DC, and place line ourselves with CVC for continued infusion. Consent to be obtained in the AM day of procedure likely wednesday <Kenyn Neumann - Last Filed: 08/20/19 10:27>
[2019-08-18] MEDS: ROSUVASTATIN CA 5 MG TABLET (FP) PO SCH (22:29)
[2019-08-18] MEDS: APIXABAN 5 MG TABLET PO SCH (22:29)
[2019-08-18] MEDS: LATANOPROST 0.005% OPHTH SOLN 2.5ML BOTTLE OU SCH (22:31)
[2019-08-19] MEDS ORDERED: INSULIN (NOVOLOG) ASPART 100 UNITS/ML 10ML VIAL ONE ×5 (06:56→22:32)
[2019-08-19] MEDS: INSULIN SLIDING SCALE (NOVOLOG) 1 VIAL SQ SCH ×4 (07:03→22:12)
[2019-08-19] MEDS: HEPARIN - 25,000 UNIT in SODIUM CHLORIDE 495 ML IV SCH (08:11)
[2019-08-19] MEDS ORDERED: MEROPENEM 1 GM VIAL (RESTRICTED TO ID) IVPB ONE ×2 (08:24→21:00)
[2019-08-19] MEDS ORDERED: DEXTROSE 5%-WATER 100 ML IVPB ONE ×2 (08:25→21:00)
[2019-08-19] MEDS: MEROPENEM 1 GM in DEXTROSE 5%-WATER 100 ML IVPB SCH ×2 (08:36→21:51)
[2019-08-19 09:12] LABS: HEMATOCRIT 33.4 % (32.4-45.2); HEMOGLOBIN 11.3 GM/dL (10.7-15.3); MCH 31.5 pg (25.7-33.7); MCHC 33.9 g/dl (32.0-36.0); PLATELET COUNT 194 K/MM3 (134-434); RDW 12.8 % (11.6-15.6); WHITE BLOOD COUNT 4.9 K/mm3 (4.0-10.0)
--- NOTE | 2019-08-19 09:28 | PN ---
Progress Note (short form) - Note Progress Note: HPI: No events overnight. No new complaints today. Pt feels good today. Denies any abdominal pain. Vital Signs Temperature 98.1 F 08/19/19 06:00 Pulse Rate 60 08/19/19 06:00 Respiratory Rate 18 08/19/19 06:00 Blood Pressure 150/70 08/19/19 06:00 O2 Sat by Pulse Oximetry (%) 98 08/16/19 20:48 PE GENERAL: The patient is awake, alert, and fully oriented, in no acute distress. HEENT: NC/AT, JONAS, sclera anicteric, MMM, dentures + NECK: No JVD LUNGS: CTA bilaterally, no wheezes, no crackles, no accessory muscle use. HEART: RRR, S1, S2 without murmur ABDOMEN: Soft, NT/ND, normoactive bowel sounds, no guarding EXTREMITIES: 2+ DP pulses, warm, well-perfused, no edema. PSYCH: Normal mood, normal affect. SKIN: Warm, dry, no rashes or lesions noted CBC, BMP 08/19/19 08:44 Active Medications Apixaban (Eliquis -) 5 mg PO BID [facility] Last Admin: 08/18/19 22:29 Dose: 5 mg Carvedilol (Coreg -) 25 mg PO BID [facility] Last Admin: 08/18/19 22:29 Dose: 25 mg Clopidogrel Bisulfate (Plavix -) 75 mg PO DAILY [facility] Last Admin: 08/18/19 10:44 Dose: 75 mg Diltiazem HCl (Cardizem Cd -) 240 mg PO DAILY [facility] Last Admin: 08/18/19 10:44 Dose: 240 mg Donepezil HCl (Aricept -) 5 mg PO DAILY [facility] Last Admin: 08/18/19 10:44 Dose: 5 mg Dorzolamide HCl (Trusopt 2%) 1 drop OU BID [facility] Last Admin: 08/18/19 22:27 Dose: 1 drop Furosemide (Lasix -) 40 mg PO DAILY [facility] Last Admin: 08/18/19 10:45 Dose: 40 mg Hydroxychloroquine Sulfate (Plaquenil -) 200 mg PO DAILY [facility] Last Admin: 08/18/19 10:45 Dose: 200 mg Meropenem 1 gm/ Dextrose 100 mls @ 200 mls/hr IVPB Q12H [facility] Last Admin: 08/19/19 08:36 Dose: 200 mls/hr Insulin Aspart (Novolog Vial Sliding Scale -) 1 vial SQ ACHS [facility]; Protocol Last Admin: 08/19/19 07:03 Dose: Not Given Isosorbide Mononitrate (Imdur -) 30 mg PO DAILY [facility] Last Admin: 08/18/19 10:45 Dose: 30 mg Latanoprost (Xalatan 0.005% Eye Drops -) 1 drop OU HS [facility] Last Admin: 08/18/19 22:31 Dose: 1 drop Ondansetron HCl (Zofran Injection) 4 mg IVPUSH Q6H PRN PRN Reason: NAUSEA Pantoprazole Sodium (Protonix -) 40 mg PO DAILY [facility] Last Admin: 08/18/19 10:45 Dose: 40 mg Rosuvastatin Calcium (Crestor -) 5 mg PO HS [facility] Last Admin: 08/18/19 22:29 Dose: 5 mg Timolol Maleate (Timoptic 0.5%) 1 drop OU BID [facility] Last Admin: 08/18/19 22:30 Dose: 1 drop Valsartan (Diovan -) 80 mg PO BID [facility] Last Admin: 08/18/19 22:29 Dose: 80 mg Microbiology 08/16/19 14:30 Blood - Peripheral Venous Blood Culture - Preliminary NO GROWTH OBTAINED AFTER 48 HOURS, INCUBATION TO CONTINUE FOR 3 DAYS. 08/16/19 12:36 Blood - Peripheral Venous Blood Culture - Preliminary NO GROWTH OBTAINED AFTER 48 HOURS, INCUBATION TO CONTINUE FOR 3 DAYS. 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 prior) --Appeciate all consultation recommendations --Continue Meropenem due to ESBL bacteremia; projected 14 day total of Meropenem 1gm daily per ID --Will need PICC line and outpatient dispo plan for IV ABX --Isolation precautions --Reviewed cultures and sensitivies; most recent cleared --HIDA normal biliary ductal system and no dyskinesia --Monitor LFTs and avoid hepatotoxic agents --Continue home lupus medications --Continue home medications as below: Cardizem 240mg qdaily Coreg 25mg BID Diovan 80mg BID Imdur 30mg qdaily Plavix 75mg qdaily FEN: Fluids: PO only Electrolyte abnormalities: awaiting labs today Nutrition: Advanced PPX: DVT - Eliquis Dispo: PICC and IV ABX plan Case discussed with Dr. Thien Rodrigues, DO - IM PGY-3 <Flavio Rodrigues - Last Filed: 08/19/19 09:26> - Note Progress Note: Seen and examined; personally verified all jimenez historical and PE information. Agree with resident problem list as indicated. Assessment and plan as described above is accurate except from as I have chosen to supplement. S: No new complaints; no events overnight. Discussed at length with resident team. In addition I met with patient and family and answered all questions early in the afternoon. Informed that rheum consult will not be able to be completed. Incomplete records available regarding clot history, rheum workup/FU , and previous treatment failures. In addition, we need complete notes about her CVA to determine the full set of indications for the plavix. 10 sys ROS done and negative aside from HPI O: All VS, labs, imaging, and other diagnostics independently reviewed and interpreted GENERAL: The patient is awake, alert, and fully oriented, in no acute distress. HEAD: Normal with no signs of trauma. EYES: PERRL, extraocular movements intact, sclera anicteric, conjunctiva clear ENT: Ears normal, nares patent, oropharynx clear without exudates NECK: Trachea midline, full range of motion, supple. LUNGS: Breath sounds equal, clear to auscultation bilaterally, no wheezes, no crackles, no accessory muscle use. HEART: Regular rate and rhythm, S1, S2 no new mgr ABDOMEN: Soft, nontender, nondistended, normoactive bowel sounds, no guarding EXTREMITIES: 2+ pulses, warm, well-perfused, no edema. NEUROLOGICAL: Cranial nerves II through XII grossly intact. Normal speech PSYCH: Normal mood, normal affect, limited insight. SKIN: Warm, dry, normal turgor, no rashes or lesions noted ASSESSMENT/PLAN: Patient presents with a multitude of problems as discussed in previous notes; no new issues noted today. Plan to place CVC tomorrow with plans to DC later in day. 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 (technically could hold plavix but would also be indicated for CVA, no OP neuro records indicated, no indication why it was continued, would like more info before making final recommendation given length of time must be off antiplts for PICC) -Hx Afib with elevated CV2 score, on eliquis -S/P PPM -Hx likely mild systolic CHF per 05/2019 echo -Obesity -Hx HTN -Hx Glaucoma -Valvular Heart Disease (Mild to mod AR, mild MR, mild TR-none indicated as hemodynamically significant with no change in exam) -Transaminitis (HIDA pending) -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 Discussed at length with ID. <Kenny Neumann - Last Filed: 08/20/19 10:41>
[2019-08-19 09:37] LABS: ALBUMIN 2.9 g/dl (3.4-5.0); BILIRUBIN,TOTAL 0.6 mg/dL (0.2-1); BLOOD UREA NITROGEN 7.9 mg/dL (7-18); CALCIUM 9.3 mg/dL (8.5-10.1); CREATININE 1.2 mg/dL (0.55-1.3); POTASSIUM 3.4 mmol/L (3.5-5.1); TOT PROT 6.3 g/dl (6.4-8.2)
[2019-08-19] MEDS ORDERED: PT OWN MED DRAWER 7, Y5N ONE (09:37)
[2019-08-19] MEDS: VALSARTAN 80 MG TABLET (UD) PO SCH ×2 (09:45→21:51)
[2019-08-19] MEDS: DONEPEZIL HCL 5 MG TABLET (FP) PO SCH (09:45)
[2019-08-19] MEDS: ISOSORBIDE MONONITRATE 30 MG TAB.SR.24H (FP) PO SCH (09:45)
[2019-08-19] MEDS: CLOPIDOGREL BISULFATE 75 MG TABLET (FP) PO SCH (09:45)
[2019-08-19] MEDS: PANTOPRAZOLE 40 MG TABLET (FP) PO SCH (09:45)
[2019-08-19] MEDS: FUROSEMIDE 40 MG TABLET (FP) PO SCH (09:45)
[2019-08-19] MEDS: APIXABAN 5 MG TABLET PO SCH ×2 (09:45→21:51)
[2019-08-19] MEDS: CARVEDILOL 25 MG TABLET (FP) PO SCH ×2 (09:45→21:51)
[2019-08-19] MEDS: HYDROXYCHLOROQUINE SO4 200 MG TABLET (FP) PO SCH (09:45)
[2019-08-19] MEDS: TIMOLOL 0.5% OPHTHALMIC SOL 5 ML BOTTLE OU SCH ×2 (09:46→21:51)
[2019-08-19] MEDS: DORZOLAMIDE 2% HCL OPHTHALMIC SOLUTION 10 ML BOTTLE OU SCH ×2 (09:46→21:52)
[2019-08-19] MEDS ORDERED: cloNIDine HCL 0.1 MG TABLET PO ONE (12:30)
[2019-08-19] MEDS: POTASSIUM CHLORIDE ORAL LIQUID 20 MEQ/15 ML PO SCH ×2 (12:37→21:50)
[2019-08-19] MEDS: ROSUVASTATIN CA 5 MG TABLET (FP) PO SCH (21:51)
[2019-08-19] MEDS: LATANOPROST 0.005% OPHTH SOLN 2.5ML BOTTLE OU SCH (21:52)
--- NOTE | 2019-08-19 22:33 | PN ---
Progress Note, Physician History of Present Illness: Pt states she feels well. Has no complaints. Tolerating antibiotics. Remains afebrile. - Current Medication List Current Medications: Active Medications Apixaban (Eliquis -) 5 mg PO BID [facility] Last Admin: 08/19/19 21:51 Dose: 5 mg Carvedilol (Coreg -) 25 mg PO BID [facility] Last Admin: 08/19/19 21:51 Dose: 25 mg Clopidogrel Bisulfate (Plavix -) 75 mg PO DAILY [facility] Last Admin: 08/19/19 09:45 Dose: 75 mg Diltiazem HCl (Cardizem Cd -) 240 mg PO DAILY [facility] Last Admin: 08/19/19 09:45 Dose: 240 mg Donepezil HCl (Aricept -) 5 mg PO DAILY [facility] Last Admin: 08/19/19 09:45 Dose: 5 mg Dorzolamide HCl (Trusopt 2%) 1 drop OU BID [facility] Last Admin: 08/19/19 21:52 Dose: 1 drop Furosemide (Lasix -) 40 mg PO DAILY [facility] Last Admin: 08/19/19 09:45 Dose: 40 mg Hydroxychloroquine Sulfate (Plaquenil -) 200 mg PO DAILY [facility] Last Admin: 08/19/19 09:45 Dose: 200 mg Meropenem 1 gm/ Dextrose 100 mls @ 200 mls/hr IVPB Q12H [facility] Last Admin: 08/19/19 21:51 Dose: 200 mls/hr Insulin Aspart (Novolog Vial Sliding Scale -) 1 vial SQ ACHS [facility]; Protocol Last Admin: 08/19/19 17:36 Dose: 2 units Isosorbide Mononitrate (Imdur -) 30 mg PO DAILY [facility] Last Admin: 08/19/19 09:45 Dose: 30 mg Latanoprost (Xalatan 0.005% Eye Drops -) 1 drop OU HS [facility] Last Admin: 08/19/19 21:52 Dose: 1 drop Ondansetron HCl (Zofran Injection) 4 mg IVPUSH Q6H PRN PRN Reason: NAUSEA Pantoprazole Sodium (Protonix -) 40 mg PO DAILY [facility] Last Admin: 08/19/19 09:45 Dose: 40 mg Rosuvastatin Calcium (Crestor -) 5 mg PO HS [facility] Last Admin: 08/19/19 21:51 Dose: 5 mg Timolol Maleate (Timoptic 0.5%) 1 drop OU BID [facility] Last Admin: 08/19/19 21:51 Dose: 1 drop Valsartan (Diovan -) 80 mg PO BID [facility] Last Admin: 08/19/19 21:51 Dose: 80 mg - Objective Vital Signs: Vital Signs Temperature 98.2 F 08/19/19 17:11 Pulse Rate 60 08/19/19 17:11 Respiratory Rate 18 08/19/19 17:11 Blood Pressure 118/50 L 08/19/19 17:11 O2 Sat by Pulse Oximetry (%) 98 08/16/19 20:48 Constitutional: Yes: No Distress, Calm Respiratory: Yes: CTA Bilaterally Gastrointestinal: Yes: Normal Bowel Sounds, Soft Genitourinary: Yes: WNL Edema: No Integumentary: Yes: WNL Labs: CBC, BMP 08/19/19 08:44 08/19/19 08:44 INR, PTT INR 1.78 (0.83-1.09) H 08/14/19 21:32 Microbiology 08/16/19 14:30 Blood - Peripheral Venous Blood Culture - Preliminary NO GROWTH OBTAINED AFTER 72 HOURS, INCUBATION TO CONTINUE FOR 2 DAYS. 08/16/19 12:36 Blood - Peripheral Venous Blood Culture - Preliminary NO GROWTH OBTAINED AFTER 72 HOURS, INCUBATION TO CONTINUE FOR 2 DAYS. 08/14/19 21:32 Blood - Peripheral Venous Blood Culture - Final Lactose Fermenting Neg Bacilli 08/14/19 21:37 Urine - Urine Clean Catch Urine Culture - Final Citrobacter Koseri 08/14/19 21:32 Blood - Peripheral Venous Blood Culture - Final Escherichia Coli Esbl Training Representative 08/16/19 10:00 Nares - Right Nares MRSA Screen - Final NO MRSA ISOLATED 08/16/19 10:00 Nares - Left Nares MRSA Screen - Final NO MRSA ISOLATED Problem List - Problems (1) Abdominal pain Code(s): R10.9 - UNSPECIFIED ABDOMINAL PAIN (2) Afib Code(s): I48.91 - UNSPECIFIED ATRIAL FIBRILLATION Qualifiers: Atrial fibrillation type: paroxysmal Qualified Code(s): I48.0 - Paroxysmal atrial fibrillation (3) Anemia Code(s): D64.9 - ANEMIA, UNSPECIFIED (4) CHF (congestive heart failure) Code(s): I50.9 - HEART FAILURE, UNSPECIFIED (5) DVT (deep venous thrombosis) Code(s): I82.409 - ACUTE EMBOLISM AND THOMBOS UNSP DEEP VN UNSP LOWER EXTREMITY Qualifiers: DVT location: lower extremity Affected thrombotic vein of extremity: popliteal Chronicity: acute Laterality: left Qualified Code(s): I82.432 - Acute embolism and thrombosis of left popliteal vein (6) Diabetes Code(s): E11.9 - TYPE 2 DIABETES MELLITUS WITHOUT COMPLICATIONS Qualifiers: Diabetes mellitus type: type 2 (7) HLD (hyperlipidemia) Code(s): E78.5 - HYPERLIPIDEMIA, UNSPECIFIED (8) HTN (hypertension) Code(s): I10 - ESSENTIAL (PRIMARY) HYPERTENSION Qualifiers: Hypertension type: essential hypertension Qualified Code(s): I10 - Essential (primary) hypertension (9) Lupus (systemic lupus erythematosus) Code(s): M32.9 - SYSTEMIC LUPUS ERYTHEMATOSUS, UNSPECIFIED (10) UTI (urinary tract infection) Code(s): N39.0 - URINARY TRACT INFECTION, SITE NOT SPECIFIED Qualifiers: Urinary tract infection type: acute cystitis Assessment/Plan Gram neg bacteremia UTI Lupus Hx of CVA AFIB Hx of DVT -- pt doing well -- continue Meropenem IV x 2 wks total treatment -- latest blood cultures neg so far -- continue monitor Pt alert, afebrile, without distress
[2019-08-20] MEDS: INSULIN SLIDING SCALE (NOVOLOG) 1 VIAL SQ SCH ×4 (06:13→22:21)
[2019-08-20 08:14] LABS: HEMATOCRIT 34.2 % (32.4-45.2); HEMOGLOBIN 11.4 GM/dL (10.7-15.3); MCH 31.3 pg (25.7-33.7); MCHC 33.3 g/dl (32.0-36.0); MEAN PLT VOLUME 8.7 fl (7.5-11.1); PLATELET COUNT 199 K/MM3 (134-434); RBC 3.64 M/mm3 (3.60-5.2); RDW 13.2 % (11.6-15.6); WHITE BLOOD COUNT 5.4 K/mm3 (4.0-10.0)
[2019-08-20] MEDS ORDERED: DEXTROSE 5%-WATER 100 ML IVPB ONE (10:00)
[2019-08-20] MEDS ORDERED: MEROPENEM 1 GM VIAL (RESTRICTED TO ID) IVPB ONE (10:00)
[2019-08-20] MEDS ORDERED: PT OWN MED DRAWER 7, Y5N ONE (10:00)
--- NOTE | 2019-08-20 10:19 | PN ---
Physical Exam: SUBJECTIVE: Patient seen and examined; no new complaints. No events reported to me from overnight. Denies CP, SOB, syncope/presyncope. Continue to complete DC planning. 10 sys ROS done and negative aside from HPI OBJECTIVE: Vital Signs Period Temp Pulse Resp BP Sys/Nowak Pulse Ox Last 24 Hr 98.1 F-99.8 F 60-61 18-20 118-130/50-94 GENERAL: The patient is awake, alert, and fully oriented, in no acute distress. HEAD: Normal with no signs of trauma. EYES: PERRL, extraocular movements intact, sclera anicteric, conjunctiva clear ENT: Ears normal, nares patent, oropharynx clear without exudates NECK: Trachea midline, full range of motion, supple. LUNGS: Breath sounds equal, clear to auscultation bilaterally, no wheezes, no crackles, no accessory muscle use. HEART: Regular rate and rhythm, S1, S2 no new mgr ABDOMEN: Soft, nontender, nondistended, normoactive bowel sounds, no guarding EXTREMITIES: 2+ pulses, warm, well-perfused, no edema. NEUROLOGICAL: Cranial nerves II through XII grossly intact. Normal speech PSYCH: Normal mood, normal affect, limited insight. SKIN: Warm, dry, normal turgor, no rashes or lesions noted Laboratory Results - last 24 hr 08/19/19 08/19/19 08/19/19 12:35 17:35 22:30 WBC RBC Hgb Hct MCV MCH MCHC RDW Plt Count MPV PTT (Actin FS) POC Glucometer 223 179 192 08/20/19 08/20/19 08/20/19 06:11 06:30 06:30 WBC 5.4 RBC 3.64 Hgb 11.4 Hct 34.2 MCV 94.0 MCH 31.3 MCHC 33.3 RDW 13.2 Plt Count 199 MPV 8.7 PTT (Actin FS) 38.6 H POC Glucometer 144 Active Medications Generic Name Dose Route Start Last Admin Trade Name Freq PRN Reason Stop Dose Admin Apixaban 5 mg 08/18/19 22:00 08/19/19 21:51 Eliquis - PO 5 mg BID JONAS Administration Carvedilol 25 mg 08/15/19 10:00 08/19/19 21:51 Coreg - PO 25 mg BID JONAS Administration Clopidogrel Bisulfate 75 mg 08/16/19:00 08/19/19 09:45 Plavix - PO 75 mg DAILY JONAS Administration Diltiazem HCl 240 mg 08/15/19 10:00 08/19/19 09:45 Cardizem Cd - PO 240 mg DAILY JONAS Administration Donepezil HCl 5 mg 08/15/19 10:00 08/19/19 09:45 Aricept - PO 5 mg DAILY JONAS Administration Dorzolamide HCl 1 drop 08/15/19 10:00 08/19/19 21:52 Trusopt 2% OU 1 drop BID JONAS Administration Furosemide 40 mg 08/15/19 10:00 08/19/19 09:45 Lasix - PO 40 mg DAILY JONAS Administration Hydroxychloroquine Sulfate 200 mg 08/16/19 10:00 08/19/19 09:45 Plaquenil - PO 200 mg DAILY JONAS Administration Meropenem 1 gm/ Dextrose 100 mls @ 200 mls/hr 08/15/19 21:00 08/19/19 21:51 IVPB 200 mls/hr Q12H JONAS Administration Insulin Aspart 1 vial 08/15/19 11:00 08/20/19 06:13 Novolog Vial Sliding Scale - SQ Not Given ACHS [facility] Protocol Isosorbide Mononitrate 30 mg 08/16/19 10:00 08/19/19 09:45 Imdur - PO 30 mg DAILY JONAS Administration Latanoprost 1 drop 08/15/19 22:00 08/19/19 21:52 Xalatan 0.005% Eye Drops - OU 1 drop HS JONAS Administration Ondansetron HCl 4 mg 08/15/19 07:27 Zofran Injection IVPUSH Q6H PRN NAUSEA Pantoprazole Sodium 40 mg 08/16/19 10:00 08/19/19 09:45 Protonix - PO 40 mg DAILY JONAS Administration Rosuvastatin Calcium 5 mg 08/15/19 22:00 08/19/19 21:51 Crestor - PO 5 mg HS JONAS Administration Timolol Maleate 1 drop 08/15/19 10:00 08/19/19 21:51 Timoptic 0.5% OU 1 drop BID JONAS Administration Valsartan 80 mg 08/15/19 10:00 08/19/19 21:51 Diovan - PO 80 mg BID JONAS Administration Echo per CV: 05/2019 tds, borderline conc LVH, overall LV function grossly borderline to mildly reduced, septal wall motion c/w V pacing, LA mildly dilated , mild to mod AR, mild MR, mild TR ASSESSMENT/PLAN: Patient presents with a multitude of problems as discussed in previous notes; no new issues noted today. Plan to place CVC tomorrow with plans to DC later in day. Problems include: -ESBL Bacteremia (2 weeks IV merrem per ID, needs CVC in AM prior to DC due to AC issues with rheum out of town) -History of Lupus -Lupus AC -Hx CVA on antiplt (full records not availbale) -Hx CAD with remote [employer]S [employer] (technically could hold plavix but would also be indicated for CVA, no OP neuro records indicated, no indication why it was continued, would like more info before making final recommendation given length of time must be off antiplts for PICC) -Hx Afib with elevated CV2 score, on eliquis -S/P PPM -Hx likely mild systolic CHF per 05/2019 echo -Obesity -Hx HTN -Hx Glaucoma -Valvular Heart Disease (Mild to mod AR, mild MR, mild TR-none indicated as hemodynamically significant with no change in exam) -Transaminitis -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 Following labs. She is tolerating abx with no obvious worsening infection. CV status stable and she is euvolemic today on exam. Visit type - Emergency Visit Emergency Visit: Yes ED Registration Date: 08/15/19 Care time: The patient presented to the Emergency Department on the above date and was hospitalized for further evaluation of their emergent condition. - New Patient This patient is new to me today: No - Critical Care Critical Care patient: No
[2019-08-20] MEDS: MEROPENEM 1 GM in DEXTROSE 5%-WATER 100 ML IVPB SCH ×2 (10:35→22:30)
[2019-08-20] MEDS: CARVEDILOL 25 MG TABLET (FP) PO SCH ×2 (10:35→21:35)
[2019-08-20] MEDS: ISOSORBIDE MONONITRATE 30 MG TAB.SR.24H (FP) PO SCH (10:35)
[2019-08-20] MEDS: FUROSEMIDE 40 MG TABLET (FP) PO SCH (10:35)
[2019-08-20] MEDS: CLOPIDOGREL BISULFATE 75 MG TABLET (FP) PO SCH (10:36)
[2019-08-20] MEDS: VALSARTAN 80 MG TABLET (UD) PO SCH ×2 (10:36→21:36)
[2019-08-20] MEDS: APIXABAN 5 MG TABLET PO SCH ×2 (10:36→21:35)
[2019-08-20] MEDS: HYDROXYCHLOROQUINE SO4 200 MG TABLET (FP) PO SCH (10:36)
[2019-08-20] MEDS: DONEPEZIL HCL 5 MG TABLET (FP) PO SCH (10:36)
[2019-08-20] MEDS: PANTOPRAZOLE 40 MG TABLET (FP) PO SCH (10:36)
[2019-08-20] MEDS: TIMOLOL 0.5% OPHTHALMIC SOL 5 ML BOTTLE OU SCH ×2 (10:38→22:30)
[2019-08-20] MEDS: DORZOLAMIDE 2% HCL OPHTHALMIC SOLUTION 10 ML BOTTLE OU SCH ×2 (10:38→22:31)
[2019-08-20] MEDS ORDERED: INSULIN (NOVOLOG) ASPART 100 UNITS/ML 10ML VIAL ONE ×2 (12:04→17:44)
--- NOTE | 2019-08-20 18:21 | PN ---
Progress Note, Physician History of Present Illness: Pt is sitting up eating. She states she feels well. She has no complaints. Family at bedside. - Current Medication List Current Medications: Active Medications Apixaban (Eliquis -) 5 mg PO BID [facility] Last Admin: 08/20/19 10:36 Dose: 5 mg Carvedilol (Coreg -) 25 mg PO BID [facility] Last Admin: 08/20/19 10:35 Dose: 25 mg Clopidogrel Bisulfate (Plavix -) 75 mg PO DAILY [facility] Last Admin: 08/20/19 10:36 Dose: 75 mg Diltiazem HCl (Cardizem Cd -) 240 mg PO DAILY [facility] Last Admin: 08/20/19 10:36 Dose: 240 mg Donepezil HCl (Aricept -) 5 mg PO DAILY [facility] Last Admin: 08/20/19 10:36 Dose: 5 mg Dorzolamide HCl (Trusopt 2%) 1 drop OU BID [facility] Last Admin: 08/20/19 10:38 Dose: 1 drop Furosemide (Lasix -) 40 mg PO DAILY [facility] Last Admin: 08/20/19 10:35 Dose: 40 mg Hydroxychloroquine Sulfate (Plaquenil -) 200 mg PO DAILY [facility] Last Admin: 08/20/19 10:36 Dose: 200 mg Meropenem 1 gm/ Dextrose 100 mls @ 200 mls/hr IVPB Q12H [facility] Last Admin: 08/20/19 10:35 Dose: 200 mls/hr Insulin Aspart (Novolog Vial Sliding Scale -) 1 vial SQ ACHS [facility]; Protocol Last Admin: 08/20/19 17:49 Dose: 4 units Isosorbide Mononitrate (Imdur -) 30 mg PO DAILY [facility] Last Admin: 08/20/19 10:35 Dose: 30 mg Latanoprost (Xalatan 0.005% Eye Drops -) 1 drop OU HS [facility] Last Admin: 08/19/19 21:52 Dose: 1 drop Ondansetron HCl (Zofran Injection) 4 mg IVPUSH Q6H PRN PRN Reason: NAUSEA Pantoprazole Sodium (Protonix -) 40 mg PO DAILY [facility] Last Admin: 08/20/19 10:36 Dose: 40 mg Rosuvastatin Calcium (Crestor -) 5 mg PO HS [facility] Last Admin: 08/19/19 21:51 Dose: 5 mg Timolol Maleate (Timoptic 0.5%) 1 drop OU BID [facility] Last Admin: 08/20/19 10:38 Dose: 1 drop Valsartan (Diovan -) 80 mg PO BID [facility] Last Admin: 08/20/19 10:36 Dose: 80 mg - Objective Vital Signs: Vital Signs Temperature 97.8 F 08/20/19 17:16 Pulse Rate 62 08/20/19 17:16 Respiratory Rate 20 08/20/19 17:16 Blood Pressure 116/55 L 08/20/19 17:16 O2 Sat by Pulse Oximetry (%) 98 08/16/19 20:48 Constitutional: Yes: No Distress, Calm Cardiovascular: Yes: Regular Rate and Rhythm Respiratory: Yes: Regular Gastrointestinal: Yes: Normal Bowel Sounds, Soft Genitourinary: Yes: WNL Musculoskeletal: Yes: WNL Integumentary: Yes: WNL Neurological: Yes: Alert Labs: CBC, BMP 08/20/19 06:30 08/19/19 08:44 INR, PTT INR 1.78 (0.83-1.09) H 08/14/19 21:32 Microbiology 08/16/19 14:30 Blood - Peripheral Venous Blood Culture - Preliminary NO GROWTH OBTAINED AFTER 96 HOURS, INCUBATION TO CONTINUE FOR 1 DAYS. 08/16/19 12:36 Blood - Peripheral Venous Blood Culture - Preliminary NO GROWTH OBTAINED AFTER 96 HOURS, INCUBATION TO CONTINUE FOR 1 DAYS. 08/14/19 21:32 Blood - Peripheral Venous Blood Culture - Final Lactose Fermenting Neg Bacilli 08/14/19 21:37 Urine - Urine Clean Catch Urine Culture - Final Citrobacter Koseri 08/14/19 21:32 Blood - Peripheral Venous Blood Culture - Final Escherichia Coli Esbl Demand Planner 08/16/19 10:00 Nares - Right Nares MRSA Screen - Final NO MRSA ISOLATED 08/16/19 10:00 Nares - Left Nares MRSA Screen - Final NO MRSA ISOLATED Problem List - Problems (1) Abdominal pain Code(s): R10.9 - UNSPECIFIED ABDOMINAL PAIN (2) Afib Code(s): I48.91 - UNSPECIFIED ATRIAL FIBRILLATION Qualifiers: Atrial fibrillation type: paroxysmal Qualified Code(s): I48.0 - Paroxysmal atrial fibrillation (3) Anemia Code(s): D64.9 - ANEMIA, UNSPECIFIED (4) CHF (congestive heart failure) Code(s): I50.9 - HEART FAILURE, UNSPECIFIED (5) DVT (deep venous thrombosis) Code(s): I82.409 - ACUTE EMBOLISM AND THOMBOS UNSP DEEP VN UNSP LOWER EXTREMITY Qualifiers: DVT location: lower extremity Affected thrombotic vein of extremity: popliteal Chronicity: acute Laterality: left Qualified Code(s): I82.432 - Acute embolism and thrombosis of left popliteal vein (6) Diabetes Code(s): E11.9 - TYPE 2 DIABETES MELLITUS WITHOUT COMPLICATIONS Qualifiers: Diabetes mellitus type: type 2 (7) HLD (hyperlipidemia) Code(s): E78.5 - HYPERLIPIDEMIA, UNSPECIFIED (8) HTN (hypertension) Code(s): I10 - ESSENTIAL (PRIMARY) HYPERTENSION Qualifiers: Hypertension type: essential hypertension Qualified Code(s): I10 - Essential (primary) hypertension (9) Lupus (systemic lupus erythematosus) Code(s): M32.9 - SYSTEMIC LUPUS ERYTHEMATOSUS, UNSPECIFIED (10) UTI (urinary tract infection) Code(s): N39.0 - URINARY TRACT INFECTION, SITE NOT SPECIFIED Qualifiers: Urinary tract infection type: acute cystitis Assessment/Plan Gram neg bacteremia UTI Lupus Hx of CVA AFIB Hx of DVT -- continue Meropenem IV x 2 wks total treatment -- latest blood cultures neg -- clinically improving -- continue monitor
[2019-08-20] MEDS: ROSUVASTATIN CA 5 MG TABLET (FP) PO SCH (21:35)
[2019-08-20] MEDS: LATANOPROST 0.005% OPHTH SOLN 2.5ML BOTTLE OU SCH (22:31)
[2019-08-21] MEDS ORDERED: INSULIN (NOVOLOG) ASPART 100 UNITS/ML 10ML VIAL ONE (06:03)
[2019-08-21] MEDS: INSULIN SLIDING SCALE (NOVOLOG) 1 VIAL SQ SCH ×4 (06:38→21:40)
[2019-08-21 08:34] LABS: HEMATOCRIT 35.6 % (32.4-45.2); HEMOGLOBIN 11.9 GM/dL (10.7-15.3); MCH 31.5 pg (25.7-33.7); MCHC 33.5 g/dl (32.0-36.0); MEAN CELL VOLUME 94.2 fl (80-96); MEAN PLT VOLUME 8.6 fl (7.5-11.1); PLATELET COUNT 218 K/MM3 (134-434); RBC 3.78 M/mm3 (3.60-5.2); RDW 13.3 % (11.6-15.6); WHITE BLOOD COUNT 6.1 K/mm3 (4.0-10.0)
--- NOTE | 2019-08-21 10:16 | PN ---
Progress Note, Physician History of Present Illness: patient stable no new issues - Current Medication List Current Medications: Active Medications Apixaban (Eliquis -) 5 mg PO BID [facility] Last Admin: 08/20/19 21:35 Dose: 5 mg Carvedilol (Coreg -) 25 mg PO BID [facility] Last Admin: 08/20/19 21:35 Dose: 25 mg Clopidogrel Bisulfate (Plavix -) 75 mg PO DAILY [facility] Last Admin: 08/20/19 10:36 Dose: 75 mg Diltiazem HCl (Cardizem Cd -) 240 mg PO DAILY [facility] Last Admin: 08/20/19 10:36 Dose: 240 mg Donepezil HCl (Aricept -) 5 mg PO DAILY [facility] Last Admin: 08/20/19 10:36 Dose: 5 mg Dorzolamide HCl (Trusopt 2%) 1 drop OU BID [facility] Last Admin: 08/20/19 22:31 Dose: 1 drop Furosemide (Lasix -) 40 mg PO DAILY [facility] Last Admin: 08/20/19 10:35 Dose: 40 mg Hydroxychloroquine Sulfate (Plaquenil -) 200 mg PO DAILY [facility] Last Admin: 08/20/19 10:36 Dose: 200 mg Meropenem 1 gm/ Dextrose 100 mls @ 200 mls/hr IVPB Q12H [facility] Last Admin: 08/20/19 22:30 Dose: 200 mls/hr Insulin Aspart (Novolog Vial Sliding Scale -) 1 vial SQ ACHS [facility]; Protocol Last Admin: 08/21/19 06:38 Dose: 2 units Isosorbide Mononitrate (Imdur -) 30 mg PO DAILY [facility] Last Admin: 08/20/19 10:35 Dose: 30 mg Latanoprost (Xalatan 0.005% Eye Drops -) 1 drop OU HS [facility] Last Admin: 08/20/19 22:31 Dose: 1 drop Ondansetron HCl (Zofran Injection) 4 mg IVPUSH Q6H PRN PRN Reason: NAUSEA Pantoprazole Sodium (Protonix -) 40 mg PO DAILY [facility] Last Admin: 08/20/19 10:36 Dose: 40 mg Rosuvastatin Calcium (Crestor -) 5 mg PO HS [facility] Last Admin: 08/20/19 21:35 Dose: 5 mg Timolol Maleate (Timoptic 0.5%) 1 drop OU BID [facility] Last Admin: 08/20/19 22:30 Dose: 1 drop Valsartan (Diovan -) 80 mg PO BID [facility] Last Admin: 08/20/19 21:36 Dose: 80 mg - Objective Vital Signs: Vital Signs Temperature 97.8 F 08/21/19 06:00 Pulse Rate 60 08/21/19 06:00 Respiratory Rate 20 08/21/19 06:00 Blood Pressure 148/66 08/21/19 06:00 O2 Sat by Pulse Oximetry (%) 98 08/16/19 20:48 Constitutional: Yes: No Distress, Calm Cardiovascular: Yes: S1, S2 Respiratory: Yes: Regular, CTA Bilaterally Gastrointestinal: Yes: Normal Bowel Sounds, Soft Musculoskeletal: Yes: WNL Extremities: Yes: WNL Neurological: Yes: Alert, Oriented Psychiatric: Yes: Alert, Oriented Labs: CBC, BMP 08/21/19 06:28 08/19/19 08:44 INR, PTT INR 1.78 (0.83-1.09) H 08/14/19 21:32 Assessment/Plan Problem List - Problems (1) Abdominal pain Code(s): R10.9 - UNSPECIFIED ABDOMINAL PAIN (2) Afib Code(s): I48.91 - UNSPECIFIED ATRIAL FIBRILLATION Qualifiers: Atrial fibrillation type: paroxysmal Qualified Code(s): I48.0 - Paroxysmal atrial fibrillation (3) Anemia Code(s): D64.9 - ANEMIA, UNSPECIFIED (4) CHF (congestive heart failure) Code(s): I50.9 - HEART FAILURE, UNSPECIFIED (5) DVT (deep venous thrombosis) Code(s): I82.409 - ACUTE EMBOLISM AND THOMBOS UNSP DEEP VN UNSP LOWER EXTREMITY Qualifiers: DVT location: lower extremity Affected thrombotic vein of extremity: popliteal Chronicity: acute Laterality: left Qualified Code(s): I82.432 - Acute embolism and thrombosis of left popliteal vein (6) Diabetes Code(s): E11.9 - TYPE 2 DIABETES MELLITUS WITHOUT COMPLICATIONS Qualifiers: Diabetes mellitus type: type 2 (7) HLD (hyperlipidemia) Code(s): E78.5 - HYPERLIPIDEMIA, UNSPECIFIED (8) HTN (hypertension) Code(s): I10 - ESSENTIAL (PRIMARY) HYPERTENSION Qualifiers: Hypertension type: essential hypertension Qualified Code(s): I10 - Essential (primary) hypertension (9) Lupus (systemic lupus erythematosus) Code(s): M32.9 - SYSTEMIC LUPUS ERYTHEMATOSUS, UNSPECIFIED (10) UTI (urinary tract infection) Code(s): N39.0 - URINARY TRACT INFECTION, SITE NOT SPECIFIED Qualifiers: Urinary tract infection type: acute cystitis Assessment/Plan Gram neg bacteremia UTI Lupus Hx of CVA AFIB Hx of DVT -- continue Meropenem IV x 2 wks total treatment -- latest blood cultures neg -- clinically improving -- continue monitor
[2019-08-21] MEDS ORDERED: DEXTROSE 5%-WATER 100 ML IVPB ONE (10:43)
[2019-08-21] MEDS ORDERED: MEROPENEM 1 GM VIAL (RESTRICTED TO ID) IVPB ONE (10:43)
[2019-08-21] MEDS: DONEPEZIL HCL 5 MG TABLET (FP) PO SCH (10:52)
[2019-08-21] MEDS: PANTOPRAZOLE 40 MG TABLET (FP) PO SCH (10:52)
[2019-08-21] MEDS: MEROPENEM 1 GM in DEXTROSE 5%-WATER 100 ML IVPB SCH ×2 (10:52→21:36)
[2019-08-21] MEDS: ISOSORBIDE MONONITRATE 30 MG TAB.SR.24H (FP) PO SCH (10:53)
[2019-08-21] MEDS: CARVEDILOL 25 MG TABLET (FP) PO SCH ×2 (10:53→21:37)
[2019-08-21] MEDS: FUROSEMIDE 40 MG TABLET (FP) PO SCH (10:53)
[2019-08-21] MEDS: VALSARTAN 80 MG TABLET (UD) PO SCH ×2 (10:53→21:37)
[2019-08-21] MEDS: TIMOLOL 0.5% OPHTHALMIC SOL 5 ML BOTTLE OU SCH ×2 (10:54→21:37)
[2019-08-21] MEDS: DORZOLAMIDE 2% HCL OPHTHALMIC SOLUTION 10 ML BOTTLE OU SCH ×2 (10:55→21:38)
[2019-08-21] MEDS ORDERED: NYSTATIN 100,000 UNIT/GM TOPICAL CREAM 15 GM TUBE TP SCH (14:00)
[2019-08-21] MEDS: HYDROXYCHLOROQUINE SO4 200 MG TABLET (FP) PO SCH (14:10)
[2019-08-21 15:52] VITALS: PULSE 60
--- NOTE | 2019-08-21 16:23 | PN ---
Progress Note (short form) - Note Progress Note: s: no chest pain, palps, dizziness, dyspnea Current Medications Apixaban (Eliquis -) 5 mg PO BID [facility] Last Admin: 08/20/19 21:35 Dose: 5 mg Carvedilol (Coreg -) 25 mg PO BID [facility] Last Admin: 08/21/19 10:53 Dose: 25 mg Clopidogrel Bisulfate (Plavix -) 75 mg PO DAILY [facility] Last Admin: 08/20/19 10:36 Dose: 75 mg Diltiazem HCl (Cardizem Cd -) 240 mg PO DAILY [facility] Last Admin: 08/21/19 12:17 Dose: 240 mg Donepezil HCl (Aricept -) 5 mg PO DAILY [facility] Last Admin: 08/21/19 10:52 Dose: 5 mg Dorzolamide HCl (Trusopt 2%) 1 drop OU BID [facility] Last Admin: 08/21/19 10:55 Dose: 1 drop Furosemide (Lasix -) 40 mg PO DAILY [facility] Last Admin: 08/21/19 10:53 Dose: 40 mg Hydroxychloroquine Sulfate (Plaquenil -) 200 mg PO DAILY [facility] Last Admin: 08/21/19 14:10 Dose: 200 mg Meropenem 1 gm/ Dextrose 100 mls @ 200 mls/hr IVPB Q12H [facility] Last Admin: 08/21/19 10:52 Dose: 200 mls/hr Insulin Aspart (Novolog Vial Sliding Scale -) 1 vial SQ ACHS [facility]; Protocol Last Admin: 08/21/19 12:19 Dose: 6 units Isosorbide Mononitrate (Imdur -) 30 mg PO DAILY [facility] Last Admin: 08/21/19 10:53 Dose: 30 mg Latanoprost (Xalatan 0.005% Eye Drops -) 1 drop OU HS [facility] Last Admin: 08/20/19 22:31 Dose: 1 drop Nystatin (Mycostatin Cream -) 1 applic TP BID [facility] Ondansetron HCl (Zofran Injection) 4 mg IVPUSH Q6H PRN PRN Reason: NAUSEA Pantoprazole Sodium (Protonix -) 40 mg PO DAILY [facility] Last Admin: 08/21/19 10:52 Dose: 40 mg Rosuvastatin Calcium (Crestor -) 5 mg PO HS [facility] Last Admin: 08/20/19 21:35 Dose: 5 mg Timolol Maleate (Timoptic 0.5%) 1 drop OU BID [facility] Last Admin: 08/21/19 10:54 Dose: 1 drop Valsartan (Diovan -) 80 mg PO BID [facility] Last Admin: 08/21/19 10:53 Dose: 80 mg Vital Signs Period Temp Pulse Resp BP Sys/[place]ak Pulse Ox Last 24 Hr 97.0 F-98.2 F 60-80 18-20 116-154/55-74 Constitutional: Yes: No Distress, Calm Cardiovascular: Yes: Regular Rate and Rhythm Respiratory: Yes: CTA Bilaterally Gastrointestinal: Yes: Soft (NT) Edema: No Neurological: Yes: Alert no jaundice, diaphoresis not agitated Assessment/Plan echo in office 05/2019 tds, borderline conc LVH, overall LV function grossly borderline to mildly reduced, septal wall motion c/w V pacing, LA mildly dilated , mild to mod AR, mild MR, mild TR EKG: AP, LBBB simlar to prior abdominal pain - surgery evaluated - no acute indication for surgery - GI, ID following, on abx -UTI afib s/p PPM - eliquis on hold for planned PICC line tomorrow AM, resume when able following line placement - outpatient ppm monitoring HTN - cont current meds CAD - remote PCI, cont statin - plavix held for PICC line placement tomorrrow, resume after line placement AAA s/p EVAR - cont bb, bp control - vascular eval chronic diastolic HF - appears euvolemic, cont current cardiac meds
[2019-08-21] MEDS ORDERED: PT OWN MED DRAWER 7, Y5N ONE (17:08)
--- NOTE | 2019-08-21 17:30 | PN ---
Progress Note (short form) - Note Progress Note: Vascular Surgery CT scan of abd/pelvis reviewed. Stent graft in place. Aneurysm is excluded. No need for surgery at this time. Chalo Stroud DO
[2019-08-21] MEDS: ROSUVASTATIN CA 5 MG TABLET (FP) PO SCH (21:37)
[2019-08-21] MEDS: LATANOPROST 0.005% OPHTH SOLN 2.5ML BOTTLE OU SCH (21:38)
--- NOTE | 2019-08-21 21:42 | PN ---
Progress Note (short form) - Note Progress Note: HPI: No events overnight. No new complaints today. Pt feels good today. Denies any abdominal pain. Vital Signs Temperature 98.1 F 08/19/19 06:00 Pulse Rate 60 08/19/19 06:00 Respiratory Rate 18 08/19/19 06:00 Blood Pressure 150/70 08/19/19 06:00 O2 Sat by Pulse Oximetry (%) 98 08/16/19 20:48 PE GENERAL: The patient is awake, alert, and fully oriented, in no acute distress. HEENT: NC/AT, JONAS, sclera anicteric, MMM, dentures + NECK: No JVD LUNGS: CTA bilaterally, no wheezes, no crackles, no accessory muscle use. HEART: RRR, S1, S2 without murmur ABDOMEN: Soft, NT/ND, normoactive bowel sounds, no guarding EXTREMITIES: 2+ DP pulses, warm, well-perfused, no edema. PSYCH: Normal mood, normal affect. SKIN: Warm, dry, no rashes or lesions noted CBC, BMP 08/19/19 08:44 Active Medications Apixaban (Eliquis -) 5 mg PO BID [facility] Last Admin: 08/18/19 22:29 Dose: 5 mg Carvedilol (Coreg -) 25 mg PO BID [facility] Last Admin: 08/18/19 22:29 Dose: 25 mg Clopidogrel Bisulfate (Plavix -) 75 mg PO DAILY [facility] Last Admin: 08/18/19 10:44 Dose: 75 mg Diltiazem HCl (Cardizem Cd -) 240 mg PO DAILY [facility] Last Admin: 08/18/19 10:44 Dose: 240 mg Donepezil HCl (Aricept -) 5 mg PO DAILY [facility] Last Admin: 08/18/19 10:44 Dose: 5 mg Dorzolamide HCl (Trusopt 2%) 1 drop OU BID [facility] Last Admin: 08/18/19 22:27 Dose: 1 drop Furosemide (Lasix -) 40 mg PO DAILY [facility] Last Admin: 08/18/19 10:45 Dose: 40 mg Hydroxychloroquine Sulfate (Plaquenil -) 200 mg PO DAILY [facility] Last Admin: 08/18/19 10:45 Dose: 200 mg Meropenem 1 gm/ Dextrose 100 mls @ 200 mls/hr IVPB Q12H [facility] Last Admin: 08/19/19 08:36 Dose: 200 mls/hr Insulin Aspart (Novolog Vial Sliding Scale -) 1 vial SQ ACHS [facility]; Protocol Last Admin: 08/19/19 07:03 Dose: Not Given Isosorbide Mononitrate (Imdur -) 30 mg PO DAILY [facility] Last Admin: 08/18/19 10:45 Dose: 30 mg Latanoprost (Xalatan 0.005% Eye Drops -) 1 drop OU HS [facility] Last Admin: 08/18/19 22:31 Dose: 1 drop Ondansetron HCl (Zofran Injection) 4 mg IVPUSH Q6H PRN PRN Reason: NAUSEA Pantoprazole Sodium (Protonix -) 40 mg PO DAILY [facility] Last Admin: 08/18/19 10:45 Dose: 40 mg Rosuvastatin Calcium (Crestor -) 5 mg PO HS [facility] Last Admin: 08/18/19 22:29 Dose: 5 mg Timolol Maleate (Timoptic 0.5%) 1 drop OU BID [facility] Last Admin: 08/18/19 22:30 Dose: 1 drop Valsartan (Diovan -) 80 mg PO BID [facility] Last Admin: 08/18/19 22:29 Dose: 80 mg Microbiology 08/16/19 14:30 Blood - Peripheral Venous Blood Culture - Preliminary NO GROWTH OBTAINED AFTER 48 HOURS, INCUBATION TO CONTINUE FOR 3 DAYS. 08/16/19 12:36 Blood - Peripheral Venous Blood Culture - Preliminary NO GROWTH OBTAINED AFTER 48 HOURS, INCUBATION TO CONTINUE FOR 3 DAYS. 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 prior) --Appeciate all consultation recommendations --Continue Meropenem due to ESBL bacteremia; projected 14 day total of Meropenem 1gm per ID --Will need PICC line and outpatient dispo plan for IV ABX --Isolation precautions --Reviewed cultures and sensitivies; most recent cleared --HIDA normal biliary ductal system and no dyskinesia --Monitor LFTs and avoid hepatotoxic agents --Continue home lupus medications --Continue home medications as below: Cardizem 240mg qdaily Coreg 25mg BID Diovan 80mg BID Imdur 30mg qdaily Plavix 75mg qdaily FEN: Fluids: PO only Electrolyte abnormalities: awaiting labs today Nutrition: Advanced PPX: DVT - Eliquis Dispo: PICC and IV ABX plan Case discussed with Dr. Thien Rodrigues, DO - IM PGY-3
[2019-08-21] MEDS ORDERED: MICONAZOLE NITRATE 200 MG VAGINAL SUPPOSITORY PV SCH (22:00)
[2019-08-21] MEDS ORDERED: MICONAZOLE NITRATE 100 MG SUPP SUPP.VAG PV SCH (22:00)
[2019-08-22] MEDS: INSULIN SLIDING SCALE (NOVOLOG) 1 VIAL SQ SCH ×2 (06:11→12:02)
[2019-08-22 07:20] LABS: HEMATOCRIT 35.9 % (32.4-45.2); HEMOGLOBIN 11.8 GM/dL (10.7-15.3); MCH 31.3 pg (25.7-33.7); MCHC 32.9 g/dl (32.0-36.0); MEAN CELL VOLUME 95.3 fl (80-96); MEAN PLT VOLUME 9.3 fl (7.5-11.1); PLATELET COUNT 209 K/MM3 (134-434); RBC 3.76 M/mm3 (3.60-5.2); WHITE BLOOD COUNT 6.9 K/mm3 (4.0-10.0)
[2019-08-22 07:48] LABS: BLOOD UREA NITROGEN 21.6 mg/dL (7-18); CALCIUM 9.4 mg/dL (8.5-10.1); CREATININE 1.3 mg/dL (0.55-1.3); POTASSIUM 3.5 mmol/L (3.5-5.1)
--- NOTE | 2019-08-22 09:26 | DS ---
Physical Exam: SUBJECTIVE: Patient seen and examined OBJECTIVE: Vital Signs Period Temp Pulse Resp BP Sys/[place]ak Pulse Ox Last 24 Hr 97.0 F-98.3 F 60-80 18-20 129-168/63-74 99 PHYSICAL EXAM GENERAL: The patient is awake, alert, and fully oriented, in no acute distress. HEAD: Normal with no signs of trauma. EYES: PERRL, extraocular movements intact, sclera anicteric, conjunctiva clear. ENT: Ears normal, nares patent, oropharynx clear without exudates, moist mucous membranes. NECK: Trachea midline, full range of motion, supple. LUNGS: Breath sounds equal, clear to auscultation bilaterally, no wheezes, no crackles, no accessory muscle use. HEART: Regular rate and rhythm, S1, S2 without murmur, rub or gallop. ABDOMEN: Soft, nontender, nondistended, normoactive bowel sounds, no guarding, no rebound, no hepatosplenomegaly, no masses. EXTREMITIES: 2+ pulses, warm, well-perfused, no edema. NEUROLOGICAL: Cranial nerves II through XII grossly intact. Normal speech, gait not observed. PSYCH: Normal mood, normal affect. SKIN: Warm, dry, normal turgor, no rashes or lesions noted. LABS Laboratory Results - last 24 hr 08/21/19 08/21/19 08/21/19 12:00 12:19 17:40 WBC RBC Hgb Hct MCV MCH MCHC RDW Plt Count MPV PTT (Actin FS) 40.2 H Sodium Potassium Chloride Carbon Dioxide Anion Gap BUN Creatinine Est GFR (CKD-EPI)AfAm Est GFR (CKD-EPI)NonAf POC Glucometer 278 190 Random Glucose Calcium 08/21/19 08/22/19 08/22/19 21:39 05:53 06:30 WBC 6.9 RBC 3.76 Hgb 11.8 Hct 35.9 MCV 95.3 MCH 31.3 MCHC 32.9 RDW 13.0 Plt Count 209 MPV 9.3 PTT (Actin FS) Sodium Potassium Chloride Carbon Dioxide Anion Gap BUN Creatinine Est GFR (CKD-EPI)AfAm Est GFR (CKD-EPI)NonAf POC Glucometer 160 149 Random Glucose Calcium 08/22/19 06:30 WBC RBC Hgb Hct MCV MCH MCHC RDW Plt Count MPV PTT (Actin FS) Sodium 139 Potassium 3.5 Chloride 106 Carbon Dioxide 28 Anion Gap 6 L BUN 21.6 H Creatinine 1.3 Est GFR (CKD-EPI)AfAm 46.47 Est GFR (CKD-EPI)NonAf 40.10 POC Glucometer Random Glucose 155 H Calcium 9.4 HOSPITAL COURSE: Date of Admission:08/15/19 Date of Discharge: 08/22/19 Discharge Summary Problems reviewed: Yes Reason For Visit: CHOLECYSTITIS Current Active Problems Abdominal pain (Acute) Abnormal liver function test (Acute) Cholecystitis (Acute) Condition: Stable - Instructions Diet, Activity, Other Instructions: You were seen here due to your infection. We also investigated your gallbladder which showed no stones or blocking stones. We treated you with IV antibiotics Referrals: Noah Gorman MD [Staff Physician] - Renetta Trent MD [Staff Physician] - Chris Johnson MD [Primary Care Provider] - Disposition: VNS/HOME HEALTH CARE - Home Medications Comprehensive Discharge Medication List: Ambulatory Orders Carvedilol [Coreg -] 25 mg PO BID 11/09/18 Clopidogrel Bisulfate [Plavix] 75 mg PO DAILY 11/09/18 Colchicine [Colcrys] 0.6 mg PO BID 11/09/18 Diltiazem HCl [Diltiazem 24Hr Cd] 240 mg PO DAILY 11/09/18 Donepezil HCl [Aricept] 5 mg PO DAILY 11/09/18 Dorzolamide HCl [Trusopt 2% -] 1 drop OU BID 11/09/18 Ferrous Sulfate 325 mg PO DAILY 11/09/18 Furosemide [Lasix -] 40 mg PO DAILY 11/09/18 Hydroxychloroquine Sulfate [Plaquenil] 200 mg PO DAILY 11/09/18 Latanoprost 1 drop OU HS 11/09/18 Linagliptin/Metformin HCl [Jentadueto 2.5 mg-500 mg Tab] 1 each PO BID 11/09/18 Multivitamin [Multiple Vitamins] 1 each PO DAILY 11/09/18 Ondansetron [Zofran -] 4 mg PO DAILY 11/09/18 Pantoprazole Sodium 40 mg PO DAILY 11/09/18 Rosuvastatin [Crestor -] 5 mg PO HS 11/09/18 Timolol [Betimol] 1 drop OU BID 11/09/18 Ubidecarenone [Co Q-10] 0 mg PO DAILY 11/09/18 Apixaban [Eliquis -] 5 mg PO BID #60 tablet 11/21/18 Calcium (Oyster Shell) [Os-Gino 500MG -] 500 mg PO DAILY #60 tablet 11/21/18 Ergocalciferol [Vitamin D2] 50,000 unit PO Q7D@1000 #30 capsule 11/21/18 Isosorbide Mononitrate [Imdur -] 30 mg PO DAILY #60 tab.sr.24h 11/21/18 Valsartan [Diovan] 80 mg PO BID #60 tablet 11/21/18 Meropenem [Merrem (Restricted To Id) -] 1 gm IVPB DAILY 6 Days #6 vial 08/21/19 - Discharge Referral Referred to [facility] No
[2019-08-22 10:11] VITALS: BP 186/75; TEMP 98.2
--- NOTE | 2019-08-22 11:18 | PN ---
Progress Note, Physician History of Present Illness: stable no new issues - Current Medication List Current Medications: Active Medications Apixaban (Eliquis -) 5 mg PO BID [facility] Last Admin: 08/20/19 21:35 Dose: 5 mg Carvedilol (Coreg -) 25 mg PO BID [facility] Last Admin: 08/21/19 21:37 Dose: 25 mg Clopidogrel Bisulfate (Plavix -) 75 mg PO DAILY [facility] Last Admin: 08/20/19 10:36 Dose: 75 mg Diltiazem HCl (Cardizem Cd -) 240 mg PO DAILY [facility] Last Admin: 08/21/19 12:17 Dose: 240 mg Donepezil HCl (Aricept -) 5 mg PO DAILY [facility] Last Admin: 08/21/19 10:52 Dose: 5 mg Dorzolamide HCl (Trusopt 2%) 1 drop OU BID [facility] Last Admin: 08/21/19 21:38 Dose: 1 drop Furosemide (Lasix -) 40 mg PO DAILY [facility] Last Admin: 08/21/19 10:53 Dose: 40 mg Hydroxychloroquine Sulfate (Plaquenil -) 200 mg PO DAILY [facility] Last Admin: 08/21/19 14:10 Dose: 200 mg Meropenem 1 gm/ Dextrose 100 mls @ 200 mls/hr IVPB Q12H [facility] Last Admin: 08/21/19 21:36 Dose: 200 mls/hr Insulin Aspart (Novolog Vial Sliding Scale -) 1 vial SQ ACHS [facility]; Protocol Last Admin: 08/22/19 06:11 Dose: Not Given Isosorbide Mononitrate (Imdur -) 30 mg PO DAILY [facility] Last Admin: 08/21/19 10:53 Dose: 30 mg Latanoprost (Xalatan 0.005% Eye Drops -) 1 drop OU HS [facility] Last Admin: 08/21/19 21:38 Dose: 1 drop Miconazole Nitrate (Miconazole 3) 200 mg PV HS [facility] Stop: 08/23/19 22:01 Last Admin: 08/21/19 21:36 Dose: 200 mg Ondansetron HCl (Zofran Injection) 4 mg IVPUSH Q6H PRN PRN Reason: NAUSEA Pantoprazole Sodium (Protonix -) 40 mg PO DAILY [facility] Last Admin: 08/21/19 10:52 Dose: 40 mg Rosuvastatin Calcium (Crestor -) 5 mg PO HS [facility] Last Admin: 10/14/19 21:37 Dose: 5 mg Timolol Maleate (Timoptic 0.5%) 1 drop OU BID [facility] Last Admin: 08/21/19 21:37 Dose: 1 drop Valsartan (Diovan -) 80 mg PO BID [facility] Last Admin: 08/21/19 21:37 Dose: 80 mg - Objective Vital Signs: Vital Signs Temperature 98.2 F 08/22/19 10:00 Pulse Rate 60 08/22/19 10:00 Respiratory Rate 18 08/22/19 10:00 Blood Pressure 186/75 H 08/22/19 10:00 O2 Sat by Pulse Oximetry (%) 99 08/21/19 21:00 Constitutional: Yes: No Distress, Calm Cardiovascular: Yes: S1, S2 Respiratory: Yes: Regular, CTA Bilaterally Gastrointestinal: Yes: Normal Bowel Sounds, Soft Musculoskeletal: Yes: WNL Extremities: Yes: WNL Neurological: Yes: Alert, Oriented Psychiatric: Yes: Alert, Oriented Labs: CBC, BMP 08/22/19 06:30 08/22/19 06:30 INR, PTT INR 1.78 (0.83-1.09) H 08/14/19 21:32 Assessment/Plan Problem List - Problems (1) Abdominal pain Code(s): R10.9 - UNSPECIFIED ABDOMINAL PAIN (2) Afib Code(s): I48.91 - UNSPECIFIED ATRIAL FIBRILLATION Qualifiers: Atrial fibrillation type: paroxysmal Qualified Code(s): I48.0 - Paroxysmal atrial fibrillation (3) Anemia Code(s): D64.9 - ANEMIA, UNSPECIFIED (4) CHF (congestive heart failure) Code(s): I50.9 - HEART FAILURE, UNSPECIFIED (5) DVT (deep venous thrombosis) Code(s): I82.409 - ACUTE EMBOLISM AND THOMBOS UNSP DEEP VN UNSP LOWER EXTREMITY Qualifiers: DVT location: lower extremity Affected thrombotic vein of extremity: popliteal Chronicity: acute Laterality: left Qualified Code(s): I82.432 - Acute embolism and thrombosis of left popliteal vein (6) Diabetes Code(s): E11.9 - TYPE 2 DIABETES MELLITUS WITHOUT COMPLICATIONS Qualifiers: Diabetes mellitus type: type 2 (7) HLD (hyperlipidemia) Code(s): E78.5 - HYPERLIPIDEMIA, UNSPECIFIED (8) HTN (hypertension) Code(s): I10 - ESSENTIAL (PRIMARY) HYPERTENSION Qualifiers: Hypertension type: essential hypertension Qualified Code(s): I10 - Essential (primary) hypertension (9) Lupus (systemic lupus erythematosus) Code(s): M32.9 - SYSTEMIC LUPUS ERYTHEMATOSUS, UNSPECIFIED (10) UTI (urinary tract infection) Code(s): N39.0 - URINARY TRACT INFECTION, SITE NOT SPECIFIED Qualifiers: Urinary tract infection type: acute cystitis Assessment/Plan Gram neg bacteremia UTI Lupus Hx of CVA AFIB Hx of DVT -- continue Meropenem IV x 2 wks total treatment -- latest blood cultures neg -- clinically improving -- continue monitor
[2019-08-22] MEDS ORDERED: DEXTROSE 5%-WATER 100 ML IVPB ONE (11:54)
[2019-08-22] MEDS ORDERED: MEROPENEM 1 GM VIAL (RESTRICTED TO ID) IVPB ONE (11:54)
[2019-08-22] MEDS: HYDROXYCHLOROQUINE SO4 200 MG TABLET (FP) PO SCH (12:04)
[2019-08-22] MEDS: MEROPENEM 1 GM in DEXTROSE 5%-WATER 100 ML IVPB SCH (12:04)
[2019-08-22] MEDS: VALSARTAN 80 MG TABLET (UD) PO SCH (12:04)
[2019-08-22] MEDS: ISOSORBIDE MONONITRATE 30 MG TAB.SR.24H (FP) PO SCH (12:06)
[2019-08-22] MEDS: FUROSEMIDE 40 MG TABLET (FP) PO SCH (12:07)
[2019-08-22] MEDS: CARVEDILOL 25 MG TABLET (FP) PO SCH (12:07)
[2019-08-22] MEDS: PANTOPRAZOLE 40 MG TABLET (FP) PO SCH (12:07)
[2019-08-22] MEDS: DONEPEZIL HCL 5 MG TABLET (FP) PO SCH (12:07)
[2019-08-22] MEDS: DORZOLAMIDE 2% HCL OPHTHALMIC SOLUTION 10 ML BOTTLE OU SCH (12:08)
[2019-08-22] MEDS: TIMOLOL 0.5% OPHTHALMIC SOL 5 ML BOTTLE OU SCH (12:09)
--- NOTE | 2019-08-22 13:38 | PN ---
Progress Note, Physician Chief Complaint: no CP or SOB - Current Medication List Current Medications: Active Medications Apixaban (Eliquis -) 5 mg PO BID [facility] Last Admin: 08/20/19 21:35 Dose: 5 mg Carvedilol (Coreg -) 25 mg PO BID [facility] Last Admin: 08/22/19 12:07 Dose: 25 mg Clopidogrel Bisulfate (Plavix -) 75 mg PO DAILY [facility] Last Admin: 08/20/19 10:36 Dose: 75 mg Diltiazem HCl (Cardizem Cd -) 240 mg PO DAILY [facility] Last Admin: 08/22/19 12:08 Dose: 240 mg Donepezil HCl (Aricept -) 5 mg PO DAILY [facility] Last Admin: 08/22/19 12:07 Dose: 5 mg Dorzolamide HCl (Trusopt 2%) 1 drop OU BID [facility] Last Admin: 08/22/19 12:08 Dose: 1 drop Furosemide (Lasix -) 40 mg PO DAILY [facility] Last Admin: 08/22/19 12:07 Dose: 40 mg Hydroxychloroquine Sulfate (Plaquenil -) 200 mg PO DAILY [facility] Last Admin: 08/22/19 12:04 Dose: 200 mg Meropenem 1 gm/ Dextrose 100 mls @ 200 mls/hr IVPB Q12H [facility] Last Admin: 08/22/19 12:04 Dose: 200 mls/hr Insulin Aspart (Novolog Vial Sliding Scale -) 1 vial SQ ACHS [facility]; Protocol Last Admin: 08/22/19 12:02 Dose: 2 units Isosorbide Mononitrate (Imdur -) 30 mg PO DAILY [facility] Last Admin: 08/22/19 12:06 Dose: 30 mg Latanoprost (Xalatan 0.005% Eye Drops -) 1 drop OU HS [facility] Last Admin: 08/21/19 21:38 Dose: 1 drop Miconazole Nitrate (Miconazole 3) 200 mg PV HS [facility] Stop: 08/23/19 22:01 Last Admin: 08/21/19 21:36 Dose: 200 mg Ondansetron HCl (Zofran Injection) 4 mg IVPUSH Q6H PRN PRN Reason: NAUSEA Pantoprazole Sodium (Protonix -) 40 mg PO DAILY [facility] Last Admin: 08/22/19 12:07 Dose: 40 mg Rosuvastatin Calcium (Crestor -) 5 mg PO HS [facility] Last Admin: 08/21/19 21:37 Dose: 5 mg Timolol Maleate (Timoptic 0.5%) 1 drop OU BID [facility] Last Admin: 08/22/19 12:09 Dose: 1 drop Valsartan (Diovan -) 80 mg PO BID [facility] Last Admin: 08/22/19 12:04 Dose: 80 mg - Objective Vital Signs: Vital Signs Temperature 98.2 F 08/22/19 10:00 Pulse Rate 60 08/22/19 10:00 Respiratory Rate 18 08/22/19 10:00 Blood Pressure 186/75 H 08/22/19 10:00 O2 Sat by Pulse Oximetry (%) 99 08/21/19 21:00 Constitutional: Yes: No Distress Cardiovascular: Yes: Regular Rate and Rhythm Respiratory: Yes: CTA Bilaterally Gastrointestinal: Yes: Soft Edema: No Neurological: Yes: Alert ...Motor Strength: WNL Labs: CBC, BMP 08/22/19 06:30 08/22/19 06:30 INR, PTT INR 1.78 (0.83-1.09) H 08/14/19 21:32 Assessment/Plan Assessment/Plan echo in office 05/2019 tds, borderline conc LVH, overall LV function grossly borderline to mildly reduced, septal wall motion c/w V pacing, LA mildly dilated , mild to mod AR, mild MR, mild TR EKG: AP, LBBB simlar to prior abdominal pain - surgery evaluated - no acute indication for surgery - GI, ID following, on abx -UTI afib s/p PPM - eliquis resumed s/p PICC - outpatient ppm monitoring HTN - cont current meds, slightly elevated today/ overall trend ok- close outpatient f/u w/ PMD CAD - remote PCI, cont statin - plavix resumed AAA s/p EVAR - cont bb, bp control - vascular eval chronic diastolic HF - appears euvolemic, cont current cardiac meds
[2019-08-22] MEDS: APIXABAN 5 MG TABLET PO SCH (13:44)
[2019-08-22] MEDS: CLOPIDOGREL BISULFATE 75 MG TABLET (FP) PO SCH (13:44)
[2019-08-22] MEDS ORDERED: PT OWN MED DRAWER 7, Y5N ONE (14:17)
== END 2019-08-22 14:59 | disposition home health service (06) | DRG 872 ==
LOC: JER 20:13 → JERBED 08-15 01:06 → J8W 08-15 16:08
PROVIDERS: ADMIT Internal Medicine; ATTEND Internal Medicine
DX: R78.81 Bacteremia (principal); N39.0 Urinary tract infection, site not specified; I50.32 Chronic diastolic (congestive) heart failure; G81.91 Hemiplegia, unspecified affecting right dominant side; R41.82 Altered mental status, unspecified; E78.00 Pure hypercholesterolemia, unspecified; K21.9 Gastro-esophageal reflux disease without esophagitis; K59.09 Other constipation; I71.4 Abdominal aortic aneurysm, without rupture; I25.10 Atherosclerotic heart disease of native coronary artery without angina pectoris; I48.0 Paroxysmal atrial fibrillation; R94.5 Abnormal results of liver function studies; I70.1 Atherosclerosis of renal artery; I44.7 Left bundle-branch block, unspecified; E66.9 Obesity, unspecified; R50.9 Fever, unspecified; I11.0 Hypertensive heart disease with heart failure; E87.6 Hypokalemia; K81.9 Cholecystitis, unspecified; R10.9 Unspecified abdominal pain; M32.9 Systemic lupus erythematosus, unspecified; I08.3 Combined rheumatic disorders of mitral, aortic and tricuspid valves; Z86.73 Personal history of transient ischemic attack (TIA), and cerebral infarction without residual deficits; Z95.0 Presence of cardiac pacemaker; Z88.0 Allergy status to penicillin; Z86.718 Personal history of other venous thrombosis and embolism; Z68.30 Body mass index [BMI] 30.0-30.9, adult
CPT/HCPCS: 36415; 36558; 70450-TC; 71045-TC-FY; 71250-TC; 74176-TC; 76705-TC; 77001-TC-FY; 78226-TC; 80048; 80053; 81003; 82803; 82962; 83605; 83735; 84484; 85025; 85027; 85610; 85730; 87040; 87081; 87086; 87186; 93005; 93010; 97116-GP; 97162-GP; 99284-25; A9537; C1751; J0131; J0735; J1644; J7030

== ENCOUNTER → 2019-09-01 | Day surgery (SDC) | payer OTHER | END | disposition home or self-care (01) | LOC: JRADIR 10:02 | PROVIDERS: ATTEND Internal Medicine Infectious Disease | PROC: 02PY03Z Removal of Infusion Device from Great Vessel, Open Approach (ICD-10-PCS; principal; 2019-09-01) | DX: Z45.2 Encounter for adjustment and management of vascular access device (principal) | CPT/HCPCS: 36589 ==

== ENCOUNTER 2020-04-26 01:02 | Inpatient (IN) | payer OTHER ==
[2020-04-26] MEDS ORDERED: NITROGLYCERIN 50MG/D5W 250ML 50 MG/250 ML ML IVPB SCH (01:15)
--- NOTE | 2020-04-26 01:16 | PDOC ---
History of Present Illness - General Chief Complaint: Shortness of Breath Stated Complaint: DIFF BREATHING - History of Present Illness Initial Comments: 04/26/20 01:26 74F with extensive medical history including PAF (on Lovenox) s/p PPM, LLE DVT, CVA with residual R sided weakness, HTN, HLD, IBS, GERD, DM, renal artery stenosis, ischemic colitis, AAA s/p repair at [facility], Lupus, pericarditis who presents with shortness of breath and respiratory distress just prior to arrival. The patient's family reports that she was short of breath and given a duoneb but her symtpoms worsened. When EMS arrived the patient was satting in the 70s on RA. She was given 3 nitros en route and placed on CPAP. Upon arrival the patient was tachypneic to the 30s and satting above 95 on CPAP ROS - limited 2/2 resp distress CARDIOVASCULAR: + chest pain or shortness of breath PE GENERAL: Awake, alert, and fully oriented, in no acute distress HEAD: No signs of trauma, normocephalic, atraumatic EYES: EOMI, sclera anicteric, conjunctiva clear ENT: oropharynx clear without exudates. Moist mucosa NECK: Normal ROM, supple LUNGS: No distress, speaks full sentences, +crackles anteriorly HEART: Regular rate and rhythm, normal S1 and S2, no murmurs, rubs or gallops, peripheral pulses normal and equal bilaterally. ABDOMEN: Soft, nontender. No guarding, no rebound. No masses EXTREMITIES : Normal inspection, Normal range of motion, no edema. No clubbing or cyanosis. NEUROLOGICAL: Cranial nerves II through XII grossly intact. Normal speech, no focal sensorimotor deficits SKIN: Warm, Dry, normal turgor, no rashes or lesions noted Assessment and Plan 74F with extensive medical history including PAF (on Lovenox) s/p PPM, LLE DVT, CVA with residual R sided weakness, HTN, HLD, IBS, GERD, DM, renal artery stenosis, ischemic colitis, AAA s/p repair at [facility], Lupus, pericarditis who presents with shortness of breath and respiratory distress just prior to arrival. Consider COPD vs CHF, r/o ACS Pt with likely flash pulmonary edema nitro gtt started with improvement of symptoms and HTN nitro gtt stopped labs with elevated BNP negative trop lasix 40 dosed CXR: cephalizations ekg: nsr @ 69bpm, Discussed with Dr. Goddard, however reports that family prefers hospitalist Will admit to hospitalist Adri Gaviria, PGY2 Emergency Medicine 04/26/20 02:51 Past History - Medical History Allergies/Adverse Reactions: Allergies Allergy/AdvReac Type Severity Reaction Status Date / Time aspirin Allergy Severe Verified 04/26/20 01:08 Penicillins Allergy Severe Verified 04/26/20 01:08 diclofenac Allergy Verified 04/26/20 01:08 shellfish derived Allergy Verified 04/26/20 01:08 lactose AdvReac Verified 04/26/20 01:08 peanut Allergy Unknown Rash Uncoded 04/26/20 01:08 iv contrast Allergy Uncoded 04/26/20 01:08 Home Medications: Ambulatory Orders Carvedilol [Coreg -] 25 mg PO BID 11/09/18 Clopidogrel Bisulfate [Plavix] 75 mg PO DAILY 11/09/18 Colchicine [Colcrys] 0.6 mg PO BID 11/09/18 Diltiazem HCl [Diltiazem 24Hr Cd] 240 mg PO DAILY 11/09/18 Donepezil HCl [Aricept] 5 mg PO DAILY 11/09/18 Dorzolamide HCl [Trusopt 2% -] 1 drop OU BID 11/09/18 Ferrous Sulfate 325 mg PO DAILY 11/09/18 Furosemide [Lasix -] 40 mg PO DAILY 11/09/18 Hydroxychloroquine Sulfate [Plaquenil] 200 mg PO DAILY 11/09/18 Latanoprost 1 drop OU HS 11/09/18 Linagliptin/Metformin HCl [Jentadueto 2.5 mg-500 mg Tab] 1 each PO BID 11/09/18 Multivitamin [Multiple Vitamins] 1 each PO DAILY 11/09/18 Ondansetron [Zofran -] 4 mg PO DAILY 11/09/18 Pantoprazole Sodium 40 mg PO DAILY 11/09/18 Rosuvastatin [Crestor -] 5 mg PO HS 11/09/18 Timolol [Betimol] 1 drop OU BID 11/09/18 Ubidecarenone [Co Q-10] 0 mg PO DAILY 11/09/18 Calcium (Oyster Shell) [Os-Gino 500MG -] 500 mg PO DAILY #60 tablet 11/21/18 Ergocalciferol [Vitamin D2] 50,000 unit PO Q7D@1000 #30 capsule 11/21/18 Isosorbide Mononitrate [Imdur -] 30 mg PO DAILY #60 tab.sr.24h 11/21/18 Valsartan [Diovan] 80 mg PO BID #60 tablet 11/21/18 Acetaminophen [Tylenol -] 500 mg PO Q6H 7 Days #25 tablet NS 02/23/20 Acetaminophen [Tylenol -] 500 mg PO Q8H #100 tablet 02/23/20 Lidocaine 5% Patch [Lidoderm Patch -] 1 patch TP DAILY #7 patch 02/23/20 Lidocaine 5% Patch [Lidoderm Patch -] 1 patch TP DAILY 7 Days #7 patch 02/23/20 Apixaban [Eliquis -] 5 mg PO BID 04/26/20 Anemia: No Asthma: No Cardiac Disorders: Yes (PACEMAKER, AAA 5CM, AFIB, PERICARDITIS, PERICARDIAL EFFUSION) CVA: Yes (RIGHT ARM AND LEG WEAKNESS RESIDUAL) COPD: No CHF: Yes DVT: No Diabetes: Yes 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) GI Disorders: Yes (constipation, GERD,IBS) HTN: Yes Hypercholesterolemia: Yes Thyroid Disease: No - Surgical History Cardiac Surgery: Yes (PACEMAKER (2010) ; cath 09/24, AAA repair) - Immunization History Immunization Up to Date: Yes - Psycho-Social/Smoking History Smoking History: Never smoked Have you smoked in the past 12 months: No Number of Cigarettes Smoked Daily: 5 If you are a former smoker, when did you quit?: 1993 Information on smoking cessation initiated: No - Substance Abuse Hx (Audit-C & DAST Scrn) How often the patient has a drink containing alcohol: Never Score: In Men: 4 or > Positive; In Women: 3 or > Positive: 0 Screen Result (Pos requires Nsg. Audit-10AR): Negative In the last yr the pt used illegal drug/Rx for NonMed reason: No Score: Yes response is considered Positive: 0 Screen Result (Positive result requires Nsg. DAST-10): Negative *Physical Exam - Vital Signs Last Vital Signs Temp Pulse Resp BP Pulse Ox 97.3 F L 75 30 H 200/94 H 98 04/26/20 01:09 04/26/20 01:09 04/26/20 01:09 04/26/20 01:04/26/20 01:14 ED Treatment Course - LABORATORY CBC & Chemistry Diagram: 04/26/20 01:14 04/26/20 12:57 Discharge - Discharge Information Problems reviewed: Yes Clinical Impression/Diagnosis: CHF (congestive heart failure) - Follow up/Referral - Patient Discharge Instructions - Post Discharge Activity
[2020-04-26 01:43] LABS: BASO % 0.4 % (0-2.0); EOS % 2.2 % (0-4.5); HEMATOCRIT 36.3 % (32.4-45.2); HEMOGLOBIN 11.6 GM/dL (10.7-15.3); LYMPH % 30.2 % (8-40); MCH 29.7 pg (25.7-33.7); MEAN CELL VOLUME 92.8 fl (80-96); MEAN PLT VOLUME 9.1 fl (7.5-11.1); NEUT % 59.2 % (42.8-82.8); PLATELET COUNT 240 K/MM3 (134-434); RBC 3.91 M/mm3 (3.60-5.2); RDW 14.8 % (11.6-15.6); WHITE BLOOD COUNT 6.3 K/mm3 (4.0-10.0)
[2020-04-26 01:44] LABS: INR 1.67 (0.83-1.09); PROTHROMBIN TIME (PATIENT) 19.8 SEC (9.7-13.0)
[2020-04-26 02:02] LABS: ALBUMIN 3.5 g/dl (3.4-5.0); ALK PHOS 105 U/L (45-117); ANION GAP 6 MMOL/L (8-16); BILIRUBIN,TOTAL 0.3 mg/dL (0.2-1); BLOOD UREA NITROGEN 14.6 mg/dL (7-18); CALCIUM 9.1 mg/dL (8.5-10.1); CHLORIDE 104 mmol/L (98-107); CO2 29 mmol/L (21-32); CREATININE 1.4 mg/dL (0.55-1.3); GLUCOSE,RANDOM 182 mg/dL (74-106); N-TERMINAL BNP 3812.1 pg/ml (5-450); POTASSIUM 4.4 mmol/L (3.5-5.1); SGOT/AST 21 U/L (15-37); SGPT/ALT 16 U/L (13-61); SODIUM 139 mmol/L (136-145); TOT PROT 7.7 g/dl (6.4-8.2)
[2020-04-26] MEDS ORDERED: FUROSEMIDE 40 MG/4 ML INJECTABLE VIAL IVPUSH ONE ×2 (02:04→04:25)
[2020-04-26] MEDS ORDERED: FUROSEMIDE 40 MG/4 ML INJECTABLE VIAL ONE ×2 (02:16→04:38)
--- NOTE | 2020-04-26 02:54 | PN ---
Teaching Attending Note Name of Resident: Charlette Stovall ATTENDING PHYSICIAN STATEMENT I saw and evaluated the patient. I reviewed the resident's note and discussed the case with the resident. I agree with the resident's findings and plan as documented. SUBJECTIVE: Patient is a 74 year old woman with a PMH of HFpEF, Penicillin allergy, Paro xysmal Afib (on Eliquis), Chronic Lumbar vertebral compression fractures (L2, L5), Cardiac catheterisation (09/2017), Pacemaker, LLE DVT, CVA with residual R sided weakness, HTN, HLD, IBS, GERD, NIDDM, Renal artery stenosis, Right nephrectomy, Ischemic colitis, AAA repair at [facility] and Lupus pericarditis who presents with shortness of breath and respiratory distress just prior to arrival. The patient's family reports that she was short of breath and given Duoneb but her symtpoms worsened. When EMS arrived the patient was saturatiing in the 70s on room air. She was given 3 nitros en route and placed on CPAP. Upon arrival in the ER the patient was tachypneic to the 30s with O2 saturation above 95 on CPAP. No reported fever, chills, nausea, vomiting, chest pain, abdominal pain, abdominal pain, dysuria, frequency or diarrhea. Denies alcohol, tobacco or illicit drug use. No sick contacts or recent travels. Family history is unremarkable. OBJECTIVE: Alert. on BiPAP Vital Signs Period Temp Pulse Resp BP Sys/Nowak Pulse Ox Last 24 Hr 97.3 F 63-75 22-30 141-200/69-94 98-100 HEENT: No Jaundice, eye redness or discharge, PERRLA, EOMI. Normocephalic, atraumatic. External ears are normal and hearing is grossly intact. No nasal discharge. Neck: Supple, nontender. No palpable adenopathy or thyromegaly. No JVD Chest: Good effort. Diminished breath sounds. Bibasilar crackles. Clear to percussion. Heart: Regular. No S3, rub or murmur Abdomen: Not distended, soft, nontender and no HSM. No rebound or guarding. Normal bowel sounds. Ext: Peripheral pulses intact. No leg edema. Skin: Warm and dry. No petechiae, rash or ecchymosis. Neuro: Alert. Oriented x3. CN 2-12 grossly intact. Sensation grossly intact in all four extremities and DTR are symmetric. Psych: Appropriate mood and affect. Good insight. Current Medications Generic Name Dose Route Start Last Admin Trade Name Raulq PRN Reason Stop Dose Admin Nitroglycerin/Dextrose 50 mg in 250 mls @ 24 mls/hr 04/26/20 01:15 04/26/20 02:05 Nitroglycerin 50mg/D5w 250ml IVPB 0 mcg/min TITR JONAS 0 mls/hr Titration 80 MCG/MIN Home Medications Medication Instructions Recorded Carvedilol [Coreg -] 25 mg PO BID 11/09/18 Clopidogrel Bisulfate [Plavix] 75 mg PO DAILY 11/09/18 Colchicine [Colcrys] 0.6 mg PO BID 11/09/18 Diltiazem HCl [Diltiazem 24Hr Cd] 240 mg PO DAILY 11/09/18 Donepezil HCl [Aricept] 5 mg PO DAILY 11/09/18 Dorzolamide HCl [Trusopt 2% -] 1 drop OU BID 11/09/18 Ferrous Sulfate 325 mg PO DAILY 11/09/18 Furosemide [Lasix -] 40 mg PO DAILY 11/09/18 Hydroxychloroquine Sulfate 200 mg PO DAILY 11/09/18 [Plaquenil] Latanoprost 1 drop OU HS 11/09/18 Linagliptin/Metformin HCl 1 each PO BID 11/09/18 [Jentadueto 2.5 mg-500 mg Tab] Multivitamin [Multiple Vitamins] 1 each PO DAILY 11/09/18 Ondansetron [Zofran -] 4 mg PO DAILY 11/09/18 Pantoprazole Sodium 40 mg PO DAILY 11/09/18 Rosuvastatin [Crestor -] 5 mg PO HS 11/09/18 Timolol [Betimol] 1 drop OU BID 11/09/18 Ubidecarenone [Co Q-10] 0 mg PO DAILY 11/09/18 Apixaban [Eliquis -] 5 mg PO BID #60 tablet 11/21/18 Calcium (Oyster Shell) [Os-Gino 500 mg PO DAILY #60 tablet 11/21/18 500MG -] Ergocalciferol [Vitamin D2] 50,000 unit PO Q7D@1000 #30 capsule 11/21/18 Isosorbide Mononitrate [Imdur -] 30 mg PO DAILY #60 tab.sr.24h 11/21/18 Valsartan [Diovan] 80 mg PO BID #60 tablet 11/21/18 Acetaminophen [Tylenol -] 500 mg PO Q6H 7 Days #25 tablet NS 02/23/20 Acetaminophen [Tylenol -] 500 mg PO Q8H #100 tablet 02/23/20 Lidocaine 5% Patch [Lidoderm Patch 1 patch TP DAILY #7 patch 02/23/20 -] Lidocaine 5% Patch [Lidoderm Patch 1 patch TP DAILY 7 Days #7 patch 02/23/20 -] Abnormal Lab Results 04/26/20 04/26/20 01:14 01:14 PT with INR 19.80 H INR 1.67 H PTT (Actin FS) 38.0 H Anion Gap 6 L Creatinine 1.4 H Random Glucose 182 H B-Natriuretic Peptide 3812.1 H ASSESSMENT AND PLAN: 1. CHF exacerbation/Acute hypoxic respiratory failure - No obvious precipitating factor, though uncontrolled hypertension may play a role. CXR shows cardiomegaly, right pacemaker and pulmonary vascular congestion. Placed on BiPAP and started on Nitroglycerin drip and IV Lasix in the ER. Will get urinalysis. EKG shows NSR at 69/minute and QTc 516, nonspecific interventricular block with no significant ST changes. Initial troponin is negative. Will avoid drugs that prolong QTc. ECHO from 01/03/2018 showed normal LV size and function with LVEF of 55-60 percent. Will admit to telemetry, treat with IV lasix to achieve diuresis, monitor renal function, monitor and replete electrolytes, get daily standing weight, restrict dietary salt intake, get ECHO, restart home CHF drug regimen and consult cardiology. Viral testing for COVID-19 ordered and patient placed on airborne, droplet and contact isolation. Will continue comprehensive care for all of patients comorbid conditions. 2. DM For now, we will hold the home diabetes drugs and implement sliding scale insulin regimen. Provide comprehensive diabetes care with patient teaching and counseling about the importance of adherence to prescribed diabetes regimen, euglycemia, eye care and foot care. 3. Polypharmacy - Will liaise with patient's PCP to discontinue medications that are not absolutely essential. 4. Obesity Counseled on the risks associated with obesity. Will provide patient all the necessary assistance, counseling and positive reinforcement to facilitate weight loss. Consult tour sales representative. 5. Hypertensive urgency Started on IV Nitroglycerin drip. Will restart suitable outpatient antihypertensive drugs when clinically appropriate. Subsequently, will revise regimen to ensure [id number] excellent BP control. Patient counseled on the injurious effects of uncontrolled hypertension. Nonpharmacologic measures to control hypertension like weight loss, salt restriction and exercise stressed. Importance of adherence to treatment regimen and attainment of normotension emphasized. 6. DVT prophylaxis - On Eliquis for Paroxysmal Afib 7. Advance directives - Full code
[2020-04-26 03:28] LABS: PH,URINE 6.5 (5.0-8.0); URINE APPEARANCE CLEAR; URINE BILIRUBIN NEGATIVE (NEGATIVE); URINE COLOR YELLOW; URINE GLUCOSE (UA) NEGATIVE (NEGATIVE); URINE KETONE NEGATIVE (NEGATIVE); URINE LEUK ESTERASE NEGATIVE (NEGATIVE); URINE NITRITE NEGATIVE (NEGATIVE); URINE PROTEIN TRACE (NEGATIVE); URINE UROBILINOGEN 0.2 mg/dL (0.2-1.0)
--- NOTE | 2020-04-26 03:30 | HP ---
CHIEF COMPLAINT: Shortness of breath PCP: Sony Johnson cards: [place] HISTORY OF PRESENT ILLNESS: Pt is a 74 y/o female with a-fib s/p PPM, DVT, CVA, HTN, HLD, GERD, DM, renal artery stenosis, AAA repair, right nephrectomy, left renal stents, and lupus who presents with 10 days shortness of breath. Pt has been needing 1-2 duonebs daily and increased head angle to sleep. She saw PCP 4 days ago and was told to take extra lasix. She continued to have increased SOB and lower rib pain. The last day she has been fatigued and not wanting to get out of bed. EMS was called for sudden worsening of SOB. She was found to be satting in 70s. Daughter noted since February she has had medication changes due to fluctuating blood pressures. Last echo noted had normal EF. ER course was notable for: (1) Cr 1.4 (2) CXR cardiomegaly, increased vascular congestion, left blunting costophrenic angle (3) nitro drip for systolic 200 which was d/c'ed PAST MEDICAL HISTORY: a-fib s/p PPM, DVT, CVA, HTN, HLD, GERD, DM, renal artery stenosis, AAA repair, and lupus PAST SURGICAL HISTORY: right nephrectomy AAA repair Social History: lives alone with home attendants former smoker quit 20 years ago no ETOH Allergies aspirin Allergy (Severe, Verified 04/26/20 01:08) facial swelling Penicillins Allergy (Severe, Verified 04/26/20 01:08) facial swelling diclofenac Allergy (Verified 04/26/20 01:08) facial swelling shellfish derived Allergy (Verified 04/26/20 01:08) facial swelling lactose Adverse Reaction (Verified 04/26/20 01:08) peanut Allergy (Unknown, Uncoded 04/26/20 01:08) Rash iv contrast Allergy (Uncoded 04/26/20 01:08) facial swelling HOME MEDICATIONS: Home Medications Medication Instructions Recorded Carvedilol [Coreg -] 25 mg PO BID 11/09/18 Clopidogrel Bisulfate [Plavix] 75 mg PO DAILY 11/09/18 Colchicine [Colcrys] 0.6 mg PO BID 11/09/18 Diltiazem HCl [Diltiazem 24Hr Cd] 240 mg PO DAILY 11/09/18 Donepezil HCl [Aricept] 5 mg PO DAILY 11/09/18 Dorzolamide HCl [Trusopt 2% -] 1 drop OU BID 11/09/18 Ferrous Sulfate 325 mg PO DAILY 11/09/18 Furosemide [Lasix -] 40 mg PO DAILY 11/09/18 Hydroxychloroquine Sulfate 200 mg PO DAILY 11/09/18 [Plaquenil] Latanoprost 1 drop OU HS 11/09/18 Linagliptin/Metformin HCl 1 each PO BID 11/09/18 [Jentadueto 2.5 mg-500 mg Tab] Multivitamin [Multiple Vitamins] 1 each PO DAILY 11/09/18 Ondansetron [Zofran -] 4 mg PO DAILY 11/09/18 Pantoprazole Sodium 40 mg PO DAILY 11/09/18 Rosuvastatin [Crestor -] 5 mg PO HS 11/09/18 Timolol [Betimol] 1 drop OU BID 11/09/18 Ubidecarenone [Co Q-10] 0 mg PO DAILY 11/09/18 Apixaban [Eliquis -] 5 mg PO BID #60 tablet 11/21/18 Calcium (Oyster Shell) [Os-Gino 500 mg PO DAILY #60 tablet 11/21/18 500MG -] Ergocalciferol [Vitamin D2] 50,000 unit PO Q7D@1000 #30 capsule 11/21/18 Isosorbide Mononitrate [Imdur -] 30 mg PO DAILY #60 tab.sr.24h 11/21/18 Valsartan [Diovan] 80 mg PO BID #60 tablet 11/21/18 Acetaminophen [Tylenol -] 500 mg PO Q6H 7 Days #25 tablet NS 02/23/20 Acetaminophen [Tylenol -] 500 mg PO Q8H #100 tablet 02/23/20 Lidocaine 5% Patch [Lidoderm Patch 1 patch TP DAILY #7 patch 02/23/20 -] Lidocaine 5% Patch [Lidoderm Patch 1 patch TP DAILY 7 Days #7 patch 02/23/20 -] REVIEW OF SYSTEMS see HPI PHYSICAL EXAMINATION Vital Signs - 24 hr 04/26/20 04/26/20 04/26/20 01:09 01:10 01:14 Temperature 97.3 F L Pulse Rate 75 66 Pulse Rate [ 66 Right Radial] Respiratory 30 H 22 H Rate Blood Pressure 200/94 H Blood Pressure 165/69 [Right Arm] O2 Sat by Pulse 98 100 98 Oximetry (%) 04/26/20 04/26/20 02:03 02:23 Temperature Pulse Rate Pulse Rate [ 63 64 Right Radial] Respiratory 23 H 25 H Rate Blood Pressure Blood Pressure 141/78 171/71 H [Right Arm] O2 Sat by Pulse 100 100 Oximetry (%) GENERAL: Awake, alert, and fully oriented, in no acute distress. On CPAP. HEAD: Normal with no signs of trauma. EYES: Pupils equal, round and reactive to light, extraocular movements intact, conjunctiva clear. EARS, NOSE, THROAT: Ears normal, nares patent, moist mucous membranes. NECK: Normal range of motion, supple without lymphadenopathy, JVD, or masses. LUNGS: Faint crackles left upper lobe. HEART: Regular rate and rhythm, no murmur. ABDOMEN: Soft, tender b/l just below ribs, not distended, normoactive bowel sounds. MUSCULOSKELETAL: Normal range of motion at all joints. UPPER EXTREMITIES: Warm, well-perfused. No peripheral edema. LOWER EXTREMITIES: Warm, well-perfused. No peripheral edema. Ecchymosis right lateral ankle. NEUROLOGICAL: Cranial nerves II-XII intact. Normal speech. PSYCHIATRIC: Cooperative. Good eye contact. Appropriate mood and affect. SKIN: Warm, dry, normal turgor. Laboratory Results - last 24 hr 04/26/20 04/26/20 04/26/20 01:14 01:14 01:14 WBC 6.3 RBC 3.91 Hgb 11.6 Hct 36.3 MCV 92.8 MCH 29.7 MCHC 32.0 RDW 14.8 Plt Count 240 MPV 9.1 Absolute Neuts (auto) 3.8 Neutrophils % 59.2 D Lymphocytes % 30.2 D Monocytes % 8.0 Eosinophils % 2.2 D Basophils % 0.4 Nucleated RBC % 0 PT with INR 19.80 H INR 1.67 H PTT (Actin FS) 38.0 H Sodium 139 Potassium 4.4 Chloride 104 Carbon Dioxide 29 Anion Gap 6 L BUN 14.6 Creatinine 1.4 H Est GFR (CKD-EPI)AfAm 42.49 Est GFR (CKD-EPI)NonAf 36.66 Random Glucose 182 H Calcium 9.1 Total Bilirubin 0.3 AST 21 ALT 16 Alkaline Phosphatase 105 Creatine Kinase 88 Troponin I < 0.02 B-Natriuretic Peptide 3812.1 H Total Protein 7.7 Albumin 3.5 Urine Color Urine Appearance Urine pH Ur Specific Redkey Urine Protein Urine Glucose (UA) Urine Ketones Urine Blood Urine Nitrite Urine Bilirubin Urine Urobilinogen Ur Leukocyte Esterase 04/26/20 03:04 WBC RBC Hgb Hct MCV MCH MCHC RDW Plt Count MPV Absolute Neuts (auto) Neutrophils % Lymphocytes % Monocytes % Eosinophils % Basophils % Nucleated RBC % PT with INR INR PTT (Actin FS) Sodium Potassium Chloride Carbon Dioxide Anion Gap BUN Creatinine Est GFR (CKD-EPI)AfAm Est GFR (CKD-EPI)NonAf Random Glucose Calcium Total Bilirubin AST ALT Alkaline Phosphatase Creatine Kinase Troponin I B-Natriuretic Peptide Total Protein Albumin Urine Color Yellow Urine Appearance Clear Urine pH 6.5 Ur Specific Redkey 1.015 Urine Protein Trace Urine Glucose (UA) Negative Urine Ketones Negative Urine Blood Negative Urine Nitrite Negative Urine Bilirubin Negative Urine Urobilinogen 0.2 Ur Leukocyte Esterase Negative ASSESSMENT/PLAN: Pt is a 74 y/o female with a-fib s/p PPM, DVT, CVA, HTN, HLD, GERD, DM, renal artery stenosis, AAA repair, right nephrectomy, left renal stents, and lupus who presents with 10 days increasing shortness of breath. Pt had increased dose of lasix the last several days. Overnight she became hypoxic to 70s when EMS arrived at her home. #acute hypoxic respiratory failure 2/2 likely CHF -pulmonary edema and crackles -given Lasix 40mg x2 -monitor I/O with patino -continue CPAP -consider echo if not recently done -consulted Dr. Storey #VILLA -Cr 1.4 with baseline ~1 -continue Lasix for pulmonary edema with BMP Q6H to monitor Cr and K #CAD -Plavix #DM -SSI -BGM DVT Ppx Eliquis FEN PO fluids monitor Cr, K sodium/diabetic diet dispo med/surg Visit type - Emergency Visit Emergency Visit: Yes ED Registration Date: 04/26/20 Care time: The patient presented to the Emergency Department on the above date and was hospitalized for further evaluation of their emergent condition. - New Patient This patient is new to me today: Yes Date on this admission: 04/26/20 - Critical Care Critical Care patient: No ATTENDING PHYSICIAN STATEMENT I saw and evaluated the patient. I reviewed the resident's note and discussed the case with the resident. I agree with the resident's findings and plan as documented. SUBJECTIVE: OBJECTIVE: ASSESSMENT AND PLAN:
--- NOTE | 2020-04-26 04:45 | PDOC ---
Attending Attestation - Resident Resident Name: Adri Gaviria - ED Attending Attestation I have performed the following: I have examined & evaluated the patient, The case was reviewed & discussed with the resident, I agree w/resident's findings & plan, Exceptions are as noted - HPI HPI: 04/26/20 04:38 See resident HPI - Physicial Exam PE: 04/26/20 04:38 Agree with documented exam - Medical Decision Making 04/26/20 04:38 BIBEMS c/o acute onset of respiratory distress, EMS BP was 250 systolic, crackles in all lung franz, .4mg SL NTG administered x3 and CPAP placed pre- hospital likely acute pulmonary edema consider 2/2 poorly controlled htn bipap, ntg gtt f/u cxr, labs re-eval will need admission final dispo per clinical course will down titrate ntg drip as appropriate Discharge - Discharge Information Problems reviewed: Yes Clinical Impression/Diagnosis: CHF (congestive heart failure) Condition: Stable Disposition: TRANSFER ACUTE CARE/OTHER HOSP - Follow up/Referral - Patient Discharge Instructions - Post Discharge Activity
--- NOTE | 2020-04-26 06:26 | CON.CARD ---
Consult Consult Specialty:: Cardiology Referred by:: Claire Kenyon Reason for Consultation:: SOB - History of Present Illness Chief Complaint: SOB x 3 days, progressive History of Present Illness: 74F h/o afib s/p PPM (medtronic), CVA, Equivocal Lupus Anticoagulant AB (followed by Rheum and Heme at [facility]), DVT, HTN, renal artery stenosis, CKD, hx pericardial effusion, chronic diastolic HF, AAA s/p EVAR, dementia admitted for worsening SOB over last 3 days culminating in severe SOB yesterday with diaphoresis and nausea. Over last 2 months, her BP has been elevated and difficult to control requiring change from Coreg to Labetalol with increasing dose requirements and addition of Hydralazine. In light of this, she was referred back to vascular at [facility] and she was found to have progressive renal artery stenosis and was planned for angioplasty. Her BP was markedly elevated on admission and CXR showed increased PVC. Markedly elevated BNP. she has clinically responded to IV lasix (40mg IV x 2 doses overnight) and is now feeling improved. 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 Cardio/Vascular: Yes: AFIB, HTN, Hyperlipdemia, Other (pericarditis Pericardial effusion) Gastrointestinal: Yes: GERD Renal/: Yes: Other (Renal artery stenosis) Endocrine: Yes: Diabetes Mellitus - Past Surgical History Past Surgical History: Yes: , Permanent Pacemaker - Alcohol/Substance Use Hx Alcohol Use: No - Smoking History Smoking history: Never smoked Have you smoked in the past 12 months: No Aproximately how many cigarettes per day: 5 If you are a former smoker, when did you quit?: 1993 - Social History Usual Living Arrangement: Alf ADL: Family Assistance History of Recent Travel: No Home Medications - Allergies Allergies/Adverse Reactions: Allergies Allergy/AdvReac Type Severity Reaction Status Date / Time aspirin Allergy Severe Verified 04/26/20 01:08 Penicillins Allergy Severe Verified 04/26/20 01:08 diclofenac Allergy Verified 04/26/20 01:08 shellfish derived Allergy Verified 04/26/20 01:08 lactose AdvReac Verified 04/26/20 01:08 peanut Allergy Unknown Rash Uncoded 04/26/20 01:08 iv contrast Allergy Uncoded 04/26/20 01:08 - Home Medications Home Medications: Ambulatory Orders Carvedilol [Coreg -] 25 mg PO BID 11/09/18 Clopidogrel Bisulfate [Plavix] 75 mg PO DAILY 11/09/18 Colchicine [Colcrys] 0.6 mg PO BID 11/09/18 Diltiazem HCl [Diltiazem 24Hr Cd] 240 mg PO DAILY 11/09/18 Donepezil HCl [Aricept] 5 mg PO DAILY 11/09/18 Dorzolamide HCl [Trusopt 2% -] 1 drop OU BID 11/09/18 Ferrous Sulfate 325 mg PO DAILY 11/09/18 Furosemide [Lasix -] 40 mg PO DAILY 11/09/18 Hydroxychloroquine Sulfate [Plaquenil] 200 mg PO DAILY 11/09/18 Latanoprost 1 drop OU HS 11/09/18 Linagliptin/Metformin HCl [Jentadueto 2.5 mg-500 mg Tab] 1 each PO BID 11/09/18 Multivitamin [Multiple Vitamins] 1 each PO DAILY 11/09/18 Ondansetron [Zofran -] 4 mg PO DAILY 11/09/18 Pantoprazole Sodium 40 mg PO DAILY 11/09/18 Rosuvastatin [Crestor -] 5 mg PO HS 11/09/18 Timolol [Betimol] 1 drop OU BID 11/09/18 Ubidecarenone [Co Q-10] 0 mg PO DAILY 11/09/18 Calcium (Oyster Shell) [Os-Gino 500MG -] 500 mg PO DAILY #60 tablet 11/21/18 Ergocalciferol [Vitamin D2] 50,000 unit PO Q7D@1000 #30 capsule 11/21/18 Isosorbide Mononitrate [Imdur -] 30 mg PO DAILY #60 tab.sr.24h 11/21/18 Valsartan [Diovan] 80 mg PO BID #60 tablet 11/21/18 Acetaminophen [Tylenol -] 500 mg PO Q6H 7 Days #25 tablet NS 02/23/20 Acetaminophen [Tylenol -] 500 mg PO Q8H #100 tablet 02/23/20 Lidocaine 5% Patch [Lidoderm Patch -] 1 patch TP DAILY #7 patch 02/23/20 Lidocaine 5% Patch [Lidoderm Patch -] 1 patch TP DAILY 7 Days #7 patch 02/23/20 Apixaban [Eliquis -] 5 mg PO BID 06/19/20 Family Medical History Family History: Unremarkable Review of Systems Findings/Remarks: see HPI - Review of Systems Constitutional: reports: No Symptoms Eyes: reports: No Symptoms HENT: reports: No Symptoms Cardiovascular: reports: Shortness of Breath Respiratory: reports: SOB, SOB on Exertion Gastrointestinal: denies: No Symptoms, Abdominal Pain, Bloating, Constipation, Diarrhea, Dysphagia, Indigestion, Melena, Nausea, Rectal Bleeding, Vomiting, Vomiting Blood, Other Genitourinary: denies: No Symptoms, Burning, Discharge, Dysuria, Flank Pain, Frequency, Hematuria, Incontinence, Lesions, Menses, Pain, Testicular Mass, Testicular Pain, Testicular Swelling, Urgency, Vaginal Bleeding, Other Musculoskeletal: denies: No Symptoms, Back Pain, Crepitus, Decreased ROM, Extremity Pain, Joint Pain, Joint Swelling, Muscle Pain, Muscle Cramps, Muscle Weakness, Other Integumentary: denies: No Symptoms, Blister, Bruising, Change in Color, Eczema, Erythema, Incision, Lesions, Lump, Pallor, Pruritis, Rash, Wound, Other Neurological: denies: No Symptoms, Change in LOC, Change in Speech, Confusion, Dizziness, Headache, Incoordination, Numbness, Parasthesia, Pre-Existing Deficit, Seizure, Syncope, Tremors, Unsteady Gait, Weakness, Other Endocrine: denies: No Symptoms, Excessive Sweating, Flushing, Increased Hunger, Increased Thirst, Intolerance to Cold, Intolerance to Heat, Unexplained Weight Gain, Unexplained Weight Loss, Other Hematology/Lymphatic: denies: No Symptoms, Easily Bruised, Excessive Bleeding, Swollen Glands, Other - Risk Factors Known Risk Factors: Yes: Hypertension Vital Signs: Vital Signs Temperature 97.5 F L 04/26/20 04:45 Pulse Rate 63 04/26/20 04:45 Respiratory Rate 13 04/26/20 04:45 Blood Pressure 173/73 H 04/26/20 04:45 O2 Sat by Pulse Oximetry (%) 100 04/26/20 04:45 Constitutional: Yes: No Distress, Calm Eyes: Yes: Conjunctiva Clear, EOM Intact HENT: Yes: Atraumatic, Normocephalic Neck: Yes: Trachea Midline Respiratory: Yes: Other (rales at bases 1/3 up) Gastrointestinal: Yes: Soft (NT) JVD: Yes Heart Sounds: Yes: S1, S2 Edema: Yes Edema: LLE: 1+, RLE: 1+ Peripheral Pulses WNL: Yes Neurological: Yes: Alert, Oriented - Other Data Labs, Other Data: CBC, BMP 04/26/20 01:14 04/26/20 01:14 INR, PTT INR 1.67 (0.83-1.09) H 04/26/20 01:14 Troponin, BNP 04/26/20 04/26/20 01:14 05:20 Troponin I < 0.02 0.02 B-Natriuretic Peptide 3812.1 H Troponin, BNP 04/26/20 04/26/20 01:14 05:20 Troponin I < 0.02 0.02 B-Natriuretic Peptide 3812.1 H nsr, nonspecific IVCD, no acute changes Echo: Pending Imaging - Results Chest X-ray: Image Reviewed EKG: Image Reviewed Assessment/Plan IMP: Acute on chronic diastolic CHF Uncontrolled HTN Solitary kidney with progressive renal artery stenosis, possibly causing the HTN and CHF Hx of CVA CAD PAF s/p PPM Chronic HTN CKD Hypercoag state s/p DVT Remote hx of pericardial effusion REC: 1. Acute diastolic CHF: -Tele/ daily weights and BMP to follow renal Fx -Agree with IV Lasix -Supp O2 -Repeat echo -Cardiac enzymes neg, doubt ischemic etiology 2. Uncontrolled HTN: -Over last 3 months difficult to manage and she was switched from Coreg to Labet alol with increased dose requirement, most recently 250 BID -Admitted with SBP 200; d/c coreg and start Labetalol 300mg BID (has PPM so bradycardia not a concern). -Has not tolerated Amlodipine (edema); would not titrate ARB further due to YAQUELIN and CKD issues. -Has been on low dose hydralazine, but prefer to avoid if possible -Suspect uncontrolled HTN triggered CHF decompensation 3. YAQUELIN: progressive -Possibly driving HTN and CHF -Keep close eye on renal function as we diurese -Once euvolemic, will f/u with vascular at [facility] for planned renal artery stent 4. Hx CVA/AF/elevated [id number] -Vasc score: -Cont Eliquis 5. CAD: remote hx PCI -On single antiplatelet rx with Plavix; Crestor 6. PAF: s/p PPM -Routine office interrogations -Tele to assure AF is controlled -On labetalol, Cardizem for rate control -Eliquis 7. Chronic HTN: as above. 8. CKD: as above, close monitoring renal fx as we diurese with daily BMP 9. Hypercoag state: -s/p DVT -Followed by Heme and Rheum at [facility] and was approved for NOAC use 10. Pericardial effusion: remote hx, asx -for repeat echo
[2020-04-26 07:05] VITALS: BMI 30.5
[2020-04-26] MEDS: INSULIN SLIDING SCALE (NOVOLOG) 1 VIAL SQ SCH ×4 (08:12→22:08)
[2020-04-26] MEDS: FERROUS SO4 325 MG TABLET (FP) PO SCH (09:49)
[2020-04-26] MEDS: APIXABAN 5 MG TABLET PO SCH ×2 (09:50→22:07)
[2020-04-26] MEDS: CLOPIDOGREL BISULFATE 75 MG TABLET (FP) PO SCH (09:50)
[2020-04-26] MEDS: COLCHICINE 0.6 MG CAP PO SCH ×2 (09:50→22:12)
[2020-04-26] MEDS: MULTIVITAMINS (DAILY MVI) TABLET (FP) PO SCH (09:50)
[2020-04-26] MEDS: VALSARTAN 80 MG TABLET (UD) PO SCH ×2 (09:50→22:06)
[2020-04-26] MEDS: PANTOPRAZOLE 40 MG TABLET PO SCH (09:50)
[2020-04-26] MEDS: ISOSORBIDE MONONITRATE 30 MG TAB.SR.24H (FP) PO SCH (09:50)
[2020-04-26] MEDS: CALCIUM (OYSTER SHELL) 500 MG TABLET (FP) PO SCH (09:50)
[2020-04-26] MEDS: HYDROXYCHLOROQUINE SO4 200 MG TABLET (FP) PO SCH (09:51)
[2020-04-26] MEDS ORDERED: CARVEDILOL 25 MG TABLET (FP) PO SCH (10:00)
--- NOTE | 2020-04-26 10:21 | EKG ---
Test Reason : Blood Pressure : / mmHG Vent. Rate : 069 BPM Atrial Rate : 069 BPM P-R Int : 160 ms QRS Dur : 138 ms QT Int : 482 ms P-R-T Axes : 035 001 025 degrees QTc Int : 516 ms NORMAL SINUS RHYTHM NON-SPECIFIC INTRA-VENTRICULAR CONDUCTION BLOCK ABNORMAL ECG WHEN COMPARED WITH ECG OF 22-FEB-2020 23:37, QT HAS LENGTHENED Confirmed by INO BRAND MD ([id number]) on 04/26/2020 10:21:30 AM Referred By: Confirmed By:INO BRAND MD
[2020-04-26] MEDS: LABETALOL HCL 100 MG TABLET (FP) PO SCH ×2 (10:34→22:08)
[2020-04-26] MEDS: DORZOLAMIDE 2% HCL OPHTHALMIC SOLUTION 10 ML BOTTLE OU SCH ×2 (10:41→22:17)
--- NOTE | 2020-04-26 12:03 | HOSP ---
Subjective - Review of Symptoms Pulmonary: Yes: Dyspnea, Pleuritic Chest Pain Cardiovascular: Yes: Edema (to LE) Physical Examination Vital Signs: Vital Signs Temperature 97.0 F L 04/26/20 08:17 Pulse Rate 66 04/26/20 08:17 Respiratory Rate 18 04/26/20 09:00 Blood Pressure 163/63 04/26/20 08:17 O2 Sat by Pulse Oximetry (%) 98 04/26/20 11:40 Constitutional: Yes: Well Nourished, No Distress, Calm Eyes: Yes: WNL, Conjunctiva Clear, EOM Intact HENT: Yes: WNL, Atraumatic, Normocephalic Neck: Yes: WNL, Supple, Trachea Midline Cardiovascular: Yes: WNL, Regular Rate and Rhythm Respiratory: Yes: Regular, Diminished (at bases), On Nasal O2, Rales (BL 2/3) Gastrointestinal: Yes: Normal Bowel Sounds, Soft, Tenderness, Epigastrium ...Rectal Exam: Yes: Deferred Renal/: Yes: WNL Breast(s): Yes: WNL Musculoskeletal: Yes: WNL Extremities: Yes: WNL Edema: Yes Edema: LLE: 1+, RLE: 1+ Peripheral Pulses WNL: Yes Peripheral Pulses: Left Radial: 2+, Right Radial: 2+, Left Doralis Pedis: 2+, Right Dorsalis Pedis: 2+, Left Femoral: 2+, Right Femoral: 2+ Integumentary: Yes: WNL Neurological: Yes: WNL, Alert, Oriented ...Motor Strength: WNL Psychiatric: Yes: WNL, Alert, Oriented Labs: CBC, BMP 04/26/20 01:14 04/26/20 01:14 Hospitalist Encounter Recommendations/Interventions: Seen and examined in bed Full note to follow tomorrow Acute on chronic diastolic failure -lasix IV 40mg bid -TTE pending -elevate LE -daily weights Uncontrolled htn c/w labetolol as per cardiology CVA residual weakness -c/w eliquis -PT CAD -c/t asa plavix -appreciate cardiology consult CKD Cr 1.4 -avoid nephrotoxic agents daily cmp DVT -c/t eliquis -PT Dispo -maintain on tele -full code -dc planning to home
[2020-04-26] MEDS: FUROSEMIDE 40 MG/4 ML INJECTABLE VIAL IVPUSH SCH (13:45)
[2020-04-26 13:52] LABS: BLOOD UREA NITROGEN 15.1 mg/dL (7-18); CALCIUM 8.5 mg/dL (8.5-10.1); CREATININE 1.4 mg/dL (0.55-1.3); POTASSIUM 3.7 mmol/L (3.5-5.1)
[2020-04-26] MEDS ORDERED: ALBUTEROL SO4 HFA INHALER IH PRN (15:15)
--- NOTE | 2020-04-26 15:32 | ECHO ---
Name: BITA STEIN SUMITWILBER Exam:Adult Echocardiogram Study Date: 04/26/2020 02:37 PM Age: 74 yrs Reason For Study: CHF, Pericardial Effusion Height: 64 in Weight: 178 lb BSA: 1.9 m2 MMode/2D Measurements & Calculations RVDd: 3.3 cm Ao root diam: 3.1 cm IVSd: 1.0 cm LA dimension: 4.0 cm LVIDd: 5.1 cm LVIDs: 3.8 cm LVPWd: 1.1 cm EDV(Teich): 122.6 ml LVOT diam: 1.8 cm ESV(Teich): 60.7 ml LVLd ap4: 7.0 cm SV(MOD-sp4): 45.0 ml EDV(MOD-sp4): 91.0 ml LVLs ap4: 6.0 cm ESV(MOD-sp4): 46.0 ml LAV (MOD-bp): 83.0 ml TAPSE: 2.2 cm RV S Price: 12.1 cm/sec Doppler Measurements & Calculations MV E max price: 89.8 cm/sec Ao V2 max: 160.0 cm/sec MV A max price: 79.5 cm/sec Ao max P.2 mmHg MV E/A: 1.1 Ao V2 mean: 111.3 cm/sec MV dec time: 0.21 sec Ao mean P.6 mmHg Ao V2 VTI: 36.1 cm GEO(I,D): 1.7 cm2 AI P1/2t: 450.4 msec GEO(V,D): 1.8 cm2 AI max price: 432.7 cm/sec LV V1 max P.4 mmHg AI max P.9 mmHg LV V1 mean P.5 mmHg AI dec slope: 281.4 cm/sec2 LV V1 max: 116.5 cm/sec LV V1 mean: 71.9 cm/sec LV V1 VTI: 25.3 cm MR max price: 500.4 cm/sec SV(LVOT): 62.7 ml MR max P.8 mmHg TR max price: 254.1 cm/sec PA V2 max: 114.0 cm/sec TR max P.9 mmHg PA max P.2 mmHg Med Peak E' Price: 5.0 cm/sec Pulm Sys Price: 62.2 cm/sec Med E/e': 18.1 Pulm [place]ak Price: 42.0 cm/sec Lat Peak E' Price: 6.3 cm/sec Pulm S/D: 1.5 Lat E/e': 14.2 Tech Comments TDS due to body habitus. Left Ventricle Ejection Fraction = 50%. The transmitral spectral Doppler flow pattern is normal for age. Septal renate on is consistent with conduction abnormality. Right Ventricle There is a pacemaker lead in the right ventricle. The right ventricle is grossly normal size. The rig ht ventricular systolic function is normal. Atria The left atrium is mildly dilated. Mitral Valve There is mild mitral valve thickening. There is no mitral valve stenosis. There is moderate to severe mitral regurgitation. The mitral regurgitant jet is eccentrically directed. Tricuspid Valve The tricuspid valve is normal in structure and function. There is mild tricuspid regurgitation. Right ventricular systolic pressure is normal. Aortic Valve The aortic valve opens well. No hemodynamically significant valvular aortic stenosis. Mild to moderat e aortic regurgitation. Pulmonic Valve The pulmonic valve is not well seen, but is grossly normal. There is no pulmonic valvular stenosis. T race pulmonic valvular regurgitation. Great Vessels The aortic root is normal size. Pericardium/Pleura There is no pericardial effusion. Interpretation Summary Septal motion is consistent with conduction abnormality. Ejection Fraction = 50%. There is a pacemaker lead in the right ventricle. The left atrium is mildly dilated. There is mild mitral valve thickening. There is moderate to severe mitral regurgitation. The mitral regurgitant jet is eccentrically directed. There is mild tricuspid regurgitation. Mild to moderate aortic regurgitation. There is no pericardial effusion. MD Benz *[place] 04/26/2020 03:31 PM
[2020-04-26 19:04] LABS: INR 1.89 (0.83-1.09); PROTHROMBIN TIME (PATIENT) 22.5 SEC (9.7-13.0)
[2020-04-26] MEDS ORDERED: PT OWN MED DRAWER 7, Y5N ONE (19:18)
[2020-04-26 19:34] LABS: BLOOD UREA NITROGEN 19.8 mg/dL (7-18); CALCIUM 9.2 mg/dL (8.5-10.1); CREATININE 1.6 mg/dL (0.55-1.3); POTASSIUM 3.8 mmol/L (3.5-5.1)
[2020-04-26] MEDS: ROSUVASTATIN CA 5 MG TABLET (FP) PO SCH (22:04)
[2020-04-26] MEDS: LATANOPROST 0.005% OPHTH SOLN 2.5ML BOTTLE OU SCH (22:15)
[2020-04-27] MEDS: FUROSEMIDE 40 MG/4 ML INJECTABLE VIAL IVPUSH SCH ×2 (06:27→14:07)
[2020-04-27] MEDS: INSULIN SLIDING SCALE (NOVOLOG) 1 VIAL SQ SCH ×4 (06:27→23:58)
[2020-04-27 07:56] LABS: ALBUMIN 3.2 g/dl (3.4-5.0); BILIRUBIN,TOTAL 0.4 mg/dL (0.2-1); CALCIUM 9.4 mg/dL (8.5-10.1); CREATININE 1.4 mg/dL (0.55-1.3); MAGNESIUM 2.2 mg/dL (1.8-2.4); POTASSIUM 3.5 mmol/L (3.5-5.1); TOT PROT 6.7 g/dl (6.4-8.2)
[2020-04-27 07:59] LABS: BASO % 0.5 % (0-2.0); LYMPH % 33.7 % (8-40); MCH 29.6 pg (25.7-33.7); MCHC 32.3 g/dl (32.0-36.0); MEAN CELL VOLUME 91.5 fl (80-96); MEAN PLT VOLUME 8.8 fl (7.5-11.1); MONO % 9.1 % (3.8-10.2); NEUT % 54.7 % (42.8-82.8); PLATELET COUNT 219 K/MM3 (134-434); RBC 3.72 M/mm3 (3.60-5.2); RDW 14.7 % (11.6-15.6); WHITE BLOOD COUNT 6.6 K/mm3 (4.0-10.0)
[2020-04-27] MEDS: COLCHICINE 0.6 MG CAP PO SCH ×2 (09:21→22:14)
[2020-04-27] MEDS: VALSARTAN 80 MG TABLET (UD) PO SCH ×2 (09:22→22:10)
[2020-04-27] MEDS: APIXABAN 5 MG TABLET PO SCH ×2 (09:22→22:12)
[2020-04-27] MEDS: HYDROXYCHLOROQUINE SO4 200 MG TABLET (FP) PO SCH (09:23)
[2020-04-27] MEDS: MULTIVITAMINS (DAILY MVI) TABLET (FP) PO SCH (09:23)
[2020-04-27] MEDS: PANTOPRAZOLE 40 MG TABLET PO SCH (09:23)
[2020-04-27] MEDS: ISOSORBIDE MONONITRATE 30 MG TAB.SR.24H (FP) PO SCH (09:23)
[2020-04-27] MEDS: FERROUS SO4 325 MG TABLET (FP) PO SCH (09:23)
[2020-04-27] MEDS: CLOPIDOGREL BISULFATE 75 MG TABLET (FP) PO SCH (09:23)
[2020-04-27] MEDS: LABETALOL HCL 100 MG TABLET (FP) PO SCH ×2 (09:23→22:14)
[2020-04-27] MEDS: CALCIUM (OYSTER SHELL) 500 MG TABLET (FP) PO SCH (09:23)
[2020-04-27] MEDS: DORZOLAMIDE 2% HCL OPHTHALMIC SOLUTION 10 ML BOTTLE OU SCH ×2 (09:24→22:16)
--- NOTE | 2020-04-27 10:27 | PN ---
Progress Note (short form) - Note Progress Note: s: no cp sob palps dizzy Current Medications Generic Name Dose Route Start Last Admin Trade Name Freq PRN Reason Stop Dose Admin Albuterol Sulfate 2 puff 04/26/20 15:15 Ventolin Hfa Inhaler - IH Q4H PRN SHORT OF BREATH/WHEEZING Apixaban 5 mg 04/26/20 10:00 04/27/20 09:22 Eliquis - PO 5 mg BID JONAS Administration Calcium Carbonate 500 mg 04/26/20 10:00 04/27/20 09:23 Os-Gino 500mg - PO 500 mg DAILY JONAS Administration Clopidogrel Bisulfate 75 mg 04/26/20 10:00 04/27/20 09:23 Plavix - PO 75 mg DAILY JONAS Administration Colchicine 0.6 mg 04/26/20 10:00 04/27/20 09:21 Colcrys PO 0.6 mg BID JONAS Administration Diltiazem HCl 240 mg 04/26/20 10:00 04/27/20 09:21 Cardizem Cd - PO 240 mg DAILY JONAS Administration Dorzolamide HCl 1 drop 04/26/20 10:00 04/27/20 09:24 Trusopt 2% OU 1 drop BID JONAS Administration Ferrous Sulfate 325 mg 04/26/20 10:00 04/27/20 09:23 Feosol - PO 325 mg DAILY JONAS Administration Furosemide 40 mg 04/26/20 14:00 04/27/20 06:27 Lasix Injection - IVPUSH 40 mg BID@0600,1400 JONAS Administration Hydroxychloroquine Sulfate 200 mg 04/26/20 10:00 04/27/20 09:23 Plaquenil - PO 200 mg DAILY JONAS Administration Insulin Aspart 1 vial 04/26/20 07:00 04/27/20 06:27 Novolog Vial Sliding Scale - SQ 2 units ACHS JONAS Administration Protocol Isosorbide Mononitrate 30 mg 04/26/20 10:00 04/27/20 09:23 Imdur - PO 30 mg DAILY JONAS Administration Labetalol HCl 300 mg 04/26/20 10:00 04/27/20 09:23 Normodyne - PO 300 mg BID JONAS Administration Latanoprost 1 drop 04/26/20 22:00 04/26/20 22:15 Xalatan 0.005% Eye Drops - OU 1 drop HS JONAS Administration Multivitamins/Minerals/Vitamin C 1 tab 04/26/20 10:00 04/27/20 09:23 Tab-A-Vit - PO 1 tab DAILY JONAS Administration Pantoprazole Sodium 40 mg 04/26/20 10:00 04/27/20 09:23 Protonix - PO 40 mg DAILY JONAS Administration Rosuvastatin Calcium 5 mg 04/26/20 22:00 04/26/20 22:04 Crestor - PO 5 mg HS JONAS Administration Valsartan 80 mg 04/26/20 10:00 04/27/20 09:22 Diovan - PO 80 mg BID JONAS Administration Vital Signs Period Temp Pulse Resp BP Sys/Nowak Pulse Ox Last 24 Hr 97.7 F-98.8 F 60-74 18-18 141-164/57-77 94-98 Constitutional: Yes: No Distress, Calm Eyes: Yes: Conjunctiva Clear, EOM Intact HENT: Yes: Atraumatic, Normocephalic Neck: Yes: Trachea Midline Respiratory: Yes: Other (rales at bases) Gastrointestinal: Yes: Soft (NT) JVD: Yes Heart Sounds: Yes: S1, S2 Edema: Yes Edema: LLE: 1+, RLE: 1+ Peripheral Pulses WNL: Yes Neurological: Yes: Alert, Oriented CBC, BMP 04/27/20 05:35 04/27/20 05:35 nsr, nonspecific IVCD, no acute changes tele: sr Imaging - Results Chest X-ray: Image Reviewed EKG: Image Reviewed Assessment/Plan IMP: Acute on chronic diastolic CHF Uncontrolled HTN Solitary kidney with progressive renal artery stenosis, possibly causing the HTN and CHF Hx of CVA CAD PAF s/p PPM Chronic HTN CKD Hypercoag state s/p DVT Remote hx of pericardial effusion REC: 1. Acute diastolic CHF: -Tele/ daily weights and BMP to follow renal Fx -Agree with IV Lasix -Supp O2 -Repeat echo shows preserved lvef, mod-sev mr -Cardiac enzymes neg, doubt ischemic etiology 2. Uncontrolled HTN: -Over last 3 months difficult to manage and she was switched from Coreg to Labetalol with increased dose requirement, most recently 250 BID -Admitted with SBP 200; d/c coreg and start Labetalol 300mg BID (has PPM so bradycardia not a concern). -Has not tolerated Amlodipine (edema); would not titrate ARB further due to YAQUELIN and CKD issues. -Has been on low dose hydralazine, but prefer to avoid if possible -Suspect uncontrolled HTN triggered CHF decompensation 3. YAQUELIN: progressive -Possibly driving HTN and CHF -Keep close eye on renal function as we diurese -Once euvolemic, will f/u with vascular at [facility] for planned renal artery stent 4. Hx CVA/AF/elevated [id number] -Vasc score: -Cont Eliquis 5. CAD: remote hx PCI -On single antiplatelet rx with Plavix; Crestor 6. PAF: s/p PPM -Routine office interrogations -Tele to assure AF is controlled -On labetalol, Cardizem for rate control -Eliquis 7. Chronic HTN: as above. 8. CKD: as above, close monitoring renal fx as we diurese with daily BMP 9. Hypercoag state: -s/p DVT -Followed by Heme and Rheum at [facility] and was approved for NOAC use 10. Pericardial effusion: remote hx, asx -no eff on echo here
[2020-04-27] MEDS ORDERED: ACETAMINOPHEN 325 MG TABLET (FP) PO PRN (21:37)
[2020-04-27] MEDS: ROSUVASTATIN CA 5 MG TABLET (FP) PO SCH (22:13)
[2020-04-27] MEDS: LATANOPROST 0.005% OPHTH SOLN 2.5ML BOTTLE OU SCH (22:17)
[2020-04-28] MEDS: FUROSEMIDE 40 MG/4 ML INJECTABLE VIAL IVPUSH SCH ×2 (06:01→13:17)
[2020-04-28] MEDS: INSULIN SLIDING SCALE (NOVOLOG) 1 VIAL SQ SCH ×4 (06:09→22:16)
[2020-04-28 07:22] LABS: BASO % 0.4 % (0-2.0); EOS % 1.5 % (0-4.5); HEMATOCRIT 34.5 % (32.4-45.2); HEMOGLOBIN 11.3 GM/dL (10.7-15.3); LYMPH % 35.6 % (8-40); MCHC 32.9 g/dl (32.0-36.0); MEAN CELL VOLUME 91.2 fl (80-96); MEAN PLT VOLUME 8.7 fl (7.5-11.1); MONO % 10.5 % (3.8-10.2); PLATELET COUNT 230 K/MM3 (134-434); RBC 3.78 M/mm3 (3.60-5.2); RDW 14.6 % (11.6-15.6); WHITE BLOOD COUNT 6.8 K/mm3 (4.0-10.0)
[2020-04-28 07:44] LABS: ALBUMIN 3.2 g/dl (3.4-5.0); BILIRUBIN,TOTAL 0.4 mg/dL (0.2-1); BLOOD UREA NITROGEN 17.6 mg/dL (7-18); CREATININE 1.4 mg/dL (0.55-1.3); MAGNESIUM 2.2 mg/dL (1.8-2.4); POTASSIUM 3.3 mmol/L (3.5-5.1); TOT PROT 6.8 g/dl (6.4-8.2)
--- NOTE | 2020-04-28 08:01 | PN ---
Progress Note, Physician Chief Complaint: Seen and examined in chair. States her bretahing is improved and asking when she can return home. Continued on IV lasix. COVID PCR negative. History of Present Illness: 74 y/o female with a-fib s/p PPM, DVT, CVA, HTN, HLD, GERD, DM, renal artery stenosis, AAA repair, right nephrectomy, left renal stents, and lupus who presents with 10 days increasing shortness of breath. Pt had increased dose of lasix the last several days. Overnight she became hypoxic to 70s when EMS ar rived at her home. - Current Medication List Current Medications: Active Medications Acetaminophen (Tylenol -) 650 mg PO Q6H PRN PRN Reason: PAIN LEVEL 4 - 6 Last Admin: 04/28/20 01:54 Dose: 650 mg Documented by: Albuterol Sulfate (Ventolin Hfa Inhaler -) 2 puff IH Q4H PRN PRN Reason: SHORT OF BREATH/WHEEZING Apixaban (Eliquis -) 5 mg PO BID [facility] Last Admin: 04/27/20 22:12 Dose: 5 mg Documented by: Calcium Carbonate (Os-Gino 500mg -) 500 mg PO DAILY [facility] Last Admin: 04/27/20 09:23 Dose: 500 mg Documented by: Clopidogrel Bisulfate (Plavix -) 75 mg PO DAILY [facility] Last Admin: 04/27/20 09:23 Dose: 75 mg Documented by: Colchicine (Colcrys) 0.6 mg PO BID [facility] Last Admin: 04/27/20 22:14 Dose: 0.6 mg Documented by: Diltiazem HCl (Cardizem Cd -) 240 mg PO DAILY [facility] Last Admin: 04/27/20 09:21 Dose: 240 mg Documented by: Dorzolamide HCl (Trusopt 2%) 1 drop OU BID [facility] Last Admin: 04/27/20 22:16 Dose: 1 drop Documented by: Ferrous Sulfate (Feosol -) 325 mg PO DAILY [facility] Last Admin: 04/27/20 09:23 Dose: 325 mg Documented by: Furosemide (Lasix Injection -) 40 mg IVPUSH BID@0600,1400 [facility] Last Admin: 04/28/20 06:01 Dose: 40 mg Documented by: Hydroxychloroquine Sulfate (Plaquenil -) 200 mg PO DAILY [facility] Last Admin: 04/27/20 09:23 Dose: 200 mg Documented by: Insulin Aspart (Novolog Vial Sliding Scale -) 1 vial SQ [facility]; Protocol Last Admin: 04/28/20 06:09 Dose: 2 units Documented by: Isosorbide Mononitrate (Imdur -) 30 mg PO DAILY [facility] Last Admin: 04/27/20 09:23 Dose: 30 mg Documented by: Labetalol HCl (Normodyne -) 300 mg PO BID [facility] Last Admin: 04/27/20 22:14 Dose: 300 mg Documented by: Latanoprost (Xalatan 0.005% Eye Drops -) 1 drop OU HS [facility] Last Admin: 04/27/20 22:17 Dose: 1 drop Documented by: Multivitamins/Minerals/Vitamin C (Tab-A-Vit -) 1 tab PO DAILY [facility] Last Admin: 04/27/20 09:23 Dose: 1 tab Documented by: Pantoprazole Sodium (Protonix -) 40 mg PO DAILY [facility] Last Admin: 04/27/20 09:23 Dose: 40 mg Documented by: Rosuvastatin Calcium (Crestor -) 5 mg PO HS [facility] Last Admin: 04/27/20 22:13 Dose: 5 mg Documented by: Valsartan (Diovan -) 80 mg PO BID [facility] Last Admin: 04/27/20 22:10 Dose: 80 mg Documented by: - Objective Vital Signs: Vital Signs Temperature 98.2 F 04/28/20 06:00 Pulse Rate 7 L 04/28/20 06:00 Respiratory Rate 20 04/28/20 06:00 Blood Pressure 156/69 04/28/20 06:00 O2 Sat by Pulse Oximetry (%) 94 L 04/27/20 21:00 Additional Findings/Remarks: Constitutional: Yes: Well Nourished, No Distress, Calm Eyes: Yes: WNL, Conjunctiva Clear, EOM Intact HENT: Yes: WNL, Atraumatic, Normocephalic Neck: Yes: WNL, Supple, Trachea Midline Cardiovascular: Yes: WNL, Regular Rate and Rhythm Respiratory: Yes: Regular, Diminished (at bases), On Nasal O2, Rales improved Gastrointestinal: Yes: Normal Bowel Sounds, Soft, Tenderness resolved. ...Rectal Exam: Yes: Deferred Renal/: Yes: WNL Breast(s): Yes: WNL Musculoskeletal: Yes: WNL Extremities: Yes: WNL Edema: Yes Edema: LLE: 1+, RLE: 1+ Peripheral Pulses WNL: Yes Peripheral Pulses: Left Radial: 2+, Right Radial: 2+, Left Doralis Pedis: 2+, Right Dorsalis Pedis: 2+, Left Femoral: 2+, Right Femoral: 2+ Integumentary: Yes: WNL Neurological: Yes: WNL, Alert, Oriented ...Motor Strength: WNL Psychiatric: Yes: WNL, Alert, Oriented Labs: CBC, BMP 04/28/20 05:45 INR, PTT INR 1.89 (0.83-1.09) H 04/26/20 18:12 - ....Imaging Chest X-ray: Report Reviewed Problem List - Problems (1) CAD (coronary artery disease) Assessment/Plan: c/w Plavix; Crestor Code(s): I25.10 - ATHSCL HEART DISEASE OF [place] CORONARY ARTERY W/O ANG PCTRS (2) Prophylactic measure Assessment/Plan: FEN Fluids: adequate PO intake Electrolytes: monitor & replete as needed Nutrition: low Na diet DVT moderate risk apix/plavix Dispo Maintain as inpatient full code discharge planning Code(s): Z29.9 - ENCOUNTER FOR PROPHYLACTIC MEASURES, UNSPECIFIED (3) Acute on chronic systolic (congestive) heart failure Assessment/Plan: breathing improved today c/w lasix IV 40mg bid can charge to PO if continues to improve tmrw repeat TTE shows preserved lvef, mod-sev mr (likely appears worse due to vol overload) elevate LE/OOB daily weights Code(s): I50.23 - ACUTE ON CHRONIC SYSTOLIC (CONGESTIVE) HEART FAILURE (4) Afib Assessment/Plan: AF, rate controlled c/w labetolol, diltiazen maintain on tele Code(s): I48.91 - UNSPECIFIED ATRIAL FIBRILLATION Qualifiers: Atrial fibrillation type: paroxysmal Qualified Code(s): I48.0 - Paroxysmal atrial fibrillation (5) DVT (deep venous thrombosis) Assessment/Plan: hx of DVt c/w apixaban Code(s): I82.409 - ACUTE EMBOLISM AND THOMBOS UNSP DEEP VN UNSP LOWER EXTREMITY Qualifiers: DVT location: lower extremity Affected thrombotic vein of extremity: popliteal Chronicity: acute Laterality: left Qualified Code(s): I82.432 - Acute embolism and thrombosis of left popliteal vein (6) Diabetes Assessment/Plan: BGM AC/HS with novolog sliding scale diabetic diet Code(s): E11.9 - TYPE 2 DIABETES MELLITUS WITHOUT COMPLICATIONS Qualifiers: Diabetes mellitus type: type 2 (7) HLD (hyperlipidemia) Assessment/Plan: c/w crestor Code(s): E78.5 - HYPERLIPIDEMIA, UNSPECIFIED (8) HTN (hypertension) Assessment/Plan: BP better controlled c/w labetolol, lasix as per cardiology has been on low dose hydralazine, but prefer to avoid if possible Code(s): I10 - ESSENTIAL (PRIMARY) HYPERTENSION Qualifiers: Hypertension type: essential hypertension Qualified Code(s): I10 - Essential (primary) hypertension (9) Acute on chronic kidney failure Assessment/Plan: Cr 1.4 avoid nephrotoxic agents close monitor given IV lasix Code(s): N17.9 - ACUTE KIDNEY FAILURE, UNSPECIFIED; N18.9 - CHRONIC KIDNEY DISEASE, UNSPECIFIED (10) Renal artery stenosis Assessment/Plan: most likely contributing to Htn c/t closely monitor renal rx as per cardiology once euvolemic, will plan for transfer to vascular at [facility] for planned renal artery stent Code(s): I70.1 - ATHEROSCLEROSIS OF RENAL ARTERY Visit type - Emergency Visit Emergency Visit: Yes ED Registration Date: 04/26/20 Care time: The patient presented to the Emergency Department on the above date and was hospitalized for further evaluation of their emergent condition. - New Patient This patient is new to me today: No - Critical Care Critical Care patient: No - Discharge Referral Referred to [facility] Med P.C.: No
[2020-04-28] MEDS: ISOSORBIDE MONONITRATE 30 MG TAB.SR.24H (FP) PO SCH (09:07)
[2020-04-28] MEDS: LABETALOL HCL 100 MG TABLET (FP) PO SCH ×2 (09:07→22:15)
[2020-04-28] MEDS: CLOPIDOGREL BISULFATE 75 MG TABLET (FP) PO SCH (09:07)
[2020-04-28] MEDS: MULTIVITAMINS (DAILY MVI) TABLET (FP) PO SCH (09:07)
[2020-04-28] MEDS: FERROUS SO4 325 MG TABLET (FP) PO SCH (09:07)
[2020-04-28] MEDS: PANTOPRAZOLE 40 MG TABLET PO SCH (09:07)
[2020-04-28] MEDS: CALCIUM (OYSTER SHELL) 500 MG TABLET (FP) PO SCH (09:07)
[2020-04-28] MEDS: APIXABAN 5 MG TABLET PO SCH ×2 (09:07→22:15)
[2020-04-28] MEDS: VALSARTAN 80 MG TABLET (UD) PO SCH ×2 (09:08→22:16)
[2020-04-28] MEDS: COLCHICINE 0.6 MG CAP PO SCH ×2 (09:08→22:15)
[2020-04-28] MEDS: HYDROXYCHLOROQUINE SO4 200 MG TABLET (FP) PO SCH (09:09)
[2020-04-28] MEDS: DORZOLAMIDE 2% HCL OPHTHALMIC SOLUTION 10 ML BOTTLE OU SCH ×2 (09:09→22:18)
[2020-04-28] MEDS ORDERED: POTASSIUM CHLORIDE TABS 20 MEQ TABLET.ER (FP) PO ONE (09:30)
--- NOTE | 2020-04-28 11:34 | PN ---
Progress Note (short form) - Note Progress Note: s: no cp sob palps dizzy Current Medications Generic Name Dose Route Start Last Admin Trade Name Freq PRN Reason Stop Dose Admin Acetaminophen 650 mg 04/27/20 21:37 04/28/20 01:54 Tylenol - PO 650 mg Q6H PRN Administration PAIN LEVEL 4 - 6 Albuterol Sulfate 2 puff 04/26/20 15:15 Ventolin Hfa Inhaler - IH Q4H PRN SHORT OF BREATH/WHEEZING Apixaban 5 mg 04/26/20 10:00 04/28/20 09:07 Eliquis - PO 5 mg BID JONAS Administration Calcium Carbonate 500 mg 04/26/20 10:00 04/28/20 09:07 Os-Gino 500mg - PO 500 mg DAILY JONAS Administration Clopidogrel Bisulfate 75 mg 04/26/20 10:00 04/28/20 09:07 Plavix - PO 75 mg DAILY JONAS Administration Colchicine 0.6 mg 04/26/20 10:00 04/28/20 09:08 Colcrys PO 0.6 mg BID JONAS Administration Diltiazem HCl 240 mg 04/26/20 10:00 04/28/20 09:07 Cardizem Cd - PO 240 mg DAILY JONAS Administration Dorzolamide HCl 1 drop 04/26/20 10:00 04/28/20 09:09 Trusopt 2% OU 1 drop BID JONAS Administration Ferrous Sulfate 325 mg 04/26/20 10:00 04/28/20 09:07 Feosol - PO 325 mg DAILY JONAS Administration Furosemide 40 mg 04/26/20 14:00 04/28/20 06:01 Lasix Injection - IVPUSH 40 mg BID@0600,1400 JONAS Administration Hydroxychloroquine Sulfate 200 mg 04/26/20 10:00 04/28/20 09:09 Plaquenil - PO 200 mg DAILY JONAS Administration Insulin Aspart 1 vial 04/26/20 07:00 04/28/20 06:09 Novolog Vial Sliding Scale - SQ 2 units ACHS JONAS Administration Protocol Isosorbide Mononitrate 30 mg 04/26/20 10:00 04/28/20 09:07 Imdur - PO 30 mg DAILY JONAS Administration Labetalol HCl 300 mg 04/26/20 10:00 04/28/20 09:07 Normodyne - PO 300 mg BID JONAS Administration Latanoprost 1 drop 04/26/20 22:00 04/27/20 22:17 Xalatan 0.005% Eye Drops - OU 1 drop HS JONAS Administration Multivitamins/Minerals/Vitamin C 1 tab 04/26/20 10:00 04/28/20 09:07 Tab-A-Vit - PO 1 tab DAILY JONAS Administration Pantoprazole Sodium 40 mg 04/26/20 10:00 04/28/20 09:07 Protonix - PO 40 mg DAILY JONAS Administration Rosuvastatin Calcium 5 mg 04/26/20 22:00 04/27/20 22:13 Crestor - PO 5 mg HS JONAS Administration Valsartan 80 mg 04/26/20 10:00 04/28/20 09:08 Diovan - PO 80 mg BID JONAS Administration Vital Signs Period Temp Pulse Resp BP Sys/Nowak Pulse Ox Last 24 Hr 97.2 F-98.6 F 7-72 20-22 142-185/68-82 94-95 Constitutional: Yes: No Distress, Calm Eyes: Yes: Conjunctiva Clear, EOM Intact HENT: Yes: Atraumatic, Normocephalic Neck: Yes: Trachea Midline Respiratory: Yes: cta bl nl eff Gastrointestinal: Yes: Soft (NT) JVD: Yes Heart Sounds: Yes: S1, S2 Edema: trace Peripheral Pulses WNL: Yes Neurological: Yes: Alert, Oriented CBC, BMP 04/28/20 05:45 04/28/20 05:45 nsr, nonspecific IVCD, no acute changes tele: sr Imaging - Results Chest X-ray: Image Reviewed EKG: Image Reviewed Assessment/Plan IMP: Acute on chronic diastolic CHF Uncontrolled HTN Solitary kidney with progressive renal artery stenosis, possibly causing the HTN and CHF Hx of CVA CAD PAF s/p PPM Chronic HTN CKD Hypercoag state s/p DVT Remote hx of pericardial effusion REC: 1. Acute diastolic CHF: -Tele/ daily weights and BMP to follow renal Fx -cont with IV Lasix, can likely change to po soon -Supp O2 -Repeat echo shows preserved lvef, mod-sev mr (likely appears worse due to vol overload) -Cardiac enzymes neg, doubt ischemic etiology 2. Uncontrolled HTN: -Over last 3 months difficult to manage and she was switched from Coreg to Labetalol with increased dose requirement, most recently 250 BID -Admitted with SBP 200; d/c coreg and start Labetalol 300mg BID (has PPM so bradycardia not a concern). -Has not tolerated Amlodipine (edema); would not titrate ARB further due to YAQUELIN and CKD issues. -Has been on low dose hydralazine, but prefer to avoid if possible -Suspect uncontrolled HTN triggered CHF decompensation 3. YAQUELIN: progressive -Possibly driving HTN and CHF -Keep close eye on renal function as we diurese -Once euvolemic, will plan for transfer to vascular at [facility] for planned renal artery stent 4. Hx CVA/AF/elevated [id number] -Vasc score: -Cont Eliquis 5. CAD: remote hx PCI -On single antiplatelet rx with Plavix; Crestor 6. PAF: s/p PPM -Routine office interrogations -Tele to assure AF is controlled -On labetalol, Cardizem for rate control -Eliquis 7. Chronic HTN: as above. 8. CKD: as above, close monitoring renal fx as we diurese with daily BMP 9. Hypercoag state: -s/p DVT -Followed by Heme and Rheum at [facility] and was approved for NOAC use 10. Pericardial effusion: remote hx, asx -no eff on echo here
[2020-04-28] MEDS: ROSUVASTATIN CA 5 MG TABLET (FP) PO SCH (22:16)
[2020-04-28] MEDS: LATANOPROST 0.005% OPHTH SOLN 2.5ML BOTTLE OU SCH (22:18)
[2020-04-29] MEDS: INSULIN SLIDING SCALE (NOVOLOG) 1 VIAL SQ SCH ×2 (07:00→11:18)
[2020-04-29] MEDS: FUROSEMIDE 40 MG/4 ML INJECTABLE VIAL IVPUSH SCH (07:00)
[2020-04-29 07:46] LABS: BASO % 0.5 % (0-2.0); EOS % 1.4 % (0-4.5); HEMATOCRIT 35.2 % (32.4-45.2); HEMOGLOBIN 11.5 GM/dL (10.7-15.3); LYMPH % 31.8 % (8-40); MCH 29.9 pg (25.7-33.7); MCHC 32.6 g/dl (32.0-36.0); MEAN CELL VOLUME 91.5 fl (80-96); MEAN PLT VOLUME 8.4 fl (7.5-11.1); MONO % 9.5 % (3.8-10.2); NEUT % 56.8 % (42.8-82.8); PLATELET COUNT 249 K/MM3 (134-434); RBC 3.84 M/mm3 (3.60-5.2); WHITE BLOOD COUNT 6.9 K/mm3 (4.0-10.0)
[2020-04-29 08:14] LABS: POTASSIUM 3.6 mmol/L (3.5-5.1)
[2020-04-29 08:27] LABS: ALBUMIN 3.3 g/dl (3.4-5.0); BILIRUBIN,TOTAL 0.5 mg/dL (0.2-1); BLOOD UREA NITROGEN 18.6 mg/dL (7-18); CALCIUM 9.6 mg/dL (8.5-10.1); CREATININE 1.3 mg/dL (0.55-1.3); MAGNESIUM 2.3 mg/dL (1.8-2.4); TOT PROT 6.7 g/dl (6.4-8.2)
[2020-04-29 09:02] VITALS: BP 161/73; PULSE 70; TEMP 98.2
--- NOTE | 2020-04-29 09:17 | PN ---
Physical Exam: SUBJECTIVE: Patient seen and examined. she states she feels well, no shortness of breath, no cough or chest pain. OBJECTIVE: Patient is a 74 year old female with a significant past medical history of a-fib s/p PPM, DVT, CVA, HTN, HLD, GERD, DM, renal artery stenosis, AAA repair, (right nephrectomy?), left renal stent 2010, and lupus who presents to the ED on 04/26/2020 with 10 days increasing shortness of breath. Over last 2 months, her BP has been elevated and difficult to control requiring change from Coreg to Labetalol with increasing dose requirements and addition of Hydralazine. Patient referred back to vascular at [facility] and she was found to have progressive renal artery stenosis and was planned for angioplasty. Her BP was markedly elevated on admission and CXR showed increased PVC. Markedly elevated BNP (3000). Patient has improved on Lasix IV 40 bid. personnel monitor: nsr 71 ---- *plan for transfer when bed available to [facility] (Dr Gila Bush) for planned renal artery stent Vital Signs Period Temp Pulse Resp BP Sys/Nowak Pulse Ox Last 24 Hr 97.2 F-98.4 F 62-82 18-22 135-182/62-82 95 GENERAL: The patient is awake, alert, and fully oriented, in no acute distress. HEAD: Normal with no signs of trauma. EYES: PERRL, extraocular movements intact, sclera anicteric, conjunctiva clear. No ptosis. ENT: Ears normal, nares patent, oropharynx clear without exudates, moist mucous membranes. NECK: Trachea midline, full range of motion, supple. LUNGS: Breath sounds equal, clear to auscultation bilaterally, no wheezes, diminished at the bases HEART: Regular rate and rhythm ABDOMEN: Soft, nontender, nondistended, normoactive bowel sounds EXTREMITIES: trace bilateral lower ext edema NEUROLOGICAL: Normal speech, gait not observed. PSYCH: Normal mood, normal affect. SKIN: Warm, dry, normal turgor, no rashes or lesions noted Laboratory Results - last 24 hr 04/28/20 04/28/20 04/28/20 11:09 16:00 22:14 WBC RBC Hgb Hct MCV MCH MCHC RDW Plt Count MPV Absolute Neuts (auto) Neutrophils % Lymphocytes % Monocytes % Eosinophils % Basophils % Nucleated RBC % Sodium Potassium Chloride Carbon Dioxide Anion Gap BUN Creatinine Est GFR (CKD-EPI)AfAm Est GFR (CKD-EPI)NonAf POC Glucometer 243 193 173 Random Glucose Calcium Magnesium Total Bilirubin AST ALT Alkaline Phosphatase Total Protein Albumin 04/29/20 04/29/20 04/29/20 06:33 06:33 06:51 WBC 6.9 RBC 3.84 Hgb 11.5 Hct 35.2 MCV 91.5 MCH 29.9 MCHC 32.6 RDW 15.0 Plt Count 249 MPV 8.4 Absolute Neuts (auto) 3.9 Neutrophils % 56.8 Lymphocytes % 31.8 Monocytes % 9.5 Eosinophils % 1.4 Basophils % 0.5 Nucleated RBC % 0 Sodium 139 Potassium 3.6 Chloride 102 Carbon Dioxide 26 Anion Gap 11 BUN 18.6 H Creatinine 1.3 Est GFR (CKD-EPI)AfAm 46.47 Est GFR (CKD-EPI)NonAf 40.10 POC Glucometer 193 Random Glucose 187 H Calcium 9.6 Magnesium 2.3 Total Bilirubin 0.5 AST 20 ALT 19 Alkaline Phosphatase 90 Total Protein 6.7 Albumin 3.3 L Active Medications Generic Name Dose Route Start Last Admin Trade Name Freq PRN Reason Stop Dose Admin Acetaminophen 650 mg 04/27/20 21:37 04/28/20 01:54 Tylenol - PO 650 mg Q6H PRN Administration PAIN LEVEL 4 - 6 Albuterol Sulfate 2 puff 04/26/20 15:15 Ventolin Hfa Inhaler - IH Q4H PRN SHORT OF BREATH/WHEEZING Apixaban 5 mg 04/26/20 10:00 04/28/20 22:15 Eliquis - PO 5 mg BID JONAS Administration Calcium Carbonate 500 mg 04/26/20 10:00 04/28/20 09:07 Os-Gino 500mg - PO 500 mg DAILY JONAS Administration Clopidogrel Bisulfate 75 mg 04/26/20 10:00 04/28/20 09:07 Plavix - PO 75 mg DAILY JONAS Administration Colchicine 0.6 mg 04/26/20 10:00 04/28/20 22:15 Colcrys PO 0.6 mg BID JONAS Administration Diltiazem HCl 240 mg 04/26/20 10:00 04/28/20 09:07 Cardizem Cd - PO 240 mg DAILY JONAS Administration Dorzolamide HCl 1 drop 04/26/20 10:00 04/28/20 22:18 Trusopt 2% OU 1 drop BID JONAS Administration Ferrous Sulfate 325 mg 04/26/20 10:00 04/28/20 09:07 Feosol - PO 325 mg DAILY JONAS Administration Furosemide 40 mg 04/26/20 14:00 04/29/20 07:00 Lasix Injection - IVPUSH 40 mg BID@0600,1400 JONAS Administration Hydroxychloroquine Sulfate 200 mg 04/26/20 10:00 04/28/20 09:09 Plaquenil - PO 200 mg DAILY JONAS Administration Insulin Aspart 1 vial 04/26/20 07:00 04/29/20 07:00 Novolog Vial Sliding Scale - SQ 2 units ACHS JONAS Administration Protocol Isosorbide Mononitrate 30 mg 04/26/20 10:00 04/28/20 09:07 Imdur - PO 30 mg DAILY JONAS Administration Labetalol HCl 300 mg 04/26/20 10:00 04/28/20 22:15 Normodyne - PO 300 mg BID JONAS Administration Latanoprost 1 drop 04/26/20 22:00 04/28/20 22:18 Xalatan 0.005% Eye Drops - OU 1 drop HS JONAS Administration Multivitamins/Minerals/Vitamin C 1 tab 04/26/20 10:00 04/28/20 09:07 Tab-A-Vit - PO 1 tab DAILY JONAS Administration Pantoprazole Sodium 40 mg 04/26/20 10:00 04/28/20 09:07 Protonix - PO 40 mg DAILY JONAS Administration Rosuvastatin Calcium 5 mg 04/26/20 22:00 04/28/20 22:16 Crestor - PO 5 mg HS JONAS Administration Valsartan 80 mg 04/26/20 10:00 04/28/20 22:16 Diovan - PO 80 mg BID JONAS Administration ASSESSMENT/PLAN: Problem List - Problems (1) Renal artery stenosis Assessment/Plan: hypertension in the setting of renal artery stenosis. monitor renal function closely. on lasix 40mg bid bp now stable Code(s): I70.1 - ATHEROSCLEROSIS OF RENAL ARTERY (2) Afib Assessment/Plan: controlled. on labetalol and eliquis 5mg bid Code(s): I48.91 - UNSPECIFIED ATRIAL FIBRILLATION Qualifiers: Atrial fibrillation type: paroxysmal Qualified Code(s): I48.0 - Paroxysmal atrial fibrillation (3) VILLA (acute kidney injury) Assessment/Plan: creatinine 1.3, stable. monitor daily. avoid nephrotoxic agents close monitor given IV lasix Code(s): N17.9 - ACUTE KIDNEY FAILURE, UNSPECIFIED (4) CAD (coronary artery disease) Assessment/Plan: on plavix on crestor 5mg Code(s): I25.10 - ATHSCL HEART DISEASE OF [place] CORONARY ARTERY W/O ANG PCTRS (5) CHF (congestive heart failure) Assessment/Plan: on lasix 40mg bid Code(s): I50.9 - HEART FAILURE, UNSPECIFIED (6) CKD (chronic kidney disease) Assessment/Plan: monitor daily Code(s): N18.9 - CHRONIC KIDNEY DISEASE, UNSPECIFIED (7) Prophylactic measure Assessment/Plan: on eliquis Code(s): Z29.9 - ENCOUNTER FOR PROPHYLACTIC MEASURES, UNSPECIFIED (8) Abdominal pain Assessment/Plan: resolved Code(s): R10.9 - UNSPECIFIED ABDOMINAL PAIN (9) Acute on chronic systolic (congestive) heart failure Assessment/Plan: on lasix bid monitor weights, labs, vitals Code(s): I50.23 - ACUTE ON CHRONIC SYSTOLIC (CONGESTIVE) HEART FAILURE (10) Diabetes Assessment/Plan: on novlog. monitor bgms Code(s): E11.9 - TYPE 2 DIABETES MELLITUS WITHOUT COMPLICATIONS Qualifiers: Diabetes mellitus type: type 2 (11) Pericardial effusion Assessment/Plan: hx of pericardial effusion. echo w/o evidence of pericardial effusion. Code(s): I31.3 - PERICARDIAL EFFUSION (NONINFLAMMATORY) Visit type - Emergency Visit Emergency Visit: Yes ED Registration Date: 04/26/20 Care time: The patient presented to the Emergency Department on the above date and was hospitalized for further evaluation of their emergent condition. - New Patient This patient is new to me today: Yes Date on this admission: 04/29/20 - Critical Care Critical Care patient: No
[2020-04-29] MEDS: LABETALOL HCL 100 MG TABLET (FP) PO SCH (09:41)
[2020-04-29] MEDS: VALSARTAN 80 MG TABLET (UD) PO SCH (09:42)
[2020-04-29] MEDS: ISOSORBIDE MONONITRATE 30 MG TAB.SR.24H (FP) PO SCH (09:42)
[2020-04-29] MEDS: MULTIVITAMINS (DAILY MVI) TABLET (FP) PO SCH (09:42)
[2020-04-29] MEDS: COLCHICINE 0.6 MG CAP PO SCH (09:42)
[2020-04-29] MEDS: APIXABAN 5 MG TABLET PO SCH (09:42)
[2020-04-29] MEDS: CLOPIDOGREL BISULFATE 75 MG TABLET (FP) PO SCH (09:42)
[2020-04-29] MEDS: FERROUS SO4 325 MG TABLET (FP) PO SCH (09:42)
[2020-04-29] MEDS: CALCIUM (OYSTER SHELL) 500 MG TABLET (FP) PO SCH (09:42)
[2020-04-29] MEDS: PANTOPRAZOLE 40 MG TABLET PO SCH (09:42)
[2020-04-29] MEDS: HYDROXYCHLOROQUINE SO4 200 MG TABLET (FP) PO SCH (09:43)
[2020-04-29] MEDS: DORZOLAMIDE 2% HCL OPHTHALMIC SOLUTION 10 ML BOTTLE OU SCH (09:43)
--- NOTE | 2020-04-29 11:44 | PN ---
Progress Note (short form) - Note Progress Note: s: no cp sob palps dizzy Current Medications Generic Name Dose Route Start Last Admin Trade Name Freq PRN Reason Stop Dose Admin Acetaminophen 650 mg 04/27/20 21:37 04/28/20 01:54 Tylenol - PO 650 mg Q6H PRN Administration PAIN LEVEL 4 - 6 Albuterol Sulfate 2 puff 04/26/20 15:15 Ventolin Hfa Inhaler - IH Q4H PRN SHORT OF BREATH/WHEEZING Apixaban 5 mg 04/26/20 10:00 04/29/20 09:42 Eliquis - PO 5 mg BID JONAS Administration Calcium Carbonate 500 mg 04/26/20 10:00 04/29/20 09:42 Os-Gino 500mg - PO 500 mg DAILY JONAS Administration Clopidogrel Bisulfate 75 mg 04/26/20 10:00 04/29/20 09:42 Plavix - PO 75 mg DAILY JONAS Administration Colchicine 0.6 mg 04/26/20 10:00 04/29/20 09:42 Colcrys PO 0.6 mg BID JONAS Administration Diltiazem HCl 240 mg 04/26/20 10:00 04/29/20 09:42 Cardizem Cd - PO 240 mg DAILY JONAS Administration Dorzolamide HCl 1 drop 04/26/20 10:00 04/29/20 09:43 Trusopt 2% OU 1 drop BID JONAS Administration Ferrous Sulfate 325 mg 04/26/20 10:00 04/29/20 09:42 Feosol - PO 325 mg DAILY JONAS Administration Furosemide 40 mg 04/29/20 14:00 Lasix - PO BID@0600,1400 JONAS Hydroxychloroquine Sulfate 200 mg 04/26/20 10:00 04/29/20 09:43 Plaquenil - PO 200 mg DAILY JONAS Administration Insulin Aspart 1 vial 04/26/20 07:00 04/29/20 11:18 Novolog Vial Sliding Scale - SQ 4 units ACHS JONAS Administration Protocol Isosorbide Mononitrate 30 mg 04/26/20 10:00 04/29/20 09:42 Imdur - PO 30 mg DAILY JONAS Administration Labetalol HCl 300 mg 04/26/20 10:00 04/29/20 09:41 Normodyne - PO 300 mg BID JONAS Administration Latanoprost 1 drop 04/26/20 22:00 04/28/20 22:18 Xalatan 0.005% Eye Drops - OU 1 drop HS JONAS Administration Multivitamins/Minerals/Vitamin C 1 tab 04/26/20 10:00 04/29/20 09:42 Tab-A-Vit - PO 1 tab DAILY JONAS Administration Pantoprazole Sodium 40 mg 04/26/20 10:00 04/29/20 09:42 Protonix - PO 40 mg DAILY JONAS Administration Rosuvastatin Calcium 5 mg 04/26/20 22:00 04/28/20 22:16 Crestor - PO 5 mg HS JONAS Administration Valsartan 80 mg 04/26/20 10:00 04/29/20 09:42 Diovan - PO 80 mg BID JONAS Administration Vital Signs Period Temp Pulse Resp BP Sys/Nowak Pulse Ox Last 24 Hr 97.9 F-98.4 F 62-82 18-20 135-178/62-78 95-96 Constitutional: Yes: No Distress, Calm Eyes: Yes: Conjunctiva Clear Neck: Yes: Trachea Midline Respiratory: Yes: cta bl nl eff Gastrointestinal: Yes: Soft (NT) JVD: no Heart Sounds: Yes: S1, S2 Edema: no Peripheral Pulses WNL: Yes Neurological: Yes: Alert, Oriented CBC, BMP 04/29/20 06:33 04/29/20 06:33 nsr, nonspecific IVCD, no acute changes tele: sr Imaging - Results Chest X-ray: Image Reviewed EKG: Image Reviewed Assessment/Plan IMP: Acute on chronic diastolic CHF Uncontrolled HTN Solitary kidney with progressive renal artery stenosis, possibly causing the HTN and CHF Hx of CVA CAD PAF s/p PPM Chronic HTN CKD Hypercoag state s/p DVT Remote hx of pericardial effusion REC: 1. Acute diastolic CHF: -Tele/ daily weights and BMP to follow renal Fx -vol improved, chf sxs resolved, will change to po lasix now -Repeat echo shows preserved lvef, mod-sev mr (likely appears worse due to vol overload) -Cardiac enzymes neg, doubt ischemic etiology 2. Uncontrolled HTN: -Over last 3 months difficult to manage and she was switched from Coreg to Labetalol with increased dose requirement, most recently 250 BID -Admitted with SBP 200; d/c coreg and start Labetalol 300mg BID (has PPM so bradycardia not a concern). -Has not tolerated Amlodipine (edema); would not titrate ARB further due to YAQUELIN and CKD issues. -Has been on low dose hydralazine, but prefer to avoid if possible -Suspect uncontrolled HTN triggered CHF decompensation 3. YAQUELIN: progressive -Possibly driving HTN and CHF -Keep close eye on renal function as we diurese -plan for transfer when bed available to [facility] (dr noah haro) for planned renal artery stent 4. Hx CVA/AF/elevated [id number] -Vasc score: -Cont Eliquis 5. CAD: remote hx PCI -On single antiplatelet rx with Plavix; Crestor 6. PAF: s/p PPM -Routine office interrogations -On labetalol, Cardizem for rate control -Eliquis 7. Chronic HTN: as above. 8. CKD: as above 9. Hypercoag state: -s/p DVT -Followed by Heme and Rheum at [facility] and was approved for NOAC use 10. Pericardial effusion: remote hx, asx -no eff on echo here
[2020-04-29] MEDS ORDERED: FUROSEMIDE 40 MG TABLET (FP) PO SCH (14:00)
--- NOTE | 2020-04-29 17:05 | DS ---
Physical Exam: SUBJECTIVE: Patient seen and examined Patient is a 74 year old female with a significant past medical history of a-fib s/p PPM, DVT, CVA, HTN, HLD, GERD, DM, renal artery stenosis, AAA repair, (right nephrectomy?), left renal stent 2010, and lupus who presents to the ED on 04/26/2020 with 10 days increasing shortness of breath. Over last 2 months, her BP has been elevated and difficult to control requiring change from Coreg to Labetalol with increasing dose requirements and addition of Hydralazine. Patient referred back to vascular at [facility] and she was found to have progressive renal artery stenosis and was planned for angioplasty. Her BP was markedly elevated on admission and CXR showed increased PVC. Markedly elevated BNP (3000). Patient has improved on Lasix IV 40 bid. 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 HEAD: Normal with no signs of trauma. EYES: PERRL, extraocular movements intact, sclera anicteric, conjunctiva clear. No ptosis. ENT: Ears normal, nares patent, oropharynx clear without exudates, moist mucous membranes. NECK: Trachea midline, full range of motion, supple. LUNGS: Breath sounds equal, clear to auscultation bilaterally, no wheezes, diminished at the bases HEART: Regular rate and rhythm ABDOMEN: Soft, nontender, nondistended, normoactive bowel sounds EXTREMITIES: trace bilateral lower ext edema NEUROLOGICAL: Normal speech, gait not observed. PSYCH: Normal mood, normal affect. SKIN: Warm, dry, normal turgor, no rashes or lesions noted LABS Laboratory Results - last 24 hr 04/28/20 04/29/20 04/29/20 22:14 06:33 06:33 WBC 6.9 RBC 3.84 Hgb 11.5 Hct 35.2 MCV 91.5 MCH 29.9 MCHC 32.6 RDW 15.0 Plt Count 249 MPV 8.4 Absolute Neuts (auto) 3.9 Neutrophils % 56.8 Lymphocytes % 31.8 Monocytes % 9.5 Eosinophils % 1.4 Basophils % 0.5 Nucleated RBC % 0 Sodium 139 Potassium 3.6 Chloride 102 Carbon Dioxide 26 Anion Gap 11 BUN 18.6 H Creatinine 1.3 Est GFR (CKD-EPI)AfAm 46.47 Est GFR (CKD-EPI)NonAf 40.10 POC Glucometer 173 Random Glucose 187 H Calcium 9.6 Magnesium 2.3 Total Bilirubin 0.5 AST 20 ALT 19 Alkaline Phosphatase 90 Total Protein 6.7 Albumin 3.3 L 04/29/20 04/29/20 06:51 11:18 WBC RBC Hgb Hct MCV MCH MCHC RDW Plt Count MPV Absolute Neuts (auto) Neutrophils % Lymphocytes % Monocytes % Eosinophils % Basophils % Nucleated RBC % Sodium Potassium Chloride Carbon Dioxide Anion Gap BUN Creatinine Est GFR (CKD-EPI)AfAm Est GFR (CKD-EPI)NonAf POC Glucometer 193 240 Random Glucose Calcium Magnesium Total Bilirubin AST ALT Alkaline Phosphatase Total Protein Albumin HOSPITAL COURSE: Date of Admission:04/26/20 Date of Discharge: 04/29/20 Minutes to complete discharge: 60 Discharge Summary Problems reviewed: Yes Reason For Visit: CONGESTIVE HEART FAILURE, RESPIRATORY DISTRESS Condition: Stable - Instructions Referrals: Sony Johnson MD [Primary Care Provider] - Disposition: TRANSFER ACUTE CARE/OTHER HOSP - Home Medications Comprehensive Discharge Medication List: Ambulatory Orders Carvedilol [Coreg -] 25 mg PO BID 11/09/18 Clopidogrel Bisulfate [Plavix] 75 mg PO DAILY 11/09/18 Colchicine [Colcrys] 0.6 mg PO BID 11/09/18 Diltiazem HCl [Diltiazem 24Hr Cd] 240 mg PO DAILY 11/09/18 Donepezil HCl [Aricept] 5 mg PO DAILY 11/09/18 Dorzolamide HCl [Trusopt 2% -] 1 drop OU BID 11/09/18 Ferrous Sulfate 325 mg PO DAILY 11/09/18 Furosemide [Lasix -] 40 mg PO DAILY 11/09/18 Hydroxychloroquine Sulfate [Plaquenil] 200 mg PO DAILY 11/09/18 Latanoprost 1 drop OU HS 11/09/18 Linagliptin/Metformin HCl [Jentadueto 2.5 mg-500 mg Tab] 1 each PO BID 11/09/18 Multivitamin [Multiple Vitamins] 1 each PO DAILY 11/09/18 Ondansetron [Zofran -] 4 mg PO DAILY 11/09/18 Pantoprazole Sodium 40 mg PO DAILY 11/09/18 Rosuvastatin [Crestor -] 5 mg PO HS 11/09/18 Timolol [Betimol] 1 drop OU BID 11/09/18 Ubidecarenone [Co Q-10] 0 mg PO DAILY 11/09/18 Calcium (Oyster Shell) [Os-Gino 500MG -] 500 mg PO DAILY #60 tablet 11/21/18 Ergocalciferol [Vitamin D2] 50,000 unit PO Q7D@1000 #30 capsule 11/21/18 Isosorbide Mononitrate [Imdur -] 30 mg PO DAILY #60 tab.sr.24h 11/21/18 Valsartan [Diovan] 80 mg PO BID #60 tablet 11/21/18 Acetaminophen [Tylenol -] 500 mg PO Q6H 7 Days #25 tablet NS 02/23/20 Acetaminophen [Tylenol -] 500 mg PO Q8H #100 tablet 02/23/20 Lidocaine 5% Patch [Lidoderm Patch -] 1 patch TP DAILY #7 patch 02/23/20 Lidocaine 5% Patch [Lidoderm Patch -] 1 patch TP DAILY 7 Days #7 patch 02/23/20 Apixaban [Eliquis -] 5 mg PO BID 04/26/20 Problem List - Problems (1) Renal artery stenosis Assessment/Plan: hypertension in the setting of renal artery stenosis. monitor renal function closely. on lasix 40mg bid bp now stable Code(s): I70.1 - ATHEROSCLEROSIS OF RENAL ARTERY (2) Afib Assessment/Plan: controlled. on labetalol and eliquis 5mg bid Code(s): I48.91 - UNSPECIFIED ATRIAL FIBRILLATION Qualifiers: Atrial fibrillation type: paroxysmal Qualified Code(s): I48.0 - Paroxysmal atrial fibrillation (3) VILLA (acute kidney injury) Assessment/Plan: creatinine 1.3, stable. monitor daily. avoid nephrotoxic agents close monitor given IV lasix Code(s): N17.9 - ACUTE KIDNEY FAILURE, UNSPECIFIED (4) CAD (coronary artery disease) Assessment/Plan: on plavix on crestor 5mg Code(s): I25.10 - ATHSCL HEART DISEASE OF [place] CORONARY ARTERY W/O ANG PCTRS (5) CHF (congestive heart failure) Assessment/Plan: on lasix 40mg bid Code(s): I50.9 - HEART FAILURE, UNSPECIFIED (6) CKD (chronic kidney disease) Assessment/Plan: monitor daily Code(s): N18.9 - CHRONIC KIDNEY DISEASE, UNSPECIFIED (7) Prophylactic measure Assessment/Plan: on eliquis Code(s): Z29.9 - ENCOUNTER FOR PROPHYLACTIC MEASURES, UNSPECIFIED (8) Abdominal pain Assessment/Plan: resolved Code(s): R10.9 - UNSPECIFIED ABDOMINAL PAIN (9) Acute on chronic systolic (congestive) heart failure Assessment/Plan: on lasix bid monitor weights, labs, vitals Code(s): I50.23 - ACUTE ON CHRONIC SYSTOLIC (CONGESTIVE) HEART FAILURE (10) Diabetes Assessment/Plan: on novlog. monitor bgms Code(s): E11.9 - TYPE 2 DIABETES MELLITUS WITHOUT COMPLICATIONS Qualifiers: Diabetes mellitus type: type 2 (11) Pericardial effusion Assessment/Plan: hx of pericardial effusion. echo w/o evidence of pericardial effusion. Code(s): I31.3 - PERICARDIAL EFFUSION (NONINFLAMMATORY) This patient is new to me today: Yes Date on this admission: 05/06/20 Emergency Visit: Yes ED Registration Date: 04/26/20 Care time: The patient presented to the Emergency Department on the above date and was hospitalized for further evaluation of their emergent condition. Critical Care patient: No - Discharge Referral Referred to [facility] Med P.C.: No
== END 2020-04-29 14:23 | disposition short-term general hospital (02) | DRG 698 ==
LOC: JER 01:02 → JERBED 01:17 → J4W 07:17
PROVIDERS: ADMIT Internal Medicine; ATTEND Nurse Practitioner Family
DX: I70.1 Atherosclerosis of renal artery (principal); I50.33 Acute on chronic diastolic (congestive) heart failure; J96.01 Acute respiratory failure with hypoxia; I13.0 Hypertensive heart and chronic kidney disease with heart failure and stage 1 through stage 4 chronic kidney disease, or unspecified chronic kidney disease; I69.351 Hemiplegia and hemiparesis following cerebral infarction affecting right dominant side; D68.59 Other primary thrombophilia; N17.9 Acute kidney failure, unspecified; I48.0 Paroxysmal atrial fibrillation; I16.0 Hypertensive urgency; Z95.0 Presence of cardiac pacemaker; Z86.718 Personal history of other venous thrombosis and embolism; E78.5 Hyperlipidemia, unspecified; K21.9 Gastro-esophageal reflux disease without esophagitis; Z88.0 Allergy status to penicillin; Z79.01 Long term (current) use of anticoagulants; E66.9 Obesity, unspecified; Z87.891 Personal history of nicotine dependence; Z79.84 Long term (current) use of oral hypoglycemic drugs; F03.90 Unspecified dementia, unspecified severity, without behavioral disturbance, psychotic disturbance, mood disturbance, and anxiety; E11.22 Type 2 diabetes mellitus with diabetic chronic kidney disease; N18.9 Chronic kidney disease, unspecified; I25.10 Atherosclerotic heart disease of native coronary artery without angina pectoris; Z68.30 Body mass index [BMI] 30.0-30.9, adult
CPT/HCPCS: 36415; 71045-TC-FY; 80048; 80053; 81003; 82550; 82962; 83735; 83880; 84484; 85025; 85610; 85730; 93005; 93010; 93306-TC; 94660; 99285-25; U0003

== ENCOUNTER 2020-05-07 01:14 | Inpatient (IN) | payer OTHER ==
[2020-05-07] MEDS ORDERED: FUROSEMIDE 40 MG/4 ML INJECTABLE VIAL IVPUSH ONE (01:21)
[2020-05-07] MEDS ORDERED: NITROGLYCERIN 2% OINTMENT - 1GM PACKET TD ONE (01:22)
[2020-05-07] MEDS ORDERED: ACETAMINOPHEN 1000 MG/100 ML VIAL (NON FORMULARY) IVPB ONE ×2 (01:23→14:45)
--- NOTE | 2020-05-07 01:23 | PDOC ---
Attending Attestation - Resident Resident Name: Romero Lerma - ED Attending Attestation I have performed the following: I have examined & evaluated the patient, The case was reviewed & discussed with the resident, I agree w/resident's findings & plan, Exceptions are as noted - HPI HPI: 05/07/20 01:22 74 yo female BIBA for respiratory distress and placed on bipap upon arrival Discharge - Follow up/Referral Referrals: Sony Johnson MD [Primary Care Provider] - - Patient Discharge Instructions - Post Discharge Activity
--- NOTE | 2020-05-07 01:32 | PDOC ---
Documentation entered by Allison Radford SCRIBE, acting as scribe for Yasmeen Love MD. Yasmeen Love MD: This documentation has been prepared by the Karma graff Sydney, SCRIBE, under my direction and personally reviewed by me in its entirety. I confirm that the documentation accurately reflects all work, treatment, procedures, and medical decision making performed by me. Attending Attestation - Resident Resident Name: Romero Lerma - ED Attending Attestation I have performed the following: I have examined & evaluated the patient, The case was reviewed & discussed with the resident, I agree w/resident's findings & plan, Exceptions are as noted - HPI HPI: 05/07/20 01:23 this 74 yo female BIBA from home for respiratory distress and was placed on BIPAP upon arrival , BIPAP settings ST 14/8,rate=16,100% o2 PMH 05/07/20 01:55 - Physicial Exam PE: 05/07/20 01:29 wnwd petite 74 yo female in respiratory distress head ncat neck supple lungs +rales cvs [id number] abdomen nontender skin warm and dry extremities no pitting edema, there is an ecchymosis on her upper rt thigh neuro alert, good motor strength 5/5 b/l 05/07/20 01:45 - Medical Decision Making 05/07/20 01:51 History hypertension, solitary kidney with progressive renal artery stenosis, CVA, coronary artery disease, paroxysmal A. fib, pacemaker, chronic kidney disease and lupus Patient was seen at [facility] last week for renal artery stent placement imp acute on chronic CHF/ admit 05/07/20 01:54 pt received lasix 40 mg IV and her current AD=547/90 Discharge - Discharge Information Problems reviewed: Yes Clinical Impression/Diagnosis: Heart failure Qualifiers: Heart failure type: unspecified Heart failure chronicity: unspecified Qualified Code(s): I50.9 - Heart failure, unspecified Condition: Stable - Follow up/Referral - Patient Discharge Instructions - Post Discharge Activity
--- NOTE | 2020-05-07 01:33 | PDOC ---
History of Present Illness - General Chief Complaint: Congestive Heart Failure Stated Complaint: DIFFICULTY BREATHING Time Seen by Provider: 05/07/20 01:21 History Source: Patient Exam Limitations: Clinical Condition - History of Present Illness Initial Comments: Hx limited bc patient speaks Lithuanian - Daughter speaks broken Lithuanian and can help with the hx Daughter number: [phone] Alison is a 74 yo Lithuanian speaking female who presents to the [facility] er BIBEMS in respiratory distress on the Non-rebreather. She was immediately brought into room 3 where she was placed on the gurney while the primary survey began. Airway was in tact as patient said her name and that she was in the hospital. She had bilateral breath sounds with rales midway through both lung franz. Her circulation was deemd in tact with with elevated BP and strong pulses in all 4 extremities. She was GCS 15 upon arrival into the ER. Exposure rodriguez, she has a hematoma in her right groin region which is very tender to palpation. The patient's daughter states the patient had an unspecified procedure at [facility] 3 days prior. The patient was immediately given nitropaste and placed on BiPap in the ER with remarkable turnaround time. Within ten minutes of being on the BiPap machine the patient endorsed significant relief and started sitting comfortably in the bed. HPI per daughter: Today - Patient was fine, bp 170/93 this morning. - [facility] on Wednesday - only has left kidney. They put a stent in the right artery and it opened to 80% - Has a UTI - Was discharged from [facility] on Wednesday. Has alot of pain in the right groin, and recommends doing a CT scan on her right groin to see if she is bleeding. - [place] told patient today the mitral valve was leaking - Saw Dr. Johnson today at 4 pm and it was determined the patient is fine other than a small amount of water in the lungs and mild fatigue. - When she got home from Dr. Johnson she ate something, and then when she went to bed, the 31/05 home attending called the daughter and said the patient is not able to breathe. This was very sudden in nature and only occurred when she lay down to goto bed. Denies fevers, chills, nausea, vomiting, headache, neck pain, blurry vision, abdominal pain, back pain, dysuria, frequency, or urgency PCP: Sony Johnson Cards: [place] Social Hx: Former smoker, quit 20+ years ago. Denies current toxic habits. 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 No formal DNR/DNI charts signed. Past History - Medical History Allergies/Adverse Reactions: Allergies Allergy/AdvReac Type Severity Reaction Status Date / Time aspirin Allergy Severe Verified 04/26/20 01:08 Penicillins Allergy Severe Verified 04/26/20 01:08 diclofenac Allergy Verified 04/26/20 01:08 shellfish derived Allergy Verified 04/26/20 01:08 lactose AdvReac Verified 04/26/20 01:08 peanut Allergy Unknown Rash Uncoded 04/26/20 01:08 iv contrast Allergy Uncoded 04/26/20 01:08 Home Medications: Ambulatory Orders Carvedilol [Coreg -] 25 mg PO BID 11/09/18 Clopidogrel Bisulfate [Plavix] 75 mg PO DAILY 11/09/18 Colchicine [Colcrys] 0.6 mg PO BID 11/09/18 Diltiazem HCl [Diltiazem 24Hr Cd] 240 mg PO DAILY 11/09/18 Donepezil HCl [Aricept] 5 mg PO DAILY 11/09/18 Dorzolamide HCl [Trusopt 2% -] 1 drop OU BID 11/09/18 Ferrous Sulfate 325 mg PO DAILY 11/09/18 Furosemide [Lasix -] 40 mg PO DAILY 11/09/18 Hydroxychloroquine Sulfate [Plaquenil] 200 mg PO DAILY 11/09/18 Latanoprost 1 drop OU HS 11/09/18 Linagliptin/Metformin HCl [Jentadueto 2.5 mg-500 mg Tab] 1 each PO BID 11/09/18 Multivitamin [Multiple Vitamins] 1 each PO DAILY 11/09/18 Ondansetron [Zofran -] 4 mg PO DAILY 11/09/18 Pantoprazole Sodium 40 mg PO DAILY 11/09/18 Rosuvastatin [Crestor -] 5 mg PO HS 11/09/18 Timolol [Betimol] 1 drop OU BID 11/09/18 Ubidecarenone [Co Q-10] 0 mg PO DAILY 11/09/18 Calcium (Oyster Shell) [Os-Gino 500MG -] 500 mg PO DAILY #60 tablet 11/21/18 Ergocalciferol [Vitamin D2] 50,000 unit PO Q7D@1000 #30 capsule 11/21/18 Isosorbide Mononitrate [Imdur -] 30 mg PO DAILY #60 tab.sr.24h 11/21/18 Valsartan [Diovan] 80 mg PO BID #60 tablet 11/21/18 Acetaminophen [Tylenol -] 500 mg PO Q6H 7 Days #25 tablet NS 02/23/20 Acetaminophen [Tylenol -] 500 mg PO Q8H #100 tablet 02/23/20 Lidocaine 5% Patch [Lidoderm Patch -] 1 patch TP DAILY #7 patch 02/23/20 Lidocaine 5% Patch [Lidoderm Patch -] 1 patch TP DAILY 7 Days #7 patch 02/23/20 Apixaban [Eliquis -] 5 mg PO BID 04/26/20 Anemia: No Asthma: No Cardiac Disorders: Yes (PACEMAKER, AAA 5CM, AFIB, PERICARDITIS, PERICARDIAL EFFUSION) CVA: Yes (RIGHT ARM AND LEG WEAKNESS RESIDUAL) COPD: No CHF: Yes DVT: No Diabetes: Yes 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) GI Disorders: Yes (constipation, GERD,IBS) HTN: Yes Hypercholesterolemia: Yes Thyroid Disease: No - Surgical History Cardiac Surgery: Yes (PACEMAKER (2010) ; cath 09/24, AAA repair) - Immunization History Immunization Up to Date: Yes - Psycho-Social/Smoking History Smoking History: Never smoked Have you smoked in the past 12 months: No Number of Cigarettes Smoked Daily: 5 If you are a former smoker, when did you quit?: 1993 Review of Systems - Review of Systems Able to Perform ROS?: Yes Comments:: CONSTITUTIONAL: Absent: fever, no chills, no fatigue EYES: Absent: visual changes ENT: Absent: ear pain, no sore throat CARDIOVASCULAR: Absent: chest pain, no palpitations RESPIRATORY: Present: Cough, SOB GI: Absent: abdominal pain, no nausea, no vomiting, no constipation, no diarrhea GENITOURINARY: Absent: dysuria, no frequency, no hematuria MUSKULOSKELETAL: Present: Arthralgia Absent: back pain, no myalgia SKIN: Absent: rash NEURO: Absent: headache *Physical Exam - Vital Signs Last Vital Signs Temp Pulse Resp BP Pulse Ox 100 05/07/20 01:25 - Physical Exam This is the PE taken upon arrival to the ED GENERAL: Patient in severe respiratory distress HEENT: Normocephalic, atraumatic. PERRL, EOM intact. CARDIOVASCULAR: Normal S1, S2. Regular rate and rhythm. PULMONARY: bilateral rales. No wheezing or rhonchi. ABDOMEN: Soft, non-distended, non-tender. EXTREMITIES: Normal ROM in all four extremities. No gross deformities. SKIN: There is a hematoma in the right groin region which is TTP. Warm, dry. No rash NEUROLOGICAL: Alert, awake, appropriate. Cranial nerves 2-12 intact. No deficits to light touch in face, upper extremities and lower extremities. No motor deficits in the in face, upper extremities and lower extremities. Normal speech. ED Treatment Course - LABORATORY CBC & Chemistry Diagram: 05/07/20 00:50 05/07/20 00:50 - RADIOLOGY Radiology Studies Ordered: Category Date Time Status CHEST X-RAY PORTABLE* [RAD] Stat Radiology 05/07/20 01:22 Ordered - Medications Given in the ED: ED Medications Discontinued Medications Generic Name Dose Route Start Last Admin Trade Name Freq PRN Reason Stop Dose Admin Nitroglycerin 1 inch 05/07/20 01:22 05/07/20 01:33 Nitro-Bid 2% Paste - TD 05/07/20 01:23 1 inch ONCE ONE Administration Medical Decision Making - Critical Care Time Total Critical Care Time (minutes): 36 Critical Care Statement: The care of this patient involved high complexity decision making to prevent further life threatening deterioration of the patient's condition and/or to evaluate & treat vital organ system(s) failure or risk of failure. - Medical Decision Making Hx limited bc patient speaks Lithuanian - Daughter speaks broken Lithuanian and can help with the hx Daughter number: [phone] Alison is a 74 yo Lithuanian speaking female who presents to the [facility] er BIBEMS in respiratory distress on the Non-rebreather. She was immediately brought into room 3 where she was placed on the gurney while the primary survey began. Airway was in tact as patient said her name and that she was in the hospital. She had bilateral breath sounds with rales midway through both lung franz. Her circulation was deemd in tact with with elevated BP and strong pulses in all 4 extremities. She was GCS 15 upon arrival into the ER. Exposure rodriguez, she has a hematoma in her right groin region which is very tender to palpation. The patient's daughter states the patient had an unspecified procedure at [facility] 3 days prior. The patient was immediately given nitropaste and placed on BiPap in the ER with remarkable turnaround time. Within ten minutes of being on the BiPap machine the patient endorsed significant relief and started sitting comfortably in the bed. HPI per daughter: Today - Patient was fine, bp 170/93 this morning. - [facility] on Wednesday - only has left kidney. They put a stent in the right artery and it opened to 80% - Has a UTI - Was discharged from [facility] on Wednesday. Has alot of pain in the right groin, and recommends doing a CT scan on her right groin to see if she is bleeding. - [place] told patient today the mitral valve was leaking - Saw Dr. Johnson today at 4 pm and it was determined the patient is fine other than a small amount of water in the lungs and mild fatigue. - When she got home from Dr. Johnson she ate something, and then when she went to bed, the 31/05 home attending called the daughter and said the patient is not able to breathe. This was very sudden in nature and [facility] occurred [facility] Vital Signs Temp Pulse Resp BP Pulse Ox 98.7 F 66 28 H 177/69 H 100 05/07/20 02:00 05/07/20 02:00 05/07/20 02:00 05/07/20 02:00 05/07/20 02:00 DDx IBNLT: Heart Failure, ACS, Pneumothorax, anemia, electrolyte/metabolic disturbance Labs: supportive of heart failure with elevated BNP - 40 mg of lasix Re-assessment: Patient resting comfortably in bed on the Bipap machine in no acute distress Dispo: Admission to Tele - Spoke with Dr. Goddard who accepts patient for admission to her service - cards consult to Dr. Storey Discharge - Discharge Information Problems reviewed: Yes Clinical Impression/Diagnosis: Heart failure Qualifiers: Heart failure type: unspecified Heart failure chronicity: unspecified Qualified Code(s): I50.9 - Heart failure, unspecified Condition: Stable - Admission Yes - Follow up/Referral - Patient Discharge Instructions - Post Discharge Activity
[2020-05-07] MEDS ORDERED: ACETAMINOPHEN INJECTION 0 ML IVPB ONE (01:36)
[2020-05-07] MEDS ORDERED: FUROSEMIDE 40 MG/4 ML INJECTABLE VIAL ONE (01:36)
[2020-05-07 01:59] LABS: BASO % 0.5 % (0-2.0); EOS % 2.1 % (0-4.5); HEMATOCRIT 32.9 % (32.4-45.2); HEMOGLOBIN 10.7 GM/dL (10.7-15.3); LYMPH % 25.8 % (8-40); MCH 30.3 pg (25.7-33.7); MCHC 32.6 g/dl (32.0-36.0); MEAN CELL VOLUME 92.8 fl (80-96); MEAN PLT VOLUME 9.3 fl (7.5-11.1); MONO % 8.8 % (3.8-10.2); NEUT % 62.8 % (42.8-82.8); PLATELET COUNT 228 K/MM3 (134-434); RBC 3.54 M/mm3 (3.60-5.2); RDW 15.6 % (11.6-15.6); WHITE BLOOD COUNT 6.8 K/mm3 (4.0-10.0)
[2020-05-07 02:11] LABS: INR 1.63 (0.83-1.09); PROTHROMBIN TIME (PATIENT) 19.3 SEC (9.7-13.0)
[2020-05-07 02:13] LABS: ACTIVATED PTT 36.1 SECONDS (25.2-36.5)
[2020-05-07 02:21] VITALS: BMI 37.8
[2020-05-07 02:23] LABS: ALBUMIN 3.3 g/dl (3.4-5.0); ALK PHOS 107 U/L (45-117); ANION GAP 9 MMOL/L (8-16); BILIRUBIN,TOTAL 0.6 mg/dL (0.2-1); CALCIUM 9.1 mg/dL (8.5-10.1); CHLORIDE 109 mmol/L (98-107); CO2 24 mmol/L (21-32); CREATININE 1.3 mg/dL (0.55-1.3); GLUCOSE,RANDOM 148 mg/dL (74-106); MAGNESIUM 2.2 mg/dL (1.8-2.4); N-TERMINAL BNP 3627.1 pg/ml (5-450); POTASSIUM 4.4 mmol/L (3.5-5.1); SGOT/AST 29 U/L (15-37); SGPT/ALT 23 U/L (13-61); SODIUM 142 mmol/L (136-145); TOT PROT 7.4 g/dl (6.4-8.2)
[2020-05-07] MEDS ORDERED: ALPRAZolam 2 MG TABLET PO ONE (03:07)
[2020-05-07] MEDS ORDERED: ALPRAZolam 1 MG TABLET ONE (03:21)
[2020-05-07] MEDS ORDERED: ACETAMINOPHEN INJECTION 100 ML IVPB ONE ×2 (14:49→15:52)
--- NOTE | 2020-05-07 15:38 | PN ---
Progress Note (short form) - Note Progress Note: Patient was recently discharged from here admitted with CHF found to have progressive severe YAQUELIN, uncontrolled HTN leading to CHF. Was transferred to [facility] where she was followed for her renal artery stenosis (Dr. Ramon) and underwent successful stent of high grade ostial stenosis with rapid decline in her BP prior to discharge. Yesterday, daughter called with one isolated elevated BP reading and with reported pain at groin site. Patient then had CT scan done at PMD office to check for RP bleed, results pending. Labs now do not indicate sig blood loss. Her discharge cardiac meds have been entered. Full consult to follow by Dr. Neto moseley today and tomorrow.
--- NOTE | 2020-05-07 15:42 | CON.CARD ---
Cardiology Consult (text) - Consultation Consultation Note: Consult Specialty:: Cardiology Referred by:: medicine Reason for Consultation:: SOB - History of Present Illness Chief Complaint: SOB History of Present Illness: 74F h/o afib s/p PPM (medtronic), CVA, Equivocal Lupus Anticoagulant AB (followed by Rheum and Heme at [facility]), DVT, HTN, renal artery stenosis, CKD, hx pericardial effusion, chronic diastolic HF, AAA s/p EVAR, dementia admitted for worsening SOB for last few days. Of note recently admitted with CHF, found to have progressive YAQUELIN, uncontrolled HTN leading to CHF. Was transfered to [facility] where she underwent stent of high grade ostial renal artery stenosis with improved BP on discharge. Had CT scan done yesterday at PMD office to eval for RP bleed, results pending, had pain at groin site. Came here with shortness of breath, improved now with IV lasix. Was initially on NRB, now on nasal cannula. no chest pain, palps, breathing better. 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: CVA Cardio/Vascular: Yes: AFIB, HTN, Hyperlipdemia, Other (pericarditis Pericardial effusion) Gastrointestinal: Yes: GERD Renal/: Yes: Other (Renal artery stenosis) Endocrine: Yes: Diabetes Mellitus - Past Surgical History Past Surgical History: Yes: , Permanent Pacemaker - Alcohol/Substance Use Hx Alcohol Use: No - Smoking History Smoking history: Never smoked Have you smoked in the past 12 months: No Aproximately how many cigarettes per day: 5 If you are a former smoker, when did you quit?: 1993 - Social History Usual Living Arrangement: [facility] ADL: Family Assistance History of Recent Travel: No Home Medications - Allergies Allergies/Adverse Reactions: Allergies Allergy/AdvReac Type Severity Reaction Status Date / Time aspirin Allergy Severe Verified 04/26/20 01:08 Penicillins Allergy Severe Verified 04/26/20 01:08 diclofenac Allergy Verified 04/26/20 01:08 shellfish derived Allergy Verified 04/26/20 01:08 lactose AdvReac Verified 04/26/20 01:08 peanut Allergy Unknown Rash Uncoded 04/26/20 01:08 iv contrast Allergy Uncoded 04/26/20 01:08 - Home Medications Home Medications: Ambulatory Orders Carvedilol [Coreg -] 25 mg PO BID 11/09/18 Clopidogrel Bisulfate [Plavix] 75 mg PO DAILY 11/09/18 Colchicine [Colcrys] 0.6 mg PO BID 11/09/18 Diltiazem HCl [Diltiazem 24Hr Cd] 240 mg PO DAILY 11/09/18 Donepezil HCl [Aricept] 5 mg PO DAILY 11/09/18 Dorzolamide HCl [Trusopt 2% -] 1 drop OU BID 11/09/18 Ferrous Sulfate 325 mg PO DAILY 11/09/18 Furosemide [Lasix -] 40 mg PO DAILY 11/09/18 Hydroxychloroquine Sulfate [Plaquenil] 200 mg PO DAILY 11/09/18 Latanoprost 1 drop OU HS 11/09/18 Linagliptin/Metformin HCl [Jentadueto 2.5 mg-500 mg Tab] 1 each PO BID 11/09/18 Multivitamin [Multiple Vitamins] 1 each PO DAILY 11/09/18 Ondansetron [Zofran -] 4 mg PO DAILY 11/09/18 Pantoprazole Sodium 40 mg PO DAILY 11/09/18 Rosuvastatin [Crestor -] 5 mg PO HS 11/09/18 Timolol [Betimol] 1 drop OU BID 11/09/18 Ubidecarenone [Co Q-10] 0 mg PO DAILY 11/09/18 Calcium (Oyster Shell) [Os-Gino 500MG -] 500 mg PO DAILY #60 tablet 11/21/18 Ergocalciferol [Vitamin D2] 50,000 unit PO Q7D@1000 #30 capsule 11/21/18 Isosorbide Mononitrate [Imdur -] 30 mg PO DAILY #60 tab.sr.24h 11/21/18 Valsartan [Diovan] 80 mg PO BID #60 tablet 11/21/18 Acetaminophen [Tylenol -] 500 mg PO Q6H 7 Days #25 tablet NS 02/23/20 Acetaminophen [Tylenol -] 500 mg PO Q8H #100 tablet 02/23/20 Lidocaine 5% Patch [Lidoderm Patch -] 1 patch TP DAILY #7 patch 02/23/20 Lidocaine 5% Patch [Lidoderm Patch -] 1 patch TP DAILY 7 Days #7 patch 02/23/20 Apixaban [Eliquis -] 5 mg PO BID 04/26/20 Family Medical History Family History: Unremarkable Review of Systems Findings/Remarks: see HPI - Review of Systems Constitutional: reports: No Symptoms Eyes: reports: No Symptoms HENT: reports: No Symptoms Cardiovascular: reports: Shortness of Breath Respiratory: reports: SOB, SOB on Exertion Gastrointestinal: denies: No Symptoms, Abdominal Pain, Bloating, Constipation, Diarrhea, Dysphagia, Indigestion, Melena, Nausea, Rectal Bleeding, Vomiting, Vomiting Blood, Other Genitourinary: denies: No Symptoms, Burning, Discharge, Dysuria, Flank Pain, Frequency, Hematuria, Incontinence, Lesions, Menses, Pain, Testicular Mass, Testicular Pain, Testicular Swelling, Urgency, Vaginal Bleeding, Other Musculoskeletal: denies: No Symptoms, Back Pain, Crepitus, Decreased ROM, Extremity Pain, Joint Pain, Joint Swelling, Muscle Pain, Muscle Cramps, Muscle Weakness, Other Integumentary: denies: No Symptoms, Blister, Bruising, Change in Color, Eczema, Erythema, Incision, Lesions, Lump, Pallor, Pruritis, Rash, Wound, Other Neurological: denies: No Symptoms, Change in LOC, Change in Speech, Confusion, Dizziness, Headache, Incoordination, Numbness, Parasthesia, Pre-Existing Deficit, Seizure, Syncope, Tremors, Unsteady Gait, Weakness, Other Endocrine: denies: No Symptoms, Excessive Sweating, Flushing, Increased Hunger, Increased Thirst, Intolerance to Cold, Intolerance to Heat, Unexplained Weight Gain, Unexplained Weight Loss, Other Hematology/Lymphatic: denies: No Symptoms, Easily Bruised, Excessive Bleeding, Swollen Glands, Other - Risk Factors Known Risk Factors: Yes: Hypertension Vital Signs: Vital Signs Temperature 97.5 F L 04/26/20 04:45 Pulse Rate 63 04/26/20 04:45 Respiratory Rate 13 04/26/20 04:45 Blood Pressure 173/73 H 04/26/20 04:45 O2 Sat by Pulse Oximetry (%) 100 04/26/20 04:45 Constitutional: Yes: No Distress, Calm Eyes: Yes: Conjunctiva Clear, EOM Intact HENT: Yes: Atraumatic, Normocephalic Neck: Yes: Trachea Midline Respiratory: Yes: Other (rales at bases 1/3 up) Gastrointestinal: Yes: Soft (NT) JVD: Yes Heart Sounds: Yes: S1, S2 Edema: Yes Edema: LLE: 1+, RLE: 1+ Peripheral Pulses WNL: Yes Neurological: Yes: Alert, Oriented - Other Data Labs, Other Data: CBC, BMP 04/26/20 01:14 04/26/20 01:14 INR, PTT INR 1.67 (0.83-1.09) H 04/26/20 01:14 Troponin, BNP 04/26/20 04/26/20 01:14 05:20 Troponin I < 0.02 0.02 B-Natriuretic Peptide 3812.1 H Troponin, BNP 04/26/20 04/26/20 01:14 05:20 Troponin I < 0.02 0.02 B-Natriuretic Peptide 3812.1 H nsr, nonspecific IVCD, no acute changes CXR: mild congestion Assessment/Plan IMP: Acute on chronic diastolic CHF Uncontrolled HTN Solitary kidney with progressive renal artery stenosis, possibly causing the HTN and CHF Hx of CVA CAD PAF s/p PPM Chronic HTN CKD Hypercoag state s/p DVT Remote hx of pericardial effusion REC: 1. Acute diastolic CHF: -improved with IV lasix, continue lasix 40 mg IV BID - monitor Cr, lytes, daily weights - repeat echo when euvolemic to reevaluate mitral regurgitation 2. HTN - improving after renal artery stent although has been difficult to manage - cont current meds from discharge from [facility] 3. YAQUELIN - s/p renal artery stent 4. Hx CVA/AF/elevated [id number] -Vasc score: -Cont Eliquis 5. CAD: remote hx PCI -On single antiplatelet rx with Plavix; Crestor 6. PAF: s/p PPM -Routine office interrogations - monitoring on tele -On labetalol, Cardizem for rate control -Eliquis 7. Chronic HTN: as above. 8. CKD: as above, close monitoring renal fx as we diurese with daily BMP 9. Hypercoag state: -s/p DVT -Followed by Heme and Rheum at [facility] and was approved for NOAC use 10. Pericardial effusion: remote hx, asx -no effusion on recent echo
[2020-05-07] MEDS ORDERED: ISOSORBIDE MONONITRATE 60 MG TAB.SR.24H (FP) PO ONE (15:51)
[2020-05-07] MEDS: ISOSORBIDE MONONITRATE 30 MG TAB.SR.24H (FP) PO SCH (16:17)
[2020-05-07] MEDS: CLOPIDOGREL BISULFATE 75 MG TABLET (FP) PO SCH (16:17)
--- NOTE | 2020-05-07 21:44 | HP ---
Admitting History and Physical - Admission History of Present Illness: Pt is a 74 y/o female w/ PMH significant for afib(s/p PPM (medtronic), CVA, Equivocal Lupus Anticoagulant AB (followed by Rheum and Heme at [facility]), DVT, HTN, renal artery stenosis, CKD, pericardial effusion, chronic diastolic CHF, AAA(s/p EVAR) and dementia. Pt presented to the ER for worsening SOB for last few days. Pt recently admitted with CHF, found to have progressive YAQUELIN, uncontrolled HTN leading to CHF and was transfered to [facility] where she underwent stent of high grade ostial renal artery stenosis. 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: CVA Cardiovascular: Yes: AFIB, HTN, Hyperlipdemia, Other (pericarditis Pericardial effusion) Gastrointestinal: Yes: GERD Renal/: Yes: Other (Renal artery stenosis) Heme/Onc: Yes: Other (DVT) Endocrine: Yes: Diabetes Mellitus - Past Surgical History Past Surgical History: Yes: , Permanent Pacemaker - Smoking History Smoking history: Never smoked Have you smoked in the past 12 months: No Aproximately how many cigarettes per day: 5 If you are a former smoker, when did you quit?: 1993 - Alcohol/Substance Use Hx Alcohol Use: No - Social History ADL: Family Assistance History of Recent Travel: No Home Medications - Allergies Allergies/Adverse Reactions: Allergies Allergy/AdvReac Type Severity Reaction Status Date / Time aspirin Allergy Severe Verified 04/26/20 01:08 Penicillins Allergy Severe Verified 04/26/20 01:08 diclofenac Allergy Verified 04/26/20 01:08 shellfish derived Allergy Verified 04/26/20 01:08 lactose AdvReac Verified 04/26/20 01:08 peanut Allergy Unknown Rash Uncoded 04/26/20 01:08 iv contrast Allergy Uncoded 04/26/20 01:08 - Home Medications Home Medications: Ambulatory Orders Clopidogrel Bisulfate [Plavix] 75 mg PO DAILY 11/09/18 Diltiazem HCl [Diltiazem 24Hr Cd] 240 mg PO DAILY 11/09/18 Dorzolamide HCl [Trusopt 2% -] 1 drop OU BID 11/09/18 Ferrous Sulfate 325 mg PO DAILY 11/09/18 Furosemide [Lasix -] 40 mg PO DAILY 11/09/18 Hydroxychloroquine Sulfate [Plaquenil] 200 mg PO DAILY 11/09/18 Latanoprost 1 drop OU HS 11/09/18 Linagliptin/Metformin HCl [Jentadueto 2.5 mg-500 mg Tab] 1 each PO BID 11/09/18 Multivitamin [Multiple Vitamins] 1 each PO DAILY 11/09/18 Ondansetron [Zofran -] 4 mg PO DAILY 11/09/18 Pantoprazole Sodium 40 mg PO DAILY 11/09/18 Rosuvastatin [Crestor -] 5 mg PO HS 11/09/18 Timolol [Betimol] 1 drop OU BID 11/09/18 Isosorbide Mononitrate [Imdur -] 30 mg PO DAILY #60 tab.sr.24h 11/21/18 Acetaminophen [Tylenol -] 500 mg PO Q6H 7 Days #25 tablet NS 02/23/20 Acetaminophen [Tylenol -] 500 mg PO Q8H #100 tablet 02/23/20 Apixaban [Eliquis -] 5 mg PO BID 04/26/20 Alprazolam [Xanax] 1.5 mg PO HS 05/07/20 Cholecalciferol (Vitamin D3) [Vitamin D3] 400 unit PO DAILY 05/07/20 Labetalol HCl [Normodyne -] 400 mg PO BID 05/07/20 Family Medical History Family History: Unremarkable Review of Systems - Review of Systems Constitutional: reports: Weakness Eyes: reports: No Symptoms HENT: reports: No Symptoms Neck: reports: No Symptoms Cardiovascular: reports: Shortness of Breath Respiratory: reports: SOB Genitourinary: reports: Other (Rt groin pain) Physical Examination Vital Signs: Vital Signs Temperature 97.9 F 05/07/20 18:54 Pulse Rate 65 05/07/20 18:54 Respiratory Rate 18 05/07/20 18:54 Blood Pressure 145/81 05/07/20 18:54 O2 Sat by Pulse Oximetry (%) 100 05/07/20 17:54 Constitutional: Yes: Pallor Eyes: Yes: WNL HENT: Yes: WNL, Atraumatic Neck: Yes: WNL, Supple Cardiovascular: Yes: WNL Respiratory: Yes: Rales Gastrointestinal: Yes: WNL, Normal Bowel Sounds, Soft, Abdomen, Obese Edema: LLE: 1+, RLE: 1+ Neurological: Yes: WNL, Alert, Oriented ...Motor Strength: WNL Labs: CBC, BMP 05/07/20 00:50 05/07/20 00:50 Problem List - Problems (1) Acute on chronic systolic (congestive) heart failure Assessment/Plan: Cont IV lasix Monitor electrolytes Cont BIPAP prn BNP elevated > 3000 Code(s): I50.23 - ACUTE ON CHRONIC SYSTOLIC (CONGESTIVE) HEART FAILURE (2) Afib Assessment/Plan: Cont eliquis Code(s): I48.91 - UNSPECIFIED ATRIAL FIBRILLATION Qualifiers: Atrial fibrillation type: paroxysmal Qualified Code(s): I48.0 - Paroxysmal atrial fibrillation (3) Anemia Assessment/Plan: Monitor H/H Code(s): D64.9 - ANEMIA, UNSPECIFIED (4) Antiphospholipid antibody syndrome Code(s): D68.61 - ANTIPHOSPHOLIPID SYNDROME (5) CAD (coronary artery disease) Assessment/Plan: Cont plavix Code(s): I25.10 - ATHSCL HEART DISEASE OF [place] CORONARY ARTERY W/O ANG PCTRS (6) Diabetes Code(s): E11.9 - TYPE 2 DIABETES MELLITUS WITHOUT COMPLICATIONS Qualifiers: Diabetes mellitus type: type 2 (7) HLD (hyperlipidemia) Code(s): E78.5 - HYPERLIPIDEMIA, UNSPECIFIED (8) HTN (hypertension) Code(s): I10 - ESSENTIAL (PRIMARY) HYPERTENSION Qualifiers: Hypertension type: essential hypertension Qualified Code(s): I10 - Essential (primary) hypertension (9) Renal artery stenosis Code(s): I70.1 - ATHEROSCLEROSIS OF RENAL ARTERY
[2020-05-07] MEDS: ROSUVASTATIN CA 5 MG TABLET (FP) PO SCH (21:46)
[2020-05-07] MEDS: APIXABAN 5 MG TABLET PO SCH (21:46)
[2020-05-07] MEDS: LABETALOL HCL 200 MG TABLET (FP) PO SCH (21:46)
[2020-05-08] MEDS: FUROSEMIDE 40 MG/4 ML INJECTABLE VIAL IVPUSH SCH ×2 (06:11→13:22)
[2020-05-08] MEDS: ACETAMINOPHEN 325 MG TABLET (FP) PO PRN ×3 (06:12→22:00)
[2020-05-08 07:23] LABS: BASO % 0.5 % (0-2.0); EOS % 2.9 % (0-4.5); HEMATOCRIT 31.2 % (32.4-45.2); HEMOGLOBIN 10.1 GM/dL (10.7-15.3); LYMPH % 23.5 % (8-40); MCH 29.7 pg (25.7-33.7); MCHC 32.2 g/dl (32.0-36.0); MEAN CELL VOLUME 92.2 fl (80-96); MEAN PLT VOLUME 9.1 fl (7.5-11.1); MONO % 9.9 % (3.8-10.2); NEUT % 63.2 % (42.8-82.8); PLATELET COUNT 208 K/MM3 (134-434); RBC 3.39 M/mm3 (3.60-5.2); RDW 15.1 % (11.6-15.6); WHITE BLOOD COUNT 6.3 K/mm3 (4.0-10.0)
[2020-05-08 07:53] LABS: ALBUMIN 3.1 g/dl (3.4-5.0); BILIRUBIN,TOTAL 0.9 mg/dL (0.2-1); BLOOD UREA NITROGEN 11.1 mg/dL (7-18); CREATININE 1.2 mg/dL (0.55-1.3); POTASSIUM 3.5 mmol/L (3.5-5.1); TOT PROT 6.7 g/dl (6.4-8.2)
[2020-05-08] MEDS: LABETALOL HCL 200 MG TABLET (FP) PO SCH ×2 (09:32→21:39)
[2020-05-08] MEDS: CLOPIDOGREL BISULFATE 75 MG TABLET (FP) PO SCH (09:33)
[2020-05-08] MEDS: APIXABAN 5 MG TABLET PO SCH ×2 (09:33→21:39)
[2020-05-08] MEDS: ISOSORBIDE MONONITRATE 30 MG TAB.SR.24H (FP) PO SCH (09:33)
[2020-05-08] MEDS ORDERED: FUROSEMIDE 40 MG TABLET (FP) PO SCH (10:00)
[2020-05-08] MEDS: traMADol HCL 50 MG TABLET PO PRN ×2 (10:28→17:32)
--- NOTE | 2020-05-08 11:11 | CONSULT ---
Consult - text type - Consultation Consultation Note: 74 yo woman s/p angiogram at [facility]. She reports pain at the groin access site. CT shows 2.5 cm hematoma in subQ, no retorperitoneal hematoma. This is not unusual and requires no intervention,. She should follow up with the vascular surgeon at [facility].
[2020-05-08] MEDS ORDERED: PROCHLORPERAZINE MALEATE 5 MG TABLET PO ONE (11:23)
--- NOTE | 2020-05-08 13:01 | CONSULT ---
Consult Consult Specialty:: Nephrology Reason for Consultation:: BERNARDO - History of Present Illness Chief Complaint: shortness of breath History of Present Illness: Pt is a 74 year old female with pmhx of a-fib, BERNARDO, cva, eqivocal Lupus coagulan ab, dvt, htn, ckd, pericardial effuson, chf, aaa, and dementia who presents with shortness of breath. I was called to evaluate her for hx of ckd and htn. She recently had a stent of an ostial lesion causing high grad renal artery stenosis. She denies chest pain. She complains of pain in her groin access site. She denies fever or chills. - History Source History Provided By: Patient, Medical Record - Past Medical History [place]: Yes: CVA Cardio/Vascular: Yes: AFIB, HTN, Hyperlipdemia, Other (pericarditis Pericardial effusion) Gastrointestinal: Yes: GERD Renal/: Yes: Other (Renal artery stenosis) Endocrine: Yes: Diabetes Mellitus - Past Surgical History Past Surgical History: Yes: , Permanent Pacemaker - Alcohol/Substance Use Hx Alcohol Use: No - Smoking History Smoking history: Never smoked Have you smoked in the past 12 months: No Aproximately how many cigarettes per day: 5 If you are a former smoker, when did you quit?: 1993 - Social History Usual Living Arrangement: Half-Way ADL: Family Assistance History of Recent Travel: No Home Medications - Allergies Allergies/Adverse Reactions: Allergies Allergy/AdvReac Type Severity Reaction Status Date / Time aspirin Allergy Severe Verified 04/26/20 01:08 Penicillins Allergy Severe Verified 04/26/20 01:08 diclofenac Allergy Verified 04/26/20 01:08 shellfish derived Allergy Verified 04/26/20 01:08 lactose AdvReac Verified 04/26/20 01:08 peanut Allergy Unknown Rash Uncoded 04/26/20 01:08 iv contrast Allergy Uncoded 04/26/20 01:08 - Home Medications Home Medications: Ambulatory Orders Clopidogrel Bisulfate [Plavix] 75 mg PO DAILY 11/09/18 Diltiazem HCl [Diltiazem 24Hr Cd] 240 mg PO DAILY 11/09/18 Dorzolamide HCl [Trusopt 2% -] 1 drop OU BID 11/09/18 Ferrous Sulfate 325 mg PO DAILY 11/09/18 Furosemide [Lasix -] 40 mg PO DAILY 11/09/18 Hydroxychloroquine Sulfate [Plaquenil] 200 mg PO DAILY 11/09/18 Latanoprost 1 drop OU HS 11/09/18 Linagliptin/Metformin HCl [Jentadueto 2.5 mg-500 mg Tab] 1 each PO BID 11/09/18 Multivitamin [Multiple Vitamins] 1 each PO DAILY 11/09/18 Ondansetron [Zofran -] 4 mg PO DAILY 11/09/18 Pantoprazole Sodium 40 mg PO DAILY 11/09/18 Rosuvastatin [Crestor -] 5 mg PO HS 11/09/18 Timolol [Betimol] 1 drop OU BID 11/09/18 Isosorbide Mononitrate [Imdur -] 30 mg PO DAILY #60 tab.sr.24h 11/21/18 Acetaminophen [Tylenol -] 500 mg PO Q6H 7 Days #25 tablet NS 02/23/20 Acetaminophen [Tylenol -] 500 mg PO Q8H #100 tablet 02/23/20 Apixaban [Eliquis -] 5 mg PO BID 04/26/20 Alprazolam [Xanax] 1.5 mg PO HS 05/07/20 Cholecalciferol (Vitamin D3) [Vitamin D3] 400 unit PO DAILY 05/07/20 Labetalol HCl [Normodyne -] 400 mg PO BID 05/07/20 Family Medical History Family History: Denies Review of Systems - Review of Systems Constitutional: reports: No Symptoms Eyes: reports: No Symptoms HENT: reports: No Symptoms Neck: reports: No Symptoms Cardiovascular: reports: No Symptoms Respiratory: reports: SOB Gastrointestinal: reports: No Symptoms Genitourinary: reports: No Symptoms Musculoskeletal: reports: No Symptoms Integumentary: reports: No Symptoms Neurological: reports: No Symptoms Endocrine: reports: No Symptoms Hematology/Lymphatic: reports: No Symptoms Psychiatric: reports: No Symptoms Physical Exam Vital Signs: Vital Signs Temperature 97.9 F 05/08/20 09:05 Pulse Rate 77 05/08/20 09:05 Respiratory Rate 18 05/08/20 09:05 Blood Pressure 164/97 05/08/20 09:05 O2 Sat by Pulse Oximetry (%) 97 05/08/20 10:00 Constitutional: Yes: Calm Eyes: Yes: Conjunctiva Clear HENT: Yes: Atraumatic Neck: Yes: Supple Cardiovascular: Yes: S1, S2 Respiratory: Yes: CTA Bilaterally Gastrointestinal: Yes: Soft Edema: No Neurological: Yes: Pre-Existing Deficit Labs: CBC, BMP 05/08/20 06:00 05/08/20 07:20 Selected Entries 05/07/20 05/07/20 05/07/20 02:00 18:54 21:00 Blood Pressure 177/69 H 145/81 138/57 L 05/08/20 05/08/20 05/08/20 01:41 06:00 09:05 Blood Pressure 139/82 186/76 H 164/97 Imaging - Results Chest X-ray: Report Reviewed Problem List - Problems (1) Afib Code(s): I48.91 - UNSPECIFIED ATRIAL FIBRILLATION Qualifiers: Atrial fibrillation type: paroxysmal Qualified Code(s): I48.0 - Paroxysmal atrial fibrillation (2) CAD (coronary artery disease) Code(s): I25.10 - ATHSCL HEART DISEASE OF [place] CORONARY ARTERY W/O ANG PCTRS (3) CHF (congestive heart failure) Code(s): I50.9 - HEART FAILURE, UNSPECIFIED (4) CKD (chronic kidney disease) Code(s): N18.9 - CHRONIC KIDNEY DISEASE, UNSPECIFIED Assessment/Plan Current Medications Generic Name Dose Route Start Last Admin Trade Name Freq PRN Reason Stop Dose Admin Acetaminophen 650 mg 05/08/20 01:48 05/08/20 06:12 Tylenol - PO 650 mg Q4H PRN Administration PAIN 1-5 Apixaban 5 mg 05/07/20 22:00 05/08/20 09:33 Eliquis - PO 5 mg BID JONAS Administration Clopidogrel Bisulfate 75 mg 05/07/20 15:45 05/08/20 09:33 Plavix - PO 75 mg DAILY JONAS Administration Diltiazem HCl 240 mg 05/07/20 15:45 05/08/20 09:33 Cardizem Cd - PO 240 mg DAILY JONAS Administration Furosemide 40 mg 05/08/20 06:00 05/08/20 06:11 Lasix Injection - IVPUSH 40 mg BID@0600,1400 JONAS Administration Isosorbide Mononitrate 30 mg 05/07/20 15:45 05/08/20 09:33 Imdur - PO 30 mg DAILY JONAS Administration Labetalol HCl 400 mg 05/07/20 22:00 05/08/20 09:32 Normodyne - PO 400 mg BID JONAS Administration Rosuvastatin Calcium 5 mg 05/07/20 22:00 05/07/20 21:46 Crestor - PO 5 mg HS JONAS Administration Tramadol HCl 50 mg 05/08/20 09:32 05/08/20 10:28 Ultram - PO 50 mg Q6H PRN Administration PAIN LEVEL 7 - 10 Impression 1. ckd 2. bernardo 3. htn 4. chf 5. a-fib 6. lupus anti coagulant ab 7. pericardial effusion Plan - cont lasix - replace potassium - vascular input appreciated - follow ct results - monitor volume status - cardio eval - monitor blood pressure
--- NOTE | 2020-05-08 13:21 | PN ---
Progress Note (short form) - Note Progress Note: cc: shortness of breath s: dyspnea improving. no chest pain, palps, dizziness Current Medications Generic Name Dose Route Start Last Admin Trade Name Raulq PRN Reason Stop Dose Admin Acetaminophen 650 mg 05/08/20 01:48 05/08/20 06:12 Tylenol - PO 650 mg Q4H PRN Administration PAIN 1-5 Apixaban 5 mg 05/07/20 22:00 05/08/20 09:33 Eliquis - PO 5 mg BID JONAS Administration Clopidogrel Bisulfate 75 mg 05/07/20 15:45 05/08/20 09:33 Plavix - PO 75 mg DAILY JONAS Administration Diltiazem HCl 240 mg 05/07/20 15:45 05/08/20 09:33 Cardizem Cd - PO 240 mg DAILY JONAS Administration Furosemide 40 mg 05/08/20 06:00 05/08/20 06:11 Lasix Injection - IVPUSH 40 mg BID@0600,1400 JONAS Administration Isosorbide Mononitrate 30 mg 05/07/20 15:45 05/08/20 09:33 Imdur - PO 30 mg DAILY JONAS Administration Labetalol HCl 400 mg 05/07/20 22:00 05/08/20 09:32 Normodyne - PO 400 mg BID JONAS Administration Potassium Chloride 40 meq 05/08/20 13:30 K-Dur - PO 05/08/20 13:31 ONCE ONE Rosuvastatin Calcium 5 mg 05/07/20 22:00 05/07/20 21:46 Crestor - PO 5 mg HS JONAS Administration Tramadol HCl 50 mg 05/08/20 09:32 05/08/20 10:28 Ultram - PO 50 mg Q6H PRN Administration PAIN LEVEL 7 - 10 Vital Signs Period Temp Pulse Resp BP Sys/[place]ak Pulse Ox Last 24 Hr 97.4 F-98 F 60-77 18-25 138-186/53-97 97-100 Constitutional: Yes: No Distress, Calm Eyes: Yes: Conjunctiva Clear, EOM Intact HENT: Yes: Atraumatic, Normocephalic Neck: Yes: Trachea Midline Respiratory: Yes: Other (rales at bases 1/3 up) Gastrointestinal: Yes: Soft (NT) JVD: Yes Heart Sounds: Yes: S1, S2 Edema: Yes Edema: LLE: 1+, RLE: 1+ Peripheral Pulses WNL: Yes Neurological: Yes: Alert, Oriented nsr, nonspecific IVCD, no acute changes CXR: mild congestion Assessment/Plan IMP: Acute on chronic diastolic CHF Uncontrolled HTN Solitary kidney with progressive renal artery stenosis, possibly causing the HTN and CHF Hx of CVA CAD PAF s/p PPM Chronic HTN CKD Hypercoag state s/p DVT Remote hx of pericardial effusion REC: 1. Acute diastolic CHF: -improving with IV lasix, continue lasix 40 mg IV BID - monitor Cr, lytes, daily weights - repeat echo when euvolemic to reevaluate mitral regurgitation 2. HTN - improving after renal artery stent although has been difficult to manage - cont current meds from discharge from [facility] 3. YAQUELIN - s/p renal artery stent 4. Hx CVA/AF/elevated [id number] -Vasc score: -Cont Eliquis 5. CAD: remote hx PCI -On single antiplatelet rx with Plavix; Crestor 6. PAF: s/p PPM -Routine office interrogations - monitoring on tele -On labetalol, Cardizem for rate control -Eliquis 7. Chronic HTN: as above. 8. CKD: as above, close monitoring renal fx as we diurese with daily BMP 9. Hypercoag state: -s/p DVT -Followed by Heme and Rheum at [facility] and was approved for NOAC use 10. Pericardial effusion: remote hx, asx -no effusion on recent echo
[2020-05-08] MEDS ORDERED: POTASSIUM CHLORIDE TABS 20 MEQ TABLET.ER (FP) PO ONE (13:30)
--- NOTE | 2020-05-08 16:05 | PN ---
Physical Exam: SUBJECTIVE: Patient seen and examined at bedside this morning. Patient admitted overnight due to shortness of breath, found to be in acute on chronic CHF. This morning, patient reports improvement of dyspnea. Although reports pain on the groin access site. Denies fevers, chills, headache, chest pain, abdominal pain, diarrhea, urinary symptoms. OBJECTIVE: Vital Signs Temperature 97.8 F 05/08/20 13:15 Pulse Rate 60 05/08/20 13:15 Respiratory Rate 05/08/20 13:15 Blood Pressure 146/60 05/08/20 13:15 O2 Sat by Pulse Oximetry (%) 100 05/08/20 13:15 GENERAL: The patient is awake, alert, in no acute distress. HEAD: Normal with no signs of trauma. EYES: PERRLA, EOMI ENT: moist mucous membranes. NECK: supple. LUNGS: bibasilar crackles HEART: Regular rate and rhythm, S1, S2 ABDOMEN: Soft, nontender, nondistended, normoactive bowel sounds EXTREMITIES: 2+ pulses, warm, well-perfused, +1 bilateral peripheral edema SKIN: Warm, dry, normal turgor Laboratory Results - last 24 hr 05/07/20 05/07/20 05/07/20 12:55 16:11 17:30 WBC RBC Hgb Hct MCV MCH MCHC RDW Plt Count MPV Absolute Neuts (auto) Neutrophils % Lymphocytes % Monocytes % Eosinophils % Basophils % Nucleated RBC % Sodium Potassium Chloride Carbon Dioxide Anion Gap BUN Creatinine Est GFR (CKD-EPI)AfAm Est GFR (CKD-EPI)NonAf POC Glucometer 144 Random Glucose Hemoglobin A1c % Calcium Total Bilirubin AST ALT Alkaline Phosphatase Creatine Kinase 47 Troponin I 0.02 Total Protein Albumin Triglycerides Cholesterol Total LDL Cholesterol HDL Cholesterol TSH COVID-19 ([facility]OOK) Not detected 05/08/20 05/08/20 05/08/20 06:00 06:00 07:20 WBC 6.3 RBC 3.39 L Hgb 10.1 L Hct 31.2 L MCV 92.2 MCH 29.7 MCHC 32.2 RDW 15.1 Plt Count 208 MPV 9.1 Absolute Neuts (auto) 4.0 Neutrophils % 63.2 Lymphocytes % 23.5 Monocytes % 9.9 Eosinophils % 2.9 Basophils % 0.5 Nucleated RBC % 0 Sodium 141 Potassium 3.5 Chloride 106 Carbon Dioxide 29 Anion Gap 7 L BUN 11.1 Creatinine 1.2 Est GFR (CKD-EPI)AfAm 51.20 Est GFR (CKD-EPI)NonAf 44.17 POC Glucometer Random Glucose 175 H Hemoglobin A1c % 6.5 H Calcium 9.0 Total Bilirubin 0.9 AST 14 L ALT 17 Alkaline Phosphatase 97 Creatine Kinase Troponin I Total Protein 6.7 Albumin 3.1 L Triglycerides 77 Cholesterol 127 Total LDL Cholesterol 55 HDL Cholesterol 54 TSH 0.69 COVID-19 ([facility]) Active Medications Generic Name Dose Route Start Last Admin Trade Name Freq PRN Reason Stop Dose Admin Acetaminophen 650 mg 05/08/20 01:48 05/08/20 15:14 Tylenol - PO 650 mg Q4H PRN Administration PAIN 1-5 Alprazolam 1.5 mg 05/08/20 14:43 Xanax PO HS PRN INSOMNIA Apixaban 5 mg 05/07/20 22:00 05/08/20 09:33 Eliquis - PO 5 mg BID JONAS Administration Cholecalciferol 400 unit 05/09/20 10:00 Vitamin D3 - PO DAILY [facility] Clopidogrel Bisulfate 75 mg 05/07/20 15:45 05/08/20 09:33 Plavix - PO 75 mg DAILY JONAS Administration Diltiazem HCl 240 mg 05/07/20 15:45 05/08/20 09:33 Cardizem Cd - PO [address] [facility] Administration Dorzolamide HCl 1 drop 05/08/20 22:00 Trusopt 2% OU BID JONAS Furosemide 40 mg 05/08/20 06:00 05/08/20 13:22 Lasix Injection - IVPUSH 40 mg BID@0600,1400 [facility] Administration Hydroxychloroquine Sulfate 200 mg 05/09/20 10:00 Plaquenil - PO DAILY [facility] Insulin Aspart 1 vial 05/08/20 16:30 Novolog Vial Sliding Scale - SQ ACHS [facility] Protocol Isosorbide Mononitrate 30 mg 05/07/20 15:45 05/08/20 09:33 Imdur - PO [address] [facility] Administration Labetalol HCl 400 mg 05/07/20 22:00 05/08/20 09:32 Normodyne - PO 400 mg BID JONAS Administration Latanoprost 1 drop 05/08/20 22:00 Xalatan 0.005% Eye Drops - OU HS [facility] Multivitamins/Minerals/Vitamin C 1 tab 05/09/20 10:00 Tab-A-Vit - PO DAILY JONAS Non-Formulary Medication 1 drop 05/08/20 22:00 Timolol [Betimol] OU BID JONAS Pantoprazole Sodium 40 mg 05/09/20 10:00 Protonix - PO DAILY JONAS Rosuvastatin Calcium 5 mg 05/07/20 22:00 05/07/20 21:46 Crestor - PO 5 mg HS JONAS Administration Tramadol HCl 50 mg 05/08/20 09:32 05/08/20 10:28 Ultram - PO 50 mg Q6H PRN Administration PAIN LEVEL 7 - 10 ASSESSMENT/PLAN: Patient is a 74 year old female with past medical history significant for afib(s/p PPM (medtronic), CVA, Equivocal Lupus Anticoagulant AB (followed by Rheum and Brianna at [facility]), DVT, HTN, renal artery stenosis, CKD, pericardial effusion, chronic diastolic CHF, AAA(s/p EVAR) and dementia, presented to the ER for worsening SOB for last few days. Patient was admitted for acute on chronic CHF. #Acute on chronic diastolic CHF -continue lasix 40 mg IV BID -monitor Cr, lytes, daily weights -repeat echo when euvolemic to reevaluate mitral regurgitation #HTN -improving after renal artery stent although has been difficult to manage -cont current meds: Cardizem 240mg daily, ISMN 30mg daily, IV Lasix, Labetalol 400mg bid #YAQUELIN -s/p renal artery stent -Vascular surgery (Dr. Higgins) consulted. REcommendations appreciated. -CT shows 2.5 cm hematoma in subQ, no retroperitoneal hematoma. -This is not unusual and requires no intervention,. -follow up with the vascular surgeon at [facility]. #Hx CVA -Cont Eliquis, Plavix and Lipitor #Hx of CAD -s/p PCI -continue Plavix, Crestor #PAF -s/p PPM -Routine office interrogations -monitoring on tele -On Labetalol, Cardizem for rate control -Eliquis #CKD -stable, will continue to monitor renal function and electrolytes #DVT -Followed by Brianna and Rheum at [facility] -continue Eliquis #Hx of Pericardial effusion -no effusion on recent echo -for repeat echo once euvolemic #FEN -Not on any standing fluids -Electrolytes wnl, routine bmp monitoring -Diabetic/sodium restricted diet #Prophylaxis -Eliquis 5mg bid #Disposition -tele monitoring Visit type - Emergency Visit Emergency Visit: Yes ED Registration Date: 05/07/20 Care time: The patient presented to the Emergency Department on the above date and was hospitalized for further evaluation of their emergent condition. - New Patient This patient is new to me today: Yes Date on this admission: 05/08/20 - Critical Care Critical Care patient: No ATTENDING PHYSICIAN STATEMENT I saw and evaluated the patient. I reviewed the resident's note and discussed the case with the resident. I agree with the resident's findings and plan as documented. SUBJECTIVE: OBJECTIVE: ASSESSMENT AND PLAN:
--- NOTE | 2020-05-08 17:30 | PN ---
Teaching Attending Note Name of Resident: Colleen Cadet ATTENDING PHYSICIAN STATEMENT I saw and evaluated the patient. I reviewed the resident's note and discussed the case with the resident. I agree with the resident's findings and plan as documented. SUBJECTIVE: Patient seen and examined at bedside, transferred to [facility] service, admitted for acute on chronic CHF w/ exacerbation, no clinical signs for acute YAQUELIN. VSS. OBJECTIVE: GENERAL: The patient is awake, alert, and fully oriented, in no acute distress. HEAD: Normal with no signs of trauma. EYES: PERRL, extraocular movements intact, sclera anicteric, conjunctiva clear. No ptosis. ENT: Ears normal, nares patent, oropharynx clear without exudates, moist mucous membranes. NECK: Trachea midline, full range of motion, supple. LUNGS: Breath sounds equal, clear to auscultation bilaterally, no wheezes, no crackles, no accessory muscle use. HEART: Regular rate and rhythm, S1, S2 without murmur, rub or gallop. ABDOMEN: Soft, nontender, nondistended, normoactive bowel sounds, no guarding, no rebound, no hepatosplenomegaly, no masses. EXTREMITIES: 2+ pulses, warm, well-perfused, no edema. NEUROLOGICAL: Cranial nerves II through XII grossly intact. Normal speech, gait not observed. PSYCH: Normal mood, normal affect. SKIN: Warm, dry, normal turgor, no rashes or lesions noted Vital Signs - 24 hr 05/07/20 05/07/20 05/07/20 17:54 18:54 21:00 Temperature 97.9 F 97.6 F Pulse Rate 65 60 Pulse Rate [ 60 Apical] Respiratory 25 H 18 20 Rate Blood Pressure 145/81 138/57 L Blood Pressure 140/53 L [Left Arm] O2 Sat by Pulse 100 99 Oximetry (%) 05/08/20 05/08/20 05/08/20 01:41 06:00 09:05 Temperature 98 F 97.4 F L 97.9 F Pulse Rate 64 74 77 Pulse Rate [ Apical] Respiratory 20 20 18 Rate Blood Pressure 139/82 186/76 H 164/97 Blood Pressure [Left Arm] O2 Sat by Pulse 97 Oximetry (%) 05/08/20 05/08/20 05/08/20 10:00 13:15 16:57 Temperature 97.8 F 98.0 F Pulse Rate 60 67 Pulse Rate [ Apical] Respiratory 20 18 Rate Blood Pressure 146/60 154/67 Blood Pressure [Left Arm] O2 Sat by Pulse 97 100 96 Oximetry (%) Laboratory Results - last 24 hr 05/07/20 05/07/20 05/08/20 12:55 17:30 06:00 WBC 6.3 RBC 3.39 L Hgb 10.1 L Hct 31.2 L MCV 92.2 MCH 29.7 MCHC 32.2 RDW 15.1 Plt Count 208 MPV 9.1 Absolute Neuts (auto) 4.0 Neutrophils % 63.2 Lymphocytes % 23.5 Monocytes % 9.9 Eosinophils % 2.9 Basophils % 0.5 Nucleated RBC % 0 Sodium Potassium Chloride Carbon Dioxide Anion Gap BUN Creatinine Est GFR (CKD-EPI)AfAm Est GFR (CKD-EPI)NonAf POC Glucometer Random Glucose Hemoglobin A1c % Calcium Total Bilirubin AST ALT Alkaline Phosphatase Creatine Kinase 47 Troponin I 0.02 Total Protein Albumin Triglycerides Cholesterol Total LDL Cholesterol HDL Cholesterol TSH COVID-19 ([facility]) Not detected 05/08/20 05/08/20 05/08/20 06:00 07:20 15:20 WBC RBC Hgb Hct MCV MCH MCHC RDW Plt Count MPV Absolute Neuts (auto) Neutrophils % Lymphocytes % Monocytes % Eosinophils % Basophils % Nucleated RBC % Sodium 141 Potassium 3.5 Chloride 106 Carbon Dioxide 29 Anion Gap 7 L BUN 11.1 Creatinine 1.2 Est GFR (CKD-EPI)AfAm 51.20 Est GFR (CKD-EPI)NonAf 44.17 POC Glucometer Random Glucose 175 H Hemoglobin A1c % 6.5 H Calcium 9.0 Total Bilirubin 0.9 AST 14 L ALT 17 Alkaline Phosphatase 97 Creatine Kinase 48 Troponin I 0.02 Total Protein 6.7 Albumin 3.1 L Triglycerides 77 Cholesterol 127 Total LDL Cholesterol 55 HDL Cholesterol 54 TSH 0.69 COVID-19 ([facility]) 05/08/20 16:43 WBC RBC Hgb Hct MCV MCH MCHC RDW Plt Count MPV Absolute Neuts (auto) Neutrophils % Lymphocytes % Monocytes % Eosinophils % Basophils % Nucleated RBC % Sodium Potassium Chloride Carbon Dioxide Anion Gap BUN Creatinine Est GFR (CKD-EPI)AfAm Est GFR (CKD-EPI)NonAf POC Glucometer 222 Random Glucose Hemoglobin A1c % Calcium Total Bilirubin AST ALT Alkaline Phosphatase Creatine Kinase Troponin I Total Protein Albumin Triglycerides Cholesterol Total LDL Cholesterol HDL Cholesterol TSH COVID-19 ([facility]) Home Medications Medication Instructions Recorded Clopidogrel Bisulfate [Plavix] 75 mg PO DAILY 11/09/18 Diltiazem HCl [Diltiazem 24Hr Cd] 240 mg PO DAILY 11/09/18 Dorzolamide HCl [Trusopt 2% -] 1 drop OU BID 11/09/18 Ferrous Sulfate 325 mg PO DAILY 11/09/18 Furosemide [Lasix -] 40 mg PO DAILY 11/09/18 Hydroxychloroquine Sulfate 200 mg PO DAILY 11/09/18 [Plaquenil] Latanoprost 1 drop OU HS 11/09/18 Linagliptin/Metformin HCl 1 each PO BID 11/09/18 [Jentadueto 2.5 mg-500 mg Tab] Multivitamin [Multiple Vitamins] 1 each PO DAILY 11/09/18 Ondansetron [Zofran -] 4 mg PO DAILY 11/09/18 Pantoprazole Sodium 40 mg PO DAILY 11/09/18 Rosuvastatin [Crestor -] 5 mg PO HS 11/09/18 Timolol [Betimol] 1 drop OU BID 11/09/18 Isosorbide Mononitrate [Imdur -] 30 mg PO DAILY #60 tab.sr.24h 11/21/18 Acetaminophen [Tylenol -] 500 mg PO Q6H 7 Days #25 tablet NS 02/23/20 Acetaminophen [Tylenol -] 500 mg PO Q8H #100 tablet 02/23/20 Apixaban [Eliquis -] 5 mg PO BID 04/26/20 Alprazolam [Xanax] 1.5 mg PO HS 05/07/20 Cholecalciferol (Vitamin D3) 400 unit PO DAILY 05/07/20 [Vitamin D3] Labetalol HCl [Normodyne -] 400 mg PO BID 05/07/20 Current Medications Generic Name Dose Route Start Last Admin Trade Name Freq PRN Reason Stop Dose Admin Acetaminophen 650 mg 05/08/20 01:48 05/08/20 15:14 Tylenol - PO 650 mg Q4H PRN Administration PAIN 1-5 Alprazolam 1.5 mg 05/08/20 14:43 Xanax PO HS PRN INSOMNIA Apixaban 5 mg 05/07/20 22:00 05/08/20 09:33 Eliquis - PO 5 mg BID JONAS Administration Cholecalciferol 400 unit 05/09/20 10:00 Vitamin D3 - PO DAILY [facility] Clopidogrel Bisulfate 75 mg 05/07/20 15:45 05/08/20 09:33 Plavix - PO 75 mg DAILY JONAS Administration Diltiazem HCl 240 mg 05/07/20 15:45 05/08/20 09:33 Cardizem Cd - PO 240 mg DAILY [facility] Administration Dorzolamide HCl 1 drop 05/08/20 22:00 Trusopt 2% OU BID [facility] Furosemide 40 mg 05/08/20 06:00 05/08/20 13:22 Lasix Injection - IVPUSH 40 mg BID@0600,1400 [facility] Administration Hydroxychloroquine Sulfate 200 mg 05/09/20 10:00 Plaquenil - PO DAILY [facility] Insulin Aspart 1 vial 05/08/20 16:30 Novolog Vial Sliding Scale - SQ ACHS [facility] Protocol Isosorbide Mononitrate 30 mg 05/07/20 15:45 05/08/20 09:33 Imdur - PO 30 mg DAILY [facility] Administration Labetalol HCl 400 mg 05/07/20 22:00 05/08/20 09:32 Normodyne - PO 400 mg BID [facility] Administration Latanoprost 1 drop 05/08/20 22:00 Xalatan 0.005% Eye Drops - OU HS [facility] Multivitamins/Minerals/Vitamin C 1 tab 05/09/20 10:00 Tab-A-Vit - PO DAILY [facility] Non-Formulary Medication 1 drop 05/08/20 22:00 Timolol [Betimol] OU BID [facility] Pantoprazole Sodium 40 mg 05/09/20 10:00 Protonix - PO DAILY [facility] Rosuvastatin Calcium 5 mg 05/07/20 22:00 05/07/20 21:46 Crestor - PO 5 mg HS [facility] Administration Tramadol HCl 50 mg 05/08/20 09:32 05/08/20 10:28 Ultram - PO 50 mg Q6H PRN Administration PAIN LEVEL 7 - 10 ASSESSMENT AND PLAN: 74 F HFpEF with acute exacerbation Renal artery stenosis s/p stenting Afib(s/p PPM (medtronic) CVA Equivocal Lupus Anticoagulant AB DVT HTN CKD Pericardial effusion AAA(s/p EVAR) Dementia Plan: Continue aggressive diuresis with BID Lasix to achieve euvolemia, then get repeat Echo BP management with increase of Labatelol Cont. Plavix/Eliquis, monitor CBC Low concern for YAQUEILN stent migration, (CRE stable) Cardiology following Renal following DVT ppx: Eliquis
[2020-05-08] MEDS: INSULIN SLIDING SCALE (NOVOLOG) 1 VIAL SQ SCH ×2 (17:32→21:46)
[2020-05-08] MEDS: ROSUVASTATIN CA 5 MG TABLET (FP) PO SCH (21:39)
[2020-05-08] MEDS: ALPRAZolam 1 MG TABLET PO PRN (21:49)
[2020-05-08] MEDS: DORZOLAMIDE 2% HCL OPHTHALMIC SOLUTION 10 ML BOTTLE OU SCH (21:53)
[2020-05-08] MEDS: LATANOPROST 0.005% OPHTH SOLN 2.5ML BOTTLE OU SCH (21:53)
[2020-05-08] MEDS ORDERED: ALPRAZolam 1 MG TABLET PO SCH (22:00)
[2020-05-08] MEDS ORDERED: PATIENT'S OWN MEDICATION (NON-FORMULARY) (Timolol [Betimol] 1 DROP) OU SCH (22:00)
[2020-05-09] MEDS: INSULIN SLIDING SCALE (NOVOLOG) 1 VIAL SQ SCH ×4 (06:39→21:56)
[2020-05-09] MEDS: FUROSEMIDE 40 MG/4 ML INJECTABLE VIAL IVPUSH SCH ×2 (06:39→13:35)
[2020-05-09] MEDS: ACETAMINOPHEN 325 MG TABLET (FP) PO PRN (06:45)
[2020-05-09 07:03] LABS: BASO % 0.5 % (0-2.0); EOS % 1.1 % (0-4.5); HEMATOCRIT 30.6 % (32.4-45.2); LYMPH % 27.7 % (8-40); MCH 29.9 pg (25.7-33.7); MCHC 32.7 g/dl (32.0-36.0); MEAN CELL VOLUME 91.4 fl (80-96); MEAN PLT VOLUME 9.1 fl (7.5-11.1); MONO % 9.1 % (3.8-10.2); NEUT % 61.6 % (42.8-82.8); PLATELET COUNT 228 K/MM3 (134-434); RBC 3.35 M/mm3 (3.60-5.2); RDW 14.6 % (11.6-15.6); WHITE BLOOD COUNT 6.8 K/mm3 (4.0-10.0)
[2020-05-09 07:22] LABS: BILIRUBIN,TOTAL 0.8 mg/dL (0.2-1); BLOOD UREA NITROGEN 13.7 mg/dL (7-18); CALCIUM 9.5 mg/dL (8.5-10.1); CREATININE 1.2 mg/dL (0.55-1.3); MAGNESIUM 2.1 mg/dL (1.8-2.4); PHOSPHOROUS 3.7 mg/dL (2.5-4.9); POTASSIUM 4.2 mmol/L (3.5-5.1); TOT PROT 6.7 g/dl (6.4-8.2)
[2020-05-09] MEDS ORDERED: PT OWN MED DRAWER 7, Y5N ONE ×2 (09:03→11:39)
[2020-05-09] MEDS: APIXABAN 5 MG TABLET PO SCH ×2 (09:18→21:54)
[2020-05-09] MEDS: LABETALOL HCL 200 MG TABLET (FP) PO SCH ×2 (09:18→21:54)
[2020-05-09] MEDS: CHOLECALCIFEROL (VIT D3) 400 UNIT (10 MCG) TABLET PO SCH (09:18)
[2020-05-09] MEDS: PANTOPRAZOLE 40 MG TABLET PO SCH (09:18)
[2020-05-09] MEDS: MULTIVITAMINS (DAILY MVI) TABLET (FP) PO SCH (09:18)
[2020-05-09] MEDS: CLOPIDOGREL BISULFATE 75 MG TABLET (FP) PO SCH (09:19)
[2020-05-09] MEDS: traMADol HCL 50 MG TABLET PO PRN ×3 (09:19→21:57)
[2020-05-09] MEDS: DORZOLAMIDE 2% HCL OPHTHALMIC SOLUTION 10 ML BOTTLE OU SCH ×2 (09:20→22:00)
[2020-05-09] MEDS: TIMOLOL 0.5% OPHTHALMIC SOL 5 ML BOTTLE OU SCH ×2 (09:20→22:01)
[2020-05-09] MEDS ORDERED: CLOPIDOGREL BISULFATE 75 MG TABLET (FP) PO SCH (10:00)
--- NOTE | 2020-05-09 11:21 | PN ---
Progress Note (short form) - Note Progress Note: cc: shortness of breath s: dyspnea improving. no chest pain, palps, dizziness Current Medications Generic Name Dose Route Start Last Admin Trade Name Barbara PRN Reason Stop Dose Admin Acetaminophen 650 mg 05/08/20 01:48 05/09/20 06:45 Tylenol - PO 650 mg Q4H PRN Administration PAIN 1-5 Alprazolam 1.5 mg 05/08/20 14:43 05/08/20 21:49 Xanax PO 1.5 mg HS PRN Administration INSOMNIA Apixaban 5 mg 05/07/20 22:00 05/09/20 09:18 Eliquis - PO 5 mg BID JONAS Administration Cholecalciferol 400 unit 05/09/20 10:00 05/09/20 09:18 Vitamin D3 - PO 400 unit DAILY JONAS Administration Clopidogrel Bisulfate 75 mg 05/07/20 15:45 05/09/20 09:19 Plavix - PO 75 mg DAILY JONAS Administration Diltiazem HCl 240 mg 05/07/20 15:45 05/09/20 09:18 Cardizem Cd - PO 240 mg DAILY JONAS Administration Dorzolamide HCl 1 drop 05/08/20 22:00 05/09/20 09:20 Trusopt 2% OU 1 drop BID JONAS Administration Furosemide 40 mg 05/08/20 06:00 05/09/20 06:39 Lasix Injection - IVPUSH 40 mg BID@0600,1400 JONAS Administration Hydroxychloroquine Sulfate 200 mg 05/09/20 10:00 Plaquenil - PO DAILY JONAS Insulin Aspart 1 vial 05/08/20 16:30 05/09/20 06:39 Novolog Vial Sliding Scale - SQ 2 unit ACHS JONAS Administration Protocol Isosorbide Mononitrate 30 mg 05/07/20 15:45 05/08/20 09:33 Imdur - PO 30 mg DAILY JONAS Administration Labetalol HCl 400 mg 05/07/20 22:00 05/09/20 09:18 Normodyne - PO 400 mg BID JONAS Administration Latanoprost 1 drop 05/08/20 22:00 05/08/20 21:53 Xalatan 0.005% Eye Drops - OU 1 drop HS JONAS Administration Multivitamins/Minerals/Vitamin C 1 tab 05/09/20 10:00 05/09/20 09:18 Tab-A-Vit - PO 1 tab DAILY JONAS Administration Pantoprazole Sodium 40 mg 05/09/20 10:00 05/09/20 09:18 Protonix - PO 40 mg DAILY JONAS Administration Rosuvastatin Calcium 5 mg 05/07/20 22:00 05/08/20 21:39 Crestor - PO 5 mg HS JONAS Administration Timolol Maleate 1 drop 05/09/20 10:00 05/09/20 09:20 Timoptic 0.5% OU 1 drop BID JONAS Administration Tramadol HCl 50 mg 05/08/20 09:32 05/09/20 09:19 Ultram - PO 50 mg Q6H PRN Administration PAIN LEVEL 7 - 10 Vital Signs Period Temp Pulse Resp BP Sys/Nowak Pulse Ox Last 24 Hr 97.8 F-98.9 F 60-67 18-20 140-165/53-70 96-100 Constitutional: Yes: No Distress, Calm Eyes: Yes: Conjunctiva Clear, EOM Intact HENT: Yes: Atraumatic, Normocephalic Neck: Yes: Trachea Midline Respiratory: Yes: Other (rales at bases bases) Gastrointestinal: Yes: Soft (NT) JVD: Yes Heart Sounds: Yes: S1, S2 Edema: Yes Edema: LLE: 1+, RLE: 1+ Peripheral Pulses WNL: Yes Neurological: Yes: Alert, Oriented CBC, BMP 05/09/20 05:52 05/09/20 05:52 nsr, nonspecific IVCD, no acute changes CXR: mild congestion tele: ap, evp strategy Assessment/Plan IMP: Acute on chronic diastolic CHF Uncontrolled HTN Solitary kidney with progressive renal artery stenosis, possibly causing the HTN and CHF Hx of CVA CAD PAF s/p PPM Chronic HTN CKD Hypercoag state s/p DVT Remote hx of pericardial effusion REC: 1. Acute diastolic CHF: - improving with IV lasix, continue lasix 40 mg IV BID - monitor Cr, lytes, daily weights - repeat echo when euvolemic to reevaluate mitral regurgitation 2. HTN - improving after renal artery stent although has been difficult to manage - cont current meds from discharge from [facility] 3. YAQUELIN - s/p renal artery stent 4. Hx CVA/AF/elevated [id number] -Vasc score: -Cont Eliquis 5. CAD: remote hx PCI -On single antiplatelet rx with Plavix; Crestor 6. PAF: s/p PPM -Routine office interrogations - monitoring on tele -On labetalol, Cardizem for rate control -Eliquis 7. Chronic HTN: as above. 8. CKD: as above, close monitoring renal fx as we diurese with daily BMP 9. Hypercoag state: -s/p DVT -Followed by Heme and Rheum at [facility] and was approved for NOAC use 10. Pericardial effusion: remote hx, asx -no effusion on recent echo
[2020-05-09] MEDS: ISOSORBIDE MONONITRATE 30 MG TAB.SR.24H (FP) PO SCH (11:39)
[2020-05-09] MEDS: HYDROXYCHLOROQUINE SO4 200 MG TABLET (FP) PO SCH (11:43)
--- NOTE | 2020-05-09 13:01 | ECHO ---
Name: DWIGHT WAY Exam:Adult Echocardiogram Study Date: 05/09/2020 11:53 AM Age: 74 yrs Reason For Study: f/u MMode/2D Measurements & Calculations IVSd: 1.4 cm Ao root diam: 2.9 cm LVIDd: 3.9 cm LA dimension: 3.3 cm LVIDs: 3.1 cm LVPWd: 1.9 cm LVPWs: 1.9 cm EDV(Teich): 66.4 ml ESV(Teich): 37.4 ml LVOT diam: 1.9 cm LAV (MOD-bp): 95.0 ml TAPSE: 2.1 cm RV S Price: 14.3 cm/sec Doppler Measurements & Calculations MV E max price: 50.8 cm/sec Ao V2 max: 170.6 cm/sec MV A max price: 73.5 cm/sec Ao max P.6 mmHg MV E/A: 0.69 AI P1/2t: 543.9 msec MV dec time: 0.19 sec GEO(V,D): 1.8 cm2 AI max price: 446.1 cm/sec LV V1 max P.5 mmHg AI max P.7 mmHg LV V1 max: 106.6 cm/sec AI dec slope: 240.3 cm/sec2 MR max price: 494.3 cm/sec TR max price: 226.7 cm/sec MR max P.7 mmHg TR max P.6 mmHg PA V2 max: 118.8 cm/sec Lat Peak E' Price: 4.7 cm/sec PA max P.6 mmHg Lat E/e': 10.8 Procedure A complete two-dimensional transthoracic echocardiogram was performed (2D, M-mode, Doppler and color flow Doppler). The study was technically difficult with many images being suboptimal in quality. Left Ventricle The left ventricle is mildly dilated. Left ventricular systolic function is mildly reduced. Ejection Fraction = 45-50%. There is mild global hypokinesis of the left ventricle. Right Ventricle The right ventricle is normal in size and function. There is a pacemaker lead in the right ventricle. Atria The left atrium is mildly dilated. Right atrial size is normal. Mitral Valve There is mild mitral regurgitation. Tricuspid Valve No tricuspid regurgitation. There was insufficient TR detected to calculate RV systolic pressure. Aortic Valve Mild aortic regurgitation. Pulmonic Valve There is no pulmonic valvular regurgitation. Great Vessels The aortic root is normal size. Pericardium/Pleura There is no pericardial effusion. Interpretation Summary The study was technically difficult with many images being suboptimal in quality. The left ventricle is mildly dilated. Left ventricular systolic function is mildly reduced. The right ventricle is normal in size and function. There is a pacemaker lead in the right ventricle. The left atrium is mildly dilated. There is mild mitral regurgitation. Mild aortic regurgitation. MD Gelacio Hoffmann 05/09/2020 01:00 PM
--- NOTE | 2020-05-09 15:44 | PN ---
Physical Exam: SUBJECTIVE: Patient seen and examined at bedside this morning. No acute events overnight. Patient reports feeling better, with less dyspnea. OBJECTIVE: Vital Signs Temperature 98.4 F 05/09/20 14:12 Pulse Rate 65 05/09/20 14:12 Respiratory Rate 18 05/09/20 14:12 Blood Pressure 133/58 L 05/09/20 14:12 O2 Sat by Pulse Oximetry (%) 95 05/09/20 09:00 GENERAL: The patient is awake, alert, on 3L NC, saturating 99% HEAD: Normal with no signs of trauma. EYES: PERRLA, EOMI ENT: moist mucous membranes. NECK: supple. LUNGS: bibasilar crackles HEART: Regular rate and rhythm, S1, S2 ABDOMEN: Soft, nontender, nondistended, normoactive bowel sounds EXTREMITIES: 2+ pulses, warm, well-perfused, no pitting edema SKIN: Warm, dry, normal turgor Laboratory Results - last 24 hr 05/08/20 05/08/20 05/08/20 15:20 16:43 21:41 WBC RBC Hgb Hct MCV MCH MCHC RDW Plt Count MPV Absolute Neuts (auto) Neutrophils % Lymphocytes % Monocytes % Eosinophils % Basophils % Nucleated RBC % Sodium Potassium Chloride Carbon Dioxide Anion Gap BUN Creatinine Est GFR (CKD-EPI)AfAm Est GFR (CKD-EPI)NonAf POC Glucometer 222 164 Random Glucose Calcium Phosphorus Magnesium Total Bilirubin AST ALT Alkaline Phosphatase Creatine Kinase 48 Troponin I 0.02 Total Protein Albumin 05/09/20 05/09/20 05/09/20 05:48 05:52 05:52 WBC 6.8 RBC 3.35 L Hgb 10.0 L Hct 30.6 L MCV 91.4 MCH 29.9 MCHC 32.7 RDW 14.6 Plt Count 228 MPV 9.1 Absolute Neuts (auto) 4.2 Neutrophils % 61.6 Lymphocytes % 27.7 Monocytes % 9.1 Eosinophils % 1.1 Basophils % 0.5 Nucleated RBC % 0 Sodium 137 Potassium 4.2 Chloride 101 Carbon Dioxide 29 Anion Gap 6 L BUN 13.7 Creatinine 1.2 Est GFR (CKD-EPI)AfAm 51.20 Est GFR (CKD-EPI)NonAf 44.17 POC Glucometer 167 Random Glucose 165 H Calcium 9.5 Phosphorus 3.7 Magnesium 2.1 Total Bilirubin 0.8 AST 13 L ALT 15 Alkaline Phosphatase 92 Creatine Kinase Troponin I Total Protein 6.7 Albumin 3.0 L Active Medications Generic Name Dose Route Start Last Admin Trade Name Raulq PRN Reason Stop Dose Admin Acetaminophen 650 mg 05/08/20 01:48 05/09/20 06:45 Tylenol - PO 650 mg Q4H PRN Administration PAIN 1-5 Alprazolam 1.5 mg 05/08/20 14:43 05/08/20 21:49 Xanax PO 1.5 mg HS PRN Administration INSOMNIA Apixaban 5 mg 05/07/20 22:00 05/09/20 09:18 Eliquis - PO 5 mg BID JONAS Administration Cholecalciferol 400 unit 05/09/20 10:00 05/09/20 09:18 Vitamin D3 - PO 400 unit DAILY JONAS Administration Clopidogrel Bisulfate 75 mg 05/07/20 15:45 05/09/20 09:19 Plavix - PO 75 mg DAILY JONAS Administration Diltiazem HCl 240 mg 05/07/20 15:45 05/09/20 09:18 Cardizem Cd - PO 240 mg DAILY JONAS Administration Dorzolamide HCl 1 drop 05/08/20 22:00 05/09/20 09:20 Trusopt 2% OU 1 drop BID JONAS Administration Furosemide 40 mg 05/08/20 06:00 05/09/20 13:35 Lasix Injection - IVPUSH 40 mg BID@0600,1400 JONAS Administration Hydroxychloroquine Sulfate 200 mg 05/09/20 10:00 05/09/20 11:43 Plaquenil - PO 200 mg DAILY JONAS Administration Insulin Aspart 1 vial 05/08/20 16:30 05/09/20 11:46 Novolog Vial Sliding Scale - SQ Not Given ACHS [facility] Protocol Isosorbide Mononitrate 30 mg 05/07/20 15:45 05/09/20 11:39 Imdur - PO 30 mg DAILY JONAS Administration Labetalol HCl 400 mg 05/07/20 22:00 05/09/20 09:18 Normodyne - PO 400 mg BID JONAS Administration Latanoprost 1 drop 05/08/20 22:00 05/08/20 21:53 Xalatan 0.005% Eye Drops - OU 1 drop HS JONAS Administration Multivitamins/Minerals/Vitamin C 1 tab 05/09/20 10:00 05/09/20 09:18 Tab-A-Vit - PO 1 tab DAILY JONAS Administration Pantoprazole Sodium 40 mg 05/09/20 10:00 05/09/20 09:18 Protonix - PO 40 mg DAILY JONAS Administration Rosuvastatin Calcium 5 mg 05/07/20 22:00 05/08/20 21:39 Crestor - PO 5 mg HS JONAS Administration Timolol Maleate 1 drop 05/09/20 10:00 05/09/20 09:20 Timoptic 0.5% OU 1 drop BID JONAS Administration Tramadol HCl 50 mg 05/08/20 09:32 05/09/20 15:09 Ultram - PO 50 mg Q6H PRN Administration PAIN LEVEL 7 - 10 ASSESSMENT/PLAN: Patient is a 74 year old female with past medical history significant for afib(s/p PPM (medtronic), CVA, Equivocal Lupus Anticoagulant AB (followed by Rheum and Brianna at [facility]), DVT, HTN, renal artery stenosis, CKD, pericardial effusion, chronic diastolic CHF, AAA(s/p EVAR) and dementia, presented to the ER for worsening SOB for last few days. Patient was admitted for acute on chronic CHF. #Acute on chronic diastolic CHF -continue lasix 40 mg IV BID -monitor Cr, lytes, daily weights -Echo done today -Cardiology consulted. REcommendations appreciated. #HTN -improving after renal artery stent although has been difficult to manage -cont current meds: Cardizem 240mg daily, ISMN 30mg daily, IV Lasix, Labetalol 400mg bid #YAQUELIN -s/p renal artery stent -Vascular surgery (Dr. Higgins) consulted. REcommendations appreciated. -CT shows 2.5 cm hematoma in subQ, no retroperitoneal hematoma. -This is not unusual and requires no intervention,. -follow up with the vascular surgeon at [facility]. #Hx CVA -Cont Eliquis, Plavix and Lipitor #Hx of CAD -s/p PCI -continue Plavix, Crestor #PAF -s/p PPM -Routine office interrogations -monitoring on tele -On Labetalol, Cardizem for rate control -Eliquis #CKD -stable, will continue to monitor renal function and electrolytes #DVT -Followed by Heme and Rheum at [facility] -continue Eliquis #Hx of Pericardial effusion -no effusion on recent echo #FEN -Not on any standing fluids -Electrolytes wnl, routine bmp monitoring -Diabetic/sodium restricted diet #Prophylaxis -Eliquis 5mg bid #Disposition -tele monitoring Visit type - Emergency Visit Emergency Visit: Yes ED Registration Date: 05/07/20 Care time: The patient presented to the Emergency Department on the above date and was hospitalized for further evaluation of their emergent condition. - New Patient This patient is new to me today: No - Critical Care Critical Care patient: No ATTENDING PHYSICIAN STATEMENT I saw and evaluated the patient. I reviewed the resident's note and discussed the case with the resident. I agree with the resident's findings and plan as documented. SUBJECTIVE: OBJECTIVE: ASSESSMENT AND PLAN:
--- NOTE | 2020-05-09 16:37 | PN ---
Teaching Attending Note Name of Resident: Colleen Cadet ATTENDING PHYSICIAN STATEMENT I saw and evaluated the patient. I reviewed the resident's note and discussed the case with the resident. I agree with the resident's findings and plan as documented. SUBJECTIVE: Patient seen and examined at bedside, Echo grossly unremarkable, R groin pain d/t hematoma (resolving, NTD per Surgery), pt. stable for DC home with VNS. OBJECTIVE: GENERAL: The patient is awake, alert, and fully oriented, in no acute distress. HEENT NC/AT, EOMI, neck supple, dry MM, no JVD LUNGS: Good air entry b/l, no crackles or wheezing CVS: S1, S2+, RRR, SEVEN+ Abd: Obese, Soft, NT, BS+, no guarding Ext: 2+ pulses, warm, well-perfused, minimal edema, R groin pain d/t resolving R inguinal hematoma NEUROLOGICAL: Cranial nerves II through XII grossly intact. Normal speech, gait not observed. PSYCH: Normal mood, normal affect. SKIN: Warm, dry, normal turgor, no rashes or lesions noted Vital Signs - 24 hr 05/08/20 05/08/20 05/08/20 16:57 20:01 21:00 Temperature 98.0 F Pulse Rate 67 Respiratory 18 18 Rate Blood Pressure 154/67 O2 Sat by Pulse 96 100 100 Oximetry (%) 05/08/20 05/09/20 05/09/20 22:00 01:21 06:00 Temperature 98.0 F 97.9 F 98.9 F Pulse Rate 60 63 62 Respiratory 18 18 18 Rate Blood Pressure 149/53 L 140/70 165/63 O2 Sat by Pulse 98 Oximetry (%) 05/09/20 05/09/20 09:00 14:12 Temperature 98.6 F 98.4 F Pulse Rate 60 65 Respiratory 18 18 Rate Blood Pressure 170/79 133/58 L O2 Sat by Pulse 95 Oximetry (%) Laboratory Results - last 24 hr 05/08/20 05/08/20 05/09/20 16:43 21:41 05:48 WBC RBC Hgb Hct MCV MCH MCHC RDW Plt Count MPV Absolute Neuts (auto) Neutrophils % Lymphocytes % Monocytes % Eosinophils % Basophils % Nucleated RBC % Sodium Potassium Chloride Carbon Dioxide Anion Gap BUN Creatinine Est GFR (CKD-EPI)AfAm Est GFR (CKD-EPI)NonAf POC Glucometer 222 164 167 Random Glucose Calcium Phosphorus Magnesium Total Bilirubin AST ALT Alkaline Phosphatase Creatine Kinase Troponin I Total Protein Albumin 05/09/20 05/09/20 05/09/20 05:52 05:52 15:15 WBC 6.8 RBC 3.35 L Hgb 10.0 L Hct 30.6 L MCV 91.4 MCH 29.9 MCHC 32.7 RDW 14.6 Plt Count 228 MPV 9.1 Absolute Neuts (auto) 4.2 Neutrophils % 61.6 Lymphocytes % 27.7 Monocytes % 9.1 Eosinophils % 1.1 Basophils % 0.5 Nucleated RBC % 0 Sodium 137 Potassium 4.2 Chloride 101 Carbon Dioxide 29 Anion Gap 6 L BUN 13.7 Creatinine 1.2 Est GFR (CKD-EPI)AfAm 51.20 Est GFR (CKD-EPI)NonAf 44.17 POC Glucometer Random Glucose 165 H Calcium 9.5 Phosphorus 3.7 Magnesium 2.1 Total Bilirubin 0.8 AST 13 L ALT 15 Alkaline Phosphatase 92 Creatine Kinase 39 Troponin I < 0.02 Total Protein 6.7 Albumin 3.0 L Home Medications Medication Instructions Recorded Clopidogrel Bisulfate [Plavix] 75 mg PO DAILY 11/09/18 Diltiazem HCl [Diltiazem 24Hr Cd] 240 mg PO DAILY 11/09/18 Dorzolamide HCl [Trusopt 2% -] 1 drop OU BID 11/09/18 Ferrous Sulfate 325 mg PO DAILY 11/09/18 Furosemide [Lasix -] 40 mg PO DAILY 11/09/18 Hydroxychloroquine Sulfate 200 mg PO DAILY 11/09/18 [Plaquenil] Latanoprost 1 drop OU HS 11/09/18 Linagliptin/Metformin HCl 1 each PO BID 11/09/18 [Jentadueto 2.5 mg-500 mg Tab] Multivitamin [Multiple Vitamins] 1 each PO DAILY 11/09/18 Ondansetron [Zofran -] 4 mg PO DAILY 11/09/18 Pantoprazole Sodium 40 mg PO DAILY 11/09/18 Rosuvastatin [Crestor -] 5 mg PO HS 11/09/18 Timolol [Betimol] 1 drop OU BID 11/09/18 Isosorbide Mononitrate [Imdur -] 30 mg PO DAILY #60 tab.sr.24h 11/21/18 Acetaminophen [Tylenol -] 500 mg PO Q6H 7 Days #25 tablet NS 02/23/20 Acetaminophen [Tylenol -] 500 mg PO Q8H #100 tablet 02/23/20 Apixaban [Eliquis -] 5 mg PO BID 04/26/20 Alprazolam [Xanax] 1.5 mg PO HS 05/07/20 Cholecalciferol (Vitamin D3) 400 unit PO DAILY 05/07/20 [Vitamin D3] Labetalol HCl [Normodyne -] 400 mg PO BID 05/07/20 Current Medications Generic Name Dose Route Start Last Admin Trade Name Freq PRN Reason Stop Dose Admin Acetaminophen 650 mg 05/08/20 01:48 05/09/20 06:45 Tylenol - PO 650 mg Q4H PRN Administration PAIN 1-5 Alprazolam 1.5 mg 05/08/20 14:43 05/08/20 21:49 Xanax PO 1.5 mg HS PRN Administration INSOMNIA Apixaban 5 mg 05/07/20 22:00 05/09/20 09:18 Eliquis - PO 5 mg BID JONAS Administration Cholecalciferol 400 unit 05/09/20 10:00 05/09/20 09:18 Vitamin D3 - PO 400 unit DAILY JONAS Administration Clopidogrel Bisulfate 75 mg 05/07/20 15:45 05/09/20 09:19 Plavix - PO 75 mg DAILY JONAS Administration Diltiazem HCl 240 mg 05/07/20 15:45 05/09/20 09:18 Cardizem Cd - PO 240 mg DAILY JONAS Administration Dorzolamide HCl 1 drop 05/08/20 22:00 05/09/20 09:20 Trusopt 2% OU 1 drop BID JONAS Administration Furosemide 40 mg 05/08/20 06:00 05/09/20 13:35 Lasix Injection - IVPUSH 40 mg BID@0600,1400 JONAS Administration Hydroxychloroquine Sulfate 200 mg 05/09/20 10:00 05/09/20 11:43 Plaquenil - PO 200 mg DAILY JONAS Administration Insulin Aspart 1 vial 05/08/20 16:30 05/09/20 11:46 Novolog Vial Sliding Scale - SQ Not Given ACHS JONAS Protocol Isosorbide Mononitrate 30 mg 05/07/20 15:45 05/09/20 11:39 Imdur - PO 30 mg DAILY JONAS Administration Labetalol HCl 400 mg 05/07/20 22:00 05/09/20 09:18 Normodyne - PO 400 mg BID JONAS Administration Latanoprost 1 drop 05/08/20 22:00 05/08/20 21:53 Xalatan 0.005% Eye Drops - OU 1 drop HS JONAS Administration Multivitamins/Minerals/Vitamin C 1 tab 05/09/20 10:00 05/09/20 09:18 Tab-A-Vit - PO 1 tab DAILY JONAS Administration Pantoprazole Sodium 40 mg 05/09/20 10:00 05/09/20 09:18 Protonix - PO 40 mg DAILY JONAS Administration Rosuvastatin Calcium 5 mg 05/07/20 22:00 05/08/20 21:39 Crestor - PO 5 mg HS JONAS Administration Timolol Maleate 1 drop 05/09/20 10:00 05/09/20 09:20 Timoptic 0.5% OU 1 drop BID JONAS Administration Tramadol HCl 50 mg 05/08/20 09:32 05/09/20 15:09 Ultram - PO 50 mg Q6H PRN Administration PAIN LEVEL 7 - 10 ASSESSMENT AND PLAN: 74 F HFpEF with acute exacerbation Renal artery stenosis s/p stenting R inguinal hematoma Afib(s/p PPM (medtronic) CVA Equivocal Lupus Anticoagulant AB DVT HTN CKD Pericardial effusion AAA(s/p EVAR) Dementia Plan: Continue diuresis, transition Lasix to PO as pt. clinically euvolemic, Echo suboptimal showing minimally reduced LV EF but grossly unremarkable BP management with Labatelol Cont. Plavix/Eliquis, monitor CBC Cardiology following Renal following DC home with VNS and Vascular surgery follow up at [facility], and Cardiology clinic follow up
--- NOTE | 2020-05-09 19:09 | PN ---
Progress Note, Physician History of Present Illness: Pt seen and examined at bedside. She is awake and alert. She is more comfortable. - Current Medication List Current Medications: Active Medications Acetaminophen (Tylenol -) 650 mg PO Q4H PRN PRN Reason: PAIN 1-5 Last Admin: 05/09/20 06:45 Dose: 650 mg Documented by: Alprazolam (Xanax) 1.5 mg PO HS PRN PRN Reason: INSOMNIA Last Admin: 05/08/20 21:49 Dose: 1.5 mg Documented by: Apixaban (Eliquis -) 5 mg PO BID [facility] Last Admin: 05/09/20 09:18 Dose: 5 mg Documented by: Cholecalciferol (Vitamin D3 -) 400 unit PO DAILY [facility] Last Admin: 05/09/20 09:18 Dose: 400 unit Documented by: Clopidogrel Bisulfate (Plavix -) 75 mg PO DAILY [facility] Last Admin: 05/09/20 09:19 Dose: 75 mg Documented by: Diltiazem HCl (Cardizem Cd -) 240 mg PO DAILY [facility] Last Admin: 05/09/20 09:18 Dose: 240 mg Documented by: Dorzolamide HCl (Trusopt 2%) 1 drop OU BID [facility] Last Admin: 05/09/20 09:20 Dose: 1 drop Documented by: Furosemide (Lasix Injection -) 40 mg IVPUSH BID@0600,1400 [facility] Last Admin: 05/09/20 13:35 Dose: 40 mg Documented by: Hydroxychloroquine Sulfate (Plaquenil -) 200 mg PO DAILY [facility] Last Admin: 05/09/20 11:43 Dose: 200 mg Documented by: Insulin Aspart (Novolog Vial Sliding Scale -) 1 vial SQ ACHS [facility]; Protocol Last Admin: 05/09/20 17:57 Dose: 6 unit Documented by: Isosorbide Mononitrate (Imdur -) 30 mg PO DAILY [facility] Last Admin: 05/09/20 11:39 Dose: 30 mg Documented by: Labetalol HCl (Normodyne -) 400 mg PO BID [facility] Last Admin: 05/09/20 09:18 Dose: 400 mg Documented by: Latanoprost (Xalatan 0.005% Eye Drops -) 1 drop OU HS [facility] Last Admin: 05/08/20 21:53 Dose: 1 drop Documented by: Multivitamins/Minerals/Vitamin C (Tab-A-Vit -) 1 tab PO DAILY [facility] Last Admin: 05/09/20 09:18 Dose: 1 tab Documented by: Pantoprazole Sodium (Protonix -) 40 mg PO DAILY [facility] Last Admin: 05/09/20 09:18 Dose: 40 mg Documented by: Rosuvastatin Calcium (Crestor -) 5 mg PO HS [facility] Last Admin: 05/08/20 21:39 Dose: 5 mg Documented by: Timolol Maleate (Timoptic 0.5%) 1 drop OU BID [facility] Last Admin: 05/09/20 09:20 Dose: 1 drop Documented by: Tramadol HCl (Ultram -) 50 mg PO Q6H PRN PRN Reason: PAIN LEVEL 7 - 10 Last Admin: 05/09/20 15:09 Dose: 50 mg Documented by: - Objective Vital Signs: Vital Signs Temperature 98.4 F 05/09/20 18:00 Pulse Rate 61 05/09/20 18:00 Respiratory Rate 18 05/09/20 18:00 Blood Pressure 150/64 05/09/20 18:00 O2 Sat by Pulse Oximetry (%) 95 05/09/20 09:00 Constitutional: Yes: Calm Eyes: Yes: Conjunctiva Clear HENT: Yes: Atraumatic Neck: Yes: Supple Cardiovascular: Yes: S1, S2 Respiratory: Yes: On Nasal O2 Gastrointestinal: Yes: WNL Genitourinary: Yes: WNL Musculoskeletal: Yes: WNL Edema: No Neurological: Yes: Oriented Psychiatric: Yes: Oriented Labs: CBC, BMP 05/09/20 05:52 05/09/20 05:52 INR, PTT INR 1.63 (0.83-1.09) H 05/07/20 00:50 Problem List - Problems (1) Afib Code(s): I48.91 - UNSPECIFIED ATRIAL FIBRILLATION Qualifiers: Atrial fibrillation type: paroxysmal Qualified Code(s): I48.0 - Paroxysmal atrial fibrillation (2) CAD (coronary artery disease) Code(s): I25.10 - ATHSCL HEART DISEASE OF [place] CORONARY ARTERY W/O ANG PCTRS (3) CHF (congestive heart failure) Code(s): I50.9 - HEART FAILURE, UNSPECIFIED (4) CKD (chronic kidney disease) Code(s): N18.9 - CHRONIC KIDNEY DISEASE, UNSPECIFIED Assessment/Plan Current Medications Generic Name Dose Route Start Last Admin Trade Name Freq PRN Reason Stop Dose Admin Acetaminophen 650 mg 05/08/20 01:48 05/09/20 06:45 Tylenol - PO 650 mg Q4H PRN Administration PAIN 1-5 Alprazolam 1.5 mg 05/08/20 14:43 05/08/20 21:49 Xanax PO 1.5 mg HS PRN Administration INSOMNIA Apixaban 5 mg 05/07/20 22:00 05/09/20 09:18 Eliquis - PO 5 mg BID [facility]ON[facility] Administration Cholecalciferol 400 unit 05/09/20 10:00 05/09/20 09:18 Vitamin D3 - PO 400 unit DAILY [facility] Administration Clopidogrel Bisulfate 75 mg 05/07/20 15:45 05/09/20 09:19 Plavix - PO 75 mg DAILY [facility] Administration Diltiazem HCl 240 mg 05/07/20 15:45 05/09/20 09:18 Cardizem Cd - PO 240 mg DAILY [facility] Administration Dorzolamide HCl 1 drop 05/08/20 22:00 05/09/20 09:20 Trusopt 2% OU 1 drop BID [facility] Administration Furosemide 40 mg 05/08/20 06:00 05/09/20 13:35 Lasix Injection - IVPUSH 40 mg BID@0600,1400 [facility] Administration Hydroxychloroquine Sulfate 200 mg 05/09/20 10:00 05/09/20 11:43 Plaquenil - PO 200 mg DAILY [facility] Administration Insulin Aspart 1 vial 05/08/20 16:30 05/09/20 17:57 Novolog Vial Sliding Scale - SQ 6 unit ACHS [facility] Administration Protocol Isosorbide Mononitrate 30 mg 05/07/20 15:45 05/09/20 11:39 Imdur - PO 30 mg DAILY [facility] Administration Labetalol HCl 400 mg 05/07/20 22:00 05/09/20 09:18 Normodyne - PO 400 mg BID [facility] Administration Latanoprost 1 drop 05/08/20 22:00 05/08/20 21:53 Xalatan 0.005% Eye Drops - OU 1 drop HS [facility] Administration Multivitamins/Minerals/Vitamin C 1 tab 05/09/20 10:00 05/09/20 09:18 Tab-A-Vit - PO 1 tab DAILY [facility] Administration Pantoprazole Sodium 40 mg 05/09/20 10:00 05/09/20 09:18 Protonix - PO 40 mg DAILY [facility] Administration Rosuvastatin Calcium 5 mg 05/07/20 22:00 05/08/20 21:39 Crestor - PO 5 mg HS [facility] Administration Timolol Maleate 1 drop 05/09/20 10:00 05/09/20 09:20 Timoptic 0.5% OU 1 drop BID [facility] Administration Tramadol HCl 50 mg 05/08/20 09:32 05/09/20 15:09 Ultram - PO 50 mg Q6H PRN Administration PAIN LEVEL 7 - 10 Impression 1. ckd 2. bernardo 3. htn 4. chf 5. a-fib 6. lupus anti coagulant ab 7. pericardial effusion Plan - renal function is improved - spoke to pts daughter, her last generator technician as outpt was 1.8 - cont lasix - repeat labs in am - volume status improving - monitor blood pressure
[2020-05-09] MEDS: ROSUVASTATIN CA 5 MG TABLET (FP) PO SCH (21:53)
[2020-05-09] MEDS: ALPRAZolam 1 MG TABLET PO PRN (23:15)
[2020-05-09] MEDS: LATANOPROST 0.005% OPHTH SOLN 2.5ML BOTTLE OU SCH (23:16)
[2020-05-10] MEDS: FUROSEMIDE 40 MG/4 ML INJECTABLE VIAL IVPUSH SCH (06:20)
[2020-05-10] MEDS: INSULIN SLIDING SCALE (NOVOLOG) 1 VIAL SQ SCH ×4 (06:20→21:44)
--- NOTE | 2020-05-10 06:51 | PN ---
Progress Note, Physician Chief Complaint: repeat echo now shows improved MR- mild Denies CP/SOB/palps. History in Green[place]ic TELE: NSR History of Present Illness: Renal artery stenosis s/p renal stent acute on chronic systolic CHF Mitral regurg AF/PPM SH: non smoker. - Current Medication List Current Medications: Active Medications Acetaminophen (Tylenol -) 650 mg PO Q4H PRN PRN Reason: PAIN 1-5 Last Admin: 05/09/20 06:45 Dose: 650 mg Documented by: Alprazolam (Xanax) 1.5 mg PO HS PRN PRN Reason: INSOMNIA Last Admin: 05/09/20 23:15 Dose: 1.5 mg Documented by: Apixaban (Eliquis -) 5 mg PO BID [facility] Last Admin: 05/09/20 21:54 Dose: 5 mg Documented by: Cholecalciferol (Vitamin D3 -) 400 unit PO DAILY [facility] Last Admin: 05/09/20 09:18 Dose: 400 unit Documented by: Clopidogrel Bisulfate (Plavix -) 75 mg PO DAILY [facility] Last Admin: 05/09/20 09:19 Dose: 75 mg Documented by: Diltiazem HCl (Cardizem Cd -) 240 mg PO DAILY [facility] Last Admin: 05/09/20 09:18 Dose: 240 mg Documented by: Dorzolamide HCl (Trusopt 2%) 1 drop OU BID [facility] Last Admin: 05/09/20 22:00 Dose: 1 drop Documented by: Furosemide (Lasix Injection -) 40 mg IVPUSH BID@0600,1400 [facility] Last Admin: 05/10/20 06:20 Dose: 40 mg Documented by: Hydroxychloroquine Sulfate (Plaquenil -) 200 mg PO DAILY [facility] Last Admin: 05/09/20 11:43 Dose: 200 mg Documented by: Insulin Aspart (Novolog Vial Sliding Scale -) 1 vial SQ [facility]; Protocol Last Admin: 05/10/20 06:20 Dose: 1 unit Documented by: Isosorbide Mononitrate (Imdur -) 30 mg PO DAILY [facility] Last Admin: 05/09/20 11:39 Dose: 30 mg Documented by: Labetalol HCl (Normodyne -) 400 mg PO BID [facility] Last Admin: 05/09/20 21:54 Dose: 400 mg Documented by: Latanoprost (Xalatan 0.005% Eye Drops -) 1 drop OU HS [facility] Last Admin: 05/09/20 23:16 Dose: 1 drop Documented by: Multivitamins/Minerals/Vitamin C (Tab-A-Vit -) 1 tab PO DAILY [facility] Last Admin: 05/09/20 09:18 Dose: 1 tab Documented by: Pantoprazole Sodium (Protonix -) 40 mg PO DAILY [facility] Last Admin: 05/09/20 09:18 Dose: 40 mg Documented by: Rosuvastatin Calcium (Crestor -) 5 mg PO HS [facility] Last Admin: 05/09/20 21:53 Dose: 5 mg Documented by: Timolol Maleate (Timoptic 0.5%) 1 drop OU BID [facility] Last Admin: 05/09/20 22:01 Dose: 1 drop Documented by: Tramadol HCl (Ultram -) 50 mg PO Q6H PRN PRN Reason: PAIN LEVEL 7 - 10 Last Admin: 05/09/20 21:57 Dose: 50 mg Documented by: - Objective Vital Signs: Vital Signs Temperature 97.7 F 05/10/20 06:00 Pulse Rate 67 05/10/20 06:00 Respiratory Rate 20 05/10/20 06:00 Blood Pressure 152/60 05/10/20 06:00 O2 Sat by Pulse Oximetry (%) 95 05/09/20 21:00 Constitutional: Yes: No Distress Cardiovascular: Yes: Regular Rate and Rhythm Respiratory: Yes: Other (decreased breath sounds bases) Gastrointestinal: Yes: Soft (nt) Edema: Yes Edema: LLE: 1+, RLE: 1+ Neurological: Yes: Alert, Oriented Labs: CBC, BMP 05/09/20 05:52 05/09/20 05:52 INR, PTT INR 1.63 (0.83-1.09) H 05/07/20 00:50 Selected Entries 05/09/20 05/10/20 06:00 06:00 Weight 212 lb 179 lb 9.6 oz Laboratory Tests 04/26/20 04/26/20 04/26/20 01:14 01:14 03:04 WBC 6.3 Hgb 11.6 Plt Count 240 Sodium 139 Potassium 4.4 Creatinine 1.4 H Random Glucose 182 H Magnesium Creatine Kinase 88 Troponin I < 0.02 B-Natriuretic Peptide 3812.1 H Albumin 3.5 Urine Color Yellow Urine pH 6.5 Ur Specific [place] 1.015 Urine Protein Trace Urine Glucose (UA) Negative Urine Ketones Negative Urine Blood Negative Urine Nitrite Negative Urine Bilirubin Negative Urine Urobilinogen 0.2 Ur Leukocyte Esterase Negative COVID-19 ([facility]) 04/26/20 04/26/20 05/09/20 04:30 05:20 05:52 WBC 6.8 Hgb 10.0 L Plt Count 228 Sodium Potassium Creatinine Random Glucose Magnesium Creatine Kinase Troponin I 0.02 B-Natriuretic Peptide Albumin Urine Color Urine pH Ur Specific [place] Urine Protein Urine Glucose (UA) Urine Ketones Urine Blood Urine Nitrite Urine Bilirubin Urine Urobilinogen Ur Leukocyte Esterase COVID-19 ([facility]) Pending 05/10/20 06:10 WBC Hgb Plt Count Sodium 136 Potassium 3.9 Creatinine 1.3 Random Glucose Magnesium 1.9 Creatine Kinase Troponin I B-Natriuretic Peptide Albumin Urine Color Urine pH Ur Specific [place] Urine Protein Urine Glucose (UA) Urine Ketones Urine Blood Urine Nitrite Urine Bilirubin Urine Urobilinogen Ur Leukocyte Esterase COVID-19 ([facility]) - ....Imaging EKG: Image Reviewed Assessment/Plan IMP: Acute on chronic diastolic CHF Uncontrolled HTN Solitary kidney with progressive renal artery stenosis, possibly causing the HTN and CHF Hx of CVA CAD PAF s/p PPM Chronic HTN CKD Hypercoag state s/p DVT Remote hx of pericardial effusion REC: 1. Acute diastolic CHF: improved. - Switch to PO Lasix 40mg PO BID - monitor Cr, lytes, daily weights - repeat echo yesterday with more controlled BP and volume status optimized shows improvement in MR severity 2. HTN - improving after renal artery stent although has been difficult to manage - cont current meds from discharge from [facility] -At times above goal: add Hydralazine 10 mg BID, titrate as needed 3. YAQUELIN - s/p renal artery stent 4. Hx CVA/AF/elevated [id number] -Vasc score: -Cont Eliquis 5. CAD: remote hx PCI -On single antiplatelet rx with Plavix; Crestor 6. PAF: s/p PPM -Routine office interrogations - monitoring on tele -On labetalol, Cardizem for rate control -Eliquis 7. Chronic HTN: as above. 8. CKD: as above, close monitoring renal fx as we diurese with daily BMP 9. Hypercoag state: -s/p DVT -Followed by Heme and Rheum at [facility] and was approved for NOAC use 10. Pericardial effusion: remote hx, asx -no effusion on recent echo 11. Dispo: Discharge planning for tomorrow if stable 24 hours on PO diuretic. Assess need home O2?
[2020-05-10 07:57] LABS: BLOOD UREA NITROGEN 18.5 mg/dL (7-18); CALCIUM 9.6 mg/dL (8.5-10.1); CREATININE 1.3 mg/dL (0.55-1.3); MAGNESIUM 1.9 mg/dL (1.8-2.4); PHOSPHOROUS 3.4 mg/dL (2.5-4.9); POTASSIUM 3.9 mmol/L (3.5-5.1)
[2020-05-10] MEDS ORDERED: PT OWN MED DRAWER 7, Y5N ONE (09:16)
[2020-05-10] MEDS: LABETALOL HCL 200 MG TABLET (FP) PO SCH ×2 (09:31→21:47)
[2020-05-10] MEDS: APIXABAN 5 MG TABLET PO SCH ×2 (09:31→21:47)
[2020-05-10] MEDS: PANTOPRAZOLE 40 MG TABLET PO SCH (09:31)
[2020-05-10] MEDS: CHOLECALCIFEROL (VIT D3) 400 UNIT (10 MCG) TABLET PO SCH (09:31)
[2020-05-10] MEDS: ISOSORBIDE MONONITRATE 30 MG TAB.SR.24H (FP) PO SCH (09:31)
[2020-05-10] MEDS: TIMOLOL 0.5% OPHTHALMIC SOL 5 ML BOTTLE OU SCH ×2 (09:32→21:57)
[2020-05-10] MEDS: HYDROXYCHLOROQUINE SO4 200 MG TABLET (FP) PO SCH (09:32)
[2020-05-10] MEDS: CLOPIDOGREL BISULFATE 75 MG TABLET (FP) PO SCH (09:32)
[2020-05-10] MEDS: MULTIVITAMINS (DAILY MVI) TABLET (FP) PO SCH (09:32)
[2020-05-10] MEDS: DORZOLAMIDE 2% HCL OPHTHALMIC SOLUTION 10 ML BOTTLE OU SCH ×2 (09:32→21:56)
[2020-05-10] MEDS: hydrALAZINE HCL 10 MG TABLET PO SCH ×2 (09:47→21:49)
[2020-05-10] MEDS ORDERED: PATIENT'S OWN MEDICATION (NON-FORMULARY) (Linaclotide [Linzess] 290 MCG) PO SCH (10:00)
--- NOTE | 2020-05-10 14:44 | PN ---
Progress Note, Physician History of Present Illness: Pt seen and examined at bedside. SHe is awake and alert. SHe feels that her breathing is improved. - Current Medication List Current Medications: Active Medications Acetaminophen (Tylenol -) 650 mg PO Q4H PRN PRN Reason: PAIN 1-5 Last Admin: 05/09/20 06:45 Dose: 650 mg Documented by: Alprazolam (Xanax) 1.5 mg PO HS PRN PRN Reason: INSOMNIA Last Admin: 05/09/20 23:15 Dose: 1.5 mg Documented by: Apixaban (Eliquis -) 5 mg PO BID [facility] Last Admin: 05/10/20 09:31 Dose: 5 mg Documented by: Cholecalciferol (Vitamin D3 -) 400 unit PO DAILY [facility] Last Admin: 05/10/20 09:31 Dose: 400 unit Documented by: Clopidogrel Bisulfate (Plavix -) 75 mg PO DAILY [facility] Last Admin: 05/10/20 09:32 Dose: 75 mg Documented by: Diltiazem HCl (Cardizem Cd -) 240 mg PO DAILY [facility] Last Admin: 05/10/20 09:31 Dose: 240 mg Documented by: Dorzolamide HCl (Trusopt 2%) 1 drop OU BID [facility] Last Admin: 05/10/20 09:32 Dose: 1 drop Documented by: Furosemide (Lasix -) 40 mg PO BID@0600,1400 [facility] Hydralazine HCl (Apresoline -) 10 mg PO BID [facility] Last Admin: 05/10/20 09:47 Dose: 10 mg Documented by: Hydroxychloroquine Sulfate (Plaquenil -) 200 mg PO DAILY [facility] Last Admin: 05/10/20 09:32 Dose: 200 mg Documented by: Insulin Aspart (Novolog Vial Sliding Scale -) 1 vial SQ ACHS [facility]; Protocol Last Admin: 05/10/20 12:00 Dose: 4 unit Documented by: Isosorbide Mononitrate (Imdur -) 30 mg PO DAILY [facility] Last Admin: 05/10/20 09:31 Dose: 30 mg Documented by: Labetalol HCl (Normodyne -) 400 mg PO BID [facility] Last Admin: 05/10/20 09:31 Dose: 400 mg Documented by: Latanoprost (Xalatan 0.005% Eye Drops -) 1 drop OU HS [facility] Last Admin: 05/09/20 23:16 Dose: 1 drop Documented by: Multivitamins/Minerals/Vitamin C (Tab-A-Vit -) 1 tab PO DAILY [facility] Last Admin: 05/10/20 09:32 Dose: 1 tab Documented by: Non-Formulary Medication (Linaclotide [Linzess]) 290 mcg PO MoWeFr@1000 [facility] Last Admin: 05/10/20 10:17 Dose: 290 mcg Documented by: Non-Formulary Medication (Linaclotide [Linzess]) 145 mcg PO SuTuThSa@1000 [facility] Pantoprazole Sodium (Protonix -) 40 mg PO DAILY [facility] Last Admin: 05/10/20 09:31 Dose: 40 mg Documented by: Rosuvastatin Calcium (Crestor -) 5 mg PO HS [facility] Last Admin: 05/09/20 21:53 Dose: 5 mg Documented by: Timolol Maleate (Timoptic 0.5%) 1 drop OU BID [facility] Last Admin: 05/10/20 09:32 Dose: 1 drop Documented by: Tramadol HCl (Ultram -) 50 mg PO Q6H PRN PRN Reason: PAIN LEVEL 7 - 10 Last Admin: 05/09/20 21:57 Dose: 50 mg Documented by: - Objective Vital Signs: Vital Signs Temperature 97.8 F 05/10/20 09:00 Pulse Rate 66 05/10/20 09:00 Respiratory Rate 20 05/10/20 09:00 Blood Pressure 175/75 H 05/10/20 09:00 O2 Sat by Pulse Oximetry (%) 92 L 05/10/20 09:00 Constitutional: Yes: Calm Eyes: Yes: Conjunctiva Clear HENT: Yes: Atraumatic Neck: Yes: Supple Cardiovascular: Yes: S1, S2 Respiratory: Yes: CTA Bilaterally Gastrointestinal: Yes: Soft Genitourinary: Yes: WNL Musculoskeletal: Yes: WNL Edema: No Neurological: Yes: Oriented Psychiatric: Yes: Oriented Labs: CBC, BMP 05/09/20 05:52 05/10/20 06:10 INR, PTT INR 1.63 (0.83-1.09) H 05/07/20 00:50 Problem List - Problems (1) Afib Code(s): I48.91 - UNSPECIFIED ATRIAL FIBRILLATION Qualifiers: Atrial fibrillation type: paroxysmal Qualified Code(s): I48.0 - Paroxysmal atrial fibrillation (2) CAD (coronary artery disease) Code(s): I25.10 - ATHSCL HEART DISEASE OF [place] CORONARY ARTERY W/O ANG PCTRS (3) CHF (congestive heart failure) Code(s): I50.9 - HEART FAILURE, UNSPECIFIED (4) CKD (chronic kidney disease) Code(s): N18.9 - CHRONIC KIDNEY DISEASE, UNSPECIFIED Assessment/Plan Current Medications Generic Name Dose Route Start Last Admin Trade Name Freq PRN Reason Stop Dose Admin Acetaminophen 650 mg 05/08/20 01:48 05/09/20 06:45 Tylenol - PO 650 mg Q4H PRN Administration PAIN 1-5 Alprazolam 1.5 mg 05/08/20 14:43 05/09/20 23:15 Xanax PO 1.5 mg HS PRN Administration INSOMNIA Apixaban 5 mg 05/07/20 22:00 05/10/20 09:31 Eliquis - PO 5 mg BID [facility] Administration Cholecalciferol 400 unit 05/09/20 10:00 05/10/20 09:31 Vitamin D3 - PO 400 unit DAILY [facility] Administration Clopidogrel Bisulfate 75 mg 05/07/20 15:45 05/10/20 09:32 Plavix - PO 75 mg DAILY [facility] Administration Diltiazem HCl 240 mg 05/07/20 15:45 05/10/20 09:31 Cardizem Cd - PO 240 mg DAILY [facility] Administration Dorzolamide HCl 1 drop 05/08/20 22:00 05/10/20 09:32 Trusopt 2% OU 1 drop BID [facility] Administration Furosemide 40 mg 05/10/20 14:00 Lasix - PO BID@0600,1400 [facility] Hydralazine HCl 10 mg 05/10/20 10:00 05/10/20 09:47 Apresoline - PO 10 mg BID [facility] Administration Hydroxychloroquine Sulfate 200 mg 05/09/20 10:00 05/10/20 09:32 Plaquenil - PO 200 mg DAILY [facility] Administration Insulin Aspart 1 vial 05/08/20 16:30 05/10/20 12:00 Novolog Vial Sliding Scale - SQ 4 unit ACHS [facility] Administration Protocol Isosorbide Mononitrate 30 mg 05/07/20 15:45 05/10/20 09:31 Imdur - PO 30 mg DAILY [facility] Administration Labetalol HCl 400 mg 05/07/20 22:00 05/10/20 09:31 Normodyne - PO 400 mg BID [facility] Administration Latanoprost 1 drop 05/08/20 22:00 05/09/20 23:16 Xalatan 0.005% Eye Drops - OU 1 drop HS [facility] Administration Multivitamins/Minerals/Vitamin C 1 tab 05/09/20 10:00 05/10/20 09:32 Tab-A-Vit - PO 1 tab DAILY [facility] Administration Non-Formulary Medication 290 mcg 05/10/20 10:00 05/10/20 10:17 Linaclotide [Linzess] PO 290 mcg MoWeFr@1000 [facility] Administration Non-Formulary Medication 145 mcg 05/11/20 10:00 Linaclotide [Linzess] PO SuTuThSa@1000 [facility] Pantoprazole Sodium 40 mg 05/09/20 10:00 05/10/20 09:31 Protonix - PO 40 mg DAILY [facility] Administration Rosuvastatin Calcium 5 mg 05/07/20 22:00 05/09/20 21:53 Crestor - PO 5 mg HS [facility] Administration Timolol Maleate 1 drop 05/09/20 10:00 05/10/20 09:32 Timoptic 0.5% OU 1 drop BID [facility] Administration Tramadol HCl 50 mg 05/08/20 09:32 05/09/20 21:57 Ultram - PO 50 mg Q6H PRN Administration PAIN LEVEL 7 - 10 Impression 1. ckd (has parquet floor layer of 1.8 from last hospitalization) 2. bernardo 3. htn 4. chf 5. a-fib 6. lupus anti coagulant ab 7. pericardial effusion Plan - agree with po lasix - renal function stable - will need outpt follow up - can see in office - monitor bp - will follow prn
[2020-05-10] MEDS: FUROSEMIDE 40 MG TABLET (FP) PO SCH (14:47)
--- NOTE | 2020-05-10 15:11 | PN ---
Physical Exam: SUBJECTIVE: Patient seen and examined. No acute events overnight. OBJECTIVE: Vital Signs Temperature 98.0 F 05/10/20 18:00 Pulse Rate 60 05/10/20 18:00 Respiratory Rate 20 05/10/20 18:00 Blood Pressure 128/50 L 05/10/20 18:00 O2 Sat by Pulse Oximetry (%) 96 05/10/20 21:07 GENERAL: The patient is awake, alert, on 3L NC, saturating 99% HEAD: Normal with no signs of trauma. EYES: PERRLA, EOMI ENT: moist mucous membranes. NECK: supple. LUNGS: decreased breath sounds bilateral bases HEART: Regular rate and rhythm, S1, S2 ABDOMEN: Soft, nontender, nondistended, normoactive bowel sounds EXTREMITIES: 2+ pulses, warm, well-perfused, no pitting edema SKIN: Warm, dry, normal turgor Laboratory Results - last 24 hr 05/09/20 05/09/20 05/09/20 15:15 17:53 20:57 Sodium Potassium Chloride Carbon Dioxide Anion Gap BUN Creatinine Est GFR (CKD-EPI)AfAm Est GFR (CKD-EPI)NonAf POC Glucometer 268 155 Random Glucose Calcium Phosphorus Magnesium Creatine Kinase 39 Troponin I < 0.02 05/10/20 05/10/20 05/10/20 05:52 06:10 11:26 Sodium 136 Potassium 3.9 Chloride 98 Carbon Dioxide 32 Anion Gap 6 L BUN 18.5 H Creatinine 1.3 Est GFR (CKD-EPI)AfAm 46.47 Est GFR (CKD-EPI)NonAf 40.10 POC Glucometer 186 201 Random Glucose 171 H Calcium 9.6 Phosphorus 3.4 Magnesium 1.9 Creatine Kinase Troponin I Active Medications Generic Name Dose Route Start Last Admin Trade Name Freq PRN Reason Stop Dose Admin Acetaminophen 650 mg 05/08/20 01:48 05/09/20 06:45 Tylenol - PO 650 mg Q4H PRN Administration PAIN 1-5 Alprazolam 1.5 mg 05/08/20 14:43 05/09/20 23:15 Xanax PO 1.5 mg HS PRN Administration INSOMNIA Apixaban 5 mg 05/07/20 22:00 05/10/20 09:31 Eliquis - PO 5 mg BID JONAS Administration Cholecalciferol 400 unit 05/09/20 10:00 05/10/20 09:31 Vitamin D3 - PO 400 unit DAILY JONAS Administration Clopidogrel Bisulfate 75 mg 05/07/20 15:45 05/10/20 09:32 Plavix - PO 75 mg DAILY JONAS Administration Diltiazem HCl 240 mg 05/07/20 15:45 05/10/20 09:31 Cardizem Cd - PO 240 mg DAILY JONAS Administration Dorzolamide HCl 1 drop 05/08/20 22:00 05/10/20 09:32 Trusopt 2% OU 1 drop BID JONAS Administration Furosemide 40 mg 05/10/20 14:00 05/10/20 14:47 Lasix - PO 40 mg BID@0600,1400 JONAS Administration Hydralazine HCl 10 mg 05/10/20 10:00 05/10/20 09:47 Apresoline - PO 10 mg BID JONAS Administration Hydroxychloroquine Sulfate 200 mg 05/09/20 10:00 05/10/20 09:32 Plaquenil - PO 200 mg DAILY JONAS Administration Insulin Aspart 1 vial 05/08/20 16:30 05/10/20 12:00 Novolog Vial Sliding Scale - SQ 4 unit ACHS JONAS Administration Protocol Isosorbide Mononitrate 30 mg 05/07/20 15:45 05/10/20 09:31 Imdur - PO 30 mg DAILY JONAS Administration Labetalol HCl 400 mg 05/07/20 22:00 05/10/20 09:31 Normodyne - PO 400 mg BID JONAS Administration Latanoprost 1 drop 05/08/20 22:00 05/09/20 23:16 Xalatan 0.005% Eye Drops - OU 1 drop HS JONAS Administration Multivitamins/Minerals/Vitamin C 1 tab 05/09/20 10:00 05/10/20 09:32 Tab-A-Vit - PO 1 tab DAILY JONAS Administration Non-Formulary Medication 290 mcg 05/10/20 10:00 05/10/20 10:17 Linaclotide [Linzess] PO 290 mcg MoWeFr@[facility] Administration Non-Formulary Medication 145 mcg 05/11/20 10:00 Linaclotide [Linzess] PO SuTuThSa@[facility] Pantoprazole Sodium 40 mg 05/09/20 10:00 05/10/20 09:31 Protonix - PO 40 mg DAILY JONAS Administration Rosuvastatin Calcium 5 mg 05/07/20 22:00 05/09/20 21:53 Crestor - PO 5 mg HS JONAS Administration Timolol Maleate 1 drop 05/09/20 10:00 05/10/20 09:32 Timoptic 0.5% OU 1 drop BID JONAS Administration Tramadol HCl 50 mg 05/08/20 09:32 05/09/20 21:57 Ultram - PO 50 mg Q6H PRN Administration PAIN LEVEL 7 - 10 ASSESSMENT/PLAN: Patient is a 74 year old female with past medical history significant for afib(s/p PPM (medtronic), CVA, Equivocal Lupus Anticoagulant AB (followed by Rheum and Brianna at [facility]), DVT, HTN, renal artery stenosis, CKD, pericardial effusion, chronic diastolic CHF, AAA(s/p EVAR) and dementia, presented to the ER for worsening SOB for last few days. Patient was admitted for acute on chronic CHF. #Acute on chronic diastolic CHF -improved -Lasix switched to PO 40mg bid, -will monitor overnight -monitor Cr, lytes, daily weights -Echo done yesterday - improvement of MR severity -Cardiology consulted. REcommendations appreciated. #HTN -improving after renal artery stent although has been difficult to manage -cont current meds: Cardizem 240mg daily, ISMN 30mg daily, IV Lasix, Labetalol 400mg bid -Hydralazine 10mg bid added, titrate as needed #YAQUELIN -s/p renal artery stent -Vascular surgery (Dr. Higgins) consulted. REcommendations appreciated. -CT shows 2.5 cm hematoma in subQ, no retroperitoneal hematoma. -This is not unusual and requires no intervention,. -follow up with the vascular surgeon at [facility]. #Hx CVA -Cont Eliquis, Plavix and Lipitor #Hx of CAD -s/p PCI -continue Plavix, Crestor #PAF -s/p PPM -Routine office interrogations -monitoring on tele -On Labetalol, Cardizem for rate control -Eliquis #CKD -stable, will continue to monitor renal function and electrolytes #DVT -Followed by Brianna and Rheum at [facility] -continue Eliquis #Hx of Pericardial effusion -no effusion on recent echo #FEN -Not on any standing fluids -Electrolytes wnl, routine bmp monitoring -Diabetic/sodium restricted diet #Prophylaxis -Eliquis 5mg bid #Disposition -tele monitoring -plan for discharge tomorrow, will monitor overnight on PO lasix -Pre and post done by RT, patient does not qualify for home oxygen Visit type - Emergency Visit Emergency Visit: Yes ED Registration Date: 05/07/20 Care time: The patient presented to the Emergency Department on the above date and was hospitalized for further evaluation of their emergent condition. - New Patient This patient is new to me today: No - Critical Care Critical Care patient: No ATTENDING PHYSICIAN STATEMENT I saw and evaluated the patient. I reviewed the resident's note and discussed the case with the resident. I agree with the resident's findings and plan as documented. SUBJECTIVE: OBJECTIVE: ASSESSMENT AND PLAN:
--- NOTE | 2020-05-10 19:09 | PN ---
Teaching Attending Note Name of Resident: Colleen Cadet ATTENDING PHYSICIAN STATEMENT I saw and evaluated the patient. I reviewed the resident's note and discussed the case with the resident. I agree with the resident's findings and plan as documented. SUBJECTIVE: Patient seen and examined at bedside, Echo grossly unremarkable, Cardio recommending 1 more day of diuresis, anticipate DC in AM. VSS. OBJECTIVE: GENERAL: The patient is awake, alert, and fully oriented, in no acute distress. HEENT NC/AT, EOMI, neck supple, dry MM, no JVD LUNGS: Good air entry b/l, no crackles or wheezing CVS: S1, S2+, RRR, SEVEN+ Abd: Obese, Soft, NT, BS+, no guarding Ext: 2+ pulses, warm, well-perfused, no edema, R groin pain d/t resolving R ing uinal hematoma NEUROLOGICAL: Cranial nerves II through XII grossly intact. Normal speech, gait not observed. PSYCH: Normal mood, normal affect. SKIN: Warm, dry, normal turgor, no rashes or lesions noted Vital Signs - 24 hr 05/09/20 05/09/20 05/10/20 21:00 22:00 02:00 Temperature 98.2 F 98.5 F Pulse Rate 63 Respiratory 18 18 20 Rate Blood Pressure 147/68 145/74 O2 Sat by Pulse 95 Oximetry (%) 05/10/20 05/10/20 05/10/20 06:00 09:00 14:10 Temperature 97.7 F 97.8 F 98 F Pulse Rate 67 66 65 Respiratory 20 20 18 Rate Blood Pressure 152/60 175/75 H 136/64 O2 Sat by Pulse 92 L Oximetry (%) 05/10/20 05/10/20 15:48 18:00 Temperature 98.0 F Pulse Rate 62 60 Respiratory 20 Rate Blood Pressure 128/50 L O2 Sat by Pulse 98 Oximetry (%) Laboratory Results - last 24 hr 05/09/20 05/10/20 05/10/20 20:57 05:52 06:10 Sodium 136 Potassium 3.9 Chloride 98 Carbon Dioxide 32 Anion Gap 6 L BUN 18.5 H Creatinine 1.3 Est GFR (CKD-EPI)AfAm 46.47 Est GFR (CKD-EPI)NonAf 40.10 POC Glucometer 155 186 Random Glucose 171 H Calcium 9.6 Phosphorus 3.4 Magnesium 1.9 05/10/20 05/10/20 11:26 17:07 Sodium Potassium Chloride Carbon Dioxide Anion Gap BUN Creatinine Est GFR (CKD-EPI)AfAm Est GFR (CKD-EPI)NonAf POC Glucometer 201 232 Random Glucose Calcium Phosphorus Magnesium Home Medications Medication Instructions Recorded Clopidogrel Bisulfate [Plavix] 75 mg PO DAILY 11/09/18 Diltiazem HCl [Diltiazem 24Hr Cd] 240 mg PO DAILY 11/09/18 Dorzolamide HCl [Trusopt 2% -] 1 drop OU BID 11/09/18 Ferrous Sulfate 325 mg PO DAILY 11/09/18 Furosemide [Lasix -] 40 mg PO DAILY 11/09/18 Hydroxychloroquine Sulfate 200 mg PO DAILY 11/09/18 [Plaquenil] Latanoprost 1 drop OU HS 11/09/18 Linagliptin/Metformin HCl 1 each PO BID 11/09/18 [Jentadueto 2.5 mg-500 mg Tab] Multivitamin [Multiple Vitamins] 1 each PO DAILY 11/09/18 Ondansetron [Zofran -] 4 mg PO DAILY 11/09/18 Pantoprazole Sodium 40 mg PO DAILY 11/09/18 Rosuvastatin [Crestor -] 5 mg PO HS 11/09/18 Timolol [Betimol] 1 drop OU BID 11/09/18 Isosorbide Mononitrate [Imdur -] 30 mg PO DAILY #60 tab.sr.24h 11/21/18 Acetaminophen [Tylenol -] 500 mg PO Q6H 7 Days #25 tablet NS 02/23/20 Acetaminophen [Tylenol -] 500 mg PO Q8H #100 tablet 02/23/20 Apixaban [Eliquis -] 5 mg PO BID 04/26/20 Alprazolam [Xanax] 1.5 mg PO HS 05/07/20 Cholecalciferol (Vitamin D3) 400 unit PO DAILY 05/07/20 [Vitamin D3] Labetalol HCl [Normodyne -] 400 mg PO BID 05/07/20 Linaclotide [Linzess] 145 mcg PO DAILY 05/10/20 Current Medications Generic Name Dose Route Start Last Admin Trade Name Freq PRN Reason Stop Dose Admin Acetaminophen 650 mg 05/08/20 01:48 05/09/20 06:45 Tylenol - PO 650 mg Q4H PRN Administration PAIN 1-5 Alprazolam 1.5 mg 05/08/20 14:43 05/09/20 23:15 Xanax PO 1.5 mg HS PRN Administration INSOMNIA Apixaban 5 mg 05/07/20 22:00 05/10/20 09:31 Eliquis - PO 5 mg BID JONAS Administration Cholecalciferol 400 unit 05/09/20 10:00 05/10/20 09:31 Vitamin D3 - PO 400 unit DAILY JONAS Administration Clopidogrel Bisulfate 75 mg 05/07/20 15:45 05/10/20 09:32 Plavix - PO 75 mg DAILY JONAS Administration Diltiazem HCl 240 mg 05/07/20 15:45 05/10/20 09:31 Cardizem Cd - PO 240 mg DAILY JONAS Administration Dorzolamide HCl 1 drop 05/08/20 22:00 05/10/20 09:32 Trusopt 2% OU 1 drop BID JONAS Administration Furosemide 40 mg 05/10/20 14:00 05/10/20 14:47 Lasix - PO 40 mg BID@0600,1400 JONAS Administration Hydralazine HCl 10 mg 05/10/20 10:00 05/10/20 09:47 Apresoline - PO 10 mg BID JONAS Administration Hydroxychloroquine Sulfate 200 mg 05/09/20 10:00 05/10/20 09:32 Plaquenil - PO 200 mg DAILY JONAS Administration Insulin Aspart 1 vial 05/08/20 16:30 05/10/20 17:09 Novolog Vial Sliding Scale - SQ 4 unit ACHS JONAS Administration Protocol Isosorbide Mononitrate 30 mg 05/07/20 15:45 05/10/20 09:31 Imdur - PO 30 mg DAILY JONAS Administration Labetalol HCl 400 mg 05/07/20 22:00 05/10/20 09:31 Normodyne - PO 400 mg BID JONAS Administration Latanoprost 1 drop 05/08/20 22:00 05/09/20 23:16 Xalatan 0.005% Eye Drops - OU 1 drop HS JONAS Administration Multivitamins/Minerals/Vitamin C 1 tab 05/09/20 10:00 05/10/20 09:32 Tab-A-Vit - PO 1 tab DAILY JONAS Administration Non-Formulary Medication 290 mcg 05/10/20 10:00 05/10/20 10:17 Linaclotide [Linzess] PO 290 mcg MoWeFr@1000 JONAS Administration Non-Formulary Medication 145 mcg 05/11/20 10:00 Linaclotide [Linzess] PO SuTuThSa@1000 JONAS Pantoprazole Sodium 40 mg 05/09/20 10:00 05/10/20 09:31 Protonix - PO 40 mg DAILY JONAS Administration Rosuvastatin Calcium 5 mg 05/07/20 22:00 05/09/20 21:53 Crestor - PO 5 mg HS JONAS Administration Timolol Maleate 1 drop 05/09/20 10:00 05/10/20 09:32 Timoptic 0.5% OU 1 drop BID JONAS Administration Tramadol HCl 50 mg 05/08/20 09:32 05/09/20 21:57 Ultram - PO 50 mg Q6H PRN Administration PAIN LEVEL 7 - 10 ASSESSMENT AND PLAN: 74 F HFpEF with acute exacerbation Renal artery stenosis s/p stenting R inguinal hematoma Afib(s/p PPM (medtronic) CVA Equivocal Lupus Anticoagulant AB DVT HTN CKD Pericardial effusion AAA(s/p EVAR) Dementia Plan: Continue diuresis, transition Lasix to PO, had extensive conversation with patient/daughter/son regarding liquid restriction and medication compliance BP management with Labatelol Cont. Plavix/Eliquis, monitor CBC Cardiology following Renal following DC home in AM with VNS
[2020-05-10] MEDS: ROSUVASTATIN CA 5 MG TABLET (FP) PO SCH (21:48)
[2020-05-10] MEDS: ALPRAZolam 1 MG TABLET PO PRN (21:48)
[2020-05-10] MEDS: LATANOPROST 0.005% OPHTH SOLN 2.5ML BOTTLE OU SCH (21:55)
[2020-05-11] MEDS: FUROSEMIDE 40 MG TABLET (FP) PO SCH ×2 (06:05→14:14)
[2020-05-11] MEDS: INSULIN SLIDING SCALE (NOVOLOG) 1 VIAL SQ SCH ×2 (06:07→12:01)
--- NOTE | 2020-05-11 06:32 | PN ---
Progress Note, Physician Chief Complaint: BP trend much improved with addition hydralazine BID Denies CP/SOB/palps Appears comfortable TELE: NSR w/ intermittent demand A-pacing. History of Present Illness: PAF s/p PPM Renal artery stenosis precipitating acute CHF s/p renal stent Lance Timmons Admitted with residual volume overload and HTN, now improved. MR, dynamic and appears worse with HTN and volume overload S/p CVA CKD SH: lives at home, daughter is caregiver; nonsmoker - Current Medication List Current Medications: Active Medications Acetaminophen (Tylenol -) 650 mg PO Q4H PRN PRN Reason: PAIN 1-5 Last Admin: 05/09/20 06:45 Dose: 650 mg Documented by: Alprazolam (Xanax) 1.5 mg PO HS PRN PRN Reason: INSOMNIA Last Admin: 05/10/20 21:48 Dose: 1.5 mg Documented by: Apixaban (Eliquis -) 5 mg PO BID [facility] Last Admin: 05/10/20 21:47 Dose: 5 mg Documented by: Cholecalciferol (Vitamin D3 -) 400 unit PO DAILY [facility] Last Admin: 05/10/20 09:31 Dose: 400 unit Documented by: Clopidogrel Bisulfate (Plavix -) 75 mg PO DAILY [facility] Last Admin: 05/10/20 09:32 Dose: 75 mg Documented by: Diltiazem HCl (Cardizem Cd -) 240 mg PO DAILY [facility] Last Admin: 05/10/20 09:31 Dose: 240 mg Documented by: Dorzolamide HCl (Trusopt 2%) 1 drop OU BID [facility] Last Admin: 05/10/20 21:56 Dose: 1 drop Documented by: Furosemide (Lasix -) 40 mg PO BID@0600,1400 [facility] Last Admin: 05/11/20 06:05 Dose: 40 mg Documented by: Hydralazine HCl (Apresoline -) 10 mg PO BID [facility] Last Admin: 05/10/20 21:49 Dose: 10 mg Documented by: Hydroxychloroquine Sulfate (Plaquenil -) 200 mg PO DAILY [facility] Last Admin: 05/10/20 09:32 Dose: 200 mg Documented by: Insulin Aspart (Novolog Vial Sliding Scale -) 1 vial SQ ACHS [facility]; Protocol Last Admin: 05/11/20 06:07 Dose: 2 unit Documented by: Isosorbide Mononitrate (Imdur -) 30 mg PO DAILY [facility] Last Admin: 05/10/20 09:31 Dose: 30 mg Documented by: Labetalol HCl (Normodyne -) 400 mg PO BID [facility] Last Admin: 05/10/20 21:47 Dose: 400 mg Documented by: Latanoprost (Xalatan 0.005% Eye Drops -) 1 drop OU [facility] Last Admin: 05/10/20 21:55 Dose: 1 drop Documented by: Multivitamins/Minerals/Vitamin C (Tab-A-Vit -) 1 tab PO DAILY [facility] Last Admin: 05/10/20 09:32 Dose: 1 tab Documented by: Non-Formulary Medication (Linaclotide [Linzess]) 290 mcg PO MoWeFr@1000 [facility] Last Admin: 05/10/20 10:17 Dose: 290 mcg Documented by: Non-Formulary Medication (Linaclotide [Linzess]) 145 mcg PO SuTuThSa@1000 [facility] Pantoprazole Sodium (Protonix -) 40 mg PO DAILY [facility] Last Admin: 05/10/20 09:31 Dose: 40 mg Documented by: Rosuvastatin Calcium (Crestor -) 5 mg PO [facility] Last Admin: 05/10/20 21:48 Dose: 5 mg Documented by: Timolol Maleate (Timoptic 0.5%) 1 drop OU BID [facility] Last Admin: 05/10/20 21:57 Dose: 1 drop Documented by: Tramadol HCl (Ultram -) 50 mg PO Q6H PRN PRN Reason: PAIN LEVEL 7 - 10 Last Admin: 05/09/20 21:57 Dose: 50 mg Documented by: - Objective Vital Signs: Vital Signs Temperature 98.1 F 05/11/20 01:31 Pulse Rate 62 05/11/20 01:31 Respiratory Rate 20 05/11/20 01:31 Blood Pressure 141/58 L 05/11/20 01:31 O2 Sat by Pulse Oximetry (%) 96 05/10/20 21:07 Constitutional: Yes: No Distress, Calm Eyes: Yes: Conjunctiva Clear, EOM Intact Cardiovascular: Yes: Regular Rate and Rhythm Respiratory: Yes: CTA Bilaterally Gastrointestinal: Yes: Soft (nt) Edema: No Neurological: Yes: Alert, Weakness Labs: CBC, BMP 05/09/20 05:52 05/10/20 06:10 INR, PTT INR 1.63 (0.83-1.09) H 05/07/20 00:50 - ....Imaging EKG: Image Reviewed Assessment/Plan IMP: Acute on chronic diastolic CHF Uncontrolled HTN Solitary kidney with progressive renal artery stenosis, possibly causing the HTN and CHF Hx of CVA CAD PAF s/p PPM Chronic HTN CKD Hypercoag state s/p DVT Remote hx of pericardial effusion REC: 1. Acute diastolic CHF: improved. - Switched to PO Lasix 40mg PO BID 05/10 - creatinine baseline is 1.5-1.7 - repeat echo Thurs with more controlled BP and volume status optimized shows improvement in MR severity 2. HTN - improving after renal artery stent although has been difficult to manage - cont current meds from discharge from [facility] -Now at goal over last 24 hours with addition of hydralazine 10 mg BID, titrate as needed as outpt 3. YAQUELIN - s/p renal artery stent 4. Hx CVA/AF/elevated [id number] -Vasc score: -Cont Eliquis 5. CAD: remote hx PCI -On single antiplatelet rx with Plavix; Crestor 6. PAF: s/p PPM -Routine office interrogations - rhythm stable, d/c tele -On labetalol, Cardizem for rate control -Eliquis 7. Chronic HTN: as above. 8. CKD: as above, renal fx stable and at baseline 9. Hypercoag state: -s/p DVT -Followed by Heme and Rheum at [facility] and was approved for NOAC use 10. Pericardial effusion: remote hx, asx -no effusion on recent echo 11. Dispo: Discharge planning for later today if has adequate help at home. Assess need home O2?
[2020-05-11 06:46] VITALS: TEMP 98.5
[2020-05-11] MEDS: traMADol HCL 50 MG TABLET PO PRN (06:50)
[2020-05-11 07:15] LABS: BLOOD UREA NITROGEN 21.9 mg/dL (7-18); CALCIUM 9.5 mg/dL (8.5-10.1); CREATININE 1.5 mg/dL (0.55-1.3); POTASSIUM 3.7 mmol/L (3.5-5.1)
[2020-05-11] MEDS: CHOLECALCIFEROL (VIT D3) 400 UNIT (10 MCG) TABLET PO SCH (09:38)
[2020-05-11] MEDS: hydrALAZINE HCL 10 MG TABLET PO SCH (09:38)
[2020-05-11] MEDS: ISOSORBIDE MONONITRATE 30 MG TAB.SR.24H (FP) PO SCH (09:38)
[2020-05-11] MEDS: PANTOPRAZOLE 40 MG TABLET PO SCH (09:38)
[2020-05-11] MEDS: MULTIVITAMINS (DAILY MVI) TABLET (FP) PO SCH (09:38)
[2020-05-11] MEDS: CLOPIDOGREL BISULFATE 75 MG TABLET (FP) PO SCH (09:38)
[2020-05-11] MEDS: APIXABAN 5 MG TABLET PO SCH (09:38)
[2020-05-11] MEDS: LABETALOL HCL 200 MG TABLET (FP) PO SCH (09:38)
[2020-05-11] MEDS: HYDROXYCHLOROQUINE SO4 200 MG TABLET (FP) PO SCH (09:39)
[2020-05-11] MEDS: DORZOLAMIDE 2% HCL OPHTHALMIC SOLUTION 10 ML BOTTLE OU SCH (09:40)
[2020-05-11] MEDS: TIMOLOL 0.5% OPHTHALMIC SOL 5 ML BOTTLE OU SCH (09:41)
[2020-05-11] MEDS ORDERED: PATIENT'S OWN MEDICATION (NON-FORMULARY) (Linaclotide [Linzess] 145 MCG) PO SCH (10:00)
[2020-05-11 11:02] VITALS: BP 145/78; PULSE 64
== END 2020-05-11 16:14 | disposition home health service (06) | DRG 291 ==
LOC: JER 01:14 → JERBED 02:41 → J4W 18:28
PROVIDERS: ADMIT Internal Medicine
DX: I13.0 Hypertensive heart and chronic kidney disease with heart failure and stage 1 through stage 4 chronic kidney disease, or unspecified chronic kidney disease (principal); I50.33 Acute on chronic diastolic (congestive) heart failure; I69.351 Hemiplegia and hemiparesis following cerebral infarction affecting right dominant side; D68.61 Antiphospholipid syndrome; I31.3 Pericardial effusion (noninflammatory); K21.9 Gastro-esophageal reflux disease without esophagitis; E11.22 Type 2 diabetes mellitus with diabetic chronic kidney disease; I48.0 Paroxysmal atrial fibrillation; K59.09 Other constipation; E66.9 Obesity, unspecified; Z68.33 Body mass index [BMI] 33.0-33.9, adult; K58.9 Irritable bowel syndrome, unspecified; E78.00 Pure hypercholesterolemia, unspecified; S30.1XXA Contusion of abdominal wall, initial encounter; F03.90 Unspecified dementia, unspecified severity, without behavioral disturbance, psychotic disturbance, mood disturbance, and anxiety; I70.1 Atherosclerosis of renal artery; I25.10 Atherosclerotic heart disease of native coronary artery without angina pectoris; N18.9 Chronic kidney disease, unspecified; I71.4 Abdominal aortic aneurysm, without rupture; Z95.0 Presence of cardiac pacemaker; Z86.718 Personal history of other venous thrombosis and embolism; Z95.5 Presence of coronary angioplasty implant and graft
CPT/HCPCS: 36415; 71045-TC-FY; 74176-TC; 80048; 80053; 80061; 82550; 82962; 83036; 83721; 83735; 83880; 84100; 84443; 84484; 85025; 85610; 85730; 93306-TC; 94660; 94761; 97116-GP; 97161-GP; 99291; J0131; U0003

== ENCOUNTER 2020-12-03 11:43 | Inpatient (IN) | payer OTHER ==
[2020-12-03 13:02] LABS: BASO % 0.4 % (0-2.0); EOS % 1.8 % (0-4.5); HEMATOCRIT 33.1 % (32.4-45.2); HEMOGLOBIN 10.9 GM/dL (10.7-15.3); LYMPH % 27.6 % (8-40); MCH 30.6 pg (25.7-33.7); MCHC 32.9 g/dl (32.0-36.0); MEAN CELL VOLUME 93.1 fl (80-96); MEAN PLT VOLUME 9.2 fl (7.5-11.1); MONO % 9.1 % (3.8-10.2); NEUT % 61.1 % (42.8-82.8); PLATELET COUNT 208 K/MM3 (134-434); RBC 3.55 M/mm3 (3.60-5.2); RDW 14.4 % (11.6-15.6); WHITE BLOOD COUNT 6.7 K/mm3 (4.0-10.0)
[2020-12-03 13:14] LABS: INR 1.29 (0.83-1.09); PROTHROMBIN TIME (PATIENT) 15.7 SEC (9.7-13.0)
[2020-12-03 13:15] LABS: CHLORIDE 101 mmol/L (98-107); POTASSIUM 4.5 mmol/L (3.5-5.1); SODIUM 140 mmol/L (136-145)
[2020-12-03 13:16] LABS: ACTIVATED PTT 25.8 SECONDS (25.2-36.5)
[2020-12-03 13:17] LABS: CALCIUM 9.5 mg/dL (8.5-10.1)
[2020-12-03 13:18] LABS: ALBUMIN 3.7 g/dl (3.4-5.0); ANION GAP 8 MMOL/L (8-16); BLOOD UREA NITROGEN 23.5 mg/dL (7-18); CO2 31 mmol/L (21-32); GLUCOSE,RANDOM 197 mg/dL (74-106)
[2020-12-03 13:21] LABS: CREATININE 1.8 mg/dL (0.55-1.3); SGOT/AST 14 U/L (15-37); SGPT/ALT 18 U/L (13-61)
[2020-12-03 13:22] LABS: BILIRUBIN,TOTAL 0.4 mg/dL (0.2-1)
[2020-12-03 13:24] LABS: ALK PHOS 117 U/L (45-117)
[2020-12-03 13:26] LABS: N-TERMINAL BNP 3403.2 pg/ml (5-450)
[2020-12-03 13:33] LABS: MAGNESIUM 2.2 mg/dL (1.8-2.4)
[2020-12-03] MEDS ORDERED: FUROSEMIDE 40 MG/4 ML INJECTABLE VIAL IVPUSH ONE (13:55)
[2020-12-03] MEDS ORDERED: FUROSEMIDE 40 MG/4 ML INJECTABLE VIAL ONE (14:01)
[2020-12-03 14:45] LABS: EPI CELLS 20 /uL (0-25.1); HYALINE CASTS 1 /uL (0-3.1); URINE APPEARANCE CLEAR; URINE BACTERIA 54 /uL (0-1359); URINE BILIRUBIN NEGATIVE (NEGATIVE); URINE COLOR YELLOW; URINE GLUCOSE (UA) NEGATIVE (NEGATIVE); URINE KETONE NEGATIVE (NEGATIVE); URINE LEUK ESTERASE TRACE (NEGATIVE); URINE NITRITE NEGATIVE (NEGATIVE); URINE PROTEIN NEGATIVE (NEGATIVE); URINE RBC 4 /uL (0-23.9); URINE UROBILINOGEN 0.2 mg/dL (0.2-1.0); URINE WBC 44 /uL (0-25.8)
[2020-12-03] MEDS ORDERED: traMADol HCL 50 MG TABLET PO PRN (15:38)
[2020-12-03] MEDS: INSULIN SLIDING SCALE (NOVOLOG) 1 VIAL SQ SCH (16:10)
[2020-12-04] MEDS: hydrALAZINE HCL 10 MG TABLET PO SCH ×3 (00:02→21:19)
[2020-12-04] MEDS: INSULIN SLIDING SCALE (NOVOLOG) 1 VIAL SQ SCH ×5 (00:02→21:20)
[2020-12-04] MEDS: POLYETHYLENE GLYCOL 3350 119 GM BTL PO SCH ×3 (00:03→21:21)
[2020-12-04] MEDS: PANTOPRAZOLE 40 MG TABLET PO SCH ×3 (00:03→21:19)
[2020-12-04] MEDS: VALSARTAN 80 MG TABLET PO SCH ×3 (00:03→21:18)
[2020-12-04] MEDS: ALPRAZolam 1 MG TABLET PO SCH ×2 (00:04→21:18)
[2020-12-04] MEDS: APIXABAN 5 MG TABLET PO SCH ×3 (04:51→21:19)
[2020-12-04] MEDS: LATANOPROST 0.005% OPHTH SOLN 2.5ML BOTTLE OU SCH ×2 (04:52→21:20)
[2020-12-04] MEDS: TIMOLOL 0.5% OPHTHALMIC SOL 5 ML BOTTLE OU SCH ×3 (04:53→21:20)
[2020-12-04] MEDS: LABETALOL HCL 200 MG TABLET (FP) PO SCH ×3 (05:00→21:18)
[2020-12-04 08:00] LABS: HEMATOCRIT 31.1 % (32.4-45.2); HEMOGLOBIN 10.4 GM/dL (10.7-15.3); MCH 30.7 pg (25.7-33.7); MCHC 33.4 g/dl (32.0-36.0); MEAN CELL VOLUME 91.9 fl (80-96); MEAN PLT VOLUME 8.5 fl (7.5-11.1); PLATELET COUNT 202 K/MM3 (134-434); RBC 3.39 M/mm3 (3.60-5.2); RDW 14.1 % (11.6-15.6); WHITE BLOOD COUNT 5.4 K/mm3 (4.0-10.0)
[2020-12-04 08:27] LABS: POTASSIUM 4.4 mmol/L (3.5-5.1)
[2020-12-04 08:40] LABS: ALBUMIN 3.2 g/dl (3.4-5.0); CALCIUM 9.6 mg/dL (8.5-10.1); MAGNESIUM 2.3 mg/dL (1.8-2.4)
[2020-12-04 08:42] LABS: CREATININE 1.7 mg/dL (0.55-1.3); PHOSPHOROUS 4.3 mg/dL (2.5-4.9)
[2020-12-04 08:44] LABS: BILIRUBIN,TOTAL 0.6 mg/dL (0.2-1); TOT PROT 6.8 g/dl (6.4-8.2)
[2020-12-04] MEDS ORDERED: FUROSEMIDE 40 MG/4 ML INJECTABLE VIAL IVPUSH SCH (10:00)
[2020-12-04] MEDS: ISOSORBIDE MONONITRATE 60 MG TAB.SR.24H (FP) PO SCH (10:56)
[2020-12-04] MEDS: CLOPIDOGREL BISULFATE 75 MG TABLET (FP) PO SCH (10:57)
[2020-12-04] MEDS: HYDROXYCHLOROQUINE SO4 200 MG TABLET (FP) PO SCH (10:57)
[2020-12-04] MEDS: FERROUS SO4 325 MG TABLET (FP) PO SCH (10:58)
[2020-12-04] MEDS: ROSUVASTATIN CA 20 MG TABLET (FP) PO SCH (10:58)
[2020-12-04] MEDS: CHOLECALCIFEROL (VIT D3) 400 UNIT (10 MCG) TABLET PO SCH (10:59)
[2020-12-04] MEDS: FUROSEMIDE 40 MG/4 ML INJECTABLE VIAL IVPUSH SCH (14:10)
[2020-12-05] MEDS: INSULIN SLIDING SCALE (NOVOLOG) 1 VIAL SQ SCH ×4 (06:49→21:12)
[2020-12-05] MEDS: FUROSEMIDE 40 MG/4 ML INJECTABLE VIAL IVPUSH SCH ×2 (06:49→14:16)
[2020-12-05 08:53] LABS: HEMOGLOBIN 9.8 GM/dL (10.7-15.3); MCH 30.1 pg (25.7-33.7); MCHC 32.5 g/dl (32.0-36.0); MEAN CELL VOLUME 92.5 fl (80-96); MEAN PLT VOLUME 8.9 fl (7.5-11.1); PLATELET COUNT 189 K/MM3 (134-434); RBC 3.24 M/mm3 (3.60-5.2); RDW 14.2 % (11.6-15.6); WHITE BLOOD COUNT 5.4 K/mm3 (4.0-10.0)
[2020-12-05 09:13] LABS: POTASSIUM 3.8 mmol/L (3.5-5.1)
[2020-12-05 09:20] LABS: CALCIUM 9.1 mg/dL (8.5-10.1)
[2020-12-05 09:21] LABS: BLOOD UREA NITROGEN 29.7 mg/dL (7-18)
[2020-12-05 09:24] LABS: CREATININE 1.9 mg/dL (0.55-1.3)
[2020-12-05] MEDS: VALSARTAN 80 MG TABLET PO SCH ×2 (09:27→21:12)
[2020-12-05] MEDS: hydrALAZINE HCL 10 MG TABLET PO SCH ×2 (09:27→21:12)
[2020-12-05] MEDS: ISOSORBIDE MONONITRATE 60 MG TAB.SR.24H (FP) PO SCH (09:28)
[2020-12-05] MEDS: LABETALOL HCL 200 MG TABLET (FP) PO SCH ×2 (09:28→21:12)
[2020-12-05] MEDS: FERROUS SO4 325 MG TABLET (FP) PO SCH (09:28)
[2020-12-05] MEDS: APIXABAN 5 MG TABLET PO SCH ×2 (09:28→21:12)
[2020-12-05] MEDS: CLOPIDOGREL BISULFATE 75 MG TABLET (FP) PO SCH (09:28)
[2020-12-05] MEDS: TIMOLOL 0.5% OPHTHALMIC SOL 5 ML BOTTLE OU SCH ×2 (09:29→21:20)
[2020-12-05] MEDS: PANTOPRAZOLE 40 MG TABLET PO SCH ×2 (09:29→21:12)
[2020-12-05] MEDS: ROSUVASTATIN CA 20 MG TABLET (FP) PO SCH (09:50)
[2020-12-05] MEDS: HYDROXYCHLOROQUINE SO4 200 MG TABLET (FP) PO SCH (09:50)
[2020-12-05] MEDS: CHOLECALCIFEROL (VIT D3) 400 UNIT (10 MCG) TABLET PO SCH (09:50)
[2020-12-05] MEDS: POLYETHYLENE GLYCOL 3350 119 GM BTL PO SCH ×2 (09:52→21:13)
[2020-12-05] MEDS: ALPRAZolam 1 MG TABLET PO SCH (21:12)
[2020-12-05] MEDS: LATANOPROST 0.005% OPHTH SOLN 2.5ML BOTTLE OU SCH (21:20)
[2020-12-06] MEDS: INSULIN SLIDING SCALE (NOVOLOG) 1 VIAL SQ SCH ×4 (06:56→22:24)
[2020-12-06] MEDS: FUROSEMIDE 40 MG/4 ML INJECTABLE VIAL IVPUSH SCH ×2 (06:57→14:33)
[2020-12-06 08:28] LABS: HEMATOCRIT 29.4 % (32.4-45.2); HEMOGLOBIN 9.8 GM/dL (10.7-15.3); MCH 30.4 pg (25.7-33.7); MCHC 33.2 g/dl (32.0-36.0); MEAN CELL VOLUME 91.6 fl (80-96); MEAN PLT VOLUME 8.4 fl (7.5-11.1); PLATELET COUNT 206 K/MM3 (134-434); RBC 3.21 M/mm3 (3.60-5.2); RDW 13.9 % (11.6-15.6); WHITE BLOOD COUNT 5.6 K/mm3 (4.0-10.0)
[2020-12-06 08:39] LABS: POTASSIUM 3.7 mmol/L (3.5-5.1)
[2020-12-06 08:45] LABS: BLOOD UREA NITROGEN 32.6 mg/dL (7-18)
[2020-12-06] MEDS: VALSARTAN 80 MG TABLET PO SCH (10:08)
[2020-12-06] MEDS: LABETALOL HCL 200 MG TABLET (FP) PO SCH ×2 (10:08→22:23)
[2020-12-06] MEDS: ISOSORBIDE MONONITRATE 60 MG TAB.SR.24H (FP) PO SCH (10:08)
[2020-12-06] MEDS: CHOLECALCIFEROL (VIT D3) 400 UNIT (10 MCG) TABLET PO SCH (10:09)
[2020-12-06] MEDS: FERROUS SO4 325 MG TABLET (FP) PO SCH (10:09)
[2020-12-06] MEDS: CLOPIDOGREL BISULFATE 75 MG TABLET (FP) PO SCH (10:09)
[2020-12-06] MEDS: ROSUVASTATIN CA 20 MG TABLET (FP) PO SCH (10:09)
[2020-12-06] MEDS: PANTOPRAZOLE 40 MG TABLET PO SCH ×2 (10:09→22:23)
[2020-12-06] MEDS: APIXABAN 5 MG TABLET PO SCH ×2 (10:09→22:24)
[2020-12-06] MEDS: TIMOLOL 0.5% OPHTHALMIC SOL 5 ML BOTTLE OU SCH ×2 (10:11→22:25)
[2020-12-06] MEDS: HYDROXYCHLOROQUINE SO4 200 MG TABLET (FP) PO SCH (10:11)
[2020-12-06] MEDS: hydrALAZINE HCL 10 MG TABLET PO SCH ×2 (10:11→22:24)
[2020-12-06] MEDS: POLYETHYLENE GLYCOL 3350 119 GM BTL PO SCH ×2 (10:19→22:24)
[2020-12-06 15:17] VITALS: BMI 32.1
[2020-12-06] MEDS: ALPRAZolam 1 MG TABLET PO SCH (22:24)
[2020-12-06] MEDS: LATANOPROST 0.005% OPHTH SOLN 2.5ML BOTTLE OU SCH (22:25)
[2020-12-07] MEDS: INSULIN SLIDING SCALE (NOVOLOG) 1 VIAL SQ SCH ×4 (06:26→21:37)
[2020-12-07] MEDS: FUROSEMIDE 40 MG/4 ML INJECTABLE VIAL IVPUSH SCH (06:31)
[2020-12-07] MEDS: hydrALAZINE HCL 10 MG TABLET PO SCH ×2 (10:11→21:52)
[2020-12-07] MEDS: ROSUVASTATIN CA 20 MG TABLET (FP) PO SCH (10:11)
[2020-12-07] MEDS: LABETALOL HCL 200 MG TABLET (FP) PO SCH ×2 (10:11→21:37)
[2020-12-07] MEDS: CLOPIDOGREL BISULFATE 75 MG TABLET (FP) PO SCH (10:11)
[2020-12-07] MEDS: CHOLECALCIFEROL (VIT D3) 400 UNIT (10 MCG) TABLET PO SCH (10:11)
[2020-12-07] MEDS: PANTOPRAZOLE 40 MG TABLET PO SCH ×2 (10:11→21:36)
[2020-12-07] MEDS: TIMOLOL 0.5% OPHTHALMIC SOL 5 ML BOTTLE OU SCH ×2 (10:11→21:37)
[2020-12-07] MEDS: ISOSORBIDE MONONITRATE 60 MG TAB.SR.24H (FP) PO SCH (10:11)
[2020-12-07] MEDS: FERROUS SO4 325 MG TABLET (FP) PO SCH (10:11)
[2020-12-07] MEDS: HYDROXYCHLOROQUINE SO4 200 MG TABLET (FP) PO SCH (10:12)
[2020-12-07] MEDS: POLYETHYLENE GLYCOL 3350 119 GM BTL PO SCH ×2 (10:14→21:37)
[2020-12-07] MEDS: APIXABAN 5 MG TABLET PO SCH ×2 (10:14→21:36)
[2020-12-07 10:38] LABS: HEMATOCRIT 30.7 % (32.4-45.2); HEMOGLOBIN 10.2 GM/dL (10.7-15.3); MCH 30.7 pg (25.7-33.7); MCHC 33.3 g/dl (32.0-36.0); MEAN CELL VOLUME 92.3 fl (80-96); MEAN PLT VOLUME 8.7 fl (7.5-11.1); PLATELET COUNT 217 K/MM3 (134-434); RBC 3.33 M/mm3 (3.60-5.2); RDW 14.3 % (11.6-15.6); WHITE BLOOD COUNT 5.7 K/mm3 (4.0-10.0)
[2020-12-07 10:58] LABS: POTASSIUM 3.8 mmol/L (3.5-5.1)
[2020-12-07 11:00] LABS: ALBUMIN 3.3 g/dl (3.4-5.0); BLOOD UREA NITROGEN 28.5 mg/dL (7-18); CALCIUM 9.1 mg/dL (8.5-10.1)
[2020-12-07 11:03] LABS: CREATININE 1.8 mg/dL (0.55-1.3)
[2020-12-07 11:05] LABS: BILIRUBIN,TOTAL 0.4 mg/dL (0.2-1); TOT PROT 7.1 g/dl (6.4-8.2)
[2020-12-07] MEDS: ALPRAZolam 1 MG TABLET PO SCH (21:36)
[2020-12-07] MEDS: LATANOPROST 0.005% OPHTH SOLN 2.5ML BOTTLE OU SCH (21:37)
[2020-12-08 02:16] VITALS: TEMP 98.2
[2020-12-08] MEDS: INSULIN SLIDING SCALE (NOVOLOG) 1 VIAL SQ SCH ×2 (06:51→11:56)
[2020-12-08 08:37] VITALS: BP 158/59; PULSE 60
[2020-12-08 09:23] LABS: BASO % 0.4 % (0-2.0); EOS % 2.3 % (0-4.5); HEMATOCRIT 30.4 % (32.4-45.2); HEMOGLOBIN 10.2 GM/dL (10.7-15.3); LYMPH % 34.6 % (8-40); MCH 30.8 pg (25.7-33.7); MCHC 33.5 g/dl (32.0-36.0); MEAN PLT VOLUME 8.3 fl (7.5-11.1); MONO % 9.9 % (3.8-10.2); NEUT % 52.8 % (42.8-82.8); PLATELET COUNT 209 K/MM3 (134-434); RDW 14.2 % (11.6-15.6); WHITE BLOOD COUNT 5.3 K/mm3 (4.0-10.0)
[2020-12-08 09:44] LABS: POTASSIUM 3.8 mmol/L (3.5-5.1)
[2020-12-08] MEDS ORDERED: TORSEMIDE 20 MG TABLET (FP) PO SCH (10:00)
[2020-12-08 10:04] LABS: PHOSPHOROUS 3.6 mg/dL (2.5-4.9)
[2020-12-08 10:07] LABS: BLOOD UREA NITROGEN 26.7 mg/dL (7-18); CALCIUM 9.4 mg/dL (8.5-10.1)
[2020-12-08 10:09] LABS: MAGNESIUM 2.4 mg/dL (1.8-2.4)
[2020-12-08 10:10] LABS: CREATININE 1.7 mg/dL (0.55-1.3)
[2020-12-08] MEDS: ISOSORBIDE MONONITRATE 60 MG TAB.SR.24H (FP) PO SCH (10:45)
[2020-12-08] MEDS: ROSUVASTATIN CA 20 MG TABLET (FP) PO SCH (10:45)
[2020-12-08] MEDS: hydrALAZINE HCL 10 MG TABLET PO SCH (10:45)
[2020-12-08] MEDS: APIXABAN 5 MG TABLET PO SCH (10:45)
[2020-12-08] MEDS: CHOLECALCIFEROL (VIT D3) 400 UNIT (10 MCG) TABLET PO SCH (10:46)
[2020-12-08] MEDS: PANTOPRAZOLE 40 MG TABLET PO SCH (10:46)
[2020-12-08] MEDS: LABETALOL HCL 200 MG TABLET (FP) PO SCH (10:46)
[2020-12-08] MEDS: HYDROXYCHLOROQUINE SO4 200 MG TABLET (FP) PO SCH (10:46)
[2020-12-08] MEDS: POLYETHYLENE GLYCOL 3350 119 GM BTL PO SCH (10:46)
[2020-12-08] MEDS: FERROUS SO4 325 MG TABLET (FP) PO SCH (10:46)
[2020-12-08] MEDS: CLOPIDOGREL BISULFATE 75 MG TABLET (FP) PO SCH (10:46)
[2020-12-08] MEDS: TIMOLOL 0.5% OPHTHALMIC SOL 5 ML BOTTLE OU SCH (10:47)
== END 2020-12-08 13:43 | disposition home or self-care (01) | DRG 291 ==
LOC: JER 11:43 → JERBED 15:35 → J6WEST-2 22:40
PROVIDERS: ADMIT Internal Medicine; ATTEND Internal Medicine
PROC: 5A09457 Assistance with Respiratory Ventilation, 24-96 Consecutive Hours, Continuous Positive Airway Pressure (ICD-10-PCS; principal; 2020-12-04)
DX: I13.0 Hypertensive heart and chronic kidney disease with heart failure and stage 1 through stage 4 chronic kidney disease, or unspecified chronic kidney disease (principal); I50.43 Acute on chronic combined systolic (congestive) and diastolic (congestive) heart failure; I69.351 Hemiplegia and hemiparesis following cerebral infarction affecting right dominant side; D68.62 Lupus anticoagulant syndrome; N17.9 Acute kidney failure, unspecified; I31.3 Pericardial effusion (noninflammatory); I48.91 Unspecified atrial fibrillation; Z95.0 Presence of cardiac pacemaker; N18.9 Chronic kidney disease, unspecified; Z86.718 Personal history of other venous thrombosis and embolism; F03.90 Unspecified dementia, unspecified severity, without behavioral disturbance, psychotic disturbance, mood disturbance, and anxiety; Z99.81 Dependence on supplemental oxygen; Z88.0 Allergy status to penicillin; E11.22 Type 2 diabetes mellitus with diabetic chronic kidney disease; E66.9 Obesity, unspecified; N18.30 Chronic kidney disease, stage 3 unspecified; Z79.84 Long term (current) use of oral hypoglycemic drugs
CPT/HCPCS: 36415; 71045-TC-FY; 76775-TC; 80048; 80053; 81003; 82550; 82962; 83735; 83880; 83935; 84100; 84300; 84484; 85025; 85027; 85610; 85730; 87086; 93005; 93010; 93970-TC; 94660; 99285-25; C9803; U0003

== ENCOUNTER 2022-04-02 16:04 | Inpatient (IN) | payer OTHER ==
[2022-04-02 16:34] VITALS: BMI 36.8
[2022-04-02] MEDS ORDERED: ACETAMINOPHEN 500 MG TABLET (FP) PO ONE (17:39)
[2022-04-02] MEDS ORDERED: ACETAMINOPHEN 325 MG TABLET (FP) ONE (17:43)
[2022-04-02 17:53] LABS: VENOUS BASE EXCESS 10.6 mmol/L (-2-2); VENOUS O2 SATURATION 70.4 % (70-80); VENOUS PCO2 56.7 mmHg (38-52); VENOUS PH 7.431 (7.310-7.410)
[2022-04-02 18:03] LABS: BASO % 0.4 % (0-2.0); HEMATOCRIT 34.7 % (32.4-45.2); HEMOGLOBIN 11.8 GM/dL (10.7-15.3); MCH 31.7 pg (25.7-33.7); MEAN CELL VOLUME 93.2 fl (80-96); MONO % 13.9 % (3.8-10.2); NEUT % 56.7 % (42.8-82.8); PLATELET COUNT 252 10^3/uL (134-434); RBC 3.73 M/mm3 (3.60-5.2); RDW 13.9 % (11.6-15.6)
[2022-04-02 18:23] LABS: INR 1.69 (0.83-1.09); PROTHROMBIN TIME (PATIENT) 19.5 SEC (9.7-13.0)
[2022-04-02 18:26] LABS: ACTIVATED PTT 38.5 SECONDS (25.2-36.5)
[2022-04-02 18:27] LABS: CALCIUM 9.4 mg/dL (8.5-10.1)
[2022-04-02 18:28] LABS: ALBUMIN 3.4 g/dl (3.4-5.0); BLOOD UREA NITROGEN 33.1 mg/dL (7-18); MAGNESIUM 2.3 mg/dL (1.8-2.4)
[2022-04-02 18:31] LABS: CREATININE 2.5 mg/dL (0.55-1.3); PHOSPHOROUS 2.9 mg/dL (2.5-4.9)
[2022-04-02 18:32] LABS: BILIRUBIN,TOTAL 0.6 mg/dL (0.2-1)
[2022-04-02 18:36] LABS: N-TERMINAL BNP 1941.5 pg/ml (5-450)
[2022-04-02] MEDS ORDERED: POTASSIUM CHLORIDE TABS 20 MEQ TABLET.ER (FP) PO ONE ×2 (19:30→19:48)
[2022-04-02] MEDS ORDERED: FUROSEMIDE 40 MG/4 ML INJECTABLE VIAL IVPUSH ONE (20:29)
[2022-04-02] MEDS ORDERED: KCL 10 MEQ IVPB 30 MEQ/300 ML INFUS.BAG IVPB ONE (20:39)
[2022-04-02] MEDS ORDERED: SODIUM CHLORIDE 0.9% 500 ML INFUS.BAG IV ONE (21:48)
[2022-04-02] MEDS: KCL 10 MEQ IVPB 10 MEQ/100 ML INFUS.BAG IVPB SCH ×2 (21:59→23:13)
[2022-04-03] MEDS: KCL 10 MEQ IVPB 10 MEQ/100 ML INFUS.BAG IVPB SCH (00:34)
[2022-04-03] MEDS ORDERED: FUROSEMIDE 40 MG/4 ML INJECTABLE VIAL ONE ×2 (01:16→06:22)
[2022-04-03] MEDS ORDERED: ACETAMINOPHEN 1000 MG/100 ML BAG IVPB ONE (01:31)
[2022-04-03] MEDS ORDERED: ACETAMINOPHEN INJECTION 100 ML IVPB ONE (01:58)
[2022-04-03] MEDS ORDERED: APIXABAN 5 MG TABLET ONE ×2 (01:58→09:30)
[2022-04-03] MEDS: APIXABAN 5 MG TABLET PO SCH ×3 (02:04→22:41)
[2022-04-03] MEDS ORDERED: LABETALOL HCL 200 MG TABLET (FP) PO ONE (03:38)
[2022-04-03] MEDS ORDERED: LABETALOL HCL 100 MG TABLET (FP) ONE (04:11)
[2022-04-03] MEDS ORDERED: FUROSEMIDE 100 MG/10 ML INJECTABLE VIAL IVPB SCH (06:00)
[2022-04-03] MEDS: INSULIN (LEVEMIR) 100 UNITS/ML UNITS SQ SCH ×2 (06:55→22:42)
[2022-04-03] MEDS: FUROSEMIDE 40 MG/4 ML INJECTABLE VIAL IVPB SCH ×2 (06:55→14:56)
[2022-04-03 08:09] LABS: BASO % 0.4 % (0-2.0); EOS % 1.2 % (0-4.5); HEMATOCRIT 36.1 % (32.4-45.2); LYMPH % 27.2 % (8-40); MCH 30.9 pg (25.7-33.7); MCHC 33.2 g/dl (32.0-36.0); MEAN CELL VOLUME 93.2 fl (80-96); MEAN PLT VOLUME 7.9 fl (7.5-11.1); NEUT % 62.2 % (42.8-82.8); PLATELET COUNT 251 10^3/uL (134-434); RBC 3.87 M/mm3 (3.60-5.2); RDW 13.6 % (11.6-15.6); WHITE BLOOD COUNT 5.4 K/mm3 (4.0-10.0)
[2022-04-03] MEDS: INSULIN SLIDING SCALE (NOVOLOG) 1 VIAL SQ SCH ×3 (08:30→22:39)
[2022-04-03 08:33] LABS: CALCIUM 9.9 mg/dL (8.5-10.1)
[2022-04-03 08:34] LABS: ALBUMIN 3.7 g/dl (3.4-5.0); BLOOD UREA NITROGEN 35.1 mg/dL (7-18); MAGNESIUM 2.2 mg/dL (1.8-2.4)
[2022-04-03 08:36] LABS: CREATININE 2.4 mg/dL (0.55-1.3); PHOSPHOROUS 3.8 mg/dL (2.5-4.9)
[2022-04-03 08:37] LABS: BILIRUBIN,TOTAL 0.4 mg/dL (0.2-1); TOT PROT 7.7 g/dl (6.4-8.2)
[2022-04-03] MEDS ORDERED: PANTOPRAZOLE 40 MG TABLET PO ONE (09:29)
[2022-04-03] MEDS ORDERED: hydrALAZINE HCL 10 MG TABLET ONE (09:30)
[2022-04-03] MEDS ORDERED: ISOSORBIDE MONONITRATE 30 MG TAB.SR.24H (FP) PO ONE (09:30)
[2022-04-03] MEDS ORDERED: CLOPIDOGREL BISULFATE 75 MG TABLET (FP) ONE (09:30)
[2022-04-03] MEDS: hydrALAZINE HCL 10 MG TABLET PO SCH ×2 (09:43→22:40)
[2022-04-03] MEDS: PANTOPRAZOLE 40 MG TABLET PO SCH ×2 (09:44→22:44)
[2022-04-03] MEDS: ISOSORBIDE MONONITRATE 30 MG TAB.SR.24H (FP) PO SCH ×2 (09:44→22:42)
[2022-04-03] MEDS: CLOPIDOGREL BISULFATE 75 MG TABLET (FP) PO SCH (09:44)
[2022-04-03] MEDS: HYDROXYCHLOROQUINE SO4 200 MG TABLET (FP) PO SCH (09:44)
[2022-04-03] MEDS: LABETALOL HCL 200 MG TABLET (FP) PO SCH ×2 (09:44→22:43)
[2022-04-03] MEDS ORDERED: POTASSIUM CHLORIDE TABS 20 MEQ TABLET.ER (FP) PO ONE (16:46)
[2022-04-03] MEDS: ROSUVASTATIN CA 10 MG TABLET PO SCH (22:41)
[2022-04-04] MEDS: FUROSEMIDE 40 MG/4 ML INJECTABLE VIAL IVPB SCH (06:29)
[2022-04-04] MEDS: INSULIN SLIDING SCALE (NOVOLOG) 1 VIAL SQ SCH ×4 (06:30→21:48)
[2022-04-04] MEDS: INSULIN (LEVEMIR) 100 UNITS/ML UNITS SQ SCH ×2 (06:31→21:48)
[2022-04-04 07:43] LABS: CALCIUM 9.1 mg/dL (8.5-10.1)
[2022-04-04 07:44] LABS: ALBUMIN 3.4 g/dl (3.4-5.0); BLOOD UREA NITROGEN 43.7 mg/dL (7-18); MAGNESIUM 2.3 mg/dL (1.8-2.4)
[2022-04-04 07:47] LABS: CREATININE 2.7 mg/dL (0.55-1.3)
[2022-04-04 07:48] LABS: BILIRUBIN,TOTAL 0.5 mg/dL (0.2-1); TOT PROT 6.9 g/dl (6.4-8.2)
[2022-04-04] MEDS ORDERED: POTASSIUM CHLORIDE TABS 20 MEQ TABLET.ER (FP) PO ONE ×2 (08:21→13:00)
[2022-04-04] MEDS: hydrALAZINE HCL 10 MG TABLET PO SCH ×2 (09:50→21:56)
[2022-04-04] MEDS: CLOPIDOGREL BISULFATE 75 MG TABLET (FP) PO SCH (09:50)
[2022-04-04] MEDS: ISOSORBIDE MONONITRATE 30 MG TAB.SR.24H (FP) PO SCH ×2 (09:50→21:55)
[2022-04-04] MEDS: LABETALOL HCL 200 MG TABLET (FP) PO SCH ×2 (09:50→21:56)
[2022-04-04] MEDS: APIXABAN 5 MG TABLET PO SCH ×2 (09:51→21:54)
[2022-04-04] MEDS: HYDROXYCHLOROQUINE SO4 200 MG TABLET (FP) PO SCH (09:51)
[2022-04-04] MEDS: PANTOPRAZOLE 40 MG TABLET PO SCH ×2 (09:51→21:55)
[2022-04-04] MEDS: ROSUVASTATIN CA 10 MG TABLET PO SCH (21:55)
[2022-04-05] MEDS: INSULIN SLIDING SCALE (NOVOLOG) 1 VIAL SQ SCH ×5 (06:36→21:19)
[2022-04-05] MEDS: INSULIN (LEVEMIR) 100 UNITS/ML UNITS SQ SCH ×2 (06:37→21:16)
[2022-04-05 07:54] LABS: BASO % 0.3 % (0-2.0); EOS % 1.5 % (0-4.5); HEMATOCRIT 32.4 % (32.4-45.2); HEMOGLOBIN 11.1 GM/dL (10.7-15.3); LYMPH % 32.6 % (8-40); MCH 31.9 pg (25.7-33.7); MCHC 34.3 g/dl (32.0-36.0); MEAN CELL VOLUME 92.9 fl (80-96); MEAN PLT VOLUME 7.9 fl (7.5-11.1); MONO % 9.3 % (3.8-10.2); NEUT % 56.3 % (42.8-82.8); PLATELET COUNT 227 10^3/uL (134-434); RBC 3.49 M/mm3 (3.60-5.2); RDW 13.5 % (11.6-15.6)
[2022-04-05 08:11] LABS: CALCIUM 9.2 mg/dL (8.5-10.1)
[2022-04-05 08:12] LABS: BLOOD UREA NITROGEN 47.1 mg/dL (7-18)
[2022-04-05 08:15] LABS: CREATININE 2.7 mg/dL (0.55-1.3)
[2022-04-05] MEDS: LABETALOL HCL 200 MG TABLET (FP) PO SCH ×2 (10:44→21:08)
[2022-04-05] MEDS: hydrALAZINE HCL 10 MG TABLET PO SCH ×2 (10:44→21:07)
[2022-04-05] MEDS: TORSEMIDE 20 MG TABLET (FP) PO SCH (10:45)
[2022-04-05] MEDS: ISOSORBIDE MONONITRATE 30 MG TAB.SR.24H (FP) PO SCH ×2 (10:45→21:07)
[2022-04-05] MEDS: PANTOPRAZOLE 40 MG TABLET PO SCH ×2 (10:45→21:07)
[2022-04-05] MEDS: APIXABAN 5 MG TABLET PO SCH ×2 (10:45→21:08)
[2022-04-05] MEDS: CLOPIDOGREL BISULFATE 75 MG TABLET (FP) PO SCH (10:45)
[2022-04-05] MEDS: HYDROXYCHLOROQUINE SO4 200 MG TABLET (FP) PO SCH (10:49)
[2022-04-05] MEDS ORDERED: MELATONIN 5 MG TABLETS PO ONE (20:34)
[2022-04-05] MEDS: ROSUVASTATIN CA 10 MG TABLET PO SCH (21:10)
[2022-04-06] MEDS: INSULIN (LEVEMIR) 100 UNITS/ML UNITS SQ SCH ×2 (06:39→21:42)
[2022-04-06] MEDS: INSULIN SLIDING SCALE (NOVOLOG) 1 VIAL SQ SCH ×4 (06:39→21:43)
[2022-04-06 07:39] LABS: BASO % 0.3 % (0-2.0); EOS % 1.4 % (0-4.5); HEMATOCRIT 34.2 % (32.4-45.2); HEMOGLOBIN 11.6 GM/dL (10.7-15.3); LYMPH % 31.4 % (8-40); MCH 31.7 pg (25.7-33.7); MCHC 33.8 g/dl (32.0-36.0); MEAN CELL VOLUME 93.7 fl (80-96); MEAN PLT VOLUME 8.4 fl (7.5-11.1); MONO % 7.8 % (3.8-10.2); NEUT % 59.1 % (42.8-82.8); PLATELET COUNT 243 10^3/uL (134-434); RBC 3.65 M/mm3 (3.60-5.2); RDW 13.7 % (11.6-15.6); WHITE BLOOD COUNT 7.2 K/mm3 (4.0-10.0)
[2022-04-06 08:08] LABS: BLOOD UREA NITROGEN 46.9 mg/dL (7-18); CALCIUM 9.3 mg/dL (8.5-10.1); MAGNESIUM 2.1 mg/dL (1.8-2.4)
[2022-04-06 08:12] LABS: CREATININE 2.6 mg/dL (0.55-1.3)
[2022-04-06] MEDS: CLOPIDOGREL BISULFATE 75 MG TABLET (FP) PO SCH (10:19)
[2022-04-06] MEDS: hydrALAZINE HCL 10 MG TABLET PO SCH ×2 (10:19→21:38)
[2022-04-06] MEDS: ISOSORBIDE MONONITRATE 30 MG TAB.SR.24H (FP) PO SCH ×2 (10:20→21:38)
[2022-04-06] MEDS: TORSEMIDE 20 MG TABLET (FP) PO SCH (10:20)
[2022-04-06] MEDS: APIXABAN 5 MG TABLET PO SCH ×2 (10:20→21:38)
[2022-04-06] MEDS: LABETALOL HCL 200 MG TABLET (FP) PO SCH ×2 (10:20→21:38)
[2022-04-06] MEDS: PANTOPRAZOLE 40 MG TABLET PO SCH ×2 (10:20→21:39)
[2022-04-06] MEDS: HYDROXYCHLOROQUINE SO4 200 MG TABLET (FP) PO SCH (10:20)
[2022-04-06] MEDS: POTASSIUM CHLORIDE TABS 20 MEQ TABLET.ER (FP) PO SCH (10:21)
[2022-04-06] MEDS: KCL 10 MEQ IVPB 10 MEQ/100 ML INFUS.BAG IVPB SCH ×3 (11:15→14:49)
[2022-04-06] MEDS: ROSUVASTATIN CA 10 MG TABLET PO SCH (21:38)
[2022-04-07] MEDS: INSULIN (LEVEMIR) 100 UNITS/ML UNITS SQ SCH (06:41)
[2022-04-07] MEDS: INSULIN SLIDING SCALE (NOVOLOG) 1 VIAL SQ SCH ×2 (06:42→12:29)
[2022-04-07 07:29] LABS: BASO % 0.4 % (0-2.0); EOS % 2.3 % (0-4.5); HEMATOCRIT 34.3 % (32.4-45.2); HEMOGLOBIN 11.4 GM/dL (10.7-15.3); LYMPH % 31.5 % (8-40); MCHC 33.3 g/dl (32.0-36.0); MEAN CELL VOLUME 93.3 fl (80-96); MEAN PLT VOLUME 8.4 fl (7.5-11.1); MONO % 9.7 % (3.8-10.2); NEUT % 56.1 % (42.8-82.8); PLATELET COUNT 242 10^3/uL (134-434); RBC 3.67 M/mm3 (3.60-5.2); RDW 13.3 % (11.6-15.6); WHITE BLOOD COUNT 6.5 K/mm3 (4.0-10.0)
[2022-04-07 07:54] LABS: CALCIUM 9.3 mg/dL (8.5-10.1)
[2022-04-07 07:55] LABS: ALBUMIN 3.4 g/dl (3.4-5.0); BLOOD UREA NITROGEN 43.7 mg/dL (7-18)
[2022-04-07 07:58] LABS: CREATININE 2.4 mg/dL (0.55-1.3)
[2022-04-07 07:59] LABS: BILIRUBIN,TOTAL 0.5 mg/dL (0.2-1); TOT PROT 7.1 g/dl (6.4-8.2)
[2022-04-07] MEDS: POTASSIUM CHLORIDE TABS 20 MEQ TABLET.ER (FP) PO SCH (10:39)
[2022-04-07] MEDS: ISOSORBIDE MONONITRATE 30 MG TAB.SR.24H (FP) PO SCH (10:39)
[2022-04-07] MEDS: HYDROXYCHLOROQUINE SO4 200 MG TABLET (FP) PO SCH (10:40)
[2022-04-07] MEDS: APIXABAN 5 MG TABLET PO SCH (10:40)
[2022-04-07] MEDS: TORSEMIDE 20 MG TABLET (FP) PO SCH (10:40)
[2022-04-07] MEDS: hydrALAZINE HCL 10 MG TABLET PO SCH (10:40)
[2022-04-07] MEDS: LABETALOL HCL 200 MG TABLET (FP) PO SCH (10:40)
[2022-04-07] MEDS: PANTOPRAZOLE 40 MG TABLET PO SCH (10:40)
[2022-04-07] MEDS: CLOPIDOGREL BISULFATE 75 MG TABLET (FP) PO SCH (10:41)
[2022-04-07] MEDS ORDERED: POTASSIUM CHLORIDE TABS 20 MEQ TABLET.ER (FP) PO ONE (14:00)
[2022-04-07 14:38] VITALS: BP 149/57; PULSE 69; TEMP 97.6
== END 2022-04-07 18:10 | disposition home or self-care (01) | DRG 291 ==
LOC: JER 16:04 → JERBED 17:53 → J4W 04-03 14:18
PROVIDERS: ADMIT Hospitalist
DX: I13.0 Hypertensive heart and chronic kidney disease with heart failure and stage 1 through stage 4 chronic kidney disease, or unspecified chronic kidney disease (principal); I50.43 Acute on chronic combined systolic (congestive) and diastolic (congestive) heart failure; N18.4 Chronic kidney disease, stage 4 (severe); N17.9 Acute kidney failure, unspecified; G81.91 Hemiplegia, unspecified affecting right dominant side; E11.22 Type 2 diabetes mellitus with diabetic chronic kidney disease; F03.90 Unspecified dementia, unspecified severity, without behavioral disturbance, psychotic disturbance, mood disturbance, and anxiety; E78.5 Hyperlipidemia, unspecified; K21.9 Gastro-esophageal reflux disease without esophagitis; E87.6 Hypokalemia; I25.10 Atherosclerotic heart disease of native coronary artery without angina pectoris; I44.7 Left bundle-branch block, unspecified; L93.0 Discoid lupus erythematosus; I48.91 Unspecified atrial fibrillation; Z86.718 Personal history of other venous thrombosis and embolism; Z95.0 Presence of cardiac pacemaker; Z95.5 Presence of coronary angioplasty implant and graft
CPT/HCPCS: 36415; 71045-TC-FY; 80048; 80053; 82803; 82962; 83735; 83880; 84100; 84484; 85025; 85610; 85730; 93005; 93010; 97116-GP; 97162-GP; 99285-25; C9803-CS; U0003; U0005

== ENCOUNTER 2022-06-02 15:19 | Inpatient (IN) | payer OTHER ==
[2022-06-02 15:38] VITALS: BMI 37.0
[2022-06-02] MEDS ORDERED: NITROGLYCERIN 2% OINTMENT - 1GM PACKET TD ONE ×2 (17:09→17:16)
[2022-06-02 17:53] LABS: BASO % 0.4 % (0-2.0); EOS % 2.2 % (0-4.5); HEMATOCRIT 34.2 % (32.4-45.2); HEMOGLOBIN 11.5 GM/dL (10.7-15.3); LYMPH % 30.4 % (8-40); MCH 31.7 pg (25.7-33.7); MCHC 33.6 g/dl (32.0-36.0); MEAN CELL VOLUME 94.1 fl (80-96); MEAN PLT VOLUME 8.1 fl (7.5-11.1); MONO % 10.1 % (3.8-10.2); NEUT % 56.9 % (42.8-82.8); PLATELET COUNT 225 10^3/uL (134-434); RBC 3.63 M/mm3 (3.60-5.2); RDW 13.6 % (11.6-15.6); WHITE BLOOD COUNT 6.3 K/mm3 (4.0-10.0)
[2022-06-02 18:19] LABS: CALCIUM 8.9 mg/dL (8.5-10.1)
[2022-06-02 18:20] LABS: ALBUMIN 3.4 g/dl (3.4-5.0); BLOOD UREA NITROGEN 26.1 mg/dL (7-18)
[2022-06-02 18:23] LABS: CREATININE 2.7 mg/dL (0.55-1.3)
[2022-06-02 18:24] LABS: BILIRUBIN,TOTAL 0.3 mg/dL (0.2-1)
[2022-06-02 18:25] LABS: TOT PROT 6.8 g/dl (6.4-8.2)
[2022-06-02] MEDS ORDERED: FUROSEMIDE 40 MG/4 ML INJECTABLE VIAL IVPUSH ONE (18:45)
[2022-06-02] MEDS ORDERED: FUROSEMIDE 40 MG/4 ML INJECTABLE VIAL ONE (18:53)
[2022-06-02] MEDS ORDERED: ACETAMINOPHEN 325 MG TABLET (FP) PO PRN (20:02)
[2022-06-02] MEDS ORDERED: PATIENT'S OWN MEDICATION (NON-FORMULARY) (Dulaglutide [Trulicity] 3 MG/0.5 ML Pen.Injctr) SQ SCH (20:15)
[2022-06-02] MEDS ORDERED: ROSUVASTATIN CA 20 MG TABLET ONE (21:52)
[2022-06-02] MEDS: ROSUVASTATIN CA 10 MG TABLET PO SCH ×2 (21:52→22:35)
[2022-06-02] MEDS ORDERED: ALPRAZolam 1 MG TABLET PO SCH (22:00)
[2022-06-02] MEDS ORDERED: INSULIN SLIDING SCALE (NOVOLOG) 1 VIAL SQ SCH (22:00)
[2022-06-02] MEDS ORDERED: [UNRECOGNIZED DRUG - OTHER] NS SCH (22:00)
[2022-06-02] MEDS ORDERED: PATIENT'S OWN MEDICATION (NON-FORMULARY) (Lansoprazole [Prevacid] 30 MG Capsule.Dr) PO SCH (22:00)
[2022-06-02] MEDS ORDERED: APIXABAN 5 MG TABLET ONE (22:36)
[2022-06-02] MEDS ORDERED: ALPRAZolam 1 MG TABLET ONE (22:36)
[2022-06-02] MEDS ORDERED: hydrALAZINE HCL 10 MG TABLET ONE (22:37)
[2022-06-02] MEDS ORDERED: ISOSORBIDE MONONITRATE 30 MG TAB.SR.24H (FP) PO ONE (22:37)
[2022-06-02] MEDS ORDERED: POTASSIUM CHLORIDE TABS 20 MEQ TABLET.ER (FP) PO ONE (22:37)
[2022-06-02] MEDS: INSULIN SLIDING SCALE (NOVOLOG) 1 VIAL SQ SCH (22:49)
[2022-06-02] MEDS: INSULIN (LEVEMIR) 100 UNITS/ML UNITS SQ SCH (22:50)
[2022-06-02] MEDS: ISOSORBIDE MONONITRATE 30 MG TAB.SR.24H (FP) PO SCH (22:53)
[2022-06-02] MEDS: APIXABAN 5 MG TABLET PO SCH (22:53)
[2022-06-02] MEDS: POTASSIUM CHLORIDE TABS 20 MEQ TABLET.ER (FP) PO SCH (22:54)
[2022-06-02] MEDS: hydrALAZINE HCL 10 MG TABLET PO SCH (22:55)
[2022-06-02 23:07] LABS: EPI CELLS 15 /uL (0-25.1); HYALINE CASTS 0 /uL (0-3.1); PH,URINE 7.5 (5.0-8.0); URINE APPEARANCE CLOUDY; URINE BACTERIA >9,000 /uL (0-1359); URINE BILIRUBIN NEGATIVE (NEGATIVE); URINE COLOR YELLOW; URINE GLUCOSE (UA) NEGATIVE (NEGATIVE); URINE KETONE NEGATIVE (NEGATIVE); URINE LEUK ESTERASE 3+ (NEGATIVE); URINE NITRITE NEGATIVE (NEGATIVE); URINE PROTEIN NEGATIVE (NEGATIVE); URINE UROBILINOGEN 0.2 mg/dL (0.2-1.0); URINE WBC 34 /uL (0-25.8)
[2022-06-02] MEDS: LABETALOL HCL 200 MG TABLET (FP) PO SCH (23:32)
[2022-06-02] MEDS: LATANOPROST 0.005% OPHTH SOLN 2.5ML BOTTLE OU SCH (23:32)
[2022-06-03] MEDS ORDERED: CEFTRIAXONE 1,000 MG in DEXTROSE 5%-WATER - 50 ML IVPB ONE (04:47)
[2022-06-03] MEDS: POTASSIUM CHLORIDE TABS 20 MEQ TABLET.ER (FP) PO SCH ×3 (06:34→21:47)
[2022-06-03] MEDS: FUROSEMIDE 40 MG/4 ML INJECTABLE VIAL IVPUSH SCH ×2 (06:34→15:21)
[2022-06-03] MEDS: INSULIN SLIDING SCALE (NOVOLOG) 1 VIAL SQ SCH ×4 (06:39→21:52)
[2022-06-03] MEDS: INSULIN (LEVEMIR) 100 UNITS/ML UNITS SQ SCH ×2 (06:39→21:52)
[2022-06-03 07:33] LABS: HEMATOCRIT 31.2 % (32.4-45.2); HEMOGLOBIN 10.6 GM/dL (10.7-15.3); MCH 31.6 pg (25.7-33.7); MCHC 33.9 g/dl (32.0-36.0); MEAN CELL VOLUME 93.3 fl (80-96); PLATELET COUNT 206 10^3/uL (134-434); RBC 3.35 M/mm3 (3.60-5.2); RDW 13.4 % (11.6-15.6); WHITE BLOOD COUNT 6.2 K/mm3 (4.0-10.0)
[2022-06-03 07:54] LABS: CALCIUM 8.9 mg/dL (8.5-10.1)
[2022-06-03 07:55] LABS: BLOOD UREA NITROGEN 27.5 mg/dL (7-18); MAGNESIUM 2.2 mg/dL (1.8-2.4)
[2022-06-03 07:58] LABS: CREATININE 2.7 mg/dL (0.55-1.3); PHOSPHOROUS 3.9 mg/dL (2.5-4.9)
[2022-06-03 07:59] LABS: BILIRUBIN,TOTAL 0.3 mg/dL (0.2-1); TOT PROT 6.2 g/dl (6.4-8.2)
[2022-06-03] MEDS ORDERED: PATIENT'S OWN MEDICATION (NON-FORMULARY) (Insulin Glargine,Hum.Rec.Anlog [Lantus] 100 UNIT SQ SCH (10:00)
[2022-06-03] MEDS ORDERED: PRUCALOPRIDE SUCCINATE 1 MG PO SCH (10:00)
[2022-06-03] MEDS ORDERED: INSULIN LISPRO 100 UNIT SQ SCH (10:00)
[2022-06-03] MEDS ORDERED: SULFAMETHOXAZOLE/TRIMETHOPRIM 160 MG in DEXTROSE 5%-WATER - 250 ML IVPB SCH (10:00)
[2022-06-03] MEDS ORDERED: TORSEMIDE 20 MG TABLET (FP) PO SCH (10:00)
[2022-06-03] MEDS ORDERED: SULFAMETHOXAZOLE 80 MG/TRIMETHOPRIM 16 MG/ML VIAL IVPB SCH (10:00)
[2022-06-03] MEDS: FAMOTIDINE 20 MG TABLET PO SCH (10:04)
[2022-06-03] MEDS: APIXABAN 5 MG TABLET PO SCH ×2 (10:04→21:46)
[2022-06-03] MEDS: ISOSORBIDE MONONITRATE 30 MG TAB.SR.24H (FP) PO SCH ×2 (10:04→21:46)
[2022-06-03] MEDS: hydrALAZINE HCL 10 MG TABLET PO SCH ×2 (10:04→21:46)
[2022-06-03] MEDS: LABETALOL HCL 200 MG TABLET (FP) PO SCH ×2 (10:04→21:47)
[2022-06-03] MEDS: CLOPIDOGREL BISULFATE 75 MG TABLET (FP) PO SCH (10:04)
[2022-06-03] MEDS: HYDROXYCHLOROQUINE SO4 200 MG TABLET (FP) PO SCH (11:24)
[2022-06-03] MEDS: ROSUVASTATIN CA 10 MG TABLET PO SCH (21:46)
[2022-06-03] MEDS ORDERED: POTASSIUM CHLORIDE 10 MEQ PO SCH (22:00)
[2022-06-03] MEDS: LATANOPROST 0.005% OPHTH SOLN 2.5ML BOTTLE OU SCH (22:12)
[2022-06-03] MEDS ORDERED: MELATONIN 5 MG TABLETS PO PRN (22:22)
[2022-06-03] MEDS: BRIMONIDINE TARTRATE 0.2% OPHTHALMIC 5 ML BOTTLE OU SCH (23:01)
[2022-06-04] MEDS: FUROSEMIDE 40 MG/4 ML INJECTABLE VIAL IVPUSH SCH (06:25)
[2022-06-04] MEDS: POTASSIUM CHLORIDE TABS 20 MEQ TABLET.ER (FP) PO SCH ×2 (06:25→13:23)
[2022-06-04] MEDS: INSULIN (LEVEMIR) 100 UNITS/ML UNITS SQ SCH (06:27)
[2022-06-04] MEDS: INSULIN SLIDING SCALE (NOVOLOG) 1 VIAL SQ SCH ×3 (06:28→17:01)
[2022-06-04 07:29] LABS: HEMATOCRIT 31.7 % (32.4-45.2); HEMOGLOBIN 10.9 GM/dL (10.7-15.3); MCH 31.8 pg (25.7-33.7); MCHC 34.3 g/dl (32.0-36.0); MEAN CELL VOLUME 92.5 fl (80-96); MEAN PLT VOLUME 8.3 fl (7.5-11.1); PLATELET COUNT 207 10^3/uL (134-434); RBC 3.43 M/mm3 (3.60-5.2); RDW 13.2 % (11.6-15.6); WHITE BLOOD COUNT 5.3 K/mm3 (4.0-10.0)
[2022-06-04 07:57] LABS: CALCIUM 9.1 mg/dL (8.5-10.1)
[2022-06-04 07:58] LABS: BLOOD UREA NITROGEN 28.6 mg/dL (7-18); MAGNESIUM 2.2 mg/dL (1.8-2.4)
[2022-06-04 08:01] LABS: CREATININE 2.5 mg/dL (0.55-1.3); PHOSPHOROUS 4.3 mg/dL (2.5-4.9)
[2022-06-04] MEDS: hydrALAZINE HCL 10 MG TABLET PO SCH (09:08)
[2022-06-04] MEDS: ISOSORBIDE MONONITRATE 30 MG TAB.SR.24H (FP) PO SCH (09:08)
[2022-06-04] MEDS: FAMOTIDINE 20 MG TABLET PO SCH (09:08)
[2022-06-04] MEDS: CLOPIDOGREL BISULFATE 75 MG TABLET (FP) PO SCH (09:08)
[2022-06-04] MEDS: LABETALOL HCL 200 MG TABLET (FP) PO SCH (09:08)
[2022-06-04] MEDS: APIXABAN 5 MG TABLET PO SCH (09:09)
[2022-06-04] MEDS: HYDROXYCHLOROQUINE SO4 200 MG TABLET (FP) PO SCH (09:09)
[2022-06-04] MEDS: BRIMONIDINE TARTRATE 0.2% OPHTHALMIC 5 ML BOTTLE OU SCH (09:28)
[2022-06-04] MEDS ORDERED: PRUCALOPRIDE SUCCINATE 1 MG PO SCH (10:00)
[2022-06-04] MEDS ORDERED: PATIENT'S OWN MEDICATION (NON-FORMULARY) (Linaclotide [Linzess] 145 MCG Capsule) PO SCH (10:00)
[2022-06-04 10:05] VITALS: PULSE 60
[2022-06-04 14:42] VITALS: BP 138/63; RESP 16; TEMP 98
[2022-06-04] MEDS ORDERED: POTASSIUM CHLORIDE TABS 20 MEQ TABLET.ER (FP) PO ONE (15:30)
[2022-06-05] MEDS ORDERED: PATIENT'S OWN MEDICATION (NON-FORMULARY) (Linaclotide [Linzess] 145 MCG Capsule) PO SCH (10:00)
[2022-06-05] MEDS ORDERED: TORSEMIDE 20 MG TABLET (FP) PO SCH (10:00)
== END 2022-06-04 18:47 | disposition home or self-care (01) | DRG 291 ==
LOC: JER 15:19 → JERBED 19:20 → J4W 06-03 01:02
PROVIDERS: ADMIT Hospitalist; ATTEND Internal Medicine
DX: I13.0 Hypertensive heart and chronic kidney disease with heart failure and stage 1 through stage 4 chronic kidney disease, or unspecified chronic kidney disease (principal); I50.43 Acute on chronic combined systolic (congestive) and diastolic (congestive) heart failure; J96.21 Acute and chronic respiratory failure with hypoxia; I69.351 Hemiplegia and hemiparesis following cerebral infarction affecting right dominant side; D68.62 Lupus anticoagulant syndrome; F03.90 Unspecified dementia, unspecified severity, without behavioral disturbance, psychotic disturbance, mood disturbance, and anxiety; E87.6 Hypokalemia; N18.30 Chronic kidney disease, stage 3 unspecified; E11.22 Type 2 diabetes mellitus with diabetic chronic kidney disease; K21.9 Gastro-esophageal reflux disease without esophagitis
CPT/HCPCS: 36415; 71045-TC-FY; 80048; 80053; 81003; 82962; 83735; 83880; 84100; 84484; 85025; 85027; 93005; 93010; 94660; 97116-GP; 97161-GP; 99285-25; C9803-CS; U0003; U0005

== ENCOUNTER 2022-09-15 10:25 | Emergency (ER) | payer OTHER ==
[2022-09-15 10:37] VITALS: BMI 31.2
[2022-09-15 10:39] VITALS: TEMP 97.7
[2022-09-15] MEDS ORDERED: ACETAMINOPHEN 325 MG TABLET (FP) PO ONE (10:56)
[2022-09-15] MEDS ORDERED: FAMOTIDINE 20 MG/50 ML IVPB 20 MG/50 ML MG IVPB ONE ×2 (11:00→11:42)
[2022-09-15] MEDS ORDERED: METOCLOPRAMIDE HCL INJECTION 10 MG/2 ML VIAL IVPB ONE (11:00)
[2022-09-15] MEDS ORDERED: ACETAMINOPHEN 1000 MG/100 ML BAG IVPB ONE (11:00)
[2022-09-15] MEDS ORDERED: MAG HYDROX/AL HYDROX/SIMETH -MYLANTA- ORAL SUSPENSION PO ONE (11:00)
[2022-09-15] MEDS ORDERED: ACETAMINOPHEN INJECTION 100 ML IVPB ONE (11:42)
[2022-09-15] MEDS ORDERED: MAG HYDROX/AL HYDROX/SIMETH 30 ML UNIT-DOSE CUP ONE (11:42)
[2022-09-15] MEDS ORDERED: METOCLOPRAMIDE HCL INJECTION 10 MG/2 ML VIAL ONE (11:42)
[2022-09-15 12:27] LABS: BASO % 0.4 % (0-2.0); EOS % 2.5 % (0-4.5); HEMATOCRIT 35.7 % (32.4-45.2); MCH 31.1 pg (25.7-33.7); MCHC 33.5 g/dl (32.0-36.0); MEAN CELL VOLUME 92.8 fl (80-96); MONO % 10.9 % (3.8-10.2); NEUT % 51.2 % (42.8-82.8); PLATELET COUNT 265 10^3/uL (134-434); RBC 3.85 M/mm3 (3.60-5.2); RDW 12.7 % (11.6-15.6); WHITE BLOOD COUNT 6.5 K/mm3 (4.0-10.0)
[2022-09-15 12:33] LABS: INR 1.86 (0.83-1.09); PROTHROMBIN TIME (PATIENT) 21.5 SEC (9.7-13.0)
[2022-09-15 12:36] LABS: ACTIVATED PTT 38.1 SECONDS (25.2-36.5)
[2022-09-15 12:59] LABS: CALCIUM 9.4 mg/dL (8.5-10.1)
[2022-09-15 13:00] LABS: ALBUMIN 3.6 g/dl (3.4-5.0); BLOOD UREA NITROGEN 31.9 mg/dL (7-18); MAGNESIUM 1.8 mg/dL (1.8-2.4)
[2022-09-15 13:01] VITALS: BP 148/57; PULSE 65; RESP 18
[2022-09-15 13:03] LABS: CREATININE 2.7 mg/dL (0.55-1.3)
[2022-09-15 13:04] LABS: BILIRUBIN,TOTAL 0.4 mg/dL (0.2-1); TOT PROT 7.6 g/dl (6.4-8.2)
[2022-09-15 13:08] LABS: N-TERMINAL BNP 971.3 pg/ml (5-450)
== END 2022-09-15 16:30 | disposition home or self-care (01) ==
LOC: JER 10:25
PROC: 3E033GC Introduction of Other Therapeutic Substance into Peripheral Vein, Percutaneous Approach (ICD-10-PCS; principal; 2022-09-15)
DX: M25.552 Pain in left hip (principal)
CPT/HCPCS: 0241U-QW; 36415; 71045-TC-FY; 72170-TC-FY; 73502-TC-LT-FY; 74176-TC; 80053; 83605; 83690; 83735; 83880; 84484; 85025; 85610; 85730; 93005; 93010; 93971-TC; 96365; 96375; 99285-25

== ENCOUNTER 2023-02-03 09:58 | Emergency (ER) | payer OTHER ==
[2023-02-03 10:18] VITALS: BMI 39.0
[2023-02-03] MEDS ORDERED: ACETAMINOPHEN 1000 MG/100 ML BAG IVPB ONE (10:33)
[2023-02-03 11:16] LABS: BASO % 0.3 % (0-2.0); EOS % 2.5 % (0-4.5); HEMATOCRIT 29.9 % (32.4-45.2); HEMOGLOBIN 10.1 GM/dL (10.7-15.3); LYMPH % 35.1 % (8-40); MCH 31.5 pg (25.7-33.7); MCHC 33.7 g/dl (32.0-36.0); MEAN CELL VOLUME 93.7 fl (80-96); MEAN PLT VOLUME 7.8 fl (7.5-11.1); MONO % 10.6 % (3.8-10.2); NEUT % 51.5 % (42.8-82.8); PLATELET COUNT 194 10^3/uL (134-434); RBC 3.19 M/mm3 (3.60-5.2); RDW 13.5 % (11.6-15.6); WHITE BLOOD COUNT 4.6 K/mm3 (4.0-10.0)
[2023-02-03 11:29] LABS: INR 1.71 (0.83-1.09); PROTHROMBIN TIME (PATIENT) 19.7 SEC (9.7-13.0)
[2023-02-03 11:31] LABS: ACTIVATED PTT 39.7 SECONDS (25.2-36.5)
[2023-02-03 11:54] LABS: ALBUMIN 3.4 g/dl (3.4-5.0); BLOOD UREA NITROGEN 45.9 mg/dL (7-18)
[2023-02-03 11:57] LABS: CREATININE 3.2 mg/dL (0.55-1.3)
[2023-02-03 11:58] LABS: BILIRUBIN,TOTAL 0.4 mg/dL (0.2-1); TOT PROT 6.9 g/dl (6.4-8.2)
[2023-02-03 12:01] LABS: N-TERMINAL BNP 1086.7 pg/ml (5-450)
[2023-02-03] MEDS ORDERED: ACETAMINOPHEN INJECTION 100 ML IVPB ONE (14:40)
[2023-02-03 15:18] VITALS: RESP 18
[2023-02-03 17:01] VITALS: BP 146/48; PULSE 69; TEMP 98.4
== END 2023-02-03 17:21 | disposition home or self-care (01) ==
LOC: JER 09:58
PROC: 3E033NZ Introduction of Analgesics, Hypnotics, Sedatives into Peripheral Vein, Percutaneous Approach (ICD-10-PCS; principal; 2023-02-03)
DX: M54.32 Sciatica, left side (principal); Z86.718 Personal history of other venous thrombosis and embolism; Z20.822 Contact with and (suspected) exposure to COVID-19
CPT/HCPCS: 0241U-QW; 36415; 72131-TC; 72192-TC; 73552-TC-LT-FY; 80053; 83880; 84484; 85025; 85610; 85730; 86850; 86900; 86901; 93005; 93010; 93970-TC; 99285-25

== ENCOUNTER 2023-03-06 08:15 | Inpatient (IN) | payer OTHER ==
[2023-03-06 08:45] VITALS: BMI 39.0
[2023-03-06 10:07] LABS: BASO % 0.4 % (0-2.0); EOS % 0.3 % (0-4.5); HEMATOCRIT 30.5 % (32.4-45.2); HEMOGLOBIN 10.6 GM/dL (10.7-15.3); LYMPH % 14.2 % (8-40); MCH 32.1 pg (25.7-33.7); MCHC 34.9 g/dl (32.0-36.0); MEAN CELL VOLUME 91.8 fl (80-96); MEAN PLT VOLUME 8.9 fl (7.5-11.1); MONO % 10.1 % (3.8-10.2); PLATELET COUNT 202 10^3/uL (134-434); RBC 3.32 M/mm3 (3.60-5.2); RDW 13.4 % (11.6-15.6); WHITE BLOOD COUNT 9.8 K/mm3 (4.0-10.0)
[2023-03-06 10:13] LABS: INR 1.62 (0.83-1.09); PROTHROMBIN TIME (PATIENT) 18.7 SEC (9.7-13.0)
[2023-03-06 10:16] LABS: ACTIVATED PTT 24.9 SECONDS (25.2-36.5)
[2023-03-06] MEDS ORDERED: ACETAMINOPHEN 1000 MG/100 ML BAG IVPB ONE (10:36)
[2023-03-06 10:39] LABS: POTASSIUM 4.3 mmol/L (3.5-5.1)
[2023-03-06] MEDS ORDERED: ACETAMINOPHEN INJECTION 100 ML IVPB ONE (10:39)
[2023-03-06 10:41] LABS: CALCIUM 9.1 mg/dL (8.5-10.1)
[2023-03-06 10:42] LABS: ALBUMIN 3.3 g/dl (3.4-5.0); MAGNESIUM 2.1 mg/dL (1.8-2.4)
[2023-03-06 10:45] LABS: CREATININE 3.1 mg/dL (0.55-1.3); PHOSPHOROUS 3.3 mg/dL (2.5-4.9)
[2023-03-06 10:46] LABS: BILIRUBIN,TOTAL 0.6 mg/dL (0.2-1)
[2023-03-06 10:47] LABS: TOT PROT 7.2 g/dl (6.4-8.2)
[2023-03-06 10:47] LABS: EPI CELLS 6 /uL (0-25.1); HYALINE CASTS 0 /uL (0-3.1); URINE APPEARANCE CLEAR; URINE BACTERIA >9,000 /uL (0-1359); URINE BILIRUBIN NEGATIVE (NEGATIVE); URINE COLOR YELLOW; URINE GLUCOSE (UA) NEGATIVE (NEGATIVE); URINE KETONE NEGATIVE (NEGATIVE); URINE LEUK ESTERASE TRACE (NEGATIVE); URINE NITRITE POSITIVE (NEGATIVE); URINE PROTEIN NEGATIVE (NEGATIVE); URINE RBC 11 /uL (0-23.9); URINE UROBILINOGEN 0.2 mg/dL (0.2-1.0); URINE WBC 13 /uL (0-25.8)
[2023-03-06] MEDS ORDERED: CEFTRIAXONE 1 GM in DEXTROSE 5%-WATER - 100 ML IVPB ONE (10:53)
[2023-03-06] MEDS ORDERED: CEFTRIAXONE 1 GM/50 ML BAG ONE (11:54)
[2023-03-06] MEDS ORDERED: AZTREONAM 1 GM VIAL (RESTRICTED TO ID) ONE (12:59)
[2023-03-06] MEDS ORDERED: AZTREONAM 1 GM in DEXTROSE 5%-WATER - 50 ML IVPB SCH (13:00)
[2023-03-06] MEDS ORDERED: FUROSEMIDE 40 MG/4 ML INJECTABLE VIAL ONE (13:01)
[2023-03-06] MEDS: FUROSEMIDE 40 MG/4 ML INJECTABLE VIAL IVPUSH SCH (13:37)
[2023-03-06] MEDS ORDERED: FUROSEMIDE 40 MG/4 ML INJECTABLE VIAL IVPUSH SCH (14:00)
[2023-03-06 14:35] LABS: N-TERMINAL BNP 1108.3 pg/ml (5-450)
[2023-03-06] MEDS: INSULIN SLIDING SCALE (NOVOLOG) 1 VIAL SQ SCH (16:49)
[2023-03-06] MEDS: APIXABAN 5 MG TABLET PO SCH (21:32)
[2023-03-06] MEDS: ALPRAZolam 1 MG TABLET PO SCH (21:32)
[2023-03-06] MEDS: POTASSIUM CHLORIDE TABS 20 MEQ TABLET.ER (FP) PO SCH (21:32)
[2023-03-06] MEDS: PANTOPRAZOLE 40 MG TABLET PO SCH (21:32)
[2023-03-06] MEDS: LABETALOL HCL 200 MG TABLET (FP) PO SCH (21:32)
[2023-03-06] MEDS: BRIMONIDINE TARTRATE 0.2% OPHTHALMIC 5 ML BOTTLE OU SCH (21:44)
[2023-03-06] MEDS: LATANOPROST 0.005% OPHTH SOLN 2.5ML BOTTLE OU SCH (21:45)
[2023-03-07] MEDS: AZTREONAM 1 GM in DEXTROSE 5%-WATER - 50 ML IVPB SCH ×2 (01:50→14:28)
[2023-03-07] MEDS: PATIENT'S OWN MEDICATION (NON-FORMULARY) (Linaclotide [Linzess] 290 MCG Capsule) PO SCH (06:31)
[2023-03-07] MEDS: FUROSEMIDE 40 MG/4 ML INJECTABLE VIAL IVPUSH SCH ×2 (06:31→14:29)
[2023-03-07] MEDS: INSULIN SLIDING SCALE (NOVOLOG) 1 VIAL SQ SCH ×3 (06:32→16:50)
[2023-03-07] MEDS: POTASSIUM CHLORIDE TABS 20 MEQ TABLET.ER (FP) PO SCH ×2 (09:28→21:53)
[2023-03-07] MEDS: ROSUVASTATIN CA 20 MG TABLET PO SCH (09:28)
[2023-03-07] MEDS: APIXABAN 5 MG TABLET PO SCH ×2 (09:28→21:53)
[2023-03-07] MEDS: LABETALOL HCL 200 MG TABLET (FP) PO SCH ×2 (09:29→21:53)
[2023-03-07] MEDS: ISOSORBIDE MONONITRATE 60 MG TAB.SR.24H (FP) PO SCH (09:29)
[2023-03-07] MEDS: CLOPIDOGREL BISULFATE 75 MG TABLET (FP) PO SCH (09:29)
[2023-03-07] MEDS: PANTOPRAZOLE 40 MG TABLET PO SCH ×2 (09:29→21:53)
[2023-03-07] MEDS: HYDROXYCHLOROQUINE SO4 200 MG TABLET (FP) PO SCH (09:29)
[2023-03-07] MEDS: PRUCALOPRIDE SUCCINATE 1 MG PO SCH (09:30)
[2023-03-07] MEDS: BRIMONIDINE TARTRATE 0.2% OPHTHALMIC 5 ML BOTTLE OU SCH ×2 (09:31→21:52)
[2023-03-07] MEDS ORDERED: TORSEMIDE 20 MG TABLET (FP) PO SCH (10:00)
[2023-03-07 11:14] LABS: BASO % 0.3 % (0-2.0); EOS % 1.6 % (0-4.5); HEMATOCRIT 28.9 % (32.4-45.2); HEMOGLOBIN 9.9 GM/dL (10.7-15.3); LYMPH % 14.8 % (8-40); MCH 31.8 pg (25.7-33.7); MCHC 34.1 g/dl (32.0-36.0); MEAN CELL VOLUME 93.2 fl (80-96); MEAN PLT VOLUME 8.2 fl (7.5-11.1); MONO % 10.4 % (3.8-10.2); NEUT % 72.9 % (42.8-82.8); PLATELET COUNT 194 10^3/uL (134-434); RDW 13.4 % (11.6-15.6); WHITE BLOOD COUNT 7.5 K/mm3 (4.0-10.0)
[2023-03-07 11:43] LABS: POTASSIUM 3.1 mmol/L (3.5-5.1)
[2023-03-07 11:51] LABS: CALCIUM 9.3 mg/dL (8.5-10.1)
[2023-03-07 11:52] LABS: BLOOD UREA NITROGEN 44.4 mg/dL (7-18)
[2023-03-07 11:55] LABS: CREATININE 3.1 mg/dL (0.55-1.3)
[2023-03-07] MEDS: LATANOPROST 0.005% OPHTH SOLN 2.5ML BOTTLE OU SCH (21:52)
[2023-03-07] MEDS: ALPRAZolam 1 MG TABLET PO SCH (21:53)
[2023-03-08] MEDS: AZTREONAM 1 GM in DEXTROSE 5%-WATER - 50 ML IVPB SCH ×2 (01:45→14:25)
[2023-03-08] MEDS: FUROSEMIDE 40 MG/4 ML INJECTABLE VIAL IVPUSH SCH ×2 (05:58→14:25)
[2023-03-08] MEDS: PATIENT'S OWN MEDICATION (NON-FORMULARY) (Linaclotide [Linzess] 290 MCG Capsule) PO SCH (06:06)
[2023-03-08] MEDS: INSULIN SLIDING SCALE (NOVOLOG) 1 VIAL SQ SCH ×3 (06:06→16:47)
[2023-03-08] MEDS: POTASSIUM CHLORIDE TABS 20 MEQ TABLET.ER (FP) PO SCH ×2 (10:04→21:04)
[2023-03-08] MEDS: LABETALOL HCL 200 MG TABLET (FP) PO SCH ×2 (10:04→21:05)
[2023-03-08] MEDS: APIXABAN 5 MG TABLET PO SCH ×2 (10:04→21:06)
[2023-03-08] MEDS: PANTOPRAZOLE 40 MG TABLET PO SCH ×2 (10:04→21:04)
[2023-03-08] MEDS: ROSUVASTATIN CA 20 MG TABLET PO SCH (10:04)
[2023-03-08] MEDS: CLOPIDOGREL BISULFATE 75 MG TABLET (FP) PO SCH (10:04)
[2023-03-08] MEDS: ISOSORBIDE MONONITRATE 60 MG TAB.SR.24H (FP) PO SCH (10:04)
[2023-03-08] MEDS: PRUCALOPRIDE SUCCINATE 1 MG PO SCH (10:05)
[2023-03-08] MEDS: HYDROXYCHLOROQUINE SO4 200 MG TABLET (FP) PO SCH (10:06)
[2023-03-08] MEDS: BRIMONIDINE TARTRATE 0.2% OPHTHALMIC 5 ML BOTTLE OU SCH ×2 (10:07→21:05)
[2023-03-08 11:25] LABS: BASO % 0.3 % (0-2.0); EOS % 2.7 % (0-4.5); HEMATOCRIT 28.4 % (32.4-45.2); HEMOGLOBIN 9.6 GM/dL (10.7-15.3); LYMPH % 17.5 % (8-40); MCH 31.6 pg (25.7-33.7); MEAN CELL VOLUME 92.9 fl (80-96); MEAN PLT VOLUME 8.3 fl (7.5-11.1); MONO % 10.6 % (3.8-10.2); NEUT % 68.9 % (42.8-82.8); PLATELET COUNT 200 10^3/uL (134-434); RBC 3.06 M/mm3 (3.60-5.2); WHITE BLOOD COUNT 7.8 K/mm3 (4.0-10.0)
[2023-03-08 11:31] LABS: INR 2.06 (0.83-1.09); PROTHROMBIN TIME (PATIENT) 23.7 SEC (9.7-13.0)
[2023-03-08 11:32] LABS: ACTIVATED PTT 33.5 SECONDS (25.2-36.5)
[2023-03-08 11:55] LABS: POTASSIUM 3.1 mmol/L (3.5-5.1)
[2023-03-08 12:03] LABS: CALCIUM 9.4 mg/dL (8.5-10.1)
[2023-03-08 12:05] LABS: ALBUMIN 2.9 g/dl (3.4-5.0); MAGNESIUM 2.1 mg/dL (1.8-2.4)
[2023-03-08 12:08] LABS: CREATININE 3.2 mg/dL (0.55-1.3); PHOSPHOROUS 3.4 mg/dL (2.5-4.9)
[2023-03-08 12:09] LABS: BILIRUBIN,TOTAL 0.6 mg/dL (0.2-1); TOT PROT 6.7 g/dl (6.4-8.2)
[2023-03-08] MEDS: ALPRAZolam 1 MG TABLET PO SCH (21:05)
[2023-03-08] MEDS: LATANOPROST 0.005% OPHTH SOLN 2.5ML BOTTLE OU SCH (21:06)
[2023-03-09] MEDS: AZTREONAM 1 GM in DEXTROSE 5%-WATER - 50 ML IVPB SCH ×2 (01:57→13:18)
[2023-03-09] MEDS: FUROSEMIDE 40 MG/4 ML INJECTABLE VIAL IVPUSH SCH ×2 (05:45→13:18)
[2023-03-09] MEDS: INSULIN SLIDING SCALE (NOVOLOG) 1 VIAL SQ SCH ×3 (06:02→16:30)
[2023-03-09] MEDS: PATIENT'S OWN MEDICATION (NON-FORMULARY) (Linaclotide [Linzess] 290 MCG Capsule) PO SCH (06:03)
[2023-03-09] MEDS: ROSUVASTATIN CA 20 MG TABLET PO SCH (09:50)
[2023-03-09] MEDS: APIXABAN 5 MG TABLET PO SCH ×2 (09:50→21:42)
[2023-03-09] MEDS: ISOSORBIDE MONONITRATE 60 MG TAB.SR.24H (FP) PO SCH (09:50)
[2023-03-09] MEDS: POTASSIUM CHLORIDE TABS 20 MEQ TABLET.ER (FP) PO SCH ×2 (09:50→21:42)
[2023-03-09] MEDS: CLOPIDOGREL BISULFATE 75 MG TABLET (FP) PO SCH (09:50)
[2023-03-09] MEDS: PANTOPRAZOLE 40 MG TABLET PO SCH ×2 (09:51→21:42)
[2023-03-09] MEDS: PRUCALOPRIDE SUCCINATE 1 MG PO SCH (09:51)
[2023-03-09] MEDS: LABETALOL HCL 200 MG TABLET (FP) PO SCH ×2 (09:51→21:42)
[2023-03-09] MEDS: HYDROXYCHLOROQUINE SO4 200 MG TABLET (FP) PO SCH (09:51)
[2023-03-09] MEDS: BRIMONIDINE TARTRATE 0.2% OPHTHALMIC 5 ML BOTTLE OU SCH ×2 (09:52→21:41)
[2023-03-09] MEDS: LATANOPROST 0.005% OPHTH SOLN 2.5ML BOTTLE OU SCH (21:41)
[2023-03-09] MEDS: ALPRAZolam 1 MG TABLET PO SCH (21:42)
[2023-03-09] MEDS: POLYETHYLENE GLYCOL (HEALTHYLAX) 3350 17 GM PACKET PO SCH (21:43)
[2023-03-09] MEDS ORDERED: SENNOSIDES 8.8 MG/5 ML SYRUP PO SCH (22:00)
[2023-03-10] MEDS ORDERED: AZTREONAM 1 GM VIAL (RESTRICTED TO ID) ONE (01:00)
[2023-03-10] MEDS: AZTREONAM 1 GM in DEXTROSE 5%-WATER - 50 ML IVPB SCH ×2 (01:54→14:38)
[2023-03-10] MEDS: ACETAMINOPHEN 325 MG TABLET (FP) PO PRN ×2 (02:10→09:22)
[2023-03-10] MEDS: INSULIN SLIDING SCALE (NOVOLOG) 1 VIAL SQ SCH ×3 (06:21→16:24)
[2023-03-10] MEDS: FUROSEMIDE 40 MG/4 ML INJECTABLE VIAL IVPUSH SCH ×2 (06:21→14:37)
[2023-03-10] MEDS: PATIENT'S OWN MEDICATION (NON-FORMULARY) (Linaclotide [Linzess] 290 MCG Capsule) PO SCH (06:35)
[2023-03-10] MEDS ORDERED: oxyCODONE HCL 5 MG TABLET PO PRN (09:26)
[2023-03-10] MEDS: PANTOPRAZOLE 40 MG TABLET PO SCH ×2 (09:56→21:57)
[2023-03-10] MEDS: POTASSIUM CHLORIDE TABS 20 MEQ TABLET.ER (FP) PO SCH ×2 (09:56→21:58)
[2023-03-10] MEDS: LABETALOL HCL 200 MG TABLET (FP) PO SCH ×2 (09:56→21:56)
[2023-03-10] MEDS: HYDROXYCHLOROQUINE SO4 200 MG TABLET (FP) PO SCH (09:57)
[2023-03-10] MEDS: APIXABAN 5 MG TABLET PO SCH ×2 (09:57→21:57)
[2023-03-10] MEDS: CLOPIDOGREL BISULFATE 75 MG TABLET (FP) PO SCH (09:57)
[2023-03-10] MEDS: ROSUVASTATIN CA 20 MG TABLET PO SCH (09:57)
[2023-03-10] MEDS: POLYETHYLENE GLYCOL (HEALTHYLAX) 3350 17 GM PACKET PO SCH ×2 (09:57→21:56)
[2023-03-10] MEDS: ISOSORBIDE MONONITRATE 60 MG TAB.SR.24H (FP) PO SCH (09:57)
[2023-03-10] MEDS: BRIMONIDINE TARTRATE 0.2% OPHTHALMIC 5 ML BOTTLE OU SCH ×2 (09:58→21:58)
[2023-03-10] MEDS: PRUCALOPRIDE SUCCINATE 1 MG PO SCH (10:00)
[2023-03-10] MEDS: oxyCODONE HCL 5 MG TABLET PO PRN (14:35)
[2023-03-10] MEDS ORDERED: MINERAL OIL ENEMA 133 ML ENEMA RC ONE (16:54)
[2023-03-10 18:16] LABS: POTASSIUM 3.4 mmol/L (3.5-5.1)
[2023-03-10 18:18] LABS: CALCIUM 9.4 mg/dL (8.5-10.1)
[2023-03-10 18:19] LABS: ALBUMIN 2.6 g/dl (3.4-5.0); BLOOD UREA NITROGEN 65.2 mg/dL (7-18)
[2023-03-10 18:24] LABS: BILIRUBIN,TOTAL 0.3 mg/dL (0.2-1); TOT PROT 6.7 g/dl (6.4-8.2)
[2023-03-10 19:55] LABS: BASO % 0.5 % (0-2.0); HEMATOCRIT 28.2 % (32.4-45.2); HEMOGLOBIN 9.8 GM/dL (10.7-15.3); LYMPH % 23.1 % (8-40); MCH 31.8 pg (25.7-33.7); MCHC 34.7 g/dl (32.0-36.0); MEAN CELL VOLUME 91.6 fl (80-96); MEAN PLT VOLUME 8.5 fl (7.5-11.1); MONO % 12.5 % (3.8-10.2); NEUT % 60.9 % (42.8-82.8); PLATELET COUNT 237 10^3/uL (134-434); RBC 3.08 M/mm3 (3.60-5.2); WHITE BLOOD COUNT 6.2 K/mm3 (4.0-10.0)
[2023-03-10] MEDS ORDERED: SENNOSIDES 8.6MG TABLET (FP) PO SCH (21:52)
[2023-03-10] MEDS: LATANOPROST 0.005% OPHTH SOLN 2.5ML BOTTLE OU SCH (21:58)
[2023-03-10] MEDS: ALPRAZolam 1 MG TABLET PO SCH (21:58)
[2023-03-10] MEDS: SENNOSIDES 8.6MG TABLET (FP) PO SCH (22:03)
[2023-03-11] MEDS: AZTREONAM 1 GM in DEXTROSE 5%-WATER - 50 ML IVPB SCH ×2 (01:28→15:17)
[2023-03-11] MEDS: FUROSEMIDE 40 MG/4 ML INJECTABLE VIAL IVPUSH SCH ×2 (05:33→15:17)
[2023-03-11] MEDS: PATIENT'S OWN MEDICATION (NON-FORMULARY) (Linaclotide [Linzess] 290 MCG Capsule) PO SCH (06:08)
[2023-03-11] MEDS: INSULIN SLIDING SCALE (NOVOLOG) 1 VIAL SQ SCH ×3 (06:08→17:23)
[2023-03-11 08:24] LABS: BASO % 0.6 % (0-2.0); HEMATOCRIT 27.7 % (32.4-45.2); HEMOGLOBIN 9.5 GM/dL (10.7-15.3); LYMPH % 26.6 % (8-40); MCH 31.7 pg (25.7-33.7); MCHC 34.4 g/dl (32.0-36.0); MEAN CELL VOLUME 92.2 fl (80-96); MEAN PLT VOLUME 8.5 fl (7.5-11.1); MONO % 11.8 % (3.8-10.2); PLATELET COUNT 238 10^3/uL (134-434); RBC 3.01 M/mm3 (3.60-5.2); RDW 12.8 % (11.6-15.6); WHITE BLOOD COUNT 6.1 K/mm3 (4.0-10.0)
[2023-03-11] MEDS: oxyCODONE HCL 5 MG TABLET PO PRN ×2 (08:40→18:52)
[2023-03-11 08:43] LABS: POTASSIUM 3.4 mmol/L (3.5-5.1)
[2023-03-11 08:46] LABS: ALBUMIN 2.7 g/dl (3.4-5.0); CALCIUM 9.6 mg/dL (8.5-10.1)
[2023-03-11 08:47] LABS: BLOOD UREA NITROGEN 67.7 mg/dL (7-18)
[2023-03-11 08:51] LABS: TOT PROT 6.8 g/dl (6.4-8.2)
[2023-03-11 08:54] LABS: BILIRUBIN,TOTAL 0.6 mg/dL (0.2-1)
[2023-03-11] MEDS: POTASSIUM CHLORIDE TABS 20 MEQ TABLET.ER (FP) PO SCH ×2 (10:15→22:06)
[2023-03-11] MEDS: ISOSORBIDE MONONITRATE 60 MG TAB.SR.24H (FP) PO SCH (10:15)
[2023-03-11] MEDS: PANTOPRAZOLE 40 MG TABLET PO SCH ×2 (10:15→22:07)
[2023-03-11] MEDS: ROSUVASTATIN CA 20 MG TABLET PO SCH (10:16)
[2023-03-11] MEDS: APIXABAN 5 MG TABLET PO SCH ×2 (10:16→22:06)
[2023-03-11] MEDS: LABETALOL HCL 200 MG TABLET (FP) PO SCH ×2 (10:17→22:06)
[2023-03-11] MEDS: CLOPIDOGREL BISULFATE 75 MG TABLET (FP) PO SCH (10:17)
[2023-03-11] MEDS: POLYETHYLENE GLYCOL (HEALTHYLAX) 3350 17 GM PACKET PO SCH ×2 (10:17→22:07)
[2023-03-11] MEDS: BRIMONIDINE TARTRATE 0.2% OPHTHALMIC 5 ML BOTTLE OU SCH ×2 (10:18→22:07)
[2023-03-11] MEDS: HYDROXYCHLOROQUINE SO4 200 MG TABLET (FP) PO SCH (10:23)
[2023-03-11] MEDS: PRUCALOPRIDE SUCCINATE 1 MG PO SCH (11:00)
[2023-03-11] MEDS: ACETAMINOPHEN 325 MG TABLET (FP) PO PRN (15:19)
[2023-03-11] MEDS ORDERED: SIMETHICONE 80 MG TAB.CHEW (FP) PO ONE (18:44)
[2023-03-11] MEDS: LATANOPROST 0.005% OPHTH SOLN 2.5ML BOTTLE OU SCH (22:07)
[2023-03-11] MEDS: ALPRAZolam 1 MG TABLET PO SCH (22:07)
[2023-03-11] MEDS: SENNOSIDES 8.6MG TABLET (FP) PO SCH (22:07)
[2023-03-12] MEDS: AZTREONAM 1 GM in DEXTROSE 5%-WATER - 50 ML IVPB SCH ×2 (01:49→15:20)
[2023-03-12] MEDS: oxyCODONE HCL 5 MG TABLET PO PRN ×3 (01:49→23:50)
[2023-03-12] MEDS: PATIENT'S OWN MEDICATION (NON-FORMULARY) (Linaclotide [Linzess] 290 MCG Capsule) PO SCH (06:05)
[2023-03-12] MEDS: FUROSEMIDE 40 MG/4 ML INJECTABLE VIAL IVPUSH SCH ×2 (06:05→15:07)
[2023-03-12] MEDS: INSULIN SLIDING SCALE (NOVOLOG) 1 VIAL SQ SCH ×3 (06:08→17:07)
[2023-03-12 08:23] LABS: BASO % 0.5 % (0-2.0); EOS % 2.5 % (0-4.5); HEMATOCRIT 28.5 % (32.4-45.2); LYMPH % 21.8 % (8-40); MCH 31.9 pg (25.7-33.7); MEAN CELL VOLUME 91.2 fl (80-96); MEAN PLT VOLUME 8.3 fl (7.5-11.1); MONO % 9.7 % (3.8-10.2); NEUT % 65.5 % (42.8-82.8); PLATELET COUNT 261 10^3/uL (134-434); RBC 3.12 M/mm3 (3.60-5.2); RDW 13.1 % (11.6-15.6); WHITE BLOOD COUNT 7.4 K/mm3 (4.0-10.0)
[2023-03-12 08:57] LABS: ALBUMIN 2.8 g/dl (3.4-5.0); BILIRUBIN,TOTAL 0.8 mg/dL (0.2-1); BLOOD UREA NITROGEN 69.9 mg/dL (7-18); CREATININE 2.9 mg/dL (0.55-1.3); POTASSIUM 3.1 mmol/L (3.5-5.1)
[2023-03-12] MEDS ORDERED: METHYLNALTREXONE BROMIDE 8 MG/0.4 ML SYRINGE SQ ONE (09:43)
[2023-03-12] MEDS ORDERED: MINERAL OIL ENEMA 133 ML ENEMA RC PRN (09:44)
[2023-03-12] MEDS: ROSUVASTATIN CA 20 MG TABLET PO SCH (09:54)
[2023-03-12] MEDS: POTASSIUM CHLORIDE TABS 20 MEQ TABLET.ER (FP) PO SCH ×2 (09:54→21:10)
[2023-03-12] MEDS: LABETALOL HCL 200 MG TABLET (FP) PO SCH ×2 (09:54→21:10)
[2023-03-12] MEDS: ISOSORBIDE MONONITRATE 60 MG TAB.SR.24H (FP) PO SCH (09:54)
[2023-03-12] MEDS: POLYETHYLENE GLYCOL (HEALTHYLAX) 3350 17 GM PACKET PO SCH ×2 (09:55→21:11)
[2023-03-12] MEDS: HYDROXYCHLOROQUINE SO4 200 MG TABLET (FP) PO SCH (09:55)
[2023-03-12] MEDS: CLOPIDOGREL BISULFATE 75 MG TABLET (FP) PO SCH (09:55)
[2023-03-12] MEDS: APIXABAN 5 MG TABLET PO SCH ×2 (09:55→21:10)
[2023-03-12] MEDS: PANTOPRAZOLE 40 MG TABLET PO SCH ×2 (09:55→21:10)
[2023-03-12] MEDS: PRUCALOPRIDE SUCCINATE 1 MG PO SCH (09:55)
[2023-03-12] MEDS: BRIMONIDINE TARTRATE 0.2% OPHTHALMIC 5 ML BOTTLE OU SCH ×2 (09:56→21:08)
[2023-03-12] MEDS: HYDROCORTISONE 2.5% TOPICAL CREAM 30 GM TUBE RC SCH (10:15)
[2023-03-12] MEDS ORDERED: POTASSIUM CHLORIDE ORAL LIQUID 20 MEQ/15 ML PO ONE (15:51)
[2023-03-12] MEDS: LATANOPROST 0.005% OPHTH SOLN 2.5ML BOTTLE OU SCH (21:08)
[2023-03-12] MEDS: ALPRAZolam 1 MG TABLET PO SCH (21:10)
[2023-03-12] MEDS: SENNOSIDES 8.6MG TABLET (FP) PO SCH (21:10)
[2023-03-13] MEDS: ACETAMINOPHEN 325 MG TABLET (FP) PO PRN ×2 (03:05→09:18)
[2023-03-13] MEDS: oxyCODONE HCL 5 MG TABLET PO PRN ×2 (05:47→10:56)
[2023-03-13] MEDS: FUROSEMIDE 40 MG/4 ML INJECTABLE VIAL IVPUSH SCH (06:00)
[2023-03-13] MEDS: INSULIN SLIDING SCALE (NOVOLOG) 1 VIAL SQ SCH ×3 (06:10→16:48)
[2023-03-13] MEDS: PATIENT'S OWN MEDICATION (NON-FORMULARY) (Linaclotide [Linzess] 290 MCG Capsule) PO SCH (06:11)
[2023-03-13] MEDS ORDERED: SIMETHICONE 40 MG/0.6 ML BOTTLE PO ONE (06:17)
[2023-03-13] MEDS: APIXABAN 5 MG TABLET PO SCH (09:13)
[2023-03-13] MEDS: ROSUVASTATIN CA 20 MG TABLET PO SCH (09:13)
[2023-03-13] MEDS: POLYETHYLENE GLYCOL (HEALTHYLAX) 3350 17 GM PACKET PO SCH ×2 (09:14→21:33)
[2023-03-13] MEDS: ISOSORBIDE MONONITRATE 60 MG TAB.SR.24H (FP) PO SCH (09:14)
[2023-03-13] MEDS: LABETALOL HCL 200 MG TABLET (FP) PO SCH ×2 (09:14→22:02)
[2023-03-13] MEDS: POTASSIUM CHLORIDE TABS 20 MEQ TABLET.ER (FP) PO SCH ×2 (09:14→21:33)
[2023-03-13] MEDS: PANTOPRAZOLE 40 MG TABLET PO SCH (09:15)
[2023-03-13] MEDS: HYDROXYCHLOROQUINE SO4 200 MG TABLET (FP) PO SCH (09:15)
[2023-03-13] MEDS: CLOPIDOGREL BISULFATE 75 MG TABLET (FP) PO SCH (09:15)
[2023-03-13] MEDS: PRUCALOPRIDE SUCCINATE 1 MG PO SCH (09:16)
[2023-03-13] MEDS: BRIMONIDINE TARTRATE 0.2% OPHTHALMIC 5 ML BOTTLE OU SCH ×2 (09:17→21:33)
[2023-03-13] MEDS: HYDROCORTISONE 2.5% TOPICAL CREAM 30 GM TUBE RC SCH (09:17)
[2023-03-13] MEDS ORDERED: POTASSIUM CHLORIDE ORAL LIQUID 20 MEQ/15 ML PO ONE ×3 (13:02→16:00)
[2023-03-13 14:01] VITALS: PULSE 65
[2023-03-13 18:30] VITALS: RESP 20
[2023-03-13] MEDS: LATANOPROST 0.005% OPHTH SOLN 2.5ML BOTTLE OU SCH (21:33)
[2023-03-13] MEDS: SENNOSIDES 8.6MG TABLET (FP) PO SCH (21:33)
[2023-03-13] MEDS ORDERED: FAMOTIDINE 20 MG TABLET PO SCH (22:00)
[2023-03-13] MEDS ORDERED: ALPRAZolam 1 MG TABLET PO ONE (22:07)
[2023-03-13 23:13] VITALS: BP 150/55; TEMP 98.8
[2023-03-14] MEDS ORDERED: TORSEMIDE 20 MG TABLET (FP) PO SCH (10:00)
[2023-03-14] MEDS ORDERED: METHYLNALTREXONE BROMIDE 8 MG/0.4 ML SYRINGE SQ SCH (10:00)
== END 2023-03-13 23:29 | disposition short-term general hospital (02) | DRG 291 ==
LOC: JER 08:15 → OBSVTOIN 10:59 → UNDOADMOB 10:59 → JERBED 10:59 → INTOOBSV 10:59 → OBSVTOIN 12:05 → JERBED 12:05 → J5S 15:53
PROVIDERS: ADMIT Internal Medicine; ATTEND Student in an Organized Health Care Education/Training Program
DX: I13.0 Hypertensive heart and chronic kidney disease with heart failure and stage 1 through stage 4 chronic kidney disease, or unspecified chronic kidney disease (principal); I50.33 Acute on chronic diastolic (congestive) heart failure; S42.214A Unspecified nondisplaced fracture of surgical neck of right humerus, initial encounter for closed fracture; N39.0 Urinary tract infection, site not specified; I69.351 Hemiplegia and hemiparesis following cerebral infarction affecting right dominant side; J96.11 Chronic respiratory failure with hypoxia; N17.9 Acute kidney failure, unspecified; S42.201A Unspecified fracture of upper end of right humerus, initial encounter for closed fracture; F03.90 Unspecified dementia, unspecified severity, without behavioral disturbance, psychotic disturbance, mood disturbance, and anxiety; Z86.718 Personal history of other venous thrombosis and embolism; E11.22 Type 2 diabetes mellitus with diabetic chronic kidney disease; N18.9 Chronic kidney disease, unspecified; K21.9 Gastro-esophageal reflux disease without esophagitis; Z79.01 Long term (current) use of anticoagulants; Z79.4 Long term (current) use of insulin; M25.511 Pain in right shoulder; E78.5 Hyperlipidemia, unspecified; D64.9 Anemia, unspecified; E66.9 Obesity, unspecified; Z68.39 Body mass index [BMI] 39.0-39.9, adult; I48.0 Paroxysmal atrial fibrillation; M32.9 Systemic lupus erythematosus, unspecified; W01.0XXA Fall on same level from slipping, tripping and stumbling without subsequent striking against object, initial encounter; Y93.89 Activity, other specified; Y92.002 Bathroom of unspecified non-institutional (private) residence as the place of occurrence of the external cause; Y99.8 Other external cause status; N26.1 Atrophy of kidney (terminal); E66.01 Morbid (severe) obesity due to excess calories; I49.5 Sick sinus syndrome
CPT/HCPCS: 0241U-QW; 36415; 71045-TC-FY; 72170-TC-FY; 73030-TC-RT-FY; 73060-TC-RT-FY; 73200-TC-RT; 73560-TC-LT-FY; 73560-TC-RT-FY; 73590-TC-RT-FY; 74018-TC-FY; 76775-TC; 80048; 80053; 81003; 82962; 83735; 83880; 84100; 84484; 85025; 85610; 85730; 87086; 87186; 93005; 93010; 97116-GP; 97162-GP; 99285-25; C9803-CS; U0003; U0005

== ENCOUNTER 2023-04-16 15:47 | Inpatient (IN) | payer OTHER ==
[2023-04-16 17:38] LABS: BASO % 0.4 % (0-2.0); EOS % 1.5 % (0-4.5); HEMATOCRIT 32.6 % (32.4-45.2); HEMOGLOBIN 10.8 GM/dL (10.7-15.3); LYMPH % 23.3 % (8-40); MCH 30.6 pg (25.7-33.7); MCHC 33.1 g/dl (32.0-36.0); MEAN CELL VOLUME 92.3 fl (80-96); MEAN PLT VOLUME 8.2 fl (7.5-11.1); MONO % 10.3 % (3.8-10.2); NEUT % 64.5 % (42.8-82.8); PLATELET COUNT 186 10^3/uL (134-434); RBC 3.53 M/mm3 (3.60-5.2); RDW 13.9 % (11.6-15.6); WHITE BLOOD COUNT 5.2 K/mm3 (4.0-10.0)
[2023-04-16 17:52] LABS: INR 1.18 (0.83-1.09); PROTHROMBIN TIME (PATIENT) 13.7 SEC (9.7-13.0)
[2023-04-16 17:55] LABS: ACTIVATED PTT 31.5 SECONDS (25.2-36.5)
[2023-04-16 17:57] LABS: CHLORIDE 99 mmol/L (98-107); POTASSIUM 4.4 mmol/L (3.5-5.1); SODIUM 143 mmol/L (136-145)
[2023-04-16 18:00] LABS: CALCIUM 9.3 mg/dL (8.5-10.1)
[2023-04-16 18:02] LABS: ALBUMIN 3.2 g/dl (3.4-5.0); ANION GAP 9 MMOL/L (8-16); BLOOD UREA NITROGEN 50.5 mg/dL (7-18); CO2 35 mmol/L (21-32); GLUCOSE,RANDOM 204 mg/dL (74-106); MAGNESIUM 2.2 mg/dL (1.8-2.4)
[2023-04-16 18:05] LABS: CREATININE 3.6 mg/dL (0.55-1.3); SGOT/AST 168 U/L (15-37); SGPT/ALT 209 U/L (13-61)
[2023-04-16 18:06] LABS: BILIRUBIN,TOTAL 0.8 mg/dL (0.2-1); TOT PROT 7.3 g/dl (6.4-8.2)
[2023-04-16 18:08] LABS: ALK PHOS 195 U/L (45-117)
[2023-04-16 20:37] LABS: PH,URINE 7.5 (5.0-8.0); URINE APPEARANCE CLEAR; URINE BILIRUBIN NEGATIVE (NEGATIVE); URINE COLOR YELLOW; URINE GLUCOSE (UA) NEGATIVE (NEGATIVE); URINE KETONE NEGATIVE (NEGATIVE); URINE LEUK ESTERASE NEGATIVE (NEGATIVE); URINE NITRITE NEGATIVE (NEGATIVE); URINE PROTEIN TRACE (NEGATIVE); URINE UROBILINOGEN 0.2 mg/dL (0.2-1.0)
[2023-04-17] MEDS ORDERED: SODIUM CHLORIDE 1,000 ML IV SCH (00:45)
[2023-04-17] MEDS: hydrALAZINE HCL 10 MG TABLET PO SCH ×3 (02:54→22:40)
[2023-04-17] MEDS: APIXABAN 5 MG TABLET PO SCH ×3 (02:55→22:39)
[2023-04-17] MEDS ORDERED: INSULIN (NOVOLOG) ASPART 100 UNITS/ML 10ML VIAL ONE ×3 (05:30→16:34)
[2023-04-17] MEDS: INSULIN SLIDING SCALE (NOVOLOG) 1 VIAL SQ SCH ×3 (06:00→16:38)
[2023-04-17] MEDS ORDERED: QUEtiapine FUMARATE 25 MG TABLET PO SCH ×2 (08:00→22:00)
[2023-04-17 09:02] LABS: VENOUS BASE EXCESS 4.8 mmol/L (-2-2); VENOUS O2 SATURATION 81.8 % (70-80); VENOUS PCO2 43.9 mmHg (38-52); VENOUS PH 7.444 (7.310-7.410)
[2023-04-17 09:45] LABS: BASO % 0.9 % (0-2.0); EOS % 1.6 % (0-4.5); HEMATOCRIT 33.2 % (32.4-45.2); HEMOGLOBIN 10.7 GM/dL (10.7-15.3); LYMPH % 28.5 % (8-40); MCH 30.5 pg (25.7-33.7); MCHC 32.3 g/dl (32.0-36.0); MEAN CELL VOLUME 94.4 fl (80-96); MEAN PLT VOLUME 9.2 fl (7.5-11.1); MONO % 9.6 % (3.8-10.2); NEUT % 59.4 % (42.8-82.8); PLATELET COUNT 203 10^3/uL (134-434); RBC 3.52 M/mm3 (3.60-5.2); RDW 13.9 % (11.6-15.6)
[2023-04-17] MEDS ORDERED: HYDROXYCHLOROQUINE SO4 200 MG TABLET (FP) PO SCH (10:00)
[2023-04-17 10:07] LABS: POTASSIUM 3.5 mmol/L (3.5-5.1)
[2023-04-17 10:08] LABS: CALCIUM 9.7 mg/dL (8.5-10.1)
[2023-04-17 10:09] LABS: BLOOD UREA NITROGEN 42.9 mg/dL (7-18); MAGNESIUM 1.9 mg/dL (1.8-2.4)
[2023-04-17 10:10] LABS: ALBUMIN 3.2 g/dl (3.4-5.0)
[2023-04-17 10:12] LABS: BILIRUBIN,DIRECT 0.3 mg/dL (0.0-0.2); CREATININE 3.2 mg/dL (0.55-1.3); PHOSPHOROUS 2.7 mg/dL (2.5-4.9)
[2023-04-17 10:14] LABS: BILIRUBIN,TOTAL 0.7 mg/dL (0.2-1); BILIRUBIN,TOTAL 0.9 mg/dL (0.2-1); TOT PROT 6.9 g/dl (6.4-8.2)
[2023-04-17] MEDS: ISOSORBIDE MONONITRATE 60 MG TAB.SR.24H (FP) PO SCH (10:55)
[2023-04-17] MEDS: LABETALOL HCL 200 MG TABLET (FP) PO SCH ×2 (10:59→22:39)
[2023-04-17] MEDS: QUEtiapine FUMARATE 25 MG TABLET PO SCH (10:59)
[2023-04-17] MEDS: CLOPIDOGREL BISULFATE 75 MG TABLET (FP) PO SCH (10:59)
[2023-04-17] MEDS: INSULIN (LEVEMIR) 100 UNITS/ML UNITS SQ SCH (11:09)
[2023-04-17] MEDS: BRIMONIDINE TARTRATE 0.2% OPHTHALMIC 5 ML BOTTLE OU SCH ×2 (13:45→22:40)
[2023-04-17] MEDS: ACETAMINOPHEN 500 MG TABLET (FP) PO PRN (22:39)
[2023-04-17] MEDS: PREGABALIN 50 MG CAPSULE PO SCH (22:43)
[2023-04-17] MEDS: LATANOPROST 0.005% OPHTH SOLN 2.5ML BOTTLE OU SCH (22:44)
[2023-04-18] MEDS: INSULIN SLIDING SCALE (NOVOLOG) 1 VIAL SQ SCH ×5 (01:25→23:17)
[2023-04-18 09:01] LABS: BASO % 0.7 % (0-2.0); EOS % 1.5 % (0-4.5); HEMATOCRIT 30.2 % (32.4-45.2); INR 1.69 (0.83-1.09); LYMPH % 38.8 % (8-40); MCH 30.8 pg (25.7-33.7); MCHC 33.1 g/dl (32.0-36.0); MEAN CELL VOLUME 93.2 fl (80-96); MEAN PLT VOLUME 8.9 fl (7.5-11.1); MONO % 12.1 % (3.8-10.2); NEUT % 46.9 % (42.8-82.8); PLATELET COUNT 206 10^3/uL (134-434); PROTHROMBIN TIME (PATIENT) 19.5 SEC (9.7-13.0); RBC 3.24 M/mm3 (3.60-5.2); RDW 13.9 % (11.6-15.6); WHITE BLOOD COUNT 4.8 K/mm3 (4.0-10.0)
[2023-04-18 09:20] LABS: POTASSIUM 3.3 mmol/L (3.5-5.1)
[2023-04-18 09:23] LABS: ALBUMIN 2.9 g/dl (3.4-5.0); BLOOD UREA NITROGEN 42.2 mg/dL (7-18); CALCIUM 9.4 mg/dL (8.5-10.1)
[2023-04-18 09:26] LABS: BILIRUBIN,DIRECT 0.2 mg/dL (0.0-0.2); CREATININE 3.3 mg/dL (0.55-1.3)
[2023-04-18 09:29] LABS: BILIRUBIN,TOTAL 0.7 mg/dL (0.2-1); TOT PROT 6.3 g/dl (6.4-8.2)
[2023-04-18] MEDS: LABETALOL HCL 200 MG TABLET (FP) PO SCH ×2 (09:39→23:15)
[2023-04-18] MEDS: CLOPIDOGREL BISULFATE 75 MG TABLET (FP) PO SCH (09:39)
[2023-04-18] MEDS: ISOSORBIDE MONONITRATE 60 MG TAB.SR.24H (FP) PO SCH (09:39)
[2023-04-18] MEDS: QUEtiapine FUMARATE 25 MG TABLET PO SCH (09:39)
[2023-04-18] MEDS: TORSEMIDE 20 MG TABLET (FP) PO SCH (09:40)
[2023-04-18] MEDS: hydrALAZINE HCL 10 MG TABLET PO SCH ×2 (09:40→23:15)
[2023-04-18] MEDS: APIXABAN 5 MG TABLET PO SCH ×2 (09:41→23:15)
[2023-04-18] MEDS: BRIMONIDINE TARTRATE 0.2% OPHTHALMIC 5 ML BOTTLE OU SCH ×2 (09:42→23:23)
[2023-04-18 09:53] LABS: ERYTHROCYTE SEDIMENTATION RATE 53 mm/hr (0-30)
[2023-04-18] MEDS: INSULIN (LEVEMIR) 100 UNITS/ML UNITS SQ SCH (10:39)
[2023-04-18] MEDS: INSULIN (NOVOLOG) ASPART 100 UNITS/ML 10ML VIAL SQ SCH ×2 (10:40→16:38)
[2023-04-18 12:52] LABS: HEPATITIS B SURFACE AG MATERN NON-REACTIVE (NONREACTIVE)
[2023-04-18] MEDS ORDERED: POTASSIUM CHLORIDE ORAL LIQUID 20 MEQ/15 ML PO ONE (14:15)
[2023-04-18] MEDS: SIMETHICONE 80 MG TAB.CHEW (FP) PO PRN (16:41)
[2023-04-18] MEDS: PREGABALIN 50 MG CAPSULE PO SCH (23:15)
[2023-04-19] MEDS: LATANOPROST 0.005% OPHTH SOLN 2.5ML BOTTLE OU SCH ×2 (00:30→21:03)
[2023-04-19] MEDS: INSULIN (NOVOLOG) ASPART 100 UNITS/ML 10ML VIAL SQ SCH ×3 (06:34→16:28)
[2023-04-19] MEDS: INSULIN SLIDING SCALE (NOVOLOG) 1 VIAL SQ SCH ×4 (06:34→21:05)
[2023-04-19 09:24] LABS: POTASSIUM 3.8 mmol/L (3.5-5.1)
[2023-04-19 09:38] LABS: ALBUMIN 2.9 g/dl (3.4-5.0); CALCIUM 9.8 mg/dL (8.5-10.1)
[2023-04-19 09:40] LABS: BLOOD UREA NITROGEN 38.9 mg/dL (7-18)
[2023-04-19 09:42] LABS: CREATININE 3.1 mg/dL (0.55-1.3)
[2023-04-19 09:43] LABS: BILIRUBIN,TOTAL 0.7 mg/dL (0.2-1); TOT PROT 6.2 g/dl (6.4-8.2)
[2023-04-19] MEDS: LABETALOL HCL 200 MG TABLET (FP) PO SCH ×2 (10:49→21:04)
[2023-04-19] MEDS: APIXABAN 5 MG TABLET PO SCH ×2 (10:49→21:03)
[2023-04-19] MEDS: QUEtiapine FUMARATE 25 MG TABLET PO SCH (10:49)
[2023-04-19] MEDS: hydrALAZINE HCL 10 MG TABLET PO SCH ×2 (10:49→21:03)
[2023-04-19] MEDS: TORSEMIDE 20 MG TABLET (FP) PO SCH (10:49)
[2023-04-19] MEDS: CLOPIDOGREL BISULFATE 75 MG TABLET (FP) PO SCH (10:49)
[2023-04-19] MEDS: LINACLOTIDE 290 MCG PO SCH (10:50)
[2023-04-19] MEDS: [UNRECOGNIZED DRUG - OTHER] PO SCH (10:50)
[2023-04-19] MEDS: ISOSORBIDE MONONITRATE 60 MG TAB.SR.24H (FP) PO SCH (10:52)
[2023-04-19] MEDS: PANTOPRAZOLE 40 MG TABLET PO SCH (11:00)
[2023-04-19] MEDS: INSULIN (LEVEMIR) 100 UNITS/ML UNITS SQ SCH (11:05)
[2023-04-19] MEDS: BRIMONIDINE TARTRATE 0.2% OPHTHALMIC 5 ML BOTTLE OU SCH ×2 (11:09→21:02)
[2023-04-19] MEDS: SIMETHICONE 80 MG TAB.CHEW (FP) PO PRN (16:31)
[2023-04-19] MEDS: ACETAMINOPHEN 500 MG TABLET (FP) PO PRN (16:31)
[2023-04-19] MEDS ORDERED: INSULIN (NOVOLOG) ASPART 100 UNITS/ML 10ML VIAL ONE (20:50)
[2023-04-19] MEDS: PREGABALIN 50 MG CAPSULE PO SCH (21:04)
[2023-04-20] MEDS: INSULIN SLIDING SCALE (NOVOLOG) 1 VIAL SQ SCH ×4 (06:01→22:04)
[2023-04-20] MEDS: INSULIN (NOVOLOG) ASPART 100 UNITS/ML 10ML VIAL SQ SCH ×3 (06:01→17:17)
[2023-04-20] MEDS: LABETALOL HCL 200 MG TABLET (FP) PO SCH ×2 (08:59→21:35)
[2023-04-20] MEDS: PANTOPRAZOLE 40 MG TABLET PO SCH (08:59)
[2023-04-20] MEDS: ISOSORBIDE MONONITRATE 60 MG TAB.SR.24H (FP) PO SCH (08:59)
[2023-04-20] MEDS: QUEtiapine FUMARATE 25 MG TABLET PO SCH (08:59)
[2023-04-20] MEDS: CLOPIDOGREL BISULFATE 75 MG TABLET (FP) PO SCH (08:59)
[2023-04-20] MEDS: hydrALAZINE HCL 10 MG TABLET PO SCH ×2 (08:59→21:36)
[2023-04-20] MEDS: APIXABAN 5 MG TABLET PO SCH ×2 (08:59→21:36)
[2023-04-20] MEDS: INSULIN (LEVEMIR) 100 UNITS/ML UNITS SQ SCH (09:00)
[2023-04-20] MEDS: TORSEMIDE 20 MG TABLET (FP) PO SCH (09:00)
[2023-04-20] MEDS: [UNRECOGNIZED DRUG - OTHER] PO SCH (09:01)
[2023-04-20] MEDS: LINACLOTIDE 290 MCG PO SCH (09:01)
[2023-04-20] MEDS: BRIMONIDINE TARTRATE 0.2% OPHTHALMIC 5 ML BOTTLE OU SCH ×2 (09:12→21:36)
[2023-04-20 10:00] LABS: POTASSIUM 3.5 mmol/L (3.5-5.1)
[2023-04-20 10:02] LABS: CALCIUM 9.3 mg/dL (8.5-10.1)
[2023-04-20 10:03] LABS: ALBUMIN 2.9 g/dl (3.4-5.0); BLOOD UREA NITROGEN 34.9 mg/dL (7-18)
[2023-04-20 10:06] LABS: CREATININE 3.1 mg/dL (0.55-1.3)
[2023-04-20 10:08] LABS: BILIRUBIN,TOTAL 0.5 mg/dL (0.2-1); TOT PROT 6.6 g/dl (6.4-8.2)
[2023-04-20 13:07] LABS: SOLUBLE LIVER ANTIGEN ABS IgG 0.7 units (0.0-20.0)
[2023-04-20] MEDS ORDERED: QUEtiapine FUMARATE 25 MG TABLET PO PRN (17:42)
[2023-04-20] MEDS: ACETAMINOPHEN 500 MG TABLET (FP) PO PRN (21:36)
[2023-04-20] MEDS: PREGABALIN 50 MG CAPSULE PO SCH (21:36)
[2023-04-20] MEDS: LATANOPROST 0.005% OPHTH SOLN 2.5ML BOTTLE OU SCH (21:37)
[2023-04-20] MEDS: ALPRAZolam 1 MG TABLET PO SCH (21:37)
[2023-04-21] MEDS: INSULIN (NOVOLOG) ASPART 100 UNITS/ML 10ML VIAL SQ SCH ×3 (06:03→16:46)
[2023-04-21] MEDS: INSULIN SLIDING SCALE (NOVOLOG) 1 VIAL SQ SCH ×4 (06:03→21:59)
[2023-04-21 09:09] LABS: POTASSIUM 3.2 mmol/L (3.5-5.1)
[2023-04-21 09:11] LABS: BLOOD UREA NITROGEN 35.7 mg/dL (7-18); CALCIUM 9.3 mg/dL (8.5-10.1)
[2023-04-21 09:14] LABS: CREATININE 3.1 mg/dL (0.55-1.3)
[2023-04-21 09:16] LABS: BILIRUBIN,TOTAL 0.4 mg/dL (0.2-1); TOT PROT 6.4 g/dl (6.4-8.2)
[2023-04-21] MEDS: hydrALAZINE HCL 10 MG TABLET PO SCH ×2 (10:10→21:54)
[2023-04-21] MEDS: APIXABAN 5 MG TABLET PO SCH ×2 (10:10→21:54)
[2023-04-21] MEDS: PANTOPRAZOLE 40 MG TABLET PO SCH (10:10)
[2023-04-21] MEDS: LABETALOL HCL 200 MG TABLET (FP) PO SCH ×2 (10:11→21:55)
[2023-04-21] MEDS: ISOSORBIDE MONONITRATE 60 MG TAB.SR.24H (FP) PO SCH (10:12)
[2023-04-21] MEDS: [UNRECOGNIZED DRUG - OTHER] PO SCH (10:13)
[2023-04-21] MEDS: LINACLOTIDE 290 MCG PO SCH (10:14)
[2023-04-21] MEDS: CLOPIDOGREL BISULFATE 75 MG TABLET (FP) PO SCH (10:14)
[2023-04-21] MEDS: TORSEMIDE 20 MG TABLET (FP) PO SCH (10:17)
[2023-04-21] MEDS: BRIMONIDINE TARTRATE 0.2% OPHTHALMIC 5 ML BOTTLE OU SCH ×2 (10:22→21:53)
[2023-04-21] MEDS: INSULIN (LEVEMIR) 100 UNITS/ML UNITS SQ SCH (10:24)
[2023-04-21] MEDS ORDERED: POTASSIUM CHLORIDE ORAL LIQUID 20 MEQ/15 ML PO ONE (11:00)
[2023-04-21 14:04] VITALS: RESP 18
[2023-04-21] MEDS: SIMETHICONE 80 MG TAB.CHEW (FP) PO PRN (18:29)
[2023-04-21] MEDS: ACETAMINOPHEN 500 MG TABLET (FP) PO PRN (18:30)
[2023-04-21] MEDS: PANTOPRAZOLE 20 MG TABLET PO SCH (18:32)
[2023-04-21] MEDS: ALPRAZolam 1 MG TABLET PO SCH (21:54)
[2023-04-21] MEDS: PREGABALIN 50 MG CAPSULE PO SCH (21:54)
[2023-04-21] MEDS: LATANOPROST 0.005% OPHTH SOLN 2.5ML BOTTLE OU SCH (21:55)
[2023-04-22] MEDS: INSULIN SLIDING SCALE (NOVOLOG) 1 VIAL SQ SCH ×2 (06:14→11:46)
[2023-04-22] MEDS: BRIMONIDINE TARTRATE 0.2% OPHTHALMIC 5 ML BOTTLE OU SCH (09:34)
[2023-04-22] MEDS ORDERED: PANTOPRAZOLE 40 MG TABLET PO SCH (10:00)
[2023-04-22 10:01] LABS: POTASSIUM 3.8 mmol/L (3.5-5.1)
[2023-04-22 10:04] LABS: CALCIUM 9.3 mg/dL (8.5-10.1)
[2023-04-22 10:05] LABS: BLOOD UREA NITROGEN 35.3 mg/dL (7-18)
[2023-04-22 10:08] LABS: CREATININE 2.9 mg/dL (0.55-1.3)
[2023-04-22] MEDS: [UNRECOGNIZED DRUG - OTHER] PO SCH (10:27)
[2023-04-22] MEDS: LINACLOTIDE 290 MCG PO SCH (10:27)
[2023-04-22] MEDS: PANTOPRAZOLE 20 MG TABLET PO SCH (10:27)
[2023-04-22] MEDS: TORSEMIDE 20 MG TABLET (FP) PO SCH (10:28)
[2023-04-22] MEDS: hydrALAZINE HCL 10 MG TABLET PO SCH (10:28)
[2023-04-22] MEDS: APIXABAN 5 MG TABLET PO SCH (10:28)
[2023-04-22] MEDS: LABETALOL HCL 200 MG TABLET (FP) PO SCH (10:28)
[2023-04-22] MEDS: CLOPIDOGREL BISULFATE 75 MG TABLET (FP) PO SCH (10:28)
[2023-04-22] MEDS: ISOSORBIDE MONONITRATE 60 MG TAB.SR.24H (FP) PO SCH (10:28)
[2023-04-22] MEDS: INSULIN (LEVEMIR) 100 UNITS/ML UNITS SQ SCH (10:46)
[2023-04-22] MEDS: INSULIN (NOVOLOG) ASPART 100 UNITS/ML 10ML VIAL SQ SCH (11:47)
[2023-04-22 13:51] VITALS: BP 138/66; PULSE 68; TEMP 98.7
[2023-04-22 22:19] VITALS: BMI 35.3
== END 2023-04-22 14:58 | disposition home or self-care (01) | DRG 71 ==
LOC: JER 15:47 → JERBED 18:29 → J6S 04-17 02:18
PROVIDERS: ADMIT Internal Medicine; ATTEND Internal Medicine
DX: G93.49 Other encephalopathy (principal); F13.20 Sedative, hypnotic or anxiolytic dependence, uncomplicated; I13.0 Hypertensive heart and chronic kidney disease with heart failure and stage 1 through stage 4 chronic kidney disease, or unspecified chronic kidney disease; I50.42 Chronic combined systolic (congestive) and diastolic (congestive) heart failure; I69.351 Hemiplegia and hemiparesis following cerebral infarction affecting right dominant side; M32.9 Systemic lupus erythematosus, unspecified; F03.90 Unspecified dementia, unspecified severity, without behavioral disturbance, psychotic disturbance, mood disturbance, and anxiety; N18.30 Chronic kidney disease, stage 3 unspecified; T37.8X5A Adverse effect of other specified systemic anti-infectives and antiparasitics, initial encounter; Y92.89 Other specified places as the place of occurrence of the external cause; R44.1 Visual hallucinations; E11.9 Type 2 diabetes mellitus without complications; E78.5 Hyperlipidemia, unspecified; R74.01 Elevation of levels of liver transaminase levels; R33.9 Retention of urine, unspecified; K21.9 Gastro-esophageal reflux disease without esophagitis
CPT/HCPCS: 0241U-QW; 36415; 70450-TC; 71045-TC-FY; 76705-TC; 80048; 80053; 80061; 80076; 80307; 81003; 82140; 82607; 82728; 82746; 82803; 82962; 82977; 83516; 83540; 83550; 83735; 84100; 84443; 85025; 85610; 85651; 85730; 86038; 86140; 86160; 86225; 86705; 86708; 86803; 87086; 87340; 87517; 93005; 93010; 97162-GP; 99285-25

== ENCOUNTER 2023-05-29 10:24 | Inpatient (IN) | payer OTHER ==
[2023-05-29 10:44] VITALS: BMI 38.0
[2023-05-29] MEDS ORDERED: ACETAMINOPHEN 1000 MG/100 ML BAG IVPB ONE (11:15)
[2023-05-29] MEDS ORDERED: ACETAMINOPHEN INJECTION 100 ML IVPB ONE (11:26)
[2023-05-29 12:24] LABS: BASO % 0.5 % (0-2.0); EOS % 2.8 % (0-4.5); HEMATOCRIT 28.7 % (32.4-45.2); HEMOGLOBIN 9.6 GM/dL (10.7-15.3); LYMPH % 31.6 % (8-40); MCH 30.6 pg (25.7-33.7); MCHC 33.3 g/dl (32.0-36.0); MEAN PLT VOLUME 8.9 fl (7.5-11.1); MONO % 8.9 % (3.8-10.2); NEUT % 56.2 % (42.8-82.8); PLATELET COUNT 198 10^3/uL (134-434); RBC 3.12 M/mm3 (3.60-5.2); RDW 14.2 % (11.6-15.6); VENOUS BASE EXCESS 4.4 mmol/L (-2-2); VENOUS O2 SATURATION 57.4 % (70-80); VENOUS PCO2 60.5 mmHg (38-52); VENOUS PH 7.329 (7.310-7.410)
[2023-05-29 12:30] LABS: INR 2.01 (0.83-1.09); PROTHROMBIN TIME (PATIENT) 23.2 SEC (9.7-13.0)
[2023-05-29 12:33] LABS: ACTIVATED PTT 39.3 SECONDS (25.2-36.5)
[2023-05-29 12:45] LABS: POTASSIUM 4.2 mmol/L (3.5-5.1)
[2023-05-29 12:47] LABS: CALCIUM 9.4 mg/dL (8.5-10.1)
[2023-05-29 12:48] LABS: ALBUMIN 3.2 g/dl (3.4-5.0); BLOOD UREA NITROGEN 24.1 mg/dL (7-18); MAGNESIUM 1.9 mg/dL (1.8-2.4)
[2023-05-29 12:51] LABS: CREATININE 2.2 mg/dL (0.55-1.3)
[2023-05-29 12:52] LABS: BILIRUBIN,TOTAL 0.3 mg/dL (0.2-1)
[2023-05-29 12:53] LABS: TOT PROT 6.8 g/dl (6.4-8.2)
[2023-05-29 12:56] LABS: N-TERMINAL BNP 2573.9 pg/ml (5-450)
[2023-05-29] MEDS ORDERED: ACETAMINOPHEN 500 MG TABLET (FP) PO PRN (14:07)
[2023-05-29] MEDS ORDERED: MAG HYDROX/AL HYDROX/SIMETH 30 ML UNIT-DOSE CUP PO PRN (14:07)
[2023-05-29] MEDS: SIMETHICONE 80 MG TAB.CHEW (FP) PO SCH (15:51)
[2023-05-29] MEDS: PANTOPRAZOLE SOD 40 MG SUSPENSION PACKET PO SCH (15:51)
[2023-05-29] MEDS: BETHANECHOL CHLORIDE 5 MG TABLET PO SCH ×2 (17:40→21:56)
[2023-05-29] MEDS ORDERED: INSULIN (NOVOLOG) ASPART 100 UNITS/ML 10ML VIAL ONE (17:43)
[2023-05-29] MEDS: INSULIN SLIDING SCALE (NOVOLOG) 1 VIAL SQ SCH (17:44)
[2023-05-29] MEDS: LABETALOL HCL 200 MG TABLET (FP) PO SCH (21:55)
[2023-05-29] MEDS: APIXABAN 5 MG TABLET PO SCH (21:55)
[2023-05-29] MEDS: hydrALAZINE HCL 10 MG TABLET PO SCH (21:56)
[2023-05-29] MEDS: ALPRAZolam 1 MG TABLET PO PRN (22:02)
[2023-05-29] MEDS: LATANOPROST 0.005% OPHTH SOLN 2.5ML BOTTLE OU SCH (22:46)
[2023-05-29] MEDS: BRIMONIDINE TARTRATE 0.2% OPHTHALMIC 5 ML BOTTLE OU SCH (22:46)
[2023-05-29 23:04] LABS: EPI CELLS 5 /uL (0-25.1); HYALINE CASTS 0 /uL (0-3.1); PH,URINE 5.5 (5.0-8.0); URINE APPEARANCE CLOUDY; URINE BACTERIA >9,000 /uL (0-1359); URINE BILIRUBIN NEGATIVE (NEGATIVE); URINE COLOR YELLOW; URINE GLUCOSE (UA) NEGATIVE (NEGATIVE); URINE KETONE NEGATIVE (NEGATIVE); URINE LEUK ESTERASE 2+ (NEGATIVE); URINE NITRITE POSITIVE (NEGATIVE); URINE PROTEIN NEGATIVE (NEGATIVE); URINE RBC 23 /uL (0-23.9); URINE UROBILINOGEN 0.2 mg/dL (0.2-1.0); URINE WBC 399 /uL (0-25.8)
[2023-05-30] MEDS ORDERED: INSULIN (NOVOLOG) ASPART 100 UNITS/ML 10ML VIAL ONE ×2 (06:46→12:20)
[2023-05-30] MEDS ORDERED: ISOSORBIDE MONONITRATE 60 MG TAB.SR.24H (FP) PO SCH (07:00)
[2023-05-30] MEDS: BETHANECHOL CHLORIDE 5 MG TABLET PO SCH ×2 (07:10→15:32)
[2023-05-30] MEDS: SIMETHICONE 80 MG TAB.CHEW (FP) PO SCH ×2 (07:13→12:06)
[2023-05-30] MEDS: INSULIN SLIDING SCALE (NOVOLOG) 1 VIAL SQ SCH ×3 (07:15→16:59)
[2023-05-30] MEDS: CLOPIDOGREL BISULFATE 75 MG TABLET (FP) PO SCH (09:22)
[2023-05-30] MEDS: LABETALOL HCL 200 MG TABLET (FP) PO SCH ×2 (09:22→21:17)
[2023-05-30] MEDS: hydrALAZINE HCL 10 MG TABLET PO SCH ×2 (09:22→21:17)
[2023-05-30] MEDS: APIXABAN 5 MG TABLET PO SCH ×2 (09:22→21:17)
[2023-05-30] MEDS: TAMSULOSIN HCL 0.4 MG CAP PO SCH (09:22)
[2023-05-30] MEDS: PANTOPRAZOLE SOD 40 MG SUSPENSION PACKET PO SCH (09:23)
[2023-05-30] MEDS: BRIMONIDINE TARTRATE 0.2% OPHTHALMIC 5 ML BOTTLE OU SCH ×2 (09:23→21:18)
[2023-05-30 09:25] LABS: BASO % 0.4 % (0-2.0); EOS % 2.9 % (0-4.5); HEMATOCRIT 28.5 % (32.4-45.2); HEMOGLOBIN 9.2 GM/dL (10.7-15.3); LYMPH % 28.2 % (8-40); MCH 30.3 pg (25.7-33.7); MCHC 32.4 g/dl (32.0-36.0); MEAN CELL VOLUME 93.6 fl (80-96); MEAN PLT VOLUME 9.3 fl (7.5-11.1); MONO % 7.8 % (3.8-10.2); NEUT % 60.7 % (42.8-82.8); PLATELET COUNT 192 10^3/uL (134-434); RBC 3.05 M/mm3 (3.60-5.2); RDW 13.9 % (11.6-15.6); WHITE BLOOD COUNT 4.7 K/mm3 (4.0-10.0)
[2023-05-30 09:51] LABS: BLOOD UREA NITROGEN 27.9 mg/dL (7-18); CALCIUM 9.2 mg/dL (8.5-10.1)
[2023-05-30 09:55] LABS: CREATININE 2.2 mg/dL (0.55-1.3)
[2023-05-30] MEDS ORDERED: ROSUVASTATIN CA 40 MG TABLET PO SCH (10:00)
[2023-05-30] MEDS ORDERED: METOLAZONE 2.5 MG TABLET (FP) PO ONE ×2 (11:43→13:30)
[2023-05-30] MEDS: FUROSEMIDE 40 MG/4 ML INJECTABLE VIAL IVPUSH SCH (13:47)
[2023-05-30] MEDS ORDERED: ISOSORBIDE MONONITRATE 60 MG TAB.SR.24H (FP) PO ONE (14:15)
[2023-05-30] MEDS ORDERED: FUROSEMIDE 40 MG/4 ML INJECTABLE VIAL IVPUSH SCH (14:30)
[2023-05-30] MEDS ORDERED: BETHANECHOL CHLORIDE 10 MG TABLET PO SCH (15:13)
[2023-05-30] MEDS: BETHANECHOL CHLORIDE 10 MG TABLET PO SCH ×2 (15:25→21:19)
[2023-05-30] MEDS: LATANOPROST 0.005% OPHTH SOLN 2.5ML BOTTLE OU SCH (21:18)
[2023-05-31] MEDS ORDERED: INSULIN (NOVOLOG) ASPART 100 UNITS/ML 10ML VIAL ONE ×3 (05:54→17:14)
[2023-05-31] MEDS: FUROSEMIDE 40 MG/4 ML INJECTABLE VIAL IVPUSH SCH ×2 (05:56→14:53)
[2023-05-31] MEDS: BETHANECHOL CHLORIDE 10 MG TABLET PO SCH ×3 (06:01→21:59)
[2023-05-31] MEDS: INSULIN SLIDING SCALE (NOVOLOG) 1 VIAL SQ SCH ×3 (06:04→17:16)
[2023-05-31] MEDS: ISOSORBIDE MONONITRATE 60 MG TAB.SR.24H (FP) PO SCH (06:34)
[2023-05-31 08:15] LABS: HEMATOCRIT 26.8 % (32.4-45.2); HEMOGLOBIN 8.8 GM/dL (10.7-15.3); MCH 30.5 pg (25.7-33.7); MCHC 32.7 g/dl (32.0-36.0); MEAN CELL VOLUME 93.4 fl (80-96); MEAN PLT VOLUME 9.6 fl (7.5-11.1); PLATELET COUNT 192 10^3/uL (134-434); RBC 2.87 M/mm3 (3.60-5.2); RDW 13.4 % (11.6-15.6); WHITE BLOOD COUNT 4.7 K/mm3 (4.0-10.0)
[2023-05-31 08:33] LABS: POTASSIUM 3.2 mmol/L (3.5-5.1)
[2023-05-31 08:34] LABS: CALCIUM 9.2 mg/dL (8.5-10.1)
[2023-05-31 08:35] LABS: BLOOD UREA NITROGEN 31.3 mg/dL (7-18); MAGNESIUM 1.8 mg/dL (1.8-2.4)
[2023-05-31 08:38] LABS: CREATININE 2.3 mg/dL (0.55-1.3); PHOSPHOROUS 3.4 mg/dL (2.5-4.9)
[2023-05-31] MEDS ORDERED: LINZESS 290 MCG PO SCH (10:00)
[2023-05-31] MEDS: CLOPIDOGREL BISULFATE 75 MG TABLET (FP) PO SCH (10:47)
[2023-05-31] MEDS: hydrALAZINE HCL 10 MG TABLET PO SCH ×2 (10:47→21:49)
[2023-05-31] MEDS: TAMSULOSIN HCL 0.4 MG CAP PO SCH (10:47)
[2023-05-31] MEDS: LABETALOL HCL 200 MG TABLET (FP) PO SCH ×2 (10:47→21:49)
[2023-05-31] MEDS: PANTOPRAZOLE SOD 40 MG SUSPENSION PACKET PO SCH (10:48)
[2023-05-31] MEDS: BRIMONIDINE TARTRATE 0.2% OPHTHALMIC 5 ML BOTTLE OU SCH ×2 (10:48→21:54)
[2023-05-31] MEDS: APIXABAN 5 MG TABLET PO SCH ×2 (10:48→21:49)
[2023-05-31] MEDS ORDERED: POTASSIUM CHLORIDE ORAL LIQUID 20 MEQ/15 ML PO ONE (15:02)
[2023-05-31] MEDS ORDERED: LIDOCAINE 5% TOPICAL PATCH TP SCH (18:45)
[2023-05-31] MEDS: SULFAMETHOXAZOLE/TRIMETHOPRIM 400MG/80MG S.S. TABLET PO SCH (21:49)
[2023-05-31] MEDS: LIDOCAINE 5% TOPICAL PATCH TP SCH (21:50)
[2023-05-31] MEDS: LATANOPROST 0.005% OPHTH SOLN 2.5ML BOTTLE OU SCH (21:54)
[2023-05-31] MEDS: ALPRAZolam 1 MG TABLET PO PRN (21:56)
[2023-05-31] MEDS ORDERED: LIDOCAINE PATCH REMOVAL MC SCH (22:00)
[2023-05-31] MEDS ORDERED: SULFAMETHOXAZOLE 80 MG/TRIMETHOPRIM 16 MG/ML VIAL IVPB SCH (22:00)
[2023-06-01] MEDS ORDERED: INSULIN (NOVOLOG) ASPART 100 UNITS/ML 10ML VIAL ONE ×3 (06:44→16:45)
[2023-06-01] MEDS: INSULIN SLIDING SCALE (NOVOLOG) 1 VIAL SQ SCH ×3 (06:45→16:48)
[2023-06-01] MEDS: FUROSEMIDE 40 MG/4 ML INJECTABLE VIAL IVPUSH SCH ×2 (06:46→13:22)
[2023-06-01] MEDS: ISOSORBIDE MONONITRATE 60 MG TAB.SR.24H (FP) PO SCH (06:47)
[2023-06-01] MEDS: BETHANECHOL CHLORIDE 10 MG TABLET PO SCH ×3 (06:48→23:42)
[2023-06-01] MEDS ORDERED: PATIENT'S OWN MEDICATION (NON-FORMULARY) (Linaclotide [Linzess] 290 MCG Capsule) PO SCH (07:00)
[2023-06-01] MEDS: LINZESS 290 MCG PO SCH (07:33)
[2023-06-01] MEDS: PRUCALOPRIDE SUCCINATE 1 MG PO SCH ×2 (07:36→09:07)
[2023-06-01 08:48] LABS: HEMATOCRIT 26.9 % (32.4-45.2); HEMOGLOBIN 8.8 GM/dL (10.7-15.3); MCH 30.5 pg (25.7-33.7); MCHC 32.7 g/dl (32.0-36.0); MEAN CELL VOLUME 93.1 fl (80-96); MEAN PLT VOLUME 9.2 fl (7.5-11.1); PLATELET COUNT 209 10^3/uL (134-434); RBC 2.89 M/mm3 (3.60-5.2); RDW 13.9 % (11.6-15.6); WHITE BLOOD COUNT 4.7 K/mm3 (4.0-10.0)
[2023-06-01 09:05] LABS: POTASSIUM 3.2 mmol/L (3.5-5.1)
[2023-06-01] MEDS: ROSUVASTATIN CA 10 MG TABLET PO SCH (09:08)
[2023-06-01] MEDS: TAMSULOSIN HCL 0.4 MG CAP PO SCH (09:08)
[2023-06-01] MEDS: hydrALAZINE HCL 10 MG TABLET PO SCH ×2 (09:08→23:41)
[2023-06-01] MEDS: PANTOPRAZOLE SOD 40 MG SUSPENSION PACKET PO SCH (09:08)
[2023-06-01] MEDS: LABETALOL HCL 200 MG TABLET (FP) PO SCH ×2 (09:08→23:41)
[2023-06-01] MEDS: LIDOCAINE PATCH REMOVAL MC SCH (09:08)
[2023-06-01] MEDS: CLOPIDOGREL BISULFATE 75 MG TABLET (FP) PO SCH (09:08)
[2023-06-01] MEDS: APIXABAN 5 MG TABLET PO SCH ×2 (09:08→23:41)
[2023-06-01] MEDS: BRIMONIDINE TARTRATE 0.2% OPHTHALMIC 5 ML BOTTLE OU SCH ×2 (09:09→23:42)
[2023-06-01] MEDS: SULFAMETHOXAZOLE/TRIMETHOPRIM 400MG/80MG S.S. TABLET PO SCH ×2 (09:12→23:42)
[2023-06-01 09:15] LABS: BLOOD UREA NITROGEN 30.6 mg/dL (7-18); MAGNESIUM 1.7 mg/dL (1.8-2.4)
[2023-06-01 09:18] LABS: PHOSPHOROUS 3.1 mg/dL (2.5-4.9)
[2023-06-01 09:19] LABS: BILIRUBIN,TOTAL 0.4 mg/dL (0.2-1); TOT PROT 6.5 g/dl (6.4-8.2)
[2023-06-01] MEDS ORDERED: POTASSIUM CHLORIDE ORAL LIQUID 20 MEQ/15 ML PO ONE (09:23)
[2023-06-01 09:24] LABS: CREATININE 2.2 mg/dL (0.55-1.3)
[2023-06-01] MEDS ORDERED: PRUCALOPRIDE SUCCINATE 1 MG PO SCH (10:00)
[2023-06-01] MEDS ORDERED: MAGNESIUM SULF 50% (8.12 MEQ/2 ML-1 GM VIAL) IVPB ONE (11:07)
[2023-06-01] MEDS: METOLAZONE 2.5 MG TABLET (FP) PO SCH (13:51)
[2023-06-01] MEDS ORDERED: POTASSIUM CHLORIDE TABS 20 MEQ TABLET.ER (FP) PO ONE (15:14)
[2023-06-01] MEDS: LATANOPROST 0.005% OPHTH SOLN 2.5ML BOTTLE OU SCH (23:42)
[2023-06-01] MEDS: LIDOCAINE 5% TOPICAL PATCH TP SCH (23:42)
[2023-06-01] MEDS: ALPRAZolam 1 MG TABLET PO PRN (23:44)
[2023-06-02] MEDS: BETHANECHOL CHLORIDE 10 MG TABLET PO SCH ×3 (07:21→21:42)
[2023-06-02] MEDS: FUROSEMIDE 40 MG/4 ML INJECTABLE VIAL IVPUSH SCH ×2 (07:21→14:16)
[2023-06-02] MEDS: ISOSORBIDE MONONITRATE 60 MG TAB.SR.24H (FP) PO SCH (07:22)
[2023-06-02] MEDS: INSULIN SLIDING SCALE (NOVOLOG) 1 VIAL SQ SCH ×3 (07:22→17:09)
[2023-06-02] MEDS: LINZESS 290 MCG PO SCH (07:23)
[2023-06-02] MEDS ORDERED: ALBUTEROL SO4 2.5/IPRATROPIUM 0.5 INH SOL 3 ML VIAL.NEB. NEB ONE (09:00)
[2023-06-02 09:13] LABS: HEMATOCRIT 27.8 % (32.4-45.2); HEMOGLOBIN 9.3 GM/dL (10.7-15.3); MCH 30.2 pg (25.7-33.7); MCHC 33.3 g/dl (32.0-36.0); MEAN CELL VOLUME 90.5 fl (80-96); MEAN PLT VOLUME 9.1 fl (7.5-11.1); PLATELET COUNT 206 10^3/uL (134-434); RBC 3.07 M/mm3 (3.60-5.2); RDW 13.9 % (11.6-15.6); WHITE BLOOD COUNT 5.5 K/mm3 (4.0-10.0)
[2023-06-02 09:29] LABS: POTASSIUM 3.4 mmol/L (3.5-5.1)
[2023-06-02 09:42] LABS: BILIRUBIN,TOTAL 0.3 mg/dL (0.2-1); TOT PROT 6.8 g/dl (6.4-8.2)
[2023-06-02 09:44] LABS: ALBUMIN 3.2 g/dl (3.4-5.0)
[2023-06-02 09:46] LABS: PHOSPHOROUS 3.2 mg/dL (2.5-4.9)
[2023-06-02 09:47] LABS: CREATININE 2.2 mg/dL (0.55-1.3)
[2023-06-02 09:53] LABS: BLOOD UREA NITROGEN 30.8 mg/dL (7-18)
[2023-06-02 09:54] LABS: CALCIUM 9.3 mg/dL (8.5-10.1)
[2023-06-02 09:56] LABS: MAGNESIUM 2.3 mg/dL (1.8-2.4)
[2023-06-02] MEDS: LABETALOL HCL 200 MG TABLET (FP) PO SCH ×2 (10:31→21:43)
[2023-06-02] MEDS: hydrALAZINE HCL 10 MG TABLET PO SCH ×2 (10:31→21:44)
[2023-06-02] MEDS: TAMSULOSIN HCL 0.4 MG CAP PO SCH (10:31)
[2023-06-02] MEDS: APIXABAN 5 MG TABLET PO SCH ×2 (10:33→21:45)
[2023-06-02] MEDS: BRIMONIDINE TARTRATE 0.2% OPHTHALMIC 5 ML BOTTLE OU SCH ×2 (10:33→21:45)
[2023-06-02] MEDS: CLOPIDOGREL BISULFATE 75 MG TABLET (FP) PO SCH (10:33)
[2023-06-02] MEDS: ROSUVASTATIN CA 10 MG TABLET PO SCH (10:33)
[2023-06-02] MEDS: PANTOPRAZOLE SOD 40 MG SUSPENSION PACKET PO SCH (10:33)
[2023-06-02] MEDS: LIDOCAINE PATCH REMOVAL MC SCH (10:34)
[2023-06-02] MEDS: MAG HYDROX/AL HYDROX/SIMETH 30 ML UNIT-DOSE CUP PO SCH ×2 (10:34→17:10)
[2023-06-02] MEDS: PRUCALOPRIDE SUCCINATE 1 MG PO SCH (10:36)
[2023-06-02] MEDS: SULFAMETHOXAZOLE/TRIMETHOPRIM 400MG/80MG S.S. TABLET PO SCH ×2 (10:36→21:46)
[2023-06-02] MEDS ORDERED: POTASSIUM CHLORIDE TABS 20 MEQ TABLET.ER (FP) PO ONE (11:15)
[2023-06-02] MEDS ORDERED: INSULIN (NOVOLOG) ASPART 100 UNITS/ML 10ML VIAL ONE ×3 (11:52→21:57)
[2023-06-02] MEDS: SPIRONOLACTONE 25 MG TABLET PO SCH (11:54)
[2023-06-02] MEDS: SIMETHICONE 80 MG TAB.CHEW (FP) PO SCH ×2 (17:10→21:45)
[2023-06-02] MEDS: LIPASE/PROTEASE/AMYLASE 36,000 UNIT CAPSULE PO SCH (17:10)
[2023-06-02] MEDS: RIFAXIMIN 550 MG TABLET PO SCH (21:44)
[2023-06-02] MEDS: LIDOCAINE 5% TOPICAL PATCH TP SCH (21:45)
[2023-06-02] MEDS: LATANOPROST 0.005% OPHTH SOLN 2.5ML BOTTLE OU SCH (21:46)
[2023-06-02] MEDS: ALPRAZolam 1 MG TABLET PO PRN (21:47)
[2023-06-03] MEDS: BETHANECHOL CHLORIDE 10 MG TABLET PO SCH ×3 (06:10→21:26)
[2023-06-03] MEDS: RIFAXIMIN 550 MG TABLET PO SCH ×3 (06:10→21:26)
[2023-06-03] MEDS: ISOSORBIDE MONONITRATE 60 MG TAB.SR.24H (FP) PO SCH (06:11)
[2023-06-03] MEDS: MAG HYDROX/AL HYDROX/SIMETH 30 ML UNIT-DOSE CUP PO SCH ×3 (06:11→17:31)
[2023-06-03] MEDS: FUROSEMIDE 40 MG/4 ML INJECTABLE VIAL IVPUSH SCH ×2 (06:11→14:21)
[2023-06-03] MEDS: INSULIN SLIDING SCALE (NOVOLOG) 1 VIAL SQ SCH ×3 (06:11→17:30)
[2023-06-03] MEDS: LINZESS 290 MCG PO SCH (06:34)
[2023-06-03 07:09] LABS: HEMATOCRIT 27.7 % (32.4-45.2); HEMOGLOBIN 9.1 GM/dL (10.7-15.3); MCH 30.4 pg (25.7-33.7); MCHC 32.8 g/dl (32.0-36.0); MEAN CELL VOLUME 92.7 fl (80-96); PLATELET COUNT 215 10^3/uL (134-434); RBC 2.99 M/mm3 (3.60-5.2); WHITE BLOOD COUNT 5.1 K/mm3 (4.0-10.0)
[2023-06-03 07:41] LABS: ALBUMIN 3.3 g/dl (3.4-5.0); BILIRUBIN,TOTAL 0.2 mg/dL (0.2-1); BLOOD UREA NITROGEN 32.7 mg/dL (7-18); CALCIUM 9.1 mg/dL (8.5-10.1); CREATININE 2.4 mg/dL (0.55-1.3); MAGNESIUM 2.1 mg/dL (1.8-2.4); PHOSPHOROUS 3.2 mg/dL (2.5-4.9); POTASSIUM 3.4 mmol/L (3.5-5.1); TOT PROT 6.8 g/dl (6.4-8.2)
[2023-06-03] MEDS: TAMSULOSIN HCL 0.4 MG CAP PO SCH (09:02)
[2023-06-03] MEDS: hydrALAZINE HCL 10 MG TABLET PO SCH ×2 (09:02→21:24)
[2023-06-03] MEDS: ROSUVASTATIN CA 10 MG TABLET PO SCH (09:02)
[2023-06-03] MEDS: SPIRONOLACTONE 25 MG TABLET PO SCH (09:02)
[2023-06-03] MEDS: LABETALOL HCL 200 MG TABLET (FP) PO SCH ×2 (09:02→21:24)
[2023-06-03] MEDS: SIMETHICONE 80 MG TAB.CHEW (FP) PO SCH ×4 (09:02→21:25)
[2023-06-03] MEDS: PANTOPRAZOLE SOD 40 MG SUSPENSION PACKET PO SCH (09:02)
[2023-06-03] MEDS: APIXABAN 5 MG TABLET PO SCH ×2 (09:02→21:24)
[2023-06-03] MEDS: CLOPIDOGREL BISULFATE 75 MG TABLET (FP) PO SCH (09:02)
[2023-06-03] MEDS: SULFAMETHOXAZOLE/TRIMETHOPRIM 400MG/80MG S.S. TABLET PO SCH (09:03)
[2023-06-03] MEDS: LIPASE/PROTEASE/AMYLASE 36,000 UNIT CAPSULE PO SCH ×3 (09:03→17:28)
[2023-06-03] MEDS: PRUCALOPRIDE SUCCINATE 1 MG PO SCH (09:05)
[2023-06-03] MEDS: BRIMONIDINE TARTRATE 0.2% OPHTHALMIC 5 ML BOTTLE OU SCH ×2 (09:31→21:25)
[2023-06-03] MEDS: LIDOCAINE PATCH REMOVAL MC SCH (09:32)
[2023-06-03] MEDS ORDERED: INSULIN (NOVOLOG) ASPART 100 UNITS/ML 10ML VIAL ONE ×2 (11:48→17:18)
[2023-06-03] MEDS ORDERED: TRIMETHOBENZAMIDE HCL 200MG/2ML INJ IM ONE (12:22)
[2023-06-03] MEDS: METOLAZONE 2.5 MG TABLET (FP) PO SCH (13:03)
[2023-06-03] MEDS ORDERED: MAG HYDROX/AL HYDROX/SIMETH 30 ML UNIT-DOSE CUP PO ONE (15:41)
[2023-06-03] MEDS: POLYETHYLENE GLYCOL (HEALTHYLAX) 3350 17 GM PACKET PO SCH ×2 (16:36→21:24)
[2023-06-03] MEDS: LIDOCAINE 5% TOPICAL PATCH TP SCH (21:24)
[2023-06-03] MEDS: LATANOPROST 0.005% OPHTH SOLN 2.5ML BOTTLE OU SCH (21:26)
[2023-06-04] MEDS: FUROSEMIDE 40 MG/4 ML INJECTABLE VIAL IVPUSH SCH (05:14)
[2023-06-04] MEDS: BETHANECHOL CHLORIDE 10 MG TABLET PO SCH ×2 (05:14→23:12)
[2023-06-04] MEDS: RIFAXIMIN 550 MG TABLET PO SCH ×2 (05:14→23:15)
[2023-06-04] MEDS: INSULIN SLIDING SCALE (NOVOLOG) 1 VIAL SQ SCH ×3 (06:25→18:08)
[2023-06-04] MEDS: ISOSORBIDE MONONITRATE 60 MG TAB.SR.24H (FP) PO SCH (06:25)
[2023-06-04] MEDS: MAG HYDROX/AL HYDROX/SIMETH 30 ML UNIT-DOSE CUP PO SCH ×3 (06:25→18:20)
[2023-06-04] MEDS: LINZESS 290 MCG PO SCH (06:31)
[2023-06-04 08:13] LABS: HEMATOCRIT 28.1 % (32.4-45.2); HEMOGLOBIN 9.2 GM/dL (10.7-15.3); MCH 30.4 pg (25.7-33.7); MCHC 32.8 g/dl (32.0-36.0); MEAN CELL VOLUME 92.5 fl (80-96); MEAN PLT VOLUME 9.4 fl (7.5-11.1); PLATELET COUNT 237 10^3/uL (134-434); RBC 3.04 M/mm3 (3.60-5.2); RDW 13.5 % (11.6-15.6); WHITE BLOOD COUNT 5.8 K/mm3 (4.0-10.0)
[2023-06-04 08:24] LABS: POTASSIUM 3.3 mmol/L (3.5-5.1)
[2023-06-04 08:37] LABS: CALCIUM 9.2 mg/dL (8.5-10.1)
[2023-06-04 08:38] LABS: ALBUMIN 3.3 g/dl (3.4-5.0); BLOOD UREA NITROGEN 37.1 mg/dL (7-18); MAGNESIUM 2.2 mg/dL (1.8-2.4)
[2023-06-04 08:40] LABS: PHOSPHOROUS 3.1 mg/dL (2.5-4.9)
[2023-06-04 08:41] LABS: BILIRUBIN,TOTAL 0.3 mg/dL (0.2-1); CREATININE 2.8 mg/dL (0.55-1.3); TOT PROT 6.8 g/dl (6.4-8.2)
[2023-06-04] MEDS: TAMSULOSIN HCL 0.4 MG CAP PO SCH (09:04)
[2023-06-04] MEDS: LIPASE/PROTEASE/AMYLASE 36,000 UNIT CAPSULE PO SCH ×2 (09:05→18:22)
[2023-06-04] MEDS ORDERED: POTASSIUM CHLORIDE ORAL LIQUID 20 MEQ/15 ML PO ONE (09:36)
[2023-06-04] MEDS: LABETALOL HCL 200 MG TABLET (FP) PO SCH ×2 (09:46→23:12)
[2023-06-04] MEDS: hydrALAZINE HCL 10 MG TABLET PO SCH ×2 (09:47→23:10)
[2023-06-04] MEDS: SPIRONOLACTONE 25 MG TABLET PO SCH (09:47)
[2023-06-04] MEDS: ROSUVASTATIN CA 10 MG TABLET PO SCH (09:47)
[2023-06-04] MEDS: CLOPIDOGREL BISULFATE 75 MG TABLET (FP) PO SCH (09:47)
[2023-06-04] MEDS: APIXABAN 5 MG TABLET PO SCH ×2 (09:47→23:10)
[2023-06-04] MEDS: SIMETHICONE 80 MG TAB.CHEW (FP) PO SCH ×3 (09:47→23:11)
[2023-06-04] MEDS: POLYETHYLENE GLYCOL (HEALTHYLAX) 3350 17 GM PACKET PO SCH ×2 (09:48→23:11)
[2023-06-04] MEDS: PANTOPRAZOLE SOD 40 MG SUSPENSION PACKET PO SCH (09:48)
[2023-06-04] MEDS: LIDOCAINE PATCH REMOVAL MC SCH (09:52)
[2023-06-04] MEDS: PRUCALOPRIDE SUCCINATE 1 MG PO SCH (09:52)
[2023-06-04] MEDS: BRIMONIDINE TARTRATE 0.2% OPHTHALMIC 5 ML BOTTLE OU SCH ×2 (09:52→23:09)
[2023-06-04] MEDS ORDERED: ALPRAZolam 1 MG TABLET PO PRN (14:59)
[2023-06-04] MEDS ORDERED: ACETAMINOPHEN 500 MG TABLET (FP) PO PRN (14:59)
[2023-06-04] MEDS ORDERED: POLYETHYLENE GLYCOL 3350 255 GM BTL PO ONE (15:00)
[2023-06-04] MEDS: LIDOCAINE 5% TOPICAL PATCH TP SCH (23:08)
[2023-06-04] MEDS: LATANOPROST 0.005% OPHTH SOLN 2.5ML BOTTLE OU SCH (23:14)
[2023-06-05] MEDS: RIFAXIMIN 550 MG TABLET PO SCH ×3 (05:55→22:23)
[2023-06-05] MEDS: BETHANECHOL CHLORIDE 10 MG TABLET PO SCH ×4 (05:55→22:22)
[2023-06-05] MEDS ORDERED: FUROSEMIDE 40 MG/4 ML INJECTABLE VIAL IVPUSH SCH (06:00)
[2023-06-05] MEDS: INSULIN SLIDING SCALE (NOVOLOG) 1 VIAL SQ SCH ×3 (06:10→17:01)
[2023-06-05] MEDS: ISOSORBIDE MONONITRATE 60 MG TAB.SR.24H (FP) PO SCH (06:11)
[2023-06-05] MEDS: MAG HYDROX/AL HYDROX/SIMETH 30 ML UNIT-DOSE CUP PO SCH ×3 (06:11→17:01)
[2023-06-05] MEDS: TAMSULOSIN HCL 0.4 MG CAP PO SCH (08:45)
[2023-06-05] MEDS: LIPASE/PROTEASE/AMYLASE 36,000 UNIT CAPSULE PO SCH ×3 (08:45→17:02)
[2023-06-05 08:50] LABS: HEMATOCRIT 28.8 % (32.4-45.2); HEMOGLOBIN 9.4 GM/dL (10.7-15.3); MCH 30.2 pg (25.7-33.7); MCHC 32.8 g/dl (32.0-36.0); MEAN CELL VOLUME 92.1 fl (80-96); MEAN PLT VOLUME 8.9 fl (7.5-11.1); PLATELET COUNT 246 10^3/uL (134-434); RBC 3.13 M/mm3 (3.60-5.2); RDW 13.5 % (11.6-15.6); WHITE BLOOD COUNT 5.6 K/mm3 (4.0-10.0)
[2023-06-05 09:12] LABS: POTASSIUM 3.5 mmol/L (3.5-5.1)
[2023-06-05 09:14] LABS: CALCIUM 9.9 mg/dL (8.5-10.1)
[2023-06-05 09:15] LABS: ALBUMIN 3.3 g/dl (3.4-5.0); BLOOD UREA NITROGEN 40.6 mg/dL (7-18); MAGNESIUM 2.5 mg/dL (1.8-2.4)
[2023-06-05 09:18] LABS: CREATININE 2.8 mg/dL (0.55-1.3); PHOSPHOROUS 2.8 mg/dL (2.5-4.9)
[2023-06-05 09:19] LABS: BILIRUBIN,TOTAL 0.4 mg/dL (0.2-1)
[2023-06-05] MEDS: hydrALAZINE HCL 10 MG TABLET PO SCH ×2 (10:13→22:22)
[2023-06-05] MEDS: LABETALOL HCL 200 MG TABLET (FP) PO SCH ×2 (10:13→22:23)
[2023-06-05] MEDS: PANTOPRAZOLE SOD 40 MG SUSPENSION PACKET PO SCH (10:13)
[2023-06-05] MEDS: SIMETHICONE 80 MG TAB.CHEW (FP) PO SCH ×4 (10:13→22:22)
[2023-06-05] MEDS: SPIRONOLACTONE 25 MG TABLET PO SCH (10:13)
[2023-06-05] MEDS: CLOPIDOGREL BISULFATE 75 MG TABLET (FP) PO SCH (10:13)
[2023-06-05] MEDS: APIXABAN 5 MG TABLET PO SCH ×2 (10:14→22:23)
[2023-06-05] MEDS: PRUCALOPRIDE SUCCINATE 1 MG PO SCH ×2 (10:16→10:52)
[2023-06-05] MEDS: METOCLOPRAMIDE HCL 10 MG TABLET (FP) PO SCH ×2 (10:18→17:01)
[2023-06-05] MEDS: POLYETHYLENE GLYCOL (HEALTHYLAX) 3350 17 GM PACKET PO SCH ×2 (10:20→22:21)
[2023-06-05] MEDS: LIDOCAINE PATCH REMOVAL MC SCH (10:26)
[2023-06-05] MEDS: BRIMONIDINE TARTRATE 0.2% OPHTHALMIC 5 ML BOTTLE OU SCH ×2 (10:27→22:20)
[2023-06-05] MEDS ORDERED: INSULIN SLIDING SCALE (NOVOLOG) 1 VIAL SQ ONE (11:22)
[2023-06-05] MEDS: ROSUVASTATIN CA 10 MG TABLET PO SCH (12:16)
[2023-06-05] MEDS: METOLAZONE 2.5 MG TABLET (FP) PO SCH (14:15)
[2023-06-05] MEDS: FOLIC ACID 1 MG TABLET (FP) PO SCH (17:01)
[2023-06-05] MEDS: ASCORBIC ACID 500 MG TABLET (FP) PO SCH (17:01)
[2023-06-05] MEDS: FERROUS SO4 325 MG TABLET (FP) PO SCH (17:01)
[2023-06-05] MEDS: LIDOCAINE 5% TOPICAL PATCH TP SCH (22:18)
[2023-06-05] MEDS: LATANOPROST 0.005% OPHTH SOLN 2.5ML BOTTLE OU SCH (22:21)
[2023-06-05] MEDS: TORSEMIDE 100 MG TABLET PO SCH (22:23)
[2023-06-06] MEDS: RIFAXIMIN 550 MG TABLET PO SCH ×3 (07:00→21:19)
[2023-06-06] MEDS: BETHANECHOL CHLORIDE 10 MG TABLET PO SCH ×3 (07:00→21:12)
[2023-06-06] MEDS: INSULIN SLIDING SCALE (NOVOLOG) 1 VIAL SQ SCH ×3 (07:00→17:31)
[2023-06-06] MEDS: ISOSORBIDE MONONITRATE 60 MG TAB.SR.24H (FP) PO SCH (07:01)
[2023-06-06] MEDS: METOCLOPRAMIDE HCL 10 MG TABLET (FP) PO SCH ×3 (07:01→18:18)
[2023-06-06] MEDS: MAG HYDROX/AL HYDROX/SIMETH 30 ML UNIT-DOSE CUP PO SCH ×3 (07:17→18:17)
[2023-06-06 09:51] LABS: POTASSIUM 3.4 mmol/L (3.5-5.1)
[2023-06-06 09:53] LABS: CALCIUM 9.7 mg/dL (8.5-10.1)
[2023-06-06 09:54] LABS: BLOOD UREA NITROGEN 34.7 mg/dL (7-18)
[2023-06-06 09:57] LABS: CREATININE 2.9 mg/dL (0.55-1.3)
[2023-06-06] MEDS: POLYETHYLENE GLYCOL (HEALTHYLAX) 3350 17 GM PACKET PO SCH ×2 (10:46→21:10)
[2023-06-06] MEDS: PANTOPRAZOLE SOD 40 MG SUSPENSION PACKET PO SCH (10:55)
[2023-06-06] MEDS: ROSUVASTATIN CA 10 MG TABLET PO SCH (10:56)
[2023-06-06] MEDS: APIXABAN 5 MG TABLET PO SCH ×2 (10:57→21:10)
[2023-06-06] MEDS: LABETALOL HCL 200 MG TABLET (FP) PO SCH ×2 (10:57→21:12)
[2023-06-06] MEDS: TAMSULOSIN HCL 0.4 MG CAP PO SCH (10:58)
[2023-06-06] MEDS: CLOPIDOGREL BISULFATE 75 MG TABLET (FP) PO SCH (10:58)
[2023-06-06] MEDS: hydrALAZINE HCL 50 MG TABLET (FP) PO SCH ×2 (10:58→21:06)
[2023-06-06] MEDS: FERROUS SO4 325 MG TABLET (FP) PO SCH ×3 (10:58→18:20)
[2023-06-06] MEDS: SIMETHICONE 80 MG TAB.CHEW (FP) PO SCH ×4 (10:59→21:11)
[2023-06-06] MEDS: SPIRONOLACTONE 25 MG TABLET PO SCH (10:59)
[2023-06-06] MEDS: ASCORBIC ACID 500 MG TABLET (FP) PO SCH (10:59)
[2023-06-06] MEDS: LIPASE/PROTEASE/AMYLASE 36,000 UNIT CAPSULE PO SCH ×3 (11:09→18:20)
[2023-06-06] MEDS: FOLIC ACID 1 MG TABLET (FP) PO SCH (11:09)
[2023-06-06] MEDS: TORSEMIDE 100 MG TABLET PO SCH ×2 (11:10→21:07)
[2023-06-06] MEDS: LIDOCAINE PATCH REMOVAL MC SCH (11:10)
[2023-06-06] MEDS: PRUCALOPRIDE SUCCINATE 1 MG PO SCH (11:11)
[2023-06-06] MEDS: BRIMONIDINE TARTRATE 0.2% OPHTHALMIC 5 ML BOTTLE OU SCH ×2 (11:13→21:06)
[2023-06-06] MEDS: LIDOCAINE 5% TOPICAL PATCH TP SCH (21:10)
[2023-06-06] MEDS: LATANOPROST 0.005% OPHTH SOLN 2.5ML BOTTLE OU SCH (21:15)
[2023-06-07] MEDS: ISOSORBIDE MONONITRATE 60 MG TAB.SR.24H (FP) PO SCH (06:27)
[2023-06-07] MEDS: BETHANECHOL CHLORIDE 10 MG TABLET PO SCH ×3 (06:27→21:13)
[2023-06-07] MEDS: RIFAXIMIN 550 MG TABLET PO SCH ×3 (06:27→21:12)
[2023-06-07] MEDS: MAG HYDROX/AL HYDROX/SIMETH 30 ML UNIT-DOSE CUP PO SCH ×3 (06:27→17:04)
[2023-06-07] MEDS: METOCLOPRAMIDE HCL 10 MG TABLET (FP) PO SCH ×3 (06:28→17:10)
[2023-06-07] MEDS: INSULIN SLIDING SCALE (NOVOLOG) 1 VIAL SQ SCH ×3 (06:32→17:04)
[2023-06-07] MEDS: TAMSULOSIN HCL 0.4 MG CAP PO SCH (08:50)
[2023-06-07] MEDS: FERROUS SO4 325 MG TABLET (FP) PO SCH ×2 (08:50→17:12)
[2023-06-07] MEDS: LIPASE/PROTEASE/AMYLASE 36,000 UNIT CAPSULE PO SCH ×3 (08:51→17:05)
[2023-06-07] MEDS: POLYETHYLENE GLYCOL (HEALTHYLAX) 3350 17 GM PACKET PO SCH ×3 (10:24→21:22)
[2023-06-07] MEDS: SIMETHICONE 80 MG TAB.CHEW (FP) PO SCH ×4 (10:24→21:12)
[2023-06-07] MEDS: hydrALAZINE HCL 50 MG TABLET (FP) PO SCH ×2 (10:24→21:11)
[2023-06-07] MEDS: CLOPIDOGREL BISULFATE 75 MG TABLET (FP) PO SCH (10:24)
[2023-06-07] MEDS: ASCORBIC ACID 500 MG TABLET (FP) PO SCH (10:24)
[2023-06-07] MEDS: FOLIC ACID 1 MG TABLET (FP) PO SCH (10:24)
[2023-06-07] MEDS: LABETALOL HCL 200 MG TABLET (FP) PO SCH ×2 (10:24→21:11)
[2023-06-07] MEDS: PANTOPRAZOLE SOD 40 MG SUSPENSION PACKET PO SCH (10:24)
[2023-06-07] MEDS: APIXABAN 5 MG TABLET PO SCH ×2 (10:25→21:12)
[2023-06-07] MEDS: ROSUVASTATIN CA 10 MG TABLET PO SCH (10:25)
[2023-06-07] MEDS: SPIRONOLACTONE 25 MG TABLET PO SCH (10:25)
[2023-06-07] MEDS: TORSEMIDE 100 MG TABLET PO SCH ×2 (10:27→21:12)
[2023-06-07 10:37] LABS: BASO % 0.4 % (0-2.0); EOS % 0.7 % (0-4.5); HEMATOCRIT 31.6 % (32.4-45.2); HEMOGLOBIN 10.5 GM/dL (10.7-15.3); LYMPH % 22.3 % (8-40); MCH 30.3 pg (25.7-33.7); MCHC 33.1 g/dl (32.0-36.0); MEAN CELL VOLUME 91.4 fl (80-96); MEAN PLT VOLUME 9.3 fl (7.5-11.1); MONO % 8.4 % (3.8-10.2); NEUT % 68.2 % (42.8-82.8); PLATELET COUNT 288 10^3/uL (134-434); RBC 3.46 M/mm3 (3.60-5.2); RDW 13.6 % (11.6-15.6); WHITE BLOOD COUNT 7.9 K/mm3 (4.0-10.0)
[2023-06-07] MEDS: BRIMONIDINE TARTRATE 0.2% OPHTHALMIC 5 ML BOTTLE OU SCH ×2 (10:41→21:12)
[2023-06-07] MEDS: LIDOCAINE PATCH REMOVAL MC SCH (10:41)
[2023-06-07] MEDS: PRUCALOPRIDE SUCCINATE 1 MG PO SCH (10:43)
[2023-06-07 11:08] LABS: POTASSIUM 3.5 mmol/L (3.5-5.1)
[2023-06-07 11:21] LABS: ALBUMIN 3.6 g/dl (3.4-5.0); CALCIUM 10.1 mg/dL (8.5-10.1)
[2023-06-07 11:22] LABS: BLOOD UREA NITROGEN 42.9 mg/dL (7-18)
[2023-06-07 11:24] LABS: CREATININE 2.9 mg/dL (0.55-1.3); TOT PROT 7.5 g/dl (6.4-8.2)
[2023-06-07 11:25] LABS: BILIRUBIN,TOTAL 0.4 mg/dL (0.2-1)
[2023-06-07] MEDS: METOLAZONE 2.5 MG TABLET (FP) PO SCH (15:26)
[2023-06-07] MEDS: LIDOCAINE 5% TOPICAL PATCH TP SCH (21:13)
[2023-06-07] MEDS: LATANOPROST 0.005% OPHTH SOLN 2.5ML BOTTLE OU SCH (21:14)
[2023-06-08] MEDS: RIFAXIMIN 550 MG TABLET PO SCH ×3 (06:00→22:02)
[2023-06-08] MEDS: ISOSORBIDE MONONITRATE 60 MG TAB.SR.24H (FP) PO SCH (06:00)
[2023-06-08] MEDS: INSULIN SLIDING SCALE (NOVOLOG) 1 VIAL SQ SCH ×3 (06:00→16:48)
[2023-06-08] MEDS: METOCLOPRAMIDE HCL 10 MG TABLET (FP) PO SCH ×3 (06:00→16:49)
[2023-06-08] MEDS: MAG HYDROX/AL HYDROX/SIMETH 30 ML UNIT-DOSE CUP PO SCH ×3 (06:01→16:49)
[2023-06-08] MEDS: BETHANECHOL CHLORIDE 10 MG TABLET PO SCH ×3 (06:01→22:21)
[2023-06-08 09:14] LABS: POTASSIUM 3.3 mmol/L (3.5-5.1)
[2023-06-08 09:15] LABS: CALCIUM 9.8 mg/dL (8.5-10.1)
[2023-06-08 09:16] LABS: BLOOD UREA NITROGEN 56.3 mg/dL (7-18)
[2023-06-08 09:17] LABS: MAGNESIUM 2.3 mg/dL (1.8-2.4)
[2023-06-08 09:19] LABS: CREATININE 3.3 mg/dL (0.55-1.3); PHOSPHOROUS 3.2 mg/dL (2.5-4.9)
[2023-06-08] MEDS: hydrALAZINE HCL 50 MG TABLET (FP) PO SCH ×2 (10:27→21:55)
[2023-06-08] MEDS: POLYETHYLENE GLYCOL (HEALTHYLAX) 3350 17 GM PACKET PO SCH ×2 (10:27→21:58)
[2023-06-08] MEDS: LABETALOL HCL 200 MG TABLET (FP) PO SCH ×2 (10:27→22:00)
[2023-06-08] MEDS: TAMSULOSIN HCL 0.4 MG CAP PO SCH (10:27)
[2023-06-08] MEDS: CLOPIDOGREL BISULFATE 75 MG TABLET (FP) PO SCH (10:27)
[2023-06-08] MEDS: ASCORBIC ACID 500 MG TABLET (FP) PO SCH (10:27)
[2023-06-08] MEDS: PANTOPRAZOLE SOD 40 MG SUSPENSION PACKET PO SCH (10:27)
[2023-06-08] MEDS: FOLIC ACID 1 MG TABLET (FP) PO SCH (10:28)
[2023-06-08] MEDS: SIMETHICONE 80 MG TAB.CHEW (FP) PO SCH ×4 (10:28→22:00)
[2023-06-08] MEDS: ROSUVASTATIN CA 10 MG TABLET PO SCH (10:28)
[2023-06-08] MEDS: SPIRONOLACTONE 25 MG TABLET PO SCH (10:28)
[2023-06-08] MEDS: APIXABAN 5 MG TABLET PO SCH ×2 (10:28→21:58)
[2023-06-08] MEDS: FERROUS SO4 325 MG TABLET (FP) PO SCH (10:28)
[2023-06-08] MEDS: LIPASE/PROTEASE/AMYLASE 36,000 UNIT CAPSULE PO SCH ×3 (10:28→17:44)
[2023-06-08] MEDS: BRIMONIDINE TARTRATE 0.2% OPHTHALMIC 5 ML BOTTLE OU SCH ×2 (10:30→21:55)
[2023-06-08] MEDS: PRUCALOPRIDE SUCCINATE 1 MG PO SCH (10:32)
[2023-06-08] MEDS: LIDOCAINE PATCH REMOVAL MC SCH (10:38)
[2023-06-08] MEDS: TORSEMIDE 100 MG TABLET PO SCH ×2 (10:38→21:57)
[2023-06-08] MEDS: KCL 10 MEQ IVPB 10 MEQ/100 ML INFUS.BAG IVPB SCH ×2 (11:28→13:47)
[2023-06-08] MEDS: INSULIN (NOVOLOG) ASPART 100 UNITS/ML 10ML VIAL SQ SCH (16:47)
[2023-06-08] MEDS: INSULIN (LEVEMIR) 100 UNITS/ML UNITS SQ SCH (21:58)
[2023-06-08] MEDS: LIDOCAINE 5% TOPICAL PATCH TP SCH (21:59)
[2023-06-08] MEDS: LATANOPROST 0.005% OPHTH SOLN 2.5ML BOTTLE OU SCH (22:04)
[2023-06-09] MEDS: BETHANECHOL CHLORIDE 10 MG TABLET PO SCH (05:52)
[2023-06-09] MEDS: RIFAXIMIN 550 MG TABLET PO SCH (05:52)
[2023-06-09] MEDS: ISOSORBIDE MONONITRATE 60 MG TAB.SR.24H (FP) PO SCH (06:02)
[2023-06-09] MEDS: METOCLOPRAMIDE HCL 10 MG TABLET (FP) PO SCH (06:02)
[2023-06-09] MEDS: MAG HYDROX/AL HYDROX/SIMETH 30 ML UNIT-DOSE CUP PO SCH (06:03)
[2023-06-09] MEDS: INSULIN (LEVEMIR) 100 UNITS/ML UNITS SQ SCH (06:03)
[2023-06-09] MEDS: INSULIN (NOVOLOG) ASPART 100 UNITS/ML 10ML VIAL SQ SCH (06:03)
[2023-06-09] MEDS: INSULIN SLIDING SCALE (NOVOLOG) 1 VIAL SQ SCH (06:04)
[2023-06-09 06:39] VITALS: PULSE 68; RESP 18
[2023-06-09 09:17] VITALS: BP 139/46; TEMP 98.3
[2023-06-09] MEDS: CLOPIDOGREL BISULFATE 75 MG TABLET (FP) PO SCH (09:43)
[2023-06-09] MEDS: TAMSULOSIN HCL 0.4 MG CAP PO SCH (09:43)
[2023-06-09] MEDS: SIMETHICONE 80 MG TAB.CHEW (FP) PO SCH (09:43)
[2023-06-09] MEDS: ASCORBIC ACID 500 MG TABLET (FP) PO SCH (09:43)
[2023-06-09] MEDS: APIXABAN 5 MG TABLET PO SCH (09:44)
[2023-06-09] MEDS: PANTOPRAZOLE SOD 40 MG SUSPENSION PACKET PO SCH (09:44)
[2023-06-09] MEDS: LABETALOL HCL 200 MG TABLET (FP) PO SCH (09:44)
[2023-06-09] MEDS: FERROUS SO4 325 MG TABLET (FP) PO SCH (09:44)
[2023-06-09] MEDS: SPIRONOLACTONE 25 MG TABLET PO SCH (09:44)
[2023-06-09] MEDS: ROSUVASTATIN CA 10 MG TABLET PO SCH (09:44)
[2023-06-09] MEDS: hydrALAZINE HCL 50 MG TABLET (FP) PO SCH (09:44)
[2023-06-09] MEDS: FOLIC ACID 1 MG TABLET (FP) PO SCH (09:44)
[2023-06-09] MEDS: POLYETHYLENE GLYCOL (HEALTHYLAX) 3350 17 GM PACKET PO SCH (09:45)
[2023-06-09] MEDS: BRIMONIDINE TARTRATE 0.2% OPHTHALMIC 5 ML BOTTLE OU SCH (09:47)
[2023-06-09] MEDS: LIPASE/PROTEASE/AMYLASE 36,000 UNIT CAPSULE PO SCH (09:47)
[2023-06-09] MEDS: PRUCALOPRIDE SUCCINATE 1 MG PO SCH (09:48)
[2023-06-09] MEDS: TORSEMIDE 100 MG TABLET PO SCH (09:48)
[2023-06-09] MEDS: LIDOCAINE PATCH REMOVAL MC SCH (10:01)
[2023-06-09 11:45] LABS: POTASSIUM 3.4 mmol/L (3.5-5.1)
[2023-06-09 12:09] LABS: BLOOD UREA NITROGEN 66.7 mg/dL (7-18)
[2023-06-09 12:10] LABS: CALCIUM 9.7 mg/dL (8.5-10.1)
[2023-06-09 12:12] LABS: CREATININE 3.4 mg/dL (0.55-1.3)
== END 2023-06-09 10:56 | disposition home or self-care (01) | DRG 291 ==
LOC: JER 10:24 → OBSVTOIN 11:38 → JERBED 11:38 → J4W 15:03 → J5S 06-04 13:37
PROVIDERS: ADMIT Internal Medicine
DX: I13.0 Hypertensive heart and chronic kidney disease with heart failure and stage 1 through stage 4 chronic kidney disease, or unspecified chronic kidney disease (principal); I50.43 Acute on chronic combined systolic (congestive) and diastolic (congestive) heart failure; J96.21 Acute and chronic respiratory failure with hypoxia; D68.61 Antiphospholipid syndrome; N18.4 Chronic kidney disease, stage 4 (severe); N17.9 Acute kidney failure, unspecified; N39.0 Urinary tract infection, site not specified; I69.351 Hemiplegia and hemiparesis following cerebral infarction affecting right dominant side; I25.10 Atherosclerotic heart disease of native coronary artery without angina pectoris; F03.90 Unspecified dementia, unspecified severity, without behavioral disturbance, psychotic disturbance, mood disturbance, and anxiety; E11.22 Type 2 diabetes mellitus with diabetic chronic kidney disease; I48.91 Unspecified atrial fibrillation; E78.5 Hyperlipidemia, unspecified; K21.9 Gastro-esophageal reflux disease without esophagitis; R82.71 Bacteriuria; R14.0 Abdominal distension (gaseous); E87.6 Hypokalemia
CPT/HCPCS: 0241U-QW; 36415; 71045-TC-FY; 74019-TC-FY; 74176-TC; 80048; 80053; 81003; 82803; 82962; 83036; 83735; 83880; 84100; 84484; 85025; 85027; 85610; 85730; 86850; 86900; 86901; 87086; 87186; 93005; 93010; 93306-TC; 94640; 94660; 97116-GP; 97162-GP; 99285-25; Q9967

== ENCOUNTER 2024-01-17 09:18 | Observation (INO) | payer OTHER ==
[2024-01-17 10:15] LABS: BASO % 0.6 % (0-2.0); EOS % 2.8 % (0-4.5); HEMATOCRIT 31.4 % (32.4-45.2); HEMOGLOBIN 10.6 GM/dL (10.7-15.3); LYMPH % 34.6 % (8-40); MCH 32.4 pg (25.7-33.7); MCHC 33.7 g/dl (32.0-36.0); MEAN CELL VOLUME 96.2 fl (80-96); MONO % 10.1 % (3.8-10.2); NEUT % 51.9 % (42.8-82.8); PLATELET COUNT 326 10^3/uL (134-434); RBC 3.26 M/mm3 (3.60-5.2); RDW 14.4 % (11.6-15.6); WHITE BLOOD COUNT 7.1 K/mm3 (4.0-10.0)
[2024-01-17 10:21] LABS: INR 1.72 (0.83-1.09); PROTHROMBIN TIME (PATIENT) 19.8 SEC (9.7-13.0)
[2024-01-17 10:23] LABS: ACTIVATED PTT 32.3 SECONDS (25.2-36.5)
[2024-01-17 10:38] LABS: CHLORIDE 97 mmol/L (98-107); SODIUM 136 mmol/L (136-145)
[2024-01-17 10:40] LABS: CALCIUM 9.8 mg/dL (8.5-10.1)
[2024-01-17 10:41] LABS: ALBUMIN 3.3 g/dl (3.4-5.0); BLOOD UREA NITROGEN 100.2 mg/dL (7-18); CO2 31 mmol/L (21-32); GLUCOSE,RANDOM 113 mg/dL (74-106); MAGNESIUM 3.1 mg/dL (1.8-2.4)
[2024-01-17 10:44] LABS: CREATININE 4.9 mg/dL (0.55-1.3); PHOSPHOROUS 4.1 mg/dL (2.5-4.9); SGOT/AST 73 U/L (15-37); SGPT/ALT 29 U/L (13-61)
[2024-01-17 10:45] LABS: TOT PROT 7.8 g/dl (6.4-8.2)
[2024-01-17 10:46] LABS: BILIRUBIN,TOTAL 0.4 mg/dL (0.2-1)
[2024-01-17 10:47] LABS: ALK PHOS 36 U/L (45-117)
[2024-01-17 11:15] LABS: ANION GAP 8 mmol/L (4-13); POTASSIUM 6.1 mmol/L (3.5-5.1)
[2024-01-17 12:53] LABS: POTASSIUM 5.1 mmol/L (3.5-5.1)
[2024-01-17 12:55] LABS: BLOOD UREA NITROGEN 101.7 mg/dL (7-18); CALCIUM 9.6 mg/dL (8.5-10.1)
[2024-01-17 12:58] LABS: CREATININE 4.9 mg/dL (0.55-1.3)
[2024-01-17] MEDS ORDERED: HEPARIN NA (PORCINE) 5,000 UNITS/ML 1ML VIAL ONE (13:51)
[2024-01-17] MEDS ORDERED: FENTANYL CITRATE/PF 50 MCG/ML VIAL ONE (14:07)
[2024-01-17] MEDS: FENTANYL CITRATE/PF 50 MCG/ML VIAL IVPUSH ONE (14:09)
[2024-01-17] MEDS ORDERED: SODIUM CHLORIDE 250 ML IV PRN (15:30)
[2024-01-17] MEDS: SPIRONOLACTONE 25 MG TABLET PO SCH (21:43)
[2024-01-17] MEDS: ALPRAZolam 1 MG TABLET PO SCH (21:44)
[2024-01-17] MEDS: ROSUVASTATIN CA 10 MG TABLET PO SCH (21:44)
[2024-01-17] MEDS: INSULIN ASPART SLIDING SCALE (NOVOLOG) 1 VIAL SQ SCH (21:44)
[2024-01-17] MEDS: SIMETHICONE 80 MG TAB.CHEW (FP) PO SCH (21:44)
[2024-01-17] MEDS: BRIMONIDINE TARTRATE 0.2% OPHTHALMIC 5 ML BOTTLE OU SCH (21:45)
[2024-01-17] MEDS: ACETAMINOPHEN 325 MG TABLET (FP) PO PRN (21:46)
[2024-01-17] MEDS: hydrALAZINE HCL 10 MG TABLET PO SCH (21:51)
[2024-01-17] MEDS: BETHANECHOL CHLORIDE 10 MG TABLET PO SCH (22:01)
[2024-01-17 23:26] LABS: HEMATOCRIT 27.6 % (32.4-45.2); HEMOGLOBIN 9.2 GM/dL (10.7-15.3); MCH 32.1 pg (25.7-33.7); MCHC 33.2 g/dl (32.0-36.0); MEAN CELL VOLUME 96.7 fl (80-96); PLATELET COUNT 276 10^3/uL (134-434); RBC 2.85 M/mm3 (3.60-5.2); RDW 14.1 % (11.6-15.6); WHITE BLOOD COUNT 5.9 K/mm3 (4.0-10.0)
[2024-01-18] MEDS: SODIUM CHLORIDE 500 ML IV STA (05:37)
[2024-01-18 06:06] LABS: HEMATOCRIT 29.6 % (32.4-45.2); HEMOGLOBIN 9.7 GM/dL (10.7-15.3); MCH 32.3 pg (25.7-33.7); MCHC 32.9 g/dl (32.0-36.0); MEAN CELL VOLUME 98.2 fl (80-96); MEAN PLT VOLUME 8.3 fl (7.5-11.1); PLATELET COUNT 294 10^3/uL (134-434); RBC 3.01 M/mm3 (3.60-5.2); RDW 14.2 % (11.6-15.6); WHITE BLOOD COUNT 6.2 K/mm3 (4.0-10.0)
[2024-01-18 08:32] LABS: HEMOGLOBIN 9.3 GM/dL (10.7-15.3); MCH 32.4 pg (25.7-33.7); MCHC 33.2 g/dl (32.0-36.0); MEAN CELL VOLUME 97.5 fl (80-96); MEAN PLT VOLUME 8.2 fl (7.5-11.1); PLATELET COUNT 272 10^3/uL (134-434); RBC 2.87 M/mm3 (3.60-5.2); RDW 14.3 % (11.6-15.6)
[2024-01-18 08:53] LABS: POTASSIUM 3.7 mmol/L (3.5-5.1)
[2024-01-18 08:59] LABS: BLOOD UREA NITROGEN 101.9 mg/dL (7-18); CALCIUM 9.3 mg/dL (8.5-10.1)
[2024-01-18 09:00] LABS: ALBUMIN 3.2 g/dl (3.4-5.0); MAGNESIUM 2.8 mg/dL (1.8-2.4)
[2024-01-18 09:01] LABS: PHOSPHOROUS 3.6 mg/dL (2.5-4.9)
[2024-01-18 09:02] LABS: BILIRUBIN,TOTAL 0.3 mg/dL (0.2-1); TOT PROT 6.8 g/dl (6.4-8.2)
[2024-01-18 09:03] LABS: CREATININE 4.7 mg/dL (0.55-1.3)
[2024-01-18] MEDS: TAMSULOSIN HCL 0.4 MG CAP PO SCH (09:54)
[2024-01-18] MEDS: FERROUS SO4 325 MG TABLET (FP) PO SCH (09:54)
[2024-01-18] MEDS: LIPASE/PROTEASE/AMYLASE 36,000 UNIT CAPSULE PO SCH (09:56)
[2024-01-18] MEDS: ALPRAZolam 1 MG TABLET PO PRN (23:02)
[2024-01-19] MEDS: PATIENT'S OWN MEDICATION (NON-FORMULARY) (Linaclotide [Linzess] 290 MCG Capsule) PO SCH (06:03)
[2024-01-19 10:23] LABS: HEMOGLOBIN 9.3 GM/dL (10.7-15.3); MCH 32.2 pg (25.7-33.7); MEAN CELL VOLUME 96.6 fl (80-96); RBC 2.89 M/mm3 (3.60-5.2); WHITE BLOOD COUNT 6.7 K/mm3 (4.0-10.0)
[2024-01-19 10:24] LABS: MCHC 33.3 g/dl (32.0-36.0); MEAN PLT VOLUME 8.3 fl (7.5-11.1); PLATELET COUNT 260 10^3/uL (134-434); RDW 13.9 % (11.6-15.6)
[2024-01-19] MEDS ORDERED: SODIUM CHLORIDE 250 ML IV PRN (10:32)
[2024-01-19 10:39] LABS: POTASSIUM 3.4 mmol/L (3.5-5.1)
[2024-01-19 10:47] LABS: CALCIUM 9.3 mg/dL (8.5-10.1)
[2024-01-19 10:48] LABS: ALBUMIN 3.1 g/dl (3.4-5.0)
[2024-01-19 10:50] LABS: CREATININE 2.9 mg/dL (0.55-1.3)
[2024-01-19 10:52] LABS: BILIRUBIN,TOTAL 0.4 mg/dL (0.2-1); TOT PROT 6.9 g/dl (6.4-8.2)
[2024-01-19 10:55] LABS: BLOOD UREA NITROGEN 55.5 mg/dL (7-18)
[2024-01-19] MEDS: PRUCALOPRIDE SUCCINATE 1 MG PO SCH (11:49)
[2024-01-19] MEDS: EPOETIN ALFA-EPBX 4,000 UNIT/ML VIAL IVPUSH ONE (11:56)
[2024-01-19] MEDS: POTASSIUM CHLORIDE ORAL LIQUID 20 MEQ/15 ML PO ONE (14:22)
[2024-01-19 16:16] VITALS: BMI 40.6
[2024-01-19] MEDS: ALPRAZolam 0.25 MG TABLET PO PRN (22:46)
[2024-01-20 09:22] LABS: HEMATOCRIT 33.8 % (32.4-45.2); HEMOGLOBIN 11.1 GM/dL (10.7-15.3); MCH 32.2 pg (25.7-33.7); MCHC 32.8 g/dl (32.0-36.0); MEAN CELL VOLUME 98.1 fl (80-96); MEAN PLT VOLUME 8.5 fl (7.5-11.1); PLATELET COUNT 309 10^3/uL (134-434); RBC 3.45 M/mm3 (3.60-5.2); RDW 14.2 % (11.6-15.6); WHITE BLOOD COUNT 9.9 K/mm3 (4.0-10.0)
[2024-01-20 09:46] LABS: POTASSIUM 3.5 mmol/L (3.5-5.1)
[2024-01-20 09:51] LABS: CALCIUM 10.4 mg/dL (8.5-10.1)
[2024-01-20 09:52] LABS: ALBUMIN 3.6 g/dl (3.4-5.0); BLOOD UREA NITROGEN 36.1 mg/dL (7-18)
[2024-01-20 09:55] LABS: CREATININE 2.9 mg/dL (0.55-1.3)
[2024-01-20 09:56] LABS: BILIRUBIN,TOTAL 0.4 mg/dL (0.2-1)
[2024-01-20] MEDS: SPIRONOLACTONE 25 MG TABLET PO SCH (10:05)
[2024-01-20] MEDS: CLOPIDOGREL BISULFATE 75 MG TABLET (FP) PO SCH (12:22)
[2024-01-20] MEDS: APIXABAN 5 MG TABLET PO SCH (22:08)
[2024-01-21 08:56] LABS: HEMATOCRIT 31.7 % (32.4-45.2); HEMOGLOBIN 10.3 GM/dL (10.7-15.3); MCH 31.5 pg (25.7-33.7); MCHC 32.4 g/dl (32.0-36.0); MEAN CELL VOLUME 97.2 fl (80-96); MEAN PLT VOLUME 8.2 fl (7.5-11.1); PLATELET COUNT 292 10^3/uL (134-434); RBC 3.26 M/mm3 (3.60-5.2); WHITE BLOOD COUNT 8.6 K/mm3 (4.0-10.0)
[2024-01-21 09:07] VITALS: RESP 18
[2024-01-21 09:15] LABS: POTASSIUM 3.4 mmol/L (3.5-5.1)
[2024-01-21 09:27] LABS: ALBUMIN 3.4 g/dl (3.4-5.0); BLOOD UREA NITROGEN 51.9 mg/dL (7-18); CALCIUM 10.4 mg/dL (8.5-10.1)
[2024-01-21 09:31] LABS: CREATININE 3.3 mg/dL (0.55-1.3)
[2024-01-21 09:32] LABS: BILIRUBIN,TOTAL 0.4 mg/dL (0.2-1); TOT PROT 7.5 g/dl (6.4-8.2)
[2024-01-21] MEDS ORDERED: SODIUM CHLORIDE 250 ML IV PRN (11:00)
[2024-01-21 12:02] VITALS: TEMP 98.8
[2024-01-21] MEDS: IRON SUCROSE INJECTION 100 MG in SODIUM CHLORIDE 95 ML IVPB ONE (12:09)
[2024-01-21 13:54] VITALS: PULSE 97
[2024-01-21] MEDS ORDERED: IRON SUCROSE INJECTION 100 MG in SODIUM CHLORIDE 95 ML IVPB ONE (14:15)
[2024-01-21 15:08] VITALS: BP 165/72
[2024-01-21] MEDS: POTASSIUM CHLORIDE ORAL LIQUID 20 MEQ/15 ML PO ONE (15:33)
== END 2024-01-21 16:34 | disposition home or self-care (01) ==
LOC: JER 09:18 → JERBED 10:19 → J5S 17:21
PROVIDERS: ADMIT Internal Medicine
PROC: 02HV33Z Insertion of Infusion Device into Superior Vena Cava, Percutaneous Approach (ICD-10-PCS; principal; 2024-01-17)
PROC: 3E033GC Introduction of Other Therapeutic Substance into Peripheral Vein, Percutaneous Approach (ICD-10-PCS; 2024-01-17)
PROC: 3E033NZ Introduction of Analgesics, Hypnotics, Sedatives into Peripheral Vein, Percutaneous Approach (ICD-10-PCS; 2024-01-17)
PROC: 3E0337Z Introduction of Electrolytic and Water Balance Substance into Peripheral Vein, Percutaneous Approach (ICD-10-PCS; 2024-01-17)
DX: Z45.2 Encounter for adjustment and management of vascular access device (principal); L76.22 Postprocedural hemorrhage of skin and subcutaneous tissue following other procedure; I50.30 Unspecified diastolic (congestive) heart failure; N18.9 Chronic kidney disease, unspecified; I48.91 Unspecified atrial fibrillation; I13.0 Hypertensive heart and chronic kidney disease with heart failure and stage 1 through stage 4 chronic kidney disease, or unspecified chronic kidney disease; Z95.0 Presence of cardiac pacemaker; I70.1 Atherosclerosis of renal artery; Z99.2 Dependence on renal dialysis; N18.6 End stage renal disease; Z88.0 Allergy status to penicillin; Z91.013 Allergy to seafood; Z91.011 Allergy to milk products; Z88.8 Allergy status to other drugs, medicaments and biological substances
CPT/HCPCS: 36415; 36558; 71045-TC-FY; 80048; 80053; 82728; 82962; 83010; 83540; 83550; 83615; 83735; 84100; 85025; 85027; 85610; 85730; 86704; 86705; 86706; 86803; 86850; 86900; 86901; 87340; 87635; 93005; 93010; 96361; 96365; 96375; 99285-25; G0378; J1756; Q5106

== ENCOUNTER 2024-02-24 18:59 | Inpatient (IN) | payer OTHER ==
[2024-02-24] MEDS: ACETAMINOPHEN 1000 MG/100 ML BAG IVPB ONE (20:00)
[2024-02-24] MEDS ORDERED: ACETAMINOPHEN INJECTION 100 ML IVPB ONE (20:04)
[2024-02-24 20:14] LABS: HEMATOCRIT 33.1 % (32.4-45.2); HEMOGLOBIN 10.8 GM/dL (10.7-15.3); MCH 31.6 pg (25.7-33.7); MCHC 32.5 g/dl (32.0-36.0); MEAN CELL VOLUME 97.1 fl (80-96); MEAN PLT VOLUME 7.3 fl (7.5-11.1); PLATELET COUNT 378 10^3/uL (134-434); RBC 3.41 M/mm3 (3.60-5.2); RDW 15.2 % (11.6-15.6); WHITE BLOOD COUNT 6.8 K/mm3 (4.0-10.0)
[2024-02-24 20:15] LABS: VENOUS O2 SATURATION 28.1 % (70-80); VENOUS PCO2 53.6 mmHg (38-52); VENOUS PH 7.26 (7.310-7.410)
[2024-02-24 20:20] LABS: INR 1.58 (0.83-1.09); PROTHROMBIN TIME (PATIENT) 18.2 SEC (9.7-13.0)
[2024-02-24 20:22] LABS: ACTIVATED PTT 31.8 SECONDS (25.2-36.5)
[2024-02-24] MEDS ORDERED: MEROPENEM 1 GM VIAL (RESTRICTED TO ID) IVPB ONE (20:26)
[2024-02-24] MEDS ORDERED: VANCOMYCIN/WATER 1250 MG 1,250 MG/250 ML BAG IVPB ONE (20:26)
[2024-02-24] MEDS ORDERED: DEXTROSE 5%-WATER 100 ML IVPB ONE (20:27)
[2024-02-24 20:36] LABS: POTASSIUM 3.5 mmol/L (3.5-5.1)
[2024-02-24 20:38] LABS: CALCIUM 8.2 mg/dL (8.5-10.1)
[2024-02-24 20:39] LABS: ALBUMIN 3.3 g/dl (3.4-5.0); BLOOD UREA NITROGEN 29.3 mg/dL (7-18); MAGNESIUM 1.5 mg/dL (1.8-2.4)
[2024-02-24 20:42] LABS: CREATININE 3.2 mg/dL (0.55-1.3)
[2024-02-24 20:43] LABS: BILIRUBIN,TOTAL 0.6 mg/dL (0.2-1); TOT PROT 7.4 g/dl (6.4-8.2)
[2024-02-24 20:44] LABS: ANISOCYTOSIS 1+; LACTIC ACID 2.2 mmol/L (0.4-2.0); MACROCYTOSIS 0
[2024-02-24 20:47] LABS: N-TERMINAL BNP 3257.4 pg/ml (5-450)
[2024-02-24] MEDS: MEROPENEM 1 GM in DEXTROSE 5%-WATER 100 ML IVPB ONE (21:02)
[2024-02-24] MEDS: VANCOMYCIN/WATER 1250 MG 1,250 MG/250 ML BAG IVPB ONE (21:25)
[2024-02-24] MEDS ORDERED: MAGNESIUM SULFATE IN WATER 2 GM/50 ML IVPB IVPB ONE (23:54)
[2024-02-24] MEDS: MAGNESIUM SULFATE IN WATER 2 GM/50 ML IVPB IVPB ONE (23:59)
[2024-02-25 05:15] VITALS: BMI 36.2
[2024-02-25] MEDS: INSULIN ASPART SLIDING SCALE (NOVOLOG) 1 VIAL SQ SCH (06:17)
[2024-02-25 07:28] LABS: BASO % 0.2 % (0-2.0); EOS % 0.2 % (0-4.5); HEMATOCRIT 30.1 % (32.4-45.2); HEMOGLOBIN 9.9 GM/dL (10.7-15.3); LYMPH % 6.1 % (8-40); MCH 31.9 pg (25.7-33.7); MCHC 32.9 g/dl (32.0-36.0); MEAN PLT VOLUME 7.6 fl (7.5-11.1); MONO % 5.3 % (3.8-10.2); NEUT % 88.2 % (42.8-82.8); PLATELET COUNT 328 10^3/uL (134-434); RBC 3.11 M/mm3 (3.60-5.2); RDW 14.9 % (11.6-15.6); WHITE BLOOD COUNT 13.3 K/mm3 (4.0-10.0)
[2024-02-25 07:30] LABS: POTASSIUM 4.2 mmol/L (3.5-5.1)
[2024-02-25 07:34] LABS: BLOOD UREA NITROGEN 38.1 mg/dL (7-18); CALCIUM 8.8 mg/dL (8.5-10.1); MAGNESIUM 2.5 mg/dL (1.8-2.4)
[2024-02-25 07:38] LABS: CREATININE 3.8 mg/dL (0.55-1.3); PHOSPHOROUS 4.8 mg/dL (2.5-4.9)
[2024-02-25] MEDS: APIXABAN 2.5 MG TABLET PO SCH (13:14)
[2024-02-25] MEDS: CLOPIDOGREL BISULFATE 75 MG TABLET (FP) PO SCH (13:14)
[2024-02-25] MEDS: INSULIN REGULAR HUMAN 100 UNITS/ML *VIAL SQ SCH (13:33)
[2024-02-25] MEDS ORDERED: ACETAMINOPHEN 1000 MG/100 ML BAG IVPB PRN (14:40)
[2024-02-25] MEDS: AZTREONAM 1 GM in DEXTROSE 5%-WATER - 50 ML IVPB ONE (16:03)
[2024-02-25] MEDS: MEROPENEM 1 GM in DEXTROSE 5%-WATER 100 ML IVPB SCH (16:03)
[2024-02-25] MEDS ORDERED: SODIUM CHLORIDE 250 ML IV PRN (16:04)
[2024-02-25] MEDS: ERTAPENEM SODIUM 0.5 GM in SODIUM CHLORIDE 50 ML IVPB ONE (17:09)
[2024-02-25] MEDS ORDERED: INSULIN (NOVOLOG) ASPART 100 UNITS/ML 10ML VIAL ONE (21:08)
[2024-02-25] MEDS: diphenhydrAMINE HCL 25 MG CAPSULE (FP) PO PRN (21:12)
[2024-02-26] MEDS ORDERED: INSULIN (NOVOLOG) ASPART 100 UNITS/ML 10ML VIAL ONE (06:08)
[2024-02-26 13:00] LABS: HEMOGLOBIN 9.6 GM/dL (10.7-15.3); RBC 2.99 M/mm3 (3.60-5.2); WHITE BLOOD COUNT 7.2 K/mm3 (4.0-10.0)
[2024-02-26 13:01] LABS: HEMATOCRIT 28.8 % (32.4-45.2); MCHC 33.3 g/dl (32.0-36.0); MEAN CELL VOLUME 96.2 fl (80-96); MEAN PLT VOLUME 7.8 fl (7.5-11.1); PLATELET COUNT 339 10^3/uL (134-434); RDW 14.6 % (11.6-15.6)
[2024-02-26 13:27] LABS: POTASSIUM 3.8 mmol/L (3.5-5.1)
[2024-02-26 13:28] LABS: CALCIUM 9.5 mg/dL (8.5-10.1)
[2024-02-26 13:32] LABS: CREATININE 4.8 mg/dL (0.55-1.3)
[2024-02-26] MEDS: ALBUMIN HUMAN 25% 12.5 GM/50 ML VIAL IV SCH (14:14)
[2024-02-26 18:14] LABS: EPI CELLS 19 /uL (0-25.1); HYALINE CASTS 0 /uL (0-3.1); PH,URINE 5.5 (5.0-8.0); URINE APPEARANCE CLOUDY; URINE BACTERIA 122 /uL (0-1359); URINE BILIRUBIN NEGATIVE (NEGATIVE); URINE COLOR YELLOW; URINE GLUCOSE (UA) NEGATIVE (NEGATIVE); URINE KETONE NEGATIVE (NEGATIVE); URINE LEUK ESTERASE 2+ (NEGATIVE); URINE NITRITE NEGATIVE (NEGATIVE); URINE PROTEIN 1+ (NEGATIVE); URINE RBC 9 /uL (0-23.9); URINE UROBILINOGEN 0.2 mg/dL (0.2-1.0); URINE WBC 467 /uL (0-25.8)
[2024-02-26 18:42] LABS: URINE CRYSTALS NONE SEEN /hpf
[2024-02-26] MEDS: SULFAMETHOXAZOLE/TRIMETHOPRIM 800MG/160MG D.S. TABLET PO SCH (18:56)
[2024-02-26] MEDS: ACETAMINOPHEN 325 MG TABLET (FP) PO ONE (20:38)
[2024-02-26] MEDS: ALPRAZolam 1 MG TABLET PO PRN (21:36)
[2024-02-26] MEDS: BRIMONIDINE TARTRATE 0.2% OPHTHALMIC 5 ML BOTTLE OU SCH (22:06)
[2024-02-26] MEDS: BETHANECHOL CHLORIDE 10 MG TABLET PO SCH (22:06)
[2024-02-26] MEDS: LATANOPROST 0.005% OPHTH SOLN 2.5ML BOTTLE OU SCH (22:07)
[2024-02-27] MEDS ORDERED: PATIENT'S OWN MEDICATION (NON-FORMULARY) (Linaclotide [Linzess] 290 MCG Capsule) PO SCH (07:00)
[2024-02-27] MEDS: SIMETHICONE 80 MG TAB.CHEW (FP) PO SCH (07:58)
[2024-02-27] MEDS: TAMSULOSIN HCL 0.4 MG CAP PO SCH (07:58)
[2024-02-27] MEDS: SPIRONOLACTONE 25 MG TABLET PO SCH (09:12)
[2024-02-27] MEDS: ROSUVASTATIN CA 10 MG TABLET PO SCH (09:12)
[2024-02-27] MEDS: METOLAZONE 2.5 MG TABLET (FP) PO SCH (09:12)
[2024-02-27] MEDS: TORSEMIDE 20 MG TABLET (FP) PO SCH (09:15)
[2024-02-27] MEDS ORDERED: PRUCALOPRIDE SUCCINATE 1 MG PO SCH (10:00)
[2024-02-28 03:30] VITALS: RESP 20
[2024-02-28 07:37] LABS: BASO % 0.4 % (0-2.0); EOS % 2.4 % (0-4.5); HEMATOCRIT 31.4 % (32.4-45.2); HEMOGLOBIN 10.5 GM/dL (10.7-15.3); LYMPH % 31.9 % (8-40); MCH 31.5 pg (25.7-33.7); MCHC 33.5 g/dl (32.0-36.0); MEAN CELL VOLUME 93.9 fl (80-96); MEAN PLT VOLUME 7.9 fl (7.5-11.1); MONO % 10.6 % (3.8-10.2); NEUT % 54.7 % (42.8-82.8); PLATELET COUNT 388 10^3/uL (134-434); RBC 3.35 M/mm3 (3.60-5.2); RDW 14.2 % (11.6-15.6); WHITE BLOOD COUNT 6.9 K/mm3 (4.0-10.0)
[2024-02-28 07:43] LABS: POTASSIUM 3.3 mmol/L (3.5-5.1)
[2024-02-28 07:44] LABS: BLOOD UREA NITROGEN 57.2 mg/dL (7-18); MAGNESIUM 1.9 mg/dL (1.8-2.4)
[2024-02-28] MEDS: POTASSIUM CHLORIDE ORAL LIQUID 20 MEQ/15 ML PO ONE (09:13)
[2024-02-28] MEDS ORDERED: SPIRONOLACTONE 25 MG TABLET PO SCH (10:00)
[2024-02-28 15:22] VITALS: BP 137/62; PULSE 76; TEMP 98
== END 2024-02-28 16:33 | disposition home or self-care (01) | DRG 689 ==
LOC: JER 18:59 → JERBED 22:49 → J4W 02-25 03:39
PROVIDERS: ADMIT Internal Medicine; ATTEND Internal Medicine
PROC: 5A1D70Z Performance of Urinary Filtration, Intermittent, Less than 6 Hours Per Day (ICD-10-PCS; principal; 2024-02-26)
DX: N39.0 Urinary tract infection, site not specified (principal); J96.92 Respiratory failure, unspecified with hypercapnia; N18.6 End stage renal disease; I13.2 Hypertensive heart and chronic kidney disease with heart failure and with stage 5 chronic kidney disease, or end stage renal disease; F13.20 Sedative, hypnotic or anxiolytic dependence, uncomplicated; I50.32 Chronic diastolic (congestive) heart failure; I24.89 Other forms of acute ischemic heart disease; I69.351 Hemiplegia and hemiparesis following cerebral infarction affecting right dominant side; F03.90 Unspecified dementia, unspecified severity, without behavioral disturbance, psychotic disturbance, mood disturbance, and anxiety; I25.10 Atherosclerotic heart disease of native coronary artery without angina pectoris; E11.9 Type 2 diabetes mellitus without complications; E78.5 Hyperlipidemia, unspecified; B96.20 Unspecified Escherichia coli [E. coli] as the cause of diseases classified elsewhere; Z99.2 Dependence on renal dialysis
CPT/HCPCS: 0241U-QW; 36415; 71045-TC-FY; 80048; 80053; 81003; 82803; 82962; 83605; 83735; 83880; 84100; 84484; 85025; 85027; 85610; 85730; 86704; 86803; 86850; 86900; 86901; 87040; 87086; 87186; 87340; 87517; 93005; 93010; 94660; 97162-GP; 99285-25; J0131

== ENCOUNTER 2024-04-18 13:19 | Inpatient (IN) | payer OTHER ==
[2024-04-18 15:38] LABS: BASO % 0.4 % (0-2.0); EOS % 2.1 % (0-4.5); HEMATOCRIT 37.4 % (32.4-45.2); LYMPH % 17.3 % (8-40); MCH 31.2 pg (25.7-33.7); MCHC 32.2 g/dl (32.0-36.0); MEAN CELL VOLUME 96.9 fl (80-96); MEAN PLT VOLUME 8.3 fl (7.5-11.1); MONO % 7.3 % (3.8-10.2); NEUT % 72.9 % (42.8-82.8); PLATELET COUNT 262 10^3/uL (134-434); RBC 3.85 M/mm3 (3.60-5.2); RDW 16.7 % (11.6-15.6)
[2024-04-18 15:44] LABS: VENOUS BASE EXCESS -6.2 mmol/L (-2-2); VENOUS O2 SATURATION 81.3 % (70-80); VENOUS PCO2 46.4 mmHg (38-52); VENOUS PH 7.267 (7.310-7.410)
[2024-04-18 15:45] LABS: INR 1.27 (0.83-1.09); PROTHROMBIN TIME (PATIENT) 14.3 SEC (9.7-13.0)
[2024-04-18 15:48] LABS: ACTIVATED PTT 33.9 SECONDS (25.2-36.5)
[2024-04-18 15:58] LABS: POTASSIUM 5.9 mmol/L (3.5-5.1)
[2024-04-18 16:00] LABS: BLOOD UREA NITROGEN 51.3 mg/dL (7-18); CALCIUM 8.5 mg/dL (8.5-10.1)
[2024-04-18 16:01] LABS: ALBUMIN 3.4 g/dl (3.4-5.0); MAGNESIUM 2.2 mg/dL (1.8-2.4)
[2024-04-18 16:03] LABS: PHOSPHOROUS 4.8 mg/dL (2.5-4.9)
[2024-04-18 16:05] LABS: BILIRUBIN,TOTAL 0.4 mg/dL (0.2-1); TOT PROT 7.3 g/dl (6.4-8.2)
[2024-04-18 16:09] LABS: N-TERMINAL BNP 4189.9 pg/ml (5-450)
[2024-04-18] MEDS ORDERED: SODIUM CHLORIDE 250 ML IV PRN (17:21)
[2024-04-18] MEDS ORDERED: ACETAMINOPHEN INJECTION 100 ML IVPB ONE (21:43)
[2024-04-18] MEDS ORDERED: FUROSEMIDE 40 MG/4 ML INJECTABLE VIAL ONE (21:44)
[2024-04-18] MEDS: ACETAMINOPHEN 1000 MG/100 ML BAG IVPB ONE (21:58)
[2024-04-18] MEDS: FUROSEMIDE 40 MG/4 ML INJECTABLE VIAL IVPUSH ONE (21:59)
[2024-04-18] MEDS: INSULIN ASPART SLIDING SCALE (NOVOLOG) 1 VIAL SQ SCH (22:25)
[2024-04-19 00:07] LABS: EPI CELLS 7 /uL (0-25.1); HYALINE CASTS 0 /uL (0-3.1); PH,URINE 5.5 (5.0-8.0); URINE APPEARANCE CLOUDY; URINE BACTERIA 8670 /uL (0-1359); URINE BILIRUBIN NEGATIVE (NEGATIVE); URINE COLOR YELLOW; URINE GLUCOSE (UA) NEGATIVE (NEGATIVE); URINE KETONE TRACE (NEGATIVE); URINE LEUK ESTERASE 2+ (NEGATIVE); URINE NITRITE NEGATIVE (NEGATIVE); URINE PROTEIN 1+ (NEGATIVE); URINE RBC 25 /uL (0-23.9); URINE UROBILINOGEN 0.2 mg/dL (0.2-1.0); URINE WBC 283 /uL (0-25.8)
[2024-04-19 07:38] LABS: CHLORIDE 104 mmol/L (98-107); SODIUM 136 mmol/L (136-145)
[2024-04-19 07:58] LABS: CALCIUM 8.7 mg/dL (8.5-10.1)
[2024-04-19 07:59] LABS: BLOOD UREA NITROGEN 57.2 mg/dL (7-18); CO2 23 mmol/L (21-32); GLUCOSE,RANDOM 127 mg/dL (74-106); MAGNESIUM 2.2 mg/dL (1.8-2.4)
[2024-04-19 08:02] LABS: CREATININE 5.3 mg/dL (0.55-1.3)
[2024-04-19 08:24] LABS: ANION GAP 9 mmol/L (4-13); POTASSIUM 6.3 mmol/L (3.5-5.1)
[2024-04-19] MEDS: ALBUMIN HUMAN 25% 12.5 GM/50 ML VIAL IV SCH (13:30)
[2024-04-19] MEDS: diphenhydrAMINE HCL 25 MG CAPSULE (FP) PO ONE (17:22)
[2024-04-19] MEDS: CEFTRIAXONE 1 GM in DEXTROSE 5%-WATER - 50 ML IVPB SCH (17:40)
[2024-04-19] MEDS ORDERED: SODIUM CHLORIDE 250 ML IV PRN (17:46)
[2024-04-19] MEDS: AZTREONAM 1 GM VIAL (RESTRICTED TO ID) IVPB ONE (18:46)
[2024-04-19] MEDS: AZTREONAM 1 GM in SODIUM CHLORIDE 50 ML IVPB ONE (19:30)
[2024-04-19] MEDS: BUDESONIDE 0.5 MG/2 ML INH SUSP VIAL NEB SCH (20:05)
[2024-04-19] MEDS: VANCOMYCIN/WATER FOR INJ (PEG) 1,000 MG/200 ML BAG IVPB ONE (20:23)
[2024-04-19] MEDS: ALPRAZolam 1 MG TABLET PO SCH (21:46)
[2024-04-19] MEDS: APIXABAN 2.5 MG TABLET PO SCH (21:46)
[2024-04-19] MEDS: ROSUVASTATIN CA 10 MG TABLET PO SCH (21:46)
[2024-04-19] MEDS ORDERED: BETHANECHOL CHLORIDE 10 MG TABLET PO SCH (22:00)
[2024-04-19] MEDS: BRIMONIDINE TARTRATE 0.2% OPHTHALMIC 5 ML BOTTLE OU SCH (23:00)
[2024-04-20] MEDS ORDERED: INSULIN ASPART SLIDING SCALE (NOVOLOG) 1 VIAL SQ ONE ×2 (05:59→16:11)
[2024-04-20] MEDS: ALBUMIN HUMAN 25% 12.5 GM/50 ML VIAL IV SCH (09:55)
[2024-04-20] MEDS ORDERED: CLOPIDOGREL BISULFATE 75 MG TABLET (FP) PO SCH (10:00)
[2024-04-20 10:03] LABS: HEMATOCRIT 34.8 % (32.4-45.2); HEMOGLOBIN 11.3 GM/dL (10.7-15.3); MCH 31.8 pg (25.7-33.7); MCHC 32.5 g/dl (32.0-36.0); MEAN CELL VOLUME 98.1 fl (80-96); MEAN PLT VOLUME 8.1 fl (7.5-11.1); PLATELET COUNT 256 10^3/uL (134-434); RBC 3.54 M/mm3 (3.60-5.2); RDW 16.3 % (11.6-15.6)
[2024-04-20 10:29] LABS: POTASSIUM 4.3 mmol/L (3.5-5.1)
[2024-04-20 10:35] LABS: ALBUMIN 3.2 g/dl (3.4-5.0); CALCIUM 9.3 mg/dL (8.5-10.1)
[2024-04-20 10:36] LABS: BLOOD UREA NITROGEN 42.7 mg/dL (7-18)
[2024-04-20 10:39] LABS: CREATININE 4.4 mg/dL (0.55-1.3); PHOSPHOROUS 4.5 mg/dL (2.5-4.9)
[2024-04-20 10:40] LABS: BILIRUBIN,TOTAL 0.4 mg/dL (0.2-1); TOT PROT 6.6 g/dl (6.4-8.2)
[2024-04-20] MEDS: TAMSULOSIN HCL 0.4 MG CAP PO SCH (14:54)
[2024-04-20] MEDS: ASCORBIC ACID 500 MG TABLET (FP) PO SCH (14:55)
[2024-04-20] MEDS: CLOPIDOGREL BISULFATE 75 MG TABLET (FP) PO SCH (14:55)
[2024-04-20] MEDS: ALLOPURINOL 100 MG TABLET (FP) PO SCH (14:55)
[2024-04-20] MEDS: LIDOCAINE 5% TOPICAL PATCH TP SCH (18:51)
[2024-04-20] MEDS: ACETAMINOPHEN 325 MG TABLET (FP) PO PRN (18:52)
[2024-04-20] MEDS: LIDOCAINE PATCH REMOVAL MC SCH (22:06)
[2024-04-21 07:45] LABS: HEMOGLOBIN 11.8 GM/dL (10.7-15.3); MCH 30.9 pg (25.7-33.7); MEAN CELL VOLUME 96.8 fl (80-96); MEAN PLT VOLUME 8.1 fl (7.5-11.1); PLATELET COUNT 260 10^3/uL (134-434); RBC 3.82 M/mm3 (3.60-5.2); RDW 15.9 % (11.6-15.6); WHITE BLOOD COUNT 5.7 K/mm3 (4.0-10.0)
[2024-04-21 08:03] LABS: POTASSIUM 4.4 mmol/L (3.5-5.1)
[2024-04-21 08:10] LABS: BLOOD UREA NITROGEN 33.2 mg/dL (7-18); CALCIUM 10.4 mg/dL (8.5-10.1)
[2024-04-21 08:13] LABS: PHOSPHOROUS 4.1 mg/dL (2.5-4.9)
[2024-04-21 08:14] LABS: BILIRUBIN,TOTAL 0.5 mg/dL (0.2-1); CREATININE 4.1 mg/dL (0.55-1.3); TOT PROT 7.6 g/dl (6.4-8.2)
[2024-04-21 08:19] LABS: ALBUMIN 4.2 g/dl (3.4-5.0)
[2024-04-22] VITALS: BMI 30.2
[2024-04-22] MEDS: AMINO ACIDS/PROTEIN HYDROLYS 30 ML LIQUID.PKT PO SCH (08:18)
[2024-04-22] MEDS ORDERED: SODIUM CHLORIDE 250 ML IV PRN (09:30)
[2024-04-22] MEDS: ALBUMIN HUMAN 25% 12.5 GM/50 ML VIAL IV SCH (09:30)
[2024-04-22 10:14] VITALS: TEMP 97.9
[2024-04-22 10:14] LABS: HEMATOCRIT 36.3 % (32.4-45.2); HEMOGLOBIN 11.8 GM/dL (10.7-15.3); MCHC 32.6 g/dl (32.0-36.0); MEAN CELL VOLUME 95.1 fl (80-96); MEAN PLT VOLUME 8.1 fl (7.5-11.1); PLATELET COUNT 270 10^3/uL (134-434); RBC 3.82 M/mm3 (3.60-5.2); RDW 15.6 % (11.6-15.6); WHITE BLOOD COUNT 3.9 K/mm3 (4.0-10.0)
[2024-04-22 10:25] LABS: POTASSIUM 3.4 mmol/L (3.5-5.1)
[2024-04-22 10:31] LABS: ALBUMIN 3.6 g/dl (3.4-5.0); BLOOD UREA NITROGEN 37.7 mg/dL (7-18); CALCIUM 9.5 mg/dL (8.5-10.1)
[2024-04-22 10:35] LABS: BILIRUBIN,TOTAL 0.4 mg/dL (0.2-1); TOT PROT 7.3 g/dl (6.4-8.2)
[2024-04-22] MEDS ORDERED: AZTREONAM 1 GM in DEXTROSE 5%-WATER - 50 ML IVPB ONE (12:50)
[2024-04-22] MEDS: AZTREONAM 2 GM in DEXTROSE 5%-WATER 100 ML IVPB ONE (14:18)
[2024-04-22 14:20] VITALS: RESP 18
[2024-04-22 14:24] VITALS: BP 127/62
[2024-04-22 15:29] VITALS: PULSE 74
[2024-04-22] MEDS: ONDANSETRON 4 MG/2 ML VIAL IVPB ONE (15:37)
[2024-04-22] MEDS: VANCOMYCIN/WATER FOR INJ (PEG) 1,000 MG/200 ML BAG IVPB ONE (16:09)
== END 2024-04-22 06:15 | disposition home or self-care (01) | DRG 640 ==
LOC: JER 13:19 → JERBED 18:33 → J4W 04-19 00:22
PROVIDERS: ADMIT Internal Medicine; ATTEND Internal Medicine
PROC: 5A1D70Z Performance of Urinary Filtration, Intermittent, Less than 6 Hours Per Day (ICD-10-PCS; principal; 2024-04-18)
DX: E87.70 Fluid overload, unspecified (principal); J96.21 Acute and chronic respiratory failure with hypoxia; N18.6 End stage renal disease; I50.32 Chronic diastolic (congestive) heart failure; I13.2 Hypertensive heart and chronic kidney disease with heart failure and with stage 5 chronic kidney disease, or end stage renal disease; L03.115 Cellulitis of right lower limb; N39.0 Urinary tract infection, site not specified; I48.91 Unspecified atrial fibrillation; Z99.2 Dependence on renal dialysis; F03.90 Unspecified dementia, unspecified severity, without behavioral disturbance, psychotic disturbance, mood disturbance, and anxiety; E11.22 Type 2 diabetes mellitus with diabetic chronic kidney disease; I49.5 Sick sinus syndrome; I95.89 Other hypotension; E87.5 Hyperkalemia; N26.1 Atrophy of kidney (terminal); E87.20 Acidosis, unspecified; B96.20 Unspecified Escherichia coli [E. coli] as the cause of diseases classified elsewhere
CPT/HCPCS: 0241U-QW; 36415; 71045-TC-FY; 73060-TC-RT-FY; 73090-TC-RT-FY; 74176-TC; 80048; 80053; 81003; 82570; 82803; 82962; 83605; 83690; 83735; 83880; 84100; 84156; 84484; 85025; 85027; 85610; 85730; 86705; 87040; 87086; 87186; 87340; 93005; 93010; 93971; 94640; 94660; 97161-GP; 99285-25; J0131; P9047

== ENCOUNTER 2024-06-15 06:41 | Inpatient (IN) | payer OTHER ==
[2024-06-15 07:05] VITALS: BMI 36.1
[2024-06-15 07:53] LABS: VENOUS BASE EXCESS -4.4 mmol/L (-2-2); VENOUS O2 SATURATION 67.1 % (70-80); VENOUS PCO2 60.6 mmHg (38-52); VENOUS PH 7.22 (7.310-7.410)
[2024-06-15 08:07] LABS: BASO % 0.4 % (0-2.0); EOS % 2.3 % (0-4.5); HEMATOCRIT 39.1 % (32.4-45.2); HEMOGLOBIN 12.7 GM/dL (10.7-15.3); MCH 32.5 pg (25.7-33.7); MCHC 32.4 g/dl (32.0-36.0); MEAN CELL VOLUME 100.3 fl (80-96); MEAN PLT VOLUME 7.9 fl (7.5-11.1); MONO % 7.6 % (3.8-10.2); NEUT % 69.7 % (42.8-82.8); PLATELET COUNT 240 10^3/uL (134-434); RDW 15.9 % (11.6-15.6); WHITE BLOOD COUNT 8.8 K/mm3 (4.0-10.0)
[2024-06-15 08:52] LABS: POTASSIUM 5.4 mmol/L (3.5-5.1)
[2024-06-15 08:56] LABS: ALBUMIN 3.5 g/dl (3.4-5.0); BLOOD UREA NITROGEN 49.4 mg/dL (7-18); CALCIUM 9.4 mg/dL (8.5-10.1)
[2024-06-15 08:59] LABS: CREATININE 4.3 mg/dL (0.55-1.3)
[2024-06-15 09:07] LABS: BILIRUBIN,TOTAL 0.3 mg/dL (0.2-1); N-TERMINAL BNP 8073.8 pg/ml (5-450); TOT PROT 7.3 g/dl (6.4-8.2)
[2024-06-15] MEDS ORDERED: HEPARIN NA (PORCINE) 5,000 UNITS/ML 1ML VIAL IVPUSH ONE (09:13)
[2024-06-15] MEDS ORDERED: SODIUM CHLORIDE 250 ML IV PRN (09:13)
[2024-06-15] MEDS: FUROSEMIDE 100 MG/10 ML INJECTABLE VIAL IVPB ONE (09:35)
[2024-06-15] MEDS ORDERED: FUROSEMIDE 40 MG/4 ML INJECTABLE VIAL ONE (09:43)
[2024-06-15] MEDS: methylPREDNISolone NA SUCC 40 MG/1 ML VIAL IVPUSH SCH (16:00)
[2024-06-15] MEDS: ALBUTEROL SO4 2.5/IPRATROPIUM 0.5 INH SOL 3 ML VIAL.NEB. NEB SCH (19:50)
[2024-06-15] MEDS: ACETAMINOPHEN 1000 MG/100 ML BAG IVPB ONE (21:10)
[2024-06-15] MEDS: APIXABAN 2.5 MG TABLET PO SCH (21:11)
[2024-06-15] MEDS: FUROSEMIDE 40 MG/4 ML INJECTABLE VIAL IVPUSH SCH (21:11)
[2024-06-15] MEDS: INSULIN ASPART SLIDING SCALE (NOVOLOG) 1 VIAL SQ SCH (21:31)
[2024-06-15] MEDS: AZTREONAM 2 GM in DEXTROSE 5%-WATER 100 ML IVPB SCH (21:49)
[2024-06-15] MEDS: ALPRAZolam 1 MG TABLET PO SCH (21:50)
[2024-06-15] MEDS ORDERED: INSULIN (LEVEMIR) 100 UNITS/ML UNITS SQ SCH (22:00)
[2024-06-15] MEDS: VANCOMYCIN/WATER 1250 MG 1,250 MG/250 ML BAG IVPB ONE (22:36)
[2024-06-15] MEDS: BRIMONIDINE TARTRATE 0.2% OPHTHALMIC 5 ML BOTTLE OU SCH (22:36)
[2024-06-15] MEDS: METOLAZONE 2.5 MG TABLET (FP) PO SCH (23:13)
[2024-06-15] MEDS: BETHANECHOL CHLORIDE 5 MG TABLET PO SCH (23:13)
[2024-06-15] MEDS: METOCLOPRAMIDE HCL 10 MG TABLET (FP) PO SCH (23:13)
[2024-06-16] MEDS: BETHANECHOL CHLORIDE 10 MG TABLET PO SCH (06:18)
[2024-06-16] MEDS: METOCLOPRAMIDE HCL 10 MG TABLET (FP) PO SCH (06:26)
[2024-06-16 08:39] LABS: BASO % 0.1 % (0-2.0); EOS % 0.1 % (0-4.5); HEMATOCRIT 36.6 % (32.4-45.2); HEMOGLOBIN 12.1 GM/dL (10.7-15.3); LYMPH % 13.2 % (8-40); MCH 32.5 pg (25.7-33.7); MEAN CELL VOLUME 98.3 fl (80-96); MEAN PLT VOLUME 8.1 fl (7.5-11.1); MONO % 3.3 % (3.8-10.2); NEUT % 83.3 % (42.8-82.8); PLATELET COUNT 280 10^3/uL (134-434); RBC 3.72 M/mm3 (3.60-5.2); RDW 15.9 % (11.6-15.6); WHITE BLOOD COUNT 6.4 K/mm3 (4.0-10.0)
[2024-06-16 09:02] LABS: POTASSIUM 4.7 mmol/L (3.5-5.1)
[2024-06-16 09:04] LABS: ALBUMIN 3.4 g/dl (3.4-5.0); BLOOD UREA NITROGEN 41.3 mg/dL (7-18)
[2024-06-16] MEDS: ISOSORBIDE MONONITRATE 60 MG TAB.SR.24H (FP) PO SCH (09:05)
[2024-06-16] MEDS: CLOPIDOGREL BISULFATE 75 MG TABLET (FP) PO SCH (09:05)
[2024-06-16] MEDS: predniSONE 20 MG TABLET (UD) PO SCH (09:05)
[2024-06-16] MEDS: SIMETHICONE 80 MG TAB.CHEW (FP) PO SCH (09:06)
[2024-06-16] MEDS: TAMSULOSIN HCL 0.4 MG CAP PO SCH (09:06)
[2024-06-16] MEDS: CYPROHEPTADINE HCL 4 MG TABLET PO SCH (09:07)
[2024-06-16] MEDS: LIPASE/PROTEASE/AMYLASE 36,000 UNIT CAPSULE PO SCH (09:07)
[2024-06-16 09:08] LABS: CALCIUM 9.2 mg/dL (8.5-10.1); MAGNESIUM 2.2 mg/dL (1.8-2.4)
[2024-06-16 09:09] LABS: BILIRUBIN,TOTAL 0.4 mg/dL (0.2-1); TOT PROT 7.2 g/dl (6.4-8.2)
[2024-06-16 09:11] LABS: CREATININE 3.4 mg/dL (0.55-1.3)
[2024-06-16] MEDS: AZTREONAM 2 GM in DEXTROSE 5%-WATER 100 ML IVPB SCH (15:50)
[2024-06-16] MEDS: ROSUVASTATIN CA 10 MG TABLET PO SCH (21:13)
[2024-06-16] MEDS: ACETAMINOPHEN 325 MG TABLET (FP) PO ONE (21:32)
[2024-06-16] MEDS: LATANOPROST 0.005% OPHTH SOLN 2.5ML BOTTLE OU SCH (23:00)
[2024-06-17] MEDS: INSULIN (NOVOLOG) ASPART 100 UNITS/ML 10ML VIAL SQ ONE (00:52)
[2024-06-17] MEDS ORDERED: SODIUM CHLORIDE 250 ML IV PRN (07:32)
[2024-06-17] MEDS: HEPARIN NA (PORCINE) 5,000 UNITS/ML 1ML VIAL IVPUSH ONE (09:00)
[2024-06-17 10:01] LABS: HEMATOCRIT 34.1 % (32.4-45.2); HEMOGLOBIN 11.1 GM/dL (10.7-15.3); MCHC 32.7 g/dl (32.0-36.0); MEAN CELL VOLUME 97.9 fl (80-96); MEAN PLT VOLUME 8.3 fl (7.5-11.1); PLATELET COUNT 281 10^3/uL (134-434); RBC 3.49 M/mm3 (3.60-5.2); RDW 15.5 % (11.6-15.6)
[2024-06-17 10:22] LABS: POTASSIUM 4.1 mmol/L (3.5-5.1)
[2024-06-17 10:26] LABS: CALCIUM 9.4 mg/dL (8.5-10.1)
[2024-06-17 10:27] LABS: CREATININE 4.8 mg/dL (0.55-1.3)
[2024-06-17 10:33] LABS: BLOOD UREA NITROGEN 79.8 mg/dL (7-18)
[2024-06-17] MEDS: ACETAMINOPHEN 325 MG TABLET (FP) PO PRN (16:21)
[2024-06-17] MEDS: PRUCALOPRIDE SUCCINATE 1 MG PO SCH (18:20)
[2024-06-17] MEDS: CLOTRIMAZOLE 1% CREAM TP SCH (21:38)
[2024-06-18] MEDS: INSULIN (NOVOLOG) ASPART 100 UNITS/ML 10ML VIAL SQ ONE (00:43)
[2024-06-18] MEDS: PATIENT'S OWN MEDICATION (NON-FORMULARY) (Linaclotide [Linzess] 290 MCG Capsule) PO SCH (07:00)
[2024-06-19 07:23] LABS: BASO % 0.1 % (0-2.0); EOS % 0.1 % (0-4.5); HEMATOCRIT 33.3 % (32.4-45.2); LYMPH % 16.6 % (8-40); MCH 32.6 pg (25.7-33.7); MCHC 33.2 g/dl (32.0-36.0); MEAN CELL VOLUME 98.4 fl (80-96); MONO % 10.1 % (3.8-10.2); NEUT % 73.1 % (42.8-82.8); PLATELET COUNT 264 10^3/uL (134-434); RBC 3.38 M/mm3 (3.60-5.2); RDW 15.5 % (11.6-15.6); WHITE BLOOD COUNT 6.7 K/mm3 (4.0-10.0)
[2024-06-19 08:06] LABS: ALBUMIN 3.3 g/dl (3.4-5.0); BILIRUBIN,TOTAL 0.3 mg/dL (0.2-1); BLOOD UREA NITROGEN 96.7 mg/dL (7-18); CALCIUM 9.3 mg/dL (8.5-10.1); POTASSIUM 4.1 mmol/L (3.5-5.1); TOT PROT 6.6 g/dl (6.4-8.2)
[2024-06-19] MEDS: INSULIN (LEVEMIR) 100 UNITS/ML UNITS SQ SCH (13:09)
[2024-06-20] MEDS: INSULIN (NOVOLOG) ASPART 100 UNITS/ML 10ML VIAL SQ ONE (03:51)
[2024-06-20] MEDS ORDERED: SODIUM CHLORIDE 250 ML IV PRN (07:23)
[2024-06-20] MEDS: HEPARIN NA (PORCINE) 5,000 UNITS/ML 1ML VIAL IVPUSH ONE (09:11)
[2024-06-20 09:54] LABS: HEMATOCRIT 33.8 % (32.4-45.2); HEMOGLOBIN 11.3 GM/dL (10.7-15.3); MCH 32.6 pg (25.7-33.7); MCHC 33.5 g/dl (32.0-36.0); MEAN CELL VOLUME 97.3 fl (80-96); MEAN PLT VOLUME 8.1 fl (7.5-11.1); PLATELET COUNT 270 10^3/uL (134-434); RBC 3.48 M/mm3 (3.60-5.2); RDW 15.5 % (11.6-15.6); WHITE BLOOD COUNT 7.3 K/mm3 (4.0-10.0)
[2024-06-20 10:11] LABS: CHLORIDE 99 mmol/L (98-107); POTASSIUM 3.1 mmol/L (3.5-5.1); SODIUM 139 mmol/L (136-145)
[2024-06-20 10:18] LABS: CALCIUM 9.1 mg/dL (8.5-10.1)
[2024-06-20 10:19] LABS: ALBUMIN 3.4 g/dl (3.4-5.0); ANION GAP 15 mmol/L (4-13); CO2 25 mmol/L (21-32); GLUCOSE,RANDOM 230 mg/dL (74-106); SGOT/AST 14 U/L (15-37); SGPT/ALT 20 U/L (13-61)
[2024-06-20 10:21] LABS: BILIRUBIN,TOTAL 0.3 mg/dL (0.2-1)
[2024-06-20 10:24] LABS: TOT PROT 6.8 g/dl (6.4-8.2)
[2024-06-20 10:26] LABS: ALK PHOS 59 U/L (45-117)
[2024-06-20 10:43] LABS: BLOOD UREA NITROGEN 126.7 mg/dL (7-18); CREATININE 5.1 mg/dL (0.55-1.3)
[2024-06-20] MEDS: POTASSIUM CHLORIDE ORAL LIQUID 20 MEQ/15 ML PO ONE (13:31)
[2024-06-20] MEDS: FUROSEMIDE 40 MG/4 ML INJECTABLE VIAL IVPUSH SCH (13:41)
[2024-06-20] MEDS ORDERED: INSULIN ASPART SLIDING SCALE (NOVOLOG) 1 VIAL SQ ONE (18:19)
[2024-06-21] MEDS: ISOSORBIDE MONONITRATE 30 MG TAB.SR.24H (FP) PO SCH (10:51)
[2024-06-21 11:19] LABS: POTASSIUM 3.3 mmol/L (3.5-5.1)
[2024-06-21 11:21] LABS: CALCIUM 9.3 mg/dL (8.5-10.1)
[2024-06-21 11:24] LABS: BLOOD UREA NITROGEN 89.2 mg/dL (7-18)
[2024-06-21 11:25] LABS: CREATININE 4.1 mg/dL (0.55-1.3)
[2024-06-21] MEDS: POTASSIUM CHLORIDE ORAL LIQUID 20 MEQ/15 ML PO ONE (13:41)
[2024-06-22 07:57] LABS: BASO % 0.4 % (0-2.0); EOS % 0.1 % (0-4.5); HEMATOCRIT 35.4 % (32.4-45.2); HEMOGLOBIN 11.7 GM/dL (10.7-15.3); LYMPH % 18.8 % (8-40); MCH 32.1 pg (25.7-33.7); MEAN CELL VOLUME 97.3 fl (80-96); MEAN PLT VOLUME 8.2 fl (7.5-11.1); MONO % 6.6 % (3.8-10.2); NEUT % 74.1 % (42.8-82.8); PLATELET COUNT 295 10^3/uL (134-434); RBC 3.64 M/mm3 (3.60-5.2); RDW 14.8 % (11.6-15.6); WHITE BLOOD COUNT 9.4 K/mm3 (4.0-10.0)
[2024-06-22 08:13] LABS: CHLORIDE 96 mmol/L (98-107); POTASSIUM 4.6 mmol/L (3.5-5.1); SODIUM 135 mmol/L (136-145)
[2024-06-22 08:16] LABS: CALCIUM 9.3 mg/dL (8.5-10.1)
[2024-06-22 08:17] LABS: ANION GAP 17 mmol/L (4-13); CO2 22 mmol/L (21-32); GLUCOSE,RANDOM 209 mg/dL (74-106)
[2024-06-22 08:20] LABS: CREATININE 4.6 mg/dL (0.55-1.3)
[2024-06-22 08:22] LABS: BLOOD UREA NITROGEN 124.5 mg/dL (7-18)
[2024-06-22 08:56] VITALS: RESP 18
[2024-06-22] MEDS ORDERED: SODIUM CHLORIDE 250 ML IV PRN (10:28)
[2024-06-22] MEDS: HEPARIN NA (PORCINE) 5,000 UNITS/ML 1ML VIAL IVPUSH ONE (10:39)
[2024-06-22 10:52] VITALS: TEMP 97.8
[2024-06-22 13:55] VITALS: BP 124/74; PULSE 66
== END 2024-06-22 14:47 | disposition home health service (06) | DRG 291 ==
LOC: JER 06:41 → JERBED 09:07 → J4W 10:33
PROVIDERS: ADMIT Internal Medicine; ATTEND Internal Medicine
PROC: 5A1D70Z Performance of Urinary Filtration, Intermittent, Less than 6 Hours Per Day (ICD-10-PCS; principal; 2024-06-15)
PROC: 5A1D70Z Performance of Urinary Filtration, Intermittent, Less than 6 Hours Per Day (ICD-10-PCS; 2024-06-17)
PROC: 5A1D70Z Performance of Urinary Filtration, Intermittent, Less than 6 Hours Per Day (ICD-10-PCS; 2024-06-20)
PROC: 5A1D70Z Performance of Urinary Filtration, Intermittent, Less than 6 Hours Per Day (ICD-10-PCS; 2024-06-22)
DX: I13.2 Hypertensive heart and chronic kidney disease with heart failure and with stage 5 chronic kidney disease, or end stage renal disease (principal); I50.33 Acute on chronic diastolic (congestive) heart failure; N18.6 End stage renal disease; J96.21 Acute and chronic respiratory failure with hypoxia; J96.22 Acute and chronic respiratory failure with hypercapnia; J69.0 Pneumonitis due to inhalation of food and vomit; I69.351 Hemiplegia and hemiparesis following cerebral infarction affecting right dominant side; I48.91 Unspecified atrial fibrillation; E11.22 Type 2 diabetes mellitus with diabetic chronic kidney disease; I25.10 Atherosclerotic heart disease of native coronary artery without angina pectoris; F41.9 Anxiety disorder, unspecified; K21.9 Gastro-esophageal reflux disease without esophagitis; E78.5 Hyperlipidemia, unspecified; F03.90 Unspecified dementia, unspecified severity, without behavioral disturbance, psychotic disturbance, mood disturbance, and anxiety; E11.43 Type 2 diabetes mellitus with diabetic autonomic (poly)neuropathy; K31.84 Gastroparesis; I65.22 Occlusion and stenosis of left carotid artery; M32.9 Systemic lupus erythematosus, unspecified; Z99.81 Dependence on supplemental oxygen; Z95.5 Presence of coronary angioplasty implant and graft; Z86.718 Personal history of other venous thrombosis and embolism; Z95.0 Presence of cardiac pacemaker; Z88.1 Allergy status to other antibiotic agents
CPT/HCPCS: 0241U-QW; 36415; 71045-TC-FY; 80048; 80053; 82803; 82962; 83735; 83880; 84100; 84484; 85025; 85027; 86803; 87081; 87340; 93005; 93010; 93306-TC; 94640; 94660; 94761; 99291; J0131; J1644

== ENCOUNTER 2024-08-03 06:15 | Inpatient (IN) | payer OTHER ==
[2024-08-03 06:44] VITALS: BMI 44.9
[2024-08-03 07:15] LABS: VENOUS BASE EXCESS -1.3 mmol/L (-2-2); VENOUS PCO2 58.8 mmHg (38-52); VENOUS PH 7.27 (7.310-7.410)
[2024-08-03 07:20] LABS: BASO % 0.5 % (0-2.0); EOS % 4.6 % (0-4.5); HEMATOCRIT 34.5 % (32.4-45.2); LYMPH % 20.4 % (8-40); MCHC 31.8 g/dl (32.0-36.0); MEAN CELL VOLUME 103.6 fl (80-96); MEAN PLT VOLUME 7.8 fl (7.5-11.1); MONO % 6.7 % (3.8-10.2); NEUT % 67.8 % (42.8-82.8); PLATELET COUNT 312 10^3/uL (134-434); RBC 3.33 M/mm3 (3.60-5.2); WHITE BLOOD COUNT 6.7 K/mm3 (4.0-10.0)
[2024-08-03 07:33] LABS: POTASSIUM 5.1 mmol/L (3.5-5.1)
[2024-08-03 07:35] LABS: CALCIUM 9.6 mg/dL (8.5-10.1)
[2024-08-03 07:36] LABS: ALBUMIN 3.3 g/dl (3.4-5.0); BLOOD UREA NITROGEN 57.8 mg/dL (7-18); MAGNESIUM 2.2 mg/dL (1.8-2.4)
[2024-08-03 07:38] LABS: INR 1.29 (0.83-1.09); PROTHROMBIN TIME (PATIENT) 14.5 SEC (9.7-13.0)
[2024-08-03 07:39] LABS: CREATININE 4.4 mg/dL (0.55-1.3)
[2024-08-03 07:40] LABS: BILIRUBIN,TOTAL 0.4 mg/dL (0.2-1)
[2024-08-03 07:41] LABS: TOT PROT 7.2 g/dl (6.4-8.2)
[2024-08-03 07:44] LABS: N-TERMINAL BNP 6382.3 pg/ml (5-450)
[2024-08-03] MEDS: dilTIAZem HCL 60 MG TABLET PO ONE (10:31)
[2024-08-03 11:19] LABS: EPI CELLS 4 /uL (0-25.1); HYALINE CASTS 1 /uL (0-3.1); URINE APPEARANCE CLOUDY; URINE BACTERIA >9,000 /uL (0-1359); URINE BILIRUBIN NEGATIVE (NEGATIVE); URINE COLOR YELLOW; URINE GLUCOSE (UA) NEGATIVE (NEGATIVE); URINE KETONE NEGATIVE (NEGATIVE); URINE LEUK ESTERASE 3+ (NEGATIVE); URINE NITRITE POSITIVE (NEGATIVE); URINE PROTEIN 1+ (NEGATIVE); URINE RBC 17 /uL (0-23.9); URINE UROBILINOGEN 0.2 mg/dL (0.2-1.0); URINE WBC 825 /uL (0-25.8)
[2024-08-03] MEDS ORDERED: MEROPENEM 1 GM VIAL (RESTRICTED TO ID) IVPB ONE (12:39)
[2024-08-03] MEDS ORDERED: SODIUM CHLORIDE 250 ML IV PRN ×2 (12:39→15:00)
[2024-08-03] MEDS: MEROPENEM 1 GM in DEXTROSE 5%-WATER 100 ML IVPB ONE (12:44)
[2024-08-03] MEDS: INSULIN ASPART SLIDING SCALE (NOVOLOG) 1 VIAL SQ SCH (17:53)
[2024-08-03] MEDS: ACETAMINOPHEN 1000 MG/100 ML BAG IVPB PRN (19:48)
[2024-08-03] MEDS: ALBUTEROL SO4 2.5/IPRATROPIUM 0.5 INH SOL 3 ML VIAL.NEB. NEB SCH (20:26)
[2024-08-03] MEDS: APIXABAN 2.5 MG TABLET PO SCH (21:04)
[2024-08-03] MEDS: PREGABALIN 50 MG CAPSULE PO SCH (21:05)
[2024-08-03] MEDS: ALPRAZolam 1 MG TABLET PO SCH (21:06)
[2024-08-03] MEDS: BRIMONIDINE TARTRATE 0.2% OPHTHALMIC 5 ML BOTTLE OU SCH (22:30)
[2024-08-04 07:07] LABS: HEMATOCRIT 35.3 % (32.4-45.2); HEMOGLOBIN 11.2 GM/dL (10.7-15.3); MCH 33.2 pg (25.7-33.7); MCHC 31.7 g/dl (32.0-36.0); MEAN CELL VOLUME 104.4 fl (80-96); MEAN PLT VOLUME 7.7 fl (7.5-11.1); PLATELET COUNT 296 10^3/uL (134-434); RBC 3.38 M/mm3 (3.60-5.2); RDW 18.1 % (11.6-15.6); WHITE BLOOD COUNT 6.6 K/mm3 (4.0-10.0)
[2024-08-04 07:27] LABS: POTASSIUM 4.3 mmol/L (3.5-5.1)
[2024-08-04 07:33] LABS: CALCIUM 9.3 mg/dL (8.5-10.1)
[2024-08-04 07:34] LABS: BLOOD UREA NITROGEN 43.4 mg/dL (7-18)
[2024-08-04 07:36] LABS: BILIRUBIN,TOTAL 0.4 mg/dL (0.2-1); TOT PROT 6.6 g/dl (6.4-8.2)
[2024-08-04 07:38] LABS: CREATININE 3.4 mg/dL (0.55-1.3)
[2024-08-04] MEDS: LIPASE/PROTEASE/AMYLASE 36,000 UNIT CAPSULE PO SCH (09:59)
[2024-08-04] MEDS: MEROPENEM 1 GM in DEXTROSE 5%-WATER 100 ML IVPB SCH (09:59)
[2024-08-04] MEDS: TORSEMIDE 100 MG TABLET PO SCH (09:59)
[2024-08-04] MEDS: METOLAZONE 2.5 MG TABLET (FP) PO SCH (10:00)
[2024-08-04] MEDS: ASCORBIC ACID 500 MG TABLET (FP) PO SCH (10:00)
[2024-08-04] MEDS: SIMETHICONE 80 MG TAB.CHEW (FP) PO SCH (10:00)
[2024-08-04] MEDS: TAMSULOSIN HCL 0.4 MG CAP PO SCH (10:01)
[2024-08-04] MEDS: CLOPIDOGREL BISULFATE 75 MG TABLET (FP) PO SCH (10:01)
[2024-08-04] MEDS: CYPROHEPTADINE HCL 4 MG TABLET PO SCH (10:02)
[2024-08-04] MEDS ORDERED: SODIUM CHLORIDE 250 ML IV PRN (10:16)
[2024-08-04] MEDS ORDERED: INSULIN ASPART SLIDING SCALE (NOVOLOG) 1 VIAL SQ ONE ×2 (11:25→16:22)
[2024-08-04] MEDS: ROSUVASTATIN CA 10 MG TABLET PO SCH (21:12)
[2024-08-04] MEDS: LATANOPROST 0.005% OPHTH SOLN 2.5ML BOTTLE OU SCH (21:16)
[2024-08-04] MEDS: INSULIN (LEVEMIR) 100 UNITS/ML UNITS SQ SCH (21:18)
[2024-08-04] MEDS ORDERED: INSULIN (LEVEMIR) 100 UNITS/ML UNITS SQ SCH ×2 (22:00)
[2024-08-04] MEDS: ACETAMINOPHEN 1000 MG/100 ML BAG IVPB ONE (22:12)
[2024-08-05] MEDS ORDERED: INSULIN ASPART SLIDING SCALE (NOVOLOG) 1 VIAL SQ ONE (06:57)
[2024-08-05] MEDS: MEROPENEM 1 GM in DEXTROSE 5%-WATER 100 ML IVPB SCH ×2 (08:22→09:44)
[2024-08-05] MEDS: HEPARIN NA (PORCINE) 5,000 UNITS/ML 1ML VIAL IVPUSH ONE ×2 (08:23→12:03)
[2024-08-05] MEDS: LATANOPROST 0.005% OPHTH SOLN 2.5ML BOTTLE OU SCH (08:23)
[2024-08-05] MEDS: ACETAMINOPHEN 1000 MG/100 ML BAG IVPB PRN ×2 (11:30→18:35)
[2024-08-05] MEDS: AZTREONAM 1 GM in DEXTROSE 5%-WATER - 50 ML IVPB SCH (16:25)
[2024-08-05] MEDS: INSULIN (LEVEMIR) 100 UNITS/ML UNITS SQ SCH (22:05)
[2024-08-06 07:33] LABS: MCH 33.3 pg (25.7-33.7); MCHC 32.4 g/dl (32.0-36.0); MEAN CELL VOLUME 102.6 fl (80-96); PLATELET COUNT 293 10^3/uL (134-434); RBC 3.31 M/mm3 (3.60-5.2); RDW 16.8 % (11.6-15.6); WHITE BLOOD COUNT 5.9 K/mm3 (4.0-10.0)
[2024-08-06 07:52] LABS: POTASSIUM 3.9 mmol/L (3.5-5.1)
[2024-08-06 08:01] LABS: ALBUMIN 2.9 g/dl (3.4-5.0); BLOOD UREA NITROGEN 44.6 mg/dL (7-18); CALCIUM 9.1 mg/dL (8.5-10.1); MAGNESIUM 2.1 mg/dL (1.8-2.4)
[2024-08-06 08:04] LABS: CREATININE 3.8 mg/dL (0.55-1.3)
[2024-08-06 08:06] LABS: BILIRUBIN,TOTAL 0.3 mg/dL (0.2-1); TOT PROT 6.7 g/dl (6.4-8.2)
[2024-08-06] MEDS: TORSEMIDE 100 MG TABLET PO ONE (12:00)
[2024-08-06] MEDS: TORSEMIDE 20 MG TABLET (FP) PO SCH (21:35)
[2024-08-06] MEDS ORDERED: TORSEMIDE 20 MG TABLET (FP) PO SCH (22:00)
[2024-08-07] MEDS: PATIENT'S OWN MEDICATION (NON-FORMULARY) (Linaclotide [Linzess] 290 MCG Capsule) PO SCH (06:16)
[2024-08-07 06:32] LABS: BASO % 0.7 % (0-2.0); EOS % 6.1 % (0-4.5); HEMATOCRIT 33.7 % (32.4-45.2); HEMOGLOBIN 10.8 GM/dL (10.7-15.3); LYMPH % 35.3 % (8-40); MCH 32.8 pg (25.7-33.7); MCHC 31.9 g/dl (32.0-36.0); MEAN CELL VOLUME 102.8 fl (80-96); MEAN PLT VOLUME 8.1 fl (7.5-11.1); MONO % 9.2 % (3.8-10.2); NEUT % 48.7 % (42.8-82.8); PLATELET COUNT 287 10^3/uL (134-434); RBC 3.28 M/mm3 (3.60-5.2); RDW 16.9 % (11.6-15.6); WHITE BLOOD COUNT 5.6 K/mm3 (4.0-10.0)
[2024-08-07 06:40] LABS: POTASSIUM 3.8 mmol/L (3.5-5.1)
[2024-08-07 06:43] LABS: CALCIUM 8.9 mg/dL (8.5-10.1)
[2024-08-07 06:44] LABS: BLOOD UREA NITROGEN 66.6 mg/dL (7-18); MAGNESIUM 1.9 mg/dL (1.8-2.4)
[2024-08-07 06:47] LABS: CREATININE 4.5 mg/dL (0.55-1.3)
[2024-08-07] MEDS ORDERED: SODIUM CHLORIDE 250 ML IV PRN (18:18)
[2024-08-07] MEDS: LIPASE/PROTEASE/AMYLASE 36,000 UNIT CAPSULE PO SCH (18:24)
[2024-08-07] MEDS: ALBUTEROL SO4 2.5/IPRATROPIUM 0.5 INH SOL 3 ML VIAL.NEB. NEB SCH (21:08)
[2024-08-07] MEDS: ROSUVASTATIN CA 10 MG TABLET PO SCH (21:58)
[2024-08-07] MEDS: PREGABALIN 50 MG CAPSULE PO SCH (21:59)
[2024-08-07] MEDS: INSULIN (LEVEMIR) 100 UNITS/ML UNITS SQ SCH (21:59)
[2024-08-07] MEDS: ALPRAZolam 1 MG TABLET PO SCH (21:59)
[2024-08-07] MEDS: APIXABAN 2.5 MG TABLET PO SCH (21:59)
[2024-08-07] MEDS: INSULIN ASPART SLIDING SCALE (NOVOLOG) 1 VIAL SQ SCH (22:01)
[2024-08-07] MEDS: BRIMONIDINE TARTRATE 0.2% OPHTHALMIC 5 ML BOTTLE OU SCH (22:03)
[2024-08-07] MEDS: LATANOPROST 0.005% OPHTH SOLN 2.5ML BOTTLE OU SCH (22:04)
[2024-08-07] MEDS: BACITRACIN ZINC 15 GM TUBE TOPICAL OINTMENT TP SCH (23:05)
[2024-08-08] MEDS ORDERED: PATIENT'S OWN MEDICATION (NON-FORMULARY) (Linaclotide [Linzess] 290 MCG) PO SCH (07:00)
[2024-08-08] MEDS: CLOPIDOGREL BISULFATE 75 MG TABLET (FP) PO SCH (09:03)
[2024-08-08] MEDS: SIMETHICONE 80 MG TAB.CHEW (FP) PO SCH (09:03)
[2024-08-08] MEDS: ASCORBIC ACID 500 MG TABLET (FP) PO SCH (09:03)
[2024-08-08] MEDS: TAMSULOSIN HCL 0.4 MG CAP PO SCH (09:03)
[2024-08-08] MEDS: CYPROHEPTADINE HCL 4 MG TABLET PO SCH (09:04)
[2024-08-08] MEDS: HEPARIN NA (PORCINE) 5,000 UNITS/ML 1ML VIAL IVPUSH ONE (11:30)
[2024-08-08 12:03] LABS: HEMATOCRIT 31.7 % (32.4-45.2); HEMOGLOBIN 10.2 GM/dL (10.7-15.3); MCH 32.7 pg (25.7-33.7); MCHC 32.3 g/dl (32.0-36.0); MEAN PLT VOLUME 7.8 fl (7.5-11.1); PLATELET COUNT 272 10^3/uL (134-434); RBC 3.14 M/mm3 (3.60-5.2); RDW 16.1 % (11.6-15.6); WHITE BLOOD COUNT 4.1 K/mm3 (4.0-10.0)
[2024-08-08] MEDS ORDERED: SODIUM CHLORIDE 250 ML IV PRN (12:05)
[2024-08-08 12:32] LABS: CHLORIDE 100 mmol/L (98-107); SODIUM 139 mmol/L (136-145)
[2024-08-08 12:34] LABS: CALCIUM 8.3 mg/dL (8.5-10.1); GLUCOSE,RANDOM 304 mg/dL (74-106)
[2024-08-08 12:35] LABS: ALBUMIN 2.7 g/dl (3.4-5.0); BLOOD UREA NITROGEN 54.8 mg/dL (7-18); CO2 32 mmol/L (21-32)
[2024-08-08 12:38] LABS: CREATININE 3.3 mg/dL (0.55-1.3); SGOT/AST 14 U/L (15-37); SGPT/ALT 12 U/L (13-61)
[2024-08-08 12:39] LABS: BILIRUBIN,TOTAL 0.2 mg/dL (0.2-1); TOT PROT 6.8 g/dl (6.4-8.2)
[2024-08-08 12:41] LABS: ALK PHOS 82 U/L (45-117)
[2024-08-08 12:50] LABS: ANION GAP 8 mmol/L (4-13); POTASSIUM 2.5 mmol/L (3.5-5.1)
[2024-08-08] MEDS: EPOETIN ALFA-EPBX 3,000 UNIT/ML VIAL SQ ONE (13:49)
[2024-08-08 15:35] VITALS: PULSE 83; RESP 20
[2024-08-08] MEDS: ACETAMINOPHEN 500 MG TABLET (FP) PO ONE (16:33)
[2024-08-08] MEDS: POTASSIUM CHLORIDE ORAL LIQUID 20 MEQ/15 ML PO ONE (16:33)
[2024-08-08] MEDS: AZTREONAM 1 GM in DEXTROSE 5%-WATER - 50 ML IVPB SCH (16:34)
[2024-08-08 16:38] VITALS: BP 149/60; TEMP 98.8
[2024-08-09] MEDS ORDERED: METOLAZONE 2.5 MG TABLET (FP) PO SCH (10:00)
== END 2024-08-08 17:16 | disposition home or self-care (01) | DRG 291 ==
LOC: JER 06:15 → JERBED 08:58 → J2W 17:11 → OBSVTOIN 08-07 13:07 → J7W 08-07 18:12
PROVIDERS: ADMIT Internal Medicine; ATTEND Internal Medicine
PROC: 5A1D70Z Performance of Urinary Filtration, Intermittent, Less than 6 Hours Per Day (ICD-10-PCS; principal; 2024-08-08)
DX: I13.2 Hypertensive heart and chronic kidney disease with heart failure and with stage 5 chronic kidney disease, or end stage renal disease (principal); I50.33 Acute on chronic diastolic (congestive) heart failure; N18.6 End stage renal disease; J96.21 Acute and chronic respiratory failure with hypoxia; N39.0 Urinary tract infection, site not specified; I48.20 Chronic atrial fibrillation, unspecified; E11.9 Type 2 diabetes mellitus without complications; E78.5 Hyperlipidemia, unspecified; Z99.2 Dependence on renal dialysis; B96.20 Unspecified Escherichia coli [E. coli] as the cause of diseases classified elsewhere; F03.90 Unspecified dementia, unspecified severity, without behavioral disturbance, psychotic disturbance, mood disturbance, and anxiety; E87.70 Fluid overload, unspecified
CPT/HCPCS: 0241U-QW; 36415; 70450-TC; 71045-TC-FY; 80048; 80053; 81003; 82803; 82962; 83735; 83880; 84100; 84132; 84484; 85025; 85027; 85610; 85730; 86850; 86900; 86901; 87086; 87186; 87340; 93005; 93010; 94640; 99285-25; G0378; J0131; J1644; J2997; Q5106